=== PATIENT | male | born 1935 | race Caucasian/White ===

== ENCOUNTER 2022-01-18 08:41 | Emergency (ER) | payer OTHER, SELFPAY ==
[2022-01-18 08:52] VITALS: BP 151/90; PULSE 81; RESP 18; TEMP 36.6; O2SAT 95; BMI 35.0
--- NOTE | 2022-01-18 09:52 | ED.GENADULT ---
HPI - General Adult General Chief complaint: Unspecified Complaint, Adult Stated complaint: SPITTING BLOOD UP Time Seen by Provider: 01/18/22 09:27 History of Present Illness HPI narrative: This 86-year-old male comes in reporting spitting up blood at night over the past 3 nights. He states that he also had some episodes of spitting up blood 3 months ago. He did connect with his primary physician and was instructed to come here for evaluation. These symptoms resolved and he did not have any workup done at that time. He states that he feels normal. He denies having any cough and states that this is not hemoptysis but rather coming up from his GI track. He states that he has a mouth full of bright red blood at night. He does not have any such symptoms during the day. He does not take any anticoagulants. He does have an appointment in the [facility] next month. He has not had any weight gain or loss recently. Related Data Home Medications Medication Instructions Recorded Confirmed allopurinol 100 mg tablet mg 01/18/22 pravastatin 40 mg tablet mg 01/18/22 Previous Rx's Medication Instructions Recorded omeprazole 20 mg capsule,delayed 20 mg PO BID #180 caps 12/25/21 release Allergies Allergy/AdvReac Type Severity Reaction Status Date / Time acetaminophen Allergy Verified 01/18/22 08:52 [From Excedrin Extra Strength] aspirin Allergy Verified 01/18/22 08:52 [From Excedrin Extra Strength] caffeine Allergy Verified 01/18/22 08:52 [From Excedrin Extra Strength] Review of Systems Status of ROS: Reports: 10 or more systems reviewed and unremarkable except as noted in History and below Narrative: Constitutional: No fevers, no weight gain or loss. Eyes: No discharge. No vision changes. HENT: No congestion, no sore throat, no ear pain. Cardiovascular: No chest pain, no palpitations. Respiratory: No shortness of breath, no wheezes, no cough. Gastrointestinal: No abdominal pain, no vomiting, no diarrhea. Spitting up blood as described above. Genitourinary: No dysuria, no hematuria. Musculoskeletal: Normal range of motion. Skin: No rashes, no pruritis. Neurological: No dizziness, weakness, sensory change, speech change. Endo/Heme/Allergies: No bruising. No polydipsia. Pysch: no suicidality, no anxiety, no insomnia. All other systems reviewed and are negative. [facility] Medical History (Updated 01/18/22 @ 13:19 by Travon Abbott MD) GERD (gastroesophageal reflux disease) Exam Narrative: Exam Narrative: Constitutional: Well-developed, well-nourished, no acute distress. HEENT: Normocephalic, atraumatic. Neck: Normal range of motion. Nontender. Supple. Heart: Regular. No murmurs. Normal rate. Intact distal pulses. Lungs: Clear to auscultation. No chest discomfort. No wheezes, rhonchi, or rales. Abdomen: Normal bowel sounds. Nontender. No rebound tenderness. Genitalia: Deferred. Back: No midline tenderness. Normal range of motion. Extremities: Normal range of motion. No injury. Skin: Intact. No rash. Warm. No erythema or pallor. Neurologic: No altered sensation. No weakness. Alert and oriented. Psychiatric: No suicidality. No anxiety or depression. No insomnia. Nursing notes and vitals signs are reviewed. Const: Vital Signs, click to edit/add: Vital Signs - 24 hr 01/18/22 08:52 Temperature 97.9 F Pulse Rate [Left P ulse Oximeter] 81 Respiratory Rate 18 Blood Pressure [Ri ght Upper Arm] 151/90 H Pulse Oximetry 95 Oxygen Delivery Me thod Room Air Course Vital Signs Vital signs: Initial Vital Signs Temperature 97.9 F 01/18/22 08:52 Temperature Source Temporal Artery Scan 01/18/22 08:52 Pulse Rate 81 01/18/22 08:52 Respiratory Rate 18 01/18/22 08:52 Blood Pressure 151/90 H 01/18/22 08:52 Blood Pressure Mean 110 01/18/22 08:52 Blood Pressure Position Sitting 01/18/22 08:52 Pulse Oximetry 95 01/18/22 08:52 Oxygen Delivery Method 01/18/22 08:52 Vital Signs Temperature 97.9 F 01/18/22 08:52 Pulse Rate 81 01/18/22 08:52 Respiratory Rate 18 01/18/22 08:52 Blood Pressure 151/90 H 01/18/22 08:52 Pulse Oximetry 95 01/18/22 08:52 Oxygen Delivery Method 01/18/22 08:52 Temperature 97.9 F 01/18/22 08:52 Pulse Rate 81 01/18/22 08:52 Respiratory Rate 18 01/18/22 08:52 Blood Pressure 151/90 H 01/18/22 08:52 Pulse Oximetry 95 01/18/22 08:52 Oxygen Delivery Method 01/18/22 08:52 Medical Decision Making MDM Narrative Medical decision making narrative: This patient comes in reporting spitting up blood at night over the past 3 nights. He had similar symptoms about 3 months ago which spontaneously resolved. Other than this he feels normal. It is unclear whether the blood that he is spitting up is coming from his GI tract or from his respiratory tract. Lab results returned with normal findings except his D-dimer is elevated at 1.3. He then had a CT scan of his chest with IV contrast. There is no evidence of pulmonary embolism but there are some subtle findings that may represent an adenocarcinoma or malignancy. This could account for his spitting up blood at night. He does have a follow-up appointment with pulmonology at the [facility]. I did also arrange for and endoscopy to be done here. He is okay to return home and understands that he should return if worsening symptoms occur. Lab Data Labs: Lab Results 01/18/22 01/18/22 01/18/22 Range/Units 10:11 10:11 10:11 WBC 5.84 (4.50-11.00) K/uL RBC 4.84 (4.30-5.90) m/uL Hgb 14.6 (13.5-17.5) gm/dL Hct 44.9 (37.0-53.0) % MCV 93 (80-100) fL MCH 30 (26-34) pg MCHC 33 (32-36) gm/dL RDW Coeff of Cricket 14.1 (11.5-15.5) % Plt Count 204 (140-440) K/uL Neut % (Auto) 55.0 (42.0-72.0) % Lymph % (Auto) 29.8 (20-44) % [place] % (Auto) 9.2 (0.0-11.0) % Eos % (Auto) 5.3 (0.0-7.0) % Baso % (Auto) 0.2 (0.0-3.0) % Neut # (Auto) 3.21 (1.7-7.0) K/uL Lymph # (Auto) 1.74 (0.90-2.90) K/uL [place] # (Auto) 0.50 (0.00-0.90) K/UL Eos # (Auto) 0.31 (0.00-0.50) K/uL Baso # (Auto) 0.01 (0.00-0.30) K/uL Abs Immat Gran (auto) 0.03 (0.00-0.30) K/uL INR 1.15 H (0.91-1.10) D-Dimer Quant (PE/DVT) 1.30 H (0.00-0.50) ug/ml Sodium 141 (135-149) mmol/L Potassium 4.8 (3.6-5.1) mmol/L Chloride 108 (96-114) mmol/L Carbon Dioxide 25 (20-32) mmol/L BUN 23 (7-30) mg/dL Creatinine 1.2 (0.5-1.5) mg/dL Estimated Creat Clear 42.75 Estimated GFR 59 ml/min Glucose 109 (60-115) mg/dL Calcium 8.5 (8.4-10.6) mg/dL Total Bilirubin 0.4 (0.1-1.5) mg/dL Direct Bilirubin 0.2 (0.0-0.5) mg/dL AST 30 (12-35) U/L ALT 19 (4-50) U/L Alkaline Phosphatase 97 (40-150) U/L C-Reactive Protein < 0.5 L (0.5-1.0) mg/dL Total Protein 7.9 (6.0-8.3) g/dL Albumin 4.1 (3.3-5.0) g/dL Imaging Data CT scan - chest: Radiologist's impression: 1. No pulmonary embolism. 2. Focal ground-glass opacity in the right middle lobe adjacent to a dilated bronchus is nonspecific and could be inflammatory change, but malignancy such as adenocarcinoma is also possible. Discharge Plan Discharge Clinical Impression: Hemoptysis, unspecified Condition: Unchanged Instructions: Hemoptysis (ED) Additional Instructions: Follow-up for endoscopies. The same day surgery clinic will give a call when this can occur. Follow-up as scheduled with pulmonology at the [facility]. Return if worsening symptoms happen. Prescriptions: No Action pravastatin 40 mg tablet Label Comments: TAKE 1 TABLET BY MOUTH DAILY allopurinol 100 mg tablet Label Comments: TAKE 1 TABLET BY MOUTH DAILY omeprazole 20 mg capsule,delayed release(DR/EC) 20 mg PO BID Qty: 180 3RF Follow Up/Referrals: Gael Damico MD [Primary Care Provider] - Stand Alone Forms: [employer] Info Instructions
[2022-01-18 10:47] LABS: Basophils Absolute Auto 0.01 K/uL (0.00-0.30); Basophils Percent Auto 0.2 % (0.0-3.0); Eosinophils Absolute Auto 0.31 K/uL (0.00-0.50); Eosinophils Percent Auto 5.3 % (0.0-7.0); Hematocrit 44.9 % (37.0-53.0); Hemoglobin* 14.6 gm/dL (13.5-17.5); Immature Granulocytes Abs Auto 0.03 K/uL (0.00-0.30); Lymphocytes Absolute Auto 1.74 K/uL (0.90-2.90); Lymphocytes Percent Auto 29.8 % (20-44); Mean Corpuscular HGB Conc 33 gm/dL (32-36); Mean Corpuscular Hemoglobin 30 pg (26-34); Mean Corpuscular Volume 93 fL (80-100); Monocytes Percent Auto 9.2 % (0.0-11.0); Neutrophils Absolute Auto 3.21 K/uL (1.7-7.0); Platelet Count* 204 K/uL (140-440); RDW Coefficient of Variation % 14.1 % (11.5-15.5); Red Blood Count 4.84 m/uL (4.30-5.90); White Blood Count* 5.84 K/uL (4.50-11.00)
[2022-01-18 10:48] LABS: Slide Review Reflex No
[2022-01-18 11:00] LABS: Albumin* 4.1 g/dL (3.3-5.0); Chloride* 108 mmol/L (96-114); Sodium* 141 mmol/L (135-149)
[2022-01-18 11:01] LABS: Potassium* 4.8 mmol/L (3.6-5.1)
[2022-01-18 11:03] LABS: Carbon Dioxide* 25 mmol/L (20-32); Creatinine* 1.2 mg/dL (0.5-1.5); Est. Creatinine Clearance* 42.75; Estimated Glomerular Filt Rate 59 ml/min
[2022-01-18 11:04] LABS: Alanine Aminotransferase* 19 U/L (4-50); Alkaline Phosphatase* 97 U/L (40-150); Aspartate Amino Transferase* 30 U/L (12-35); Bilirubin Direct* 0.2 mg/dL (0.0-0.5); Bilirubin Total* 0.4 mg/dL (0.1-1.5); Blood Urea Nitrogen* 23 mg/dL (7-30); Calcium* 8.5 mg/dL (8.4-10.6); Glucose* 109 mg/dL (60-115); Total Protein* 7.9 g/dL (6.0-8.3)
[2022-01-18 11:08] LABS: C Reactive Protein* < 0.5 mg/dL (0.5-1.0)
[2022-01-18 11:29] LABS: INR 1.15 (0.91-1.10); Prothrombin Time 15.2 Seconds
--- NOTE | 2022-01-18 11:49 | CRLHL7_ITS ---
For Patients: As a result of the Century Cures Act, medical imaging exams and procedure reports are released immediately into your electronic medical record. You may view this report before your referring provider. If you have questions, please contact your health care provider. INDICATION: Elevated D-dimer, spitting up blood. TECHNIQUE: CT chest PE was acquired with 95 mL Isovue 370 IV contrast. Coronal and sagittal reformats were generated. COMPARISON: None. FINDINGS: Pulmonary arteries: The quality of enhancement of the pulmonary arteries is adequate. No filling defects to suggest pulmonary emboli. No findings of pulmonary artery hypertension. Thyroid: Unremarkable. Thoracic lymph nodes: No enlarged supraclavicular, mediastinal, hilar, or axillary lymph nodes. Calcifications in the hilar and subcarinal regions are probably calcified lymph nodes. Mediastinum and esophagus: Small sliding hiatal hernia. Heart and vasculature: Unremarkable. Lungs: Patchy ground-glass opacity in the right middle lobe lies along a dilated bronchus. No focal consolidations. Calcified granulomas in the left lower lobe. Pleura: Unremarkable. Chest wall: Small focus of fat density in the left pectoralis major muscle is probably an intramuscular lipoma. Upper abdomen: No acute or significant findings. Bones: Unremarkable for age. IMPRESSION: 1. No pulmonary embolism. 2. Focal ground-glass opacity in the right middle lobe adjacent to a dilated bronchus is nonspecific and could be inflammatory change, but malignancy such as adenocarcinoma is also possible. Please note that all CT scans at this facility use dose modulation, iterative reconstruction, and/or weight-based dosing when appropriate to reduce radiation dose to as low as reasonably achievable. Dictated by Blake Taveras MD @ 01/18/2022 12:52:50 PM (Electronically Signed)
[2022-01-18 13:46] VITALS: BP 148/88; PULSE 78; RESP 18; O2SAT 96
== END 2022-01-18 13:50 | disposition home or self-care (01) ==
PROVIDERS: Emergency Provider Emergency Medicine Emergency Medical Services; PCP Family Medicine
DX: R04.2 Hemoptysis (principal)
CPT/HCPCS: 36415; 71260; 80048; 80076; 85025; 85379; 85610; 86140; 99285; Q9967

== ENCOUNTER 2022-01-21 12:13 | Outpatient (CLI) | payer OTHER, MEDICARE, SELFPAY | END 2022-01-21 12:14 | disposition home or self-care (01) | LOC: OP CLINIC 12:14 | PROVIDERS: PCP Family Medicine; Visit Provider Surgery | DX: K31.89 Other diseases of stomach and duodenum (principal); K44.9 Diaphragmatic hernia without obstruction or gangrene | CPT/HCPCS: 43239; 88305; J2250; J3010 ==

== ENCOUNTER 2022-02-19 11:33 | Outpatient (CLI) | payer OTHER, SELFPAY ==
[2022-02-19 13:18] LABS: INR 0.96 (0.91-1.10); Prothrombin Time 13.1 Seconds
[2022-02-19 13:19] LABS: Partial Thromboplastin Time* 36 Seconds (23-33)
--- NOTE | 2022-02-27 15:01 | ONC.NURNOTE ---
Addendum entered by Eileen Encarnacion RN 03/24/22 10:56: Patient called to cancel his appointment with us. Per his provider in [place], a hematology referral is not needed. Per patient, [place] is in contact with Dr. Callaway. Addendum entered by Eileen Encarnacion RN 03/05/22 09:25: LMOM for patient to call our office for an appointment on 03/03/2022 and 03/05/2022. Per Rosina with Dr. Lakhani patient okay to wait until April for hematology appointment. Original Note: Received referal from ENT. Went through information with Dr. Hernandez today and due to her availability, patient would not be seen until April. Looking at [facility] availability, found the same. LM with [facility] to find out if Dr. Callaway is okay with this wait, or if patient should go elsewhere.
== END 2022-02-19 11:34 | disposition home or self-care (01) ==
PROVIDERS: PCP Family Medicine; Visit Provider Otolaryngology
DX: Z00.00 Encounter for general adult medical examination without abnormal findings (principal); R04.2 Hemoptysis
CPT/HCPCS: 85610; 85730

== ENCOUNTER 2022-02-24 12:05 | Outpatient (CLI) | payer OTHER, SELFPAY ==
--- OUTSIDE RECORDS SUMMARY | 2022-02-24 12:15 | XMS_ITS | Encounter Summary ---
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] Procedures MI BRONCH DX W CELL WASH FLUOR MI BRONCHOSCOPY W ALVEOLAR LAVAGE MI BRONCHOSCOPY W BX >=1 SITE BRONCHOSCOPY FLEXIBLE BRONCHOSCOPY FLEXIBLE: BRONCHOALVEOLAR LAVAGE - IMMUNOCOMPROMISED HOST OR NON- IMMUNOCOMPROMISED HOST BRONCHOSCOPY FLEXIBLE: INSPECTION AIRWAY - BIOPS Y VISIBLE LESIONS Referral ID Status Reason Start Date Expiration Date Visits Requ ested Visits Authorized [id number] 1 1 Encounter Details Date Type Department Care Team Description 01/28/2022 Anesthesia Event RST ROMB MAIN OR Coral Harding APRN, GREEN PRIZE PACKER [address] [place] [id number] [facility] Rancho Girard M.D. [address] [place] [id number] [place] [phone] Anesthesia Record Procedure Summary Procedure Name Responsible Anesthesia Start Anesthesia Stop Anesthesiologist Time Time 10:45am appt. Coral Harding APRN, 01/28/22 1004 01/28/22 1032 BRONCHOSCOPY FLEXIBLE. GREEN PRIZE PACKER Events Date Time Event Comment 01/28/2022 1004 An Start Machine/Equipmen t Checked Infection Precautions Foll owed Procedure/Site Verified NPO Sta tus Verified Supine Standard ASA Mon itors Applied 1010 An Induction 1013 Proc Start 1016 An Intubation 1016 Turnover to Proceduralist 1018 Proc Fin 1019 Turnover to ANE Staff 1025 Airway Removal Criteria Met 1025 Extubation/Airway Removed 1027 an stop data 1032 An End I completed my h andoff to the receiving staff during [facility] we 1. Identified the patient 2. Ident ified the responsible provider 3. Revi ewed the pertinent medical history 4. Discussed the surgical course 5. Review ed intra-op anesthesia management and i ssues during anesthesia 6. Set expectati ons for post-procedure period 7. Allowe d opportunity for questions and ac knowledgement of understanding. Name Total fentanyl injection 50 mcg/mL 50 mcg lidocaine 2% (mg) injection 60 mg propofol 10 mg/mL 30 mg propofol 10 mg/mL infusion 26.78 mg ondansetron 4 mg/2 mL injection 4 mg Lactated Ringers Free Drip 200 mL Agents No agents on file. Blood No blood administrations on file. Lines, Drains, and Airways Type Details Placement Removal Peripheral IV Placement Date: 01/28/22; 01/28/22 08 by Chas, 01/28/22 110 by Placement Time: 851; Leann Jacinto, Catheter Size: 20 G; R.N. Orientation: Anterior, Left, Lower; Location: Forearm; Site Prep: Chlorhexidine (Preferred); Technique: Anatomical landmarks; Inserted by: DANA; Insertion Attempts: 1; Removal Date: 01/28/22; Removal Time: 110; Removal Reason: Patient discharged documented in this encounter Social History Tobacco Use Types Packs/Day Years Used Date Smoking Tobacco: Former Cigarettes Quit : 06/15/1989 Smokeless Tobacco: Never Alcohol Use Standard Drinks/Week Comments Yes 3 (1 standard drink = 0.6 oz pure alcoho l) Alcohol Habits Answer Date Recorded How often do you have a drink containing alcohol? 2-4 times a month 02/21/2022 How many drinks containing alcohol do you have on a 1 or 2 02/21/2022 typical day when you are drinking? How often do you have six or more drinks on one Never 02/21/2022 occasion? Comment: Not asked Social Isolation Answer Date Recorded In a typical week, how many times do you More than three kayode es a week 02/21/2022 talk on the phone with family, friends, or neighbors? How often do you get together with friends Twice a week 02/21/2022 or relatives? How often do you attend zoroastrian or Patient refused 2021 scientologist services? Do you belong to any clubs or No 02/21/2022 organizations such as zoroastrian groups, unions, fraternal or athletic groups, or school groups? How often do you attend meetings of the Never 02/21/2022 clubs or organizations you belong to? Are you now , , , 02/21/2022 , never or living with a partner? Physical Activity Answer Date Recorded On average, how many days per week do you engage in moderate to 1 day 02/21/2022 strenuous exercise (like walking fast, running, jogging, dancing, swimming, biking, or other activities that cause a light or heavy sweat)? On average, how many minutes do you engage in exercise at th is 10 min 02/21/2022 level? Stress Answer Date Recorded Do you feel stress - tense, restless, nervous, or Only a lit tle 02/21/2022 anxious, or unable to sleep at night because your mind is troubled all the time - these days? Financial Resource Strain Answer Date Recorded How hard is it for you to pay for the very basics like Not h brandon at all 02/21/2022 food, housing, medical care, and heating? Intimate Partner Violence Answer Date Recorded Within the last year, have you been afraid of your partner o r No 02/21/2022 ex-partner? Within the last year, have you been humiliated or emotionall y No 02/21/2022 abused in other ways by your partner or ex-partner? Within the last year, have you been kicked, hit, slapped, or No 02/21/2022 otherwise physically hurt by your partner or ex-partner? Within the last year, have you been raped or forced to have any No 02/21/2022 kind of sexual activity by your partner or ex-partner? Food Insecurity Answer Date Recorded Within the past 12 months, you worried that your food would Never true 02/21/2022 run out before you got money to buy more. Within the past 12 months, the food you bought just didn't N ever true 02/21/2022 last and you didn't have money to get more. Transportation Needs Answer Date Recorded In the past 12 months, has lack of transportation kept you f rom No 02/21/2022 medical appointments or from getting medications? In the past 12 months, has lack of transportation kept you f rom No 02/21/2022 meetings, work, or getting things needed for daily living? Housing Stability Answer Date Recorded In the last 12 months, was there a time when you were not ab le No 02/21/2022 to pay the mortgage or rent on time? In the last 12 months, how many places have you lived? 1 02/21/2022 In the last 12 months, was there a time when you did not hav e a No 02/21/[address] to [address] or slept in a retirement (including now)? Sex Assigned at Date Recorded Male 02/18/2022 8:06 PM CDT documented as of this encounter OR Notes Anesthesia Postprocedure Evaluation - Coral Harding APRN, CRNA - 01/28/2022 10:36 AM CDT Patient: Zaid Rutledge Procedure Summary Date: 01/28/22 Room / Location: [address] 01 [facility] / [facility] in [place], [place] Anesthesia Start: 1004 Anesthesia Stop: 1032 Procedures: 10:45am appt. BRONCHOSCOPY FLEXIBLE. BRONCHOSCOPY FLEXIBLE, INSPECTION AIRWAY, BIOPSY VISIBLE LESIONS. Diagnosis: Chronic Cough (Chronic Cough [R05.3].) Providers: George Benito M.D. Responsible Provider: Coral Harding APRN, CRNA Anesthesia Type: general ASA Status: 3 Anesthesia Type: general Last vitals Vitals Value Taken Time BP Temp Pulse Resp SpO2 Please reference Vitals flowsheet for most recent vital signs. Anesthesia Post Evaluation Patient Disposition: dismissal Cardiovascular status: hemodynamics (HR & BP) acceptable Respiratory status: patent airway with spontaneous effort Temperature: normothermic Oxygen requirements: room air Level of consciousness: awake Pain score: pain adequately controlled and/or at baseline Post Op nausea/vomiting: none Hydration status: euvolemic Anesthesia Preprocedure Evaluation - Rancho Girard M.D. - 01/28/2022 5:45 AM CDT Preprocedure Anesthesia & H&P Assessment Procedure Summary Date/Time: 01/28/22 0943 Procedures: 10:45am appt. BRONCHOSCOPY FLEXIBLE. BRONCHOSCOPY FLEXIBLE, BRONCHOALVEOLAR LAVAGE - IMMUNOCOMPROMISED HOST VS NON- IMMUNOCOMPROMISED HOST. BRONCHOSCOPY FLEXIBLE, INSPECTION AIRWAY, BIOPSY VISIBLE LESIONS. Diagnosis: Chronic Cough [R05.3] Pre-op diagnosis: Chronic Cough [R05.3]. Location: [place] [address] / [facility] in [place], [place] Providers: George Benito M.D. Pertinent components of the patient's history including current problem list, medical history, surgical history, family history, social history, medications and allergies were reviewed. Present illnessand pre-op diagnosis were confirmed. The planned surgery / procedure was verified with the patient /legal guardian. The patient's general health condition remains unchanged RELEVANT COMORBID CONDITIONS No relevant active problems OBJECTIVE PHYSICAL EXAMINATION Airway (HEENT) Mallampati: III TM Distance: >3 FB Neck ROM: Limited Mouth Opening: >3 cm Upper Lip Bite Test Class: II Facies (pediatrics): normal Cardiovascular Rhythm: Regular Rate: Normal Cardiovascular Assessment: cardiovascular normal Functional Capacity: >4 METS Pulmonary Pulmonary Assessment: Clear General / Constitutional Constitutional Assessment: Generalized obesity General State of Health:: healthy appearing Neurological Normal Dental Normal ASSESSMENT / PLAN ANESTHESIA PLAN ASA: 3 Anesthesia Plan: MAC Patient seen and allergies reviewed; anesthesia plan and risks discussed directly with patient / legal guardian, or through an lang interpreter; patient evaluated and approved for anesthesia / sedation Risks/Benefits/Alternatives of Blood transfusion discussed with patient / legal guardian, including an opportunity to ask questions and/or decline some or all transfusion therapies. The patient / legalguardian consented to the use of all blood products, as deemed medically necessary Approval to Proceed: approved for anesthesia documented in this encounter Plan of Treatment Not on filedocumented as of this encounter Visit Diagnoses Not on filedocumented in this encounter Administered Medications Inactive Administered Medications - up to 3 most recent administrations Medication Order MAR Action Action Date Dose Rate Site fentaNYL injection (SUBLIMAZE) Given 01/28/2022 10:10 AM CDT 50 mcg intravenous, As needed, Starting on Thu01/28/22 at 1010, Anesthesia Intra-op lactated ringers New Bag 01/28/2022 10:04 AM CDT intravenous, Continuous Infusion: Per Instructions PRN, Starting on Thu01/28/22 at 1004, Anesthesia Intra-op lidocaine (PF) (cardiac) injection Given 01/28/2022 10:10 AM CDT 60 mg intravenous, As needed, Starting on Thu01/28/22 at 1010, Anesthesia Intra-op ondansetron (PF) injection (ZOFRAN) Given 01/28/2022 10:17 AM CDT 4 mg intravenous, As needed, Starting on Thu01/28/22 at 1017, Anesthesia Intra-op propofol 10 mg/mL infusion New Bag 01/28/2022 10:09 125 mcg/kg/min 80.325 mL/hr (DIPRIVAN) AM CDT intravenous, Continuous Infusion: Per Instructions PRN, Starting on Thu01/28/22 at 1009, Anesthesia Intra-op propofoL injection (DIPRIVAN) Given 01/28/2022 10:14 AM CDT 30 mg intravenous, As needed, Starting on Thu01/28/22 at 1014, Anesthesia Intra-op documented in this encounter Care Teams Roving Department Supervisor Relationship Specialty Start Date End Date Elsewhere, Pcp PCP - General Internal Medicine 01/22/22 Gael Mcguire Primary Team Training Manager 01/22/22 [facility] documented as of this encounter
--- OUTSIDE RECORDS SUMMARY | 2022-02-24 12:15 | XMS_ITS | Encounter Summary ---
:1935 Author Organization [facility] Address [address] [place] [address] Care Team Providers Name Role Phone Elsewhere, Pcp Primary Care Provider Unavailable Reason for Visit Reason Comments Coughing Up Blood Encounter Details Date Type Department Care Team Description 02/07/2022 Clinical Communication Division of Anuradha, Cough ing Up Blood [facility] [place] [address] [address] [facility] [address] [place] [phone] Social History Tobacco Use Types Packs/Day Years [...] or relatives? How often do you attend mandaen or Patient refused 2021 islam services? Do you belong to any clubs or No 02/21/2022 organizations such as mandaen groups, unions, fraternal or athletic groups, or [...] place to sleep or slept in a prison (including now)? Sex Assigned at Date Recorded Male 02/18/2022 8:06 PM CDT documented as of this encounter Miscellaneous Notes Telephone Encounter - Ramses Betts R.N. - 02/07/2022 8:56 AM CDT Information Discussed Patient called and is coughing up a 1/2 cup of blood in the middle of [place] post bronchoscopy. Recommended they report to the nearest ED. Message to be sent to Anuradha for her review up on her return. PLAN Disposition/Recommendation: recommended to report to the nearest emergency department Information/Education: patient/caller able to teach back Caller agreeable to plan of care: yes The following references were used: nursing clinical judgement Telephone Encounter - Deja Paz - 02/07/2022 8:38 AM CDT Call Message Received Caller: Spouse: Corie Callback: Message: Spouse called and they are traveling to [place]. They are currently in the middle of [place]. Patient is coughing up blood (about 1/2 cup) Had Bronch done on 01/28 and had a little bleeding after, but today is the most he's spit up. No temp. No other pain. Action Requested: Callback ayush please. Wondering if they should turn around and come home or OK to continue travel and what's normal Additional Notes: Dr. Ling on Comp today. Nursing/DOD please call patient and back. CHELA Short /[id number] documented in this encounter Plan of Treatment Not on filedocumented as of this encounter Visit Diagnoses Not on filedocumented in this encounter Care Teams Party Plan Sales Unit Advisor Relationship Specialty Start Date End Date Elsewhere, Pcp PCP - General Internal Medicine 01/22/22 Gael Mcguire Primary Team Quality Auditor 01/22/22 [facility] documented as of this encounter
--- OUTSIDE RECORDS SUMMARY | 2022-02-24 12:15 | XMS_ITS | Encounter Summary ---
:1935 Author Organization [facility] Address [address] [place] [address] Care Team Providers Name Role Phone Elsewhere, Pcp Primary Care Provider Unavailable Reason for Visit Reason Comments Release of Information Encounter Details Date Type Department Care Team Description 02/06/2022 Clinical Communication Division of Katya Ling se of Pulmonary Medicine Hayder Ngo on in [facility] [address] [facility] [address] [place] [phone] Social History Tobacco Use Types Packs/Day Years [...] or relatives? How often do you attend catholic or Patient refused 2021 methodist services? Do you belong to any clubs or No 02/21/2022 organizations such as catholic groups, unions, fraternal or athletic groups, or [...] place to sleep or slept in a chcf (including now)? Sex Assigned at Date Recorded Male 02/18/2022 8:06 PM CDT documented as of this encounter Miscellaneous Notes Telephone Encounter - Fabian Parham - 02/06/2022 4:44 PM CDT Pulmonary Note: Call Message Caller: Family Member: Spouse and patient Preferred contact: Authorized: Yes Message: Patient would like their records and testing sent to Dr. Callaway at [facility]. Elijah Callaway MD [facility] [address] [place] [id number] . Action Requested: Send records from procedures, testing and Additional Notes: See letters tab for release. documented in this encounter Plan of Treatment Not on filedocumented as of this encounter Visit Diagnoses Not on filedocumented in this encounter Care Teams Cement Conveyor Operator Relationship Specialty Start Date End Date Elsewhere, Pcp PCP - General Internal Medicine 01/22/22 Gael Mcguire Primary Team [employer] 01/22/22 [facility] documented as of this encounter
--- OUTSIDE RECORDS SUMMARY | 2022-02-24 12:15 | XMS_ITS | Encounter Summary ---
:1935 Author Organization [facility] Address [address] [place] [address] Care Team Providers Name Role Phone Elsewhere, Pcp Primary Care Provider Unavailable Encounter Details Date Type Department Care Team Description 02/14/2022 Orders Only RST CCM Reagan Ling, [address] [place] [address] [place] [phone] (Wo rk) Social History Tobacco Use Types Packs/Day Years [...] or relatives? How often do you attend gnosticism or Patient refused 2021 hinduism services? Do you belong to any clubs or No 02/21/2022 organizations such as gnosticism groups, unions, fraternal or athletic groups, or [...] place to sleep or slept in a alf (including now)? Sex Assigned at Date Recorded Male 02/18/2022 8:06 PM CDT documented as of this encounter Plan of Treatment Not on filedocumented as of this encounter Visit Diagnoses Not on filedocumented in this encounter Care Teams Maintenance Tech Relationship Specialty Start Date End Date Elsewhere, Pcp PCP - General Internal Medicine 01/22/22 Gael Mcguire Primary Team Manager Real Estate 01/22/22 [facility] documented as of this encounter
--- OUTSIDE RECORDS SUMMARY | 2022-02-24 12:15 | XMS_ITS | Encounter Summary ---
:1935 Author Organization [facility] Address [address] [place] [address] Care Team Providers Name Role Phone Elsewhere, Pcp Primary Care Provider Unavailable Encounter Details Date Type Department Care Team Description 02/14/2022 Orders Only Division of Pulmonary Reagan Ling Ch Cough (Primary Medicine in [facility] [place] [address] [address] [facility] [address] [place] [phone] Social History Tobacco Use Types Packs/Day Years [...] or relatives? How often do you attend mormon or Patient refused 2021 christian services? Do you belong to any clubs or No 02/21/2022 organizations such as mormon groups, unions, fraternal or athletic groups, or [...] place to sleep or slept in a group home (including now)? Sex Assigned at Date Recorded Male 02/18/2022 8:06 PM CDT documented as of this encounter Plan of Treatment Not on filedocumented as of this encounter Visit Diagnoses Diagnosis Chronic Cough - Primary documented in this encounter Care Teams Frontend Engineer Relationship Specialty Start Date End Date Elsewhere, Pcp PCP - General Internal Medicine 01/22/22 Gael Mcguire Primary Team Spray Painter 01/22/22 [facility] documented as of this encounter
--- OUTSIDE RECORDS SUMMARY | 2022-02-24 12:15 | XMS_ITS | Encounter Summary ---
:1935 Author Organization [facility] Address [address] [place] [address] Care Team Providers Name Role Phone Elsewhere, Pcp Primary Care Provider Unavailable Reason for Visit Reason Comments Rhinoscopy Encounter Details Date Type Department Care Team Description 02/14/2022 Clinical Communication Division of Pulmonary Reagan Ling Rhinoscopy Medicine in , [facility] [place], [place] [address] [facility] [address] [place] [phone] Social History Tobacco Use Types Packs/Day Years [...] or relatives? How often do you attend sabianist or Patient refused 2021 confucianism services? Do you belong to any clubs or No 02/21/2022 organizations such as sabianist groups, unions, fraternal or athletic groups, or [...] place to sleep or slept in a residential (including now)? Sex Assigned at Date Recorded Male 02/18/2022 8:06 PM CDT documented as of this encounter Miscellaneous Notes Telephone Encounter - Sarwat Burgos - 02/19/2022 11:51 AM CDT Patient had Rhinoscopy done locally today. The notes are being faxed over, I'll let you know when received. noted that nothing was found. She asked if it would be possible to do a virtual visit onWednesday 02/21 instead of them driving down here in person. Telephone Encounter - Sarwat Burgos - 02/18/2022 8:15 AM CDT Patient's called stating the patient was now bleeding from the mouth daily. I did connect her with the front office representative to schedule their rhinoscopy on Wednesday 02/21. They wondered if they might be able tofollow up with you on that same day. They would like to speak with you regarding all of this. . Telephone Encounter - Sarwat Burgos - 02/14/2022 3:46 PM CDT Pulmonary Note: Call Message Caller: Family Member: - Corie Preferred contact: Authorized: No auth on file Diagnosis: #1 Spitting up blood , Query Hemoptysis #2 Chronic Cough #3 Shortness Of Breath Last Appointment: 01/23/22 Message: Patient's called regarding the Rhinoscopy that you requested they do. They cannot finda local doctor to perform the procedure within a reasonable time (booked for weeks). They stated they would like to return to [place] for the procedure. It seems a new order will be needed. They also ask if they might be able to follow up with you. stated patient is still bleeding from the mouth and they would like to have this done ayush. Action Requested: Place order for Rhinoscopy and Follow up, prefer next week anytime. Let schedulingknow when orders are placed. Additional Notes: documented in this encounter Plan of Treatment Not on filedocumented as of this encounter Visit Diagnoses Not on filedocumented in this encounter Care Teams Bi Report Developer Relationship Specialty Start Date End Date Elsewhere, Pcp PCP - General Internal Medicine 01/22/22 Gael Mcguire Primary Team Soda Drier Feeder 01/22/22 [facility] documented as of this encounter
--- OUTSIDE RECORDS SUMMARY | 2022-02-24 12:15 | XMS_ITS | Clinical Summary ---
:1935 Author Organization [facility] Address [address] [place] [address] Care Team Providers Name Role Phone Elsewhere, Pcp Primary Care Provider Unavailable Source Comments Patient records contain information from all sites at [facility]. For routine questions regarding patient records, call [phone] during business hours, M-F 8:00 AM - 5:00 PM Central Time. Record requests for emergency care only can be directed to [phone] at any time.[facility] Allergies Active Allergy Reactions Severity Noted Date Comments Acetaminophen-Caffeine Anaphylaxis 06/21/2007 Exced rin Excedrin Gkvmcds-Dddhehvxcgfqv-P Anaphylaxis High 01/16/2016 affeine Banana Other (see comments) 08/01/2013 Throat swelling, wheezing Also a voids melons, Bee Pollen Other (see comments) 12/31/2020 Itchy w atery eyes, wheezing Food Allergy Formula Edema 12/31/2020 Musk me dejuan, water melon Levofloxacin Other (see comments) 02/26/2018 Hamstri ng tendonitis Mold Shortness of breath High 04/28/2018 [place] Anaphylaxis High 08/28/2017 Watermelon Anaphylaxis High 08/28/2017 Medications Medication Sig Dispensed Refills Start Date End Date Status acetaminophen Take 2 tablets 0 09/18/2010 Active (TYLENOL) 500 mg by mouth. tablet diphenhydrAMINE-acetam Take 2 tablets 0 Active inophen (TYLENOL PM) by mouth at 25-500 mg per tablet bedtime. albuterol 90 Inhale 2 puffs 0 02/09/2014 A ctive mcg/actuation inhaler every 4 (four) hours as needed. allopurinoL (ZYLOPRIM) Take 1 tablet 0 02/23/2012 Active 100 mg tablet by mouth daily. aspirin [address] Take 1 tablet 0 01/04/2021 Active tablet by mouth. cholecalciferol Take 1 capsule 0 12/28/2009 Active (VITAMIN D3) 25 mcg by mouth daily. (1,000 Unit) capsule cyanocobalamin Inject 1,000 0 03/01/2018 A ctive (VITAMIN B12) 1,000 mcg mcg/mL injection intramuscularly . cyanocobalamin Take 1 tablet 0 04/21/2019 Active (VITAMIN B12) 1,000 by mouth daily. mcg tablet docosahexaenoic Take 1 g by 0 Ac tive acid-epa 120-180 mg mouth. capsule dorzolamide (TRUSOPT) 1 drop. 0 09/18/2010 Active 2 % ophthalmic solution fluticasone Inhale 1 puff. 0 09/16/2016 Ac tive propion-salmeteroL (Advair HFA) 45-21 mcg/actuation inhaler fluticasone propionate 1 spray. 0 12/09/2000 Active (FLONASE) 50 mcg/actuation nasal spray fluticasone propionate Inhale 1 puff 2 0 05/29/2011 Active (FLOVENT DISKUS) 100 (two) times a mcg/actuation diskus day. inhaler montelukast Take 10 mg by 0 12/24/2009 Act chris (SINGULAIR) 10 mg mouth. tablet omeprazole (PriLOSEC) TAKE ONE 0 06/30/[address] capsule CAPSULE BY MOUTH TWICE DAILY ONE HOUR BEFORE MEALS pravastatin Take 1 tablet 0 06/13/2021 Act chris (PRAVACHOL) 40 mg by mouth at tablet bedtime. NON FORMULARY Take 1 tablet 0 Ac tive by mouth. Pseudoephedrine -guaiFENesin (MUCINEX D OR) albuterol 0.166 mg/mL Inhale. 0 07/22/2010 Active continuous nebulization vit A/vit C/vit Take by mouth. 0 Active E/zinc/copper (ICAPS AREDS ORAL) ibuprofen Take 400 mg by 0 Activ e (ADVIL,MOTRIN) 400 mg mouth every 6 tablet (six) hours as needed for pain. allopurinoL (ZYLOPRIM) Take by mouth. 0 07/22/2010 Active 100 mg tablet cefdinir (OMNICEF) 300 Take 1 capsule 10 capsule 0 01/31/2022 02/05/2022 mg capsule (300 mg total) by mouth 2 (two) times a day before breakfast and dinner for 5 days. Active Problems Problem Noted Date Chronic Obstructive Pulmonary Disease 01/28/2022 Encounters Date Type Specialty Care Team Description 02/21/2022 Telemedicine Pulmonary Medicine Dionna Ling C anahy Shipman, (Primary Dx) ValentinBKeshavS. 02/14/2022 Orders Only Pulmonary Medicine Dionna Ling C anahy Shipman, (Primary Dx) JoseSKeshav 02/14/2022 Orders Only Critical Care Addis Ling M.B.B.S. 02/14/2022 Clinical Pulmonary Medicine Anuradha, Rhinoscop y Communication Jose NgoS. 02/07/2022 Clinical Pulmonary Medicine Anuradha, Coughing Up Blood Communication Jose NgoS. 02/06/2022 Clinical Pulmonary Medicine Anuradha, Release o f Communication Reagan Shipman, Information JoseS. 01/31/2022 Orders Only Pulmonary Medicine Reagan Ling M.B.B.S. 01/29/2022 Documentation Pulmonary Medicine Reagan Ling M.B.B.S. 01/28/2022 Anesthesia Event Coral Harding APRN, CRNA Weingarten, Toby N, M.D. 01/28/2022 Surgery George Benito, 10:45am appt. Dwain BRONCHOSCOPY FLEXIBLE. 01/28/2022 Hospital Encounter George Benito, Chronic Obstructive Pulmonary Disease (HCC) (Primary Dx); Dwain Chronic Cough Baron Paris M.D. 01/23/2022 Hospital Encounter Cardiovascular Guera Lingne ss Of Breath Disease Jose NgoSKeshav 01/23/2022 Hospital Encounter Laboratory Medicine Alexei Ling ronjose Cough Jose NgoSKeshav 01/23/2022 Comprehensive Visit Pulmonary Medicine Odeyemi, Ch ronic Cough (Primary Dx); Reagan Shipman, Shortness Of Br gaviota HansonBKeshavSKeshav 01/23/2022 Clinical Pulmonary Medicine JIMMY Ling st Communication Jose NgoSKeshav 01/22/2022 Clinical Admitting/Central Intake Ass essment Communication Scheduling from Last 3 Months Social History Tobacco Use Types Packs/Day Years Used Date Smoking Tobacco: Former Cigarettes Quit : 06/15/1989 Smokeless Tobacco: Never Tobacco Cessation: Counseling Given: Not Answered Alcohol Use Standard Drinks/Week Comments Yes 3 [...] or relatives? How often do you attend hinduism or Patient refused 2021 orthodox services? Do you belong to any clubs or No 02/21/2022 organizations such as hinduism groups, unions, fraternal or athletic groups, or [...] place to sleep or slept in a halfway (including now)? Education Answer Date Recorded What is the highest level of Professional school degree (e.g ., , 02/18/2022 school you have completed or the DDS, DVM, KIMO) highest degree you have received? Sex Assigned at Date Recorded Male 02/18/2022 8:06 PM CDT Last Filed Vital Signs Vital Sign Reading Time Taken Comments Blood Pressure 104/72 01/28/2022 10:45 AM CDT Pulse 70 01/28/2022 11:00 AM CDT Temperature 36.5 ??C (97.7 ??F) 01/28/2022 8:40 AM CDT Respiratory Rate 12 01/28/2022 11:00 AM CDT Oxygen Saturation 96% 01/28/2022 11:00 AM CDT Inhaled Oxygen Concentration - - Weight 107 kg (236 lb 1.8 oz) 01/28/2022 7:58 AM CDT Height 170.2 cm (5' 7) 01/28/2022 7:58 AM CDT Body Mass Index 36.98 01/28/2022 7:58 AM CDT Plan of Treatment Health Maintenance Due Date Last Done Comments DTaP,Tdap,and Td Vaccines (2 - Td 02/27/2021 02/27/2011 or Tdap) Depression Screening (Annual 06/15/2021 PHQ-2) Fall Risk Screen (Annual) 06/15/2021 Influenza Vaccine (#1) 2022 04/09/2021, 05/01/2020, 05/01/2020, Additional history exists Pneumococcal vaccine (65+ years) Completed 03/25/2016, 02/2008, 10/21/1995 Zoster Vaccines Completed 02/26/2018, 11/13/2017, 04/01/2013 COVID-19 Vaccine Completed 12/24/2021, 03/22/2021, 08/06/2020, Additional history exists Medical Devices Implanted Type Area Inorganic Chemical Technician Device Shelf Model / Identifier Expiration Serial / Date Lot Knee Implant Knee Implant Left: Knee Procedures Procedure Name Priority Date/Time Associated Comments Diagnosis BACTERIAL CULTURE, Routine 01/28/2022 10:16 Resul ts for this AEROBIC + SUSC, RESP AM CDT procedu re are in the results section. MYCOBACTERIAL CULTURE, Routine 01/28/2022 10:16 Chronic Cough V AM CDT FUNGAL SMEAR Routine 01/28/2022 10:16 Chronic Cough Results fo r this AM CDT procedure are i n the results section. ACID FAST SMEAR FOR Routine 01/28/2022 10:16 Chronic Cough Res ults for this MYCOBACTERIUM AM CDT procedure are in the results section. FUNGAL CULTURE, Routine 01/28/2022 10:16 Chronic Cough Results for this ROUTINE AM CDT procedure are i n the results section. 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 SARS CORONAVIRUS 2, Routine 01/23/2022 12:53 PM Chronic Cough Results for this MOLECULAR DETECTION, CDT procedu re are in PCR, VARIES the results section. NT-PRO B-TYPE Routine 01/23/2022 12:10 PM Chronic Cough Result s for this NATRIURETIC PEPTIDE CDT procedur e are in (BNP), S the results section. CBC WITHOUT Routine 01/23/2022 12:10 PM Chronic Cough Results for this DIFFERENTIAL, B CDT procedure ar e in the results section. CREATININE WITH EGFR, Routine 01/23/2022 12:10 PM Chronic Coug h Results for this S/P CDT procedure are i n the results section. ECG Routine 01/23/2022 11:43 AM Chronic Cough Results for this CDT procedure are i n the results section. OUTSIDE CT BODY Routine 01/18/2022 12:20 PM Resul ts for this CDT procedure are i n the results section. from Last 3 Months Results (ABNORMAL) Bacterial Culture, Aerobic + Susc, Resp (01/28/2022 10:16 AM CDT) Component Value Ref Test Analysis Performed At [facility] gist Range Method Time Signature Bacterial With upper 01/31/2022 DTL Culture, respiratory/oral 2:39 PM CDT Aerobic, Resp microbiota (A) Bacterial STAPHYLOCOCCUS AUREUS 01/31/2022 DTL Culture, 1+ 2:39 PM CDT Aerobic, Resp (A) Bacterial KLEBSIELLA OXYTOCA/RAOULTELLA ORNITHINOLYTICA/PLANTICOLA 01/31/2022 DTL Culture, 1+ 2:39 PM CDT Aerobic, Resp (A) Specimen (Source) Anatomical Collection Method Collection Time Re ceived Time Location / / Volume Laterality Bronchial Washing 01/28/2022 10:16 08/16/ 2022 AM CDT 10:52 AM CDT Comment: Specimen Source Site: Wash Organism Antibiotic Method Susceptibility Staphylococcus aureus Oxacillin SUSCEPTIBILITY, FRIEDA (MCG/M L) 0.5 mcg/mL: Susceptible Comment: Use oxacillin interpretation to predict results for anti-staphylococcal beta-lac cameron antibiotics (except ceftaroline). Staphylococcus aureus Vancomycin SUSCEPTIBILITY, FRIEDA 1 mcg/ mL: Susceptible (MCG/ML) Staphylococcus aureus Clindamycin SUSCEPTIBILITY, FRIEDA <=0.5 mcg/mL: (MCG/ML) Susceptible Staphylococcus aureus Levofloxacin SUSCEPTIBILITY, FRIEDA <=0.5 mcg/mL: (MCG/ML) Susceptible Comment: Fluoroquinolones have a limi kenyetta role in treatment of staphylococcal infections; c onsult Infectious Diseases if considering usage. Staphylococcus aureus Trimethoprim + SUSCEPTIBILITY, FRIEDA <=0.5/ 9.5 mcg/mL: Sulfamethoxazole (MCG/ML) Susceptible Staphylococcus aureus Minocycline SUSCEPTIBILITY, FRIEDA <=4 mc g/mL: (MCG/ML) Susceptible Staphylococcus aureus Linezolid SUSCEPTIBILITY, FRIEDA <=2 mc g/mL: (MCG/ML) Susceptible Comment: If linezolid tests susceptib le, tedizolid susceptible result s can be inferred. ??However, some or ganisms that test resistant to linezolid may be susceptible to tedizolid. Staphylococcus aureus Rifampin SUSCEPTIBILITY, FRIEDA (MCG/M L) <=0.5 mcg/mL: Susceptible Comment: Rifampin should not be used as monotherapy Staphylococcus aureus Doxycycline SUSCEPTIBILITY, FRIEDA <=4 mc g/mL: (MCG/ML) Susceptible K oxy/R Ampicillin SUSCEPTIBILITY, FRIEDA >16 mcg/mL: ornithin/plant (MCG/ML) Resistant K oxy/R Ampicillin + Sulbactam SUSCEPTIBILITY, FRIEDA <=8/4 mcg/mL: ornithin/plant (MCG/ML) Susceptible K oxy/R Meropenem SUSCEPTIBILITY, FRIEDA <=0.12 mcg/m L: ornithin/plant (MCG/ML) Susceptible K oxy/R Ertapenem SUSCEPTIBILITY, FRIEDA <=0.25 mcg/m L: ornithin/plant (MCG/ML) Susceptible K oxy/R Piperacillin + SUSCEPTIBILITY, FRIEDA <=8/4 mcg/mL : ornithin/plant Tazobactam (MCG/ML) Susceptible K oxy/R Ciprofloxacin SUSCEPTIBILITY, FRIEDA <=0.25 mcg/m L: ornithin/plant (MCG/ML) Susceptible K oxy/R Levofloxacin SUSCEPTIBILITY, FRIEDA <=0.5 mcg/mL : ornithin/plant (MCG/ML) Susceptible K oxy/R Cefazolin SUSCEPTIBILITY, FRIEDA 8 mcg/mL: Re sistant ornithin/plant (MCG/ML) K oxy/R Ceftriaxone SUSCEPTIBILITY, FRIEDA <=1 mcg/mL: ornithin/plant (MCG/ML) Susceptible K oxy/R Ceftazidime SUSCEPTIBILITY, FRIEDA <=4 mcg/mL: ornithin/plant (MCG/ML) Susceptible K oxy/R Cefepime SUSCEPTIBILITY, FRIEDA <=2 mcg/mL: ornithin/plant (MCG/ML) Susceptible K oxy/R Cefdinir SUSCEPTIBILITY, FRIEDA <=1 mcg/mL: ornithin/plant (MCG/ML) Susceptible K oxy/R Amikacin SUSCEPTIBILITY, FRIEDA <=8 mcg/mL: ornithin/plant (MCG/ML) Susceptible K oxy/R Gentamicin SUSCEPTIBILITY, FRIEDA <=1 mcg/mL: ornithin/plant (MCG/ML) Susceptible K oxy/R Tobramycin SUSCEPTIBILITY, FRIEDA <=1 mcg/mL: ornithin/plant (MCG/ML) Susceptible K oxy/R Aztreonam SUSCEPTIBILITY, FRIEDA 8 mcg/mL: ornithin/plant (MCG/ML) Intermediate K oxy/R Trimethoprim + SUSCEPTIBILITY, FRIEDA <=0.5/9.5 mc g/mL: ornithin/plant Sulfamethoxazole (MCG/ML) Susceptible George Benito M.D. LAB MICROBIOLOGY - GENERAL O JOSESITO Performing Organization Address City/[facility] Code Phon e Number [facility] - [address] [place] [address] Laboratories-[address] Fungal Smear (01/28/2022 10:16 AM CDT) P athologist Signature Fungal Smear Negative. 01/28/2022 DT 6:03 PM CDT Specimen (Source) Anatomical Collection Method Collection Time Re ceived Time Location / / Volume Laterality Wash ([place]) 01/28/2022 10:16 AM CDT George Benito M.D. LAB MICROBIOLOGY - GENERAL O [place] Performing Organization Address City/[facility] Phon e Number [facility] - [address] [place] [address] [facility] [address] [facility] Acid Fast Smear For Mycobacterium (01/28/2022 10:16 AM CDT) [facility] Method Time Signature Acid Fast Smear Negative. 01/28/2022 DTL For Mycobacterium 11:04 PM CDT Specimen (Source) Anatomical Collection Method Collection Time Re ceived Time Location / / Volume Laterality Wash ([place]) 01/28/2022 10:16 AM CDT George Benito M.D. LAB MICROBIOLOGY - GENERAL O [place] Performing Organization Address City/[facility]/ZIP Code Phon e Number [facility] - [address] [place], [place] [address] [place] [address] [place], [place] [id number] [place] [address] (ABNORMAL) Fungal Culture, Routine (01/28/2022 10:16 AM CDT) [facility] Method Time Signature Fungal Mixed Fungal 02/20/2022 DTL Culture, Elda (A) 11:35 AM CDT Routine Fungal PENICILLIUM sp 02/20/2022 DTL Culture, Few 11:35 AM CDT Routine (A) Comment: Susceptibility testing is not routinely recommended for this organism. Clinical correlation requ ired. Fungal Culture, Routine YEAST, NOT Cr. neoformans, N OT Cr. gattii and NOT C. auris 02/20/2022 11:35 AM CDT DTL Few (A) Fungal Culture, Routine ACREMONIUM sp 02/20/2022 1 1:35 AM CDT DTL Few (A) Comment: Susceptibility testing is not indicated for all molds. Infectious Diseases consult is required to order mold susceptibility testing. Specimen (Source) Anatomical Collection Method Collection Time Re ceived Time Location / / Volume Laterality Wash ([place]) 01/28/2022 10:16 AM CDT George Benito M.D. LAB MICROBIOLOGY - GENERAL O JOSESITO Performing Organization Address City/State/ZIP Code Phon e Number [facility] - [address] [place], [place] [address] [facility] [place] [address] (TTE) 2D ECHO DOPPLER COLOR (01/23/2022 3:01 PM CDT) [facility] gist Method Time Signature Ejection Fraction 58 MC CV EIMS Mid-Ascending Aorta 40 MC CV EIMS LV Mass Index 92 MC CV EIMS LV End-Diastolic 53 MC CV EIMS Diameter LV End-Systolic 36 MC CV EIMS Diameter MV E Velocity 0.60 MC CV EIMS MV A Velocity 0.90 MC CV EIMS MV E/A 0.67 MC CV EIMS MV e' Velocity 0.04 MC CV EIMS Medial MV e' Velocity 0.07 MC CV EIMS Lateral MV E/e' Medial 15 MC CV EIMS MV E/e' Lateral 8.60 MC CV EIMS Left ventricular 44 MC CV EIMS stroke volume index Cardiac Output 5.89 MC CV EIMS Cardiac Index 2.71 MC CV EIMS LV Interventricular 10 MC CV EIMS Septal Wall Thickness LV Posterior Wall 10 MC CV EIMS Thickness LV Relative Wall 38 MC CV EIMS Thickness TAPSE 16 MC CV EIMS Tricuspid Annular S? 0.11 MC CV EIMS TR Vmax 2.50 MC CV EIMS RA Pressure 5 MC CV EIMS RV Systolic Pressure 30 MC CV EIM S Aortic valve area 3.22 MC CV EIMS Aortic Valve 0.71 MC CV EIMS Dimensionless Index LA Volume Index 30 MC CV EIMS Aortic Valve 1.40 MC CV EIMS Systolic Peak Velocity Anatomical Region Laterality Modality Echocardiography Specimen (Source) Anatomical Collection Method Collection Time Re ceived Time Location / / Volume Laterality 01/23/2022 1:48 PM CDT Impressions 01/23/2022 3:25 PM CDT There are no previous [facility] echocardiograms available for comparison. LEFT VENTRICLE:Normal left ventricular c hamber size. Normal left ventricular geometry. Calculated 2-D linear left ventricular ejection fraction 58%. No regional wall motion abnormalities. Grade 1/3 left ventricular diastolic dysfunction, cons istent with low to normal left ventricular filling p ressure. RIGHT VENTRICLE:Normal right ventricular chamber size. Borderline reduced right ventricular systolic function. Estimated right ventricular systolic pressure 30 mmHg (right atrial pressure of 5 mmHg). ATRIA:Normal left atrial size. Left atri al volume index 30 ml/m2. Normal right atrial size. CARDIAC VALVES:Trileaflet aortic valve. Thickened aortic valve. Mild aortic valve regurgitation. Thickened mitral valve. Calcified mitral annulus. Mild mitral valve regurgitation. Normal pulmonary valve. Mild pulmonary valve regurgitation. Normal tricuspid valve. Mild tricuspid valve re gurgitation. OTHER ECHO FINDINGS:Normal inferior vena cava size with normal inspiratory collapse (>50%). Normal mid ascending aorta diameter of 40 mm. Upper limit of normal of the mid ascending aorta, for age, sex and BSA is 45 mm. Abdominal aorta incompletely visualized. Normal abdominal aorta Doppl er flow pattern. No atrial level shunt by color flow imaging. No intracardiac mass or thrombus, but the left atrial appendage cannot be visualized adequately with transthoracic echo to exclude thrombus in this location. No ??pericardial effusion. For the complete report, see the Order-L evel Documents. Narrative 01/23/2022 3:25 PM CDT For the complete report, see the Order-Level Documents. Final Impressions 1. Normal left ventricular chamber size, no regional wall motion abnormalities, calculated 2-D linear ejection fraction 58%. 2. Grade 1/3 left ventricular diastolic dysfunction, consistent with low to normal left ventricular filling pressure. 3. Normal right ventricular chamber size , borderline reduced systolic function, estimated right ventricular systolic pressure 30 mmHg (right atrial pressure of 5 mmHg). 4. Normal inferior vena cava size with n ormal inspiratory collapse (>50%). 5. Mild aortic valve regurgitation. Mild mitral valve regurgitation. Mild tricuspid valve regurgitation. 6. No ??pericardial effusion. Procedure Note Gael Gaines M.D. - 01/23/2022Formatt ing of this note might be different from the original. For the complete report, see the Order-L evel Documents. Final Impressions 1. Normal left ventricular chamber size, no regional wall motion abnormalities, calculated 2-D linear ejection fraction 58%. 2. Grade 1/3 left ventricular diastolic dysfunction, consistent with low to normal left ventricular filling pressure. 3. Normal right ventricular chamber size , borderline reduced systolic function, estimated right ventricular systolic pressure 30 mmHg (right atrial pressure of 5 mmHg). 4. Normal inferior vena cava size with n ormal inspiratory collapse (>50%). 5. Mild aortic valve regurgitation. Mild mitral valve regurgitation. Mild tricuspid valve regurgitation. 6. No pericardial effusion. Findings There are no previous [facility] echoca rdiograms available for comparison. LEFT VENTRICLE:Normal left ventricular c hamber size. Normal left ventricular geometry. Calculated 2-D linear left ventricular ejection fraction 58%. No regional wall motion abnormalities. Grade 1/3 left ventricular diastolic dysfunction, consi stent with low to normal left ventricular filling pressure. RIGHT VENTRICLE:Normal right ventricular chamber size. Borderline reduced right ventricular systolic function. Estimated right ventricular systolic pressure 30 mmHg (right atrial pressure of 5 mmHg). ATRIA:Normal left atrial size. Left atri al volume index 30 ml/m2. Normal right atrial size. CARDIAC VALVES:Trileaflet aortic valve. Thickened aortic valve. Mild aortic valve regurgitation. Thickened mitral valve. Calcified mitral annulus. Mild mitral valve regurgitation. Normal pulmonary valve. Mild pulmonary valve regurgitation. Normal tr icuspid valve. Mild tricuspid valve regurgitation. OTHER ECHO FINDINGS:Normal inferior vena cava size with normal inspiratory collapse (>50%). Normal mid ascending aorta diameter of 40 mm. Upper limit of normal of the mid ascending aorta, for age, sex and BSA is 45 mm. Abdominal aorta incompletely visualized. Normal abdominal aorta Doppler flow pattern. No atrial level shunt by color flow imaging. No intracardiac mass or thrombus, but the left atrial appendage cannot be visualized adequately with transthoracic echo to ex clude thrombus in this location. No pericardial effusion. For the complete report, see the Order-L evel Documents. [address] CV ECHO PROCEDURES SARS Coronavirus 2, Molecular Detection, PCR, Varies Asymptomatic (01/23/2022 12:53 PM CDT) [facility] Method Time Signature COVID-19, Swab, 01/23/2022 DTL PCR, Source Nasopharynx 4:52 PM CDT COVID-19, Undetected Undetected 01/23/2022 DTL PCR, Result 4:52 PM CDT Comment: SARS-CoV-2 RNA absent. This result does not rule out COVID-19 in the patient, as the sensitivity of the test depends o n the timing of the specimen collection and quality of the specimen. Result should be correlated with patient's history and clinical presentat ion. ----ADDITIONAL INFORMATION---- This RT-PCR test using the Viralize SARS-Co V-2 Assay ( Pigit.) performed on the Viralize Two Module System has received Emergency Use Authorization (EUA) by the U.S. Food and Drug Administration, and is modified from the aerial sprayer's instructions with a bridging study. Performance characteristics were verifie d by [facility] in a manner consistent with CLIA requirements. Visit the CDC website: https://www.cdc.g ov/coronavirus/ for the most recent guidelines on Wong virus testing. Fact Sheet for Healthcare Providers: https://www.fda.gov/media/360473/downloa d Fact Sheet for Patients: https://www.fda.gov/media/412847/downloa d Specimen Anatomical Collection Method Collection Time Receive d Time (Source) Location / / Volume Laterality Varies 01/23/2022 12:53 01/23/2022 1:41 (Nasopharynx) PM CDT PM CDT Reagan GarciaSKeshav LAB MICROBIOLOGY - GENERAL ORDERABLES Performing Organization Address City/[facility] Phon e Number [facility] - [address] [place], [place] [address] [place] [id number] [place] [address] NT-Pro B-Type Natriuretic Peptide (BNP) (01/23/2022 12:10 PM CDT) P athologist Signature NT-Pro BNP 233 <=540 pg/mL 01/23/2022 DT 1:26 PM CDT Comment: NT-proBNP values less than 300 pg/mL hav e a 99% negative predictive value for excluding acute con gestive heart failure. A cutoff of 1200 pg/mL for melba ents with an eGFR<60 yields a diagnostic sensitivity and spec ificity of 89% and 72% for acute congestive heart failure. A diagnostic NT-proBNP cutoff of 1800 pg/mL has been suggested in adults over 75 years of age in the absence of r enal failure. Specimen Anatomical Collection Method Collection Time Receive d Time (Source) Location / / Volume Laterality Blood (Blood, 01/23/2022 12:10 01/23/2022 Venous) PM CDT 12:57 PM CDT Reagan GarciaSKeshav LAB BLOOD ADD-ON Performing Organization Address City/[facility] Phon e Number [facility] - [address] [place], [place] [address] [place], [place] [phone] [place] [address] CBC without Differential (01/23/2022 12:10 PM CDT) P athologist Signature Hemoglobin 14.6 13.2 - 01/23/2022 DTL 16.6 g/dL 12:48 PM CDT Hematocrit 46.1 38.3 - 01/23/2022 DTL 48.6 % 12:48 PM CDT Erythrocytes 4.91 4.35 - 01/23/2022 DTL 5.65 12:48 PM CDT x10(12)/L MCV 93.9 78.2 - 01/23/2022 DTL 97.9 fL 12:48 PM CDT RBC Distrib Width 14.2 11.8 - 01/23/2022 DTL 14.5 % 12:48 PM CDT Platelet Count 216 135 - 317 01/23/2022 DTL x10(9)/L 12:48 PM CDT Leukocytes 6.3 3.4 - 9.6 01/23/2022 DTL x10(9)/L 12:48 PM CDT Specimen Anatomical Collection Method Collection Time Receive d Time (Source) Location / / Volume Laterality Blood (Blood, 01/23/2022 12:10 01/23/2022 Venous) PM CDT 12:[address] LAB BLOOD ADD-ON Performing Organization Address City/State/ZIP Code Phon e Number [facility] [address] [place] [phone] [facility] [place] [address] [address] [facility] (ABNORMAL) Creatinine with Estimated GFR (01/23/2022 12:10 PM CDT) Analysis Performed At Patho logist Time Signature Creatinine 1.51 (H) 0.74 - 01/23/2022 DTL 1.35 mg/dL 1:26 PM CDT eGFR-Non 41 (L) >=60 01/23/2022 DTL Black/ mL/min/BSA 1:26 PM CDT Filipino Comment: ----ADDITIONAL INFORMATION---- Estimated GFR calculated using the 2009 CKD_EPI creatinine equation. eGFR-Black/ 48 (L) >=60 mL/min/BSA 2021 1:26 PM CDT DTL Comment: ----ADDITIONAL INFORMATION---- Estimated GFR calculated using the 2009 CKD_EPI creatinine equation. Specimen Anatomical Collection Method Collection Time Receive d Time (Source) Location / / Volume Laterality Blood (Blood, 01/23/2022 12:10 01/23/2022 Venous) PM CDT 12:57 PM CDT Reagan GarciaSKeshav LAB BLOOD ADD-ON Performing Organization Address City/State/ZIP Code Phon e Number [facility] - [address] [place], [place] [phone] [facility] [place] [address] ECG 12 Lead (01/23/2022 11:43 AM CDT) P athologist Signature Ventricular Rate 70 BPM MUSE ECG/Min UT Interval 144 ms MUSE QRSD Interval 94 ms MUSE QT Interval 406 ms MUSE QTC Interval 438 ms MUSE P [place] 38 degrees MUSE R [place] -4 degrees MUSE T Wave [place] 29 degrees MUSE Specimen Anatomical Collection Method Collection Time Receive d Time (Source) Location / / Volume Laterality 01/23/2022 11:43 01/23/2022 AM CDT 11:44 AM CDT Impressions MUSE - 01/23/2022 11:44 AM CDT Normal sinus rhythm Minimal voltage criteria for LVH, may be normal variant ( R in aVL ) No previous ECGs available Reviewed by GINGER Henson Narrative This result has an attachment that is no t available. Procedure Note Hany James Jr., M.D. - 01/23/2022For matting of this note might be different from the original. IMPRESSION: Normal sinus rhythm Minimal voltage criteria for LVH, may be normal variant ( R in aVL ) No previous ECGs available Reviewed by GINGER Henson Reaagn HansonBKeshavS. ECG ORDERABLES Performing Organization Address City/[facility]/ZIP Code Phon e Number MUSE MUSE NA CT ANGIO CHEST PE PROTOCOL-Outside CT Body (01/18/2022 12:20 PM CDT) Specimen (Source) Anatomical Location Collection Method / Collectio n Time Received Time / Laterality Volume Narrative IIMS - 01/23/2022 11:26 AM CDT This order has been created and auto-finalized to support the import of outside images. If available, original i nterpretation can be found on the Media Tab in Chart Review, in Document V iewer, or as an image in QREADS. If a re-interpretation or overread is re quired please follow defined workflow. ?? Provider Not In System IMG CT PROCEDURES Performing Organization Address City/State/ZIP Code Phon e Number IIMS IIMS NA from Last 3 Months Insurance Payer Benefit Plan / Subscriber ID Effective Phone Address T ype Group Dates Plizy [id number] 2021-Pre [address] Indemnity sent [id number] [id number] (Home) [facility] [address] [phone] Care Teams Bsa Officer Relationship Specialty Start Date End Date Elsewhere, Pcp PCP - General Internal Medicine 01/22/22 Gael Mcguire Primary Team Technical Training Specialist 01/22/22 [facility]
--- OUTSIDE RECORDS SUMMARY | 2022-02-24 12:15 | XMS_ITS | Encounter Summary ---
:1935 Author Organization [facility] Address [address] [place] [address] Care Team Providers Name Role Phone Elsewhere, Pcp Primary Care Provider Unavailable Reason for Visit Outpatient (Routine) - Closed Specialty Diagnoses / Procedures Referred By Contact Refer red To Contact Pulmonary Medicine [facility] [address] [place] [address] Referral ID Status Reason Start Date Expiration Date Visits Requ ested Visits Authorized [id number] Closed 02/18/2022 02/17/2025 1 1 Encounter Details Date Type Department Care Team Description 02/21/2022 Telemedicine Division of Pulmonary Reagan Ling tamikoic Cough (Primary Medicine in , M.B.B.S. Dx) [place], [place] [address] [facility] [address] [place] [phone] Social History Tobacco Use Types Packs/Day Years [...] or relatives? How often do you attend scientologist or Patient refused 2021 sikh services? Do you belong to any clubs or No 02/21/2022 organizations such as scientologist groups, unions, [employer] or athletic groups, or school groups? How [...] place to sleep or slept in a skilled nursing (including now)? Education Answer Date Recorded What is the highest level of Professional school degree (e.g ., , 02/18/2022 school you have completed or the DDS, DVM, KIMO) highest degree you have received? Sex Assigned at Date Recorded Male 02/18/2022 8:06 PM CDT documented as of this encounter Progress Notes Reagan Ling M.B.B.S. - 02/21/2022 3:30 PM CDT Non Qife-bn-Fotn Visit (conducted via zoom) SUBJECTIVE Briefly Zaid Rutledge is a 86 year old male with medical history significant for asthma (controlled on Advair, montelukast), chronic cough, prostate cancer (incidental finding post TURP, on surveillance), GERD (symptoms controlled on omeprazole), vertebrobasilar artery syndrome ,spinal stenosis, basal cell cancer s/p resection and nasal reconstruction in 2005, COVID-19 infection in September 2021 (vaccinated, Paxlovid, no hospitalization) and possible TIA in November 2021 ( Imaging negative, double vision resolved) who presented for evaluation of spitting/coughing up blood since November 12, 2021 on 01/23/2022.Prior EGD locally 01/21/22: pre-pyloric stomach erythema with no evidence of bleeding. Since his last visit, evaluation has included: Bronchoscopy 01/28/22: Blood in posterior oropharynx Rhinolaryngoscopy locally 02/19/22: No obvious bleeding sites seen. Prominent tongue base veins was documented. 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 EGD, bronchoscopy and recent rhinolaryngoscopy without signs of active bleed and hemoglobin stable. Awaiting Coronal sinus CT . If with recurrent symptoms can present locally for repeat rhinolaryngoscopy especially if CT is unrevealing. Did mention, some nasal mucosa dryness was noted on Rhinolaryngoscopy w and I have recommended consideration of Park geranium nasal spray for this. Continue to use Advair for Asthma I personally spent over half of a total 30 minutes in counseling and discussion with the patient andcoordination of care as described above. documented in this encounter Plan of Treatment Not on filedocumented as of this encounter Visit Diagnoses Diagnosis Chronic Cough - Primary documented in this encounter Care Teams Calender Machine Operator Relationship Specialty Start Date End Date Elsewhere, Pcp PCP - General Internal Medicine 01/22/22 Gael Mcguire Primary Team Crystal Report Developer 01/22/22 [facility] documented as of this encounter
--- OUTSIDE RECORDS SUMMARY | 2022-02-24 12:15 | XMS_ITS | Encounter Summary ---
:1935 Author Organization [facility] Address [address] [place] [address] Care Team Providers Name Role Phone Elsewhere, Pcp Primary Care Provider Unavailable Encounter Details Date Type Department Care Team Description 01/29/2022 Documentation Division of Pulmonary Reagan Ling , Medicine in [facility] [address] [facility] [address] [place] [phone] (Wo rk) Social History Tobacco Use Types [...] you attend zoroastrian or Patient refused 2021 holiness services? Do you belong to any clubs [...] place to sleep or slept in a half-way (including now)? Sex Assigned at Date Recorded Male 02/18/2022 8:06 PM CDT documented as of this encounter Progress Notes Reagan Ling M.B.B.S. - 01/29/2022 10:15 AM CDT Called Hand Stitcher and Mrs Rutledge to discuss bronchoscopy findings which was significant for blood in the posterior oropharynx but normal findings in bronchial trees. He experienced episodes of spitting, coughing and vomiting blood yesterday which is better this morning. Bleeding source possibly naso-pharynx. Unfortunately did not have rhinolaryngoscopy done yesterday due to late bronchoscopy.Currently scheduled to see ENT closer to home (more convenient). If symptoms worsen, I have advised to seek urgent/emergent care . Also shared ECHO results , within normal limit mostly , borderline RV dysfunction. documented in this encounter Plan of Treatment Not on filedocumented as of this encounter Visit Diagnoses Not on filedocumented in this encounter Care Teams Tile Molder Hand Relationship Specialty Start Date End Date Elsewhere, Pcp PCP - General Internal Medicine 01/22/22 Gael Mcguire Primary Team Automotive Service Technician 01/22/22 [facility] documented as of this encounter
--- OUTSIDE RECORDS SUMMARY | 2022-02-24 12:15 | XMS_ITS | Encounter Summary ---
:1935 Author Organization [facility] Address [address] [place] [address] Care Team Providers Name Role Phone Elsewhere, Pcp Primary Care Provider Unavailable Encounter Details Date Type Department Care Team Description 01/31/2022 Orders Only Division of Pulmonary Reagan Ling, Medicine in [facility] [address] [facility] [address] [place] [phone] (Wo rk) Social History Tobacco Use Types [...] or relatives? How often do you attend uatsdin or Patient refused 2021 yarsanism services? Do you belong to any clubs or No 02/21/2022 organizations such as uatsdin groups, unions, fraternal or athletic groups, or [...] on filedocumented in this encounter Care Teams Chainstitch Zipper Setter Relationship Specialty Start Date End Date Elsewhere, Pcp PCP - General Internal Medicine 01/22/22 Gael Mcguire Primary Team Rehab Department Manager 01/22/22 [facility] documented as of this encounter
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
--- OUTSIDE RECORDS SUMMARY | 2022-02-24 12:16 | XMS_ITS | Encounter Summary ---
:1935 Author Organization [facility] Address [address] [place] [address] Care Team Providers Name Role Phone Elsewhere, Pcp Primary Care Provider Unavailable Reason for Visit Auth/Cert Specialty Diagnoses / Procedures Referred By Contact Refer red To Contact Diagnoses Chronic Cough Chronic Cough [R05.3] Procedures NJ BRONCH DX W CELL WASH FLUOR NJ BRONCHOSCOPY W ALVEOLAR LAVAGE NJ BRONCHOSCOPY W BX >=1 SITE BRONCHOSCOPY FLEXIBLE BRONCHOSCOPY FLEXIBLE: BRONCHOALVEOLAR LAVAGE - IMMUNOCOMPROMISED HOST OR NON- IMMUNOCOMPROMISED HOST BRONCHOSCOPY FLEXIBLE: INSPECTION AIRWAY - BIOPS Y VISIBLE LESIONS Referral ID Status Reason Start Date Expiration Date Visits Requ ested Visits Authorized [id number] 1 1 Encounter Details Date Type Department Care Team Description 01/28/2022 Surgery RST ROMB MAIN OR George Benito, 10:45am appt. [address] [facility] Dwain [place] [address] 200 [facility] [phone] [place] [address] Social History Tobacco Use Types Packs/Day Years [...] or relatives? How often do you attend muslim or Patient refused 2021 christianity services? Do you belong to any clubs or No 02/21/2022 organizations such as muslim groups, unions, fraternal or athletic groups, or [...] place to sleep or slept in a jail (including now)? Sex Assigned at Date Recorded Male 02/18/2022 8:06 PM CDT documented as of this encounter Last Filed Vital Signs Vital Sign Reading [...] Mass Index 36.98 01/28/2022 7:58 AM CDT documented in this encounter Discharge Instructions AttachmentsThe following attachments cannot be sent through Care Everywhere. Bronchoscopy: Looking at Your Airways (Bahraini)documented in this encounter Medications at Time of Discharge Medication Sig Dispensed Refills Start Date End Date acetaminophen (TYLENOL) 500 Take 2 tablets by 0 0 09/18/2010 mg tablet mouth. allopurinoL (ZYLOPRIM) 100 Take 1 tablet by 0 03/2012 mg tablet mouth daily. cyanocobalamin (VITAMIN B12) Take 1 tablet by 0 1 06/21/2018 1,000 mcg tablet mouth daily. fluticasone Inhale 1 puff. 0 09/16/2016 propion-salmeteroL (Advair HFA) 45-21 mcg/actuation inhaler NON FORMULARY Take 1 tablet by 0 mouth. Pseudoephedrine-gua iFENesin (MUCINEX D OR) omeprazole (PriLOSEC) 20 mg TAKE ONE CAPSULE BY 0 06/30/2011 DR capsule MOUTH TWICE DAILY ONE HOUR BEFORE MEALS albuterol 0.166 mg/mL Inhale. 0 07/22/2010 continuous nebulization albuterol 90 mcg/actuation Inhale 2 puffs 0 02/09 inhaler every 4 (four) hours as needed. allopurinoL (ZYLOPRIM) 100 Take by mouth. 0 07/22 mg tablet aspirin [address] tablet Take 1 tablet by 0 01/04 mouth. cholecalciferol (VITAMIN D3) Take 1 capsule by 0 12/28/2009 25 mcg (1,000 Unit) capsule mouth daily. cyanocobalamin (VITAMIN B12) Inject 1,000 mcg 0 0 03/01/2018 1,000 mcg/mL injection intramuscularly. diphenhydrAMINE-acetaminophe Take 2 tablets by 0 n (TYLENOL PM) 25-500 mg per mouth at bedtime. tablet docosahexaenoic acid-epa Take 1 g by mouth. 0 120-180 mg capsule dorzolamide (TRUSOPT) 2 % 1 drop. 0 09/18/2010 ophthalmic solution fluticasone propionate 1 spray. 0 12/09/2000 (FLONASE) 50 mcg/actuation nasal spray fluticasone propionate Inhale 1 puff 2 0 05/29/20 11 (FLOVENT DISKUS) 100 (two) times a day. mcg/actuation diskus inhaler ibuprofen (ADVIL,MOTRIN) 400 Take 400 mg by 0 mg tablet mouth every 6 (six) hours as needed for pain. montelukast (SINGULAIR) 10 Take 10 mg by 0 2009 mg tablet mouth. pravastatin (PRAVACHOL) 40 Take 1 tablet by 0 mg tablet mouth at bedtime. vit A/vit C/vit Take by mouth. 0 E/zinc/copper (ICAPS AREDS ORAL) documented as of this encounter OR Notes Op Note - George Benito M.D. - 01/28/2022 10:53 AM CDT Done in OR 101, [facility]. 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 INDICATION: Hemoptysis. POST-OPERATIVE DIAGNOSIS Negative bronchoscopy. PROCEDURE: Flexible bronchoscopy. OPERATIVE NOTE NARRATIVE After COVID review, informed consent, procedural pause, intravenous conscious sedation and local anesthesia, inspection of the larynx and trachea revealed no obvious abnormality. There was blood in theposterior oropharynx suggesting an upper airway source. Inspection of the left and right bronchial tree was entirely unremarkable. Washings were collected throughout the exam and sent for AFB and fungal smears with cultures. SPECIMENS: As above. BLEEDING: None. ANESTHESIA: Intravenous conscious sedation with local anesthesia. SURGEON(S): Dwain Dominguez M.D. Faysal K. Al-Ghoula, M.B., B.. TPR: [address] Job ID: [id number] documented in this encounter Plan of Treatment Pending Results Name Type Priority Associated Diagnoses Date/Ti me Mycobacterial Culture Microbiology Routine Chronic Cough 01/28 10:16 AM CDT documented as of this encounter Procedures Procedure Name Priority Date/Time Associated Comments [...] - CDT BIOPSY VISIBLE LESIONS Case Notes SOFA COVER INSPECTOR at 7:29 BRONCHOSCOPY FLEXIBLE 01/28/2022 9:34 AM CDT Chronic C ough Case Notes SOFA COVER INSPECTOR at 7:29 documented in this encounter Results (ABNORMAL) Bacterial Culture, Aerobic + Susc, Resp (01/28/2022 10:16 AM CDT) Component Value Ref Test Analysis Performed At Patholo gist Range Method Time Signature Bacterial With [...] / Volume Laterality Bronchial Washing 01/28/2022 10:16 2021 AM CDT 10:52 AM CDT Comment: Specimen [...] Benito M.D. LAB MICROBIOLOGY - GENERAL O RDALEXA Performing Organization Address City/[facility]/ZIP Code Phon e Number [facility] - [address] [place], [place] [address] [address] [facility] [place], [place] [id number] [place] [address] [address] [facility] Fungal Smear (01/28/2022 10:16 AM CDT) P athologist Signature Fungal Smear Negative. 01/28/2022 DTL 6:03 PM CDT Specimen (Source) Anatomical Collection Method Collection Time Re ceived Time Location / / Volume Laterality Wash (Bronchus) 01/28/2022 10:16 AM CDT George Benito M.D. LAB MICROBIOLOGY - GENERAL O JOSESITO Performing Organization Address City/[facility]/ZIP Code Phon e Number [facility] - [address] [place] [address] 05 [facility] [place] [address] [place] [address] [address] [facility] Acid Fast Smear For Mycobacterium (01/28/2022 10:16 AM CDT) Patholo gist Method Time Signature Acid Fast Smear Negative. 01/28/2022 DTL For Mycobacterium 11:04 PM CDT Specimen (Source) Anatomical Collection Method Collection Time Re ceived Time Location / / Volume Laterality Wash (Bronchus) 01/28/2022 10:16 AM CDT George Benito M.D. LAB MICROBIOLOGY - GENERAL O JOSESITO Performing Organization Address City/[facility]/ZIP Code Phon e Number [facility] - [address] [place] [address] 05 [facility] [address] (ABNORMAL) Fungal Culture, Routine (01/28/2022 10:16 AM CDT) Patholo gist Method Time Signature Fungal Mixed Fungal 02/20/2022 [...] Benito M.D. LAB MICROBIOLOGY - GENERAL O RDERABLES Performing Organization Address City/State/[facility] Code Phon e Number [facility] - [address] [place], [place] [address] [facility] [place] [address] Laboratories-[facility] [address] documented in this encounter Visit Diagnoses Diagnosis Chronic Obstructive Pulmonary Disease (H CC) - Primary Chronic Cough Chronic Cough documented in this encounter Admitting Diagnoses Diagnosis Chronic Obstructive Pulmonary Disease (H CC) documented in this encounter Administered Medications Inactive Administered Medications - up to 3 most recent administrations Medication Order MAR Action Action Date Dose Rate Site benzocaine 20 % external Given 01/28/2022 10:10 AM 1 application Other spray (AMERICAINE) CDT As needed, Starting on Thu01/28/22 at 1010, Intra-Op lidocaine 10 mg/mL (1 %) injection Given 01/28/2022 10:15 AM CDT 15 mL Other (XYLOCAINE) As needed, Starting on Thu01/28/22 at 1010, Intra-Op Given 01/28/2022 10:10 AM CDT 5 mL Othe r documented in this encounter Active and Recently Administered Medications Times are shown in CDT. Continuous Medication Order 01/26/2022 01/27/2022 01/28/2022 lactated ringers 0845 (Due) 20 mL/hr, intravenous, Continuous, Starting on Thu01/28/22 at 08 45, Pre-Op PRN Medication Order 01/26/2022 01/27/2022 01/28/2022 benzocaine 20 % external spray (AMERICAINE) (CANCELED) 1010 (Given - Provider: Valentin Parra, B.Ch. - Comment: oropharynx) As needed, Starting on Thu01/28/22 at 1010, Intra-Op lidocaine 10 mg/mL (1 %) injection (XYLOCAINE) (CANCELED) 1010 (Given - Provider: Valentin Parra, B.Ch. - Comment: oropharynx)1015 (Given - Provider: Valentin Parra, B.Ch. - Comment: bronchus) As needed, Starting on Thu01/28/22 at 1010, Intra-Op documented in this encounter Care Teams Glass Cutter Hand Relationship Specialty Start Date End Date Elsewhere, Pcp PCP - General Internal Medicine 01/22/22 Gael Mcguire Primary Team Electrical Installation Supervisor 01/22/22 [facility] documented as of this encounter
--- OUTSIDE RECORDS SUMMARY | 2022-02-24 12:16 | XMS_ITS | Encounter Summary ---
:1935 Author Organization [facility] Address [address] [place] [address] Care Team Providers Name Role Phone Elsewhere, Pcp Primary Care Provider Unavailable Reason for Referral Outpatient (Routine) - Closed Specialty Diagnoses / Procedures Referred By Contact Refer red To Contact Diagnoses Shortness Of Breath Reagan Ling, [facility] Procedures Echo Transthoracic (TTE) M.B.B.S. [address] [place] [phone] Referral ID Status Reason Start Date Expiration Date Visits Requ ested Visits Authorized [id number] Closed 01/23/2022 01/23/2023 1 1 Reason for Visit Outpatient (Routine) - Closed Specialty Diagnoses / Procedures Referred By Contact Refer red To Contact Diagnoses Shortness Of Breath Reagan Ling [place] Procedures Echo Transthoracic (TTE) M.B.B.S. [place], [place] [phone] Referral ID Status Reason Start Date Expiration Date Visits Requ ested Visits Authorized [id number] Closed 01/23/2022 01/23/2023 1 1 Encounter Details Date Type Department Care Team Description 01/23/2022 Hospital Encounter Department of Odeyemi, Shortnes s Of Breath Cardiovascular Antoni Ngo in [place], MCaitlinB.S. [place] [address] [facility] [address] [place] [phone] Social History Tobacco Use Types Packs/Day Years Used Date Smoking Tobacco: Former Cigarettes Quit : 06/15/1989 Smokeless Tobacco: Never Alcohol Habits Answer Date Recorded How often [...] or relatives? How often do you attend orthodoxy or Patient refused 2021 pentecostal services? Do you belong to any clubs or No 02/21/2022 organizations such as orthodoxy groups, unions, fraternal or athletic groups, or [...] PM CDT documented as of this encounter Medications at Time of Discharge Medication Sig Dispensed Refills Start Date End Date acetaminophen (TYLENOL) 500 Take 2 tablets by 0 0 09/18/2010 mg tablet mouth. albuterol 0.166 mg/mL Inhale. 0 07/22/2010 continuous nebulization albuterol 90 mcg/actuation Inhale 2 puffs 0 02/09 inhaler every 4 (four) hours as needed. allopurinoL (ZYLOPRIM) 100 Take 1 tablet by 0 03/2012 mg tablet mouth daily. allopurinoL (ZYLOPRIM) 100 Take by mouth. 0 07/22 mg tablet aspirin [address] tablet Take 1 tablet by 0 01/04 mouth. cholecalciferol (VITAMIN D3) Take 1 capsule by 0 12/28/2009 25 mcg (1,000 Unit) capsule mouth daily. cyanocobalamin (VITAMIN B12) Take 1 tablet by 0 1 06/21/2018 1,000 mcg tablet mouth daily. cyanocobalamin (VITAMIN B12) Inject 1,000 mcg 0 0 03/01/2018 1,000 mcg/mL injection intramuscularly. diphenhydrAMINE-acetaminophe Take 2 tablets by 0 n (TYLENOL PM) 25-500 mg per mouth at bedtime. tablet docosahexaenoic acid-epa Take 1 g by mouth. 0 120-180 mg capsule dorzolamide (TRUSOPT) 2 % 1 drop. 0 09/18/2010 ophthalmic solution fluticasone Inhale 1 puff. 0 09/16/2016 propion-salmeteroL (Advair HFA) 45-21 mcg/actuation inhaler fluticasone propionate 1 spray. 0 12/09/2000 (FLONASE) 50 mcg/actuation nasal spray fluticasone propionate Inhale 1 puff 2 0 05/29/20 11 (FLOVENT DISKUS) 100 (two) times a day. mcg/actuation diskus inhaler ibuprofen (ADVIL,MOTRIN) 400 Take 400 mg by 0 mg tablet mouth every 6 (six) hours as needed for pain. montelukast (SINGULAIR) 10 Take 10 mg by 0 2009 mg tablet mouth. NON FORMULARY Take 1 tablet by 0 mouth. Pseudoephedrine-gua iFENesin (MUCINEX D OR) omeprazole (PriLOSEC) 20 mg TAKE ONE CAPSULE BY 0 06/30/2011 DR capsule MOUTH TWICE DAILY ONE HOUR BEFORE MEALS pravastatin (PRAVACHOL) 40 Take 1 tablet by 0 mg tablet mouth at bedtime. vit A/vit C/vit Take by mouth. 0 E/zinc/copper (ICAPS AREDS ORAL) documented as of this encounter Plan of Treatment Not on filedocumented as of this encounter Procedures Procedure Name Priority Date/Time Associated Diagnosis Comme nts (TTE) 2D ECHO Routine 01/23/2022 3:01 PM Shortness Of Breath R esults for this DOPPLER COLOR CDT procedure are in the results section. documented in this encounter Results (TTE) 2D ECHO DOPPLER COLOR (01/23/2022 3:01 PM CDT) [facility] Method Time Signature Ejection Fraction 58 MC [...] 3:25 PM CDT There are no previous [facility] echocardiograms available for comparison. LEFT VENTRICLE:Normal left [...] For the complete report, see the [employer] Documents. Narrative 01/23/2022 3:25 PM CDT For [...] original. For the complete report, see the [employer] Documents. Final Impressions 1. Normal left ventricular [...] pericardial effusion. Findings There are no previous [facility] echoca rdiograms available for comparison. LEFT VENTRICLE:Normal [...] evel Documents. [address] CV ECHO PROCEDURES documented in this encounter Visit Diagnoses Diagnosis Shortness Of Breath documented in this encounter Additional Health Concerns Infection Onset Date Last Indicated Resolved Time COVID19 Pending 01/23/2022 01/23/2022 01/23/2022 4:52 PM CDT documented as of this encounter Care Teams Nailer Machine Relationship Specialty Start Date End Date Elsewhere, Pcp PCP - General Internal Medicine 01/22/22 Gael Mcguire Primary Team Hedis Nurse 01/22/22 [facility] documented as of this encounter
--- OUTSIDE RECORDS SUMMARY | 2022-02-24 12:16 | XMS_ITS | Encounter Summary ---
:1935 Author Organization [facility] Address [address] [place] [address] Care Team Providers Name Role Phone Elsewhere, Pcp Primary Care Provider Unavailable Reason for Referral Outpatient (Routine) - Closed Specialty Diagnoses / Procedures Referred By Contact Refer red To Contact Diagnoses Shortness Of Breath Reagan Ling [facility] Procedures Echo Transthoracic (TTE) M.B.B.S. [address] [place], [place] [address] Referral ID Status Reason Start Date Expiration Date Visits Requ ested Visits Authorized [id number] Closed 01/23/2022 01/23/2023 1 1 Outpatient (Routine) - Closed Specialty Diagnoses / Procedures Referred By Contact Refer red To Contact Diagnoses Chronic Cough Reagan Ling M.B.B.S. [facility] Procedures ECG 12 Lead [address] [place] [phone] Referral ID Status Reason Start Date Expiration Date Visits Requ ested Visits Authorized [id number] Closed 01/23/2022 01/23/2023 1 1 Reason for Visit Appointment Request (Routine) - Closed Specialty Diagnoses / Procedures Referred By Contact Refer red To Contact Pulmonary Medicine Diagnoses Hemoptysis Referral ID Status Reason Start Date Expiration Date Visits Requ ested Visits Authorized [id number] Closed 01/17/2022 01/17/2023 1 1 Encounter Details Date Type Department Care Team Description 01/23/2022 Comprehensive Visit Division of Reagan Ling jamar Cough (Primary Dx); Pulmonary Medicine Valentin ShipmanBKeshavS. Shortness Of Breath in [place] [address] [address] [place], [place] [address] [facility] [phone] [place], [place] [phone] (Work) [phone] Social History Tobacco Use Types Packs/Day Years Used Date Smoking Tobacco: Former Cigarettes Quit : 06/15/1989 Smokeless Tobacco: Never Tobacco Cessation: Counseling Given: Not Answered Alcohol Habits Answer Date Recorded How often [...] or relatives? How often do you attend hindu or Patient refused 2021 jew services? Do you belong to any clubs or No 02/21/2022 organizations such as hindu groups, unions, fraternal or athletic groups, or [...] minutes do you engage in exercise at is 10 min 02/21/2022 level? 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 Described specifically spitting up blood, dark red with some clots, estimated 1/4 to a half a cup, about 2-3 times a day (night and day ), unsure about coughing up but clears his throat very often. Since November 12, has had repeated episodes on January 16, , , and . Work up significant for CT scan 01/18/2022, images not available but report indicates patchy ground glass opacity in the right middle lobe with dilated bronchus. EGD 01/21/2022 with hiatal hernia and pre-pyloric stomach erythema with no evidence of bleeding. Endorses shortness of breath in the last 10 month, sleeps with 2 pillows to breathe better and ankleswelling. Denies fever, chills. Uses Tylenol for back pain and rarely prn Ibuprofen. REVIEW OF SYSTEMS REVIEW OF SYSTEMS OBJECTIVE PHYSICAL EXAM Constitutional General: He is not in acute distress. HENT Nose: No congestion. Mouth/Throat: Mouth: Mucous membranes are moist. Cardiovascular Rate and Rhythm: Normal rate. Pulses: Normal pulses. Pulmonary Effort: Pulmonary effort is normal. Breath sounds: No stridor. No wheezing or rales. Abdominal General: There is no distension. Palpations: Abdomen is soft. Tenderness: There is no abdominal tenderness. Musculoskeletal Comments: Bilateral ankle nonpitting edema Neurological General: No focal deficit present. 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 We reviewed allavailable report from outside facilities include CT Chest report and EGD. Following testing have been ordered while we try to retrieve CT images. Will call with results. Current not on any anticoagulation. Orders Placed This Encounter Procedures Bronchoscopy (Adult): Creatinine with Estimated GFR CBC without Differential NT-Pro B-Type Natriuretic Peptide (BNP) ECG 12 Lead Echo Transthoracic (TTE) PUL Rhinolaryngoscopy Note to bronchoscopist: Please perform flexible bronchoscopy with airway inspection for evaluation of possible hemoptysis, biopsy any visible lesion, and perform non-ICH BAL in right middle lobe (CT with patchy ground glass opacities in right middle lobe). I personally spent over half of a total 80 minutes in counseling and discussion with the patient andcoordination of care as described above. documented in this encounter Plan of Treatment Not on filedocumented as of this encounter Results (TTE) 2D ECHO DOPPLER COLOR (01/23/2022 3:01 PM CDT) [facility] Method Time Signature Ejection Fraction 58 [...] 3:25 PM CDT There are no previous [facility] echocardiograms available for comparison. LEFT VENTRICLE:Normal left [...] original. For the complete report, see the Figure 8 [employer] Documents. Final Impressions 1. Normal left ventricular [...] pericardial effusion. Findings There are no previous [facility] echoca rdiograms available for comparison. LEFT VENTRICLE:Normal [...] report, see the Order[employer] Documents. Reagan HansonB.S. CV ECHO PROCEDURES NT-Pro B-Type Natriuretic Peptide (BNP) (01/23/2022 12:10 PM CDT) P athologist Signature NT-Pro BNP 233 <=540 pg/mL 01/23/2022 DTL 1:26 PM CDT Comment: NT-proBNP values less [...] Venous) PM CDT 12:57 PM CDT Reagan HansonB.S. LAB BLOOD ADD-ON Performing Organization Address City/State/ZIP Code Phon e Number [facility] - [address] [place], [place] [address] [facility] [place] [address] Laboratories-[address] CBC without Differential (01/23/2022 12:10 PM CDT) [...] Organization Address City/State/ZIP Code Phon e Number [facility] - [address] [place], [place] [address] [facility] [place] [place] [address] Laboratories-[address] (ABNORMAL) Creatinine with Estimated GFR (01/23/2022 12:10 PM CDT) Analysis Performed At Patho logist Time Signature Creatinine 1.51 (H) 0.74 - 01/23/2022 DTL 1.35 mg/dL 1:26 PM CDT eGFR-Non 41 (L) >=60 01/23/2022 DTL Black/ mL/min/BSA 1:26 PM CDT Omani Comment: ----ADDITIONAL INFORMATION---- Estimated GFR calculated using the 2009 CKD_EPI creatinine equation. eGFR-Black/ 48 (L) >=60 mL/min/BSA 2021 1:26 PM CDT DTL Comment: ----ADDITIONAL INFORMATION---- Estimated GFR calculated using the 2009 CKD_EPI creatinine equation. Specimen Anatomical Collection Method Collection Time Receive d Time (Source) Location / / Volume Laterality Blood (Blood, 01/23/2022 12:10 01/23/2022 Venous) PM CDT 12:57 PM CDT Reagan HansonB.S. LAB BLOOD ADD-ON Performing Organization Address City/[facility] Code Phon e Number [facility] - [address] [place], [place] [address] [facility] [place] [place] [address] Laboratories-[facility] 200 [facility] ECG 12 Lead (01/23/2022 11:43 AM CDT) P athologist Signature Ventricular Rate 70 BPM MUSE ECG/Min NV Interval 144 ms MUSE QRSD Interval 94 ms MUSE QT Interval 406 ms MUSE QTC Interval 438 ms MUSE P [place] 38 degrees MUSE R [place] -4 degrees MUSE T Wave [place] 29 degrees MUSE Specimen Anatomical Collection Method [...] previous ECGs available Reviewed by GINGER Henson Reagan HansonB.S. ECG ORDERABLES Performing Organization Address City/State/ZIP Code Phon e Number MUSE MUSE NA documented in this encounter Visit Diagnoses Diagnosis Chronic Cough - Primary Shortness Of Breath Shortness Of Breath documented in this encounter Care Teams Rn Intensive Care Unit Relationship Specialty Start Date End Date Elsewhere, Pcp PCP - General Internal Medicine 01/22/22 Gael Mcguire Primary Team Shoe Polisher 01/22/22 [facility] documented as of this encounter
--- OUTSIDE RECORDS SUMMARY | 2022-02-24 12:16 | XMS_ITS | Encounter Summary ---
:1935 Author Organization [facility] Address [address] [place] [address] Care Team Providers Name Role Phone Elsewhere, Pcp Primary Care Provider Unavailable Reason for Visit Reason Comments Intake Assessment Encounter Details Date Type Department Care Team Description 01/22/2022 Clinical Communication Visit Review in In take [place], [place] [address] [place] [address] Social History Tobacco Use Types Packs/Day Years Used Date Smoking Tobacco: Never Assessed Alcohol Habits Answer Date Recorded How often [...] you attend gnosticism or Patient refused 2021 denominational services? Do you belong to any clubs [...] place to sleep or slept in a detention (including now)? Sex Assigned at Date Recorded Male 02/18/2022 8:06 PM CDT documented as of this encounter Plan of Treatment Not on filedocumented as of this encounter Visit Diagnoses Not on filedocumented in this encounter Care Teams [employer] Resource Teacher Relationship Specialty Start Date End Date Elsewhere, Pcp PCP - General Internal Medicine 01/22/22 Gael Mcguire Primary Team Reporter Anchor 01/22/22 [facility] documented as of this encounter
--- OUTSIDE RECORDS SUMMARY | 2022-02-24 12:16 | XMS_ITS | Encounter Summary ---
:1935 Author Organization [facility] Address [address] [place] [address] Care Team Providers Name Role Phone Elsewhere, Pcp Primary Care Provider Unavailable Reason for Visit Reason Comments OSM Request Encounter Details Date Type Department Care Team Description 01/23/2022 Clinical Communication Division of Pulmonary Reagan Ling OSM Request Medicine in [facility] [place], [place] [address] [facility] [address] [place] [phone] Social History Tobacco Use Types Packs/Day Years [...] or relatives? How often do you attend religious or Patient refused 2021 roman catholic services? Do you belong to any clubs or No 02/21/2022 organizations such as religious groups, unions, fraternal or athletic groups, or [...] Notes Telephone Encounter - Sarwat Burgos - 01/27/2022 8:26 AM CDT Images in Qreads. Telephone Encounter - Sarwat Burgos - 01/23/2022 11:06 AM CDT Pulmonary Note: Outside Materials Request Facility: [facility] Fax: n/a Requested Records: CT Chest 01/18, CT Chest September To be delivered by: Electronic Push Additional Notes: ok documented in this encounter Plan of Treatment Not on filedocumented as of this encounter Visit Diagnoses Not on filedocumented in this encounter Additional Health Concerns Infection Onset Date Last Indicated Resolved Time COVID19 Pending 01/23/2022 01/23/2022 01/23/2022 4:52 PM CDT documented as of this encounter Care Teams Surgical Tech Relationship Specialty Start Date End Date Elsewhere, Pcp PCP - General Internal Medicine 01/22/22 Gael Mcguire Primary Team Exercise Physiologist Certified 01/22/22 [facility] documented as of this encounter
--- OUTSIDE RECORDS SUMMARY | 2022-02-24 12:16 | XMS_ITS | Encounter Summary ---
:1935 Author Organization [facility] Address [address] [place] [address] Care Team Providers Name Role Phone Unavailable Primary Care Provider Unavailable Encounter Details Date Type Department Care Team Description 06/21/2007 Hospital Encounter [facility] Michaela Hare P.A. [address] [place] [address] (Wo rk) Social History Tobacco Use Types [...] or relatives? How often do you attend holiness or Patient refused 2021 baptist services? Do you belong to any clubs or No 02/21/2022 organizations such as holiness groups, unions, fraternal or athletic groups, or [...] place to sleep or slept in a senior living (including now)? Sex Assigned at Date Recorded Male 02/18/2022 8:06 PM CDT documented as of this encounter Medications at Time of Discharge Medication Sig Dispensed Refills Start Date End Date fluticasone propionate (FLONASE) 50 1 spray. 0 12/09/2000 mcg/actuation nasal spray documented as of this encounter Plan of Treatment Not on filedocumented as of this encounter Visit Diagnoses Not on filedocumented in this encounter
--- OUTSIDE RECORDS SUMMARY | 2022-02-24 12:16 | XMS_ITS | Encounter Summary ---
:1935 Author Organization [facility] Address [address] [place] [address] Care Team Providers Name Role Phone Unavailable Primary Care Provider Unavailable Encounter Details Date Type Department Care Team Description 06/21/2007 Hospital Encounter [facility]X [facility] Natalie Goodman M.D. Social History Tobacco Use Types Packs/Day Years [...] or relatives? How often do you attend anabaptism or Patient refused 2021 rastafari services? Do you belong to any clubs or No 02/21/2022 organizations such as anabaptism groups, unions, fraternal or athletic groups, or [...]
--- OUTSIDE RECORDS SUMMARY | 2022-02-24 12:16 | XMS_ITS | Encounter Summary ---
:1935 Author Organization [facility] Address [address] [place] [address] Care Team Providers Name Role Phone Elsewhere, Pcp Primary Care Provider Unavailable Reason for Visit Auth/Cert Specialty Diagnoses / Procedures Referred By Contact Refer red To Contact Diagnoses Chronic Cough Chronic Cough [R05.3] Procedures ID BRONCH DX W CELL WASH FLUOR ID BRONCHOSCOPY W ALVEOLAR LAVAGE ID BRONCHOSCOPY W BX >=1 SITE BRONCHOSCOPY FLEXIBLE BRONCHOSCOPY FLEXIBLE: BRONCHOALVEOLAR LAVAGE - IMMUNOCOMPROMISED HOST OR NON- IMMUNOCOMPROMISED HOST BRONCHOSCOPY FLEXIBLE: INSPECTION AIRWAY - BIOPS Y VISIBLE LESIONS Referral ID Status Reason Start Date Expiration Date Visits Requ ested Visits Authorized [id number] 1 1 Encounter Details Date Type Department Care Team Description 01/28/2022 Hospital Encounter [facility] George Benito M.D. [address] [place] [phone] Chronic Obstructive Pulmonary Disease (H CC) (Primary Dx); [address] [facility] Baron Paris M.D. [address] [place] [address] [place] [phone] Social History Tobacco Use Types Packs/Day Years [...] or relatives? How often do you attend buddhist or Patient refused 2021 sabianist services? Do you belong to any clubs or No 02/21/2022 organizations such as buddhist groups, unions, fraternal or athletic groups, or [...] place to sleep or slept in a mcc (including now)? Sex Assigned at Date Recorded [...] Care Everywhere. Bronchoscopy: Looking at Your Airways (Zambian)documented in this encounter Medications at Time of [...] 01/28/2022 10:53 AM CDT Done in [facility]. 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 INDICATION: Hemoptysis. [...] George Benito M.D. CT CT Job ID: [id number] documented in this encounter Plan of Treatment [...] - CDT BIOPSY VISIBLE LESIONS Case Notes BROKE BEATER at 7:29 BRONCHOSCOPY FLEXIBLE 01/28/2022 9:34 AM CDT Chronic C ough Case Notes BROKE BEATER at 7:29 documented in this encounter Results [...] Organization Address City/State/ZIP Code Phon e Number [facility] - [address] [place], [place] [address] [facility] [place] [address] [facility] [address] [facility] Fungal Smear (01/28/2022 10:16 AM CDT) P athologist Signature Fungal Smear Negative. 01/28/2022 DTL 6:03 PM CDT Specimen (Source) Anatomical Collection Method Collection Time Re ceived Time Location / / Volume Laterality Wash (Bronchus) 01/28/2022 10:16 AM CDT George Benito M.D. LAB MICROBIOLOGY - GENERAL O JOSESITO Performing Organization Address City/State/ZIP Code Phon e Number [facility] - [address] [place], [place] [address] [facility] [place] [address] [facility] [address] [facility] Acid Fast Smear For Mycobacterium (01/28/2022 10:16 AM CDT) Patholo gist Method Time Signature Acid Fast Smear Negative. 01/28/2022 DTL For Mycobacterium 11:04 PM CDT Specimen (Source) Anatomical Collection Method Collection Time Re ceived Time Location / / Volume Laterality Wash (Bronchus) 01/28/2022 10:16 AM CDT George Benito M.D. LAB MICROBIOLOGY - GENERAL O [place] Performing Organization Address City/State/ZIP Code Phon e Number [facility] - [address] [place], [place] [address] [facility] [place] [address] [facility] [address] (ABNORMAL) Fungal Culture, Routine (01/28/2022 10:16 AM CDT) [facility] gist Method Time Signature Fungal Mixed Fungal [...] - GENERAL O RDERABLES Performing Organization Address City/State/ZIP Code Phon e Number [facility] - [address] [place], [place] [address] [facility] [place] [address] [facility] [address] documented in this encounter Visit Diagnoses Diagnosis Chronic Obstructive Pulmonary Disease (H CC) - Primary Chronic Cough documented in this encounter Admitting Diagnoses Diagnosis Chronic Obstructive Pulmonary Disease (H CC) documented in this encounter Administered Medications documented in this encounter Active and Recently [...] Intra-Op documented in this encounter Care Teams Body And Fender Worker Relationship Specialty Start Date End Date Elsewhere, Pcp PCP - General Internal Medicine 01/22/22 Gael Mcguire Primary Team Silver Cleaner 01/22/22 [facility] documented as of this encounter
--- OUTSIDE RECORDS SUMMARY | 2022-02-24 12:16 | XMS_ITS | Encounter Summary ---
:1935 Author Organization [facility] Address [address], [place] [address] Care Team Providers Name Role Phone No Primary/Referring, Phy Primary Care Provider Unavailable Reason for Visit Reason Onset Date Comments Refill 12/18/2021 Omeprazole, allopuri nol Encounter Details Date Type Department Care Team Description 12/18/2021 Refill [facility] Shelly Ott (Omeprazole, [facility], allopurinol) Medicine [address] [place] [address] [address] [place], [place] [phone] Social History Tobacco Use Types Packs/Day Years Used Date Smoking Tobacco: Former Cigarettes Quit : 12/24/1997 Smokeless Tobacco: Never Alcohol Use Standard Drinks/Week Comments Yes 3 (1 standard drink = 0.6 oz pure alcoho l) moderate Alcohol Habits Answer Date Recorded How often do you have a drink containing alcohol? Not asked How many drinks containing alcohol do you have on a typical Not asked day when you are drinking? How often do you have six or more drinks on one occasion? No t asked Comment: moderate 03/25/2012 Food Insecurity Answer Date Recorded Within the past 12 months, you worried that your food would Never true 12/12/2021 run out before you got money to buy more. Within the past 12 months, the food you bought just didn't N ever true 12/12/2021 last and you didn't have money to get more. Sex Assigned at Date Recorded Not on file documented as of this encounter Nursing Notes Katharina Gill - 12/24/2021 3:15 PM CDT Medication Refill - Overdue Visit Called patient, was: Successful in reaching patient Patient is due for: Office Visit [Consultant Nurse: We recently received a refill request for one of your medications. In order to ensure your medication is safe and effective, your clinician needs to see you at least yearly for an office visit. May I help you schedule that office visit?] Patient declined to schedule due to: Patient has moved to [place] and established care with a provider there. This request was sent to us in error. Please disregard. [Consultant Nurse: I will send a request to see if a temporary refill can be provided. Please check with your pharmacy on the status of your refill.] Katharina Gill Please route to: (HP) Care Team Pool/ (PN) Clinician Bayron Bolden - 12/20/2021 11:58 AM CDT Medication Refill - Overdue Visit Called patient, was: Unable to reach patient 1st call attempted. Left message to call back. 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 No PCP. Saw Dr. Solares on 12/26/20 for a pre-op. Pt. Receives home care so unsure about ability to be seen in the clinic. Recently in the hospital ( 12/11/21). Meds last approved by Namrata. ( last visit19 months ago with him). Please call patient to schedule a Office/Video Visit and document using .AMITA. After attemptingto schedule patient: Please route to: Clinician/Care Team Shlomo Requested Prescriptions Pending Prescriptions Disp Refills ??? omeprazole (PRILOSEC) 20 MG capsule 180 Capsule 0 Sig: Take 1 Capsule (20 mg) by mouth two times a day. Take 1 hour before a meal. ??? allopurinol (ZYLOPRIM) 100 MG tablet 90 Tablet 0 Sig: Take 1 Tablet (100 mg) by mouth daily. Michaela Cerda RN 12/19/2021, 10:21 AM Interface, Out Surescripts Prov Query - 12/18/2021 2:54 PM CDT allopurinol (ZYLOPRIM) 100 MG tablet Miscellaneous - 12 Month Visit -> An office visit is overdue (performed over 19 months ago, required every 12 months). Last qualifying visit: 05/21/2020 (with SHELLY OTT) (A more recent visit (in Internal Medicine with ANDRY SOLARES) was found) Next scheduled visit: None Last ordered by SHELLY OTT: 06/13/2021 (188 days ago) QTY: 90, Refills: 0, Sig: take 1 tablet by mouth every day (changed but equivalent) [employer] Embedded Refills, Reference: [id number], 12/18/2021 2:54:21 PM CDT, Shlomo: PETER JEFFERY RN ([id number]) omeprazole (PRILOSEC) 20 MG capsule Miscellaneous - 12 Month Visit -> An office visit is overdue (performed over 19 months ago, required every 12 months). Last qualifying visit: 05/21/2020 (with SHELLY OTT) (A more recent visit (in Internal Medicine with ANDRY SOLARES) was found) Next scheduled visit: None Last ordered by SHELLY OTT: 06/13/2021 (188 days ago) QTY: 180, Refills: 0, Sig: take one capsule by mouth twice daily one hour before meals (changed but equivalent) [employer] Embedded Refills, Reference: [id number], 12/18/2021 2:54:21 PM CDTShlomo: PETER REFILL RN ([id number]) Jimena Arriola CMA - 12/18/2021 2:50 PM CDT omeprazole (PRILOSEC) 20 MG capsule Last date filled: 09/17/21 Qty: 180 Sig: TAKE ONE CAPSULE BY MOUTH TWICE DAILY ONE HOUR BEFORE MEALS allopurinol (ZYLOPRIM) 100 MG tablet Last date filled: 09/17/21 Qty: 90 Si tab daily Jimena Arriola CMA 12/18/2021, 2:50 PM documented in this encounter Plan of Treatment Not on filedocumented as of this encounter Visit Diagnoses Not on filedocumented in this encounter Care Teams Museum Host/Hostess Relationship Specialty Start Date End Date No Primary/Referring, Phy PCP - General 12/11/21 documented as of this encounter
--- OUTSIDE RECORDS SUMMARY | 2022-02-24 12:16 | XMS_ITS | Encounter Summary ---
:1935 Author Organization [facility] Address [address] [place] [address] Care Team Providers Name Role Phone Elsewhere, Pcp Primary Care Provider Unavailable Encounter Details Date Type Department Care Team Description 01/23/2022 Hospital Encounter Department of Reagan Ling C hronic Cough Laboratory Medicine [facility] and Pathology, [address] in [place], [place] [address] [place] [address] [place] [address] Social History Tobacco Use Types Packs/Day Years [...] you attend scientologist or Patient refused 2021 cheondoism services? Do you belong to any clubs or No 02/21/2022 organizations such as scientologist groups, unions, fraternal or athletic groups, or [...] Procedure Name Priority Date/Time Associated Comments Diagnosis NT-PRO B-TYPE Routine 01/23/2022 12:10 Chronic Cough Results f or this NATRIURETIC PEPTIDE PM CDT procedur e are in (BNP), S the results section. CBC WITHOUT Routine 01/23/2022 12:10 Chronic Cough Results fo r this DIFFERENTIAL, B PM CDT procedure ar e in the results section. CREATININE WITH EGFR, Routine 01/23/2022 12:10 Chronic Cough R esults for this S/P PM CDT procedure are i n the results section. documented in this encounter Results NT-Pro B-Type Natriuretic Peptide (BNP) (01/23/2022 12:10 [...] GarciaSKeshav LAB BLOOD ADD-ON Performing Organization Address City/[facility] Phon e Number [facility] - [address] [place], [place] [address] [place] [address] CBC without Differential (01/23/2022 12:10 PM [...] Venous) PM CDT 12:41 PM CDT Reagan GarciaSKeshav LAB BLOOD ADD-ON Performing Organization Address City/[facility] Phon e Number [facility] - [address] [place], [place] [address] [place] [address] (ABNORMAL) Creatinine with Estimated GFR (01/23/2022 12:10 PM CDT) Analysis Performed At Patho logist Time Signature Creatinine 1.51 (H) 0.74 - 01/23/2022 DTL 1.35 mg/dL 1:26 PM CDT eGFR-Non 41 (L) >=60 01/23/2022 DTL Black/ mL/min/BSA 1:26 PM CDT Cambodian Comment: ----ADDITIONAL INFORMATION---- Estimated GFR calculated using the 2009 CKD_EPI creatinine equation. eGFR-Black/ 48 (L) >=60 mL/min/BSA 2021 1:26 PM CDT DTL Comment: ----ADDITIONAL INFORMATION---- Estimated GFR calculated using the 2009 CKD_EPI creatinine equation. Specimen Anatomical Collection Method Collection Time Receive d Time (Source) Location / / Volume Laterality Blood (Blood, 01/23/2022 12:10 01/23/2022 Venous) PM CDT 12:[address] LAB BLOOD ADD-ON Performing Organization Address City/State/ZIP Code Phon e Number [facility] - [address] [place], [place] [address] [facility] [place] [address] Laboratories-[facility] [address] documented in this encounter Visit Diagnoses Diagnosis Chronic Cough documented in this encounter Additional Health Concerns Infection Onset Date Last Indicated Resolved Time COVID19 Pending 01/23/2022 01/23/2022 01/23/2022 4:52 PM CDT documented as of this encounter Care Teams Brand Analyst Relationship Specialty Start Date End Date Elsewhere, Pcp PCP - General Internal Medicine 01/22/22 Gael Mcguire Primary Team Cooky Machine Operator 01/22/22 [facility] documented as of this encounter
--- OUTSIDE RECORDS SUMMARY | 2022-02-24 12:16 | XMS_ITS | Clinical Summary ---
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 Khanna Kami AUGUSTINC LAB_[address] [facility]/ZIP Code Phon e Number [facility] [address] [place] [phone] aPTT (Activated Partial Thromboplastin Time) (12/11/2021 8:02 PM CDT) athologist Signature APTT 35.9 22.5 - 36.5 12/11/2021 [place] Seconds 8:16 PM CDT HOSPITAL LAB Specimen Anatomical Collection Method / Collection Time Recei anisa Time (Source) Location / Volume Laterality Blood Venipuncture / 12/11/2021 8:02 12/11/2021 8:05 Unknown PM CDT PM CDT Nicolette Khanna Kami SINGLETON-C LAB_1 Performing [address] [facility] Phon e Number [facility] [address] [place] [phone] Troponin I (12/11/2021 8:02 PM CDT) athologist Signature Troponin I <0.01 0.00 - 0.03 12/11/2021 [place] ng/mL 8:31 PM CDT HOSPITAL LAB Specimen Anatomical Collection Method / Collection Time Recei anisa Time (Source) Location / Volume Laterality Blood Venipuncture / 12/11/2021 8:02 12/11/2021 8:05 Unknown PM CDT PM CDT Nicolette Khanna Kami SINGLETON-C LAB_1 Performing [address] [facility] Phon e Number [facility] [address] [place] [phone] Hemogram with Platelets (12/11/2021 8:02 PM CDT) athologist Signature WBC 6.5 3.5 - 10.5 12/11/2021 [place] x10(9)/L 8:09 PM CDT [facility]OSPITAL [facility] RBC 4.74 4.32 - 12/11/2021 [place] 5.72 8:09 PM T [facility] x10(12)/L Hemoglobin 14.5 13.5 - 12/11/2021 [place] 17.5 g/dL 8:09 PM T [facility] HCT 43.6 38.8 - 12/11/2021 [place] 50.0 % 8:09 PM CDT [facility] MCV 92.0 80.0 - 12/11/2021 [place] 100.0 fL 8:09 PM CDT [facility] MCH 30.6 27.6 - 12/11/2021 [place] 33.3 pg 8:09 PM CDT [facility] MCHC 33.3 31.5 - 12/11/2021 [place] 35.2 g/dL 8:09 PM T [facility] RDW 13.9 11.9 - 12/11/2021 [place] 15.5 % 8:09 PM T [facility] Platelets 212 150 - 450 12/11/2021 [place] x10(9)/L 8:09 PM T [facility] Automated NRBC 0 <=0 /100 12/11/2021 [place] WBC 8:09 PM T [facility] Specimen Anatomical Collection Method / Collection Time Recei anisa Time (Source) Location / Volume Laterality Blood Venipuncture / 12/11/2021 8:02 12/11/2021 8:05 Unknown PM CDT PM CDT Nicolette Mcclure PA-C LAB_1 Performing Organization Address City/State/ZIP Code Phon e Number [facility] [address] [place] [address] [phone] INR/Protime (PT/INR) (12/11/2021 8:02 PM CDT) P athologist Signature Protime 12.7 11.8 - 14.6 12/11/2021 [place] Seconds 8:16 PM CDT [facility]OSPITAL [facility] INR 1.0 0.9 - 1.1 12/11/2021 [place] 8:16 PM CDT HOSPITAL LAB Specimen Anatomical Collection Method / Collection Time Recei anisa Time (Source) Location / Volume Laterality Blood Venipuncture / 12/11/2021 8:02 12/11/2021 8:05 Unknown PM CDT PM CDT Narrative [facility] - 12/11/2021 8:16 PM CDT Therapeutic range determined by protocol established by anticoagulation provider. Nicolette Mcclure PA-C LAB_1 Performing Organization Address City/State/ZIP Code Phon e Number [facility] [address] [place] [address] from Last 3 Months Insurance Payer Benefit Plan / Subscriber ID Effective Phone Address T ype Group Dates [facility] MEDICARE [id number] 2020-Prese [phone] Medicare ADVANTAGE nt 79 Zaid Rutledge Personal/Family Self 1935 [facility] [place] [id number] Zaid Rutledge Personal/Family Self 1935 [phone] [id number] (Home) [place] [address] Zaid Rutledge Personal/Family Self 1935 [address] [facility] [place] [id number] Zaid Rutledge Personal/Family Self 1935 [address] [place] [id number] Zaid Rutledge Personal/Family Self 1935 [facility] [place] [id number] Zaid Rutledge Personal/Family Self 1935 [facility] [place] [id number] Advance Directives Latest Code Status on File Code Status Date Activated Date Inactivated Comments Full Code 12/12/2021 1:26 AM 12/12/2021 2:19 PM Full Code 12/31/2020 1:24 PM 01/01/2021 2:31 PM Full Code 12/31/2020 11:51 AM 12/31/2020 1:24 PM Full Code 01/16/2016 8:53 PM 01/17/2016 8:49 PM Full Code 10/29/2015 1:22 PM 10/30/2015 3:38 PM Care Teams Bulb Assembler Relationship Specialty Start Date End Date No Primary/Referring, Phy PCP - General 12/11/21
--- OUTSIDE RECORDS SUMMARY | 2022-02-24 12:17 | XMS_ITS | Encounter Summary ---
:1935 Author Organization [employer] Address [address] [address] Care Team Providers Name Role Phone Placido Ott MD Primary Care Provider Reason for Visit Reason Comments FOLLOW-UP,HOSPITAL Encounter Details Date Type Department Care Team Description 01/04/2021 Telephone Med Surg Pat Saini, [facility]LLOW-UP[facility] [address] [place] [address]. [place] [address] [place] [address] [place], [place] [address] Social History Tobacco Use Types Packs/Day Years Used Date Smoking Tobacco: Former Cigarettes Quit : 12/24/1997 Smokeless Tobacco: Never Alcohol Use Standard Drinks/Week Comments Yes 7 (1 standard drink = 0.6 oz pure [...] on file documented as of this encounter Plan of Treatment Not on filedocumented as of this encounter Visit Diagnoses Not on filedocumented in this encounter Care Teams Exhaust Worker Relationship Specialty Start Date End Date Placido Ott MD PCP - General Internal Medicine 10/26/17 10/17/21 [address] [place] [address] documented as of this encounter
--- OUTSIDE RECORDS SUMMARY | 2022-02-24 12:17 | XMS_ITS | Encounter Summary ---
:1935 Author Organization [employer] Address [address] [address] Care Team Providers Name Role Phone Placido Ott MD Primary Care Provider Encounter Details Date Type Department Care Team Description 01/14/2021 Home Care Visit [facility] N Waqas Villalobos, PT PT ROUTINE VISIT [address] [place] [address] [phone] Social History Tobacco Use Types Packs/Day Years [...] on file documented as of this encounter Last Filed Vital Signs Vital Sign Reading Time Taken Comments Blood Pressure 110/60 01/14/2021 3:30 PM CDT Pulse - - Temperature - - Respiratory Rate - - Oxygen Saturation - - Inhaled Oxygen Concentration - - Weight - - Height - - Body Mass Index - - documented in this encounter Miscellaneous Notes Home Health - Waqas Villalobos, PT - 01/14/2021 3:13 PM CDT Homecare Visit Summary Focus of visit: car transfer training and gait training c SEC outside New issues/concerns: patient to see the surgeon's care team tomorrow and Zaid thinks he would like to resume out patient P.T. care but not sure when he can get in to resume P.T. care. He said he would check with the out patient P.T. clinic to see when he could resume care and then call this ghost writer. Assessment/progress toward goals: Being met. Advancing from FWW to SEC . Plan for next visit: will await return call from Zaid to determine when his out patient P.T. care will resume and therefore and if any additional homecare P.T. service will be needed. See Encounter for more details. If Telehealth Visit, did this visit meet the patient's needs per their individualized care plan? Yes/No NA documented in this encounter Plan of Treatment Not on filedocumented as of this encounter Visit Diagnoses Not on filedocumented in this encounter Home Health Visit - Care Plan Visit Details Visit Type - PT Routine Visit Discipline - Physical Therapy Problems Problem Description Start Date Status Goals Interventions Best Practice - Medication 01/03/2021 Active 1 goal linked to 1 g oal Medication Management (Low scheduled/documen in tervention Management (Low risk) kenyetta intervention sky eduled/document Risk) ed in this visi t Disciplines: Chcf, Physical Therapy, Occupational Therapy, Speech Language Pathology, Medical Social Work, Physical Therapy Wound Care Best Practice - Vulnerable Adult 01/03/2021 Active 1 goal linked to 1 goal Vulnerable Adult or Minor scheduled/documen i ntervention or Minor kenyetta intervention scheduled/d ocument Disciplines: ed in this visi t Chcf, Physical Therapy, Occupational Therapy, Speech Language Pathology, Home Health Aide, Medical Social Work, Physical Therapy Wound Care Best Practice - Pain Assessment 01/03/2021 Active 1 goal linked t o 1 goal Pain Assessment and Management scheduled/docume n intervention and Management kenyetta intervention scheduled/d ocument Disciplines: ed in this visi t Chcf, Physical Therapy, Occupational Therapy, Speech Language Pathology, Medical Social Work, Physical Therapy Wound Care Best Practice - Vital Signs 01/03/2021 Active 1 goal linked to 1 goal Vital Signs - Parameters scheduled/documen inte rvention Parameters kenyetta intervention scheduled/d ocument Disciplines: ed in this visi t Chcf, Physical Therapy, Occupational Therapy, Speech Language Pathology, Medical Social Work, Materials Planning Manager, Physical Therapy Wound Care PT Transfer Become more 01/04/2021 Active 1 goal linked to 1 goal Deficit independent to scheduled/documen interven tion Disciplines: decrease kenyetta intervention scheduled/d ocument Physical Therapy, caregiver burden e d in this visit Physical Therapy Wound Care PT Gait Disorder Ambulate safely 01/04/2021 Active 1 goal linked to 1 goal Disciplines: scheduled/documen interventi on Physical Therapy, kenyetta intervention s cheduled/document Physical Therapy ed in th is visit Wound Care Goals Goal Associated Problem Outcome Goal Met? Visit Not es Medication Management (Low Best Practice - No Risk) Medication Management Description: (Low Risk) Verbalizes/demonstrates understanding of medications, including high risk meds, as evidenced by ability to state purpose, dose, effectiveness, potential side effects, special precautions, and storage of meds through the certification period. Vulnerable Adult or Minor Best Practice - No Description: Vulnerable Adult or Be free from verbal, mental, Minor sexual, and physical abuse; including injuries of unknown source neglect and misappropriation of property through the certification period. Pain Assessment and Management Best Practice - Pain No Description: Assessment and Demonstrate effective pain Management management techniques to reduce resting pain to desired goal of 2/10 and pain interfering with activity to daily but not constantly within 4 weeks. Vital Signs Parameters Best Practice - Vital No Description: Signs - Parameters Vital signs within agency parameters through the certification period. Patient Transfer Deficit PT Transfer Deficit No Description: Perform all transfers independently with min UE support and proper form avoiding bending, lifting, or twisting in order to decrease caregiver burden/increase independence within 2 weeks. Patient Gait Disorder PT Gait Disorder No Description: Patient will be able to ambulate on uneven surfaces 300 feet with supervision with least restrictive assistive device with step through gait pattern to improve functional mobility in the community within 2 weeks. Interventions Intervention Associated Status Variance Visit Notes Problem/Goal Assess medications Problem: Best Practice - Medication Management (Low Risk) Comple kenyetta Description: Goal: Medication Management (Low Risk) Assess medications including any high-risk meds for side-effects, drug reactions, interactions, duplicate therapy, omissions, dosage errors, effectiveness, new or changed meds, current ability, knowledge and compliance, storage and disposal. Update medication list. Assess for signs of abuse Problem: Best Practice - Vulnerable Adult or Minor Completed Description: Goal: Vulnerable Adult or Minor Assess for signs of verbal, mental, sexual, and physical abuse; including injuries of unknown source neglect and misappropriation of property. Complete pain assessment. Problem: Best Practice - Pain Assessment and Management Complete d Description: Goal: Pain Assessment and Management Complete verbal/nonverbal pain assessment using a standardized pain tool, including reassessment and the non-physical aspects (emotional, spiritual, cultural) affecting the patient's quality of life. Assess vitals Problem: Best Practice - Vital Signs - Parameters Completed Description: Goal: Vital Signs Parameters Assess vital signs and oxygen sats. Report to MD if outside agency parameters of: Systolic >160 or <100, Diastolic >90 or <50, Temp. >100.5, Resp. >30 or <12, Pulse >100 or <55, and Oxygen sats <89% at rest for more than 5 min. Household transfers Problem: PT Transfer Deficit Completed ins tructed in and Description: Goal: Patient Transfer Deficit f acilitated delivery driver's Assess/monitor/teach side ca r transfer household transfers training c VC for including bed, chair, sit se at positioning and to stand and car body alignm ent . Education for safe Problem: PT Gait Disorder Completed gait training c SEC ambulation Goal: Patient Gait Disorder on l evel and 1 curb Description: style stair outs michell Provide patient/caregiver ho use to garage 90 education for safe ft c VC t o use the ambulation and house for bal assess/monitor support on 1 side understanding and the SEC on the other c VC for sequencing. documented in this encounter Care Teams Bulk Plant Manager Relationship Specialty Start Date End Date Placido Ott MD PCP - General Internal Medicine 10/26/17 10/17/21 [address] [place] [address] documented as of this encounter
--- OUTSIDE RECORDS SUMMARY | 2022-02-24 12:17 | XMS_ITS | Encounter Summary ---
:1935 Author Organization [facility] Address [address] [place] [address] Care Team Providers Name Role Phone Shelly Ott MD Primary Care Provider Reason for Visit Reason Onset Date Comments Refill 10/17/2021 pravastatin (PRAVACH OL) 40 MG tablet Encounter Details Date Type Department Care Team Description 10/17/2021 Refill [facility] Shelly Ott Re fill (pravastatin [place] Spence MD (PRAVACHOL) 40 MG Medicine [address] tablet) [address] [place] [address] [place] [phone] Social History Tobacco Use Types Packs/Day Years [...] documented as of this encounter Nursing Notes Shauna Dawson RN - 10/18/2021 1:20 PM CDT Will deny. Shauna Dawson RN 10/18/2021, 1:21 PM Mere Cee - 10/18/2021 12:11 PM CDT Medication Refill - Overdue Visit Called patient, was: Successful in reaching patient Patient is due for: Office Visit [Ruby Rails Developer: We recently received a refill request for one of your medications. In order to ensure your medication is safe and effective, your clinician needs to see you at least yearly for an office visit. May I help you schedule that office visit?] Patient declined to schedule due to: pt moved down by [facility] he sees a dr Damico now he will have his pharmacy send it to the new provider please disregard [Ruby Rails Developer: I will send a request to see if a temporary refill can be provided. Please check with your pharmacy on the status of your refill.] Mere Cee Please route to: (HP) Care Team Shlomo/ (PN) Clinician Adelaide Rehman RN - 10/17/2021 5:28 PM CDT Further Assistance Needed on Refill from Oven Unloader Patient is overdue for Office visit. Please call patient to schedule a Office/Video Visit and document using .AMITA. After attemptingto schedule patient: Please route to: Clinician/Care Team Pool Requested Prescriptions Pending Prescriptions Disp Refills ??? pravastatin (PRAVACHOL) 40 MG tablet 90 Tablet 0 Sig: Take 1 Tablet (40 mg) by mouth daily. At bedtime Adelaide Rehman RN 10/17/2021, 5:28 PM Interface, Out [employer] Prov Query - 10/17/2021 10:47 AM CDT pravastatin (PRAVACHOL) 40 MG tablet Miscellaneous - 12 Month Visit -> An office visit is overdue (performed over 17 months ago, required every 12 months). Last qualifying visit: 05/21/2020 (with SHELLY OTT) (A more recent visit (in Internal Medicine with ANDRY SOLARES) was found) Next scheduled visit: None Last ordered by SHELLY OTT: 06/13/2021 (126 days ago) QTY: 90, Refills: 0, Sig: take 1 tablet by mouth everyday at bedtime (changed but equivalent) Powered by [employer] Embedded Refills, Reference: [id number], 10/17/2021 10:47:14 AM CDT, Pool: PETER REFILL EULOGIO ([id number]) Mala Sinclair - 10/17/2021 10:46 AM CDT pravastatin (PRAVACHOL) 40 MG tablet LAST FILL: 07/10/2021 QTY: 90 SIG: take 1 tablet by mouth everyday at bedtime Mala Sinclair CMA 10/17/2021 10:46 AM documented in this encounter Plan of Treatment Not on filedocumented as of this encounter Visit Diagnoses Diagnosis Hyperlipidemia, unspecified hyperlipidem ia type ([facility]) documented in this encounter Care Teams Lieutenant Ballistics Relationship Specialty Start Date End Date Shelly Ott MD PCP - General Internal Medicine 10/26/17 10/17/21 [address] [place] [address] documented as of this encounter
--- OUTSIDE RECORDS SUMMARY | 2022-02-24 12:17 | XMS_ITS | Encounter Summary ---
:1935 Author Organization Counts include 234 beds at the [facility] Address [address], [place] [address] Care Team Providers Name Role Phone Placido Ott MD Primary Care Provider Encounter Details Date Type Department Care Team Description 02/13/2021 Lab Visit [facility] Prostate cancer ([facility]) Laboratory [address] [place] [address] Social History Tobacco Use Types Packs/Day Years [...] on file documented as of this encounter Progress Notes Daryn [place], RN - 02/13/2021 10:10 AM CDT Results to be discussed at upcoming appointment. Daryn [place] RN 02/13/2021, 12:34 PM documented in this encounter Plan of Treatment Not on filedocumented as of this encounter Procedures Procedure Name Priority Date/Time Associated Diagnosis Comme nts PROSTATIC SPECIFIC Routine 02/13/2021 10:19 AM Prostate cancer Results for this ANTIGEN (DIAGNOSTIC CDT ([facility]) procedur e are in F/U) the results section. documented in this encounter Results (ABNORMAL) Prostatic Specific Antigen (Diagnostic F/U) (02/13/2021 10:19 AM CDT) P athologist Signature Prostatic 7.7 (H) 0.0 - 4.0 02/13/2021 [place] Specific ng/mL 12:02 PM CDT HOSPITAL LAB Antigen Specimen Anatomical Collection Method / Collection Time Recei anisa Time (Source) Location / Volume Laterality Blood Venipuncture / 02/13/2021 10:19 Unknown AM CDT 10:19 AM CDT Narrative [facility] - 02/13/2021 12:02 PM CDT The Carreon PSA Chemiluminescent immunoas say is used. Results obtained with different test methods or kits cannot be used inte rchangeably. Waqas Rodney MD LAB_1 Performing Organization Address City/State/ZIP Code Phon e Number [facility] [address] [place] [address] documented in this encounter Visit Diagnoses Diagnosis Prostate cancer ([facility]) Malignant neoplasm of prostate documented in this encounter Care Teams Bushwalking Guide Relationship Specialty Start Date End Date Placido Ott MD PCP - General Internal Medicine 10/26/17 10/17/21 [address] [place] [address] documented as of this encounter
--- OUTSIDE RECORDS SUMMARY | 2022-02-24 12:17 | XMS_ITS | Encounter Summary ---
:1935 Author Organization [employer] Address [address] [place] [address] Care Team Providers Name Role Phone Placido Ott MD Primary Care Provider Encounter Details Date Type Department Care Team Description 01/14/2021 Home Care Visit [facility] Bayron Knox MISSED VISIT [address] [id number] [phone] (Wo rk) Social History Tobacco Use Types [...] Care Plan Visit Details Visit Type - SN MISSED VISIT Discipline - [facility]cf Problems Problem Description Start Date Status Goals Interventions Aftercare Assessment of 01/03/2021 Active 1 goal linked to 2 goa l assessment aftercare scheduled/docume interventio ns Disciplines: following general nted scheduled/ documen Chcf surgery intervention kenyetta in this visit Best Practice - Medication 01/03/2021 Active 1 goal linked to 1 g oal Medication Management (Low scheduled/docume int ervention Management (Low risk) nted scheduled /documen Risk) intervention kenyetta in this vis it Disciplines: Chcf, Physical Therapy, Occupational Therapy, Speech Language Pathology, Medical Social Work, Physical Therapy Wound Care Best Practice - Vulnerable Adult 01/03/2021 Active 1 goal linked to 1 goal Vulnerable Adult or Minor scheduled/docume in tervention or Minor nted scheduled/docum en Disciplines: intervention kenyetta in this vis it Chcf, Physical Therapy, Occupational Therapy, Speech Language Pathology, Home Health Aide, Medical Social Work, Physical Therapy Wound Care Best Practice - Pain Assessment 01/03/2021 Active 1 goal linked t o 1 goal Pain Assessment and Management scheduled/docume intervention and Management nted scheduled/docum en Disciplines: intervention kenyetta in this vis it Chcf, Physical Therapy, Occupational Therapy, Speech Language Pathology, Medical Social Work, Physical Therapy Wound Care Urinary - Patient is free of 01/03/2021 Active 1 goal linked to 2 goal Assessments urinary scheduled/docume interventio ns Disciplines: complications nted scheduled/docu men Chcf intervention kenyetta in this visit Goals Goal Associated Problem Outcome Goal Met? Visit Not es Aftercare Assessment Aftercare assessment No Description: Demonstrates healing following surgery to spine as evidenced by no signs/symptoms of infection, tolerating food and fluids, incisions/wounds/drain sites without redness or drainage and vital signs within agency baseline by 6 weeks. Medication Management (Low Best Practice - No Risk) Medication Management Description: (Low Risk) Verbalizes/demonstrates understanding of medications, including high risk meds, as evidenced by ability to state purpose, dose, effectiveness, potential side effects, special precautions, and storage of meds through the certification period. Vulnerable Adult or Minor Best Practice - No Description: Vulnerable Adult or Minor Be free from verbal, mental, sexual, and physical abuse; including injuries of unknown source neglect and misappropriation of property through the certification period. Pain Assessment and Management Best Practice - Pain No Description: Assessment and Management Demonstrate effective pain management techniques to reduce resting pain to desired goal of 2/10 and pain interfering with activity to daily but not constantly within 4 weeks. Urinary Assessments Urinary - Assessments No Description: Patient will have adequate management of urinary retention and enlarged prostate as evidenced by improvement or stabilization of urinary symptoms and functional status per patient's baseline, and free from urinary infection by 6 weeks. Interventions Intervention Associated Problem/Goal Status Variance Visi t Notes Assess incisions Problem: Aftercare assessment Scheduled Description: Goal: Aftercare Assessment Assess incision(s) to lower spine (location) for healing or deterioration, signs of infection Aftercare Assessment Problem: Aftercare assessment Scheduled Description: Goal: Aftercare Assessment Assess lung sounds, edema, nutritional and hydration status, symptoms of nausea or vomiting, bowel sounds, elimination status and energy level/emotional status Assess medications Problem: Best Practice - Medication Management (Low Risk) Schedu led Description: Goal: Medication Management (Low Risk) Assess medications including any high-risk meds for side-effects, drug reactions, interactions, duplicate therapy, omissions, dosage errors, effectiveness, new or changed meds, current ability, knowledge and compliance, storage and disposal. Update medication list. Assess for signs of abuse Problem: Best Practice - Vulnerable Adult or Minor Scheduled Description: Goal: Vulnerable Adult or Minor Assess for signs of verbal, mental, sexual, and physical abuse; including injuries of unknown source neglect and misappropriation of property. Complete pain assessment. Problem: Best Practice - Pain Assessment and Management Schedule d Description: Goal: Pain Assessment and Management Complete verbal/nonverbal pain assessment using a standardized pain tool, including reassessment and the non-physical aspects (emotional, spiritual, cultural) affecting the patient's quality of life. Assess urinary disease Problem: Urinary - Assessments Scheduled Description: Goal: Urinary Assessments Assess urinary retention and enlarged prostate symptom management including sign and symptoms of complications, exacerbation or progression, hydration status, emotional status and energy level. Assess urine Problem: Urinary - Assessments Scheduled Description: Goal: Urinary Assessments Assess urine for: color, clarity, odor, hematuria, oliguria, anuria, dysuria and spasms documented in this encounter Care Teams Biblical Languages Professor Relationship Specialty Start Date End Date Placido Ott MD PCP - General Internal Medicine 10/26/17 10/17/21 [address] [facility] [place] [address] documented as of this encounter
--- OUTSIDE RECORDS SUMMARY | 2022-02-24 12:17 | XMS_ITS | Encounter Summary ---
:1935 Author Organization [facility] Address [address], [place] [address] Care Team Providers Name Role Phone Placido Ott MD Primary Care Provider Reason for Visit Reason Comments Future Appointments Encounter Details Date Type Department Care Team Description [facility] Waqas Rodney App[facility] MD [facility] [address] [place] [address] [place], [place] [phone] Social History Tobacco Use Types Packs/Day Years [...] documented as of this encounter Nursing Notes Daryn Ventura, RN - 07/31/2021 12:11 PM CST Informed patient that I have faxed the PSA order to [phone]. He also requested that we sent an order for a urine sample to make sure that he doesn't have a UTI. Order printed and sent. Pain with urination as well as some pain in his lower abdomen. Comes and goes. Experiences some frequency that changes day by day. Denies fever or chills. Denies hematuria. Instructed to seek out care if symptoms worsen. Daryn Ventura, RN 07/31/2021, 12:14 PM BED WORKER Leann Keenan - 07/31/2021 11:47 AM CST I called patient to schedule a PSA per PVP note. Patient states he lives far away and would like to send the PSA lab to [facility] in [facility]. He stated he will complete thelab there and he was informed that Dr. Rodney will want the PSA order back prior to visit. Leann Keenan 07/31/2021, 11:50 AM BED WORKER documented in this encounter Plan of Treatment Not on filedocumented as of this encounter Visit Diagnoses Diagnosis Urinary problem - Primary Other urinary problems documented in this encounter Care Teams Garment Mender Relationship Specialty Start Date End Date Placido Ott MD PCP - General Internal Medicine 10/26/17 10/17/21 [address] [place] [address] documented as of this encounter
--- OUTSIDE RECORDS SUMMARY | 2022-02-24 12:17 | XMS_ITS | Encounter Summary ---
:1935 Author Organization [employer] Address [address], [place] [address] Care Team Providers Name Role Phone No Primary/Referring, Phy Primary Care Provider Unavailable Reason for Visit Procedure/Equipment (Routine) - Closed Specialty Diagnoses / Procedures Referred By Contact Refer red To Contact Procedures Nicolette Mcclure PA-C CT Angio Head Neck W IV Cont [address] [place] [address] Referral ID Status Reason Start Date Expiration Date Visits Requ ested Visits Authorized [id number] Closed 12/11/2021 03/12/2023 1 1 Encounter Details Date Type Department Care Team Description 12/11/2021 Ancillary Procedure [facility] CT [address] [place] [address] Social History Tobacco Use Types Packs/Day Years [...] Name Priority Date/Time Associated Diagnosis Comme nts CT ANGIO HEAD NECK STAT 12/11/2021 8:26 PM Res ults for this W IV CONT CODE CVA CDT procedure are in the results section. documented in this encounter Visit Diagnoses Not on filedocumented in this encounter Administered Medications Inactive Administered Medications - up to 3 most recent administrations Medication Order MAR Action Action Date Dose Rate Site iohexol (OMNIPAQUE 350) 350 MG/ML Given 12/11/2021 8:26 PM CDT 1 00 mL injection 100 mL 100 mL, Intravenous, ONCE (NON-SCHEDULED), Starting on Thu12/11/21 at 2025, Until Thu12/11/21 at 2025, For 1 dose documented in this encounter Care Teams Oil Lease Broker Relationship Specialty Start Date End Date No Primary/Referring, Phy PCP - General 12/11/21 documented as of this encounter
--- OUTSIDE RECORDS SUMMARY | 2022-02-24 12:17 | XMS_ITS | Encounter Summary ---
:1935 Author Organization [employer] Address [address] [address] Care Team Providers Name Role Phone Placido Ott MD Primary Care Provider Encounter Details Date Type Department Care Team Description 01/10/2021 Home Care Visit [facility] Pebbles Vann, TEL EPHONE ENCOUNTER [place] OTR/L [address] [facility] [address] [place] [address] [phone] Social History Tobacco Use Types Packs/Day Years [...] on filedocumented in this encounter Care Teams Drycleaner Relationship Specialty Start Date End Date Placido Ott MD PCP - General Internal Medicine 10/26/17 10/17/21 [address] [place] [address] documented as of this encounter
--- OUTSIDE RECORDS SUMMARY | 2022-02-24 12:17 | XMS_ITS | Encounter Summary ---
:1935 Author Organization [employer] Address [address], [place] [address] Care Team Providers Name Role Phone No Primary/Referring, Phy Primary Care Provider Unavailable Reason for Visit Procedure/Equipment (Routine) - Closed Specialty Diagnoses / Procedures Referred By Contact Refer red To Contact Procedures Nicolette Mcclure PA-C MR Brain WO IV Cont [address] [place] [address] Referral ID Status Reason Start Date Expiration Date Visits Requ ested Visits Authorized [id number] Closed 12/11/2021 03/12/2023 1 1 Encounter Details Date Type Department Care Team Description 12/11/2021 Ancillary Procedure [facility] Ra dioly MRI [address] [place] [address] Social History Tobacco Use Types Packs/Day Years [...] Name Priority Date/Time Associated Diagnosis Comme nts MR BRAIN WO IV CONT STAT 12/11/2021 10:12 PM R esults for this CDT procedure are i n the results section. documented in this encounter Results MR Brain WO IV Cont (12/11/2021 10:12 PM CDT) Anatomical Region Laterality Modality Head Magnetic Resonance Specimen (Source) Anatomical Collection Method Collection Time Re ceived Time Location / / Volume Laterality 12/11/2021 10:12 PM CDT Narrative 12/11/2021 10:23 PM CDT EXAM: MR BRAIN WO IV CONT LOCATION: [facility] DATE/TIME: 12/11/2021 10:12 PM INDICATION: Neuro deficit, acute, stroke suspected; double vision, dizziness COMPARISON: CTA head and neck on the [facility] TECHNIQUE: Routine multiplanar multisequ ence head MRI without intravenous contrast. FINDINGS: INTRACRANIAL CONTENTS: No acute or [place] infarct. No mass, acute hemorrhage, or extra-axial [...] EXAM: MR BRAIN WO IV CONT LOCATION: [facility] DATE/TIME: 12/11/2021 10:12 PM INDICATION: Neuro deficit, acute, stroke suspected; double vision, dizziness COMPARISON: CTA head and neck on the TECHNIQUE: Routine multiplanar multisequ ence head MRI without intravenous contrast. FINDINGS: INTRACRANIAL CONTENTS: No acute or subac [place] infarct. No mass, acute hemorrhage, or extra-axial [...] Age-related changes. Nicolette Mcclure PA-C RAD MRI documented in this encounter Visit Diagnoses Not on filedocumented in this encounter Care Teams Chief Legal Officer Relationship Specialty Start Date End Date No Primary/Referring, Phy PCP - General 12/11/21 documented as of this encounter
--- OUTSIDE RECORDS SUMMARY | 2022-02-24 12:17 | XMS_ITS | Encounter Summary ---
:1935 Author Organization Counts include 234 beds at the [facility] Address [address], [place] [address] Care Team Providers Name Role Phone Placido Ott MD Primary Care Provider Encounter Details Date Type Department Care Team Description 02/15/2021 Telemedicine [facility] Waqas Rodney ostate cancer (HRC) [place] Edson Griffith MD (Primary Dx) [facility] [address] [place] [address] [place], [place] [phone] [id number] Social History Tobacco Use Types Packs/Day Years [...] on file documented as of this encounter Patient Instructions Patient InstructionsStWaqas haynes MD - 02/15/2021 9:00 AM CDT A 1.prostate cancer low risk 2.rising PSA still below 10. 3.on SIC and going well no UTIs or difficulties. 4.Reassured PSA is the gonzales appt. P 1. Recheck PSA 6mos [place] 2.vid visit ok unless PSA 8.5 or higher 3.continue cathing [facility] You will see results in your [employer] online account as soon as they are available. Keep in mind you may see these results before your physician-we will contact you if we need to discuss the results or any next steps in your care. documented in this encounter Progress Notes Waqas Rodney MD - 02/15/2021 9:00 AM CDT Total time spent on gathering information, documentation, history and physical findings 20 min VID visit patient at home doctor in office. S this patient is being seen for prostate cancer. He has low risk prostate cancer, PSA cathing 5x a day. No UTIs O Patient alert and oriented. No obvious neurologic deficit. A 1.prostate cancer low risk 2.rising PSA still below 10. 3.on SIC and going well no UTIs or difficulties. 4.Reassured PSA is the gonzales appt. P 1. Recheck PSA 6mos (he is moving to [place]) 2.vid visit ok unless PSA 8.5 or higher 3.continue cathing [facility] You will see results in your [employer] online account as soon as they are available. Keep in mind you may see these results before your physician-we will contact you if we need to discuss the results or any next steps in your care. documented in this encounter Plan of Treatment Not on filedocumented as of this encounter Visit Diagnoses Diagnosis Prostate cancer (HRC) - Primary Malignant neoplasm of prostate documented in this encounter Care Teams Onion Farmer Relationship Specialty Start Date End Date Placido Ott MD PCP - General Internal Medicine 10/26/17 10/17/21 [address] [place] [address] documented as of this encounter
--- OUTSIDE RECORDS SUMMARY | 2022-02-24 12:17 | XMS_ITS | Encounter Summary ---
:1935 Author Organization [facility] Address [address] [place] [id number] Care Team Providers Name Role Phone Placido Ott MD Primary Care Provider Encounter Details Date Type Department Care Team Description 01/18/2021 Home Care Visit [facility] DISCHARGE [address] [id number] [phone] Social History Tobacco Use Types Packs/Day Years [...] Sign Reading Time Taken Comments Blood Pressure 139/81 01/18/2021 11:21 AM CDT Pulse 73 01/18/2021 11:02 AM CDT Temperature 36.6 ??C (97.8 ??F) 01/18/2021 11:02 AM CDT Respiratory Rate 18 01/18/2021 11:02 AM CDT Oxygen Saturation 97% 01/18/2021 11:02 AM CDT Inhaled Oxygen Concentration - - Weight - - Height - - Body Mass Index - - documented in this encounter Plan of Treatment Not on filedocumented as of this encounter Visit Diagnoses Not on filedocumented in this encounter Home Health Visit - Care Plan Visit Details Visit Type - SN Discipline Discharge Discipline - Group Home Problems Problem Description Start Status Goals Interventions Date Integumentary - Integumentary - 01/03/2021 Active 1 goal linked t o 1 goal Surgical Surgical scheduled/docume interventio n Disciplines: nted scheduled/docum en Group Home intervention kenyetta in this visit Coordination of Coordination of 01/03/2021 Active 1 goal linked t o 1 goal Care Following Care following scheduled/docume intervention Surgery surgery nted scheduled/docum en Disciplines: intervention kenyetta in this vis it Group Home Teaching/Learning Verbalizes ability 01/03/2021 Active 1 goal og ked to 1 goal needs after to manage symptoms scheduled/docume intervention surgery following surgery nted scheduled/ documen Disciplines: intervention kenyetta in this vis it Group Home Aftercare Assessment of 01/03/2021 Active 1 goal linked to 2 goa l assessment aftercare following scheduled/docume inte rventions Disciplines: general surgery nted scheduled/do cumen Group Home intervention kenyetta in this visit Best Practice - 01/03/2021 Active 1 goal linked to 1 g oal Nutrition/Hydrati scheduled/docume i ntervention on nted scheduled/docum en Disciplines: intervention kenyetta in this vis it Group Home, Physical Therapy, Occupational Therapy, Speech Language Pathology, Medical Social Work, Physical Therapy Wound Care Best Practice - 01/03/2021 Active 1 goal linked to 1 g oal Advance Care scheduled/docume interv ention Planning nted scheduled/docum en Disciplines: intervention kenyetta in this vis it Group Home, Physical Therapy, Occupational Therapy, Speech Language Pathology, Medical Social Work, Physical Therapy Wound Care Best Practice - 01/03/2021 Active 1 goal linked to 1 g oal Risk for scheduled/docume interven tion infection nted scheduled/docum en Disciplines: intervention kenyetta in this vis it Group Home, Physical Therapy, Occupational Therapy, Speech Language Pathology, Medical Social Work, Physical Therapy Wound Care Best Practice - Coordination of 01/03/2021 Active 1 goal linked t o 1 goal Coordination of Care scheduled/docume int ervention Care nted scheduled/docum en Disciplines: intervention kenyetta in this vis it Group Home, Physical Therapy, Occupational Therapy, Speech Language Pathology, Medical Social Work, Physical Therapy Wound Care Best Practice - Medication 01/03/2021 Active 1 goal linked to 3 g oal Medication Management (Low scheduled/docume int erventions Management (Low risk) nted scheduled /documen Risk) intervention kenyetta in this vis it Disciplines: Group Home, Physical Therapy, Occupational Therapy, Speech Language Pathology, Medical Social Work, Physical Therapy Wound Care Best Practice - Risk for 01/03/2021 Active 1 goal linked to 1 g oal Risk for Hospitalization scheduled/docume int ervention Hospitalization nted scheduled/docum en Disciplines: intervention kenyetta in this vis it Group Home, Physical Therapy, Occupational Therapy, Speech Language Pathology, Medical Social Work, Physical Therapy Wound Care Best Practice - Vulnerable Adult or 01/03/2021 Active 1 goal link ed to 1 goal Vulnerable Adult Minor scheduled/docume in tervention or Minor nted scheduled/docum en Disciplines: intervention kenyetta in this vis it Group Home, Physical Therapy, Occupational Therapy, Speech Language Pathology, Home Health Aide, Medical Social Work, Physical Therapy Wound Care Best Practice - Pain Assessment and 01/03/2021 Active 1 goal link ed to 3 goal Pain Assessment Management scheduled/docume int erventions and Management nted scheduled/docum en Disciplines: intervention kenyetta in this vis it Group Home, Physical Therapy, Occupational Therapy, Speech Language Pathology, Medical Social Work, Physical Therapy Wound Care Best Practice - Fall Prevention 01/03/2021 Active 1 goal linked t o 1 goal Falls Prevention scheduled/docume interventio n Disciplines: nted scheduled/docum en Group Home, intervention kenyetta in this visit Physical Therapy, Occupational Therapy, Speech Language Pathology, Medical Social Work, Physical Therapy Wound Care Best Practice - Vital Signs 01/03/2021 Active 1 goal linked to 1 goal Vital Signs - Parameters scheduled/docume inter vention Parameters nted scheduled/docum en Disciplines: intervention kenyetta in this vis it Group Home, Physical Therapy, Occupational Therapy, Speech Language Pathology, Medical Social Work, Medical Technologist Generalist, Physical Therapy Wound Care Urinary - Patient is free of 01/03/2021 Active 1 goal linked to 2 goal Assessments urinary scheduled/docume interventio ns Disciplines: complications nted scheduled/docu men Group Home intervention kenyetta in this visit Goals Goal Associated Problem Outcome Goal Met? Visit Not es Integumentary - Surgical Integumentary - Surgical No Description: Surgical incision located lower spine, to show signs of healing as evidenced by no purulent drainage and free of infection signs/symptoms. Will demonstrate understanding of all aspects of cares in 4 weeks. Coordination of Care Coordination of Care No Following Surgery Following Surgery Description: Client will have support services needed to continue to heal by 6 weeks. Teaching/Learning Needs Teaching/Learning needs No after Surgery after surgery Description: Verbalizes understanding and demonstrates post-operative management of symptoms, wound, medications, exercise/activity/restrictio ns and complications/actions to take by 6 weeks. Aftercare Assessment Aftercare assessment No Description: Demonstrates healing following surgery to spine as evidenced by no signs/symptoms of infection, tolerating food and fluids, incisions/wounds/drain sites without redness or drainage and vital signs within agency baseline by 6 weeks. Nutritional Risk Score Best Practice - No Description: Nutrition/Hydration Verbalizes and demonstrates understanding of proper nutrition and/or fluid intake, specialized diet within 4 weeks. Patient/caregiver will Best Practice - Advance No verbalize understanding of Care Planning advance care planning. Risk for Infection Best Practice - Risk for No Description: infection Patient or caregiver will verbalize understanding of the following through the end of the certification period: 1. risk for infection 2. strategies for infection prevention and control 3. signs and symptoms warranting MD notification to reduce risk of COVID-19 infection Coordination of Care Best Practice - No Description: Coordination of Care Client will receive education and training necessary to promote self-care skills to facilitate timely discharge from home care. Medication Management (Low Best Practice - Medication No Risk) Management (Low Risk) Description: Verbalizes/demonstrates understanding of medications, including high risk meds, as evidenced by ability to state purpose, dose, effectiveness, potential side effects, special precautions, and storage of meds through the certification period. Risk for Hospitalization Best Practice - Risk for No Description: Hospitalization Verbalizes understanding of risk factors and will participate in plan of care within the certification period. Vulnerable Adult or Minor Best Practice - Vulnerable No Description: Adult or Minor Be free from verbal, mental, sexual, and physical abuse; including injuries of unknown source neglect and misappropriation of property through the certification period. Pain Assessment and Best Practice - Pain No Management Assessment and Management Description: Demonstrate effective pain management techniques to reduce resting pain to desired goal of 2/10 and pain interfering with activity to daily but not constantly within 4 weeks. Fall Prevention Best Practice - Falls No Description: Prevention Verbalizes understanding of fall prevention strategies and demonstrates behavioral/environmental changes as evidenced by the ability to move around safely without falls through the certification period. Vital Signs Parameters Best Practice - Vital Signs No Description: - Parameters Vital signs within agency parameters through the certification period. Urinary Assessments Urinary - Assessments No Description: Patient will have adequate management of urinary retention and enlarged prostate as evidenced by improvement or stabilization of urinary symptoms and functional status per patient's baseline, and free from urinary infection by 6 weeks. Interventions Intervention Associated Problem/Goal Status Variance Visi t Notes Incisional Care Problem: Integumentary - Surgical Completed Description: Goal: Integumentary - Surgical Perform incisional dressing change located L3-L4 steri strips intact, if they start to fall off, may trim edges but do not remove. Mepilex border 4x4 over steri strips, may remove 01/07/21. Provider Problem: Coordination of Care Following Surgery Completed Description: Goal: Coordination of Care Following Surgery Surgeon Dr. Sheffield Teach post-op cares Problem: Teaching/Learning needs after surgery Completed Description: Goal: Teaching/Learning Needs after Surgery Teach post-operative cares for procedure L3-L4 lateral recess decompression via right sided approach, including signs and symptoms of complications and when to report to MD TRUNG or 911, edema management, application of compression stockings or device, use of cold therapy to L3-L4 site for 20 minutes every hour as needed, activity precautions or restrictions, diet strategies, bowel management and pain management strategies to aid in the healing and recovery process. Assess incisions Problem: Aftercare assessment Completed CD I, CAITLYN, NO Description: Goal: Aftercare Assessment SWELL ING OR Assess incision(s) to REDNES S NOTED. NO lower spine (location) for N EW DRAINAGE healing or deterioration, signs of infection Aftercare Assessment Problem: Aftercare assessment Completed NO CONCERNS NOTED Description: Goal: Aftercare Assessment Assess lung sounds, edema, nutritional and hydration status, symptoms of nausea or vomiting, bowel sounds, elimination status and energy level/emotional status Teach importance of Problem: Best Practice - Nutrition/Hydration Co mpleted PT REPORTS nutrition/hydration Goal: Nutritional Risk Score DELORES QUATE PROTEIN Description: INTAKE, AND FLUI D Teach importance of INTAKE nutrition and hydration to aid in the healing or management of disease or condition. Review code status and Problem: Best Practice - Advance Care Josefa nning Completed goals of care with patient Goal: Patient/caregiver will verbalize understanding o f advance care planning. Description: Code Status: Full Code Teach risk of infection Problem: Best Practice - Risk for infection Completed Description: Goal: Risk for Infection Teach patient/caregiver the followin. risk for infection 2. measures for prevention and spreading of infection including social distancing, hand hygiene, and environmental cleaning 3. signs/symptoms warranting MD notification for COVID-19 and other potential infections Timely discharge Problem: Best Practice - Coordination of Care Completed DDC COMPLETED Description: Goal: Coordination of Care TODAY Facilitate timely discharge: plan for discharge in 6 weeks, coordinating with patient, patient's family, homecare and surgical team. Assess medications Problem: Best Practice - Medication Management (Low Risk) Comple kenyetta NO CHANGES Description: Goal: Medication Management (Low Risk) Assess medications including any high-risk meds for side-effects, drug reactions, interactions, duplicate therapy, omissions, dosage errors, effectiveness, new or changed meds, current ability, knowledge and compliance, storage and disposal. Update medication list. Teach medications Problem: Best Practice - Medication Management (Low Risk) Comple kenyetta Description: Goal: Medication Management (Low Risk) Teach client and caregiver purpose, use, route, storage, disposal, side-effects, and potential interactions, when to call provider, and special precautions of medications including high-risk medications. Medication management Problem: Best Practice - Medication Management (Low Risk) Comple kenyetta Description: Goal: Medication Management (Low Risk) Currently medication management: independently from bottle. Communicate any medication changes to Zaid. Assess/educate re: Problem: Best Practice - Risk for Hospitalizatio n Completed NO IMMEDIATE rehospitalization risk Goal: Risk for Hospitalization C ONCERNS NOTED Description: Patient has been assessed and educated of risk for rehospitalization based on factors: decline in mental, emotional or behavioral status i the past 3 months, reported or observed history of difficulty complying with any medication instructions in the past 3 months, currently taking 5 or more medications and currently reports exhaustion. Instructed client and caregiver on when and how to call RN professional bondsman 05/01, MD or 911 if needed. Assess for signs of abuse Problem: Best [...] cultural) affecting the patient's quality of life. Teach pharmacologic pain Problem: Best Practice - Lisa n Assessment and Management Completed management. Goal: Pain Assessment and Management Description: Teach safe use, safe storage, and safe disposal of opioid/non-opioid pain medications. Develop pain management plan with patient/caregiver as follows: decrease opioid use by 01/14/21 and use prescribed PRN pain medications as follows: acetaminophen 1000mg three times daily, oxycodone IR 5mg every 8 hours as needed. Teach pain management Problem: Best Practice - Pain Assessment and Management Complete d Description: Goal: Pain Assessment and Management Teach/perform pain management techniques of: Ice: Apply ice pack to lower back for 20 minutes every hour as needed for pain > . Place towel between ice pack and skin. Remove if cold becomes uncomfortable and check skin for redness persisting longer than 10 minutes. Notify Home Care if redness/discomfort with treatment persists. Teach fall prevention Problem: Best Practice - Falls Prevention Com pleted strategies Goal: Fall Prevention Description: Teach fall prevention strategies including how to set up the home, use of DME, incontinence pads, proper lighting, clear pathways, caregiver assistance, safe footwear, compliance with HEP, care with sit to stand, caregiver supervision with ambulation and transfers, medications, nutrition, hydration, vision, hearing, environmental safety issues and unsafe footwear. Assess vitals Problem: Best Practice - Vital Signs - Parameters Completed Description: Goal: Vital Signs Parameters Assess vital signs and oxygen sats. Report to MD if outside agency parameters of: Systolic >160 or <100, Diastolic >90 or <50, Temp. >100.5, Resp. >30 or <12, Pulse >100 or <55, and Oxygen sats <89% at rest for more than 5 min. Assess urinary disease Problem: Urinary - Assessments Completed Description: Goal: Urinary Assessments Assess urinary retention and enlarged prostate symptom management including sign and symptoms of complications, exacerbation or progression, hydration status, emotional status and energy level. Assess urine Problem: Urinary - Assessments Completed Description: Goal: Urinary Assessments Assess urine for: color, clarity, odor, hematuria, oliguria, anuria, dysuria and spasms documented in this encounter Care Teams Hand Edger Relationship Specialty Start Date End Date Placido Ott MD PCP - General Internal Medicine 10/26/17 10/17/21 [address] [place] [address] documented as of this encounter
--- OUTSIDE RECORDS SUMMARY | 2022-02-24 12:17 | XMS_ITS | Encounter Summary ---
:1935 Author Organization [facility] Address [address], [place] [address] Care Team Providers Name Role Phone Placido Ott MD Primary Care Provider Reason for Visit Reason Comments FYI Upcoming appointment on 2021 Encounter Details Date Type Department Care Team Description 08/01/2021 Telephone [facility] Waqas Rodney I (Upcoming Beatriz Griffith MD appointment on [facility] [address] 08/13/2021) [address] [place] [address] [place], [place] [phone] [id number] Social History Tobacco Use Types Packs/Day Years [...] documented as of this encounter Nursing Notes Deepika Arellano, RN - 08/01/2021 4:45 PM CST Noted. Deepika Arellano RN 08/01/2021, 4:45 PM K WRITER SALESPERSON Michaela Pro - 08/01/2021 4:42 PM CST Reason for call? Patient states I will be switching my appointment on the 13 of August to a video visit instead of an in office visit - I just thought I should let you know Best time to reach you? anytime Ok to leave a detailed message? yes Michaela Pro ....................................08/01/2021 4:42 PM K WRITER SALESPERSON documented in this encounter Plan of Treatment Not on filedocumented as of this encounter Visit Diagnoses Not on filedocumented in this encounter Care Teams Senior C Web Developer Relationship Specialty Start Date End Date Placido Ott MD PCP - General Internal Medicine 10/26/17 10/17/21 [address] [place] [address] documented as of this encounter
--- OUTSIDE RECORDS SUMMARY | 2022-02-24 12:17 | XMS_ITS | Encounter Summary ---
:1935 Author Organization [facility] Address [address], [place] [address] Care Team Providers Name Role Phone Placido Ott MD Primary Care Provider Encounter Details Date Type Department Care Team Description 08/15/2021 Orders Only HIM DEPARTMENT Provider, Mara madsen [place] [address] Social History Tobacco Use Types Packs/Day Years [...] Name Priority Date/Time Associated Diagnosis Comme nts LABORATORY REPORT 08/15/2021 Results fo r this procedure are in the resu lts section. documented in this encounter Results LABORATORY REPORT (08/15/2021) Narrative This result has an attachment that is no t available. Interface Provider DUMMY/OTHER/AR documented in this encounter Visit Diagnoses Not on filedocumented in this encounter Care Teams Military Technician Relationship Specialty Start Date End Date Placido Ott MD PCP - General Internal Medicine 10/26/17 10/17/21 [address] [place] [address] documented as of this encounter
--- OUTSIDE RECORDS SUMMARY | 2022-02-24 12:17 | XMS_ITS | Encounter Summary ---
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 ?? NECK CTA: 1. No measurable stenosis or dissection. [BS] 2120 Neurology: -Does sound like peripheral etiology based on eye exam -Recommending diffusion weighted MRI now to help determine the no tPA is correct option [BS] 2122 Discussed with Stroke radiologist about emergent need for DW MRI read [BS] 2199 Labs and EKG without concerning abnormality [LS] 2205 Received call from radiologist stating no stroke is visualized on MRI. [LS] 2244 MR Brain WO IV Cont IMPRESSION: 1. No acute infarct, hemorrhage or mass. 2. Ventriculomegaly may be disproportionate to cerebral atrophy. Correlate for symptoms of normal pressure/nonobstructive hydrocephalus. 3. Age-related changes. [LS] [facility] Dec 12, 2021 0009 Patient continues to have symptoms. Plan for admission to medicine [LS] ED Course User Index [BS] Bakari Croft MD [LS] Nicolette Mcclure PA-C Clinical Impressions as of 12/12/21 1121 Diplopia Vertigo Nausea documented in this encounter Plan of Treatment Scheduled Referrals Name Type Priority Associated Diagnoses Order [facility] Home Care Referral Routine Diplopia Ordered: 2021 Primary Care Referral Routine Diplopia Ordered: 2021 Ophthalmology Referral - Referral Routine Diplopia Ord ered: 12/12/2021 Adult/Peds documented as of this encounter Procedures Procedure [...] CDT procedure are in the results section. EXTRA BLUE TOP TUBE [...] procedur e are in the results section. TROPONIN I STAT 12/11/2021 8:02 PM Results f or this CDT procedure are i n the results section. COMPLETE BLOOD COUNT-NO STAT 12/11/2021 8:02 PM Results for this DIFF CDT procedure are i n the results section. INR/PROTIME STAT 12/11/2021 8:02 [...] EXAM: MR BRAIN WO IV CONT LOCATION: [facility] DATE/TIME: 12/11/2021 10:12 PM INDICATION: Neuro deficit, acute, stroke suspected; double vision, dizziness COMPARISON: CTA head and neck on the [facility] TECHNIQUE: Routine multiplanar multisequ ence head MRI without intravenous contrast. FINDINGS: INTRACRANIAL CONTENTS: No acute or subac citizen [place] infarct. No mass, acute hemorrhage, or extra-axial [...] pressure/nonobstructive hydrocephalus. 3. ??Age-related changes. Procedure Note May, Lamberto Griffith MD - 12/11/2021Formatti ng of this note might be different from the original. EXAM: MR BRAIN WO IV CONT LOCATION: [facility] DATE/TIME: 12/11/2021 10:12 PM INDICATION: Neuro deficit, acute, stroke suspected; double vision, dizziness COMPARISON: CTA head and neck on the [facility] TECHNIQUE: Routine multiplanar multisequ ence head MRI without intravenous contrast. FINDINGS: INTRACRANIAL CONTENTS: No acute or subac citizen [place] infarct. No mass, acute hemorrhage, or extra-axial [...] At Signature COVID-19 Not Detected Not 12/11/2021 [facility] Interpretation Detected 9:45 PM HOSPITAL CDT LAB Source Nasopharyngeal 12/11/2021 [facility] swab 9:45 PM HOSPITAL CDT LAB Specimen Anatomical Collection Method Collection Time Receive d Time (Source) Location / / Volume Laterality Swab (Source Non-blood 12/11/2021 8:56 PM 9:04 Required) Collection / CDT PM CDT (Nasopharyngeal Unknown swab) Narrative [facility] - 12/11/2021 9:45 PM CDT Test performed by real-time PCR. This test has been authorized by the FDA under an Emergency Use Authorization (EUA) for use by authorized laboratories. Nicolette Mcclure PA-C LAB_1 Performing Organization Address City/State/ZIP Code Phon e Number [facility] [address] [place] [address] CT Angio Head Neck W IV Cont Code CVA (12/11/2021 8:26 PM CDT) Anatomical Region Laterality Modality Head, Vascular Computed Tomography Specimen (Source) Anatomical Collection Method Collection Time Re ceived Time Location / / Volume Laterality 12/11/2021 8:26 PM CDT Narrative 12/11/2021 8:39 PM CDT EXAM: CT ANGIO HEAD NECK W IV CONT CODE CVA LOCATION: [facility] DATE/TIME: 12/11/2021 8:26 PM INDICATION: Neuro [...] aneurysm, or high flow vascular malformation. Standard [place] anatomy. POSTERIOR CIRCULATION: No stenosis/occlu [...] NECK W IV CONT CODE CVA LOCATION: [facility] DATE/TIME: 12/11/2021 8:26 PM INDICATION: Neuro [...] aneurysm, or high flow vascular malformation. Standard [place] anatomy. POSTERIOR CIRCULATION: No stenosis/occlu [...] GHP QTc 449 ms [facility] P [place] 54 degrees MUSE [facility] R [place] -11 degrees [facility]USE [facility] T [place] 15 degrees [facility]USE [facility] Specimen (Source) Anatomical Collection Method Collection Time Re ceived Time Location / / Volume Laterality 12/11/2021 8:25 PM CDT Narrative [facility] - 12/12/2021 3:06 PM CDT Poor data quality, interpretation may be adversely affected Sinus rhythm Normal ECG When compared with ECG of 19-DEC-2020 15 :28, No significant change was found Confirmed by Hilary Chatterjee ([id number]) on 3:06:26 PM Procedure Note Hilary Chatterjee MD - 12/12/2021Formatti ng of this note might be different from the original. Poor data quality, interpretation ma y be adversely affected Sinus rhythm Normal ECG When compared with ECG of 19-DEC-2020 15 :28, No significant change was found Confirmed by Hilary Chatterjee ([id number]) on 3:06:26 PM Nicolette Mcclure PA-C EKG Performing Organization Address City/State/ZIP Code Phon e Number [facility] [address] [place] [address] Extra Blue top tube (12/11/2021 8:02 PM CDT) [facility] Method Time Signature Extra Blue Top Specimen 12/11/2021 [facility] Drawn will be held 10:02 PM CDT HOSPITAL LAB for 3 days Specimen Anatomical Collection Method / Collection Time Recei anisa Time (Source) Location / Volume Laterality Blood Venipuncture / 12/11/2021 8:02 12/11/2021 8:05 Unknown PM CDT PM CDT Nicolette Mcclure PA-C LAB_1 Performing Organization Address City/[facility]/ZIP Code Phon e Number [facility] [address] [place] [address] Troponin I (12/11/2021 8:02 PM CDT) athologist Signature Troponin I <0.01 0.00 - 0.03 12/11/2021 [facility] ng/mL 8:31 PM CDT HOSPITAL LAB Specimen Anatomical Collection Method / Collection Time Recei anisa Time (Source) Location / Volume Laterality Blood Venipuncture / 12/11/2021 8:02 12/11/2021 8:05 Unknown PM CDT PM CDT Nicolette Khanna Kami SINGLETON-C LAB_1 Performing Organization Address City/[facility]/ZIP Code Phon e Number [facility] [address] [place] [address] [phone] aPTT (Activated Partial Thromboplastin Time) (12/11/2021 8:02 PM CDT) athologist Signature APTT 35.9 22.5 - 36.5 12/11/2021 [facility] Seconds 8:16 PM CDT HOSPITAL LAB Specimen Anatomical Collection Method / Collection Time Recei anisa Time (Source) Location / Volume Laterality Blood Venipuncture / 12/11/2021 8:02 12/11/2021 8:05 Unknown PM CDT PM CDT Nicolette Khanna Kami SINGLETON-C LAB_1 Performing Organization Address [facility]/ZIP Code Phon e Number [facility] [address] [place] [address] INR/Protime (PT/INR) (12/11/2021 8:02 PM CDT) athologist Signature Protime 12.7 11.8 - 14.6 12/11/2021 [facility] Seconds 8:16 PM CDT [facility] INR 1.0 0.9 - 1.1 12/11/2021 [facility] 8:16 PM CDT HOSPITAL LAB Specimen Anatomical Collection Method / Collection Time Recei anisa Time (Source) Location / Volume Laterality Blood Venipuncture / 12/11/2021 8:02 12/11/2021 8:05 Unknown PM CDT PM CDT Narrative [facility] - 12/11/2021 8:16 PM CDT Therapeutic range determined by protocol established by anticoagulation provider. Nicolette Khanna Kami SINGLETON-C LAB_1 Performing Organization Address [facility]/ZIP Code Phon e Number [facility] [address] [place] [address] (ABNORMAL) Basic Metabolic Panel (K, Na, CO2, Cl, Gluc, BUN, Creat, Ca) (Chem 8) (12/11/2021 8:02 PMCDT) Analysis Performed At Patho logist Time Signature Sodium 139 136 - 145 12/11/2021 [facility] mmol/L 8:[address] [facility] Potassium 4.4 3.5 - 5.1 12/11/2021 [facility] mmol/L 8:[address] [facility] Chloride 106 98 - 109 12/11/2021 [facility] mmol/L 8:[address] [facility] CO2 22 20 - 29 12/11/2021 [facility] mmol/L 8:[address] [facility] Anion Gap 11 7 - 16 12/11/2021 [facility] mmol/L 8:24 [facility] Calcium 8.8 8.4 - 10.4 12/11/2021 [facility] mg/dL 8:24 [facility] BUN 18 7 - 26 12/11/2021 [facility] mg/dL 8:[address] [facility] Creatinine 1.23 (H) 0.73 - 12/11/2021 [facility] 1.18 mg/dL 8:[address] [facility] GFR, Estimated 57 (L) >60 12/11/2021 [facility] mL/min/1.7 8:24 [facility] 3m2 Glucose 96 70 - 100 12/11/2021 [facility] mg/dL 8:24 [facility] Comment: The given reference range is fo r the fasting state. Non-fasting reference range for glucose is 70 - 180 mg/dL. Specimen Anatomical Collection Method / Collection Time Recei anisa Time (Source) Location / Volume Laterality Blood Venipuncture / 12/11/2021 8:02 12/11/2021 8:05 Unknown PM CDT PM T Narrative [facility] - 12/11/2021 8:24 PM T The National Kidney Disease Education Pr ogram suggests measuring Cystatin C in patients with eGFRcrea of 45 to 59 ml/mi n/1.73^2 who do not have other markers of kidney damage (i.e. elevated urine Album in/Creatinine Ratio or a prior Cystatin C confirming the presence of chronic kidne y disease). Nicolette Mcclure PA-C LAB_1 Performing Organization Address City/[facility]/ZIP Code Phon e Number [facility] [address] [place] [address] [phone] Hemogram with Platelets (12/11/2021 8:02 PM CDT) P athologist Signature WBC 6.5 3.5 - 10.5 12/11/2021 [facility] x10(9)/L 8:09 PM CDT HOSPITAL LAB RBC 4.74 4.32 - 12/11/2021 [place] 5.72 8:09 PM CDT HOSPITAL LAB x10(12)/L Hemoglobin 14.5 13.5 - 12/11/2021 [facility] 17.5 g/dL 8:09 PM CDT HOSPITAL LAB HCT 43.6 38.8 - 12/11/2021 [facility] 50.0 % 8:09 PM CDT HOSPITAL LAB MCV 92.0 80.0 - 12/11/2021 [facility] 100.0 fL 8:09 PM CDT HOSPITAL LAB MCH 30.6 27.6 - 12/11/2021 [facility] 33.3 pg 8:09 PM CDT HOSPITAL LAB MCHC 33.3 31.5 - 12/11/2021 [facility] 35.2 g/dL 8:09 PM CDT HOSPITAL LAB RDW 13.9 11.9 - 12/11/2021 [facility] 15.5 % 8:09 PM CDT HOSPITAL LAB Platelets 212 150 - 450 12/11/2021 [facility] x10(9)/L 8:09 PM CDT HOSPITAL LAB Automated NRBC 0 <=0 /100 12/11/2021 [facility] WBC 8:09 PM CDT HOSPITAL LAB Specimen Anatomical Collection Method / Collection Time Recei anisa Time (Source) Location / Volume Laterality Blood Venipuncture / 12/11/2021 8:02 12/11/2021 8:05 Unknown PM CDT PM CDT Nicolette Mcclure PA-C LAB_1 Performing Organization Address City/[facility]/ZIP Code Phon e Number [facility] [address] [place] [address] documented in this encounter Visit Diagnoses Diagnosis Diplopia - Primary Vertigo Dizziness and giddiness Nausea Nausea alone Dizziness Dizziness and giddiness Nihss score 0 Contact with and (suspected) exposure to covid-19 Gout, unspecified cause, unspecified chr onicity, unspecified site Uncomplicated asthma, unspecified asthma severity, unspecified whether persistent (HRC) Gastroesophageal reflux disease, unspeci fied whether esophagitis present Glaucoma, unspecified glaucoma type, uns pecified laterality Personal history of nicotine dependence Personal history of tobacco use, present ing hazards to health Acquired cerebral ventriculomegaly (HRC) Mild persistent asthma without complicat ion (HRC) Unspecified asthma Prostate cancer (HRC) Malignant neoplasm of prostate Vertebrobasilar artery syndrome Plan of Care - Lana Shin RN - 12/12/2021 11:46 AM CDT [facility] Discharge Note - Nursing Admission Date/Time: 12/11/2021 7:43 PM Attending MD: Monica Kim MBBS Patient discharged: to Home. Discharge Date: 12/12/2021 Discharge Time: 11:46 AM Patient accompanied by: self and spouse. Transported by: Wheelchair Valuables were taken home by patient: Yes Discharge instructions given and explained to patient: Yes Discharge Patient Education Plan completed, taught, and provided to patient/caregiver at discharge: Yes Discussed medication risks with patient Patient understands medications usage and side effects Patient understands diagnosis Action Plan for management of symptoms/side effects/complications requiring medical attention established and shared with patient/caregiver Was patient discharged on Warfarin? {(Do not delete line; Warfarin documentation is required) No Patients general condition on discharge: stable All medical devices (telemetry/IV/etc) unless otherwise ordered, have been removed and stored: Yes --- End of Report --- Plan of Care - Christina Akins OTR/[place] - 12/12/2021 11:00 AM CDT [facility] Acute Occupational Therapy Evaluation and discharge Assessment: 86 y.o. male presents with impaired balance, weakness, impaired ability to perform ADL's, impaired cognition, impaired vision and decreased activity tolerance secondary to diplolia w/resolved dizziness, history of vertebral basilar artery syndrome, glaucoma/macular degeneration, HTN. Skilled occupational therapy is not indicated as all goals are met. Plan: Based on this session, home with home OT is recommended at discharge and follow up w/semiconductor dies loader for visual therapy/neuroopthamologist for further diagnosis. Subjective: will assist upon d/c including driving/IADL's and setup for ADL's. Objective: patient functioning marginally at home prior level w/recent falls due to poor balance/impaired safety awareness/judgement. 4WW used for all functional mobility. Patient moving slow today with setup/SBA/verbal cues for safe performance of UE/LE dressing and self catheterization. diploplia present near/far in all quadrants. No diploplia with eye patch worn each eye. PT provided convergence exercise for patient. Patient to wear eye patch equal time both eyes until follow up w/semiconductor dies loader forfurther instruction. Discharge hospital OT. Continue with homecare OT to address safe ADL/IADL's with further visual/cognition testing. Orders and Chart reviewed Yes Associated attestation - Monica Kmi MBBS - 12/12/2021 1:44 PM CDT LAZAR[facility] Walters 12/12/2021, 1:44 PM Plan of Care - Yesenia Lange, PT - 12/12/2021 9:31 AM CDT [facility] Acute Physical Therapy Evaluation / Discharge Assessment: 86 y.o. 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 Skilled physical therapy is recommended to continue with home therapy, continue to address diploplia and balance especially. Plan: Based on this session, home with home PT is recommended at discharge. Subjective: Pt lives in home with supportive and no stairs. Ambulating with a cane at baseline d/t balance impairment. Uses 4WW for longer walks. Reports majority of falls have been stubbing his toes without shoes on. Reports no neuropathy or orthostasis. Does report had his neck twisted in an abnormal way during the dinner and speeches he attended when symptoms began. wants him home JORGE today. Pt does agree home care would be beneficial to assess safety and visual exercises. Objective: Evaluation completed. Pt's eyes wide in session. Pt reports his double vision is such that he is seeing objects stacked on top of each other, both in far and near vision. Pt does have an upward rotational component to bilateral eyes when testing in H pattern. No overshoot with saccades or ab normalities with VOR. Slow to converge/diverge. Did not test any positional vertigo d/t vertebrobasilar artery syndrome. Ambulates x120 feet with 4WW and CGA, flexed posture likely baseline, unchanged ambulation with both eyes open or one eyes closed. Not ataxia but wide SHAHID. Recommending increased help from at home with mobility. Balance assessed as high fall risk, only able to hold rhomberg. Orders and Chart reviewed Yes Associated attestation - Monica Kim MBBS - 12/12/2021 12:41 PM CDT LAZARO Walters 12/12/2021, 12:41 PM Plan of Care - Shari Abbott RN - 12/12/2021 6:49 AM CDT [facility] Plan of Care Note (Nursing) Assessment: Patient is oriented x4. Sleeping for much of shift. Denies pain besides dull headache. Patient states he is experiencing double vision. Patient's activity this shift up to bathroom SBA with walker. Unsteady at times. Heart rate is regular. Lungs are clear. Has active bowel sounds and is passing flatus. Is tolerating a regular diet. Patient self catheterizes at home Q4 hrs, straight cath output 525cc this shift- patient completed with assist of nurse. Skin tear noted on left knee, patient reports it is the cause of a fall at home 4 days ago. Assessments completed per orders. Vitals: BP (!) 150/91 (BP Cuff Size: Regular) Pulse 86 Temp 97.6 ??F (36.4 ??C) (Oral) Resp 18 Ht 5'9 (1.753 m) Wt 102.4 kg (225 lb 12.8 oz) SpO2 96% BMI 33.34 kg/m?? Plan: Continue to monitor and give medications as ordered. Anticipate discharge when able. Plan of Care - Shari Abbott RN - 12/12/2021 12:35 AM CDT [facility] Nursing Admit Note Admission Date/Time: 12/12/2021 at 12 am from ED into room 141. Transported by: Wheelchair Medical devices present: IV Home meds being used in hospital sent with patient?: No Valuables/Belongings with patient upon arrival on unit: Dentures: upper Glasses: No Hearing aid: Yes both CPAP: No Jewelry: Yes; ring General condition on arrival: Stable Triage Assessment Note - Diamond Terry RN - 12/11/2021 7:45 PM CDT [facility] STROKE CODE Chief Complaint:Double vision Arrival Time: 1935 Pt Arrives by: Arrival Choices: Triage Code CVA Called at: 1950 Last Known Well Time:1829 Symptom Onset Time: 1829 [place] Stroke Scale: Does the patient have a facial droop? no Does the patient have an arm drift? no Does the patient have slurred speech? no Did the symptoms start in the last 24 hours? yes BEFAST Scale additional items: Does the patient c/o acute balance issues/dizziness? yes Does the patient c/o acute change in eyesight? yes Nanda Coma: 4 - Opens eyes on own 6 - Follows simple motor commands 5 - Alert and oriented GSC Score: 15/15 Blood Glucose: 96 Weight: 230lb Patient to CT with RN 1:1 at: 2019 Narrative:Pt was at an event and began to develop double vision. Pt was unable to stand due to feeling like like he would fall over. Pt has no Hx of previous strokes, no cardiac Hx. with pt. Diamond Terry RN documented in this encounter Admitting Diagnoses Diagnosis Diplopia documented in this encounter Administered Medications Inactive Administered Medications - up to 3 most recent administrations Medication Order MAR Action Action Date Dose Rate Site acetaminophen (TYLENOL) tablet Given 12/12/2021 7:39 AM CDT 1,00 0 mg 1,000 mg 1,000 mg, Oral, DAILY, First dose on Ana 12/12/21 at 0800, Until Discontinued, Indications: Pain allopurinol (ZYLOPRIM) tablet 100 mg Given 12/12/2021 7:41 AM CDT 100 mg 100 mg, Oral, DAILY, First dose on Ana 12/12/21 at 0800, Until Discontinued, Should administer after meals with plenty of fluids. aspirin tablet 325 mg Given 12/12/2021 7:41 AM CDT 325 mg 325 mg, Oral, DAILY, First dose on Ana 12/12/21 at 0800, Until Discontinued bisacodyl (DULCOLAX) rectal suppository 10 mg 10 mg, Rectal, DAILY PRN, Constipation, No stool in the last 3 days, Starting on Thu12/12/21 at 0124, Until Thu12/12/21 a t 1414, Cumulative bowel medication orders. If no stool in last day start 1st line m edication MIRALAX Daily PRN, if no stool in last 2 days add Senna-S BID PRN no stool , if no stool in last 3 days add dulcolax suppository DAILY PRN until patient stools. When patie nt stools stop giving PRN meds and continue monitoring for bowel activity. When no stools x 1 day, begin regimen again until patient stools. budesonide-formoterol (SYMBICORT) 80-4.5 Given 12/12/2021 7:44 A M CDT 2 Puffs MCG/ACT inhaler 2 Puff 2 Puff, Inhalation, BID, First dose on Ana 12/12/21 at 0800, Until Discontinued dorzolamide (TRUSOPT) 2 % ophthalmic solution Given 7:44 AM CDT 1 Drop 1 Drop 1 Drop, Both Eyes, BID, First dose on Ana 12/12/21 at 0800, Until Discontinued, If patient uses multiple eye drops, allow approximately 5 minutes between instillation of each medication., Indications: Increased Intraocular Pressure fluticasone propionate (FLONASE) 50 MCG/ACT Given 11/15 7:44 AM CDT 1 Derwent nasal spray 1 Derwent 1 Derwent, Both Nostrils, BID, First dose on Thu12/12/21 at 0800, Until Discontinued, Shake bottle gently before using. Prime pump prior to first use (press six times until fine mist appears) Blow nose to clear nostrils. Insert applicator into nostril, keeping bottle upright, and close off other nostril. Breathe in through the nose. While inhaling press pump to release spray. Nasal applicator may be removed and rinsed with warm water to clean., Indications: Allergic Rhinitis LORazepam (ATIVAN) 2 MG/ML injection - A DS Override Pull Starting on Thu12/11/21 at 2136, Until Thu12/11/21 at 2139, For 1 dose, Gabbi Cancino: cabinet override LORazepam (ATIVAN) injection 0.5 mg Given 12/11/2021 9:39 PM CDT 0.5 mg 0.5 mg, Intravenous, ONCE, On Thu12/11/21 at 2200, For 1 dose montelukast (SINGULAIR) tablet 10 mg Given 12/12/2021 1:41 AM CDT 10 mg 10 mg, Oral, EVENING, First dose on Thu12/12/21 at 0145, Until Discontinued, Indications: Asthma pantoprazole DR (PROTONIX) tablet 40 mg Given 12/12/2021 5:29 AM CDT 40 mg 40 mg, Oral, BID AC, First dose on Thu12/12/21 at 0600, Until Discontinued polyethylene glycol (MIRALAX) oral powde r 17 g 17 g, Oral, BID PRN, Constipation, No st ool in the last one day, Starting on Thu12/12/21 at 0124, Until Thu12/12/21 at 14 14, Cumulative bowel medication orders. If no stool in last day start 1st line medi cation MIRALAX BID PRN, if no stool in last 2 days add Senna-S BID PRN no stool, if no stool in la st 3 days add dulcolax suppository DAILY PRN until patient stools. When patie nt stools stop giving PRN meds and continue monitoring for bowel activity. When no stools x 1 day, begin regimen again until patient stools. prochlorperazine (COMPAZINE) injection 1 0 mg Given 12/11/2021 11:39 PM CDT 10 mg 10 mg, Intravenous, ONCE, On Thu12/11/21 at 2230, For 1 dose sennosides-docusate sodium (SENOKOT S) 8 .6-50 MG per tablet 2 Tablet 2 Tablet, Oral, BID PRN, Constipation, N o stool in the last 2 days, Starting on Thu12/12/21 at 0124, Until Thu12/12/21 at 14 14, Cumulative bowel medication orders. If no stool in last day start 1st line medi cation MIRALAX Daily PRN, if no stool in last 2 days add Senna-S BID PRN no stool , if no stool in last 3 days add dulcolax suppository DAILY PRN until patient stools. When patie nt stools stop giving PRN meds and continue monitoring for bowel activity. When no stools x 1 day, begin regimen again until patient stools. sodium chloride 0.9% injection 3 mL Given 12/12/2021 8:11 AM CDT 3 mL 3 mL, Intravenous, Q12H, First dose on Thu12/12/21 at 0800, Until Discontinued documented in this encounter Active and Recently Administered Medications Times are shown in CDT. Scheduled Medication Order 12/10/2021 12/11/2021 12/12/2021 acetaminophen (TYLENOL) tablet 1,000 mg 0739 (Given - Provider: Lana Shin RN) 1,000 mg, Oral, DAILY, First dose on Thu12/12/21 at 0800, Until Discontinued, Indications: Pain allopurinol (ZYLOPRIM) tablet 100 mg 0741 (Given - Provider: Lana Shin, EULOGIO) 100 mg, Oral, DAILY, First dose on Thu at 0800, Until Discontinued, Should administer after meals with plenty of fluids. aspirin tablet 325 mg 0741 (Give n - Provider: Lana Shin, EULOGIO) 325 mg, Oral, DAILY, First dose on Thu12/12/21 at 0800, Until Di scontinued budesonide-formoterol (SYMBICORT) 80-4.5 MCG/ACT inhaler 2 Puff 0744 (Given - Provider: Lana Shin, EULOGIO) 2 Puff, Inhalation, BID, First dose on Thu12/12/21 at 0800, Until Discontinued dorzolamide (TRUSOPT) 2 % ophthalmic solution 1 Drop 743 (Given - Provider: Lana Shin, RN) 1 Drop, Both Eyes, BID, First dose on 12/12/21 at 0800, Until Discontinued, If patient uses multiple eye drops, allow approximately 5 minutes between instillation of each medication., Indications: Increased Intraocular Pressure fluticasone propionate (FLONASE) 50 MCG/ACT nasal spray 1 [place] 743 (Given - Provider: Lana Shin, EULOGIO) 1 [place], Both Nostrils, BID, First dose on Thu12/12/21 at 0800, Until Discontinued, Shake bottle gently before using. Prime pump prior to first use (press six times until fine mist appears) Blow nose to clear nostrils. Insert applicator into nostril, keeping bottle upright, and close off other nostril. Breathe in through the nose. While inhaling press pump to release spray. Nasal applicator may be rem chris and rinsed with warm water to clean., Indications: Allergic Rhinitis LORazepam (ATIVAN) injection 0.5 mg (COMPLETED) 2138 (Given - Provider: Gabbi Reyes RN) 0025 (Canceled Entry - Provider: Shari Abbott RN - Comment: given by ED. See previous admin) 0.5 mg, Intravenous, ONCE, On Thu12/11/21 at 2200, For 1 dose montelukast (SINGULAIR) tablet 10 mg 014 (Given - Provider: Shari Abbott RN) 10 mg, Oral, EVENING, First dose on Thu12/12/21 at 0145, Until Discontinued, Indications: Asthma pantoprazole DR (PROTONIX) tablet 40 mg 05 (Given - Provider: Shari Abbott RN) 40 mg, Oral, BID AC, First dose on Thu12/12/21 at 0600, Until Di scontinued pravastatin (PRAVACHOL) tablet 40 mg 40 mg, Oral, DAILY - 1999, First dose on Thu12/12/21 at 2000, Until Discontinued prochlorperazine (COMPAZINE) injection 10 mg (COMPLETED) 233 (Given - Provider: Gabbi Reyes, RN) 10 mg, Intravenous, ONCE, On Thu12/11/21 at 2230, For 1 dose sodium chloride 0.9% injection 3 mL 0811 (Given - Provider: Lana Shin, RN) 3 mL, Intravenous, Q12H, First dose on Ana 12/12/21 at 0800, Until Discontinued PRN Medication Order 12/10/2021 12/11/2021 12/12/2021 acetaminophen (TYLENOL) tablet 650 mg 650 mg, Oral, Q4H PRN, Pain/Fever, Start ing on Ana 12/12/21 at 0125, Until Thu12/12/21 at 1414 ALBUterol sulfate HFA inhaler 2 Puff 2 Puff, Inhalation, Q4H PRN, Cough/Wheez ing, Shortness of Breath, Starting on Thu12/12/21 at 0122, Until Ana 12/12/21 at 1414, Shake well bisacodyl (DULCOLAX) rectal suppository 10 mg(Linked Group 1) 10 mg, Rectal, DAILY PRN, Constipation, No stool in the last 3 days, Starting on Thu12/12/21 at 0124, Until Ana 12/12/21 at 1414, Cumulative bowel medication orders. If no stool in last day start 1st og e medication MIRALAX Daily PRN, if no st ool in last 2 days add Senna-S BID PRN no stool, if no stool in last 3 days add dulcolax suppository DAILY PRN until patient stools. When patient stools stop givi ng PRN meds and continue monitoring for bowel activity. When no stools x 1 day, begin regimen again until patient stools. melatonin tablet 6 mg 6 mg, Oral, HS PRN, Sedation, Sleep, Sta rting on Thu12/12/21 at 0124, Until Thu12/12/21 at 1414, As needed for sleep polyethylene glycol (MIRALAX) oral powder 17 g(Linked Group 1) 17 g, Oral, BID PRN, Constipation, No st ool in the last one day, Starting on Thu12/12/21 at 0124, Until Thu12/12/21 at 1414, Cumulative bowel medication orders. If no stool in last day start 1st line me dication MIRALAX BID PRN, if no stool in last 2 days add Senna-S BID PRN no stool, if no stool in last 3 days add dulcolax suppository DAILY PRN until patient stools. When patient stools stop giving PRN meds and continue monitoring for bowel activity. When no stools x 1 day, begin regimen again until patient stools. sennosides-docusate sodium (SENOKOT S) 8 .6-50 MG per tablet 2 Tablet(Linked Group 1) 2 Tablet, Oral, BID PRN, Constipation, N o stool in the last 2 days, Starting on Ana 12/12/21 at 0124, Until Ana 12/12/21 at 1414, Cumulative bowel medication orders. If no stool in last day start 1st line medication MIRALAX Daily PRN, if no sto ol in last 2 days add Senna-S BID PRN no stool, if no stool in last 3 days add dulcolax suppository DAILY PRN until patient stools. When patient stools stop givin g PRN meds and continue monitoring for b owel activity. When no stools x 1 day, begin regimen again until patient stools. sodium chloride 0.9% infusion 250 mL, Intravenous, at 25 mL/hr, PRN BE FORE&AFTER MEDICATIONS OR LAB DRAW, Other, PRN BEFORE&AFTER MEDICATIONS OR LAB DRAW, Starting on Ana 12/12/21 at 0125, PRN for medication or blood administration. sodium chloride 0.9% injection 3 mL 3 mL, Intravenous, PRN PER PARAMETERS, L ine Patency, Starting on Ana 12/12/21 at 0125, Until Ana 12/12/21 at 1414 Linked Groups Order Group 1: polyethylene glycol (MIRALAX) oral powder 17 gJump to med 17 g, Oral, BID PRN, Constipation, No st ool in the last one day, Starting on Ana 12/12/21 at 0124, Until Ana 12/12/21 at 1414
Cumulative bowel medication orders. If no stool in last day start 1st line medication JOSE LAX BID PRN, if no stool in last 2 days add Senna-S BID PRN no stool, if no stool in last 3 days add dulcolax suppository DAILY PRN until patient stools.&nbsp ; When patient stools stop giving P RN meds and continue monitoring for bowel activity. When no stools x 1 day, begin regimen again until patient stools.
Or sennosides-docusate sodium (SENOKOT S) 8.6-50 MG per tablet 2 TabletJump to med 2 Tablet, Oral, BID PRN, Constipation, N o stool in the last 2 days, Starting on Ana 12/12/21 at 0124, Until Ana 12/12/21 at 1414
Cumulative bowel medication orders. If no stool in last day start 1st line medication M IRALAX Daily PRN, if no stool in last 2 days add Senna-S BID PRN no stool, if no stool in last 3 days add dulcolax suppository DAILY PRN until patient stools.&amp ;nbsp; When patient stools stop giv ing PRN meds and continue monitoring for bowel activity. When no stools x 1 day, begin regimen again until patient stools.
Or bisacodyl (DULCOLAX) rectal suppository 10 mgJump to med 10 mg, Rectal, DAILY PRN, Constipation, No stool in the last 3 days, Starting on Ana 12/12/21 at 0124, Until Ana 12/12/21 at 1414
Cumulative bowel medication orders. If no stoo l in last day start 1st line medication MIRALAX Daily PRN, if no stool in last 2 days add Senna-S BID PRN no stool, if no stool in last 3 days add dulcolax suppository DAILY PRN until patient stools.&am p;nbsp; When patient stools stop gi ving PRN meds and continue monitoring for bowel activity. When no stools x 1 day, begin regimen again until patient stools.
documented in this encounter Care Teams Laboratory Manager Relationship Specialty Start Date End Date No Primary/Referring, Phy PCP - General 12/11/21 documented as of this encounter
--- OUTSIDE RECORDS SUMMARY | 2022-02-24 12:17 | XMS_ITS | Encounter Summary ---
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 Douglas Mae MD [address] [place] [id number] Referral ID Status Reason Start Date Expiration Date Visits V isits Requested Authorized [id number] New Request 01/01/2021 04/02/[phone] Encounter Details Date Type Department Care Team Description 01/03/2021 Home Care Visit [facility] Alejandra Smiley, OASIS [facility] [address] [facility] [address] [place] [id number] [phone] Social History Tobacco Use Types Packs/Day Years [...] Sign Reading Time Taken Comments Blood Pressure 150/84 01/03/2021 12:25 PM CDT Pulse 90 01/03/2021 12:25 PM CDT Temperature 37.2 ??C (98.9 ??F) 01/03/2021 12:25 PM CDT Respiratory Rate 20 01/03/2021 12:25 PM CDT Oxygen Saturation 97% 01/03/2021 12:25 PM CDT Inhaled Oxygen Concentration - - Weight - - Height - - Body Mass Index - - documented in this encounter Miscellaneous Notes Home Health - Alejandra Smiley RN - 01/03/2021 10:05 AM CDT ADMITTED TO [facility] ON: 01/03/21 HOMECARE FOCUS OF CARE/REASON FOR REFERRAL: observation and assessment for changes in condition, wound care, weakness, debilitation, falls risk, post op assessment L3-L4 lateral recess decompression via right sided approach DISCIPLINES INVOLVED: SN Bayron, PT Gael Jacob, EDVIN Rogel HOSPITALIZED AT:?[place]? DATES: 12/31-01/01 TCU AT: n/a? DESCRIPTION OF DISEASE COURSE LEADING TO THIS ADMISSION: From 12/31/[address] Mae: Mr. Rutledge is a pleasant 85 year old gentleman who presented to my office with a complaint of significant backand lower extremity symptoms consistent with neurogenic claudication and radiculopathy. MRI demonstrated evidence of profound spinal stenosis at L3-L4 adjacent to previous decompression. An exhaustive coruse of conservative care had been attempted but unsuccesful, and the patient opted for surgical intervention. Bilateral L3-L4 lateral recess decompression via right sided approach PMH: spinal stenosis, allergic rhinitis, bladder neck obstruction, urinary retention, osteoarthritis, IBS, mild persistent asthma, prostate cancer, gout, dysphagia, prostatitis, vit b12 deficiency REQUIRED COMMUNICATION TO PROVIDER REGARDING MEDICATIONS: SEVERE SIGNIFICANT MEDICATION INTERACTIONS: Dorzolamide-timolol and albuterol sulfate and Advair. Pharmacologic effects of albuterol, advair may be decreased by dorzolamide-timolol. Untoward physiologic effects, characterized by bronchospasm may occur DUPLICATIVE MEDS:??eye drops HIGH ALERT MEDS:??oxycontin MEDICATION RECONCILIATION/QUESTIONS: vistaril listed twice in epic, removed incorrect one. changed dosage on senna s per patient regimen VITAL SIGNS:??T 98.9 P 90 R 20 BP 150/84 O2 97% RA PAIN STATUS:??10/10 lower back constant although pain decreases to a 2/10 at times. MENTAL STATUS:??alert and oriented, anxious during visit SKIN/WOUND DESCRIPTION: incision to L3-L4 steri strips intact and covered with sterile gauze, no s/sx infection. Area surrounding incision is warm per usual, dried blood on steri strips noted. PPE worn per agency guidelines *Homebound due to recent L3-L4 surgery, requires use of a walker for ambulation and assistance from another person to safely leave home. At risk for falls, increased pain. PATIENT SCREENED NEGATIVE FOR COVID-19/CORONAVIRUS Yes NEGATIVE EBOLA SCREENING. PRIOR LEVEL OF FUNCTION:??independent CURRENT LEVEL OF FUNCTION: needs assistance with meals, meds, transportation, incisional care, ADL's/IADL's VULNERABLE ADULT PREVENTION PLAN:?? CLIENT WILL BE MONITORED FOR S/S OF ABUSE OR NEGLECT AND REPORTED APPROPRIATELY. ADVANCED DIRECTIVES:?? Advance Directive:??No? POLST completed:??No Code Status:??Full Code Flu vaccine: Yes; Date received: 2019 Pneumonia vaccine: Yes; Date received: 03/25/2016 ORDERS TO BE RECEIVABLE FROM GROUP PHYSICIANS/SPECIALISTS ASSOCIATED WITH ATTENDING MD. ADMISSION STATUS AND VERIFICATION OF POC COMMUNICATED TO: Dr. Ott () RECOMMENDATIONS:?? ADMIT TO HOMECARE, CLIENT/CAREGIVER PARTICIPATED IN DEVELOPMENT OF CARE PLAN. CLIENT/CAREGIVER VERBALIZED UNDERSTANDING OF THE FOLLOWING: EXPLAINED HOMECARE PROGRAM, EXPECTED LENGTH OF STAY AND ELIGIBLE SERVICES. INSTRUCTED IN USE OF 24HRON-CALL NUMBER AND REASONS TO CALL.?? DISCUSSED GOALS OF HOMECARE WITH CLIENT AND FAMILY INPUT. NUTRITION:?? INSTRUCTED IN THERAPEUTIC DIET TO ENHANCE HEALING, INCLUDING ADEQUATE FLUID INTAKE. PAIN:?? REVIEWED USE OF PAIN MEDS, PRECAUTIONS AND SIDE EFFECTS.?? INSTRUCTED TO CALL IF PAIN IS NOTCONTROLLED TO CLIENT SATISFACTION. MEDICATIONS:?? REVIEWED AND RECONCILED MED LIST.?? INSTRUCTED IN USE, STORAGE AND SIDE EFFECTS OF MEDS WITH CONCENTRATION ON NEW MEDICATIONS AND HIGH ALERT MEDS. INFECTION CONTROL:?? INSTRUCTED IN HAND-HYGIENE. SAFETY:?? GIVEN HOME SAFETY RECOMMENDATIONS.?? INSTRUCTED IN FALL PREVENTION STRATEGIES. TEACHING TO BE RE-ENFORCED AT SUBSEQUENT VISITS NEEDED. documented in this encounter Plan of Treatment Scheduled Referrals Name Type Priority Associated Diagnoses Order S [facility] Home Care Referral Routine Bilateral stenosis of latera l recess Ordered: 01/01/2021 of lumbar spine documented as of this encounter Visit Diagnoses Not on filedocumented in this encounter Home Health Visit - Care Plan Visit Details Visit Type - SN OASIS Start of Care Discipline - Alf Problems Problem Description Start Status Goals Interventions Date Integumentary - Integumentary - 01/03/2021 Active 1 goal linked t o 1 goal Surgical Surgical scheduled/docume interventio n Disciplines: nted scheduled/docum en Alf intervention kenyetta in this visit Coordination of Coordination of 01/03/2021 Active 1 goal linked t o 1 goal Care Following Care following scheduled/docume intervention Surgery surgery nted scheduled/docum en Disciplines: intervention kenyetta in this vis it Alf Teaching/Learning Verbalizes ability 01/03/2021 Active 1 goal og ked to 1 goal needs after to manage symptoms scheduled/docume intervention surgery following surgery nted scheduled/ documen Disciplines: intervention kenyetta in this vis it Alf Aftercare Assessment of 01/03/2021 Active 1 goal linked to 2 goa l assessment aftercare following scheduled/docume inte rventions Disciplines: general surgery nted scheduled/do cumen Alf intervention kenyetta in this visit Best Practice - 01/03/2021 Active 1 goal linked to 1 g oal Nutrition/Hydrati scheduled/docume i ntervention on nted scheduled/docum en Disciplines: intervention kenyetta in this vis it Alf, Physical Therapy, Occupational Therapy, Speech Language Pathology, Medical Social Work, Physical Therapy Wound Care Best Practice - 01/03/2021 Active 1 goal linked to 1 g oal Advance Care scheduled/docume interv ention Planning nted scheduled/docum en Disciplines: intervention kenyetta in this vis it Alf, Physical Therapy, Occupational Therapy, Speech Language Pathology, Medical Social Work, Physical Therapy Wound Care Best Practice - 01/03/2021 Active 1 goal linked to 1 g oal Risk for scheduled/docume interven tion infection nted scheduled/docum en Disciplines: intervention kenyetta in this vis it Alf, Physical Therapy, Occupational Therapy, Speech Language Pathology, Medical Social Work, Physical Therapy Wound Care Best Practice - Coordination of 01/03/2021 Active 1 goal linked t o 1 goal Coordination of Care scheduled/docume int ervention Care nted scheduled/docum en Disciplines: intervention kenyetta in this vis it Alf, Physical Therapy, Occupational Therapy, Speech Language Pathology, Medical Social Work, Physical Therapy Wound Care Best Practice - Medication 01/03/2021 Active 1 goal linked to 3 g oal Medication Management (Low scheduled/docume int erventions Management (Low risk) nted scheduled /documen Risk) intervention kenyetta in this vis it Disciplines: Alf, Physical Therapy, Occupational Therapy, Speech Language Pathology, Medical Social Work, Physical Therapy Wound Care Best Practice - Risk for 01/03/2021 Active 1 goal linked to 2 g oal Risk for Hospitalization scheduled/docume int erventions Hospitalization nted scheduled/docum en Disciplines: intervention kenyetta in this vis it Alf, Physical Therapy, Occupational Therapy, Speech Language Pathology, Medical Social Work, Physical Therapy Wound Care Best Practice - Vulnerable Adult or 01/03/2021 Active 1 goal link ed to 1 goal Vulnerable Adult Minor scheduled/docume in tervention or Minor nted scheduled/docum en Disciplines: intervention kenyetta in this vis it Alf, Physical Therapy, Occupational Therapy, Speech Language Pathology, Home Health Aide, Medical Social Work, Physical Therapy Wound Care Best Practice - Pain Assessment and 01/03/2021 Active 1 goal link ed to 3 goal Pain Assessment Management scheduled/docume int erventions and Management nted scheduled/docum en Disciplines: intervention kenyetta in this vis it Alf, Physical Therapy, Occupational Therapy, Speech Language Pathology, Medical Social Work, Physical Therapy Wound Care Best Practice - Fall Prevention 01/03/2021 Active 1 goal linked t o 1 goal Falls Prevention scheduled/docume interventio n Disciplines: nted scheduled/docum en Alf, intervention kenyetta in this visit Physical Therapy, Occupational Therapy, Speech Language Pathology, Medical Social Work, Physical Therapy Wound Care Best Practice - Vital Signs 01/03/2021 Active 1 goal linked to 1 goal Vital Signs - Parameters scheduled/docume inter vention Parameters nted scheduled/docum en Disciplines: intervention kenyetta in this vis it Alf, Physical Therapy, Occupational Therapy, Speech Language Pathology, Medical Social Work, Vat House Supervisor, Physical Therapy Wound Care Urinary - Patient to tolerate 01/03/2021 Active 1 goal linked to 1 goal Catheterization/L catheterization scheduled/doc ume intervention ab specimen nted scheduled/doc umen collection intervention kenyetta in this vis it Disciplines: Alf Urinary - Management of 01/03/2021 Active 1 goal linked to 1 goa l Teaching/Learning urologic disease scheduled/do cume intervention Needs nted scheduled/docum en Disciplines: intervention kenyetta in this vis it Alf Urinary - Patient is free of 01/03/2021 Active 1 goal linked to 2 goal Assessments urinary scheduled/docume interventio ns Disciplines: complications nted scheduled/docu men Alf intervention kenyetta in this visit Goals Goal [...] within agency parameters through the certification period. Catheterization/Lab Specimen Urinary - No Collection Catheterization/Lab Description: specimen collection Patient will tolerate catheterization without complications as evidenced by intact skin surrounding urinary appliance, no infection or fluid imbalance, and expected output. Verbalizes and demonstrates ability to manage all aspects of urinary appliance by 4 weeks. Urinary Teaching/Learning Urinary - Teaching/Learning No Needs Needs Description: Demonstrates adequate knowledge of urinary retention and enlarged prostate, able to describe signs/symptoms, progression/exacerbation and management of condition or disease, free from urinary infection. Able to state circumstances or symptoms warranting MD TRUNG or 911 notification by 4 weeks. Urinary Assessments Urinary - Assessments No Description: Patient will have adequate management of urinary retention and enlarged prostate as evidenced by improvement or stabilization of urinary symptoms and functional status per patient's baseline, and free from urinary infection by 6 weeks. Interventions Intervention Associated Status Variance Visit Notes Problem/Goal Incisional Care Problem: Integumentary - Surgical Completed EDUCATED ZAID TO Description: Goal: Integumentary - Surgical L EAVE THE STERI Perform incisional STRIPS ON UNLESS dressing change located THEY FALL OFF ON L3-L4 steri strips THEIR OWN , intact, if they start to DEA BALIZES fall off, may trim edges UND ERSTANDING. NO but do not remove. QUESTIONS OR Mepilex border 4x4 over CONC ERNS steri strips, may remove 01/07/21. Provider Problem: Coordination of Care Following Surgery Completed SURGEON Description: Goal: Coordination of Care Following Surgery Surgeon Dr. Mae Teach post-op cares Problem: Teaching/Learning needs after [...] process. Assess incisions Problem: Aftercare assessment Completed C/ D/I INTACT STERI Description: Goal: Aftercare Assessment STRIP S IN PLACE, Assess incision(s) to DRIED SMALL AMT OF lower spine (location) BLOOD ON STERI for healing or STRIPS. NO SI GNS OF deterioration, signs of INFE CTION. INCREASED infection WARMTH AROUND INCISIONAL SITE , ZAID STATES HE HAD FORGOTTEN TO IC E THE AREA. ENCOURAGE D TO DO THIS EVERY H OUR FOR 20 MINUTES WHILE AWAKE. HE AGREE D HE WOULD START DOI NG THIS, , JESSENIA Schafer WENT TO GET A C OLD PACK AND I DEMONSTRATED HO W TO PLACE ICE PACK SO HE IS STILL ABLE T O GET UP AND AMBULATE AND GET THISNGS DON E. EDUCATED S/SX INFECTION AND W HEN TO REPORT TO NU RSE. IF DRAINAGE INCREASES, ODOR STARTS, AREA BE COMES MORE WARM RO RE D, CALL HOMECARE R N. BOTH ZAID AND Fabian DANGELO REPORT UNDERSTN AING Aftercare Assessment Problem: Aftercare assessment Completed THOMAS NGS ARE CLEAR, Description: Goal: Aftercare Assessment MINIM AL BLE EDEMA. Assess lung sounds, RN PUT C OMPRESSION edema, nutritional and SOCKS ON FOR HIM hydration status, THIS MORNI NG. HAS symptoms of nausea or BEEN H AVING TROUBLE vomiting, bowel sounds, HAVI NG A BOWEL elimination status and MOVEM ENT. WENT OVER energy level/emotional BOWEL MEDS AND WHEN status TO TAKE WHAT. H E TOOK 3 SENNA S TODAY, IF NO BM BY TOMORROW, WILL BUS DRIVER A SALIN E ENEMA AND ZAID IS CERTAIN HE WILL BE ABLE TO DO THIS HIMSELF. BOWEL SOUNDS ARE POSI TIVE, ENERGY LEVEL IS NOT GOOD IT W PRIOR TO SURGER Y BUT IS IMPROVING. Teach importance of Problem: Best Practice - Nutrition/Hydration Co mpleted nutrition/hydration Goal: Nutritional Risk Score Description: Teach importance of nutrition and hydration to aid in the healing or management of disease or condition. Review code status and Problem: Best Practice - Advance Care Josefa nning Completed WENT OVER CODE goals of care with Goal: Patient/caregiver will verbalize understanding of advance care planning. STATUS WITH ZAID AND patient ZAID GATICA Description: UNDERSTANDS WHAT IT Code Status: Full Code MEANS TO BE FULL CODE VS DNR. IF HIS HEART WERE TO S TOP WHILE HOMECARE WAS AT A VISIT, HE WOULD LIKE HEART TO T RY TO RESTART. WISHES NOTED Teach risk of infection Problem: Best Practice - Risk for infection Completed Description: Goal: Risk for Infection Teach patient/caregiver the followin. risk for infection 2. measures for prevention and spreading of infection including social distancing, hand hygiene, and environmental cleaning 3. signs/symptoms warranting MD notification for COVID-19 and other potential infections Timely discharge Problem: Best Practice - Coordination of Care Completed PLAN TO D/C IN THE Description: Goal: Coordination of Care NEXT 6 WEEKS, WITH Facilitate timely GOAL COORD INATING discharge: plan for WITH AMAURY Chavez discharge in 6 weeks, coordinating with patient, patient's family, homecare and surgical team. Assess medications Problem: Best Practice - Medication Management (Low Risk) Comple kenyetta WENT OVER ALL MEDS Description: Goal: Medication Management (Low Risk) WITH ZAID RUSSELL AND Assess medications SPOUSE DORIAN FERRER including any high-risk MEDI CATIONS. MEDS meds for side-effects, APPEA R TO BE drug reactions, EFFECTIVE AT THIS interactions, duplicate TIME . therapy, omissions, dosage errors, effectiveness, new or [...] - Medication Management (Low Risk) Comple kenyetta WENT OVER ALL MEDS Description: Goal: Medication Management (Low Risk) WITH ZAID, HE WAS Currently medication ABLE TO TELL NURSE management: WHAT EACH MED W independently from FOR AND W HEN HE bottle. Communicate any TAKE S IT. HE DID NOT medication changes to HAVE A [place] QUESTIONS Zaid. OR CONCERNS High Risk vs Low Risk Problem: Best Practice - Risk for Hosp italization Completed for Readmission Goal: Risk for Hospitalization Description: Patient low risk (3 or less risk factors selected on M1033) for readmission to the hospital. Pertinent high risk diagnoses included in the care plan: COPD, Status-post surgical procedure. Assess/educate re: Problem: Best Practice - Risk for Hospitalizatio n Completed LOW RISK FOR rehospitalization risk Goal: Risk for Hospitalization R E-HOSPITALIZATION Description: Patient has been assessed and educated of risk for rehospitalization based on factors: decline in mental, emotional or behavioral status i the past 3 months, reported or observed history of difficulty complying with any medication instructions in the past 3 months, currently taking 5 or more medications and currently reports exhaustion. Instructed client and caregiver on when and how to call RN construction craft laborer 05/01, or 911 if needed. Assess for signs of Problem: Best Practice - Vulnerable Adul t or Minor Completed NONE NOTED abuse Goal: Vulnerable Adult or Minor Description: Assess for signs of verbal, mental, sexual, and physical abuse; including injuries of unknown source neglect and misappropriation of property. Complete pain Problem: Best Practice - Pain Assessment and Man agement Completed SEE PAIN SCALE assessment. Goal: Pain Assessment and Management Description: Complete verbal/nonverbal pain assessment using a standardized pain tool, including reassessment and the non-physical aspects (emotional, spiritual, cultural) affecting the patient's quality of life. Teach pharmacologic pain Problem: Best Practice - Lisa n Assessment and Management Completed HAS ONLY TAKEN THE management. Goal: Pain Assessment and Management OXYCODONE ONCE SINCE Description: BEING HOME FOR Teach safe use, safe SEVERE PAIN, storage, and safe OTHERWISE THE PAIN disposal of IS WELL MANAGED WITH opioid/non-opioid pain SHCEU DLED TYLENOL. medications. Develop EDUCATE D THE pain management plan OXYCODO NE REALLY with patient/caregiver INCRE ASES THE as follows: decrease LIKELIH OOD OF opioid use by 01/14/21 and CON STIPATION ALSO. use prescribed PRN pain ZAID DID NOT LIKE medications as follows: THAT . HE WANTS TO acetaminophen 1000mg TRY STA EZ AWAY three times daily, FROM THAT AND oxycodone IR 5mg every 8 INC REASE USE OF THE hours as needed. COLD PACKS TO EV LINDSAY HOUR TO SEE IF THAT HELPS THE PAIN Teach pain management Problem: Best Practice - Pain Assessment and Management Complete d PAIN IS WELL MANAGED Description: Goal: Pain Assessment and Management WITH CURRENT Teach/perform pain THERAPY, WILL management techniques CONTIN UE TO MONITOR of: Ice: Apply ice pack AND ASSESS PAIN to lower back for 20 LEVEL A ND UPDATE MD minutes every hour as NEE DED FOR needed for pain > . CHANGES. Place towel between ice pack and skin. [...] Practice - Vital Signs - Parameters Completed SEE VITAL SECTION Description: Goal: Vital Signs Parameters Assess vital signs and oxygen sats. Report to MD if outside agency parameters of: Systolic >160 or <100, Diastolic >90 or <50, Temp. >100.5, Resp. >30 or <12, Pulse >100 or <55, and Oxygen sats <89% at rest for more than 5 min. Teach straight Problem: Urinary - Catheterization/Lab s pecimen collection Completed I'VE BEEN DOING catheterization Goal: Catheterization/Lab Specimen Collection THIS FOR YEARS, i Description: KNOW HOW TO CATH Teach straight MYSELF. I DO IT catheterization: every 2 5-7 X/DAY TOLERATES hours and prn, catheter WELL AND DOES NOT type16 Fr silicone HAVE ANY CONCERNS. including infection prevention techniques. Teach UTI Problem: Urinary - Teaching/Learning Needs Completed IF SYMTPOMS OF UTI Description: Goal: Urinary Teaching/Learning Needs ARISE, CALL [facility] Teach of urinary tract 05/01 NURSE TO infections (UTIs), ADDRESS G FR[place] STATES including signs and UNDERSTA NDING symptoms, fluid management and actions to take. Assess urinary disease Problem: Urinary - Assessments Completed Description: Goal: Urinary Assessments Assess urinary retention and enlarged prostate symptom management including sign and symptoms of complications, exacerbation or progression, hydration status, emotional status and energy level. Assess urine Problem: Urinary - Assessments Completed U RINE IS YELLOW, Description: Goal: Urinary Assessments CLEAR, NO SEDIMENT, Assess urine for: color, NO ODOR. NO clarity, odor, ABNORMALITIES NOTED. hematuria, oliguria, anuria, dysuria and spasms documented in this encounter Care Teams Chemotherapist Relationship Specialty Start Date End Date Placido Ott MD PCP - General Internal Medicine 10/26/17 10/17/21 [address] [place] [address] documented as of this encounter
--- OUTSIDE RECORDS SUMMARY | 2022-02-24 12:17 | XMS_ITS | Encounter Summary ---
:1935 Author Organization [employer] Address [address], [place] [address] Care Team Providers Name Role Phone Placido Ott MD Primary Care Provider Encounter Details Date Type Department Care Team Description 01/18/2021 Home Care Visit [facility] Caryl Cummins, PT MISSED VISIT [address] [place], [place] [address] [facility] [address] [place] [address] [phone] Social History Tobacco Use Types Packs/Day Years [...] Plan Visit Details Visit Type - PT MISSED VISIT Discipline - Physical Therapy Problems Problem Description Start Date Status Goals Interventions Best Practice - Medication 01/03/2021 Active 1 goal linked to 1 g oal Medication Management (Low scheduled/documen in tervention Management (Low risk) kenyetta intervention sky eduled/document Risk) ed in this visi t Disciplines: Mcc, Physical Therapy, Occupational Therapy, Speech Language Pathology, Medical Social Work, Physical Therapy Wound Care Best Practice - Vulnerable Adult 01/03/2021 Active 1 goal linked to 1 goal Vulnerable Adult or Minor scheduled/documen i ntervention or Minor kenyetta intervention scheduled/d ocument Disciplines: ed in this visi t Mcc, Physical Therapy, Occupational Therapy, Speech Language Pathology, Home Health Aide, Medical Social Work, Physical Therapy Wound Care Best Practice - Pain Assessment 01/03/2021 Active 1 goal linked t o 1 goal Pain Assessment and Management scheduled/docume n intervention and Management kenyetta intervention scheduled/d ocument Disciplines: ed in this visi t Mcc, Physical Therapy, Occupational Therapy, Speech Language Pathology, Medical Social Work, Physical Therapy Wound Care Goals Goal Associated Problem Outcome [...] daily but not constantly within 4 weeks. Interventions Intervention Associated Problem/Goal Status Variance Visi t Notes Assess medications Problem: Best Practice - Medication [...] cultural) affecting the patient's quality of life. documented in this encounter Care Teams Automotive Parts Clerk Relationship Specialty Start Date End Date Placido Ott MD PCP - General Internal Medicine 10/26/17 10/17/21 [address] [place] [address] documented as of this encounter
--- OUTSIDE RECORDS SUMMARY | 2022-02-24 12:17 | XMS_ITS | Encounter Summary ---
:1935 Author Organization [employer] Address [address], [place] [address] Care Team Providers Name Role Phone Placido Ott MD Primary Care Provider Encounter Details Date Type Department Care Team Description 01/07/2021 Home Care Visit [facility] Pebbles Vann, OT INITIAL [place] OTR/L EVALUATION [facility] [address] [place] [id number] [phone] Social History Tobacco Use Types Packs/Day Years [...] on file documented as of this encounter Miscellaneous Notes Home Health - Pebbles Vann, OTR/[place] - 01/07/2021 2:01 PM CDT Pt seen today for OT eval after back surgery. post op assessment L3-L4 lateral recess decompression via right sided approach DISCIPLINES INVOLVED: SN Bayron, PT Gael hernandez then Cecil, OT Pebbles HOSPITALIZED AT: [facility] DATES: 12/31-01/01 TCU AT: n/a DESCRIPTION OF DISEASE COURSE LEADING TO THIS [...] cancer, gout, dysphagia, prostatitis, vit b12 deficiency Pt lives on one level with who assists with all needs. PLOF: indep ADL/IADL's Has walk in shower with bath bench, hand held shower, bar. High toilet. Pt has back precautions to limit bending, twisting and lifting. Currently pt is indep for UE and LE dressing with exception of socks and compression stockings. He does not have them on at this time. does not want to put on as they are difficult. Pt is indep for toileting and clothing management, He is indep for amb with walker /cane intermittently. Indep grooming and hygiene. Supervision/min assist bathing in shower. UE ROM/strength WFL's, coord WFL's Cognition WFL's. Pt will need skilled OT for LE dressing training, instruction in use of AE/DME with use of back precautions. Prognosis good for goals. If patient gets TEDS discontinued will probably not need further OT and will be eval only. Pebbles Vann, OT/L documented in this encounter Plan of Treatment Not on filedocumented as of this encounter Visit Diagnoses Not on filedocumented in this encounter Home Health Visit - Care Plan Visit Details Visit Type - OT Initial Evaluation Discipline - Occupational Therapy Problems Problem Description Start Date Status Goals Interventions Best Practice - Medication 01/03/2021 Active 1 goal linked to 1 g oal Medication Management (Low scheduled/documen in tervention Management (Low risk) amish intervention sky eduled/document Risk) ed in this visi t Disciplines: Jail, Physical Therapy, Occupational Therapy, Speech Language Pathology, Medical Social Work, Physical Therapy Wound Care Best Practice - Vulnerable Adult 01/03/2021 Active 1 goal linked to 1 goal Vulnerable Adult or Minor scheduled/documen i ntervention or Minor amish intervention scheduled/d ocument Disciplines: ed in this visi t Jail, Physical Therapy, Occupational Therapy, Speech Language Pathology, Home Health Aide, Medical Social Work, Physical Therapy Wound Care Best Practice - Pain Assessment 01/03/2021 Active 1 goal linked t o 1 goal Pain Assessment and Management scheduled/docume n intervention and Management amish intervention scheduled/d ocument Disciplines: ed in this visi t Jail, Physical Therapy, Occupational Therapy, Speech Language Pathology, Medical Social Work, Physical Therapy Wound Care Best Practice - Fall Prevention 01/03/2021 Active 1 goal linked t o 1 goal Falls Prevention scheduled/documen interventi on Disciplines: amish intervention scheduled/d ocument Jail, ed in th is visit Physical Therapy, Occupational Therapy, Speech Language Pathology, Medical Social Work, Physical Therapy Wound Care Best Practice - Vital Signs 01/03/2021 Active 1 goal linked to 1 goal Vital Signs - Parameters scheduled/documen inte rvention Parameters amish intervention scheduled/d ocument Disciplines: ed in this visi t Jail, Physical Therapy, Occupational Therapy, Speech Language Pathology, Medical Social Work, Hospital Medical Biller, Physical Therapy Wound Care OT ADL Deficits ADL Deficits 01/07/2021 Active 1 goal linked to 5 goal Disciplines: scheduled/documen interventi ons Occupational amish intervention schedu led/document Therapy ed in this vis it Goals Goal Associated Problem Outcome Goal Met? [...] within agency parameters through the certification period. ADL Deficits OT ADL Deficits No Description: Patient performs ADLs safely at maximum level of proficiency as demonstrated by: LE dressing and bathing with use of AE/DME independently within 2 weeks Interventions Intervention Associated Status Variance Visit Notes Problem/Goal Assess medications Problem: Best Practice - Medication Management (Low Risk) Comple amish Description: Goal: Medication Management (Low Risk) Assess [...] affecting the patient's quality of life. Teach fall prevention Problem: Best Practice - [...] at rest for more than 5 min. DME Problem: OT ADL Deficits Completed Description: Goal: ADL Deficits Assess/provide DME/Adaptive Equipment recommendations Dressing lower extremity Problem: OT ADL Deficits Completed Pt inst ructed in use Description: Goal: ADL Deficits of sock aid f or Assess/monitor/teach in carolyne mónica AMISH LE dressing stockings. SToc kings were wet in the wash so difficult to instruct. Instr ucted with use of reg socks and pt wa s able to don. Pt trialed TEDS on sock aid once more d ry and used powder however sock ai d is too narrow to g et over heel/inste p. Trial of gettin g sock on without aid however unable even crossing ankle up over opp knee. I will bring out wide sock aid next v isit. Instructed not to walk in bare so cks on hardwood anna or and to wear sergio es. Toilet/commode transfers Problem: OT ADL Deficits Completed Pt inst ructed in Description: Goal: ADL Deficits toilet transf er and Assess/monitor/teach recomme nded TSF toilet/commode transfers how ever pt is moving and does not wi sh to use and is safe without use. Tub/Shower transfers Problem: OT ADL Deficits Completed Pt inst ructed in Description: Goal: ADL Deficits shower transf er. Pt Assess/monitor/teach has wal k in shower tub/shower transfers without lip. AFter assessment/inst ructi on pt is safe a nd indep with use of cane and walker . instructed in placing suction bar on front wall o f shower vs side wall and pt was able to get sit to peyman d with light assi st of rail and raisin g of bench. Bathing Problem: OT ADL Deficits Completed instruc amish in how to Description: Goal: ADL Deficits set hand held shower Assess/monitor/teach in to o nly coming out bathing of the hand hel d part. Moved gra b bar from side wall to front wall for assist getting up off bench. Move d bench to front of shower for feet to be on mat and t o reach faucet be tter. documented in this encounter Care Teams Canary Raiser Relationship Specialty Start Date End Date Placido Ott MD PCP - General Internal Medicine 10/26/17 10/17/21 [address] [place] [address] documented as of this encounter
--- OUTSIDE RECORDS SUMMARY | 2022-02-24 12:17 | XMS_ITS | Encounter Summary ---
:1935 Author Organization [facility] [facility] Address [address], [place] [address] Care Team Providers Name Role Phone Placido Ott MD Primary Care Provider Encounter Details Date Type Department Care Team Description 01/22/2021 Home Care Visit [facility] Waqas Villalobos, PT PT OASIS DISCHARGE [address] [address] [phone] Social History Tobacco Use Types Packs/Day Years [...] Sign Reading Time Taken Comments Blood Pressure 120/70 01/22/2021 1:45 PM CDT Pulse - - Temperature - - Respiratory Rate - - Oxygen Saturation - - Inhaled Oxygen Concentration - - Weight - - Height - - Body Mass Index - - documented in this encounter Miscellaneous Notes Home Health - Waqas Villalobos, PT - 01/22/2021 1:20 PM CDT Homecare Visit Summary Focus of visit: floor transfer training and HEP progression New issues/concerns: none Assessment/progress toward goals: see DC Plan for next visit: see DC See Encounter for more details. If Telehealth Visit, did this visit meet the patient's needs per their individualized care plan? Yes/No NA Agency Discharge Summary Discharge date: 01-22-21 Discharged with goals: met Admission date to home health: 01-03-21 Reason for admission to home health: residual mobility issues after spinal surgery Services provided and frequency: PT for 5 visits, SN for 4 visits and OT for 1 visit. Discharged to: self-care/assist of family Formal Services in place at discharge: to start out patient PT care next week Discharge plan/instructions developed and discussed with: patient, family, caregiver, homecare team,doctor notified via order Summary of outcomes: initially needed FWW but progressed to SEC in the house , has and is indep c HEP for LE strengthening and is performing transfers indep c less pain. Updated, reviewed and current med list given to patient at discharge documented in this encounter Plan of Treatment Not on filedocumented as of this encounter Visit Diagnoses Not on filedocumented in this encounter Home Health Visit - Care Plan Visit Details Visit Type - PT OASIS Discharge Discipline - Physical Therapy Problems Problem Description Start Status Goals Interventions Date Best Practice - Resolved on 1 goal linked Nutrition/Hydrat 1 01/22/2021 to ion scheduled/docum Disciplines: ented Assisted, intervention Physical Therapy, Occupational Therapy, Speech Language Pathology, Medical Social Work, Physical Therapy Wound Care Best Practice - Resolved on 1 goal linked Advance Care 1 01/22/2021 to Planning scheduled/docum Disciplines: ented Assisted, intervention Physical Therapy, Occupational Therapy, Speech Language Pathology, Medical Social Work, Physical Therapy Wound Care Best Practice - Patient/Family/Care Resolved on 1 goal og ked Patient / Family cabin man Goals of Care 1 01/22/2021 to / caregiver scheduled/docum goals of care ented Disciplines: intervention Assisted, Physical Therapy, Occupational Therapy, Speech Language Pathology, Medical Social Work, Physical Therapy Wound Care Best Practice - Resolved on 1 goal linked Risk for 1 01/22/2021 to infection scheduled/docum Disciplines: ented Assisted, intervention Physical Therapy, Occupational Therapy, Speech Language Pathology, Medical Social Work, Physical Therapy Wound Care Best Practice - Coordination of Resolved on 1 goal linked Coordination of Care 1 01/22/2021 to Care scheduled/docum Disciplines: ented Assisted, intervention Physical Therapy, Occupational Therapy, Speech Language Pathology, Medical Social Work, Physical Therapy Wound Care Best Practice - Medication Resolved on 1 goal linked 1 goa l Medication Management (Low 1 01/22/2021 to intervent ion Management (Low risk) scheduled/docum sche duled/docume Risk) ented nted in this Disciplines: intervention visit Assisted, Physical Therapy, Occupational Therapy, Speech Language Pathology, Medical Social Work, Physical Therapy Wound Care Best Practice - Risk for Resolved on 1 goal linked Risk for Hospitalization 1 01/22/2021 to Hospitalization scheduled/docum Disciplines: ented Assisted, intervention Physical Therapy, Occupational Therapy, Speech Language Pathology, Medical Social Work, Physical Therapy Wound Care Best Practice - Vulnerable Adult or Resolved on 1 goal og ked 1 goal Vulnerable Adult Minor 1 01/22/2021 to interven tion or Minor scheduled/docum scheduled/do cume Disciplines: ented nted in this Assisted, intervention visit Physical Therapy, Occupational Therapy, Speech Language Pathology, Home Health Aide, Medical Social Work, Physical Therapy Wound Care Best Practice - Pain Assessment and Resolved on 1 goal og ked 1 goal Pain Assessment Management 1 01/22/2021 to intervent ion and Management scheduled/docum scheduled/do cume Disciplines: ented nted in this Assisted, intervention visit Physical Therapy, Occupational Therapy, Speech Language Pathology, Medical Social Work, Physical Therapy Wound Care Best Practice - Fall Prevention Resolved on 1 goal linked Falls Prevention 1 01/22/2021 to Disciplines: scheduled/docum Assisted, ented Physical intervention Therapy, Occupational Therapy, Speech Language Pathology, Medical Social Work, Physical Therapy Wound Care Best Practice - Vital Signs Resolved on 1 goal linked 1 go al Vital Signs - Parameters 1 01/22/2021 to interventio n Parameters scheduled/docum scheduled/do cume Disciplines: ented nted in this Assisted, intervention visit Physical Therapy, Occupational Therapy, Speech Language Pathology, Medical Social Work, Tourist Guide, Physical Therapy Wound Care PT Transfer Become more Resolved on 1 goal linked 1 goal Deficit independent to 1 01/22/2021 to intervention Disciplines: decrease caregiver scheduled/docum schedu led/docume Physical burden ented nted in this Therapy, intervention visit Physical Therapy Wound Care PT Gait Disorder Ambulate safely Resolved on 1 goal linked 1 goal Disciplines: 1 01/22/2021 to intervention Physical scheduled/docum scheduled /docume Therapy, ented nted in this Physical Therapy intervention visit Wound Care Goals Goal Associated Problem Outcome Goal Met? Visit Not es Nutritional Risk Score Best Practice - Adequate for Yes Description: Nutrition/Hydration Discharge Verbalizes and demonstrates understanding of proper nutrition and/or fluid intake, specialized diet within 4 weeks. Patient/caregiver will Best Practice - Advance Completed Yes verbalize understanding Care Planning of advance care planning. Patient/Family/Caregiver Best Practice - Patient Adequate for Yes Goals of Care / Family / caregiver Discharge Description: goals of care Patient is receiving the following services: SN, PT and OT. Patient/family/caregiver has identified SN, PT and OT goals of decrease constipation symptoms within the next week, decrease pain level from an 8-10 to a 2 within the next 10 days, increase strength and balance in LE within the next 6 weeks. Risk for Infection Best Practice - Risk Adequate for Yes Description: for infection Discharge Patient or caregiver will verbalize understanding of the following through the end of the certification period: 1. risk for infection 2. strategies for infection prevention and control 3. signs and symptoms warranting MD notification to reduce risk of COVID-19 infection Coordination of Care Best Practice - Completed Yes Description: Coordination of Care Client will receive education and training necessary to promote self-care skills to facilitate timely discharge from home care. Medication Management Best Practice - Adequate for Yes (Low Risk) Medication Management Discharge Description: (Low Risk) Verbalizes/demonstrates understanding of medications, including high risk meds, as evidenced by ability to state purpose, dose, effectiveness, potential side effects, special precautions, and storage of meds through the certification period. Risk for Hospitalization Best Practice - Risk Completed Yes Description: for Hospitalization Verbalizes understanding of risk factors and will participate in plan of care within the certification period. Vulnerable Adult or Best Practice - Completed Yes Minor Vulnerable Adult or Description: Minor Be free from verbal, mental, sexual, and physical abuse; including injuries of unknown source neglect and misappropriation of property through the certification period. Pain Assessment and Best Practice - Pain Adequate for Yes Management Assessment and Discharge Description: Management Demonstrate effective pain management techniques to reduce resting pain to desired goal of 2/10 and pain interfering with activity to daily but not constantly within 4 weeks. Fall Prevention Best Practice - Falls Completed Yes Description: Prevention Verbalizes understanding of fall prevention strategies and demonstrates behavioral/environmental changes as evidenced by the ability to move around safely without falls through the certification period. Vital Signs Parameters Best Practice - Vital Adequate for Yes Description: Signs - Parameters Discharge Vital signs within agency parameters through the certification period. Patient Transfer Deficit PT Transfer Deficit Completed Yes Description: Perform all transfers independently with min UE support and proper form avoiding bending, lifting, or twisting in order to decrease caregiver burden/increase independence within 2 weeks. Patient Gait Disorder PT Gait Disorder Completed Yes Description: Patient will be able to ambulate [...] at rest for more than 5 min. Home exercise Problem: PT Transfer Deficit Completed ins tructed and Description: Goal: Patient Transfer Deficit f acilitated bal EX Assess/monitor/teach home as follows :single exercise program leg standin g c 1 and 2 arm support o n counter 5 sec x 4 reps c CGA and sit to stand from a rm chair 3 reps c VC to try to reduce U E use c the patient stating he understood. We discussed progressing to a pool therapy pr ogram c the patient stating he woul d look into that idea. We discussed progressing to standing hip ab d and hip ext c reduc ing UE support on counter top c t he patient stating he understood. Balance exercises Problem: PT Gait Disorder Completed saravanan t was Description: Goal: Patient Gait Disorder inst ructed in Assess/monitor/teach picking up an item static/dynamic sitting, from the floor c the static/dynamic standing melba ent practicing balance exercises said product picker using 1 arm for support and we tried goldfe r's lift but Zaid castillo as unable to tiara ce on one leg. documented in this encounter Care Teams Oil Spreader Operator Relationship Specialty Start Date End Date Placido Ott MD PCP - General Internal Medicine 10/26/17 10/17/21 [address] [place] [address] documented as of this encounter
--- OUTSIDE RECORDS SUMMARY | 2022-02-24 12:17 | XMS_ITS | Encounter Summary ---
:1935 Author Organization [employer] Address [address] [address] Care Team Providers Name Role Phone Placido Ott MD Primary Care Provider Encounter Details Date Type Department Care Team Description 01/21/2021 Home Care Visit [facility] Waqas Villalobos, PT TELEPHONE ENCOUNTER [place] [id number] [place] [address] [phone] Social History Tobacco Use Types Packs/Day Years [...] Home Health - Waqas Villalobos, PT - 01/21/2021 6:45 PM CDT This typewriter repairer was awaiting a return call from Zaid regarding when he was going to start out patient P.T.care. SInce I had not heard from him yet, I called him today and he said he was not going to start out patient P.T. care next Wed so he wanted to have one additional home care P.T. session this week so it was scheduled for 01-22-21. documented in this encounter Plan of Treatment Not on filedocumented as of this encounter Visit Diagnoses Not on filedocumented in this encounter Care Teams Field Nurse Case Manager Relationship Specialty Start Date End Date Placido Ott MD PCP - General Internal Medicine 10/26/17 10/17/21 [address] [place] [address] documented as of this encounter
--- OUTSIDE RECORDS SUMMARY | 2022-02-24 12:17 | XMS_ITS | Encounter Summary ---
:1935 Author Organization [employer] Address [address], [place] [address] Care Team Providers Name Role Phone Placido Ott MD Primary Care Provider Encounter Details Date Type Department Care Team Description 01/09/2021 Home Care Visit [facility] Bayron Batista ROUTINE VISIT [address] [place], [place] [address] [address] [place], [place] [phone] (Wo rk) Social History Tobacco Use Types [...] Sign Reading Time Taken Comments Blood Pressure 111/66 01/09/2021 2:25 PM CDT Pulse 71 01/09/2021 2:25 PM CDT Temperature - - Respiratory Rate 18 01/09/2021 2:25 PM CDT Oxygen Saturation 97% 01/09/2021 2:25 PM CDT Inhaled Oxygen Concentration - - Weight - - Height - - Body Mass Index - - documented in this encounter Miscellaneous Notes Home Health - Bayron Quinn - 01/09/2021 2:50 PM CDT Homecare Visit Summary Focus of visit: GENERAL ASSESSMENT, DRESSING CHANGE TO LOWER BACK, PAIN CONTROL New issues/concerns: PT CONCERNED THAT HE MAY BECOME ADDICTED TO OXYCODONE AND WOULD LIKE TO WEAN OFF, SURGICAL TEAM UPDATE AND ASKED IF PT COULD START USING ADVIL, AWAITING RESPONSE Assessment/progress toward goals: INCISION IS CDI, NO NEW DRAINAGE OR SWELLING, NO S/S OF INFECTION NOTED. PAIN WELL TOLERATED WITH TYLENOL AND OXYCODONE FOR BREAK THROUGH PAIN. VSS. BS ACTIVE, LUNG SOUNDS CLEAR, APPETITE FAIR Plan for next visit: SAME ABOVE See Encounter for more details. If Telehealth Visit, did this visit meet the patient's needs per their individualized care plan? Yes/No documented in this encounter Plan of Treatment Not on filedocumented as of this encounter Visit Diagnoses Not on filedocumented in this encounter Home Health Visit - Care Plan Visit Details Visit Type - SN Routine Visit Discipline - Longterm Problems Problem Description Start Status Goals Interventions Date Aftercare Assessment of 01/03/2021 Active 1 goal linked to 2 goa l assessment aftercare following scheduled/docume inte rventions Disciplines: general surgery nted scheduled/do cumen Longterm intervention kenyetta in this visit Best Practice - Medication 01/03/2021 Active 1 goal linked to 1 g oal Medication Management (Low scheduled/docume int ervention Management (Low risk) nted scheduled /documen Risk) intervention kenyetta in this vis it Disciplines: Longterm, Physical Therapy, Occupational Therapy, Speech Language Pathology, Medical Social Work, Physical Therapy Wound Care Best Practice - Risk for 01/03/2021 Active 1 goal linked to 1 g oal Risk for Hospitalization scheduled/docume int ervention Hospitalization nted scheduled/docum en Disciplines: intervention kenyetta in this vis it Longterm, Physical Therapy, Occupational Therapy, Speech Language Pathology, Medical Social Work, Physical Therapy Wound Care Best Practice - Vulnerable Adult or 01/03/2021 Active 1 goal link ed to 1 goal Vulnerable Adult Minor scheduled/docume in tervention or Minor nted scheduled/docum en Disciplines: intervention kenyetta in this vis it Longterm, Physical Therapy, Occupational Therapy, Speech Language Pathology, Home Health Aide, Medical Social Work, Physical Therapy Wound Care Best Practice - Pain Assessment and 01/03/2021 Active 1 goal link ed to 1 goal Pain Assessment Management scheduled/docume int ervention and Management nted scheduled/docum en Disciplines: intervention kenyetta in this vis it Longterm, Physical Therapy, Occupational Therapy, Speech Language Pathology, Medical Social Work, Physical Therapy Wound Care Best Practice - Vital Signs 01/03/2021 Active 1 goal linked to 1 goal Vital Signs - Parameters scheduled/docume inter vention Parameters nted scheduled/docum en Disciplines: intervention kenyetta in this vis it Longterm, Physical Therapy, Occupational Therapy, Speech Language Pathology, Medical Social Work, Bench Scientist, Physical Therapy Wound Care Urinary - Patient is free of 01/03/2021 Active 1 goal linked to 2 goal Assessments urinary scheduled/docume interventio ns Disciplines: complications nted scheduled/docu men Longterm intervention kenyetta in this visit Goals Goal Associated Problem Outcome Goal Met? Visit Not es Aftercare Assessment Aftercare assessment No Description: Demonstrates healing following surgery to spine as evidenced by no signs/symptoms of infection, tolerating food and fluids, incisions/wounds/drain sites without redness or drainage and vital signs within agency baseline by 6 weeks. Medication Management (Low Best Practice - Medication [...] t Notes Assess incisions Problem: Aftercare assessment Completed CD I, STERI STRIPS Description: Goal: Aftercare Assessment INTAC T WITH OLD Assess incision(s) to BLOOD NOTED. CAITLYN. lower spine (location) for N O S/S OF healing or deterioration, IN FECTION signs of infection Aftercare Assessment Problem: Aftercare assessment Completed NO NEW CONCERNS Description: Goal: Aftercare Assessment NOTED Assess lung sounds, edema, nutritional and hydration status, symptoms of nausea or vomiting, bowel sounds, elimination status and energy level/emotional status Assess medications Problem: Best Practice - Medication Management (Low Risk) Comple kenyetta PT HAS STOPPED Description: Goal: Medication Management (Low Risk) TAKING OXYCODONE, Assess medications FOLLOWED UP WITH including any high-risk SURG ICAL CARETEAM meds for side-effects, TO OK AY PT TO drug reactions, RESUME IBUPR OFEN interactions, duplicate AND TYLENOL FOR therapy, omissions, dosage P AIN MANAGEMENT, errors, effectiveness, new P T UPDATED. or changed meds, current ability, knowledge and compliance, storage and disposal. Update medication list. Assess/educate re: Problem: Best Practice - Risk [...] on when and how to call RN supervisor front 05/01, MD or 911 if needed. Assess for signs of abuse Problem: Best Practice - Vulnerable Adult or Minor Completed NO CONCERNS NOTED Description: Goal: Vulnerable Adult or Minor Assess [...] spasms documented in this encounter Care Teams Historian Dramatic Arts Relationship Specialty Start Date End Date Placido Ott MD PCP - General Internal Medicine 10/26/17 10/17/21 [address] [place] [address] documented as of this encounter
--- OUTSIDE RECORDS SUMMARY | 2022-02-24 12:17 | XMS_ITS | Encounter Summary ---
:1935 Author Organization [employer] Address [address], [place] [address] Care Team Providers Name Role Phone Placido Ott MD Primary Care Provider Encounter Details Date Type Department Care Team Description 01/07/2021 Home Care Visit [facility] M N Waqas Villalobos, PT PT ROUTINE VISIT [id number] [place] [id number] [phone] Social History Tobacco Use Types Packs/Day Years [...] Sign Reading Time Taken Comments Blood Pressure 110/68 01/07/2021 12:45 PM CDT Pulse - - Temperature - - Respiratory Rate - - Oxygen Saturation - - Inhaled Oxygen Concentration - - Weight - - Height - - Body Mass Index - - documented in this encounter Miscellaneous Notes Home Health - Wqaas Villalobos, PT - 01/07/2021 12:30 PM CDT Homecare Visit Summary Focus of visit: HEP , auto body technician training and gait training New issues/concerns: he was used to using his SEC in his R UE so switching hands was difficult Assessment/progress toward goals: he is reluctant to alter his sit to stand technique due ot fear ofpain. Quad weakness present B functionally observerd as he tends to flop down to sit. Plan for next visit: further transfer qand gait training See Encounter for more details. If Telehealth [...] Risk) ed in this visi t Disciplines: Senior Living, Physical Therapy, Occupational Therapy, Speech Language Pathology, Medical Social Work, Physical Therapy Wound Care Best Practice - Vulnerable Adult 01/03/2021 Active 1 goal linked to 1 goal Vulnerable Adult or Minor scheduled/documen i ntervention or Minor kenyetta intervention scheduled/d ocument Disciplines: ed in this visi t Senior Living, Physical Therapy, Occupational Therapy, Speech Language Pathology, Home Health Aide, Medical Social Work, Physical Therapy Wound Care Best Practice - Pain Assessment 01/03/2021 Active 1 goal linked t o 1 goal Pain Assessment and Management scheduled/docume n intervention and Management kenyetta intervention scheduled/d ocument Disciplines: ed in this visi t Senior Living, Physical Therapy, Occupational Therapy, Speech Language Pathology, Medical Social Work, Physical Therapy Wound Care Best Practice - Vital Signs 01/03/2021 Active 1 goal linked to 1 goal Vital Signs - Parameters scheduled/documen inte rvention Parameters kenyetta intervention scheduled/d ocument Disciplines: ed in this visi t Senior Living, Physical Therapy, Occupational Therapy, Speech Language Pathology, Medical Social Work, Stage Producer, Physical Therapy Wound Care PT Transfer Become more 01/04/2021 Active 1 goal linked to 2 goal Deficit independent to scheduled/documen interven tions Disciplines: decrease kenyetta intervention scheduled/d ocument Physical [...] Description: Goal: Patient Transfer Deficit f acilitated sitting Assess/monitor/teach posture , moving from household transfers sit to s tand c VC to including bed, chair, sit hi nge at hips and to to stand and car lead c ches t not chin , staggeri ng feet and to aman k forward getting nose over toes and f or UE placement then rising c this practiced 6 kayode es from lounge mar ir outside , bed a nd dining room mar ir c SBA for bal. Instructed and practiced movin g from sit to charlie e lying to supine a then log collin g c VC and tactile cues for body alignm ent. Min assist need ed to complete log ro ll due to soft bed . Home exercise Problem: PT Transfer Deficit Completed ins tructed and Description: Goal: Patient Transfer Deficit p racticed glut and Assess/monitor/teach home ab d sets 3 sec hold exercise program each 5 reps each while in L side lying c VC to c ount out loud to lisa id increasing BP. Education for safe Problem: PT Gait Disorder Completed gait training c SEC ambulation Goal: Patient Gait Disorder c VC to use the cane Description: in his L UE 50 f t x Provide patient/caregiver 3 c VC for education for safe sequencin g c SBA for ambulation and bal. assess/monitor understanding documented in this encounter Care Teams Block Out Machine Operator Relationship Specialty Start Date End Date Placido Ott MD PCP - General Internal Medicine 10/26/17 10/17/21 [address] [place] [address] documented as of this encounter
--- OUTSIDE RECORDS SUMMARY | 2022-02-24 12:17 | XMS_ITS | Encounter Summary ---
:1935 Author Organization [employer] Address [address] [place] [address] Care Team Providers Name Role Phone Placido Ott MD Primary Care Provider Encounter Details Date Type Department Care Team Description 01/04/2021 Home Care Visit [facility] Gael John, PT INITIAL DE PT EVALUATION [address] [facility] [address] [place] [address] [phone] (Wo rk) Social History Tobacco Use Types [...] Sign Reading Time Taken Comments Blood Pressure 132/86 01/04/2021 11:02 AM CDT Pulse 81 01/04/2021 11:02 AM CDT Temperature 36.7 ??C (98.1 ??F) 01/04/2021 11:02 AM CDT Respiratory Rate - - Oxygen Saturation 97% 01/04/2021 11:02 AM CDT Inhaled Oxygen Concentration - - Weight - - Height - - Body Mass Index - - documented in this encounter Miscellaneous Notes Home Health - Gael John, PT - 01/04/2021 10:30 AM CDT PT Initial Evaluation Summary DATE: 01/04/21 NAME: Zaid Rutledge AGE: 85 DISCIPLINES INVOLVED: SN Verma, PT Gael hernandez then Cecil, EDVIN Rogel AUTOMATIC MAINTAINER: Bayron PRIMARY PHYSICIAN: Dr. Ott REASON FOR REFERRAL: observation and assessment for changes in condition, wound care, weakness, debilitation, falls risk, post op assessment L3-L4 lateral recess decompression via right sided approach DESCRIPTION OF DISEASE COURSE LEADING TO THIS ADMISSION: From 12/31/[address] Mae: Mr. Rutledge is a pleasant 85 year old gentleman who presented to my office with a complaint of significant backand lower extremity symptoms consistent with neurogenic claudication and radiculopathy. MRI demonstrated evidence of profound spinal stenosis at L3-L4 adjacent to previous decompression. An exhaustive course of conservative care had been attempted but unsuccessful, and the patient opted for surgical intervention. Bilateral L3-L4 lateral recess decompression via right sided approach PAST MEDICAL HISTORY: spinal stenosis, allergic rhinitis, bladder neck obstruction, urinary retention, osteoarthritis, IBS, mild persistent asthma, prostate cancer, gout, dysphagia, prostatitis, vit b12 deficiency LIVING SITUATION/CAREGIVERS: Lives with spouse. Daughter assists as needed PRIOR LEVEL OF FUNCTION: Able to ambulate in home and outside with use of SPC and ability to complete ADLs without assistance CURRENT LEVEL OF FUNCTION: increased dependence with ADLs with need for 4WW during ambulation FALL HISTORY: reports fall prior to recent surgery. No fall since homecare admission PAIN: Low back pain that is slowly improving. Still using tylenol and oxycodone for pain management SENSATION: WNL ROM: WNL STRENGTH: WNL TRANSFERS: CGA with transfer from toilet with recommendation to purchase toilet safety rails to improve independence with transfers. SBA with STS from chair and bed. Education provided on proper bed transfer. GAIT: 4WW needed with ambulation. Baler Operator recommended new walker as current R brake does not lock properly increasing risk for falls when performing STS from 4WW. VC given to stay close to walker with ambulation BALANCE: fair COGNITION: A&O EQUIPMENT: 4WW, SPC, grabber REHAB POTENTIAL: good. Patient plans to progress to outpatient PT following homecare. SAFETY CONCERNS/PRECAUTIONS: fall risk, recent surgery PATIENT GOAL: to be able to walk with SPC SKILLED NEED: Patient presents with decreased independence and safety with functional mobility and activity tolerance following Bilateral L3-L4 lateral recess decompression via right sided approach. Patient likely to benefit from skilled PT addressing decreased strength, abnormal gait, decreased independence with transfers, home safety, DME recommendations INTERVENTIONS: strength training, gait training, transfer training, home safety, HEP VISIT FREQUENCY: 2x/wk documented in this encounter Plan of Treatment Not on filedocumented as of this encounter Visit Diagnoses Not on filedocumented in this encounter Home Health Visit - Care Plan Visit Details Visit Type - PT Initial Evaluation Discipline - Physical Therapy Problems Problem Description Start Status Goals Interventions Date Best Practice - Medication 01/03/2021 Active 1 goal linked to 1 g oal Medication Management (Low scheduled/docume int ervention Management (Low risk) nted scheduled /documen Risk) intervention kenyetta in this vis it Disciplines: Senior Living, Physical Therapy, Occupational Therapy, Speech Language Pathology, Medical Social Work, Physical Therapy Wound Care Best Practice - Risk for 01/03/2021 Active 1 goal linked to 1 g oal Risk for Hospitalization scheduled/docume int ervention Hospitalization nted scheduled/docum en Disciplines: intervention kenyetta in this vis it Senior Living, Physical Therapy, Occupational Therapy, Speech Language Pathology, Medical Social Work, Physical Therapy Wound Care Best Practice - Vulnerable Adult or 01/03/2021 Active 1 goal link ed to 1 goal Vulnerable Adult Minor scheduled/docume in tervention or Minor nted scheduled/docum en Disciplines: intervention kenyetta in this vis it Senior Living, Physical Therapy, Occupational Therapy, Speech Language Pathology, Home Health Aide, Medical Social Work, Physical Therapy Wound Care Best Practice - Pain Assessment and 01/03/2021 Active 1 goal link ed to 2 goal Pain Assessment Management scheduled/docume int erventions and Management nted scheduled/docum en Disciplines: intervention kenyetta in this vis it Senior Living, Physical Therapy, Occupational Therapy, Speech Language Pathology, Medical Social Work, Physical Therapy Wound Care Best Practice - Vital Signs 01/03/2021 Active 1 goal linked to 1 goal Vital Signs - Parameters scheduled/docume inter vention Parameters nted scheduled/docum en Disciplines: intervention kenyetta in this vis it Senior Living, Physical Therapy, Occupational Therapy, Speech Language Pathology, Medical Social Work, Plastic Tool Maker, Physical Therapy Wound Care PT Transfer Become more 01/04/2021 Active 1 goal linked to 3 goal Deficit independent to scheduled/docume intervent ions Disciplines: decrease caregiver nted scheduled /documen Physical Therapy, burden intervention kenyetta i n this visit Physical Therapy Wound Care PT Gait Disorder Ambulate safely 01/04/2021 Active 1 goal linked to 1 goal Disciplines: scheduled/docume interventio n Physical Therapy, nted schedul ed/documen Physical Therapy intervention kenyetta in this visit Wound Care Goals Goal Associated Problem Outcome Goal Met? Visit Not es Medication Management (Low Best Practice - Medication [...] Practice - Risk for Hospitalizatio n Completed rehospitalization risk Goal: Risk for Hospitalization Description: Patient has been assessed and educated of risk for rehospitalization based on factors: decline in mental, emotional or behavioral status i the past 3 months, reported or observed history of difficulty complying with any medication instructions in the past 3 months, currently taking 5 or more medications and currently reports exhaustion. Instructed client and caregiver on when and how to call RN patient coordinator front desk 05/01, MD or 911 if needed. Assess for signs of Problem: Best Practice - Vulnerable Adul t or Minor Completed abuse Goal: Vulnerable Adult or Minor Description: Assess for signs of verbal, mental, sexual, and physical abuse; including injuries of unknown source neglect and misappropriation of property. Complete pain Problem: Best Practice - Pain Assessment and Man agement Completed assessment. Goal: Pain Assessment and Management Description: Complete verbal/nonverbal pain assessment using a standardized pain tool, including reassessment and the non-physical aspects (emotional, spiritual, cultural) affecting the patient's quality of life. Teach pain management Problem: Best Practice - Pain Assessment and Management Complete d EDUCATED PATIENT ON Description: Goal: Pain Assessment and Management CONTINUING TO USE Teach/perform pain ICE ON LO W BACK TO management techniques ASSIST WITH PAIN of: Ice: Apply ice pack WITH TOWEL BETWEEN to lower back for 20 ICE PAC K AND SKIN. minutes every hour as needed for pain > . Place towel between ice pack and skin. Remove if cold becomes uncomfortable and check skin for redness persisting longer than 10 minutes. Notify Home Care if redness/discomfort with treatment persists. Assess vitals Problem: Best Practice - Vital Signs - Parameters Completed Description: Goal: Vital Signs Parameters Assess vital signs and oxygen sats. Report to MD if outside agency parameters of: Systolic >160 or <100, Diastolic >90 or <50, Temp. >100.5, Resp. >30 or <12, Pulse >100 or <55, and Oxygen sats <89% at rest for more than 5 min. DME Problem: PT Transfer Deficit Completed EDU CATED PATIENT AND Description: Goal: Patient Transfer Deficit S POUSE ON PURCHASES Assess DME needs, TOILET SAF ETY RAILS facilitate acquisition TO SIST PATIENT if appropriate and WITH TOIL ET TRANSFER instruct in safe use HE S HOWED INCREASED DIFFI CULTY TODAY. PATIENT JUST SOLD HOME AND N OT WANTING TO INST ALL PERMANENT GRAB BARS. SPOUSE TO PURCH ASE TOILET SAFETY R AILS TODAY. Teach bed mobility Problem: PT Transfer Deficit Completed EDU CATED PATIENT ON Description: Goal: Patient Transfer Deficit L OG ROLLING Teach/perform bed TECHNIQUE FOR BED mobility TRANSFER. WILL NEED CONTINUED PRACT ICE TO PERFORM TECH NIQUE CORRECTLY, BUT DOES SHOW SLIGHT IMPROVEMENT FOLLOWING PRACT ICE TODAY. Home exercise Problem: PT Transfer Deficit Completed INI TIATED SEATED LE Description: Goal: Patient Transfer Deficit S TRENGTHENING HEP TO Assess/monitor/teach INCLUDE ANKLE PUMPS, home exercise program LAQ, G LUTE SETS, AND SEATED MARCHING . INSTRUCTED ARCHANA ENT TO KEEP BACK IN NEUTRAL POSITIO N DURING EACH EXERCISE. PATIE NT SHOWS ABILITY T O COMPLETE EACH EXERCISE CORREC TLY X15 FOLLOWING DEMONSTRATION W ITH WRITTEN HANDOUT PROVIDED. DME needs Problem: PT Gait Disorder Completed EDUCAT ED PATIENT AND Description: Goal: Patient Gait Disorder SPOU SE ON OLD 4WW Assess DME needs, BRAKES NOT facilitate acquisition FUNCT IONING PROPERLY if appropriate and WITH INAB ILITY FOR R instruct in safe use BRAKE T O LOCK. RECOMMENDED TO SPOUSE TO PURCH ASE NEW 4WW IN ORDE R TO INCREASE PATIEN T SAFETY WHEN PERFORMING STS TRANSFERS FROM 4WW. SPOUSE TO PURCH ASE NEW 4WW. documented in this encounter Care Teams Automotive Buyer Relationship Specialty Start Date End Date Placido Ott MD PCP - General Internal Medicine 10/26/17 10/17/21 [address] [place] [address] documented as of this encounter
--- OUTSIDE RECORDS SUMMARY | 2022-02-24 12:17 | XMS_ITS | Encounter Summary ---
:1935 Author Organization [employer] Address [address], [place] [address] Care Team Providers Name Role Phone Placido Ott MD Primary Care Provider Encounter Details Date Type Department Care Team Description 01/11/2021 Home Care Visit [facility] M N Waqas Villalobos, PT PT ROUTINE VISIT [address] [place] [address] [phone] Social History Tobacco Use Types Packs/Day Years [...] Sign Reading Time Taken Comments Blood Pressure 110/70 01/11/2021 2:45 PM CDT Pulse - - Temperature - - Respiratory Rate - - Oxygen Saturation - - Inhaled Oxygen Concentration - - Weight - - Height - - Body Mass Index - - documented in this encounter Miscellaneous Notes Home Health - Waqas Villalobos, PT - 01/11/2021 2:30 PM CDT Homecare Visit Summary Focus of visit: gait and transfer training New issues/concerns: none Assessment/progress toward goals: improved gait c the SEC and in transfer skills. Plan for next visit: further SEC gait training and bal training See Encounter for more details. If [...] Risk) ed in this visi t Disciplines: Long Term, Physical Therapy, Occupational Therapy, Speech Language Pathology, Medical Social Work, Physical Therapy Wound Care Best Practice - Vulnerable Adult 01/03/2021 Active 1 goal linked to 1 goal Vulnerable Adult or Minor scheduled/documen i ntervention or Minor kenyetta intervention scheduled/d ocument Disciplines: ed in this visi t Long Term, Physical Therapy, Occupational Therapy, Speech Language Pathology, Home Health Aide, Medical Social Work, Physical Therapy Wound Care Best Practice - Pain Assessment 01/03/2021 Active 1 goal linked t o 1 goal Pain Assessment and Management scheduled/docume n intervention and Management kenyetta intervention scheduled/d ocument Disciplines: ed in this visi t Long Term, Physical Therapy, Occupational Therapy, Speech Language Pathology, Medical Social Work, Physical Therapy Wound Care Best Practice - Vital Signs 01/03/2021 Active 1 goal linked to 1 goal Vital Signs - Parameters scheduled/documen inte rvention Parameters kenyetta intervention scheduled/d ocument Disciplines: ed in this visi t Long Term, Physical Therapy, Occupational Therapy, Speech Language Pathology, Medical Social Work, Surgical Aide, Physical Therapy Wound Care PT Transfer Become more 01/04/2021 Active 1 goal linked to 1 goal Deficit independent to scheduled/documen interven tion Disciplines: decrease kenyetta intervention scheduled/d ocument Physical Therapy, caregiver burden e d in this visit Physical Therapy Wound Care PT Gait Disorder Ambulate safely 01/04/2021 Active 1 goal linked to 2 goal Disciplines: scheduled/documen interventi ons Physical Therapy, kenyetta intervention s cheduled/document Physical [...] Description: Goal: Patient Transfer Deficit p racticed sit to Assess/monitor/teach stand f rom a variety household transfers surfaces 10 times c including bed, chair, sit VC to scoot forward, to stand and car stagger fee t, rocking to get nose over the toes a nd for UE placemen t all c SBA for bal. VC were given in handling the SE C with sit to and from standing. Balance exercises Problem: PT Gait Disorder Completed instru cted and Description: Goal: Patient Gait Disorder faci litated the Assess/monitor/teach followi ng EX : static/dynamic sitting, peyman de santiago eyes opened static/dynamic standing then closed 10 sec c balance exercises CGA , forw ards step then return fir st c the R then L LE 5 reps then back step in a similar ma nner 5 reps B c CGA Ambulation Problem: PT Gait Disorder Completed gait t raining c the Description: Goal: Patient Gait Disorder SEC ,held in the L Assess/monitor/teach UE , in the house 70 ambulation on stairs and ft x 6 c first hand on even/uneven surfaces held assist then c just SBA c cues for sequencing. Ano ther gait training e ffort c the 4WW out t he front door, c m od assist to handl e the door, then to t he mailbox at the end of the driveway about 200 ft c VC to stay close to t he walker and to s tand tall. Walker ht adjusted for ea sier use. documented in this encounter Care Teams Creative Writing Teacher Relationship Specialty Start Date End Date Placido Ott MD PCP - General Internal Medicine 10/26/17 10/17/21 [address] [place] [address] documented as of this encounter
--- OUTSIDE RECORDS SUMMARY | 2022-02-24 12:17 | XMS_ITS | Encounter Summary ---
:1935 Author Organization [employer] Address [address], [place] [address] Care Team Providers Name Role Phone Placido Ott MD Primary Care Provider Reason for Visit Reason Comments QUESTIONS, GENERAL Encounter Details Date Type Department Care Team Description 01/09/2021 Telephone [facility] Placido Ott, QUESTIONS, GENERAL [address] Tra[address] MD [place], [place] [address] [phone] [place], [place] [address] (Wo rk) Social History Tobacco Use Types [...] documented as of this encounter Nursing Notes Lyle MA - 01/10/2021 10:06 AM CDT Patient has been contacted and notified. Lyle MA 01/10/2021, 10:06 AM Gabbi Mendez MD - 01/09/2021 7:13 PM CDT OK to discontinue compression stockings. Needs to ask surgeon about taking ibuprofen/ advil. Gabbi Mendez MD Bayron Quinn - 01/09/2021 3:47 PM CDT Homecare nurse visit post opBilateral L3-4 Lateral Recess Decompression via Right sided approach. Pt reports he has stopped taking Oxycodone as of yesterday, and is wondering if he could alternate Advil and Tylenol? He states they did not want me taking Advil for a period of time after surgery, and was not sure when he could utilize it again. Also pt was sent home with compression stockings and started on Aspirin 325mg daily. Pt is working with homecare PT and OT. No edema in BLE or s/s of DVT. 1) Pt is wondering if it safe for him to incorporated Advil for pain management. 2) Pt is wondering if he could discontinue compression stockings. Please feel free to reach out with additional questions or recommendations. Thank you, Bayron Quinn RN [phone] documented in this encounter Plan of Treatment Not on filedocumented as of this encounter Visit Diagnoses Not on filedocumented in this encounter Care Teams Respiratory Care Program Director Relationship Specialty Start Date End Date Placido Ott MD PCP - General Internal Medicine 10/26/17 10/17/21 [address] [place] [address] documented as of this encounter
--- OUTSIDE RECORDS SUMMARY | 2022-02-24 12:17 | XMS_ITS | Encounter Summary ---
:1935 Author Organization [facility] Address [address], [place] [address] Care Team Providers Name Role Phone Placido Ott MD Primary Care Provider Reason for Visit Reason Comments Prostate Cancer Encounter Details Date Type Department Care Team Description 08/13/2021 Telemedicine [facility] Waqas Rodney (Primary Dx); Beatriz Griffith MD Prostate cancer ([facility]) [facility] [address] [place] [address] [place], [place] [phone] Social History Tobacco Use Types Packs/Day Years [...] documented as of this encounter Progress Notes Waqas Rodney MD - 08/13/2021 10:45 AM CST Total time spent on gathering information, documentation, history and physical findings 20 min VID visit patient at home doctor in office. Fabian Mar is living in [place], has not found another urologist. Has known hypotonic bladder. Now is being seen for possible UTI. Last 2 days some SP pain and urgency that is very bothersome. On SIC going well No hematuria, fevers or flank pain. O Patient alert and oriented. No obvious neurologic deficit. PSA down to 6.5 from 7.7 done at [facility]. A 1.no evid of ACTIVE prostate cancer. 2.symptoms consistent with UTI. 3. 4. P 1. Urine for UA and culture then antibiotics. 2.psa 6mos 3.empiric antibiotics You will see results in your HP online account as soon as they are available. Keep in mind you may see these results before your physician-we will contact you if we need to discuss the results or any next steps in your care. FINISHER documented in this encounter Plan of Treatment Not on filedocumented as of this encounter Visit Diagnoses Diagnosis Urinary retention - Primary Retention of urine, unspecified Prostate cancer ([facility]) Malignant neoplasm of prostate documented in this encounter Care Teams Damage Cutter Relationship Specialty Start Date End Date Placido Ott MD PCP - General Internal Medicine 10/26/17 10/17/21 [address] [place] [address] documented as of this encounter
--- OUTSIDE RECORDS SUMMARY | 2022-02-24 12:17 | XMS_ITS | Encounter Summary ---
:1935 Author Organization [employer] Address [address], [place] [address] Care Team Providers Name Role Phone Placido Ott MD Primary Care Provider Encounter Details Date Type Department Care Team Description 01/11/2021 Home Care Visit [facility] Bayron Batista ROUTINE VISIT [address] [place], [place] [address] [address] [place], [place] [phone] (Wo rk) Social History Tobacco Use Types [...] Sign Reading Time Taken Comments Blood Pressure 123/72 01/11/2021 11:39 AM CDT Pulse 73 01/11/2021 11:39 AM CDT Temperature 36.6 ??C (97.8 ??F) 01/11/2021 11:39 AM CDT Respiratory Rate 18 01/11/2021 11:39 AM CDT Oxygen Saturation 97% 01/11/2021 11:39 AM CDT Inhaled Oxygen Concentration - - Weight - - Height - - Body Mass Index - - documented in this encounter Miscellaneous Notes Home Health - Bayron Quinn - 01/11/2021 11:10 AM CDT Homecare Visit Summary Focus of visit: POST OP opBilateral L3-4 Lateral Recess Decompression via Right sided approach, PAIN, AND MED MANAGEMENT New issues/concerns: PT WOULD LIKE TO DISCONTINUE OXYCODONE, AND WOULD LIKE TO HAVE TYLENOL AND ADVIL FOR PAIN MANAGEMENT, OKAYED BY SURGICAL CARETEAM. PT UPDATED Assessment/progress toward goals: VSS, PAIN WELL CONTROLLED WITH TYLENOL and HYDROXZINE, BUT WOULD LIKE TO USE ADVIL NEEDED. INCISIONS IS CDI, DRESSING REMOVED DURING VISIT AND LEFT CAITLYN. BS ACTIVE AND PT REPORTS BMS REGULAR, APPETITE GOOD, VSS Plan for next visit: SAME ABOVE See [...] Type - SN Routine Visit Discipline - Mcfp Problems Problem Description Start Status Goals Interventions Date Aftercare Assessment of 01/03/2021 Active 1 goal linked to 2 goa l assessment aftercare following scheduled/docume inte rventions Disciplines: general surgery nted scheduled/do cumen Mcfp intervention kenyetta in this visit Best Practice - Medication 01/03/2021 Active 1 goal linked to 1 g oal Medication Management (Low scheduled/docume int ervention Management (Low risk) nted scheduled /documen Risk) intervention kenyetta in this vis it Disciplines: Mcfp, Physical Therapy, Occupational Therapy, Speech Language Pathology, Medical Social Work, Physical Therapy Wound Care Best Practice - Risk for 01/03/2021 Active 1 goal linked to 1 g oal Risk for Hospitalization scheduled/docume int ervention Hospitalization nted scheduled/docum en Disciplines: intervention kenyetta in this vis it Mcfp, Physical Therapy, Occupational Therapy, Speech Language Pathology, Medical Social Work, Physical Therapy Wound Care Best Practice - Vulnerable Adult or 01/03/2021 Active 1 goal link ed to 1 goal Vulnerable Adult Minor scheduled/docume in tervention or Minor nted scheduled/docum en Disciplines: intervention kenyetta in this vis it Mcfp, Physical Therapy, Occupational Therapy, Speech Language Pathology, Home Health Aide, Medical Social Work, Physical Therapy Wound Care Best Practice - Pain Assessment and 01/03/2021 Active 1 goal link ed to 1 goal Pain Assessment Management scheduled/docume int ervention and Management nted scheduled/docum en Disciplines: intervention kenyetta in this vis it Mcfp, Physical Therapy, Occupational Therapy, Speech Language Pathology, Medical Social Work, Physical Therapy Wound Care Best Practice - Fall Prevention 01/03/2021 Active 1 goal linked t o 1 goal Falls Prevention scheduled/docume interventio n Disciplines: nted scheduled/docum en Mcfp, intervention kenyetta in this visit Physical Therapy, Occupational Therapy, Speech Language Pathology, Medical Social Work, Physical Therapy Wound Care Best Practice - Vital Signs 01/03/2021 Active 1 goal linked to 1 goal Vital Signs - Parameters scheduled/docume inter vention Parameters nted scheduled/docum en Disciplines: intervention kenyetta in this vis it Mcfp, Physical Therapy, Occupational Therapy, Speech Language Pathology, Medical Social Work, Vehicle Sales Professional, Physical Therapy Wound Care Urinary - Patient is free of 01/03/2021 Active 1 goal linked to 2 goal Assessments urinary scheduled/docume interventio ns Disciplines: complications nted scheduled/docu men Mcfp intervention kenyetta in this visit Goals Goal [...] Notes Assess incisions Problem: Aftercare assessment Completed CAITLYN CERRATO Description: Goal: Aftercare Assessment Assess incision(s) to lower spine (location) for healing or deterioration, signs of infection Aftercare Assessment Problem: Aftercare assessment Completed NO CONCERNS NOTED Description: Goal: Aftercare Assessment Assess lung sounds, edema, nutritional and hydration status, symptoms of nausea or vomiting, bowel sounds, elimination status and energy level/emotional status Assess medications Problem: Best Practice - Medication Management (Low Risk) Joan kumari PT REPORTS HE IS Description: Goal: Medication Management (Low Risk) NO LONGER TAKING Assess medications OXYCODONE , TYLENOL including any high-risk AND HYDROXSINE meds for side-effects, EFFEC TIVE. WOULD drug reactions, LIKE TO ADD ADVIL, interactions, duplicate SURG ICAL CARETEAM therapy, omissions, OKAYED. PT UPDATED dosage errors, effectiveness, new or changed meds, current ability, knowledge and compliance, storage and disposal. Update medication list. Assess/educate re: Problem: Best Practice - Risk for Hospitalizatio n Completed NO IMMEDIATE rehospitalization risk Goal: Risk for Hospitalization C ONCERNS Description: Patient has been assessed and educated of risk for rehospitalization based on factors: decline in mental, emotional or behavioral status i the past 3 months, reported or observed history of difficulty complying with any medication instructions in the past 3 months, currently taking 5 or more medications and currently reports exhaustion. Instructed client and caregiver on when and how to call RN talent acquisition coordinator 05/01, MD or 911 if needed. Assess [...] urinary disease Problem: Urinary - Assessments Completed P T DENIES CONCERNS Description: Goal: Urinary Assessments Assess urinary retention and enlarged prostate symptom management including sign and symptoms of complications, exacerbation or progression, hydration status, emotional status and energy level. Assess urine Problem: Urinary - Assessments Completed Description: Goal: Urinary Assessments Assess urine for: color, clarity, odor, hematuria, oliguria, anuria, dysuria and spasms documented in this encounter Care Teams Spinner Open End Relationship Specialty Start Date End Date Placido Ott MD PCP - General Internal Medicine 10/26/17 10/17/21 [address] [facility] [place] [address] documented as of this encounter
--- OUTSIDE RECORDS SUMMARY | 2022-02-24 12:17 | XMS_ITS | Encounter Summary ---
:1935 Author Organization [facility] Address [address] [place] [address] Care Team Providers Name Role Phone Placido Ott MD Primary Care Provider Reason for Visit Reason Comments QUESTIONS, [facility] lab fax number Encounter Details Date Type Department Care Team Description [facility] Waqas Rodney, [place] Edson Griffith MD ([facility] [address] lab fax number) [address] [place] [address] [place], [place] [phone] Social History Tobacco Use Types Packs/Day Years [...] encounter Nursing Notes Deepika Arellano, RN - 08/13/2021 1:07 PM CST UA/UC orders have been faxed to [facility] as requested. Deepika Arellano RN 08/13/2021, 1:07 PM Placed call to patient and notified him that his lab orders have been faxed as requested. Patient verbalizes understanding. Deepika Arellano RN 08/13/2021, 1:14 PM [facility] Bayron Bolden - 08/13/2021 11:42 AM CST Reason for call? Patient was calling to give the [facility] lab fax number which is [phone] Best time to reach you? anytime Ok to leave a detailed message? yes Bayron Bolden ....................................08/13/2021 11:42 AM [facility] documented in this encounter Plan of Treatment Not on filedocumented as of this encounter Visit Diagnoses Diagnosis Urinary problem - Primary Other urinary problems documented in this encounter Care Teams Shearing Machine Tender Relationship Specialty Start Date End Date Placido Ott MD PCP - General Internal Medicine 10/26/17 10/17/21 [address] [place] [address] documented as of this encounter
--- OUTSIDE RECORDS SUMMARY | 2022-02-24 12:17 | XMS_ITS | Encounter Summary ---
:1935 Author Organization [employer] Address [address], [place] [address] Care Team Providers Name Role Phone Placido Ott MD Primary Care Provider Encounter Details Date Type Department Care Team Description 01/08/2021 Home Care Visit [facility] Alejandra Balderrama, CASE COMMUNICATION [address] RN [place], [place] [address] [facility] [address] [place], [place] [phone] Social History Tobacco Use Types Packs/Day Years [...] on filedocumented in this encounter Care Teams Irrigationist Designer Relationship Specialty Start Date End Date Placido Ott MD PCP - General Internal Medicine 10/26/17 10/17/21 [address] [place] [address] documented as of this encounter
--- OUTSIDE RECORDS SUMMARY | 2022-02-24 12:18 | XMS_ITS | Encounter Summary ---
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 If you have not been contacted, please call [phone] to s chedule your appointment. 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 Micaela Sanchez, RUSSIAN LANGUAGE INSTRUCTOR, CYTOLOGY MANAGER [address] [place] [id number] Referral ID Status Reason Start Date Expiration Date Visits V isits Requested Authorized [id number] Incomplete 01/01/2021 06/30/2021 1 1 (Routine) - Incomplete Specialty Diagnoses / Procedures Referred By Contact Refer red To Contact Procedures Lex Mae MD XR C-Arm 2-2.[address] [place] [address] XR C-Arm 1-1.5 Hours [place], [place] [address] Referral ID Status Reason Start Date Expiration Date Visits V isits Requested Authorized [id number] Incomplete 12/31/2020 04/01/2022 1 1 Consult/Transfer Care (Routine) - New Request Specialty Diagnoses / Procedures Referred By Contact Refer red To Contact Lex Mae MD [address] [place] [id number] Referral ID Status Reason Start Date Expiration Date Visits V isits Requested Authorized [id number] New Request 12/31/2020 04/01/2022 1 1 Scheduling Instructions Your provider has recommended an appoint ment with a [facility] Specialist. You may call [phone] to schedule your appointment. We suggest you call your health insurance company about your coverage and benefits for this appointment. Encounter Details Date Type Department Care Team Description 12/31/2020 - Hospital Encounter [facility] Med Surg Lex Mae Bilateral stenosis of latera l recess of lumbar spine (Primary Dx); 01/01/2021 [facility] Davon Lira MD Pain W. [address] [place] [address] [address] [address] [place], [place] [phone] Social History Tobacco Use Types Packs/Day Years [...] Sign Reading Time Taken Comments Blood Pressure 116/60 01/01/2021 11:19 AM CDT Pulse 70 01/01/2021 11:19 AM CDT Temperature 36.3 ??C (97.4 ??F) 01/01/2021 11:19 AM CDT Respiratory Rate 20 01/01/2021 11:19 AM CDT Oxygen Saturation 96% 01/01/2021 11:19 AM CDT Inhaled Oxygen Concentration - - Weight 104.8 kg (231 lb) 12/31/2020 2:00 PM CDT Height 175.3 cm (5' 9) 12/31/2020 2:00 PM CDT Body Mass Index 34.11 12/31/2020 2:00 PM CDT documented in this encounter Discharge Summaries Micaela Sanchez, RUSSIAN LANGUAGE INSTRUCTOR, CYTOLOGY MANAGER - 01/01/2021 9:10 AM CDT [facility] Discharge Summary: Spine Admit Date: 12/31/2020 6:31 AM Discharge Date: 01/01/2021 Post-Operative Day: 1 Day Post-Op Reason for admission: The patient was admitted for the following:Procedure(s): Bilateral L3-4 Lateral Recess Decompression via Right sided approach - Wound Class: 1 CLEAN Pre-Op Diagnosis Codes: * Back pain [M54.9] Following the procedure noted above the patient was transferred to the post-op floor and started on: Physical Therapy: Yes Pain Management: Oxycodone and Tylenol Complications: None Consultations: Hospitalist and PT/OT Comorbidities/Patient Active Hospital Problem List: Patient Active Problem List Diagnosis ??? Spinal stenosis of lumbar region with neurogenic claudication ??? Allergic rhinitis ??? Bladder neck obstruction ??? Primary localized osteoarthrosis, other specified sites ??? Irritable bowel syndrome ??? Mild persistent asthma without complication ??? Polyp of nasal cavity ??? Neural hearing loss, bilateral ??? Dysphagia ??? Gout ??? Glaucoma ??? Orchitis and epididymitis ??? Prostate cancer (HRC) ??? GERD (gastroesophageal reflux disease) ??? Dizziness ??? Dilated aortic root (HRC) ??? Macular degeneration ??? Stenosis of intracranial vessel ??? Vertebrobasilar artery syndrome ??? Acquired cerebral ventriculomegaly (HRC) ??? Prostatitis ??? Hematuria, unspecified ??? Postural kyphosis of lumbar region ??? Urinary retention ??? Actinic keratosis of multiple sites of head and neck ??? Neuralgia, neuritis, and radiculitis, unspecified ??? Lumbago (HRC) ??? Vitamin B12 deficiency Discharge Information: Condition at discharge: Nutritional intake adequate, No nausea or vomiting, Vital signs stable, voiding and Wound clean and Intact Discharge destination: Home Medications at discharge: Discharge medication list as of today: Medication List START taking these medications cephalexin 500 MG capsule Commonly known as: KEFLEX Take 2 Capsules by mouth three times a day for 3 doses. hydrOXYzine pamoate 25 MG capsule Commonly known as: Vistaril Take 1-2 Capsules by mouth every 4 hours as needed for Itching (for pain, itching or nausea). oxyCODONE 5 MG immediate release tablet Commonly known as: ROXICODONE Take 1 Tablet by mouth every 8 hours as needed for Pain. sennosides-docusate sodium 8.6-50 MG per tablet Commonly known as: SENOKOT S Take 1 Tablet by mouth two times a day. CHANGE how you take these medications acetaminophen 500 MG tablet Commonly known as: TYLENOL Take 2 Tablets by mouth three times a day. Maximum acetaminophen dose is 4000 mg in 24 hours What changed: Another medication with the same name was removed. Continue taking this medication, and follow the directions you see here. aspirin EC 325 MG enteric coated tablet Commonly known as: ECOTRIN Take 1 Tablet by mouth. Can resume 72 hours post drain removal. Start taking on: January 04, 2021 What changed: Another medication with the same name was removed. Continue taking this medication, and follow the directions you see here. CONTINUE taking these medications Advair HFA 45-21 mcg/actuation inhaler Generic drug: fluticasone-salmeterol INHALE 1 TO 2 PUFFS PO QAM. RINSE MOUTH/THROAT AFTER USE ALBUterol sulfate HFA 108 (90 Base) MCG/ACT inhaler Inhale 2 Puffs by mouth every 4 hours as needed for Wheezing. allopurinol 100 MG tablet Commonly known as: ZYLOPRIM Take 1 Tablet by mouth daily. amoxicillin 500 MG capsule Commonly known as: AMOXIL Prior to dental procedures dorzolamide 2 % eye drop solution Commonly known as: TRUSOPT Apply or instill 1 Drop into both eyes two times a day. dorzolamide-timolol 22.3-6.8 MG/ML eye drop solution Commonly known as: COSOPT INT 1 GTT IN OU TID fluticasone propionate 50 MCG/ACT nasal solution Commonly known as: FLONASE Apply or instill 2 Sprays into both nostrils two times a day. ICAPS AREDS FORMULA OR 1 Tab two times a day. montelukast 10 MG tablet Commonly known as: SINGULAIR Take 10 mg by mouth every evening. MUCINEX D OR Take 1 Tablet by mouth daily. omeprazole 20 MG capsule Commonly known as: PriLOSEC Take 1 Capsule by mouth two times a day. Take 1 hour before a meal. pravastatin 40 MG tablet Commonly known as: PRAVACHOL TAKE 1 TABLET BY MOUTH EVERY NIGHT AT BEDTIME vitamin B-12 1000 MCG tablet Commonly known as: aka: cyanocobalamin Take 1 Tablet by mouth daily. Follow-Up Care: The patient will be followed in the office in 3 weeks NAME: Micaela Sanchez CNP / Lex Mae MD PHONE NUMBER: [phone] For information about patient referrals and other discharge orders, please see Discharge Instructions or the Other Orders tab in Chart Review. --End of Report-- documented in this encounter Discharge Instructions Discharge InstructionsPat Saini RN - 01/01/2021 6:37 AM CDT Contact Information: [facility] [phone] [facility] [phone] or [phone] If you have had an orthopedic surgery please contact [facility] directly, both during and after clinic hours, at [phone]. Emergency & Urgently Needed Care: For emergencies call 911 and/or get medical help right away. If you are a [facility] member and have medical needs after clinic hours you may call the CareLineat [phone] or . Information given on: Treatment, diagnosis, surgery New Medications Discharge Instr - ActivityPat Saini RN - 01/01/2021 6:38 AM CDT Activities per MD instructions until next clinic appointment No driving for 24 hours after surgery or while taking narcotics Discharge Instr - DietPat Saini RN - 01/01/2021 6:38 AM CDT Resume pre-hospital diet, progress slowly Drink plenty of water Refer to Dietary Information in your post-op literature Discharge Instr - Other OrdersPat Saini RN - 01/01/2021 6:38 AM CDT It is recommended you wear your support stockings for a minimum of 12 hours a day until your next clinic visit. While your stockings are on, check your toes for temperature and/or color changes - remove stockingsif you notice any changes. Ensure that the stockings are smooth without wrinkles and in place (not rolled down) and monitor your skin for any rashes or damaged skin. Get new stockings if yours do not fit properly. Discharge Instr - Non RX Pat Mcconnell RN - 01/01/2021 6:38 AM CDT Some of the new medications you have been prescribed include: Oxycodone: for moderate to severe pain. May Cause: Sleepiness, nausea, constipation. Tylenol: for pain, fever. May Cause: upset stomach, nausea. Senokot S: for hard stools (Constipation). May Cause: Stomach cramps, belly pain. Cephalexin: Antibiotic for treating or preventing bacterial infections. May Cause: Upset stomach, diarrhea Vistaril (hydroxyzine): for itching, pain, or nausea. May Cause: dry mouth, dizziness, drowsiness, blurred vision Detailed medication information will be given to you with your prescription from pharmacy or on cjol-dqe-goewmsc medication packaging. Keep a journal/record of when you take your pain medications Do not take on an empty stomach; take with a meal or a small snack Take an yoia-fyu-ntszsmn stool softener while taking narcotics (ex: Senna, Miralax, Colace) as narcotics cause constipation Take pain pill(s) before pain has become uncomfortable - it takes 30-45 minutes for analgesic effect If you are prescribed narcotic pain medications (Oxycodone, [place], Percocet, etc) then you should try to wean off of them as tolerated. These are an NEEDED medication, so if you are not having significant pain you should try to take fewer pills at a time or spread them out over a longer period of time than is prescribed. How to Taper Off Your Pain Medications- After surgery, you may be prescribed one of the following medications for pain management: Oxycodone (Roxicodone) Oxycodone-Acetaminophen (Percocet) Hydromorphone (Dilaudid) Hydrocodone-Acetaminophen ([place], Vicodin) These medications are opioids. Prescription opioids carry serious risks of addiction and overdose, especially with prolonged use. In order to minimize these risks, it is important to begin to taper offthe medication after 2-3 days. Begin tapering by: Decreasing the number of tablets you take each dose. For example, if you normally take 2 tablets at a time, decrease to 1 tablet. If you normally take 1 tablet at a time, cut the table in half and takeone-half tablet. Lengthening the time between each dose you take. For example, if you normally take 1 tablet every 4 hours, try taking 1 tablet every 6 hours instead. Slowly increase the amount of time between doses until you do not need the opioid pain medication anymore. [place] the opioid pain medication for severepain only. ++ If you had a fusion surgery you should avoid taking any non-steroidal anti- inflammatory or NSAID medications (Advil, Aleve, ibuprofen, Motrin, diclofenac, etc) until you are instructed that this is okay by your surgeon. Usually you should be off of these medications for the first 3 months after fusion ++ If you take blood thinner medications such as Aspirin, Plavix, Coumadin/Warfarin, Lovenox, Xarelto, or other similar medications please discuss with your surgeon when these can be restarted. IF YOU NEED TO REQUEST A NARCOTIC MEDICATION REFILL BEFORE YOUR FOLLOW UP VISIT WITH MD OR PHYSICIANASSISTANT, CALL YOUR SURGEON AT Discharge Instr - Pat Tinoco RN - 01/01/2021 6:38 AM CDT Call your doctor for: Temperature above 101 degrees and/or chills Increased redness, drainage, or swelling Persistent nausea Increased warmth, redness, swelling, or pain in either leg Increased pain in surgical site or affected area Bleeding: Increased swelling around the incision. Bruises on other parts of your body than surgical site. Nose bleeds that won't stop. Abdominal pain. Bright red or black stools. Blood in your urine. Call 911 if you are experiencing shortness of breath or chest pain documented in this encounter Medications at Time of Discharge Medication Sig Dispensed Refills Start Date End Date acetaminophen Take 2 Tablets by 100 Tablet 1 01/01/2021 (TYLENOL) 500 MG mouth daily. Maximum tabletIndications: acetaminophen dose is Pain 4000 mg in 24 hours Indications: Pain ADVAIR HFA 45-21 Inhale 1 Puff every 11 09/16/2016 MCG/ACT inhaler morning. ALBUterol sulfate hfa Inhale 2 Puffs by 8.5 g 014 108 (90 BASE) MCG/ACT mouth every 4 hours inhaler as needed for Wheezing. aspirin EC (ECOTRIN) [The details of the 3 2020 325 MG enteric coated medication are not tabletIndications: available because Arthritis there are pending changes by a home health clinician.] dorzolamide (AKA [The details of the 0 TRUSOPT) 2 % eye drop medication are not solutionIndications: available because Increased Intraocular there are pending Pressure changes by a home health clinician.] fluticasone (AKA Place 1 [place] into 0 08/03/2013 FLONASE) 50 MCG/ACT both nostrils two nasal times a day. solutionIndications: Indications: Allergic Allergic Rhinitis Rhinitis montelukast [The details of the 0 (SINGULAIR) 10 MG medication are not tabletIndications: available because Asthma there are pending changes by a home health clinician.] Multiple [The details of the 0 Vitamins-Minerals medication are not (ICAPS AREDS FORMULA available because OR)Indications: there are pending supplement changes by a home health clinician.] Pseudoephedrine-guaiFE [The details of the 0 Nesin (MUCINEX D medication are not OR)Indications: available because ALLERGIES there are pending changes by a home health clinician.] vitamin B-12 (AKA: Take 1 Tablet by 100 Tablet 3 04/21/2019 CYANOCOBALAMIN) 1000 mouth daily. MCG tablet cephalexin (KEFLEX) Take 2 Capsules by 6 Capsule 0 01/02/20 21 01/02/2021 500 MG mouth three times a capsuleIndications: day for 3 doses. Infection Prevention Indications: Infection Prevention allopurinol (ZYLOPRIM) [The details of the 90 Tablet 3 05/1706/13/2021 100 MG tablet medication are not available because there are pending changes by a home health clinician.] amoxicillin (AMOXIL) [The details of the 0 201812/11/2021 500 MG medication are not capsuleIndications: available because Infection Prophylaxis there are pending in Prosthetic changes by a home Arthroplasty health clinician.] dorzolamide-timolol [The details of the 8 018 12/11/2021 (COSOPT) 22.3-6.8 medication are not MG/ML eye drop available because solution there are pending changes by a home health clinician.] hydrOXYzine pamoate Take 1 Capsule by 30 Capsule 0 1 12/11/2021 (VISTARIL) 25 MG mouth every 4 hours capsule as needed for Itching (for itching, pain, or nausea). hydrOXYzine pamoate Take 1 Capsule by 30 Capsule 0 1 12/11/2021 (VISTARIL) 25 MG mouth every 4 hours capsule as needed for Itching (for pain, itching or nausea). omeprazole (PRILOSEC) [The details of the 180 Capsule 3 05/1706/13/2021 20 MG capsule medication are not available because there are pending changes by a home health clinician.] oxyCODONE (ROXICODONE) Take 1 Tablet by 15 Tablet 0 021 12/11/2021 5 MG immediate release mouth every 8 hours tablet as needed for Pain. pravastatin [The details of the 90 Tablet 3 07/09/202005/17 (PRAVACHOL) 40 MG medication are not tabletIndications: available because Hyperlipidemia, there are pending unspecified changes by a home hyperlipidemia type health clinician.] ([facility]) sennosides-docusate [The details of the 20 Tablet 0 021 12/11/2021 sodium (SENOKOT S) medication are not 8.6-50 MG per available because tabletIndications: there are pending Constipation changes by a home health clinician.] documented as of this encounter Progress Notes Micaela Sanchez, RUSSIAN LANGUAGE INSTRUCTOR, CYTOLOGY MANAGER - 01/01/2021 9:10 AM CDT Orthopaedics Progress Note Post-operative Day: 1 Day Post-Op Surgical Procedures: Procedure(s) (LRB): Bilateral L3-4 Lateral Recess Decompression via Right sided approach (N/A) Diagnosis: Back pain [M54.9] Spinal stenosis of lumbar region [M48.061] Subjective: Pain: mild Chest pain, SOB: No Zaid is doing very well since surgery. His pain has greatly improved compared to preop state and is being controlled with Oxycodone. Denies SOB, chest pain, N/V, or bilateral calf pain. Has been working well with therapies. Denies n/t. Feels good to DC this AM with son and . Objective: Vital signs in last 24 hours His height is 5' 9 (1.753 m) and weight is 104.8 kg (231 lb). His oral temperature is 97.4 ??F (36.3 ??C). His blood pressure is 116/60 and his pulse is 70. His respiration is 20 and oxygen saturationis 96%. His body mass index is 34.11 kg/m??. Motor function, sensation, and circulation intact: Yes Wound status: dressing dry and intact Calf tenderness: Bilateral None Zaid is A/O, sitting in bed, in NAD when I arrived. Dressing CDI. Bilateral TEDs in place. Sensationintact. Bilateral lower extremity strength 5/5. Bilateral pedal pulses WNL. Recent Labs Recent Labs 12/31/20 0810 12/31/20 1228 WBC 6.7 -- HGB 14.5 14.7 HCT 44.8 45.2 PLTS 180 -- Plan: Continue cares and rehabilitation Anticoagulation protocol: ASA 325 mg daily [place] [facility] starting 72 hrs post drain removal Pain medications: Oxycodone and Tylenol--pt confirms he takes Tylenol daily and is not allergic. Weight bearing status: WBAT, no lifting greater than 10 lbs Disposition: Home today Report completed by: Micaela Sanchez APRN, CNP Date: 01/01/2021 Time: 6:12 PM documented in this encounter H&P Notes Oskar Cuadra MD - 12/31/2020 8:15 AM CDT [facility] Interval History and Physical Note The attached H&P has been reviewed. The patient was examined. No change observed. Source Note - Andry Mukherjee MD - 12/19/2020 2:30 PM CDT Pre-operative History and Physical Assessment Name: Zaid Rutledge : 1935 Primary physician: Placido Ott MD. Historical: Zaid Rutledge is a 85 y.o. old male is here for preoperative cardiac and risk evaluation. Patient is scheduled for Bilateral L3-4 Lateral Recess Decompression via Right sided approach on 12/31/[address] Mae at [place]. Pertinent history: Chronic hx of low back pain. Prior spine surgery in distant past. Gradually worsening over several months and bilateral leg weakness. Additional concerns: None Preoperative Screening Questions: Any problems with / history of... Tightening or pressure in chest with activity? no Waking at night with shortness of breath? no Swelling of feet or ankles recently? no Difficulty sleeping flat at night because of shortness of breath? no Troubled by shortness of breath when Walking on the level? Climbing a flight of stairs? no YES Getting pains in the calf muscles when walking? no Chest sounds like wheezy or whistling? YES Cough, runny nose, or cold symptoms currently? no A chronic cough? no Bleeding or clotting problems for you or close relatives? no Herbal supplements or medications not on the med list being taken? no Taking steroids or immunosuppressive medications. no Aspirin or NSAIDS taken in the last two weeks? YES Anemia or taking iron pills? no Anesthesia complications for you or close relatives? no History of sleep apnea, loud snoring, daytime drowsiness or CPAP at home? no Heart attack in the last 30 days? no Recent memory problems (dementia)? no Is there a history of COPD(emphysema) or asthma? Yes. Is your breathing capacity with activity worsethan usual over the last month? no Estimated Functional Capacity: Can you climb one flight of stairs, or walk up a gradual uphill without stopping? yes, functional capacity is more than or equal to 4 METS Medications: Current Outpatient Medications Medication Sig Note Dispense Refill ??? acetaminophen (TYLENOL) 500 MG tablet Take 500-1,000 mg by mouth two times a day. ??? ADVAIR HFA 45-21 MCG/ACT inhaler INHALE 1 TO 2 PUFFS PO QAM. RINSE MOUTH/THROAT AFTER USE 11/07/2016: Received from: External Pharmacy 11 ??? ALBUterol sulfate hfa 108 (90 BASE) MCG/ACT inhaler Inhale 2 Puffs by mouth every 4 hours as needed for Wheezing. 8.5 g 11 ??? allopurinol (ZYLOPRIM) 100 MG tablet Take 1 Tablet by mouth daily. 90 Tablet 3 ??? amoxicillin (AMOXIL) 500 MG capsule Prior to dental procedures ??? aspirin 325 MG tablet Take 325 mg by mouth daily. ??? dorzolamide (AKA TRUSOPT) 2 % eye drop solution Apply or instill 1 Drop into both eyes two timesa day. ??? dorzolamide-timolol (COSOPT) 22.3-6.8 MG/ML eye drop solution INT 1 GTT IN OU TID (Patient not taking: Reported on 10/10/2020) 11/13/2017: Received from: External Pharmacy 8 ??? fluticasone (AKA FLONASE) 50 MCG/ACT nasal solution Apply or instill 2 Sprays into both nostrilstwo times a day. ??? montelukast (SINGULAIR) 10 MG tablet Take 10 mg by mouth every evening. ??? Multiple Vitamins-Minerals (ICAPS AREDS FORMULA OR) 1 Tab two times a day. ??? omeprazole (PRILOSEC) 20 MG capsule Take 1 Capsule by mouth two times a day. Take 1 hour before a meal. 180 Capsule 3 ??? pravastatin (PRAVACHOL) 40 MG tablet TAKE 1 TABLET BY MOUTH EVERY NIGHT AT BEDTIME 90 Tablet 3 ??? Pseudoephedrine-guaiFENesin (MUCINEX D OR) Take 1 Tablet by mouth daily. ??? vitamin B-12 (AKA: CYANOCOBALAMIN) 1000 MCG tablet Take 1 Tablet by mouth daily. 100 Tablet 3 Current Facility-Administered Medications Medication Dose Route Frequency Provider Last Rate Last Admin ??? cyanocobalamin (IMACBLQG90) injection 1,000 mcg 1,000 mcg Intramuscular Other (See Comments) Placido Ott MD 1,000 mcg at 04/28/18 7877 Allergies: Citrullus vulgaris, Excedrin extra strength [wjvzinm-lgyiblmwqyeni-gnrlzeut], Molds &smuts, Peanut (diagnostic), Acetaminophen-caffeine, Banana, and Levaquin [levofloxacin] Patient Active Problem List Diagnosis ??? Spinal stenosis, lumbar region, without neurogenic claudication ??? Allergic rhinitis ??? Bladder neck obstruction ??? Primary localized osteoarthrosis, other specified sites ??? Irritable bowel syndrome ??? Mild persistent asthma without complication ??? Polyp of nasal cavity ??? Neural hearing loss, bilateral ??? Dysphagia ??? Gout ??? Glaucoma ??? Orchitis and epididymitis ??? Prostate cancer (HRC) ??? GERD (gastroesophageal reflux disease) ??? Dizziness ??? Dilated aortic root (HRC) ??? Macular degeneration ??? Stenosis of intracranial vessel ??? Vertebrobasilar artery syndrome ??? Acquired cerebral ventriculomegaly (HRC) ??? Prostatitis ??? Hematuria, unspecified ??? Postural kyphosis of lumbar region ??? Urinary retention ??? Actinic keratosis of multiple sites of head and neck ??? Neuralgia, neuritis, and radiculitis, unspecified ??? Lumbago (HRC) ??? Vitamin B12 deficiency Habits: Social History Tobacco Use ??? Smoking status: Former Smoker Quit date: 12/24/1997 Years since quittin.0 ??? Smokeless tobacco: Never Used Substance Use Topics ??? Alcohol use: Yes Alcohol/week: 7.0 standard drinks Types: 7 Standard drinks or equivalent per week Comment: moderate Past Surgical History: Procedure Laterality Date ??? BCC NOSE BEFORE 2009 MOHS ??? CATARACT REMOVAL bilateral ??? EXCISION BCC [...] by Ruby. Last time 12/13. ??? TURP Observed: BP (!) 168/93 (BP Location: Right Arm, BP Cuff Size: Large) Pulse 73 Resp 12 Wt 236 lb (107 kg) BMI 35.36 kg/m?? Estimated body mass index is 35.36 kg/m?? as calculated from the following: Height as of 06/29/20: 5' 8.5 (1.74 m). Weight as of this encounter: 236 lb (107 kg). General-Well developed well nourished, in no acute distress Neck- supple, no adenopathy, no thyromegaly. Lungs- Normal respiratory effort, Clear to auscultation. CV- Regular Rhythm and Rate with normal S1, S2. No murmur, gallop or rub. Abdomen- Positive bowel sounds, soft, non-tender, no hepatospenomegaly. Data: Labs: Results for orders placed or performed in visit on 12/19/20 Basic Metabolic Panel Result Value Ref Range Sodium 141 136 - 145 mmol/L Potassium 4.4 3.5 - 5.1 mmol/L Chloride 107 98 - 109 mmol/L CO2 26 20 - 29 mmol/L Anion Gap 8 7 - 16 mmol/L Calcium 9.1 8.4 - 10.4 mg/dL BUN 16 7 - 26 mg/dL Creatinine 1.27 (H) 0.73 - 1.18 mg/dL GFR, Estimated 51 (L) >60 mL/min/1.73m2 Glucose 100 70 - 100 mg/dL Hours Fasting 4 ECG: Sinus rhythm Normal ECG When compared with ECG of 16-JAN-2016 17:28, No significant change was found Confirmed by MD SUJATHA, ANDRY ([id number]) on 12/19/2020 3:58:55 PM Assessment and Plan: Pre-op cardiac & risk evaluation: Patient is medically optimized for planned procedure. Cardiac risk for the planned procedure is INTERMEDIATE Cardiac risk factor assessment: heart disease history (VT, angina, CABG, coronary stent)? no History of heart failure/chf? no Renal insufficiency (creat >2.0, GFR<45)? no Diabetes requiring insulin? no History of stroke/ TIA? no Number of cardiac risk factors: 0 Preoperative cardiac evaluation based on these risk factors and functional capacity: Functional capacity is greater or equal to 4 METS without symptoms - no additional testing required. Medication changes are listed in patient instructions below. Special risks: NONE ICD-10-CM 1. Pre-operative general physical examination Z01.818 2. Spinal stenosis of lumbar region with neurogenic claudication Gradually worsening with leg weakness. Proceed with surgery per Dr. Mae. M48.062 3. Elevated BP without diagnosis of hypertension R03.0 Basic Metabolic Panel Will have nurse blood pressure check in about one week. Will bring in cuff for this to compare. Ecg 12-Lead Routine - MUSE Ecg 12-Lead Routine (Lab perform) Hypertension Follow Up ([id number]) 4. Mild persistent asthma without complication J45.30 well controlled, will continue current medications Electronically Signed By: Andry Mukherjee MD documented in this encounter Procedure Notes Lex Mae MD - 12/31/2020 10:21 AM CDT [facility] Brief Orthopaedic Operative Note Surgery Date: 12/31/2020 Surgeon(s) and Role: * Lex Mae MD - Primary * Mahin Dimas PA-C - Assisting Pre-op Diagnosis: Spinal stenosis L3/4 bilateral Post-op Diagnosis: same Procedure(s) (LRB): Bilateral L3-4 Lateral Recess Decompression via Right sided approach (N/A) EBL: 175mL Specimens: none Complications: none Findings: See full dictated operative note Anticoagulation plan:hold for 72 h after drain is removed Activity: Ambulate Weight Bearing Status: WBAT Recommended follow up: 21 days Lex Mae MD Lex Mae MD - 12/31/2020 12:00 AM CDT NAME: ZAID RUTLEDGE CSN: [id number] OPERATIVE REPORT DATE OF SURGERY: 12/31/2020 : 1935 SURGEON: LEX MAE MD PREOPERATIVE DIAGNOSIS: L3-4 spinal stenosis, bilateral. 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 PROCEDURE PERFORMED: 1. Right L3 hemilaminotomy with right L3-4 partial medial facetectomy. 2. Left L3-4 partial medial facetectomy and decompression of the central canal and subarticular zone. 3. Use of operative microscopy. MANAGER DIALYSIS: Mahin Dimas PA-C. Please note this procedure technically required an patient observation assistant for the safety of the patient. Mr. Dimas is an experienced PA in spinal surgery. His assistance was imperative and necessary to safely protect surrounding neural structures as I performed decompressive phase ofthe procedure. ANESTHESIA: General endotracheal anesthesia. ESTIMATED BLOOD LOSS: 175 cc. PACKS/DRAINS: 1 deep Toro-Nieves drain. COMPLICATIONS: None. CONDITION: Stable. DISPOSITION: Postanesthesia care unit. NARRATIVE: Mr. Rutledge is a pleasant 85-year-old gentleman who presented to my office with a complaintof significant back and lower extremity symptoms consistent with neurogenic claudication and radiculopathy. His MRI demonstrated evidence of profound spinal stenosis at L3-4 adjacent to a previous decom pression. An exhaustive course of conservative care had been attempted, but unsuccessful, and the patient opted for surgical intervention. A detailed description of the risks, benefits, and treatment alternatives inherent to the operation were explained in advance to the patient including, but not limited to, failure to improve, cerebrospinal fluid leakage, hemorrhage, infection, permanent or transient nerve root damage, need for future surgery, adjacent segment disease, or recurrence. Despite theserisks, he elected to proceed. He was then seen by his primary care physician and scheduled for surgery. The patient was met in the preoperative holding area by me. At that time, the consent was reviewed and signed. Site was marked on the patient's back. He was then seen by the anesthesia service and escorted back to the operating room. Upon arrival in the operating room, patient was intubated by the anesthesia service without complication and then flipped from supine to prone position on the Alberto frame with special attention paid to padding bony prominences or superficial nerves. His abdomen and genitals found to be hanging free. Patient's back was then prepped and draped in normal sterile fashion.At this point, time- out was called to ensure the proper procedure to be performed, as well as the administration of prophylactic antibiotics. Once completed, the procedure began. C-arm fluoroscopic imaging was brought in the lateral plane. With lateral fluoroscopic imaging, we advanced the spinal needle through the skin to approximate the level of the L3-4 disk space. Once confirmed, the skin was nivia ed, the needle was removed. A midline incision was made extending between spinous processes of L3 and L4, carried down through subcutaneous tissue to underlying fat. Deep fascia was incised longitudinally. Subperiosteal dissection was carried out of the right hemilamina of L3, out to the facet joint at L3-4. A high-speed bur was used to make a permanent nivia at the inferior border of the hemilamina of L3 and a lateral fluoroscopic image confirmed our correct operative level with the marker in place.C-arm was removed and the operating microscope was draped and brought in. Under operative microscopywe identified our permanent nivia as well as the pars interarticularis. We used a high-speed bur, found the hemilaminotomy and a partial medial facetectomy, which was completed with 2 and 3 mm Kerrisons. There was a profound amount of central and subarticular stenosis, particularly on the right side ofthe viry-canal. We took quite some time to safely resect this all the while paying special attentionto protect the dura. The medial aspect of the facet joint extended toward the midline and we were able to safely find its medial edge and then resect this from midline laterally. As we decompressed thethecal sac, slowly regained its normal shape and pulsatile flow. We decompressed laterally until we were flush with the medial border of the L4 pedicle, and the thecal sac and nerve root had regained their normal shape. At this point, we angled the operating table away from me as well as the microscope and we were able to remove the base of the spinous process with a high-speed bur the region dorsally over the thecal sac toward the contralateral subarticular zone on the left and performed a partial f acetectomy with a combination of a high-speed bur and 2 and 3 mm Kerrison and all the while protecting the thecal sac and nerve root. We decompressed laterally on the left side until we could easily palpate the medial border of the L4 pedicle on the left and a ball-tip probe could be safely placed under the pedicle and out the foramen without obstruction. At this point, the thecal sac had regained its normal shape and pulsatile flow and was well decompressed. From the beginning of the procedure, thepatient had a persistent ooze and blood pressure which was somewhat labile and elevated. Due to the significant amount of bleeding, we elected to place a deep Toro-Nieves drain exiting to the right of the incision to prevent a postoperative hematoma. This was secured in place with a silk suture and exited to the right of the wound. We copiously irrigated one last time before closing layers beginning with the deep fascia, which was closed with #1 Vicryl suture. Subcutaneous tissue was closed with 2-0 interrupted Vicryl suture, and skin was closed with a running subcuticular 4-0 stitch. Wound was then cleaned, dried in normal fashion. Steri-Strips and gauze were applied. Drapes removed. The patient was transferred from the prone to supine position, at which point he was extubated by the anesthesia service without complication. All needle and sponge counts were correct at the end of the case. LEX MAE MD CMD/AQS /[id number] documented in this encounter Plan of Treatment Scheduled Referrals Name Type Priority Associated Diagnoses Order S chedule Spine-Surgical Referral Routine ONCE for 1 Oc currences Consult-Adults starting 12/13 until 12/31/2020 Rebur-Ujwqyqxh-Aeo Referral Routine Bilateral stenosis of Ordered: 01/01/2021 lts lateral recess of lumbar spine Home Care Referral Routine Bilateral stenosis of Ordere d: 01/01/2021 lateral recess of lumbar spine documented as of this encounter Procedures Procedure Name Priority Date/Time Associated Comments Diagnosis HEMATOCRIT, BLOOD STAT 12/31/2020 12:28 Result s for this PM CDT procedure are i n the results section. HEMOGLOBIN, BLOOD STAT 12/31/2020 12:28 Result s for this PM CDT procedure are i n the results section. XR C-ARM 2-2.5 HOURS Routine 12/31/2020 10:39 Res ults for this AM CDT procedure are i n the results section. FORAMINOTOMY 12/31/2020 8:20 AM Back pain POSTERIOR APPROACH CDT LUMBAR SPINE COMPLETE BLOOD Routine 12/31/2020 8:10 AM Results for this COUNT-NO DIFF CDT procedure are in the results section. documented in this encounter Results HEMATOCRIT, BLOOD (12/31/2020 12:28 PM CDT) athologist Signature HCT 45.2 38.8 - 50.0 12/31/2020 [place] % 12:32 PM CDT [facility] Specimen Anatomical Collection Method / Collection Time Recei anisa Time (Source) Location / Volume Laterality Blood Venipuncture / 12/31/2020 12:28 1 Unknown PM CDT 12:29 PM CDT Lex Mae MD LAB_1 Performing Organization Address City/State/ZIP Code Phon e Number [facility] [address] [place] [address] [phone] HEMOGLOBIN, BLOOD (12/31/2020 12:28 PM CDT) athologist Signature Hemoglobin 14.7 13.5 - 17.5 12/31/2020 [facility] g/dL 12:32 PM CDT HOSPITAL LAB Specimen Anatomical Collection Method / Collection Time Recei anisa Time (Source) Location / Volume Laterality Blood Venipuncture / 12/31/2020 12:28 1 Unknown PM CDT 12:29 PM CDT Lex Mae MD LAB_1 Performing Organization Address City/[facility]/ZIP Code Phon e Number [facility] [address] [place] [address] [phone] XR C-Arm 2-2.5 Hours (12/31/2020 10:39 AM CDT) Anatomical Region Laterality Modality X-Ray Angiography Specimen (Source) Anatomical Location Collection Method / Collectio n Time Received Time / Laterality Volume Narrative 12/31/2020 10:40 AM CDT Fluoroscopy provided by a mineral technologist. Exact fluoroscopy time is documented in end of exam information in EPIC Lex Mae MD RAD GD HEMOGRAM/PLTS (12/31/2020 8:10 AM CDT) athologist Signature WBC 6.7 3.5 - 10.5 12/31/2020 [place] x10(9)/L 8:20 AM CDT HOSPITAL LAB RBC 4.64 4.32 - 12/31/2020 [place] 5.72 8:20 AM CDT HOSPITAL LAB x10(12)/L Hemoglobin 14.5 13.5 - 12/31/2020 [place] 17.5 g/dL 8:20 AM [facility] HCT 44.8 38.8 - 12/31/2020 [place] 50.0 % 8:20 AM [facility] MCV 96.6 80.0 - 12/31/2020 [place] 100.0 fL 8:20 AM [facility] MCH 31.3 27.6 - 12/31/2020 [place] 33.3 pg 8:20 AM [facility] MCHC 32.4 31.5 - 12/31/2020 [place] 35.2 g/dL 8:20 AM [facility] RDW 14.0 11.9 - 12/31/2020 [place] 15.5 % 8:20 AM [facility] Platelets 180 150 - 450 12/31/2020 [place] x10(9)/L 8:20 AM [facility] Automated NRBC 0 <=0 /100 12/31/2020 [place] WBC 8:20 AM [facility] Specimen Anatomical Collection Method / Collection Time Recei anisa Time (Source) Location / Volume Laterality Blood Venipuncture / 12/31/2020 8:10 12/31/2020 8:15 Unknown AM CDT AM CDT Mahin Dimas PA-C LAB_1 Performing Organization Address City/State/ZIP Code Phon e Number [facility] [address] [place] [address] documented in this encounter Visit Diagnoses Diagnosis 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 - Primary Pain Generalized pain Plan of Care - Yissel Cosby RN - 01/01/2021 12:11 PM CDT [facility] Discharge Note - Nursing Admission Date/Time: 12/31/2020 6:31 AM Attending MD: Lex Mae MD Patient discharged: to Home. Discharge Date: 01/01/2021 Discharge Time: 12:11 PM Patient accompanied by: spouse. Transported by: Wheelchair Valuables were taken [...] with patient/caregiver Was patient discharged on Warfarin? No Patients general condition on discharge: stable All medical devices (telemetry/IV/etc) unless otherwise ordered, have been removed and stored: Yes Plan of Care - Anusha Horn LSW - 01/01/2021 10:43 AM CDT [facility] Care Management Discharge Note Discharge Information: Expected Discharge Date: 01/01/21 Expected Discharge Time: 1100 Patient to be Discharged to: Home Jail Care: [facility] [phone]/ Date Transport Needed: 01/01/21 Discharge transportation is ready to be arranged by [facility]?: no Discharge transport needs:: Family or friend will provide Patient/family is aware of potential transportation [id number] cost: yes Patient/family is aware of discharge plan?: yes Anticipated Discharge Disposition: 06: discharged or transferred to home under care of organized home health service organization Readmission Risk: Predictive Model Details No score data available for Risk of Unplanned Readmission Interventions: Additional Comments: Patient is aware of HHC coming to the home for RN, PT and OT. Patient's family is transporting patient home. 01/01/2021 10:44 AM LUCAS Enrique Case Management/Diesel Engine Mechanic Apprentice [phone] Plan of Care - Yesenia Barrera OTR/L - 01/01/2021 9:27 AM CDT [facility] Acute Occupational Therapy Evaluation Assessment: 85 y.o. male presents with impaired balance, weakness, impaired ability to perform ADL'sand decreased activity tolerance secondary to L3-4 Lateral Recess Decompression . Skilled occupational therapy is medically necessary while patient remains hospitalized. Plan: Based on this session, home with home OT is recommended at discharge. Home Safety evaluation. RECOMMEND SOCK Aid, report of not being able to find his from home. Has High toilet, sock aid, shower chair, and cane, walker. Subjective: Pain 6/10 with activity. Objective: Patient seen in bed with meal sited. Provided with bed mobility training , Fearful of flat bed and pain, Ed on moving pain decreased. FWW mobility. Ed on Car t/f Min A Dressing ed: with AE SBA EOB, Tolieting: I do my self cath by myself. [employer] INFORMATION CLERK and RN collaboration. Orders and Chart reviewed Yes Plan of Care - Eric Corral RN - 01/01/2021 2:11 AM CDT [facility] Plan of Care Note (Nursing) Assessment: Patient is oriented x4, [place]. Pain has been a 6/10 and has been controlled with Oxycodone. Patient's activity this shift up to side of bed with A1, ambulated pala x1. CMS is intact. Dressing is intactwith small old drainage, reinforced. Heart rate is reg. Lungs are clear. Has +bowel sounds and is not passing flatus. Is tolerating a reg diet. Is voiding via self cath q3-5 hours. DANA patent. Plan: Continue to monitor and treat pain as ordered. Encourage ambulation. Anticipate discharge to home on01/01. Plan of Care - Patria Jasso RN - 12/31/2020 9:08 PM CDT [facility] Plan of Care Note (Nursing) Assessment: Patient is oriented x4. Pain has been a 3-6/10 and has been controlled with PRN oxycodone. Patient'sactivity this shift ambulating in room and nguyễn with assist of 1, walker. CMS is intact. NEUROS intact Dressing has small amount of serosanguinous drainage. Heart rate is regular. Lungs are CTA. Has active bowel sounds and is passing flatus. Is tolerating a regular diet. Patient intermittently straight caths large amounts of clear, yellow urine. DANA has 55ml of bloody output. Labs: Hemoglobin Date Value 12/31/2020 14.7 g/dL 09/15/2017 15.1 g/dl Normal: 12-17 Vitals: BP (!) 155/82 Pulse 70 Temp 97.3 ??F (36.3 ??C) (Oral) Resp 16 Ht 5' 9 (1.753 m) Wt 104.8kg (231 lb) SpO2 98% BMI 34.11 kg/m?? Plan: Continue to monitor and treat pain as ordered. Encourage ambulation. Anticipate discharge to home on01/01/21. Plan of Care - George Benz RN - 12/31/2020 2:34 PM CDT Problem: Patient Care Overview (Adult) Goal: Plan of Care Review Outcome: Progressing Goal: Individualization and Mutuality Outcome: Progressing Goal: Discharge Needs Assessment Outcome: Progressing [facility] Plan of Care Note Assessment: Bilateral L3-4 Lateral Recess Decompression via Right sided approach (N/A) Plan: pain control, monitor drain, increase activity as able Subjective: I'm doing OK Objective: A/O x4, reports mild back pain, medicated with 5 mg of oxycodone, pain is tolerable with this and cold therapy on lower back incision. Hemodynamically stable, CMS intact in all extremities. Sats stable on RA, LS clear. Pt straight cathed for 650 ml post op, 30 ml of bloody drainage from DANA, pt up with SBA and cane. --- End of Report --- Plan of Care - Yissel Cosby RN - 12/31/2020 12:03 PM CDT [facility] Nursing Post-Op Note Admission Date/Time: 12/31/2020 6:31 AM Admitted to Med Surg on 12/31/2020 at 1200 pm from PACU into room 147. Transported by: Litter/cart Medical devices present on return from O.R.: IV and DANA x1 Valuables/Belongings with patient upon arrival on unit: Dentures: none Glasses:No Hearing aid:Yes both CPAP: No Jewelry: Yes; wedding ring (taped) General condition on return from O.R.: stable --- End of Report --- documented in this encounter Administered Medications Inactive Administered Medications - up to 3 most recent administrations Medication Order MAR Action Action Date Dose Rate Site ALBUterol sulfate HFA inhaler 2 Given 01/01/2021 8:15 AM CDT 2 P uffs Puff 2 Puff, Inhalation, Q4H PRN, Cough/Wheezing, Starting on Thu12/31/20 at 1150, Until Thu01/01/21 at 1426, Shake well allopurinol (ZYLOPRIM) tablet 100 mg Given 01/01/2021 8:06 AM CDT 100 mg 100 mg, Oral, DAILY, First dose on Thu12/31/20 at 1300, Until Discontinued, Should administer after meals with plenty of fluids. Given 12/31/2020 1:08 PM CDT 100 mg benzocaine-menthol (CEPACOL) lozenge 1 Given 01/01/2021 1:31 AM CDT 1 Lozenge Lozenge 1 Lozenge, Oral, Q2H PRN, Throat Pain, Starting on Thu12/31/20 at 1150, Until Thu01/01/21 at 1426, When tolerating PO., Post-op Given 12/31/2020 12:14 PM CDT 1 Lozenge ceFAZolin (aka ANCEF) 2 g in dextrose Started 01/01/2021 1:30 AM CDT 2 g 200 mL/hr 100 ml IVPB 2 g, Intravenous, Administer over 30 Minutes, Q8H (NON-STND), First dose on Thu12/31/20 at 1700, For 2 doses, Start timing of post op antibiotics from pre op or intra op dose was given Discontinue no later than 24 hours after incision closure., Post-op Started 12/31/2020 5:22 PM CDT 2 g 200 mL/hr diphenhydrAMINE (BENADRYL) injection 25 mg 25 mg, Intravenous, Q6H PRN, Other, for itching, pain, or nausea if patient cannot tolerate oral, Starting on Thu12/31/20 a t 1150, Until Thu01/01/21 at 1426, Post-op dorzolamide-timolol (COSOPT) 22.3-6.8 MG/ML Given 01/01/2021 8:06 AM CDT 1 Drop ophthalmic solution 1 Drop 1 Drop, Both Eyes, BID, First dose on Thu01/01/21 at 0800, Until Discontinued, If patient uses multiple eye drops, allow approximately 5 minutes between instillation of each medication. famotidine (PEPCID) tablet 20 mg Given 01/01/2021 8:06 AM CDT 20 mg 20 mg, Oral, BID, First dose on Thu12/31/20 at 1215, Until Discontinued, Post-op Given 12/31/2020 7:09 PM CDT 20 mg Given 12/31/2020 1:08 PM CDT 20 mg fentaNYL (SUBLIMAZE) injection 50-200 mc g Given 12/31/2020 11:07 AM CDT 50 mcg 50-200 mcg, Intravenous, [id number], Pain, Single dose = 50 mcg, maximum total dose = 200 mcg, Starting on Thu12/31/20 at 1058, Until Thu12/31/20 at 1150, For 4 doses, PACU (only) fluticasone propionate (FLONASE) 50 MCG/ACT Given 12/14 8:06 AM CDT 2 Sprays nasal spray 2 [place] 2 [place], Both Nostrils, BID, First dose (after last modification) on Thu12/31/20 at 2000, Until Discontinued, Shake bottle gently before using. Prime pump prior to first use (press six times until fine mist appears) Blow nose to clear nostrils. Insert applicator into nostril, keeping bottle upright, and close off other nostril. Breathe in through the nose. While inhaling press pump to release spray. Nasal applicator may be removed and rinsed with warm water to clean. Given 12/31/2020 7:10 PM CDT 2 Sprays fluticasone-salmeterol (ADVAIR HFA) 45-21 Given 01/01/2021 8:07 AM CDT 2 Puffs mcg/actuation inhaler 2 Puff 2 Puff, Inhalation, Q12H, First dose (after last reorder) on Thu12/31/20 at 2000, Until Discontinued Given 12/31/2020 7:09 PM CDT 2 Puffs HYDROmorphone (DILAUDID) injection 0.1-0 .5 mg 0.1-0.5 mg, Intravenous, PRN PER PARAMETERS, Pain, Opi oid naive, see admin instructions., Starting on Thu12/31/20 a t 1150, Until Thu01/01/21 at 1426, Give 0.3 mg for moderate pain (4 to 6 using 10 po int scale), 0.5 mg for severe pain (7 or greater using 10 point scale) every 2 hours per pain a ssessment. May give for anticipatory pain (i.e. prior to therapi es, procedures) regardless of current pain score. Give 0.1 to 0.2 mg IV every 30 mi nutes prn for breakthrough pain, maximum 2 doses per 2 hours. Give 0.1 mg IV for mo derate pain (4 to 6 using 10 point scale), 0.2 mg IV for severe pain (7 or greater using 10 point scale). IV Narcotic Analgesics to be given in following preferential seque nce (unless allergic). If ineffective, progress to next preferred agent: 1. HYDR Omorphone 2. Morphine, Post-op HYDROmorphone (DILAUDID) injection 0.5-2 mg Given 12/31/2020 11:08 AM CDT 0.5 mg 0.5-2 mg, Intravenous, Q10MIN PRN, Pain, To be used in combination with fentanyl. Single dose = 0.5 mg, maximum total dose = 2mg, Starting on Thu12/31/20 at 1058, Until Thu12/31/20 at 1150, PACU (only) HYDROmorphone (DILAUDID) tablet 2-4 mg 2-4 mg, Oral, PRN PER PARAMETERS, Pain, Opioid naive, see admin instructions., Starting on Thu12/31/20 at 1150, Until T 01/01/21 at 1426, Give 2 mg for moderate pain (4 to 6 using 10 point scale), 4 mg for severe pa in (7 or greater using 10 point scale) every 4 hours per pain assessment. May gi ve for anticipatory pain (i.e. prior to therapies, procedures) regardless of cu rrent pain score. Oral Narcotic Analgesics to be given in following preferent ial sequence (unless allergic). 1. Tramadol; first line for p atients 80 years and older OR sensitive to narcotics 2. Oxycodone; first line for p atients 79 and younger 3. HYDROmorphone, Post-op hydrOXYzine pamoate (VISTARIL) capsule 2 5 mg 25 mg, Oral, Q6H PRN, Other, for itching , pain, or nausea if patient can tolerate oral, Starting on Thu12/31/20 at 1150, Until Thu at 1426, Post-op lactated ringers infusion Started 12/31/2020 9:16 AM CDT 1,000 mL, Intravenous, at 25 mL/hr, CONTINUOUS, Starting on Thu12/31/20 at 0745, To be used preop UNLESS patient has renal failure, then use NaCl 0.9% IV., Pre-op Continue from Pre-Op 12/31/2020 8:36 AM CDT 25 mL/hr Started 12/31/2020 8:02 AM CDT 1,000 mL 25 mL/hr melatonin tablet 3 mg Given 12/31/2020 10:16 PM CDT 3 mg 3 mg, Oral, HS PRN, Sedation, sleep, Starting on Thu12/31/20 at 1150, Until Thu01/01/21 at 1426, Post-op montelukast (SINGULAIR) tablet 10 mg Given 12/31/2020 7:09 PM CDT 10 mg 10 mg, Oral, EVENING, First dose on Thu12/31/20 at 2000, Until Discontinued morphine injectable 0.5-4 mg 0.5-4 mg, Intravenous, PRN PER PARAMETERS, Pain, Opioi d naive, see admin instructions., Starting on Thu12/31/20 a t 1150, Until Thu01/01/21 at 1426, Give 2 mg for moderate pain (4 to 6 using 10 point scale), 4 mg for severe pain (7 or greater using 10 point scale) every 2 hours per pain a ssessment. May give for anticipatory pain (i.e. prior to therapi es, procedures) regardless of current pain score. Give 0.5 to 1 mg IV every 30 torito rekha prn for breakthrough pain, maximum 2 doses per 2 hours. Give 0.5 mg IV for mo derate pain (4 to 6 using 10 point scale), 1 mg IV for severe pain (7 or greater us ing 10 point scale). IV Narcotic Analgesics to be given in following preferential se quence (unless allergic). If ineffective, progress to next preferred agent: 1. HYDROmorphone 2. Morphine, Post-op multivitamin (THERAGRAN) tablet 1 Tablet Given 01/01/2021 8:06 AM CDT 1 Tablet 1 Tablet, Oral, DAILY, First dose on Thu12/31/20 at 1215, Until Discontinued, Post-op Given 12/31/2020 1:07 PM CDT 1 Tablet NaCl 0.45%-KCl 20 mEq/liter New Bag Started 12/31/2020 10:17 PM 1,0 00 mL 50 mL/hr infusion CDT 1,000 mL, Intravenous, at 50 mL/hr, CONTINUOUS, Starting on Thu12/31/20 at 1215, May discontinue when IV antibiotics are complete and patient is tolerating PO intake, Post-op Started 12/31/2020 1:08 PM CDT 1,000 mL 50 mL/hr ondansetron (ZOFRAN) injection 4 mg 4 mg, Intravenous, Q6H PRN, Nausea, Vomi ting, Give IV if patient cannot tolerate oral, Starting on Thu12/31/20 at 1150, U ntil Thu01/01/21 at 1426, This medication is the first choice for control of nause a/vomiting. If ineffective, causing adverse effects or patient preference, consider prochlorperazine. 1st line - ondansetron, 2nd line - prochlorperazine, Post-op ondansetron (ZOFRAN-ODT) disintegrating tablet 4 mg 4 mg, Oral, Q6H PRN, Nausea, Vomiting, G chris if patient can tolerate oral, Starting on Thu12/31/20 at 1150, Until Thu01/01/21 at 1426, Thi s medication is the first choice for control of nausea/vomiting. I f ineffective, causing adverse effects or patient preference, consider prochlorper azine. 1st line - ondansetron, 2nd line - prochlorperazine, Post-op oxyCODONE (ROXICODONE) immediate release Given 01/01/2021 10:21 AM CDT 5 mg tablet 5-10 mg 5-10 mg, Oral, PRN PER PARAMETERS, Pain, Opioid naive, see admin instructions., Starting on Thu12/31/20 at 1150, Until Thu01/01/21 at 1426, Give 5 mg for moderate pain (4 to 6 using 10 point scale), 10 mg for severe pain (7 or greater using 10 point scale) every 4 hours per pain assessment. May give for anticipatory pain (i.e. prior to therapies, procedures) regardless of current pain score. FIRST LINE for patients 79 years and younger. If ineffective progress to next preferred agent (HYDROmorphone). Oral Narcotic Analgesics to be given in following preferential sequence (unless allergic). 1. Tramadol; first line for patients 80 years and older OR sensitive to narcotics 2. Oxycodone; first line for patients 79 and younger 3. HYDROmorphone, Post-op Given 01/01/2021 5:52 AM CDT 5 mg Given 01/01/2021 1:31 AM CDT [address] (PROTONIX) tablet 40 mg Given 01/01/2021 5:52 AM CDT 40 mg 40 mg, Oral, DAILY AT 0600, First dose on Thu01/01/21 at 0600, Until Discontinued, Tablet should be swallowed whole. Best when taken before a meal, but may be taken with food., Post-op polyethylene glycol (MIRALAX) oral powde r 17 g Given 01/01/2021 8:06 AM CDT 17 g 17 g, Oral, DAILY, First dose on Thu01/01/21 at 0800, Until Discontinued, Do not add to pre-thickened juices. Ok to add to liquid thickened with Thicken-Up., Post-op sennosides-docusate sodium (SENOKOT S) Given 01/01/2021 8:06 AM CDT 1 Tablet 8.6-50 MG per tablet 1 Tablet 1 Tablet, Oral, BID, First dose on Thu01/01/21 at 0800, Until Discontinued, as laxative/stimulant, stool-softening agent, Post-op traMADol (ULTRAM) tablet 25-50 mg 25-50 mg, Oral, PRN PER PARAMETERS, Pain , Opioid naive, see admin instructions., Starting on Thu12/31/20 at 1150, Until T ue 01/01/21 at 1426, Give 25 mg for moderate pain (4 to 6 using 10 point scale), 50 m g for severe pain (7 or greater using 10 point scale) every 4 hours per pain assessment. May gi ve for anticipatory pain (i.e. prior to therapies, procedures) re gardless of current pain score. FIRST LINE for patients 80 years and older OR sensi tive to narcotics. If ineffective progress to next preferred agent (Oxycodone). , Oral Narcotic A nalgesics to be given in following preferential sequence (unless allergic). 1. Tramadol; first line for patients 80 years and older OR sensitive to narcotics 2. Oxycodone; first line for patients 79 and younger 3. HYDROmorphone, Post-op documented in this encounter Active and Recently Administered Medications Times are shown in CDT. Scheduled Medication Order 12/30/2020 12/31/2020 01/01/2021 allopurinol (ZYLOPRIM) tablet 100 mg 130 8 (Given - Provider: George Benz, EULOGIO) 0806 (Given - Provider: Adriana crowder, EULOGIO) 100 mg, Oral, DAILY, First dose on Thu at 1300, Until Discontinued, Should administer after meals with plenty of fluids. ceFAZolin (aka ANCEF) 2 g in dextrose 100 ml IVPB (COMPLETED ) 1722 (Started - Provider: Patria Jasso RN)1752 (Infused - Provider: Patria Jasso RN) 0130 (Started - Provider: Eric Corral RN)0202 (Infused - Provider: Eric Corral RN) 2 g, Intravenous, Administer over 30 Min utes, Q8H (NON-STND), First dose on Thu12/31/20 at 1700, For 2 doses, Start timing of post op antibiotics from pre op or intra op dose was given Discontinue no la ter than 24 hours after incision closure., Post-op ceFAZolin (ANCEF) 2 g (CANCELED) 0851 (S tarted - Provider: Pia Alvarado APRN, HEAD PASTRY CHEF) 2 g, Intravenous, ONCE (NON-SCHEDULED), Starting on Thu12/31/20 at 0724, If non- anaphylactic penicillin allergy, give 100 mg IV test dose. If no reaction, in 2- 5 minutes, complete administration. Start 0 to 60 minutes prior to incision. Repea t in 4 hours if still intraop or if estimated blood loss exceeds 1500 mL, Indications: Perioperative Pharmacoprophylaxis, Pre-op dorzolamide-timolol (COSOPT) 22.3-6.8 MG/ML ophthalmic solution 1 Drop 08 (Given - Provider: Adriana Mcleod, EULOGIO) 1 Drop, Both Eyes, BID, First dose on 01/01/21 at 0800, Until Discontinued, If patient uses multiple eye drops, allow approximately 5 minutes between instillation of each medication. famotidine (PEPCID) 20 mg in 0.9% sodium chloride 50mL IVPB 20 mg, Intravenous, ONCE (NON-SCHEDULED) , Starting on Thu12/31/20 at 1324, For 1 dose, Give prior to discharge, Post-op famotidine (PEPCID) tablet 20 mg 1308 (G iven - Provider: George Benz, EULOGIO)190 (Given - Provider: Patria Jasso, EULOGIO) 0806 (Given - Provider: Adriana Mcleod RN) 20 mg, Oral, BID, First dose on 12/31 at 1215, Until Discontinued, Post-op fluticasone propionate (FLONASE) 50 MCG/ACT nasal spray 2 Sp ray 1909 (Given - Provider: Patria Jasso RN) 08 (Given - Provider: Adriana crowder RN) 2 [place], Both Nostrils, BID, First dose (after last modification) on Thu12/31/20 at 2000, Until Discontinued, Shake bottle gently before using. Prime pump prior to first use (press six times until fine mist appears) Blow nose to clear nostril s. Insert applicator into nostril, keeping bottle upright, and close off other nostril. Breathe in through the nose. While inhaling press pump to release spray. N jacquelyn applicator may be removed and rinsed with warm water to gatito an. fluticasone-salmeterol (ADVAIR HFA) 45-21 mcg/actuation inha ler 2 Puff 1909 (Given - Provider: Patria Jasso, RN) 0807 (Given - Provider: Adriana Mcleod, RN) 2 Puff, Inhalation, Q12H, First dose (af ter last reorder) on Thu12/31/20 at 1999, Until Discontinued montelukast (SINGULAIR) tablet 10 mg 190 9 (Given - Provider: Patria Jasso, RN) 10 mg, Oral, EVENING, First dose on Thu12/31/20 at 1999, Until D iscontinued multivitamin (THERAGRAN) tablet 1 Tablet 1307 (Given - Provider: George Benz, RN) 08 (Given - Provider: Adriana crowder, EULOGIO) 1 Tablet, Oral, DAILY, First dose on Thu12/31/20 at 1215, Until Discontinued, Post-op pantoprazole DR (PROTONIX) tablet 40 mg 05 (Given - Provider: Eric Corral, RN) 40 mg, Oral, DAILY AT 0600, First dose o n Thu01/01/21 at 0600, Until Discontinued, Tablet should be swallowed whole. Best when taken before a meal, but may be taken with food., Post-op polyethylene glycol (MIRALAX) oral powder 17 g 805 (Given - Provider: Adriana Mcleod, EULOGIO) 17 g, Oral, DAILY, First dose on 12/14 at 0800, Until Discontinued, Do not add to pre-thickened juices. Ok to add to liquid thickened with Thicken-Up., Post-op pravastatin (PRAVACHOL) tablet 40 mg 40 mg, Oral, HS, First dose on Thu at 1999, Until Discontinued, This medication is a Category X medication. Therefore, it should not be given to patients. The patient's pregna ncy status must be verified before admin istering this medication. Hazardous waste disposal required. sennosides-docusate sodium (SENOKOT S) 8.6-50 MG per tablet 1 Ta blet 805 (Given - Provider: Adriana Mcleod, EULOGIO) 1 Tablet, Oral, BID, First dose on Thu at 0800, Until Discontinued, as laxative/stimulant, stool-softening agent, Post-op Continuous Medication Order 12/30/2020 12/31/2020 01/01/2021 lactated ringers infusion (CANCELED) 080 2 (Started - Provider: Karin Verdugo RN)0836 (Continue from Pre-Op - Provider: LAZARO Ramirez)0855 (Canceled Entry - Provider: Pia Alvarado APRN, CRNA - Comment: Switch to gravity) 1,000 mL, Intravenous, at 25 mL/hr, CONT INUOUS, Starting on Thu12/31/20 at 0745, To be used preop UNLESS patient has renal failure, then use NaCl 0.9% IV., Pre-op 0856 (Canceled Entry - Provi keila: Pia Alvarado APRN, CRNA)0915 (Stopped - Provider: Pia Alvarado APRN, CRNA - Comment: Switch to gravity)0916 (Started - Provider: Pia Alvarado APRN, CRNA) 1054 (Anesthesia Fluid - Provide r: Pia Alvarado APRN, CRNA) NaCl 0.45% infusion 1453 (Not Given - Pr ovider: George Benz RN - Reason: Order discontinued) 1,000 mL, Intravenous, at 50 mL/hr, CONT INUOUS, Starting on Thu12/31/20 at 1345, May discontinue when patient tolerating PO intake, Post-op NaCl 0.45%-KCl 20 mEq/liter infusion 130 8 (Started - Provider: George Benz, EULOGIO)2217 (New Bag Started - Provider: Patria Jasso RN) 1000 (Stopped - Provider: Yissel Cosby RN) 1,000 mL, Intravenous, at 50 mL/hr, CONT INUOUS, Starting on Thu12/31/20 at 1215, May discontinue when IV antibiotics are complete and patient is tolerating PO intake, Post-op PRN Medication Order 12/30/2020 12/31/2020 01/01/2021 ALBUterol sulfate HFA inhaler 2 Puff 0815 (Given - Provider: Adriana Mcleod, EULOGIO) 2 Puff, Inhalation, Q4H PRN, Cough/Wheez ing, Starting on Thu12/31/20 at 1150, Until Thu01/01/21 at 1426, Shake well aluminum-magnesium hydroxide-simethicone (MYLANTA) 200-200-20 MG/5ML suspension 30 mL 30 mL, Oral, QID PRN, for GI Upset, Star ting on Thu12/31/20 at 1150, Until Thu01/01/21 at 1426, Shake well before administration, Post-op benzocaine-menthol (CEPACOL) lozenge 1 Lozenge 1214 (Given - Provider: Yissel Cosby RN) 0131 (Given - Provider: Eric Corral RN) 1 Lozenge, Oral, Q2H PRN, Throat Pain, S tarting on Thu12/31/20 at 1150, Until Thu01/01/21 at 1426, When tolerating PO., Post-op bisacodyl (DULCOLAX) rectal suppository 10 mg 10 mg, Rectal, BID PRN, Constipation, St arting on Thu01/01/21 at 0800, Until Thu01/01/21 at 1426, Discontinue order when patient has bowel movement, Post-op bupivacaine 0.25% (PF) (SENSORCAINE) injection (CANCELED) 1030 (Given - Provider: Lex Mae MD) ONCE PRN, Starting on Thu12/31/20 at 1030, Until Thu12/31/20 at 1150, Intra-op diazePAM (VALIUM) injection 2-5 mg 2-5 mg, Intravenous, Q6H PRN, Muscle Spa sms, Starting on Thu12/31/20 at 1324, Until Thu01/01/21 at 1426, Start at 2 mg for patients over age of 65, Post-op diazePAM (VALIUM) injection 2-5 mg 2-5 mg, Intravenous, Q6H PRN, Muscle Spa sms, Starting on Thu12/31/20 at 1150, Until Thu01/01/21 at 1426, Start at 2 mg for patients over age of 65, Post-op diazePAM (VALIUM) tablet 2 mg 2 mg, Oral, Q6H PRN, Muscle Spasms, Star ting on Thu12/31/20 at 1324, Until Thu01/01/21 at 1426, q6h prn muscle spasms, Post-op diazePAM (VALIUM) tablet 2 mg 2 mg, Oral, Q6H PRN, Muscle Spasms, Star ting on Thu12/31/20 at 1150, Until Thu01/01/21 at 1426, Post-op diphenhydrAMINE (BENADRYL) injection 25 mg 25 mg, Intravenous, Q4H PRN, Itching, St arting on Thu12/31/20 at 1324, Until Thu01/01/21 at 1426, Post-op diphenhydrAMINE (BENADRYL) injection 25 mg(Linked Group 1) 25 mg, Intravenous, Q6H PRN, Other, for itching, pain, or nausea if patient cannot tolerate oral, Starting on Thu12/31/20 at 1150, Until Thu01/01/21 at 1426, Post-op fentaNYL (SUBLIMAZE) injection 50-200 mcg (CANCELED) 1107 (Given - Provider: Neida Sood RN) 50-200 mcg, Intravenous, A0RCMAGD, Pain, Single dose = 50 mcg, maximum total dose = 200 mcg, Starting on Thu12/31/20 at 1058, Until Thu12/31/20 at 1150, For 4 doses, PACU (only) gentamicin 1,000 mg, polymyxin B 1,000,0 00 Units in sodium chloride for irrigation 500 mL irrigation (CANCELED) 1014 (Given - Provider: Lex Mae MD) ONCE PRN, Starting on Thu12/31/20 at 1014, Until Thu12/31/20 at 1150 HYDROmorphone (DILAUDID) injection 0.1-0.5 mg(Linked Group 2 ) 1409 (See Alternative - Provider: George Benz RN)1819 (See Alternative - Provider: Patria Jasso RN)2216 (See Alternative - Provider: Patria Jasso RN) 0131 (See Alternative - Provider: Eric Corral RN)0552 (See Alternative - Provider: Eric Corral RN)1021 (See Alternative - Provider: Yissel Cosby RN) 0.1-0.5 mg, Intravenous, PRN PER PARAMET ERS, Pain, Opioid naive, see admin instructions., Starting on Thu12/31/20 at 1150, Until Thu01/01/21 at 1426, Give 0.3 mg for moderate pain (4 to 6 using 10 point scale), 0.5 mg for severe pain (7 or gr eater using 10 point scale) every 2 hours per pain assessment. May give for anticipatory pain (i.e. prior to therapies, procedures) regardless of current pain sco re. Give 0.1 to 0.2 mg IV every 30 minut es prn for breakthrough pain, maximum 2 doses per 2 hours. Give 0.1 mg IV for moderate pain (4 to 6 using 10 point scale), 0.2 mg IV for severe pain (7 or greater using 10 point scale). IV Narcotic Anal gesics to be given in following preferential sequence (unless allergic). If ineffective, progress to next preferred agent: 1. HYDROmorphone 2. Morphine, Post-op HYDROmorphone (DILAUDID) injection 0.5-2 mg (CANCELED) 1108 (Given - Provider: Neida Sood RN) 0.5-2 mg, Intravenous, Q10MIN PRN, Pain, To be used in combination with fentanyl. Single dose = 0.5 mg, maximum total dose = 2mg, Starting on Thu12/31/20 at 1058, Until Thu12/31/20 at 1150, PACU (only) HYDROmorphone (DILAUDID) tablet 2-4 mg(Linked Group 2) 1409 (See Alternative - Provider: George Benz RN)1819 (See Alternative - Provider: Patria Jasso RN)2216 (See Alternative - Provider: Patria Jasso RN) 0131 (See Alternative - Provider: Eric Corral RN)0552 (See Alternative - Provider: Eric Corral RN)1021 (See Alternative - Provider: Yissel Cosby, EULOGIO) 2-4 mg, Oral, PRN PER PARAMETERS, Pain, Opioid naive, see admin instructions., Starting on Thu12/31/20 at 1150, Until Thu01/01/21 at 1426, Give 2 mg for moderate pain (4 to 6 using 10 point scale), 4 mg for severe pain (7 or greater using 10 point scale) every 4 hours per pain assessment. May give for anticipatory pain (i.e. prior to therapies, procedures) regardless of current pain score. Oral Narcot ic Analgesics to be given in following p referential sequence (unless allergic). 1. Tramadol; first line for patients 80 years and older OR sensitive to narcotics 2. Oxycodone; first line for patients 79 and younger 3. HYDROmorphone, Post-op hydrOXYzine pamoate (VISTARIL) capsule 25 mg 25 mg, Oral, Q4H PRN, Itching, for itchi ng, pain, or nausea, Starting on Thu12/31/20 at 1324, Until Thu01/01/21 at 1426, Prn for itching, pain, or nausea, Post-op hydrOXYzine pamoate (VISTARIL) capsule 25 mg(Linked Group 1) 25 mg, Oral, Q6H PRN, Other, for itching , pain, or nausea if patient can tolerate oral, Starting on Thu12/31/20 at 1150, Until Thu01/01/21 at 1426, Post-op LORazepam (ATIVAN) tablet 0.5 mg 0.5 mg, Oral, Q6H PRN, Anxiety, Starting on Thu12/31/20 at 1150, Until Thu01/01/21 at 1426, Minimize use during daytime hours, Post-op magnesium hydroxide (MILK OF MAGNESIA) suspension 30 mL 30 mL, Oral, DAILY PRN, Constipation, St arting on Thu01/01/21 at 0800, Until Thu01/01/21 at 1426, Post-op melatonin tablet 3 mg 2216 (Given - Provider: Olson RN) 3 mg, Oral, HS PRN, Sedation, sleep, Sta rting on Thu12/31/20 at 1150, Until Thu01/01/21 at 1426, Post-op morphine injectable 0.5-4 mg(Linked Group 2) 1409 (See Alternative - Provider: George Benz RN)1819 (See Alternative - Provider: Patria Jasso RN)2216 (See Alternative - Provider: Patria Jasso RN) 0131 (See Alternative - Provider: Eric Corral RN)0552 (See Alternative - Provider: Eric Corral RN)1021 (See Alternative - Provider: Yissel Cosby RN) 0.5-4 mg, Intravenous, PRN PER PARAMETER S, Pain, Opioid naive, see admin instructions., Starting on Thu12/31/20 at 1150, Until Thu01/01/21 at 1426, Give 2 mg for moderate pain (4 to 6 using 10 point sca le), 4 mg for severe pain (7 or greater using 10 point scale) every 2 hours per pain assessment. May give for anticipatory pain (i.e. prior to therapies, procedures) regardless of current pain score. Gi ve 0.5 to 1 mg IV every 30 minutes prn f or breakthrough pain, maximum 2 doses per 2 hours. Give 0.5 mg IV for moderate pain (4 to 6 using 10 point scale), 1 mg IV for severe pain (7 or greater using 10 point scale). IV Narcotic Analgesics to be given in following preferential sequence (unless allergic). If ineffective, progress to next preferred agent: 1. HYDROmorphone 2. Morphine, Post-op naloxone (NARCAN) injection 0.1 mg 0.1 mg, Intravenous, Q1MIN PRN, Opioid R eversal, Parameters, RR <, Starting on Thu12/31/20 at 1150, Until Thu01/01/21 at 1426, PRN respiratory rate less than 8/min or patient is difficult to arouse. -Notify provider STAT -Give 0.1 mg every 1 minute until patient is responsive to physical stimulation and is able to take deep breaths. - Continue to closely monitor. - Hold all IV opioids/narcotics/[employer]/s until provider is notified., Post-op ondansetron (ZOFRAN) injection 4 mg 4 mg, Intravenous, Q8H PRN, Nausea, Vomi ting, Starting on Thu12/31/20 at 1324, Until Thu01/01/21 at 1426, This medication is the first choice for control of nausea/vomiting. If ineffective, causing adve rse effects or patient preference, consider prochlorperazine., P ost-op ondansetron (ZOFRAN) injection 4 mg(Linked Group 3) 4 mg, Intravenous, Q6H PRN, Nausea, Vomi ting, Give IV if patient cannot tolerate oral, Starting on Thu12/31/20 at 1150, Until Thu01/01/21 at 1426, This medication is the first choice for control of naus ea/vomiting. If ineffective, causing adv erse effects or patient preference, consider prochlorperazine. 1st line - ondansetron, 2nd line - prochlorperazine, Post-op ondansetron (ZOFRAN-ODT) disintegrating tablet 4 mg(Linked Group 3) 4 mg, Oral, Q6H PRN, Nausea, Vomiting, G chris if patient can tolerate oral, Starting on Thu12/31/20 at 1150, Until Thu01/01/21 at 1426, This medication is the first choice for control of nausea/vomiting. If ineffective, causing adverse effects or patient preference, consider prochlorperazine. 1st line - ondansetron, 2nd line - prochlorperazine, Post-op oxyCODONE (ROXICODONE) immediate release tablet 5-10 mg([facility] ed Group 2) 1409 (Given - Provider: George Benz, EULOGIO)1819 (Given - Provider: Patria Jasso RN)2216 (Given - Provider: Patria Jasso RN) 0131 (Given - Provider: Eric Corral RN)0552 (Given - Provider: Eric Corral RN)1021 (Given - Provider: Yissel Cosby RN) 5-10 mg, Oral, PRN PER PARAMETERS, Pain, Opioid naive, see admin instructions., Starting on Thu12/31/20 at 1150, Until Thu01/01/21 at 1426, Give 5 mg for moderate pain (4 to 6 using 10 point scale), 10 mg for severe pain (7 or greater using 1 0 point scale) every 4 hours per pain assessment. May give for anticipatory pain (i.e. prior to therapies, procedures) regardless of current pain score. FIRST MICHAEL E for patients 79 years and younger. If ineffective progress to next preferred agent (HYDROmorphone). Oral Narcotic Analgesics to be given in following preferential sequence (unless allergic). 1. Tramad ol; first line for patients 80 years and older OR sensitive to narcotics 2. Oxycodone; first line for patients 79 and younger 3. HYDROmorphone, Post-op prochlorperazine (COMPAZINE) injection 5 mg 5 mg, Intravenous, Q6H PRN, Nausea, Vomi ting, Starting on Thu12/31/20 at 1324, Until Thu01/01/21 at 1426, This medication is the second choice for control of nausea/vomiting. If ineffective, causing adv erse effects, or patient preference, contact provider., Post-op sodium chloride 0.9% injection 3 mL 3 mL, Intravenous, PRN PER PARAMETERS, L ine Patency, Starting on Thu12/31/20 at 1150, Until Thu01/01/21 at 1426, Post-op sterile water for irrigation (CANCELED) 0735 (Given - Provider: Lex Mae MD - Comment: water basin) ONCE PRN, Starting on Thu12/31/20 at 0735, Intra-op tamsulosin (FLOMAX) capsule 0.4 mg 0.4 mg, Oral, DAILY PRN, Other, Urinary Retention, Starting on Thu12/31/20 at 1150, Until Thu01/01/21 at 1426, Do not chew, crush, or dissolve the granules inside of the capsule., Post-op traMADol (ULTRAM) tablet 25-50 mg(Linked Group 2) 1409 (See Alternative - Provider: George Benz, EULOGIO)1819 (See Alternative - Provider: Patria Jasso RN)2216 (See Alternative - Provider: Patria Jasso RN) 0131 (See Alternative - Provider: Eric Corral RN)0552 (See Alternative - Provider: Eric Corral RN)1021 (See Alternative - Provider: Yissel Cosby RN) 25-50 mg, Oral, PRN PER PARAMETERS, Pain , Opioid naive, see admin instructions., Starting on Thu12/31/20 at 1150, Until Thu01/01/21 at 1426, Give 25 mg for moderate pain (4 to 6 using 10 point scale), 5 0 mg for severe pain (7 or greater using 10 point scale) every 4 hours per pain assessment. May give for anticipatory pain (i.e. prior to therapies, procedures) regardless of current pain score. FIRST L INE for patients 80 years and older OR s ensitive to narcotics. If ineffective progress to next preferred agent (Oxycodone). , Oral Narcotic Analgesics to be given in following preferential sequence (unl ess allergic). 1. Tramadol; first line f or patients 80 years and older OR sensitive to narcotics 2. Oxycodone; first line for patients 79 and younger 3. HYDROmorphone, Post-op Linked Groups Order Group 1: hydrOXYzine pamoate (VISTARIL) capsule 25 mgJump to med 25 mg, Oral, Q6H PRN, Other, for itching , pain, or nausea if patient can tolerate oral, Starting on Thu12/31/20 at 1150, Until Thu01/01/21 at 1426, Post-op Or diphenhydrAMINE (BENADRYL) injection 25 mgJump to med 25 mg, Intravenous, Q6H PRN, Other, for itching, pain, or nausea if patient cannot tolerate oral, Starting on Thu12/31/20 at 1150, Until Thu01/01/21 at 1426, Post-op Group 2: HYDROmorphone (DILAUDID) injection 0.1-0.5 mgJump to med 0.1-0.5 mg, Intravenous, PRN PER PARAMET ERS, Pain, Opioid naive, see admin instructions., Starting on Thu12/31/20 at 1150, Until Thu01/01/21 at 1426
Give 0.3 mg for moderate pain (4 to 6 using 10 point scale), 0.5 mg for severe pain (7 or greater using 10 point scale) every 2 hours per pain assessment. May give for anticipatory pain (i.e. prior to therapies, procedures) regardless of current pain score. Give 0.1 to 0.2 mg IV every 30 minutes prn for breakthrough pain, maximum 2 doses per 2 hours. Give 0.1 mg IV for moderate pain (4 to 6 using 10 point scale), 0.2 mg IV for severe pain (7 or greater using 10 point scale). &n bsp;IV Narcotic Analgesics to be given in following preferential sequence (unless allergic). If ineffective, progress to next preferred agent: 1. HYDROmorphone 2. Morphine
Post-op Or morphine injectable 0.5-4 mgJump to med 0.5-4 mg, Intravenous, PRN PER PARAMETER S, Pain, Opioid naive, see admin instructions., Starting on Thu12/31/20 at 1150, Until Thu01/01/21 at 1426
Give 2 mg for moderate pain (4 to 6 using 10 p oint scale), 4 mg for severe pain (7 or greater using 10 point scale) every 2 hours per pain assessment. May give for anticipatory pain (i.e. prior to therapies, procedures) regardless of current pain s core. Give 0.5 to 1 mg IV every 30 minut es prn for breakthrough pain, maximum 2 doses per 2 hours. Give 0.5 mg IV for moderate pain (4 to 6 using 10 point scale), 1 mg IV for severe pain (7 or greater u sing 10 point scale). IV Narc otic Analgesics to be given in following preferential sequence (unless allergic). If ineffective, progress to next preferred agent: 1. HYDROmorphone 2. Morphine
Post-op Or traMADol (ULTRAM) tablet 25-50 mgJump to med 25-50 mg, Oral, PRN PER PARAMETERS, Pain , Opioid naive, see admin instructions., Starting on Thu12/31/20 at 1150, Until Thu01/01/21 at 1426
Give 25 mg for moderate pain (4 to 6 using 10 point s geri), 50 mg for severe pain (7 or great er using 10 point scale) every 4 hours per pain assessment. May give for anticipatory pain (i.e. prior to therapies, procedures) regardless of current pain score. FIRST LINE for patients 80 years and older OR sensitive to narcotics. If ineffective progress to next preferred agent (Oxycodone).
Oral Narcotic Analgesics to be given in following preferential sequenc e (unless allergic). 1. Tramadol; first line for patients 80 years and older OR sensitive to narcotics 2. Oxycodone; first line for patients 79 and younger 3. HYDROmorphone
Post-op Or oxyCODONE (ROXICODONE) immediate release tablet 5-10 mgJump to med 5-10 mg, Oral, PRN PER PARAMETERS, Pain, Opioid naive, see admin instructions., Starting on Thu12/31/20 at 1150, Until Thu01/01/21 at 1426
Give 5 mg for moderate pain (4 to 6 using 10 point sca le), 10 mg for severe pain (7 or greater using 10 point scale) every 4 hours per pain assessment. May give for anticipatory pain (i.e. prior to therapies, procedures) regardless of current pain score.&a mp;nbsp; FIRST LINE for patients 79 years and younger. If ineffective progress to next preferred agent (HYDROmorphone). Oral Narcotic Analgesics to be given in following preferential se quence (unless allergic). 1. Tramadol; first line for patients 80 years and older OR sensitive to narcotics 2. Oxycodone;&am p;nbsp; first line for patients 79 and younger 3. HYDROmorphone
Post-op Or HYDROmorphone (DILAUDID) tablet 2-4 mgJump to med 2-4 mg, Oral, PRN PER PARAMETERS, Pain, Opioid naive, see admin instructions., Starting on Thu12/31/20 at 1150, Until Thu01/01/21 at 1426
Give 2 mg for moderate pain (4 to 6 using 10 point scal e), 4 mg for severe pain (7 or greater u sing 10 point scale) every 4 hours per pain assessment. May give for anticipatory pain (i.e. prior to therapies, procedures) regardless of current pain score.&amp ;nbsp; Oral Narcotic Analgesics to be given in following preferential sequence (unless allergic). 1. Tramadol; first line for patients 80 years and older OR sensitive to narc otics 2. Oxycodone; &nbs p;first line for patients 79 and younger 3. HYDROmorphone
Post-op Group 3: ondansetron (ZOFRAN) injection 4 mgJump to med 4 mg, Intravenous, Q6H PRN, Nausea, Vomi ting, Give IV if patient cannot tolerate oral, Starting on Thu12/31/20 at 1150, Until Thu01/01/21 at 1426
This medication is the first choice for control of nausea/vomiting. If ineffective, cau sing adverse effects or patient preference, consider prochlorperazine. 1st line - ondansetron, 2nd line - prochlorperazine
Post-op Or ondansetron (ZOFRAN-ODT) disintegrating tablet 4 mgJump to med 4 mg, Oral, Q6H PRN, Nausea, Vomiting, G chris if patient can tolerate oral, Starting on 12/31/20 at 1150, Until Thu01/01/21 at 1426
This medication is the first choice for control of nausea/vo miting. If ineffective, causing adverse effects or patient preference, consider prochlorperazine. 1st line - ondansetron, 2nd line - prochlorperazine
Post-op documented in this encounter Care Teams Humane Officer Relationship Specialty Start Date End Date Placido Ott MD PCP - General Internal Medicine 10/26/17 10/17/[address] [facility] [place] [id number] documented as of this encounter
--- OUTSIDE RECORDS SUMMARY | 2022-02-24 12:18 | XMS_ITS | Encounter Summary ---
:1935 Author Organization [facility] Address [address], [place] [address] Care Team Providers Name Role Phone Placido Ott MD Primary Care Provider Encounter Details Date Type Department Care Team Description 12/19/2020 Lab Visit [facility] Elevat ed BP without diagnosis of hypertension; [facility] Urinary problem [address] [place] [phone] Social History Tobacco Use Types Packs/Day [...] documented as of this encounter Progress Notes Deepika Arellano RN - 12/19/2020 3:10 PM CDT Per visit on 05-18-2020: PLAN: 1. Twice a year PSA if PSA approaches 10 would consider intervention (medication) this would probably be hormone medication that typically is effective for 5-8 yrs. 2. Continue antibiotics. documented in this encounter Plan of Treatment Not on filedocumented as of this encounter Procedures Procedure Name Priority Date/Time Associated Diagnosis Comme nts EKG/ECG READING AND Routine 12/19/2020 3:28 PM Elevated BP wit hout Results for this TRACING CDT diagnosis of procedure are i n hypertension the results section. ECG 12-LEAD Routine 12/19/2020 3:23 PM Elevated BP without Re sults for this ROUTINE(LAB CDT diagnosis of procedure are i n PERFORM) hypertension the results section. BASIC METABOLIC Routine 12/19/2020 3:23 PM Elevated BP without Results for this PANEL CDT diagnosis of procedure are i n hypertension the results section. PROSTATIC SPECIFIC Routine 12/19/2020 3:23 PM Urinary problem Results for this ANTIGEN (DIAGNOSTIC CDT procedur e are in F/U) the results section. documented in this encounter Results Ecg 12-Lead Routine - MUSE (12/19/2020 3:28 PM CDT) P athologist Signature Ventricular Rate 71 BPM [facility] Atrial Rate 71 BPM [facility] P-R Interval 146 ms [facility] QRS Duration 94 ms [facility] QT 418 ms [facility] QTc 454 ms [facility] P [place] -6 degrees [facility] R [place] -9 degrees [facility] T [place] 0 degrees [facility] Specimen (Source) Anatomical Collection Method Collection Time Re ceived Time Location / / Volume Laterality 12/19/2020 3:28 PM CDT Narrative [facility] - 12/19/2020 3:59 PM CDT Sinus rhythm Normal ECG When compared with ECG of 16-JAN-2016 17 :28, No significant change was found Confirmed by MD SUJATHA, ANDRY ([id number]) on 12/19/2020 3:58:55 PM Procedure Note Andry Solares MD - 12/19/2020Format ting of this note might be different from the original. Sinus rhythm Normal ECG When compared with ECG of 16-JAN-2016 17 :28, No significant change was found Confirmed by MD SOLARES ANDREW ([id number]) on 12/19/2020 3:58:55 PM Andry Solares MD EKG Performing Organization Address City/State/ZIP Code Phon e Number [facility] [address] [place] [address] Ecg 12-Lead Routine (Lab perform) (12/19/2020 3:23 PM CDT) P athologist Signature EKG Completed 12/19/2020 [facility] 5:01 PM CDT [address] Specimen Anatomical Collection Method Collection Time Receive d Time (Source) Location / / Volume Laterality Other Specimen 12/19/2020 3:23 PM 021 3:23 Type CDT PM CDT Andry Solares MD LAB_1 Performing Organization Address City/[facility]/ZIP Code Phon e Number [facility] [address] [place] [address] [facility] [address] [place], [place] [address] [phone] (ABNORMAL) Basic Metabolic Panel (12/19/2020 3:23 PM CDT) Analysis Performed At Patho logist Time Signature Sodium 141 136 - 145 12/19/2020 [facility] mmol/L 3:45 PM CDT [facility] Potassium 4.4 3.5 - 5.1 12/19/2020 [facility] mmol/L 3:45 PM CDT [facility] Chloride 107 98 - 109 12/19/2020 [facility] mmol/L 3:45 PM CDT [facility] CO2 26 20 - 29 12/19/2020 [facility] mmol/L 3:45 PM CDT [facility] Anion Gap 8 7 - 16 12/19/2020 [facility] mmol/L 3:45 PM CDT [facility] Calcium 9.1 8.4 - 10.4 12/19/2020 [facility] mg/dL 3:45 PM CDT [facility] BUN 16 7 - 26 12/19/2020 [facility] mg/dL 3:45 PM CDT [facility] Creatinine 1.27 (H) 0.73 - 12/19/2020 [facility] 1.18 mg/dL 3:45 PM CDT [facility] GFR, Estimated 51 (L) >60 12/19/2020 [facility] mL/min/1.7 3:45 PM CDT [facility] 3m2 Glucose 100 70 - 100 12/19/2020 [facility] mg/dL 3:45 PM CDT [facility] Comment: The given reference range is fo r the fasting state. Non-fasting reference range for glucose is 70 - 180 mg/dL. Hours Fasting 4 12/19/2020 3:45 PM CDT [facility] Specimen Anatomical Collection Method / Collection Time Recei anisa Time (Source) Location / Volume Laterality Blood Venipuncture / 12/19/2020 3:23 12/19/2020 3:23 Unknown PM CDT PM CDT Narrative [facility] - 12/19/2020 3:4 5 PM CDT The National Kidney Disease Education Pr ogram suggests measuring Cystatin C in patients with eGFRcrea of 45 to 59 ml/mi n/1.73^2 who do not have other markers of kidney damage (i.e. elevated urine Album in/Creatinine Ratio or a prior Cystatin C confirming the presence of chronic kidne y disease). Andry Solares MD LAB_1 Performing Organization Address City/State/ZIP Code Phon e Number [facility] [facility] [address] [place] [address] [place] [facility] [address] [place], [place] [address] [phone] (ABNORMAL) Prostatic Specific Antigen (Diagnostic F/U) (12/19/2020 3:23 PM CDT) P athologist Signature Prostatic 6.6 (H) 0.0 - 4.0 12/19/2020 [facility] ng/mL 8:54 PM CDT HOSPITAL LAB Antigen Specimen Anatomical Collection Method / Collection Time Recei anisa Time (Source) Location / Volume Laterality Blood Venipuncture / 12/19/2020 3:23 12/19/2020 3:23 Unknown PM CDT PM CDT Narrative [facility] - 12/19/2020 8:54 PM CDT The Carreon PSA Chemiluminescent immunoas say is used. Results obtained with different test methods or kits cannot be used inte rchangeably. Waqas Rodney MD LAB_1 Performing Organization Address City/State/ZIP Code Phon e Number [facility] [address] [place] [address] documented in this encounter Visit Diagnoses Diagnosis Elevated BP without diagnosis of hyperte nsion Urinary problem Other urinary problems documented in this encounter Care Teams Supervisor Model Making Relationship Specialty Start Date End Date Placido Ott MD PCP - General Internal Medicine 10/26/17 10/17/21 [address] [place] [address] documented as of this encounter
--- OUTSIDE RECORDS SUMMARY | 2022-02-24 12:18 | XMS_ITS | Encounter Summary ---
:1935 Author Organization [email or web address] Address [address], [place] [address] Care Team Providers Name Role Phone Placido Ott MD Primary Care Provider Encounter Details Date Type Department Care Team Description 10/10/2020 Office Visit [facility] Oph, Drive-Up Spec ial screening Up examination for viral [id number] disease (Primary Dx) [place] [phone] Social History Tobacco Use Types Packs/Day Years [...] Name Priority Date/Time Associated Diagnosis Comme nts 2019 NOVEL Routine 10/10/2020 11:10 Special screening Result s for this CORONAVIRUS AM CDT examination for procedure ar e in viral disease the results section. documented in this encounter Results COVID-19 (ROUTINE)- choose patient type (10/10/2020 11:10 AM CDT) [facility] Method Time Signature COVID-19 Not Not 10/11/2020 [facility] Interpretation Detected Detected 12:36 AM [facility] CDT Specimen Anatomical Collection Method Collection Time Receive d Time (Source) Location / / Volume Laterality Swab (Source Non-blood 10/10/2020 11:10 10/10/2020 3:42 Required) Collection / AM CDT PM CDT Unknown Narrative [facility] - 10/11/2020 12:36 AM CDT Test performed by Geological Engineering Teacher Mediated Amplification. TMA has been shown to be equivalent to commercial real-time PCR t ests. This test has been authorized by the FDA under an Emergency Use Authorization (EUA) for use by authorized laboratories. Placido Ott MD LAB_1 Performing Organization Address City/State/ZIP Code Phon e Number [facility] [address] [place] [phone] documented in this encounter Visit Diagnoses Diagnosis Special screening examination for viral disease - Primary Special screening examination for unspec ified viral disease documented in this encounter Care Teams Trekking Guide Relationship Specialty Start Date End Date Placido Ott MD PCP - General Internal Medicine 10/26/17 10/17/[address] [place] [address] documented as of this encounter
--- OUTSIDE RECORDS SUMMARY | 2022-02-24 12:18 | XMS_ITS | Encounter Summary ---
:1935 Author Organization [facility] Address [address], [place] [address] Care Team Providers Name Role Phone Placido Ott MD Primary Care Provider Reason for Visit Reason Comments SKIN LESION Encounter Details Date Type Department Care Team Description 06/29/2020 Office Visit [facility] Sammy Cordero ging skin lesion Beatriz Abraham MD (Primary Dx) Practice [address] [place] [place] [address] [place], [place] [phone] [id number] Social History Tobacco Use Types Packs/Day Years [...] Sign Reading Time Taken Comments Blood Pressure 123/77 06/29/2020 11:37 AM AEROSPACE MECHANIC Pulse 86 06/29/2020 11:37 AM AEROSPACE MECHANIC Temperature 36.5 ??C (97.7 ??F) 06/29/2020 11:32 AM AEROSPACE MECHANIC Respiratory Rate 16 06/29/2020 11:32 AM AEROSPACE MECHANIC Oxygen Saturation 93% 06/29/2020 11:32 AM AEROSPACE MECHANIC Inhaled Oxygen Concentration - - Weight 110.9 kg (244 lb 6.4 oz) 06/29/2020 11:32 AM AEROSPACE MECHANIC Height 174 cm (5' 8.5) 06/29/2020 11:32 AM AEROSPACE MECHANIC Body Mass Index 36.62 06/29/2020 11:32 AM AEROSPACE MECHANIC documented in this encounter Patient Instructions Patient InstructionsAnne Marie Cunningham, BLANKET BINDER - 06/29/2020 11:30 AM CST Healthy Weight Matters Understanding body mass index Your BMI is on your After Visit Summary under ???Today???s Visit.?? You can also find a BMI calculator on the [employer] website at www.nhlbi.nih.gov/health/educational/lose_wt/BMI/bmicalc.htm. BMI ranges for adults BMI BMI categories Below 18.5 Underweight 18.5 to 24.9 Normal weight 25.0 to 29.9 Overweight 30.0 and above Obese If you are overweight or have obesity, your risk increases for developing health problems, such as type 2 diabetes, heart disease, high blood pressure and stroke. Your BMI measurement alone cannot predict your health risk. But if you know your BMI is high, you can take steps to set healthy goals and improve your overall well-being. What can I do to improve my BMI? Losing weight is an important way to reduce your BMI and improve your overall health and well- being. Start small. Aim to lose a few pounds to begin rather than worry about your ideal weight. Here are some tips: + Be physically active. Do activities that you enjoy, give you energy and are safe for you to do.Gradually build up the intensity (how hard your body is working) of activity. Long-term, aim for 30 minutes or more of activity most days of the week. Remember to check with your doctor before starting anyphysical activity program. + Eat real (not processed) food. Eat mostly vegetables, fruit, whole grains and lean proteins. That way, you--not food manufacturers--control the ingredients that go into your meals. + Aim for 5 servings of fruits and vegetables a day. Choose a variety of vegetables with different colors. Have fresh fruit for dessert. Limit deep-fried vegetables, such as danish fries. + Choose lean protein, such as chicken or fish. Try non-meat sources of protein such as beans, soy and other legumes. + Choose whole grains. Whole grain foods, such as whole-wheat bread, brown rice, barley, quinoa and oatmeal, contain the entire grain kernel and are better for your health. Limit refined grains, such as white bread and rice. + Satisfy hunger with unsaturated fat. Fat helps you feel satisfied. Choose unsaturated fats, such as canola or olive oils, nuts and seeds, oil-based dressings and avocados. Limit saturated fats, whichare found in animal products and some plant oils, such as coconut and palm oils. + Pay attention to portion sizes. Use smaller plates, bowls and glasses. Portion out foods before you eat. + Drink water or unsweetened beverages. Avoid soda, sweetened coffees and teas, energy drinks and sports drinks, which are full of added sugar that your body does not need. Water is always the best option. + Eat mindfully. Take time to fully enjoy your food and pay attention to what you are eating. Make meals last 15 to 30 minutes. This gives your body a chance to become satisfied and tell your brain to stop eating. Pay attention to what you are eating, rather than doing other activities such as watching TV or driving. This helps you pay attention to your body???s signals of hunger and fullness. + Share meals when eating at restaurants, or put half of the entr??e in a to-go container before youstart eating. Nutrition Services One-on-one visits with a registered dietitian are available at various clinic locations to help you develop a personalized plan for managing your weight. We also offer classes led by dietitians on a variety of topics. To schedule an appointment, find the clinic that works best for you. + For [facility], call [phone]. + For [facility], call [phone]. + For [facility], call [phone]. + For [facility], call [phone]. + For [facility], call [phone]. (10/2018) ??[facility] HOW TO CARE FORYOUR SKIN AFTER YOUR PROCEDURE IF YOU HAD AN EXCISION OF A SKIN GROWTH: A Band-Aid with Ointment on it was used to cover this site. Oncea day, take the Band-Aid off and wash over the area with soap and water, or shampoo. Reapply Ointment and a Band-Aid. Do this every day until area is healed. SIGNS OF INFECTION TO WATCH FOR: Increased: Redness (it is normal to have about a 1/4 inch of redness at the edge of the biopsy site with a little yellow drainage on the pad of the bandaid) Swelling Pain Bleeding Fever (above 100 degrees F) Make a follow up appointment by calling [phone] if you have any signs of infection. Sammy Cordero MD SPACE MECHANIC documented in this encounter Progress Notes Sammy Cordero MD - 06/29/2020 11:30 AM CST Images from the original note were not included. #1- LEFT SIDE NASAL BRIDGE - NON HEALING SKIN LESION SUBJECTIVE: Zaid Rutledge is a 85 y.o. male who would like a complete skin check today. There is personal historyof skin cancer, basal cell carcinoma, squamous cell carcinoma, treated with excision, actinic keratoses in the past, treated with cryotherapy. There is family history of skin cancer. Patient would liketo have the following lesions removed. We have already discussed this procedure, including option ofnot performing surgery, technique of surgery and potential for scarring. Appears well, alert, oriented, pleasant and cooperative. Complete skin exam is performed. Lesion on nose with patient's observations stated as being present for several months. OBJECTIVE: BP 123/77 (BP Location: Left Arm, BP Cuff Size: Large) Pulse 86 Temp 97.7 ??F (36.5 ??C) (Oral) Resp 16 Ht 5' 8.5 (1.74 m) Wt 244 lb 6.4 oz (110.9 kg) SpO2 93% BMI 36.62 kg/m?? Exam: Skin: suspicious lesion, possible basal cell carcinoma, possible squamous cell carcinoma Features irregular border, nonpigmented, raised, ulcerated, bleeding, size 0.5 cm. ASSESSMENT: Changing skin lesion possible basal cell carcinoma and possible squamous cell carcinoma PLAN: suspicious lesion as described and excision with biopsy is indicated. After informed consent was obtained, using ShurCleanse for cleansing and 1% Lidocaine with epinephrine for anesthetic, with steriletechnique, SHAVE excision was performed to include 1mm around lesion perimeter. The total length was0.6 cm. Cautery used for hemostasis. Wound care instructions were provided. Be alert for any signs of cutaneous infection. The procedure was well tolerated without complications. Pathology was sent to [facility]. Patient likely will need Mohs surgery if positive for basal cell. Follow up: return pending path #2 Lesion: NONHEALING SKIN LESION RIGHT LATERAL FOREHEAD NEAR BAHAI Lesion on RIGHT BAHAI with patient'sobservations stated as being present for >6 months. increasing diameter, increasing thickness, increasing number of lesions, bleeding, tendency to be traumatized, exam of this area shows suspicious lesion, possible basal cell carcinoma, possible squamous cell carcinoma, features irregular border, nonpigmented, raised, ulcerated, inflamed, size 0.9 cm. ASSESSMENT: Changing skin lesion suspicious lesion, possible basal cell carcinoma, possible squamous cell carcinoma PLAN: symptomatic skin lesions as described, suspicious lesion as described , excision with biopsy is indicated. Afterinformed consent was obtained, using ShurCleanse for cleansing and 1% Lidocaine with epinephrine for anesthetic, with sterile technique, SHAVE excision in total was performed to include 1-2 mm around lesion perimeter. Skin tissue was removedwith an incision 1.1 cm long around entire lesion.Cautery was used to further remove peripheral edges and the base of the lesion as well as to controlhemostasis. Antibiotic dressing is applied, and wound care instructions provided. Be alert for any signs of cutaneous infection. The procedure was well tolerated without complications. Pathology was sent to [facility]. Sammy Cordero MD Sun protection with sunscreens and clothing to prevent skin cancer is discussed. The signs and symptoms of malignant skin lesions are reviewed with him today. SPACE MECHANIC Sammy Cordero MD - 06/29/2020 11:30 AM CST Good news. Lesions on nose in forehead are pre cancerous change - actinic keratosis. Procedure should have removed the lesions totally for you. Recheck skin in 3 months. Send pathology report to him SPACE MECHANIC documented in this encounter Plan of Treatment Not on filedocumented as of this encounter Procedures Procedure Name Priority Date/Time Associated Diagnosis Comme nts SURGICAL PATHOLOGY Routine 06/29/2020 12:14 PM Changing skin l esion Results for this AEROSPACE MECHANIC procedure are i n the results section. documented in this encounter Results Surgical Path (06/29/2020 12:14 PM AEROSPACE MECHANIC) Component Value Ref Test Analysis Performed At [facility] gist Range Method Time Signature Case Report Surgical Pathology ?Case: [id number] ? 07/03/2020 [facility] Authorizing Provider: ??Sammy Macario MD ? Collected: ? 06/29/2020 1214 ? 3:29 PM AEROSPACE MECHANIC HOSPITA L Ordering Location: ? [facility] ?? Received: ?06/29/2020 1554 ? [facility] ? Pathologist: ? Etta Madsen MD ? Specimens: ?? A) - Nose, fadi al bridge ? B) - Fore head, right lateral ? FINAL A. Skin, Nose, nasal bridge, shave biopsy: 07/03/2020 [facility] Electronically DIAGNOSIS Hypertrophic actinic keratos is, ulcerated, extending to peripheral margins 3:29 PM [facility] signed by Etta Madsen MD B. Skin, Forehead, right lateral, shave biopsy: on 07/03/2020 at Actinic keratosis 3: 29 PM Clinical non healing skin lesion 07/03/2020 [facility] Information 3:29 PM [facility] Microscopic Microscopic 07/03/2020 [facility] Description examination is 3:29 PM [facility] performed. Gross A. Nose, nasal bridge. 07/03/2020 [facility] Description The specimen is received in formalin and labeled with the patient's name and Nose, nasal bridge. The specimen consists of a white 0.3 cm skin shave biopsy with a white-brown 0.2 cm lesion on the skin 3:29 PM [facility] surface. The specimen is ink ed black, bisected and entirely submitted in one cassette. B. Forehead, right lateral. The specimen is received in formalin and labeled with the patient's name and Forehead, right lateral. The specimen consists of a white 0.6 x 0.5 cm skin shave biopsy with a white-vann 0.3 cm lesion on the skin surface. The specim en is inked black, trisected and entirely submitted in one cassette. DG Embedded 07/03/2020 [facility] Images 3:29 PM [facility] Specimen Anatomical Collection Method Collection Time Receive d Time (Source) Location / / Volume Laterality Tissue NASAL STRUCTURE / Non-blood 06/29/2020 12:14 2020 3:54 Unknown Collection / PM AEROSPACE MECHANIC PM AEROSPACE MECHANIC Unknown Tissue specimen FOREHEAD STRUCTURE 06/29/2020 12:14 3:54 (specimen) / Unknown PM AEROSPACE MECHANIC PM AEROSPACE MECHANIC Gene C Cons[facility]ol [facility] Performing Organization Address City/State/ZIP Code Phon e Number [address] [address] documented in this encounter Visit Diagnoses Diagnosis Changing skin lesion - Primary Unspecified disorder of skin and subcuta neous tissue documented in this encounter Care Teams Cook Specialty Foreign Food Relationship Specialty Start Date End Date Placido Ott MD PCP - General Internal Medicine 10/26/17 10/17/21 [address] [place] [address] documented as of this encounter
--- OUTSIDE RECORDS SUMMARY | 2022-02-24 12:18 | XMS_ITS | Encounter Summary ---
:1935 Author Organization [facility] Address [address], [place] [address] Care Team Providers Name Role Phone Placido Ott MD Primary Care Provider Reason for Visit Reason Comments DIARRHEA Diarrhea Encounter Details Date Type Department Care Team Description 10/09/2020 Nurse Triage [facility] Placido Ott (Diarrhea ) Beatriz Internal T, Medicine [address] [place] [id number] [phone] Social History Tobacco Use Types Packs/Day Years [...] file documented as of this encounter Nursing Alicia Merino RN - 10/09/2020 11:49 AM CDT Reason for Disposition ??? MILD diarrhea (e.g., 1-3 or more stools than normal in past 24 hours) diarrhea without known cause and present > 7 days Answer Assessment - Initial Assessment Questions 1. DIARRHEA SEVERITY: How bad is the diarrhea? How many extra stools have you had in the past 24 hours than normal? - NO DIARRHEA (SCALE 0) - MILD (SCALE 1-3): Few loose or mushy BMs; increase of 1-3 stools over normal daily number of stools; mild increase in ostomy output. - MODERATE (SCALE 4-7): Increase of 4-6 stools daily over normal; moderate increase in ostomy output. * SEVERE (SCALE 8-10; OR 'WORST POSSIBLE'): Increase of 7 or more stools daily over normal; moderateincrease in ostomy output; incontinence. Three times a day 2. ONSET: When did the diarrhea begin? 6-7 days had covid exposure on the 27 of September 3. BM CONSISTENCY: How loose or watery is the diarrhea? Watery after eating 4. VOMITING: Are you also vomiting? If so, ask: How many times in the past 24 hours? no 5. ABDOMINAL PAIN: Are you having any abdominal pain? If yes: What does it feel like? (e.g., crampy, dull, intermittent, constant) Some cramping not severe 6. ABDOMINAL PAIN SEVERITY: If present, ask: How bad is the pain? (e.g., Scale 1-10; mild, moderate, or severe) - MILD (1-3): doesn't interfere with normal activities, abdomen soft and not tender to touch - MODERATE (4-7): interferes with normal activities or awakens from sleep, tender to touch - SEVERE (8-10): excruciating pain, doubled over, unable to do any normal activities Mild 7. ORAL INTAKE: If vomiting, Have you been able to drink liquids? How much fluids have you had inthe past 24 hours? says that he is drinking ok 8. HYDRATION: Any signs of dehydration? (e.g., dry mouth [not just dry lips], too weak to stand, dizziness, new weight loss) When did you last urinate? no 9. EXPOSURE: Have you traveled to a foreign country recently? Have you been exposed to anyone with diarrhea? Could you have eaten any food that was spoiled? covid exposure 10. ANTIBIOTIC USE: Are you taking antibiotics now or have you taken antibiotics in the past 2 months? no 11. OTHER SYMPTOMS: Do you have any other symptoms? (e.g., fever, blood in stool) No, Protocols used: [id number] Yuki Molina - 10/09/2020 11:44 AM CDT Symptoms Describe your symptoms (if pain, include location): Diarrhea When did they start? 10/02/20 What have you tried at home (please specify medication name, if any)? No, This seems to happen after he has eaten Have you recently been seen for this? No [Hvac Manager/Appt Center: Refer to Symptoms Indicating Need for Triage list to determine urgency level and next steps - if Urgent or Routine, schedule appointment within the appropriate timeframe.If patient wants to speak to an RN, please warm transfer/route to RN for further triage.] [Hvac Manager/Appt Center: Add/verify patient preferred pharmacy is highlighted in blue in the Pharmacy Selection under Meds & Orders] [Hvac Manager/Appt Center: If this call is after 3 p.m., communicate to patient: If we are not able to get back to you by the end of the day and your symptoms worsen, please contact the Careline [phone] OR at .] Is it okay to leave a detailed message on your voicemail? Yes I can transfer you to talk to a Triage Nurse or I am happy to get you scheduled with your primary career placement specialist or one of their partners for a Video/Phone Visit to take care of your concern. Which would you prefer? Triage Nurse Yuki Molina Please warm transfer/route to Care Team Support RN / Primary RN / Triage Pool for further triage -OR- follow your regular process documented in this encounter Plan of Treatment Not on filedocumented as of this encounter Visit Diagnoses Not on filedocumented in this encounter Care Teams Hand Trimmer Relationship Specialty Start Date End Date Placido Ott MD PCP - General Internal Medicine 10/26/17 10/17/21 [address] [place] [address] documented as of this encounter
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
--- OUTSIDE RECORDS SUMMARY | 2022-02-24 12:18 | XMS_ITS | Encounter Summary ---
:1935 Author Organization [facility] Address [address] [address] Care Team Providers Name Role Phone Placido Ott MD Primary Care Provider Reason for Referral Consult/Transfer Care (Routine) - New Request Specialty Diagnoses / Procedures Referred By Contact Refer red To Contact Diagnoses Elevated BP without diagnosis of hypertension Andry Solares MD [address] [place] [address] Referral ID Status Reason Start Date Expiration Date Visits V isits Requested Authorized [id number] New Request 12/19/2020 03/20/2022 1 1 Scheduling Instructions Your provider has recommended an appoint ment with [facility]. You may call [phone] to schedule your appoi ntment. Reason for Visit Reason Comments PRE-OP EXAM Encounter Details Date Type Department Care Team Description 12/19/2020 Pre-Op Visit [facility] Andry Solares Pre -operative general physical examination (Primary Dx); Beatriz Shipman MD Spinal stenosis of lumbar region with ne urogenic claudication; Medicine [address] Elevated BP without diagnosi s of hypertension; 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 Good luck with surgery! documented in this encounter Progress Notes Andry Solares MD - 12/19/2020 2:30 PM CDT Pre-operative History and Physical Assessment Name: Zaid Rutledge : 1935 Primary physician: Placido Ott MD. Historical: Zaid Rutledge is a 85 y.o. old male is here for preoperative cardiac and risk evaluation. Patient is scheduled for Bilateral L3-4 Lateral Recess Decompression via Right sided approach on 12/31/[address] Mae at [place]. Pertinent history: Chronic hx of low back [...] Provider Last Rate Last Admin ??? cyanocobalamin (UPBVAQAZ54) injection 1,000 mcg 1,000 mcg Intramuscular Other (See Comments) Placido Ott MD 1,000 mcg at 04/28/18 1513 Allergies: Citrullus vulgaris, Excedrin extra strength [eltiopk-[id number]], Molds &smuts, Peanut (diagnostic), Acetaminophen-caffeine, Banana, and [...] was found Confirmed by MD SUJATHA, ANDRY ([id number]) on 12/19/2020 3:58:55 PM Assessment and Plan: Pre-op cardiac & risk evaluation: Patient is medically optimized for planned procedure. Cardiac risk for the planned procedure is INTERMEDIATE Cardiac risk factor assessment: heart disease history (CA, angina, CABG, coronary stent)? no History of [...] 12-Lead Routine (Lab perform) Hypertension Follow Up ([id number]) 4. Mild persistent asthma without complication J45.30 well controlled, will continue current medications documented in this encounter Plan of Treatment Scheduled Referrals Name Type Priority Associated Diagnoses Order S chedule Hypertension Follow Up Referral Routine Elevated BP withou t Ordered: 12/19/2020 ([id number]) diagnosis of hypertension documented as of this encounter Results Ecg 12-Lead Routine - MUSE (12/19/2020 3:28 PM CDT) P athologist Signature Ventricular Rate 71 BPM [facility] Atrial Rate 71 BPM [facility] P-R Interval 146 ms [facility] QRS Duration 94 ms [facility] QT 418 ms [facility] QTc 454 ms [facility] P [place] -6 degrees [facility] R [place] -9 degrees [facility] T [place] 0 degrees [facility] Specimen (Source) Anatomical Collection Method Collection Time Re ceived Time Location / / Volume Laterality 12/19/2020 3:28 PM CDT Narrative [facility] - 12/19/2020 3:59 PM CDT Sinus rhythm Normal ECG When compared with ECG of 16-JAN-2016 17 :28, No significant change was found Confirmed by MD SOLARES ANDREW ([id number]) on 12/19/2020 3:58:55 PM Procedure Note Andry Solares MD - 12/19/2020Format ting of this note might be different from the original. Sinus rhythm Normal ECG When compared with ECG of 16-JAN-2016 17 :28, No significant change was found Confirmed by MD SOLARES ANDREW ([id number]) on 12/19/2020 3:58:55 PM Andry Solares MD EKG Performing Organization Address City/State/ZIP Code Phon e Number [facility] [address] [place] [address] Ecg 12-Lead Routine (Lab perform) (12/19/2020 3:23 PM CDT) P athologist Signature EKG Completed 12/19/2020 [facility] AT 5:01 PM CD[address] Specimen Anatomical Collection Method Collection Time Receive d Time (Source) Location / / Volume Laterality Other Specimen 12/19/2020 3:23 PM 021 3:23 Type CDT PM CDT Andry Solares MD LAB_1 Performing Organization Address City/State/ZIP Code Phon e Number [facility] [address] [place], [place] [address] [facility] [address] [place], [place] [address], [facility] [phone] (ABNORMAL) Basic Metabolic Panel (12/19/2020 3:23 PM [...] Fasting 4 12/19/2020 3:45 PM CDT [facility] Specimen Anatomical Collection Method / Collection Time Recei anisa Time (Source) Location / Volume Laterality Blood Venipuncture / 12/19/2020 3:23 12/19/2020 3:23 Unknown PM CDT PM CDT Narrative [facility] - 12/19/2020 3:4 5 PM CDT The [...] Code Phon e Number [facility] [address] [place], [place] [address] [facility] [address], [place] [address] [phone] documented in this encounter Visit Diagnoses Diagnosis Pre-operative general physical examinati on - Primary Other specified pre-operative examinatio n Spinal stenosis of lumbar region with ne urogenic claudication Spinal stenosis, lumbar region, with honorio rogenic claudication Elevated BP without diagnosis of hyperte nsion Mild persistent asthma without complicat ion (HRC) Unspecified asthma Elevated BP without diagnosis of hyperte nsion Urinary problem Other urinary problems documented in this encounter Care Teams Director Of Corporate Strategy Relationship Specialty Start Date End Date Placido Ott MD PCP - General Internal Medicine 10/26/17 10/17/21 [address] [place] [address] documented as of this encounter
--- OUTSIDE RECORDS SUMMARY | 2022-02-24 12:18 | XMS_ITS | Encounter Summary ---
:1935 Author Organization [employer] Address [address], [place] [address] Care Team Providers Name Role Phone Placido Ott MD Primary Care Provider Encounter Details Date Type Department Care Team Description 11/28/2020 Notes/Orders LV Operating Room Douglas Mae Pre-op evaluation 927 Davon Mccarthy MD (Primary Dx) [place] [address] [address] [facility] [phone] [place], [place] [id number] (Wo rk) Social History Tobacco Use Types [...] on filedocumented as of this encounter Results 2019 Novel Coronavirus (COVID-19) (12/29/2020 11:18 AM CDT) [facility] gist Method Time Signature COVID-19 Not Not 12/30/2020 [facility] Interpretation Detected Detected 6:08 AM CENTRAL LAB CDT Source Nares, left 12/30/[address] [facility] and right 6:08 AM CENTRAL LAB CDT Specimen Anatomical Collection Method Collection Time Receive d Time (Source) Location / / Volume Laterality Swab (Source Non-blood 12/29/2020 11:18 12/29/2020 Required) Collection / AM CDT 11:18 AM CDT Unknown Narrative [facility] CENTRAL [facility] - 12/30/2020 6:08 AM CDT Test performed by Hand Edger Mediated Amplification. TMA has been shown to be equivalent to commercial real-time PCR t ests. This test has been authorized by the FDA under an Emergency Use Authorization (EUA) for use by authorized laboratories. Douglas Mae MD LAB_1 Performing Organization Address City/State/ZIP Code Phon e Number [facility] [address] [address] documented in this encounter Visit Diagnoses Diagnosis Pre-op evaluation - Primary Preoperative examination, unspecified documented in this encounter Care Teams Food And Beverage Service Manager Relationship Specialty Start Date End Date Placido Ott MD PCP - General Internal Medicine 10/26/17 10/17/[address] [place] [address] documented as of this encounter
--- OUTSIDE RECORDS SUMMARY | 2022-02-24 12:18 | XMS_ITS | Encounter Summary ---
:1935 Author Organization [employer] Address [address] [address] Care Team Providers Name Role Phone Placido Ott MD Primary Care Provider Encounter Details Date Type Department Care Team Description 07/16/2020 Immunization [facility] Clint Dave Encou nter for COVID Vaccine administration of Program [address] vaccine (Primary Dx) [address] [place], [place] [address] [place] [address] [phone] Social History Tobacco Use Types Packs/Day Years [...] as of this encounter Visit Diagnoses Diagnosis Encounter for administration of vaccine - Primary documented in this encounter Care Teams Roll Forming Machine Set Up Mechanic Relationship Specialty Start Date End Date Placido Ott MD PCP - General Internal Medicine 10/26/17 10/17/21 [address] [place] [address] documented as of this encounter
--- OUTSIDE RECORDS SUMMARY | 2022-02-24 12:18 | XMS_ITS | Encounter Summary ---
:1935 Author Organization [employer] Address [address], [place] [address] Care Team Providers Name Role Phone Placido Ott MD Primary Care Provider Reason for Visit Reason Comments Surgery Scheduling Encounter Details Date Type Department Care Team Description 12/24/2020 Telephone Operating Room Sheila Rider aviation tactical readiness officer Scheduling [address] [address] [place] [address] [phone] Social History Tobacco Use Types Packs/Day Years [...] documented as of this encounter Nursing Notes Sheila Rider RN - 12/24/2020 1:45 PM CDT [facility] re: presurgery covid screen test for December 29. This office number and [facility]. documented in this encounter Plan of Treatment Not on filedocumented as of this encounter Visit Diagnoses Not on filedocumented in this encounter Care Teams Profile Saw Operator Relationship Specialty Start Date End Date Placido Ott MD PCP - General Internal Medicine 10/26/17 10/17/21 [address] [place] [address] documented as of this encounter
--- OUTSIDE RECORDS SUMMARY | 2022-02-24 12:18 | XMS_ITS | Encounter Summary ---
:1935 Author [facility] Address [address], [place] [address] Care Team Providers Name Role Phone Placido Ott MD Primary Care Provider Reason for Visit Reason Comments BLOOD PRESSURE CHECK Consult/Transfer Care (Routine) - New Request Specialty Diagnoses / Procedures Referred By Contact Refer red To Contact Diagnoses Elevated BP without diagnosis of hypertension Tesfaye Mukherjee MD [address] [place] [address] Referral ID Status Reason Start Date Expiration Date Visits V isits Requested Authorized [id number] New Request 12/19/2020 03/20/2022 1 1 Encounter Details Date Type Department Care Team Description 12/28/2020 Nursing Visit [facility] Nurse, Cc Jovan melissa for [facility], RN hypertension (Primary [address]) [place], [place] [address] [address] [place], [place] [phone] Social History Tobacco Use Types Packs/Day Years [...] Sign Reading Time Taken Comments Blood Pressure 131/71 12/28/2020 1:10 PM CDT Pulse 73 12/28/2020 1:10 PM CDT Temperature - - Respiratory Rate - - Oxygen Saturation - - Inhaled Oxygen Concentration - - Weight - - Height - - Body Mass Index - - documented in this encounter Progress Notes Mere Sun CMA - 12/28/2020 1:45 PM CDT S Zaid Rutledge here today for follow up blood pressure check. Medications were reviewed: no current blood pressure medications O BP 131/71 (BP Location: Right Arm, BP Cuff Size: Regular) Pulse 73 Blood pressures recorded: BP Readings from Last 1 Encounters: 12/28/20 1310 131/71 A Blood pressure at goal. P Follow-up blood pressure annually or as previously recommended by PCP. Mere Sun CMA 12/28/2020, 1:43 PM documented in this encounter Plan of Treatment Not on filedocumented as of this encounter Visit Diagnoses Diagnosis Screening for hypertension - Primary documented in this encounter Care Teams Soccer Referee Relationship Specialty Start Date End Date Placido Ott MD PCP - General Internal Medicine 10/26/17 10/17/21 [address] [place] [address] documented as of this encounter
--- OUTSIDE RECORDS SUMMARY | 2022-02-24 12:18 | XMS_ITS | Encounter Summary ---
:1935 Author Organization [email or web address] Address [address] [address] Care Team Providers Name Role Phone Placido Ott MD Primary Care Provider Encounter Details Date Type Department Care Team Description 10/08/[address] [facility]ph, Drive-Up Cont act with and Up (suspected) exposure [place] [address] covid-19 [place] [phone] Social History Tobacco Use Types Packs/Day Years [...] as of this encounter Visit Diagnoses Diagnosis Contact with and (suspected) exposure to covid-19 documented in this encounter Care Teams Decontaminator Relationship Specialty Start Date End Date Placido Ott MD PCP - General Internal Medicine 10/26/17 10/17/21 [address] [place] [address] documented as of this encounter
--- OUTSIDE RECORDS SUMMARY | 2022-02-24 12:18 | XMS_ITS | Encounter Summary ---
:1935 Author Organization [facility] Address [address], [place] [address] Care Team Providers Name Role Phone Shelly Ott MD Primary Care Provider Reason for Visit Reason Comments Medication Questions Encounter Details Date Type Department Care Team Description 06/14/2020 Refill [facility] Shelly Ott, Medication Questions Beatriz Internal MD Medicine [address] [place] [place] [address] [place], [place] [phone] (Wo rk) Social History Tobacco Use Types [...] as of this encounter Nursing Notes Shauna Dawson, RN - 06/14/2020 1:37 PM CST Medication(s) approved by RN per Refill Protocol/Standing Order Shauna Dawson RN 06/14/2020, 1:37 PM TED FORMS PROOFREADER Leann Keenan - 06/14/2020 1:24 PM CST COPIED FROM SPLIT REFILL ENCOUNTER Reason for call? Patient states he is due for refills on allopurinol (ZYLOPRIM) 100 MG tablet and omeprazole (PRILOSEC) 20 MG capsule. He states the pharmacy told him that Dr. Ott needs to contact the pharmacy for patient to get the refills. Best time to reach you? any Ok to leave a detailed message? Yes Leann Keenan ....................................06/14/2020 12:52 PM TED FORMS PROOFREADER Interface, Out Surescripts Prov Query - 06/14/2020 1:24 PM CST omeprazole (PRILOSEC) 20 MG capsule Miscellaneous - 12 Month Visit -> The patient is requesting a renewal from a different pharmacy. -> Refill x 12 months, qty: 180, refills: 3 (until due for an office visit) Last qualifying visit: 05/21/2020 (with SHELLY OTT) Next scheduled visit: None Last ordered by SHELLY OTT: 05/21/2020 (24 days ago) QTY: 180, Refills: 3, Sig: take 1 capsule by mouth two times a day. take 1 hour before a meal. (unchanged) Powered by [employer], Reference: [id number], 06/14/2020 1:24:41 PM PRINTED FORMS PROOFREADER, Pool: PETER REFILL RN ([id number]) TED FORMS PROOFREADER documented in this encounter Plan of Treatment Not on filedocumented as of this encounter Visit Diagnoses Not on filedocumented in this encounter Care Teams Narcotics Detective Relationship Specialty Start Date End Date Shelly Ott MD PCP - General Internal Medicine 10/26/17 10/17/21 [address] [place] [address] documented as of this encounter
--- OUTSIDE RECORDS SUMMARY | 2022-02-24 12:18 | XMS_ITS | Encounter Summary ---
:1935 Author Organization [facility] Address [address] [place] [address] Care Team Providers Name Role Phone Shelly Ott MD Primary Care Provider Reason for Visit Reason Comments Refill pravastatin (PRAVACHOL) 40 M G tablet [Pharmacy Med Name: PRAVASTATIN 40MG TABLETS] Encounter Details Date Type Department Care Team Description 07/07/2020 Refill [facility] Shelly Ott Re fill (pravastatin Beatriz Spence MD (PRAVACHOL) 40 MG Medicine [address] tablet [Pharmacy Med [address] [place] Name: PRAVASTATIN 40[address] [place] [address] [place], [place] TABLETS]) [phone] Social History Tobacco Use Types Packs/Day Years [...] documented as of this encounter Nursing Notes Adelaide Rehman RN - 07/09/2020 7:49 AM CST Medication(s) approved by RN per Refill Protocol/Standing Order. Adelaide Rehman RN 07/09/2020, 7:49 AM E WRANGLER Interface, Out Surescripts Prov Query - 07/07/2020 4:01 AM CST pravastatin (PRAVACHOL) 40 MG tablet [Pharmacy Med Name: PRAVASTATIN 40MG TABLETS] Miscellaneous - 12 Month Visit -> Refill x 12 months, qty: 90, refills: 3 (until due for an office visit) Last qualifying visit: 05/21/2020 (with SHELLY OTT) (A more recent visit (in Family Practice with LUIS A HORN) was found) Next scheduled visit: None Last ordered by SHELLY OTT: 10/14/2019 (267 days ago) QTY: 90, Refills: 2, Sig: take 1 tablet by mouth every night at bedtime (unchanged) Powered by [employer], Reference: [id number], 07/07/2020 4:01:55 AM HORSE WRANGLER, Pool: SMG REFILL RN ([id number]) E WRANGLER documented in this encounter Plan of Treatment Not on filedocumented as of this encounter Visit Diagnoses Diagnosis Hyperlipidemia, unspecified hyperlipidem ia type (HRC) documented in this encounter Care Teams Shrimp Pond Laborer Relationship Specialty Start Date End Date Shelly Ott MD PCP - General Internal Medicine 10/26/17 10/17/21 [address] [place] [address] documented as of this encounter
--- OUTSIDE RECORDS SUMMARY | 2022-02-24 12:18 | XMS_ITS | Encounter Summary ---
:1935 Author Organization [employer] Address [address], [place] [address] Care Team Providers Name Role Phone Placido Ott MD Primary Care Provider Reason for Visit (Routine) - Incomplete Specialty Diagnoses / Procedures Referred By Contact Refer red To Contact Procedures Douglas Mae MD XR C-Arm 2-2.[address] [place] [address] XR C-Arm 1-1.5 Hours [place], [place] [address] Referral ID Status Reason Start Date Expiration Date Visits V isits Requested Authorized [id number] Incomplete 12/31/2020 04/01/2022 1 1 Encounter Details Date Type Department Care Team Description 12/31/[address] [facility] Kamran Mae Imaging MD [address] [place] [address]. [address] [place] [address] [place] [address] [phone] (Wo rk) Social History Tobacco Use Types [...] Name Priority Date/Time Associated Diagnosis Comme nts XR C-ARM 2-2.5 Routine 12/31/2020 10:39 AM Result s for this HOURS CDT procedure are i n the results section. documented in this encounter Results XR C-Arm 2-2.5 Hours (12/31/2020 10:39 AM CDT) Anatomical Region Laterality Modality X-Ray Angiography Specimen (Source) Anatomical Location Collection Method / Collectio n Time Received Time / Laterality Volume Narrative 12/31/2020 10:40 AM CDT Fluoroscopy provided by a special procedures technologist. Exact fluoroscopy time is documented in end of exam information in EPIC Douglas Mae MD RAD GD documented in this encounter Visit Diagnoses Not on filedocumented in this encounter Care Teams Tongue Lining Stitcher Relationship Specialty Start Date End Date Placido Ott MD PCP - General Internal Medicine 10/26/17 10/17/[address] [place] [address] documented as of this encounter
--- OUTSIDE RECORDS SUMMARY | 2022-02-24 12:18 | XMS_ITS | Encounter Summary ---
:1935 Author Organization [facility] Address [address] [place] [address] Care Team Providers Name Role Phone Placido Ott MD Primary Care Provider Reason for Visit Reason Comments DIARRHEA x 1 week, covid exposure Encounter Details Date Type Department Care Team Description 10/10/2020 Office Visit [facility] Tesfaye Mukherjee te gastroenteritis Beatriz Internal EMD (Primary Dx) Medicine [address] [place] [place] [address] [phone] Social History Tobacco Use Types Packs/Day Years [...] Sign Reading Time Taken Comments Blood Pressure 136/83 10/10/2020 1:32 PM CDT Pulse 71 10/10/2020 1:32 PM CDT Temperature 36.4 ??C (97.6 ??F) 10/10/2020 1:32 PM CDT Respiratory Rate 18 10/10/2020 1:32 PM CDT Oxygen Saturation 98% 10/10/2020 1:32 PM CDT Inhaled Oxygen Concentration - - Weight 105.7 kg (233 lb) 10/10/2020 1:32 PM CDT Height - - Body Mass Index 34.91 06/29/2020 11:32 AM CONTINUOUS IMPROVEMENT FACILITATOR documented in this encounter Patient Instructions Patient InstructionsTesfaye Mukherjee MD - 10/10/2020 1:30 PM CDT Images from the original note were not included. Username: [email or web address] ? Password: [email or web address] Gastroenteritis: Care Instructions Your Care Instructions Gastroenteritis is an illness that may cause nausea, vomiting, and diarrhea. It is sometimes called stomach flu. It can be caused by bacteria or a virus. You will probably begin to feel better in 1 to 2 days. In the meantime, get plenty of rest and make sure you do not become dehydrated. Dehydration occurs when your body loses too much fluid. Follow-up care is a gonzales part of your treatment and safety. Be sure to make and go to all appointments, and call your doctor if you are having problems. It's also a good idea to know your test results and keep a list of the medicines you take. How can you care for yourself at home? ?? If your doctor prescribed antibiotics, take them as directed. Do not stop taking them just because you feel better. You need to take the full course of antibiotics. ?? Drink plenty of fluids to prevent dehydration. Choose water and other caffeine-free clear liquidsuntil you feel better. If you have kidney, heart, or liver disease and have to limit fluids, talk with your doctor before you increase your fluid intake. ?? Drink fluids slowly, in frequent, small amounts, because drinking too much too fast can cause vomiting. ?? Begin eating mild foods, such as dry toast, yogurt, applesauce, bananas, and rice. Avoid spicy, hot, or high-fat foods, and do not drink alcohol or caffeine for a day or two. Do not drink milk or eat ice cream until you are feeling better. How to prevent gastroenteritis ?? Keep hot foods hot and cold foods cold. ?? Do not eat meats, dressings, salads, or other foods that have been kept at room temperature for more than 2 hours. ?? Use a thermometer to check your refrigerator. It should be between 34??F and 40??F. ?? Defrost meats in the refrigerator or microwave, not on the kitchen counter. ?? Keep your hands and your kitchen clean. Wash your hands, cutting boards, and countertops with hotsoapy water frequently. ?? Cook meat until it is well done. ?? Do not eat raw eggs or uncooked sauces made with raw eggs. ?? Do not take chances. If food looks or tastes spoiled, throw it out. When should you call for help? Call 911 anytime you think you may need emergency care. For example, call if: ? You vomit blood or what looks like coffee grounds. ? You passed out (lost consciousness). ? You pass maroon or very bloody stools. Call your doctor now or seek immediate medical care if: ? You have severe belly pain. ? You have signs of needing more fluids. You have sunken eyes, a dry mouth, and pass only a little urine. ? You feel like you are going to faint. ? You have increased belly pain that does not go away in 1 to 2 days. ? You have new or increased nausea, or you are vomiting. ? You have a new or higher fever. ? Your stools are black and tarlike or have streaks of blood. Watch closely for changes in your health, and be sure to contact your doctor if: ? You are dizzy or lightheaded. ? You urinate less than usual, or your urine is dark yellow or brown. ? You do not feel better with each day that goes by. Where can you learn more? 1. Go to https://www.[employer]/healthlibrary. 2. Enter N142 in the search box. Current as of: March 07, 2020?Content Version: 12.8 ?? [employer]. Care instructions adapted under license by your healthcare professional. If you have questions abouta medical condition or this instruction, always ask your healthcare professional. [employer] disclaims any warranty or liability for your use of this information. documented in this encounter Progress Notes Tesfaye Mukherjee MD - 10/10/2020 1:30 PM CDT Historical: Chief Complaint Patient presents with ??? DIARRHEA x 1 week, covid exposure Diarrhea How long have you had diarrhea? 7 day(s) Have you had a fever? No How many bowel movements have you had in the last 24 hours? 3, but not this am, took Imodium yesterday afternoon Have you had any nausea or vomiting? No Have you had any abdominal pain? YES Where in your abdomen is the pain located? middle On a scale of 1 to 10, how severe is your pain? 5 Have you had bloody stools? No Since your symptoms began, have you lost weight? No Have you used any antibiotics in the last 3 months? No Have you traveled outside the [place] in the last 21 days?: No Have any of your family members or a close contact been ill? YES Granddaughter positive covid 10/05/20, grandson diarrhea Have you tried any treatments? YES Imodium OTC Antidirrhoeal: Helped Great grandson has diarrhea too. Had contact with him 10 days ago. Daughter who tested positive for COVID. No fevers or chills. COVID test done this AM, pending. Took Imodium this am and hasn't had diarrhea since. Drinking and eating without difficulty. No nausea or vomiting. I have personally reviewed the patient's allergies, medications, past medical history, rooming notesand problem list in detail and updated the patient record as necessary. Observed: BP 136/83 (BP Location: Right Arm, BP Cuff Size: Large) Pulse 71 Temp 97.6 ??F (36.4 ??C) (Oral) Resp 18 Wt 233 lb (105.7 kg) SpO2 98% BMI 34.91 kg/m?? Estimated body mass index is 34.91 kg/m?? as calculated from the following: Height as of 06/29/20: 5' 8.5 (1.74 m). Weight as of this encounter: 233 lb (105.7 kg). General-Well developed well nourished, in no acute distress Neck- supple, no adenopathy, no thyromegaly. Lungs- Normal respiratory effort, Clear to auscultation. CV- Regular Rhythm and Rate with normal S1, S2. No murmur, gallop or rub. Abdomen- Positive bowel sounds, soft, non-tender, no hepatospenomegaly. Assessment/Plan: ICD-10-CM 1. Acute gastroenteritis K52.9 continue drinking fluids and eating. OK to use Imodium as needed. RTC if not better within one week. Please see orders and patient instructions Tesfaye Mukherjee MD documented in this encounter Plan of Treatment Not on filedocumented as of this encounter Visit Diagnoses Diagnosis Acute gastroenteritis - Primary Other and unspecified noninfectious marlyn roenteritis and colitis documented in this encounter Care Teams Yarder Puncher Relationship Specialty Start Date End Date Placido Ott MD PCP - General Internal Medicine 10/26/17 10/17/21 [address] [place] [id number] documented as of this encounter
--- OUTSIDE RECORDS SUMMARY | 2022-02-24 12:18 | XMS_ITS | Encounter Summary ---
:1935 Author Organization [facility] Address [address] [place] [address] Care Team Providers Name Role Phone Placido Ott MD Primary Care Provider Encounter Details Date Type Department Care Team Description 10/08/2020 Notes/Orders [facility] Placido Ott Con tact with and Sue Spence MD (suspected) exposure [address] to covid-19 [place] [address] [address] [phone] [place], [place] [id number] Social History Tobacco Use Types Packs/Day Years [...] covid-19 documented in this encounter Care Teams Kitchen Porter Relationship Specialty Start Date End Date Placido Ott MD PCP - General Internal Medicine 10/26/17 10/17/21 [address] [place] [address] documented as of this encounter
--- OUTSIDE RECORDS SUMMARY | 2022-02-24 12:18 | XMS_ITS | Encounter Summary ---
:1935 Author Organization [employer] Address [address], [place] [address] Care Team Providers Name Role Phone Placido Ott MD Primary Care Provider Encounter Details Date Type Department Care Team Description 11/02/2020 Orders Only Initial Department Provider, [place], [facility] MICHAEL COLUNGA MD [place], [place] [address] Interface provider [phone] [place] [address] Social History Tobacco Use Types Packs/Day Years [...] Name Priority Date/Time Associated Diagnosis Comme nts MRI-SCAN 11/02/2020 Results for thi s procedure are in the resu lts section. documented in this encounter Results MRI-SCAN (11/02/2020) Anatomical Region Laterality Modality Other Narrative This result has an attachment that is no t available. Interface Provider DUMMY/OTHER/AR documented in this encounter Visit Diagnoses Not on filedocumented in this encounter Care Teams Automatic Thread Winder Relationship Specialty Start Date End Date Placido Ott MD PCP - General Internal Medicine 10/26/17 10/17/21 [address] [place] [address] documented as of this encounter
--- OUTSIDE RECORDS SUMMARY | 2022-02-24 12:18 | XMS_ITS | Encounter Summary ---
:1935 Author Organization [employer] Address [address], [place] [address] Care Team Providers Name Role Phone Placido Ott MD Primary Care Provider Encounter Details Date Type Department Care Team Description 12/31/2020 Surgery LV Operating Room Lex Mae, Bilateral L3-4 Lateral [address] [place] [address] Clemencia Right sided approach [phone] [place], [place] [address] (Wo rk) Social History [...] Sign Reading Time Taken Comments Blood Pressure 139/70 12/31/2020 7:14 AM CDT Pulse 68 12/31/2020 7:14 AM CDT Temperature 36.4 ??C (97.6 ??F) 12/31/2020 7:14 AM CDT Respiratory Rate 16 12/31/2020 7:14 AM CDT Oxygen Saturation 98% 12/31/2020 7:14 AM CDT Inhaled Oxygen Concentration - - Weight 105 kg (231 lb 6.4 oz) 12/31/2020 7:38 AM CDT Height 174 cm (5' 8.5) 12/27/2020 12:16 PM CDT Body Mass Index 34.11 12/31/2020 2:00 PM CDT documented in this encounter Discharge Summaries Micaela Sanchez, RESTAURANT SERVICE MANAGER, MODELING AGENCY MANAGER - 01/01/2021 9:10 AM CDT [facility] Discharge Summary: Spine Admit Date: [...] CNP / Lex Mae MD PHONE NUMBER: [phone] For information about patient referrals and other discharge orders, please see Discharge Instructions or the Other Orders tab in Chart Review. --End of Report-- documented in this encounter Discharge Instructions Discharge InstructionsPat Saini RN - 01/01/2021 6:37 AM CDT Contact Information: [facility] [phone] [facility] [phone] or [phone] If you have had an orthopedic surgery please contact [facility] directly, both during and after clinic hours, at [phone]. Emergency & Urgently Needed Care: For emergencies call 911 and/or get medical help right away. If you are a [facility] member and have medical needs after clinic hours [facility] [phone] or . Information given on: Treatment, diagnosis, [...] fit properly. Discharge Instr - Non RX MedsHPat wright RN - 01/01/2021 6:38 AM CDT Some [...] with your prescription from pharmacy or on nryy-lfo-qqjmxjy medication packaging. Keep a journal/record of when you take your pain medications Do not take on an empty stomach; take with a meal or a small snack Take an hckq-rav-woryxya stool softener while taking narcotics (ex: Senna, Miralax, Colace) as narcotics cause constipation Take pain pill(s) before pain has become uncomfortable - it takes 30-45 minutes for analgesic effect If you are prescribed narcotic pain medications (Oxycodone, [place], Percocet, etc) then you should try to [...] Oxycodone (Roxicodone) Oxycodone-Acetaminophen (Percocet) Hydromorphone (Dilaudid) Hydrocodone-Acetaminophen ([place], Vicodin) These medications are opioids. Prescription opioids [...] not need the opioid pain medication anymore. [place] the opioid pain medication for severepain only. [...] home health clinician.] fluticasone (AKA Place 1 Dickson into 0 08/03/2013 FLONASE) 50 MCG/ACT both [...] Take 1 Tablet by 15 Tablet 0 12/31/ 021 12/11/2021 5 MG immediate release mouth every 8 hours tablet as needed for Pain. pravastatin [The details of the 90 Tablet 3 07/09/202005/17 (PRAVACHOL) 40 MG medication are not tabletIndications: available because Hyperlipidemia, there are pending unspecified changes by a home hyperlipidemia type health clinician.] ([facility]) sennosides-docusate [The details of the 20 Tablet 0 021 12/11/2021 sodium (SENOKOT S) medication are not 8.6-50 MG per available because tabletIndications: there are pending Constipation changes by a home health clinician.] documented as of this encounter Progress Notes Micaela Sanchez, RESTAURANT SERVICE MANAGER, MODELING AGENCY MANAGER - 01/01/2021 9:10 AM CDT Orthopaedics [...] rehabilitation Anticoagulation protocol: ASA 325 mg daily AIRCONDITIONING PLANT OPERATOR starting 72 hrs post drain removal Pain medications: Oxycodone and Tylenol--pt confirms he takes Tylenol daily and is not allergic. Weight bearing status: WBAT, no lifting greater than 10 lbs Disposition: Home today Report completed by: Micaela Sanchez APRN, CNP Date: 01/01/2021 Time: 6:12 PM documented in this encounter H&P Notes Oskar Cuadra MD - 12/31/2020 8:15 AM CDT [facility] Interval History and Physical Note The attached [...] approach on 12/31/[address] Mae at [place]. Pertinent history: Chronic hx of low back [...] Provider Last Rate Last Admin ??? cyanocobalamin ([id number]) injection 1,000 mcg 1,000 mcg Intramuscular Other (See Comments) Placido Ott MD 1,000 mcg at 04/28/18 1513 Allergies: Citrullus vulgaris, Excedrin extra strength [hlbrnka-fggujmlygicmp-seqgpidu], Molds &smuts, Peanut (diagnostic), Acetaminophen-caffeine, Banana, and [...] was found Confirmed by MD SUJATHA, ANDRY ([id number]) on 12/19/2020 3:58:55 PM Assessment and Plan: Pre-op cardiac & risk evaluation: Patient is medically optimized for planned procedure. Cardiac risk for the planned procedure is INTERMEDIATE Cardiac risk factor assessment: heart disease history (UT, angina, CABG, coronary stent)? no History of [...] 12-Lead Routine (Lab perform) Hypertension Follow Up (Gqp571) 4. 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 PROCEDURE PERFORMED: 1. Right L3 hemilaminotomy with right L3-4 partial medial facetectomy. 2. Left L3-4 partial medial facetectomy and decompression of the central canal and subarticular zone. 3. Use of operative microscopy. PIGS FEET CLEANER: Mahin Dimas PA-C. Please note this procedure technically required an technical assistant for the safety of the patient. [...] of the case. LEX MAE MD CMD/AQS /[id number] documented in this encounter Plan of Treatment Scheduled Referrals Name Type Priority Associated Diagnoses Order S chedule Spine-Surgical Referral Routine ONCE for 1 Oc currences Consult-Adults starting 12/13 until 12/31/2020 Otsrv-Mjbpzanj-Kdc Referral Routine Bilateral stenosis of Ordered: 01/01/2021 [...] Results HEMATOCRIT, BLOOD (12/31/2020 12:28 PM CDT) P athologist Signature HCT 45.2 38.8 - 50.0 12/31/2020 [place] % 12:32 PM CDT [facility] Specimen Anatomical Collection Method / Collection Time Recei anisa Time (Source) Location / Volume Laterality Blood Venipuncture / 12/31/2020 12:28 Unknown PM CDT 12:29 PM CDT Lex Mae MD LAB_1 Performing Organization Address City/State/ZIP Code Phon e Number [facility] [address] [place] [address] HEMOGLOBIN, BLOOD (12/31/2020 12:28 PM CDT) athologist Signature Hemoglobin 14.7 13.5 - 17.5 12/31/2020 [place] g/dL 12:32 PM CDT HOSPITAL LAB Specimen Anatomical Collection Method / Collection Time Recei anisa Time (Source) Location / Volume Laterality Blood Venipuncture / 12/31/2020 12:28 1 Unknown PM CDT 12:29 PM CDT Lex Mae MD LAB_1 Performing Organization Address City/[facility]/ZIP Code Phon e Number [facility] [address] [place] [address] XR C-Arm 2-2.5 Hours (12/31/2020 10:39 AM CDT) Anatomical Region Laterality Modality X-Ray Angiography Specimen (Source) Anatomical Location Collection Method / Collectio n Time Received Time / Laterality Volume Narrative 12/31/2020 10:40 AM CDT Fluoroscopy provided by a lead radiologic technologist. Exact fluoroscopy time is documented in end of exam information in EPIC Lex Mae MD RAD GD HEMOGRAM/PLTS (12/31/2020 8:10 AM CDT) athologist Signature WBC 6.7 3.5 - 10.5 12/31/2020 [facility] x10(9)/L 8:20 AM CDT HOSPITAL LAB RBC 4.64 4.32 - 12/31/2020 [place] 5.72 8:20 AM CDT HOSPITAL LAB x10(12)/L Hemoglobin 14.5 13.5 - 12/31/2020 [place] 17.5 g/dL 8:20 AM CDT HOSPITAL LAB HCT 44.8 38.8 - 12/31/2020 [place] 50.0 % 8:20 AM CDT [facility]ITAL [facility] MCV 96.6 80.0 - 12/31/2020 [place] 100.0 fL 8:20 AM CDT HOSPITAL LAB MCH 31.3 27.6 - 12/31/2020 [facility] JRB 33.3 pg 8:20 AM [facility] MCHC 32.4 31.5 - 12/31/2020 [facility] JRB 35.2 g/dL 8:20 AM [facility] RDW 14.0 11.9 - 12/31/2020 [facility] JRB 15.5 % 8:20 AM [facility] Platelets 180 150 - 450 12/31/2020 [facility] J[facility] x10(9)/L 8:20 AM [facility] Automated NRBC 0 <=0 /100 12/31/2020 [facility] J[facility] WBC 8:20 AM [facility] Specimen Anatomical Collection Method / Collection Time Recei anisa Time (Source) Location / Volume Laterality Blood Venipuncture / 12/31/2020 8:10 12/31/2020 8:15 Unknown AM CDT AM CDT Mahin Dimas PA-C LAB_1 Performing Organization Address City/State/ZIP Code Phon e Number [facility] [address] [place] [address] [phone] documented in this encounter Visit Diagnoses Diagnosis 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 - Primary Pain Generalized pain Back pain Backache, unspecified Plan of Care - Yissel Cosby RN - 01/01/2021 12:11 PM CDT [facility] Discharge Note - Nursing Admission Date/Time: 12/31/2020 [...] Horn LSW - 01/01/2021 10:43 AM CDT [facility] Care Management Discharge Note Discharge Information: Expected Discharge Date: 01/01/21 Expected Discharge Time: 1100 Patient to be Discharged to: Home Long-Term Care: [facility], / Date Transport Needed: 01/01/21 Discharge transportation is ready to be arranged by [facility]?: no Discharge transport needs:: Family or friend will provide Patient/family is aware of potential transportation kpu-gq-szsjtr cost: yes Patient/family is aware of discharge [...] home. 01/01/2021 10:44 AM [facility]UC[facility] Enrique Case Management/Steno Pool Supervisor [phone] Plan of Care - Yesenia Barrera OTR/[place] - 01/01/2021 9:27 AM CDT [facility] Acute Occupational Therapy Evaluation Assessment: 85 [...] I do my self cath by myself. PHARMACY TECHNICIAN TRAINEE and RN collaboration. Orders and Chart reviewed Yes Plan of Care - Eric Corral RN - 01/01/2021 2:11 AM CDT [facility] Plan of Care Note (Nursing) Assessment: Patient is oriented x4, [place]. Pain has been a 6/10 and has been controlled with Oxycodone. Patient's activity this shift up to side of bed with A1, ambulated [place] x1. CMS is intact. Dressing is intactwith [...] Jasso RN - 12/31/2020 9:08 PM CDT [facility] Plan of Care Note (Nursing) Assessment: [...] Progressing Goal: Discharge Needs Assessment Outcome: Progressing [facility] Plan of Care Note Assessment: Bilateral L3-4 [...] Cosby RN - 12/31/2020 12:03 PM CDT [facility] Nursing Post-Op Note Admission Date/Time: 12/31/2020 [...] Given 12/31/2020 12:14 PM CDT 1 Lozenge bupivacaine 0.25% (PF) (SENSORCAINE) Given 12/31/2020 10:30 AM C DT 30 mL Wound Site injection ONCE PRN, Starting on Thu12/31/20 at 1030, Until Thu12/31/20 at 1150, Intra-op ceFAZolin (aka ANCEF) 2 g in dextrose [...] AM CDT 50 mcg 50-200 mcg, Intravenous, [id number], Pain, Single dose = 50 mcg, maximum total dose = 200 mcg, Starting on Thu12/31/20 at 1058, Until Thu12/31/20 at 1150, For 4 doses, PACU (only) fluticasone propionate (FLONASE) 50 MCG/ACT Given 12/14 8:06 AM CDT 2 Sprays nasal spray 2 Dickson 2 Dickson, Both Nostrils, BID, First dose (after last [...] Given 12/31/2020 7:09 PM CDT 2 Puffs gentamicin 1,000 mg, polymyxin B Given 12/31/2020 10:14 AM CDT Wound Site 1,000,000 Units in sodium chloride for irrigation 500 mL irrigation ONCE PRN, Starting on Thu12/31/20 at 1014, Until Thu12/31/20 at 1150 HYDROmorphone (DILAUDID) injection 0.1-0 .5 mg 0.1-0.5 [...] Until Discontinued, as laxative/stimulant, stool-softening agent, Post-op sterile water for irrigation Given 12/31/2020 7:35 AM CDT 1,000 mL ONCE PRN, Starting on Thu12/31/20 at 0735, Intra-op traMADol (ULTRAM) tablet 25-50 mg 25-50 mg, [...] 130 8 (Given - Provider: George Benz, RN) 0806 (Given - Provider: Adriana crowder, RN) 100 mg, Oral, DAILY, First dose on Thu at 1300, Until Discontinued, Should administer after meals with plenty of fluids. ceFAZolin (aka ANCEF) 2 g in dextrose 100 ml IVPB (COMPLETED ) 1722 (Started - Provider: Patria Jasso, RN)1752 (Infused - Provider: Patria Jasso RN) 0130 (Started - Provider: Eric Corral, EULOGIO)0202 (Infused - Provider: Eric Corral, RN) 2 g, Intravenous, Administer over 30 Min utes, Q8H (NON-STND), First dose on Thu12/31/20 at 1700, For 2 doses, Start timing of post op antibiotics from pre op or intra op dose was given Discontinue no la ter than 24 hours after incision closure., Post-op ceFAZolin (ANCEF) 2 g (CANCELED) 0851 (S tarted - Provider: Pia Alvarado APRN, SOUND EQUIPMENT MECHANIC) 2 g, Intravenous, ONCE (NON-SCHEDULED), Starting on [...] (COSOPT) 22.3-6.8 MG/ML ophthalmic solution 1 Drop 805 (Given - Provider: Adriana Mcleod RN) 1 Drop, Both Eyes, BID, First [...] 1308 (G iven - Provider: George Benz, EULOGIO)1909 (Given - Provider: Patria Jasso, EULOGIO) 0806 (Given - Provider: Adriana Mcleod, EULOGOI) 20 mg, Oral, BID, First dose on 12/31 at 1215, Until Discontinued, Post-op fluticasone propionate (FLONASE) 50 MCG/ACT nasal spray 2 Sp ray 1909 (Given - Provider: Patria Jasso, EULOGIO) 0806 (Given - Provider: Adriana crowder RN) 2 Dickson, Both Nostrils, BID, First dose (after last [...] mg 05 (Given - Provider: Eric Corral, EULOGIO) 40 mg, Oral, DAILY AT 0600, First dose o n Thu01/01/21 at 0600, Until Discontinued, Tablet should be swallowed whole. Best when taken before a meal, but may be taken with food., Post-op polyethylene glycol (MIRALAX) oral powder 17 g 805 (Given - Provider: Adriana Mcleod RN) 17 g, Oral, DAILY, First dose on [...] blet 805 (Given - Provider: Adriana Mcleod, RN) 1 Tablet, Oral, BID, First dose on Thu at 0800, Until Discontinued, as laxative/stimulant, stool-softening agent, Post-op Continuous Medication Order 12/30/2020 12/31/2020 01/01/2021 lactated ringers infusion (CANCELED) 080 2 (Started - Provider: Karin Verdugo RN)0836 (Continue from Pre-Op - Provider: LAZARO Ramirez)0855 (Canceled Entry - Provider: Pia Alvaraod APRN, CRNA - Comment: Switch to gravity) 1,000 mL, Intravenous, at 25 mL/hr, CONT INUOUS, Starting on Thu12/31/20 at 0745, To be used preop UNLESS patient has renal failure, then use NaCl 0.9% IV., Pre-op 0856 (Canceled Entry - Provi keila: Pia Alvarado APRN, CRNA)0915 (Stopped - Provider: Pia Alvarado APRN, CRNA - Comment: Switch to gravity)0916 (Started - Provider: Pia Alvarado APRN, CHINYERE) 1054 (Anesthesia Fluid - Provide r: Pia Alvarado APRN, CHINYERE) NaCl 0.45% infusion 1453 (Not Given - Pr ovider: George Benz RN - Reason: Order discontinued) 1,000 mL, Intravenous, at 50 mL/hr, CONT INUOUS, Starting on Thu12/31/20 at 1345, May discontinue when patient tolerating PO intake, Post-op NaCl 0.45%-KCl 20 mEq/liter infusion 130 8 (Started - Provider: George Benz, EULOGIO)2217 (New Bag Started - Provider: Patria Jasso RN) 1000 (Stopped - Provider: Yissel Cosby, EULOGIO) 1,000 mL, Intravenous, at 50 mL/hr, CONT INUOUS, Starting on Thu12/31/20 at 1215, May discontinue when IV antibiotics are complete and patient is tolerating PO intake, Post-op PRN Medication Order 12/30/2020 12/31/2020 01/01/2021 ALBUterol sulfate HFA inhaler 2 Puff 0815 (Given - Provider: Adriana Mcleod RN) 2 Puff, Inhalation, Q4H PRN, Cough/Wheez ing, [...] Provider: Neida Sood RN) 50-200 mcg, Intravenous, [id number], Pain, Single dose = 50 mcg, maximum [...] (See Alternative - Provider: Yissel Cosby, EULOGIO) 0.1-0.5 mg, Intravenous, PRN PER PARAMET ERS, [...] Benz, EULOGIO)1819 (See Alternative - Provider: Patria Jasso, EULOGIO)2216 (See Alternative - Provider: Patria Jasso RN) 0131 (See Alternative - Provider: Eric Corral, EULOGIO)0552 (See Alternative - Provider: Eric Corral RN)1021 [...] 1409 (See Alternative - Provider: George Benz RN)181 (See Alternative - Provider: Patria Jasso RN)221 (See Alternative - Provider: Patria Jasso RN) [...] to closely monitor. - Hold all IV opioids/narcotics/DOCK ASSOCIATE/s until provider is notified., Post-op ondansetron (ZOFRAN) [...] Post-op oxyCODONE (ROXICODONE) immediate release tablet 5-10 mg(Link ed Group 2) 1409 (Given - Provider: [...]
Post-op documented in this encounter Care Teams College Tutor Relationship Specialty Start Date End Date Placido Ott MD PCP - General Internal Medicine 10/26/17 10/17/21 [address] [facility] [place] [address] documented as of this encounter
--- OUTSIDE RECORDS SUMMARY | 2022-02-24 12:18 | XMS_ITS | Encounter Summary ---
:1935 Author Organization [employer] Address [address], [place] [address] Care Team Providers Name Role Phone Placido Ott MD Primary Care Provider Encounter Details Date Type Department Care Team Description 12/29/2020 Office Visit [place] [facility], Drive-Up Pre-op evaluation [address] [place] [address] Social History Tobacco Use Types Packs/Day Years [...] Procedure Name Priority Date/Time Associated Comments Diagnosis 2019 NOVEL Routine 12/29/2020 11:18 Pre-op evaluation Result s for this CORONAVIRUS AM CDT procedure are i n the results section. documented in this encounter Results 2019 Novel Coronavirus (COVID-19) (12/29/2020 11:18 AM CDT) [facility] Method Time Signature COVID-19 Not Not 12/30/2020 [facility] Interpretation Detected Detected 6:08 AM CENTRAL LAB CDT Source Nares, left 12/30/2020 [facility] and right 6:08 AM CENTRAL LAB CDT Specimen Anatomical Collection Method Collection Time Receive d Time (Source) Location / / Volume Laterality Swab (Source Non-blood 12/29/2020 11:18 12/29/2020 Required) Collection / AM CDT 11:18 AM CDT Unknown Narrative [facility] - 12/30/2020 6:08 AM CDT Test performed by Electronic Components Assembler Mediated Amplification. TMA has been shown to be equivalent to commercial real-time PCR t ests. This test has been authorized by the FDA under an Emergency Use Authorization (EUA) for use by authorized laboratories. Douglas Mae MD LAB_1 Performing Organization Address City/State/ZIP Code Phon e Number [facility] [address] [address] documented in this encounter Visit Diagnoses Diagnosis Pre-op evaluation Preoperative examination, unspecified documented in this encounter Care Teams Press Tender Star Signal Relationship Specialty Start Date End Date Placido Ott MD PCP - General Internal Medicine 10/26/17 10/17/[address] [place] [address] documented as of this encounter
--- OUTSIDE RECORDS SUMMARY | 2022-02-24 12:18 | XMS_ITS | Encounter Summary ---
:1935 Author Organization [employer] Address [address], [place] [address] Care Team Providers Name Role Phone Placido Ott MD Primary Care Provider Encounter Details Date Type Department Care Team Description 08/06/2020 Immunization [facility] Clint Dave Encou nter for COVID Vaccine administration of Program [address] vaccine (Primary Dx) [address] [place], [place] [address] [place] [address] [phone] Social History Tobacco Use Types Packs/Day Years [...] Primary documented in this encounter Care Teams Retail Office Manager Relationship Specialty Start Date End Date Placido Ott MD PCP - General Internal Medicine 10/26/17 10/17/21 [address] [place] [address] documented as of this encounter
--- OUTSIDE RECORDS SUMMARY | 2022-02-24 12:18 | XMS_ITS | Encounter Summary ---
:1935 Author Organization [facility] Address [address], [place] [address] Care Team Providers Name Role Phone Placido Ott MD Primary Care Provider Encounter Details Date Type Department Care Team Description 12/20/2020 Notes/Orders [facility] Waqas Rodney ostate cancer (HRC) [place] Edson Griffith MD (Primary Dx) [facility] [address] [place] [address] [place], [place] [phone] [address] Social History Tobacco Use Types Packs/Day Years [...] on filedocumented as of this encounter Results (ABNORMAL) Prostatic Specific Antigen (Diagnostic F/U) (02/13/2021 10:19 AM CDT) P athologist Signature Prostatic 7.7 (H) 0.0 - 4.0 02/13/2021 [place] Specific ng/mL 12:02 PM CDT HOSPITAL LAB Antigen Specimen Anatomical Collection Method / Collection Time Recei anisa Time (Source) Location / Volume Laterality Blood Venipuncture / 02/13/2021 10:19 Unknown AM CDT 10:19 AM CDT Narrative [facility] - 02/13/2021 12:02 PM CDT The Carreon PSA Chemiluminescent immunoas say is used. Results obtained with different test methods or kits cannot be used inte rchangeably. Waqas Rodney MD LAB_1 Performing Organization Address City/State/ZIP Code Phon e Number [facility] [address] [place] [address] documented in this encounter Visit Diagnoses Diagnosis Prostate cancer (HRC) - Primary Malignant neoplasm of prostate documented in this encounter Care Teams Metal Grinder Relationship Specialty Start Date End Date Placido Ott MD PCP - General Internal Medicine 10/26/17 10/17/21 [address] [place] [address] documented as of this encounter
--- OUTSIDE RECORDS SUMMARY | 2022-02-24 12:18 | XMS_ITS | Encounter Summary ---
:1935 Author Organization [employer] Address [address] [address] Care Team Providers Name Role Phone Placido Ott MD Primary Care Provider Reason for Visit Reason Comments Surgery Scheduling Encounter Details Date Type Department Care Team Description 12/25/2020 Telephone Operating Room France Tijerina RN Surgery Scheduling [address] [facility] [address] [place] [address] [place] [address] [phone] (Wo rk) Social History Tobacco Use Types [...] documented as of this encounter Nursing Notes France Tijerina, RN - 12/25/2020 1:51 PM CDT Left message advising patient to schedule preop covid test 12/29 for surgery scheduled 12/31 at [place]. Left number for PAT office at [place] and [facility] to facilitate scheduling. France Tijerina RN 12/25/2020, 1:52 PM documented in this encounter Plan of Treatment Not on filedocumented as of this encounter Visit Diagnoses Not on filedocumented in this encounter Care Teams Pump Technician Relationship Specialty Start Date End Date Placido Ott MD PCP - General Internal Medicine 10/26/17 10/17/21 [address] [place] [address] documented as of this encounter
--- OUTSIDE RECORDS SUMMARY | 2022-02-24 12:19 | XMS_ITS | Encounter Summary ---
:1935 Author Organization [facility] Address [address] [address] Care Team Providers Name Role Phone Shelly Ott MD Primary Care Provider Reason for Visit Reason Comments Refill omeprazole (PRILOSEC) 20 MG capsule [Pharmacy Med Name: OMEPRAZOLE DR 20 MG CAPSULE] Encounter Details Date Type Department Care Team Description 11/25/2019 Refill [facility] Shelly Ott Re fill (omeprazole Beatriz Spence MD (PRILOSEC) 20 MG Medicine [address] capsule [Pharmacy Med [address] [place] Name: OMEPRAZOLE [address] [place] [address] [place], [place] MG CAPSULE]) [phone] [id number] Social History Tobacco Use Types Packs/Day Years [...] encounter Nursing Notes Shauna Dawson RN - 11/28/2019 2:28 PM CDT Will deny to [place] pharmacy. See 11/14 encounter, med approved to Theodore Dawson RN 11/28/2019, 2:28 PM Interface, Out Surescripts Prov Query - 11/25/2019 8:34 AM CDT omeprazole (PRILOSEC) 20 MG capsule [Pharmacy Med Name: OMEPRAZOLE DR 20 MG CAPSULE] Miscellaneous - 12 Month Visit -> The patient is requesting a renewal from a different pharmacy. -> Refill x 6 months, qty: 180, refills: 1 (until due for an office visit) Last qualifying visit: 04/20/2019 (with SHELLY OTT) (A more recent visit (in Internal Medicine with NOREEN ASHER) was found) Next scheduled visit: None Last ordered by SHELLY OTT: 11/17/2019 (8 days ago) QTY: 180, Refills: 1, Sig: take 1 capsule by mouth twice daily 1 hour before a meal (changed but equivalent) Powered by De[employer], Reference: [id number], 11/25/2019 8:34:03 AM CDT, Pool: [facility] REFILL RN ([id number]) documented in this encounter Plan of Treatment Not on filedocumented as of this encounter Visit Diagnoses Not on filedocumented in this encounter Care Teams Engineer Systems Relationship Specialty Start Date End Date Shelly Ott MD PCP - General Internal Medicine 10/26/17 10/17/21 [address] [place] [address] documented as of this encounter
--- OUTSIDE RECORDS SUMMARY | 2022-02-24 12:19 | XMS_ITS | Encounter Summary ---
:[address] [facility] Address [address] [address] Care Team Providers Name Role Phone Placido Ott MD Primary Care Provider Encounter Details Date Type Department Care Team Description 04/21/2019 Notes/Orders [facility] Placido Ott tamin [facility] Beatriz Spence MD deficiency (Primary Medicine [address] Dx) [address] [place] [place] [id number] [phone] Social History Tobacco Use Types Packs/Day Years [...] as of this encounter Visit Diagnoses Diagnosis Vitamin B12 deficiency ([facility]) - Primary Other B-complex deficiencies documented in this encounter Care Teams Lather Apprentice Relationship Specialty Start Date End Date Placido Ott MD PCP - General Internal Medicine 10/26/17 10/17/21 [address] [place] [address] documented as of this encounter
--- OUTSIDE RECORDS SUMMARY | 2022-02-24 12:19 | XMS_ITS | Encounter Summary ---
:1935 [facility] Address [address] [address] Care Team Providers Name Role Phone Placido Ott MD Primary Care Provider Reason for Visit Procedure/Equipment (Routine) - Incomplete Specialty Diagnoses / Procedures Referred By Contact Refer red To Contact Diagnoses Chronic cough Placido Ott MD Procedures XR Chest 2 Views [address] [place] [address] Referral ID Status Reason Start Date Expiration Date Visits V isits Requested Authorized [id number] Incomplete 04/20/2019 07/19/2020 1 1 Encounter Details Date Type Department Care Team Description 04/20/2019 Ancillary Procedure [facility] Rebeca Ott Chronic cough Beatriz Spence MD [address] [place], [place] [address] [address] [place], [place] [phone] [id number] Social History Tobacco Use Types Packs/Day Years [...] Priority Date/Time Associated Diagnosis Comme nts XR CHEST 2 VIEWS Routine 04/20/2019 4:42 PM Chronic cough Resu lts for this AGILITY INSTRUCTOR procedure are i n the results section. documented in this encounter Results XR Chest 2 Views (04/20/2019 4:42 PM AGILITY INSTRUCTOR) Anatomical Region Laterality Modality Chest, Lung Computed Radiography Specimen (Source) Anatomical Collection Method Collection Time Re ceived Time Location / / Volume Laterality 04/20/2019 4:42 PM AGILITY INSTRUCTOR Narrative 04/20/2019 8:54 PM AGILITY INSTRUCTOR EXAM: XR CHEST 2 VIEWS LOCATION: [facility] [address] DATE/TIME: 04/20/2019 4:42 PM INDICATION: Cough. COMPARISON: None. IMPRESSION: 2 benign calcified granuloma s in the left midlung. Lungs otherwise clear. Heart size and pulmonary vascularity normal. Old healed left-sided rib fractures. Old healed fracture deformity of the midportion of the left clavicle. Procedure Note Peng Gonzalez MD - 04/20/2019Form atting of this note might be different from the original. EXAM: XR CHEST 2 VIEWS LOCATION: [facility] [address] DATE/TIME: 04/20/2019 4:42 PM INDICATION: Cough. COMPARISON: None. IMPRESSION: 2 benign calcified granuloma s in the left midlung. Lungs otherwise clear. Heart size and pulmonary vascularity normal. Old healed left-sided rib fractures. Old healed fracture deformity of the midportion of the left clavicle. Placido Ott MD RAD GD documented in this encounter Visit Diagnoses Diagnosis Chronic cough Cough documented in this encounter Care Teams Veterinary Technician Instructor Relationship Specialty Start Date End Date Placido Ott MD PCP - General Internal Medicine 10/26/17 10/17/21 [address] [place] [address] documented as of this encounter
--- OUTSIDE RECORDS SUMMARY | 2022-02-24 12:19 | XMS_ITS | Encounter Summary ---
:1935 Author Organization [facility] Address [address], [place] [address] Care Team Providers Name Role Phone Shelly Ott MD Primary Care Provider Reason for Visit Reason Comments Refill allopurinol (ZYLOPRIM) 100 M G tablet [Pharmacy Med Name: ALLOPURINOL 100MG TABLETS] Encounter Details Date Type Department Care Team Description 03/10/2019 Refill [facility] Shelly Ott Re fill (allopurinol [facility] anjel[facility] Spence MD (ZYLOPRIM) 100 MG [address] tablet [[place] [address] [address] Name: ALLOPURINOL 100MG [phone] [place], [place] TABLETS]) [id number] Social History Tobacco Use Types Packs/Day Years [...] encounter Nursing Notes Adelaide Rehman RN - 03/13/2019 10:33 AM CDT Pt is due for labs however will defer to upcoming visit 04/20/19 Medication(s) approved by RN per Refill Protocol/Standing Order. Adelaide Rehman RN 03/13/2019, 10:37 AM Interface, Out Surescripts Prov Query - 03/10/2019 1:18 PM CDT allopurinol (ZYLOPRIM) 100 MG tablet [Pharmacy Med Name: ALLOPURINOL 100MG TABLETS] Endocrinology: Gout Agents - Allopurinol -> ALT, Cr, and GFR ([facility]) are overdue (performed 13 months ago, required every 12 months) -> HCT, HGB, PLT, RBC, RDW, and WBC are overdue (performed over 18 months ago, required every 12 months) -> GFR ([facility]) was found, but the result could not be read. Last qualifying visit: 10/11/2018 (in [facility]) Next scheduled visit: 04/20/2019 (with SHELLY OTT) Last ordered by SHELLY OTT: 12/02/2018 (98 days ago) QTY: 90, Refills: 0, Sig: take 1 tabletby mouth every day (unchanged) Cr: 1.23 mg/dL on 02/26/2018 ALT: 27 U/L on 02/26/2018 HGB: 15.1 g/dL on 09/15/2017 GFR ([facility]): Taken on 02/26/2018 HCT: 44.7 % on 09/15/2017 Age: 83 PLT: 243 k/cmm on 09/15/2017 RBC: 4.88 m/cmm on 09/15/2017 RDW: 13.5 % on 09/15/2017 WBC: 7.3 k/cmm on 09/15/2017 Powered by [employer], Reference: [id number], 03/10/2019 1:18:30 PM CDT, Pool: PETER JEFFERY RN ([id number]) Interface, Out [facility] Query - 03/10/2019 1:18 PM CDT The following lab order(s) may be associated with the Result Note below: COMPLETE BLOOD COUNT-NO DIFF Notes Recorded by Deepika Arellano RN on 09/15/2017 at 1:07 PM P:1. Obtain records' 2. Labs-UA, CBC, PSA (PSA may be elevated from infection) 3. Consider daily antibiotic when travels to reduce another testis infection 4. See Primary Care physician. 5. Call with lab tests.; this will dictate followup. Interface, Out [facility] Query - 03/10/2019 1:18 PM CDT The following lab order(s) may be associated with the Result Note below: ALT (SGPT) Notes Recorded by Caryl Andrew RN on 03/01/2018 at 8:00 AM Patient notified and transferred to scheduling. ...Danielle Andrew RN 03/01/2018 8:00 AM ------ Notes Recorded by Shelly Ott MD on 02/26/2018 at 6:47 PM Phone: labs ok except vitamin B12 level is low, should be treated initially with b12 injections: weekly x 4, then monthly x 5 with recheck of labs at that time, probably change to oral form of med. Injection room notified, he should schedule with them. Shelly Ott MD 02/26/2018 6:47 PM Interface, Out [employer] Prov Query - 03/10/2019 1:18 PM CDT The following lab order(s) may be associated with the Result Note below: BASIC METABOLIC PANEL Notes Recorded by Caryl Andrew RN on 03/01/2018 at 8:00 AM Patient notified and transferred to scheduling. ...Danielle Andrew RN 03/01/2018 8:00 AM ------ Notes Recorded by Shelly Ott MD on 02/26/2018 at 6:47 PM Phone: labs ok except vitamin B12 level is low, should be treated initially with b12 injections: weekly x 4, then monthly x 5 with recheck of labs at that time, probably change to oral form of med. Injection room notified, he should schedule with them. Shelly Ott MD 02/26/2018 6:47 PM documented in this encounter Plan of Treatment Not on filedocumented as of this encounter Visit Diagnoses Not on filedocumented in this encounter Care Teams Concrete Form Setter And Finisher Relationship Specialty Start Date End Date Shelly Ott MD PCP - General Internal Medicine 10/26/17 10/17/[address] [place] [address] documented as of this encounter
--- OUTSIDE RECORDS SUMMARY | 2022-02-24 12:19 | XMS_ITS | Encounter Summary ---
:1935 Author Organization [facility] Address [address], [place] [address] Care Team Providers Name Role Phone Placido Ott MD Primary Care Provider Reason for Visit Reason Comments QUESTIONS, GENERAL Encounter Details Date Type Department Care Team Description 05/17/2019 [facility] [address] [place] [address] [place], [place] [phone] Social History Tobacco Use Types Packs/Day Years [...] documented as of this encounter Nursing Notes Waqas Rodney MD - 05/18/2019 10:23 AM CST Discussed wiht pt on phone no appt at this time. Started on antibiotix. Yuliya Stephens, RN - 05/17/2019 11:52 AM CST Spoke with Corie. Patient has a history of Orchitis was last seen in 2018, He has had to be hospitalized for it in the past. States that last time this happened Dr. Rodney put the patient on strong antibiotics. Corie states his R testicle is slightly more swollen than the L. It started a few days ago. States he is feeling dizzy, has been coughing, chills, fatigue, nausea, unable to assess temp but states he felt warmer than usual. States pain is 5/10, but it comes and goes. Please advise if patient needs an appointment this week, or to be treated. Yuliya Palomino RN 05/17/2019, 12:00 PM Yanely Costa - 05/17/2019 10:26 AM CST Reason for call? Patient is still having issues and wants to speak to someone regarding what to do. No one called him back yesterday and the is getting upset. Best time to reach you? any Ok to leave a detailed message? yes Yanely Oconnor ....................................05/17/2019 10:26 AM Jael Izquierdo - 05/17/2019 8:48 AM CST Symptoms [[facility]: If this call is after 3 p.m., communicate to patient: If we are not able to get back to you by the end of the day and your symptoms worsen, please contact the Careline [phone] OR at .] [[facility]: Refer to Symptoms Indicating Need for Triage list to determine urgency level.] Describe your symptoms (if pain, include location): RECURRING SWOLLEN TESTICLE. OFFERED OPENING TODAY BUT PATIENT IS NOT AVAILABLE TODAY. When did they start? NOT SURE What have you tried at home (please specify medication name, if any)? NOTHING Have you recently been seen for this? No Is it okay to leave a detailed message on your voicemail? Yes Is there anything else I can help you with today? Jael Blair Please warm transfer/route to RNs for further triage ON LAP MACHINE TENDER documented in this encounter Plan of Treatment Not on filedocumented as of this encounter Visit Diagnoses Not on filedocumented in this encounter Care Teams Reed Polisher Relationship Specialty Start Date End Date Placido Ott MD PCP - General Internal Medicine 10/26/17 10/17/21 [address] [place] [address] documented as of this encounter
--- OUTSIDE RECORDS SUMMARY | 2022-02-24 12:19 | XMS_ITS | Encounter Summary ---
:1935 Author Organization [facility] Address [address] [address] Care Team Providers Name Role Phone Placido Ott MD Primary Care Provider Reason for Referral Procedure/Equipment (Routine) - Incomplete Specialty Diagnoses / Procedures Referred By Contact Refer red To Contact Diagnoses Chronic cough Placido Ott MD Procedures XR Chest 2 Views [address] [place] [address] Referral ID Status Reason Start Date Expiration Date Visits V isits Requested Authorized [id number] Incomplete 04/20/2019 07/19/2020 1 1 TENANCE ADVISOR Reason for Visit Reason Comments Medicare Annual Wellness Consult/Transfer Care (Routine) - Closed Specialty Diagnoses / Procedures Referred By Contact Refer red To Contact Diagnoses Encounter for long-term (current) use of medications Placido Ott MD [address] [place] [address] Referral ID Status Reason Start Date Expiration Date Visits Requ ested Visits Authorized [id number] Closed 01/18/2019 04/18/2019 1 1 Encounter Details Date Type Department Care Team Description 04/20/2019 Office Visit [facility] Namrata Placidoshira thakkar for Medicare annual wellness exam (Primary Dx); Beatriz Spence MD Dilated aortic root (HRC); Medicine [address] Essential hypertension; [address] Vitamin B12 deficiency; BERTHA [place] Gastroesoph ageal reflux disease, esophagitis presence not specified; [id number] Hematemesis, presence of nausea not spec ified; [phone] Chronic cough (Work) Social History Tobacco Use Types Packs/Day Years [...] Sign Reading Time Taken Comments Blood Pressure 136/78 04/20/2019 3:06 PM MAINTENANCE ADVISOR Pulse 76 04/20/2019 3:06 PM MAINTENANCE ADVISOR Temperature 36.5 ??C (97.7 ??F) 04/20/2019 3:06 PM MAINTENANCE ADVISOR Respiratory Rate 16 04/20/2019 3:06 PM MAINTENANCE ADVISOR Oxygen Saturation 95% 04/20/2019 3:06 PM MAINTENANCE ADVISOR Inhaled Oxygen Concentration - - Weight 106.6 kg (235 lb) 04/20/2019 3:06 PM MAINTENANCE ADVISOR Height 174 cm (5' 8.5) 04/20/2019 3:06 PM MAINTENANCE ADVISOR Body Mass Index 35.21 04/20/2019 3:06 PM MAINTENANCE ADVISOR documented in this encounter Patient Instructions Patient InstructionsRashmi Egan, BUSINESS RULES DEVELOPER - 04/20/2019 3:00 PM CST Labs and chest xray today. We can decide on next steps from there. Bring in a copy of your living will or Advanced Care directive so we can scan into the electronic medical record. Annual Wellness Visit Summary Your care team is recommending the following tests, procedures or services. Some of these recommendations may not be fully covered by Medicare or your insurance. If you have questions, check with your insurance to determine coverage before completing these services. Health Maintenance Due Health Maintenance Due Topic Date Due ??? HepA (2 of 2 - Risk 2-dose series) 09/23/2016 ??? Influenza (1) 02/13/2019 ??? Medicare Annual Wellness Visit 02/26/2019 If your Medicare Welcome or Annual Wellness Visit is showing you are due in the above list, this will be updated after this visit. You had this completed today and are not due for another year. TENANCE ADVISOR documented in this encounter Progress Notes Placido Ott MD - 04/20/2019 3:00 PM CST Medicare Annual Subjective/Historical: Zaid Rutledge is a 84 y.o. old male Chief Complaint Patient presents with ??? Medicare Annual Wellness Current Concerns: Episode of vomiting x 2 when traveling with small amount of blood. Had some epigastric pain briefly afterward, then symptoms resolved and has felt fine. No history of ulcers, on full asa 325 because ofcerebrovascular disease. On high dose PPI chronically. Has chronic cough, small amount of sputum, Mucinex helpful. Has asthma with wheezing controlled on advair, rare albuterol. Notes some PND, though on flonase. Sees coach cleaner. On high dose PPI. History of B12 deficiency had shots for a few months, then stopped, not on orals, will recheck level. Hypertension - controlled on meds. No chest pain, palpitations, edema. History of dilated aortic root. Mild by echo 2016 Mini-Cog Assessment Word Recall: 2 Clock Draw: 2 Total: 4 Additional Assessments Completed: PHQ-2 was administered today with a total score of: 0 Has a Health Care Directive on file? no. Pertinent Positives from Medicare Wellness Form: MEDICARE ANNUAL WELLNESS CONCERNS 04/20/2019 Do you have difficulty hearing? Yes Do you use a hearing aid? Yes How many servings of fruits and vegetables do you eat a day? 2 to 4 Do you have difficulty doing any of the following activities? Using stairs Do you feel unsteady when walking? Yes If yes, do you use a? Cane Do you have rugs (not carpet) in your home? Yes The patient's health maintenance, problem list, past medical history, past surgical history, family history, medication list, allergies, and immunization records have been reviewed and updated in the patient record as necessary. Observed Vitals: BP 136/78 (BP Location: Right Arm, BP Cuff Size: Regular) Pulse 76 Temp 97.7 ??F (36.5 ??C) (Oral) Resp 16 Ht 5' 8.5 (1.74 m) Wt 235 lb (106.6 kg) SpO2 95% BMI 35.21 kg/m?? Physical Exam: General - pleasant, no acute distress HEENT - PERRL, conjunctiva pink, no scleral icterus; Mouth - mucous membranes moist without oral lesions Neck - supple, no lymphadenopathy or thyromegaly Lungs - normal respiratory effort, clear to auscultation Cardiovascular - regular rate and rhythm, no murmur, rubs, or gallups Abdomen - bowels sounds present, soft, non-tender, no organomegaly or masses Ext - no cyanosis, clubbing, or edema Assessment/Plan (Z00.00) Encounter for Medicare annual wellness exam (primary encounter diagnosis) - All health caremaintenance and preventive counseling issues addressed Plan: flu shot given ; advanced directive reviewed, he has at home (I77.810) Dilated aortic root (HRC) - this was very mild, no further follow up at this point Plan: consider recheck down the road (I10) Essential hypertension (HRC) - controlled Plan: Basic Metabolic Panel The current medical regimen is effective; continue present plan and medications. (E53.8) Vitamin B12 deficiency (HRC) - had shots for a few months, but never took orals Plan: Vitamin B12 Only Recheck baseline, shots if low, otherwise go right to orals (K21.9) Gastroesophageal reflux disease, esophagitis presence not specified - on high dose PPI, gerdsymptoms controlled Plan: Magnesium The current medical regimen is effective; continue present plan and medications. (K92.0) Hematemesis, presence of nausea not specified - by history doubt significant lesion, will check hb and move on to EGD if low, otherwise observe Plan: CBC W PLT NO DIFF Continue with PPI. Needs to stay on asa given his cerebrovasc dz (R05) Chronic cough - ?all upper airway cough Plan: XR Chest 2 Views Check xray if negative, then will have him see his coach cleaner back, ok to continue mucinex prn Counseling and education provided today includes proper nutrition and health habits, fall prevention, and for those items ordered above. Plan for future preventive services in Patient Instructions. Placido Ott MD 04/20/2019, 3:17 PM TENANCE ADVISOR documented in this encounter Plan of Treatment Not on filedocumented as of this encounter Results XR Chest 2 Views (04/20/2019 4:42 PM MAINTENANCE ADVISOR) Anatomical Region Laterality Modality Chest, Lung Computed Radiography Specimen (Source) Anatomical Collection Method Collection Time Re ceived Time Location / / Volume Laterality 04/20/2019 4:42 PM MAINTENANCE ADVISOR Narrative 04/20/2019 8:54 PM MAINTENANCE ADVISOR EXAM: XR CHEST 2 VIEWS LOCATION: [facility] [...] left clavicle. Placido Ott MD RAD GD Magnesium (04/20/2019 4:31 PM MAINTENANCE ADVISOR) athologist Signature Magnesium 1.9 1.6 - 2.6 04/20/2019 [facility] mg/dL 6:17 PM MAINTENANCE ADVISOR [facility]OSPITAL LAB Specimen Anatomical Collection Method / Collection Time Recei anisa Time (Source) Location / Volume Laterality Blood Venipuncture / 04/20/2019 4:31 04/20/2019 4:31 Unknown PM MAINTENANCE ADVISOR PM MAINTENANCE ADVISOR Placido Ott MD LAB_1 Performing Organization Address City/State/ZIP Code Phon e Number [facility] [address] [place] [address] (ABNORMAL) Basic Metabolic Panel (04/20/2019 4:31 PM MAINTENANCE ADVISOR) athologist Signature Sodium 143 136 - 145 04/20/2019 [facility] AT mmol/L 4:56 PM MAINTENANCE ADVISOR [address] Potassium 4.2 3.5 - 5.1 04/20/2019 [facility] AT mmol/L 4:56 PM MAINTENANCE ADVISOR [address] Chloride 108 98 - 109 04/20/2019 [facility] mmol/L 4:56 PM MAINTENANCE ADVISOR [address] CO2 25 20 - 29 04/20/2019 [facility] AT mmol/L 4:56 PM MAINTENANCE ADVISOR [address] Anion Gap 10 7 - 16 04/20/2019 [facility] AT mmol/L 4:56 PM MAINTENANCE ADVISOR [address] Calcium 9.1 8.4 - 10.4 04/20/2019 [facility] mg/dL 4:56 PM MAINTENANCE ADVISOR [address] BUN 17 7 - 26 04/20/2019 [facility] mg/dL 4:56 PM MAINTENANCE ADVISOR [address] Creatinine 1.15 0.73 - 04/20/2019 [facility] AT 1.18 mg/dL 4:56 PM MAINTENANCE ADVISOR [address] GFR, Estimated 58 (L) >60 04/20/2019 [facility] mL/min/1.7 4:56 PM MAINTENANCE ADVISOR [address] 3m2 GFR, Est If >60 >60 04/20/2019 [facility] AT mL/min/1.7 4:56 PM MAINTENANCE ADVISOR [address] [place] 3m2 Glucose 103 (H) 70 - 100 04/20/2019 [facility] AT mg/dL 4:56 PM MAINTENANCE ADVISOR [address] Comment: The given reference range is fo r the fasting state. Non-fasting reference range for glucose is 70 - 180 mg/dL. Hours Fasting 5 04/20/2019 4:56 PM MAINTENANCE ADVISOR [place] [facility] [address] Specimen Anatomical Collection Method / Collection Time Recei anisa Time (Source) Location / Volume Laterality Blood Venipuncture / 04/20/2019 4:31 04/20/2019 4:31 Unknown PM MAINTENANCE ADVISOR PM MAINTENANCE ADVISOR Narrative [facility] [address] - 04/20/2019 4:5 6 PM MAINTENANCE ADVISOR The National Kidney Disease Education Pr ogram suggests measuring Cystatin C in patients with eGFRcrea of 45 to 59 ml/mi n/1.73^2 who do not have other markers of kidney damage (i.e. elevated urine Album in/Creatinine Ratio or a prior Cystatin C confirming the presence of chronic kidne y disease). Placido Ott MD LAB_1 Performing Organization Address City/[facility]/ZIP [place] Phon e Number [facility] [address] [place], [place] [address] [facility] [address] [place], [place] [address] [phone] Vitamin B12 Only (04/20/2019 4:31 PM MAINTENANCE ADVISOR) P athologist Signature Vitamin B12 [phone] 04/20/2019 [facility] pg/mL 10:09 PM MAINTENANCE ADVISOR [facility]AL LAB Specimen Anatomical Collection Method / Collection Time Recei anisa Time (Source) Location / Volume Laterality Blood Venipuncture / 04/20/2019 4:31 04/20/2019 4:31 Unknown PM MAINTENANCE ADVISOR PM MAINTENANCE ADVISOR Placido Ott MD LAB_1 Performing Organization Address City/[facility] Phon e Number [facility] [address] [address] documented in this encounter Visit Diagnoses Diagnosis Encounter for Medicare annual wellness e xam - Primary Dilated aortic root (HRC) Aortic ectasia, unspecified site Essential hypertension (HRC) Unspecified essential hypertension Vitamin B12 deficiency (HRC) Other B-complex deficiencies Gastroesophageal reflux disease, esophag itis presence not specified Hematemesis, presence of nausea not spec ified Chronic cough Cough Chronic cough Cough documented in this encounter Care Teams Hogshead Salvage Relationship Specialty Start Date End Date Placido Ott MD PCP - General Internal Medicine 10/26/17 10/17/21 [address] [place] [address] documented as of this encounter
--- OUTSIDE RECORDS SUMMARY | 2022-02-24 12:19 | XMS_ITS | Encounter Summary ---
:1935 Author Organization [facility] Address [address], [place] [address] Care Team Providers Name Role Phone Shelly Ott MD Primary Care Provider Reason for Visit Reason Comments Refill omeprazole (PRILOSEC) 20 MG capsule [Pharmacy Med Name: OMEPRAZOLE 20MG CAPS[place]ES] Encounter Details Date Type Department Care Team Description 05/14/2020 Refill [facility] Shelly Ott Re fill (omeprazole [place] Matthew Spence MD (PRILOSEC) 20 MG Medicine [address] capsule [Pharmacy Med [address] [place] Name: OMEPRAZOLE 20MG [place] [address] [place], [place] CAPSULES]) [phone] [id number] Social History Tobacco Use Types Packs/Day Years [...] documented as of this encounter Nursing Notes Jimena Newman - 05/14/2020 12:31 PM CST Medication Refill - Overdue Visit Called patient, was: Successful in reaching patient Patient is due for: Office Visit [Back Hoe Operator: We recently received a refill request for one of your medications. In order to ensure your medication is safe and effective, your clinician needs to see you at least yearly for an office visit. May I help you schedule that office visit?] Patient scheduled appointment on: 05/21 Do you have enough medication to last until your appointment? Yes [Back Hoe Operator: Sounds great! Your clinician will address this medication request with you at your next visit.] Jimena Newman Remove pended medication and Sign Visit or if unable: Please route to: Refill tooler Adelaide Guevara RN - 05/14/2020 10:30 AM CST Further Assistance Needed on Refill from [employer] Please call patient to schedule a visit and document using .AMITA Last qualifying visit: 04/20/2019 (with SHELLY OTT) Access Team/Clinic Assist: After attempting to schedule patient: Close encounter. Refill has already been processed. Medication(s) approved by RN per Refill Protocol/Standing Order Adelaide Rehman RN 05/14/2020, 10:30 AM UTER ASSISTANT Kenia, Diego Surescripts Prov Query - 05/14/2020 4:01 AM CST omeprazole (PRILOSEC) 20 MG capsule [Pharmacy Med Name: OMEPRAZOLE 20MG CAPSULES] Miscellaneous - 12 Month Visit -> Refill x 1 month (courtesy refill. overdue for an office visit) Last qualifying visit: 04/20/2019 (with SHELLY OTT) (A more recent visit (in Internal Medicine with NOREEN ASHER) was found) Next scheduled visit: None Last ordered by SHELLY OTT: 11/17/2019 (179 days ago) QTY: 180, Refills: 1, Sig: take 1 capsule by mouth twice daily 1 hour before a meal (unchanged) Powered by [employer], Reference: [id number], 05/14/2020 4:01:19 AM Shlomo DURAN: PETER REFILL EULOGIO ([id number]) UTER ASSISTANT documented in this encounter Plan of Treatment Not on filedocumented as of this encounter Visit Diagnoses Not on filedocumented in this encounter Care Teams Yard Assistant Relationship Specialty Start Date End Date Shelly Ott MD PCP - General Internal Medicine 10/26/17 10/17/21 [address] [place] [address] documented as of this encounter
--- OUTSIDE RECORDS SUMMARY | 2022-02-24 12:19 | XMS_ITS | Encounter Summary ---
:1935 Author Organization [facility] Address [address] [address] Care Team Providers Name Role Phone Placido Ott MD Primary Care Provider Reason for Visit Reason Onset Date Comments ARM PAIN Video Visit 10/26/2019 Encounter Details Date Type Department Care Team Description 10/26/2019 Telemedicine [facility] Gabbi Mendez, Left upper arm pain (Primary Dx); Beatriz MURRAY Arm bruise, left, initial encounter Non-Respiratory IM [address] [place] [address] BERTHA MICHAEL [phone] [id number] Social History Tobacco Use Types Packs/Day Years [...] documented as of this encounter Progress Notes Gabbi Mendez MD - 10/26/2019 4:30 PM CDT Chief Complaint Patient presents with ??? ARM PAIN ??? Video Visit Subjective: Today's visit with Zaid was conducted as a scheduled video visit for arm pain. Yesterday he came in from outside, sat down in chair and shortly thereafter realized his left arm started aching. The painwas just above the elbow on the back of it (dorsal arm). It began suddenly and was very intense pain. He could hardly lift a glass of water with his left upper extremity, had to use his other hand. Thepain radiated somewhat when he tried to move his arm (he's not able to be more specific about how/ where the pain radiated at that time). The intense pain lasted 10-15 minutes. After getting up to walkto bathroom he realized that the pain had lessened, just was left with a residual pain. He did nothave any trauma. Nurse line suggested he go to emergency room if his symptoms worsened. He did not want to risk COVID exposure, so made an appointment. Last night his noticed kind of a bruise on his arm. He's not sure if the bruise is still there. He says there is just a tiny bit of residual paintoday. says there is a lump where the bruise is. says it has kind of spread (the bruising). Noted bruising on the back of his arm also today, did not see that yesterday. No lump on the back of the arm, but there is puffiness. The pain was in the back of his arm, not in the front and not associated with that bruise in distal left volar arm. HE has never had anything similar prior. He did help carry groceries in yesterday, but that's not unusual. He was holding onto two phones yesterday, on hold, probably was left hand he used mostlly. The phone interaction lasted a couple hours total. He had it on speaker, so wasn't holding it up to his ear, sometimes holding it out, sometimes setting it down. Had hamstring tendonitis from Levaquin in the fall of 2018. Has not been on any antibiotics recently and Levaquin is noted on his allergy list and he hasn't taken it since then. Objective: The video and audio quality were suboptimal during this visit, cutting out and freezing at times. There were no vitals taken for this visit. Elderly male in no acute distress, appears younger than stated age. One purple bruise just superior to left antecubital fossa with questionable swelling/small mass. With palpating the area it looks less like a discrete mass. Posteromedial left elbow (near medial epicondyle) there is bruising, appears to be at least three ecchymoses with some variety in color. Slight swelling in that area. Pain after holding his left arm abducted at 90 degrees for a couple minutes. Normal range of motion of left upper extremity. Assessment/Plan: (M79.622) Left upper arm pain (primary encounter diagnosis) (S40.022A) Arm bruise, left, initial encounter I let the patient know that it was difficult for me to say exactly what caused the pain and bruising. No trauma, he was at rest when the pain developed, the pain was intense briefly but than mostly resolved with just slight residual pain. I told him it reminded me a ruptured muscle tendon (but not biceps tendon because wrong location), but I wasn't really clear there was a mass (like a retracted muscle body). I told him I felt there were three choices: 1) Have him come in for an in-person exam for abetter look at his arm and to be able to palpate his arm, 2) order an ultrasound of his arm to get abetter look at tendons, veins to find a more exact diagnosis, or 3) observe, as it likely will resolve completely on its own and is much improved compared to yesterday. After discussion, he decided to wait and observe. If this worsens, such as becoming intensely painful again, getting red or more swollen, bruising developing other places, fever he should be seen in clinic right away. I did reassure him this did NOT look like a blood clot in his arm, and also let him know blood clots are pretty rare in the arm except if they are associated with some type of device like an IV in the arm for several days. He expressed understanding. Clinician located at clinic. Patient located at home Billing based on: Time 40 minutes spent on the phone with the patient, with greater than 50% in counseling and coordination of care (see discussion above). Gabbi Mendez MD documented in this encounter Plan of Treatment Not on filedocumented as of this encounter Visit Diagnoses Diagnosis Left upper arm pain - Primary Pain in limb Arm bruise, left, initial encounter documented in this encounter Care Teams Instrument Lens Inspector Relationship Specialty Start Date End Date Placido Ott MD PCP - General Internal Medicine 10/26/17 10/17/21 [address] [place] [address] documented as of this encounter
--- OUTSIDE RECORDS SUMMARY | 2022-02-24 12:19 | XMS_ITS | Encounter Summary ---
:1935 Author Organization [facility] Address [address], [place] [address] Care Team Providers Name Role Phone Placido Ott MD Primary Care Provider Encounter Details Date Type Department Care Team Description 02/28/2019 Refill Order [facility] Placido Ott, [facility] anjelica MURRAY [address] [place] [address] [address] [phone] [place], [place] [address] (Wo rk) Social History [...] documented as of this encounter Progress Notes Lorene Manley CMA - 03/07/2019 2:23 PM CDT Patient has an upcoming appointment scheduled. Lorene Manley CMA 03/07/2019, 2:23 PM documented in this encounter Nursing Notes Interface, Out Creative Citizen Prov Query - 02/28/2019 9:47 AM CDT ORDER THE FOLLOWING: - COMPLETE BLOOD COUNT: Previously ordered on 12/06/2018 and will on 05/29/2019 SCHEDULE THE FOLLOWING: - COMPLETE BLOOD COUNT BY: Now (Due as of 09/10/2018 for multiple medications including allopurinol (ZYLOPRIM) 100 MG tablet) - LAST QUALIFYING VISIT IN FAMILY PRACTICE WITH LUIS A HORN C: 10/11/2018 - NEXT SCHEDULED VISIT: None - NEXT LAB APPOINTMENT: None Powered by [employer], Reference: [id number], 02/28/2019 9:47:12 AM CDT, Pool: PETER JEFFERY RN ([id number]) documented in this encounter Plan of Treatment Not on filedocumented as of this encounter Visit Diagnoses Diagnosis Encounter for long-term (current) use of medications - Primary Encounter for long-term (current) use of other medications documented in this encounter Care Teams Stone Unloader Relationship Specialty Start Date End Date Placido Ott MD PCP - General Internal Medicine 10/26/17 10/17/21 [address] [place] [address] documented as of this encounter
--- OUTSIDE RECORDS SUMMARY | 2022-02-24 12:19 | XMS_ITS | Encounter Summary ---
:1935 Author Organization [facility] Address [address], [place] [address] Care Team Providers Name Role Phone Placido Ott MD Primary Care Provider Reason for Visit Reason Comments Lab Orders Needed Urine Analysis Encounter Details Date Type Department Care Team Description 08/05/2019 Telephone [facility] Waqas Rodney Orders Needed Beatriz Griffith MD (Urine Analysis) [facility] [address] [place] [address] [place], [place] [phone] Social History Tobacco Use Types Packs/Day Years [...] documented as of this encounter Nursing Notes Yesenia Gómez - 08/05/2019 3:20 PM CST Spoke to patient and he will either call back to schedule appointment in lab or swing by the lab. Yesenia Gómez 08/05/2019, 3:21 PM ONAL INVESTIGATIVE PRODUCER Abi Lagunas RN - 08/05/2019 2:45 PM CST Please contact patient and schedule him for a lab only appt for UA. UA order has been placed. Abi Lagunas RN 08/05/2019, 2:45 PM ONAL INVESTIGATIVE PRODUCER Yesenia Gómez - 08/05/2019 2:38 PM CST Orders - Laboratory [Room Service Server/Appt Center: If this call is after 3 p.m., communicate to patient: If we are not able to get back to you by the end of the day and your symptoms worsen please contact the Careline at [phone] OR at .] What lab order is being requested? Urine analysis Why is this order being requested? Patient is leaving on , August 11 for vacation and wants to make sure his infection is gone. Can a urine test be ordered so he can ensure he is clear before leaving? Have you been seen recently for this concern? No [Room Service Server/Appt Center:If patient was seen at an outside location, please obtain records] Is it okay to leave a detailed message on your voicemail? Yes [Room Service Server/Appt Center: Instruct patient to check with insurance company for coverage] Is there anything else I can help you with today? Yesenia Gómez Please route to: Care Team Pool ONAL INVESTIGATIVE PRODUCER documented in this encounter Plan of Treatment Not on filedocumented as of this encounter Results (ABNORMAL) UA Micro If (08/06/2019 10:48 AM NATIONAL INVESTIGATIVE PRODUCER) [facility] Method Time Signature Urine Color Yellow Straw-Yellow 08/06/2019 [facility] 11:18 AM NATIONAL INVESTIGATIVE PRODUCER [address] Urine Clarity Clear Clear 08/06/2019 [facility] 11:18 AM NATIONAL INVESTIGATIVE PRODUCER [address] Specific <=1.005 (A) 1.005 - 08/06/2019 [facility] [place], 1.030 11:18 AM NATIONAL INVESTIGATIVE PRODUCER [address] Urine PH Urine 6.5 5.0 - 8.0 08/06/2019 [facility] 11:18 AM NATIONAL INVESTIGATIVE PRODUCER [address] Protein, Negative Neg/Trace 08/06/2019 [facility] Urine Qual 11:18 AM NATIONAL INVESTIGATIVE PRODUCER [address] (mg/dL) Glucose Urine Negative Negative 08/06/2019 [facility] Qual (mg/dL) 11:18 AM NATIONAL INVESTIGATIVE PRODUCER [address] Ketones, Negative Negative 08/06/2019 [facility] Urine (mg/dL) 11:18 AM NATIONAL INVESTIGATIVE PRODUCER [address] Urobilinogen, 0.2 <2.0 08/06/2019 [facility] Urine (EU/dL) 11:18 AM NATIONAL INVESTIGATIVE PRODUCER [address] Bilirubin Negative Negative 08/06/2019 [facility] Urine 11:18 AM NATIONAL INVESTIGATIVE PRODUCER [address] Blood, Urine Negative Neg/Trace 08/06/2019 [facility] 11:18 AM NATIONAL INVESTIGATIVE PRODUCER [address] Nitrite Urine Negative Negative 08/06/2019 [facility] 11:18 AM NATIONAL INVESTIGATIVE PRODUCER [address] Leukocyte Negative Negative 08/06/2019 [facility] Est. 11:18 AM NATIONAL INVESTIGATIVE PRODUCER [address] Urine Source Clean Catch 08/06/2019 [facility] 11:18 AM NATIONAL INVESTIGATIVE PRODUCER [address] Specimen Anatomical Collection Method Collection Time Receive d Time (Source) Location / / Volume Laterality Urine URINE SPECIMEN Non-blood 08/06/2019 10:48 0 COLLECTION, CLEAN Collection / AM NATIONAL INVESTIGATIVE PRODUCER 11:[address] CATCH / Unknown Unknown Waqas Rodney MD LAB_1 Performing Organization Address City/State/ZIP Code Phon e Number [facility] [address] [place], [place] [address] [facility] [address] [place], [place] [address] [place] [address] documented in this encounter Visit Diagnoses Diagnosis Hematuria, unspecified type - Primary documented in this encounter Care Teams Printer Apprentice Relationship Specialty Start Date End Date Placido Ott MD PCP - General Internal Medicine 10/26/17 10/17/21 [address] [place] [address] documented as of this encounter
--- OUTSIDE RECORDS SUMMARY | 2022-02-24 12:19 | XMS_ITS | Encounter Summary ---
:1935 Author Organization [facility] Address [address], [place] [address] Care Team Providers Name Role Phone Shelly Ott MD Primary Care Provider Reason for Visit Reason Comments Refill pravastatin (PRAVACHOL) 40 M G tablet [Pharmacy Med Name: PRAVASTATIN 40MG TABLETS] Encounter Details Date Type Department Care Team Description 10/14/2019 Refill [facility] Shelly Ott Re fill (pravastatin Kingfisheres Spence MD (PRAVACHOL) 40 MG Medicine [address] tablet [Pharmacy Med [address] [place] Name: PRAVASTATIN 40MG [place] [address] [place], [place] TABLETS]) [phone] [id number] Social History Tobacco Use Types Packs/Day Years [...] encounter Nursing Notes Shauna Dawson RN - 10/14/2019 1:10 PM CDT Medication(s) approved by RN per Refill Protocol/Standing Order Shauna Dawson RN 10/14/2019, 1:10 PM Interface, Out Surescripts Prov Query - 10/14/2019 1:06 PM CDT pravastatin (PRAVACHOL) 40 MG tablet [Pharmacy Med Name: PRAVASTATIN 40MG TABLETS] Miscellaneous - 12 Month Visit -> Refill x 9 months, qty: 90, refills: 2 (until due for an office visit) Last qualifying visit: 04/20/2019 (with SHELLY OTT) Next scheduled visit: None Last ordered by SHELLY OTT: 01/13/2019 (274 days ago) QTY: 90, Refills: 2, Sig: take 1 tablet by mouth every night at bedtime (unchanged) Powered by [employer], Reference: [id number], 10/14/2019 1:06:21 PM CDT, Pool: PETER JEFFERY RN ([id number]) documented in this encounter Plan of Treatment Not on filedocumented as of this encounter Visit Diagnoses Diagnosis Hyperlipidemia, unspecified hyperlipidem ia type (HRC) documented in this encounter Care Teams Telehealth Nurse Relationship Specialty Start Date End Date Shelly Ott MD PCP - General Internal Medicine 10/26/17 10/17/21 [address] [place] [address] documented as of this encounter
--- OUTSIDE RECORDS SUMMARY | 2022-02-24 12:19 | XMS_ITS | Encounter Summary ---
:1935 Author Organization [facility] Address [address], [place] [address] Care Team Providers Name Role Phone Placido Ott MD Primary Care Provider Reason for Visit Reason Comments QUESTIONS, GENERAL 4:30 Video appt Encounter Details Date Type Department Care Team Description 10/26/2019 Telephone [facility] Gabbi Mendez MD QUESTIONS, GENERAL [facility] [address] (4:3 0 Video appt) Medicine [address] [place] [place] [id number] [phone] Social History Tobacco Use Types Packs/Day Years [...] documented as of this encounter Nursing Notes Gabbi Mendez MD - 10/26/2019 6:21 PM CDT He did. I had problems with [employer]. It would only ring a few times and then stop trying to connect and tell me there was no answer. It did ring a full number of times the third time I called him, but there was no answer. Then, his returned the call to the number I called from and I was able to complete the visit. Gabbi Mendez MD 10/26/2019, 6:22 PM Cammy Ordaz - 10/26/2019 5:02 PM CDT Patient had a 4:[address] Mendez. Patient called around 4:[address] Mendez was still going to call him. Tried calling IM nurse and lost the call. Checking to make sure patient did receive the video call. Cammy Ordaz 10/26/2019, 5:03 PM documented in this encounter Plan of Treatment Not on filedocumented as of this encounter Visit Diagnoses Not on filedocumented in this encounter Care Teams Clothing And Textiles Teacher Relationship Specialty Start Date End Date Placido Ott MD PCP - General Internal Medicine 10/26/17 10/17/21 [address] [facility] [place] [address] documented as of this encounter
--- OUTSIDE RECORDS SUMMARY | 2022-02-24 12:19 | XMS_ITS | Encounter Summary ---
:1935 Author Organization [facility] Address [address], [place] [address] Care Team Providers Name Role Phone Shelly Ott MD Primary Care Provider Reason for Visit Reason Comments Refill omeprazole (PRILOSEC) 20 MG capsule [Pharmacy Med Name: OMEPRAZOLE 20MG [place]ES] Encounter Details Date Type Department Care Team Description 05/28/2019 Refill [facility] Shelly Ott Re fill (omeprazole Ideal Family Pr anjelica Spence MD (PRILOSEC) 20 MG [address] capsule [[place] [address] [address] Name: OMEPRAZOLE 20MG [phone] [place], [place] CAPSULES]) [id number] Social History Tobacco Use Types Packs/Day Years [...] encounter Nursing Notes Adelaide Rehman RN - 05/29/2019 11:02 AM CST Medication(s) approved by RN per Refill Protocol/Standing Order. Adelaide Rehman RN 05/29/2019, 11:02 AM RAFT COMMUNICATOR Interface, Out Surescripts Prov Query - 05/28/2019 11:37 AM CST omeprazole (PRILOSEC) 20 MG capsule [Pharmacy Med Name: OMEPRAZOLE 20MG CAPS[place]ES] Miscellaneous - 12 Month Visit -> Refill x 12 months, qty: 180, refills: 3 (until due for an office visit) Last qualifying visit: 04/20/2019 (with SHELLY OTT) Next scheduled visit: None Last ordered by SHELLY OTT: 02/28/2019 (89 days ago) QTY: 180, Refills: 0, Sig: take 1 capsule by mouth twice daily 1 hour before a meal (unchanged) Powered by [employer], Reference: [id number], 05/28/2019 11:37:42 AM AIRCRAFT COMMUNICATOR, Pool: PETER JEFFERY RN ([id number]) RAFT COMMUNICATOR documented in this encounter Plan of Treatment Not on filedocumented as of this encounter Visit Diagnoses Not on filedocumented in this encounter Care Teams Green Building Energy Engineer Relationship Specialty Start Date End Date Shelly Ott MD PCP - General Internal Medicine 10/26/17 10/17/21 [address] [place] [address] documented as of this encounter
--- OUTSIDE RECORDS SUMMARY | 2022-02-24 12:19 | XMS_ITS | Encounter Summary ---
:1935 Author Organization [facility] Address [address], [place] [address] Care Team Providers Name Role Phone Placido Ott MD Primary Care Provider Reason for Visit Reason Comments Refill cefadroxil (DURICEF) 500 MG capsule [Pharmacy Med Name: CEFADROXIL 500MG [place]] Encounter Details Date Type Department Care Team Description 11/30/2019 Refill [facility] Waqas Rodney (cefadroxil [facility] MD Gladis (DURICEF) 500 MG Urology [address] capsule [Pharmacy Med [address] [place] [address] Name: CEFADROXIL 500MG [place] [address] [place], [place] CAPSULES]) [phone] Social History Tobacco Use Types Packs/Day Years [...] documented as of this encounter Nursing Notes Interface, Out ANF Technology Query - 11/30/2019 12:13 PM CDT cefadroxil (DURICEF) 500 MG capsule [Pharmacy Med Name: CEFADROXIL 500MG [place]] Unassigned -> The most recent order on 07/21/2019. -> Medication cannot be delegated. Last qualifying visit: 07/07/2019 (with WAQAS RODNEY) Next scheduled visit: None Last ordered by WAQAS RODNEY: 07/07/2019 (146 days ago) QTY: 28, Refills: 1, Sig: take 1 capsule by mouth two times a day for 14 days. (changed but equivalent) Powered by [employer], Reference: [id number], 11/30/2019 12:13:27 PM CDT, Pool: [facility] REFILL ([id number]) documented in this encounter Plan of Treatment Not on filedocumented as of this encounter Visit Diagnoses Not on filedocumented in this encounter Care Teams [employer] Guidance Counselor Relationship Specialty Start Date End Date Placido Ott MD PCP - General Internal Medicine 10/26/17 10/17/21 [address] [facility] [place] [address] documented as of this encounter
--- OUTSIDE RECORDS SUMMARY | 2022-02-24 12:19 | XMS_ITS | Encounter Summary ---
:1935 Author Organization [facility] Address [address] [address] Care Team Providers Name Role Phone Placido Ott MD Primary Care Provider Encounter Details Date Type Department Care Team Description 08/06/2019 Lab Visit [facility] Hematu rich, unspecified Beat[facility] Laborator y type [address] [place] [address] Social History Tobacco Use Types Packs/Day [...] encounter Progress Notes Waqas Rodney MD - 08/06/2019 10:45 AM CST Urine clear please inform IRER CONTROLLER TESTER Deepika Arellano RN - 08/06/2019 10:45 AM CST Corie has been notified. Deepika Arellano RN 08/08/2019, 1:17 PM IRER CONTROLLER TESTER documented in this encounter Plan of Treatment Not on filedocumented as of this encounter Procedures Procedure Name Priority Date/Time Associated Diagnosis Comme nts UA MICRO IF Routine 08/06/2019 10:48 AM Hematuria, unspecifie d Results for this REPAIRER CONTROLLER TESTER type procedure are i n the results section. documented in this encounter Results (ABNORMAL) UA Micro If (08/06/2019 10:48 AM REPAIRER CONTROLLER TESTER) [facility] gist Method Time Signature Urine Color Yellow Straw-Yellow 08/06/2019 [facility] 11:18 AM REPAIRER CONTROLLER TESTER [address] Urine Clarity Clear Clear 08/06/2019 [facility] 11:18 AM REPAIRER CONTROLLER TESTER [address] Specific <=1.005 (A) 1.005 - 08/06/2019 [facility] [place], 1.030 11:18 AM REPAIRER CONTROLLER TESTER [address] Urine PH Urine 6.5 5.0 - 8.0 08/06/2019 [facility] 11:18 AM REPAIRER CONTROLLER TESTER [address] Protein, Negative Neg/Trace 08/06/2019 [facility] Urine Qual 11:18 AM REPAIRER CONTROLLER TESTER [address] (mg/dL) Glucose Urine Negative Negative 08/06/2019 [facility] Qual (mg/dL) 11:18 AM REPAIRER CONTROLLER TESTER [address] Ketones, Negative Negative 08/06/2019 [facility] Urine (mg/dL) 11:18 AM REPAIRER CONTROLLER TESTER [address] Urobilinogen, 0.2 <2.0 08/06/2019 [facility] Urine (EU/dL) 11:18 AM REPAIRER CONTROLLER TESTER [address] Bilirubin Negative Negative 08/06/2019 [facility] Urine 11:18 AM REPAIRER CONTROLLER TESTER [address] Blood, Urine Negative Neg/Trace 08/06/2019 [facility] 11:18 AM REPAIRER CONTROLLER TESTER [address] Nitrite Urine Negative Negative 08/06/2019 [facility] 11:18 AM REPAIRER CONTROLLER TESTER [address] Leukocyte Negative Negative 08/06/2019 [facility] Est. 11:18 AM REPAIRER CONTROLLER TESTER [address] Urine Source Clean Catch 08/06/2019 [facility] 11:18 AM REPAIRER CONTROLLER TESTER [address] Specimen Anatomical Collection Method Collection Time Receive d Time (Source) Location / / Volume Laterality Urine URINE SPECIMEN Non-blood 08/06/2019 10:48 0 COLLECTION, CLEAN Collection / AM REPAIRER CONTROLLER TESTER 11:[address] CATCH / Unknown Unknown Waqas Rodney MD LAB_1 Performing Organization Address City/State/ZIP Code Phon e Number [facility] [address] [place], [place] [address] [facility] [address] [place], [place] [address] [phone] documented in this encounter Visit Diagnoses Diagnosis Hematuria, unspecified type documented in this encounter Care Teams Home Care Provider Relationship Specialty Start Date End Date Placido Ott MD PCP - General Internal Medicine 10/26/17 10/17/21 [address] [place] [address] documented as of this encounter
--- OUTSIDE RECORDS SUMMARY | 2022-02-24 12:19 | XMS_ITS | Encounter Summary ---
:1935 Author Organization [facility] Address [address] [place] [address] Care Team Providers Name Role Phone Placido Ott MD Primary Care Provider Reason for Visit Reason Comments ARM PAIN Encounter Details Date Type Department Care Team Description 10/25/2019 Nurse Triage Careline Unknown, Physician ARM PAIN [address] [place], [place] [address] [place] [address] [phone] (Wo rk) Social History Tobacco Use Types [...] documented as of this encounter Nursing Notes Ya Ervin RN - 10/25/2019 6:44 PM CDT Reason for Disposition ??? Patient sounds very sick or weak to the triager Protocols used: ARM [id number] Call 911 if increased sx Ya Ervin RN - 10/25/2019 6:36 PM CDT Verified patient identity: Yes name, and address Situation/Background (brief explanation of current symptoms/situation): Pt has left arm pain just above his elbow, severe and persistant,started 20 minutes , pain is better now No injury No redness or swelling No chest pain, no sob Pt was holding two phones in hands for 2 hours waiting for a call Do you have any of these symptoms (fever greater than 100, cough, shortness of breath, sore throat, new loss of smell, or new loss of taste)? No Reviewed with patient pertinent medical history(as it related to the call): Yes reviewed Reviewed with patient pertinent medications (as they relate to call): Yes reviewed Reviewed with patient pertinent allergies (as they relate to call). Janelle Mckenzie - 10/25/2019 6:35 PM CDT Verified patient identity using three identifiers: Yes Caller's relationship to patient: Spouse/Significant Other At which care system or clinic is the patient normally seen? [facility] Symptoms Describe the reason for call/symptoms (include location and duration if applicable): pt has left armpain that developed today. Plan:Caller transferred directly to CareLine nurse. documented in this encounter Plan of Treatment Not on filedocumented as of this encounter Visit Diagnoses Not on filedocumented in this encounter Care Teams Tape Cutting Machine Operator Relationship Specialty Start Date End Date Placido Ott MD PCP - General Internal Medicine 10/26/17 10/17/21 [address] [facility] [id number] documented as of this encounter
--- OUTSIDE RECORDS SUMMARY | 2022-02-24 12:19 | XMS_ITS | Encounter Summary ---
:1935 Author Organization [facility] Address [address], [place] [address] Care Team Providers Name Role Phone Placido Ott MD Primary Care Provider Reason for Visit Reason Comments EARACHE Encounter Details Date Type Department Care Team Description 01/23/2020 Office Visit [facility] Acute otitis externa of left ear, unspecified type (Primary Dx); [facility] re Impacted cerumen of left ear [address] [place] [place] [address] Social History Tobacco Use Types Packs/Day [...] Sign Reading Time Taken Comments Blood Pressure 157/82 01/23/2020 7:42 PM CDT Pulse 67 01/23/2020 7:42 PM CDT Temperature 36.5 ??C (97.7 ??F) 01/23/2020 7:42 PM CDT Respiratory Rate 14 01/23/2020 7:42 PM CDT Oxygen Saturation - - Inhaled Oxygen Concentration - - Weight - - Height - - Body Mass Index - - documented in this encounter Progress Notes Marquita Camara PA-C - 01/23/2020 7:30 PM CDT Historical: Chief Complaint Patient presents with ??? EARACHE Ear Pain How long have you had these symptoms? 3 day(s) Which ear(s) do you have symptoms in? left ear What does your pain feel like: sharp How severe is your pain (1-10): 8 Have you had a fever? No Is there any fluid draining from the ear(s)? No Are you experiencing any other symptoms? none Have you had an ear infection in the past? No Are there any treatments you have tried? No Zaid Rutledge is a 84 y.o. old male who presents to the urgent care for evaluation of the above symptoms. Has not been swimming. Wears hearing aids. Otherwise feeling well. I have personally reviewed the patient's allergies, medications, past medical history, rooming notesand problem list in detail and updated the patient record as necessary. Comprehensive review of symptoms negative unless noted in HPI. OBSERVED: BP (!) 157/82 (BP Location: Left Arm, BP Cuff Size: Regular) Pulse 67 Temp 97.7 ??F (36.5 ??C) (Oral) Resp 14 Physical Exam Constitutional: He is well-developed, well-nourished, and in no distress. HENT: Head: Normocephalic and atraumatic. Right Ear: Tympanic membrane, external ear and ear canal normal. Left Ear: There is tenderness (mild, with some erythema of EAC). No swelling. Tympanic membrane is not erythematous and not bulging. No middle ear effusion. Left EAC with impacted cerumen. After PREASSEMBLER AND INSPECTOR lavaged, only a small portion of cerumen is able to be cleared. Patient not tolerating more lavage due to pain. Cardiovascular: Normal rate. Pulmonary/Chest: Effort normal. Neurological: He is alert. Gait normal. Skin: Skin is warm and dry. Vitals reviewed. ASSESSMENT / PLAN ICD-10-CM 1. Acute otitis externa of left ear, unspecified type H60.502 neomycin-polymyxin B-hydrocortisone (CORTISPORIN) 3.5-88055-5 ear drop solution 2. Impacted cerumen of left ear H61.22 Ear lavage, impacted cerumen LEFT Cortisporin drops as prescribed. Once course completed, use debrox to help soften residual wax, and may return for removal in a couple weeks. Detailed symptomatic cares and instructions discussed They were instructed to return with any new, persistent or worsening symptoms. They express understanding and are in agreement with the plan. Marquita Sandoval PA-C This note created using speech-recognition software and may contain unintended word substitutions. documented in this encounter Plan of Treatment Not on filedocumented as of this encounter Visit Diagnoses Diagnosis Acute otitis externa of left ear, unspec ified type - Primary Impacted cerumen of left ear Impacted cerumen documented in this encounter Care Teams Catalog Library Assistant Relationship Specialty Start Date End Date Placido Ott MD PCP - General Internal Medicine 10/26/17 10/17/21 [address] [place] [address] documented as of this encounter
--- OUTSIDE RECORDS SUMMARY | 2022-02-24 12:19 | XMS_ITS | Encounter Summary ---
:1935 Author Organization Pending sale to [facility] Address [address], [place] [address] Care Team Providers Name Role Phone Placido Ott MD Primary Care Provider Reason for Visit Reason Comments SCROTAL PAIN Encounter Details Date Type Department Care Team Description 07/07/2019 Office Visit [facility] Waqas Rodney Or [place] (Primary [place] Edson Griffith MD Dx) [facility] [address] [place] [address] [place], [place] [phone] [id number] Social History Tobacco Use Types Packs/Day Years [...] Sign Reading Time Taken Comments Blood Pressure 133/79 07/07/2019 12:15 PM AIR CONDITIONING INSULATION INSTALLER Pulse 76 07/07/2019 12:15 PM AIR CONDITIONING INSULATION INSTALLER Temperature - - Respiratory Rate - - Oxygen Saturation - - Inhaled Oxygen Concentration - - Weight - - Height - - Body Mass Index - - documented in this encounter Patient Instructions Patient InstructionsStWaqas haynes MD - 07/07/2019 12:00 PM CST Date of Service: 07/07/2019 ?? A: Mild right orchalgia, no swelling or hernia ?? Prostate cancer, low risk, on surveillance. ?? 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 P: culture urine today and call if shows UTI ?? Stay off antibiotics and monitor ?? Will send with written rx for duricef 500 mg BID ?? Avoid levaquin from tendon issues ?? PSA today keep it under 10 is goal. CONDITIONING INSULATION INSTALLER documented in this encounter Progress Notes Waqas Rodney MD - 07/07/2019 12:00 PM CST Date of Service: 07/07/2019 ?? A: Mild right orchalgia, no swelling or hernia ?? Prostate cancer, low risk, on surveillance. ?? 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 P: culture urine today and call if shows UTI ?? Stay off antibiotics and monitor ?? Will send with written rx for duricef 500 mg BID ?? Avoid levaquin from tendon issues ?? PSA today keep it under 10 is goal. ?? S: mild intermittent orchalgia Going to [place] soon and wants to get checked. No new urologic medications have been prescribed. No fever, significant weight loss or rash. No change in sexual function. No rashes of the ext genitalia. No intervention by other caregiver for problem. No complaints of urinary leakage, hematuria, UTI's. O: Vitals: 07/07/19 1215 BP: 133/79 Pulse: 76 Alert and oriented and good spirits. No rashes on the face or neck. No gynecomastia, no flank masses or tenderness. Abdomen and flank soft, no rebound or masses. No inguinal masses or hernia. Testis benign, descended. Urethral meatus normal, no peyronies plaques, skin lesions. Anal tone normal, no rectal masses, prostate benign and symmetric. Tests: Not done (Please note this document was prepared with voice recognition software likely resulting in unintentional word substitutions. Please contact me if clarification is needed.) CONDITIONING INSULATION INSTALLER Waqas Rodney MD - 07/07/2019 12:00 PM CST If not on antibioitics needs to start duricef 500BID x 10 days now CONDITIONING INSULATION INSTALLER Abi Lagunas RN - 07/07/2019 12:00 PM CST Left detailed message for patient informing him of message below from Dr. Rodney. Abi Lagunas RN 07/08/2019, 8:30 AM CONDITIONING INSULATION INSTALLER Waqas Rodney MD - 07/07/2019 12:00 PM CST Duricef will cover this CONDITIONING INSULATION INSTALLER documented in this encounter Plan of Treatment Not on filedocumented as of this encounter Procedures Procedure Name Priority Date/Time Associated Diagnosis Comme nts URINE CULTURE Routine 07/07/2019 12:38 PM Orchalgia Results for this AIR CONDITIONING INSULATION INSTALLER procedure are i n the results section . documented in this encounter Results (ABNORMAL) Prostatic Specific Antigen (F/U) (07/07/2019 12:55 PM AIR CONDITIONING INSULATION INSTALLER) P athologist Signature Prostatic 6.5 (H) 0.0 - 4.0 07/07/2019 [place] Specific ng/mL 2:45 PM AIR CONDITIONING INSULATION INSTALLER [facility]ITAL [facility] Antigen Specimen Anatomical Collection Method / Collection Time Recei anisa Time (Source) Location / Volume Laterality Blood Venipuncture / 07/07/2019 12:55 0 Unknown PM AIR CONDITIONING INSULATION INSTALLER 12:55 PM AIR CONDITIONING INSULATION INSTALLER Narrative [facility] - 07/07/2019 2:45 PM AIR CONDITIONING INSULATION INSTALLER The Carreon PSA Chemiluminescent immunoas say is used. Results obtained with different test methods or kits cannot be used inte rchangeably. Waqas Rodney MD LAB_1 Performing Organization Address City/State/ZIP Code Phon e Number [facility] [address] [place] [address] (ABNORMAL) Urine Culture (07/07/2019 12:38 PM AIR CONDITIONING INSULATION INSTALLER) Component Value Ref Test Method Analysis Performed At [facility] Range Time Signature Urine Growth (A) 07/08/2019 [facility] Culture 10:29 PM HOSPITAL AIR CONDITIONING INSULATION INSTALLER Urine 10,000 - FRIEDA 07/08/2019 [facility] Culture 50,000 CFU/mL SENSITIVITY 10:29 PM HOSPITAL Citrobacter AIR CONDITIONING INSULATION INSTALLER koseri Specimen Anatomical Collection Method Collection Time Receive d Time (Source) Location / / Volume Laterality Urine URINE SPECIMEN Non-blood 07/07/2019 12:38 0 COLLECTION, CLEAN Collection / PM AIR CONDITIONING INSULATION INSTALLER 12:[address] CATCH / Unknown Unknown Organism Antibiotic Method Susceptibility Citrobacter koseri Ampicillin/Sulbactam FRIEDA SENSITIVITY Resistan t Citrobacter koseri Piperacillin/Tazobactam FRIEDA SENSITIVITY <=4 m cg/mL: SUSCEPTIBLE Citrobacter koseri Cefazolin FRIEDA SENSITIVITY <=4 mcg/mL: S USCEPTIBLE Citrobacter koseri Ceftriaxone FRIEDA SENSITIVITY <=1 mcg/mL: S USCEPTIBLE Citrobacter koseri Ciprofloxacin FRIEDA SENSITIVITY <=0.25 mcg/mL : SUSCEPTIBLE Citrobacter koseri Levofloxacin FRIEDA SENSITIVITY <=0.12 mcg/mL : SUSCEPTIBLE Citrobacter koseri Ertapenem FRIEDA SENSITIVITY <=0.5 mcg/mL: SUSCEPTIBLE Citrobacter koseri Meropenem FRIEDA SENSITIVITY <=0.25 mcg/mL : SUSCEPTIBLE Citrobacter koseri Tobramycin FRIEDA SENSITIVITY <=1 mcg/mL: S USCEPTIBLE Citrobacter koseri Trimethoprim/Sulfamethoxa FRIEDA SENSITIVITY <=2 0 mcg/mL: SUSCEPTIBLE zole Citrobacter koseri Nitrofurantoin FRIEDA SENSITIVITY 64 mcg/mL: In termediate Waqas Rodney MD LAB_1 Performing Organization Address City/[facility]/ZIP Code Phon e Number [address] [address] documented in this encounter Visit Diagnoses Diagnosis Orchalgia - Primary Unspecified disorder of male genital org ans documented in this encounter Care Teams Grinder Machine Setter Relationship Specialty Start Date End Date Placido Ott MD PCP - General Internal Medicine 10/26/17 10/17/21 [address] [place] [address] documented as of this encounter
--- OUTSIDE RECORDS SUMMARY | 2022-02-24 12:19 | XMS_ITS | Encounter Summary ---
:1935 Author Organization [facility] Address [address], [place] [address] Care Team Providers Name Role Phone Placido Ott MD Primary Care Provider Encounter Details Date Type Department Care Team Description 05/17/2019 Telephone [facility] Waqas Rodney MD [facility] [address] [place] [address] [address] [place], [place] [id number] [phone] Social History Tobacco Use Types Packs/Day Years [...] encounter Nursing Notes Waqas Rodney MD - 05/17/2019 3:37 PM CST May be developing right orchitis. rec DURICEF 500 BID x 2 weeks Stay away from LEVAQUIN tendoniitis. ELHEAD INSPECTOR documented in this encounter Plan of Treatment Not on filedocumented as of this encounter Visit Diagnoses Not on filedocumented in this encounter Care Teams Customer Greeter Relationship Specialty Start Date End Date Placido Ott MD PCP - General Internal Medicine 10/26/17 10/17/21 [address] [place] [address] documented as of this encounter
--- OUTSIDE RECORDS SUMMARY | 2022-02-24 12:19 | XMS_ITS | Encounter Summary ---
:1935 Author Organization [facility] Address [address] [address] Care Team Providers Name Role Phone Shelly Ott MD Primary Care Provider Reason for Visit Reason Comments Medication Questions Encounter Details Date Type Department Care Team Description 06/14/2020 Telephone [facility] Shelly Ott Id dication Questions Beatriz Spence MD Medicine [address] [place] [address] [facility] [place] [phone] [address] Social History Tobacco Use Types Packs/Day Years [...] encounter Nursing Notes Shauna Dawson RN - 06/14/2020 1:37 PM CST Medication(s) approved by RN per Refill Protocol/Standing Order Shauna Dawson RN 06/14/2020, 1:37 PM RNET SALES CONSULTANT Interface, Out [place] Query - 06/14/2020 1:24 PM CST allopurinol (ZYLOPRIM) 100 MG tablet Miscellaneous - 12 Month Visit -> Refill x 12 months, qty: 90, refills: 3 (until due for an office visit) Last qualifying visit: 05/21/2020 (with SHELLY OTT) Next scheduled visit: None Last ordered by SHELLY OTT: 06/07/2019 (373 days ago) QTY: 90, Refills: 3, Sig: take 1 tablet by mouth every day (changed but equivalent) Powered by [facility], Reference: [id number], 06/14/2020 1:24:41 PM INTERNET SALES CONSULTANTShlomo: PETER JEFFERY RN ([id number]) RNET SALES CONSULTANT Leann Keenan - 06/14/2020 12:52 PM CST Reason for call? Patient states he is due for refills on allopurinol (ZYLOPRIM) 100 MG tablet and omeprazole (PRILOSEC) 20 MG capsule. He states the pharmacy told him that Dr. Ott needs to contact the pharmacy for patient to get the refills. Best time to reach you? any Ok to leave a detailed message? Yes Leann Keenan ....................................06/14/2020 12:52 PM RNET SALES CONSULTANT documented in this encounter Plan of Treatment Not on filedocumented as of this encounter Visit Diagnoses Not on filedocumented in this encounter Care Teams Train Reservation Clerk Relationship Specialty Start Date End Date Shelly Ott MD PCP - General Internal Medicine 10/26/17 10/17/21 [address] [place] [address] documented as of this encounter
--- OUTSIDE RECORDS SUMMARY | 2022-02-24 12:19 | XMS_ITS | Encounter Summary ---
:1935 Author Organization [facility] Address [address], [place] [address] Care Team Providers Name Role Phone Shelly Ott MD Primary Care Provider Reason for Visit Reason Onset Date Comments Refill 11/15/2019 omeprazole (PRILOSEC ) 20 MG capsule Encounter Details Date Type Department Care Team Description 11/15/2019 [facility]ill [facility] Shelly Ott (omeprazole Beatriz Spence MD (PRILOSEC) 20 MG Medicine [address] capsule) [address] [place] [address] [address] [place] [phone] Social History Tobacco Use Types Packs/Day Years [...] encounter Nursing Notes Shauna Dawson RN - 11/17/2019 2:25 PM CDT Pharmacy note: Please send refill for omeprazole 20 mg caps. Called to get transfer from [facility] in [place]. They stated no refills remaining. Will reapprove remaining refills Medication(s) approved by RN per Refill Protocol/Standing Order Shauna Dawson RN 11/17/2019, 2:25 PM Interface, Out Surescripts Prov Query - 11/15/2019 9:10 AM CDT omeprazole (PRILOSEC) 20 MG capsule Miscellaneous - 12 Month Visit -> The request contains a note from the pharmacy. -> The requested sig has changed from the last order. -> Refill x 6 months, qty: 90, refills: 1 (until due for an office visit) Last qualifying visit: 04/20/2019 (with SHELLY OTT) (A more recent visit (in Internal Medicine with NOREEN ASHER) was found) Next scheduled visit: None Last ordered by SHELLY OTT: 05/29/2019 (170 days ago) QTY: 180, Refills: 3, Sig: take 1 capsule by mouth twice daily 1 hour before a meal (changed) Powered by [employer], Reference: [id number], 11/15/2019 9:10:28 AM CDT, Pool: [facility] REFILL RN ([id number]) Lorene Manley CMA - 11/15/2019 9:08 AM CDT omeprazole (PRILOSEC) 20 MG capsule Last date filled: not given in pharmacy request Qty: not given in pharmacy request Sig: not given in pharmacy request Pharmacy note: Please send refill for omeprazole 20 mg caps. Called to get transfer from [facility] in [place]. They stated no refills remaining. Lorene Manley CMA 11/15/2019, 9:08 AM documented in this encounter Plan of Treatment Not on filedocumented as of this encounter Visit Diagnoses Not on filedocumented in this encounter Care Teams Supervisor Carbon Paper Coating Relationship Specialty Start Date End Date Shelly Ott MD PCP - General Internal Medicine 10/26/17 10/17/21 [address] [place] [address] documented as of this encounter
--- OUTSIDE RECORDS SUMMARY | 2022-02-24 12:19 | XMS_ITS | Encounter Summary ---
:1935 Author Organization [facility] Address [address], [place] [address] Care Team Providers Name Role Phone Placido Ott MD Primary Care Provider Reason for Visit Reason Comments LAB RESULTS Encounter Details Date Type Department Care Team Description 04/21/2019 Telephone [facility] Do juve Ott MD LAB RESULTS [facility] [address] [place] [address] [place] [address] [phone] Social History Tobacco Use Types Packs/Day Years [...] documented as of this encounter Nursing Notes Alicia Hollis RN - 04/21/2019 11:01 AM CST Patient informed all questions answered Alicia Hollis RN 04/21/201911:01 AM PAY REPRESENTATIVE Alicia Hollis RN - 04/21/2019 10:58 AM CST ----- Message from Placido Ott MD sent at 04/21/2019 10:45 AM SELF PAY REPRESENTATIVE ----- Phone (and release to OPS). Labs and chest xray all look good. Recommend oral vitamin B12 1000 mcg daily - [facility] Recommend discuss with your adoption counselor your ongoing cough. Ok to continue Mucinex as needed. Hemoglobin normal (no ongoing bleeding), so report any additional vomiting with blood, but will hold off on endoscopy at this time. Placido Ott MD 04/21/2019 10:45 AM PAY REPRESENTATIVE documented in this encounter Plan of Treatment Not on filedocumented as of this encounter Visit Diagnoses Not on filedocumented in this encounter Care Teams Director Of Music Therapy Relationship Specialty Start Date End Date Placido Ott MD PCP - General Internal Medicine 10/26/17 10/17/21 [address] [place] [address] documented as of this encounter
--- OUTSIDE RECORDS SUMMARY | 2022-02-24 12:19 | XMS_ITS | Encounter Summary ---
:1935 Author Organization [employer] Address [address] [place] [address] Care Team Providers Name Role Phone Placido Ott MD Primary Care Provider Reason for Visit Reason Comments Ear Pain Encounter Details Date Type Department Care Team Description 01/23/2020 Nurse Triage Careline Unassigned, Provider Ear Pain [address] [place], [place] [address] [place] [address] Social History Tobacco Use Types Packs/Day Years [...] documented as of this encounter Nursing Notes Tona Egan RN - 01/23/2020 6:44 PM CDT Verified patient identity: Yes with patient's who is caller and credit reporter Situation/Background (brief explanation of current symptoms/situation): He has a severe ear ache inhis left ear. He wears a hearing aid in both ears. Ear ache present x 2-3 days. pain. No drainage. States unable to wear hearing aid due to discomfort. Does the patient currently have any of these Covid symptoms? (Shortness of Breath/Difficulty of breathing, Sore Throat, Fever, Cough, New loss of smell or loss of taste) No Covid19 Symptoms - Other symptoms If directing the patient to schedule an appointment or be seen in the appropriate urgent care: In the last 14 days have you had close contact with a person known to have COVID-19 or been instructed to self-isolate? No and negative for COVID symptoms - okay to schedule or send to any site Reviewed with patient pertinent medical history(as it related to the call): Yes asthma, Epic list reviewed Prostate cancer. Reviewed with patient pertinent medications (as they relate to call): Yes Started self on old Rx of cefadroxil, Tylenol/ibuprofen. Reviewed with patient pertinent allergies (as they relate to call): Yes Epic list reviewed Reason for Disposition ? ? Earache (Exceptions: brief ear pain of < 60 minutes duration, earache occurring during air travel Answer Assessment - Initial Assessment Questions 1. LOCATION: Which ear is involved? Left 2. ONSET: When did the ear start hurting 2-3 days ago 3. SEVERITY: How bad is the pain? (Scale 1-10; mild, moderate or severe) - MILD (1-3): doesn't interfere with normal activities - MODERATE (4-7): interferes with normal activities or awakens from sleep - SEVERE (8-10): excruciating pain, unable to do any normal activities 4. URI SYMPTOMS: Do you have a runny nose or cough? No 5. FEVER: Do you have a fever? If so, ask: What is your temperature, how was it measured, and when did it start? No 6. CAUSE: Have you been swimming recently?, How often do you use Q-TIPS?, Have you had any recent air travel or scuba diving? No 7. OTHER SYMPTOMS: Do you have any other symptoms? (e.g., headache, stiff neck, dizziness, vomiting, runny nose, decreased hearing) Denies all. States not able to wear hearing aid and severely [place] without it. Protocols used: [id number] PLAN: See PCP within 24 hours Pt agrees with plan, no further questions. States will bring him to [facility]. Advised patient/caller to call back CareLine if there are further questions or concerns or to be seen if situation becomes emergent. The CareLine is available 05/01. Tona Egan RN 01/23/2020, 6:54 PM Susu collier - 01/23/2020 6:41 PM CDT Verified patient identity using three identifiers: Yes Caller's relationship to patient: spouse At which care system or clinic is the patient normally seen? [facility] Symptoms Describe the reason for call/symptoms (include location and duration if applicable): pt's states pt has a severe earache Plan:Caller transferred directly to CareLine nurse. documented in this encounter Plan of Treatment Not on filedocumented as of this encounter Visit Diagnoses Not on filedocumented in this encounter Care Teams Shotgun Shell Loading Machine Operator Relationship Specialty Start Date End Date Placido Ott MD PCP - General Internal Medicine 10/26/17 10/17/21 [address] [place] [address] documented as of this encounter
--- OUTSIDE RECORDS SUMMARY | 2022-02-24 12:19 | XMS_ITS | Encounter Summary ---
:1935 Author Organization [facility] Address [address], [place] [address] Care Team Providers Name Role Phone Placido Ott MD Primary Care Provider Encounter Details Date Type Department Care Team Description 08/08/2019 Telephone [facility] Waqas Rodney MD [facility] [address] [place] [place] [address] [address] [place], [place] [id number] [phone] Social History Tobacco Use Types Packs/Day Years [...] as of this encounter Nursing Notes Deepika Arellano RN - 08/08/2019 1:16 PM CST Placed call to patient and spoke with Corie and below message given. Notes recorded by Waqas Rodney MD on 08/07/2019 at 11:53 AM PULL TAB DEALER Urine clear please inform. Corie verbalizes understanding and she will notify patient. Deepika Arellano RN 08/08/2019, 1:16 PM TAB DEALER documented in this encounter Plan of Treatment Not on filedocumented as of this encounter Visit Diagnoses Not on filedocumented in this encounter Care Teams Glass Cleaning Machine Tender Relationship Specialty Start Date End Date Placido Ott MD PCP - General Internal Medicine 10/26/17 10/17/21 [address] [place] [address] documented as of this encounter
--- OUTSIDE RECORDS SUMMARY | 2022-02-24 12:19 | XMS_ITS | Encounter Summary ---
:[address] [facility] Address [address] [address] Care Team Providers Name Role Phone Placido Ott MD Primary Care Provider Reason for Visit Reason Comments QUESTIONS, GENERAL scrotum pain Encounter Details Date Type Department Care Team Description 06/30/[address] [facility] Waqas Rodney GENERAL [place] Edson Griffith MD (scrotum pain) [facility] [address] [place] [address] [place], [place] [phone] [address] Social History Tobacco Use Types Packs/Day Years [...] documented as of this encounter Nursing Notes Yuliya Palomino RN - 07/01/2019 3:03 PM CST Informed patient of below message. Plan to continue with his appointment as scheduled next week. Patient will call back if symptoms worsen. Patient verbalized understanding and in agreement of plan. Yuliya Palomino RN 07/01/2019, 3:04 PM ATOR Waqas Rodney MD - 07/01/2019 2:17 PM CST No other treatment needed ATOR Yuliya Palomino RN - 06/30/2019 3:36 PM CST Patient states that he has been having testicle pain that is intermittent. He states that most of the time it is just in the Right side but will sometimes be painful in the left side as well. He statesit is worse when he gets the urge to void and is slightly better after he urinates but still present. It does not get worse during urination. Denies any swelling or redness. He states he does not have any fever he is aware of, but at times does feel flushed. Was able to get patient an appointment next week on 07/07/[address] Rodney. Please advise. Yuliya Palomino RN 06/30/2019, 3:48 PM Estefani Barnard - 06/30/2019 3:00 PM CST Symptoms [Pot Filler/Appt Center: If this call is after 3 p.m., communicate to patient: If we are not able to get back to you by the end of the day and your symptoms worsen, please contact the Careline [phone] OR at .] [Pot Filler/Appt Center: Refer to Symptoms Indicating Need for Triage list to determine urgency level.] Describe your symptoms (if pain, include location): Scrotum pain on and off for a couple of weeks Have you recently been seen for this? No. He scheduled with Dr. Rodney for 08/04/19 and is on the wait list. [Pot Filler/Appt Center: Add/verify patient preferred pharmacy is highlighted in blue in the Pharmacy Selection under Meds & Orders] Is it okay to leave a detailed message on your voicemail? Yes Is there anything else I can help you with today? no Estefani Santiago Please warm transfer/route to RNs for further triage ATOR documented in this encounter Plan of Treatment Not on filedocumented as of this encounter Visit Diagnoses Not on filedocumented in this encounter Care Teams Exterminator Termite Relationship Specialty Start Date End Date Placido Ott MD PCP - General Internal Medicine 10/26/17 10/17/21 [address] [place] [address] documented as of this encounter
--- OUTSIDE RECORDS SUMMARY | 2022-02-24 12:19 | XMS_ITS | Encounter Summary ---
:1935 Author Organization [facility] Address [address] [address] Care Team Providers Name Role Phone Placido Ott MD Primary Care Provider Reason for Visit Reason Comments Test Results Encounter Details Date Type Department Care Team Description 07/08/2019 Telephone [facility] Waqas Rodney, Test Results [facility] Urology [address] [place] [address] [place] [address] [phone] Social History Tobacco Use Types Packs/Day Years [...] documented as of this encounter Progress Notes Abi Lagunas RN - 07/08/2019 8:36 AM DUAL RATE SUPERVISOR Addended by: ABI LAGUNAS on: 07/08/2019 08:36 AM Modules accepted: Orders RATE SUPERVISOR documented in this encounter Nursing Notes Abi Lagunas RN - 07/08/2019 8:32 AM CST Error to below, 10 days. Also, Notes recorded by Waqas Rodney MD on 07/07/2019 at 6:40 PM DUAL RATE SUPERVISOR PSA stable please inform no evid of active prostate cancer recheckPSA one year. PSA has been ordered. Patient verbalizes understanding and agrees to plan of care. Abi Lagunas RN 07/08/2019, 8:35 AM RATE SUPERVISOR Abi Lagunas RN - 07/08/2019 8:27 AM CST Left detailed message for patient informing him of her positive urine culture. Patient was started on duricef BID for 14 days. Prescription was sent to [facility] in [place]. Abi Lagunas RN 07/08/2019, 8:29 AM RATE SUPERVISOR documented in this encounter Plan of Treatment Not on filedocumented as of this encounter Results (ABNORMAL) Prostatic Specific Antigen (F/U) (05/16/2020 2:30 PM DUAL RATE SUPERVISOR) P athologist Signature Prostatic 6.6 (H) 0.0 - 4.0 05/16/2020 [place] Specific ng/mL 8:49 PM [facility] Antigen Specimen Anatomical Collection Method / Collection Time Recei anisa Time (Source) Location / Volume Laterality Blood Venipuncture / 05/16/2020 2:30 05/16/2020 2:30 Unknown PM DUAL RATE SUPERVISOR PM DUAL RATE SUPERVISOR Narrative [facility] - 05/16/2020 8:49 PM DUAL RATE SUPERVISOR The Carreon PSA Chemiluminescent immunoas say is used. Results obtained with different test methods or kits cannot be used inte rchangeably. Waqas Rodney MD LAB_1 Performing Organization Address City/State/ZIP Code Phon e Number [facility] [address] [place] [address] [phone] documented in this encounter Visit Diagnoses Diagnosis Elevated PSA - Primary Elevated prostate specific antigen (PSA) documented in this encounter Care Teams Account Representative Relationship Specialty Start Date End Date Placido Ott MD PCP - General Internal Medicine 10/26/17 10/17/21 [address] [place] [address] documented as of this encounter
--- OUTSIDE RECORDS SUMMARY | 2022-02-24 12:19 | XMS_ITS | Encounter Summary ---
:1935 Author Organization [facility] Address [address] [address] Care Team Providers Name Role Phone No Primary/Referring, Phy Primary Care Provider Unavailable Encounter Details Date Type Department Care Team Description 08/08/2019 Correspondence [facility] Waqas Griffith MD [facility] Urology [address] [place] [address] [place], [place] [phone] [id number] Social History Tobacco Use Types Packs/Day Years [...] on filedocumented in this encounter Care Teams Liquor Establishment Manager Relationship Specialty Start Date End Date No Primary/Referring, Phy PCP - General 12/11/21 documented as of this encounter
--- OUTSIDE RECORDS SUMMARY | 2022-02-24 12:19 | XMS_ITS | Encounter Summary ---
:1935 Author Organization [facility] Address [address] [address] Care Team Providers Name Role Phone Shelly Ott MD Primary Care Provider Reason for Visit Reason Comments Refill allopurinol (ZYLOPRIM) 100 M G tablet [Pharmacy Med Name: ALLOPURINOL 100MG TABLETS] Encounter Details Date Type Department Care Team Description 06/07/2019 Refill [facility] Shelly Ott Re fill (allopurinol [facility] anjelica Spence MD (ZYLOPRIM) 100 MG [address] tablet [[place] [address] BLVD Name: ALLOPURINOL 100MG [phone] [place], [place] TABLETS]) [id number] Social History Tobacco Use Types Packs/Day Years [...] encounter Nursing Notes Adelaide Rehman RN - 06/07/2019 10:42 AM CST Medication(s) approved by RN per Refill Protocol/Standing Order. Adelaide Rehman RN 06/07/2019, 10:42 AM SION ENGINEER Interface, Out Surescripts Prov Query - 06/07/2019 10:34 AM CST allopurinol (ZYLOPRIM) 100 MG tablet [Pharmacy Med Name: ALLOPURINOL 100MG TABLETS] Miscellaneous - 12 Month Visit -> Refill x 12 months, qty: 90, refills: 3 (until due for an office visit) Last qualifying visit: 04/20/2019 (with SHELLY OTT) Next scheduled visit: None Last ordered by SHELLY OTT: 03/13/2019 (86 days ago) QTY: 90, Refills: 0, Sig: take 1 tabletby mouth every day (unchanged) Powered by [employer], Reference: [id number], 06/07/2019 10:34:52 AM DIVISION ENGINEER, Pool: PETER REFYUDITH KRISHNAN ([id number]) SION ENGINEER documented in this encounter Plan of Treatment Not on filedocumented as of this encounter Visit Diagnoses Not on filedocumented in this encounter Care Teams Life Specialist Relationship Specialty Start Date End Date Shelly Ott MD PCP - General Internal Medicine 10/26/17 10/17/21 [address] [place] [address] documented as of this encounter
--- OUTSIDE RECORDS SUMMARY | 2022-02-24 12:19 | XMS_ITS | Encounter Summary ---
:1935 Author Organization [facility] Address [address], [place] [address] Care Team Providers Name Role Phone Placido Ott MD Primary Care Provider Reason for Visit Reason Comments VOMITING, BLOOD Encounter Details Date Type Department Care Team Description 04/11/2019 Nurse Triage [facility] Placido Ott MITINGJEAN Internal T, Medicine [address] [place] [address] [place], [place] [phone] Social History Tobacco Use Types Packs/Day Years [...] documented as of this encounter Nursing Notes Silvina Walsh RN - 04/11/2019 3:05 PM CDT Verified patient identity using three identifiers: Yes Situation/Background (brief explanation of current symptoms/situation): Patient had episode of vomiting this morning around 0930, it was pink and red. Red spots were dime sized or smaller and maybe streaky. Pt has had no further episodes but does have a stomach ache. Ate soup and is drinking water. Denies any dizziness or fevers. Discussed with patients PCP, as long as patient eating and drinking, monitor for now. If any prolonged dizziness or further episodes of vomiting, patient to be seen in the ER. Patient verbalized understanding. Reason for Disposition ? ? Age > 60 years Answer Assessment - Initial Assessment Questions 1. APPEARANCE of BLOOD: What does the blood look like? (e.g., color, coffee-grounds) [place] and red, red spots look like blood. Spots are dime size or smaller 2. AMOUNT: How much blood was lost? Unable to answer 3. VOMITING BLOOD: How many times did it happen? or How many times in the past 24 hours? 1 episode, vomited twice 4. VOMITING WITHOUT BLOOD: How many times in the past 24 hours? 1 episode 5. ONSET: When did vomiting of blood begin? This morning around 0930 6. CAUSE: What do you think is causing the vomiting of blood? Unsure 7. BLOOD THINNERS: Do you take any blood thinners? (e.g., Coumadin/warfarin, Pradaxa/dabigatran, aspirin) None 8. DEHYDRATION: Are there any signs of dehydration? When was the last time you urinated? Do youfeel dizzy? Dizzy at time of vomiting, not currently dizzy. 9. ABDOMINAL PAIN: Are you having any abdominal pain? If yes: What does it feel like? (e.g., crampy, dull, intermittent, constant) Abdominal pain present, able to eat soup and drink water. No further episodes of vomiting 10. DIARRHEA: Is there any diarrhea? If so, ask: How many times today? Denies, had a normal bowel movement this morning 11. OTHER SYMPTOMS: Do you have any other symptoms? (e.g., fever, blood in stool) Denies Protocols used: VOMITING [id number] Silvina Walsh RN 04/11/2019, 3:27 PM [facility] - 04/11/2019 2:54 PM CDT Symptoms [Recreational Specialist/Appt Center: If this call is after 3 p.m., communicate to patient: If we are not able to get back to you by the end of the day and your symptoms worsen, please contact the Careline [phone] OR at .] [Recreational Specialist/Appt Center: Refer to Symptoms Indicating Need for Triage list to determine urgency level.] Describe your symptoms (if pain, include location): vomited some blood today (this morning). All of a sudden he felt like he was going to throw up. He was at a motel and went into the bathroom and had like projectile vomiting, but did not throw anythingup except ordinary fluid and blood. When did they start? today What have you tried at home (please specify medication name, if any)? Didn't feel like he wanted to eat anything, drank water and 7up and had some soup at [employer]. Since then he has had no incidents of vomiting. No Diarrhea although his stomach hurts. Is it okay to leave a detailed message on your voicemail? Yes Is there anything else I can help you with today? oCmfort Hair Please warm transfer/route to RNs for further triage documented in this encounter Plan of Treatment Not on filedocumented as of this encounter Visit Diagnoses Not on filedocumented in this encounter Care Teams Telecommunications Linesworker Relationship Specialty Start Date End Date Placido Ott MD PCP - General Internal Medicine 10/26/17 10/17/21 [address] [place] [address] documented as of this encounter
--- OUTSIDE RECORDS SUMMARY | 2022-02-24 12:19 | XMS_ITS | Encounter Summary ---
:1935 Author Organization [facility] Address [address], [place] [address] Care Team Providers Name Role Phone Placido Ott MD Primary Care Provider Reason for Visit Reason Comments Medicare Annual Wellness Video Visit FALL Encounter Details Date Type Department Care Team Description 05/21/2020 Telemedicine [facility] Placido Ott for Medicare annual wellness exam (Primary Dx); Beatriz Spence MD Gastroesophageal reflux disease, unspeci fied whether esophagitis present; Medicine [address] Vitamin B12 deficiency; [address] Mild persistent asthma without complicat ion; [place] Acute otiti s externa of left ear, unspecified type [id number] [phone] Social History Tobacco Use Types Packs/Day Years [...] as of this encounter Patient Instructions Patient InstructionsLeann Kowalski - 05/21/2020 1:00 PM CST Annual Wellness Visit Summary Your care team is recommending the following tests, procedures or services. Some of these recommendations may not be fully covered by Medicare or your insurance. If you have questions, check with your insurance to determine coverage before completing these services. Health Maintenance Due Health Maintenance Due Topic Date Due ??? HepA (2 of 2 - Risk 2-dose series) 09/23/2016 If your Medicare Welcome or Annual Wellness Visit is showing you are due in the above list, this will be updated after this visit. You had this completed today and are not due for another year. GER TRAINING documented in this encounter Progress Notes Placido Ott MD - 05/21/2020 1:00 PM CST Medicare Annual Today's visit with Zaid was conducted as a scheduled video visit. Subjective/Historical: Zaid Rutledge is a 85 y.o. old male Chief Complaint Patient presents with ??? Medicare Annual Wellness ??? Video Visit Current Concerns: Ear Pain How long have you had these symptoms? 1 week(s) Which ear(s) do you have symptoms in? left ear, cannot use hearing aid What does your pain feel like: aching How severe is your pain (1-10): 4 Have you had a fever? No Is there any fluid draining from the ear(s)? No Are you experiencing any other symptoms? hearing loss Have you had an ear infection in the past? YES Are there any treatments you have tried? YES What products have you tried?Ear drops. Did the treatment help your symptoms? Yes mildly A couple of falls this last year, once when forgot cane and tripped, fell on right side, a lot of bruising on right side, still sore. Heartburn was not relieved by single omeprazole, so taking twice daily, but not taking as instructedbefore a meal. Asthma well conrolled on advair, singulair, although still with a chronic cough, Mucinex helpful forloosening, unchanged. Pravastatin for cholesterol. Hypertension - had a history of high blood pressure, taken off blood pressure meds, elevated at his last visit. No chest pain, shortness of breath, palpitations, edema. Observed Vitals: There were no vitals taken for this visit. Video: pleasant, no distress, speech and breathing pattern are normal. Assessment/Plan Encounter for Medicare annual wellness exam (primary encounter diagnosis) Comment: All health caremaintenance and preventive counseling issues addressed. Up to date on services Gastroesophageal reflux disease, unspecified whether esophagitis present Comment: controlled on bid PPI. Advised to take 30-60 minutes before meal, might be able to decreaseto one daily Vitamin B12 deficiency Comment: ok on oral b12 Mild persistent asthma without complication Comment: controlled, The current medical regimen is effective; continue present plan and medications. Acute otitis externa of left ear, unspecified type Comment: empiric tx with cortisporin (worked last summer) Plan: neomycin-polymyxin B-hydrocortisone (CORTISPORIN) [id number] ear drop solution Counseling and education provided today includes proper nutrition and health habits, fall prevention, and for those items ordered above. Plan for future preventive services in Patient Instructions. Placido Ott MD 05/21/2020, 12:20 PM Clinician in office Patient at home Billing based on complexity GER TRAINING documented in this encounter Plan of Treatment Not on filedocumented as of this encounter Visit Diagnoses Diagnosis Encounter for Medicare annual wellness e xam - Primary Gastroesophageal reflux disease, unspeci fied whether esophagitis present Vitamin B12 deficiency ([facility]) Other B-complex deficiencies Mild persistent asthma without complicat ion ([facility]) Unspecified asthma Acute otitis externa of left ear, unspec ified type documented in this encounter Care Teams Automatic Pad Making Machine Operator Relationship Specialty Start Date End Date Placido Ott MD PCP - General Internal Medicine 10/26/17 10/17/21 [address] [place] [address] documented as of this encounter
--- OUTSIDE RECORDS SUMMARY | 2022-02-24 12:19 | XMS_ITS | Encounter Summary ---
:1935 Author Organization [facility] Address [address] [address] Care Team Providers Name Role Phone Placido Ott MD Primary Care Provider Reason for Visit Reason Comments URINARY PROBLEM Encounter Details Date Type Department Care Team Description 05/18/2020 Office Visit [facility] Waqas Rodney Ur inary problem [place] Edson Griffith MD (Primary Dx) [place] [facility] [address] [place] [address] [place], [place] [phone] Social History Tobacco Use Types Packs/Day Years [...] Sign Reading Time Taken Comments Blood Pressure 147/81 05/18/2020 2:58 PM PHOTOGRAPHY ASSISTANT Pulse 77 05/18/2020 2:58 PM PHOTOGRAPHY ASSISTANT Temperature - - Respiratory Rate - - Oxygen Saturation - - Inhaled Oxygen Concentration - - Weight - - Height - - Body Mass Index - - documented in this encounter Patient Instructions Patient InstructionsStWaqas haynes MD - 05/18/2020 2:30 PM CST IMPRESSION: 1. 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 It is not showing any of progression 2. Mild right epidididymitis. On antibiotics, improving 3. neurogenic bladder on clean catheterization. PLAN: 1. Twice a year PSA if PSA approaches 10 would consider intervention (medication) this would probably be hormone medication that typically is effective for 5-8 yrs. 2. Continue antibiotics. OGRAPHY ASSISTANT documented in this encounter Progress Notes Waqas Rodney MD - 05/18/2020 2:30 PM CST Date of Service: 05/18/2020 S: Zaid is here for right orchalgia. Has had before. No fevers. On 6X a day [facility]IC and going well Low risk prostate cancer not treated and PSA stable No new urologic medications have been prescribed. No fever, significant weight loss or rash. No change in sexual function. No rashes of the ext genitalia. No intervention by other caregiver for problem. No complaints of urinary leakage, hematuria, UTI's. O: Vitals: 05/18/20 1435 BP: (!) 158/90 Pulse: 80 Alert and oriented and good spirits. No rashes on the face or neck. No gynecomastia, no flank masses or tenderness. Abdomen and flank soft, no rebound or masses. No inguinal masses or hernia. Testis benign, descended. Mild swelling of the right epid, no hernia or masses. Urethral meatus normal, no peyronies plaques, skin lesions. Anal tone normal, no rectal masses, prostate benign and symmetric. Tests: Urine negative (clear) PSA stable 6.6 (same as 09/2017) IMPRESSION: 1. 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 It is not showing any of progression 2. Mild right epidididymitis. On antibiotics, improving 3. neurogenic bladder on clean catheterization. PLAN: 1. Twice a year PSA if PSA approaches 10 would consider intervention (medication) this would probably be hormone medication that typically is effective for 5-8 yrs. 2. Continue antibiotics. (Please note this document was prepared with voice recognition software likely resulting in unintentional word substitutions. Please contact me if clarification is needed.) OGRAPHY ASSISTANT documented in this encounter Plan of Treatment Not on filedocumented as of this encounter Results (ABNORMAL) Prostatic Specific Antigen (Diagnostic F/U) (12/19/2020 3:23 PM CDT) P athologist Signature Prostatic 6.6 (H) 0.0 - 4.0 12/19/2020 [place] Specific ng/mL 8:54 PM CDT [facility] Antigen Specimen Anatomical Collection Method / Collection Time Recei anisa Time (Source) Location / Volume Laterality Blood Venipuncture / 12/19/2020 3:23 12/19/2020 3:23 Unknown PM CDT PM CDT Narrative [facility] - 12/19/2020 8:54 PM CDT The Carreon PSA Chemiluminescent immunoas say is used. Results obtained with different test methods or kits cannot be used inte rchangeably. Waqas Rodney MD LAB_1 Performing Organization Address City/State/ZIP Code Phon e Number [facility] [address] [place] [address] (ABNORMAL) UA Micro If (05/16/2020 2:28 PM PHOTOGRAPHY ASSISTANT) Patholo gist Method Time Signature Urine Color Light Yellow Straw-Yellow 05/16/2020 [place] AT 2:42 PM PHOTOGRAPHY ASSISTANT [address] Urine Clarity Clear Clear 05/16/2020 [place] AT 2:42 PM PHOTOGRAPHY ASSISTANT [address] Specific 1.016 1.005 - 05/16/2020 [place] AT [place], 1.030 2:42 PM PHOTOGRAPHY ASSISTANT [address] Urine PH Urine 5.5 5.0 - 8.0 05/16/2020 [place] AT 2:42 PM PHOTOGRAPHY ASSISTANT [address] Protein, Negative Negative 05/16/2020 [place] [facility] Urine Qual 2:42 PM PHOTOGRAPHY ASSISTANT [address] (mg/dL) Glucose Urine Negative Negative 05/16/2020 [place] [facility] Qual (mg/dL) 2:42 PM PHOTOGRAPHY ASSISTANT [address] Ketones, Negative Negative 05/16/2020 [place] [facility] Urine (mg/dL) 2:42 PM PHOTOGRAPHY ASSISTANT [address] Urobilinogen, <2.0 <2.0 05/16/2020 [place] [facility] Urine (EU/dL) 2:42 PM PHOTOGRAPHY ASSISTANT [address] Bilirubin Negative Negative 05/16/2020 [place] [facility] Urine 2:42 PM PHOTOGRAPHY ASSISTANT [address] Blood, Urine Negative Neg/Trace 05/16/2020 [place] AT 2:42 PM PHOTOGRAPHY ASSISTANT [address] Nitrite Urine Negative Negative 05/16/2020 [place] AT 2:42 PM PHOTOGRAPHY ASSISTANT [address] Leukocyte Trace (A) Negative 05/16/2020 [place] [facility] Est. 2:42 PM PHOTOGRAPHY ASSISTANT [address] Red Blood 1 0 - 3 /HPF 05/16/2020 [place] [facility] Cells 2:42 PM PHOTOGRAPHY ASSISTANT [address] White Blood 2 0 - 5 /HPF 05/16/2020 [place] [facility] Cells 2:42 PM PHOTOGRAPHY ASSISTANT [address] Mucus Present (A) None Seen 05/16/2020 [place] AT /HPF 2:42 PM PHOTOGRAPHY ASSISTANT [address] Specimen Anatomical Collection Method Collection Time Receive d Time (Source) Location / / Volume Laterality Urine URINE SPECIMEN Non-blood 05/16/2020 2:28 PM 020 2:38 COLLECTION, CLEAN Collection / PHOTOGRAPHY ASSISTANT PM PHOTOGRAPHY ASSISTANT CATCH / Unknown Unknown Waqas Rodney MD LAB_1 Performing Organization Address City/State/ZIP Code Phon e Number [facility] [address] [place], [place] [address] [facility] [address] [place], [place] [address] [phone] documented in this encounter Visit Diagnoses Diagnosis Urinary problem - Primary Other urinary problems documented in this encounter Care Teams Bight Maker Relationship Specialty Start Date End Date Placido Ott MD PCP - General Internal Medicine 10/26/17 10/17/21 [address] [place] [address] (work) documented as of this encounter
--- OUTSIDE RECORDS SUMMARY | 2022-02-24 12:19 | XMS_ITS | Encounter Summary ---
:1935 Author Organization [facility] Address [address], [place] [address] Care Team Providers Name Role Phone Placido tOt MD Primary Care Provider Reason for Visit Reason Comments Careplan: General Patient needs Dr. Ronel blackmon o call [employer] to increase the number of catheters he recei ves at one time Encounter Details Date Type Department Care Team Description 09/26/2019 Telephone [facility] Waqas Rodney replan: General Beatriz Griffith MD (Patient needs Dr. Randolph [facility] [address] [facility] to call [employer] [facility] [employer] [address] [place], [place] increase the number of [phone] catheters he receives [phone] at one time) (Work) Social History Tobacco Use Types Packs/Day [...] documented as of this encounter Nursing Notes Abi Lagunas RN - 09/29/2019 11:32 AM CDT Done! Will fax to [employer]. Abi Lagunas RN 09/29/2019, 11:32 AM Waqas Rodney MD - 09/29/2019 8:39 AM CDT Yes this is ok to increase cathing and order caths to reflect this Abi Lagunas RN - 09/28/2019 11:49 AM CDT Patient returned call. Patient states he has increased his water intake and currently has a cathing schedule of 5-6 but would like it increased to 6-7. Please advise if this is appropriate and the necessary changes can be relayed to [facility]. From office visit on 07/07/2019: Date of Service: 07/07/2019 ? A: Mild right orchalgia, no swelling or hernia ?? Prostate cancer, low risk, on surveillance. ?? 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 P: culture urine today and call if shows UTI ?? Stay off antibiotics and monitor ?? Will send with written rx for duricef 500 mg BID ?? Avoid levaquin from tendon issues ?? PSA today keep it under 10 is goal. ? S: mild intermittent orchalgia Going to [place] soon and wants to get checked. No new urologic medications have been prescribed. No fever, significant weight loss or rash. No change in sexual function. No rashes of the ext genitalia. No intervention by other caregiver for problem. No complaints of urinary leakage, hematuria, UTI's. Abi Lagunas RN 09/28/2019, 11:50 AM Deepika Arellano RN - 09/26/2019 2:33 PM CDT Message left for patient to return call to discuss further. Deepika Arellano RN 09/26/2019, 2:34 PM Rosemarie Vasquez - 09/26/2019 12:43 PM CDT Reason for call? Patient states that he needs Dr. Rodney to call [facility] to increase the number of catheters he receives from them. Please call: . Please call to discuss. Best time to reach you? Anytime Ok to leave a detailed message? Yes Rosemarie Vasquez ....................................09/26/2019 12:43 PM documented in this encounter Plan of Treatment Not on filedocumented as of this encounter Visit Diagnoses Not on filedocumented in this encounter Care Teams Touch Up Worker Relationship Specialty Start Date End Date Placido Ott MD PCP - General Internal Medicine 10/26/17 10/17/21 [address] [place] [address] documented as of this encounter
--- OUTSIDE RECORDS SUMMARY | 2022-02-24 12:19 | XMS_ITS | Encounter Summary ---
:1935 Author Organization [facility] Address [address] [address] Care Team Providers Name Role Phone Placido Ott MD Primary Care Provider Reason for Visit Reason Comments Medication Request neomycin-polymyxin B-hydroco rtisone (CORTISPORIN) 3.5-15453-0 ear drop solution Encounter Details Date Type Department Care Team Description 03/30/2020 Telephone [facility] Placido Ott Ks dication Request Beatriz Spence MD (neomycin-polymyxin Medicine [address] B-hydrocortisone [address] (CORTISPORIN) [place] [address] [place] 3.5-83621-2 ear drop [phone] solution ) Social History Tobacco Use Types Packs/Day Years [...] documented as of this encounter Nursing Notes Verito Wilhelm RN - 03/30/2020 4:27 PM CDT Seen in urgent care on 01/23/20 for otitis externa of left ear. Explained to that he would need to be evaluated again before ear drops could be prescribed again. She states she picked up OTC ear drops and she will try these instead. She is reminded of weekend urgent care hours if his ear pain worsens. She verbalizes understanding and agrees with plan. Kaleb Wilhelm RN 03/30/2020 4:31 PM Yuki Molina - 03/30/2020 9:38 AM CDT What medication are you requesting (name or type): neomycin-polymyxin B- hydrocortisone (CORTISPORIN)3.5-98739-9 ear drop solution Why do you need this medication: His Earache is back Have you taken this medication or type of medication before: Yes, he was given this medication in urgent care 01/23/20 Is it okay to leave detailed message on your voicemail? yes If a prescription is needed, would you like it filled at our clinic pharmacy? [Security Operations Center Analyst/Appt Center: Was the pharmacy entered into the Preferred Pharmacy field? Yes [Security Operations Center Analyst/Appt Center: If this call is after 3 p.m., communicate to patient: If we are not able to get back to you by the end of the day and your symptoms worsen please contact the Careline at [phone] OR at .] Is there anything else I can help you with today? no Yuki Molina 03/30/2020, 9:38 AM documented in this encounter Plan of Treatment Not on filedocumented as of this encounter Visit Diagnoses Not on filedocumented in this encounter Care Teams Appeals Reviewer Veteran Relationship Specialty Start Date End Date Placido Ott MD PCP - General Internal Medicine 10/26/17 10/17/21 [address] [place] [address] documented as of this encounter
--- OUTSIDE RECORDS SUMMARY | 2022-02-24 12:19 | XMS_ITS | Encounter Summary ---
:1935 Author Organization [facility] Address [address] [place] [address] Care Team Providers Name Role Phone Placido Ott MD Primary Care Provider Encounter Details Date Type Department Care Team Description 04/20/[address] [facility] Encoun ter for long-term (current) use of medications; [facility] Vitamin B12 deficiency; [address] Essential hypertension; [place] [address] Gastroesophageal reflux dise ase, esophagitis presence not specified; [phone] Hematemesis, pr esence of nausea not specified Social History Tobacco Use Types Packs/Day Years [...] documented as of this encounter Progress Notes Placido Ott MD - 04/20/2019 4:20 PM CST Phone (and release to OPS). Labs and chest xray all look good. Recommend oral vitamin B12 1000 mcg daily - [facility] Recommend discuss with your chocolate refining roller your ongoing cough. Ok to continue Mucinex as needed. Hemoglobin normal (no ongoing bleeding), so report any additional vomiting with blood, but will hold off on endoscopy at this time. Placido Ott MD 04/21/2019 10:45 AM E GYNECOLOGY documented in this encounter Plan of Treatment Not on filedocumented as of this encounter Procedures Procedure Name Priority Date/Time Associated Diagnosis Comme nts BASIC METABOLIC Routine 04/20/2019 4:31 Essential hypertension Results for this PANEL PM NURSE GYNECOLOGY procedure are i n the results section. COMPLETE BLOOD Routine 04/20/2019 4:31 Encounter for long-term Results for this COUNT-NO DIFF PM NURSE GYNECOLOGY (current) use of procedure are in medications the results section. MAGNESIUM Routine 04/20/2019 4:31 Gastroesophageal reflux R esults for this PM NURSE GYNECOLOGY disease, esophagitis procedu re are in presence not specified the r esults section. VITAMIN B12 ONLY Routine 04/20/2019 4:31 Vitamin B12 deficienc y Results for this PM NURSE GYNECOLOGY procedure are i n the results section. ALT (SGPT) Routine 04/20/2019 4:31 Encounter for long-term R esults for this PM NURSE GYNECOLOGY (current) use of procedure a re in medications the results section. documented in this encounter Results Magnesium (04/20/2019 4:31 PM NURSE GYNECOLOGY) P athologist Signature Magnesium 1.9 1.6 - 2.6 04/20/2019 [facility] mg/dL 6:17 PM NURSE GYNECOLOGY [facility] Specimen Anatomical Collection Method / Collection Time Recei anisa Time (Source) Location / Volume Laterality Blood Venipuncture / 04/20/2019 4:31 04/20/2019 4:31 Unknown PM NURSE GYNECOLOGY PM NURSE GYNECOLOGY Placido Ott MD LAB_1 Performing Organization Address City/State/ZIP Code Phon e Number [facility] [address] [place] [address] (ABNORMAL) Basic Metabolic Panel (04/20/2019 4:31 PM NURSE GYNECOLOGY) P athologist Signature Sodium 143 136 - 145 04/20/2019 [facility] AT mmol/L 4:56 PM NURSE GYNECOLOGY [address] Potassium 4.2 3.5 - 5.1 04/20/2019 [facility] mmol/L 4:56 PM NURSE GYNECOLOGY [address] Chloride 108 98 - 109 04/20/2019 [facility] mmol/L 4:56 PM NURSE GYNECOLOGY [address] CO2 25 20 - 29 04/20/2019 [facility] mmol/L 4:56 PM NURSE GYNECOLOGY [address] Anion Gap 10 7 - 16 04/20/2019 [facility] mmol/L 4:56 PM NURSE GYNECOLOGY [address] Calcium 9.1 8.4 - 10.4 04/20/2019 [facility] mg/dL 4:56 PM NURSE GYNECOLOGY [address] BUN 17 7 - 26 04/20/2019 [facility] mg/dL 4:56 PM NURSE GYNECOLOGY [address] Creatinine 1.15 0.73 - 04/20/2019 [facility] AT 1.18 mg/dL 4:56 PM NURSE GYNECOLOGY [address] GFR, Estimated 58 (L) >60 04/20/2019 [facility] mL/min/1.7 4:56 PM NURSE GYNECOLOGY [address] 3m2 GFR, Est If >60 >60 04/20/2019 [facility] mL/min/1.7 4:56 PM NURSE GYNECOLOGY [address] [place] 3m2 Glucose 103 (H) 70 - 100 04/20/2019 [facility] mg/dL 4:56 PM NURSE GYNECOLOGY [address] Comment: The given reference range is fo r the fasting state. Non-fasting reference range for glucose is 70 - 180 mg/dL. Hours Fasting 5 04/20/2019 4:56 PM NURSE GYNECOLOGY [place]E JONES AT [facility] Specimen Anatomical Collection Method / Collection Time Recei anisa Time (Source) Location / Volume Laterality Blood Venipuncture / 04/20/2019 4:31 04/20/2019 4:31 Unknown PM NURSE GYNECOLOGY PM NURSE GYNECOLOGY Narrative [place] AT [facility] - 04/20/2019 4:5 6 PM NURSE GYNECOLOGY The National Kidney Disease Education Pr ogram suggests measuring Cystatin C in patients with eGFRcrea of 45 to 59 ml/mi n/1.73^2 who do not have other markers of kidney damage (i.e. elevated urine Album in/Creatinine Ratio or a prior Cystatin C confirming the presence of chronic kidne y disease). Placido Ott MD LAB_1 Performing Organization Address City/[facility]/ZIP Code Phon e Number [facility] [address] [place], [place] [address] [facility] [address] [place], [place] [address], [place] [phone] Vitamin B12 Only (04/20/2019 4:31 PM NURSE GYNECOLOGY) athologist Signature Vitamin B12 293 213 - 816 04/20/2019 [facility] pg/mL 10:09 PM NURSE GYNECOLOGY [facility] Specimen Anatomical Collection Method / Collection Time Recei anisa Time (Source) Location / Volume Laterality Blood Venipuncture / 04/20/2019 4:31 04/20/2019 4:31 Unknown PM NURSE GYNECOLOGY PM NURSE GYNECOLOGY Placido Ott MD LAB_1 Performing Organization Address City/[facility] Phon e Number [facility] [address] [address] ALT (SGPT) (04/20/2019 4:31 PM NURSE GYNECOLOGY) athologist Signature ALT (SGPT) 34 0 - 55 U/L 04/20/2019 [facility] AT 4:56 PM NURSE GYNECOLOGY [address] Specimen Anatomical Collection Method / Collection Time Recei anisa Time (Source) Location / Volume Laterality Blood Venipuncture / 04/20/2019 4:31 04/20/2019 4:31 Unknown PM NURSE GYNECOLOGY PM NURSE GYNECOLOGY Placido Ott MD LAB_1 Performing Organization Address City/[facility] Code Phon e Number [facility] [address] [place], [place] [address] [facility] [address] [place], [place] [address], [place] [phone] Complete Blood Count-No Diff (04/20/2019 4:31 PM NURSE GYNECOLOGY) P athologist Signature WBC 7.7 3.5 - 10.5 04/20/2019 [facility] x10(9)/L 4:37 PM NURSE GYNECOLOGY [address] RBC 5.02 4.32 - 04/20/2019 [facility] 5.72 4:37 PM NURSE GYNECOLOGY [address] x10(12)/L Hemoglobin 15.6 13.5 - 04/20/2019 [facility] 17.5 g/dL 4:37 PM NURSE GYNECOLOGY [address] HCT 48.1 38.8 - 04/20/2019 [facility] 50.0 % 4:37 PM NURSE GYNECOLOGY [address] MCV 95.8 80.0 - 04/20/2019 [facility] 100.0 fL 4:37 PM NURSE GYNECOLOGY [address] MCH 31.1 27.6 - 04/20/2019 [facility] 33.3 pg 4:37 PM NURSE GYNECOLOGY [address] MCHC 32.4 31.5 - 04/20/2019 [facility] 35.2 g/dL 4:37 PM NURSE GYNECOLOGY [address] RDW 13.6 11.9 - 04/20/2019 [facility] 15.5 % 4:37 PM NURSE GYNECOLOGY [address] Platelets 178 150 - 450 04/20/2019 [facility] x10(9)/L 4:37 PM NURSE GYNECOLOGY [address] Automated NRBC 0 <=0 /100 04/20/2019 [facility] WBC 4:37 PM NURSE GYNECOLOGY [address] Specimen Anatomical Collection Method / Collection Time Recei anisa Time (Source) Location / Volume Laterality Blood Venipuncture / 04/20/2019 4:31 04/20/2019 4:31 Unknown PM NURSE GYNECOLOGY PM NURSE GYNECOLOGY Placido Ott MD LAB_1 Performing Organization Address City/State/ZIP Code Phon e Number [facility] [address] [place], [place] [address] [facility] [address] [place], [place] [address] [phone] documented in this encounter Visit Diagnoses Diagnosis Encounter for long-term (current) use of medications Encounter for long-term (current) use of other medications Vitamin B12 deficiency (HRC) Other B-complex deficiencies Essential hypertension (HRC) Unspecified essential hypertension Gastroesophageal reflux disease, esophag itis presence not specified Hematemesis, presence of nausea not spec ified documented in this encounter Care Teams Log Loader Relationship Specialty Start Date End Date Placido Ott MD PCP - General Internal Medicine 10/26/17 10/17/21 [address] [place] [address] documented as of this encounter
--- OUTSIDE RECORDS SUMMARY | 2022-02-24 12:19 | XMS_ITS | Encounter Summary ---
:1935 Author Organization [facility] Address [address], [place] [address] Care Team Providers Name Role Phone Placido Ott MD Primary Care Provider Encounter Details Date Type Department Care Team Description 05/16/2020 Lab Visit [facility] Urinary problem; Laboratory Elevated PSA [address] [place] [address] Social History Tobacco Use Types Packs/Day [...] as of this encounter Progress Notes Deepika Arellano, RN - 05/16/2020 2:[address] Rodney will discuss test result with Dr. Rodney tomorrow at his appt. Deepika Arellano RN 05/17/2020, 8:06 AM K OPERATOR documented in this encounter Plan of Treatment Not on filedocumented as of this encounter Procedures Procedure Name Priority Date/Time Associated Diagnosis Comme nts PROSTATIC SPECIFIC Routine 05/16/2020 2:30 PM Elevated PSA Res ults for this ANTIGEN (DIAGNOSTIC CROOK OPERATOR procedur e are in F/U) the results section. UA MICRO IF Routine 05/16/2020 2:28 PM Urinary problem Result s for this CROOK OPERATOR procedure are i n the results section. documented in this encounter Results (ABNORMAL) Prostatic Specific Antigen (F/U) (05/16/2020 2:30 PM CROOK OPERATOR) athologist Signature Prostatic 6.6 (H) 0.0 - 4.0 05/16/2020 [place] Specific ng/mL 8:49 PM CROOK OPERATOR [facility] Antigen Specimen Anatomical Collection Method / Collection Time Recei anisa Time (Source) Location / Volume Laterality Blood Venipuncture / 05/16/2020 2:30 05/16/2020 2:30 Unknown PM CROOK OPERATOR PM CROOK OPERATOR Narrative [facility] - 05/16/2020 8:49 PM CROOK OPERATOR The Carreon PSA Chemiluminescent immunoas say is used. Results obtained with different test methods or kits cannot be used inte rchangeably. Waqas Rodney MD LAB_1 Performing Organization Address City/State/ZIP Code Phon e Number [facility] [address] [place] [address] (ABNORMAL) UA Micro If (05/16/2020 2:28 PM CROOK OPERATOR) Patholo gist Method Time Signature Urine Color Light Yellow Straw-Yellow 05/16/2020 [place] AT 2:42 PM CROOK OPERATOR [address] Urine Clarity Clear Clear 05/16/2020 [place] AT 2:42 PM CROOK OPERATOR [address] Specific 1.016 1.005 - 05/16/2020 [place] AT [place], 1.030 2:42 PM CROOK OPERATOR [address] Urine PH Urine 5.5 5.0 - 8.0 05/16/2020 [facility] AT 2:42 PM CROOK OPERATOR [address] Protein, Negative Negative 05/16/2020 [facility] Urine Qual 2:42 PM CROOK OPERATOR [address] (mg/dL) Glucose Urine Negative Negative 05/16/2020 [facility] Qual (mg/dL) 2:42 PM CROOK OPERATOR [address] Ketones, Negative Negative 05/16/2020 [facility] Urine (mg/dL) 2:42 PM CROOK OPERATOR [address] Urobilinogen, <2.0 <2.0 05/16/2020 [facility] Urine (EU/dL) 2:42 PM CROOK OPERATOR [address] Bilirubin Negative Negative 05/16/2020 [facility] Urine 2:42 PM CROOK OPERATOR [address] Blood, Urine Negative Neg/Trace 05/16/2020 [facility] AT 2:42 PM CROOK OPERATOR [address] Nitrite Urine Negative Negative 05/16/2020 [facility] AT 2:42 PM CROOK OPERATOR [address] Leukocyte Trace (A) Negative 05/16/2020 [facility] Est. 2:42 PM CROOK OPERATOR [address] Red Blood 1 0 - 3 /HPF 05/16/2020 [facility] Cells 2:42 PM CROOK OPERATOR [address] White Blood 2 0 - 5 /HPF 05/16/2020 [facility] Cells 2:42 PM CROOK OPERATOR [address] Mucus Present (A) None Seen 05/16/2020 [facility] AT /HPF 2:42 PM CROOK OPERATOR [address] Specimen Anatomical Collection Method Collection Time Receive d Time (Source) Location / / Volume Laterality Urine URINE SPECIMEN Non-blood 05/16/2020 2:28 PM 020 2:38 COLLECTION, CLEAN Collection / CROOK OPERATOR PM CROOK OPERATOR CATCH / Unknown Unknown Waqas Rodney MD LAB_1 Performing Organization Address City/State/ZIP Code Phon e Number [facility] [address] [place], [place] [address] [facility] [address] [place], [place] [address] [phone] documented in this encounter Visit Diagnoses Diagnosis Urinary problem Other urinary problems Elevated PSA Elevated prostate specific antigen (PSA) documented in this encounter Care Teams Maintenance Parts Technician Relationship Specialty Start Date End Date Placido Ott MD PCP - General Internal Medicine 10/26/17 10/17/21 [address] [place] [address] documented as of this encounter
--- OUTSIDE RECORDS SUMMARY | 2022-02-24 12:20 | XMS_ITS | Encounter Summary ---
:1935 Author Organization [facility] Address [address], [place] [address] Care Team Providers Name Role Phone Placido Ott MD Primary Care Provider Reason for Visit Reason Comments BP CHECK,NURSE Consult/Transfer Care (Routine) - Closed Specialty Diagnoses / Procedures Referred By Contact Refer red To Contact Diagnoses Essential hypertension (HRC) Placido Ott MD [address] [place] [address] Referral ID Status Reason Start Date Expiration Date Visits Requ ested Visits Authorized [id number] Closed 05/28/2018 08/27/2019 1 1 Encounter Details Date Type Department Care Team Description 06/22/2018 Nursing Visit [facility] Jovan diez [place] Internal hyperten adore (Primary Medicine Dx) [address] [place] [address] Social History Tobacco Use Types Packs/Day [...] Sign Reading Time Taken Comments Blood Pressure 132/72 06/22/2018 2:02 PM CRAB BACKER Pulse 84 06/22/2018 2:02 PM CRAB BACKER Temperature - - Respiratory Rate - - Oxygen Saturation - - Inhaled Oxygen Concentration - - Weight - - Height - - Body Mass Index - - documented in this encounter Progress Notes Kayla Wade CMA - 06/22/2018 2:30 PM CST S Zaid Rutledge here today for follow up blood pressure check. What brings patient in today for a blood pressure check: previous elevated BP Medications were reviewed: not currently taking any blood pressure medications Did patient bring their BP cuff from home? No. Patient did not bring their BP cuff from home. O BP 132/72 Pulse 84 Blood pressures recorded: BP Readings from Last 1 Encounters: 06/22/18 1402 132/72 Heart rate recorded: Pulse: 84 A BP readings at goal. P Always review PCP plan of care for BP follow-up such as BP recheck, PCP visit, medication adjustment(if med adjustment needed please contact RN) BP normal. Follow PCP plan of care, if no plan: Return for Nurse BP hypertension follow up appt in 3months. Close BP visit enc. Follow -up HTN order placed per hypertension guidelines (Note: Always place hypertension order) Kayla Wade CMA BACKER documented in this encounter Plan of Treatment Not on filedocumented as of this encounter Visit Diagnoses Diagnosis Screening for hypertension - Primary documented in this encounter Care Teams Network Systems Consultant Relationship Specialty Start Date End Date Placido Ott MD PCP - General Internal Medicine 10/26/17 10/17/21 [address] [facility] [place] [address] documented as of this encounter
--- OUTSIDE RECORDS SUMMARY | 2022-02-24 12:20 | XMS_ITS | Encounter Summary ---
:1935 Author Organization [facility] Address [address], [place] [address] Care Team Providers Name Role Phone Placido Ott MD Primary Care Provider Reason for Visit Reason Comments APPOINTMENT REQUEST Encounter Details Date Type Department Care Team Description 03/31/2018 Telephone [facility] Lianne Feldman AP POINTMENT REQUEST [facility] [address] [place] [address] [address] [phone] [place] [address] Social History Tobacco Use Types Packs/Day Years [...] documented as of this encounter Nursing Notes Jael Blair - 03/31/2018 2:02 PM CDT Patient was notified of message below. Patient has been scheduled for 04-28-18, per nurse in MD slot. Thank you. Patient has no further questions. Jael Blair ....................................03/31/2018 2:02 PM Cristina Souza RN - 03/31/2018 1:51 PM CDT OK, Thank You. Schedulers, Ok to offer a 30 minute MD approval spot. Please call and schedule, thank you. Cristina Souza RN 03/31/2018, 1:52 PM Jael Blair - 03/31/2018 11:52 AM CDT I'm sorry. The appointment was 04-22-[address] Feldman and I just did a change and scheduled next available in July 2018. Jael Blair 03/31/2018, 11:54 AM Cristina Souza RN - 03/31/2018 11:42 AM CDT What appt was cancelled? I don't see what he's talking about. Please provide more info. Cristina Souza RN 03/31/2018, 11:43 AM Jael Blair - 03/31/2018 11:33 AM CDT Appointments - Same Day/Sooner Patient would like appointment with: his NEUROLOGIST. His appointment in April has been cancelled by clinic and patient feels that doctor should accomidate patient when she cancels their appointment because patient doesn't feel like waiting until next year. Has some questions he has been waiting to discuss at his appointment. Primary Care Physician: Placido Ott MD If requested clinician is unavailable, is it okay to be seen by another clinician? Yes Patient requesting appointment for: APPOINTMENT REQUEST for sooner than July 2018 Wants/Needs to be seen within: 3 week(s) Is it okay to leave detailed message on your voicemail? Yes Jael Bliar [Hydraulic Plumber/Appt Center: Please schedule appointment if openings are available] Please route to: None (Care Team Pool if unable to schedule) documented in this encounter Plan of Treatment Not on filedocumented as of this encounter Visit Diagnoses Not on filedocumented in this encounter Care Teams Validation Analyst Relationship Specialty Start Date End Date Placido Ott MD PCP - General Internal Medicine 10/26/17 10/17/21 [address] [place] [address] documented as of this encounter
--- OUTSIDE RECORDS SUMMARY | 2022-02-24 12:20 | XMS_ITS | Encounter Summary ---
:1935 Author Organization Formerly [facility] Address [address], [place] [address] Care Team Providers Name Role Phone Placido Ott MD Primary Care Provider Encounter Details Date Type Department Care Team Description 11/30/2018 Refill Order [facility] Placido Ott, [facility] anjelica MURRAY [address] [place] [address] [address] [phone] [place], [place] [address] (Wo rk) Social History [...] encounter Progress Notes Lorene Manley CMA - 12/06/2018 1:58 PM CDT Lab ordered per refill standing order. Reminder letter sent. Lorene Manley CMA 12/06/2018, 1:58 PM documented in this encounter Nursing Notes Interface, Out userADgents Prov Query - 11/30/2018 11:38 AM CDT ORDER THE FOLLOWING: - COMPLETE BLOOD COUNT: Pended to encounter. SCHEDULE THE FOLLOWING: - COMPLETE BLOOD COUNT BY: Now (Due as of 09/10/2018 for multiple medications including allopurinol (ZYLOPRIM) 100 MG tablet) - LAST QUALIFYING VISIT IN [facility]: 10/11/2018 - NEXT SCHEDULED VISIT: None - NEXT LAB APPOINTMENT: None Powered by Jibestream, Reference: [id number], 11/30/2018 11:38:13 AM CDT, Pool: PETER JEFFERY RN ([id number]) Interface, Out userADgents Prov Query - 11/30/2018 11:38 AM CDT The following lab order(s) may be [...] tests.; this will dictate followup. Interface, Out Surescripts Prov Query - 11/30/2018 11:38 AM CDT The following lab order(s) may be associated with the Result Note below: ALT (SGPT) Notes Recorded by Caryl Andrew RN on 03/01/2018 at 8:00 AM Patient notified and transferred to scheduling. ...Danielle Andrew RN 03/01/2018 8:00 AM ------ Notes Recorded by Placido Ott MD on 02/26/2018 at 6:47 PM Phone: labs ok except vitamin B12 level is low, should be treated initially with b12 injections: weekly x 4, then monthly x 5 with recheck of labs at that time, probably change to oral form of med. Injection room notified, he should schedule with them. Placido Ott MD 02/26/2018 6:47 PM Interface, Out [employer] OptionsriSigma Force Prov Query - 11/30/2018 11:38 AM CDT The following lab order(s) may be associated with the Result Note below: BASIC METABOLIC PANEL Notes Recorded by Caryl Andrew RN on 03/01/2018 at 8:00 AM Patient notified and transferred to scheduling. ...Danielle Andrew RN 03/01/2018 8:00 AM ------ Notes Recorded by Placido Ott MD on 02/26/2018 at 6:47 PM Phone: labs ok except vitamin B12 level is low, should be treated initially with b12 injections: weekly x 4, then monthly x 5 with recheck of labs at that time, probably change to oral form of med. Injection room notified, he should schedule with them. Placido Ott MD 02/26/2018 6:47 PM documented in this encounter Plan of Treatment Not on filedocumented as of this encounter Results Complete Blood Count-No Diff (04/20/2019 4:31 PM SUPERVISOR CALIBRATION) P athologist Signature WBC 7.7 3.5 - 10.5 04/20/2019 [facility] x10(9)/L 4:37 PM SUPERVISOR CALIBRATION [address] RBC 5.02 4.32 - 04/20/2019 [facility] 5.72 4:37 PM SUPERVISOR CALIBRATION [address] x10(12)/L Hemoglobin 15.6 13.5 - 04/20/2019 [facility] 17.5 g/dL 4:37 PM SUPERVISOR CALIBRATION [address] HCT 48.1 38.8 - 04/20/2019 [facility] 50.0 % 4:37 PM SUPERVISOR CALIBRATION [address] MCV 95.8 80.0 - 04/20/2019 [facility] 100.0 fL 4:37 PM SUPERVISOR CALIBRATION [address] MCH 31.1 27.6 - 04/20/2019 [facility] 33.3 pg 4:37 PM SUPERVISOR CALIBRATION [address] MCHC 32.4 31.5 - 04/20/2019 [facility] 35.2 g/dL 4:37 PM SUPERVISOR CALIBRATION [address] RDW 13.6 11.9 - 04/20/2019 [facility] 15.5 % 4:37 PM SUPERVISOR CALIBRATION [address] Platelets 178 150 - 450 04/20/2019 [facility] x10(9)/L 4:37 PM SUPERVISOR CALIBRATION [address] Automated NRBC 0 <=0 /100 04/20/2019 [facility] WBC 4:37 PM SUPERVISOR CALIBRATION [address] Specimen Anatomical Collection Method / Collection Time Recei anisa Time (Source) Location / Volume Laterality Blood Venipuncture / 04/20/2019 4:31 04/20/2019 4:31 Unknown PM SUPERVISOR CALIBRATION PM SUPERVISOR CALIBRATION Placido Ott MD LAB_1 Performing Organization Address City/State/ZIP Code Phon e Number [facility] [address] [place] [address] [address] [facility] [address] [place], [place] [address] [phone] documented in this encounter Visit Diagnoses Diagnosis Encounter for long-term (current) use of medications - Primary Encounter for long-term (current) use of other medications documented in this encounter Care Teams Hardwood Sawyer Relationship Specialty Start Date End Date Placido Ott MD PCP - General Internal Medicine 10/26/17 10/17/21 [address] [place] [address] documented as of this encounter
--- OUTSIDE RECORDS SUMMARY | 2022-02-24 12:20 | XMS_ITS | Encounter Summary ---
:1935 Author Organization [facility] Address [address], [place] [address] Care Team Providers Name Role Phone Shelly Ott MD Primary Care Provider Reason for Visit Reason Comments Refill allopurinol (ZYLOPRIM) 100 M G tablet [Pharmacy Med Name: ALLOPURINOL 100MG TABLETS] Encounter Details Date Type Department Care Team Description 11/30/2018 Refill [facility] Shelly Ott Re fill (allopurinol [place] [facility] anjelica Spence MD (ZYLOPRIM) 100 MG [address] tablet [[place] [address] [address] Name: ALLOPURINOL 100MG [phone] [place], [place] TABLETS]) [id number] Social History Tobacco Use Types Packs/Day Years [...] encounter Nursing Notes Adelaide Rehman RN - 12/02/2018 11:28 AM CDT Medication(s) approved by RN per Refill Protocol/Standing Order. Adelaide Rehman RN 12/02/2018, 11:28 AM Interface, Out Surescripts Prov Query - 11/30/2018 11:38 AM CDT allopurinol (ZYLOPRIM) 100 MG tablet [Pharmacy Med Name: ALLOPURINOL 100MG TABLETS] Endocrinology: Gout Agents - Allopurinol -> GFR ([place]) was found, but the result could not be read. -> Refill x 3 months (courtesy refill, overdue for a(n) HCT check, HGB check, PLT check, RBC check, RDW check and WBC check) Last qualifying visit: 10/11/2018 (in [facility]) Next scheduled visit: None Last ordered by SHELLY OTT (272 days ago) QTY: 90, Refills: 2, Sig: take 1 tablet by mouth every day (unchanged) Cr: 1.23 mg/dL on 02/26/2018 ALT: 27 U/L on 02/26/2018 HGB: 15.1 g/dL on 09/15/2017 GFR ([place]): Taken on 02/26/2018 HCT: 44.7 % on 09/15/2017 Age: 83 PLT: 243 k/cmm on 09/15/2017 RBC: 4.88 m/cmm on 09/15/2017 RDW: 13.5 % on 09/15/2017 WBC: 7.3 k/cmm on 09/15/2017 Powered by Kngine, Reference: [id number], 11/30/2018 11:38:12 AM CDT, Pool: PETER JEFFERY RN ([id number]) Interface, Out SkyGiraffe Prov Query - 11/30/2018 11:38 AM CDT [...] tests.; this will dictate followup. Interface, Out PrivacyProtector Query - 11/30/2018 11:38 AM CDT The [...] Ott MD 02/26/2018 6:47 PM Interface, Out SkyGiraffe Prov Query - 11/30/2018 11:38 AM CDT [...] on filedocumented in this encounter Care Teams Desizing Pad Operator Relationship Specialty Start Date End Date Shelly Ott MD PCP - General Internal Medicine 10/26/17 10/17/21 [address] [place] [address] documented as of this encounter
--- OUTSIDE RECORDS SUMMARY | 2022-02-24 12:20 | XMS_ITS | Encounter Summary ---
:1935 Author Organization [facility] Address [address], [place] [address] Care Team Providers Name Role Phone Placido Ott MD Primary Care Provider Reason for Visit Reason Onset Date Comments Testing emg EMG RESULTS 06/22/2018 Procedure/Equipment (Routine) - Closed Specialty Diagnoses / Procedures Referred By Contact Refer red To Contact Diagnoses Abnormality of gait due to impairment of balance Lianne Feldman MD [address] [place] [address] Referral ID Status Reason Start Date Expiration Date Visits Requ ested Visits Authorized [id number] Closed 05/27/2018 08/26/2019 1 1 Encounter Details Date Type Department Care Team Description 06/22/2018 Office Visit [facility] Kishore Gee Non specific abnormal [facility] Neurology MD Hanh electromyogram (EMG) [address] (Primary Dx) [place] [id number] Social History Tobacco Use Types Packs/Day Years [...] as of this encounter Patient Instructions Patient InstructionsKishore Gee MD - 06/22/2018 3:00 PM CST The results of your EMG exam will be sent to the health care provider who ordered your EMG. Results are usually available in 2-3 days. Your referring provider will discuss the EMG results with you. If you have any site tenderness from the EMG needle exam, feel free to use an ice pack on the area as well as any over the counter pain reliever such as Tylenol or Ibuprofen. If you have any further questions or concerns, please contact us. Call for the [facility] in [place]. OMA MAKER documented in this encounter Procedure Notes Kishore Gee MD - 06/22/2018 3:00 PM CSTAssociated Order(s): EMG REPORT Procedure(s): EMG REPORT Pre-Procedure Diagnose(s): Nonspecific abnormal electromyogram (EMG) Images from the original note were not included. [address] [place] [address] Electromyography Report Full Name: Zaid Rutledge Gender: Male Date of : 1935 Visit Date: 06/22/2018 09:41 Age: 83 Years 2 Months Old Examining Physician: Dr. Leopoldo Gee Referring Physician: Dr. Jose Feldman Height: 1.72 m Weight: 106 kg Visit Notes: Balance and gait problems. Impaired position and vibration senses in lower extremities on exam (DK). MRI L-spine 2012 showed at L1-2 moderate, right and severe, left foraminal stenoses, atL2-3 severe, left and moderate, right foraminal stenoses, at L3-4 moderate to severe central canal and severe, bilateral foraminal stenosis, at L4-5 moderate, bilateral foraminal stenoses. History of lumbar spine surgery in 2011 and 2016. Evaluate for lumbo-sacral radiculopathies and peripheral neuropathy. R Peroneal Motor NCS Nerve / Sites Rec. Site Ampl. Ref. Dur. Lat. Ref. Segments Ref. Dist. mV mV ms ms ms m/s mm R Peroneal - EDB Ankle EDB NR NR NR ?6.5 Ankle - EDB 85 Knee EDB 0.1 ?2.0 4.1 18.1 Knee - Ankle ?41.0 Acc Peron EDB NR NR NR Acc Peron - EDB R Peroneal Motor Ant Tib Nerve / Sites Rec. Site Ampl. Ref. Dur. Lat. Ref. Segments Ref. mV mV ms ms ms m/s R Peroneal - Ant Tibial Fib Head Ant Tib 2.1 10.1 3.9 ?6.7 Fib Head - Ant Tib Knee Ant Tib ?5.0 Knee - Fib Head ?43.0 R Peroneal - Ant Tibial: Tests to uncomfortable for patient! ???-??? - normal; abnormalities graded 1+ to 4+, 1- to 4-. Methods: Limb Temperature: FDI - ?32.0?? C/dorsal metatarsal I-II area - ?30.0?? C. Motor and sensory NCS with surface electrodes. F-wave: N ?8. Ulnar NCS: elbow flexed 70??-90??. Sensory NCS: Amplitude - baseline to peak, CV: calculated from SNAP onset. Needle exam: concentric electrodes. Summary of Findings: ??? Decreased compound muscle action potential of right extensor digitorum brevis muscle. ??? Decreased compound muscle action potential of right anterior tibialis muscle with normal latency. ??? Because the test procedures were painful for the patient, he requested termination of the study. Conclusions / Diagnostic Interpretation: 1. Incomplete study because patient requested termination of the study due to unbearable pain with nerve stimulation. 2. Abnormal EMG. 3. Decreased compound muscle action potentials of right extensor digitorum brevis and anterior tibialis muscles. Leopoldo Gee Electronically signed 22 June 2018 Leopoldo Gee M.D. Neurology, Fellow ELIGIO, Dipl. GRISELDA [email or web address] - [phone] Dx Code(s): R94.131 OMA MAKER documented in this encounter Plan of Treatment Not on filedocumented as of this encounter Procedures Procedure Name Priority Date/Time Associated Diagnosis Comme nts EMG REPORT Routine 06/22/2018 3:00 PM Nonspecific abnormal R esults for this DIPLOMA MAKER electromyogram (EMG) procedu re are in the results section. documented in this encounter Results EMG REPORT (06/22/2018 3:00 PM DIPLOMA MAKER) Narrative EXTERNAL RESULTS - 06/22/2018 3:00 PM CS Kishore Caldwell MD ? 06/22/2018 ??3:23 PM ? [address] [place] [address] Electromyography Report ?? Full Name: Zaid Rutledge Gender: Male Date of : [birth year] ?? Visit Date: 06/22/2018 09:41 Age: 83 Years 2 Months Old Examining Physician: Dr. Leopoldo Gee Referring Physician: Dr. Jose Feldman Height: 1.72 m Weight: 106 kg Visit Notes: Balance and gait problems. Impaired position and vibration senses in lower extremities on exam (DK). MRI L-spine 2011 showed at L1-2 moderate, right and severe, left foraminal stenoses, at L2-3 severe, left and moder ate, right foraminal stenoses, at L3-4 moderate to severe yesica tral canal and severe, bilateral foraminal stenosis, at L4-5 mo derate, bilateral foraminal stenoses. History of lumbar sp ine surgery in 2011 and 2015. Evaluate for lumbo-sacral radiculo pathies and peripheral neuropathy. ?? R Peroneal Motor NCS ?? Nerve / Sites Rec. Site Ampl. Ref. Dur. Lat. Ref. Segments Ref. Dist. ??mV mV ms ms ms ??m/s mm R Peroneal - EDB ?? Ankle EDB NR ??NR NR ?6.5 Ankle - ED B ??85 ?? Knee EDB 0.1 ?2.0 4.1 18.1 ??Knee - Ankle ?41.0 ? Acc Peron EDB NR ??NR NR ??Acc Peron - EDB ? R Peroneal Motor Ant Tib ?? Nerve / Sites Rec. Site Ampl. Ref. Dur. Lat. Ref. Segments Ref. ??mV mV ms ms ms ??m/s R Peroneal - Ant Tibial ?? Fib Head Ant Tib 2.1 ??10.1 3.9 ?6.7 Fib Head - Ant Tib ? Knee Ant Tib ???5.0 ?Knee - Fib Head ?43.0 ?? R Peroneal - Ant Tibial: Tests to uncomf ortable for patient! ? -? ? normal; abnormalities graded 1+ to 4+, 1- to 4-. Methods: ??Limb Temperature: FDI - ?32.0 ?? C/dorsal metatarsal I-II area - ?30.0?? C. Motor and sensory NCS with surface electrodes. ?? F-wave: N ?8. Ulnar NCS: elbow flexed 70 ??-90??. Sensory NCS: Amplitude - baseline to peak, CV: calcul ated from SNAP onset. Needle exam: concentric electrodes. Summary of Findings: ? Decreased compound muscle action poten tial of right extensor digitorum brevis muscle. ? Decreased compound muscle action poten tial of right anterior tibialis muscle with normal latency. ? Because the test procedures were painf ul for the patient, he requested termination of the study. Conclusions / Diagnostic Interpretation: ?? 1. Incomplete study because patient requ ested termination of the study due to unbearable pain with nerve stimulation. 2. Abnormal EMG. 3. Decreased compound m uscle action potentials of right extensor digitorum brevis and a nterior tibialis muscles. ?WKeshav Gee ?Electronic ally signed ?22 June 2018 ?Leopoldo Gee M.D. ?? Neurology, Fellow ELIGIO, Dipl. GRISELDA ??? [phone] ? Dx Code(s): ??R94.131 Kishore Gee MD DUM[employer]ES Performing Organization Address City/State/ZIP Code Phon e Number EXTERNAL RESULTS documented in this encounter Visit Diagnoses Diagnosis Nonspecific abnormal electromyogram (EMG ) - Primary documented in this encounter Care Teams Squeegee Tender Relationship Specialty Start Date End Date Placido Ott MD PCP - General Internal Medicine 10/26/17 10/17/21 [address] [place] [address] documented as of this encounter
--- OUTSIDE RECORDS SUMMARY | 2022-02-24 12:20 | XMS_ITS | Encounter Summary ---
:1935 Author Organization [facility] Address [address], [place] [address] Care Team Providers Name Role Phone Placido Ott MD Primary Care Provider Encounter Details Date Type Department Care Team Description 05/03/2018 Telephone [facility] Do eleazar Feldman MD [facility] [address] [place] [address] [place] [address] [phone] Social History Tobacco Use Types Packs/Day Years [...] documented as of this encounter Nursing Notes Cristina Souza RN - 05/05/2018 11:24 AM CST Pt informed of message below and states understanding. Cristina Souza RN 05/05/2018, 11:24 AM RVISOR BILLPOSTING Lianne Feldman MD - 05/04/2018 6:36 PM CST I do encourage him to do the EEG. If he would like to keep the May appointment, I'd like to evaluate his balance. Lianne Feldman MD, Neurology, 05/04/2018 at 6:38 PM RVISOR BILLPOSTING Anusha Cárdenas RN - 05/03/2018 3:04 PM CST Pt called, he is declining to do the EEG after doing some research on the internet and discussing with his family. He states he is willing to go through with testing if he has another spell. 1. Do you still need to see him on 05/27/18? Anusha Cárdenas RN 05/03/2018, 3:07 PM RVISOR BILLPOSTING Angela Neri - 05/03/2018 2:39 PM CST Miscellaneous Questions & FYIs [[facility] Physicist[facility]Appt [facility]: If this call is after 3 p.m., communicate to patient: If we are not able to get back to you by the end of the day and your symptoms worsen please contact the Careline at [phone] OR at .] What condition are you calling about? Need clarification on instructions from last appt and regarding test patient is suppose to have done. Is this a question/concern or an FYI? Question/Concern What is your question or concern? Have you recently been seen for this? Yes: Is it okay to leave a detailed message on your voicemail? Yes Angela Schafer Press Please route to: None (Care Team Pool if unable to handle) RVISOR BILLPOSTING documented in this encounter Plan of Treatment Not on filedocumented as of this encounter Visit Diagnoses Not on filedocumented in this encounter Care Teams Jacquard Loom Fixer Relationship Specialty Start Date End Date Placido Ott MD PCP - General Internal Medicine 10/26/17 10/17/21 [address] [place] [address] documented as of this encounter
--- OUTSIDE RECORDS SUMMARY | 2022-02-24 12:20 | XMS_ITS | Encounter Summary ---
:1935 Author Organization [facility] Address [address], [place] [address] Care Team Providers Name Role Phone Shelly Ott MD Primary Care Provider Reason for Visit Reason Comments Refill pravastatin (PRAVACHOL) 40 M G tablet [Pharmacy Med Name: PRAVASTATIN 40MG TABLETS] Encounter Details Date Type Department Care Team Description 01/13/2019 Refill [facility] Shelly Ott Re fill (pravastatin [place] Spence MD (PRAVACHOL) 40 MG Medicine [address] tablet [Pharmacy Med [address] [place] Name: PRAVASTATIN 40[address] [place] [address] [place], [place] TABLETS]) [phone] [id number] Social History Tobacco Use Types Packs/Day Years [...] encounter Nursing Notes Adelaide Rehman RN - 01/13/2019 11:51 AM CDT Medication(s) approved by RN per Refill Protocol/Standing Order. Adelaide Rehman RN 01/13/2019, 11:51 AM Interface, Out Surescripts Prov Query - 01/13/2019 11:51 AM CDT pravastatin (PRAVACHOL) 40 MG tablet [Pharmacy Med Name: PRAVASTATIN 40MG TABLETS] Cardiovascular: Antilipid - HMG-CoA Reductase Inhibitors -> The most recent order on 12/07/2018. -> HDL is abnormal (30 mg/dL lies outside 40.0 mg/dL - 70.0 mg/dL) -> LDL is abnormal (138 mg/dL is greater than 129.0 mg/dL) -> Refill x 9 months, qty: 90, refills: 2 (until due for an office visit) Last qualifying visit: 10/11/2018 (in [facility]ILY PRACTICE with LUIS A HORN) Next scheduled visit: None Last ordered by SHELLY OTT (402 days ago) QTY: 90, Refills: 3, Sig: take 1 tab by mouth daily at bedtime. (changed but equivalent) HDL: 30 mg/dL on 10/28/2016 LDL: 138 mg/dL on 10/28/2016 Total Cholesterol: 221 mg/dL on 10/28/2016 Triglycerides: 266 mg/dL on 10/28/2016 Powered by Gamar, Reference: [id number], 01/13/2019 11:51:12 AM CDT, Pool: PETER JEFFERY RN ([id number]) Interface, Out [employer] Query - 01/13/2019 11:51 AM CDT The following lab order(s) may be associated with the Result Note below: LIPID PANEL AND DIRECT LDL(IF NEEDED) Notes Recorded by Waqas Rodney MD on 10/28/2016 at 4:49 PM ifnorm PSA stable (actually lowest it has been in years). Good news. PSA twice a year. documented in this encounter Plan of Treatment Not on filedocumented as of this encounter Visit Diagnoses Diagnosis Hyperlipidemia, unspecified hyperlipidem ia type (HRC) documented in this encounter Care Teams Beauty Sales Advisor Relationship Specialty Start Date End Date Shelly Ott MD PCP - General Internal Medicine 10/26/17 10/17/[address] [place] [address] documented as of this encounter
--- OUTSIDE RECORDS SUMMARY | 2022-02-24 12:20 | XMS_ITS | Encounter Summary ---
:1935 Author Organization [facility] Address [address], [place] [address] Care Team Providers Name Role Phone Shelly Ott MD Primary Care Provider Reason for Visit Reason Comments Refill omeprazole (PRILOSEC) 20 MG capsule [Pharmacy Med Name: OMEPRAZOLE 20MG [place]] Encounter Details Date Type Department Care Team Description 02/28/2019 Refill [facility] Shelly Ott Re fill (omeprazole [place] [facility] anjelica Spence MD (PRILOSEC) 20 MG [address] capsule [[place] [address] [address] Name: OMEPRAZOLE 20MG [phone] [place], [place]]) [id number] Social History Tobacco Use Types Packs/Day Years [...] documented as of this encounter Nursing Notes Can [place] - 02/28/2019 11:58 AM CDT Medication Refill - Overdue Visit Called patient, was: successful in reaching patient We recently received a refill request on one of your medications. Your clinician would like to see you for a(n): office visit Patient scheduled appointment on: 04/20/19 (First available Dr. Ott appointment) Do you have enough medication to last until your appointment? No I will send this refill request to get you a temporary refill until your appointment. Can [place] Please route to: [facility] Refill RN to fill a 30 day refill. Shauna Dawson RN - 02/28/2019 10:05 AM CDT Last physical with Dr. Ott was 02/26/18 Will route message to [employer] to call pt and schedule appt. PLEASE TELL PT WE APPROVED HIS OMEPRAZOLE TO THE PHARMACY FOR 90 DAY SUPPLY Please route back to Refill team after pt schedules or declines to schedule. Route to provider if you are unable to contact pt after two attempts. Thank you DOES PT NEED A REFILL TO GET TO SCHEDULED APPT??? Shauna Dawson RN 02/28/2019, 10:05 AM Katharina Gill - 02/28/2019 9:57 AM CDT Patient called and stated that he is out of this medication. Please fill today. Pharmacy told him they sent a request for this medication about 10 days ago, but I see no record of that. Interface, Out Clearleap Prov Query - 02/28/2019 9:47 AM CDT omeprazole (PRILOSEC) 20 MG capsule [Pharmacy Med Name: OMEPRAZOLE 20MG [place]] Gastroenterology: Antiulcer - Proton Pump Inhibitors -> Refill x 9 months, qty: 180, refills: 2 (until due for an office visit) Last qualifying visit: 10/11/2018 (in FAMILY PRACTICE with LUIS A HORN) Next scheduled visit: None Last ordered by SHELLY OTT: 01/02/2018 (422 days ago) QTY: 180, Refills: 3, Sig: take 1 capsule by mouth twice daily 1 hour before a meal (unchanged) Age: 83 Powered by [employer], Reference: [id number], 02/28/2019 9:47:11 AM CDT, Pool: PETER JEFFERY RN ([id number]) documented in this encounter Plan of Treatment Not on filedocumented as of this encounter Visit Diagnoses Not on filedocumented in this encounter Care Teams Laborer Marine [employer] Relationship Specialty Start Date End Date Shelly Ott MD PCP - General Internal Medicine 10/26/17 10/17/21 [address] [place] [address] documented as of this encounter
--- OUTSIDE RECORDS SUMMARY | 2022-02-24 12:20 | XMS_ITS | Encounter Summary ---
:1935 Author Organization Formerly [facility] Address [address], [place] [address] Care Team Providers Name Role Phone Placido Ott MD Primary Care Provider Reason for Visit Reason Comments Medication Questions Patient would like a prescri ption for antibiotics before leaving on a trip on 08-28-18 Encounter Details Date Type Department Care Team Description 08/25/2018 Telephone [facility] Waqas Rodney dication Questions Beatriz Griffith MD (Patient would like a [facility] [address] prescription for [address] [place] [address] [place] leaving on a trip on [phone] [address] 08-28-18) Social History Tobacco Use Types Packs/Day Years [...] encounter Nursing Notes Deepika Arellano RN - 08/26/2018 8:[address] Rodney has prescribed Duricef and the Rx has been sent to his preferred pharmacy. Deepika Arellano RN 08/26/2018, 8:26 AM Detailed message left for patient stating that Dr. Rodney did prescribe an antibiotic and it has been sent to his preferred pharmacy. Patient to call back if he has any additional questions or concerns. Deepika Arellano RN 08/26/2018, 8:28 AM Tania Calloway RN - 08/25/2018 10:51 AM CDT Spoke with patient who states he is leaving for [place] on 08/28 and returning 09/21. States that last year had an infection in testicle. 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 Rodney has always prescribed antibiotic. Uses [facility]. Please advise. Tania Calloway RN 08/25/2018, 10:54 AM Rosemarie Vasquez - 08/25/2018 9:26 AM CDT Miscellaneous Questions & FYIs [Slate Mixer/Appt Center: If this call is after 3 p.m., communicate to patient: If we are not able to get back to you by the end of the day and your symptoms worsen please contact the Careline at [phone] OR at .] What condition are you calling about? Prescription for antibiotics Is this a question/concern or an FYI? Question/Concern What is your question or concern? Patient states that he is leaving on a trip on 08-28-18 and would like to get a prescription before that time for antibiotics. Patient states that he has done this before. Please call to discuss. Have you recently been seen for this? No Is it okay to leave a detailed message on your voicemail? Yes Rosemarie Vasquez ?? Please Warm Transfer/route to RNs if symptom based call. [Refer to Symptoms Indicating Need for Triage list[ ?? Please route to None OR Care Team Pool if unable to handle and not symptom based. ?? [CUSTOMER SALES CONSULTANT/RMA/LPNs: Please call the patient to gather additional details, as needed] documented in this encounter Plan of Treatment Not on filedocumented as of this encounter Visit Diagnoses Not on filedocumented in this encounter Care Teams Wildlife Conservation Officer Relationship Specialty Start Date End Date Placido Ott MD PCP - General Internal Medicine 10/26/17 10/17/21 [address] [place] [address] documented as of this encounter
--- OUTSIDE RECORDS SUMMARY | 2022-02-24 12:20 | XMS_ITS | Encounter Summary ---
:1935 Author Organization [facility] Address [address], [place] [address] Care Team Providers Name Role Phone Placido Ott MD Primary Care Provider Encounter Details Date Type Department Care Team Description 08/11/2018 [facility] Eileen Camejo Imbal ance (Primary Dx); [facility] PA-C Idiopathic peripheral neuropathy [address] [place], [place] [phone] [facility] [address] [place] [address] Social History Tobacco Use Types Packs/Day Years [...] Sign Reading Time Taken Comments Blood Pressure 115/67 08/11/2018 10:48 AM TRAINING INTERN Pulse 85 08/11/2018 10:48 AM TRAINING INTERN Temperature - - Respiratory Rate - - Oxygen Saturation - - Inhaled Oxygen Concentration - - Weight 105 kg (231 lb 6.4 oz) 08/11/2018 10:48 AM TRAINING INTERN Height - - Body Mass Index 35.44 08/03/2018 11:14 AM TRAINING INTERN documented in this encounter Patient Instructions Patient InstructionsEileen Camejo PA-C - 08/11/2018 10:30 AM CST Images from the original note were not included. Dr. Feldman says that the EMG was not definitive, but seems to point to probably peripheral neuropathy Peripheral Neuropathy Topic Overview What is peripheral neuropathy? Peripheral neuropathy is a problem that affects the peripheral nerves. These are the nerves that control your sense of touch, how you feel pain and temperature, and your muscle strength. Most of the time the problem starts in the fingers and toes. As it gets worse, it moves into the limbs, causing pain and loss of feeling in the feet, legs, and hands. When you have peripheral neuropathy, you may have less feeling in your fingers and toes. You may have trouble with your balance. It may be hard to do things that require coordination, such as walking or fastening buttons. What causes peripheral neuropathy? Doctors don't always know what causes peripheral neuropathy. It is often caused by other health problems. It can also run in families. The most common cause is diabetes. Having your blood sugar too high for too long a time can damage the nerves. Other problems can also cause peripheral neuropathy, such as: ?? Kidney problems. These can lead to toxic substances in the blood that damage nerves. ?? Vitamin deficiencies and alcoholism. Not getting enough nutrients, such as vitamin B-12, can damage nerves. Overuse of alcohol and not eating a healthy diet can lead to these vitamin deficiencies. ?? Infectious or inflammatory diseases, such as HIV or Guillain-Benítez?? syndrome. These diseases can damage the central and peripheral nerves. ?? Exposure to toxic substances, such as arsenic, or by certain medicines such as those used for chemotherapy. What are the symptoms? Symptoms can occur slowly over time. The most common ones are: ?? Numbness, tightness, and tingling, especially in the legs, hands, and feet. ?? Loss of feeling. ?? Burning, shooting, or stabbing pain in the legs, hands, and feet. Often the pain is worse at night. ?? Weakness and loss of balance. How is peripheral neuropathy diagnosed? It can be hard to diagnose peripheral neuropathy, because symptoms can vary. People who have diabetes need to get a complete foot exam every year. During the foot exam, the doctor will check for signs of this peripheral neuropathy. Your doctor will start by asking questions about: ?? Your symptoms. ?? Your medical history, including use of alcohol, risk of HIV infection, or exposure to toxic substances. ?? Your family's medical history, including nerve disease. Your doctor may also test your muscle strength and ability to feel touch, temperature, and pain. These tests include electromyography and nerve conduction tests. You may also have blood tests to find out if you have diabetes, vitamin deficiencies, thyroid disease, or kidney problems that might cause neuropathy. How is it treated? The focus of treatment for peripheral neuropathy is to relieve symptoms by treating the health problem that's causing it. For example, vitamin deficiency caused by overuse of alcohol can be treated by eating a healthy diet, taking vitamin supplements, and stopping alcohol use. If you have diabetes, controlling your blood sugar can slow neuropathy and may improve it. You may have physical therapy to increase muscle strength and help build muscle control. Yvit-tjp-rixyayn medicine can relieve mild nerve pain. Your doctor may also prescribe medicine to help with severe pain, numbness, tingling, and weakness. How can you care for yourself at home? Adopting healthy habits can reduce the effects of peripheral neuropathy. Be sure to eat a balanced diet, get regular exercise, avoid alcohol, and quit smoking. It's also a good idea to take care to avoid injury. ?? When your feet or legs feel numb, it's easier to lose your balance and fall. At home: ? Remove throw rugs and clutter. ? Install sturdy handrails on stairways. ? Put grab bars near your shower, bathtub, and toilet. ?? To protect your hands: ? Use pot holders, and avoid hot water when you are cooking. ? Always check your bath or shower using a part of your body that can feel temperature normally, such as your elbow. ?? Check your feet every day (or have someone else check for you) using this checklist: ? Look at all areas of your feet, including your toes. ? Use a handheld mirror or a magnifying mirror attached to the bathroom wall near the baseboard to inspect your feet. Radiculopathy: What You Need to Know Radiculopathy describes a range of symptoms produced by the pinching of a nerve root in the spinal column. The pinched nerve can occur at different areas along the spine (cervical, thoracic or lumbar). Symptoms of radiculopathy vary by location but frequently include pain, weakness, numbness and tingling. A common cause of radiculopathy is narrowing of the space where nerve roots exit the spine, which can be a result of stenosis, bone spurs, disc herniation or other conditions. Radiculopathy symptoms can often be managed with nonsurgical treatments, but minimally invasive surgery can also help some patients. NING INTERN documented in this encounter Progress Notes Eileen Camejo PA-C - 08/11/2018 10:30 AM CST Neurology Established Care Visit Reason for Visit: Imbalance/EMG results Primary Neurologist: Lianne Feldman MD HPI: 83 yo male here to review EMG. Unfortunately he was unable to complete study due to pain. Symptoms are pain in left leg-radiating and burning-outer thigh and into outer calf. Worse with sitting. Sometimes bad at night. Balance is bad. Feels unsteady. Ambulates with cane. Worse when barefoot or in stocking feet. Not describing paresthesias in feet. Current Outpatient Medications Medication Sig Note Dispense [...] 11 ??? allopurinol (ZYLOPRIM) 100 MG tablet TAKE 1 TABLET BY MOUTH EVERY DAY 90 Tablet 2 ??? amoxicillin (AMOXIL) 500 MG capsule 02/26/2018: Received from: External Pharmacy ??? aspirin 325 MG tablet Take 325 mg by mouth daily. ??? cyanocobalamin (YZPLUSYF75) 1000 MCG/ML injection 1000 mcg weekly x 4, then monthly x 5 ??? dorzolamide (AKA TRUSOPT) 2 % eye drop solution Apply or instill 1 Drop into both eyes two timesa day. ??? dorzolamide-timolol (COSOPT) 22.3-6.8 MG/ML eye drop solution INT 1 GTT IN OU TID 11/13/2017: Received from: External Pharmacy 8 ??? fluticasone (AKA FLONASE) 50 MCG/ACT nasal solution Apply or instill 2 Sprays into both nostrilstwo times a day. ??? montelukast (SINGULAIR) 10 MG tablet Take 10 mg by mouth every evening. ??? Multiple Vitamins-Minerals (ICAPS AREDS FORMULA OR) 1 Tab two times a day. ??? omeprazole (PRILOSEC) 20 MG capsule TAKE 1 CAPSULE BY MOUTH TWICE DAILY 1 HOUR BEFORE A MEAL 180Capsule 3 ??? pravastatin (PRAVACHOL) 40 MG tablet Take 1 Tab by mouth daily at bedtime. 90 Tab 3 Current Facility-Administered Medications Medication Dose Route Frequency Provider Last Rate Last Dose ??? cyanocobalamin (OVLQIEXA22) injection 1,000 mcg 1,000 mcg Intramuscular Other (See Comments) Placido Ott MD 1,000 mcg at 04/28/18 1513 Allergies for Zaid Rutledge Status Agent Date Noted Reaction Type Active EXCEDRIN EXTRA STRENGTH [YPDIGNE-[id number]] 01/16/2016 Anaphylaxis Allergy Active MOLDS & SMUTS 04/28/2018 Breathing Difficulty Allergy Active BANANA 08/01/2013 Other, see comments Intolerance Active LEVAQUIN [LEVOFLOXACIN] 02/26/2018 Other, see comments Intolerance Social History Socioeconomic History ??? Marital status: Spouse name: Not on file ??? Number of children: Not on file ??? Years of education: Not on file ??? Highest education level: Not on file Occupational History ??? 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 Financial resource strain: Not on file ??? Food insecurity: Worry: Not on file Inability: Not on file ??? Transportation needs: Medical: Not on file Non-medical: Not on file Tobacco Use ??? Smoking status: Former Smoker Last attempt to quit: 12/24/1997 Years since quittin.6 ??? Smokeless tobacco: Never Used Substance and Sexual Activity ??? Alcohol use: Yes Alcohol/week: 4.2 oz Types: 7 Standard drinks or equivalent per week Comment: moderate ??? Drug use: No ??? Sexual activity: Not on file Lifestyle ??? Physical activity: Days per week: Not on file Minutes per session: Not on file ??? Stress: Not on file Relationships ??? Social connections: Talks on phone: Not on file Gets together: Not on file Attends restorationist service: Not on file Active member of club or organization: Not on file Attends meetings of clubs or organizations: Not on file Relationship status: Not on file ??? Intimate partner violence: Fear of current or ex partner: Not on file Emotionally abused: Not on file Physically abused: Not on file Forced sexual activity: Not on file Other Topics Concern ??? Exercise Yes Comment: min. ??? Seat Belt Yes Comment: 100 % Social History Narrative Spool Salvager. Review of Systems CONSTITUTIONAL: Negative EYES: no visual blurring, no double vision, no glaucoma, no cataracts, no eye pain, no color blindness ENT: no abnormally frequent URIs, no decrease in hearing, no persistently sore throat, no tinnitus, no vertigo RESPIRATORY: no shortness of breath, no cough, no sputum CARDIOVASCULAR: no palpitations, no irregular heart beats, no chest pain, no exertional chest pain or pressure GASTROINTESTINAL: normal appetite, no dysphagia, no nausea, no abdominal pain, no melena GENITOURINARY: no dysuria, no frequency, no hematuria MUSCULOSKELETAL: no nocturnal cramping, (Positive for weakness, muscle pains and chronic or episodicback pain) SKIN: no rash, no itch, no scaling, no hair changes, no nail changes NEUROLOGIC: no numbness or tingling of hands, no numbness or tingling of feet, no syncope Imaging/Labs: Summary of Findings: ?? Decreased compound muscle action potential of right extensor digitorum brevis muscle. ?? Decreased compound muscle action potential of right anterior tibialis muscle with normal latency. ?? Because the test procedures were painful for the patient, he requested termination of the study. ?? Conclusions / Diagnostic Interpretation: 1. Incomplete study because patient requested termination of the study due to unbearable pain with nerve stimulation. 2. Abnormal EMG. 3. Decreased compound muscle action potentials of right extensor digitorum brevis and anterior tibialis muscles. Physical Exam: BP 115/67 Pulse 85 Wt 231 lb 6.4 oz (105 kg) BMI 35.44 kg/m?? NEUROLOGIC EXAMINATION: Mental status: Alert and follows multi-step requests with ease. Speech is fluent and with appropriate content. The patient provides a cogent history. Recall of events is registered account administrator and coherent. Fund of knowledge is normal for education and occupation. Attention and concentration are within normal limitswhen executing all maneuvers of the detailed neuro exam. Motor exam: Bulk and tone are normal for age and state of conditioning. No fasciculations are present. Strength is 5/5 and symmetric in all the major muscle groups of the upper and lower extremities-except for left hip flexion 4/5 Reflexes: Reflexes absent and symmetric in triceps, biceps, brachioradialis, knee jerks, ankle jerks. Plantar responses were withdrawal. Clonus testing negative. Sensory: Light touch and pinstick intact in lower and upper extremities; No detection of vibration below the knees bilaterally; position sense intact bilaterally Station and gait: Patient stands with partial forward flexed position, slightly to left. He ambulates with cane and hitches his right hip when he walks. Wide based. Assessment/Plan: ICD-10-CM 1. Imbalance R26.89 2. Idiopathic peripheral neuropathy G60.9 EMG inconclusive due to partial study. Findings on the right side, however, were abnormal. Symptoms suggestive more of a left radiculopathy. Though balance issues, as well as mild abnormal subjective sensation changes on the right suggestive of peripheral neuropathy. Posture and body mechanics also play a role in imbalance. Continue with PT-pool therapy incorporating balance testing. Follow up encouraged with Dr. Sheffield and possible steroid injections. Return to see Dr. Feldman in 6 months for follow up. Eileen Camejo PA-C 08/11/2018, 2:19 PM NING INTERN documented in this encounter Nursing Notes Amber Jasso LPN - 08/11/2018 10:30 AM CST Zaid Rutledge is a 83 y.o. old male here for EMG results follow up/headaches. Amber Jasso LPN 08/11/2018, 10:47 AM NING INTERN documented in this encounter Plan of Treatment Not on filedocumented as of this encounter Visit Diagnoses Diagnosis Imbalance - Primary Abnormality of gait Idiopathic peripheral neuropathy Unspecified hereditary and idiopathic pe ripheral neuropathy documented in this encounter Care Teams Preschool Teacher Relationship Specialty Start Date End Date Placido Ott MD PCP - General Internal Medicine 10/26/17 10/17/21 [address] [place] [address] documented as of this encounter
--- OUTSIDE RECORDS SUMMARY | 2022-02-24 12:20 | XMS_ITS | Encounter Summary ---
:1935 Author Organization [facility] Address [address] [place] [address] Care Team Providers Name Role Phone Placido Ott MD Primary Care Provider Encounter Details Date Type Department Care Team Description 06/22/2018 Lab Visit [facility] Impair ed joint position sense; [facility] Decreased peripheral vibrato ry sense; [address] [place] [address] Social History Tobacco Use Types Packs/Day [...] documented as of this encounter Progress Notes Cristina Souza RN - 06/22/2018 2:00 PM CST Message below sent to pts online account. Cristina Souza RN 06/23/2018, 3:42 PM Normal labs. EULOGIO Evans FEN HOUSE SUPERVISOR documented in this encounter Plan of Treatment Not on filedocumented as of this encounter Procedures Procedure Name Priority Date/Time Associated Diagnosis Comme nts PROTEIN ELP (SERUM) Routine 06/22/2018 2:07 PM Impaired joint Results for this STEFFEN HOUSE SUPERVISOR position sense procedure are in Decreased peripheral the res ults vibratory sense section. IMMUNOFIXATION, Routine 06/22/2018 2:07 PM Impaired joint Resu lts for this SERUM (IMMUNO ELP) STEFFEN HOUSE SUPERVISOR position sens e procedure are in Decreased peripheral the res ults vibratory sense section. documented in this encounter Results Protein ELP (Serum) (06/22/2018 2:07 PM STEFFEN HOUSE SUPERVISOR) Component Value Ref Test Analysis Performed At [facility] Range Method Time Signature Total Protein 7.0 6.4 - [facility] g/dl Albumin 3.9 3.4 - [facility] g/dl Alpha 1 0.2 0.2 - [facility] g/dl Alpha 2 0.7 0.5 - [facility] g/dl Beta 1.1 0.6 - [facility] g/dl Gamma 1.1 0.7 - [facility] g/dl Monoclonal Viral 0.0 0.0 [facility] g/dl [facility] Interpretation No monoclonal [facility] protein is LAB[facility]ATOR[facility] detectable in the serum. Signed out by [facility] Laboratory Specimen Anatomical Collection Method Collection Time Receive d Time (Source) Location / / Volume Laterality 06/22/2018 2:07 PM 9 2:34 STEFFEN HOUSE SUPERVISOR PM STEFFEN HOUSE SUPERVISOR Narrative [facility] - 06/23/2018 2:[address] Performed at [facility], [address] [place] [address], [place], [place] ??[id number] Lianne Feldman MD LAB_1 Performing Organization Address City/State/ZIP Code Phon e Number [facility] [phone] Immunofixation, Serum (Immuno ELP) (06/22/2018 2:07 PM STEFFEN HOUSE SUPERVISOR) Component Value Ref Test Analysis Performed At [facility] gist Range Method Time Signature Immunofixation No monoclonal [facility] protein is LABORATORIES detectable. Signed out by [facility] Laboratory Specimen Anatomical Collection Method Collection Time Receive d Time (Source) Location / / Volume Laterality 06/22/2018 2:07 PM 9 2:34 STEFFEN HOUSE SUPERVISOR PM STEFFEN HOUSE SUPERVISOR Narrative [facility] - 06/23/2018 11:50 AM STEFFEN HOUSE SUPERVISOR Performed at [facility], [address] [place] [address] ??[id number] Lianne Feldman MD LAB_1 Performing Organization Address City/[facility]/ZIP Code Phon e Number [facility] [phone] documented in this encounter Visit Diagnoses Diagnosis Impaired joint position sense Decreased peripheral vibratory sense Disturbance of skin sensation [place] reaction [place] documented in this encounter Care Teams Monorail Charger Operator Relationship Specialty Start Date End Date Placido Ott MD PCP - General Internal Medicine 10/26/17 10/17/21 [address] [place] [id number] documented as of this encounter
--- OUTSIDE RECORDS SUMMARY | 2022-02-24 12:20 | XMS_ITS | Encounter Summary ---
:1935 Author Organization [facility] Address [address], [place] [address] Care Team Providers Name Role Phone Placido Ott MD Primary Care Provider Encounter Details Date Type Department Care Team Description 07/10/2018 Telephone [facility] Do eleazar Feldman MD [facility] [address] [place] [address] [place] [address] [phone] Social History Tobacco Use Types Packs/Day Years [...] encounter Nursing Notes Cristina Souza RN - 07/14/2018 2:32 PM CST Pt informed of message below and states understanding. Pt is in agreement with plan. Pt will call back and schedule appt. Cristina Souza RN 07/14/2018, 2:33 PM ALT PAVING FOREMAN Cristina Souza RN - 07/14/2018 2:26 PM CST Left message to call back & discuss w/ RN. Transfer to Christiano Evans RN ext [phone]. Cristina Souza RN 07/14/2018, 2:27 PM ALT PAVING FOREMAN Cristina Souza RN - 07/12/2018 1:27 PM CST Left message to call back & discuss w/ RN. Transfer to Christiano Evans RN ext [phone]. Cristina Souza RN 07/12/2018, 1:27 PM ALT PAVING FOREMAN Lianne Feldman MD - 07/10/2018 2:52 PM CST History / background for providers: ?? Patient had EMG ?? Minimal testing was too painful, test aborted early Neurology Care Team: Please call patient Zaid Rutledge and discuss the followin. Sorry to see he had so much trouble with the EMG. 2. He's had the blood testing done to evaluate for the most common causes of neuropathy, we found the somewhat low B12. I don't think it would be beneficial to do more testing at this time, though I would like to monitor this. 3. Please have him schedule an appt for f/u neuroapthy and balance for about 6 months from now. Thanks. Lianne Feldman MD,Neurologist [facility] 07/10/2018, 2:52 PM ALT PAVING FOREMAN documented in this encounter Plan of Treatment Not on filedocumented as of this encounter Visit Diagnoses Not on filedocumented in this encounter Care Teams Coppersmith Apprentice Relationship Specialty Start Date End Date Placido Ott MD PCP - General Internal Medicine 10/26/17 10/17/[address] [place] [address] documented as of this encounter
--- OUTSIDE RECORDS SUMMARY | 2022-02-24 12:20 | XMS_ITS | Encounter Summary ---
:1935 Author Organization [facility] Address [address], [place] [address] Care Team Providers Name Role Phone Placido Ott MD Primary Care Provider Reason for Visit Reason Comments Medication Questions Encounter Details Date Type Department Care Team Description 08/26/2018 Telephone [facility] Waqas Rodney dication Questions [facility] MD [facility] [address] [place] [address] [place], [place] [phone] Social History Tobacco Use Types Packs/Day Years [...] Nursing Notes Deepika Arellano RN - 08/26/2018 11:19 AM CDT Returned call to patient and he is aware that the antibiotic has been called into his preferred pharmacy. Patient states that he has a rash on his leg and would like Cortisone cream. Informed patient that he would need to see his PCP for evaluation and possible medication. Patient in agreement of plan and verbalizes understanding. Deepika Arellano RN 08/26/2018, 11:27 AM Comfort [facility] - 08/26/2018 10:51 AM CDT Patient returned call. Please contact at number listed above. Zaid Rutledge needs cortisone cream (prescription) we want to add to what he has now. Best time to reach patient: right now Ok to leave a detailed message:yes [facility]............... 08/26/2018 10:51 AM Deepika Arellano RN - 08/26/2018 10:34 AM CDT Message left for patient to return call to discuss further. Deepika Arellano RN 08/26/2018, 10:34 AM Elayne De La Cruz - 08/26/2018 8:36 AM CDT Reason for call? Patient's is calling back and has additional questions on patient's prescriptions. Please refer to encounter on 08/25/18 Best time to reach you? Anytime Ok to leave a detailed message? No Elayne De La Cruz ....................................08/26/2018 8:36 AM documented in this encounter Plan of Treatment Not on filedocumented as of this encounter Visit Diagnoses Not on filedocumented in this encounter Care Teams Obstetrics Nurse Relationship Specialty Start Date End Date Placido Ott MD PCP - General Internal Medicine 10/26/17 10/17/21 [address] [place] [address] documented as of this encounter
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
--- OUTSIDE RECORDS SUMMARY | 2022-02-24 12:20 | XMS_ITS | Encounter Summary ---
:1935 Author Organization [facility] Address [address] [address] Care Team Providers Name Role Phone No Primary/Referring, Phy Primary Care Provider Unavailable Encounter Details Date Type Department Care Team Description 07/23/2018 Correspondence [facility] Waqas Rodney, [facility] [address] [facility] [place] [address] [place], [place] [phone] (Wo rk) Social History Tobacco Use Types [...] on filedocumented in this encounter Care Teams Client Solutions Specialist Relationship Specialty Start Date End Date No Primary/Referring, Phy PCP - General 12/11/21 documented as of this encounter
--- OUTSIDE RECORDS SUMMARY | 2022-02-24 12:20 | XMS_ITS | Encounter Summary ---
:1935 Author Organization [employer] Address [address], [place] [address] Care Team Providers Name Role Phone Placido Ott MD Primary Care Provider Reason for Referral Procedure/Equipment (Routine) - Closed Specialty Diagnoses / Procedures Referred By Contact Refer red To Contact Physical Therapy Diagnoses Spell of generalized weakness Lianne Feldman MD Physical Therapy [address] [place] [address] [place] [address] Phone: Fax: Referral ID Status Reason Start Date Expiration Date Visits Requ ested Visits Authorized [id number] Closed 04/28/2018 07/28/2019 1 1 Scheduling Instructions Your provider has recommended an appoint ment for an Electroencephalogram (EEG) at [facility] [place]. You may call [phone] to schedule your appointment. If you prefer, a manufacturing scheduler will contact you within the ut xt 3 business days to assist you in setting up this appointment. We suggest you call your health insurance company about your coverage and benefits for this appointme nt. [facility] Reason for Visit Reason Comments ATAXIA atherosclerosis, htn, B12 wa s low and started injections with PCP Encounter Details Date Type Department Care Team Description 04/28/2018 Office Visit [facility] Lianne Feldman of generalized Beatriz Neurology MD Michaela weakness (Primary Dx) [address] [place] [phone] [phone] [place] [id number] Social History Tobacco Use Types Packs/Day Years [...] Sign Reading Time Taken Comments Blood Pressure 138/83 04/28/2018 2:06 PM [facility] Pulse 74 04/28/2018 2:06 PM [facility] Temperature - - Respiratory Rate - - Oxygen Saturation - - Inhaled Oxygen Concentration - - Weight 106.1 kg (233 lb 12.8 oz) 04/28/2018 2:06 PM [facility] Height - - Body Mass Index 35.81 02/26/2018 9:49 AM CDT documented in this encounter Patient Instructions Patient InstructionsKoLianne melissa MD - 04/28/2018 1:45 PM CST Neurology clinic visit, 04/28/2018, with Lianne Feldman MD ASSESSMENT 04/28/2018: ?? Another spell spring 2017, probably a total of 4 now. ?? The list of things that cause sudden onset spells like that is somewhat short. Seizure is on thatlist and it's something we should check out. ?? If this was a TIA, it does not change what we do. PLAN: Testing you will need: ?? Electroencephalogram: You are being referred for a brain-wave test called an EEG at [facility] EEG /Neurology Department. [phone] is the phone number to make the appointment.. Your neurology treatment plan: ?? Continue pravastatin, aspirin ?? Exercise as best you can. Information flow (medical records outside our system, communicating between healthcare providers, coordinating your care, etc.): ?? I will send a copy of the clinic note from today's visit to Placido Ott MD . Follow-up with Neurology: ?? Please schedule an appointment with me for after the EEG, about 3 or 4 weeks. Best wishes for your health and wellbeing, Lianne Feldman MD, Neurologist, 04/28/2018 A note about test results: Complex or critical testing deserve a face to face discussion and are almost always discussed at a followup clinic appointment (especially brain MRIs). If there are serious findings requiring urgent follow up, you will be called as soon as reasonably possible with a plan to address them. Other less critical test results are sent to you by US mail or sent via [facility]. Your test results are reviewed often, and if multiple tests are ordered the results trickle in one or two at a time. It can take up to 10 business days to get all your test results together. If you were to receive test results outside an appointment and have not heard from me in 2 weeks regarding testresults please call. If a future apointment is needed ?? Schedule it before you leave the clinic today if at all possible. Otherwise please call [phone] for an appointment. ?? Due to high demand the wait time to see a neurologist can be very long (three or more months), soplease schedule your appointment well in advance. ?? If you cannot get a time that satisfies you, please let us know what times work for you and we will do our best to accommodate you based on the urgency of your medical needs. ?? Please plan ahead if you have leisure travel such as going south for the winter or travel a long distance for appointments if you do not live in this geographic community. Medications - Our pharmacies, both the [facility] here at [facility] and [facility] are great places to get your meds. They are friendly, helpful, and really a great part of our community. [id number] [facility] documented in this encounter Progress Notes Hinojosa AleksandraAFTAB - 04/28/2018 1:45 PM CST View Detailed Reports View Condensed Results Report Result Notes for ALT (SGPT) Notes Recorded by Caryl Andrew [...] them. Placido Ott MD 02/26/2018 6:47 PM ALT (SGPT) Order: [id number] Collected: 02/26/2018 11:20 View Full Report Ref Range & Units 2mo ago ALT (SGPT) 0 - 55 U/L 27 Narrative Performed at [facility], [address] [place] [address] Result Notes for TSH, SENSITIVE with Free T4, Free T3 if needed Notes Recorded by Caryl Andrew RN on [...] them. Placido Ott MD 02/26/2018 6:47 PM TSH, SENSITIVE with Free T4, Free T3 if needed Order: [id number] Collected: 02/26/2018 11:20 View Full Report Ref Range & Units 2mo ago TSH, with Reflex 0.30 - 4.50 uIU/ml 0.78 Narrative Performed at [facility], [address] [place] [address] Result Notes for Vitamin B12 Only Notes Recorded by Caryl Andrew RN on [...] them. Placido Ott MD 02/26/2018 6:47 PM Vitamin B12 Only Order: [id number] Collected: 02/26/2018 11:20 View Full Report Ref Range & Units 2mo ago Vitamin B12 213 - 816 pg/ml 233 Narrative Performed at [facility], [address] ??[id number] Result Notes for Basic Metabolic Panel Notes Recorded by Caryl Andrew RN on [...] them. Placido Ott MD 02/26/2018 6:47 PM Contains abnormal dataBasic Metabolic Panel Order: [id number] Collected: 02/26/2018 11:20 View Full Report Ref Range & Units 2mo ago Sodium 136 - 145 mmol/L 140 Potassium 3.5 - 5.1 mmol/L 4.0 Chloride 98 - 109 mmol/L 106 CO2 20 - 29 mmol/L 26 Anion Gap (calc.) 7 - 16 mmol/L 8 Glucose 70 - 180 mg/dl 90 Calcium 8.4 - 10.4 mg/dl 9.2 BUN 7 - 26 mg/dl 16 Creatinine 0.73 - 1.18 mg/dl 1.23High GFR, Estimated >60 ml/min/1.73m2 54Low Comment: The National Kidney Disease Education Program suggests measuring ??Cystatin C in patients with eGFRcrea of 45 to 59 ml/min/1.73^2 who do ??not have other markers of kidney damage (i.e.,elevated urine ??Albumin/Creatinine Ratio or a prior Cystatin C confirming the presence ??of Chronic Kidney Disease.) GFR, Est., If Black >60 ml/min/1.73m2 >60 Narrative Performed at [facility], [address] [place] [address] Result Notes for Lipid Panel and Direct LDL(If Needed) Notes Recorded by Waqas Rodney MD on 10/28/2016 at 4:49 PM ifnorm PSA stable (actually lowest it has been in years). Good news. PSA twice a year. Contains abnormal dataLipid Panel and Direct LDL(If Needed) Order: [id number] Collected: 10/28/2016 14:29 View Full Report Ref Range & Units 1yr ago Hours Fasting hours Information Not Given Cholesterol 0 - 199 mg/dl 221High Triglyceride 0 - 149 mg/dl 266High HDL >40 mg/dl 30Low LDL, Calc. 0 - 129 mg/dl 138High Non HDL Chol, Calc mg/dl 191 Narrative Performed at [facility], [address] [place] [address] [facility] Lianne Feldman MD - 04/28/2018 1:45 PM CST NEUROLOGY FOLLOW-UP VISIT 04/28/2018 PATIENT: Zaid Gladis Rutledge Background Please note this document was either typed by me or prepared with voice recognition software which may result in multiple types of errors. Please contact me if clarification is needed. [phone]. Today's visit is with neurologist Lianne Feldman MD, [facility] Primary care doctor: Placido Ott MD Cc: - Zaid Rutledge is a 83 y.o. old male who returns today for neurological followup. 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 He was seen for initial consultation October 2016, and there was suspicion for possible normal pressure hydrocephalus, so underwent high volume spinal tap October 28, 2016. Neurologic issues are shown below: 1. Three spells of diplopia with spinning/vertiginous sensation, headache as of October 2016. Duration inconsistent with M??ni??re's disease. No dissection. Consistent with TIA. 2. Intracranial atherosclerosis, left posterior cerebral artery 3. Ventriculomegaly, suggestive of normal pressure hydrocephalus, minimal response to large volume spinal tap. 4. Multifactorial gait impairment: Wide-based ataxia, absent vibration sense, possibly late effect of spinal stenosis. 5. Paraneurological: Stroke risk factors are stenosis of left posterio cerebral artery, age, high cholesterol (needs to be treated), high blood pressure, Lack of exercise is also a risk factor for stroke (Lif[employer] 2x/week). Biomechanics of gait impaired by axial spine issues. He was last seen by me in November 2016, the medical decision making, assessment, and plan from that visit is shown below for reference. MEDICAL DECISION MAKING 04/22/2017 : ?? No evidence of normal pressure hydrocephalus ?? Gait mostly affected by biomechanics due to chronic axial back pain in the face of a history lumbar spinal stenosis (surgical decompression year 2015). If his gait continues to deteriorate, will need to evaluate for neuropathy and recurrent lumbar spinal stenosis (absent vibr sense and absent anklejerks). Recommend primary doctor monitor this and consider further musculoskeletal evaluation, ,therapies as indicated. ?? No recurrence of dizzy spells, attributed to TIA ?? Intracranial atherosclerosis, discussed hyperlipidemia and indication for high intensity statin therapy. ?? Hypertension - he wanted to decrease meds and stop lisinopril, I advised against this. DIAGNOSIS CODES: 1. Vertebrobasilar artery syndrome 2. 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 Gastroesophageal reflux disease, esophagitis presence not specified ORDERS PLACED: Orders Placed This Encounter ??? Lipid Panel and Direct LDL(If Needed) ?? The plan, and assessment in laymen's terms as provided to the patient is shown below. ASSESSMENT 04/22/2017 : ?? From a neurological standpoint your gait looks really good. The biggest effect I saw today was the biomechanics, the back is leaning forward. ?? Falls are really important to prevent - hip fractures are really life changing. ?? No recurrance of the spells of dizziness - good ! ?? Narrowing of the one artery in the head - posterior cerebral artery branch on the left - that, and the elevated cholesterol indicates high intensity (max dose) of a statin medication is indicated. You're not at max dose of pravastatin yet. PLAN: Testing you will need: ?? Need an trade mark attorney lab appointment so you can come in fasting, and no coffee that morning, to get lipoid panel checked. Your neurology treatment plan: ?? I recommend continuing the pravastatin as that will help decrease the chance of having a stroke, if lipid panel is not super, will further increase to 80 mg pravastatin. ?? Continue aspiring 325 mg daily for decreasing chance of stroke or heart attack. ?? If you want to decrease dose of omeprazole, try taking it only at night, when reflux most bothersome. ?? Another option is to elevate the head of the bed just a little, only need to go about 7 degrees from horizontal, by placing small woodblocks between the boxspring and bedframe. Follow up with other healthcare providers: ?? Be sure to work with your primary care doctor to stay up to date on your health maintenance testing. Information flow (medical records outside our system, communicating between healthcare providers, coordinating your care, etc.): ?? I will send a copy of the clinic note from today's visit to Placido Ott MD . Follow-up with Neurology: ?? Please schedule an appointment with in one year, sooner if problems. MEDICAL DECISION MAKING, ASSESSMENT, & PLAN For today's visit, 04/28/2018, with Neurology DIAGNOSIS CODES and ORDERS: ICD-10-CM 1. Spell of generalized weakness R53.1 EEG ORDER - Request to schedule an EEG The plan, and assessment in laymen's terms as provided to the patient is shown below. ASSESSMENT 04/28/2018: ?? Another spell spring 2017, probably a total of 4 now. ?? The list of things that cause sudden onset spells like that is somewhat short. Seizure is on thatlist and it's something we should check out. ?? If this was a TIA, it does not change what we do. PLAN: Testing you will need: ?? Electroencephalogram: You are being referred for a brain-wave test called an EEG at [facility] EEG /Neurology Department. [phone] is the phone number to make the appointment.. Your neurology treatment plan: ?? Continue pravastatin, aspirin ?? Exercise as best you can. Information flow (medical records outside our system, communicating between healthcare providers, coordinating your care, etc.): ?? I will send a copy of the clinic note from today's visit to Placido Ott MD . Follow-up with Neurology: ?? Please schedule an appointment with me for after the EEG, about 3 or 4 weeks. Please see below for details of this visit. Thank you for involving me in the care of Zaid Gladis Rutledge. Please contact me if I may be of further service. Lianne Feldman MD 04/28/2018 Lianne Feldman MD, Neurologist, [facility], [place] [address] Clinic number [phone] Neurology INTERVAL HISTORY 04/28/2018 04/28/2018 Forgot his cane today, was in such a hurry to get going. He dos not use the cane all the time. Thinks his balance has gotten worse. Is in therapy for back and balance, at [facility]. Balance is concerning him. In 2018 he had another episode where suddenly he was conscious but felt extremrly nauseous, felt like passing out, was sweating, and knew if he got up he would fall. He did not go to ED. They returned from their vacation at [place], spent a few weeks there. He got a testicular infection, called Dr. Osiel rodriguez for Rx (August 2017), toook meds presccribed. He's using catheters and gets with some regularity. Took the abx, seemed to get worse. Was advised when he got to [place] to go to ED or to a urologist. Went to ED in [place], lots of tests, lots of doctors; advised to stay due to urosepsis. He really didn't want to stay. He really did not want to be admitted, called Darinel, and Darinel agreed to another stronger abx, then he left AMA. He did get better, was able to enjoy the trip somewhat. Gopt back Palm Thursday, had a big gathering Easter Thursday where others brought food and after dinner is when he had the spell. Has not had one since then. He's now had 4 of these. From our first visit October 2016: General problem description, context: Seen October 02 by primary doctor, Morgan Bass DO, 81-year-old male who presents with an episode of vertigo.?? Patient states yesterday was talking on the phone and then developed a severe case of the room spinning double vision and had difficulty walking. Which prompted imaging. See below for CT and MRI findings. speell yesterday - another spell, was sitting in LR by fireplace reading the paper, got double vision, like eyes were crossed. Unable to focus. Probably lasted about 3 to 4 minutes. Closed one eye and able to see, so binocular double visionUnable to describe orientation of images, felt like his eyes were crossed. Zaid had a headache before the spell, then some afterwards. During spell he got up, wanted to see if spell was same as before, wanted to look in mirroe - Corie was not home. The previous spells was like he was drunk, leaning, probably to left side. The only thing with the spell yesterday was no dizziness or nausea , just had double vision. Corie noticed he looked quite flushed before leaving, she came home a number of hours later. He did not call 911. The whole evening he didn't feel well. [place] like whoof, you've been through a lot. Had a headache.Needed to take it easy. Next day was fine. Discussed seizures including partial, secondary generalization, risk +/- of seizure meds. PREVIOUS VISIT(S) FOR REFERENCE: 04/22/2017: NPH: Gait is still unsteady, maybe a little worse. It helps when he has the cane. Doesn't feel terribly sure of himself. Does not think his gait is magnetic, no more difficulty with gait initiation. Heis able to arise from a chair with just a little pushoff. He has had no recurrence of the spells of d iplopia, feeling like passing out, no spells. The balance fluctuates. Unable to assess urination dueto prostate issues. 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 Posterior circulaiton TIA: No recurrence of dizzy spells. He did not have visual field cut, does notthink he had dysarthria during the spell. Stroke risk factors - is on pravastatin 40 mg, lisinopril for BP. He wanted to know if he could stopthe lisinopril, I advised not to stop, counseled on importance of maintaining blood pressure controlfor stroke prophylaxis. Continues to take ASA. He takes ibuprofen sometimes, about 3 times a week, so metimes 600 mg due to back pain, advised this is okay though would not escalate. Patient wanted all meds reviewed to see if he could eliminate some. I started pravastatin due to stroke risk factors, especially the stenosis of the left ZINC PLATER branch. Discussed this as risk factor, and reviewed last lipid panel. Hours Fasting hours Information Not Given Cholesterol 0 - 199 mg/dl 221 (H) Triglyceride 0 - 149 mg/dl 266 (H) HDL >40 mg/dl 30 (L) LDL, Calc. 0 - 129 mg/dl 138 (H) Non HDL Chol, Calc mg/dl 191 Eliminated Omeprazole for about 3 weeks, got bad heartburn, affected his sleep. Advised sleeping with HOB elevated, and consider elevating head of boxspring. Currently sleeps on 2 pillows, has back trouble. Axial spine issues: H./o decompression lumbar spine 2015. Patient has very stooped gait, at least 30degrees off vertical, primarily bent at waist with absence of lumbar lordosis requiring neck extension to keep head vertical. Using a walking stick helps, Discussed biomechanics of gait and how forwardleaning posture puts addidtional stress on spine. Encouraged him to keep the gait as upright as possible. Plan from this visit: ASSESSMENT 04/22/2017 : ?? From a neurological standpoint your gait looks really good. The biggest effect I saw today was the biomechanics, the back is leaning forward. ?? Falls are really important to prevent - hip fractures are really life changing. ?? No recurrance of the spells of dizziness - good ! ?? Narrowing of the one artery in the head - posterior cerebral artery branch on the left - that, and the elevated cholesterol indicates high intensity (max dose) of a statin medication is indicated. You're not at max dose of pravastatin yet. PLAN: Testing you will need: ?? Need an trade mark attorney lab appointment so you can come in fasting, and no coffee that morning, to get lipoid panel checked. Your neurology treatment plan: ?? I recommend continuing the pravastatin as that will help decrease the chance of having a stroke, if lipid panel is not super, will further increase to 80 mg pravastatin. ?? Continue aspirin 325 mg daily for decreasing chance of stroke or heart attack. ?? If you want to decrease dose of omeprazole, try taking it only at night, when reflux most bothersome. ?? Another option is to elevate the head of the bed just a little, only need to go about 7 degrees from horizontal, by placing small woodblocks between the boxspring and bedframe. __ November 2016: Reviewed all tests results in detail, discussed stroke risk factors. Following up on inflammatory issues and body aches, he hqas goint pain in all joints, no rashes, no pleuritis chest pain.When he coughs his head hurts like he has a migraine, Reviewed symptoms of NPH. 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 Review of Systems: Except as previously noted and well established chronic conditions, ROS is otherwise negative for constitutional, eye, ENT / oropharyngeal, respiratory , cardiovascular, gastrointestinal, genitourinary, musculoskeletal, hematologic / lymphatic,allergic / immuneologic, integumentary, psychiatric, or other neurological complaints. TEST RESULTSMEDICATIONS AND ALLERGIES Outpatient Medications Prior to Visit Medication Sig Note Dispense Refill ??? acetaminophen [...] 325 mg by mouth daily. ??? cyanocobalamin ([id number]) 1000 MCG/ML injection 1000 mcg weekly x [...] mouth daily at bedtime. 90 Tab 3 Facility-Administered Medications Prior to Visit Medication Dose Route Frequency Provider Last Rate Last Dose ??? cyanocobalamin ([id number]) injection 1,000 mcg 1,000 mcg Intramuscular Other (See Comments) Placido Ott MD 1,000 mcg at 04/28/18 1513 Allergies Allergen Reactions ??? Excedrin Extra Strength [[id number]-[id number]] Anaphylaxis ? ? Molds & Smuts Breathing Difficulty ??? Banana Other, see comments Throat swelling, wheezing Also avoids melons, ??? Levaquin [Levofloxacin] Other, see comments Hamstring tendonitis OTHER HISTORY Patient Active Problem List Diagnosis Date Noted ??? Urinary retention 11/13/2017 Overview Note: TUR, prostate CA, self straight cath about 5x/day ??? Postural kyphosis of lumbar region 04/25/2017 Overview Note: Gait very bent at waist, complete absence of lumbar lordosis, requires neck extension to maintain head neutral vertically. Biomechanics of gait impaired 2nd to this ??? Hematuria, unspecified 01/07/2017 Overview Note: Cysto negative except BPH - prostate likely source ??? Prostatitis 12/30/2016 ??? Acquired cerebral ventriculomegaly 12/02/2016 Overview Note: Minimal change in timed gait with high volume spinal tap October 29, 2015. Maintain vigilance for NPH. 04/22/2017 gait did not have NPH quality. ??? Stenosis of intracranial vessel 11/16/2016 Overview Note: Right side, branches of ZINC PLATER. High intensity statin therapy indicated for stroke prevention. ??? 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 MRA shows right ZINC PLATER branch stenosis. Increased ASA to 325 mg daily. F/u appt November 26, 2016. ??? Macular degeneration 10/14/2016 Overview Note: Treated at [facility], Dr. Hood ??? Essential hypertension (HRC) 10/06/2016 Overview Note: Lisinopril ??? Dilated aortic root (HRC) 01/17/2016 Overview Note: Mild (3.9 cm by echo) 01/2016 ??? Dizziness 01/16/2016 ??? Abnormal urinalysis 01/16/2016 ??? Prostate cancer (HRC) 10/01/2010 Overview Note: Watchful waiting ??? 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 Gout Overview Note: Allopurinol prophylaxis, uric acid 6.2 2011 ??? Glaucoma ??? GERD (gastroesophageal reflux disease) Overview Note: Omeprazole ??? Spinal stenosis, lumbar region, without neurogenic claudication 06/01/2001 Overview Note: S/p lumbar decompression 2015 ??? Bladder neck obstruction 12/09/2000 ??? Dysphagia 06/20/1999 Overview Note: ICD 10 ??? Allergic rhinitis Overview Note: Flonase ??? Primary localized osteoarthrosis, other specified sites ??? Mild persistent asthma without complication (HRC) Overview Note: [facility], Dr. Lewis. Advair, Singulair, Albuterol ??? Polyp of nasal cavity ??? Orchitis and epididymitis 06/15/1993 Overview Note: Epic ??? Irritable bowel syndrome 07/16/1989 Past Medical History: Diagnosis Date ??? Allergic [...] Past Surgical History: Procedure Laterality Date ??? CATARACT REMOVAL bilateral ??? EXCISION BCC [...] Hx of HX, FAMILY, CARDIOVASCULAR * Social History Socioeconomic History ??? Marital status: Spouse name: Not on file ??? Number of children: Not on file ??? Years of education: Not on file ??? Highest education level: Not on file Social Needs ??? Financial resource strain: Not on file ??? Food insecurity - worry: Not on file ??? Food insecurity - inability: Not on file ??? Transportation needs - medical: Not on file ??? Transportation needs - non-medical: Not on file Occupational History ??? 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 Smoking status: Former Smoker Last attempt to quit: 12/24/1997 Years since quittin.4 ??? Smokeless tobacco: Never Used Substance and Sexual Activity ??? Alcohol use: Yes Alcohol/week: 4.2 oz Types: 7 Standard drinks or equivalent per week Comment: moderate ??? Drug use: No ??? Sexual activity: Not on file Other Topics Concern ??? Exercise Yes Comment: min. ??? 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 GENERAL PHYSICAL and NEURLOGICAL EXAMINATION BP 138/83 Pulse 74 Wt 233 lb 12.8 oz (106.1 kg) BMI 35.81 kg/m?? General: Well developed, well nourished, and in no acute distress. Appears approximately chronological age. Head and face: Head is normocephalic and atraumatic. Eyes: Sclerae are anicteric. Conjunctivae are not injected. Ears, nose, mouth, and throat: Auricles, nose, and mouth are without deformities. Speech is articulate, phonation normal. Respiratory: Breathing is nonlabored, speaks easily in complete sentences. Skin: No rashes or unusual lesions are noted. Skin tone normal, anicteric Musculoskeletal and extremities: No bony or joint abnormalities are seen with patient clothed. Psychiatric: Mood is euthymic. Affect is mood congruent. Neurologic Exam: I performed the following neurologic exam and all are normal with the following exceptions: Gait is very stooped at the waist, so neck needs to be extended to hold head at neutral vertically.Base about 3 inches at the heels, he walks in a minimally guarded fashion, stride length is wihtin nornal limits, lucita is regular, arm swing present with minimally diminished amplitude and minimallylateral extension. Stride length is within normal limits. Mental status: Alert, and follows requests with ease. Engages in conversation with fluent speech andappropriate content. The patient provides a cogent history. Cranial nerves: Gaze is conjugate, face is symmetric, no dysarthria. Hearing is intact to normal conversation with or without amplification devices. Motor exam: Moves all extremities equally. Cerebellar and movement: No adventitious movements, movement speed normal. Station and gait: Again, please note abnormalities / exceptions to this exam above. Time: Greater than 40 minutes face to face, or which more than 50% was counseling and coordination of care. MD Lianne Rueda MD, Neurologist End note 04/28/2018 [facility] documented in this encounter Nursing Notes Shweta Louis - 04/28/2018 1:45 PM CST Zaid Rutledge is a 83 y.o. old male here for follow up ataxia. Shweta Louis 04/28/2018, 1:57 PM [facility] documented in this encounter Plan of Treatment Scheduled Referrals Name Type Priority Associated Diagnoses Order S chedule EEG ORDER - Request to Referral Routine Spell of generaliz ed Ordered: 04/28/2018 schedule an EEG weakness documented as of this encounter Visit Diagnoses Diagnosis Spell of generalized weakness - Primary Other malaise and fatigue documented in this encounter Care Teams Exchange Floor Manager Relationship Specialty Start Date End Date Placido Ott MD PCP - General Internal Medicine 10/26/17 10/17/21 [address] [place] [address] documented as of this encounter
--- OUTSIDE RECORDS SUMMARY | 2022-02-24 12:20 | XMS_ITS | Encounter Summary ---
:1935 Author Organization [facility] Address [address], [place] [address] Care Team Providers Name Role Phone Placido Ott MD Primary Care Provider Reason for Visit Reason Comments Vitamin B12 Injection Encounter Details Date Type Department Care Team Description 04/28/2018 Nursing Visit [facility] Other vitamin B12 [place] Nursing deficiency anemia [address] [place] (Primary Dx) [place] [address] Social History Tobacco Use Types Packs/Day [...] documented as of this encounter Progress Notes Anna Wong CMA - 04/28/2018 3:00 PM CST Zaid Rutledge here for Vitamin B-12 Injection. Ordered per pcp. See orders. patient verbalized understanding of risks, possible side effects, and benefits of the injection and gave permission to administer Vitamin B 12. No precautions or contraindications noted. Tolerated injection well. See immunization/injection report for administration documentation. Anna Wong CMA OOR EMERGENCY CARE TECHNICIAN documented in this encounter Plan of Treatment Not on filedocumented as of this encounter Visit Diagnoses Diagnosis Other vitamin B12 deficiency anemia - Pr imary documented in this encounter Administered Medications Active Administered Medications - up to 3 most recent administrations Medication Order MAR Action Action Date Dose Rate Site cyanocobalamin ([id number]) Given 04/28/2018 3:13 PM 1,000 mcg Left Deltoid injection 1,000 mcg OUTDOOR EMERGENCY CARE TECHNICIAN 1,000 mcg, Intramuscular, OTHER, Starting on 03/01/18 at 0934, Until Discontinued, For 9 doses, . Given 03/29/2018 9:01 AM CDT 1,000 mcg Right Deltoid Given 03/22/2018 9:12 AM CDT 1,000 mcg Left Deltoid documented in this encounter Care Teams Bladder Cleaner Relationship Specialty Start Date End Date Placido Ott MD PCP - General Internal Medicine 10/26/17 10/17/21 [address] [place] [address] documented as of this encounter
--- OUTSIDE RECORDS SUMMARY | 2022-02-24 12:20 | XMS_ITS | Encounter Summary ---
:1935 Author Organization [facility] Address [address] [address] Care Team Providers Name Role Phone Placido Ott MD Primary Care Provider Reason for Referral Consult/Transfer Care (Routine) - Closed Specialty Diagnoses / Procedures Referred By Contact Refer red To Contact Diagnoses Encounter for long-term (current) use of medications Placido Ott MD [address] [place] [address] Referral ID Status Reason Start Date Expiration Date Visits Requ ested Visits Authorized [id number] Closed 01/18/2019 04/18/2019 1 1 Scheduling Instructions Your provider has recommended an appoint ment in primary care at [facility]. A production control scheduler will contact you to a ssist you in setting up this appointment, or you may call [phone] to schedule yo ur appointment. Encounter Details Date Type Department Care Team Description 01/13/2019 Refill Order [facility] Placido Ott [place] [facility] [address] [place] [address] [address] [phone] [place], [place] [address] (Wo rk) Social History [...] documented as of this encounter Progress Notes Sera Elias CMA - 01/18/2019 7:45 AM CDT Our review shows that you are due on or after 02/21/2019 for a(n): Please schedule a lab visit to monitor your: - ALANINE AMINOTRANSFERASE (ALT) and CREATININE for the long-term use of allopurinol (ZYLOPRIM) This lab work requires no fasting. documented in this encounter Nursing Notes Interface, Out Surescripts Prov Query - 01/13/2019 11:51 AM CDT ORDER THE FOLLOWING: - ALANINE AMINOTRANSFERASE (ALT): Pended to encounter. - CREATININE: Pended to encounter. - GFR (CRCL) ESTIMATED: Pended to encounter. SCHEDULE THE FOLLOWING: - ALANINE AMINOTRANSFERASE (ALT) BY: 02/21/2019 (Coming due as of 02/21/2019 for allopurinol (ZYLOPRIM) 100 MG tablet) - CREATININE BY: 02/21/2019 (Coming due as of 02/21/2019 for allopurinol (ZYLOPRIM) 100 MG tablet) - GFR (CRCL) ESTIMATED BY: 02/21/2019 (Coming due as of 02/21/2019 for allopurinol (ZYLOPRIM) 100 MGtablet) - LAST QUALIFYING VISIT IN [facility] LUIS A HORN C: 10/11/2018 - NEXT SCHEDULED VISIT: None - NEXT LAB APPOINTMENT: None Powered by [employer], Reference: [id number], 01/13/2019 11:51:13 AM CDT, Pool: PETER JEFFERY RN ([id number]) Interface, Out mo9 ([employer]) Query - 01/13/2019 11:51 AM CDT The [...] Name Type Priority Associated Diagnoses Order S [facility] Primary Care Follow-Up Referral Routine Encounter for long -term Ordered: 01/18/2019 (current) use of medications documented as of this encounter Results ALT (SGPT) (04/20/2019 4:31 PM ORACLE SCM CONSULTANT) P athologist Signature ALT (SGPT) 34 0 - 55 U/L 04/20/2019 [place] AT 4:56 PM ORACLE SCM CONSULTANT [address] Specimen Anatomical Collection Method / Collection Time Recei anisa Time (Source) Location / Volume Laterality Blood Venipuncture / 04/20/2019 4:31 04/20/2019 4:31 Unknown PM ORACLE SCM CONSULTANT PM ORACLE SCM CONSULTANT Placido Ott MD LAB_1 Performing Organization Address City/State/ZIP Code Phon e Number [facility] [address] [place], [place] [address] [facility] [address] [place], [place] [address] [phone] documented in this encounter Visit Diagnoses Diagnosis Encounter for long-term (current) use of medications - Primary Encounter for long-term (current) use of other medications documented in this encounter Care Teams Electric Meter Tester Relationship Specialty Start Date End Date Placido Ott MD PCP - General Internal Medicine 10/26/17 10/17/21 [address] [place] [address] documented as of this encounter
--- OUTSIDE RECORDS SUMMARY | 2022-02-24 12:20 | XMS_ITS | Encounter Summary ---
:1935 Author Organization [facility] Address [address] [place] [address] Care Team Providers Name Role Phone Placido Ott MD Primary Care Provider Reason for Referral Consult/Transfer Care (Routine) - Closed Specialty Diagnoses / Procedures Referred By Contact Refer red To Contact Diagnoses Essential hypertension (HRC) Sammy Cordero MD [address] [place] [address] Referral ID Status Reason Start Date Expiration Date Visits Requ ested Visits Authorized [id number] Closed 07/06/2018 10/05/2019 1 1 Scheduling Instructions Your provider has recommended an appoint ment with [facility]. A bending shed worker will contact you to assist you in setting up this appointment, or you may call [phone] to schedule your appoi ntment. VERER OUTSIDE Reason for Visit Reason Comments SKIN LESION nose Encounter Details Date Type Department Care Team Description 07/06/2018 Office Visit [facility] Sammy Cordero ntial hypertension (Primary Dx); Beatriz Abraham MD [place] (actinic keratosis) Practice [address] [place] [address] [place], [place] [phone] Social History Tobacco Use Types Packs/Day Years [...] Sign Reading Time Taken Comments Blood Pressure 144/87 07/06/2018 12:57 PM DELIVERER OUTSIDE Pulse 70 07/06/2018 12:57 PM DELIVERER OUTSIDE Temperature 36.8 ??C (98.2 ??F) 07/06/2018 12:55 PM DELIVERER OUTSIDE Respiratory Rate 14 07/06/2018 12:55 PM DELIVERER OUTSIDE Oxygen Saturation 96% 07/06/2018 12:55 PM DELIVERER OUTSIDE Inhaled Oxygen Concentration - - Weight 103.4 kg (228 lb) 07/06/2018 12:55 PM DELIVERER OUTSIDE Height 172.1 cm (5' 7.75) 07/06/2018 12:55 PM DELIVERER OUTSIDE Body Mass Index 34.92 07/06/2018 12:55 PM DELIVERER OUTSIDE documented in this encounter Patient Instructions Patient InstructionsStringerSammy MD - 07/06/2018 12:50 PM CST TREATMENT WITH LIQUID NITROGEN: These treated areas WILL swell, or even blister. It could even be a blood blister. This is normal. There is usually no reason to pop the blister. If the blister gets irritated, it's okay to cover it with a Band-Aid. As the blister goes down, a scab will form. Let it fall off by itself. After the scab falls off, your skin may appear pinkish for a while, and then gradually fade back to normal. Its's okay to gently wash the area. Signs of Infections: Swelling Pain Bleeding Fever (above 100 degrees F) Make a follow up appointment by calling [phone] if you have any signs of infection. Sammy Cordero MD [facility] OUTSIDE documented in this encounter Progress Notes Sammy Cordero MD - 07/06/2018 12:50 PM CST Images from the original note were not included. Subjective: Zaid Rutledge is a 83 y.o. male who presents for new evaluation and treatment of actinic keratosis. New lesions have developed with the following symptoms: increasing diameter, increasing thickness. Previous treatment for prior lesions has been cryosurgery. Past history of skin cancer:NONE Other skin problems: yes - ROSACEA Patient Active Problem List Diagnosis ??? Spinal [...] kyphosis of lumbar region ??? Urinary retention Past Medical History: Diagnosis Date ??? Allergic [...] 325 mg by mouth daily. ??? cyanocobalamin ([id number]) 1000 MCG/ML injection 1000 mcg weekly x [...] Provider Last Rate Last Dose ??? cyanocobalamin ([id number]) injection 1,000 mcg 1,000 mcg Intramuscular Other (See Comments) Placido Ott MD 1,000 mcg at 04/28/18 1513 Allergies Allergen Reactions ??? Excedrin Extra Strength [Bxdwgdk-Eqxwaawttfdat-Botdfoux] Anaphylaxis ? ? Molds & Smuts Breathing Difficulty ??? Banana Other, see comments Throat swelling, wheezing Also avoids melons, ??? Levaquin [Levofloxacin] Other, see comments Hamstring tendonitis Review of Systems Pertinent items are noted in HPI. Objective: Physical Exam Skin: Raised erythematous scaly circumscribed area with lopez/white keratotic scale present on the scalp, NOSE Assessment: Actinic Keratosis of scalp, face Plan: 1. Cryosurgery explained to the patient and then performed with Liquid Nitrogen via CRY-AC Bradford unit to 2 lesions. Post op course explained. 2. Fluoruricil treatment not indicated at this time. 3. Continue sun protective measures and avoidance. 4. Observe closely for skin damage/changes and contact us if worrisome changes occur. 5. Written patient instruction given. 6. Follow up in 2 months. SCAB ON NOSE 3-4 WEEKS VERER OUTSIDE documented in this encounter Plan of Treatment Scheduled Referrals Name Type Priority Associated Diagnoses Order S chedule Hypertension Follow Up Referral Routine Essential hyperten adore Ordered: 07/06/2018 ([id number]) documented as of this encounter Visit Diagnoses Diagnosis Essential hypertension (HRC) - Primary Unspecified essential hypertension [place] (actinic keratosis) Actinic keratosis documented in this encounter Care Teams Credit Negotiator Relationship Specialty Start Date End Date Placido Ott MD PCP - General Internal Medicine 10/26/17 10/17/21 [address] [place] [address] documented as of this encounter
--- OUTSIDE RECORDS SUMMARY | 2022-02-24 12:20 | XMS_ITS | Encounter Summary ---
:1935 Author Organization [facility] Address [address] [place] [address] Care Team Providers Name Role Phone Plcaido Ott MD Primary Care Provider Reason for Referral Procedure/Equipment (Routine) - Closed Specialty Diagnoses / Procedures Referred By Contact Refer red To Contact Diagnoses Abnormality of gait due to impairment of balance Lianne Feldman MD [address] [facility] [place] [address] Referral ID Status Reason Start Date Expiration Date Visits Requ ested Visits Authorized [id number] Closed 05/27/2018 08/26/2019 1 1 Scheduling Instructions Your provider has recommended an appoint ment with a [facility] Specialist. You may call [phone] to schedule your appointment. If you prefer, a spares scheduler will contact you within the ne xt 3 business days to assist you in setting up this appointment. We suggest you call your health insurance company about your coverage and benefits for this appointme nt. POLLUTION INSPECTOR Reason for Visit Reason Comments WEAKNESS results Encounter Details Date Type Department Care Team Description 05/27/2018 Office Visit [facility] Lianne Feldman Flush ing reaction (Primary Dx); Beatriz Neurology MD Michaela Abnormality of gait due to impairment of balance; [address] Impaired joint position sens e; [place]ERTHA [place] [id number] Decreased peripheral vibratory sense [phone] BERTHA [place] [id number] Social History Tobacco Use Types Packs/Day Years [...] Sign Reading Time Taken Comments Blood Pressure 150/82 05/27/2018 4:38 PM AIR POLLUTION INSPECTOR Pulse 73 05/27/2018 4:38 PM AIR POLLUTION INSPECTOR Temperature - - Respiratory Rate - - Oxygen Saturation - - Inhaled Oxygen Concentration - - Weight - - Height - - Body Mass Index - - documented in this encounter Patient Instructions Patient InstructionsKoLianne melissa MD - 05/27/2018 3:15 PM CST Neurology clinic visit, 05/27/2018, with Lianne Feldman MD ASSESSMENT 05/27/2018 : ?? 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 You're having a hard time feeling position of your toes / feet in space. This affects balance. (see below for more info on balance. ) Peripheral neuropathy is a very general term for anything hurting the nerves in the legs, arms, trunk or face (peripheral nervous system), without affecting the nerves in the brain or spinal cord (central nervous system). Peripheral neuropathy is found in 8% of people over the age of 55. Intensive evaluation / testing reveals a cause in only 50% of people with neuropathy. About 40% of ???idiopathic?? peripheral neuropathies are inherited. ?? The spells sound like the flushing spells of a rare but treatable condition called carcinoid. This is a type of benign tumor that spits out hormones suddently and causes flushing, a drop in blood pressure. ?? Gait is unchanged compared to 18 months ago. PLAN: Testing you will need: ?? Electromyography and nerve conduction studies: You are being referred for nerve and muscle testing called an EMG. Please stop by Scheduling here in the Specialty Clinic to schedule thatappointment. ?? 24 hour urine collection - to be done later. Make a lab-only appointment whenever convenient. ?? Avoid these foods for 2 to 3 days before the 24 hour urine collection: Tryptophan-rich foods: avocados, pineapples, bananas, kiwi fruit, plums, eggplants, walnuts, hickorynuts, pecans, tomatoes, plantains, butternut Drugs: acetaminophen, coumaric acid, guaifenisin, mephenisin, phenobarbital, reserpine, acetanilid, ephedrine, methamphetamine, nicotine, phentolamine, phenmetrazine, caffeine, flourouracil, melphalan,methocarbamol, phenacetin, mesalamine Your neurology treatment plan: ?? Stay active and walk as much as you can reasonably. A stationary bike would be good also. Follow up with other healthcare providers: ?? Be sure to work with your primary care doctor to stay up to date on your health maintenance testing. Information flow (medical records outside our system, communicating between healthcare providers, coordinating your care, etc.): ?? I will send a copy of the clinic note from today's visit to Placido Ott MD Follow-up with Neurology: ?? Please schedule an appointment with me for about a week after the EMG. Best wishes for your health and wellbeing, Lianne Feldman MD, Neurologist, 05/27/2018 A note about test results: Complex or [...] if at all possible. Otherwise please call [phone] for an appointment. ?? Due to high [...] community. Medications - Our pharmacies, both the [facility] here at [facility] and [facility] are great places to get your meds. They are friendly, helpful, and really a great part of our community. vvvvvvvvvvvvvvvvvvvvvvvvvvvvvv HOW DO WE BALANCE OURSELVES TO WALK UPRIGHT? Our brain uses three main sources of information to keep us balanced while we are standing, walking,sitting, or leaning over to pick something up: ?? Vision ?? Vestibular sense from our inner ear ?? Position sense in all our joints, also known as proprioception Vision tells us what is up, down, sideways, moving in circles, or turning. Vestibular sense tells us if we're accelerating - spinning, rocking sideways, or pitching forward orbackward. Position sense tells us how much pressure there is on each of our joints, like how much pressure should be on each square inch of our foot and knee joints and hip joints to stand upright. It tells us how hard to squeeze a styrofoam cup of coffee without dropping it or crushing it in our hands. It tells our spine how to keep our body in the position we tell it to, like sitting upright on a chair or bending over to pick weeds, or to the side to avoid bumping into the ladder our silly friend is carrying sideways. Our brain uses all three pieces of balance information - vision, vestibular (inner ear), and position sense, and processes them many times per second in a pretty amazingly complex way. They help us to . . . ?? stand upright ?? walk on the rocks of [facility] ?? keep our balance on the bus if it starts moving before we get to our seat ?? hold our body upright on the Pycv[place]Mhxtj at the [facility] ?? lean over to pick up worker the newspaper and stand up straight again ?? Play tennis ?? Ride a bicycle ?? Stand up from a chair and walk ?? . . . Or just sit upright in the chair We can balance pretty well if one of these senses is not working, such as walking across the room with our eyes closed. However, we cannot balance well at all if we have two of these senses malfunction. If someone blindfolds you before you get off the Krxb-o-Mhffd (which has now played tricks on your inner ear / vestibular system), then it's really really hard to walk across the fairgrounds without falling down. With three of these senses malfunctioning, your (soon to be ex-) friend blindfolds you as you step off the Izpl-b-Sbbjf, and you have neuropathy with impaired position sense, you will fall to the ground and not be able to walk at all. Even if all three of the balance sense signals of vision, vestibular, and position sense are working great, there are many things that may affect how the brain processes the information. As we age our ability to process the three balance senses slows down. It sometimes helps to have sensory cues, touse a cane or walking stick, even if it's not necessary to bear weight. If we drink too much alcohol, the inner ear and cerebellum are poisoned either temporarily or permanently, and cannot coordinate our movements or know if we really are spinning or rocking. Some disorders like Parkinson disease, multiple sclerosis, stroke, and lots of micro-strokes (called small vessel vascular disease) make it hard for the brain to process the balance information. POLLUTION INSPECTOR documented in this encounter Progress Notes Lianne Feldman MD - 05/27/2018 3:15 PM CST NEUROLOGY FOLLOW-UP VISIT 05/27/2018 PATIENT: Zaid Rutledge Background Please note this document was either typed by me or prepared with voice recognition software which may result in multiple types of errors. Please contact me if clarification is needed. [phone]. Today's visit is with neurologist Lianne Feldman MD, [facility] Primary care doctor: Placido Ott MD Cc: - Zaid Rutledge is a 83 y.o. old male who returns today for neurological followup. 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 He was seen for initial consultation October 2016, and there was suspicion for possible normal pressure hydrocephalus, so underwent high volume spinal tap October 28, 2016. Neurologic issues are shown below: 1. Four spells of flushing, diaphoresis, sense of lightheadedness versus vertigo. The first such spell was January 2016, most recent was spring. 2. Intracranial atherosclerosis, left posterior cerebral artery [...] a risk factor for stroke (Lifetime 2x/week). 6. Biomechanics of gait impaired by axial spine issues. For reference purposes and continuity of care, the medical decision making, assessment, and plan from the patient's previous neurology visit is shown below. ASSESSMENT 04/28/2018: ?? Another [...] a brain-wave test called an EEG at [facility] EEG /Neurology Department. [phone] is the phone number to make the appointment.. Your neurology treatment plan: ?? Continue pravastatin, aspirin ?? Exercise as best you can. MEDICAL DECISION MAKING, ASSESSMENT, & PLAN For today's visit, 05/27/2018, with Neurology MEDICAL DECISION MAKING 05/27/2018 : ?? Spells: Zaid decided not to get the EEG done. We reviewed the semiology of the spells, and ratherthan seizure, the spells are more like a metabolic paroxysm or possibly autonomic. Its less likely these are cardiac in origin, he had at least 24 hours of total telemetry when he was hospitalized January 2016, underwent a 30 day Holter monitor thereafter, and had a echocardiogram, none of which reallyexplained this. Another possibility is that any transient decrease in cardiac output is likely to cause posterior circulation symptoms due to the fact that he has intracranial atherosclerosis involvingthe left posterior cerebral artery. While its unlikely (due to the long duration between spells), there is a suggestion of carcinoid. ?? We discussed his gait today, and performed a timed gait again. There is been really very little change in his gait since he underwent high volume spinal tap for the possibility of normal pressure hydrocephalus. He has absent vibratory sense and absent position sense in the feet, and we discussed neuropathy today, we will obtain EMG and nerve conduction studies. His vitamin B12 was measured about three months ago, February 2018, and was 233 pg/mL. He was started on B12 injections.. He underwent all of the blood testing that is part of the initial workup of her neuropathy, with the exception of serum protein electrophoresis and immunofixation, so will obtain that also. DIAGNOSIS CODES: 1. Flushing reaction 2. Abnormality of gait due to impairment of balance 3. Impaired joint position sense 4. Decreased peripheral vibratory sense ORDERS PLACED: Orders Placed This Encounter ??? 5-Hydroxyindoleacetic Acid, Urine ??? Protein ELP (Serum) ??? Immunofixation, Serum (Immuno ELP) ??? Emg-Electromyography Adult The plan, and assessment in laymen's terms as provided to the patient is shown below. ASSESSMENT 05/27/2018 : ?? 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 You're having a hard time feeling position of your toes / feet in space. This affects balance. (see below for more info on balance. ) Peripheral neuropathy is a very general term for anything hurting the nerves in the legs, arms, trunk or face (peripheral nervous system), without affecting the nerves in the brain or spinal cord (central nervous system). Peripheral neuropathy is fund in 8% of people over the age of 55. Intensive evaluation / testing reveals a cause in only 50% of people with neuropathy. About 40% of ???idiopathic?? peripheral neuropathies are inherited. ?? The spells sound like the flushing spells of a rare but treatable condition called carcinoid. This is a type of benign tumor that spits out hormones suddently and causes flushing, a drop in blood pressure. ?? Gait is unchanged compared to 18 months ago. PLAN: Testing you will need: ?? Electromyography and nerve conduction studies: You are being referred for nerve and muscle testing called an EMG. Please stop by Scheduling here in the Specialty Clinic to schedule thatappointment. ?? 24 hour urine collection - to be done later. Make a lab-only appointment whenever convenient. ?? Avoid these foods for 3 days before the 24 hour urine collection: Tryptophan-rich foods: avocados, pineapples, bananas, kiwi fruit, plums, eggplants, walnuts, hickorynuts, pecans, tomatoes, plantains, butternut Drugs: acetaminophen, coumaric acid, guaifenisin, mephenisin, phenobarbital, reserpine, acetanilid, ephedrine, methamphetamine, nicotine, phentolamine, phenmetrazine, caffeine, flourouracil, melphalan,methocarbamol, phenacetin, mesalamine Your neurology treatment plan: ?? Stay active and walk as much as you can reasonably. A stationary bike would be good also. Follow up with other healthcare providers: ?? Be sure to work with your primary care doctor to stay up to date on your health maintenance testing. Information flow (medical records outside our system, communicating between healthcare providers, coordinating your care, etc.): ?? I will send a copy of the clinic note from today's visit to Placido Ott MD Follow-up with Neurology: ?? Please schedule an appointment with me for about a week after the EMG. Please see below for details of this visit. Thank you for involving me in the care of Zaid Rutledge. Please contact me if I may be of further service. Lianne Feldman MD 05/27/2018 Lianne Feldman MD, Neurologist, [facility] [address] [place] [address] Clinic number [phone] INTERVAL HISTORY 05/27/2018 05/27/2018 Spells: Has not had EEG. He read up on EEGs, does not want to joepardize his drivers license. I counseled him that any findings on the EEG would not jeopardize his drivers license, its the nature of the spell itself. I further counseled them on the process we use for reporting, in that the physicians and [place] are not responsible for reporting to the Department of Public Safety, and I only reportto DPS when the patient will present a risk of harm. Every time he's had a spell he's been flushed, with a cold sweat. He does not recall diarrhea specifically around the time of the spell, though he does get diarrhea not infrequently. We reviewed someof the other symptoms of carcinoid spell. The dizziness sounds more like lightheadedness, though he would also have a lower threshold for posterior circulation symptoms in light of his highly stenosed left posterior cerebral artery. We discussed seizures - it is unlikely to be sz. Possible triggers - most recent spell he was overtired and hadn't eaten, just flown back from [place]. 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 Could have been exhausted from that. Can't recall what preceded the other two. Gait: We discussed balance, the neurological control thereof, and we did a brief sensory and reflex exam. His gait really has not changed much since he has been my patient. PREVIOUS VISIT(S) FOR REFERENCE: 04/28/2018 Forgot his cane today, was in such a hurry to get going. He dos not use the cane all the time. Thinks his balance has gotten worse. Is in therapy for back and balance, at [facility]. Balance is concerning him. In 2017 he had another episode where suddenly he was conscious but felt extremrly nauseous, felt like passing out, was sweating, and knew if he got up he would fall. He did not go to ED. They returned from their vacation at [place], spent a few weeks there. He got a testicular infection, called Dr. Osiel rodriguez for Rx (August 2017), toook meds presccribed. He's using catheters and gets with some regularity. Took the abx, seemed to get worse. Was advised when he got to [place] to go to ED or to a urologist. Went to ED in [place], lots of tests, lots of doctors; advised to stay due to urosepsis. He really didn't want to stay. He really did not want to be admitted, called Darinel, and Darinel agreed to another stronger abx, then he left [place]. He did get better, was able to [...] another spell, was sitting in [place] by [place] reading the paper, got double vision, like [...] spells was like he was drunk, leaning, probablyto left side. The only thing with the spell yesterday was no dizziness or nausea , just had double vision. Corie noticed he looked quite flushed before leaving, she came home a number of hours later. He did not call 911. The whole evening he didn't feel well. [place] like whoof, you've been through a lot. Had a headache.Needed to take it easy. Next day was fine. Discussed seizures including partial, secondary generalization, risk +/- of seizure meds. 04/22/2017: NPH: Gait is still unsteady, maybe [...] factors, especially the stenosis of the left CODING COMPLIANCE MANAGER branch. Discussed this as risk factor, and [...] Axial spine issues: H./o decompression lumbar spine 2016. Patient has very stooped gait, at least [...] Testing you will need: ?? 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 ??? cyanocobalamin ([id number]) 1000 MCG/ML injection 1000 mcg weekly x [...] Provider Last Rate Last Dose ??? cyanocobalamin ([id number]) injection 1,000 mcg 1,000 mcg Intramuscular Other (See Comments) Placido Ott MD 1,000 mcg at 04/28/18 1513 Allergies Allergen Reactions ??? Excedrin Extra Strength [Mznislf-Iianqrkmdvaws-Uolebshh] Anaphylaxis ? ? Molds & Smuts Breathing [...] 11/16/2016 Overview Note: Right side, branches of CODING COMPLIANCE MANAGER. High intensity statin therapy indicated for stroke prevention. ??? 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 MRA shows right CODING COMPLIANCE MANAGER branch stenosis. Increased ASA to 325 mg [...] Not on file Occupational History ??? 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 Smoking status: Former Smoker [...] Yes Comment: 100 % Social History Narrative Transcription Specialist. GENERAL PHYSICAL and NEURLOGICAL EXAMINATION BP (!) 150/82 Pulse 73 General: Well developed, well nourished, and in [...] extended to hold head at neutral vertically.Base is variable, between 3 and much wider at the heels, he walks in a minimally guarded fashion, stride length is wihtin nornal limits, lucita is regular, arm swing present with minimally diminishedamplitude and minimally lateral extension. Timed gait was performed today, around trip of 50 feet, [address] including a turn and 25 feet back. Three trials were 16.4 seconds, 15.9 seconds, 15.6 seconds. Mental status: Alert, and follows requests with [...] MD Lianne Rueda MD, Neurologist End note 05/27/2018 POLLUTION INSPECTOR documented in this encounter Nursing Notes Shweta Louis - 05/27/2018 3:15 PM CST Zaid Rutledge is a 83 y.o. old male here for results. Shweta Lousi 05/27/2018, 3:08 PM POLLUTION INSPECTOR documented in this encounter Plan of Treatment Scheduled Referrals Name Type Priority Associated Diagnoses Order S chedule Emg-Electromyography Referral Routine Abnormality of gait due to Ordered: 05/27/2018 Adult impairment of balance documented as of this encounter Results Immunofixation, Serum (Immuno ELP) (06/22/2018 2:07 PM AIR POLLUTION INSPECTOR) Component Value Ref Test Analysis Performed At [facility] [employer] Range Method Time Signature Immunofixation No monoclonal MG protein is LABORATORIES detectable. Signed out by [facility] Laboratory Specimen Anatomical Collection Method Collection Time Receive d Time (Source) Location / / Volume Laterality 06/22/2018 2:07 PM 9 2:34 AIR POLLUTION INSPECTOR PM AIR POLLUTION INSPECTOR Narrative [facility] - 06/23/2018 11:50 AM AIR POLLUTION INSPECTOR Performed at [facility], [address] [place] [address] ??[id number] Lianne Feldman MD LAB_1 Performing Organization Address City/State/ZIP Code Phon e Number [facility] [phone] Protein ELP (Serum) (06/22/2018 2:07 PM AIR POLLUTION INSPECTOR) Component Value Ref Test Analysis Performed At [facility] Method Time Signature Total Protein 7.0 6.4 [...] detectable in the serum. Signed out by [facility] Laboratory Specimen Anatomical Collection Method Collection Time Receive d Time (Source) Location / / Volume Laterality 06/22/2018 2:07 PM 9 2:34 AIR POLLUTION INSPECTOR PM AIR POLLUTION INSPECTOR Narrative [facility] - 06/23/2018 2:[address] Performed at [facility], [address] ??[id number] Lianne Feldman MD LAB_1 Performing Organization Address City/State/ZIP Code Phon e Number [facility] [phone] documented in this encounter Visit Diagnoses Diagnosis Flushing reaction - Primary Flushing Abnormality of gait due to impairment of balance Impaired joint position sense Decreased peripheral vibratory sense Disturbance of skin sensation Impaired joint position sense Decreased peripheral vibratory sense Disturbance of skin sensation Flushing reaction Flushing documented in this encounter Care Teams Paid Search Manager Relationship Specialty Start Date End Date Placido Ott MD PCP - General Internal Medicine 10/26/17 10/17/21 [address] [place] [address] documented as of this encounter
--- OUTSIDE RECORDS SUMMARY | 2022-02-24 12:20 | XMS_ITS | Encounter Summary ---
:1935 Author Organization [facility] Address [address], [place] [address] Care Team Providers Name Role Phone Placido Ott MD Primary Care Provider Reason for Visit Reason Comments QUESTIONS, GENERAL lesion on nose Encounter Details Date Type Department Care Team Description 08/25/2018 [facility]phone [facility] Sammy Cordero, [facility] Pr anjelica Abraham MD (lesion on nose) [address] [place] [address] [address] [phone] [place] [address] Social History Tobacco Use Types Packs/Day Years [...] documented as of this encounter Nursing Notes Massiel Narvaez CMA - 09/10/2018 11:34 AM CDT Unable to reach patient by phone x 2 attempts. (Closing encounter) Massiel Narvaez CMA 09/10/2018, 11:35 AM Dunia Rodríguez LPN - 09/08/2018 2:03 PM CDT Left patient VM to call back. [place] [phone]. Dunia Rodríguez LP09/08/2018, 2:04 PM Massiel Narvaez CMA - 09/03/2018 12:35 PM CDT Left message for patient to call back. Please have patient call extension [phone] to discuss. Massiel Narvaez CMA ................ 09/03/2018 12:36 PM Lizette Blair - 08/25/2018 9:51 AM CDT Miscellaneous Questions & FYIs [Tire Repairer/Appt Center: If this call is after 3 p.m., communicate to patient: If we are not able to get back to you by the end of the day and your symptoms worsen please contact the Careline at [phone] OR at .] What condition are you calling about? Lesion on nose Is this a question/concern or an FYI? Question/Concern What is your question or concern? Patient is stating that the shot on his nose is giving him trouble. Have you recently been seen for this? No Is it okay to leave a detailed message on your voicemail? Yes Lizette Blair ?? Please Warm Transfer/route to RNs if symptom based call. [Refer to Symptoms Indicating Need for Triage list[ ?? Please route to None OR Care Team Pool if unable to handle and not symptom based. ?? [ORNITHOLOGY TEACHER/RMA/LPNs: Please call the patient to gather additional details, as needed] documented in this encounter Plan of Treatment Not on filedocumented as of this encounter Visit Diagnoses Not on filedocumented in this encounter Care Teams Supervisor Refractory Products Relationship Specialty Start Date End Date Placido Ott MD PCP - General Internal Medicine 10/26/17 10/17/21 [address] [place] [address] documented as of this encounter
--- OUTSIDE RECORDS SUMMARY | 2022-02-24 12:20 | XMS_ITS | Encounter Summary ---
:1935 Author Organization [facility] Address [address] [place] [address] Care Team Providers Name Role Phone Placido Ott MD Primary Care Provider Reason for Referral Consult/Transfer Care (Routine) - Closed Specialty Diagnoses / Procedures Referred By Contact Refer red To Contact Diagnoses Essential hypertension (HRC) Placido Ott MD [address] [place] [address] Referral ID Status Reason Start Date Expiration Date Visits Requ ested Visits Authorized [id number] Closed 05/28/2018 08/27/2019 1 1 Scheduling Instructions Your provider has recommended an appoint ment with [facility]. A gasket winder will contact you to assist you in setting up this appointment, or you may call [phone] to schedule your appoi ntment. DELIVERER Reason for Visit Reason Comments BP CHECK,NURSE Encounter Details Date Type Department Care Team Description 05/27/2018 Telephone [facility] Placido Ott, BP CHECK,NURSE [facility] [address] [place] [address] [address] [phone] [place], [place] [address] (Wo rk) Social History [...] documented as of this encounter Nursing Notes Rashmi Egan CMA - 05/28/2018 8:21 AM CST The patient has been notified of this information and all questions answered. Patient states he willhave a BP check when he comes to clinic for lab work. He was transferred to schedule those appointments. Rashmi Egan CMA 05/28/2018, 8:29 AM Placido Li MD - 05/28/2018 7:27 AM CST As his blood pressure has generally well controlled off the blood pressure medication, I recommend he have a few more blood pressure checks prior to making any decisions about restarting. He could havea recheck of blood pressure here with a nurse visit after the holidays. Placido Ott MD 05/28/2018 7:28 AM Aleksandra Barrett CMA - 05/27/2018 4:43 PM CST Pt was in to see Dr Feldman today. States he was taken off blood pressure medication. Today's BP 150/82. Pt is not wondering if he should resume, or be seen. Aleksandra Hinojosa CMA 05/27/2018, 4:45PM DELIVERER documented in this encounter Plan of Treatment Scheduled Referrals Name Type Priority Associated Diagnoses Order S chedule Hypertension Follow Up Referral Routine Essential hyperten adore Ordered: 05/28/2018 ([id number]) documented as of this encounter Visit Diagnoses Diagnosis Essential hypertension (HRC) - Primary Unspecified essential hypertension documented in this encounter Care Teams Branch Operations Coordinator Relationship Specialty Start Date End Date Placido Ott MD PCP - General Internal Medicine 10/26/17 10/17/21 [address] [place] [address] documented as of this encounter
--- OUTSIDE RECORDS SUMMARY | 2022-02-24 12:20 | XMS_ITS | Encounter Summary ---
:1935 Author Organization [facility] Address [address] [address] Care Team Providers Name Role Phone Placido Ott MD Primary Care Provider Reason for Visit Reason Comments SKIN LESION nose and forehead Consult/Transfer Care (Routine) - Closed Specialty Diagnoses / Procedures Referred By Contact Refer red To Contact Diagnoses Essential hypertension (HRC) Sammy Cordero MD [address] [place] [address] Referral ID Status Reason Start Date Expiration Date Visits Requ ested Visits Authorized [id number] Closed 07/06/2018 10/05/2019 1 1 Encounter Details Date Type Department Care Team Description 08/03/2018 Office Visit [facility] Sammy Cordero [place] ( actinic keratosis) (Primary Dx); Beatriz Abraham MD Actinic keratosis of multiple sites of h ead and neck Practice [address] [place] [address] [place], [place] [phone] Social History Tobacco Use Types Packs/Day Years [...] Sign Reading Time Taken Comments Blood Pressure 133/82 08/03/2018 11:14 AM PSYCHOLOGY ASSISTANT Pulse 75 08/03/2018 11:14 AM PSYCHOLOGY ASSISTANT Temperature 36.7 ??C (98 ??F) 08/03/2018 11:14 AM PSYCHOLOGY ASSISTANT Respiratory Rate 16 08/03/2018 11:14 AM PSYCHOLOGY ASSISTANT Oxygen Saturation - - Inhaled Oxygen Concentration - - Weight - - Height 172.1 cm (5' 7.75) 08/03/2018 11:14 AM PSYCHOLOGY ASSISTANT Body Mass Index - - documented in this encounter Patient Instructions Patient InstructionsStringerSammy MD - 08/03/2018 10:50 AM CST TREATMENT WITH LIQUID NITROGEN: These treated [...] Make a follow up appointment by calling [phone] if you have any signs of infection. Sammy Cordero MD HOLOGY ASSISTANT documented in this encounter Progress Notes Sammy Cordero MD - 08/03/2018 10:50 AM CST Images from the original note were not included. Subjective: Zaid Rutledge is a 83 y.o. male who presents for new evaluation and treatment of actinic keratosis. New lesions have developed with the following symptoms: increasing diameter, increasing thickness. Previous treatment for prior lesions has been cryosurgery. Past history of skin cancer: . Other skin problems: yes - SK. basal cell carcinoma Patient's medications, allergies, past medical, surgical, social and family histories were reviewed and updated as appropriate. Review of Systems Pertinent items are noted in HPI. Objective: Physical Exam Skin: #5 (2-4 mm) Raised erythematous scaly circumscribed area with lopez/white keratotic scale present on the face, LEFT EAR PINNA, LEFT SIDE NOSE, RIGHT FOREHEAD Assessment: Actinic Keratosis of face Plan: 1. Cryosurgery explained to the patient and then performed with Liquid Nitrogen via CRY-AC [place] unit to 1 lesions. Post op course explained. 2. Fluoruricil treatment not indicated at this time. 3. Continue sun protective measures and avoidance. 4. Observe closely for skin damage/changes and contact us if worrisome changes occur. 5. Written patient instruction given. 6. Follow up in 6 months. HOLOGY ASSISTANT documented in this encounter Plan of Treatment Not on filedocumented as of this encounter Visit Diagnoses Diagnosis AK (actinic keratosis) - Primary Actinic keratosis Actinic keratosis of multiple sites of h ead and neck Actinic keratosis documented in this encounter Care Teams Outbound Sales Professional Relationship Specialty Start Date End Date Placido Ott MD PCP - General Internal Medicine 10/26/17 10/17/[address] [place] [address] documented as of this encounter
--- OUTSIDE RECORDS SUMMARY | 2022-02-24 12:20 | XMS_ITS | Encounter Summary ---
:1935 Author Organization [facility] Address [address], [place] [address] Care Team Providers Name Role Phone Placido Ott MD Primary Care Provider Encounter Details Date Type Department Care Team Description 05/27/2018 Telephone [facility] Do eleazar Feldman MD [facility] [address] [place] [address] [place] [address] [phone] Social History Tobacco Use Types Packs/Day Years [...] encounter Nursing Notes Cristina Souza RN - 06/02/2018 10:33 AM CST Pt informed of message below and states understanding. Pt is in agreement with plan. Cristina Souza RN 06/02/2018, 10:33 AM OVERY MANAGER Yuki Romero RN - 05/28/2018 8:45 AM CST Message left for patient to call back for provider message. Yuki Romero RN 05/28/2018, 8:46 AM OVERY MANAGER Lianne Feldman MD - 05/27/2018 6:47 PM CST Please call the patient and advise that I reviewed all of his blood testing that has been done over the last couple of years. There are two blood tests that I would like to do that are part of the standard workup for neuropathy. He has had all of the other blood tests that are done for the initial workup for neuropathy already. He get that done at the lab only appointments he is scheduling for the 24-hour urine test. MD Lianne Rueda MD, Neurologist, 05/27/2018 OVERY MANAGER documented in this encounter Plan of Treatment Not on filedocumented as of this encounter Visit Diagnoses Not on filedocumented in this encounter Care Teams Fsr Relationship Specialty Start Date End Date Placido Ott MD PCP - General Internal Medicine 10/26/17 10/17/[address] [place] [address] documented as of this encounter
--- OUTSIDE RECORDS SUMMARY | 2022-02-24 12:21 | XMS_ITS | Encounter Summary ---
:1935 Author Organization [facility] Address [address], [place] [address] Care Team Providers Name Role Phone Kali Morgan Milton DO Primary Care Provider Reason for Visit Reason Comments QUESTIONS, GENERAL Catheter supplies Encounter Details Date Type Department Care Team Description 08/28/2017 Telephone [facility] Waqsa Rodney GENERAL Lawrence Edson Griffith MD (Catheter supplies) [facility] [address] [place] [address] [place], [place] [phone] Social History Tobacco Use Types Packs/Day Years [...] documented as of this encounter Nursing Notes Tania Calloway, EULOGIO - 08/28/2017 2:43 PM CDT Patient and are on way to pick medication up at pharmacy. Patient's thanked aligner typewriter for allmy help. Tania Calloway, EULOGIO 08/28/2017, 2:43 PM Waqas Rodney MD - 08/28/2017 2:38 PM CDT Spoke to zaid and adryan. They want to get to [place] then if needs to be admitted they will do. No fever, no abscess on us nomalaise, just a very swollen testis. No repsonse to cipro, ua neg On SIC rec heat and elevation and start duricef 500 bid x 2 weeks. To hospital if progresses. Angela Neri - 08/28/2017 2:25 PM CDT Pharmacy listed above. Please send to pharmacy above. Please call patient back to confirm. Angela Neri 08/28/2017, 2:26 PM Tania Calloway RN - 08/28/2017 12:56 PM CDT Patient's , Adryan, calling and states patient is currently at the ER in [place] and they are wanting to admit to hospital but Adryan and patient do not want him to be admitted at [facility]. Patient has had infection in testicle for last 5 days, was taking Cipro which hasn't done anything. Adryan states patient's testicle is the size of grapefruit, has pain in the groin area. Patient is beingstarted on IV Rocephin 3.375 mg. Adryan states that they will sit tight until they hear from Dr. Rodney regarding if anything can be done for patient outpatient as the patient and his do not want patient to be in the hospital in [place]. Per conversation with patient on Thu08/26/17, aligner typewriter [place] Val Jordan. See telephone encounter dated 08/26/17. Also, per Flavio at [employer], patient needs a verbal order to send catheters to patient in [place] as he used more than he brought due to this infection. Please advise. Tania Calloway RN 08/28/2017, 1:07 PM Rosemarie Vasquez - 08/28/2017 12:33 PM CDT Miscellaneous Questions & FYIs [Plant And Equipment Worker/Appt Center: If this call is after 3 p.m., communicate to patient: If we are not able to get back to you by the end of the day and your symptoms worsen please contact the Careline at [phone] OR at .] What condition are you calling about? Catheter supplies Is this a question/concern or an FYI? Question/Concern What is your question or concern? Flavio works for [employer] calling wondering if she can get a verbal order from either Deepika or Dr. Rodney so they can send catheters to Zaid as he is in [place]. Flavio states that Zaid has an infection and is using more catheters and now is out. She would like the verbal order so they can send them right away. Please call to discuss. Have you recently been seen for this? No Is it okay to leave a detailed message on your voicemail? Yes Rosemarie Vasquez Please route to: None (Care Team Pool if unable to handle) documented in this encounter Plan of Treatment Not on filedocumented as of this encounter Visit Diagnoses Not on filedocumented in this encounter Care Teams Food Handler Relationship Specialty Start Date End Date Morgan Bass DO PCP - General Family Practice 10/02/16 10/25/17 [address] [place] [address] documented as of this encounter
--- OUTSIDE RECORDS SUMMARY | 2022-02-24 12:21 | XMS_ITS | Encounter Summary ---
:1935 Author Organization [facility] Address [address] [address] Care Team Providers Name Role Phone Placido Ott MD Primary Care Provider Reason for Visit Reason Comments ROUTINE HEALTH MAINTENANCE Encounter Details Date Type Department Care Team Description 02/26[facility]acido Ott En counter for Medicare annual wellness exam (Primary Dx); Beatriz Spence MD Encounter for routine adult health exami nation without abnormal findings; Medicine [address] Encounter for immunization; [address] Essential hypertension; BERTHA [place] MCI (mild c ognitive impairment); [id number] Idiopathic gout, unspecified chronicity, unspecified site [phone] Social History Tobacco Use Types Packs/Day Years [...] Sign Reading Time Taken Comments Blood Pressure 108/67 02/26/2018 9:49 AM CDT Pulse 75 02/26/2018 9:49 AM CDT Temperature 36.5 ??C (97.7 ??F) 02/26/2018 9:49 AM CDT Respiratory Rate 16 02/26/2018 9:49 AM CDT Oxygen Saturation 98% 02/26/2018 9:49 AM CDT Inhaled Oxygen Concentration - - Weight 103.4 kg (228 lb) 02/26/2018 9:49 AM CDT Height 172.1 cm (5' 7.75) 02/26/2018 9:49 AM CDT Body Mass Index 34.92 02/26/2018 9:49 AM CDT documented in this encounter Patient Instructions Patient InstructionsFalShari esposito C, RMA - 02/26/2018 9:54 AM CDT Images from the original note were not included. Annual Wellness Visit Summary Your care team is recommending the following tests, procedures or services. Some of these recommendations may not be fully covered by Medicare or your insurance. If you have questions, check with your insurance to determine coverage before completing these services. Health Maintenance Due Health Maintenance Topic Date Due ??? Medicare Annual Wellness Visit 1935 ??? HepA (2 of 2 - Standard Series) 09/23/2016 ??? Zoster RZV (Shingrix) (2 of 2 - RZV 2 Dose Standard Series) 01/13/2018 ??? Influenza (1) 02/13/2018 ??? DTaP/Tdap/Td (2 - Td) 02/27/2021 ??? Advanced Directive Completed ??? Pneumococcal Completed If your Medicare Welcome or Annual Wellness Visit is showing you are due in the above list, this will be updated after this visit. You had this completed today and are not due for another year. Bring in copy of living will/Advanced Care directive at your convenience Try decreasing the omeprazole down to one tablet per day. Well Visit, Over 65: Care Instructions Your Care Instructions Physical exams can help you stay healthy. Your doctor has checked your overall health and may have suggested ways to take good care of yourself. He or she also may have recommended tests. At home, you can help prevent illness with healthy eating, regular exercise, and other steps. Follow-up care is a gonzales part of your treatment and safety. Be sure to make and go to all appointments, and call your doctor if you are having problems. It's also a good idea to know your test results and keep a list of the medicines you take. How can you care for yourself at home? ?? Reach and stay at a healthy weight. This will lower your risk for many problems, such as obesity,diabetes, heart disease, and high blood pressure. ?? Get at least 30 minutes of exercise on most days of the week. Walking is a good choice. You also may want to do other activities, such as running, swimming, cycling, or playing tennis or team sports. ?? Do not smoke. Smoking can make health problems worse. If you need help quitting, talk to your doctor about stop-smoking programs and medicines. These can increase your chances of quitting for good. ?? Protect your skin from too much sun. When you're outdoors from 10 a.m. to 4 p.m., stay in the shade or cover up with clothing and a hat with a wide brim. Wear sunglasses that block UV rays. Even when it's cloudy, put broad-spectrum sunscreen (SPF 30 or higher) on any exposed skin. ?? See a dentist one or two times a year for checkups and to have your teeth cleaned. ?? Wear a seat belt in the car. ?? Limit alcohol to 2 drinks a day for men and 1 drink a day for women. Too much alcohol can cause health problems. Follow your doctor's advice about when to have certain tests. These tests can spot problems early. For men and women ?? Cholesterol. Your doctor will tell you how often to have this done based on your overall health and other things that can increase your risk for heart attack and stroke. ?? Blood pressure. Have your blood pressure checked during a routine doctor visit. Your doctor will tell you how often to check your blood pressure based on your age, your blood pressure results, and other factors. ?? Diabetes. Ask your doctor whether you should have tests for diabetes. ?? Vision. Experts recommend that you have yearly exams for glaucoma and other age-related eye problems. ?? Hearing. Tell your doctor if you notice any change in your hearing. You can have tests to find out how well you hear. ?? Colon cancer tests. Keep having colon cancer tests as your doctor recommends. You can have one ofseveral types of tests. ?? Heart attack and stroke risk. At least every 4 to 6 years, you should have your risk for heart attack and stroke assessed. Your doctor uses factors such as your age, blood pressure, cholesterol, andwhether you smoke or have diabetes to show what your risk for a heart attack or stroke is over the next 10 years. ?? Osteoporosis. Talk to your doctor about whether you should have a bone density test to find out whether you have thinning bones. Also ask your doctor about whether you should take calcium and vitamin D supplements. For women ?? Pap test and pelvic exam. You may no longer need a Pap test. Talk with your doctor about whether to stop or continue to have Pap tests. ?? Breast exam and mammogram. Ask how often you should have a mammogram, which is an X-ray of your breasts. A mammogram can spot breast cancer before it can be felt and when it is easiest to treat. ?? Thyroid disease. Talk to your doctor about whether to have your thyroid checked as part of a regular physical exam. Women have an increased chance of a thyroid problem. For men ?? Prostate exam. Talk to your doctor about whether you should have a blood test (called a PSA test)for prostate cancer. Experts disagree on whether men should have this test. Some experts recommend that you discuss the benefits and risks of the test with your doctor. ?? Abdominal aortic aneurysm. Ask your doctor whether you should have a test to check for an aneurysm. You may need a test if you ever smoked or if your parent, brother, sister, or child has had an aneurysm. When should you call for help? Watch closely for changes in your health, and be sure to contact your doctor if you have any problems or symptoms that concern you. Where can you learn more? 1. Go to [employer]/iWeebo or [employer]Earbitsrary. 2. Enter K859 in the search box. Current as of: October 28, 2016 Content Version: 11.7 ?? [id number] [employer] documented in this encounter Progress Notes Caryl Andrew RN - 03/01/2018 8:00 AM CDT Patient notified and transferred to scheduling. ...Danielle Andrew RN 03/01/2018 8:00 AM Placido Ott MD - 02/26/2018 6:47 PM CDT Phone: labs ok except vitamin B12 level is low, should be treated initially with b12 injections: weekly x 4, then monthly x 5 with recheck of labs at that time, probably change to oral form of med. Injection room notified, he should schedule with them. Placido Ott MD 02/26/2018 6:47 PM Placido Ott MD - 02/26/2018 9:54 AM CDT Routine Health Maintenance: Historical: Zaid Rutledge is a 82 y.o. old male Chief Complaint Patient presents with ??? ROUTINE HEALTH MAINTENANCE Current Concerns: Has noticed a little more gait instability, using a cane. No falls. Had one spell last Easter, none since. Typical symptoms of sweats, nausea, diplopia, some dizziness, shorter than previous spells. Has follow up with Dr. Feldman planned. History of hypertension, off low dose lisinopril and blood pressure remains on lower side. No recurrences of gout on low dose allopurinol, last uric acid level good. Patient accompanied by: unaccompanied Living situation: with spouse in house-two story Have you had a vision exam in the last 2 years? Yes Do you or anyone else have concerns about your drinking? No Do you feel safe in your current relationship and living arrangement? Yes Have you ever smoked more than 100 cigarettes total in your lifetime? Yes- Have you ever been screened for an Abdominal Aortic Aneurysm (AAA)? No . No screening recommended based on age. Mini-Cog Assessment Word Recall: 1 Clock Draw: 2 Total: 3 Additional Assessments Completed: PHQ-2 was administered today with a total score of: 0 Is a Health Care Directive on file? no. Pertinent Positives from Medicare Wellness Form: MEDICARE ANNUAL WELLNESS CONCERNS 02/26/2018 Do you have difficulty hearing? Yes Do [...] updated in the patient record as necessary. High-risk medications being taken: none Observed: BP 108/67 Pulse 75 Temp 97.7 ??F (36.5 ??C) (Oral) Resp 16 Ht 5' 7.75 (1.721 m) Wt 228 lb(103.4 kg) SpO2 98% BMI 34.92 kg/m2 General: Appears stated age, alert and comfortable HEENT: normal eyes, ears, throat, oropharynx Neck: thyroid normal Lungs: clear to auscultation, no wheezes or rales CV: regular rate and rhythm, normal S1 and S2 without murmur or click Abd: Soft, non-tender, no masses, no hepatomegaly or splenomegaly. : not examined Skin: no significant abnormalities noted Neuro: alert and oriented, CN intact, Marcella equally SLUMS Mental status exam: 25/30 consistent with MCI (graduate education) - missed 2 of 5 objects to remember, missed one 4 digit backward number, incorrect on one answer to questions about short story. Assessment/Plan: (Z00.00) Encounter for Medicare annual wellness exam (primary encounter diagnosis) - All health caremaintenance and preventive counseling issues addressed Plan: Medicare Annual Wellness - [facility] Pt given flu, elected to have shingrix (ABN done) as not available at his pharmacy (Z00.00) Encounter for routine adult health examination without abnormal findings Plan: as aboe (Z23) Encounter for immunization Plan: Influenza IIV3 (Trivalent) Fluzone Highdose, 65+ Yrs (34932) Done (I10) Essential hypertension (HRC) - off meds with nl blood pressure Plan: Basic Metabolic Panel, Basic Metabolic [place] Foreman (G31.84) MCI (mild cognitive impairment) - will check screening labs. Plan: Vitamin B12 Only, TSH, SENSITIVE with Free T4, Free T3 if needed, Vitamin B12 Only, TSH, SENSITIVE with Free T4, Free T3 if needed (M10.00) Idiopathic gout, unspecified chronicity, unspecified site Plan: ALT (SGPT), ALT (SGPT) Counseling and education provided today includes proper nutrition and health habits, fall prevention, and for those items ordered above. Plan for future preventive services in Patient Instructions. Patient also counseled on: -healthy diet -protection from UV light -safety belt use -aspirin use -recommended immunizations Medication reduction opportunity: None Placido Ott MD 02/26/2018, 9:54 AM documented in this encounter Plan of Treatment Not on filedocumented as of this encounter Procedures Procedure Name Priority Date/Time Associated Diagnosis Comme nts BASIC METABOLIC Routine 02/26/2018 11:20 Essential Results for this PANEL AM CDT hypertension procedure are i n the results section. TSH, SENSITIVE Routine 02/26/2018 11:20 MCI (mild cognitive Re sults for this (WITH REFLEX) AM CDT impairment) procedure are in the results section. VITAMIN B12 ONLY Routine 02/26/2018 11:20 MCI (mild cognitive Results for this AM CDT impairment) procedure are i n the results section. ALT (SGPT) Routine 02/26/2018 11:20 Idiopathic gout, Results for this AM CDT unspecified procedure are i n chronicity, the results unspecified site section. documented in this encounter Results ALT (SGPT) (02/26/2018 11:20 AM CDT) athologist Signature ALT (SGPT) 27 0 - 55 U/L [facility] Specimen Anatomical Collection Method Collection Time Receive d Time (Source) Location / / Volume Laterality 02/26/2018 11:20 02/26/2018 AM CDT 11:21 AM CDT Narrative [facility] - 02/26/2018 12:10 PM CDT Performed at [facility] [address], [address] [place] [address] Placido Ott MD LAB_1 Performing Organization Address City/State/ZIP Code Phon e Number [facility] [phone] TSH, SENSITIVE with Free T4, Free T3 if needed (02/26/2018 11:20 AM CDT) athologist Signature TSH, with 0.78 0.30 - [facility] Reflex 4[facility]50 [facility] uIU/ml Specimen Anatomical Collection Method Collection Time Receive d Time (Source) Location / / Volume Laterality 02/26/2018 11:20 02/26/2018 AM CDT 11:21 AM CDT Narrative [facility] - 02/26/2018 2:43 PM C DT Performed at [facility], [address] [place] [id number] Placido Ott MD LAB_1 Performing Organization Address City/State/ZIP Code Phon e Number [facility] [phone] Vitamin B12 Only (02/26/2018 11:20 AM CDT) athologist Signature Vitamin B12 233 213 - 816 [facility] pg/ml Specimen Anatomical Collection Method Collection Time Receive d Time (Source) Location / / Volume Laterality 02/26/2018 11:20 02/26/2018 AM CDT 11:21 AM CDT Narrative [facility] - 02/26/2018 6:30 PM C DT Performed at [facility], [address] ??[address] Placido Ott MD LAB_1 Performing Organization Address City/State/ZIP Code Phon e Number [facility] [phone] (ABNORMAL) Basic Metabolic Panel (02/26/2018 11:20 AM CDT) [facility] gist Method Time Signature Sodium 140 136 - 145 [facility] mmol/L [facility] Potassium 4.0 3.5 - 5.1 [facility] mmol/L [facility] Chloride 106 98 - 109 [facility] mmol/L [facility] CO2 26 20 - 29 [facility] mmol/L [facility] Anion Gap 8 7 - 16 [facility] (calc.) mmol/L [facility] Glucose 90 70 - 180 [facility] mg/dl [facility] Calcium 9.2 8.4 - [facility] 10.4 [facility] mg/dl BUN 16 7 - 26 [facility] mg/dl [facility] Creatinine 1.23 (H) 0.73 - [facility] 1.18 [facility] mg/dl GFR, Estimated 54 (L) >60 [facility] ml/min/1. [facility] 73m2 Comment: The National Kidney Disease Education Pr ogram suggests measuring Cystatin C in patients with eGFRcrea of 45 to 59 ml/min/1.73^2 who do not have other markers of kidney damage (i.e.,elevated urine Albumin/Creatinine Ratio or a prior Cys tatin C confirming the presence of Chronic Kidney Disease.) GFR, Est., If Black >60 >60 ml/min/1.73m2 [facility] Specimen Anatomical Collection Method Collection Time Receive d Time (Source) Location / / Volume Laterality 02/26/2018 11:20 02/26/2018 AM CDT 11:21 AM CDT Narrative [facility] - 02/26/2018 12:10 PM CDT Performed at [facility], [address] [place] [address] Placido Ott MD LAB_1 Performing Organization Address City/State/ZIP Code Phon e Number [facility] [phone] documented in this encounter Visit Diagnoses Diagnosis Encounter for Medicare annual wellness e xam - Primary Encounter for routine adult health exami nation without abnormal findings Encounter for immunization Need for other specified prophylactic va ccination against single bacterial disease Essential hypertension (HRC) Unspecified essential hypertension MCI (mild cognitive impairment) Mild cognitive impairment, so stated Idiopathic gout, unspecified chronicity, unspecified site documented in this encounter Care Teams Electric Golf Cart Repairer Relationship Specialty Start Date End Date Placido Ott MD PCP - General Internal Medicine 10/26/17 10/17/21 [address] [place] [address] documented as of this encounter
--- OUTSIDE RECORDS SUMMARY | 2022-02-24 12:21 | XMS_ITS | Encounter Summary ---
:1935 Author Organization [email or web address] Address [address], [place] [address] Care Team Providers Name Role Phone Morgan Bass DO Primary Care Provider Reason for Visit Reason Comments ORDERS Catheters Encounter Details Date Type Department Care Team Description 08/31/2017 Telephone [facility] Waqas Rodney, ORDERS (Catheters) [address] [place] [address] 17 [address] [phone] [place], [place] [address] (Wo rk) Social History [...] as of this encounter Nursing Notes Tania Calloway RN - 09/02/2017 9:45 AM CDT Spoke with Flavio at [facility] and informed her Dr. Rodney okayed additional 30 catheters. Tania Calloway RN 09/02/2017, 9:51 AM Tania Calloway RN - 09/02/2017 7:59 AM CDT Per answering service, office is closed for another hour and half. Will contact Flavio at a later time. Tania Calloway RN 09/02/2017, 8:02 AM Waqas Rodney MD - 09/01/2017 7:52 AM CDT Yes can approve Deepika Arellano RN - 08/31/2017 3:10 PM CDT Received phone call from Noah from [facility]. Noah states that the patient is currently in [place]. Patient states that he has a UTI and has been increasing his SIC to 7 times. Patient normally SIC 6 x. He is currently receiving 180 catheters per month. Noah would like to know if an additional 30 catheters could be approved. Please advise. Deepika Arellano RN 08/31/2017, 3:12 PM documented in this encounter Plan of Treatment Not on filedocumented as of this encounter Visit Diagnoses Not on filedocumented in this encounter Care Teams Tobacco Prizer Relationship Specialty Start Date End Date Morgan Bass DO PCP - General Family Practice 10/02/16 10/25/17 [address] [place] [address] documented as of this encounter
--- OUTSIDE RECORDS SUMMARY | 2022-02-24 12:21 | XMS_ITS | Encounter Summary ---
:1935 Author Organization [facility] Address [address] [address] Care Team Providers Name Role Phone Placido Ott MD Primary Care Provider Reason for Visit Reason Comments Refill allopurinol (ZYLOPRIM) 100 M G tablet [Pharmacy Med Name: ALLOPURINOL 100MG TABLETS] Encounter Details Date Type Department Care Team Description 03/03/2018 [facility]ill [facility] Eid Iván Ref ill (allopurinol [facility] [place] [place] actice DO [place] (ZYLOPRIM) 100 MG [address] tablet [[place] [address] [address] Name: ALLOPURINOL [phone] [place], [place] [address] TABL ETS]) [id number] (Wo rk) Social History Tobacco Use Types [...] encounter Nursing Notes Shauna Dawson RN - 03/05/2018 4:02 PM CDT Will deny as duplicate Shauna Dawson RN 03/05/2018, 4:02 PM Interface, Out [employer] Prov Query - 03/03/2018 12:41 PM CDT allopurinol (ZYLOPRIM) 100 MG tablet [Pharmacy Med Name: ALLOPURINOL 100MG TABLETS] Endocrinology: Gout Agents - Allopurinol -> GFR ([place]) was found, but the result could not be read. -> Refill x 9 months, qty: 90, refills: 2 (until due for a(n) HCT check, HGB check, PLT check, RBC check, RDW check and WBC check) Last qualifying visit: 02/26/2018 (in INTERNAL MEDICINE) Next scheduled visit: None Last ordered by IVÁN EID: 02/01/2018 (30 days ago) QTY: 30, Refills: 0, Sig: take 1 tablet by mouth every day (unchanged) Cr: 1.23 mg/dL on 02/26/2018 ALT: 27 U/L on 02/26/2018 HGB: 15.1 g/dL on 09/15/2017 GFR ([place]): Taken on 02/26/2018 HCT: 44.7 % on 09/15/2017 Age: 82 PLT: 243 k/cmm on 09/15/2017 RBC: 4.88 m/cmm on 09/15/2017 RDW: 13.5 % on 09/15/2017 WBC: 7.3 k/cmm on 09/15/2017 Powered by [employer], Reference: [id number], 03/03/2018 12:41:20 PM CDT, Pool: PETER JEFFERY RN ([id number]) Interface, Out [employer] Query - 03/03/2018 12:41 PM CDT The following lab order(s) may [...] tests.; this will dictate followup. Interface, Out [employer] Query - 03/03/2018 12:41 PM CDT The following lab order(s) may [...] Ott MD 02/26/2018 6:47 PM Interface, Out [employer] [place] Prov Query - 03/03/2018 12:41 PM CDT The following lab order(s) may [...] on filedocumented in this encounter Care Teams In Service Education Teacher Relationship Specialty Start Date End Date Placido Ott MD PCP - General Internal Medicine 10/26/17 10/17/21 [address] [place] [address] documented as of this encounter
--- OUTSIDE RECORDS SUMMARY | 2022-02-24 12:21 | XMS_ITS | Encounter Summary ---
:1935 Author Organization [facility] Address [address] [address] Care Team Providers Name Role Phone Placido Ott MD Primary Care Provider Reason for Visit Reason Comments Pre-visit Planning Encounter Details Date Type Department Care Team Description 11/06/2017 Telephone [facility] Placido Ott e-visit Planning Beatriz Spence MD Medicine [address] [place] [address] [place], [place] [phone] [address] Social History Tobacco Use Types Packs/Day Years [...] documented as of this encounter Nursing Notes Kae Mireles - 11/10/2017 10:50 AM CDT Patient was told at time of scheduling to come 15 mins early Kae Mireles 11/10/2017, 10:50 AM Catalino Watters - 11/06/2017 9:59 AM CDT Message left for the patient to return call to the clinic. Please give patient the message below: Please arrive 20 minutes early for paperwork and rooming questions prior to seeing Dr. Ott on 11/13. Catalino Watters 11/06/2017, 9:59 AM documented in this encounter Plan of Treatment Not on filedocumented as of this encounter Visit Diagnoses Not on filedocumented in this encounter Care Teams Media Intern Relationship Specialty Start Date End Date Placido Ott MD PCP - General Internal Medicine 10/26/17 10/17/21 [address] [place] [address] documented as of this encounter
--- OUTSIDE RECORDS SUMMARY | 2022-02-24 12:21 | XMS_ITS | Encounter Summary ---
:1935 Author Organization [facility] Address [address], [place] [address] Care Team Providers Name Role Phone Kali Morgan [place] Primary Care Provider Reason for Visit Reason Comments RESULTS, TEST UA Encounter Details Date Type Department Care Team Description 09/16/2017 Telephone [facility] Waqas Rodney TEST (UA) [facility] MD [facility] [address] [place] [address] [place], [place] [phone] [address] Social History Tobacco Use Types Packs/Day Years [...] encounter Nursing Notes Tania Calloway RN - 09/16/2017 2:28 PM CDT Patient notified. Tania Calloway RN 09/16/2017, 2:29 PM Notes Recorded by Waqas Rodney MD on 09/16/2017 at 1:05 PM plesae call and inform no UTI documented in this encounter Plan of Treatment Not on filedocumented as of this encounter Visit Diagnoses Not on filedocumented in this encounter Care Teams Certified Medical Biller Relationship Specialty Start Date End Date Morgan Bass DO PCP - General Family Practice 10/02/16 10/25/17 [address] [place] [address] documented as of this encounter
--- OUTSIDE RECORDS SUMMARY | 2022-02-24 12:21 | XMS_ITS | Encounter Summary ---
:1935 Author Organization [facility] Address [address], [place] [address] Care Team Providers Name Role Phone Morgan Bass Primary Care Provider Reason for Visit Reason Comments Refill allopurinol (ZYLOPRIM) 100 M G tablet [Pharmacy Med Name: ALLOPURINOL 100MG TABLETS] Encounter Details Date Type Department Care Team Description 01/30/2017 Refill [facility] Ramses Cleary, Refill (allopurinol [facility] anjelica MURRAY (ZYLOPRIM) 100 MG [address] tablet [[place] [address] [address] Name: ALLOPURINOL [phone] [place], [place] [address] TABLETS ]) [id number] Social History Tobacco Use Types Packs/Day Years [...] encounter Nursing Notes Adelaide Rehman RN - 01/30/2017 7:50 PM CDT Ordered per Refill Standing Order/Protocol. Adelaide Rehman RN 01/30/2017, 7:50 PM Interface, Out Surescripts Prov Query - 01/30/2017 5:14 PM CDT allopurinol (ZYLOPRIM) 100 MG tablet [Pharmacy Med Name: ALLOPURINOL 100MG TABLETS] Protocol: Endocrinology: Gout Agents - Allopurinol -> GFR (Coral) was found, but the result could not be read. -> Refill x 9 months (until due for a(n) Cr check and GFR (Coral) check) Last qualifying visit: 12/29/2016 (in [facility]) Next scheduled visit: None Last ordered by RAMSES CLEARY E: 11/02/2016 (89 days ago) QTY: 90, Refills: 0, Sig: take 1 tablet by mouth every day (unchanged) Cr: 1.08 mg/dL on 10/08/2016 ALT: 31 U/L on 10/28/2016 HGB: 15.9 g/dL on 12/29/2016 GFR (Coral): Taken on 10/08/2016 HCT: 47 % on 12/29/2016 Age: 81 PLT: 187 k/cmm on 12/29/2016 RBC: 5.11 m/cmm on 12/29/2016 RDW: 13.4 % on 12/29/2016 WBC: 6.6 k/cmm on 12/29/2016 Powered by [employer], Reference: [id number], 01/30/2017 5:14:56 PM CDT, Pool: PETER JEFFERY RN ([id number]) Interface, Out Megadyne Prov Query - 01/30/2017 5:14 PM CDT The following lab order(s) may be associated with the Result Note below: MR BRAIN W/WO IV CONT Notes Recorded by Michelle Moreira CMA on 10/09/2016 at 9:04 AM I left a message for patient to call back, see telephone encounter for details. Michelle Moreira CMA. 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 I would see neurology on Thursday as planned. Interface, Out Megadyne Prov Query - 01/30/2017 5:14 PM CDT The following lab order(s) may be associated with the Result Note below: ALT (SGPT) Notes Recorded by Waqas Rodney MD on 10/28/2016 at 4:49 PM ifnorm PSA stable (actually lowest it has been in years). Good news. PSA twice a year. documented in this encounter Plan of Treatment Not on filedocumented as of this encounter Visit Diagnoses Not on filedocumented in this encounter Care Teams Clinical Research Monitor Relationship Specialty Start Date End Date Morgan Bass DO PCP - General Family Practice 10/02/16 10/25/17 [address] [place] [address] documented as of this encounter
--- OUTSIDE RECORDS SUMMARY | 2022-02-24 12:21 | XMS_ITS | Encounter Summary ---
:1935 Author Organization [facility] Address [address], [place] [address] Care Team Providers Name Role Phone No Primary/Referring, Phy Primary Care Provider Unavailable Encounter Details Date Type Department Care Team Description 09/16/2017 Scanned History External to Transferred Record, [facility] Social History Tobacco Use Types Packs/Day Years [...] on filedocumented in this encounter Care Teams Auto Clutch Specialist Relationship Specialty Start Date End Date No Primary/Referring, Phy PCP - General 12/11/21 documented as of this encounter
--- OUTSIDE RECORDS SUMMARY | 2022-02-24 12:21 | XMS_ITS | Encounter Summary ---
:1935 Author Organization [facility] Address [address], [place] [address] Care Team Providers Name Role Phone Morgan Bass DO Primary Care Provider Encounter Details Date Type Department Care Team Description 01/20/2017 Telephone [facility] Waqas Rodney MD [facility] [address] [place] [address] [address] [place] [address] [phone] Social History Tobacco Use Types Packs/Day Years [...] encounter Nursing Notes Tania Calloway RN - 01/20/2017 10:24 AM CDT Called home phone and patient's states to call patient's cell phone. Spoke with patient and informed patient of below message. Please inform patient his UA is negative for any infection. ??Recommend no treatment. ??If he continues to have dysuria, he may want to try AZO, sold OTC. ??Only use for a few days, will stain urine and discontinue if unable to void (can cause urinary retention). Val Jordan APRN, WAGE ADJUSTER ??01/19/2017, 2:17 PM Patient agrees with the plan and verbalizes understanding. Tania Calloway RN 01/20/2017, 10:28 AM documented in this encounter Plan of Treatment Not on filedocumented as of this encounter Visit Diagnoses Not on filedocumented in this encounter Care Teams Converting Operator Relationship Specialty Start Date End Date Morgan Bass DO PCP - General Family Practice 10/02/16 10/25/17 [address] [place] [address] documented as of this encounter
--- OUTSIDE RECORDS SUMMARY | 2022-02-24 12:21 | XMS_ITS | Encounter Summary ---
:1935 Author Organization [facility] Address [address], [place] [address] Care Team Providers Name Role Phone Placido Ott MD Primary Care Provider Reason for Visit Reason Comments Establish Care Encounter Details Date Type Department Care Team Description 11/13/2017 Office Visit [facility] Placido Ott stenosis, lumbar region, without neurogenic claudication (Primary Dx); Beatriz Spence MD Irritable bowel syndrome, unspecified ty pe; Medicine [address] Mild persistent asthma witho ut complication; [address] Gastroesophageal reflux disease, esophag itis presence not specified; [place] Essential h ypertension [id number] [phone] Social History Tobacco Use Types Packs/Day Years [...] Sign Reading Time Taken Comments Blood Pressure 127/83 11/13/2017 9:36 AM CDT Pulse 75 11/13/2017 9:36 AM CDT Temperature 36.9 ??C (98.5 ??F) 11/13/2017 9:36 AM CDT Respiratory Rate 18 11/13/2017 9:36 AM CDT Oxygen Saturation - - Inhaled Oxygen Concentration - - Weight 103.4 kg (228 lb) 11/13/2017 9:36 AM CDT Height - - Body Mass Index 34.16 01/07/2017 1:03 PM CDT documented in this encounter Patient Instructions Patient InstructionsPlacido Ott MD - 11/13/2017 9:30 AM CDT 1. Trial off of the lisinopril, recheck blood pressure every 2 -3 weeks for 3 times. 2. Trial of citrucel as directed on the container to help regulate the bowels 3. No change in other medications. 4. Recommend 3 month recheck 5. I will write a letter about the recycling bin and send to you. I recommend that you get Shingrix - a new immunization to prevent Shingles and Post Herpetic Neuralgia. Shingles is a painful blistering rash. About 1 in 10 people who get shingles will go on to develop Post Herpetic Neuralgia, a very painful condition that can last from months to years. Why should I get Shingrix? ?? Shingrix is over 90% effective in preventing shingles and post herpetic neuralgia. Tell me more... ?? Shingrix is recommended for most people 50 years and older. Even patients that have already gotten the Zostavax immunization for shingles, or have already had shingles, should receive Shingrix. Shingrix is given in a series of 2 shots 2 months apart. Are there side effects? ?? Most people got a sore arm after getting Shingrix. ?? Some people had redness and swelling in the place where they got the shot. ?? One in six people also feel tired or experience some muscle pain, a headache, or shivering. The symptoms were severe enough to prevent regular activities for two to three days. Insurance Coverage ?? To avoid unexpected costs, call our [facility] Business Office at [phone] before scheduling an appointment. They can help you decide if your Shingrix vaccination is covered at a clinic or if you are covered at a pharmacy. ?? If you have no insurance for immunizations, Public Health may be able to give them at a low cost.Call to see if you qualify and to make an appointment. [facility] ?? [phone] to see if you qualify ?? [phone] for appointment [facility] ?? [phone] for appointment and information . documented in this encounter Progress Notes Placido Ott MD - 11/13/2017 11:49 AM CDT Phone: electrolytes normal, mild kidney dysfunction suggested, but similar to most past readings dating back 4 years. Placido Ott MD 11/13/2017 11:49 AM Placido Ott MD - 11/13/2017 9:30 AM CDT Subjective: 82-year-old male who is here to begin establishment of primary care, and discuss multiple medical problems. Patient with a history of chronic back pain, previous spinal surgeries x2, last 10/2015, decompression for spinal stenosis, helped with leg pain, back pain biggest issue at present. Will occur within one block of ambulation. Relieved by rest. Prolonged standing can also bring it on. Concerned about some intermittent loose stools, sometimes alternating with constipation. Has been a chronic issue. No significant abdominal pain. Last colonoscopy 2006. History of prostate cancer, watchful waiting. Elevated prostate-specific antigens. Dr. newsome onto his his urologist Chronic urinary retention, with previous TUR. He does self straight catheterizations about five times per day. Episodic dizziness, followed by Dr. Feldman in neurology. 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 He is on 325 mg aspirin and pravastatin. He also is on lisinopril for hypertension. Also has ventriculomegaly, without significant response to lumbar puncture. He does think his walking has gotten a little bit worse since last seen. Had an emergency room visit for orchitis and epididymitis while traveling. Resolved with a couple ofweeks of Levaquin. Of interest he had been on Levaquin back in June for respiratory infection anddeveloped a hamstring tendinitis. This resolved. Tolerated the second round of Levaquin without difficulty. History of gastroesophageal reflux disease, has required high-dose omeprazole at twice a day dosing to resolve symptoms. He has not tried for a while to go back to once daily dosing. History of mild persistent asthma, on inhalers and Singulair. Also with allergic rhinitis on Flonase. He does see an outside technology analyst. I have personally reviewed the patient's allergies, medications, past medical history, problem list, lab results and health maintenance record in detail and updated the patient record as necessary. 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 OBJECTIVE: BP 127/83 Pulse 75 Temp 98.5 ??F (36.9 ??C) (Oral) Resp 18 Wt 228 lb (103.4 kg) BMI 34.16 kg/m2 General - pleasant, no acute distress HEENT - PERRL, conjunctiva pink, no scleral icterus; Mouth - mucous membranes moist without oral lesions Neck - supple, no lymphadenopathy or thyromegaly Lungs - normal respiratory effort, clear to auscultation Cardiovascular - regular rate and rhythm, no murmur, rubs, or gallups Abdomen - obese, bowels sounds present, soft, non-tender, noorganomegaly or masses Ext - no cyanosis, clubbing, or edema Results for orders placed or performed in visit on 11/13/17 Basic Metabolic Panel Result Value Ref Range Sodium 142 136 - 145 mmol/L Potassium 4.6 3.5 - 5.1 mmol/L Chloride 108 98 - 109 mmol/L CO2 27 20 - 29 mmol/L Anion Gap (calc.) 7 7 - 16 mmol/L Glucose 103 70 - 180 mg/dl Calcium 9.2 8.4 - 10.4 mg/dl BUN 19 7 - 26 mg/dl Creatinine 1.21 (H) 0.73 - 1.18 mg/dl GFR, Estimated 55 (L) >60 ml/min/1.73m2 GFR, Est., If Black >60 >60 ml/min/1.73m2 Assessment/Plan (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 Plan: Tylenol, local cares, may need to move to a walker at some point. (K58.9) Irritable bowel syndrome, unspecified type - suspect intermittent loose stools are functional irritable bowel. Plan: Trial of fiber supplementation, which she has not done previously. (J45.30) Mild persistent asthma without complication (HRC) - currently well controlled Plan: The current medical regimen is effective; continue present plan and medications. (K21.9) Gastroesophageal reflux disease, esophagitis presence not specified Plan: Try cutting back to one omeprazole daily. (I10) Essential hypertension (HRC) - controlled just on low-dose lisinopril. Patient would really like to try cutting back on medications. Plan: Basic Metabolic Panel, Basic Metabolic Panel Okay for a trial off lisinopril, but he should have regular recheck of blood pressure. Should bloodpressure go up again would restart the medication. Placido Ott MD 11/13/2017 6:36 PM documented in this encounter Plan of Treatment Not on filedocumented as of this encounter Procedures Procedure Name Priority Date/Time Associated Diagnosis Comme nts BASIC METABOLIC Routine 11/13/2017 10:40 Essential Results for this PANEL AM CDT hypertension procedure are i n the results section. documented in this encounter Results (ABNORMAL) Basic Metabolic Panel (11/13/2017 10:40 AM CDT) Patholo gist Method Time Signature Sodium 142 136 - 145 [facility] mmol/L [facility] Potassium 4.6 3.5 - 5.1 [facility]/L [facility] Chloride 108 98 - 109 [facility]/L [facility] CO2 27 20 - 29 [facility]/L [facility] Anion Gap 7 7 - 16 [facility] (calc.) mmol/L [facility] Glucose 103 70 - 180 [facility] mg/dl [facility] Calcium 9.2 8.4 - [facility] 10.4 [facility] mg/dl BUN 19 7 - 26 [facility] mg/dl [facility] Creatinine 1.21 (H) 0.73 - [facility] 1.18 [facility] mg/dl GFR, Estimated 55 (L) >60 [facility] ml/min/1. [facility] 73m2 Comment: [...] Time (Source) Location / / Volume Laterality 11/13/2017 10:40 11/13/2017 AM CDT 10:50 AM CDT Narrative [facility] - 11/13/2017 11:34 AM CDT Performed at [place] [facility], [address] [place] [address] Placido Ott MD LAB_1 Performing Organization Address City/State/ZIP Code Phon e Number [facility] [phone] documented in this encounter Visit Diagnoses Diagnosis Spinal stenosis, lumbar region, without neurogenic claudication - Primary Irritable bowel syndrome, unspecified ty pe Mild persistent asthma without complicat ion (HRC) Unspecified asthma Gastroesophageal reflux disease, esophag itis presence not specified Essential hypertension (HRC) Unspecified essential hypertension documented in this encounter Care Teams Vascular Nurse Relationship Specialty Start Date End Date Placido Ott MD PCP - General Internal Medicine 10/26/17 10/17/21 [address] [place] [address] documented as of this encounter
--- OUTSIDE RECORDS SUMMARY | 2022-02-24 12:21 | XMS_ITS | Encounter Summary ---
:1935 Author Organization [facility] Address [address] [address] Care Team Providers Name Role Phone Placido Ott MD Primary Care Provider Reason for Visit Reason Comments Vitamin B12 Injection Encounter Details Date Type Department Care Team Description 03/05/2018 Nursing Visit [facility] Other vitamin B12 [place] Nursing deficiency anemia [address] [place] (Primary Dx) [place] [address] Social History Tobacco Use Types Packs/Day [...] documented as of this encounter Progress Notes Michaela Mcdowell LPN - 03/05/2018 8:53 AM CDT Zaid Rutledge here for Vitamin B-12 Injection. Ordered per Namrata. See orders. patient verbalized understanding of risks, possible side effects, and benefits of the injection and gave permission to administer Vitamin B 12. No precautions or contraindications noted. Tolerated injection well. See immunization/injection report for administration documentation. Michaela Mcdowell LPN documented in this encounter Plan of Treatment Not on filedocumented as of this encounter Visit Diagnoses Diagnosis Other vitamin B12 deficiency anemia - Pr imary documented in this encounter Administered Medications Active Administered Medications - up to 3 most recent administrations Medication Order MAR Action Action Date Dose Rate Site cyanocobalamin ([id number]) Given 04/28/2018 3:13 PM 1,000 mcg Left Deltoid injection 1,000 mcg PUMP ATTENDANT 1,000 mcg, Intramuscular, OTHER, Starting on 03/01/18 at 0934, Until Discontinued, For 9 doses, . Given 03/29/2018 9:01 AM CDT 1,000 mcg Right Deltoid Given 03/22/2018 9:12 AM CDT 1,000 mcg Left Deltoid documented in this encounter Care Teams Glass Driller Relationship Specialty Start Date End Date Placido Ott MD PCP - General Internal Medicine 10/26/17 10/17/21 [address] [place] [address] documented as of this encounter
--- OUTSIDE RECORDS SUMMARY | 2022-02-24 12:21 | XMS_ITS | Encounter Summary ---
:1935 Author Organization [facility] Address [address], [place] [address] Care Team Providers Name Role Phone Morgan Bass DO Primary Care Provider [phone] Reason for Visit Reason Comments QUESTIONS, GENERAL Encounter Details Date Type Department Care Team Description 08/26/2017 Telephone [facility] [address] [place] [address] [place], [place] [phone] [address] Social History Tobacco Use Types Packs/Day Years [...] encounter Nursing Notes Tania Calloway RN - 08/26/2017 2:39 PM CDT Spoke with patient and informed him per Val Jordan CNM, Cipro should have decreased swelling after48 hours of taking, if ice/heat and ibuprofen are not decreasing swelling, patient will need to seeka provider in [place] and have a testicular US. Patient states he took 3 ibuprofen about 3 hours ago and that helped with the pain. States the testicle is the size of an egg. Patient advised to try the heat/ice and ibuprofen for another day and see if swelling decreases, if not to see a provider in [place]. Patient verbalized understanding and agrees with the plan. Tania Calloway RN 08/26/2017, 2:47 PM Eileen Rai - 08/26/2017 2:24 PM CDT Please use [phone] Magdalena Klein - 08/26/2017 2:00 PM CDT Patient returned call. Please contact at number listed above. Best time to reach patient: Anytime Ok to leave a detailed message:Yes Magdalena Bass............... 08/26/2017 2:00 PM Tania Calloway RN - 08/26/2017 9:37 AM CDT Patient returned call and states [address] Rodney prescribed Cipro so patient has been taking Cipro twice a day since Thursday night for swollen right testicle. Denies hematuria. States he has pain in right scrotum, rates pain 4/10 when sitting. States pain is not necessarily restricted to just the testicle but also in abdomen, iman like has to go to the bathroom but he did just SIC. Has not tried ice or heat or ibuprofen. States he does not think the Cipro is helping as the swelling has increased. States right testicle is 5 times larger than left one. Is in [place] currently at [id number], and would like a call back on her phone [phone] or patient's cell phone [phone]. Corporate Attorney advised patient to try heat, ice, and ibuprofen. Patient requests message be sent to Dr. Rodney to see what he should do. Patient will try ice and ibuprofen in the meantime. Please advise. Tania Calloway RN 08/26/2017, 9:58 AM Tania Calloway RN - 08/26/2017 9:33 AM CDT Left message for patient to return call. Tania Calloway RN 08/26/2017, 9:34 AM Magdalena Klein - 08/26/2017 8:47 AM CDT Symptoms [[facility]: If this call is after 3 p.m., communicate to patient: If we are not able to get back to you by the end of the day and your symptoms worsen, please contact the Careline [phone] OR at .] Describe your symptoms (if pain, include location): Swollen right testicle. When did they start? 3 days ago. What have you tried at home (please specify medication name, if any)? Antibiotics Have you recently been seen for this? No If a prescription is needed, would you like it filled at a [facility] pharmacy? No: [[facility]: Please add the selected pharmacy to Meds & Orders] Is it okay to leave a detailed message on your voicemail? Yes Is there anything else I can help you with today? Magdalena Bass Please route and warm transfer to: EULOGIO Keenan documented in this encounter Plan of Treatment Not on filedocumented as of this encounter Visit Diagnoses Not on filedocumented in this encounter Care Teams Afternoon Nanny Relationship Specialty Start Date End Date Morgan Bass DO PCP - General Family Practice 10/02/16 10/25/17 [address] [place] [address] documented as of this encounter
--- OUTSIDE RECORDS SUMMARY | 2022-02-24 12:21 | XMS_ITS | Encounter Summary ---
:1935 Author Organization [facility] Address [address], [place] [address] Care Team Providers Name Role Phone Placido Ott MD Primary Care Provider Reason for Visit Reason Comments Pre-visit Planning Encounter Details Date Type Department Care Team Description 02/19/2018 Telephone [facility] Placido Ott e-visit Planning Beatriz Spence MD Medicine [address] [place] [place] [address] [place], [place] [phone] [address] Social History Tobacco Use Types Packs/Day Years [...] encounter Nursing Notes Jael Blair - 03/31/2018 11:32 AM CDT Patient was notified of message below. Patient has no further questions. Jael Blair ....................................03/31/2018 11:32 AM Catalino Watters - 02/24/2018 11:17 AM CDT 2nd attempt. Please relay message below. Catalino Watters 02/24/2018, 11:17 AM Can Lowry - 02/19/2018 2:25 PM CDT Message left for the patient to return call to the clinic. Please advise patient to arrive 30 minutes early for FASTING lab work prior to seeing Dr. Ott. Can Lowry................... 02/19/2018, 2:25 PM documented in this encounter Plan of Treatment Not on filedocumented as of this encounter Visit Diagnoses Not on filedocumented in this encounter Care Teams Afternoon Nanny Relationship Specialty Start Date End Date Placido Ott MD PCP - General Internal Medicine 10/26/17 10/17/[address] [place] [address] documented as of this encounter
--- OUTSIDE RECORDS SUMMARY | 2022-02-24 12:21 | XMS_ITS | Encounter Summary ---
:1935 Author Organization [facility] Address [address], [place] [address] Care Team Providers Name Role Phone Placido Ott MD Primary Care Provider Encounter Details Date Type Department Care Team Description 02/26/2018 Notes/Orders [facility] Placido Ott tamin [facility] Beatriz Spence MD deficiency (Primary Medicine [address] Dx) [address] [place] [address] [phone] Social History Tobacco Use Types Packs/Day Years [...] documented as of this encounter Progress Notes Silvina Phoenix LPN - 02/26/2018 6:42 PM CDT Injection pending, please review and sign. Silvina Phoenix LPN 03/01/2018, 9:16 AM documented in this encounter Plan of Treatment Not on filedocumented as of this encounter Visit Diagnoses Diagnosis Vitamin B12 deficiency (HRC) - Primary Other B-complex deficiencies documented in this encounter Care Teams Financial Planner Relationship Specialty Start Date End Date Placido Ott MD PCP - General Internal Medicine 10/26/17 10/17/21 [address] [place] [address] documented as of this encounter
--- OUTSIDE RECORDS SUMMARY | 2022-02-24 12:21 | XMS_ITS | Encounter Summary ---
:1935 Author Organization [facility] Address [address], [place] [address] Care Team Providers Name Role Phone Placido Ott MD Primary Care Provider Reason for Visit Reason Comments Refill allopurinol (ZYLOPRIM) 100 M G tablet [Pharmacy Med Name: ALLOPURINOL 100MG TABLETS] Encounter Details Date Type Department Care Team Description 01/31/2018 Refill [facility] Eid Iván Ref ill (allopurinol [facility] [place], (ZYLOPRIM) 100 MG [address] tablet [[place] [address] [address]VD Name: ALLOPURINOL [phone] [place], [place] 100MG TABL ETS]) [id number] (Wo rk) Social History Tobacco Use Types [...] documented as of this encounter Nursing Notes Michaela Cerda, EULOGIO - 02/01/2018 3:04 PM CDT 30 day courtesy fill given. A note was placed on the appointment to get overdue ALT for med refill. Michaela Cerda RN 02/01/2018, 3:04 PM Interface, Out Surescripts Prov Query - 01/31/2018 2:42 PM CDT allopurinol (ZYLOPRIM) 100 MG tablet [Pharmacy Med Name: ALLOPURINOL 100MG TABLETS] Endocrinology: Gout Agents - Allopurinol -> ALT is overdue (performed over 15 months ago, required every 12 months) -> GFR ([place]) was found, but the result could not be read. Last qualifying visit: 11/13/2017 (in INTERNAL MEDICINE) Next scheduled visit: 02/26/2018 (in INTERNAL MEDICINE) Last ordered by IVÁN EID: 10/23/2017 (100 days ago) QTY: 90, Refills: 0, Sig: take 1 tablet by mouth every day (unchanged) Cr: 1.21 mg/dL on 11/13/2017 ALT: 31 U/L on 10/28/2016 HGB: 15.1 g/dL on 09/15/2017 GFR ([place]): Taken on 11/13/2017 HCT: 44.7 % on 09/15/2017 Age: 82 PLT: 243 k/cmm on 09/15/2017 RBC: 4.88 m/cmm on 09/15/2017 RDW: 13.5 % on 09/15/2017 WBC: 7.3 k/cmm on 09/15/2017 Powered by [employer], Reference: [id number], 01/31/2018 2:42:38 PM CDT, Pool: PETER JEFFERY RN ([id number]) Interface, Out DP7 Digital Prov Query - 01/31/2018 2:42 PM CDT The following lab order(s) may be associated with the Result Note below: ALT (SGPT) Notes Recorded by Waqas Rodney MD on 10/28/2016 at 4:49 PM ifnorm PSA stable (actually lowest it has been in years). Good news. PSA twice a year. Interface, Out Catalog Spree Query - 01/31/2018 2:42 PM CDT The following lab order(s) may [...] tests.; this will dictate followup. Interface, Out Catalog Spree Query - 01/31/2018 2:42 PM CDT The following lab order(s) may be associated with the Result Note below: BASIC METABOLIC PANEL Notes Recorded by Placido Ott MD on 11/13/2017 at 11:49 AM Phone: electrolytes normal, mild kidney dysfunction suggested, but similar to most past readings dating back 4 years. Placido Ott MD 11/13/2017 11:49 AM documented in this encounter Plan of Treatment Not on filedocumented as of this encounter Visit Diagnoses Not on filedocumented in this encounter Care Teams Bonbon Dipper Relationship Specialty Start Date End Date Placido Ott MD PCP - General Internal Medicine 10/26/17 10/17/21 [address] [place] [address] documented as of this encounter
--- OUTSIDE RECORDS SUMMARY | 2022-02-24 12:21 | XMS_ITS | Encounter Summary ---
:1935 Author Organization [facility] Address [address] [address] Care Team Providers Name Role Phone Shelly Ott MD Primary Care Provider Reason for Visit Reason Comments Refill allopurinol (ZYLOPRIM) 100 M G tablet [Pharmacy Med Name: ALLOPURINOL 100MG TABLETS] Encounter Details Date Type Department Care Team Description 03/03/2018 Refill [facility] Shelly Ott Re fill (allopurinol [facility] anjelica Spence MD (ZYLOPRIM) 100 MG [address] tablet [[place] [address] [address]VD Name: ALLOPURINOL 100MG [phone] [place], [place] TABLETS]) [address] Social History Tobacco Use Types Packs/Day Years [...] as of this encounter Nursing Notes Michaela Cerda RN - 03/03/2018 3:01 PM CDT Medication(s) approved by RN per Refill Protocol/Standing Order Michaela Cerda RN 03/03/2018, 3:01 PM Interface, Out Surescripts Prov Query - 03/03/2018 2:34 PM CDT allopurinol (ZYLOPRIM) 100 MG tablet [Pharmacy Med Name: ALLOPURINOL 100MG TABLETS] Endocrinology: Gout Agents - Allopurinol -> GFR ([place]) was found, but the result could not be read. -> Refill x 9 months, qty: 90, refills: 2 (until due for a(n) HCT check, HGB check, PLT check, RBC check, RDW check and WBC check) Last qualifying visit: 02/26/2018 (with SHELLY OTT) Next scheduled visit: None Last ordered by IVÁN EID: 02/01/2018 (30 days ago) QTY: 30, Refills: 0, Sig: take 1 tablet by mouth every day (unchanged) Cr: 1.23 mg/dL on 02/26/2018 ALT: 27 U/L on 02/26/2018 HGB: 15.1 g/dL on 09/15/2017 GFR ([place]): Taken on 02/26/2018 HCT: 44.7 % on 09/15/2017 Age: 82 PLT: 243 k/cmm on 09/15/2017 RBC: 4.88 m/cmm on 09/15/2017 RDW: 13.5 % on 09/15/2017 WBC: 7.3 k/cmm on 09/15/2017 Powered by [employer], Reference: [id number], 03/03/2018 2:34:31 PM CDT, Pool: PETER JEFFERY RN ([id number]) Interface, Out TheMarkets Prov Query - 03/03/2018 2:34 PM CDT The following lab order(s) may [...] tests.; this will dictate followup. Interface, Out [employer] Prov Query - 03/03/2018 2:34 PM CDT The following lab order(s) may [...] Ott MD 02/26/2018 6:47 PM Interface, Out [employer] Prov Query - 03/03/2018 2:34 PM CDT The following lab order(s) may [...] on filedocumented in this encounter Care Teams Technical Services Manager Relationship Specialty Start Date End Date Shelly Ott MD PCP - General Internal Medicine 10/26/17 10/17/21 [address] [place] [address] documented as of this encounter
--- OUTSIDE RECORDS SUMMARY | 2022-02-24 12:21 | XMS_ITS | Encounter Summary ---
:1935 Author Organization [facility] Address [address] [address] Care Team Providers Name Role Phone Kali Morgan Rose Primary Care Provider Reason for Visit Reason Comments Questions Encounter Details Date Type Department Care Team Description 10/01/2017 Telephone [facility] Waqas Rodney MD Questions [facility] [address] [place] [address] [address] [facility] [place] [address] [phone] Social History Tobacco Use Types Packs/Day Years [...] encounter Nursing Notes Deepika Arellano, RN - 10/01/2017 12:38 PM CDT Placed call to patient and notified him that he does not need a referral for internal medicine per referral department. Patient states that he will call back at a later time when he has his schedule. Patient in agreement of plan and verbalizes understanding. Deepika Arellano RN 10/01/2017, 12:38 PM documented in this encounter Plan of Treatment Not on filedocumented as of this encounter Visit Diagnoses Not on filedocumented in this encounter Care Teams Police District Switchboard Operator Relationship Specialty Start Date End Date Morgan Bass DO PCP - General Family Practice 10/02/16 10/25/17 [address] [place] [address] documented as of this encounter
--- OUTSIDE RECORDS SUMMARY | 2022-02-24 12:21 | XMS_ITS | Encounter Summary ---
:1935 Author Organization [facility] Address [address] [address] Care Team Providers Name Role Phone Placido Ott MD Primary Care Provider Reason for Visit Reason Comments Vitamin B12 Injection Encounter Details Date Type Department Care Team Description 03/22/2018 Nursing Visit [facility] Other vitamin B12 [place] Nursing deficiency anemia [address] [place] wilson (Primary Dx) [place] [address] Social History Tobacco Use Types Packs/Day [...] encounter Progress Notes Silvina Phoenix LPN - 03/22/2018 9:08 AM CDT Zaid Rutledge here for Vitamin B-12 Injection. Ordered per PCP. See orders. patient verbalized understanding of risks, possible side effects, and benefits of the injection and gave permission to administer Vitamin B 12. No precautions or contraindications noted. Tolerated injection well. See immunization/injection report for administration documentation. Silvina Phoenix LPN documented in this encounter Plan of Treatment Not on filedocumented as of this encounter Visit Diagnoses Diagnosis Other vitamin B12 deficiency anemia - Pr imary documented in this encounter Administered Medications Active Administered Medications - up to 3 most recent administrations Medication Order MAR Action Action Date Dose Rate Site cyanocobalamin ([id number]) Given 04/28/2018 3:13 PM 1,000 mcg Left Deltoid injection 1,000 mcg HEART COORDINATOR 1,000 mcg, Intramuscular, OTHER, Starting on 03/01/18 at 0934, Until Discontinued, For 9 doses, . Given 03/29/2018 9:01 AM CDT 1,000 mcg Right Deltoid Given 03/22/2018 9:12 AM CDT 1,000 mcg Left Deltoid documented in this encounter Care Teams Lithographic Plate Maker Apprentice Relationship Specialty Start Date End Date Palcido Ott MD PCP - General Internal Medicine 10/26/17 10/17/21 [address] [place] [address] documented as of this encounter
--- OUTSIDE RECORDS SUMMARY | 2022-02-24 12:21 | XMS_ITS | Encounter Summary ---
:1935 Author Organization [facility] Address [address] [place] [address] Care Team Providers Name Role Phone Shelly Ott MD Primary Care Provider Reason for Visit Reason Comments Refill pravastatin (PRAVACHOL) 40 M G tablet [Pharmacy Med Name: PRAVASTATIN 40MG TABLETS] Encounter Details Date Type Department Care Team Description 01/02/2018 Refill [facility] Shelly Ott, Refill (pravastatin [address] (PRAVACHOL) 40 MG tablet [place], [place] [address] [address] [Pharmacy Med Name: [phone] PRAVASTATIN 40MG [place], [place] TABLETS]) [id number] (Wo rk) Social History Tobacco Use Types [...] of this encounter Nursing Notes Interface, Out Surescripts Prov Query - 01/02/2018 11:01 AM CDT pravastatin (PRAVACHOL) 40 MG tablet [Pharmacy Med Name: PRAVASTATIN 40MG TABLETS] Cardiovascular: Antilipid - HMG-CoA Reductase Inhibitors -> The patient is requesting refills too soon, the current prescription is due to run out on 12/02/2018. -> HDL is abnormal (30 mg/dL lies outside 40.0 mg/dL - 70.0 mg/dL) -> LDL is abnormal (138 mg/dL is greater than 129.0 mg/dL) -> Refill x 12 months, qty: 90, refills: 3 (until due for an office visit) Last qualifying visit: 11/13/2017 (with SHELLY OTT) Next scheduled visit: 02/26/2018 (with SHELLY OTT) Last ordered by SHELLY OTT: 12/07/2017 (26 days ago) QTY: 90, Refills: 3, Sig: take 1 tab bymouth daily at bedtime. (changed but equivalent) HDL: 30 mg/dL on 10/28/2016 LDL: 138 mg/dL on 10/28/2016 Total Cholesterol: 221 mg/dL on 10/28/2016 Triglycerides: 266 mg/dL on 10/28/2016 Powered by [employer], Reference: [id number], 01/02/2018 11:01:24 AM CDT, Pool: SMG REFILL RN ([id number]) Interface, Out MDVIP Query - 01/02/2018 11:01 AM CDT The following lab order(s) may [...] on filedocumented in this encounter Care Teams Tar Distillation Supervisor Relationship Specialty Start Date End Date Shelly Ott MD PCP - General Internal Medicine 10/26/17 10/17/21 [address] [place] [address] documented as of this encounter
--- OUTSIDE RECORDS SUMMARY | 2022-02-24 12:21 | XMS_ITS | Encounter Summary ---
:1935 Author Organization [facility] Address [address], [place] [address] Care Team Providers Name Role Phone Placido Ott MD Primary Care Provider Encounter Details Date Type Department Care Team Description 11/13/2017 Notes/Orders [facility] [place] Placido Ott lergic rhinitis, [place] Matthew Spence MD unspecified Medicine [address] seasonality, [address] unspecified trigger [place], [place] (Primary Dx ) [address] [phone] Social History Tobacco Use Types Packs/Day Years [...] as of this encounter Visit Diagnoses Diagnosis Allergic rhinitis, unspecified seasonali ty, unspecified trigger - Primary documented in this encounter Care Teams Lead Housekeeper Relationship Specialty Start Date End Date Placido Ott MD PCP - General Internal Medicine 10/26/17 10/17/21 [address] [place] [address] documented as of this encounter
--- OUTSIDE RECORDS SUMMARY | 2022-02-24 12:21 | XMS_ITS | Encounter Summary ---
:1935 Author Organization [facility] Address [address], [place] [address] Care Team Providers Name Role Phone No Primary/Referring, Phy Primary Care Provider Unavailable Encounter Details Date Type Department Care Team Description 09/15/2017 Correspondence [facility] Waqas Rodney [facility] Cameron Edson Griffith MD [facility] [address] [place] [address] [place], [place] [phone] Social History Tobacco Use Types Packs/Day Years [...] on filedocumented in this encounter Care Teams Morning Show Host Relationship Specialty Start Date End Date No Primary/Referring, Phy PCP - General 12/11/21 documented as of this encounter
--- OUTSIDE RECORDS SUMMARY | 2022-02-24 12:21 | XMS_ITS | Encounter Summary ---
:1935 Author Organization [facility] Address [address], [place] [address] Care Team Providers Name Role Phone Placido Ott MD Primary Care Provider Reason for Visit Reason Comments Refill pravastatin (PRAVACHOL) 40 M G tablet [Pharmacy Med Name: PRAVASTATIN 40MG TABLETS] Encounter Details Date Type Department Care Team Description 11/28/2017 Refill [facility] Lianne Guzman, Re fill (pravastatin [facility] (PRAVACHOL) 40 MG [address] tablet [[place] [address] [address] Name: PRAVASTATIN 40MG [phone] [place], [place] TABLETS]) [address] Social History Tobacco Use Types Packs/Day Years [...] documented as of this encounter Nursing Notes Darrian Oleary CMA - 12/10/2017 9:17 AM CDT This was sent on 12/10/17. Darrian Oleary CMA 12/10/2017, 9:17 AM Interface, Out Surescripts Prov Query - 11/28/2017 10:49 AM CDT pravastatin (PRAVACHOL) 40 MG tablet [Pharmacy Med Name: PRAVASTATIN 40MG TABLETS] Unassigned -> The most recent order on 11/26/2017. -> Medication cannot be delegated. Last qualifying visit: 04/22/2017 (with LIANNE GUZMAN) Next scheduled visit: 04/22/2018 (with LIANNE GUZMAN) Last ordered by LIANNE GUZMAN: 11/26/2016 (367 days ago) QTY: 90, Refills: 3, Sig: take 1 tab by mouth daily at bedtime. (changed but equivalent) Powered by [employer], Reference: [id number], 11/28/2017 10:49:07 AM CDT, Pool: [facility] ([id number]) documented in this encounter Plan of Treatment Not on filedocumented as of this encounter Visit Diagnoses Not on filedocumented in this encounter Care Teams Spinning Frame Fixer Relationship Specialty Start Date End Date Placido Ott MD PCP - General Internal Medicine 10/26/17 10/17/21 [address] [place] [address] documented as of this encounter
--- OUTSIDE RECORDS SUMMARY | 2022-02-24 12:21 | XMS_ITS | Encounter Summary ---
:1935 Author Organization [facility] Address [address] [address] Care Team Providers Name Role Phone Placido Ott MD Primary Care Provider Encounter Details Date Type Department Care Team Description 10/22/2017 Refill Order [facility] Iván Eid Family Pr anjelica Rose DO [address] [place] [address] [address] [phone] [place], [place] [address] (Wo rk) Social History Tobacco Use Types [...] file documented as of this encounter Progress Alan Murdock - 10/26/2017 6:43 PM CDT Labs ordered per Refill Standing Order/Protocol. Patient has future appointment. Alan Evans 10/26/2017, 6:45 PM documented in this encounter Nursing Notes Interface, Out Surescripts Prov Query - 10/22/2017 10:04 AM CDT ORDER THE FOLLOWING: - BASIC METABOLIC PANEL: Pended to encounter. - GFR (CRCL) ESTIMATED: Pended to encounter. - ALANINE AMINOTRANSFERASE (ALT): Pended to encounter. SCHEDULE THE FOLLOWING: - BASIC METABOLIC PANEL BY: Now (Due as of 10/03/2017 for multiple medications including allopurinol(ZYLOPRIM) 100 MG tablet) - GFR (CRCL) ESTIMATED BY: Now (Due as of 10/03/2017 for allopurinol (ZYLOPRIM) 100 MG tablet) - ALANINE AMINOTRANSFERASE (ALT) BY: 10/23/2017 (Coming due as of 10/23/2017 for allopurinol (ZYLOPRIM) 100 MG tablet) - LAST QUALIFYING VISIT WITH IVÁN EID: 12/29/2016 - NEXT SCHEDULED VISIT: None - NEXT LAB APPOINTMENT: None Powered by [employer], Reference: [id number], 10/22/2017 10:04:03 AM CDT, Pool: PETER JEFFERY RN ([id number]) Interface, Out Surescripts Prov Query - 10/22/2017 10:04 AM CDT The following lab order(s) may be associated with the Result Note below: MR BRAIN W/WO IV CONT Notes Recorded by Michelle Moreira CMA on 10/09/2016 at 9:04 AM I left a message for patient to call back, see telephone encounter for details. Michelle Moreira CMA. 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 I would see neurology on Thursday as planned. Interface, Out SurescriFitcline Prov Query - 10/22/2017 10:04 AM CDT The following lab order(s) may be associated with the Result Note below: ALT (SGPT) Notes Recorded by Waqas Rodney MD on 10/28/2016 at 4:49 PM ifnorm PSA stable (actually lowest it has been in years). Good news. PSA twice a year. Interface, Out Surescripts Prov Query - 10/22/2017 10:04 AM CDT The following lab order(s) may [...] with lab tests.; this will dictate followup. documented in this encounter Plan of Treatment Not on filedocumented as of this encounter Visit Diagnoses Diagnosis Encounter for long-term (current) use of medications - Primary Encounter for long-term (current) use of other medications documented in this encounter Care Teams Bootmaker Relationship Specialty Start Date End Date Placido Ott MD PCP - General Internal Medicine 10/26/17 10/17/21 [address] [place] [address] documented as of this encounter
--- OUTSIDE RECORDS SUMMARY | 2022-02-24 12:21 | XMS_ITS | Encounter Summary ---
:1935 Author Organization [facility] Address [address] [address] Care Team Providers Name Role Phone Placido Ott MD Primary Care Provider Reason for Visit Reason Comments Vitamin B12 Injection Encounter Details Date Type Department Care Team Description 03/12/2018 Nursing Visit [facility] Other vitamin B12 [place] Nursing deficiency anemia [address] [place] (Primary Dx) [place] [address] Social History Tobacco Use Types Packs/Day [...] encounter Progress Notes Michaela Mcdowell LPN - 03/12/2018 9:20 AM CDT Zaid Rutledge here for Vitamin B-12 Injection. Ordered per indira. See orders. patient verbalized understanding of risks, [...] Action Action Date Dose Rate Site cyanocobalamin ([id number]) Given 04/28/2018 3:13 PM 1,000 mcg Left Deltoid injection 1,000 mcg NETWORKS COMPUTER CONSULTANT 1,000 mcg, Intramuscular, OTHER, Starting on 03/01/18 at 0934, Until Discontinued, For 9 doses, . Given 03/29/2018 9:01 AM CDT 1,000 mcg Right Deltoid Given 03/22/2018 9:12 AM CDT 1,000 mcg Left Deltoid documented in this encounter Care Teams Passport Application Examiner Relationship Specialty Start Date End Date Placido Ott MD PCP - General Internal Medicine 10/26/17 10/17/21 [address] [place] [address] documented as of this encounter
--- OUTSIDE RECORDS SUMMARY | 2022-02-24 12:21 | XMS_ITS | Encounter Summary ---
:1935 Author Organization [facility] Address [address] [place] [address] Care Team Providers Name Role Phone Morgan Bass DO Primary Care Provider Encounter Details Date Type Department Care Team Description 09/15/2017 Lab Visit [facility] Hematu rich, unspecified [facility] t e Laboratory [address] [place] [address] Social History Tobacco Use Types Packs/Day Years [...] encounter Progress Notes Deepika Arellano RN - 09/15/2017 1:07 PM CDT P:1. Obtain records' 2. Labs-UA, CBC, PSA (PSA may be elevated from infection) 3. Consider daily antibiotic when travels to reduce another testis infection 4. See Primary Care physician. 5. Call with lab tests.; this will dictate followup. documented in this encounter Plan of Treatment Not on filedocumented as of this encounter Procedures Procedure Name Priority Date/Time Associated Diagnosis Comme nts COMPLETE BLOOD Routine 09/15/2017 11:57 AM Hematuria, Result s for this COUNT-NO DIFF CDT unspecified type procedure are in the results section. PROSTATIC SPECIFIC Routine 09/15/2017 11:57 AM Hematuria, Re sults for this ANTIGEN (DIAGNOSTIC CDT unspecified type proc edure are in F/U) the results section. documented in this encounter Results (ABNORMAL) Prostatic Specific Antigen (F/U) (09/15/2017 11:57 AM CDT) [facility] gist Method Time Signature Prostatic Spec 6.6 (H) 0.0 - 4.0 [facility] ng/ml [facility] Comment: The Carreno PSA Chemiluminescent immunoas say is used. Results obtained with different test methods or kits can not be used interchangeably. Specimen Anatomical Collection Method Collection Time Receive d Time (Source) Location / / Volume Laterality 09/15/2017 11:57 09/15/2017 AM CDT 12:03 PM CDT Narrative [facility] - 09/15/2017 1:00 PM C DT Performed at [facility], [address] [place] [address] Waqas Rodney MD LAB_1 Performing Organization Address City/State/ZIP Code Phon e Number [facility] [phone] Complete Blood Count-No Diff (09/15/2017 11:57 AM CDT) athologist Signature WBC 7.3 4.0 - 11.0 [facility] k/ul RBC 4.88 4.5 - 5.9 [facility] M/ul Hemoglobin 15.1 13.5 - 17.5 [facility] g/dl HCT 44.7 41.0 - 53.0 [facility] % MCV 91.6 80 - 100 fl [facility] MCH 30.9 26 - 34 pg [facility] MCHC 33.8 32 - 36 [facility] g/dl RDW 13.5 11.5 - 14.5 [facility] % Platelets 243 150 - 450 [facility] k/ul MPV 9.7 6.5 - 11.0 [facility] fl Specimen Anatomical Collection Method Collection Time Receive d Time (Source) Location / / Volume Laterality 09/15/2017 11:57 09/15/2017 AM CDT 12:03 PM CDT Narrative [facility] - 09/15/2017 12:07 PM CDT Performed at [facility], [address] [place], [place] [id number] Waqas Rodney MD LAB_1 Performing Organization Address City/State/ZIP Code Phon e Number [facility] [phone] documented in this encounter Visit Diagnoses Diagnosis Hematuria, unspecified type documented in this encounter Care Teams Client Analyst Relationship Specialty Start Date End Date Morgan Bass DO PCP - General Family Practice 10/02/16 10/25/17 [address] [place] [address] documented as of this encounter
--- OUTSIDE RECORDS SUMMARY | 2022-02-24 12:21 | XMS_ITS | Encounter Summary ---
:1935 Author Organization [facility] Address [address], [place] [address] Care Team Providers Name Role Phone Morgan Bass Primary Care Provider [phone] Reason for Visit Reason Comments Revisit Encounter Details Date Type Department Care Team Description 09/15/2017 Office Visit [facility] Waqas Rodney Harveyes Griffith MD unspecified type [facility] [address] (Primary Dx) [address] [place] [address] [place], [place] [phone] [id number] Social History Tobacco Use Types Packs/Day Years [...] Reading Time Taken Comments Blood Pressure 150/82 09/15/2017 11:02 AM CDT Pulse 71 09/15/2017 11:02 AM CDT Temperature - - Respiratory Rate - - Oxygen Saturation - - Inhaled Oxygen Concentration - - Weight - - Height - - Body Mass Index - - documented in this encounter Patient Instructions Patient InstructionsWaqas Rodney MD - 09/15/2017 11:50 AM CDT A: History of urine retention on clean SIC Right orchitis resolving. Off antibiotics. Prostate cancer on Active Surveillance. P:1. Obtain records' 2. Labs-UA, CBC, PSA (PSA may be elevated from infection) 3. Consider daily antibiotic when travels to reduce another testis infection 4. See Primary Care physician. 5. Call with lab tests.; this will dictate followup. documented in this encounter Progress Notes Tania Calloway RN - 09/16/2017 2:28 PM CDT See telephone encounter dated 09/16/17. Tania Calloway RN 09/16/2017, 2:28 PM Waqas Rodney MD - 09/16/2017 1:05 PM CDT plesae call and inform no UTI Deepika Arellano RN - 09/15/2017 1:06 PM CDT Test results were reviewed with patient at the time of his appt today. Deepika Arellano RN 09/15/2017, 1:06 PM Phone call. PSA and WBC Normal Culture pending. Explained to tj Waqas Rodney MD - 09/15/2017 11:50 AM CDT Date of Service: 09/15/2017 S: right orchitis while traveling Better after 2 weeks levaquin 750 mg. He is on CIC. . There is no fever, significant weight loss or rash. No new urologic medications have been prescribed. No change in sexual function. No rashes of the ext genitalia. No intervention by other caregiver for problem. No complaints of urinary leakage, hematuria, UTI's. O: Vitals: 09/15/17 1102 BP: (!) 150/82 Pulse: 71 Alert and oriented and good spirits. No rashes on the face or neck. No gynecomastia, no flank masses or tenderness. Abdomen and flank soft, no rebound or masses. No inguinal masses or hernia. Testis benign, descended. Some firmness and enlargment, nontender, of right Urethral meatus normal, no peyronies plaquesm, skin lesions. Anal tone normal, no rectal masses, prostate benign and symmetric. Tests: Not done. 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 Off antibiotics. Prostate cancer on Active Surveillance. P:1. Obtain records' 2. Labs-UA, CBC, PSA (PSA may be elevated from infection) 3. Consider daily antibiotic when travels to reduce another testis infection 4. See Primary Care physician. 5. Call with lab tests.; this will dictate followup. (Please note this document was prepared with voice recognition software likely resulting in unintentional word substitutions. Please contact me if clarification is needed.) documented in this encounter Plan of Treatment Not on filedocumented as of this encounter Procedures Procedure Name Priority Date/Time Associated Diagnosis Comme nts URINE CULTURE Routine 09/15/2017 11:58 AM Hematuria, unspecifi ed Results for this CDT type procedure are i n the results section. UA WITH MICRO Routine 09/15/2017 11:58 AM Hematuria, unspecifi ed Results for this CDT type procedure are i n the results section. documented in this encounter Results URINE CULTURE (HEMATURIA) (09/15/2017 11:58 AM CDT) Component Value Ref Test Analysis Performed At [facility] activ8 Intelligence [place] Method Time Signature Specimen Urine [facility] Description Midstream [facility] Special Unspecified [facility] Requests LABORATORIES Culture No Growth [facility] After 2 Days LABORATORIES Report Status 09/17/2017 [facility] Final [facility] Specimen Anatomical Collection Method Collection Time Receive d Time (Source) Location / / Volume Laterality Urine:clean 09/15/2017 11:58 09/15/2017 catch AM CDT 11:59 AM CDT Waqas Rodney MD LAB_1 Performing Organization Address [facility]/ZIP Code Phon e Number [facility] [phone] (ABNORMAL) UA MICRO (HEMATURIA) (09/15/2017 11:58 AM CDT) [facility] activ8 Intelligence Method Time Signature Urine Color Yellow [facility] Urine Clarity Clear [facility] Sp Gr <1.005 (L) 1.005 - [facility] 1.030 [facility] Leuk Negative NEG [facility] Nitr Negative NEG [facility] pH 5.5 4.5 - 8.0 [facility] Prot Negative NEG mg/dl [facility] Gluc Negative NEG [facility] Ket Negative NEG [facility] Urob 0.2 0.2 - 1.0 [facility] EU/dl [facility] Bili Negative NEG [facility] Blood Neg/Tr NEGTR [facility] RBC'S 0-3 0 - 3 [facility] /hpf [facility] WBC'S 0-2 0 - 5 [facility] /hpf [facility] Epith, Few /hpf [facility] Squamous [facility] Bact 0 [facility] Casts 0 /lpf [facility] Specimen Anatomical Collection Method Collection Time Receive d Time (Source) Location / / Volume Laterality 09/15/2017 11:58 09/15/2017 AM CDT 11:59 AM CDT Narrative [facility] - 09/15/2017 12:12 PM CDT Performed at [facility], [address] [place] [address] Waqas Rodney MD LAB_1 Performing Organization Address City/[facility]/ZIP Code Phon e Number [facility] [phone] (ABNORMAL) Prostatic Specific Antigen (F/U) (09/15/2017 11:57 AM CDT) Patholo gist Method Time Signature Prostatic Spec 6.6 (H) 0.0 - 4.0 [facility] Ag ng/ml LAB[facility]ATORIES Comment: The Carreon PSA Chemiluminescent immunoas say is used. Results obtained with different test methods or kits can not be used interchangeably. Specimen Anatomical Collection Method Collection Time Receive d Time (Source) Location / / Volume Laterality 09/15/2017 11:57 09/15/2017 AM CDT 12:03 PM CDT Narrative [facility] - 09/15/2017 1:00 PM C DT Performed at [facility], [address] [place] [address] Waqas Rodney MD LAB_1 Performing Organization Address [facility] Phon e Number [facility] [phone] Complete Blood Count-No Diff (09/15/2017 11:57 AM CDT) P athologist Signature WBC 7.3 4.0 - 11.0 [...] - 09/15/2017 12:07 PM CDT Performed at [facility], [address] [place] [address] Waqas Rodney MD LAB_1 Performing Organization Address City/[facility] Phon e Number [facility] [phone] documented in this encounter Visit Diagnoses Diagnosis Hematuria, unspecified type - Primary Hematuria, unspecified type documented in this encounter Care Teams Retail Management Trainee Relationship Specialty Start Date End Date Mogran Bass DO PCP - General Family Practice 10/02/16 10/25/17 [address] [place] [address] documented as of this encounter
--- OUTSIDE RECORDS SUMMARY | 2022-02-24 12:21 | XMS_ITS | Encounter Summary ---
:1935 Author Organization [facility] Address [address] [place] [address] Care Team Providers Name Role Phone No Primary/Referring, Phy Primary Care Provider Unavailable Reason for Visit Reason Comments Refill Encounter Details Date Type Department Care Team Description 12/03/2017 Nurse Triage Careline Unassigned, Provider Refill [address] [place], [place] [address] [place] [address] Social History Tobacco Use Types Packs/Day Years [...] documented as of this encounter Nursing Notes Rose Kyle RN - 12/04/2017 11:51 AM CDT Routed to Dr. Ott Care Team. Rose Kyle RN 12/04/2017, 11:51 AM Shruthi Alcantar - 12/04/2017 8:39 AM CDT Called and spoke with pt. He is confused why Dr. Feldman didn't want to fill the script. I tried to explain that these scripts are filled by the primary provider. Pt would like to know if he needs to continue with this medication and should he have a lipid check. Shruthi Alcantar CMA 12/04/2017 8:45 AM Lenka Quinn RN - 12/03/2017 7:29 PM CDT Patient/career developer request: Input needed Medication Specific Request: See situation note below Clinician route to Flag for care team/Care team pool as patient is expecting a call back. Verified patient identity using three identifiers: Yes Situation/Background (brief explanation of current symptoms/situation): Pt requesting refill of Pravastatin. Chart reviewed, refilled request started 11/28/17 and still pt has not received refill or anynotice from clinic. Reviewed with patient pertinent medical history(as it related to the call): Yes Reviewed with patient pertinent medications (as they relate to call): Yes Reason for Disposition ??? Caller requesting a refill, no triage required, and triager able to refill per unit policy Protocols used: MEDICATION QUESTION [id number] Plan: Pravastatin 30 day/no refills ordered per standing order and sent to [facility] Advised patient/caller to call back CareLine if symptoms get worse or if you have any further questions or concerns. The CareLine is available 05/01. Lenka Quinn RN 12/03/2017, 7:58 PM Mine Carroll - 12/03/2017 7:17 PM CDT Verified patient identity using three identifiers: Yes Caller's relationship to patient: Self At which care system or clinic is the patient normally seen? [facility] Medication Questions/New Med Request/ Side Effects What medication are you calling about (name and/or type)? pravastatin (PRAVACHOL) 40 MG tablet What is your question/concern? Did not have this refilled, he is completely out Are you experiencing any symptoms? No Plan: The current callback time to speak with a nurse is 60 min. If your symptoms change or worsen, or if you have not received a call back in the stated timeframe, please call us back documented in this encounter Plan of Treatment Not on filedocumented as of this encounter Visit Diagnoses Not on filedocumented in this encounter Care Teams Epic Cadence Specialists Relationship Specialty Start Date End Date No Primary/Referring, Phy PCP - General 12/11/21 documented as of this encounter
--- OUTSIDE RECORDS SUMMARY | 2022-02-24 12:21 | XMS_ITS | Encounter Summary ---
:1935 Author Organization [facility] Address [address] [address] Care Team Providers Name Role Phone Kali Morgan Rose Primary Care Provider [phone] Reason for Visit Reason Comments QUESTIONS, GENERAL Questions regarding getting records to Dr. Rodney Encounter Details Date Type Department Care Team Description [facility]/03[facility] GENERAL [place] J, MD (Questions regarding [facility] [address] getting records to Dr. Mery Cox ) [place] [address] [place], [place] [phone] [address] Social History Tobacco Use Types Packs/Day Years [...] encounter Nursing Notes Deepika Arellano, RN - 09/03/2017 10:17 AM CDT Placed call to patient and notified that he may make a copy of his records and bring them at the time of his appt. Patient in agreement of plan and verbalizes understanding. Deepika Arellano RN 09/03/2017, 10:24 AM Rosemarie Vasquez - 09/03/2017 9:54 AM CDT Miscellaneous Questions & FYIs [Administrator Health Care Facility/Appt Center: If this call is after 3 p.m., communicate to patient: If we are not able to get back to you by the end of the day and your symptoms worsen please contact the Careline at [phone] OR at .] What condition are you calling about? Hospital visit in [place] Is this a question/concern or an FYI? Question/Concern What is your question or concern? Patient called from [place] to make appointment with Dr. Rodney next week. Patient wondering if torresan get an email address as Dr. Rodney would like to records from his visit sent so he can take a look at them. Patient was given central fax number to have these records faxed, however, stated he had no way to do have this done. Please call to discuss. Have you recently been seen for this? Yes: In [place] Is it okay to leave a detailed message on your voicemail? Yes Rosemarie Vasquez Please route to: None (Care Team Pool if unable to handle) documented in this encounter Plan of Treatment Not on filedocumented as of this encounter Visit Diagnoses Not on filedocumented in this encounter Care Teams Poultry Farmer Relationship Specialty Start Date End Date Morgan Bass DO PCP - General Family Practice 10/02/16 10/25/17 [address] [place] [address] documented as of this encounter
--- OUTSIDE RECORDS SUMMARY | 2022-02-24 12:21 | XMS_ITS | Encounter Summary ---
:1935 Author Organization [facility] Address [address], [place] [address] Care Team Providers Name Role Phone Morgan Bass DO Primary Care Provider Reason for Visit Reason Comments QUESTIONS, GENERAL Encounter Details Date Type Department Care Team Description 08/31/2017 Telephone [facility] [address] [place] [address] [place], [place] [phone] [address] Social History Tobacco Use Types Packs/Day Years [...] documented as of this encounter Nursing Notes Waqsa Rodney MD - 08/31/2017 2:23 PM CDT Phone call. Doing ok, no fevers. stillhaving orchalgia with heat, ibuprofen and antibiotics. rec Get records from hospital in [place] and fax to us. See me upon return. May go in hot tub, etc as no drainage. If fever, etc to ER IET Deepika Arellano RN - 08/31/2017 10:22 AM CDT Returned call to patient and he states that he would like to speak with Dr. Rodney. He states that he has a few questions. Patient would not provide further information. Patient is aware that Dr. Rodney is in the OR today. Patient verbalizes understanding. Please contact patient. Deepika Arellano RN 08/31/2017, 10:23 AM IET Waqas Rodney MD - 08/31/2017 10:10 AM CDT Please find how pt doing. Elayne De La Cruz - 08/31/2017 10:08 AM CDT Miscellaneous Questions & FYIs [Gi Asst/Appt Center: If this call is after 3 p.m., communicate to patient: If we are not able to get back to you by the end of the day and your symptoms worsen please contact the Careline at [phone] OR at .] What condition are you calling about? Follow up from Hospital Is this a question/concern or an FYI? Question/Concern What is your question or concern? Patient wants to report to Dr. Rodney he is doing and has some follow up questions. Have you recently been seen for this? No Is it okay to leave a detailed message on your voicemail? Yes Elayne De La Cruz Please route to: None (Care Team Pool if unable to handle) documented in this encounter Plan of Treatment Not on filedocumented as of this encounter Visit Diagnoses Not on filedocumented in this encounter Care Teams Marketing Ambassador Relationship Specialty Start Date End Date Morgan Bass DO PCP - General Family Practice 10/02/16 10/25/17 [address] [place] [address] documented as of this encounter
--- OUTSIDE RECORDS SUMMARY | 2022-02-24 12:21 | XMS_ITS | Encounter Summary ---
:1935 Author Organization [facility] Address [address], [place] [address] Care Team Providers Name Role Phone Placido Ott MD Primary Care Provider Reason for Visit Reason Comments Medication Questions pravastatin (PRAVACHOL) 40 M G tablet Forms hadicap sticker Encounter Details Date Type Department Care Team Description 03/29/2018 Telephone [facility] Placido Ott Ma dication Questions Beatriz Spence MD (pravastatin Medicine [address] (PRAVACHOL) 40 MG [address] tablet); Forms BERTHA [place] [phone] BERTHA HENDERSON (hadicap sticker) [phone] Social History Tobacco Use Types Packs/Day Years [...] documented as of this encounter Nursing Notes Shari Upton RMA - 03/29/2018 5:08 PM CDT Spoke with with pt to tell him letter was sent. RENZO Poole 03/29/2018, 5:08 PM Tricia Ortiz - 03/29/2018 3:27 PM CDT Patient returned call. Please contact at number listed above. Best time to reach patient: ANy Ok to leave a detailed message:Yes Patient states he would like this mailed. Tricia Ortiz............... 03/29/2018 3:27 PM Shari Upton RMA - 03/29/2018 12:41 PM CDT Left message for pt to call back. I'm wondering if he wants his form for Disability Parking to be sent to him in the mail or if he wants to pick it up at the clinic. RENZO Poole 03/29/2018, 12:41 PM Placido Ott MD - 03/29/2018 12:40 PM CDT DMV form completed. Statin medications (pravastatin) can be associated with some degree of memory dysfunction when firststarting the medication, although studies suggest that intermediate accountant they help to protect the memory, bydecreasing the stroke risk. 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 So I would recommend that he stay on the statin medication to help decrease the risk of stroke, and hopefully help protect the brain longterm. Placido Ott MD 03/29/2018 12:43 PM Vandana Vargas RN - 03/29/2018 9:59 AM CDT Situation: pt would like PCP's input on his use of pravastatin Background: 02/26/18 OV with PCP. Pt states at most recent OV he completed a mini cognitive assessment and he was unable to remember 1 of the 4 things he was to remember. This concerned him quite a bit.Since, he has been reading about pravastatin and talking to others about how use of this medication can affect people's memory. He is concerned that it is causing memory loss and questions if it is really necessary that he take it? Per neurology notes at time of pravastatin start: ?? 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 Lack of exercise is also a risk factor for stroke (Lifetime 2x/week). ?? Need to get you on a statin / cholesterol medication, and work on diet and exercise. Assessment (RN)/Appraisal (AFTAB/HEALTH SAFETY INSTRUCTOR): Recommendation/Request: Explained to patient what purpose the pravastatin serves and his increase risk of stroke or other major health event without use of the pravastatin. Will forward to PCP for review and recommendation per patient's request. Vandana Ignacio RN 03/29/2018, 10:15 AM Lida Gonzalez CMA - 03/29/2018 9:40 AM CDT DMV form in providers red folder to complete Lida Corcoran CMA 03/29/2018, 9:40 AM Lida Gonzalez CMA - 03/29/2018 9:22 AM CDT Routed to electrical logging engineer for the pravastatin question. Assist will fill out handi cap form for provider to review and complete. Lida Corcoran CMA 03/29/2018, 9:23 AM Janis Uriarte - 03/29/2018 9:12 AM CDT Forms & Letters - All Types What form/letter are you requesting? hadicap sticker renewal When do you need this form back? anytime How would you like to receive your form/letter? power press supervisor at the [facility] Is it ok to leave a detailed message on your voicemail? Yes [Brush Head Maker/Appt Center: Communicate to patient: Forms may take up to 7-10 business days to complete. We will complete it as soon as possible and return it to the location you requested.] Is there anything else I can help you with today? Janis Oneil Please route to: Care Team Pool Janis Uriarte - 03/29/2018 9:10 AM CDT Medications - Med Question / Symptom [Brush Head Maker/Appt Center: If this call is after 3 p.m., communicate to patient: If we are not able to get back to you by the end of the day and your symptoms worsen, please contact the Careline [phone] OR at .] Name and Dose of current medication: pravastatin (PRAVACHOL) 40 MG tablet How often do you take it? Take 1 Tab by mouth daily at bedtime Who prescribed it? Placido Ott MD Is your question related to medication symptoms? Yes Describe your symptoms (if pain, include location): Patient states that he would like to discuss stopping his medication pravastatin (PRAVACHOL) 40 MG tablet. He states taht he read that taking it can be related to memory loss and would like to discuss with the Doctor. When did they start? What have you tried at home (please specify medication name, if any)? If a prescription is needed, would you like it filled at a [facility] pharmacy? No: [Brush Head Maker/Appt Center: Please add the selected pharmacy to Meds & Orders] Is it okay to leave a detailed message on your voicemail? Yes Is there anything else I can help you with today? Janis Oneil Please route and transfer to: EULOGIO Keenan documented in this encounter Plan of Treatment Not on filedocumented as of this encounter Visit Diagnoses Not on filedocumented in this encounter Care Teams Production Machine Tender Relationship Specialty Start Date End Date Placido Ott MD PCP - General Internal Medicine 10/26/17 10/17/21 [address] [place] [address] documented as of this encounter
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
--- OUTSIDE RECORDS SUMMARY | 2022-02-24 12:21 | XMS_ITS | Encounter Summary ---
:1935 Author Organization [facility] Address [address] [address] Care Team Providers Name Role Phone Placido Ott MD Primary Care Provider Encounter Details Date Type Department Care Team Description 01/02/2018 Refill Order [facility] Morgan Bass Family Pr anjelica Rose DO [address] [place] [address] [address] [phone] [place], [place] [id number] (Wo rk) Social History Tobacco Use Types [...] file documented as of this encounter Progress Shruthi Starks - 01/05/2018 1:01 PM CDT Note made on PVP for upcoming appt. Shruthi Alcantar CMA 01/05/2018 1:01 PM documented in this encounter Nursing Notes Interface, Out Meal Sharing Prov Query - 01/02/2018 10:59 AM CDT ORDER THE FOLLOWING: - ALANINE AMINOTRANSFERASE (ALT): Previously ordered on 12/07/2017 and will on 06/08/2018 SCHEDULE THE FOLLOWING: - ALANINE AMINOTRANSFERASE (ALT) BY: Now (Due as of 10/23/2017 for allopurinol (ZYLOPRIM) 100 MG tablet) - LAST QUALIFYING VISIT IN INTERNAL MEDICINE: 11/13/2017 - NEXT SCHEDULED VISIT IN INTERNAL MEDICINE: 02/26/2018 - NEXT LAB APPOINTMENT: None Powered by [employer], Reference: [id number], 01/02/2018 10:59:15 AM CDT, Pool: PETER REFYUDITH KRISHNAN ([id number]) documented in this encounter Plan of Treatment Not on filedocumented as of this encounter Visit Diagnoses Diagnosis Encounter for long-term (current) use of medications - Primary Encounter for long-term (current) use of other medications documented in this encounter Care Teams Public Information Director Relationship Specialty Start Date End Date Placido Ott MD PCP - General Internal Medicine 10/26/17 10/17/21 [address] [place] [address] documented as of this encounter
--- OUTSIDE RECORDS SUMMARY | 2022-02-24 12:21 | XMS_ITS | Encounter Summary ---
:1935 Author Organization [facility] Address [address], [place] [address] Care Team Providers Name Role Phone Placido Ott MD Primary Care Provider Reason for Visit Reason Comments Refill omeprazole (PRILOSEC) 20 MG capsule [Pharmacy Med Name: OMEPRAZOLE 20MG CAPSULES] Encounter Details Date Type Department Care Team Description 01/02/2018 Refill [facility] Iván Eid Ref ill (omeprazole [facility] [place] (PRILOSEC) 20 MG [address] capsule [[place] [address] [address] Name: OMEPRAZOLE 20MG [phone] [place], [place] [address]ES]) [address] (Wo rk) Social History Tobacco Use Types [...] encounter Nursing Notes Adelaide Rehman RN - 01/02/2018 7:36 PM CDT Ordered per Refill Standing Order/Protocol. Adelaide Rehman RN 01/02/2018, 7:36 PM Interface, Out Surescripts Prov Query - 01/02/2018 10:59 AM CDT omeprazole (PRILOSEC) 20 MG capsule [Pharmacy Med Name: OMEPRAZOLE 20MG CAPSULES] Gastroenterology: Antiulcer - Proton Pump Inhibitors -> Refill x 12 months, qty: 180, refills: 3 (until due for an office visit) Last qualifying visit: 11/13/2017 (in [facility]) Next scheduled visit: 02/26/2018 (in [facility]) Last ordered by IVÁN EID: 11/02/2016 (426 days ago) QTY: 180, Refills: 3, Sig: take one capsule by mouth twice daily one hour before a meal (changed but equivalent) Age: 82 Powered by [employer], Reference: [id number], 01/02/2018 10:59:14 AM CDT, Pool: SMG REFILL RN ([id number]) documented in this encounter Plan of Treatment Not on filedocumented as of this encounter Visit Diagnoses Not on filedocumented in this encounter Care Teams Manager Sterile Processing Relationship Specialty Start Date End Date Placido Ott MD PCP - General Internal Medicine 10/26/17 10/17/21 [address] [place] [address] documented as of this encounter
--- OUTSIDE RECORDS SUMMARY | 2022-02-24 12:21 | XMS_ITS | Encounter Summary ---
:1935 Author Organization [facility] Address [address], [place] [address] Care Team Providers Name Role Phone Iván Eid DO Primary Care Provider Reason for Visit Reason Comments Refill allopurinol (ZYLOPRIM) 100 M G tablet [Pharmacy Med Name: ALLOPURINOL 100MG TABLETS] Encounter Details Date Type Department Care Team Description 10/22/2017 Refill [facility] Iván Eid Ref ill (allopurinol [facility] [place] (ZYLOPRIM) 100 MG [address] tablet [[place] [address] [address] Name: ALLOPURINOL [phone] [place], [place] 100MG TABL ETS]) [address] (Wo rk) Social History Tobacco Use Types [...] encounter Nursing Notes Adelaide Rehman RN - 10/23/2017 11:53 AM CDT Ordered per Refill Standing Order/Protocol. Adelaide Rehman RN 10/23/2017, 11:53 AM Interface, Out Surescripts Prov Query - 10/22/2017 10:04 AM CDT allopurinol (ZYLOPRIM) 100 MG tablet [Pharmacy Med Name: ALLOPURINOL 100MG TABLETS] Endocrinology: Gout Agents - Allopurinol -> GFR ([place]) was found, but the result could not be read. -> Refill x 3 months (courtesy refill, overdue for a(n) Cr check and GFR ([place]) check) Last qualifying visit: 12/29/2016 (with IVÁN EID) Next scheduled visit: None Last ordered by IVÁN EID: 01/30/2017 (265 days ago) QTY: 90, Refills: 2, Sig: take 1 tablet by mouth every day (unchanged) Cr: 1.08 mg/dL on 10/08/2016 ALT: 31 U/L on 10/28/2016 HGB: 15.1 g/dL on 09/15/2017 GFR ([place]): Taken on 10/08/2016 HCT: 44.7 % on 09/15/2017 Age: 82 PLT: 243 k/cmm on 09/15/2017 RBC: 4.88 m/cmm on 09/15/2017 RDW: 13.5 % on 09/15/2017 WBC: 7.3 k/cmm on 09/15/2017 Powered by [employer], Reference: [id number], 10/22/2017 10:04:03 AM CDT, Pool: PETER JOSE D KRISHNAN ([id number]) Interface, Out [employer] Query - 10/22/2017 10:04 AM CDT The [...] neurology on Thursday as planned. Interface, Out [employer] Query - 10/22/2017 10:04 AM CDT The following lab order(s) may be associated with the Result Note below: ALT (SGPT) Notes Recorded by Waqas Rodney MD on 10/28/2016 at 4:49 PM ifnorm PSA stable (actually lowest it has been in years). Good news. PSA twice a year. Interface, Out [employer] Prov Query - 10/22/2017 10:04 AM CDT [...] on filedocumented in this encounter Care Teams Public Opinion Survey Taker Relationship Specialty Start Date End Date Iván Eid DO PCP - General Family Practice 10/02/16 10/25/17 [address] [place] [address] documented as of this encounter
--- OUTSIDE RECORDS SUMMARY | 2022-02-24 12:21 | XMS_ITS | Encounter Summary ---
:1935 Author Organization [facility] Address [address], [place] [address] Care Team Providers Name Role Phone Placido Ott MD Primary Care Provider Reason for Visit Reason Comments Medication Request Encounter Details Date Type Department Care Team Description 12/04/2017 Telephone [facility] Placido Ott Ca dication Request Beatriz Spence MD Medicine [address] [place] [place] [address] [facility] [place] [phone] Social History Tobacco Use Types Packs/Day Years [...] documented as of this encounter Nursing Notes Tricia Ortiz - 12/10/2017 8:52 AM CDT The patient has been notified of this information and all questions answered. Shweta Louis - 12/10/2017 8:18 AM CDT Left message for patient to call back. Please inform patient of below message. Shweta Louis CMA 12/10/2017 8:18 AM Lianne Feldman MD - 12/09/2017 11:31 PM CDT Yes, he needs to stay on the pravastatin and follow up with his primary doctor, Placido Ott MD, as Dr. Ott already recommended. Dr. Ott took this over and refilled the pravastatin prescription for him, which is how the teamwork operates here in the clinic. I filled the pravastatin at the time as a courtesy to the patient to minimize clinic visits etc.. The cholesterol medications are managed by the primary care doctors, so if a neurologist makes a change, it gets okayed by the primary doctor and then the primary doctor takes over. I hope that clears things up. Lianne Feldman MD, Neurology, 12/09/2017 at 11:36 PM Cristina Souza RN - 12/07/2017 3:[address] Feldman, I assume there is no change in the plan and you would like him to continue pravastatin? Cristina Souza RN 12/07/2017, 3:18 PM Mere Cordova - 12/07/2017 8:59 AM CDT Patient was informed, would like Dr. Feldman's opion on if Zaid should stay on pravastatin. Mere Cordova [facility] 12/07/2017 9:00 AM Placido Ott MD - 12/07/2017 8:38 AM CDT Patient should stay on the pravastatin. When he comes for his visit with me in February, he can come fasting (or come in a few days early for blood test), and we will recheck the lipid profile). Placido Ott MD 12/07/2017 8:39 AM Rose Kyle RN - 12/04/2017 11:49 AM CDT FYI - Was sent to Dr. Feldman in Neurology. For patients PCP. Called and spoke with pt. He is confused why Dr. Feldman didn't want to fill the script. I tried to explain that these scripts are filled by the primary provider. ?? Pt would like to know if he needs to continue with this medication and should he have a lipid check. ?? Shruthi Alcantar [facility] 12/04/2017 8:45 AM documented in this encounter Plan of Treatment Not on filedocumented as of this encounter Visit Diagnoses Diagnosis Hyperlipidemia, unspecified hyperlipidem ia type (HRC) - Primary documented in this encounter Care Teams Resource Manager Forester Relationship Specialty Start Date End Date Placido Ott MD PCP - General Internal Medicine 10/26/17 10/17/21 [address] [place] [address] documented as of this encounter
--- OUTSIDE RECORDS SUMMARY | 2022-02-24 12:22 | XMS_ITS | Encounter Summary ---
:1935 Author Organization [employer] Address [address], [place] [address] Care Team Providers Name Role Phone Morgan Bass DO Primary Care Provider [phone] Reason for Visit Procedure/Equipment (Routine) - Closed Specialty Diagnoses / Procedures Referred By Contact Refer red To Contact Diagnoses Testicular pain, right Morgan Bass DO Procedures US Testicle W Doppler [address] [place], [place] [address] Referral ID Status Reason Start Date Expiration Date Visits Requ ested Visits Authorized [id number] Closed 12/01/2016 03/02/2018 1 1 Encounter Details Date Type Department Care Team Description 12/01/2016 Imaging [facility] Morgan Bassu lar pain, right Ultrasound DO [place] [address] [place] [address] [facility] [phone] [place] [address] (Wo rk) Social History Tobacco Use Types [...] documented as of this encounter Progress Notes Rosa Chow CMA - 12/01/2016 4:44 PM CDT Left message for patient to call back. See telephone encounter. Rosa Chow CMA 12/01/20164:44 PM Morgan Bass DO - 12/01/2016 4:11 PM CDT Patient has bilateral fluid in his scrotum as I discussed with him in the office. He also has what appears to be an inflamed epididymis. I did write for antibiotics for questionable urinary tract infection. I would recommend him following up with urology tomorrow. They may change his antibiotics to a d ifferent antibiotic tomorrow. documented in this encounter Plan of Treatment Not on filedocumented as of this encounter Procedures Procedure Name Priority Date/Time Associated Diagnosis Comme nts US TESTICLE W Routine 12/01/2016 3:38 PM Testicular pain, Resu lts for this DOPPLER CDT right procedure are i n the results section. documented in this encounter Results US Testicle W Doppler (12/01/2016 3:38 PM CDT) Anatomical Region Laterality Modality Testes Ultrasound Specimen (Source) Anatomical Collection Method Collection Time Re ceived Time Location / / Volume Laterality 12/01/2016 3:38 PM CDT Narrative 12/01/2016 3:52 PM CDT US TESTICLE W DOPPLER 12/01/2016 3:38 PM INDICATION: Testicular pain and swelling . TECHNIQUE: Ultrasound of scrotum with du plex utilizing 2D lopez-scale imaging, Doppler interrogation with colo r-flow and spectral waveform analysis. COMPARISON: None. FINDINGS: ?? RIGHT: Right testicle measures 3.7 x 2.8 x 2.9 cm. Normal testicle with no masses. Normal arterial duplex and be l color flow. The right epididymis appears more vascular than the left. The re is a moderate-sized hydrocele. LEFT: Left testicle measures 3.5 x 2.8 x 2.4 cm. Normal testicle with no masses. Normal arterial duplex and be l color flow. Normal epididymis. There is a left hydrocele. CONCLUSION: 1. ??The testicles appear unremarkable. 2. ??There are bilateral hydroceles, lar bismark on the right. 3. ??The right epididymis is larger than the left, has more prominent flow than the left, this may indicate epididy mitis. Procedure Note Ranjeet Young MD - 12/01/2016Formatt ing of this note might be different from the original. US TESTICLE W DOPPLER 12/01/2016 3:38 PM INDICATION: Testicular pain and swelling . TECHNIQUE: Ultrasound of scrotum with du plex utilizing 2D lopez-scale imaging, Doppler interrogation with colo r-flow and spectral waveform analysis. COMPARISON: None. FINDINGS: RIGHT: Right testicle measures 3.7 x 2.8 x 2.9 cm. Normal testicle with no masses. Normal arterial duplex and be l color flow. The right epididymis appears more vascular than the left. The re is a moderate-sized hydrocele. LEFT: Left testicle measures 3.5 x 2.8 x 2.4 cm. Normal testicle with no masses. Normal arterial duplex and be l color flow. Normal epididymis. There is a left hydrocele. CONCLUSION: 1. The testicles appear unremarkable. 2. There are bilateral hydroceles, large r on the right. 3. The right epididymis is larger than t he left, has more prominent flow than the left, this may indicate epididy mitis. Morgan JAUREGUI documented in this encounter Visit Diagnoses Diagnosis Testicular pain, right Unspecified disorder of male genital org ans documented in this encounter Care Teams Brush Holder Assembler Relationship Specialty Start Date End Date Morgan Bass DO PCP - General Family Practice 10/02/16 10/25/17 [address] [place] [address] documented as of this encounter
--- OUTSIDE RECORDS SUMMARY | 2022-02-24 12:22 | XMS_ITS | Encounter Summary ---
:1935 Author Organization [facility] Address [address] [address] Care Team Providers Name Role Phone Morgan Bass DO Primary Care Provider Encounter Details Date Type Department Care Team Description 12/29/2016 Lab Visit [facility] Urinary frequency Laboratory [address] [address] Social History Tobacco Use Types Packs/Day [...] encounter Progress Notes Deepika Arellano RN - 12/29/2016 3:48 PM CDT Patient has been notified of his test results. Deepika Arellano RN 12/29/2016, 3:48 PM Val Jordan APRN, CNP - 12/29/2016 2:41 PM CDT Please check with patient which pharmacy should be used. Vla Jordan APRN, CNP 12/29/2016, 2:41 PM Val Jordan APRN, CNP - 12/29/2016 2:39 PM CDT Please call patient and let him know he probably has a UTI. Will treat with Bactrim DS 1 BID x 10 days. UC ordered. Patient to keep his appointment scheduled with Dr. Rodney tomorrow. Val Jordan APRN, CNP 12/29/2016, 2:38 PM documented in this encounter Plan of Treatment Not on filedocumented as of this encounter Procedures Procedure Name Priority Date/Time Associated Diagnosis Comme nts UA MICRO IF STAT 12/29/2016 1:55 PM Urinary frequency Resu lts for this CDT procedure are i n the results section . UA MICRO STAT 12/29/2016 1:55 PM Results f or this CDT procedure are i n the results section . documented in this encounter Results UA MICRO (12/29/2016 1:55 PM CDT) P athologist Signature RBC'S 0-3 0 - 3 /hpf [facility] WBC'S 3-5 0 - 5 /hpf [facility] Epith, 0 /hpf [facility] Squamous [facility] Bact Many [facility] Casts 0 /lpf [facility] Specimen Anatomical Collection Method Collection Time Receive d Time (Source) Location / / Volume Laterality 12/29/2016 1:55 PM 7 2:00 CDT PM CDT Narrative [facility] - 12/29/2016 2:33 PM C DT Performed at [place] [facility], [address] [place] [address] Waqas Rodney MD LAB_1 Performing Organization Address [facility] Phon e Number [facility] [phone] (ABNORMAL) UA Micro If (12/29/2016 1:55 PM CDT) [facility] Method Time Signature Urine Color Yellow [facility] Urine Clarity Clear [facility] Sp Gr 1.020 1.005 - [facility] 1[facility]030 [facility] Leuk Tr (A) NEG [facility] Nitr Positive NEG [facility] (A) [facility] pH 5.5 4.5 - 8.0 [facility] Prot Negative NEG mg/dl [facility] Gluc Negative NEG [facility] Ket Negative NEG [facility] Urob 0.2 0.2 - 1.0 [facility] EU/dl [facility] Bili Negative NEG [facility] Blood Neg/Tr NEGTR [facility] Specimen Anatomical Collection Method Collection Time Receive d Time (Source) Location / / Volume Laterality 12/29/2016 1:55 PM 7 2:00 CDT PM CDT Narrative [facility] - 12/29/2016 2:32 PM C DT Performed at [place] [facility], [address] [place] [address] Waqas Rodney MD LAB_1 Performing Organization Address City/[facility] Phon e Number [facility] [phone] documented in this encounter Visit Diagnoses Diagnosis Urinary frequency documented in this encounter Care Teams Manager Urgent Care Relationship Specialty Start Date End Date Morgan Bass DO PCP - General Family Practice 10/02/16 10/25/17 [address] [place] [address] documented as of this encounter
--- OUTSIDE RECORDS SUMMARY | 2022-02-24 12:22 | XMS_ITS | Encounter Summary ---
:1935 Author Organization [facility] Address [address], [place] [address] Care Team Providers Name Role Phone Morgan Bass Primary Care Provider Reason for Visit Reason Comments GROIN PAIN Encounter Details Date Type Department Care Team Description 12/30/2016 Office Visit [facility] Waqas Rodney ostatitis, [place] Edson Griffith MD unspecified [facility] [address] prostatitis type [address] [facility] (Primary Dx) [place] [address] [place], [place] [phone] [address] Social History Tobacco Use Types Packs/Day Years [...] Patient Instructions Patient InstructionsStWaqas haynes MD - 12/30/2016 1:10 PM CDT Images from the original note were not included. Ref Range & Units 12/29/16 ??1:55 PM RBC'S 0 - 3 /hpf 0-3 WBC'S 0 - 5 /hpf 3-5 Epith, Squamous /hpf 0 Bact Many Casts /lpf 0 Resulting Agency [facility] Other tests: Urine Culture Order: [id number] Status: Preliminary result ?Visible to patient: No (Not Released) Next appt: 03/30/2017 at 09:30 AM in Neurology (Lianne Feldman MD) 12/29/16 ??1:55 PM Specimen Description Urine Special Requests Unspecified Culture > 100,000 col/ml Gram Negative Bacilli Identification to Follow SENSITIVITY WILL FOLLOW A: UTI, right epididymitis. P: start antibiotics today. Tylenol prn. Heating pad 2 times a day May take a few days to notice improvement. documented in this encounter Progress Notes Waqas Rodney MD - 12/30/2016 1:10 PM CDT Images from the original note were not included. Date of Service: 12/30/2016 S: This patient returns for recheck of a UTI. Some FUD and right testis enlargment and tenderness. . Since the last visit there has been no other significant problems. There is no fever, significant weight loss or rash. No new urologic medications have been prescribed. No complaints of urinary leakage, hematuria, UTI's. No rashes of the ext genitalia. No intervention by other caregiver for problem. No change in sexual function. O: There were no vitals filed for this visit. Alert and oriented and good spirits. No rashes on the face or trunk. No gynecomastia, no flank masses. Abdomen and flank soft, no rebound or masses. No inguinal masses or hernia. Testis benign, descended. Urethral meatus normal, no peyronies plaques. Anal tone normal, no rectal masses, prostate benign and symmetric. Other tests: Urine Culture Order: [id number] Status: Preliminary result ?Visible to patient: No (Not Released) Next appt: 03/30/2017 at 09:30 AM in Neurology (Lianne Feldman MD) 12/29/16 ??1:55 PM Specimen Description Urine Special Requests Unspecified Culture > 100,000 col/ml Gram Negative Bacilli Identification to Follow SENSITIVITY WILL FOLLOW Notes Recorded by Val Jordan APRN, CNP on 12/29/2016 at 2:39 PM Please call patient and let him know he probably has a UTI. ??Will treat with Bactrim DS 1 BID x 10 days. UC ordered. ??Patient to keep his appointment scheduled with Dr. Rodney tomorrow. Val Jordan APRN, CNP ??12/29/2016, 2:38 PM Ref Range & Units 12/29/16 ??1:55 PM RBC'S 0 - 3 /hpf 0-3 WBC'S 0 - 5 /hpf 3-5 Epith, Squamous /hpf 0 Bact Many Casts /lpf 0 Resulting Agency [facility] A: UTI, right epididymitis. P: start antibiotics today. Tylenol prn. Heating pad 2 times a day May take a few days to notice improvement. (Please note this document was prepared with voice recognition software likely resulting in unintentional word substitutions. Please contact me if clarification is needed.) documented in this encounter Plan of Treatment Not on filedocumented as of this encounter Visit Diagnoses Diagnosis Prostatitis, unspecified prostatitis typ e - Primary documented in this encounter Care Teams Business Services Clerk Relationship Specialty Start Date End Date Morgan Bass DO PCP - General Family Practice 10/02/16 10/25/17 [address] [place] [address] documented as of this encounter
--- OUTSIDE RECORDS SUMMARY | 2022-02-24 12:22 | XMS_ITS | Encounter Summary ---
:1935 Author Organization [facility] Address [address], [place] [address] Care Team Providers Name Role Phone Morgan Bass DO Primary Care Provider Encounter Details Date Type Department Care Team Description 12/29/2016 Notes/Orders [facility] Val Jordan, Uri nary tract [facility] LEGAL OFFICER, SENIOR FIRE PROTECTION ENGINEER infection, site [facility] [address] unspecified (Primary [address] Dx) [place] [address] [place], [place] [phone] [address] Social History Tobacco Use Types Packs/Day Years [...] of this encounter Visit Diagnoses Diagnosis Urinary tract infection, site unspecifie d - Primary documented in this encounter Care Teams Manager Mac Relationship Specialty Start Date End Date Morgan Bass DO PCP - General Family Practice 10/02/16 10/25/17 [address] [place] [address] documented as of this encounter
--- OUTSIDE RECORDS SUMMARY | 2022-02-24 12:22 | XMS_ITS | Encounter Summary ---
:1935 Author Organization [facility] Address [address], [place] [address] Care Team Providers Name Role Phone Morgan Bass DO Primary Care Provider Reason for Visit Reason Comments PELVIC PAIN Encounter Details Date Type Department Care Team Description 12/29/2016 Office Visit [facility] Morgan Bass troesophageal reflux disease, esophagitis presence not specified (Primary Dx); Beatriz Rose DO Encounter for long-term (current) use of medications; Practice [address] [place] [address] Essential hypertension [address] [place] [address] [facility] [phone] [place] [id number] Social History Tobacco Use Types Packs/Day Years [...] Sign Reading Time Taken Comments Blood Pressure 132/76 12/29/2016 2:18 PM CDT Pulse 75 12/29/2016 2:18 PM CDT Temperature 36.4 ??C (97.6 ??F) 12/29/2016 2:18 PM CDT Respiratory Rate 16 12/29/2016 2:18 PM CDT Oxygen Saturation - - Inhaled Oxygen Concentration - - Weight 103.4 kg (228 lb) 12/29/2016 2:18 PM CDT Height 172.7 cm (5' 8) 12/29/2016 2:18 PM CDT Body Mass Index 34.67 12/29/2016 2:18 PM CDT documented in this encounter Patient Instructions Patient InstructionsMillMorgan sutton DO - 12/29/2016 2:10 PM CDT Zantac OTC 1-2 tablets 2x daily documented in this encounter Progress Notes Morgan Bass DO - 12/29/2016 2:10 PM CDT Chief Complaint Patient presents with ??? PELVIC PAIN HPI: Patient is an 81-year-old male who is coming in for detailed follow up of multiple issues. First follows been having some right lower quadrant pain patient states he has a history of orchitis which he is seeing the urologist four. He has an appointment tomorrow he states the pain goes up into hisabdomen and essentially is after he urinates the pain does go on throughout the day as well. He otherwise denies any dysuria frequency or urgency. Also has a history of high blood pressure has been on his medicines and is feeling well his blood pressure is actually controlled today. So I discussed staying on the medicine. Also has a history of reflux disease which she read an article that Prilosec was not good for him sowe discussed using Tums or Zantac. He otherwise denies any other complaints Current Outpatient Prescriptions Medication Sig Note Dispense Refill ??? acetaminophen [...] TABLET BY MOUTH EVERY DAY 90 Tab 0 ??? aspirin 325 MG tablet Take 325 [...] MOUTH TWICE DAILY ONE HOUR BEFORE A MEAL(Patient not taking: Reported on 12/29/2016) 180 Cap 3 ??? pravastatin (PRAVACHOL) 40 MG tablet Take 1 Tab by mouth daily at bedtime. 90 Tab 3 No current facility-administered medications for this visit. ROS: see HPI OBJECTIVE Vitals: 12/29/16 1418 BP: 132/76 Pulse: 75 Resp: 16 Temp: 97.6 ??F (36.4 ??C) General Examination General Appearance:stated age, in no distress Head:atraumatic, normocephalic Eyes:PERRLA and EOM's intact Ears:bilateral TM's and external ear canals normal Nose:clear mucous Throat:WNL Neck/Thyroid:supple, without masses Lymph Nodes:Cervical, supraclavicular, and axillary nodes normal. Heart:Normal S1 and S2. Regular rhythm. No murmurs, gallops, or rubs. Lungs:Clear to auscultation without rales or rhonchi Abdomen:soft, without masses, distention or organomegaly, bowel sounds intact, positive pain radiating into the right groin no hernia palpable ASSESSMENT: ICD-10-CM 1. Gastroesophageal reflux disease, esophagitis presence not specified K21.9 2. Encounter for long-term (current) use of medications Z79.899 Complete Blood Count-W/Diff 3. Essential hypertension (HRC) I10 PLAN 1. Gastroesophageal reflux disease-continue on Zantac or Tums [id number]. Did discuss he can discontinue his Prilosec. 2. Orchitis with probable referred pain to right lower quadrant. Urinalysis, urinalysis micro and CBC were all normal. 3. Essential hypertension-blood pressure at goal continue medications no additions or subtractions 4. All questions were answered to patient's satisfaction This document was created with speech recognition software so there could be errors in phrasing or unintended word subsitiution. documented in this encounter Plan of Treatment Not on filedocumented as of this encounter Procedures Procedure Name Priority Date/Time Associated Diagnosis Comme nts GOLD HOLD TUBE (OR Routine 12/29/2016 1:54 PM Res ults for this RED/SILVERMAN) CDT procedure are i n the results section. LIGHT GREEN HOLD Routine 12/29/2016 1:54 PM Resul ts for this TUBE CDT procedure are i n the results section. COMPLETE BLOOD Routine 12/29/2016 1:54 PM Encounter for Result s for this COUNT-W/DIFF CDT long-term (current) procedur e are in use of medications the resul ts section. documented in this encounter Results LIGHT GREEN HOLD TUBE (12/29/2016 1:54 PM CDT) [facility] gist Method Time Signature Light Green Held in [facility] Hold Tub [facility] sample rack for 5 days. Specimen Anatomical Collection Method Collection Time Receive d Time (Source) Location / / Volume Laterality 12/29/2016 1:54 PM 7 1:59 CDT PM CDT Narrative [facility] - 12/29/2016 2:02 PM C DT Performed at [place] [facility] [address], [address] [place] [address] Morgan Bass DO LAB_1 Performing Organization Address City/[facility]/ZIP Code Phon e Number [facility] [phone] Gold Hold Tube (Or Red/Silverman) (12/29/2016 1:54 PM CDT) [facility] gist Method Time Signature Gold Hold Held in [facility] Tube [facility] sample rack for 5 days. Specimen Anatomical Collection Method Collection Time Receive d Time (Source) Location / / Volume Laterality 12/29/2016 1:54 PM 7 1:59 CDT PM CDT Narrative [facility] - 12/29/2016 2:02 PM C DT Performed at [place] [facility] [address], [address] [place] [address] Morgan Bass DO LAB_1 Performing Organization Address City/[facility] Phon e Number [facility] [phone] Complete Blood Count-W/Diff (12/29/2016 1:54 PM CDT) Analysis Performed At [facility] logist Time Signature WBC 6.6 4.0 - 11.0 [facility] k/ul [facility] RBC 5.11 4.5 - 5.9 [facility] M/ul [facility] Hemoglobin 15.9 13.5 - [facility] 17.5 g/dl [facility] HCT 47.0 41.0 - [facility] 53.0 % LAB[facility] MCV 92.0 80 - 100 [facility] fl [facility] MCH 31.1 26 - 34 pg [facility] MCHC 33.8 32 - 36 [facility] g/dl [facility] RDW 13.4 11.5 - [facility] 14.5 % [facility] Platelets 187 150 - 450 [facility] k/ul [facility] MPV 9.8 6.5 - 11.0 [facility] fl [facility] PMN/Band 51 % [facility] Lymph 34 % [facility] Stonewall 10 % [facility] Eos 4 % [facility] Baso 1 % [facility] Neutrophil 3.4 1.8 - 7.7 [facility] Absolute k/ul LAB[facility]IES Lymph Absolute 2.2 1.0 - 4.8 [facility] k/ul [facility] Stonewall Absolute 0.7 0.1 - 0.7 [facility] k/ul [facility] Eos Absolute 0.3 0.0 - 0.5 [facility] k/ul [facility] Baso Absolute 0.1 0.0 - 0.2 [facility] k/ul [facility] Immature Gran 0 % [facility] Imm Gran 0.0 0 k/ul [facility] Absolute [facility] Specimen Anatomical Collection Method Collection Time Receive d Time (Source) Location / / Volume Laterality 12/29/2016 1:54 PM 7 1:59 CDT PM CDT Narrative [facility] - 12/29/2016 2:06 PM C DT Performed at [place] [facility] [address], [address] [place] [address] Morgan Bass DO LAB_1 Performing Organization Address City/State/ZIP Code Phon e Number [facility] [phone] documented in this encounter Visit Diagnoses Diagnosis Gastroesophageal reflux disease, esophag itis presence not specified - Primary Encounter for long-term (current) use of medications Encounter for long-term (current) use of other medications Essential hypertension (HRC) Unspecified essential hypertension documented in this encounter Care Teams Pit Supervisor Relationship Specialty Start Date End Date Morgan Bass DO PCP - General Family Practice 10/02/16 10/25/17 [address] [place], [place] [id number] documented as of this encounter
--- OUTSIDE RECORDS SUMMARY | 2022-02-24 12:22 | XMS_ITS | Encounter Summary ---
:1935 Author Organization [facility] Address [address], [place] [address] Care Team Providers Name Role Phone Morgan Bass DO Primary Care Provider [phone] Encounter Details Date Type Department Care Team Description 12/01/2016 Notes/Orders [facility] Morgan Bass ticular pain, [facility] DO [place] right (Primary Dx) Practice [address] [place] [address] [address] [facility] [address] [facility] [place] [address] [place], [place] [phone] Social History Tobacco Use Types Packs/Day Years [...] as of this encounter Visit Diagnoses Diagnosis Testicular pain, right - Primary Unspecified disorder of male genital org ans documented in this encounter Care Teams Radiology Asst Relationship Specialty Start Date End Date Morgan Bass DO PCP - General Family Practice 10/02/16 10/25/17 [address] [place] [address] documented as of this encounter
--- OUTSIDE RECORDS SUMMARY | 2022-02-24 12:22 | XMS_ITS | Encounter Summary ---
:1935 Author Organization [facility] Address [address], [place] [address] Care Team Providers Name Role Phone Kali Morgan Milton Primary Care Provider Reason for Visit Reason Comments Revisit Right swollen testicle Encounter Details Date Type Department Care Team Description 12/02/2016 Office Visit [facility] Waqas Rodney Or Henok Griffith MD epididymitis (Primary [facility] [address]x) [address] [place] [address] [place], [place] [phone] [address] Social History Tobacco Use Types Packs/Day Years [...] Sign Reading Time Taken Comments Blood Pressure 152/85 12/02/2016 4:20 PM CDT Pulse 75 12/02/2016 4:20 PM CDT Temperature - - Respiratory Rate - - Oxygen Saturation - - Inhaled Oxygen Concentration - - Weight - - Height - - Body Mass Index - - documented in this encounter Patient Instructions Patient InstructionsStWaqas haynes MD - 12/02/2016 4:20 PM CDT A: Right epididymitis. No evidence caused by pravachol. P: Ice x 48 hrs on /off While awake as best can Then switch to heat Finish antibiotics. [facility]c for tendonitis, if occurs contact Dr. sloan take antibiotic with dairy for an hour or so and for vitamin Can take advil prn (tyelonol wont help the swelling) Keep elevated or supported as best can If worsens while on treatment or fevers then call see DR Peralta documented in this encounter Progress Notes Waqas Rodney MD - 12/02/2016 4:20 PM CDT Date of Service: 12/02/2016 S: This patient returns for right epididymtis. This came on 4 days ago, progressive swelling and tenderness. US showed hydroceles and epididymitis. . Started on cipro. Since the last visit there has been no other significant problems. There is no fever, significant weight loss or rash. No new urologic medications have been prescribed. No complaints of urinary leakage, hematuria, UTI's. No rashes of the ext genitalia. No intervention by other caregiver for problem. No change in sexual function. O: Vitals: 12/02/16 1620 BP: (!) 152/85 Pulse: 75 Alert and oriented and good spirits. No rashes on the face or trunk. No gynecomastia, no flank masses. Abdomen and flank soft, no rebound or masses. No inguinal masses or hernia. Swollen right testis,no cellulitis. Tender epididymis. Urethral meatus normal, no peyronies plaques. Anal tone normal, no rectal masses, prostate benign and symmetric. Other tests: Urine showed increased WBC. US reviewed. A: Right epididymitis. No evidence caused by pravachol. P: Ice x 48 hrs on /off While awake as best can Then switch to heat Finish antibiotics. wathc for tendonitis, if occurs contact Dr. sloan take antibiotic with dairy for an hour or so and for vitamin Can take advil prn (tyelonol wont help the swelling) Keep elevated or supported as best can If worsens while on treatment or fevers then call see DR Peralta (Please note this document was prepared with voice recognition software likely resulting in unintentional word substitutions. Please contact me if clarification is needed.) documented in this encounter Plan of Treatment Not on filedocumented as of this encounter Visit Diagnoses Diagnosis Orchitis and epididymitis - Primary Orchitis and epididymitis, unspecified documented in this encounter Care Teams Latrine Cleaner Relationship Specialty Start Date End Date Morgan Bass DO PCP - General Family Practice 10/02/16 10/25/17 [address] [place], [place] [id number] documented as of this encounter
--- OUTSIDE RECORDS SUMMARY | 2022-02-24 12:22 | XMS_ITS | Encounter Summary ---
:1935 Author Organization [facility] Address [address] [address] Care Team Providers Name Role Phone Bass Morgan Rose Primary Care Provider Reason for Visit Reason Comments Orders Needed Lab orders needed for possib le UTI Encounter Details Date Type Department Care Team Description 01/19/2017 Telephone [facility] Waqas Rodney Or daniela Needed (Lab [place] Edson Griffith MD orders needed for [facility] [address] possible UTI) [address] [place] [address] [place], [place] [phone] [address] Social History Tobacco Use Types Packs/Day Years [...] encounter Nursing Notes Tania Calloway RN - 01/19/2017 12:40 PM CDT Spoke with patient and he states he is concerned he still has infection. Patient states it doesn't feel right. Denies hematuria. Patient states it mccabe during urination but not every time and frequency has increased. Instructed patient to schedule an appt with lab for UA. Orders for UA have been placed. Patient agrees with the plan and verbalizes agreement. Patient hung up before being transferred to scheduling. Tania Calloway RN 01/19/2017, 12:44 PM Val Jordan APRN, CNP - 01/19/2017 10:27 AM CDT Please call patient to triage sx. UA order entered into Epic. Val Jordan APRN, CNP 01/19/2017, 10:27 AM Rosemarie Vasquez - 01/19/2017 10:21 AM CDT Orders - Laboratory [Administrative Support Manager/Appt Center: If this call is after 3 p.m., communicate to patient: If we are not able to get back to you by the end of the day and your symptoms worsen please contact the Careline at [phone] OR at .] What lab order is being requested? UTI Why is this order being requested? Patient would like to discuss possible infection Have you been seen recently for this concern? No [Administrative Support Manager/Appt Center:If patient was seen at an outside location, please obtain records] Is it okay to leave a detailed message on your voicemail? Yes [Administrative Support Manager/Appt Center: Instruct patient to check with insurance company for coverage] Is there anything else I can help you with today? Rosemarie Vasquez Please route to: Care Team Pool documented in this encounter Plan of Treatment Not on filedocumented as of this encounter Results UA Micro If (01/19/2017 1:45 PM CDT) [facility] gist Method Time Signature Urine Color Yellow [facility] Urine Clarity Clear [facility] Sp Gr 1.020 1.005 - [facility] 1[facility]030 [facility] Leuk Negative NEG [facility] Nitr Negative NEG [facility] pH 5.0 4.5 - 8.0 [facility] Prot Negative NEG mg/dl [facility] Gluc Negative NEG [facility] Ket Negative NEG [facility] Urob 0.2 0.2 - 1.0 [facility] EU/dl [facility] Bili Negative NEG [facility] Blood Neg/Tr NEGTR [facility] Specimen Anatomical Collection Method Collection Time Receive d Time (Source) Location / / Volume Laterality 01/19/2017 1:45 PM 7 1:51 CDT PM CDT Narrative [facility] - 01/19/2017 2:03 PM C DT Performed at [facility], [address] [place] [address] Val Jordan APRN, CNP LAB_1 Performing Organization Address City/State/ZIP Code Phon e Number [facility] [phone] documented in this encounter Visit Diagnoses Diagnosis H/O recurrent urinary tract infection - Primary Personal history of urinary (tract) infe ction H/O recurrent urinary tract infection Personal history of urinary (tract) infe ction documented in this encounter Care Teams Loin Puller Relationship Specialty Start Date End Date Morgan Bass DO PCP - General Family Practice 10/02/16 10/25/17 [address] [place], [place] [id number] documented as of this encounter
--- OUTSIDE RECORDS SUMMARY | 2022-02-24 12:22 | XMS_ITS | Encounter Summary ---
:1935 Author Organization [facility] Address [address], [place] [address] Care Team Providers Name Role Phone Kali Morgan Milton DO Primary Care Provider Reason for Visit Reason Onset Date Comments Refill 12/29/2016 Encounter Details Date Type Department Care Team Description 12/29/2016 Refill [facility] Kole Jordan APRN, Refill [facility] UPS DRIVER [address] [place] [address] [place] [address] [phone] (Wo rk) Social History Tobacco Use Types [...] Primary documented in this encounter Care Teams Animal Laboratory Helper Relationship Specialty Start Date End Date Morgan Bass DO PCP - General Family Practice 10/02/16 10/25/17 [address] [place] [address] documented as of this encounter
--- OUTSIDE RECORDS SUMMARY | 2022-02-24 12:22 | XMS_ITS | Encounter Summary ---
:1935 Author Organization [facility] Address [address], [place] [address] Care Team Providers Name Role Phone Kali Morgan Rose Primary Care Provider [phone] Reason for Visit Reason Comments UTI Encounter Details Date Type Department Care Team Description 12/29/2016 Telephone [facility] Waqas Rodney MD UTI [facility] [address] [place] [address] [place] [address] [phone] Social History Tobacco Use Types Packs/Day Years [...] encounter Nursing Notes Deepika Arellano RN - 12/29/2016 3:44 PM CDT Placed call to patient and message given. Please call patient and let him know he probably has a UTI. ??Will treat with Bactrim DS 1 BID x 10 days. UC ordered. ??Patient to keep his appointment scheduled with Dr. Rodney tomorrow. Val Jordan APRN, CNP ??12/29/2016, 2:38 PM Patient agrees with the plan and would like the Rx sent to [facility] in [place], [place]. Medication has been t'd up for Val Jordan CNP. Deepika Arellano RN 12/29/2016, 3:47 PM Val Jordan APRN, CNP - 12/29/2016 2:41 PM CDT Patient has +LE and +nitrate. Needs to be treated. UC ordered. See results. Please confirm pharmacy (Bactrim DS BID x 10 days) and advise patient to keep appointment with Dr. Rodney as scheduled on 12/30/16. Val Jordan APRN, CNP 12/29/2016, 2:42 PM Deepika Arellano RN - 12/29/2016 10:29 AM CDT Returned call to patient and he states that he has right lower abdominal pain going into his back. He rates that pain a 6/10, throbbing and constant. He states that he did take Ibuprofen this morning and it helped with the pain. Patient states that he has been urinating every 2.5 hours and normally he urinates every 5 hours. He denies any fever, hematuria, foul smelling urine, or urgency. Patient states that he would like to leave a urine sample. Patient states that his right orchitis has not improved. Instructed patient to keep his upcoming appt on 12-30-2016. Patient will leave urine sample today and keep his appt tomorrow. Deepika Arellano RN 12/29/2016, 10:42 AM Verito Barajas - 12/29/2016 10:12 AM CDT Reason for call? Patients is calling because she would like to please get a call back to discuss patients lower abdominal pain and possible Bladder infection. Please Call Best time to reach you? Anytime Ok to leave a detailed message? yes Verito Barajas ....................................12/29/2016 10:12 AM documented in this encounter Plan of Treatment Not on filedocumented as of this encounter Results (ABNORMAL) UA Micro If (12/29/2016 1:55 PM CDT) [facility] Method Time Signature Urine Color Yellow [facility] [...] 12/29/2016 2:32 PM C DT Performed at [facility], [address] [place] [address] Waqas Rodney MD LAB_1 Performing Organization Address City/State/ZIP Code Phon e Number [facility] [phone] documented in this encounter Visit Diagnoses Diagnosis Urinary frequency - Primary Urinary frequency documented in this encounter Care Teams Slicing Machine Tender Relationship Specialty Start Date End Date Morgan Bass DO PCP - General Family Practice 10/02/16 10/25/17 [address] [place] [address] documented as of this encounter
--- OUTSIDE RECORDS SUMMARY | 2022-02-24 12:22 | XMS_ITS | Encounter Summary ---
:1935 Author Organization [facility] Address [address] [place] [address] Care Team Providers Name Role Phone Morgan Bass DO Primary Care Provider Encounter Details Date Type Department Care Team Description 01/19/2017 Lab Visit [facility] H/O re current urinary [facility] infection [address] [place] [place] [address] Social History Tobacco Use Types Packs/Day [...] documented as of this encounter Progress Notes Tania Calloway RN - 01/20/2017 10:29 AM CDT Patient notified of test results. Please see telephone encounter dated 01/20/2017. Tania Calloway RN 01/20/2017, 10:29 AM Val Jordan APRN, CNP - 01/19/2017 2:17 PM CDT Please inform patient his UA is negative for any infection. Recommend no treatment. If he continues to have dysuria, he may want to try AZO, sold OTC. Only use for a few days, will stain urine and discontinue if unable to void (can cause urinary retention). Val Jordan APRN, CNP 01/19/2017, 2:17 PM documented in this encounter Plan of Treatment Not on filedocumented as of this encounter Procedures Procedure Name Priority Date/Time Associated Diagnosis Comme nts UA MICRO IF Routine 01/19/2017 1:45 PM H/O recurrent urinary Results for this CDT tract infection procedure ar e in the results section . documented in this encounter Results UA Micro If (01/19/2017 1:45 PM CDT) [facility] Method Time Signature Urine Color Yellow [...] 01/19/2017 2:03 PM C DT Performed at [facility], [address] [place] [address], [place] [address] Val Jordan APRN, CNP LAB_1 Performing Organization Address City/State/ZIP Code Phon e Number [facility] [phone] documented in this encounter Visit Diagnoses Diagnosis H/O recurrent urinary tract infection Personal history of urinary (tract) infe ction documented in this encounter Care Teams Environmental Compliance Inspector Relationship Specialty Start Date End Date Morgan Bass DO PCP - General Family Practice 10/02/16 10/25/17 [address] [place] [address] documented as of this encounter
--- OUTSIDE RECORDS SUMMARY | 2022-02-24 12:22 | XMS_ITS | Encounter Summary ---
:1935 Author Organization [facility] Address [address], [place] [address] Care Team Providers Name Role Phone Morgan Bass DO Primary Care Provider [phone] Encounter Details Date Type Department Care Team Description 12/29/2016 Notes/Orders [facility] Val Jordan Uri nary [facility] MOBILE ELECTRONICS INSTALLERMARTI (Primary Dx) [facility] [address] [place] [address] [place], [place] [phone] Social History Tobacco Use Types Packs/Day Years [...] documented as of this encounter Progress Notes Val Jordan APRN, CNP - 12/31/2016 8:05 AM CDT Patient started on Bactrim DS. Shows susceptibility. Val Jordan APRN, CNP 12/31/2016, 8:05 AM documented in this encounter Plan of Treatment Not on filedocumented as of this encounter Procedures Procedure Name Priority Date/Time Associated Diagnosis Comme nts URINE CULTURE Routine 12/29/2016 1:55 PM Results for this CDT procedure are i n the results section . documented in this encounter Results Urine Culture (12/29/2016 1:55 PM CDT) Component Value Ref Test Analysis Performed At [facility] Range Method Time Signature Specimen Urine [facility] Description [facility] Special Unspecified [facility] Requests [facility] Culture > 100,000 [facility] col/ml [facility] Escherichia coli Report Status Final [facility] 12/31/2016 [facility]ATORIES Organism > 100,000 [facility] col/ml [facility] Escherichia coli Specimen Anatomical Collection Method Collection Time Receive d Time (Source) Location / / Volume Laterality 12/29/2016 1:55 PM 7 3:08 CDT PM CDT Narrative [facility] - 12/31/2016 7:36 AM C DT Performed at [facility], [address] [place] [address] Organism Antibiotic Method Susceptibility > 100,000 col/ml Ampicillin LV FRIEDA >16 escherichia coli Resistant Predicts Activit y of Amoxicillin Resistant > 100,000 col/ml Ampicillin/Sulbactam LV FRIEDA >16/8 escherichia coli Resistant Resistant > 100,000 col/ml Aztreonam LV FRIEDA <=2 escherichia coli Susceptible SUSCEPTIBLE > 100,000 col/ml Cefazolin LV FRIEDA 4 escherichia coli Susceptible Isolates suscept ible to Cefazolin are al so susceptible to Cephadroxil and Cephalexin. SUSCEPTIBLE > 100,000 col/ml Cefepime LV FRIEDA <=1 escherichia coli Susceptible SUSCEPTIBLE > 100,000 col/ml Cefoxitin LV FRIEDA <=4 escherichia coli Susceptible SUSCEPTIBLE > 100,000 col/ml Ciprofloxacin LV FRIEDA >2 escherichia coli Resistant Resistant > 100,000 col/ml Ertapenem LV FRIEDA <=0.25 escherichia coli Susceptible SUSCEPTIBLE > 100,000 col/ml Gentamicin LV FRIEDA <=2 escherichia coli Susceptible SUSCEPTIBLE > 100,000 col/ml Levofloxacin LV FRIEDA >4 escherichia coli Resistant Resistant > 100,000 col/ml Meropenem LV FRIEDA <=0.5 escherichia coli Susceptible SUSCEPTIBLE > 100,000 col/ml Nitrofurantoin LV FRIEDA 32 escherichia coli Susceptible SUSCEPTIBLE > 100,000 col/ml Piper/tazobactam LV FRIEDA 16/4 escherichia coli Susceptible SUSCEPTIBLE > 100,000 col/ml Trimeth/Sulfa LV FRIEDA <=0.5/9.5 escherichia coli Susceptible SUSCEPTIBLE Waqas Rodney MD LAB_1 Performing Organization Address City/State/ZIP Code Phon e Number [facility] [phone] documented in this encounter Visit Diagnoses Diagnosis Urinary frequency - Primary documented in this encounter Care Teams Mri Supervisor Relationship Specialty Start Date End Date Morgan Bass DO PCP - General Family Practice 10/02/16 10/25/17 [address] [place] [address] documented as of this encounter
--- OUTSIDE RECORDS SUMMARY | 2022-02-24 12:22 | XMS_ITS | Encounter Summary ---
:1935 Author Organization [facility] Address [address], [place] [address] Care Team Providers Name Role Phone Morgan Bass DO Primary Care Provider Reason for Visit Reason Comments Hematuria Encounter Details Date Type Department Care Team Description 01/07/2017 Office Visit [facility] Waqas Rodney Hematuria, unspecified [address] [facility] Kirill Griffith MD (Primary Dx) [place], [place] [address] [phone] [place] [address] Social History Tobacco Use Types Packs/Day Years [...] Sign Reading Time Taken Comments Blood Pressure 100/58 01/07/2017 1:03 PM CDT Pulse 85 01/07/2017 1:03 PM CDT Temperature 36.9 ??C (98.5 ??F) 01/07/2017 1:03 PM CDT Respiratory Rate 16 01/07/2017 1:03 PM CDT Oxygen Saturation - - Inhaled Oxygen Concentration - - Weight 103.4 kg (228 lb) 01/07/2017 1:03 PM CDT Height 174 cm (5' 8.5) 01/07/2017 1:03 PM CDT Body Mass Index 34.16 01/07/2017 1:03 PM CDT documented in this encounter Patient Instructions Patient InstructionsStWaqas haynes MD - 01/07/2017 1:00 PM CDT A: UTI, being treated with culture specific antibioitcs (bactrim) Resolving (slowly) epididymitis. Hematuria probably from prostate source. Prostate cancer. P: 1. Hold Aspirin for a couple of days. 2. Hydrate well to clear urine. 3 Call [facility] with update [phone] 4. Next week reculture of urine 5. I will let Dr Feldman know about your hesitation to continue the pravachol. documented in this encounter Progress Notes Waqas Rodney MD - 01/07/2017 1:00 PM CDT Date of Service: 01/07/2017 S: This patient returns for gross painless hematuria. SIC and had clots last night and a small one this AM. History of prostate cancer TURP no other rx. No bladder tumors, no radiation. On asa. . Since the last visit there has been no other significant problems. There is no fever, significant weight loss or rash. No new urologic medications have been prescribed. No complaints of urinary leakage, hematuria, UTI's. No rashes of the ext genitalia. No intervention by other caregiver for problem. No change in sexual function. O: Vitals: 01/07/17 1303 BP: 100/58 Pulse: 85 Resp: 16 Temp: 98.5 ??F (36.9 ??C) Alert and oriented and good spirits. No rashes on the face or trunk. No gynecomastia, no flank masses. Abdomen and flank soft, no rebound or masses. No inguinal masses or hernia. Testis benign, descended. Urethral meatus normal, no peyronies plaques. Other tests: UCX on bactrim for [facility]OLI Cystoscopy Date of Service: 01/07/2017 Procedure: Cystoscopy PSA 5.1 Indication: hematuria. The patient understands the indications and possible side effects including UTI , bleeding, minor irritation and rarely retention. After prepping in sterile fashion and using lidocaine intraurethral jelly, a flex cystoscope was inserted into the urethra under direct vision. URETHRA: normal with no diverticula, strictures or polyps and normal external sphincter. PROSTATE: enlarged engorged veins. BLADDER: Inspected including a retroflex view for flexible scopes only. No stones or diverticula. Nomasses no erythema.elev PVR and moderate. trabeculation. URETERAL ORIFICES: Normal, effluxed clear urine bilaterally. The patient tolerated the procedure well, was sent home with post-cystoscopy instructions. Routine antibiotic/pyridium given after procedure. Right testis improved on exam less swelling Waqas Rodney MD A: UTI, being treated with culture specific antibioitcs (bactrim) Resolving (slowly) epididymitis. Hematuria probably from prostate source. Prostate cancer. P: 1. Hold Aspirin for a couple of days. 2. Hydrate well to clear urine. 3 Call [facility] with update [phone] 4. Next week reculture of urine 5. I will let Dr Brambila know about your hesitation to continue the pravachol. (Please note this document was prepared with voice recognition software likely resulting in unintentional word substitutions. Please contact me if clarification is needed.) documented in this encounter Plan of Treatment Not on filedocumented as of this encounter Visit Diagnoses Diagnosis Hematuria, unspecified - Primary documented in this encounter Care Teams Edging Catcher Relationship Specialty Start Date End Date Morgan Bass DO PCP - General Family Practice 10/02/16 10/25/17 [address] [place] [address] documented as of this encounter
--- OUTSIDE RECORDS SUMMARY | 2022-02-24 12:22 | XMS_ITS | Encounter Summary ---
:1935 Author Organization [facility] Address [address] [address] Care Team Providers Name Role Phone Kali Morgan Rose Primary Care Provider Reason for Visit Reason Comments Hematuria Encounter Details Date Type Department Care Team Description 01/07/2017 Telephone [facility] Waqas Rodney MD Hematuria [facility] [address] [place] [address] [place] [address] [phone] Social History Tobacco Use Types Packs/Day Years [...] documented as of this encounter Nursing Notes Alejandra Aguila RN - 01/07/2017 9:42 AM CDT Called back pt and spoke with . Transferred her to appointments in [place]. Pt willing to go to NR today. Thanks. Alejandra Aguila RN 01/07/2017, 9:43 AM Waqas Rodney MD - 01/07/2017 8:58 AM CDT Hydrate well. Stop blood thinners. I am in [place] today. Ideally should be seen by urology today. Is there opening in Dr Zuniga schedule? If not, can pt cometo NR? We are full but will make sure he can be seen. If clots off catheter completely, go to ER> IET Alejandra Aguila RN - 01/07/2017 8:13 AM CDT Spoke with pt's . Pt self catheterizes 6x/day. Large amount of bright red blood at 0300 and 0700caths with small clots. Is able to pass catheter without problem. Is emptying bladder. No fevers. Nopain. Has 2 days left of bactrim treatment for UTI. I did not advise ED visit at this time. Please advise. Alejandra Aguila RN 01/07/2017, 8:16 AM Rissa Gomez V - 01/07/2017 7:37 AM CDT Reason for call? Patient's spouse calling today stating patient is experiencing blood in his urine and questioning if patient should come in today or go to the emergency room. please call number above with advise on what to do. Best time to reach you? anytime Ok to leave a detailed message? yes Rissa Hartmann ....................................01/07/2017 7:37 AM documented in this encounter Plan of Treatment Not on filedocumented as of this encounter Visit Diagnoses Not on filedocumented in this encounter Care Teams Steel Roller Relationship Specialty Start Date End Date Morgan Bass DO PCP - General Family Practice 10/02/16 10/25/17 [address] [place] [address] documented as of this encounter
--- OUTSIDE RECORDS SUMMARY | 2022-02-24 12:22 | XMS_ITS | Encounter Summary ---
:1935 Author Organization [facility] Address [address], [place] [address] Care Team Providers Name Role Phone Morgan Bass DO Primary Care Provider [phone] Reason for Visit Reason Comments RESULTS, TEST Encounter Details Date Type Department Care Team Description 12/01/2016 [facility] Morgan Bass RES, TEST [facility] anjelica Rose DO [address] [place] [address] [address] [phone] [place], [place] [id number] (Wo rk) Social History Tobacco Use Types [...] encounter Nursing Notes Massiel Narvaez CMA - 12/03/2016 11:53 AM CDT Patient was seen by urology on 12-02-16 and this was addressed. Massiel Narvaez CMA ................12/03/2016 11:53 AM Rosa Chow CMA - 12/01/2016 4:44 PM CDT Left message for patient to call back. Please inform patient of below message.Rosa Chow CMA 12/01/20164:44 PM Notes Recorded by Morgan Bass DO on 12/01/2016 at 4:11 PM Patient has bilateral fluid in his scrotum as I discussed with him in the office. ??He also has whatappears to be an inflamed epididymis. ??I did write for antibiotics for questionable urinary tract infection. (he is aware) ??I would recommend him following up with urology tomorrow. ??They may changehis antibiotics to a different antibiotic tomorrow. documented in this encounter Plan of Treatment Not on filedocumented as of this encounter Visit Diagnoses Not on filedocumented in this encounter Care Teams Appellate Conferee Relationship Specialty Start Date End Date Morgan Bass DO PCP - General Family Practice 10/02/16 10/25/17 [address] [place] [address] documented as of this encounter
--- OUTSIDE RECORDS SUMMARY | 2022-02-24 12:22 | XMS_ITS | Encounter Summary ---
:1935 Author Organization [email or web address] Address [address], [place] [address] Care Team Providers Name Role Phone No Primary/Referring, Irviny Primary Care Provider Unavailable Encounter Details Date Type Department Care Team Description 01/07/2017 Consent for [facility] CONSE NT FOR Procedure/[facility] keila SURGERY OR PROCEDURE ent Social History Tobacco Use Types Packs/Day Years [...] on filedocumented in this encounter Care Teams Leather Staker Relationship Specialty Start Date End Date No Primary/Referring, Phy PCP - General 12/11/21 documented as of this encounter
--- OUTSIDE RECORDS SUMMARY | 2022-02-24 12:22 | XMS_ITS | Encounter Summary ---
:1935 Author Organization [facility] Address [address] [place] [address] Care Team Providers Name Role Phone Iván Eid DO Primary Care Provider [phone] Reason for Visit Reason Comments Refill lisinopril (ZESTRIL) 10 MG t ablet [Pharmacy Med Name: LISINOPRIL 10MG TABLETS] Encounter Details Date Type Department Care Team Description [facility] Iván Eid Ref ill (lisinopril [facility] DO [place] (ZESTRIL) 10 MG tablet [address] [Pharmacy Med Name: [place] [address] [address] LISINOPRIL 10MG [phone] [place], [place] TABLETS]) [address] (Wo rk) Social History Tobacco Use Types [...] encounter Nursing Notes Michaela Cerda RN - 12/08/2016 2:21 PM CDT Medication(s) approved by RN per Refill Protocol/Standing Order Michaela Cerda RN 12/08/2016, 2:21 PM Interface, Out Surescripts Prov Query - 12/08/2016 1:27 PM CDT lisinopril (ZESTRIL) 10 MG tablet [Pharmacy Med Name: LISINOPRIL 10MG TABLETS] Protocol: Cardiovascular: MONCHO Inhibitors -> Refill x 12 months (until due for a(n) BUN check, Ca check, Cr check, Glucose (serum) check, Kcheck and Na check) Last qualifying visit: 12/01/2016 (in [facility]) Next scheduled visit: None Last ordered by IVÁN EID: 10/16/2016 (53 days ago) QTY: 30, Refills: 1, Sig: take 1 tab by mouth daily. (changed but equivalent) Glucose (serum): 104 mg/dL on 10/08/2016 BUN: 18 mg/dL on 10/08/2016 Cr: 1.08 mg/dL on 10/08/2016 Na: 142 mEq/L on 10/08/2016 K: 4.1 mEq/L on 10/08/2016 Ca: 9.3 mg/dL on 10/08/2016 Age: 81 Powered by [employer], Reference: [id number], 12/08/2016 1:27:55 PM CDT, Pool: PETER JEFFERY RN ([id number]) Interface, Out [employer] Query - 12/08/2016 1:27 PM CDT The following lab order(s) may [...] would see neurology on Thursday as planned. documented in this encounter Plan of Treatment Not on filedocumented as of this encounter Visit Diagnoses Diagnosis Essential hypertension (HRC) Unspecified essential hypertension documented in this encounter Care Teams Belt Fixer Relationship Specialty Start Date End Date Iván Eid DO PCP - General Family Practice 10/02/16 10/25/17 [address] [place] [address] documented as of this encounter
--- OUTSIDE RECORDS SUMMARY | 2022-02-24 12:23 | XMS_ITS | Encounter Summary ---
:1935 Author Organization [facility] Address [address] [place] [address] Care Team Providers Name Role Phone Morgan Bass DO Primary Care Provider Reason for Referral Procedure/Equipment (Routine) - Closed Specialty Diagnoses / Procedures Referred By Contact Refer red To Contact Diagnoses Testicular pain, right Morgan Bass DO Procedures US Testicle W Doppler [address] [place], [place] [address] Referral ID Status Reason Start Date Expiration Date Visits Requ ested Visits Authorized [id number] Closed 12/01/2016 03/02/2018 1 1 Reason for Visit Reason Comments SWELLING, TESTES right Encounter Details Date Type Department Care Team Description 12/01/2016 Office Visit [facility] Morgan Bass ticular pain, right (Primary Dx); Beatriz Rose DO Vertebrobasilar artery syndrome; Practice [address] Essential hypertension [address] [place] [address] [place] [address] Social History Tobacco Use Types Packs/Day Years [...] Sign Reading Time Taken Comments Blood Pressure 123/79 12/01/2016 11:36 AM CDT Pulse 69 12/01/2016 11:36 AM CDT Temperature 36.8 ??C (98.2 ??F) 12/01/2016 11:36 AM CDT Respiratory Rate 16 12/01/2016 11:36 AM CDT Oxygen Saturation - - Inhaled Oxygen Concentration - - Weight 105.2 kg (232 lb) 12/01/2016 11:36 AM CDT Height 175.3 cm (5' 9) 12/01/2016 11:36 AM CDT Body Mass Index 34.26 12/01/2016 11:36 AM CDT documented in this encounter Progress Notes Rosa Chow CMA - 12/01/2016 1:47 PM CDT The patient has been contacted and notified of this information. He wants this Rx to go [facility] out patient pharmacy. Josh. Rosa Chow [facility] 12/01/20161:47 PM Morgan Bass, - 12/01/2016 1:11 PM CDT Urine did show possible infection so we will go ahead and treat. I would recommend following up withurology tomorrow. Carlos A Howard - 12/01/2016 12:02 PM CDT Addended by: CARLOS A HOWARD on: 12/01/2016 12:02 PM Modules accepted: Orders Morgan Bass DO - 12/01/2016 11:10 AM CDT Chief Complaint Patient presents with ??? SWELLING, TESTES right HPI: Patient is a 81-year-old male who is well known to me. Patient recently has gone through a workup for questionable normal pressure hydrocephalus has had a spinal tap and is seeing Dr. Pitts they are now going ahead with a thinned brain vein which possibly could be causing transient ischemic attacks she is not concerned about normal pressure hydrocephalus so we discussed that today. His main concern is right testicular pain. Patient states on Thursday he started noticing pain in his right testicle and then some swelling the swelling has gradually gotten worse over the last 2-3 days and now the pain is a little bit worse as well he did have some difficulty sleeping due to the pain he has had no fevers chills nausea vomiting or diarrhea he states he does do self- catheterization. So is unsure if it would hurt when he urinates. He states he is using Tylenol or Motrin with some relief. Current Outpatient Prescriptions Medication Sig Note Dispense [...] day. ??? lisinopril (ZESTRIL) 10 MG tablet Take 1 Tab by mouth daily. 30 Tab 1 ??? montelukast (SINGULAIR) 10 MG tablet Take 10 mg by mouth every evening. ??? Multiple Vitamins-Minerals (ICAPS AREDS FORMULA OR) 1 Tab two times a day. ??? omeprazole (PRILOSEC) 20 MG capsule TAKE ONE CAPSULE BY MOUTH TWICE DAILY ONE HOUR BEFORE A PUSP372 Cap 3 ??? pravastatin (PRAVACHOL) 40 MG tablet Take 1 Tab by mouth daily at bedtime. 90 Tab 3 No current facility-administered medications for this visit. ROS: see HPI OBJECTIVE Vitals: 12/01/16 1136 BP: 123/79 Pulse: 69 Resp: 16 Temp: 98.2 ??F (36.8 ??C) General Examination General Appearance:stated age, in mild distress Head:atraumatic, normocephalic Eyes:PERRLA and EOM's intact Ears:bilateral TM's and external ear canals normal Nose:clear mucous Throat:WNL Neck/Thyroid:supple, without masses Lymph Nodes:Cervical, supraclavicular, and axillary nodes normal. Heart:Normal S1 and S2. Regular rhythm. No murmurs, gallops, or rubs. Lungs:Clear to auscultation without rales or rhonchi Bilaterally descended testes there is a moderate amount of fluid which could represent hydrocele on the right testicle is tender and slightly enlarged ASSESSMENT: ICD-10-CM 1. 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 Essential hypertension (HRC) I10 PLAN 1. Testicular pain-as patient is having some swelling and pain we will go ahead with testicular ultrasound to be done today. We will await results and contact patient. Urinalysis was also obtained. 2. Vertebral basilar artery syndrome continued follow up with neurology. No pressures hydrocephalus has been ruled out. 3. Risk factor reduction with lower cholesterol keeping his blood pressure down is the goal. 4. All questions were answered to patient's satisfaction will await results and contact patient This document was created with speech recognition software so there could be errors in phrasing or unintended word subsitiution. documented in this encounter Plan of Treatment Not on filedocumented as of this encounter Procedures Procedure Name Priority Date/Time Associated Diagnosis Comme nts UA WITH MICRO STAT 12/01/2016 12:02 PM Testicular pain, Res ults for this CDT right procedure are i n the results section . documented in this encounter Results US Testicle [...] left, this may indicate epididy mitis. Morgan Bass DO RAD US (ABNORMAL) UA with Micro (12/01/2016 12:02 PM CDT) [facility] gist Method Time Signature Urine Color Yellow [facility] Urine Clarity Clear [facility] Sp Gr 1.010 1.005 - [facility] Leuk Lrg (A) NEG [facility] Nitr Negative NEG [facility] pH 6.0 4.5 - 8.0 [facility] Prot Negative NEG mg/dl [facility] Gluc Negative NEG [facility] Ket Negative NEG [facility] Urob 0.2 0.2 - 1.0 [facility] EU[facility]dl [facility] Bili Negative NEG [facility] Blood Neg/Tr NEGTR [facility] RBC'S 0-3 0 - 3 [facility] WBC'S 20-50 0 - 5 [facility] Epith, Occ /hpf [facility] Bact Many [facility] Casts 0 /lpf [facility] Specimen Anatomical Collection Method Collection Time Receive d Time (Source) Location / / Volume Laterality 12/01/2016 12:02 12/01/2016 PM CDT 12:08 PM CDT Narrative [facility] - 12/01/2016 12:39 PM CDT Performed at [facility] [address] [address], [address] [place] [address] Morgan Bass DO LAB_1 Performing Organization Address City/State/ZIP Code Phon e Number [facility] [phone] documented in this encounter Visit Diagnoses Diagnosis Testicular pain, right - Primary Unspecified disorder of male genital org ans Vertebrobasilar artery syndrome Essential hypertension (HRC) Unspecified essential hypertension Testicular pain, right Unspecified disorder of male genital org ans documented in this encounter Care Teams Swift Tender Relationship Specialty Start Date End Date Morgan Bass DO PCP - General Family Practice 10/02/16 10/25/17 [address] [place] [address] documented as of this encounter
--- OUTSIDE RECORDS SUMMARY | 2022-02-24 12:23 | XMS_ITS | Encounter Summary ---
:1935 Author Organization [facility] Address [address] [address] Care Team Providers Name Role Phone Kali Morgan Milton DO Primary Care Provider [phone] Reason for Visit Reason Comments Refill allopurinol Encounter Details Date Type Department Care Team Description 11/02/2016 Refill [facility] Ramses Cleary, Refill (allopurinol) [facility] Pr anjelica [place] [address] [place] [address] [address] [phone] [place] [address] Social History Tobacco Use Types Packs/Day Years [...] encounter Nursing Notes Adelaide Rehman RN - 11/02/2016 8:05 PM CDT Ordered per Refill Standing Order/Protocol. Adelaide Rehman RN 11/02/2016, 8:06 PM Interface, Out Surescripts Prov Query - 11/02/2016 10:42 AM CDT allopurinol (ZYLOPRIM) 100 MG tablet [Pharmacy Med Name: ALLOPURINOL 100MG TABLETS] Protocol: Endocrinology: Gout Agents - Allopurinol -> GFR ([place]) was found, but the result could not be read. -> Refill x 3 months (until due for a(n) HCT check, HGB check, PLT check, RBC check, RDW check and WBC check) Last qualifying visit: 10/16/2016 ([facility] Next scheduled visit: None Last ordered by RAMSES CLEARY E: 11/04/2015 (364 days ago) QTY: 90, Refills: 3, Sig: take 1 tabletby mouth once daily (changed but equivalent) Cr: 1.08 mg/dL on 10/08/2016 ALT: 31 U/L on 10/28/2016 HGB: 15.7 g/dL on 01/16/2016 GFR ([place]): Taken on 10/08/2016 HCT: 46 % on 01/16/2016 Age: 81 PLT: 202 k/cmm on 01/16/2016 RBC: 4.96 m/cmm on 01/16/2016 RDW: 13.2 % on 01/16/2016 WBC: 7.6 k/cmm on 01/16/2016 Powered by [employer], Reference: [id number], 11/02/2016 10:42:32 AM CDT, Pool: PETER JOSE D KRISHNAN ([id number]) Interface, Out [employer] Query - 11/02/2016 10:42 AM CDT The following lab order(s) may [...] neurology on Thursday as planned. Interface, Out [employer] Query - 11/02/2016 10:42 AM CDT The following lab order(s) may [...] on filedocumented in this encounter Care Teams Steam Box Operator Relationship Specialty Start Date End Date Morgan Bass DO PCP - General Family Practice 10/02/16 10/25/17 [address] [place] [address] documented as of this encounter
--- OUTSIDE RECORDS SUMMARY | 2022-02-24 12:23 | XMS_ITS | Encounter Summary ---
:1935 Author Organization [facility] Address [address], [place] [address] Care Team Providers Name Role Phone Morgan Bass DO Primary Care Provider Reason for Visit Reason Comments QUESTIONS, GENERAL Encounter Details Date Type Department Care Team Description 12/01/2016 Telephone [facility] [address] [place] [address] [place], [place] [phone] [address] Social History Tobacco Use Types Packs/Day Years [...] encounter Nursing Notes Deepika Arellano, RN - 12/01/2016 8:42 AM CDT Returned call to Corie and notified her that both Urologist are out of the office today. It would be recommended that the patient she his PCP today as his testicle swelling continues to worsen. Corie has been transferred to scheduling. Deepika Arellano RN 12/01/2016, 8:46 AM Jael Blair - 12/01/2016 8:26 AM CDT Reason for call? calling for patient who has a swollen testicle and wants to see urologist today but told no one in clinic. Is it okay to see PCP for this, wants nurse opinion of what is best for patient today. Please call to discuss. Patient does have appointment with PCP later this morning if no other alternatives. Best time to reach you? Anytime before 10:30 am. Ok to leave a detailed message? Yes Please call a different number than stated above. Please call [phone]. Jael Blair ....................................12/01/2016 8:26 AM documented in this encounter Plan of Treatment Not on filedocumented as of this encounter Visit Diagnoses Not on filedocumented in this encounter Care Teams Colorman Relationship Specialty Start Date End Date Morgan Bass, PCP - General Family Practice 10/02/16 10/25/17 [address] [place] [address] documented as of this encounter
--- OUTSIDE RECORDS SUMMARY | 2022-02-24 12:23 | XMS_ITS | Encounter Summary ---
:1935 Author Organization [facility] Address [address] [address] Care Team Providers Name Role Phone Kali Morgan Rose Primary Care Provider Reason for Visit Reason Comments Other Encounter Details Date Type Department Care Team Description 10/14/2016 Telephone [facility] Do eleazar Feldman MD Other [facility] [address] [place] [place] [address] [place] [address] [phone] Social History Tobacco Use Types Packs/Day Years [...] as of this encounter Nursing Notes Cristina Souza, RN - 10/15/2016 8:55 AM CDT Spoke with pt. See other phone encounter. Cristina Souza RN 10/15/2016, 8:55 AM Comfort Hair - 10/14/2016 12:19 PM CDT Reason for call? Patient has several questions he would like to ask Dr. Feldman concerning his upcoming spinal tap on 10/28/16. Best time to reach you? anytime Ok to leave a detailed message? yes Comfort Hiar ....................................10/14/2016 12:19 PM documented in this encounter Plan of Treatment Not on filedocumented as of this encounter Results Fungus Culture,Miscellaneous (10/28/2016 2:36 PM CDT) Component Value Ref Test Analysis Performed At [facility] Range Method Time Signature Specimen Cerebrospinal [facility] Description Fluid [facility]OSPITAL Special Unspecified [facility] Requests HOSPITAL Fungus Smear No Yeast or [facility] Fungal Elements [facility]OSPITAL Found Culture No Fungus [facility] Culture No Nocardia [facility] Report Status Final 11/27/2016 [facility] Specimen Anatomical Collection Method Collection Time Receive d Time (Source) Location / / Volume Laterality 10/28/2016 2:36 PM 7 2:[address] [facility] - 11/27/2016 7:32 AM CD T Performed at [facility] , [address] [place] [id number] Lianne Feldman MD LAB_1 Performing Organization Address City/State/ZIP Code Phon e Number [address] [address] AFB Culture (10/28/2016 2:36 PM CDT) Component Value Ref Test Analysis Performed At [facility] gist Range Method Time Signature Specimen Cerebrospinal [facility] Description Fluid [facility]OSP[facility] Special Unspecified [facility] Requests [facility]OSPITAL AFB Smear No Acid Fast [facility] Bacilli Found [facility]OS[facility] AFB Smear Total specimen [facility] volume in cc's: [facility]OSPITAL 2 Culture No Mycobacteria [facility] Report Status Final 12/25/2016 [facility] Specimen Anatomical Collection Method Collection Time Receive d Time (Source) Location / / Volume Laterality 10/28/2016 2:36 PM 7 2:41 CDT [address] [facility] - 12/25/2016 6:21 AM CD T Performed at [facility] , [address] [place] [address] Lianne Feldman MD LAB_1 Performing Organization Address City/State/ZIP Code Phon e Number [address] [address] documented in this encounter Visit Diagnoses Diagnosis Hydrocephalus, acquired (HRC) - Primary Obstructive hydrocephalus Gait disorder Abnormality of gait Hydrocephalus, acquired (HRC) Obstructive hydrocephalus Encounter for long-term (current) use of medications Encounter for long-term (current) use of other medications Vibration sensory loss Disturbance of skin sensation Vertebrobasilar artery syndrome PROSTATE CANCER Malignant neoplasm of prostate documented in this encounter Care Teams Transformer Repairer Relationship Specialty Start Date End Date Morgan Bass DO PCP - General Family Practice 10/02/16 10/25/17 [address] [place] [address] documented as of this encounter
--- OUTSIDE RECORDS SUMMARY | 2022-02-24 12:23 | XMS_ITS | Encounter Summary ---
:1935 Author Organization [employer] Address [address] [place] [address] Care Team Providers Name Role Phone Morgan Bass DO Primary Care Provider [phone] Reason for Visit Procedure/Equipment (Routine) - Closed Specialty Diagnoses / Procedures Referred By Contact Refer red To Contact Radiology [place] Diagnoses Gait disorder Hydrocephalus, acquired (HRC) Hilaria Guzman MD Radiology Procedures FL Lumbar Puncture (For CSF) [address] [address] [place] [address] Referral ID Status Reason Start Date Expiration Date Visits Requ ested Visits Authorized [id number] Closed 10/14/2016 01/13/2018 1 1 Encounter Details Date Type Department Care Team Description 10/28/2016 Imaging [facility] Hilaria Guzman MD [address] [place] [address] Gait disorder; Imaging [facility], Lv Nurse [address] [place] [address] [phone] Hydrocephalus, acquired; [address] [place] [address] Radiologist, [address] [place] [address] Encounter for long-term (current) use of medications; [place] [address] Vibration sensory loss; [phone] Vertebrobasilar artery syndrome; PROSTATE CANCER Social History Tobacco Use Types Packs/Day Years [...] documented as of this encounter Progress Notes Eileen Camejo PA-C - 11/03/2016 4:05 PM CDT Elevated Vit. E-very mild. Likely not clinically significant. All other labs to date are negative. Appt on 11/26-will review with patient at that time. Mike Waaqs Rodney MD - 10/28/2016 4:49 PM CDT Quick Note: ifnorm PSA stable (actually lowest it has been in years). Good news. PSA twice a year. documented in this encounter Plan of Treatment Not on filedocumented as of this encounter Procedures Procedure Name Priority Date/Time Associated Diagnosis Comme nts FUNGUS Routine 10/28/2016 2:36 Hydrocephalus, Results fo r this CULTURE,MISCELLANEOUS PM CDT acquired proced ure are in the results section. AFB CULTURE Routine 10/28/2016 2:36 Hydrocephalus, Results fo r this PM CDT acquired procedure are i n the results section. FL LUMBAR PUNCTURE Routine 10/28/2016 2:35 Gait disorder Results for this (FOR CSF) PM CDT Hydrocephalus, procedure are in acquired the results section. VDRL CSF Routine 10/28/2016 2:35 Hydrocephalus, Results fo r this PM CDT acquired procedure are i n the results section. METHYLMALONIC ACID Routine 10/28/2016 2:35 Gait disorder Results for this QUANT PM CDT Hydrocephalus, procedure are in acquired the results section. BORRELIA BURGDORFERI Routine 10/28/2016 2:35 Gait disord er Results for this ANTIBODY CSF PM CDT Hydrocephalus, procedure are in acquired the results section. TREPONEMA SCREEN Routine 10/28/2016 2:35 Gait disorder Results for this PM CDT Hydrocephalus, procedure are in acquired the results section. VITAMIN E, SERUM, Routine 10/28/2016 2:35 Gait disorder Results for this (12HR FAST PM CDT Vibration sensory loss proce dure are in RECOMMENDED) the results section. LYME ANTIBODY (REFLEX Routine 10/28/2016 2:33 Gait disor keila Results for this TO LYME CONFIRMATORY PM CDT Hydrocephalus, proce dure are in PANEL) acquired the results section. FIRST CSF CELL COUNT Routine 10/28/2016 2:31 Hydrocephalus, Re sults for this & DIFF PM CDT acquired procedure are i n the results section. CSF, GLUCOSE Routine 10/28/2016 2:31 Hydrocephalus, Results fo r this PM CDT acquired procedure are i n the results section. SPINAL FLUID CULTURE Routine 10/28/2016 2:30 Hydrocephalus, Re sults for this & SMEAR PM CDT acquired procedure are i n the results section. CYTOLOGY, NON-AIRBORNE OPERATIONS SUPERINTENDENT Routine 10/28/2016 2:30 Hydrocephalus, Resul ts for this (FLUIDS,SPUTUM) PM CDT acquired procedure ar e in the results section. ANTI SS-B (LA) Routine 10/28/2016 2:29 Gait disorder Results for this PM CDT Vibration sensory loss proce dure are in the results section. ANTI SS-A (RO) Routine 10/28/2016 2:29 Gait disorder Results for this PM CDT Vibration sensory loss proce dure are in the results section. TB GOLD, QUANTIFERON Routine 10/28/2016 2:29 Gait disord er Results for this PM CDT Hydrocephalus, procedure are in acquired the results section. LIPID PANEL AND Routine 10/28/2016 2:29 Vertebrobasilar artery Results for this DIRECT LDL(IF NEEDED) PM CDT syndrome proced ure are in the results section. HOMOCYSTEINE Routine 10/28/2016 2:29 Gait disorder Results for this PM CDT Hydrocephalus, procedure are in acquired the results section. PROSTATIC SPECIFIC Routine 10/28/2016 2:29 PROSTATE CANCER Res ults for this ANTIGEN (DIAGNOSTIC PM CDT procedur e are in F/U) the results section. IGG, SERUM Routine 10/28/2016 2:29 Hydrocephalus, Results fo r this PM CDT acquired procedure are i n the results section. VITAMIN B12 ONLY Routine 10/28/2016 2:29 Gait disorder Results for this PM CDT Hydrocephalus, procedure are in acquired the results section. ALT (SGPT) Routine 10/28/2016 2:29 Encounter for Results for this PM CDT long-term (current) procedur e are in use of medications the resul ts section. FLOW CYTOMETRY Routine 10/28/2016 7:00 Hydrocephalus, Results for this AM CDT acquired procedure are i n the results section. documented in this encounter Results Fungus Culture,Miscellaneous (10/28/2016 2:36 PM CDT) Component Value Ref Test Analysis Performed At [facility] Method Time Signature Specimen Cerebrospinal [facility] Description Fluid HOSPITAL Special Unspecified [facility] Requests HOSPITAL Fungus Smear No Yeast or [facility] Fungal Elements HOSPITAL Found Culture No Fungus [facility] Isolated [facility] Culture No Nocardia [facility] Report Status Final 11/27/2016 [facility] Specimen Anatomical Collection Method Collection Time Receive d Time (Source) Location / / Volume Laterality 10/28/2016 2:36 PM 7 2:41 CDT PM CDT Narrative [facility] - 11/27/2016 7:32 AM CD T Performed at [facility] , [address] [place] [address] Hilaria Guzman MD LAB_1 Performing Organization Address City/State/ZIP Code Phon e Number [facility] [address] [place] [address] [phone] AFB Culture (10/28/2016 2:36 PM CDT) Component Value Ref Test Analysis Performed At [facility] Range Method Time Signature Specimen Cerebrospinal [facility] Description Fluid [facility] AFB Smear No Acid Fast [facility] Bacilli Found HOSPITAL AFB Smear Total specimen [facility] volume in cc's: HOSPITAL 2 Culture No Mycobacteria [facility] Isolated [facility] Report Status Final 12/25/2016 [facility] Specimen Anatomical Collection Method Collection Time Receive d Time (Source) Location / / Volume Laterality 10/28/2016 2:36 PM 7 2:41 CDT PM CDT Narrative [facility] - 12/25/2016 6:21 AM CD T Performed at [facility] , [address] [place] [address] Hilaria Guzman MD LAB_1 Performing Organization Address City/State/ZIP Code Phon e Number [facility] [address] [place] [address] [address] [place] Lumbar Puncture (For CSF) (10/28/2016 2:35 PM CDT) Anatomical Region Laterality Modality Spine, L-Spine Radio Fluoroscopy Specimen (Source) Anatomical Collection Method Collection Time Re ceived Time Location / / Volume Laterality 10/28/2016 2:35 PM CDT Narrative 10/28/2016 3:44 PM CDT 1. DIAGNOSTIC LUMBAR PUNCTURE 2. FLUOROSCOPIC GUIDANCE 10/28/2016 2:35 PM INDICATION: Gait disturbance with hydroc ephalus. ? SEDATION: None. PROCEDURE: Procedure and risks explained to patient and consent received. The patient was placed in prone position , and the L2-L3 interspinous space was localized under fluoroscopy. The low er back was prepped and draped in sterile fashion. 1% local lidocaine infu sed in local soft tissues. Under direct fluoroscopic guidance, a 20 -gauge spinal needle was placed into the spinal canal at the L2-L3 level . Opening pressure was 10 cm H2O. SPECIMEN: 31 mL of clear CSF sent to lab . COMPLICATIONS: None. RADIOLOGIC SUPERVISION AND INTERPRETATIO N: Fluoroscopy demonstrates appropriate needle tip position. FLUOROSCOPIC TIME: 0.5 minutes. NUMBER OF IMAGES: 1. IMPRESSION: Fluoroscopic guided lumbar puncture perf ormed without complication. Opening pressure 10 cm H2O. 31 mL CSF obtained. Procedure Note Morgan Anderson MD - 10/28/2016For matting of this note might be different from the original. 1. DIAGNOSTIC LUMBAR PUNCTURE 2. FLUOROSCOPIC GUIDANCE 10/28/2016 2:35 PM INDICATION: Gait disturbance with hydroc ephalus. SEDATION: None. PROCEDURE: Procedure and risks explained to patient and consent received. The patient was placed in prone position , and the L2-L3 interspinous space was localized under fluoroscopy. The low er back was prepped and draped in sterile fashion. 1% local lidocaine infu sed in local soft tissues. Under direct fluoroscopic guidance, a 20 -gauge spinal needle was placed into the spinal canal at the L2-L3 level . Opening pressure was 10 cm H2O. SPECIMEN: 31 mL of clear CSF sent to lab . COMPLICATIONS: None. RADIOLOGIC SUPERVISION AND INTERPRETATIO N: Fluoroscopy demonstrates appropriate needle tip position. FLUOROSCOPIC TIME: 0.5 minutes. NUMBER OF IMAGES: 1. IMPRESSION: Fluoroscopic guided lumbar puncture perf ormed without complication. Opening pressure 10 cm H2O. 31 mL CSF obtained. Hilaria Guzman MD RAD FL (ABNORMAL) Vitamin E, Serum, (12HR Fast Recommended) (10/28/2016 2:35 PM CDT) Component Value Ref Test Analysis Performed At [facility] Range Method Time Signature Vitamin E 20.0 [facility] Alpha-Tocophe Reference range: 5.5 to 18.0 [facility] Unit: mg/L (H) Vitamin E (NOTE) [facility] Alpha-Tocophe Test developed and characteristics determined by [facility] ? ? [facility]. See Compliance Statement B: [facility]/ Vitamin E 0.3 [facility] Gamma-Tocophe Reference range: 0.0 to 6.0 [facility] Unit: mg/L Vitamin E (NOTE) [facility] Gamma-Tocophe [address] [place], [place] [id number] [facility] [email or web address], aYn Cates MD, Lab. Director Specimen Anatomical Collection Method Collection Time Receive d Time (Source) Location / / Volume Laterality 10/28/2016 2:35 PM 7 2:40 CDT PM CDT Narrative [facility] - 10/30/2016 6:04 PM CD T Performed by [facility], [address] [place], [place] [address] Hilaria Guzman MD LAB_1 Performing Organization Address City/State/ZIP Code Phon e Number [address] [address] Treponema Screen (10/28/2016 2:35 PM CDT) Patholo gist Method Time Signature Treponema Non Reactive [facility] Screen Reference range: Non Reactive HOSPITAL Specimen Anatomical Collection Method Collection Time Receive d Time (Source) Location / / Volume Laterality 10/28/2016 2:35 PM 7 2:40 CDT PM CDT [facility] - 10/29/2016 4:57 PM CD T Performed at [facility], [address] [place] [id number] Hilaria Guzman MD LAB_1 Performing Organization Address [facility] Phon e Number [address] [address] VDRL CSF (10/28/2016 2:35 PM CDT) [facility] gist Method Time Signature T Pallidum Non Reactive [facility] (VDRL) CSF Reference range: Non Reactive HOSPITAL Reflex T Pallidum (NOTE) [facility] (VDRL) CSF Because the VDRL was Non Reactive, the VDRL titer was not ?? HOSPITAL Reflex performed. [address] [place] [address] [email or web address], Yan Cates MD, Lab. Director Specimen Anatomical Collection Method Collection Time Receive d Time (Source) Location / / Volume Laterality 10/28/2016 2:35 PM 7 2:40 CDT PM CDT [facility] - 10/30/2016 6:47 PM CD T Performed by [facility], [address] [place], [place] [address] Hilaria Guzman MD LAB_1 Performing Organization Address [facility] Phon e Number [address] [address] Methylmalonic Acid Quant (10/28/2016 2:35 PM CDT) Component Value Ref Test Analysis Performed Pathologis t Range Method Time At Signature Methylmalonic 0.14 [facility] Acid Reference range: 0.00 to 0.40 HOSPITAL Unit: umol/L Methylmalonic (NOTE) [facility] Acid INTERPRETIVE INFORMATION: MMA Serum/Plasma, ?? HOSPITAL ? Vitamin B12 Status Test developed and characteristics determined by [facility] ?? [facility]. See Compliance Statement B: [facility]/ [address], [place] [address] [email or web address], Yan Cates MD, Lab. Director Specimen Anatomical Collection Method Collection Time Receive d Time (Source) Location / / Volume Laterality 10/28/2016 2:35 PM 7 2:40 CDT PM CDT Narrative [facility] - 10/30/2016 12:59 PM C DT Performed by [facility], [address] [place] [address] Hilaria Guzman MD LAB_1 Performing Organization Address City/State/ZIP Code Phon e Number [address] [address] [address] Borrelia Burgdorferi Antibody CSF (10/28/2016 2:35 PM CDT) Component Value Ref Test Analysis Performed At [facility] gist Range Method Time Signature Lyme Ab 0.12 [facility] Interp.,EIA Reference range: <=0.99 HOSP ITAL Unit: OBIE Lyme Ab (NOTE) [facility] Interp.,EIA INTERPRETIVE INFORMATION: Borrelia burgdorferi Abs, [place], CSF ?? HOSPITAL ? 0.99 OBIE or less: ......... Negative - Antibody to ? B. burgdorferi no t detected. 1.00 - 1.20 OBIE ........... Equivocal - Repeat testing ? in 10-14 days may be helpful. 1.21 OBIE or greater: ...... Positive - Probable presence ? of antibody to B. burgdorferi ? detected. The detection of antibodies to B. burgdorferi in cerebrospin al ?? fluid may indicate central nervous system infection. ??Howev er, ?? consideration must be given to possible contamination by blo od or ?? transfer of serum antibodies across the blood-brain barrier. Current CDC recommendations for the serologic diagnosis of L yme ?? disease are to screen with a polyvalent JESSIKA test and confi rm ?? equivocal and positive results with immunoblot. ??Both IgM a nd IgG ?? immunoblots should be performed on samples less than 4 weeks after ?? appearance of erythema migrans. ??Only IgG immunoblot should be ?? performed on samples greater than 4 weeks after the disease onset. ?? IgM immunoblot in the chronic stage is not recommended and d oes ?? not aid in the diagnosis of neuroborreliosis or chronic Lyme ?? disease. ??Please submit requests for appropriate immunoblot ?? testing within 10 days. ?? Test developed and characteristics determined by [facility] ?? [facility]. See Compliance Statement B: [facility]/ [address] [place] [address] [email or web address], Yan Cates MD, Lab. Director Specimen Anatomical Collection Method Collection Time Receive d Time (Source) Location / / Volume Laterality 10/28/2016 2:35 PM 7 2:40 CDT PM CDT [facility] - 10/30/2016 2:49 PM CD T Performed by [facility], [address] [place], [place] [address] Hilaria Guzman MD LAB_1 Performing Organization Address City/State/ZIP Code Phon e Number [address] [phone] [address] [phone] Lyme Antibody, and Western Blot If Needed) (10/28/2016 2:33 PM CDT) Component Value Ref Test Analysis Performed At [facility] Range Method Time Signature Lyme Negative [facility] Interpretation Reference range: Negative HOSPITAL Lyme Units <0.10 [facility] Reference range: 0.00 to 0.90 HOSPITAL Lyme Units (NOTE) [facility] The magnitude of the measured result, above the cutoff, is HOSPITAL not indicative of the amount of antibody present. Specimen Anatomical Collection Method Collection Time Receive d Time (Source) Location / / Volume Laterality 10/28/2016 2:33 PM 7 2:38 CDT PM CDT [facility] - 10/30/2016 10:22 AM C DT Performed at [facility], [address] [place], [place] [id number] Hilaria Guzman MD LAB_1 Performing Organization Address [facility] Phon e Number [address] [address] First CSF Cell Count & Diff (10/28/2016 2:31 PM CDT) Component Value Ref Test Analysis Performed At [facility] Range Method Time Signature Source Cerebrospinal [facility]PITAL Description, CSF Clear [facility]PITAL Tube # TUBE 2 [facility] Xanthochromia Absent [facility] RBC, CSF 1 /ul [facility] Nucleated Cells, 0 0 - 5 [facility] CSF /ul HOSPITAL Specimen Anatomical Location Collection Method Collection Time Received Time (Source) / Laterality / Volume CEREBROSPINAL FLUID 10/28/2016 2:31 10/28 2:36 / Unknown PM CDT PM CDT [facility] 10/28/2016 4:45 PM CD T Performed at [facility], [address] [place] [address] Hilaria Guzman MD LAB_1 Performing Organization Address [facility] Phon e Number [address] [address] CSF Glucose (10/28/2016 2:31 PM CDT) [facility] Method Time Signature Source Cerebrospinal [facility] Fluid [facility] Glucose, CSF 53 40 - 70 [facility] mg/dl HOSPITAL Comment: The use of this assay to monitor or diag nose patients has not been approved for this specimen type by the FDA or double bass player of this assay. Specimen (Source) Anatomical Collection Method Collection Time Re ceived Time Location / / Volume Laterality Cerebrospinal fluid 10/28/2016 2:31 10/28 specimen (specimen) PM CDT 2:36 PM CDT [facility] 10/28/2016 3:16 PM CD T Performed at [facility], [address] [place] [address] Hilaria Guzman MD LAB_1 Performing Organization Address [facility] Phon e Number [address] [address] Spinal Fluid Culture & Smear (10/28/2016 2:30 PM CDT) Component Value Ref Test Analysis Performed At [facility] gist Range Method Time Signature Specimen Cerebrospinal [facility] Description Fluid HOSPITAL Special Unspecified [facility] Requests HOSPITAL Gram Smear No Organisms [facility] Seen HOSPITAL Culture No Growth After [facility] 3 Days HOSPITAL Report Status Final 10/31/2016 [facility] Specimen Anatomical Collection Method Collection Time Receive d Time (Source) Location / / Volume Laterality 10/28/2016 2:30 PM 7 2:35 CDT PM CDT [facility] - 10/31/2016 11:29 AM C DT Performed at [facility], [address] [place] [address] Hilaria Guzman MD LAB_1 Performing Organization Address [facility] Phon e Number [address] [address] Cytology, Non-Train Brake Operator (Fluids, Urine, Sputum) (10/28/2016 2:30 PM CDT) [facility] gist Method Time Signature Cytology (NOTE) [facility] Non-Train Brake Operator Cytology Report HOSPIT AL Patient Name: ZAID RUTLEDGE Taken: 10/28/2016 Received: 10/29/2016 Reported: 10/29/2016 Physician(s): HILARIA GUZMAN ? Final Cytologic Diagnosis Cerebrospinal Fluid: ? NEGATIVE FOR MALIGNANCY ? nm/10/29/2016 *Electronically Signed Out By* ? Charu Nguyen MD ? Microscopic Description Microscopic examination is performed. Gross Description 1.0 ml of clear, colorless fluid received. ??1.0 ml processe d to make 2 Matthews-stained, single cytospin slides. [facility] Department of Pathology [address] [place] [id number] Specimen Anatomical Collection Method Collection Time Receive d Time (Source) Location / / Volume Laterality 10/28/2016 2:30 PM 7 8:33 CDT AM CDT Hilaria Guzman MD LAB_1 Performing Organization Address [facility] Phon e Number [address] [phone] [address] [phone] (ABNORMAL) Prostatic Specific Antigen (F/U) (10/28/2016 2:29 PM CDT) P athologist Signature Prostatic Spec 5.1 (H) 0.0 - 4.0 [facility] Ag ng/ml HOSPITAL Comment: The Carreon PSA Chemiluminescent immunoas say is used. Results obtained with different test methods or kits can not be used interchangeably. Specimen Anatomical Collection Method Collection Time Receive d Time (Source) Location / / Volume Laterality 10/28/2016 2:29 PM 7 2:34 CDT PM CDT Narrative [facility] - 10/28/2016 4:42 PM CD T Performed at [facility], [address] [place], [place] [id number] Ramses Cleary MD LAB_1 Performing Organization Address [facility] Phon e Number [address] [phone] [address] [phone] (ABNORMAL) Lipid Panel and Direct LDL(If Needed) (10/28/2016 2:29 PM CDT) Component Value Ref Test Analysis Performed At Patholo gist Range Method Time Signature Hours Fasting Information Not hours [facility] Given HOSPITAL Cholesterol 221 (H) 0 - 199 [facility] mg/dl HOSPITAL Triglyceride 266 (H) 0 - 149 [facility] mg/dl [facility]OSPITAL HDL 30 (L) >40 [facility] mg/dl HOSPITAL LDL, Calc. 138 (H) 0 - 129 [facility] mg/dl [facility]OSPITAL Non HDL Chol, 191 mg/dl [facility] Calc HOSPITAL Specimen Anatomical Collection Method Collection Time Receive d Time (Source) Location / / Volume Laterality 10/28/2016 2:29 PM 7 2:34 CDT PM CDT [facility] - 10/28/2016 4:22 PM CD T Performed at [facility], [address] [place] [address] Ramses Cleary MD LAB_1 Performing Organization Address [facility] Phon e Number [address] [phone] Anti SS-B (La) (10/28/2016 2:29 PM CDT) [facility] gist Method Time Signature Anti-SSB (La) <0.3 0 - 6.9 [facility] Result U/mL HOSPITAL Anti-SSB (NOTE) [facility] Interpreta. Anti-SSB (La) ?Interpretation HOSPITAL VALUE ?of Test Results 0-6.9 ? Negative 7.0-10.0 ?Equivocal >10.0 ? Positive Specimen Anatomical Collection Method Collection Time Receive d Time (Source) Location / / Volume Laterality 10/28/2016 2:29 PM 7 2:34 CDT PM CDT [facility] - 10/29/2016 11:54 AM C DT Performed at [facility], [address] [place] [id number] Ramses Cleary MD LAB_1 Performing Organization Address City/[facility] Phon e Number [address] [phone] Anti SS-A (Ro) (10/28/2016 2:29 PM CDT) [facility] Method Time Signature Anti-SSA (Ro) 0.3 0 - 6.9 [facility] result U/mL HOSPITAL Anti-SSA (NOTE) [facility] Interpreta. Anti-SSA (Ro) ?Interpretation HOSPITAL VALUE ?of Test Results 0-6.9 ? Negative 7.0-10.0 ?Equivocal >10.0 ? Positive Specimen Anatomical Collection Method Collection Time Receive d Time (Source) Location / / Volume Laterality 10/28/2016 2:29 PM 7 2:34 CDT PM CDT [facility] - 10/29/2016 11:54 AM C DT Performed at [facility], [address] [place] [id number] Ramses Cleary MD LAB_1 Performing Organization Address City/State/ZIP Code Phon e Number [address] [phone] [address] [phone] TB Gold, Quantiferon (10/28/2016 2:29 PM CDT) Component Value Ref Test Analysis Performed At [facility] Range Method Time Signature TB Gold, Negative NEG [facility] Quantiferon HOSPITAL TB NIL Value <0.01 IU/mL [facility] TB Ag-NIL <0.01 IU/mL [facility] Mitogen-NIL >10.00 IU/mL [facility] Value [facility] TB Gold (NOTE) [facility] Interpreta. Nil ? TB-Nil ? Tramaine-N il ?? Quantiferon-TB ? Interpretation [facility]ITAL _ _ _ _ _ _ _ _ _ _ _ _ _ _ _ _ _ _ _ _ _ _ _ _ _ _ _ _ _ _ _ _ _ ?? <=8.0 ?? >=0.35 & ?Any ?Positive ? M .tuberculosis ? >=25% Nil ? infection likely _ _ _ _ _ _ _ _ _ _ _ _ _ _ _ _ _ _ _ _ _ _ _ _ _ _ _ _ _ _ _ _ _ <=8.0 ?? <0.35 ?>=0.5 ?Negative ? M. tuberculosis ? infection NOT likely _ _ _ _ _ _ _ _ _ _ _ _ _ _ _ _ _ _ _ _ _ _ _ _ _ _ _ _ _ _ _ _ _ _ <=8.0 ??>=0.35 & ? >=0.5 ?Negative ? M. tuberculosis ?<25% Nil ?infection NOT likely _ _ _ _ _ _ _ _ _ _ _ _ _ _ _ _ _ _ _ _ _ _ _ _ _ _ _ _ _ _ _ _ _ ?? <=8.0 ?? <0.35 ? <0.5 ? Indeterminate ?Res ults are ? indeterminate ? for antigen ? responsiveness _ _ _ _ _ _ _ _ _ _ _ _ _ _ _ _ _ _ _ _ _ _ _ _ _ _ _ _ _ _ _ _ _ <=8.0 ?? >0.35 & ? <0.5 ? Indeterminate ?Resu lts are ? <25% Nil ?indeterminate ? for antigen ? responsiveness _ _ _ _ _ _ _ _ _ _ _ _ _ _ _ _ _ _ _ _ _ _ _ _ _ _ _ _ _ _ _ _ _ _ ?? >8.0 ?Any ? Any ?Indeterminate ? Results are ? indeterminate ? for antigen ? responsiveness Note: Diagnosis or excluding tuberculosis disease, and asses sing the probability of Latent Tuberculosis Infection (LTBI), req uires a combination of epidemiological, historical, medical, and ? ? diagnostic findings should be taken into account when interpreting QuantiFERON-TB Gold results. ??See general on t he ?? diagnosis and treatment of TB disease and ?? LBTI:(http://www.cdc.gov/nchstp/tb/). The magnitude of the measured IFN-gamma level cannot be jazzy elated to stage or degree of infection, level of immune responsiven ess or likelihood for progression to active disease. A positive TB response in persons who are negative to mitoge n is rare, but has been seen in patients with TB disease. This indicates the IFN-g response to TB Antigen is greater t rios that to mitogen, which is possible as the level of mitogen d oes not maximally stimulate IFN-gamma production by lymphocytes. Specimen Anatomical Collection Method Collection Time Receive d Time (Source) Location / / Volume Laterality 10/28/2016 2:29 PM 7 2:34 CDT PM CDT [facility] - 10/30/2016 1:01 PM CD T Performed at [facility] , [address] [place] [id number] Ramses Cleary MD LAB_1 Performing Organization Address [facility] e Number [address] [address] Igg, Serum (10/28/2016 2:29 PM CDT) athologist Signature IgG, Serum 1,055 540 - 1,822 [facility] mg/dl [facility] Specimen Anatomical Collection Method Collection Time Receive d Time (Source) Location / / Volume Laterality 10/28/2016 2:29 PM 7 2:34 CDT PM CDT [facility] - 10/28/2016 6:27 PM CD T Performed at [facility], [address] [place] [address] ??[id number] Ramses Cleary MD LAB_1 Performing Organization Address City/[facility] Phon e Number [address] [address] Homocysteine (10/28/2016 2:29 PM CDT) athologist Signature Homocysteine, 15.0 5.0 - 15.4 [facility] CV umol/L [facility] Comment: Homocysteine levels drawn 6 to 8 hours a fter consumption of a large, protein rich meal may be elevated by 10 to 15%. Specimen Anatomical Collection Method Collection Time Receive d Time (Source) Location / / Volume Laterality 10/28/2016 2:29 PM 7 2:34 CDT PM CDT [facility] - 10/28/2016 6:45 PM CD T Performed at [facility], [address] [place] [address] ??[id number] Ramses Cleary MD LAB_1 Performing Organization Address City/[facility]/ZIP Code Phon e Number [address] [address] Vitamin B12 Only (10/28/2016 2:29 PM CDT) P athologist Signature Vitamin B12 401 213 - 816 [facility] pg/ml [facility] Specimen Anatomical Collection Method Collection Time Receive d Time (Source) Location / / Volume Laterality 10/28/2016 2:29 PM 7 2:34 CDT PM CDT [facility] - 10/28/2016 6:50 PM CD T Performed at [facility], [address] [place] [address] ??[id number] Ramses Cleary MD LAB_1 Performing Organization Address City/[facility]/ZIP Code Phon e Number [address] [address] ALT (SGPT) (10/28/2016 2:29 PM CDT) P athologist Signature ALT (SGPT) 31 0 - 55 U/L [facility] Specimen Anatomical Collection Method Collection Time Receive d Time (Source) Location / / Volume Laterality 10/28/2016 2:29 PM 7 2:34 CDT PM CDT [facility] - 10/28/2016 4:22 PM CD T Performed at [facility], [address] [place] [address] Ramses Cleary MD LAB_1 Performing Organization Address City/[facility]/ZIP Code Phon e Number [address] [address] Flow Cytometry (10/28/2016 7:00 AM CDT) Patholo gist Method Time Signature Hematology (NOTE) [facility] Flow Cytometry Report [facility]OSPITAL Patient Name: ZAID RUTLEDGE Accession #: ?? [id number] Taken: 10/28/2016 Received: 10/29/2016 Reported: 10/29/2016 Physician(s): HILARIA GUZMAN ? INTERPRETATION Cerebrospinal fluid, immunophenotyping: ?- Predominance of CD3 positive T lymphocytes (91%). ?- CD4 / CD8 ratio of 2.2. ?- Less than 1% CD19 positive B lymphocytes. ?- (See comment). COMMENT While the flow cytometry results could be compatible with a reactive lymphocyte population, results may be affected by the low ce llularity and viability of the CSF specimen. ??Correlation with clinic al history and results of imaging studies is recommended. nm/10/29/2016 *Electronically Signed Out By* ? Charu Nguyen MD ? GROSS DESCRIPTION Received is 5.0 ml of CSF fluid. FLOW CYTOMETRY DESCRIPTION Antibodies Performed: T cells: CD3, CD4, CD5, CD8 B cells: CD10, CD19, CD20, kappa, lambda Other: CD45 <50% viability, suboptimal viability could impact results, i nterpret with caution. Description: The cell count in this study was 2 cells per mi croliter with cell viability of 25%. ??The specimen was concentrated prior to analysis. ??The lymphocyte gate comprises approximately 74% of the CD45 positive events analyzed. ??Of these the CD19 positive B lym phocytes comprise less than 1% and the CD3 positive T lymphocytes 91% . ??A clonal/aberrant B-cell population is not seen however result s may be affected by the presence of only few B cells in the specimen . ?? T cells show uniform expression of the becker T-cell antigens C D3 and CD5. ??There is a mixture of CD4 and CD8 positive T lymphocy rekha with a CD4 / CD8 ratio of 2.2. ??An atypical dual CD4/CD8 positive T-cell population is not seen. This test was developed and the performance characteristics were determined by [facility]. ??It has not been cleared or approved by the U.S. Food and Drug Administration. ??The FDA has determined that such clearance or approval is not necessary. Note: Immunostains may also have been used on this case in c onjunction with flow Cytometry in order to address ambiguous or inconcl usive findings, provide prognostic information, and/or to evaluate different cell populations. ??In the event immunostains were also perf ormed, results of both modalities were coordinated with H&E finding s during diagnostic evaluation. [facility] Department of Pathology [address] [place] [address] ??[id number] Specimen Anatomical Collection Method Collection Time Receive d Time (Source) Location / / Volume Laterality OTHER / Unknown 10/28/2016 7:00 AM 2016 CDT 11:00 AM CDT Hilaria Guzman MD LAB PATHOLOGY Performing Organization Address City/State/[facility] Code Phon e Number [address] [address] documented in this encounter Visit Diagnoses Diagnosis Gait disorder Abnormality of gait Hydrocephalus, acquired (HRC) Obstructive hydrocephalus Encounter for long-term (current) use of medications Encounter for long-term (current) use of other medications Vibration sensory loss Disturbance of skin sensation Vertebrobasilar artery syndrome PROSTATE CANCER Malignant neoplasm of prostate documented in this encounter Care Teams Log Sorting Supervisor Relationship Specialty Start Date End Date Morgan Bass DO PCP - General Family Practice 10/02/16 10/25/17 [address] [place], [place] [id number] documented as of this encounter
--- OUTSIDE RECORDS SUMMARY | 2022-02-24 12:23 | XMS_ITS | Encounter Summary ---
:1935 Author Organization [facility] Address [address] [address] Care Team Providers Name Role Phone Kali Morganlori Rose DO Primary Care Provider Encounter Details Date Type Department Care Team Description 10/14/2016 Telephone [facility] Clinic Do eleazar Feldman MD [facility] [address] [place] [address] [place] [address] [phone] Social History Tobacco Use Types Packs/Day Years [...] encounter Nursing Notes Cristina Souza RN - 10/15/2016 9:04 AM CDT Pt informed of message below and states understanding. Cristina Souza RN 10/15/2016, 9:04 AM Cristina Souza RN - 10/14/2016 3:48 PM CDT Spoke with Dr Feldman. She states the risk of untreated normal pressure hydrocephalus is worsening gait, ataxic gait and worsening of dementia. At this point the LP is part of the work up and will help her with a dx. She is aware of his hx of macular degeneration and glaucoma. Cristina Souza RN 10/14/2016, 3:50 PM Cristina Souza RN - 10/14/2016 3:16 PM CDT Pt informed of message below and states understanding. Pt is in agreement with plan. 1. Wants to make sure you know he has a hx of macular degeneration and glaucoma. 2. 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 Which showed up on the imaging before last batch of surgeries at [facility]. Which may be why he is leaning to one direction? 3. Why is the spinal tap not optional? What if we wait? He has it scheduled for Thursday10/28/16 at 1pm. Are you going to go? Assessment and Plan printed and mailed. Also sent to his OPS account. Cristina Souza RN 10/14/2016, 3:18 PM PLAN, 10/13/2016 : ?? Testing you will need: ?? Blood testing - fasting 12 hours, and to be done at [place] on the same day as the spinal tap.??Please advise nursing that all the blood tests ordered 10/13/2016 and 10/14/2016 needs to be drawn before the spinal tap. ?? See information below about preparing for the spinal tap.?? Get really well hydrated the three days before the tap, do not take aspirin the 3 days before, you will need a sales route driver helper, and bedrest recommended for 24 hours after the tap to avoid nasty headache. ?? do not need MRIs of the spine ?? Do need evaluation of the arterial circulation to the head and neck.?? MR angiogram of the head and neck ordered as part of TIA workup. Your neurology treatment plan: ?? No specific treatment at this time.?? If you have another spell, I recommend calling 911 right away in the event it is a TIA or stroke.?? The blood clot busting drugs for stroke can only be given inthe first few hours after stroke symptoms, time is brain tissue. Follow up with, and recommendations for your primary doctor and other healthcare providers: ?? Be sure to work with your primary care doctor to stay up to date on your health maintenance testing, and for high blood pressure. Information flow (medical records outside our system, communicating between healthcare providers, coordinating your care, etc.): ?? I will send a copy of the clinic note from today's visit to Morgan Bass DO . Follow-up with Neurology:? Please schedule an appointment with me in a month Lianne Feldman MD - 10/14/2016 12:10 PM CDT Please print out AVS from yesterday's visit, call patient and advise ready to orange picker or view on-line. Also adivse I reviewed his imaging with a fine tooth comb, and he does not need MRIs of the neck andback at this time. He does however need a look at the blood flow to the brain because of the spells of double vision and dizziness. Thanks. - Lianne Feldman MD, Neurologist, 10/14/2016 at 12:11 PM documented in this encounter Plan of Treatment Not on filedocumented as of this encounter Visit Diagnoses Not on filedocumented in this encounter Care Teams Deer Farm Worker Relationship Specialty Start Date End Date Morgan Bass DO PCP - General Family Practice 10/02/16 10/25/17 [address] [place] [address] documented as of this encounter
--- OUTSIDE RECORDS SUMMARY | 2022-02-24 12:23 | XMS_ITS | Encounter Summary ---
:1935 [facility] Address [address] [place] [address] Care Team Providers Name Role Phone Morgan Bass DO Primary Care Provider [phone] Encounter Details Date Type Department Care Team Description 10/28/2016 [facility] [address] [place] [address] Social History Tobacco Use Types Packs/Day Years [...] on filedocumented in this encounter Care Teams Traditional Chinese Herbalist Relationship Specialty Start Date End Date Morgan Bass DO PCP - General Family Practice 10/02/16 10/25/17 [address] [place] [address] documented as of this encounter
--- OUTSIDE RECORDS SUMMARY | 2022-02-24 12:23 | XMS_ITS | Encounter Summary ---
:1935 Author Organization [facility] Address [address] [address] Care Team Providers Name Role Phone Kali Morganlori Rose DO Primary Care Provider Encounter Details Date Type Department Care Team Description 11/16/2016 Telephone [facility] Do eleazar Feldman MD [facility] [address] [place] [address] [place] [address] [phone] Social History Tobacco Use Types Packs/Day Years [...] encounter Nursing Notes Cristina Souza RN - 11/17/2016 4:24 PM CDT Pt informed of message below and states understanding. Pt is in agreement with plan. Cristina Souza RN 11/17/2016, 4:24 PM Elayne De La Cruz - 11/17/2016 2:57 PM CDT Patient returned call. Please contact at number listed above. Best time to reach patient: Anytime Ok to leave a detailed message:yes Elayne Tijerina............... 11/17/2016 2:57 PM Cristina Souza RN - 11/17/2016 1:01 PM CDT Left message to call back and discuss with nurse. Cristina Souza RN 11/17/2016, 1:01 PM Lianne Feldman MD - 11/16/2016 4:22 AM CDT History / background for providers: ?? 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 Imaging done in October - showed some narrowing of one of the arteries inside the head, likely responsible for dizzy spells, on right side (see report below). Neurology Care Team: Please call patient Zaid J Rutledge and discuss the followin. MR angio showed narrowing of posterior cerebral artery on right. 2. Would like him to increased to full sized regular white aspirin, 325 mg daily. 3. Physical exercise is important to keeping the blood flowing - recommend walking and getting some reasonably brisk exercise routinely if not already doing so. 4. Will discuss in more detail at f/u visit Thanks. Lianne Feldman MD,Neurologist [facility] 11/16/2016, 4:22 AM Resulted Orders MR Angio Neck W/WO IV Cont Narrative [facility] 1. HEAD MRA WITHOUT IV CONTRAST 2. NECK MRA WITHOUT AND WITH IV CONTRAST 10/28/2016 9:35 AM INDICATION: 3 spells of dizziness with dipplopia, worrisome for TIA especially posterior circulation TECHNIQUE: 1. 3D [id number] head MRA without intravenous contrast. 2. Neck MRA without and with IV contrast. CONTRAST: 10 mL of Gadavist COMPARISON: Brain MRI 10/08/2016 FINDINGS: HEAD MRA: Slightly more dominant left vertebral artery. The basilar artery and the proximal bilateral posterior cerebral arteries are patent without hemodynamically significant stenosis. There is short segment moderate to high-grade narrowing of the P2-P3 junction the left posterior cerebral artery. However the left posterior cerebral artery is patent distal to this area without hemodynamically significant stenosis. The distal extracranial internal carotid arteries are patent without hemodynamically significant stenosis. The anterior cerebral arteries are patent without hemodynamically significant stenosis. The left middle cerebral artery is patent without hemodynamically significant stenosis. The right middle cerebral artery is patent without hemodynamically significant stenosis. No intracranial aneurysms. NECK MRA: RIGHT CAROTID: No measurable stenosis in the right ICA based on NASCET criteria. The origin of the right common carotid from the brachiocephalic artery is not well imaged. LEFT CAROTID: No measurable stenosis in the left ICA based on NASCET criteria. VERTEBRAL ARTERIES: Slightly more dominant left vertebral artery. The origins of the vertebral arteries are not well imaged. There might be some mild to moderate narrowing of the origins of the vertebral arteries. Otherwise the vertebral arteries are patent throughout their course in the neck. AORTIC ARCH: Classic aortic arch anatomy with no significant stenosis at the origin of the great vessels. CONCLUSION: HEAD MRA: 1. There is short segment moderate to high-grade narrowing of the P2-P3 junction the left posterior cerebral artery. However the left posterior cerebral artery is patent distal to this area without hemodynamically significant stenosis. 2. High-grade stenosis or occlusion of the rest of the major intracranial arteries. No intracranial aneurysms. NECK MRA: 1. No significant stenosis of the internal carotid arteries bilaterally based on NASCET criteria. 2. The origins of the vertebral arteries are not well imaged. There might be some mild to moderate narrowing of the origins of the vertebral arteries. Otherwise the vertebral arteries are patent throughout their course in the neck. 3. No evidence for dissection or pseudoaneurysm. 4. The origin of the right common carotid from the brachiocephalic artery is not well imaged. documented in this encounter Plan of Treatment Not on filedocumented as of this encounter Visit Diagnoses Not on filedocumented in this encounter Care Teams Water Purifier Operator Relationship Specialty Start Date End Date Morgan Bass DO PCP - General Family Practice 10/02/16 10/25/17 [address] [place] [address] documented as of this encounter
--- OUTSIDE RECORDS SUMMARY | 2022-02-24 12:23 | XMS_ITS | Encounter Summary ---
:1935 Author Organization [facility] Address [address] [address] Care Team Providers Name Role Phone Morgan Bass DO Primary Care Provider Reason for Visit Reason Comments ROUTINE, FOLLOW-UP QUESTIONS, GENERAL spinal tap Encounter Details Date Type Department Care Team Description 10/16/2016 Office Visit [facility] Morgan Bass (Primary Dx); Beatriz Rose DO [facility] [address] [place] [address] [address] [facility] [place] [address] [place], [place] [phone] Social History Tobacco Use Types Packs/Day Years [...] Sign Reading Time Taken Comments Blood Pressure 140/78 10/16/2016 9:21 AM CDT Pulse 74 10/16/2016 9:21 AM CDT Temperature 36.8 ??C (98.3 ??F) 10/16/2016 9:19 AM CDT Respiratory Rate 16 10/16/2016 9:19 AM CDT Oxygen Saturation - - Inhaled Oxygen Concentration - - Weight 105.7 kg (233 lb) 10/16/2016 9:19 AM CDT Height - - Body Mass Index 35.17 10/06/2016 9:36 AM CDT documented in this encounter Progress Notes Morgan Bass, - 10/16/2016 9:48 AM CDT Chief Complaint Patient presents with ??? ROUTINE, FOLLOW-UP ??? QUESTIONS, GENERAL spinal tap HPI: Patient is a an 81-year-old male who is presenting with detailed follow up of multiple issues. 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 Has been seen by neurology and they are going ahead with spinal tap in the near future. He had multiple questions regarding that today. Mainly about safety and side effects. Also has a recent diagnosis of hypertension so discussed he probably needs to get this under better control so we discussed the various medications and we discussed decided to go ahead with lisinopril.Side effects of those medications were gone over with patient as well. Otherwise patient is somewhat concerned about the procedure and dementia as dementia as a possible sequelae of normal pressure hydrocephalus. I discussed with him at length I do not see that on exam today. Current Outpatient Prescriptions Medication Sig Dispense Refill ??? acetaminophen (TYLENOL) 500 MG tablet Take 500-1,000 mg by mouth two times a day. ??? ALBUterol sulfate hfa 108 (90 BASE) MCG/ACT inhaler Inhale 2 Puffs by mouth every 4 hours as needed for Wheezing. 8.5 g 11 ??? allopurinol (AKA ZYLOPRIM) 100 MG tablet TAKE 1 TABLET BY MOUTH ONCE DAILY 90 Tab 3 ??? aspirin 81 MG tablet Take 1 Tab by mouth daily. (Patient not taking: Reported on 10/13/2016) ??? dorzolamide (AKA TRUSOPT) 2 % eye drop solution Apply or instill 1 Drop into both eyes two timesa day. ??? fluticasone (AKA FLONASE) 50 MCG/ACT nasal solution Apply or instill 2 Sprays into both nostrilstwo times a day. ??? fluticasone-salmeterol (ADVAIR) 250-50 MCG/DOSE diskus inhaler Inhale 1 Puff daily. Rinse mouth/gargle after use. ??? guaiFENesin (AKA MUCINEX) 600 MG 12 hour release tablet Take 1,200 mg by mouth two times a day. Reported on 10/13/2016 ??? lisinopril (ZESTRIL) 10 MG tablet Take 1 Tab by mouth daily. 30 Tab 1 ??? LORazepam (ATIVAN) 1 MG tablet Take 1 tablet 30 minutes before scan 6 Tab 0 ??? montelukast (SINGULAIR) 10 MG tablet Take 10 mg by mouth every evening. ??? Multiple Vitamins-Minerals (ICAPS AREDS FORMULA OR) 1 Tab two times a day. ??? omeprazole (PRILOSEC) 20 MG capsule TAKE ONE CAPSULE BY MOUTH TWICE DAILY ONE HOUR BEFORE A [id number] Cap 0 No current facility-administered medications for this visit. ROS: see HPI OBJECTIVE Filed Vitals: 10/16/16 0921 BP: 140/78 Pulse: 74 Temp: Resp: General Examination General Appearance:stated age, in no distress Head:atraumatic, normocephalic Eyes:PERRLA and EOM's intact Ears:bilateral TM's and external ear canals normal Nose:clear mucous Throat:WNL Neck/Thyroid:supple, without masses Lymph Nodes:Cervical, supraclavicular, and axillary nodes normal. Heart:Normal S1 and S2. Regular rhythm. No murmurs, gallops, or rubs. Lungs:Clear to auscultation without rales or rhonchi Abdomen:soft, without masses, distention or organomegaly, bowel sounds intact ASSESSMENT: ICD-10-CM 1. Gait instability R26.81 LORazepam (ATIVAN) 1 MG tablet 2. Essential hypertension (HRC) I10 lisinopril (ZESTRIL) 10 MG tablet PLAN 1. Gait instability-possibly normal pressure hydrocephalus. Patient is due for two more MRIs as wellas a spinal tap is requesting lorazepam as that helped him with his last MRI so we went ahead and gave him #6 with no refills. 2. Essential hypertension-lisinopril 10 mg by mouth daily side effects of medication were gone over with patient. 3. Patient had various questions regarding the procedure and side effects. Total time spent with patient was greater than 30 minutes of which more than 50 percent for counseling This document was created with speech recognition software so there could be errors in phrasing or unintended word subsitiution. documented in this encounter Plan of Treatment Not on filedocumented as of this encounter Visit Diagnoses Diagnosis Gait instability - Primary Abnormality of gait Essential hypertension (HRC) Unspecified essential hypertension documented in this encounter Care Teams Granite Polisher Relationship Specialty Start Date End Date Morgan Bass DO PCP - General Family Practice 10/02/16 10/25/17 [address] [place] [address] documented as of this encounter
--- OUTSIDE RECORDS SUMMARY | 2022-02-24 12:23 | XMS_ITS | Encounter Summary ---
:1935 Author Organization [employer] Address [address], [place] [address] Care Team Providers Name Role Phone No Primary/Referring, Phy Primary Care Provider Unavailable Encounter Details Date Type Department Care Team Description 10/28/2016 Consent for LV Same Day Surgery [facility] Procedure/Treatme [address] [facility], [place] [address] Provider [phone] Social History Tobacco Use Types Packs/Day Years [...] on filedocumented in this encounter Care Teams State Wildlife Officer Relationship Specialty Start Date End Date No Primary/Referring, Phy PCP - General 12/11/21 documented as of this encounter
--- OUTSIDE RECORDS SUMMARY | 2022-02-24 12:23 | XMS_ITS | Encounter Summary ---
:1935 Author Organization [employer] Address [address] [address] Care Team Providers Name Role Phone Morgan Bass DO Primary Care Provider Encounter Details Date Type Department Care Team Description 10/28/2016 Surgery [facility] Generic Surgeon, LUMBAR PUNCTURE [address] [place] [address] [place] [address] Social History Tobacco Use Types Packs/Day Years [...] Reading Time Taken Comments Blood Pressure 123/72 10/28/2016 10:58 AM CDT Pulse 75 10/28/2016 10:58 AM CDT Temperature 36.6 ??C (97.9 ??F) 10/28/2016 10:58 AM CDT Respiratory Rate 16 10/28/2016 10:58 AM CDT Oxygen Saturation 96% 10/28/2016 10:58 AM CDT Inhaled Oxygen Concentration - - Weight 105.7 kg (233 lb) 10/24/2016 2:07 PM CDT Height 175.3 cm (5' 9) 10/24/2016 2:07 PM CDT Body Mass Index 34.41 10/24/2016 2:07 PM CDT documented in this encounter Discharge Instructions Discharge InstructionsMicki Owen RN - 10/28/2016 2:59 PM CDT Images from the original note were not included. [facility] [phone] Emergency & Urgently Needed Care: For emergencies call 911 and/or get medical help right away. If you are a [facility] member and have medical needs after clinic hours you may call the [facility] [phone] or . Special Instruction: Activities: Rest today and tomorrow Resume normal activities gradually and as tolerated in two days Diet: Resume pre-hospital diet, progress slowly Danger signs to watch for: Temperature above 101 degrees and/or chills Increased redness or swelling Increased bleeding, bruising, or pain at the puncture site Persistent nausea Sudden onset headache, especially relieved with laying flat New onset numbness or tingling in lower extremities Seek medical attention if... Call 911 anytime you think you may need emergency care. For example, call if: ?? You passed out (lost consciousness). Call your doctor now or seek immediate medical care if: ?? You have a new or higher fever and a stiff neck. ?? You have a severe headache. ?? You have any drainage or bleeding from the puncture site. ?? You feel numb or lose strength below the puncture site. We hope you had a positive experience and that you can definitely recommend [facility] to your family and friends. Lumbar Puncture: What to Expect at Home Your Recovery A lumbar puncture (also called a spinal tap) is a test to check the fluid that surrounds and protects your spinal cord and brain. Your doctor may have done this test to look for an infection. In some cases, a lumbar puncture is done to release pressure from too much fluid or to look for diseases such as multiple sclerosis. You may feel tired, and your back may be sore where the needle went in (the puncture site). You may have a mild headache for a day or two. This can happen when some of the spinal fluid is removed. Somepeople also have trouble sleeping for a day or two. The fluid taken during a lumbar puncture is often sent to a lab for tests. Your doctor or nurse willcall you with the test results. This care sheet gives you a general idea about how long it will take for you to recover. But each person recovers at a different pace. Follow the steps below to get better as quickly as possible. How can you care for yourself at home? Activity ?? Your doctor may tell you to lie flat in bed for 1 to 4 hours after the procedure. This may prevent a headache. ?? Rest when you feel tired. Getting enough sleep will help you recover. ?? Ask your doctor when you can drive again. Diet ?? Drink extra fluids after the procedure to help prevent a headache or make it less severe. Medicines ?? If you have pain, take pain medicines exactly as directed. ?? If the doctor gave you a prescription medicine for pain, take it as prescribed. ?? If you are not taking a prescription pain medicine, ask your doctor if you can take an gyge-yas-qbetkxd medicine. ?? If you think your pain medicine is making you sick to your stomach: ?? Take your medicine after meals (unless your doctor has told you not to). ?? Ask your doctor for a different pain medicine. ?? If your doctor prescribed antibiotics, take them as directed. Do not stop taking them just because you feel better. You need to take the full course of antibiotics. Follow-up care is a gonzales part of your treatment and safety. Be sure to make and go to all appointments, and call your doctor if you are having problems. It's also a good idea to know your test results and keep a list of the medicines you take. When should you call for help? Call 911 anytime you think you may need emergency care. For example, call if: ?? You passed out (lost consciousness). Call your doctor now or seek immediate medical care if: ?? You have a new or higher fever and a stiff neck. ?? You have a severe headache. ?? You have any drainage or bleeding from the puncture site. ?? You feel numb or lose strength below the puncture site. Watch closely for changes in your health, and be sure to contact your doctor if: ?? You still have a headache or sore back 2 days after your procedure. Where can you learn more? Go to [employer] and enter P586 in the search box. Current as of: February 21, 2014 Content Version: 10.4 ?? [id number] [employer], [employer]. documented in this encounter Medications at Time of Discharge Medication Sig Dispensed Refills Start Date End Date ADVAIR HFA 45-21 MCG/ACT Inhale 1 Puff every 11 inhaler morning. ALBUterol sulfate hfa Inhale 2 Puffs by 8.5 g 11 014 108 (90 BASE) MCG/ACT mouth every 4 hours inhaler as needed for Wheezing. dorzolamide (AKA [The details of the 0 TRUSOPT) 2 % eye drop medication are not solutionIndications: available because Increased Intraocular there are pending Pressure changes by a home health clinician.] fluticasone (AKA Place 1 Bodega into 0 08/03/2013 FLONASE) 50 MCG/ACT both nostrils two nasal times a day. solutionIndications: Indications: Allergic Allergic Rhinitis Rhinitis montelukast (SINGULAIR) [The details of the 0 10 MG tabletIndications: medication are not Asthma available because there are pending changes by a home health clinician.] Multiple [The details of the 0 Vitamins-Minerals (ICAPS medication are not AREDS FORMULA available because OR)Indications: there are pending supplement changes by a home health clinician.] acetaminophen (TYLENOL) Take 500-1,000 mg by 0 12/31/2020 500 MG tablet mouth two times a day. allopurinol (AKA TAKE 1 TABLET BY 90 Tab 3 11/04/2015 ZYLOPRIM) 100 MG tablet MOUTH ONCE DAILY aspirin 81 MG tablet Take 1 Tab by mouth 0 201511/26/2016 daily. fluticasone-salmeterol Inhale 1 Puff daily. 0 11/07/2016 (ADVAIR) 250-50 MCG/DOSE Rinse mouth/gargle diskus inhaler after use. guaiFENesin (AKA Take 1,200 mg by 0 MUCINEX) 600 MG 12 hour mouth two times a release tablet day. Reported on 10/13/2016 lisinopril (ZESTRIL) 10 Take 1 Tab by mouth 30 Tab 1 09/201612/08/2016 MG tabletIndications: daily. Essential hypertension (HRC) LORazepam (ATIVAN) 1 MG Take 1 tablet 30 6 Tab 0 201611/09/2016 tabletIndications: Gait minutes before scan instability omeprazole (PRILOSEC) 20 TAKE ONE CAPSULE BY 180 Cap 0 11/02/2016 MG capsule MOUTH TWICE DAILY ONE HOUR BEFORE A MEAL documented as of this encounter Progress Notes Lianne Feldman MD - 10/28/2016 12:39 PM CDT [facility], SAME DAY SURGERY, SPINAL TAP, 10/14/2016 Patient Identification: Zaid Rutledge, 1935 ENDO/Endo Pool Bed NEUROLOGIST: Lianne Feldman MD on 10/28/2016 REASON FOR NEUROLOGY EVALUATION: Possible normal pressure hydrocephalus, evaluate gait before and after high volume lumbar puncture, and cognitive testing. 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 He is accompanied by his and daughter, who provides additional history. I saw Judge Rutledge for initial consultation in clinic on October 13, 2016, the MDM / Assessment / Plan from that visit is shown for reference: MEDICAL DECISION MAKING?? 10/13/2016 : 1. 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 Duration inconsistent with Meniere's disease and he has not change in his baseline tinnitus or hearing loss withthe spells.? Exam showed possible CN (right) palsy vs esotropia on brief Camacho dheeraj screening.? 2. The findings on imaging that suggest hydrocephalus warrant diagnostic spinal tap, both to evaluate for improvement in gait and for secondary causes of NPH.?? There is no mass in the cerebral aqueduct or other suggestion of obstructive hydrocephalus. ?? 3. His gait impairment is multifactorial.?? There may be a component of wide- based ataxia due to NPH, though he has absent vibration sense (which can be normal in someone 81 years of age), and also on the ddx are?? posterior column disorder such as B12 deficiency, treponema, and vitamin E deficiency.?? Heavy metal toxicity is unlikely, though if other testing is unrevealing will obtain 24 hour urine.?? Large fiber neuropathy is a consideration (small fiber modalities preserved), and late effects of spinal stenosis are a consideration. ?? 4. The plan, and assessment in laymen's terms as provided to the patient is shown below.?? ASSESSMENT 10/13/2016 : ?? Three issues to sort out:?? 1) Spells of double vision & dizziness?? 2)the finding of brain MRI of possible normal pressure hydrocephalus?? 3) Gait disturbance, unsteady on one's feet and somewhat wide based (feet maintained at wider spacing while walking to sustain balance) ?? Spells - such sudden onset and resolution warrants evaluation of possible transient ischemic attack (TIA) or stroke that reversed itself.?? Depending on completion of that workup, we may move on to evaluation for seizure. ?? Possible?? normal pressure hydrocephalus:?? Upon further review of the imaging, your exam and symptoms, you do not need MRIs of the spine.?? Evaluation of gait before and after a high volume removalof cerebrospinal fluid?? Is warranted, and testing of the CSF for various causes of?? normal pressure hydrocephalus. ? Gait disturbance:?? Could be part of the triad of symptoms of?? normal pressure hydrocephalus which include a wide based gait (usually feeling stuck to the floor), urinary incontinence (cannot assess this), and cognitive impairment / memory loss.?? The gait is often the first thing to change. ?? Other observations - absent reflexes in the legs and poor vibration sense in the feet - also may affect gait.?? This may be from history of lumbar spinal stenosis, for which you had the operation onyour anniversary in 2016.?? It could also be from a large fiber neuropathy which is less urgent toinvestigate than the?? normal pressure hydrocephalus and probable TIA.?? First step is some blood testing.?? PLAN, 10/13/2016 : ?? Testing you will need: ?? Blood testing - fasting 12 hours, and to be done at [facility] on the same day as the spinal tap.??Please advise nursing that all the blood tests ordered 10/13/2016 and 10/14/2016 needs to be drawn before the spinal tap. ?? See information below about preparing for the spinal tap.?? Get really well hydrated the three days before the tap, do not take aspirin the 3 days before, you will need a subway train driver, and bedrest recommended for 24 hours after [...] an appointment with me in a month ? DIAGNOSIS CODES: 1.?? Hydrocephalus, acquired ?? 2.?? Gait disorder ?? 3.?? Vibration sensory loss ?? 4.?? Abnormal reflexes of lower extremity ?? 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 Orders Placed This Encounter? Cytology, Non-Shearing Machine Tender (Fluids, Urine, Sputum)? CSF Glucose? Flow Cytometry? First CSF Cell Count & Diff? Other - Lab? First CSF Cell Count & Diff? Vitamin B12 Only? Methylmalonic Acid Quant? Homocysteine? Igg, Serum? Vitamin E, Serum, (12HR Fast Recommended)? Anti SS-A (Ro)? Anti SS-B (La)? Lipid Panel and Direct LDL(If Needed)? FL Lumbar Puncture (For CSF)? MR Angio Head WO IV Cont? MR Angio Neck W/WO IV Cont? Spinal Fluid Culture & Smear? Borrelia Burgdorferi Antibody CSF? Lyme Antibody, and Western Blot If Needed)? Spinal Fluid Culture & Smear? VDRL CSF? TB Gold, Quantiferon? Treponema Screen? INTERVAL HISTORY 10/28/2016: I met with him in Same Day Surgery pre-op before the spinal tap. No significant change since I saw him in clinic about 2 weeks ago. He has some days where his gait is more stable, other days he feels more wobbly with difficulty starting. He describes having difficulty initating steps, especially to goup or down a few steps when he barbecuing. He straight caths regularly so we will not be able to useurinary incontinence as a marker for NPH. 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 His and daughter state he continues to be very cognitively sharp. His , daughter Alanis, and son George provided history on his cognitive status. He has sustained no changes and continues to be very punctual, keeps his own detailed calendar. No changes in personalhygeine. He has no word finding difficulties and fills in the word when family members cannot come up with something. 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 He plays the card game 500, recalls all scores of all the tricks, plays very well strategically. Continues to play bridge and his skills have not changed whatsoever. He speaks very eloquently and cogently when discussing politics, legal issues, current affairs with his family. No change in driving, his is with him in the car frequently. His ability to read and write are unchanged and superior. Neuro ROS: Except as previously noted and known chronic symptoms, is negative for new or changed cognitive issues, speech or language difficulties, visual changes, hearing changes, difficulty chewing or swallowing, weakness, numbness / tingling / sensory changes, incoordination, abnormal movements, orgait changes. Review of Systems: . Except as previously noted, is negative for constitutional, eye, ENT / oropharyngeal, respiratory , cardiovascular, gastrointestinal, genitourinary, musculoskeletal, hematologic / lymphatic,allergic / immuneologic, integumentary, psychiatric, or other neurological complaints. In-Patient Medications as of 10/14/2016 No current facility-administered medications for this encounter. Allergies: Allergies Allergen Reactions ??? Excedrin Extra Strength [Dchcevv-Wvlpftgcwkvvt-[id number]] Anaphylaxis ??? Banana Other, see comments Throat swelling, wheezing Also avoids melons, For ease of readability, Active Problem List, Past Medical History, Past Surgical History, Family History, and Social History are shown at the end of this document PHYSICAL EXAMINATION: Vital signs: BP 123/72 mmHg Pulse 75 Temp(Src) 97.9 ??F (36.6 ??C) (Temporal Artery) Resp 16 Ht 5' 9 (1.753 m) Wt 105.688 kg (233 lb) BMI 34.39 kg/m2 SpO2 96% General: Well developed, well nourished, and in no acute distress, Presents in a hospital gown. Head and face: Head is normocephalic and atraumatic. Please see neurologic exam also. Eyes: Sclerae are anicteric. Conjunctivae are mildly injected. Ears, nose, mouth, and throat: Anatomically unremarkable. Neck: Supple. Respiratory: Breathing is nonlabored, speaks easily in complete sentences. No use of accessory muscles, no tachypnea. Skin: No rashes or unusual lesions are noted. Musculoskeletal and extremities: No bony or joint abnormalities are seen. Psychiatric: Mood is euthymic. Affect is mood congruent. Thought processes are logical and presentedin a rational manner. NEUROLOGIC EXAMINATION: ?? Mental status and higher cortical: Alert and follows multi-step requests with ease. Speech is fluent and with appropriate content. The patient provides a cogent history. Formal testing not believed to be contributory in light of poor sensitivity and history provided by patient and family indicatingfar superior functioning. Cranial nerves: Gaze conjugate, face symmetric, no dysarthria. Motor: Moves all extremities equally . Ambulatory and weight bearing. See gait exam below. Cerebellar and movement: Moves somewhat slowly. No adevntitious movements at rest or with action. Station and gait: ?? Before spinal tap: Arises from chair slowly with pushing off. Mildly unsteady gait with forward leaning posture. Base is about 3 to 4 inches at the heels. 50 feet round trip Timed gait trials were 16.0, 16.3, and 16.4 seconds with turns in 3 steps and hesitation in initiating gait upon the turn. ' After spinal tap: 15.41, 16.0 with turns much more smooth and rapid. He had to be cautioned not to walk too quickly as there was general concern for balance. Attempted heel - toe walking after the tap, and he was much more steady, feet about 1 inch apart laterally, with SBA x 2. [id number] MEDICAL DECISION MAKING, ASSESSMENT, and PLAN 10/28/2016 : Medical decision making: Zaid has ventriculomegaly suspicious for normal pressure hydrocephalus, though no concerns by his family with regard to cognition. His gait was mildly improved with high volumespinal tap. Extended discussion with patient and family regarding normal pressure hydrocephalus, test ing, expectations of high volume spinal tap, and especially regarding cognitive functioning. I have no concerns about his cognitive functioning; his family is very attuned to his baseline skills and noconcerns are present. Assessment and plan by diagnosis: NPH - advised patient and his family what to watch for in terms of gait and balance. Will communicate test results of CSF when available. Advised patient of bedrest, laying flat, hydrating well, 24 hours with head same level as l-spine. A followup visit has already been scheduled for about a month from now. Thank you for involving me in the care of Zaid Rutledge, if I may be of further service please call or page me. Lianne Feldman MD Neurologist Medical Specialties, [facility] phone [phone] vvvvvvvvvvvvvvvvvvvvvvvvvvvvvvvv History Patient Active Problem List Diagnosis ??? SPINAL STENOSIS, LUMBAR REGION, WITHOUT NEUROGENIC CLAUDICATION ??? LUMBAGO ??? NEURALGIA, NEURITIS, AND RADICULITIS, UNSPECIFIED ??? Allergic rhinitis ??? DROWNING AND NONFATAL SUBMERSION ??? BLADDER NECK OBSTRUCTION ??? PRIMARY LOCALIZED OSTEOARTHROSIS, OTHER SPECIFIED SITES ??? IRRITABLE BOWEL SYNDROME ??? Asthma (HRC) ??? ESOPHAGEAL REFLUX ??? ELEVATED PROSTATE SPECIFIC ANTIGEN (PSA) ??? Primary prostate adenocarcinoma (HRC) ??? PROSTATE CANCER ??? POLYP OF NASAL CAVITY ??? NEURAL HEARING LOSS, BILATERAL ??? Dysphagia ??? GOUT ??? Glaucoma ??? Orchitis and epididymitis ??? GERD (gastroesophageal reflux disease) ??? Dizziness ??? Abnormal urinalysis ??? Dilated aortic root (HRC) ??? Essential hypertension (HRC) ??? Macular degeneration Past Medical History Diagnosis Date ??? Other ill-defined and unknown causes of [...] of NEAR DROWNING/NONFATAL SUBMERSION-SALT WATER/MULT. INJU* ??? Asthma ??? Gout ??? Allergic rhinitis ??? Hearing loss ??? GERD (gastroesophageal reflux disease) ??? Glaucoma ??? 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 Cataracts, bilateral ??? Low back pain (HRC) ??? Chest wall pain ??? Spinal stenosis ??? Lumbago (HRC) ??? Bladder neck obstruction ??? Osteoarthrosis ??? IBS (irritable bowel syndrome) ??? Esophageal reflux ??? Elevated PSA ??? Polyp of nasal cavity ??? Neural hearing loss, bilateral ??? Dysphagia ??? Orchitis and epididymitis ??? GERD (gastroesophageal reflux disease) ??? Essential hypertension (HRC) 10/06/2016 Past Surgical History Procedure Laterality Date ??? Surgical procedure prev. benign pros bx by Ruby. ??? Surgical procedure prev. benign pros bx x 2 by Ruby. Last time 12/13. ??? Surgical procedure prev. benign pros bx x 2 by Ruby. Last time 12/13. ??? 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 Turp ??? Lumbar laminectomy '02 L-4 and L-5 ??? Cataract removal bilateral ??? Shoulder arthroscopy Right 08 rotator cuff. ??? Left tka ??? 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 L3-4, l4-5 lateral recess decompression (leftl3-4, l4-5 lateral recess decompression (left 10/29/2015 Family History Problem Relation Age of Onset ??? Genetic Disorder Other see list;no known [...] Hx of HX, FAMILY, CARDIOVASCULAR * ??? Cancer, Colon Father ??? Cancer, Prostate Father ??? Cancer, Lung Mother Social History Social History ??? Marital Status: Spouse Name: N/A ??? Number of Children: N/A ??? Years of Education: N/A Occupational History ??? Not on file. Social History Main Topics ??? Smoking status: Former Smoker Quit date: 12/24/1997 ??? Smokeless tobacco: Never Used ??? Alcohol Use: 4.2 oz/week 7 Standard drinks or equivalent per week Comment: moderate ??? Drug Use: No ??? Sexual Activity: Not on file Other Topics Concern ??? Exercise Yes min. ??? 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 MD Lianne Rueda MD, Neurologist, 10/14/2016 documented in this encounter Plan of Treatment Not on filedocumented as of this encounter Procedures Procedure Name Priority Date/Time Associated Diagnosis Comme nts RADIOLOGY PROCEDURE 10/28/2016 4:56 PM CDT Diagnosis u nknown documented in this encounter Visit Diagnoses Diagnosis Diagnosis unknown Other unknown and unspecified cause of m orbidity or mortality documented in this encounter Care Teams Ice Cream Freezer Relationship Specialty Start Date End Date Morgan Bass DO PCP - General Family Practice 10/02/16 10/25/17 [address] [place] [address] documented as of this encounter
--- OUTSIDE RECORDS SUMMARY | 2022-02-24 12:23 | XMS_ITS | Encounter Summary ---
:1935 Author Organization [facility] Address [address] [place] [address] Care Team Providers Name Role Phone Morgan Bass DO Primary Care Provider [phone] Reason for Visit Procedure/Equipment (Routine) - Closed Specialty Diagnoses / Procedures Referred By Contact Refer red To Contact Radiology [facility] Diagnoses Vertebrobasilar artery syndrome Linane Feldman MD [facility] Radiology Procedures MR Angio Neck W/WO IV Cont [address] [place] [address] [place] [address] Referral ID Status Reason Start Date Expiration Date Visits Requ ested Visits Authorized [id number] Closed 10/14/2016 01/13/2018 1 1 Encounter Details Date Type Department Care Team Description 10/28/2016 Imaging [facility] Lianne Feldman Verteb robasilar artery Radiology MRI MD syndrome [address] [place] [address] [address] [place] [address] [address] [phone] [place] [address] Social History Tobacco Use Types Packs/Day Years [...] Priority Date/Time Associated Diagnosis Comme nts MR ANGIO NECK W/WO Routine 10/28/2016 9:43 AM Vertebrobasilar artery Results for this IV CONT CDT syndrome procedure are i n the results section. documented in this encounter Results MR Angio Neck W/WO IV Cont (10/28/2016 9:43 AM CDT) Anatomical Region Laterality Modality Neck, Vascular, C-Spine, Skeletal Magnet ic Resonance Specimen (Source) Anatomical Collection Method Collection Time Re ceived Time Location / / Volume Laterality 10/28/2016 9:43 AM CDT Narrative 10/28/2016 3:26 PM CDT [facility] 1. HEAD MRA WITHOUT IV CONTRAST 2. NECK MRA WITHOUT AND WITH IV CONTRAST 10/28/2016 9:35 AM INDICATION: 3 spells of dizziness with d ipplopia, worrisome for TIA especially posterior circulation TECHNIQUE: 1. 3D [id number]-dh-pameia head MRA without in travenous contrast. 2. Neck MRA without and with IV contrast . CONTRAST: 10 mL of Gadavist COMPARISON: Brain MRI 10/08/2016 FINDINGS: HEAD MRA: Slightly more dominant left ve rtebral artery. The basilar artery and the proximal bilateral posterior cer ebral arteries are patent without hemodynamically significant stenosis. Th ere is short segment moderate to high-grade narrowing of the P2-P3 juncti on the left posterior cerebral artery. However the left posterior cereb ral artery is patent distal to this area without hemodynamically significan t stenosis. The distal extracranial internal carotid arteries are patent wi thout hemodynamically significant stenosis. The anterior cerebral arteries are patent without hemodynamically significant stenosis. The left middle c erebral artery is patent without hemodynamically significant stenosis. Th e right middle cerebral artery is patent without hemodynamically significa nt stenosis. No intracranial aneurysms. NECK MRA: RIGHT CAROTID: No measurable stenosis in the right ICA based on NASCET criteria. The origin of the right common carotid from the brachiocephalic artery is not well imaged. LEFT CAROTID: No measurable stenosis in the left ICA based on NASCET criteria. VERTEBRAL ARTERIES: Slightly more domina nt left vertebral artery. The origins of the vertebral arteries are no t well imaged. There might be some mild to moderate narrowing of the origin s of the vertebral arteries. Otherwise the vertebral arteries are pat ent throughout their course in the neck. AORTIC ARCH: Classic aortic arch anatomy with no significant stenosis at the origin of the great vessels. CONCLUSION: HEAD MRA: 1. ??There is short segment moderate to high-grade narrowing of the P2-P3 junction the left posterior cerebral art vickie. However the left posterior cerebral artery is patent distal to this area without hemodynamically significant stenosis. 2. 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 No intracranial aneurysms. NECK MRA: 1. ??No significant stenosis of the inte rnal carotid arteries bilaterally based on NASCET criteria. 2. ??The origins of the vertebral arteri es are not well imaged. There might be some mild to moderate narrowing of th e origins of the vertebral arteries. Otherwise the vertebral arteri es are patent throughout their course in the neck. 3. ??No evidence for dissection or pseud oaneurysm. 4. ??The origin of the right common calderon tid from the brachiocephalic artery is not well imaged. Procedure Note Maria Victoria Morales MD - 10/28/2016For matting of this note might be different from the original. [facility] 1. HEAD MRA WITHOUT IV CONTRAST 2. NECK MRA WITHOUT AND WITH IV CONTRAST 10/28/2016 9:35 AM INDICATION: 3 spells of dizziness with d ipplopia, worrisome for TIA especially posterior circulation TECHNIQUE: 1. 3D [id number]-yn-ylfgvf head MRA without in travenous contrast. 2. Neck MRA without and with IV contrast . CONTRAST: 10 mL of Gadavist COMPARISON: Brain MRI 10/08/2016 FINDINGS: HEAD MRA: Slightly more dominant left ve rtebral artery. The basilar artery and the proximal bilateral posterior cer ebral arteries are patent without hemodynamically significant stenosis. Th ere is short segment moderate to high-grade narrowing of the P2-P3 juncti on the left posterior cerebral artery. However the left posterior cereb ral artery is patent distal to this area without hemodynamically significan t stenosis. The distal extracranial internal carotid arteries are patent wi thout hemodynamically significant stenosis. The anterior cerebral arteries are patent without hemodynamically significant stenosis. The left middle c erebral artery is patent without hemodynamically significant stenosis. Th e right middle cerebral artery is patent without hemodynamically significa nt stenosis. No intracranial aneurysms. NECK MRA: RIGHT CAROTID: No measurable stenosis in the right ICA based on NASCET criteria. The origin of the right common carotid from the brachiocephalic artery is not well imaged. LEFT CAROTID: No measurable stenosis in the left ICA based on NASCET criteria. VERTEBRAL ARTERIES: Slightly more domina nt left vertebral artery. The origins of the vertebral arteries are no t well imaged. There might be some mild to moderate narrowing of the origin s of the vertebral arteries. Otherwise the vertebral arteries are pat ent throughout their course in the neck. AORTIC ARCH: Classic aortic arch anatomy with no significant stenosis at the origin of the great vessels. CONCLUSION: HEAD MRA: 1. There is short segment moderate to hi gh-grade narrowing of the P2-P3 junction the left posterior cerebral art vickie. However the left posterior cerebral artery is patent distal to this area without hemodynamically significant stenosis. 2. High-grade stenosis or occlusion of t he rest of the major intracranial arteries. No intracranial aneurysms. NECK MRA: 1. No significant stenosis of the architect internship al carotid arteries bilaterally based on NASCET criteria. 2. The origins of the vertebral arteries are not well imaged. There might be some mild to moderate narrowing of th e origins of the vertebral arteries. Otherwise the vertebral arteri es are patent throughout their course in the neck. 3. No evidence for dissection or pseudoa neurysm. 4. The origin of the right common caroti d from the brachiocephalic artery is not well imaged. Lianne Feldman MD RAD MRI documented in this encounter Visit Diagnoses Diagnosis Vertebrobasilar artery syndrome documented in this encounter Administered Medications Inactive Administered Medications - up to 3 most recent administrations Medication Order MAR Action Action Date Dose Rate Site gadobutrol (GADAVIST) 1 MMOL/ML Given 10/28/2016 9:52 AM CDT 10 mL injection 10 mL 10 mL, Intravenous, ONCE (NON-SCHEDULED), Starting on Thu10/28/16 at 0951, Until Thu10/28/16 at 0952, For 1 dose documented in this encounter Care Teams Placement Interviewer Relationship Specialty Start Date End Date Morgan Bass DO PCP - General Family Practice 10/02/16 10/25/17 [address] [place] [place] [address] documented as of this encounter
--- OUTSIDE RECORDS SUMMARY | 2022-02-24 12:23 | XMS_ITS | Encounter Summary ---
:1935 Author Organization [facility] Address [address] [place] [address] Care Team Providers Name Role Phone Bass Morgan Rose Primary Care Provider [phone] Reason for Visit Reason Comments Tick Bite/Removal left side of abdomen x 3 day s ago; area is still red and sore DIARRHEA x 1 day HEADACHE x 1 day Encounter Details Date Type Department Care Team Description 11/09/2016 Office Visit [facility] Tick b ite of abdominal wall, initial encounter (Primary Dx); [facility] Headache, unspecified headac he type; [address] Diarrhea, unspecified type [place] [id number] Social History Tobacco Use Types Packs/Day [...] Sign Reading Time Taken Comments Blood Pressure 125/72 11/09/2016 11:50 AM CDT Pulse 78 11/09/2016 11:50 AM CDT Temperature 36.6 ??C (97.9 ??F) 11/09/2016 11:50 AM CDT Respiratory Rate 16 11/09/2016 11:50 AM CDT Oxygen Saturation 95% 11/09/2016 11:50 AM CDT Inhaled Oxygen Concentration - - Weight 105.7 kg (233 lb) 11/09/2016 11:50 AM CDT Height - - Body Mass Index 34.41 10/24/2016 2:07 PM CDT documented in this encounter Patient Instructions Patient InstructionsPia Ruiz PA-C - 11/09/2016 11:55 AM CDT If get worse or not much by end of end, recheck with primary care doctor. documented in this encounter Progress Notes Pia Ruiz PA-C - 11/09/2016 11:55 AM CDT Chief Complaint Patient presents with ??? Tick Bite/Removal left side of abdomen x 3 days ago; area is still red and sore ??? DIARRHEA x 1 day ??? HEADACHE x 1 day Zaid Rutledge is a 81 y.o. old male with headache and diarrhea. These are not particularly unusually symptoms for him, but he recently removed a deer tick from left side of abdomen and now is wondering if the symptoms are due to Lyme. Tick likely obtained on the , it was removed about 24-36 hours later. He brings the tick in with him, it is an adult deer tick. Allergies Allergen Reactions ??? Excedrin Extra Strength [Pfxaddb-Cyvyypzbstjzt-Tyyffjio] Anaphylaxis ??? Banana Other, see comments Throat swelling, wheezing Also avoids melons, has a current medication list which includes the following prescription(s): acetaminophen, advair hfa, albuterol sulfate hfa, allopurinol, aspirin, dorzolamide, dorzolamide-timolol, doxycycline monohydrate, fluticasone, lisinopril, montelukast, multiple vitamins-minerals, and omeprazole. Objective Blood pressure 125/72, pulse 78, temperature 97.9 ??F (36.6 ??C), temperature source Oral, resp. rate 16, weight 233 lb (105.7 kg), SpO2 95 %. General - WDWN, NAD. Head - NCAT Eyes - pupils equal and round Skin - left lower abdomen, 3mm are of erythema consistent with tick bite and removal Psych - A&O, nl mood and affect Assessment and Plan ICD-10-CM 1. Tick bite of abdominal wall, initial encounter S30.861A doxycycline monohydrate (ADOXA) 100 MG tablet W57.XXXA 2. Headache, unspecified headache type R51 3. Diarrhea, unspecified type R19.7 he is here in time to benefit from the prophylactic dose of doxy. As far as the ANN and diarrhea goes, will have to watch and wait for now. VSS. Patient voiced understanding and agreement with plan. Pia Ruiz PA-C 11/09/2016, 12:37 PM documented in this encounter Nursing Notes Adenike Strong CMA - 11/09/2016 11:55 AM CDT Chief Complaint Patient presents with ??? Tick Bite/Removal left side of abdomen x 3 days ago; area is still red and sore ??? DIARRHEA x 1 day ??? HEADACHE x 1 day Adenike Strong CMA documented in this encounter Plan of Treatment Not on filedocumented as of this encounter Visit Diagnoses Diagnosis Tick bite of abdominal wall, initial enc ounter - Primary Headache, unspecified headache type Diarrhea, unspecified type documented in this encounter Care Teams Academic Intern Relationship Specialty Start Date End Date Morgan Bass DO PCP - General Family Practice 10/02/16 10/25/17 [address] [place] [address] documented as of this encounter
--- OUTSIDE RECORDS SUMMARY | 2022-02-24 12:23 | XMS_ITS | Encounter Summary ---
:1935 Author Organization [facility] Address [address], [place] [address] Care Team Providers Name Role Phone Morgan Bass Primary Care Provider Reason for Visit Reason Comments RESULTS, TEST go over mra's and lp Encounter Details Date Type Department Care Team Description 11/26/[address] [facility] Lianne Feldman sis of intracranial vessel (Primary Dx); Beatriz Neurology MD Michaela Vertebrobasilar artery syndrome; [address] Acquired cerebral ventriculo megaly [place], [place] [address] [address] [place], [place] [phone] [id number] Social History Tobacco Use Types Packs/Day Years [...] Sign Reading Time Taken Comments Blood Pressure 120/66 11/26/2016 2:13 PM CDT Pulse 73 11/26/2016 2:13 PM CDT Temperature - - Respiratory Rate - - Oxygen Saturation - - Inhaled Oxygen Concentration - - Weight 105.4 kg (232 lb 6.4 oz) 11/26/2016 2:13 PM CDT Height - - Body Mass Index 34.32 10/24/2016 2:07 PM CDT documented in this encounter Patient Instructions Patient InstructionsLianne Feldman MD - 11/26/2016 2:00 PM CDT Images from the original note were not included. Medical decision making, assessment, and plan for Neurology clinic visit, 11/26/2016, with Lianne Feldman MD Please note this was either typed by me or created with voice recognition software so I could give you a much more complete summary of today's visit. This software is not perfect, sometimes words get substituted. Medical decision making, assessment, and plan for Neurology clinic visit, 11/26/2016, with Lianne Feldman MD Please note this was either typed by me or created with voice recognition software so I could give you a much more complete summary of today's visit. This software is not perfect, sometimes words get substituted. ?? ASSESSMENT 11/26/2016 : ?? Not much change [...] with me about 4 to 5 months. Best wishes for your health and wellbeing, Lianne Feldman MD, Neurologist, 11/26/2016 IMPORTANT information regarding test results and between-visit communication: My practice style - when you see me for a visit, you are served by a whole team. I work very closelywith nursing staff, they are an extremely important part of your neuro team. My style is to spend a lot of time in person with my patients in each appointment, which may differ from other doctors. Mostof your neurological management is done during appointments. I also spend lots of time studying yourneurological issues, reading your chart, looking at imaging and other tests, then putting your neurological issues in the context of your whole personhood. This leaves much less time for me personally to return phone calls, e-mails, or send out non-critical test results. That's where the teamwork comes in. When you call you will almost always talk to a nurse If you need to contact us between visits, please do so via on-line services e-mail or call [phone]. Please be patient if you do not hear from us in a in a day or two, we'll do our best to get back to you based on medical urgency. Complex or critical testing deserve a face [...] if at all possible. Otherwise please call [phone] for an appointment. ?? Due to high [...] community. Medications - Our pharmacies, both the [facility] here at [facility] and [facility] are great places to get your meds. They are friendly, helpful, and really a great part of our community. vvvvvvvvvvvvvvvvvvvvvvvvvvvvvv Best wishes for your health and wellbeing, Lianne Feldman MD, Neurologist, 11/26/2016 IMPORTANT information regarding test results and between-visit communication: My practice style - when you see me for a visit, you are served by a whole team. I work very closelywith nursing staff, they are an extremely important part of your neuro team. My style is to spend a lot of time in person with my patients in each appointment, which may differ from other doctors. Mostof your neurological management is done during appointments. I also spend lots of time studying yourneurological issues, reading your chart, looking at imaging and other tests, then putting your neurological issues in the context of your whole personhood. This leaves much less time for me personally to return phone calls, e-mails, or send out non-critical test results. That's where the teamwork comes in. When you call you will almost always talk to a nurse If you need to contact us between visits, please do so via on-line services e-mail or call [phone]. Please be patient if you do not hear from us in a in a day or two, we'll do our best to get back to you based on medical urgency. Complex or critical testing deserve a face [...] if at all possible. Otherwise please call [phone] for an appointment. ?? Due to high [...] community. Medications - Our pharmacies, both the [facility] here at [facility] and [facility] are great places to get your meds. They are friendly, helpful, and really a great part of our community. vvvvvvvvvvvvvvvvvvvvvvvvvvvvvv The Mediterranean Diet: After Your Visit Your Care Instructions The Mediterranean diet features foods eaten in [place], [place], southern [place] and [place], and other countries that border the Mediterranean Sea. It emphasizes eating a diet rich in fruits, vegetables, and high-fiber grains, and limits meat, cheese, and sweets. The Mediterranean diet may: ?? Prevent heart disease and lower the risk of a second heart attack. ?? Lower cholesterol. ?? Prevent type 2 diabetes. ?? Prevent Alzheimer's disease and other dementia. ?? Prevent depression. ?? Prevent Parkinson's disease. The Mediterranean diet contains more fat than other heart-healthy diets. But the fats are mainly from unsaturated oils, such as fish oils, olive oil, and certain nut or seed oils (such as canola, soybean, or flaxseed oil). These types of oils may help protect the heart. Follow-up care is a gonzales part of your treatment and safety. Be sure to make and go to all appointments, and call your doctor if you are having problems. It's also a good idea to know your test results and keep a list of the medicines you take. How can you care for yourself at home? What to eat ?? Eat a variety of fruits and vegetables each day, such as grapes, blueberries, tomatoes, broccoli,peppers, figs, olives, spinach, eggplant, beans, lentils, and chickpeas. ?? Eat a variety of whole-grain foods each day, such as oats, brown rice, and whole wheat bread, pasta, and couscous. ?? Eat fish at least 2 times a week. Try tuna, salmon, mackerel, connors trout, mariano, or sardines. ?? Eat moderate amounts of low-fat dairy products each day or weekly, such as milk, cheese, or yogurt. ?? Eat moderate amounts of poultry and eggs every 2 days or weekly. ?? Choose healthy (unsaturated) fats, such as olive oil and certain nut or seed oils like canola, soybean, and flaxseed. ?? Limit unhealthy (saturated) fats, such as butter, palm oil, and coconut oil. And limit fats foundin animal products, such as meat and dairy products made with whole milk. Try to eat red meat only afew times a month in very small amounts. ?? Limit sweets and desserts to only a few times a week. This includes sugar- sweetened drinks like soda. The Mediterranean diet may also include red wine with your meal--1 glass each day for women and up to 2 glasses a day for men. Tips for changing your diet ?? Dip bread in a mix of olive oil and fresh herbs instead of using butter. ?? Add avocado slices to your sandwich instead of herring. ?? Have fish for lunch or dinner instead of red meat. Lyle the fish with olive oil, and broil or grill it. ?? Sprinkle your salad with seeds or nuts instead of cheese. ?? Cook with olive or canola oil instead of butter or oils that are high in saturated fat. ?? Switch from 2% milk or whole milk to 1% or fat-free milk. ?? Dip raw vegetables in a vinaigrette dressing or hummus instead of dips made from mayonnaise or sour cream. ?? Have a piece of fruit for dessert instead of a piece of cake. Try baked apples, or have some dried fruit. Part of the Mediterranean diet is being active. Get at least 30 minutes of exercise on most days of the week. Walking is a good choice. You also may want to do other activities, such as running, swimming, cycling, or playing tennis or team sports. Where can you learn more? Go to mmCHANNEL/Admeld and enter O407 in the search box. Last Revised: March 14, 2011 ?? [id number] [employer], [employer]. documented in this encounter Progress Notes Lianne Feldman MD - 11/26/2016 2:00 PM CDT NEUROLOGY FOLLOW-UP VISIT 11/26/2016 PATIENT: Zaid Kemp Background Please note this document was either typed by me or prepared with voice recognition software which may result in multiple types of errors. Please contact me if clarification is needed. [phone]. Today's visit is with neurologist Lianne Feldman MD, [facility] Primary care doctor: Morgan Bass DO Cc: - Zaid Kemp is a 81 y.o. old male who returns today for neurological followup. 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 He was seen for initial consultation October 13, and there was suspicion for possiblenormal pressure hydrocephalus, so underwent high volume spinal tap October 28. For continuity, the Medical Decision Making, Assessment, and Plan from his initial neurology visit is shown below: MEDICAL DECISION MAKING 10/13/2016 : ?? Judge Kemp experienced 3 spells, all very similar, of diplopia, spinning / vertiginous sensation, and headache, differential diagnosis for which is TIA, seizure, vertiginous migraine. Duration inconsistent with Meniere's disease and he has not change in his baseline tinnitus or hearing loss with the spells. Exam showed possible CN (right) palsy vs esotropia on brief Camacho dheeraj screening. ?? The findings on imaging that suggest hydrocephalus warrant diagnostic spinal tap, both to evaluate for improvement in gait and for secondary causes of NPH. There is no mass in the cerebral aqueduct or other suggestion of obstructive hydrocephalus. ?? His gait impairment is multifactorial. There may be a component of wide-based ataxia due to NPH, though he has absent vibration sense (which can be normal in someone 81 years of age), and also on the ddx are posterior column disorder such as B12 deficiency, treponema, and vitamin E deficiency. Heavy metal toxicity is unlikely, though if other testing is unrevealing will obtain 24 hour urine. Largefiber neuropathy is a consideration (small fiber modalities preserved), and late effects of spinal stenosis are a consideration. ?? The plan, and assessment in laymen's terms as provided to the patient is shown below. ASSESSMENT 10/13/2016 : ?? Three issues to sort out: 1) Spells of double vision & dizziness 2)the finding of brain MRI of possible normal pressure hydrocephalus 3) Gait disturbance, unsteady on one's feet and somewhat wide based (feet maintained at wider spacing while walking to sustain balance) ?? Spells - such sudden onset and resolution warrants evaluation of possible transient ischemic attack (TIA) or stroke that reversed itself. Depending on completion of that workup, we may move on to evaluation for seizure. ?? Possible normal pressure hydrocephalus: Upon further review of the imaging, your exam and symptoms, you do not need MRIs of the spine. Evaluation of gait before and after a high volume removal of cerebrospinal fluid Is warranted, and testing of the CSF for various causes of normal pressure hydrocephalus. ?? Gait disturbance: Could be part of the triad of symptoms of normal pressure hydrocephalus which include a wide based gait (usually feeling stuck to the floor), urinary incontinence (cannot assess this), and cognitive impairment / memory loss. The gait is often the first thing to change. ?? Other observations - absent reflexes in the legs and poor vibration sense in the feet - also may affect gait. This may be from history of lumbar spinal stenosis, for which you had the operation on your anniversary in 2015. It could also be from a large fiber neuropathy which is less urgent to investigate than the normal pressure hydrocephalus and probable TIA. First step is some blood testing. PLAN, 10/13/2016 : Testing you will need: ?? Blood testing - fasting 12 hours, and to be done at [facility] on the same day as the spinal tap. Please advise nursing that all the blood tests ordered 10/13/2016 and 10/14/2016 needs to be drawn before the spinal tap. ?? See information below about preparing for the spinal tap. Get really well hydrated the three daysbefore the tap, do not take aspirin the 3 days before, you will need a milk truck driver, and bedrest recommended for 24 hours after the tap to avoid nasty headache. ?? do not need MRIs of the spine ?? Do need evaluation of the arterial circulation to the head and neck. MR angiogram of the head andneck ordered as part of TIA workup. Your neurology treatment plan: ?? No specific treatment at this time. If you have another spell, I recommend calling 911 right awayin the event it is a TIA or stroke. The blood clot busting drugs for stroke can only be given in thefirst few hours after stroke symptoms, time is [...] an appointment with me in a month DIAGNOSIS CODES: 1. Hydrocephalus, acquired 2. Gait disorder 3. Vibration sensory loss 4. Abnormal reflexes of lower extremity 5. Vertebrobasilar artery syndrome Orders Placed This Encounter ??? Cytology, Non-Chemical Engineering Technologist (Fluids, Urine, Sputum) ??? CSF Glucose ??? Flow Cytometry ? ? First CSF Cell Count & Diff ??? Other - Lab ? ? First CSF Cell Count & Diff ??? Vitamin B12 Only ??? Methylmalonic Acid Quant ??? Homocysteine ??? Igg, Serum ??? Vitamin E, Serum, (12HR Fast Recommended) ??? Anti SS-A (Ro) ??? Anti SS-B (La) ??? Lipid Panel and Direct LDL(If Needed) ??? FL Lumbar Puncture (For CSF) ??? MR Angio Head WO IV Cont ??? MR Angio Neck W/WO IV Cont ? ? Spinal Fluid Culture & Smear ??? Borrelia Burgdorferi Antibody CSF ??? Lyme Antibody, and Western Blot If Needed) ? ? Spinal Fluid Culture & Smear ??? VDRL CSF ??? TB Gold, Quantiferon ??? Treponema Screen For ease of readability, the medical decision making, assessment, and plan from today's visit is shown immediately below, with details of the visit thereafter. vvvvvvvvvvvvvvvvvvvvvvvvvv MEDICAL DECISION MAKING, ASSESSMENT, & PLAN For today's visit, 11/26/2016 MEDICAL DECISION MAKING 11/26/2016 : ?? 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 Please see below for the details of today's visit. Thank you for consulting me in the care of Zaid Reynaga. Please contact me if I may be of further service. MD Lianne Rueda MD, Neurologist [facility], [facility] INTERVAL HISTORY 11/26/2016 Reviewed all tests results in detail, discussed stroke risk factors. Following up on inflammatory issues and body aches, he hqas goint pain in all joints, no rashes, no pleuritis chest pain. When he coughs his head hurts like he [...] integumentary, psychiatric, or other neurological complaints. TEST RESULTS [facility] 1. HEAD MRA WITHOUT IV CONTRAST 2. NECK MRA WITHOUT AND WITH IV CONTRAST 10/28/2016 9:35 AM INDICATION: 3 spells of dizziness with dipplopia, worrisome for TIA especially posterior circulation TECHNIQUE: 1. 3D axvo-hj-hyvzya head MRA without intravenous contrast. 2. Neck [...] cerebral artery is patent distal to this ??area without hemodynamically significant stenosis. The distal extracranial ??internal carotid arteries are patent without hemodynamically significant stenosis. The anterior cerebral arteries are patent without hemodynamically ??significant stenosis. The left middle cerebral artery is [...] MRA: 1. ??No significant stenosis of the internal carotid arteries bilaterally based on NASCET criteria. 2. ??The origins of the vertebral arteries are not well imaged. There might be some mild to moderate narrowing of the origins of the vertebral arteries. Otherwise the vertebral arteries are patent throughout their course in the neck. 3. ??No evidence for dissection or pseudoaneurysm. 4. ??The origin of the right common carotid from the brachiocephalic artery is not well imaged. ? Results for ZAID KEMP ( ) as of 11/26/2016 14:43 Ref. Range 10/28/2016 09:35 10/28/2016 09:43 10/28/2016 14:29 10/28/2016 14:30 10/28/2016 14:31 10/28/2016 14:33 10/28/2016 14:33 10/28/2016 14:35 10/28/2016 14:35 10/28/2016 14:35 10/28/2016 14:36 AFB CULTURE Unknown Rpt FUNGUS CULTURE,MISCELLANEOUS Unknown Rpt SPINAL FLUID CULTURE & SMEAR Unknown Rpt Lyme Units Unknown (NOTE) ... <0.10... LYME INTERPRETATION Unknown Negative... TREPONEMA SCREEN Unknown Non Reactive... TB Gold, Quantiferon Latest Ref Range: NEG Negative TB NIL Value Latest Units: IU/mL <0.01 TB Ag-NIL Value Latest Units: IU/mL <0.01 Mitogen-NIL Value Latest Units: IU/mL >10.00 TB Gold Interpreta. Unknown (NOTE) ... Lyme Ab Interp.,EIA Unknown (NOTE) ... 0.12... CYTOLOGY, NON-LOW RAW SUGAR CUTTER (FLUIDS, URINE, SPUTUM) Unknown Rpt FLOW CYTOMETRY Unknown Rpt Homocysteine, CV Latest Ref Range: 5.0 - 15.4 umol/L 15.0 ALT (SGPT) Latest Ref Range: 0 - 55 U/L 31 Cholesterol Latest Ref Range: 0 - 199 mg/dl 221 (H) Triglyceride Latest Ref Range: 0 - 149 mg/dl 266 (H) HDL Latest Ref Range: >40 mg/dl 30 (L) Non HDL Chol, Calc Latest Units: mg/dl 191 LDL, Calc. Latest Ref Range: 0 - 129 mg/dl 138 (H) Hours Fasting Latest Units: hours Information Not G... IgG, Serum Latest Ref Range: 540 - 1822 mg/dl 1055 Prostatic Spec Ag Latest Ref Range: 0.0 - 4.0 ng/ml 5.1 (H) Vitamin E Alpha-Tocopherol Unknown (NOTE) ... 20.0... (H) Vitamin E Gamma-Tocopherol Unknown (NOTE) ... 0.3... Methylmalonic Acid Unknown (NOTE) ... 0.14... Anti-SSA (Ro) result Latest Ref Range: 0 - 6.9 U/mL 0.3 Anti-SSA Interpreta. Unknown (NOTE) ... Anti-SSB (La) Result Latest Ref Range: 0 - 6.9 U/mL <0.3 Anti-SSB Interpreta. Unknown (NOTE) ... Vitamin B12 Latest Ref Range: 213 - 816 pg/ml 401 Description, CSF Unknown Clear Tube # Unknown TUBE 2 Xanthochromia Unknown Absent RBC, CSF Latest Units: /ul 1 Nucleated Cells, CSF Latest Ref Range: 0 - 5 /ul 0 Glucose, CSF Latest Ref Range: 40 - 70 mg/dl 53 T PALLIDUM (VDRL) CSF REFLEX Unknown (NOTE) ... Non Reactive... FL LUMBAR PUNCTURE (FOR CSF) Unknown Rpt MR ANGIO HEAD WO IV CONT Unknown Rpt MR ANGIO NECK W/WO IV CONT Unknown Rpt MEDICATIONS AND ALLERGIES Outpatient Medications Prior to Visit [...] MOUTH EVERY DAY 90 Tab 0 ??? dorzolamide (AKA TRUSOPT) 2 % eye [...] MOUTH TWICE DAILY ONE HOUR BEFORE A [id number] Cap 3 ??? aspirin 81 MG tablet Take 1 Tab by mouth daily. ??? dorzolamide-timolol (COSOPT) 22.3-6.8 MG/ML eye drop solution 11/07/2016: Received from: [facility]armacy ??? doxycycline monohydrate (ADOXA) 100 MG tablet Take two tabs po at the same time (Patient not taking: Reported on 12/01/2016) 2 Tab 0 No facility-administered medications prior to visit. Allergies Allergen Reactions ??? Excedrin Extra Strength [Oocoqcb-Ynzdntyegoyri-Nghmwhqr] Anaphylaxis ??? Banana Other, see comments Throat swelling, wheezing Also avoids melons, OTHER HISTORY Patient Active Problem List Diagnosis Date Noted ??? 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 ??? 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 MRA shows right KITCHEN DESIGNER branch stenosis. Increased ASA to 325 mg daily. F/u appt November 26, 2016. ??? Macular degeneration 10/14/2016 Overview Note: Treated at [facility], Dr. Hood ??? Essential hypertension (HRC) 10/06/2016 ??? Dilated aortic root (HRC) 01/17/2016 ??? Dizziness 01/16/2016 ??? Abnormal urinalysis 01/16/2016 ??? 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 PROSTATE CANCER 08/13/2010 ??? Primary prostate adenocarcinoma (HRC) 03/15/2010 ??? GOUT ??? Glaucoma ??? GERD (gastroesophageal reflux disease) ??? SPINAL STENOSIS, LUMBAR REGION, WITHOUT NEUROGENIC CLAUDICATION 06/01/2001 ??? NEURALGIA, NEURITIS, AND RADICULITIS, UNSPECIFIED 05/24/2001 ??? ELEVATED PROSTATE SPECIFIC ANTIGEN (PSA) 05/10/2001 ??? BLADDER NECK OBSTRUCTION 12/09/2000 ??? Dysphagia 06/20/1999 Overview Note: ICD 10 ??? LUMBAGO 02/09/1998 ??? Allergic rhinitis Overview Note: Epic ??? PRIMARY LOCALIZED OSTEOARTHROSIS, OTHER SPECIFIED SITES ??? Asthma (HRC) ??? ESOPHAGEAL REFLUX ??? POLYP OF NASAL CAVITY ??? Orchitis and epididymitis 06/15/1993 Overview Note: Epic ??? IRRITABLE BOWEL SYNDROME 07/16/1989 ??? DROWNING AND NONFATAL SUBMERSION 09/10/1988 Past Medical History: Diagnosis Date ??? 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 Time: 43 minutes face to face, or which more than 50% was counseling and coordination of care. MD Lianne Rueda MD, Neurologist End note 11/26/2016 documented in this encounter Nursing Notes Shweta Louis - 11/26/2016 2:00 PM CDT Zaid Kemp is a 81 y.o. old male here for test results. 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
--- OUTSIDE RECORDS SUMMARY | 2022-02-24 12:23 | XMS_ITS | Encounter Summary ---
:1935 Author Organization [facility] Address [address], [place] [address] Care Team Providers Name Role Phone Morgan Bass DO Primary Care Provider Reason for Visit Reason Comments Refill omeprazole Encounter Details Date Type Department Care Team Description [facility]/02[facility]es Cleary, [facility] (omeprazole) [facility] Pr anjelica MURRAY [address] [place] [address] [address] [phone] [place] [address] Social History Tobacco Use Types Packs/Day Years [...] Nursing Notes Adelaide Rehman RN - 11/02/2016 12:15 PM CDT Ordered per Refill Standing Order/Protocol. Adelaide Rehman RN 11/02/2016, 12:15 PM Interface, Out SocialGuides Query - 11/02/2016 10:42 AM CDT omeprazole (PRILOSEC) 20 MG capsule [Pharmacy Med Name: OMEPRAZOLE 20MG CAPSULES] Protocol: Gastroenterology: Antiulcer - Proton Pump Inhibitors -> Refill x 12 months (until due for an office visit) Last qualifying visit: 10/16/2016 (in FAMILY PRACTICE) Next scheduled visit: None Last ordered by RAMSES CLEARY E: 08/05/2016 (89 days ago) QTY: 180, Refills: 0, Sig: take one capsule by mouth twice daily one hour before a meal (unchanged) Age: 81 Powered by [employer], Reference: [id number], 11/02/2016 10:42:32 AM CDT, Pool: PETER JEFFERY RN ([id number]) documented in this encounter Plan of Treatment Not on filedocumented as of this encounter Visit Diagnoses Not on filedocumented in this encounter Care Teams Car Repair Supervisor Relationship Specialty Start Date End Date Morgan Bass DO PCP - General Family Practice 10/02/16 10/25/17 [address] [place] [address] documented as of this encounter
--- OUTSIDE RECORDS SUMMARY | 2022-02-24 12:23 | XMS_ITS | Encounter Summary ---
:1935 Author Organization [facility] Address [address] [address] Care Team Providers Name Role Phone Morgan Bass DO Primary Care Provider Encounter Details Date Type Department Care Team Description 11/02/2016 Refill Order [facility] Morgan Bass Family Pr anjelica Rose DO [address] [place] [address] [address] [phone] [place], [place] [id number] (Wo rk) Social History Tobacco Use Types [...] encounter Progress Notes Lorene Manley CMA - 11/06/2016 10:37 AM CDT Lab ordered per refill standing order. Lorene Manley CMA 11/06/2016, 10:38 AM documented in this encounter Nursing Notes Interface, Out Vouch Prov Query - 11/02/2016 10:42 AM CDT ORDER THE FOLLOWING: - COMPLETE BLOOD COUNT: Pended to encounter. SCHEDULE THE FOLLOWING: - COMPLETE BLOOD COUNT BY: 01/10/2017 (Coming due as of 01/10/2017 for multiple medications including allopurinol (AKA ZYLOPRIM) 100 MG tablet) - LAST QUALIFYING VISIT IN [facility]: 10/16/2016 - NEXT SCHEDULED VISIT: None - NEXT LAB APPOINTMENT: None Powered by [employer], Reference: [id number], 11/02/2016 10:42:33 AM CDT, Pool: PETER JEFFERY RN ([id number]) Interface, Out Vouch Prov Query - 11/02/2016 10:42 AM CDT The [...] neurology on Thursday as planned. Interface, Out Vouch Prov Query - 11/02/2016 10:42 AM CDT The [...] as of this encounter Results Complete Blood Count-W/Diff (12/29/2016 1:54 PM CDT) Analysis Performed At Patho logist Time Signature WBC 6.6 4.0 - [...] [facility] Lymph 34 % [facility] Faulk 10 % [facility] Eos 4 % [facility] Baso 1 % [facility] Neutrophil 3.4 1.8 - 7.7 [facility] Lymph Absolute 2.2 1.0 - 4.8 [facility] Faulk Absolute 0.7 0.1 - 0.7 [facility] [...] 12/29/2016 2:06 PM C DT Performed at [facility] [address], [address] [place] [address] Morgan Bass DO LAB_1 Performing Organization Address City/State/ZIP Code Phon e Number [facility] [phone] documented in this encounter Visit Diagnoses Diagnosis Encounter for long-term (current) use of medications - Primary Encounter for long-term (current) use of other medications Gastroesophageal reflux disease, esophag itis presence not specified - Primary Encounter for long-term (current) use of medications Encounter for long-term (current) use of other medications Essential hypertension (HRC) Unspecified essential hypertension documented in this encounter Care Teams Roving Department Supervisor Relationship Specialty Start Date End Date Morgan Bass DO PCP - General Family Practice 10/02/16 10/25/17 2017 [place], [place] [id number] documented as of this encounter
--- OUTSIDE RECORDS SUMMARY | 2022-02-24 12:23 | XMS_ITS | Encounter Summary ---
:1935 Author Organization [facility] Address [address] [address] Care Team Providers Name Role Phone Morgan Bass DO Primary Care Provider Encounter Details Date Type Department Care Team Description 10/28/2016 Hospital Encounter [facility] Kee Becerra, LAZARO [address] [address] [place] [address] [phone] (Wo rk) Social History Tobacco Use Types [...] Reading Time Taken Comments Blood Pressure 120/70 10/28/2016 3:33 PM CDT Pulse 75 10/28/2016 3:33 PM CDT Temperature 36.4 ??C (97.5 ??F) 10/28/2016 3:00 PM CDT Respiratory Rate 16 10/28/2016 3:33 PM CDT Oxygen Saturation 98% 10/28/2016 3:33 PM CDT Inhaled Oxygen Concentration - - Weight 105.7 kg (233 lb) 10/24/2016 2:07 PM CDT Height 175.3 cm (5' 9) 10/24/2016 2:07 PM CDT Body Mass Index 34.41 10/24/2016 2:07 PM CDT documented in this encounter Discharge Instructions Discharge InstructionsMicki Owen RN - 10/28/2016 2:59 PM CDT Images from the original note were not included. [facility] [phone] Emergency & Urgently Needed Care: For emergencies call 911 and/or get medical help right away. If you are a [facility] member and have medical needs after clinic hours [phone] or . Special Instruction: Activities: Rest today [...] experience and that you can definitely recommend [facility] to your family and friends. Lumbar [...] your doctor if you can take an gmyv-fzo-vgzekyi medicine. ?? If you think your pain [...] Where can you learn more? Go to [employer] and enter P586 in the search box. Current as of: February 21, 2014 Content Version: 10.4 ?? [id number] [employer]. documented in this encounter Medications at Time [...] home health clinician.] fluticasone (AKA Place [address] [place] into 0 08/03/2013 FLONASE) 50 MCG/ACT both [...] Feldman MD - 10/28/2016 12:39 PM CDT [facility], SAME DAY SURGERY, SPINAL TAP, 10/14/2016 Patient Identification: Zaid Rutledge, 1935 ENDO/Endo Pool Bed NEUROLOGIST: Lianne Feldman MD on 10/28/2016 REASON FOR NEUROLOGY EVALUATION: Possible normal pressure hydrocephalus, evaluate gait before and after high volume lumbar puncture, and cognitive testing. 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 He is accompanied by his and daughter, [...] 12 hours, and to be done at [facility] on the same day as the spinal tap.??Please advise nursing that all the blood tests ordered 10/13/2016 and 10/14/2016 needs to be drawn before the spinal tap. ?? See information below about preparing for the spinal tap.?? Get really well hydrated the three days before the tap, do not take aspirin the 3 days before, you will need a tank driver, and bedrest recommended for 24 hours [...] syndrome ? Orders Placed This Encounter? Cytology, Non-Erp Pm (Fluids, Urine, Sputum)? CSF Glucose? Flow Cytometry? [...] NPH. 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 His and daughter state he continues to [...] Allergies Allergen Reactions ??? Excedrin Extra Strength [Sikhjhz-Yuihgxzbpoiyk-Xcaidclh] Anaphylaxis ??? Banana Other, see comments Throat [...] me. 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 End note Time: 58 minutes spent in today's consultation with greater than 50% counseling and coordination of care. MD Lianne Rueda MD, Neurologist, 10/14/2016 documented in this encounter Plan of Treatment Not on filedocumented as of this encounter Procedures Procedure Name Priority Date/Time Associated Diagnosis Comme nts RADIOLOGY PROCEDURE 10/28/2016 4:56 PM CDT Diagnosis u nknown documented in this encounter Visit Diagnoses Not on filedocumented in this encounter Care Teams Head Waiter Relationship Specialty Start Date End Date Morgan Bass DO PCP - General Family Practice 10/02/16 10/25/17 [address] [place] [address] documented as of this encounter
--- OUTSIDE RECORDS SUMMARY | 2022-02-24 12:23 | XMS_ITS | Encounter Summary ---
:[address] [facility] Address [address] [address] Care Team Providers Name Role Phone No Primary/Referring, [place] Primary Care Provider Unavailable Encounter Details Date Type Department Care Team Description 10/28/2016 Scanned History [facility] SAFETY AND Imaging [facility], [address] [phone] Social History Tobacco Use Types Packs/Day Years [...] on filedocumented in this encounter Care Teams Gasoline Finisher Relationship Specialty Start Date End Date No Primary/Referring, Phy PCP - General 12/11/21 documented as of this encounter
--- OUTSIDE RECORDS SUMMARY | 2022-02-24 12:23 | XMS_ITS | Encounter Summary ---
:1935 Author Organization [facility] Address [address] [place] [address] Care Team Providers Name Role Phone Morgan Bass DO Primary Care Provider Reason for Referral Procedure/Equipment (Routine) - Closed Specialty Diagnoses / Procedures Referred By Contact Refer red To Contact Radiology [facility] Diagnoses Vertebrobasilar artery syndrome Hilaria Feldman MD Radiology Procedures MR Angio Neck W/WO IV Cont [address] [place] [address] [place] [address] Referral ID Status Reason Start Date Expiration Date Visits Requ ested Visits Authorized [id number] Closed 10/14/2016 01/13/2018 1 1 Procedure/Equipment (Routine) - Closed Specialty Diagnoses / Procedures Referred By Contact Refer red To Contact Radiology [facility] Diagnoses Vertebrobasilar artery syndrome Hilaria Feldman MD Lv Radiology Procedures MR Angio Head WO IV Cont [address] [place] [address] [place] [address] Referral ID Status Reason Start Date Expiration Date Visits Requ ested Visits Authorized [id number] Closed 10/14/2016 01/13/2018 1 1 Procedure/Equipment (Routine) - Closed Specialty Diagnoses / Procedures Referred By Contact Refer red To Contact Radiology [facility] Diagnoses Gait disorder Hydrocephalus, acquired (HRC) Hilaria Feldman MD Radiology Procedures FL Lumbar Puncture (For CSF) [address] [place] [address] [place] [address] Referral ID Status Reason Start Date Expiration Date Visits Requ ested Visits Authorized [id number] Closed 10/14/2016 01/13/2018 1 1 Reason for Visit Reason Comments DIZZINESS light headed, double vision question NPH Consult/Transfer Care (Routine) - Closed Specialty Diagnoses / Procedures Referred By Contact Refer red To Contact Diagnoses Gait instability Morgan Bass, [address] [place], [place] [address] Referral ID Status Reason Start Date Expiration Date Visits Requ ested Visits Authorized [id number] Closed 10/06/2016 01/05/2018 1 1 Encounter Details Date Type Department Care Team Description 10/13/2016 Office Visit [facility] Hilaria Feldman Bannister cephalus, acquired (Primary Dx); [facility] Neurology MD Michaela Gait disorder; [address] V[address] sensory loss; [place], [place] [address] Abnormal reflexes of lower extremity; [id number] BERTHA MICHAEL Vertebrobasilar artery syndr ome [phone] [id number] Social History Tobacco Use Types Packs/Day Years [...] Sign Reading Time Taken Comments Blood Pressure 142/80 10/13/2016 8:46 AM CDT Pulse 66 10/13/2016 8:46 AM CDT Temperature - - Respiratory Rate - - Oxygen Saturation - - Inhaled Oxygen Concentration - - Weight 106 kg (233 lb 9.6 oz) 10/13/2016 7:16 AM CDT Height - - Body Mass Index 35.26 10/06/2016 9:36 AM CDT documented in this encounter Patient Instructions Patient InstructionsHilaria Feldman MD - 10/13/2016 8:36 AM CDT ASSESSMENT 10/13/2016 : ?? Three issues to [...] 12 hours, and to be done at [facility] on the same day as the spinal tap. Please advise nursing that all the blood tests ordered 10/13/2016 and 10/14/2016 needs to be drawn before the spinal tap. ?? See information below about preparing for the spinal tap. Get really well hydrated the three daysbefore the tap, do not take aspirin the 3 days before, you will need a otr driver, and bedrest recommended for 24 hours [...] an appointment with me in a month documented in this encounter Progress Notes Hilaria Feldman MD - 10/08/2016 9:11 AM CDT OUTPATIENT NEUROLOGY CONSULTATION 10/13/2016 INTRODUCTION Patient Identification: Zaid Rutledge Date of 1935 Consultation with Hilaria Feldman MD, Neurology, [facility] hospital Reason for neurology consultation: Gait instability with ventriculomegaly disproportional to sulcal atrophy on imaging, question normal pressure hydrocephalus. Requesting provider: Morgan Bass DO Zaid Rutledge is a 81 y.o. year old, right handed male. 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 He is semiretired. He is accompanied by his , Corie, who provides additional history. History was also obtained from a review of clinic notes, blood testing, neurophysiologic and other testing, and imaging in this medical record. Outside records were reviewed as available in the Scans section. The patient's current active problem list is as follows: Patient Active Problem List Diagnosis ??? SPINAL [...] ??? Essential hypertension (HRC) ??? Macular degeneration vvvvvvvvvvvvvvvvvvvvvvvvvv MEDICAL DECISION MAKING, ASSESSMENT, AND PLAN For today's visit 10/13/2016 MEDICAL DECISION MAKING 10/13/2016 : ?? Judge Rutledge experienced 3 spells, all very [...] 12 hours, and to be done at [facility] on the same day as the spinal tap. Please advise nursing that all the blood tests ordered 10/13/2016 and 10/14/2016 needs to be drawn before the spinal tap. ?? See information below about preparing for the spinal tap. Get really well hydrated the three daysbefore the tap, do not take aspirin the 3 days before, you will need a otr driver, and bedrest recommended for 24 hours [...] syndrome Orders Placed This Encounter ??? Cytology, Non-Ingredient Specialist (Fluids, Urine, Sputum) ??? CSF Glucose ??? [...] ??? TB Gold, Quantiferon ??? Treponema Screen Please see below for the details of today's consultation. Thank you for involving me in the care of Zaid Rutledge, if I may be of further service please feel free to contact me. Hilaria Feldman MD Hilaria Feldman MD Neurologist Medical Specialties, [facility] Clinic phone [phone] HISTORY OF THE PRESENT ILLNESS General problem description, context: Seen October 02 [...] hours later. He did not call 911. Spell Jan or Feb 2016 - dizziness, nausea, difficulty focusing - called doctor, went in to , Urgent Care sent him to [facility], hospitalized overnight. Symptoms of Jan similar to last Thursday's sopell. Had eval for TIA in Jan - normal 30 day monitor. Second spell October 02, similar. He does not feel he's walking right, not as steady. Feet do no feel magnetic. Stride length is ? Notsure if smaller, just doesn't feel right, balance off. Has a cane - for back issues, took a trip [place] and used cane. Travel - [place] cruise - most of May 2016. No illnesses on trip at all. Did not eat any raw meats. Has been catheterizing every day 10 to 12 times a day, lots of pressure on system from that. Final report surveillance system monitor - Feb 2016 - normal 30 day Holter / monitor. No change in mental status. A little memory difficulty with names, but nothing that's gotten his attention. 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 He also does mediations. No change in ability to mediate for 9 or 10 hours, very stressful. Unusual to have headaches, high blood pressure unusual also. Family hx: Father had Meniere's disease. Patient does not recall change in hearing, has hearing aidsand has tinnitus at baseline. Review of Systems - Positive for occasionall diarrhea, daily self catheterization about 6 times a day due to prostate cancer. Has arthritis, allergies, hearing loss with hearing aids, baseline has tinnitus. . Except as previously noted and well established chronic conditions, ROS is otherwise negativefor constitutional, eye, ENT / oropharyngeal, respiratory , cardiovascular, gastrointestinal, genitourinary, musculoskeletal, hematologic / lymphatic,allergic / immuneologic, integumentary, psychiatric, or other neurological complaints. TEST RESULTS AND OUTSIDE RECORDS REVIEW Imaging: I personally viewed the images of the scans for which the report is shown below, my impession is: Agree, ventricles look pretty rounded, enlarged. . [facility] CT HEAD WO IV CONT 10/02/2016 11:57 AM ?? INDICATION: Double vision with gait instability. TECHNIQUE: Routine. Dose reduction techniques were used. CONTRAST: None. COMPARISON:?? None. ?? FINDINGS: No intracranial hemorrhage, extraaxial collection, mass effect or ??CT evidence of acute infarct.?? 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 Mild scattered chronic small vessel ischemic change. ?? Overall mild diffuse intraparenchymal volume loss, with ventriculomegaly ?? disproportionate to the degree of volume loss. In the appropriate clinical ?? setting, these findings can be seen in normal-pressure hydrocephalus. ?? Osseous structures are intact. Mild mucosal thickening in the ethmoid air ?? cells. Postoperative changes to the bilateral lenses. ? CONCLUSION: 1.?? Ventricular prominence greater than expected for the degree of mild ?? diffuse intraparenchymal volume loss. In the appropriate clinical setting, ?? this appearance can be seen in normal-pressure hydrocephalus. ?? 2.?? Mild scattered chronic small vessel ischemic change with a small old ?? lacunar infarct involving the left caudate head. ?? Findings and impression discussed with Dr. Bass by phone at 1240 hours on ??10/02/2016. HEAD MRI WITHOUT AND WITH IV CONTRAST 10/08/2016 9:03 AM ?? INDICATION: Gait disturbance. TECHNIQUE: Head MRI without and with intravenous contrast. CONTRAST: 10 mL Gadavist. COMPARISON: 10/02/2016 CT. ?? FINDINGS: There is disproportionate enlargement of the lateral and third ?? ventricles and crowding of the cerebral sulci over the parasagittal ?? convexities. The sylvian fissures are also prominent. There is underlying ?? mild to moderate cerebral and cerebellar volume loss. There is no ?? restricted diffusion. There is mild to moderate T2 signal change in the ?? supratentorial white matter. No intracranial mass or abnormal enhancement. ?? The major intracranial vascular flow voids are intact to the skull base. ?? The orbits, paranasal sinuses and soft tissues at the skull base are ?? grossly unremarkable. The pituitary and pineal regions are unremarkable. ?? CONCLUSION: 1.?? Disproportionate enlargement of the lateral and third ventricles as ?? well as secondary findings which in the correct clinical setting would ?? raise the possibility of a normal-pressure/communicating hydrocephalus. 2.?? Underlying mild to moderate cerebral volume loss and presumed chronic ?? small vessel ischemic changes. 3.?? No recent infarct, intracranial mass, abnormal enhancement or evidence ?? of intracranial hemorrhage. ? Neurophysiologic testing: None contributory Other diagnostic testing: None contributory Outside records review: None contri butory Laboratory testing: Component Latest Ref Rng 10/08/2016 04/18/2016 Sodium 136 - 145 mmol/L 142 Potassium 3.5 - 5.1 mmol/L 4.1 Chloride 98 - 109 mmol/L 108 CO2 20 - 29 mmol/L 23 Anion Gap (calc.) 7 - 16 mmol/L 11 Glucose 70 - 180 mg/dl 104 Calcium 8.4 - 10.2 mg/dl 9.3 BUN 7 - 26 mg/dl 18 Creatinine 0.73 - 1.18 mg/dl 1.08 GFR, Estimated >60 ml/min/1.73m2 >60 GFR, Est., If Black >60 ml/min/1.73m2 >60 Prostatic Spec Ag 0.0 - 4.0 ng/ml 6.4 (H) Component Latest Ref Rng 01/16/2016 9:07 PM Troponin I 0.00 - 0.06 ng/ml <0.02 Component Latest Ref Rng 01/16/2016 01/16/2016 01/16/2016 6:55 PM 6:28 PM 5:45 PM WBC 4.0 - 11.0 k/ul 7.6 RBC 4.5 - 5.9 M/ul 4.96 Hemoglobin 13.5 - 17.5 g/dl 15.7 HCT 41.0 - 53.0 % 46.0 MCV 80 - 100 fl 92.7 MCH 26 - 34 pg 31.7 MCHC 32 - 36 g/dl 34.1 RDW 11.5 - 14.5 % 13.2 Platelets 150 - 450 k/ul 202 MPV 6.5 - 11.0 fl 10.3 PMN/Band 56 Lymph 29 Rolette 9 EOS 5 Baso 1 PMN Absolute 1.8 - 7.7 k/ul 4.3 Lymph Absolute 1.0 - 4.8 k/ul 2.2 Rolette Absolute 0.1 - 0.7 k/ul 0.7 Eos Absolute 0.0 - 0.5 k/ul 0.4 Baso Absolute 0.0 - 0.2 k/ul 0.1 Immature Gran 0 Imm Gran Absolute 0 k/ul 0.0 Sodium 136 - 145 mmol/L 142 Potassium 3.5 - 5.1 mmol/L 3.9 Chloride 98 - 109 mmol/L 106 CO2 20 - 29 mmol/L 27 Anion Gap (calc.) 7 - 16 mmol/L 9 Glucose 70 - 180 mg/dl 109 Calcium 8.4 - 10.2 mg/dl 8.6 BUN 7 - 26 mg/dl 15 Creatinine 0.73 - 1.18 mg/dl 1.38 (H) GFR, Estimated >60 ml/min/1.73m2 48 (L) GFR, Est., If Black >60 ml/min/1.73m2 56 (L) Specimen Description Urine Clean Catch Special Requests Unspecified Culture > 100,000 col/ml Escherichia coli Report Status Final 01/18/2016 Organism > 100,000 col/ml Escherichia coli Troponin I 0.00 - 0.06 ng/ml <0.02 TSH, Sensitive 0.36 - 3.74 uIU/ml 1.31 MEDICATIONS AND ALLERGIES Medications as of 10/13/2016 Current Outpatient Prescriptions Medication Sig Dispense Refill [...] times a day. Reported on 10/13/2016 ??? LORazepam (ATIVAN) 1 MG tablet Take 1 tablet 30 minutes before scan (Patient not taking: Reported on 10/13/2016) 2 Tab 0 ??? montelukast (SINGULAIR) 10 MG tablet Take 10 mg by mouth every evening. ??? Multiple Vitamins-Minerals (ICAPS AREDS FORMULA OR) 1 Tab two times a day. ??? omeprazole (PRILOSEC) 20 MG capsule TAKE ONE CAPSULE BY MOUTH TWICE DAILY ONE HOUR BEFORE A [id number] Cap 0 No current facility-administered medications for this visit. Allergies: Allergies Allergen Reactions ??? Excedrin Extra Strength [Gevernk-Ebnfkgndqecyn-Clfrvesc] Anaphylaxis ??? Banana Other, see comments Throat swelling, wheezing Also avoids melons PAST MEDICAL HISTORY, SURGICAL HISTORY, FAMILY HISTORY, and SOCIAL HISTORY Past Medical History Diagnosis Date ??? 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 GENERAL PHYSICAL AND NEUROLOGIC EXAMINATION Vital signs: BP 142/80 mmHg Pulse 66 Wt 233 lb 9.6 oz (105.96 kg) I performed the following general examination and all are normal with the following exceptions: No exceptions General: Well developed, well nourished, and in no acute distress, Well groomed Head and face: Head is normocephalic and atraumatic. Please see neurologic exam also. Eyes: Sclerae are anicteric. Conjunctivae are not injected. Ears, nose, mouth, and throat: Anatomically unremarkable. Mucous membranes are moist. External appearance of nasopharynx is unremarkable. Oropharynx, and tongue are without erythema, exudates, or otherlesions. Neck: Supple. Respiratory: Lungs are clear to auscultation bilaterally in the posterior lung buck. Cardiovascular and peripheral vascular: Heart rate is regular with a normal S1 and S2. No murmurs, gallops,or rubs. No carotid bruits or temporal bruits. Edema is not significantly present. Skin: No rashes or unusual lesions are noted. Musculoskeletal and extremities: No bony or joint abnormalities are seen. Psychiatric: Mood is euthymic. Affect is mood congruent. Thought processes are logical and presentedin a rational manner. Again, please note exceptions to this exam above. NEUROLOGIC EXAMINATION: I performed the entire neurologic examination below and all are completely normal with the followingexceptions / abnormalities: ?? No formal mental status testing was done, though he provides a very articulate and cogent history. ?? On cranial nerve exam, single Camacho dheeraj testing revealed image in the right eye to be deviated to the left, indicating exotropia vs CN palsy, tested midline gaze only. ?? Motor testing revealed normal tone, moving all extremities equally, no pronator drift, fine motorsymmetric / normal, fully ambulatory and weight bearing. ?? Reflexes 1+ and symmetric in BUE (triceps, biceps, brachioradialis), unobtainable knees and ankles, withdrawal plantar reflexes with no extensot plantar response ?? Sensory has absent vibratory sense in great toes, index fingers are 7+ symmetrically on (right / left side on Rydel- Seiffer Scale both black triangles) ?? Cerebellar / movement within normal limits on all below ?? Gait abnormal with posture bent at waist forward leaning, left leg has replaced knee and higher step amplitude (mild), base variably 4 to 6 at heels. Is able to toe walk, poor distal foot elevatikon on heel walking alivia on right , unable to maintain tandem though at least able to align feet briefly. Mental status: Alert and follows multi-step requests with ease. Speech is fluent and with appropriate content. The patient provides a cogent history. 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 Fund of knowledge is normal for education and occupation. Attention and concentration are within normal limitswhen executing all maneuvers of the detailed neuro exam. Cranial nerves: Visual buck are full to confrontation. Ophthalmoscopic exam reveals sharp discs, and fundi are free of significant vascular or other abnormalities. No ptosis Pupils are equal, round, and with intact direct and consensual reaction. Extraocular movements are full range of motion and with no nystagmus nor diplopia. Facial sensation is full, pterygoids and masseters are strong. Facial movement are symmetric and full. Hearingis intact to soft conversation. Voice quality normal. Palate raises symmetrically and uvula is midline. Sternocleidomastoid and trapezius muscles are strong and symmetric. Tongue protrudes midline and is full range ofmotion. Again, please note exceptions / abnormalities to neurologic exam above. Motor exam: Bulk and tone are normal for age and state of conditioning. No fasciculations are present. Pronator drift testing reveals no loss of extensor tone, pronation, nor down drift. Finger and toe tapping are rapid with appropriate dominant side advantage. Strength is 5/5 and symmetric in all the major muscle groups of the upper and lower extremities. Muscles tested include shoulder abduction, external rotation of the elbow, elbow flexion midway supinated, elbow flexion pronated,elbow extension, wrist flexion & extension, digit ext MCP joints, finger spread, finger flexors and in lower extremities including hip flexion, thigh abduction & adduction, knee flexion & extension, ankle dorsiflexion & plantarflexion. MRC scale: 5 = Full, 4 = Reduced, 3 = antigravity only, 2 = less than gravity, 1 = flicker, 0 = completely absent Reflexes: Reflexes 1+ or 2+ and symmetric on the (4 point NINDS scale, right / left) in triceps, biceps, brachioradialis, knee jerks, ankle jerks. Plantar responses were tested and either neutral or mute, see exceptions above. Clonus testing performed for all neuromuscular cases. Sensory: Light touch, pinprick, and vibratory are intact and symmetric. Cerebellar and movement: Overall movement speed and amplitude, Xgnxmy-qlkd-igndms, kppd-nzwa-rqlr, and rapid alternating movements are executed smoothly, rapidly, and without dysmetria. No adventitiousmovements at rest or with voluntary movement. Station and gait: Posture is upright, Base is narrow. Amber and stride length are normal. Arm swing is coordinated and with normal amplitude, and turns are en face. Heel, toe, and tandem walk are normal. Again, please note exceptions / abnormalities to neurologic exam above. Thank you again for involving me in the care of Zaid Rutledge, if I may be of further service please feel free to contact me. Hilaria Feldman MD Hilaria Feldman MD, Neurologist, [facility] Medical Specialties Dept, [facility] , Clinic phone [phone] End note documented in this encounter Nursing Notes Shweta Louis - 10/13/2016 7:10 AM CDT Zaid Rutledge is a 81 y.o. old male here for consult about NPH. Shweta Louis 10/13/2016, 7:10 AM documented in this encounter Plan of Treatment Not on filedocumented as of this encounter Results FL Lumbar Puncture (For CSF) (10/28/2016 2:35 [...] cm H2O. 31 mL CSF obtained. Hilaria Feldman MD RAD FL (ABNORMAL) Vitamin E, Serum, (12HR Fast Recommended) (10/28/2016 2:35 PM CDT) Component Value Ref Test Analysis Performed At [facility] Range Method Time Signature Vitamin E 20.0 [facility] Alpha-Tocophe Reference range: 5.5 to 18.0 [facility] Unit: mg/L (H) Vitamin E (NOTE) [facility] Alpha-Tocophe Test developed and characteristics determined by [facility] ? ? [facility]. See Compliance Statement B: [employer]/ Vitamin E 0.3 [facility] Gamma-Tocophe Reference range: 0.0 to 6.0 [facility]: mg/L Vitamin E (NOTE) [facility] Gamma-Tocophe [address] [place] [address] [facility] [email or web address], Yan Cates MD, Lab. Director Specimen Anatomical Collection Method Collection Time Receive d Time (Source) Location / / Volume Laterality 10/28/2016 2:35 PM 7 2:40 CDT PM CDT On license of [facility] - 10/30/2016 6:04 PM CD T Performed by [facility], [address] [place], [place] [address] Hilaria Feldman MD LAB_1 Performing Organization Address City/State/ZIP Code Phon e Number [address] [address] Treponema Screen (10/28/2016 2:35 PM CDT) [facility] Method Time Signature Treponema Non Reactive [facility] Screen Reference range: Non Reactive HOSPITAL Specimen Anatomical Collection Method Collection Time Receive d Time (Source) Location / / Volume Laterality 10/28/2016 2:35 PM 7 2:40 CDT PM CDT On license of [facility] - 10/29/2016 4:57 PM CD T Performed at [facility], [facility] [place] [address] Hilaria Feldman MD LAB_1 Performing Organization Address [facility] Phon e Number [address] [address] VDRL CSF (10/28/2016 2:35 PM CDT) Patholo gist Method Time Signature T Pallidum Non Reactive [facility] (VDRL) CSF Reference range: Non Reactive HOSPITAL Reflex T Pallidum (NOTE) [facility] (VDRL) CSF Because the VDRL was Non Reactive, the VDRL titer was not ?? HOSPITAL Reflex performed. [address] [facility] [place] [address] [email or web address], Yan Cates MD, Lab. Director Specimen Anatomical Collection Method Collection Time Receive d Time (Source) Location / / Volume Laterality 10/28/2016 2:35 PM 7 2:40 CDT PM CDT On license of [facility] - 10/30/2016 6:47 PM CD T Performed by [facility], [address] [place], [place] [address] Hilaria Feldman MD LAB_1 Performing Organization Address [facility] Phon e Number [address] [address] Methylmalonic Acid Quant (10/28/2016 2:35 PM CDT) Component Value Ref Test Analysis Performed Pathologis t Range Method Time At Signature Methylmalonic 0.14 [facility] Acid Reference range: 0.00 to 0.40 HOSPITAL Unit: umol/L Methylmalonic (NOTE) [facility] Acid INTERPRETIVE INFORMATION: MMA Serum/Plasma, ?? HOSPITAL ? Vitamin B12 Status Test developed and characteristics determined by [facility] ?? Laboratories. See Compliance Statement B: [employer]/ [address] [facility] [place] [address] [email or web address], Yan Cates MD, Lab. Director Specimen Anatomical Collection Method Collection Time Receive d Time (Source) Location / / Volume Laterality 10/28/2016 2:35 PM 7 2:40 CDT PM CDT Narrative [facility] - 10/30/2016 12:59 PM C DT Performed by [facility], [address] [place] [id number] Hilaria Feldman MD LAB_1 Performing Organization Address City/State/ZIP Code Phon e Number [address] [address] Borrelia Burgdorferi Antibody CSF (10/28/2016 2:35 PM CDT) Component Value Ref Test Analysis Performed At [facility] Range Method Time Signature Lyme Ab 0.12 [...] ?? Test developed and characteristics determined by [facility] ?? [facility]. See Compliance Statement B: [employer]/ [address] [place] [address] [email or web address], Yan Cates MD, Lab. Director Specimen Anatomical Collection Method Collection Time Receive d Time (Source) Location / / Volume Laterality 10/28/2016 2:35 PM 7 2:40 CDT PM CDT On license of [facility] - 10/30/2016 2:49 PM CD T Performed by [facility], [address] [place] [address] [address] [place], [place] [address] Hilaria Feldman MD LAB_1 Performing Organization Address City/State/ZIP Code Phon e Number [address] [address] Lyme Antibody, and Western Blot If Needed) (10/28/2016 2:33 PM CDT) Component Value Ref Test Analysis Performed At [facility] Range Method Time Signature Lyme Negative [facility] [...] 2:33 PM 7 2:38 CDT PM CDT On license of [facility] - 10/30/2016 10:22 AM C DT Performed at [facility] Laboratory, [address] [place] [address], [place] [address] Hilaria Feldman MD LAB_1 Performing Organization Address City/State/ZIP Code Phon e Number [address] [address] First CSF Cell Count & Diff (10/28/2016 2:31 PM CDT) Component Value Ref Test Analysis Performed At [facility] [employer] Range Method Time Signature Source Cerebrospinal [facility] Fluid [facility] Description, CSF Clear [facility]OSPITAL Tube # TUBE 2 [facility] Xanthochromia Absent [facility] RBC, CSF 1 /ul [facility] Nucleated Cells, 0 0 - 5 [facility] CSF /ul [facility]OSPITAL Specimen Anatomical Location Collection Method Collection Time Received Time (Source) / Laterality / Volume CEREBROSPINAL FLUID 10/28/2016 2:31 10/28 2:36 / Unknown PM CDT PM CDT On license of [facility] - 10/28/2016 4:45 PM CD T Performed at [facility], [address] [place] [address] Hilaria Feldman MD LAB_1 Performing Organization Address City/[facility]/ZIP [facility] Phon e Number [address] [address] CSF Glucose (10/28/2016 2:31 PM CDT) [employer] Method Time Signature Source [facility] Glucose, CSF 53 40 - 70 [facility] mg/dl [facility] Comment: The use of this assay to monitor or diag nose patients has not been approved for this specimen type by the FDA or sustainability manager of this assay. Specimen (Source) Anatomical Collection Method Collection Time Re ceived Time Location / / Volume Laterality Cerebrospinal fluid 10/28/2016 2:31 10/28 specimen (specimen) PM CDT 2:36 PM CDT On license of [facility] - 10/28/2016 3:16 PM CD T Performed at [facility], [address] [place] [address] Hilaria Feldman MD LAB_1 Performing Organization Address City/[facility]/ZIP Code Phon e Number [address] [address] Spinal Fluid Culture & Smear (10/28/2016 2:30 PM CDT) Component Value Ref Test Analysis [facility] Range Method Time Signature Specimen Cerebrospinal [facility] Description Fluid [facility]OSPITAL Special Unspecified [facility] Requests [facility]OSP[facility] Gram Smear No Organisms [facility] Seen [facility] Culture No Growth After [facility] 3 Days HOSPITAL Report Status Final 10/31/2016 [facility] Specimen Anatomical Collection Method Collection Time Receive d Time (Source) Location / / Volume Laterality 10/28/2016 2:30 PM 7 2:35 CDT PM CDT Narrative [facility] - 10/31/2016 11:29 AM C DT Performed at [facility], [address] [place] [address] Hilaria Feldman MD LAB_1 Performing Organization Address City/State/ZIP Code Phon e Number [address] [address] Cytology, Non-Ingredient Specialist (Fluids, Urine, Sputum) (10/28/2016 2:30 PM CDT) [facility] gist Method Time Signature Cytology (NOTE) [facility] Non-Ingredient Specialist Cytology Report HOSPIT AL Patient Name: ZAID RUTLEDGE Taken: 10/28/2016 Received: 10/29/2016 Reported: 10/29/2016 Physician(s): HILARIA FELDMAN ? Final Cytologic Diagnosis Cerebrospinal Fluid: ? NEGATIVE FOR MALIGNANCY ? nm/10/29/2016 *Electronically Signed Out By* ? Charu Nguyen MD ? Microscopic Description Microscopic examination is performed. Gross Description 1.0 ml of clear, colorless fluid received. ??1.0 ml processe d to make 2 Matthews-stained, single cytospin slides. [facility] Department of Pathology [address] [place] [address] ??[id number] Specimen Anatomical Collection Method Collection Time Receive d Time (Source) Location / / Volume Laterality 10/28/2016 2:30 PM 7 8:33 CDT AM CDT Hilaria Feldman MD LAB_1 Performing Organization Address [facility] Phon e Number [address] [phone] [address] [phone] (ABNORMAL) Lipid Panel and Direct LDL(If Needed) (10/28/2016 2:29 PM CDT) Component Value Ref Test Analysis Performed At [facility] [employer] Range Method Time Signature Hours Fasting Information Not hours [facility] Given [facility]OS[facility]ITAL Cholesterol 221 (H) 0 - 199 [facility] mg/dl [facility] Triglyceride 266 (H) 0 - 149 [facility] mg/dl [facility] HDL 30 (L) >40 [facility] mg/dl [facility] LDL, Calc. 138 (H) 0 - 129 [facility] mg/dl [facility] Non HDL Chol, 191 mg/dl [facility] Calc [facility] Specimen Anatomical Collection Method Collection Time Receive d Time (Source) Location / / Volume Laterality 10/28/2016 2:29 PM 7 2:34 CDT PM CDT On license of [facility] - 10/28/2016 4:22 PM CD T Performed at [facility], [address] [place] [address] Ramses Cleary MD LAB_1 Performing Organization Address [facility] Phon e Number [address] [phone] [address] [phone] Anti SS-B (La) (10/28/2016 2:29 PM CDT) [facility] [employer] Method Time Signature Anti-SSB (La) <0.3 0 - 6.9 [facility] Result U/mL [facility] Anti-SSB (NOTE) [facility] Interpreta. Anti-SSB ([place]) ?Interpretation HOSPITAL VALUE ?of Test Results 0-6.9 ? Negative 7.0-10.0 ?Equivocal >10.0 ? Positive Specimen Anatomical Collection Method Collection Time Receive d Time (Source) Location / / Volume Laterality 10/28/2016 2:29 PM 7 2:34 CDT PM CDT On license of [facility] - 10/29/2016 11:54 AM C DT Performed at [facility] [employer] [facility], [address] [place] [address] ??[phone] Ramses Cleary MD LAB_1 Performing Organization Address [facility] Phon e Number [address] [phone] Anti SS-A (Ro) (10/28/2016 2:29 PM CDT) [facility] gist Method Time Signature Anti-SSA (Ro) 0.3 0 - 6.9 [facility] result U/mL HOSPITAL Anti-SSA (NOTE) [facility] Interpreta. Anti-SSA (Ro) ?Interpretation HOSPITAL VALUE ?of Test Results 0-6.9 ? Negative 7.0-10.0 ?Equivocal >10.0 ? Positive Specimen Anatomical Collection Method Collection Time Receive d Time (Source) Location / / Volume Laterality 10/28/2016 2:29 PM 7 2:34 CDT PM CDT Narrative [facility] - 10/29/2016 11:54 AM C DT Performed at [facility] [employer] [facility], [address] [place] [address] ??[phone] Ramses Cleary MD LAB_1 Performing Organization Address [facility] Phon e Number [address] [phone] TB Gold, Quantiferon (10/28/2016 2:29 PM CDT) Component Value Ref Test Analysis Performed At [facility] gist Range Method Time Signature TB Gold, Negative NEG [facility] Quantiferon [facility]OSPITAL TB NIL Value <0.01 IU/mL [facility] TB Ag-NIL <0.01 IU/mL [facility] Value [facility]OSPITAL Mitogen-NIL >10.00 IU/mL [facility] Value [facility] TB Gold (NOTE) [facility] Interpreta. Nil [...] 2:29 PM 7 2:34 CDT PM CDT On license of [facility] - 10/30/2016 1:01 PM CD T Performed at [facility] , [address] [place] [id number] Ramses Cleary MD LAB_1 Performing Organization Address City/State/ZIP Code Phon e Number [address] [phone] [address] [phone] Igg, Serum (10/28/2016 2:29 PM CDT) P athologist Signature IgG, Serum 1,055 540 - 1,822 [facility] mg/dl HOSPITAL Specimen Anatomical Collection Method Collection Time Receive d Time (Source) Location / / Volume Laterality 10/28/2016 2:29 PM 7 2:34 CDT PM CDT On license of [facility] - 10/28/2016 6:27 PM CD T Performed at [facility], [address] [place] [address] ??[phone] Ramses Cleary MD LAB_1 Performing Organization Address City/State/ZIP [facility] Phon e Number [address] [address] Homocysteine (10/28/2016 2:29 PM CDT) athologist Signature Homocysteine, 15.0 5.0 - 15.4 [facility] CV umol/L [facility] Comment: Homocysteine levels drawn 6 to 8 hours a fter consumption of a large, protein rich meal may be elevated by 10 to 15%. Specimen Anatomical Collection Method Collection Time Receive d Time (Source) Location / / Volume Laterality 10/28/2016 2:29 PM 7 2:34 CDT PM CDT On license of [facility] - 10/28/2016 6:45 PM CD T Performed at [facility], [address] [place] [address] ??[phone] Ramses Cleary MD LAB_1 Performing Organization Address [facility] Phon e Number [address] [address] Vitamin B12 Only (10/28/2016 2:29 PM CDT) athologist Signature Vitamin B12 401 213 - 816 [facility] pg/ml [facility]PITAL Specimen Anatomical Collection Method Collection Time Receive d Time (Source) Location / / Volume Laterality 10/28/2016 2:29 PM 7 2:34 CDT PM CDT On license of [facility] - 10/28/2016 6:50 PM CD T Performed at [facility], [address] [place] [address] ??[phone] Ramses Cleary MD LAB_1 Performing Organization Address City/[facility]/ZIP [facility] Phon e Number [address] [address] MR Angio Neck W/WO IV Cont (10/28/2016 9:43 AM CDT) Anatomical Region Laterality Modality Neck, Vascular, C-Spine, Skeletal Magnet ic Resonance Specimen (Source) Anatomical Collection Method Collection Time Re ceived Time Location / / Volume Laterality 10/28/2016 9:43 AM CDT Narrative 10/28/2016 3:26 PM CDT [facility] 1. HEAD MRA WITHOUT IV CONTRAST 2. NECK MRA WITHOUT AND WITH IV CONTRAST 10/28/2016 9:35 AM INDICATION: 3 spells of dizziness with d ipplopia, worrisome for TIA especially posterior circulation TECHNIQUE: 1. 3D [id number]-ww-rfjdmf head MRA without in travenous contrast. 2. [...] note might be different from the original. [facility] 1. HEAD MRA WITHOUT IV CONTRAST 2. NECK MRA WITHOUT AND WITH IV CONTRAST 10/28/2016 9:35 AM INDICATION: 3 spells of dizziness with d ipplopia, worrisome for TIA especially posterior circulation TECHNIQUE: 1. 3D nvgy-yb-ejvttr head MRA without in travenous contrast. 2. [...] MRA: 1. No significant stenosis of the international logistics coordinator al carotid arteries bilaterally based on NASCET [...] the brachiocephalic artery is not well imaged. Hilaria Feldman MD RAD MRI MR Angio Head WO IV Cont (10/28/2016 9:35 AM CDT) Anatomical Region Laterality Modality Head, Vascular Magnetic Resonance Specimen (Source) Anatomical Collection Method Collection Time Re ceived Time Location / / Volume Laterality 10/28/2016 9:35 AM CDT Narrative 10/28/2016 3:26 PM CDT [facility] 1. HEAD MRA WITHOUT IV CONTRAST 2. NECK MRA WITHOUT AND WITH IV CONTRAST 10/28/2016 9:35 AM INDICATION: 3 spells of dizziness with d ipplopia, worrisome for TIA especially posterior circulation TECHNIQUE: 1. 3D qbtf-ug-kievna head MRA without in travenous contrast. 2. [...] note might be different from the original. [facility] 1. HEAD MRA WITHOUT IV CONTRAST 2. NECK MRA WITHOUT AND WITH IV CONTRAST 10/28/2016 9:35 AM INDICATION: 3 spells of dizziness with d ipplopia, worrisome for TIA especially posterior circulation TECHNIQUE: 1. 3D mopq-lx-fslqxp head MRA without in travenous contrast. 2. [...] MRA: 1. No significant stenosis of the international logistics coordinator al carotid arteries bilaterally based on NASCET [...] the brachiocephalic artery is not well imaged. Hilaria Feldman MD RAD MRI Flow Cytometry (10/28/2016 7:00 AM CDT) [facility] Method Time Signature Hematology (NOTE) [facility] Flow Cytometry Report [facility]OSPITAL Patient Name: ZAID RUTLEDGE Accession #: ?? [id number] Taken: 10/28/2016 Received: 10/29/2016 Reported: 10/29/2016 Physician(s): HILARIA FELDMAN ? INTERPRETATION Cerebrospinal fluid, immunophenotyping: ?- Predominance [...] and results of imaging studies is recommended. 10/29/2016 *Electronically Signed Out By* ? Charu Nguyen [...] and the performance characteristics were determined by [facility]. ??It has not been cleared or [...] with H&E finding s during diagnostic evaluation. [facility] Department of Pathology [address] [place] [address] ??[id number] Specimen Anatomical Collection Method Collection Time Receive d Time (Source) Location / / Volume Laterality OTHER / Unknown 10/28/2016 7:00 AM 2016 CDT 11:00 AM CDT Hilaria Feldman MD LAB PATHOLOGY Performing Organization Address City/State/[facility] Code Phon e Number [address] [phone] documented in this encounter Visit Diagnoses Diagnosis Hydrocephalus, acquired ([facility]) - Primary Obstructive hydrocephalus Gait disorder Abnormality of gait Vibration sensory loss Disturbance of skin sensation Abnormal reflexes of lower extremity 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
--- OUTSIDE RECORDS SUMMARY | 2022-02-24 12:23 | XMS_ITS | Encounter Summary ---
:1935 Author Organization [employer] Address [address] [place] [address] Care Team Providers Name Role Phone Morgan Bass DO Primary Care Provider Reason for Visit Procedure/Equipment (Routine) - Closed Specialty Diagnoses / Procedures Referred By Contact Refer red To Contact Radiology [place] Diagnoses Vertebrobasilar artery syndrome Lianne Feldman MD Lv Radiology Procedures MR Angio Head WO IV Cont [address] [place] [address] [place] [address] Referral ID Status Reason Start Date Expiration Date Visits Requ ested Visits Authorized [id number] Closed 10/14/2016 01/13/2018 1 1 Encounter Details Date Type Department Care Team Description 10/28/2016 Imaging [facility] Lianne Feldman Verteb robasilar artery Radiology MRI MD syndrome [address] [place] [address] [address] [place] [address] BLVD [phone] [place] [address] Social History Tobacco Use Types Packs/Day Years [...] Date/Time Associated Diagnosis Comme nts MR ANGIO HEAD WO Routine 10/28/2016 9:35 AM Vertebrobasilar ar noa Results for this IV CONT CDT syndrome procedure are i n the results section. documented in this encounter Results MR Angio Head WO IV Cont (10/28/2016 9:35 AM CDT) Anatomical Region Laterality Modality Head, Vascular Magnetic Resonance Specimen (Source) Anatomical Collection Method Collection Time Re ceived Time Location / / Volume Laterality 10/28/2016 9:35 AM CDT Narrative 10/28/2016 3:26 PM CDT [facility] 1. HEAD MRA WITHOUT IV CONTRAST 2. NECK MRA WITHOUT AND WITH IV CONTRAST 10/28/2016 9:35 AM INDICATION: 3 spells of dizziness with d ipplopia, worrisome for TIA especially posterior circulation TECHNIQUE: 1. 3D olsm-wd-zjbjsi head MRA without in travenous contrast. 2. [...] note might be different from the original. [facility] 1. HEAD MRA WITHOUT IV CONTRAST 2. NECK MRA WITHOUT AND WITH IV CONTRAST 10/28/2016 9:35 AM INDICATION: 3 spells of dizziness with d ipplopia, worrisome for TIA especially posterior circulation TECHNIQUE: 1. 3D hexd-kn-qxjzbi head MRA without in travenous contrast. 2. [...] MRA: 1. No significant stenosis of the validation intern al carotid arteries bilaterally based on NASCET [...] Vertebrobasilar artery syndrome documented in this encounter Care Teams End Worker Relationship Specialty Start Date End Date Morgan Bass DO PCP - General Family Practice 10/02/16 10/25/17 [address] [place] [address] documented as of this encounter
--- OUTSIDE RECORDS SUMMARY | 2022-02-24 12:23 | XMS_ITS | Encounter Summary ---
:1935 Author Organization [facility] Address [address], [place] [address] Care Team Providers Name Role Phone Morgan Bass Primary Care Provider [phone] Reason for Visit Reason Comments Prostate Cancer 6 mo check; PSA 5.1 done 10/13 11/29 Encounter Details Date Type Department Care Team Description 11/07/2016 Office Visit [facility] Waqas Rodney ostrashaad cancer (HRC) Beatriz Griffith MD (Primary Dx) [facility] [address] [place] [address] [place], [place] [phone] Social History Tobacco Use Types Packs/Day Years [...] Patient Instructions Patient InstructionsStWaqas haynes MD - 11/07/2016 8:30 AM CDT Other tests: PSA down to 5.1. ? A: Prostate cancer, slow growing. On Active Surveillance and no evidence of progression. No need forbiopsy. Weak bladder on int cathing. Doing well with this. ?? P: every 6mos PSA for now. Continue SIC with no need to record volumes at this point. No need for biopsy at this point. Internal Medicine Dr Rona Terrell documented in this encounter Progress Notes Waqas Rodney MD - 11/07/2016 8:30 AM CDT Taken: 10/31/2014 Received: 10/31/2014 Reported: 11/01/2014 Physician(s): Waqas Rodney Final Pathologic Diagnosis A. Prostate, right base, needle biopsy - 1. Benign prostate tissue 2. No evidence of atypia or malignancy B. Prostate, right mid, needle biopsy - 1. Benign prostate tissue 2. No evidence of atypia or malignancy C. Prostate, right apex, needle biopsy - 1. Benign prostate tissue 2. No evidence of atypia or malignancy D. Prostate, left base, needle biopsy - 1. Benign prostate tissue 2. No evidence of atypia or malignancy E. Prostate, left mid, needle biopsy - 1. Benign prostate tissue 2. No evidence of atypia or malignancy F. Prostate, left apex, needle biopsy - 1. 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 1 of 3 needle cores positive 3. 5% tissue involvement 4. Perineural invasion not identified ?? Date of Service: 04/24/2016 ?? S: This patient returns for recheck of his prostate cancer. He is on and doing well with SIC clean 400 cc and no recent UTIs Going to the [facility] in [place]. Since the last visit there has been no other significant problems. There is no fever, significant weight loss or rash. No new urologic medications have been prescribed. No complaints of urinary leakage, hematuria, UTI's. No rashes of the ext genitalia. No intervention by other caregiver for problem. No change in sexual function. ?? O: Filed Vitals: ? Alert and oriented and good spirits. No rashes on the face or trunk. No gynecomastia, no flank masses. Abdomen and flank soft, no rebound or masses. No inguinal masses or hernia. Testis benign, descended. Urethral meatus normal, no peyronies plaques. Anal tone normal, no rectal masses, prostate benign and symmetric. ?? Other tests: PSA down to 5.1. ? A: Prostate cancer, slow growing. On Active Surveillance and no evidence of progression. No need forbiopsy. Weak bladder on int cathing. Doing well with this. ?? P: every 6mos PSA for now. Continue SIC with no need to record volumes at this point. No need for biopsy at this point. documented in this encounter Plan of Treatment Not on filedocumented as of this encounter Visit Diagnoses Diagnosis Prostate cancer (HRC) - Primary Malignant neoplasm of prostate documented in this encounter Care Teams Per Diem Physical Therapist Relationship Specialty Start Date End Date Morgan Bass DO PCP - General Family Practice 10/02/16 10/25/17 [address] [place] [address] documented as of this encounter
--- OUTSIDE RECORDS SUMMARY | 2022-02-24 12:24 | XMS_ITS | Encounter Summary ---
:1935 Author Organization [facility] Address [address] [address] Care Team Providers Name Role Phone Ramses Cleary MD Primary Care Provider Unavailable Reason for Visit Reason Comments Refill allopurinol Encounter Details Date Type Department Care Team Description 11/04/2015 Refill [facility] Ramses Cleary, Refill (allopurinol) [facility] anjelica MURRAY [address] [place] [address] [address] [phone] [place] [address] Social History Tobacco Use Types Packs/Day Years [...] encounter Nursing Notes Adelaide Rehman RN - 11/04/2015 4:04 PM CDT Ordered per Refill Standing Order/Protocol. Adelaide Rehman RN 11/04/2015, 4:04 PM Interface, Out Surescripts Prov Query - 11/04/2015 2:42 PM CDT allopurinol (AKA ZYLOPRIM) 100 MG tablet [Pharmacy Med Name: ALLOPURINOL 100MG TABLETS] - REFILL: 12 months - PROTOCOL: Endocrinology: Gout Agents - Allopurinol - RATIONALE: This refill should last until the patient is due for an office visit check, ALT check and Cr check. - LAST QUALIFYING VISIT IN FAMILY PRACTICE: 10/19/2015 - NEXT SCHEDULED VISIT: None - LAST REFILLED ON: 08/01/2015, QTY: 90, Refills: 0, Sig: take 1 tablet by mouth daily (changed but equivalent) - Cr: 1.13mg/dL on 10/19/2015 - ALT: 47.0U/L on 10/19/2015 - HGB: 14.7g/dL on 10/29/2015 - HCT: 44.1% on 10/29/2015 - [age] - PLT: 160.0k/cmm on 10/29/2015 - RBC: 4.83m/cmm on 10/29/2015 - RDW: 13.2% on 10/29/2015 - WBC: 5.3k/cmm on 10/29/2015 [employer], Reference: [id number], 11/04/2015 2:42:45 PM CDT, Pool: [facility] REFILL RN ([id number]) Interface, Out Signature Query - 11/04/2015 2:42 PM CDT The following lab order(s) may be associated with the Result Note below: LIVER PANEL(HEPATIC FUNCTION PANEL); BASIC METABOLIC PANEL Notes Recorded by Aubrie Brown CMA on 10/22/2015 at 11:11 AM Tried reaching pt, no answer. LM on pt's VM (okay per demographics) of results. Clinic number provided for questions. ------ Notes Recorded by Ramses Cleary MD on 10/22/2015 at 6:39 AM Please call, Your blood sugar was normal. Your calcium level is borderline low. Your liver and kidney tests are otherwise normal. Ramses Cleary MD documented in this encounter Plan of Treatment Not on filedocumented as of this encounter Visit Diagnoses Not on filedocumented in this encounter Care Teams Cap Parts Cutter Relationship Specialty Start Date End Date Ramses Cleary MD PCP - General Family Practice 10/21/11 documented as of this encounter
--- OUTSIDE RECORDS SUMMARY | 2022-02-24 12:24 | XMS_ITS | Encounter Summary ---
:1935 Author Organization [facility] Address [address] [address] Care Team Providers Name Role Phone Ramses Cleary MD Primary Care Provider Unavailable Reason for Visit Reason Comments DIZZINESS Encounter Details Date Type Department Care Team Description 01/16/2016 Nurse Triage [facility] Alexei Cleary MD DIZZINESS [facility] Pr actice [address] [place] [address] [place] [address] Social History Tobacco Use Types Packs/Day Years [...] documented as of this encounter Nursing Notes Erma Abarca RN - 01/16/2016 4:51 PM CDT Verified and full name. Yes; spoke to the patient's with the patient responding to questions in the background. 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 His drove him home and he had a large hamburger for lunch. She reports that since they havebeen home, they have been resting for the past 45 minutes on the couch. She reports that just a few m inutes ago he had an episode that occurred out of the blue where he started feeling dizzy, nauseated, clammy, and had profuse sweating. The patient noted that he had some SOB with the event. He denies chest pain, jaw pain, arm pain, back alexi. He is unsure whether or not he had heart palpitations or racing with the episode. Unclear how long the episode lasted, however, the patient took 2- 325mg Aspirin and symptoms improved, but patient still clammy, nauseated, slightly dizzy. The patient notes that he had another episode of dizziness earlier this week. Background related to current situation/symptom: Recent back surgery 10/2015. Pertinent Medical history: GERD, Irritable bowel. Medications: Reviewed Pertinent medications with the patient/caller No Discussed with the patient's and the patient that RN (policy writer sales) finds symptoms concerning and requiring immediate evaluation, due to possibility of cardiac in nature. With this, recommended the patient go to the ED now for further evaluation. They verbalized agreement and understanding of the plan. Erma Abarca RN 01/16/2016, 4:57 PM documented in this encounter Plan of Treatment Not on filedocumented as of this encounter Visit Diagnoses Not on filedocumented in this encounter Care Teams Behavioral Health Technician Relationship Specialty Start Date End Date Ramses Cleary MD PCP - General Family Practice 10/21/11 documented as of this encounter
--- OUTSIDE RECORDS SUMMARY | 2022-02-24 12:24 | XMS_ITS | Encounter Summary ---
:1935 Author Organization [facility] Address [address] [address] Care Team Providers Name Role Phone Ramses Cleary MD Primary Care Provider Unavailable Reason for Visit Reason Comments FOLLOW-UP,HOSPITAL Encounter Details Date Type Department Care Team Description 10/31/2015 Telephone [facility] Ramses Cleary, FOLLOW-UP,[facility] anjelica MURRAY [address] [place] [address] [address] [phone] [place] [address] Social History Tobacco Use Types Packs/Day Years [...] documented as of this encounter Nursing Notes Elayne Capone RN - 10/31/2015 8:49 AM CDT Hospital Discharge: Did not attempt to reach patient. Patient was discharged from a specialty service with orthopedics. Elayne Jones RN 10/31/2015, 8:49 AM documented in this encounter Plan of Treatment Not on filedocumented as of this encounter Visit Diagnoses Not on filedocumented in this encounter Care Teams Hand Slitter Relationship Specialty Start Date End Date Ramses Cleary MD PCP - General Family Practice 10/21/11 documented as of this encounter
--- OUTSIDE RECORDS SUMMARY | 2022-02-24 12:24 | XMS_ITS | Encounter Summary ---
:1935 Author Organization [facility] Address [address], [place] [address] Care Team Providers Name Role Phone Ramses Cleary MD Primary Care Provider Unavailable Reason for Visit Reason Comments Refill omeprazole Encounter Details Date Type Department Care Team Description 08/05/2016 Refill [facility] Ramses Cleary, Refill (omeprazole) [facility] Pr anjelica MURRAY [address] [place] [address] [address] [phone] [place] [address] Social History Tobacco Use Types Packs/Day Years [...] encounter Nursing Notes Adelaide Rehman RN - 08/05/2016 3:42 PM CST Ordered per Refill Standing Order/Protocol. Adelaide Rehman RN 08/05/2016, 3:42 PM E TRAINER Interface, Out [employer] [facility] Query - 08/05/2016 9:57 AM CST omeprazole (PRILOSEC) 20 MG capsule [Pharmacy Med Name: OMEPRAZOLE 20MG CAPSULES] Protocol: Gastroenterology: Antiulcer - Proton Pump Inhibitors -> Refill x 3 months (until due for an office visit) Last qualifying visit: 10/19/2015 (in [facility]) Next scheduled visit: None Last ordered by RAMSES CLEARY E: 08/13/2015 (358 days ago) QTY: 180, Refills: 3, Sig: take one capsule by mouth twice daily one hour before a meal (unchanged) Age: 81 Powered by [employer], Reference: [id number], 08/05/2016 9:57:08 AM HORSE TRAINER, Pool: PETER JEFFERY RN ([id number]) E TRAINER documented in this encounter Plan of Treatment Not on filedocumented as of this encounter Visit Diagnoses Not on filedocumented in this encounter Care Teams Automation Tech Relationship Specialty Start Date End Date Ramses Cleary MD PCP - General Family Practice 10/21/11 documented as of this encounter
--- OUTSIDE RECORDS SUMMARY | 2022-02-24 12:24 | XMS_ITS | Encounter Summary ---
:1935 Author Organization [facility] Address [address] [address] Care Team Providers Name Role Phone Ramses Cleary MD Primary Care Provider Unavailable Reason for Visit Reason Comments SWELLING, TOES L great toe pain 2 days some redenss and swelling hx of gout Encounter Details Date Type Department Care Team Description 08/23/2016 Office Visit [facility] Gout i nvolving toe of [facility] re left foot, unspecified [address] [place], [place] [address] chronicity (Primary Dx) [phone] Social History Tobacco Use Types Packs/Day Years [...] Sign Reading Time Taken Comments Blood Pressure 130/80 08/23/2016 10:04 AM KILN REMOVER Pulse 76 08/23/2016 10:04 AM KILN REMOVER Temperature 36.8 ??C (98.2 ??F) 08/23/2016 10:04 AM KILN REMOVER Respiratory Rate 12 08/23/2016 10:04 AM KILN REMOVER Oxygen Saturation - - Inhaled Oxygen Concentration - - Weight 106.1 kg (234 lb) 08/23/2016 10:04 AM KILN REMOVER Height - - Body Mass Index 35.06 03/25/2016 10:45 AM CDT documented in this encounter Patient Instructions Patient InstructionsPia Ruiz PA-C - 08/23/2016 10:17 AM CST Gout: Care Instructions Your Care Instructions Gout is a form of arthritis caused by a buildup of uric acid crystals in a joint. It causes sudden attacks of pain, swelling, redness, and stiffness, usually in one joint, especially the big toe. Gout usually comes on without a cause. But it can be brought on by drinking alcohol (especially beer) or eating seafood and red meat. Taking certain medicines, such as diuretics or aspirin, also can bring on an attack of gout. Taking your medicines as prescribed and following up with your doctor regularly can help you avoid gout attacks in the future. Follow-up care is a gonzales part of your treatment and safety. Be sure to make and go to all appointments, and call your doctor if you are having problems. It???s also a good idea to know your test resultsand keep a list of the medicines you take. How can you care for yourself at home? ?? If the joint is swollen, put ice or a cold pack on the area for 10 to 20 minutes at a time. Put athin cloth between the ice and your skin. ?? Prop up the sore limb on a pillow when you ice it or anytime you sit or lie down during the next 3 days. Try to keep it above the level of your heart. This will help reduce swelling. ?? Rest sore joints. Avoid activities that put weight or strain on the joints for a few days. Take short rest breaks from your regular activities during the day. ?? Take your medicines exactly as prescribed. Call your doctor if you think you are having a problemwith your medicine. ?? Take pain medicines exactly as directed. ?? If the doctor gave you a prescription medicine for pain, take it as prescribed. ?? If you are not taking a prescription pain medicine, ask your doctor if you can take an hefc-quj-znrfdln medicine. ?? Eat less seafood and red meat. ?? Check with your doctor before drinking alcohol. ?? Losing weight, if you are overweight, may help reduce attacks of gout. But do not go on a crash diet. Losing a lot of weight in a short amount of time can cause a gout attack. When should you call for help? Call your doctor now or seek immediate medical care if: ?? You have a fever. ?? The joint is so painful you cannot use it. ?? You have sudden, unexplained swelling, redness, warmth, or severe pain in one or more joints. Watch closely for changes in your health, and be sure to contact your doctor if: ?? You have joint pain. ?? Your symptoms get worse or are not improving after 2 or 3 days. Where can you learn more? 1. Go to [email or web address].com/FilesX or GroupGifting.com DBA eGifter/[employer]cha.[employer]aPetra Systems. 2. Enter E531 in the search box. Current as of: August 08, 2015 Content Version: 11.0 ?? [id number] [employer]. Purine-Restricted Diet: Care Instructions Your Care Instructions Purines are substances that are found in some foods. Your body turns purines into uric acid. High levels of uric acid can cause gout, which is a form of arthritis that causes pain and inflammation in joints. You may be able to help control the amount of uric acid in your body by limiting high-purine foods in your diet. Follow-up care is a gonzales part of your treatment and safety. Be sure to make and go to all appointments, and call your doctor if you are having problems. It's also a good idea to know your test results and keep a list of the medicines you take. How can you care for yourself at home? ?? Plan your meals and snacks around foods that are low in purines and are safe for you to eat. These foods include: ?? Green vegetables and tomatoes. ?? Fruits. ?? Whole-grain breads, rice, and cereals. ?? Eggs, peanut butter, and nuts. ?? Low-fat milk, cheese, and other milk products. ?? Popcorn. ?? Gelatin desserts, chocolate, cocoa, and cakes and sweets, in small amounts. ?? You can eat certain foods that are medium-high in purines, but eat them only once in a while. These foods include: ?? Legumes, such as dried beans and dried peas. You can have 1 cup cooked legumes each day. ?? Asparagus, cauliflower, spinach, mushrooms, and green peas. ?? Fish and seafood (other than very high-purine seafood). ?? Oatmeal, wheat bran, and wheat germ. ?? Limit very high-purine foods, including: ?? Organ meats, such as liver, kidneys, sweetbreads, and brains. ?? Meats, including herring, beef, pork, and spear. ?? Game meats and any other meats in large amounts. ?? Anchovies, sardines, mariano, mackerel, and scallops. ?? Gravy. ?? Beer. Where can you learn more? 1. Go to Sohu.com/FilesX or GroupGifting.com DBA eGifter/[employer]. 2. Enter F448 in the search box. Current as of: May 04, 2015 Content Version: 11.0 ?? [id number] [employer], [employer]. REMOVER documented in this encounter Progress Notes Pia Ruiz PA-C - 08/23/2016 10:09 AM CST Chief Complaint Patient presents with ??? SWELLING, TOES L great toe pain 2 days some redenss and swelling hx of gout Zaid Rutledge is a 81 y.o. old male With suspected gout in the left great toe. Has been two years since last flare. No known trauma or trigger. On allopurinol. Has had indocin in the past but would like to try prednisone this time. Son has had success with prednisone OTC/home tx include -none Allergies Allergen Reactions ??? Excedrin Extra Strength [Uuoqpoy-Cxozdnurdobum-Bphmboyr] Anaphylaxis ??? Banana Other, see comments Throat swelling, wheezing Also avoids melons has a current medication list which includes the following prescription(s): acetaminophen, albuterolsulfate hfa, allopurinol, aspirin, atovaquone-proguanil, azithromycin, dorzolamide, fluticasone, guaifenesin, montelukast, multiple vitamins-minerals, multiple vitamins-minerals, omeprazole, and prednisone. Objective Blood pressure 130/80, pulse 76, temperature 98.2 ??F (36.8 ??C), resp. rate 12, weight 234 lb (106.142 kg). General - WDWN, NAD. Head - NCAT MSK -left great toe, MCP red/hot/very tender Skin - no lesion or rash on exposed skin Psych - A&O, nl mood and affect Assessment and Plan ICD-10-CM 1. Gout involving toe of left foot, unspecified cause, unspecified chronicity M10.9 predniSONE (DELTASONE) 20 MG tablet f/u PCP PRN Discussed side effects of above medications. Indocin vs prednisone Patient voiced understanding and agreement with plan. Pia Ruiz PA-C 08/23/2016, 1:03 PM REMOVER documented in this encounter Plan of Treatment Not on filedocumented as of this encounter Visit Diagnoses Diagnosis Gout involving toe of left foot, unspeci fied cause, unspecified chronicity - Primary documented in this encounter Care Teams Information Security Associate Relationship Specialty Start Date End Date Ramses Cleary MD PCP - General Family Practice 10/21/11 documented as of this encounter
--- OUTSIDE RECORDS SUMMARY | 2022-02-24 12:24 | XMS_ITS | Encounter Summary ---
:1935 Author Organization [facility] Address [address] [address] Care Team Providers Name Role Phone Ramses Cleary MD Primary Care Provider Unavailable Encounter Details Date Type Department Care Team Description 04/24/2016 Office Visit [facility] [place], Primar y prostate [facility] Waqas Griffith MD adenocarcinoma (C) [facility] [address] (Primary Dx) [address] [place] [address] [place], [place] [phone] [address] Social History Tobacco Use Types Packs/Day Years [...] Sign Reading Time Taken Comments Blood Pressure 138/78 04/24/2016 10:17 AM VISITOR SERVICES COORDINATOR Pulse 75 04/24/2016 10:17 AM VISITOR SERVICES COORDINATOR Temperature - - Respiratory Rate - - Oxygen Saturation 97% 04/24/2016 10:17 AM VISITOR SERVICES COORDINATOR Inhaled Oxygen Concentration - - Weight - - Height - - Body Mass Index - - documented in this encounter Patient Instructions Patient InstructionsStWaqas haynes MD - 04/24/2016 10:51 AM CST Other tests: PSA up slightly to 6.4 but was this high 5 yrs ago. A: Prostate cancer, slow growing. On Active Surveillance and no evidence of progression. Weak bladder on int cathing. P: every 6mos PSA for now. Rx for cipro for his travels. TOR SERVICES COORDINATOR documented in this encounter Progress Notes Waqas Rodney MD - 04/24/2016 10:43 AM CST Patient Name: ZAID RUTLEDGE Taken: 10/31/2014 Received: 10/31/2014 Reported: 11/01/2014 Physician(s): [...] left apex, needle biopsy - 1. Adenocarcinoma, Maryellen grade 3 + 3 (score 3) 2. 1 of 3 needle cores positive 3. 5% tissue involvement 4. Perineural invasion not identified Date of Service: 04/24/2016 S: This patient returns for recheck of his prostate cancer. He is on and doing well with SIC clean 400 cc and no recent UTIs Going to [facility] in [place]. Since the last visit there has been no other significant problems. There is no fever, significant weight loss or rash. No new urologic medications have been prescribed. No complaints of urinary leakage, hematuria, UTI's. No rashes of the ext genitalia. No intervention by other caregiver for problem. No change in sexual function. O: Filed Vitals: 04/24/16 1017 BP: 138/78 Pulse: 75 Alert and oriented and good spirits. No rashes on the face or trunk. No gynecomastia, no flank masses. Abdomen and flank soft, no rebound or masses. No inguinal masses or hernia. Testis benign, descended. Urethral meatus normal, no peyronies plaques. Anal tone normal, no rectal masses, prostate benign and symmetric. Other tests: PSA up slightly to 6.4 A: Prostate cancer, slow growing. On Active Surveillance and no evidence of progression. Weak bladder on int cathing. P: every 6mos PSA for now. Rx for cipro for his travels. (Please note this document was prepared with voice recognition software likely resulting in unintentional word substitutions. 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
--- OUTSIDE RECORDS SUMMARY | 2022-02-24 12:24 | XMS_ITS | Encounter Summary ---
:1935 Author Organization [facility] Address [address] [address] Care Team Providers Name Role Phone Ramses Cleary MD Primary Care Provider Unavailable Encounter Details Date Type Department Care Team Description 02/25/2016 Orders Only External to Ramses Cleary MD [address] [place] [address] Social History Tobacco Use Types Packs/Day Years [...] Name Priority Date/Time Associated Diagnosis Comme nts DIVISION DIRECTOR 02/25/2016 12:00 AM Resul ts for this CDT procedure are i n the results section. documented in this encounter Results DIVISION DIRECTOR (02/25/2016 12:00 AM CDT) Specimen (Source) Anatomical Location Collection Method / Collectio n Time Received Time / Laterality Volume 02/25/2016 Narrative This result has an attachment that is no t available. Ramses Cleary MD DUMMY/OTHER/AR documented in this encounter Visit Diagnoses Not on filedocumented in this encounter Care Teams Programmer Developer Relationship Specialty Start Date End Date Ramses Cleary MD PCP - General Family Practice 10/21/11 documented as of this encounter
--- OUTSIDE RECORDS SUMMARY | 2022-02-24 12:24 | XMS_ITS | Encounter Summary ---
:1935 Author Organization [facility] Address [address] [address] Care Team Providers Name Role Phone Morgan Bass DO Primary Care Provider Reason for Visit Reason Comments RESULTS, TEST Encounter Details Date Type Department Care Team Description [facility]/02[facility] RES, TEST [facility] anjelica Rose DO [address] [place] [address] [address] [phone] [place], [place] [id number] (Wo rk) Social History Tobacco Use Types [...] documented as of this encounter Nursing Notes Vandana Ignacio, RN - 10/02/2016 12:55 PM CDT Informed pt, per Dr. Bass, of normal CT scan completed today. Dr. Bass has requested follow up with him early next week and they will discuss transfer of care at that time. Pt stated understanding and was transferred to scheduling who assisted him with 40 minute appointment. Vandana Ignacio RN 10/02/2016, 12:56 PM documented in this encounter Plan of Treatment Not on filedocumented as of this encounter Visit Diagnoses Not on filedocumented in this encounter Care Teams Molder Offbearer Relationship Specialty Start Date End Date Morgan Bass DO PCP - General Family Practice 10/02/16 10/25/17 [address] [place] [address] documented as of this encounter
--- OUTSIDE RECORDS SUMMARY | 2022-02-24 12:24 | XMS_ITS | Encounter Summary ---
:1935 Author Organization [facility] Address [address], [place] [address] Care Team Providers Name Role Phone Ramses Cleary MD Primary Care Provider Unavailable Reason for Visit Reason Comments Hearing Aid hearing aid check Encounter Details Date Type Department Care Team Description 04/29/2016 Office Visit [facility] Maryan Edward, Sens orineural hearing [facility] & AU.D. loss of both ears [facility] [address] ([address]x) [address] [place] [place] [address] [phone] Social History Tobacco Use Types Packs/Day Years [...] as of this encounter Patient Instructions Patient InstructionsBMaryan mcclain AU.D. - 04/29/2016 1:19 PM CST Hearing aid check: Thank you for choosing [facility] for your Hearing Aid needs. Please see Hearing Aid record of sales documents provided to you at the time of your hearing aid purchase for serial number and warranty information. For questions regarding your visit or to schedule a return Audiology appointment, please call [phone]. If you require urgent after hours care, please call the Care Line at [phone]. Hearing Preservation: It is important to preserve your hearing. Personal headphone devices should be worn at levels not higher than 50% of the volume range. Hearing protection (ear plugs) should be worn wherever appropriate, including use of lawn mowers, snow blowers, chain saws, power tools, firearms, and while listening to live music. Hearing protection is available from all [facility] locations. Resources: Smoke and Carbon Monoxide detectors: Special smoke and carbon Monoxide alerting devices for individuals with hearing loss can be obtained from [employer]. or www.Soricimed Telephone: Amplified and Caption(ing) telephone products may be available to you at no charge through the [place] Department of [employer] Telephone Equipment Distribution program (AMISH). This is an income based program. The phone number is [phone] (voice) or [phone] (TTY). www.Logoworks.org. [facility] has printed AMISH program information available upon request. OR SALES ADMINISTRATOR documented in this encounter Progress Notes Maryan Edward AU.D. - 04/29/2016 1:19 PM CST SUBJECTIVE Zaid Rutledge was seen today for hearing aid follow up check. He was re-paired with the new remote sudha with hearing aids and compilot. OBJECTIVE Zaid has been mostly satisfied with the hearing aids. The fit has been comfortable. Battery life has been good. Bio-acoustically the aids are functioning WNL. He has been wearing the aids about 13 hours per day. ASSESSMENT Re-pair remote sudha with hearing aids and compilot. PLAN Return when he gets back from his trip for audiogram and hearing aid check. MICHAEL Humphreys 04/29/2016, 1:18 PM OR SALES ADMINISTRATOR documented in this encounter Plan of Treatment Not on filedocumented as of this encounter Visit Diagnoses Diagnosis Sensorineural hearing loss of both ears - Primary Sensorineural hearing loss, bilateral documented in this encounter Care Teams Hot Mill Tin Roller Relationship Specialty Start Date End Date Ramses Cleary MD PCP - General Family Practice 10/21/11 documented as of this encounter
--- OUTSIDE RECORDS SUMMARY | 2022-02-24 12:24 | XMS_ITS | Encounter Summary ---
:1935 Author Organization [employer] Address [address], [place] [address] Care Team Providers Name Role Phone Ramses Cleary MD Primary Care Provider Unavailable Reason for Visit Reason Comments Pre-travel Counseling Encounter Details Date Type Department Care Team Description 03/25/2016 Office Visit [facility] Wandy Goff PA-C Counseling for travel (Primary Dx); Medicine [address] Issue of medical certificate; [address] [place], [place]ive [place] [address] [phone] Social History Tobacco Use Types Packs/Day Years [...] Sign Reading Time Taken Comments Blood Pressure 144/83 03/25/2016 10:45 AM CDT Pulse 68 03/25/2016 10:45 AM CDT Temperature - - Respiratory Rate - - Oxygen Saturation - - Inhaled Oxygen Concentration - - Weight 105.9 kg (233 lb 6.4 oz) 03/25/2016 10:45 AM CDT Height 174 cm (5' 8.5) 03/25/2016 10:45 AM CDT Body Mass Index 34.97 03/25/2016 10:45 AM CDT documented in this encounter Patient Instructions Patient InstructionsWandy Goff PA-C - 03/25/2016 11:43 AM CDT TRAVEL PATIENT INSTRUCTIONS The following are vaccinations you will need to have today and the timeframe for returning to the clinic to complete the series: Travel Immunizations / Orders: Orders Placed This Encounter ??? HEPA ADULT (TODAY) ??? HEPA ADULT (6-12 MO FUTURE ORDER) ??? TYPHOID (TYPHIM , IM, TODAY) ??? INFLUENZA (FLUZONE HIGHDOSE, 65+ YRS) (TODAY) ??? PCV13 (PREVNAR, TODAY) ??? atovaquone-proguanil (MALARONE) 250-100 MG tablet ??? azithromycin (ZITHROMAX) 500 MG tablet Follow up with Primary Care Provider for routine immunizations. Purchase knee high support stockings (20 to 30 mm/hg at the ankle) from your local drug store. A prescription is not needed. ADULTS: To avoid thrombosis when flying, walk, drink fluids and avoid alcohol and caffeine. Recommend using knee high medium compression support stockings for any flight longer than 6 hours. Please call our clinic if you are ill upon return from traveling or if you have questions after yourvisit - [phone]. Some individuals have side effects from vaccines. They can include: -Sore Arm -Redness at the shot site -Warmth at the shot site -Swelling around the shot site -Fever less than 100 degrees You can treat these side effects by using Tylenol, Ibuprofen, or Aleve (adults only). Initially, a cold pack to the shot site might be soothing. Apply for 10-15 minutes every hour. Afterthe first day, a warm pack may be more soothing to the area. You may use your arm as usual. Excessive movement will not make your arm less sore. Call the clinic at [phone] if: -Your fever is greater than 100 degrees -Arm soreness is persistent after 3 days. -Arm is very red, swollen and hot to the touch. If you are bitten by an animal, vigorously scrub the wound for 10 minutes with soap and water. Seek medical attention within 24 hours. If you have had the rabies vaccine series you will need booster shots (usually widely available). If you are unimmunized you will need the vaccine AND Rabies Immune Globulin (RIG). RIG has limited availability in the developing world, and urgent evacuation to a centeris usually needed to obtain it. The sooner the vaccine and RIG are administered the more effective. Rabies is 100% fatal once symptoms set in, and even minor exposures demand full prevention measures. Helpful Web Sites: 1. Centers for Disease Control and Prevention - Travelers' Health: http://wwwnc.cdc.gov/travel 2. U.S. Department of State - Travel: http://www.state.gov/travel/ 3. U.S. Department of State - Smart Traveler Enrollment Program (STEP): https://step.state.gov/step/ It is recommended that you bring the following items along with you during your travels: Make copies of passport; 1 for traveling mis manager, 1 for friends or family residing in the [place] along with US embassy information [place] with the [place] embassy upon arrival at destination or on government internet site if staying more than 3 months These products are available from the [facility] at the [facility]. Medical Kits: PAWS Antimicrobial Hand Wipes Purell Hand americanization teacher CeraLyte Rehydration Salts Bacon SPF 45 Sunblock, 2 oz Water Purification: Endure Antimicrobial Soap Katadyn Water Purification Tablets Micropur Tablets, Water Treatment, 30 Pack Pristine Water Purification System Bottled Water Mosquito Nets Expedition Multi-Use Hanging Mosquito Net Check screens for holes (bring duct tape!) Mosquito Repellents: Ultrathon Lotion 34% Deet [employer] Ultrathon Cream, 2 oz Bacon Permethrin Soak Treatment Kit Bacon Permethrin, 15 oz pump n spray Miscellaneous: Patient given the Web site for the Transportation and Security Administration: Www.StarGen.gov/travelers/index.shtm Adapter Kit Maryan to help your kids take their medicine Money Belt Toilet paper Over the counter items: Mild laxatives such as Metamucil or Senekot Anti-diarrheal such as Imodium AD or Pepto Bismol Antacid Hydrocortisone 1% cream Dramamine Meclezine Tylenol Ibuprofen Cough Remedies Antifungal foot cream or powder Afrin Antihistamines such as Benadryl Eye drops Condoms Plan B (emergency contraception) Yeast infection treatment (Monistat) Please note: For maximum protection from both sunscreen and insect repellant apply sunscreen 30 minutes prior to insect/mosquito repellant. documented in this encounter Progress Notes Wandy Goff PA-C - 03/25/2016 10:40 AM CDT Zaid Rutledge is a 80 y.o. old male seen today with spouse in preparation for travel, leaving on 05/13/2016 and staying for 22 day(s). Detailed itinerary: [facility], [facility], [facility], [place], [facility], [facility], [facility], [place], [place], [facility], [facility], [facility], [facility], [place], [place], [place], [facility], [place], [facility], [facility], [facility]. Patient will be staying on a cruise ship, in a non malarial area and in a malarial area in a combination of urban and rural areas. Reason for travel: tourism. Country of : [place]. They will be traveling with: group. Planned activities during travel: beach visit, driving in car or bus and swimming in the ocean Risk level qualifier: Pre-Arranged or organized travel Past Medical History Diagnosis Date ??? Other [...] and epididymitis ??? GERD (gastroesophageal reflux disease) Patient Active Problem List Diagnosis ??? SPINAL [...] Abnormal urinalysis ??? Dilated aortic root (HRC) specifically, no history of sickle cell, COPD, thrombosis, acute asthma, CHD Active Medical Problems: See pmhx, h/o prostate CA 3 yr ago. TB Skin Test History: not discussed as low risk . ADDITIONAL PAST MEDICAL HISTORY: Allergies: No seasonal or egg allergies Does the patient live or work with anyone with immune deficiency? No Current Outpatient Prescriptions Medication Sig Dispense Refill ??? ALBUterol sulfate hfa 108 (90 BASE) MCG/ACT inhaler Inhale 2 Puffs by mouth every 4 hours as needed for Wheezing. 8.5 g 11 ??? allopurinol (AKA ZYLOPRIM) 100 MG tablet TAKE 1 TABLET BY MOUTH ONCE DAILY 90 Tab 3 ??? aspirin 81 MG tablet Take 1 Tab by mouth daily. ??? dorzolamide (AKA TRUSOPT) 2 % eye drop solution Apply or instill 1 Drop into both eyes two timesa day. ??? fluticasone (AKA FLONASE) 50 MCG/ACT nasal solution Apply or instill 2 Sprays into both nostrilstwo times a day. ??? guaiFENesin (AKA MUCINEX) 600 MG 12 hour release tablet Take 1,200 mg by mouth two times a day. ??? montelukast (SINGULAIR) 10 MG tablet Take 10 mg by mouth every evening. ??? Multiple Vitamins-Minerals (ICAPS AREDS FORMULA OR) 1 Tab two times a day. ??? omeprazole (AKA PRILOSEC) 20 MG capsule TAKE ONE CAPSULE BY MOUTH TWICE DAILY ONE HOUR BEFORE A MEAL 180 Cap 3 No current facility-administered medications for this visit. Allergies as of 03/25/2016 - [place] as Reviewed 03/25/2016 Allergen Reaction Noted ??? Excedrin extra strength [[id number]-ueemwomajayak-rybwoyay] Anaphylaxis 01/16/2016 ??? Banana Other, see comments 08/01/2013 REVIEW OF SYSTEMS: Possible vaccine contraindications: no concerns PE: General: well-nourished, well-developed in no acute distress. There were no vitals taken for this visit. ASSESSMENT AND PLAN: Zaid Rutledge is a 80 y.o. old male whom I had the pleasure of seeing today for counseling for international travel. Counseling on vaccinations for travel: Vaccination status: Complete vaccination records available during visit. Cholera: Not Needed Hepatitis A: will give first dose of vaccine and schedule second dose Hepatitis B: at minimal risk Hib: older than age 5 (not needed) HPV: not applicable or will address w/ pmd Influenza: Needs seasonal vaccine Malian encephalitis: will not be in area where there is risk. Measles/MMR: immune by disease and born prior to 1956 MMRV: see MMR and Varicella Meningococcal: at minimal risk Pneumococcal: pcv 13 given Polio: not indicated Rabies: patient will research if post-exposure treatment is available within 24 hours and return to clinic for series if needed, Discussed management of potential exposures including bites and saliva on open skin, in detail. Clean with soap and water and see MD within 24 hours. and Discussed risks andbenefits of vaccination in detail. Patient declined vaccination, despite recommendation to consider vaccine. Declined due to Patient has minimal concerns regarding disease risk, despite discussion. Rotavirus: Not applicable Tetanus (Td, DTP, Tdap, DTaP): up to date Twinrix: not discussed or has had hep A and B vaccines Typhoid:will give injectable Vi vaccine Varicella: immune by disease Yellow Fever: letter written as medical contraindication and Discussed risks and benefits of vaccination in detail. Patient declined vaccination, despite recommendation to consider vaccine. Declined due to Concerns about risk of vaccination. Zostavax: had vaccination already. Counseling on malaria and other insect borne diseases The patient will need malarial chemoprophylaxis and was counseled on medication choices and side effects. Malarone: daily dose starting 1-2 days before entering area, ending 7 days after leaving. We also discussed general precautions for mosquito, other insect borne and ecto- parasite avoidance. Bring insect repellants (DEET/ultrathon are best). Consider permethrin spray for clothes (inside and out, before trip, lasts 3-4 weeks). Avoid mosquito exposure. Never go barefoot even on the beach. Avoid freshwater swimming. Discussed general insect precautions Discussed sleeping under mosquito nets at night Emailed [employer] report Counseling on traveler's diarrhea We discussed precautions for clean water and food preparation as follows: Recommended bottled or boiled water, including ice, and for tooth brushing., Peel it, boil it, cookit, or forget it., Gave handout on traveler's diarrhea. and Handwashing or use of sanitizers several times daily and prior to eating We discussed medications for management of traveler's diarrhea, once symptomatic: Discussed oral rehydration solution and need to keep hydrated Gave azithromycin prescription Gave handout to patient. Recommended going to clinic, if dehydrated or if high fever and/or blood in stool. Recommended loperamide (Imodium, an antimotility agent), for diarrhea without fever Recommended Pepto-Bismol or other generic bismuth preparation for upset stomach, diarrhea treatment,or diarrhea prevention Counseling on the epidemiology of travel related morbidity and mortality Discussed precautions for accident avoidance: Using seat belts. Avoiding sex, tatooing, piercing. Discussed flying: ADULTS: to avoid thrombosis, walk, drink fluids, avoid alcohol and caffeine. Discussed health concerns overseas: Gave hand-out on traveler's medical insurance. Gave hand-out on first aid kit. Emailed copy of [employer] country print-out. Discussed safety and security: Recommended making copies of passport; 1 for traveling mis manager, 1 for friends or family residing in the [place] along with [place] embassy information Other counseling for travel Recommended checking medicine cabinet - looking for any meds normally used at home for common illnesses. Provided education regarding sun exposure and use of high SPF sunscreen. Provided information regarding safer sex. High altitude sickness: Not at risk. Motion sickness: Not a problem for this patient Jet lag: Not a problem for this patient. HIV Post Exposure : Not Applicable Prednisone burst given for acute asthma exaerbation. FOLLOW-UP PLAN: Please see after visit summary for details regarding the patient's planned vaccination schedule. Forany labs ordered, we will contact the patient with a plan for further care. The patient was also encouraged to be seen for any post- travel illness, or with future travel plans. The total time spent during this visit for individual counseling was 30-44 minutes [43384], all of which was spent in counseling time, including reviewing the past medical and vaccination history, the travel itinerary, the risks of travel and suggested precautions, and the recommended vaccines and medicines with their side effects -- all for upcoming travel. October CASSANDRA Goff documented in this encounter Plan of Treatment Not on filedocumented as of this encounter Visit Diagnoses Diagnosis Counseling for travel - Primary Other specified counseling Issue of medical certificate Other issue of medical certificates Preventive medication therapy needed documented in this encounter Care Teams Jaw Skinner Relationship Specialty Start Date End Date Ramses Cleary MD PCP - General Family Practice 10/21/11 documented as of this encounter
--- OUTSIDE RECORDS SUMMARY | 2022-02-24 12:24 | XMS_ITS | Encounter Summary ---
:1935 Author Organization [facility] Address [address] [address] Care Team Providers Name Role Phone Ramses Cleary MD Primary Care Provider Unavailable Encounter Details Date Type Department Care Team Description 08/05/2016 Refill Order [facility] Alexei Cleary MD [facility] [address] [place] [address] [place] [address] Social History Tobacco Use Types Packs/Day Years [...] documented as of this encounter Progress Notes Shruthi Alcantar - 08/08/2016 12:30 PM CST per standing order Letter sent for scheduling needs. Shruthi Alcantar 08/08/2016, 12:30 PM ING MANAGER documented in this encounter Nursing Notes Interface, Out Collax Prov Query - 08/05/2016 9:57 AM CST ORDER THE FOLLOWING: - ALANINE AMINOTRANSFERASE (ALT): Pended to encounter. SCHEDULE THE FOLLOWING: - OFFICE VISIT BY: 10/13/2016 (Coming due as of 10/13/2016 for multiple medications including allopurinol (AKA ZYLOPRIM) 100 MG tablet) - ALANINE AMINOTRANSFERASE (ALT) BY: 10/13/2016 (Coming due as of 10/13/2016 for allopurinol (AKA ZYLOPRIM) 100 MG tablet) - LAST QUALIFYING VISIT IN [facility]: 10/19/2015 - NEXT SCHEDULED VISIT: None - NEXT LAB APPOINTMENT: None Powered by [employer], Reference: [id number], 08/05/2016 9:57:08 AM VENDING MANAGER, Pool: PETER JEFFERY RN ([id number]) ING MANAGER documented in this encounter Plan of Treatment Not on filedocumented as of this encounter Results ALT (SGPT) (10/28/2016 2:29 PM CDT) athologist Signature ALT (SGPT) 31 0 - 55 U/L [facility] Specimen Anatomical Collection Method Collection Time Receive d Time (Source) Location / / Volume Laterality 10/28/2016 2:29 PM 7 2:34 CDT PM CDT Narrative [facility] - 10/28/2016 4:22 PM CD T Performed at [facility], [address] [place], [place] [id number] Ramses Cleary MD LAB_1 Performing Organization Address City/State/ZIP Code Phon e Number [address] [address] documented in this encounter Visit Diagnoses Diagnosis Encounter for long-term (current) use of medications - Primary Encounter for long-term (current) use of other medications Gait disorder Abnormality of gait Hydrocephalus, acquired (HRC) Obstructive hydrocephalus Encounter for long-term (current) use of medications Encounter for long-term (current) use of other medications Vibration sensory loss Disturbance of skin sensation Vertebrobasilar artery syndrome PROSTATE CANCER Malignant neoplasm of prostate documented in this encounter Care Teams New Vehicle Sales Consultant Relationship Specialty Start Date End Date Ramses Cleary MD PCP - General Family Practice 10/21/11 documented as of this encounter
--- OUTSIDE RECORDS SUMMARY | 2022-02-24 12:24 | XMS_ITS | Encounter Summary ---
:1935 Author Organization [facility] Address [address] [address] Care Team Providers Name Role Phone No Primary/Referring, Phy Primary Care Provider Unavailable Encounter Details Date Type Department Care Team Description 03/25/2016 Correspondence [facility] Wandy Goff PA-C [facility]EL [facility] Tropical Medicine [address] AGREEMENT WAIVER [address] [place] [phone] Social History Tobacco Use Types Packs/Day Years [...] filedocumented in this encounter Care Teams Marketing Regional Consultant Relationship Specialty Start Date End Date No Primary/Referring, Phy PCP - General 12/11/21 documented as of this encounter
--- OUTSIDE RECORDS SUMMARY | 2022-02-24 12:24 | XMS_ITS | Encounter Summary ---
:1935 Author Organization [facility] Address [address], [place] [address] Care Team Providers Name Role Phone Ramses Cleary MD Primary Care Provider Unavailable Reason for Visit Reason Comments Refill omeprazole Encounter Details Date Type Department Care Team Description 08/18/2016 Refill [facility] Ramses Cleary, Refill (omeprazole) [facility] Pr anjelica MURRAY [address] [place] [address] [address] [phone] [place] [address] Social History Tobacco Use Types Packs/Day Years [...] encounter Nursing Notes Shauna Dawson RN - 08/19/2016 12:32 PM CST Omeprazole refill request denied as duplicate. Pharmacy should have Rx from 08/05; receipt confirmed on med list. Shauna Dawson RN 08/19/2016, 12:32 PM RVISOR TANK CLEANING Interface, Out NeST Group Query - 08/18/2016 10:48 AM CST omeprazole (PRILOSEC) 20 MG capsule [Pharmacy Med Name: OMEPRAZOLE 20MG CAPSULES] Protocol: Gastroenterology: Antiulcer - Proton Pump Inhibitors -> Refill x 3 months (until due for an office visit) Last qualifying visit: 10/19/2015 (in [facility]) Next scheduled visit: None Last ordered by RAMSES CLEARY E: 08/05/2016 (13 days ago) QTY: 180, Refills: 0, Sig: take one capsule by mouth twice daily one hour before a meal (unchanged) Age: 81 Powered by [employer], Reference: [id number], 08/18/2016 10:48:33 AM SUPERVISOR TANK CLEANING, Pool: PETER RINCONILL EULOGIO ([id number]) [employer]OR [employer] CLEANING documented in this encounter Plan of Treatment Not on filedocumented as of this encounter Visit Diagnoses Not on filedocumented in this encounter Care Teams Alley Cleaner Relationship Specialty Start Date End Date Ramses Cleary MD PCP - General Family Practice 10/21/11 documented as of this encounter
--- OUTSIDE RECORDS SUMMARY | 2022-02-24 12:24 | XMS_ITS | Encounter Summary ---
:1935 Author Organization [employer] Address [address] [address] Care Team Providers Name Role Phone No Primary/Referring, [place] Primary Care Provider Unavailable Encounter Details Date Type Department Care Team Description 10/08/2016 Scanned History [facility] SAFETY AND Imaging [facility], [address] [phone] Social History Tobacco Use Types Packs/Day Years [...] on filedocumented in this encounter Care Teams Barber Relationship Specialty Start Date End Date No Primary/Referring, Phy PCP - General 12/11/21 documented as of this encounter
--- OUTSIDE RECORDS SUMMARY | 2022-02-24 12:24 | XMS_ITS | Encounter Summary ---
:1935 Author Organization [employer] Address [address] [place] [address] Care Team Providers Name Role Phone Morgan Bass DO Primary Care Provider [phone] Reason for Visit Procedure/Equipment (Routine) - Closed Specialty Diagnoses / Procedures Referred By Contact Refer red To Contact Radiology [place] Diagnoses Gait instability Morgan Bass Radiology Procedures MR Brain W/WO IV Cont MR Brain WO IV Cont DO [place] [address] [place] [address] [address] [place] [address] Referral ID Status Reason Start Date Expiration Date Visits Requ ested Visits Authorized [id number] Closed 10/06/2016 01/05/2018 1 1 Encounter Details Date Type Department Care Team Description 10/08/2016 Imaging [facility] Morgan Bass Gait in stability; Radiology MRI DO [place] [facility] [address] [place] [address] [place] [address] [phone] [place], [place] [id number] (Wo rk) Social History Tobacco Use Types [...] documented as of this encounter Progress Notes Michelle Moreira CMA - 10/09/2016 9:04 AM CDT Quick Note: I left a message for patient to call back, see telephone encounter for details. Michelle Moreira CMA. 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 I would see neurology on Thursday as planned. documented in this encounter Plan of Treatment Not on filedocumented as of this encounter Procedures Procedure Name Priority Date/Time Associated Diagnosis Comme nts MR BRAIN W/WO IV Routine 10/08/2016 9:03 AM Gait instability R esults for this CONT CDT procedure are i n the results section. BASIC METABOLIC STAT 10/08/2016 7:48 AM [facility] Res ults for this PANEL CDT procedure are i n the results section. documented in this encounter Results MR Brain W/WO IV Cont (10/08/2016 9:03 AM CDT) Anatomical Region Laterality Modality Head Magnetic Resonance Specimen (Source) Anatomical Collection Method Collection Time Re ceived Time Location / / Volume Laterality 10/08/2016 9:03 AM CDT Narrative 10/09/2016 5:18 AM CDT HEAD MRI WITHOUT AND WITH IV CONTRAST 10/08/2016 9:03 AM INDICATION: Gait disturbance. TECHNIQUE: Head MRI without and with int ravenous contrast. CONTRAST: 10 mL Gadavist. COMPARISON: 10/02/2016 CT. FINDINGS: There is disproportionate enla rgement of the lateral and third ventricles and crowding of the cerebral sulci over the parasagittal convexities. The sylvian fissures are al so prominent. There is underlying mild to moderate cerebral and cerebellar volume loss. There is no restricted diffusion. There is mild to m oderate T2 signal change in the supratentorial white matter. No intracra nial mass or abnormal enhancement. The major intracranial vascular flow voi ds are intact to the skull base. The orbits, paranasal sinuses and soft t issues at the skull base are grossly unremarkable. The pituitary and pineal regions are unremarkable. CONCLUSION: 1. ??Disproportionate enlargement of the lateral and third ventricles as well as secondary findings which in the correct clinical setting would raise the possibility of a normal-pressu re/communicating hydrocephalus. 2. ??Underlying mild to moderate cerebra l volume loss and presumed chronic small vessel ischemic changes. 3. ??No recent infarct, intracranial mas s, abnormal enhancement or evidence of intracranial hemorrhage. Procedure Note Gael Blanco MD - 10/09/2016Formatt ing of this note might be different from the original. HEAD MRI WITHOUT AND WITH IV CONTRAST 10/08/2016 9:03 AM INDICATION: Gait disturbance. TECHNIQUE: Head MRI without and with int ravenous contrast. CONTRAST: 10 mL Gadavist. COMPARISON: 10/02/2016 CT. FINDINGS: There is disproportionate enla rgement of the lateral and third ventricles and crowding of the cerebral sulci over the parasagittal convexities. The sylvian fissures are al so prominent. There is underlying mild to moderate cerebral and cerebellar volume loss. There is no restricted diffusion. There is mild to m oderate T2 signal change in the supratentorial white matter. No intracra nial mass or abnormal enhancement. The major intracranial vascular flow voi ds are intact to the skull base. The orbits, paranasal sinuses and soft t issues at the skull base are grossly unremarkable. The pituitary and pineal regions are unremarkable. CONCLUSION: 1. Disproportionate enlargement of the l ateral and third ventricles as well as secondary findings which in the correct clinical setting would raise the possibility of a normal-pressu re/communicating hydrocephalus. 2. Underlying mild to moderate cerebral volume loss and presumed chronic small vessel ischemic changes. 3. No recent infarct, intracranial mass, abnormal enhancement or evidence of intracranial hemorrhage. Morgan Bass DO RAD MRI Basic Metabolic Panel (10/08/2016 7:48 AM CDT) athologist Signature Sodium 142 136 - 145 [facility]L [facility] Potassium 4.1 3.5 - 5.1 [facility] Chloride 108 98 - 109 [facility] CO2 23 20 - 29 [facility] Anion Gap 11 7 - 16 [facility] (calc.) mmol/L [facility] Glucose 104 70 - 180 [facility] mg/dl [facility] Calcium 9.3 8.4 - 10.2 [facility] mg/dl [facility] BUN 18 7 - 26 [facility] mg/dl [facility] Comment: PLEASE NOTE CHANGE IN REFERENCE RANGE Creatinine 1.08 0.73 - 1.18 mg/dl [facility] Comment: PLEASE NOTE CHANGE IN REFERENCE RANGE GFR, Estimated >60 >60 ml/min/1.73m2 [facility] GFR, Est., If Black >60 >60 ml/min/1.73m2 [facility] Specimen Anatomical Collection Method Collection Time Receive d Time (Source) Location / / Volume Laterality 10/08/2016 7:48 AM 7 7:49 CDT AM CDT Narrative [facility] - 10/08/2016 8:21 AM CD T Performed at [facility], [address] [place] [id number] Morgan Bass DO LAB_1 Performing Organization Address City/State/ZIP Code Phon e Number [address] [address] documented in this encounter Visit Diagnoses Diagnosis Gait instability Abnormality of gait [facility] Malignant neoplasm of prostate documented in this encounter Administered Medications Inactive Administered Medications - up to 3 most recent administrations Medication Order MAR Action Action Date Dose Rate Site gadobutrol (GADAVIST) 1 MMOL/ML Given 10/08/2016 9:04 AM CDT 10 mL injection 10 mL 10 mL, Intravenous, ONCE (NON-SCHEDULED), Starting on Thu10/08/16 at 0904, Until Thu10/08/16 at 0904, For 1 dose documented in this encounter Care Teams Shop Manager Relationship Specialty Start Date End Date Morgan Bass DO PCP - General Family Practice 10/02/16 10/25/17 [address] [place] [address] documented as of this encounter
--- OUTSIDE RECORDS SUMMARY | 2022-02-24 12:24 | XMS_ITS | Encounter Summary ---
:1935 Author Organization [employer] Address [address], [place] [address] Care Team Providers Name Role Phone Morgan Bass DO Primary Care Provider [phone] Reason for Visit Procedure/Equipment (Routine) - Closed Specialty Diagnoses / Procedures Referred By Contact Refer red To Contact Diagnoses [place] Morgan Bass DO Procedures CT Head WO IV Cont [address] [place], [place] [address] Referral ID Status Reason Start Date Expiration Date Visits Requ ested Visits Authorized [id number] Closed 10/02/2016 01/01/2018 1 1 Encounter Details Date Type Department Care Team Description 10/02/2016 Imaging [facility] [place], Morgan Rose DO [place] [facility] [address] [facility] [address] [place] [address] [place] [address] [phone] Social History Tobacco Use Types Packs/Day Years [...] Priority Date/Time Associated Diagnosis Comme nts CT HEAD WO IV CONT Routine 10/02/2016 11:57 AM [place] Re sults for this CDT procedure are i n the results section. documented in this encounter Results CT Head WO IV Cont (10/02/2016 11:57 AM CDT) Anatomical Region Laterality Modality Head Computed Tomography Specimen (Source) Anatomical Collection Method Collection Time Re ceived Time Location / / Volume Laterality 10/02/2016 11:57 AM CDT Narrative 10/02/2016 1:05 PM CDT [facility] CT HEAD WO IV CONT 10/02/2016 11:57 AM INDICATION: Double vision with gait inst ability. TECHNIQUE: Routine. Dose reduction techn iques were used. CONTRAST: None. COMPARISON: ??None. FINDINGS: No intracranial hemorrhage, ex traaxial collection, mass effect or CT evidence of acute infarct. 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 Mild scattered chroni c small vessel ischemic change. Overall mild diffuse intraparenchymal vo lume loss, with ventriculomegaly disproportionate to the degree of volume loss. In the appropriate clinical setting, these findings can be seen in n ormal-pressure hydrocephalus. Osseous structures are intact. Mild muco haresh thickening in the ethmoid air cells. Postoperative changes to the bila teral lenses. CONCLUSION: 1. ??Ventricular prominence greater than expected for the degree of mild diffuse intraparenchymal volume loss. In the appropriate clinical setting, this appearance can be seen in normal-pr essure hydrocephalus. 2. 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 Findings and impression discussed with Tab Bass by phone at 1240 hours on 10/02/2016. ?? Procedure Note George Gonzalez MD - 10/02/2016Formjosé miguel sanchez of this note might be different from the original. [facility] CT HEAD WO IV CONT 10/02/2016 11:57 AM INDICATION: Double vision with gait inst ability. TECHNIQUE: Routine. Dose reduction techn iques were used. CONTRAST: None. COMPARISON: None. FINDINGS: No intracranial hemorrhage, ex traaxial collection, mass effect or CT evidence of acute infarct. 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 Mild scattered chroni c small vessel ischemic change. Overall mild diffuse intraparenchymal vo lume loss, with ventriculomegaly disproportionate to the degree of volume loss. In the appropriate clinical setting, these findings can be seen in n ormal-pressure hydrocephalus. Osseous structures are intact. Mild muco haresh thickening in the ethmoid air cells. Postoperative changes to the bila teral lenses. CONCLUSION: 1. Ventricular prominence greater than e xpected for the degree of mild diffuse intraparenchymal volume loss. In the appropriate clinical setting, this appearance can be seen in normal-pr essure hydrocephalus. 2. 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 Findings and impression discussed with Tab Bass by phone at 1240 hours on 10/02/2016. Morgan Bass DO RAD CT documented in this encounter Visit Diagnoses Diagnosis [place] Dizziness and giddiness documented in this encounter Care Teams Gallery [employer] Museum Technician Relationship Specialty Start Date End Date Morgan Bass DO PCP - General Family Practice 10/02/16 10/25/17 [address] [place] [address] documented as of this encounter
--- OUTSIDE RECORDS SUMMARY | 2022-02-24 12:24 | XMS_ITS | Encounter Summary ---
:1935 Author Organization [employer] Address [address] [place] [address] Care Team Providers Name Role Phone Ramsse Cleary MD Primary Care Provider Unavailable Reason for Referral Consult/Transfer Care (Routine) - Closed Specialty Diagnoses / Procedures Referred By Contact Refer red To Contact Filemon Woods MD [address] [place] [address] Referral ID Status Reason Start Date Expiration Date Visits Requ ested Visits Authorized [id number] Closed 01/17/2016 02/17/2016 1 1 Scheduling Instructions Your provider has recommended an appoint ment in primary care at [facility]. A sand conditioner machine will contact you to a ssist you in setting up this appointment, or you may call [phone] to schedule yo ur appointment. Procedure/Equipment (Routine) - Closed Specialty Diagnoses / Procedures Referred By Contact Refer red To Contact Cardiology Filemon Woods, [facility] [address] [facility] TheoInvasive Non-Invasive [address] [place] [address] [place] [address] Referral ID Status Reason Start Date Expiration Date Visits Requ ested Visits Authorized [id number] Closed 01/17/2016 04/17/2017 1 1 Scheduling Instructions Your provider has recommended and appoin tment with the [facility]. You may call [phone] to schedule your appoi ntment. If you prefer, a sand conditioner machine will contact you within the next 3 business d ays to assist you in setting up this appointment. We sugg est you call your health insurance company about your coverage and benefits for thi s appointment. Reason for Visit Reason Comments DIFFICULTY BREATHING--ED LIGHTHEADED--ED Encounter Details Date Type Department Care Team Description 01/16/2016 - Emergency [facility] Isidra Metcalf MD [address] [place] [address] Dizziness (Primary Dx); 01/17/2016 [address] [facility] Filemon Woods MD [address] [place], [place] [id number] Abnormal urinalysis; Del Nicholson MD [address] [place] [address] Unspecified asthma(493.90) ([facility]); [place], [place] Other glaucom a of both eyes; [address] Primary prostate adenocarcin amina ([facility]); [phone] Dehydration; Syncope, unspec ified syncope type; Urinary tract i nfection, site not specified; Renal insuffici ency; Gout, unspecifi ed cause, unspecified chronicity, unspecified site; Glaucoma, unspe cified glaucoma??, unspecified laterality; Gastroesophagea l reflux disease, esophagitis presence not specified; Personal histor y of nicotine dependence; Personal histor y of malignant neoplasm of prostate Social History Tobacco Use Types Packs/Day Years [...] Sign Reading Time Taken Comments Blood Pressure 156/97 01/17/2016 3:30 PM CDT Pulse 71 01/17/2016 3:30 PM CDT Temperature 36.4 ??C (97.6 ??F) 01/17/2016 3:30 PM CDT Respiratory Rate 20 01/17/2016 3:30 PM CDT Oxygen Saturation 97% 01/17/2016 3:30 PM CDT Inhaled Oxygen Concentration - - Weight 107.3 kg (236 lb 8 oz) 01/16/2016 8:54 PM CDT Height 175.3 cm (5' 9) 01/16/2016 8:54 PM CDT Body Mass Index 34.92 01/16/2016 8:54 PM CDT documented in this encounter Discharge Summaries Filemon Woods MD - 01/17/2016 4:57 PM CDT [facility] Discharge Summary Name: Zaid Rutledge : 1935 Admission Date: 01/16/2016 Date of Service: 01/17/2016 Discharge Date: 01/17/2016 Service: Hospital Medicine Author: Filemon Woods MD Discharge diagnoses: Principal Problem: Dizziness - suspect presyncope, possibly secondary to rhythm disturbance Active Problems: Unspecified asthma(493.90) Asymptomatic bacteriuria due to intermittent self catheterization 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 Evaluation of event monitor results 2. Consider rehospitalization if he has further episodes. He could perform cardiac stress test in that case, although his symptoms this time were not suggestive of coronary ischemia 3. Yearly surveillance regarding dilated aortic root - see imaging studies below Hospital Course: Mr. Rutledge was admitted to the hospital after an event in which she had epigastric discomfort, diaphoresis, and dizziness or lightheadedness. This lasted approximately 10 minutes with rapid onset and offset. He had had a similar episode a couple of days before but that one was much more short-lived. Hewas admitted to the hospital. He had no further symptoms. Telemetry was normal. Serial measurements of cardiac enzymes were normal. He was discharged home with a referral for a 30-day event monitor to look for a possible intermittent dysrhythmia. UA was abnormal and UCx positive, but he had no urinary symptoms and has been known in the past to have urinary colonization thought to be due to intermittent self-catheterization. We did not start antibiotic therapy. He received one dose of antibiotics in the ED. Code Status: Full code Discharge Medications: Current Discharge Medication List START taking these medications Details aspirin 81 MG tablet Take 1 Tab by mouth daily. CONTINUE these medications which have NOT CHANGED Details ALBUterol sulfate hfa 108 (90 BASE) MCG/ACT inhaler Inhale 2 Puffs by mouth every 4 hours as needed for Wheezing. Qty: 8.5 g, Refills: 11 Comments: Based on formulary coverage, pharmacy may interchange between Proair HFA, Ventolin HFA and Proventil HFA inhalers and update dispensed quantity accordingly allopurinol (AKA ZYLOPRIM) 100 MG tablet TAKE 1 TABLET BY MOUTH ONCE DAILY Qty: 90 Tab, Refills: 3 dorzolamide (AKA TRUSOPT) 2 % eye drop solution Apply or instill 1 Drop into both eyes two times a day. fluticasone (AKA FLONASE) 50 MCG/ACT nasal solution Apply or instill 2 Sprays into both nostrils twotimes a day. guaiFENesin (AKA MUCINEX) 600 MG 12 hour release tablet Take 1,200 mg by mouth two times a day. montelukast (SINGULAIR) 10 MG tablet Take 10 mg by mouth every evening. Multiple Vitamins-Minerals (ICAPS AREDS FORMULA OR) 1 Tab two times a day. omeprazole (AKA PRILOSEC) 20 MG capsule TAKE ONE CAPSULE BY MOUTH TWICE DAILY ONE HOUR BEFORE A MEAL Qty: 180 Cap, Refills: 3 STOP taking these medications budesonide-formoterol (SYMBICORT) 160-4.5 MCG/ACT inhaler Comments: Reason for Stopping: docusate sodium (AKA COLACE) 100 MG capsule Comments: Reason for Stopping: gabapentin (AKA NEURONTIN) 300 MG capsule Comments: Reason for Stopping: hydrOXYzine pamoate (VISTARIL) 25 MG capsule Comments: Reason for Stopping: oxyCODONE-acetaminophen (AKA PERCOCET) 5-325 MG tablet Comments: Reason for Stopping: sennosides-docusate sodium (AKA SENNA-S,SENNA PLUS) 8.6-50 MG tablet Comments: Reason for Stopping: Important Diagnostic Studies: Labs: Recent Labs 01/16/16 1745 WBC 7.6 HGB 15.7 PLTS 202 Recent Labs 01/16/16 1745 SODIUM 142 K 3.9 CREATININE 1.38* CA 8.6 Recent Labs 01/16/16 1745 01/16/16 2107 TROP <0.02 <0.02 Imaging (from the relevant original reports): Echo: Normal LV size and systolic function. Mild concentric LVH. Normal RV size and function. Mild LA dilatation. Mild aortic regurgitation. Mildly dilated aortic root. (3.9cm) IVC is normal in size and responsive to inspiration indicating normal RA pressure. Consultations: None History of Present Illness: (From the H&P) Mr. Rutledge is a 80 y/o M with a medical history significant for prostate CA who straight catheterizes, asthma, and glaucoma who presents to the ED with an acute episode of lightheadedness/dizziness. Patient had worked in the AM and enjoyed lunch out with his . They had returned home, were sitting down watching TV and reading, when all of a sudden patient became so incredibly dizzy and lightheaded. Patient felt like if he had stood up he would have collapsed, so he put his head between his legs,but this didn't help anything. Then patient became very warm/sweaty/clammy, nauseated, and slightly SOB. He estimates the symptoms persisting for quite awhile, as least a couple of minutes, before resolving. The nausea and clamminess persisted almost until arriving in the ED. Patient notes a very similar episode occurred 2 days prior, this time shortly in duration, and occurring while he was straightcatheterizing. He has been drinking lots of water and doesn't think he was dehydrated, but notes hisurine was darker than normal. He typically has burning with urination when he has a UTI and denies any recent urinary symptoms. In addition to the above, with the onset of lightheadedness/dizziness symptoms patient also felt a very minor upper abdominal discomfort, like a dull/ache. Came on immediately following the dizziness and resolved quickly without intervention. Discharge Instructions: Event Monitor Referral Referral Priority: Routine Referral Type: Procedure/Equipment Number of Visits Requested: 1 Primary Care Referral Priority: Routine Referral Type: Consult/Transfer Care Number of Visits Requested: 1 Expiration Date: 02/17/16 Discharge Diagnosis Discharge Diagnosis: Principal Problem: Dizziness Active Problems: Unspecified asthma(493.90) ([facility]) Primary prostate adenocarcinoma ([facility]) Glaucoma GERD (gastroesophageal reflux disease) Abnormal urinalysis Regular Diet Total time of discharge: > 30 min. I evaluated the patient on the day of discharge, discussed this information with the patient, and answered all questions. Fidencio Woods MD 01/17/2016 4:57 PM [facility] Medicine [phone] (pager) CC: Ramses Cleary MD documented in this encounter Discharge Instructions Discharge InstructionsYesenia Curran RN - 01/17/2016 4:49 PM CDT Contact Information [address] [address] Main or [phone] Same Day Surgery, M-F 7am to 5pm: [phone] Clinic Phone Numbers [facility] [phone] [facility] [phone] [facility] [phone] [facility] [phone] [facility] [phone] Emergency & Urgently Needed Care: For emergencies call 911 and/or get medical help right away. If you are a [facility] member and have medical needs after clinic hours you may call the [facility] [phone] or . Healthy Habits - Move! Aim for fitness [...] moderation - Choose healthy sources of fat: [place], peanut or canola oils, 1/4 cup nuts [...] doctor/pharmacist if it is safe to take [id number] drugs or herbs with your prescribed medicine. [...] further assistance after your discharge, please contact [phone] or visit [email or web address] [facility] [employer] can offer further [...] if you experience any of these symptoms: ?? Sudden weakness or numbness of the face, arm or leg, especially on one side of the body ?? Sudden confusion, trouble speaking or understanding ?? Sudden trouble seeing in one or both eyes ?? Sudden trouble walking, dizziness, loss of balance or coordination ?? Sudden, severe headaches with no known cause [...] weight will also be followed by the Dish Technician when you go in for your treatment. We hope you had a positive experience and that you can definitely recommend [facility] to your family and friends. AttachmentsThe following attachments cannot be sent through Care Everywhere. DEHYDRATION (PUERTO RICAN)DIZZINESS (PUERTO RICAN)ASTHMA: ADULT (PUERTO RICAN)documented in this encounter Medications at Time of Discharge Medication Sig Dispensed Refills Start Date End Date ALBUterol sulfate hfa Inhale 2 Puffs by 8.5 g 11 014 108 (90 BASE) MCG/ACT mouth every 4 hours as inhaler needed for Wheezing. dorzolamide (AKA [The details of the 0 TRUSOPT) 2 % eye drop medication are not solutionIndications: available because Increased Intraocular there are pending Pressure changes by a home health clinician.] fluticasone (AKA Place 1 [place] into 0 08/03/2013 FLONASE) 50 MCG/ACT both [...] supplement changes by a home health clinician.] allopurinol (AKA TAKE 1 TABLET BY MOUTH 90 Tab 3 016 11/02/2016 ZYLOPRIM) 100 MG tablet ONCE DAILY aspirin 81 MG tablet Take 1 Tab by mouth 0 201511/26/2016 daily. guaiFENesin (AKA Take 1,200 mg by mouth 0 11/09/2016 MUCINEX) 600 MG 12 hour two times a day. release tablet Reported on 10/13/2016 omeprazole (AKA TAKE ONE CAPSULE BY 180 Cap 3 08/13/2015 08/05/2016 PRILOSEC) 20 MG capsule MOUTH TWICE DAILY ONE HOUR BEFORE A MEAL documented as of this encounter Procedure Notes Isidra Metcalf MD - 01/16/2016 7:24 PM CDTAssociated Order(s): POC US EXPANDED IVC [facility] Point of Care Ultrasound Interpretation POC US EXPANDED IVC Date/Time: 01/16/2016 7:24 PM Performed by: ISIDRA METCALF Authorized by: ISIDRA METCALF Point of Care Ultrasound: Expanded IVC Indication: Syncope Window: Very challenging windows, Parasternal Long [place], Apical 4-Chamber, IVC longitudinal inspiration and IVC longitudinal expiration Findings: Grossly Normal Exam, Good Global Function and No Pericardial Effusion Impression: Grossly Normal Also, no obvious AAA. Isidra Metcalf MD documented in this encounter OR Notes H&P - Del Langston MD - 01/16/2016 7:[address] [facility] Medicine History and Physical Assessment and Plan: # Lightheadedness/dizziness - Unclear by history, arrhythmia seems most likely based on reported symptoms. Will obtain TSH w/ reflex, monitor on telemetry, and obtain echo in the AM. Trend troponins and consider stress test if abnormal. While patient does appear dehydrated based on labs and UA, seems unlikely to be the culprit for presenting symptoms. # Abnormal UA - Without corresponding symptoms suggestive of UTI, received levofloxacin in the ED. Will hold on further abx for now while awaiting UCx. # Dehydration - Based on labs and UA, give IVF overnight and recheck in the AM. # Asthma - Asymptomatic, continue PRN albuterol inhaler. Patient to resume montelukast on discharge. # History of prostate CA - Requiring straight cath, continue PRN. # Glaucoma - Continue eye drops. FEN - Maintenance IVF overnight, monitor/treat electrolytes PRN, regular diet Proph - Low risk, no pharm DVT proph Code Status - Full Code Del Langston MD __ Date of Service: 01/16/2016 Chief Complaint: Lightheadedness/dizziness History of present illness: Mr. Rutledge is a 80 y/o M with a medical history significant for prostate CA who straight catheterizes, asthma, and glaucoma who presents to the ED with an acute episode of lightheadedness/dizziness. Patient had worked in the AM and enjoyed lunch out with his . They had returned home, were sitting down watching TV and reading, when all of a sudden patient became so incredibly dizzy and lightheaded. Patient felt like if he had stood up he would have collapsed, so he put his head between his legs, but this didn't help anything. Then patient became very warm/sweaty/clammy, nauseated, and slightly SOB. He estimates the symptoms persisting for quite awhile, as least a couple of minutes, before resolving. The nausea and clamminess persisted almost until arriving in the ED. Patient notes a very similar episode occurred 2 days prior, this time shortly in duration, and occurring while he was straight catheterizing. He has been drinking lots of water and doesn't think he was dehydrated, but notes his urine was darker than normal. He typically has burning with urination when he has a UTI and denies any recent urinary symptoms. In addition to the above, with the onset of lightheadedness/dizziness symptoms patient also felt a very minor upper abdominal discomfort, like a dull/ache. Came on immediately following the dizziness and resolved quickly without intervention. Past Medical History: Past Medical History Diagnosis Date ??? Other [...] and epididymitis ??? GERD (gastroesophageal reflux disease) Past Surgical History: Past Surgical History Procedure Laterality Date ??? [...] l4-5 lateral recess decompression (left 10/29/2015 Family History: Confirmed with patient. Family History Problem Relation Age of Onset [...] Hx of HX, FAMILY, CARDIOVASCULAR * Social History: Obtained at this visit by admitting provider: Lives in [place] with his . 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 Social History Social History ??? Marital Status: [...] Belt Yes 100 % Social History Narrative Merged History Encounter [employer]. [employer]. Moving to [place] in . [employer]. Moving to [place] in . Current outpatient medications Current Outpatient Prescriptions Medication Sig Dispense Refill ??? ALBUterol sulfate hfa 108 (90 BASE) MCG/ACT inhaler Inhale 2 Puffs by mouth every 4 hours as needed for Wheezing. 8.5 g 11 ??? allopurinol (AKA ZYLOPRIM) 100 MG tablet TAKE 1 TABLET BY MOUTH ONCE DAILY 90 Tab 3 ??? dorzolamide (AKA TRUSOPT) 2 % eye drop solution Apply or instill 1 Drop into both eyes two timesa day. ??? fluticasone (AKA FLONASE) 50 MCG/ACT nasal solution Apply or instill 2 Sprays into both nostrilstwo times a day. ??? guaiFENesin (AKA MUCINEX) 600 MG 12 hour release tablet Take 1,200 mg by mouth two times a day. ??? Multiple Vitamins-Minerals (ICAPS AREDS FORMULA OR) 1 Tab two times a day. ??? omeprazole (AKA PRILOSEC) 20 MG capsule TAKE ONE CAPSULE BY MOUTH TWICE DAILY ONE HOUR BEFORE A MEAL 180 Cap 3 Allergies: Allergies Allergen Reactions ??? Banana Other, see comments Throat swelling, wheezing Also avoids melons ??? Excedrin [Diphenhydramine] Breathing Difficulty Review of Systems: Complete ROS obtained and negative aside from that mentioned in the HPI. Physical Examination: BP 149/87 mmHg Pulse 75 Temp(Src) 97.6 ??F (36.4 ??C) (Oral) Resp 20 Ht 5' 9 (1.753 m) Wt104.327 kg (230 lb) BMI 33.95 kg/m2 SpO2 96% General: Alert, conversant in complete sentences, in no acute distress Head: Atraumatic Eyes: PERRL direct/consensual, sclera white/anicteric ENT: Oral mucosa pink/moist without lesions/erythema/exudates Neck: No LAD palpated Chest: Clear to auscultation bilaterally, no crackles/wheezes, adequate inspiratory effort Cardiovascular: RRR, nl S1/S2, no m/r/g. Neck veins flat. No carotid bruits auscultated bilaterally. Abdomen: +BS, soft/nondistended, no masses palpated, no tenderness to palpation /rectal: Not examined Musculoskeletal: No flank tenderness to palpation Extremities: Nonedematous BLE Skin: Normal, no acute skin rashes/lesions Neurological: CNII-XI intact Labs: All labs/imaging pertaining to hospitalization reviewed. Component Latest Ref Rn 01/16/2016 WBC 4.0 - 11.0 k/ul 7.6 RBC 4.5 - 5.9 M/ul 4.96 HGB 13.5 - 17.5 g/dl 15.7 HCT 41.0 - 53.0 % 46.0 MCV 80 - 100 fl 92.7 MCH 26 - 34 pg 31.7 MCHC 32 - 36 g/dl 34.1 RDW 11.5 - 14.5 % 13.2 PLTS 150 - 450 k/ul 202 MPV 6.5 - 11.0 fl 10.3 PMN/Band 56 Lymph 29 Major 9 EOS 5 Baso 1 PMN Absolute 1.8 - 7.7 k/ul 4.3 Lymph Absolute 1.0 - 4.8 k/ul 2.2 Major Absolute 0.1 - 0.7 k/ul 0.7 Eos Absolute 0.0 - 0.5 k/ul 0.4 Baso Absolute 0.0 - 0.2 k/ul 0.1 Immature Gran 0 Imm Gran Absolute 0 k/ul 0.0 Component Latest Ref Rn 01/16/2016 Sodium 135 - 145 mmol/L 142 Potassium 3.5 - 5.3 mmol/L 3.9 Chloride 95 - 106 mmol/L 106 CO2 22 - 30 mmol/L 27 Anion Gap (calc.) 7 - 16 mmol/L 9 Glucose 70 - 180 mg/dl 109 Calcium 8.4 - 10.2 mg/dl 8.6 BUN 7 - 20 mg/dl 15 Creatinine 0.66 - 1.25 mg/dl 1.38 (H) GFR, Estimated >60 ml/min/1.73m2 48 (L) GFR, Est., If Black >60 ml/min/1.73m2 56 (L) Troponin I 0.00 - 0.06 ng/ml <0.02 Component Latest Ref Rng 01/16/2016 Urine Color Yellow Urine Clarity Clear Sp Gr 1.005 - 1.030 1.025 Leuk NEG Sml (A) Nitr NEG Positive (A) pH 4.5 - 8.0 5.5 Uprot NEG mg/dl Negative Ugluc NEG Negative uket NEG Negative Urob 0.2 - 1.0 EU/dl 0.2 Bili NEG Negative ubld NEGTR Neg/Tr RBC'S 0 - 3 /hpf 0-3 WBC'S 0 - 5 /hpf 10-20 UEPI Few UBACT Many Casts 1-2 Hyaline Other Mod Mucous EKG (personally reviewed): NSR, nl axis/intervals, no enlargement/hypertrophy, and no acute dynamic changes of ACS. documented in this encounter ED Notes Cate Kline RN - 01/16/2016 8:00 PM CDT Report to JANETTE KRISHNAN. Cate Kline RN, GELY Isidra Metcalf MD - 01/16/2016 5:42 PM CDT [facility] Emergency Department Visit Note Chief Complaint: Chief Complaint Patient presents with ??? DIFFICULTY BREATHING--ED ??? LIGHTHEADED--ED History of Present Illness HPI: Zaid Rutledge is a 80 y.o. male with a history of Asthma, GERD, back pain, esophageal reflux, amongst others, who presents to the Emergency Department for evaluation of difficulty breathing. The patient was sitting down at home when he felt sudden lightheadedness, dizzy, and cold sweats about an hour ago. He states that if he would have stood up he would have passed out. He describes his symptomsas flushed, clammy, and spinning. He alerted his who then ca;daryl;nasir the nurse line and was advisedto be seen for evaluation. His reports that he had a similar episode 2 days ago, and they also have been re-occuring once a month. He denies numbness or tingling of hands or face and any fever. His other symptoms include increased fatigue, belly pain, cough, and nauseated with no vomiting. He reports of having a large lunch today outside with 1 renata today. He denies excessive outdoor activity and states he is not a diabetic. 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 History was obtained from the patient. Meds: Current Discharge Medication List CONTINUE these medications which have NOT CHANGED Details ALBUterol sulfate hfa 108 (90 BASE) MCG/ACT inhaler Inhale 2 Puffs by mouth every 4 hours as needed for Wheezing. Qty: 8.5 g, Refills: 11 Comments: Based on formulary coverage, pharmacy may interchange between Proair HFA, Ventolin HFA and Proventil HFA inhalers and update dispensed quantity accordingly allopurinol (AKA ZYLOPRIM) 100 MG tablet TAKE 1 TABLET BY MOUTH ONCE DAILY Qty: 90 Tab, Refills: 3 dorzolamide (AKA TRUSOPT) 2 % eye drop solution Apply or instill 1 Drop into both eyes two times a day. fluticasone (AKA FLONASE) 50 MCG/ACT nasal solution Apply or instill 2 Sprays into both nostrils twotimes a day. guaiFENesin (AKA MUCINEX) 600 MG 12 hour release tablet Take 1,200 mg by mouth two times a day. Multiple Vitamins-Minerals (ICAPS AREDS FORMULA OR) 1 Tab two times a day. omeprazole (AKA PRILOSEC) 20 MG capsule TAKE ONE CAPSULE BY MOUTH TWICE DAILY ONE HOUR BEFORE A MEAL Qty: 180 Cap, Refills: 3 STOP taking these medications budesonide-formoterol (SYMBICORT) 160-4.5 MCG/ACT inhaler Comments: Reason for Stopping: docusate sodium (AKA COLACE) 100 MG capsule Comments: Reason for Stopping: gabapentin (AKA NEURONTIN) 300 MG capsule Comments: Reason for Stopping: hydrOXYzine pamoate (VISTARIL) 25 MG capsule Comments: Reason for Stopping: oxyCODONE-acetaminophen (AKA PERCOCET) 5-325 MG tablet Comments: Reason for Stopping: sennosides-docusate sodium (AKA SENNA-S,SENNA PLUS) 8.6-50 MG tablet Comments: Reason for Stopping: Allergies: Banana and Excedrin PMH: Patient Active Problem List Diagnosis ??? SPINAL STENOSIS, LUMBAR REGION, WITHOUT NEUROGENIC CLAUDICATION ??? LUMBAGO ??? NEURALGIA, NEURITIS, AND RADICULITIS, UNSPECIFIED ??? Allergic rhinitis ??? DROWNING AND NONFATAL SUBMERSION ??? BLADDER NECK OBSTRUCTION ??? PRIMARY LOCALIZED OSTEOARTHROSIS, OTHER SPECIFIED SITES ??? IRRITABLE BOWEL SYNDROME ??? UNSPECIFIED ASTHMA ??? ESOPHAGEAL REFLUX ??? ELEVATED PROSTATE SPECIFIC ANTIGEN (PSA) ??? PRIMARY PROSTATE ADENOCARCINOMA ??? PROSTATE CANCER ??? POLYP OF NASAL CAVITY ??? NEURAL HEARING LOSS, BILATERAL ??? Dysphagia ??? GOUT ??? GLAUCOMA ??? Orchitis and epididymitis ??? GERD (GASTROESOPHAGEAL REFLUX DISEASE) Past Medical History Diagnosis Date ??? Other [...] and epididymitis ??? GERD (gastroesophageal reflux disease) Past Surgical History Procedure Laterality Date ??? [...] (leftl3-4, l4-5 lateral recess decompression (left 10/29/2015 Social and Family History: Social History Substance Use Topics ??? Smoking status: Former Smoker Quit date: 12/24/1997 ??? Smokeless tobacco: Never Used ??? Alcohol Use: 4.2 oz/week 7 Standard drinks or equivalent per week Comment: moderate ROS: Pertinent positives/negatives from complete review of 10 systems are documented in the HPI, and are otherwise negative or noted above Physical Exam Vital signs: BP 149/87 mmHg Pulse 75 Temp(Src) 97.6 ??F (36.4 ??C) (Oral) Resp 20 Ht 5' 9 (1.753 m) Wt 104.327 kg (230 lb) BMI 33.95 kg/m2 SpO2 96% Physical Exam VITALS: Reviewed, normal gen: well appearing, alert, oriented x 3, no apparent distress HEENT: PERRL, EOMI, no icterus, TM's clear, no nasal discharge, OP clear without exudate or erythema neck: no cervical LAD, supple lungs: CTA B, no wheezing, rales, ronchi cor: regular, S1, S2 intact, no murmur abd: +BS, soft, ND, mild lower abdominal tenderness back: No midline tenderness. No flank tenderness. ext: no cyanosis, no edema skin: no rashes, no bruising, no jaundice neuro: motor/sens grossly intact. Normal gait Medical Decision Making & ED Course Interventions: Medications levoFLOXACIN (LEVAQUIN) tablet 750 mg (not administered) NaCl 0.9% infusion (not administered) ED Course: 1754 Patient was seen and evaluated. 1804 Labs drawn 1843 Lab results 1919 Discussed clinical impression, treatment plan, and recommendations for follow up. 1954 All questions answered. Patient admitted to Hospital Orders Placed This Encounter ??? CBC AND DIFFERENTIAL ??? BASIC METABOLIC PANEL ??? UA with Micro ??? Troponin I ??? URINE CULTURE ??? POC US EXPANDED IVC ??? ECG 12-Lead Routine ??? Admit to Observation Telemetry ??? levoFLOXACIN (LEVAQUIN) tablet 750 mg ??? NaCl 0.9% infusion Lab Results: CBC: All within normal limits BMP: Creatinine: 1.38 (H) GFR: 48 (L) Troponin I: <0.02 Imaging Results: US: reassuring ECG Results: NSR with ventricular rate 73, no ischemic ST T changes MDM: Concerning constellation of symptoms suggesting vagal-type episode. Differential includes arrhythmia, acute coronary syndrome, dehydration, vasovagal episode. Given the feeling of lightheadedness without focal neuro symptoms, I did not think this is stroke type syndrome. The troponin is negative and the electrocardiogram is normal. Urinalysis suggests infection. I will give him some antibiotics and admit him for further monitoring, in particular telemetry monitoring. The patient is clinically stablehere in the emergency department. Ultrasound of his heart and aorta have very difficult windows do not show any gross abnormalities. Patient admitted to hospital for further emergent imaging or workup indicated at this time. Discussed warning signs and symptoms for patient to seek emergent medical attention. The patient indicates understanding of these issues and agrees with the plan. Diagnosis & Disposition Disposition Plan: Admit to Hospital Diagnosis: UTI, presyncope, mild renal insufficiency This document serves as a record of services personally performed by Isidra Metcalf MD. This record was created on his behalf by Argelia Castillo, a trained medical director/head team physician. The creation of this record is based on the scribe's personal observations and the provider's statements to him. The document has been checked and approved by the attending provider. 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 Tonight while reading he became dizzy and lightheaded. Patient states if he had stood he would have passed out. He felt flushed and clammy. He alerted his . He had something similar 2 days ago. He reports shortness of breath. His called the nurse line and they were directed to come in for evaluation. Vital signs are stable. Sinus on the EKG. He denies numbness or tingling of hands or face. He has facial symmetry. He reports increased fatigue. He had a large lunch and 1 renata. He denies alcohol abuse. He ate lunch outside. He deniesexcessive outdoor activity. He is not a diabetic. He is pink warm and dry. Cate Kline RN, GELY documented in this encounter Plan of Treatment Scheduled Referrals Name Type Priority Associated Diagnoses Order S chedule Event Monitor Referral Referral Routine Order ed: 01/17/2016 Primary Care Referral Routine Ordered: 2015 documented as of this encounter Procedures Procedure Name Priority Date/Time Associated Comments Diagnosis CARDIAC ROUTINE Discharge 01/17/2016 10:45 Results for ECHOCARDIOGRAM Decision AM CDT this procedur e are in the results section. GOLD HOLD TUBE (OR Routine 01/16/2016 9:07 Result s for RED/SILVERMAN) PM CDT this procedure are in the results section. PURPLE HOLD TUBE Routine 01/16/2016 9:07 Results for PM CDT this procedure are in the results section. TROPONIN I Specified Time 01/16/2016 9:07 Results fo r PM CDT this procedure are in the results section. URINE CULTURE Routine 01/16/2016 6:55 Results for PM CDT this procedure are in the results section. TSH, SENSITIVE (WITH Routine 01/16/2016 6:28 Resu lts for REFLEX) PM CDT this procedure are in the results section. POC US EXPANDED IVC Routine 01/16/2016 6:10 Resul ts for PM CDT this procedure are in the results section. COMPLETE BLOOD STAT 01/16/2016 5:45 Results fo r COUNT-W/DIFF PM CDT this procedure are in the results section. BASIC METABOLIC PANEL STAT 01/16/2016 5:45 Res ults for PM CDT this procedure are in the results section. TROPONIN I STAT 01/16/2016 5:45 Results for PM CDT this procedure are in the results section. UA WITH MICRO Routine 01/16/2016 5:44 Results for PM CDT this procedure are in the results section. ECG 12-LEAD ROUTINE Routine 01/16/2016 5:28 Resul ts for PM CDT this procedure are in the results section. APPEALS AND GENERALIST CLERK 01/16/2016 12:00 Results for AM CDT this procedure are in the results section. documented in this encounter Results CARDIAC ROUTINE ECHOCARDIOGRAM (01/17/2016 10:45 AM CDT) Specimen (Source) Anatomical Collection Method Collection Time Re ceived Time Location / / Volume Laterality 01/17/2016 10:45 AM CDT Narrative [facility] - 01/17/2016 1:53 PM CDT Contrast: Optison 3.0 ml ? Contrast Allergy:NO Clinical Indications:presyncope ?? CONCLUSION: Normal LV size and systolic function. M ild concentric LVH. ?? Normal RV size and function. ?? Mild LA dilatation. ?? Mild aortic regurgitation. ?? Mildly dilated aortic root. (3.9cm) ?? IVC is normal in size and responsive to inspiration indicating normal ?? RA pressure. ?? Left Ventricular Ejection Fraction: 60 % ICD Codes: ? Technical Quality: Patient Vital Signs: Ht HT ??69 ?Ht(in): ?Wt (lb) :230 ?BSA: ?? 2.25 ?BP: ?152 ??/ 93 ? IV Information: IV Inserted By: IV Site: IV Site Appearance: IV Size: IV Removed By: IV Other: ?2D, Doppler a nd color flow Doppler study ?performed. ? Measurements: M-MODE IVS to PW Ratio MM ?1.2 ? 2D ECHO Body Height ? 69 in ? Body Weight ? 230 lb ? Body Surface Area ? 2.3 m? LV Diastolic Diameter Base LX ? 4.8 cm ?3.5-5.7 LV Systolic Diameter Base LX ?3 cm ?2.3-4.9 LV Diastolic Diameter Index ? 2. 1 cm/m? IVS Diastolic Thickness ? 1.3 cm ?0.6-1.1 cm LVPW Diastolic Thickness ? 1.1 cm ?0.6-1.1 cm Aortic Root Diameter ?3.9 cm ?2.0-3.5 cm Ascending Aorta Diameter ? 3.6 cm ? LA Systolic Diameter LX ? 3.4 cm ?2.1-3.7 cm LA Area 4C View ? 20.5 cm? LA Area 2C View ? 21.2 cm?<= 20 cm?? LA Volume ? 60 cm? LA Volume Index ? 26.6 cm??/m? 16-28 cm??/m?? DOPPLER AV Peak Velocity ?142 cm/s ? AV Peak Gradient ?8.1 mmHg ? AV Mean Gradient ?4.5 mmHg ? AV Velocity Time Integral ? 3 1.1 cm ? LVOT Peak Velocity ?93.2 cm/s ? LVOT Peak Gradient ?3.5 mmHg ? LVOT Mean Gradient ?2 mmHg ? LVOT Velocity Time Integral ? 18 .3 cm ? LVOT Diameter ? 2 cm ? LVOT Area ? 3.1 cm? LVOT AV VTI Ratio ? 0.59 ? AV Stroke Volume ?57.5 cm? AV Area Cont Eq vti ? 1.8 cm? AV Area Cont Eq pk ?2.1 cm? Mitral E Point Velocity ? 60.2 cm/s ? Mitral ??A Point Velocity ?102 cm/s ? Mitral E to A Ratio ? 0.59 ? MV Peak Velocity ?103 cm/s ? MV Peak Gradient ?4.2 mmHg ? MV Mean Gradient ?2 mmHg ? MV Velocity Time Integral ? 3 1.3 cm ? MV Area Cont Eq vti ? 1.8 cm? TR Peak Velocity ?243 cm/s ? TR Peak Gradient ?23.6 mmHg ? LV E' Septal Velocity ? 5.5 cm/s ? Mitral E to LV E' Septal Ratio ?11 ? COLOR DOPPLER LVOT Diameter ? 2 cm ? LA Area 4C View ? 20.5 cm? LA Area 2C View ? 21.2 cm?<= 20 cm?? LA Volume ? 60 cm? LA Volume Index ? 26.6 ml/m?16-28 cm??/m? Left Ventricle: ? Normal LV size an d systolic function. Mild ? concentri c LVH. Grade I diastolic filling ? pattern. No gross regional wall motion ? abnormali ties identified. Right Ventricle: ?Normal RV size an d function. Left Atrium: ?Mild LA dilatat ion. Right Atrium: ? Normal RA size. Aortic Valve: ? Aortic valve not seen well enough to assess if ? bicuspid or tri-leaflet. Mild aortic regurgitation. Mitral Valve: ? Trace mitral reg urgitation. Moderately calcified ? mitral an nulus. Tricuspid Valve: ?Trace tricuspid r egurgitation. Estimated RV ? systolic pressure= 24mmHg + right atrial ? pressure. Pulmonic Valve: ? Pulmonic valve po yessy visualized Aorta: ?Mildly dilat ed aortic root (3.9cm). Pericardium: ?No gross perica rdial effusion. IVC: ?IVC is norm al in size and responsive to ? inspirati on indicating normal RA pressure. IAS: ?Interatrial septum appears intact. 3D Imaging/Contrast:Two or more contigu ous regional blair were ? unable to be seen on pre-contrast images, ? therefore Optison (LOT #[id number]) was used ? on this s tudy. ?Danny Riojas MD ??(Electronically Signed) ??Final Date:17 January 2016 13:53 Procedure Note Danny Riojas, MBBS - 01/17/2016For matting of this note might be different from the original. Contrast: Optison 3.0 ml Contrast Aller gy:NO Clinical Indications:presyncope CONCLUSION: Normal LV size and systolic function. M ild concentric LVH. Normal RV size and function. Mild LA dilatation. Mild aortic regurgitation. Mildly dilated aortic root. (3.9cm) IVC is normal in size and responsive to inspiration indicating normal RA pressure. Left Ventricular Ejection Fraction: 60 % ICD Codes: Technical Quality: Patient Vital Signs: Ht HT 69 Ht(in): Wt (lb):230 BSA: 2.25 BP: 152 / 93 IV Information: IV Inserted By: IV Site: IV Site Appearance: IV Size: IV Removed By: IV Other: 2D, Doppler and color flow Doppler stud y performed. Measurements: M-MODE IVS to PW Ratio MM 1.2 2D ECHO Body Height 69 in Body Weight 230 lb Body Surface Area 2.3 m?? LV Diastolic Diameter Base LX 4.8 cm 3. 5-5.7 LV Systolic Diameter Base LX 3 cm 2.3-4 .9 LV Diastolic Diameter Index 2.1 cm/m?? IVS Diastolic Thickness 1.3 cm 0.6-1.1 cm LVPW Diastolic Thickness 1.1 cm 0.6-1.1 cm Aortic Root Diameter 3.9 cm 2.0-3.5 cm Ascending Aorta Diameter 3.6 cm LA Systolic Diameter LX 3.4 cm 2.1-3.7 cm LA Area 4C View 20.5 cm?? LA Area 2C View 21.2 cm?? <= 20 cm?? LA Volume 60 cm?? LA Volume Index 26.6 cm??/m?? 16-28 cm? ?/m?? DOPPLER AV Peak Velocity 142 cm/s AV Peak Gradient 8.1 mmHg AV Mean Gradient 4.5 mmHg AV Velocity Time Integral 31.1 cm LVOT Peak Velocity 93.2 cm/s LVOT Peak Gradient 3.5 mmHg LVOT Mean Gradient 2 mmHg LVOT Velocity Time Integral 18.3 cm LVOT Diameter 2 cm LVOT Area 3.1 cm?? LVOT AV VTI Ratio 0.59 AV Stroke Volume 57.5 cm?? AV Area Cont Eq vti 1.8 cm?? AV Area Cont Eq pk 2.1 cm?? Mitral E Point Velocity 60.2 cm/s Mitral A Point Velocity 102 cm/s Mitral E to A Ratio 0.59 MV Peak Velocity 103 cm/s MV Peak Gradient 4.2 mmHg MV Mean Gradient 2 mmHg MV Velocity Time Integral 31.3 cm MV Area Cont Eq vti 1.8 cm?? TR Peak Velocity 243 cm/s TR Peak Gradient 23.6 mmHg LV E' Septal Velocity 5.5 cm/s Mitral E to LV E' Septal Ratio 11 COLOR DOPPLER LVOT Diameter 2 cm LA Area 4C View 20.5 cm?? LA Area 2C View 21.2 cm?? <= 20 cm?? LA Volume 60 cm?? LA Volume Index 26.6 ml/m?? 16-28 cm??/ m?? Left Ventricle: Normal LV size and syst olic function. Mild concentric LVH. Grade I diastolic filli ng pattern. No gross regional wall motion abnormalities identified. Right Ventricle: Normal RV size and fun ction. Left Atrium: Mild LA dilatation. Right Atrium: Normal RA size. Aortic Valve: Aortic valve not seen wel l enough to assess if bicuspid or tri-leaflet. Mild aortic re gurgitation. Mitral Valve: Trace mitral regurgitatio n. Moderately calcified mitral annulus. Tricuspid Valve: Trace tricuspid regurg itation. Estimated RV systolic pressure= 24mmHg + right atria l pressure. Pulmonic Valve: Pulmonic valve poorly v isualized Aorta: Mildly dilated aortic root (3.9c m). Pericardium: No gross pericardial effus ion. IVC: IVC is normal in size and responsi ve to inspiration indicating normal RA pressu re. IAS: Interatrial septum appears intact. 3D Imaging/Contrast:Two or more contigu ous regional blair were unable to be seen on pre-contrast image s, therefore Optison (LOT #[id number]) was u sed on this study. Danny Riojas MD (Electronically Signed) Final Date:17 January 2016 13:53 Del Langston MD [facility] ECHO/RH Performing Organization Address City/[facility]/ZIP Code Phon e Number [facility] [address] [place] [id number] Gold Hold Tube (Or Red/Silverman) (01/16/2016 9:07 PM CDT) [employer] Method Time Signature Gold Hold Held in [facility] Chemistry HOSPITAL sample rack for 7 days Specimen Anatomical Collection Method Collection Time Receive d Time (Source) Location / / Volume Laterality 01/16/2016 9:07 PM 6 9:08 CDT PM CDT [facility] - 01/16/2016 9:08 PM CD T Performed at [facility], [address] [place] [id number] Del Langston MD LAB_1 Performing Organization Address City/[facility]/ZIP [facility] Phon e Number [address] [address] PURPLE HOLD TUBE (01/16/2016 9:07 PM CDT) [employer] Method Time Signature Purple Hold Held in Heme rack for 3 days . A1C test can be added on up to 3 days. [facility] Stability varies for Heme tests, consult Heme Techs befor e adding on HOSPITAL heme orders. Specimen Anatomical Collection Method Collection Time Receive d Time (Source) Location / / Volume Laterality 01/16/2016 9:07 PM 6 9:08 CDT PM CDT [facility] - 01/16/2016 9:08 PM CD T Performed at [facility], [address] [place] [id number] Del Langston MD LAB_1 Performing Organization Address City/[facility]/ZIP [facility] Phon e Number [address] [address] Troponin I (01/16/2016 9:07 PM CDT) P athologist Signature Troponin I <0.02 0.00 - 0.06 [facility] ng/ml [facility]PITAL Specimen Anatomical Collection Method Collection Time Receive d Time (Source) Location / / Volume Laterality 01/16/2016 9:07 PM 6 9:08 CDT PM CDT [facility] - 01/16/2016 9:45 PM CD T Performed at [facility], [address] [place] [id number] Del Langston MD LAB_1 Performing Organization Address [facility] Phon e Number [address] [address] URINE CULTURE (01/16/2016 6:55 PM CDT) [facility] Method Time Signature Specimen Urine Clean [facility] Description Catch [facility] Special Unspecified [facility] Requests [facility]OSPITAL Culture > 100,000 [facility] col/ml [facility]OSPITAL Escherichia coli Report Status Final [facility] 01/18/2016 HOSPITAL Organism > 100,000 [facility] col/ml [facility] Escherichia coli Specimen Anatomical Collection Method Collection Time Receive d Time (Source) Location / / Volume Laterality Urine specimen 01/16/2016 6:55 PM 016 8:26 (specimen) CDT PM CDT [facility] - 01/18/2016 9:16 AM CD T Performed at [facility], [address] [place] [id number] Organism Antibiotic Method Susceptibility > 100,000 col/ml Ampicillin LV FRIEDA >16 escherichia coli Resistant Predicts Activit y of Amoxicillin Resistant > 100,000 col/ml Ampicillin/Sulbactam LV FRIEDA >16/8 escherichia coli Resistant Resistant > 100,000 col/ml Cefazolin LV FRIEDA >16 escherichia coli Resistant Isolates suscept ible to Cefazolin are al so susceptible to Cephadroxil and Cephalexin. Resistant > 100,000 col/ml Cefepime LV FRIEDA 8 escherichia coli Intermediate Intermediate > 100,000 col/ml Cefoxitin LV FRIEDA <=4 escherichia coli Susceptible SUSCEPTIBLE > 100,000 col/ml Ceftriaxone LV FRIEDA <=1 escherichia coli Susceptible SUSCEPTIBLE [...] Nitrofurantoin LV FRIEDA 32 escherichia coli Susceptible Limited to use i n lower urinary tract in fections. Do not use in patie nts with Creatinine Clearance less than 60 ml/ min. SUSCEPTIBLE > 100,000 col/ml Piper/tazobactam LV FRIEDA >64/4 escherichia coli Resistant Resistant > 100,000 col/ml Trimeth/Sulfa LV FRIEDA <=0.5/9.5 escherichia coli Susceptible SUSCEPTIBLE Isidra Metcalf MD LAB_1 Performing Organization Address City/[facility] Phon e Number [address] [address] TSH, SENSITIVE with FT4, FT3 (if needed) (01/16/2016 6:28 PM CDT) P athologist Signature TSH, with 1.31 0.36 - [facility] Reflex 3.74 HOSPITAL uIU/ml Specimen Anatomical Collection Method Collection Time Receive d Time (Source) Location / / Volume Laterality 01/16/2016 6:28 PM 6 8:24 CDT PM CDT [facility] - 01/16/2016 8:57 PM CD T Performed at [facility], [address] [place] [id number] Del Langston MD LAB_1 Performing Organization Address [facility] Phon e Number [address] [address] POC US EXPANDED IVC (01/16/2016 6:10 PM CDT) Anatomical Region Laterality Modality Ultrasound Specimen (Source) Anatomical Location Collection Method / Collectio n Time Received Time / Laterality Volume Narrative 01/16/2016 7:25 PM CDT Isidra Metcalf MD ? 01/16/2016 ??7:25 PM [facility] Point of Care Ultrasound Interpretation POC US EXPANDED IVC Date/Time: 01/16/2016 7:24 PM Performed by: ISIDRA METCALF Authorized by: ISIDRA METCALF Point of Care Ultrasound: Expanded IVC Indication: ??Syncope Window: ??Very challenging windows, Para sternal Long [place], Apical 4-Chamber, IVC longitudinal inspiration and IVC longitudinal expiration Findings: Grossly Normal Exam, Good Glob al Function and No Pericardial Effusion Impression: ??Grossly Normal Also, no obvious AAA. Isidra Metcalf MD Isidra Metcalf MD RAD POC US Troponin I (01/16/2016 5:45 PM CDT) P athologist Signature Troponin I <0.02 0.00 - 0.06 [facility] ng/ml [facility] Specimen Anatomical Collection Method Collection Time Receive d Time (Source) Location / / Volume Laterality 01/16/2016 5:45 PM 6 6:28 CDT PM CDT [facility] - 01/16/2016 6:44 PM CD T Performed at [facility], [address] [place] [address] Isidra Metcalf MD LAB_1 Performing Organization Address City/State/ZIP Code Phon e Number [address] [id number] [address] (ABNORMAL) BASIC METABOLIC PANEL (01/16/2016 5:45 PM CDT) Analysis Performed At Patho logist Time Signature Sodium 142 135 - 145 [facility] mmol/L [facility]OSPITAL Potassium 3.9 3.5 - 5.3 [facility] mmol/L [facility] Chloride 106 95 - 106 [facility] mmol/L [facility]OS[facility]ITAL CO2 27 22 - 30 [facility] mmol/L [facility]OS[facility] Anion Gap 9 7 - 16 [facility] (calc.) mmol/L [facility]OSPITAL Glucose 109 70 - 180 [facility] mg/dl [facility]OS[facility]ITAL Calcium 8.6 8.4 - 10.2 [facility] mg/dl [facility] BUN 15 7 - 20 [facility] mg/dl [facility]OS[facility]ITAL Creatinine 1.38 (H) 0.66 - [facility] 1.25 mg/dl HOSPITAL GFR, Estimated 48 (L) >60 [facility] ml/min/1.7 HOSPITAL 3m2 Comment: The National Kidney Disease Education Pr ogram suggests measuring Cystatin C in patients with eGFRcrea of 45 to 59 ml/min/1.73^2 who do not have other markers of kidney damage (i.e.,elevated urine Albumin/Creatinine Ratio or a prior Cys tatin C confirming the presence of Chronic Kidney Disease.) GFR, Est., If Black 56 (L) >60 ml/min/1.73m2 [facility] Comment: The National Kidney Disease Education Pr ogram suggests measuring Cystatin C in patients with eGFRcrea of 45 to 59 ml/min/1.73^2 who do not have other markers of kidney damage (i.e.,elevated urine Albumin/Creatinine Ratio or a prior Cys tatin C confirming the presence of Chronic Kidney Disease.) Specimen Anatomical Collection Method Collection Time Receive d Time (Source) Location / / Volume Laterality 01/16/2016 5:45 PM 6 6:28 CDT PM CDT Narrative [facility] - 01/16/2016 6:44 PM CD T Performed at [facility], [address] [place] [address] Isidra Metcalf MD LAB_1 Performing Organization Address City/State/ZIP Code Phon e Number [address] [address] CBC AND DIFFERENTIAL (01/16/2016 5:45 PM CDT) athologist Signature WBC 7.6 4.0 - 11.0 [facility] RBC 4.96 4.5 - 5.9 [facility] Hemoglobin 15.7 13.5 - [facility] 17.5 g/dl HOSPITAL HCT 46.0 41.0 - [facility] 53.0 % HOSPITAL MCV 92.7 80 - 100 [facility] MCH 31.7 26 - 34 pg [facility] MCHC 34.1 32 - 36 [facility] g/dl [facility] RDW 13.2 11.5 - [facility] 14.5 % [facility]OSPITAL Platelets 202 150 - 450 [facility] MPV 10.3 6.5 - 11.0 [facility] fl [facility]OSPITAL PMN/Band 56 % [facility] Lymph 29 % [facility] Major 9 % [facility] Eos 5 % [facility] Baso 1 % [facility] Neutrophil 4.3 1.8 - 7.7 [facility] Absolute k/ HOSPITAL Lymph Absolute 2.2 1.0 - 4.8 [facility] k/ [facility]OSPITAL Major Absolute 0.7 0.1 - 0.7 [facility] k/ [facility]OSPITAL Eos Absolute 0.4 0.0 - 0.5 [facility] k/ [facility]OS[facility] Baso Absolute 0.1 0.0 - 0.2 [facility] k/ HOSPITAL Immature Gran 0 % [facility] Imm Gran 0.0 0 / [facility] Absolute [facility]OSPITAL Specimen Anatomical Collection Method Collection Time Receive d Time (Source) Location / / Volume Laterality 01/16/2016 5:45 PM 6 6:28 CDT PM CDT Narrative [facility] - 01/16/2016 6:33 PM CD T Performed at [facility], [address] [place] [address] Isidra Metcalf MD LAB_1 Performing Organization Address City/State/ZIP Code Phon e Number [address] [address] (ABNORMAL) UA with Micro (01/16/2016 5:44 PM CDT) [facility] Method Time Signature Urine Color Yellow [facility] Urine Clarity Clear [facility] Sp Gr 1.025 1.005 - [facility] 1.030 [facility]ITAL Leuk Sml (A) NEG [facility] Nitr Positive NEG [facility] (A) [facility] pH 5.5 4.5 - 8.0 [facility] Prot Negative NEG mg/dl [facility] Gluc Negative NEG [facility] Ket Negative NEG [facility] Urob 0.2 0.2 - 1.0 [facility] EU/dl [facility]OS[facility] Bili Negative NEG [facility] Blood Neg/Tr NEGTR [facility] RBC'S 0-3 0 - 3 [facility] /hpf [facility]OSPITAL WBC'S 10-20 0 - 5 [facility] /hpf [facility] Epith, Few /hpf [facility] Bact Many [facility] Casts 1-2 Hyaline /lpf [facility] Other Mod Mucous [facility] Specimen Anatomical Collection Method Collection Time Receive d Time (Source) Location / / Volume Laterality 01/16/2016 5:44 PM 6 6:55 CDT PM CDT Narrative [facility] - 01/16/2016 7:01 PM CD T Performed at [facility], [address] [place] [address] Isidra Metcalf MD LAB_1 Performing Organization Address City/[facility] Phon e Number [address] [address] ECG 12-Lead Routine (01/16/2016 5:28 PM CDT) P athologist Signature Ventricular Rate 73 BPM [facility] Atrial Rate 73 BPM [facility] P-R Interval 154 ms [facility] QRS Duration 90 ms [facility] QT 408 ms [facility] QTc 449 ms [facility] P [place] 23 degrees [facility] R [place] -5 degrees [facility] T [place] 13 degrees [facility] Specimen (Source) Anatomical Collection Method Collection Time Re ceived Time Location / / Volume Laterality 01/16/2016 5:28 PM CDT Narrative [facility] - 01/26/2016 7:49 AM CDT Sinus rhythm Normal ECG When compared with ECG of 19-OCT-2015 11 :19, No significant change was found Confirmed by MD SMITH JOSEPH A ([id number]), web editor SILVIO VEGA ([id number]) on 01/26/2016 7:49:45 AM Procedure Note Mark Smith MD - 01/26/2016Forma tting of this note might be different from the original. Sinus rhythm Normal ECG When compared with ECG of 19-OCT-2015 11 :19, No significant change was found Confirmed by MD SMITH JOSEPH A ([id number]), web editor SILVIO VEGA ([id number]) on 01/26/2016 7:49:45 AM Isidra Metcalf MD EKG Performing Organization Address City/[facility]/ZIP Code Phon e Number [facility] [place] [employer] (01/16/2016 12:00 AM CDT) Specimen (Source) Anatomical Location Collection Method / Collectio n Time Received Time / Laterality Volume 01/16/2016 Narrative This result has an attachment that is no t available. 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 ([facility]) Malignant neoplasm of prostate Dehydration Syncope, unspecified syncope type Urinary tract infection, site not specif ied Renal insufficiency Unspecified disorder of kidney and urete r Gout, unspecified cause, unspecified chr onicity, unspecified site Gastroesophageal reflux disease, esophag itis presence not specified Personal history of nicotine dependence Personal history of tobacco use, present ing hazards to health Personal history of malignant neoplasm o f prostate Plan of Care - Yesenia Curran RN - 01/17/2016 5:33 PM CDT [facility] Discharge Note - Nursing Admission Date/Time: 01/16/2016 5:36 PM Attending MD: Filemon Woods MD Patient discharged: to Home. Discharge Date: 01/17/16 Discharge Time: 1700 Patient accompanied by: spouse. Transported by: Walked Valuables were taken home by patient: Yes Discharge instructions given and explained to patient: Yes Discharge Patient Education Plan completed, taught, and provided to patient/caregiver at discharge: Yes ?? Discussed medication risks with patient ?? Patient understands medications usage and side effects ?? Patient understands diagnosis ?? Action Plan for management of symptoms/side effects/complications requiring medical attention established and shared with patient/caregiver Was patient discharged on Warfarin? {(Do not delete line; Warfarin documentation is required) No Patients general condition on discharge: No changes in status. Not having any more dizziness. Discharge questions all answered and understood. All medical devices (telemetry/IV/etc) unless otherwise ordered, have been removed and stored: Yes Report Completed by: Yesenia Curran RN --- End of Report --- Plan of Care - Michelle Ramos - 01/17/2016 3:15 PM CDT SW met with patient to discuss discharge needs. Patient is waiting to see the and to get the results of his echocardiogram. Patient stated he feels as though he will be able to manage his own care when he is discharged unless he gets any restrictions from the Dr. Provided him with my business cardand contact information if needs should arise. Patient is expected to discharge home today. LUCAS Rosales 01/17/2016, 3:17 PM Plan of Care - Lara Brown RN - 01/17/2016 4:26 AM CDT Denies any dizziness or discomfort. Slept short intervals, up to self cath twice. Remains sinus rhythm with no ectopy. Plan for echo in am then possible discharge. documented in this encounter Administered Medications Inactive Administered Medications - up to 3 most recent administrations Medication Order MAR Action Action Date Dose Rate Site acetaminophen (TYLENOL) tablet Given 01/16/2016 10:09 PM CDT 500 mg 500 mg 500 mg, Oral, ONCE, On Thu01/16/16 at 2215, For 1 dose acetaminophen (TYLENOL) tablet 500-1,000 Given 01/17/2016 10 :33 AM CDT 1,000 mg mg 500-1,000 mg, Oral, Q8H PRN, Pain/Fever, Starting on Thu01/17/16 at 0959, Until Thu01/17/16 at 2048 diphenhydrAMINE (BENADRYL) capsule 25-50 mg Given 01/16/2016 10:09 PM CDT 25 mg 25-50 mg, Oral, HS PRN, Sleep, Starting on Thu01/16/16 at 2156, Until Thu01/17/16 at 2048 dorzolamide (TRUSOPT) 2 % eye drops 1 Dr feliciano Given 01/17/2016 7:58 AM CDT 1 Drop 1 Drop, Both Eyes, BID, First dose on Thu01/16/16 at 2115, Until Discontinued, If patient uses multiple eye drops, allow approximately 5 minutes between instillation of each medication. Given 01/16/2016 9:16 PM CDT 1 Drop levoFLOXACIN (LEVAQUIN) tablet 750 mg Given 01/16/2016 7:26 PM CDT 750 mg 750 mg, Oral, ONCE, On Thu01/16/16 at 1930, For 1 dose, Do not give within 2 hours of calcium, iron, magnesium supplements or antacids. Hold enteral feedings 1 hour before and 1 hour after dose. NG/OGT: Crush immediate-release tablet and mix with water. NaCl 0.9% infusion Started 01/16/2016 7:28 PM CDT 1,000 mL 150 mL/hr 1,000 mL, Intravenous, at 150 mL/hr, ONCE, On Thu01/16/16 at 1945, For 1 dose, Bolus NaCl 0.9% infusion Started 01/16/2016 11:57 PM CDT 100 mL/hr Intravenous, at 100 mL/hr, CONTINUOUS, Starting on Thu01/16/16 at 2115, For 10 hours Started 01/16/2016 9:11 PM CDT 100 mL/hr documented in this encounter Active and Recently Administered Medications Times are shown in CDT. Scheduled Medication Order 01/15/2016 01/16/2016 01/17/2016 acetaminophen (TYLENOL) tablet 500 mg (COMPLETED) 2208 (Given - Provider: Jackie Carey RN) 500 mg, Oral, ONCE, On Thu01/16/16 at 2215, For 1 dose dorzolamide (TRUSOPT) 2 % eye drops 1 Drop (CANCELED) 2115 (Given - Provider: Jackie Carey RN) 0758 (Given - Provider: Sagrario Weathers) 1 Drop, Both Eyes, BID, First dose on 01/16/16 at 2115, If patient uses multiple eye drops, allow approximately 5 minutes between instillation of each medication. levoFLOXACIN (LEVAQUIN) tablet 750 mg (COMPLETED) 1925 (Given - Provider: Grace Logan RN) 750 mg, Oral, ONCE, Thu01/16/16 at 1930, For 1 dose, Do not give within 2 hours of calcium, iron, magnesium supplements or antacids. Hold enteral feedings 1 hour before and 1 hour after dose. NG/OGT: Crush immediate-release tablet and mix with water. NaCl 0.9% infusion (COMPLETED) 1927 (Sta rted - Provider: Grace Logan RN) 1,000 mL, Intravenous, at 150 mL/hr, ONC E, On Thu01/16/16 at 1945, For 1 dose, Bolus Continuous Medication Order 01/15/2016 01/16/2016 01/17/2016 NaCl 0.9% infusion 2111 (Started - Prov ider: Jackie Carey, RN)2357 (Started - Provider: Lara Brown RN) Intravenous, at 100 mL/hr, CONTINUOUS, S tarting Thu01/16/16 at 2115, For 10 hours PRN Medication Order 01/15/2016 01/16/2016 01/17/2016 acetaminophen (TYLENOL) tablet 500-1,000 mg (CANCELED) 1033 (Given - Provider: Yesenia Curran RN) 500-1,000 mg, Oral, Q8H PRN, Pain/Fever, Starting Ana 01/17/16 at 0959 diphenhydrAMINE (BENADRYL) capsule 25-50 mg (CANCELED) 2209 (Given - Provider: Jackie Carey RN) 25-50 mg, Oral, HS PRN, Sleep, Starting Thu01/16/16 at 2156 documented in this encounter Care Teams Draw Tender Relationship Specialty Start Date End Date Ramses Cleary MD PCP - General Family Practice 10/21/11 documented as of this encounter
--- OUTSIDE RECORDS SUMMARY | 2022-02-24 12:24 | XMS_ITS | Encounter Summary ---
:1935 Author Organization [facility] Address [address] [place] [id number] Care Team Providers Name Role Phone Ramses Cleary MD Primary Care Provider Unavailable Reason for Referral Consult/Transfer Care (Routine) - Closed Specialty Diagnoses / Procedures Referred By Contact Refer red To Contact Brian Thomas P A-C [address] [place] [address] Referral ID Status Reason Start Date Expiration Date Visits Requ ested Visits Authorized [id number] Closed 10/30/2015 01/28/2017 1 1 Scheduling Instructions Follow up with your doctor [facility] in 2 week s Consult/Transfer Care (Routine) - Closed Specialty Diagnoses / Procedures Referred By Contact Refer red To Contact Douglas Mae MD [address] [place] [id number] Referral ID Status Reason Start Date Expiration Date Visits Requ ested Visits Authorized [id number] Closed 10/29/2015 01/27/2017 1 1 Scheduling Instructions Your provider has recommended an appoint ment with a [facility] Specialist. You may call [phone] to schedule your appointment. (Routine) - Incomplete Specialty Diagnoses / Procedures Referred By Contact Refer red To Contact Procedures Douglas Mae MD XR C-ARM 1.5-2 HOURS [address] [place] [address] Referral ID Status Reason Start Date Expiration Date Visits V isits Requested Authorized [id number] Incomplete 10/29/2015 01/27/2017 1 1 Reason for Visit Auth/Cert Specialty Diagnoses / Procedures Referred By Contact Refer red To Contact Diagnoses lumbar spinal stenosis Procedures FORAMINOTOMY POSTERIOR APPROACH LUMBAR SPINE, Laterality: Left Referral ID Status Reason Start Date Expiration Date Visits Requ ested Visits Authorized [id number] 1 1 Encounter Details Date Type Department Care Team Description 10/29/2015 - Hospital Encounter LV Med Surg Douglas Mae 10/30/2015 7 [facility] [address] [place] [address] [place], [place] [id number] (Wo rk) Social History Tobacco Use Types [...] Sign Reading Time Taken Comments Blood Pressure 149/73 10/30/2015 12:01 PM CDT Pulse 75 10/30/2015 12:01 PM CDT Temperature 36.4 ??C (97.6 ??F) 10/30/2015 12:01 PM CDT Respiratory Rate 16 10/30/2015 12:01 PM CDT Oxygen Saturation 98% 10/30/2015 12:01 PM CDT Inhaled Oxygen Concentration - - Weight 107.5 kg (237 lb 1 oz) 10/29/2015 9:08 AM CDT Height 170.2 cm (5' 7) 10/25/2015 1:39 PM CDT Body Mass Index 37.13 10/25/2015 1:39 PM CDT documented in this encounter Discharge Summaries Micki Jeffries, PT - 10/30/2015 12:00 PM CDT [facility] Physical Therapy Discharge Summary Zaid Rutledge Today's Date:10/30/2015 Diagnosis: No diagnosis found. Past Medical History Diagnosis Date ??? Other [...] and epididymitis ??? GERD (gastroesophageal reflux disease) Ramses Cleary Assessment: Initial Acute care goals. Met Yes Equipment given: none, pt has own cane Patient was discharged to:home with family Micki Jeffries PT End Report Brian Thomas PA-C - 10/30/2015 9:27 AM CDT [facility] Discharge Summary: Spine Admit Date: 10/29/2015 8:13 AM Discharge Date: 10/30/2015 Post-Operative Day: 1 Day Post-Op Reason for admission: The patient was admitted for the following:Procedure(s): L3-4, L4-5 LATERAL RECESS DECOMPRESSION Pre-Op Diagnosis Codes: * Lumbar spinal stenosis [M48.06] Following the procedure noted above the patient was transferred to the post-op floor and started on: Physical Therapy: Yes Pain Management: Percocet and Vistaril Complications: none Consultations: none Comorbidities/Patient Active Hospital Problem List: Patient Active Problem List Diagnosis ??? SPINAL [...] and epididymitis ??? GERD (GASTROESOPHAGEAL REFLUX DISEASE) Discharge Information: Condition at discharge: Nutritional intake adequate, No nausea or vomiting, Vital signs stable, voiding and Wound clean and Intact Discharge destination: Home Medications at discharge: Discharge medication list as of today: Medication List START taking these medications cephALEXin 500 MG capsule Commonly known as: kiersten KEFLEX Take 2 Caps by mouth three times a day for 3 doses. docusate sodium 100 MG capsule Commonly known as: kiersten COLACE Take 1 Cap by mouth two times a day. hydrOXYzine pamoate 25 MG capsule Commonly known as: VISTARIL Take 1-2 Caps by mouth every 4 hours as needed for Itching (for pain, itching or nausea). oxyCODONE-acetaminophen 5-325 MG tablet Commonly known as: kiersten PERCOCET Take 1-2 Tabs by mouth every 4 hours as needed for Pain. 1 tab for moderate pain, 2 tabs for severe pain. Max Acetaminophen/day = 4000 mg sennosides-docusate sodium 8.6-50 MG tablet Commonly known as: kiersten SENNA-S,SENNA PLUS Take 1 Tab by mouth two times a day. CHANGE how you take these medications ICAPS AREDS FORMULA OR 1 Tab two times a day. What changed: Another medication with the same name was removed. Continue taking this medication, and follow the directions you see here. CONTINUE taking these medications ALBUterol sulfate HFA 108 (90 BASE) MCG/ACT inhaler Inhale 2 Puffs by mouth every 4 hours as needed for Wheezing. allopurinol 100 MG tablet Commonly known as: kiersten ZYLOPRIM TAKE 1 TABLET BY MOUTH DAILY budesonide-formoterol 160-4.5 MCG/ACT inhaler Commonly known as: SYMBICORT Inhale 2 Puffs by mouth two times a day. dorzolamide 2 % eye drop solution Commonly known as: kiersten TRUSOPT Apply or instill 1 Drop into both eyes two times a day. fluticasone 50 MCG/ACT nasal solution Commonly known as: kiersten FLONASE Apply or instill 2 Sprays into both nostrils two times a day. gabapentin 300 MG capsule Commonly known as: kiersten NEURONTIN Take 300 mg by mouth three times a day. guaiFENesin 600 MG 12 hour release tablet Commonly known as: kiersten MUCINEX Take 1,200 mg by mouth two times a day. omeprazole 20 MG capsule Commonly known as: kiersten PRILOSEC TAKE ONE CAPSULE BY MOUTH TWICE DAILY ONE HOUR BEFORE A MEAL STOP taking these medications acetaminophen 500 MG tablet Commonly known as: kiersten TYLENOL EXTRA STRENGTH ibuprofen 200 MG tablet Commonly known as: kiersten MOTRIN Follow-Up Care: The patient will be followed in the office in 2 weeks NAME: Brian Thomas PA-C PHONE NUMBER: [phone] For information about patient referrals and other discharge orders, please see Discharge Instructions or the Other Orders tab in Chart Review. --End of Report-- documented in this encounter Discharge Instructions Discharge InstructionsArcelia Elias RN - 10/30/2015 11:23 AM CDT Contact Information [address] [address] Main or [phone] Same Day Surgery, M-F 7am to 5pm: [phone] Clinic Phone Numbers [facility] [phone] [facility] [phone] Emergency & Urgently Needed Care: For emergencies call 911 and/or get medical help right away. If you are a [facility] member and have medical needs after clinic hours you may call the [facility] [phone] or . Healthy Habits - Move! Aim [...] moderation - Choose healthy sources of fat: Snow, peanut or canola oils, 1/4 cup nuts [...] doctor/pharmacist if it is safe to take mncu-aua-mqgqsov drugs or herbs with your prescribed medicine. [...] further assistance after your discharge, please contact [phone] or visit [email or web address] can offer further [...] Ask what your ideal weight should be. Special Instruction: Activities: Activities per MD instructions until next clinic appointment No driving for 24 hours after surgery or while taking narcotics Return to work as instructed by your physician Weight bearing status: As tolerated Ice to surgery site for 30 minutes 3-4 times per day for pain/swelling No lifting over 10 pounds. Diet: Resume pre-hospital diet, progress slowly Wound/Incision: Change dressing daily until no drainage, then leave open to air. Continue to assess incision daily. May shower: when showering for the next 7 days REMOVE outer gauze dressing and cover your incision with plastic wrap and tape. Shower as usual, after showering, remove plastic wrap and tape, wipe around incision with clean washcloth. Allow steri strips to air dry for at least 30 mintues before applying new dressing. DO NOT SOAK INCISION - NO TUB BATHING, HOT TUBBING, SAUNA OR SWIMMING UNTIL WOUND IS COMPLETELY HEALED AND OK'D BY . Steri-strips, will fall off themselves Information given on: Treatment, diagnosis, surgery Pain Medications: Keep a journal/record of when you take your pain medications Do not take on an empty stomach; take with a meal or a small snack Take an nxhf-tgt-eyghwhp stool softener while taking narcotics (ex: Senna, Miralax, Colace) as narcotics cause constipation Take pain pill(s) before pain has become uncomfortable - it takes 30-45 minutes for analgesic effect Take medication on a regular basis/scheduled for the first several days, then wean as tolerated Danger signs to watch for: Temperature above 101 degrees and/or chills Increased redness, drainage or swelling Persistent nausea Increased warmth, redness, swelling or pain in either leg Increased pain in surgical site or affected area Special Orthopedics: Wear support stocking(s) a minimum of 12 hours a day until your clinic visit. Stockings on in am, off at night. Hand wash stockings or place in washer on cool delicate setting- hang dry stockings or lay flat to dry. Follow-up appointment with Dr. Mae or physician executive staff assistant in 2 weeks. We hope you had a positive experience and that you can definitely recommend [facility] to your family and friends. AttachmentsThe following attachments cannot be sent through Care Everywhere. LUMBAR LAMINECTOMY FOR SPINAL STENOSIS: POST-OP (BELARUSIAN)documented in this encounter Medications at Time of [...] home health clinician.] fluticasone (AKA Place 1 [place] into 0 08/03/2013 FLONASE) 50 MCG/ACT both nostrils two nasal times a day. solutionIndications: Indications: Allergic Allergic Rhinitis Rhinitis Multiple [The details of the 0 Vitamins-Minerals medication are not (ICAPS AREDS FORMULA available because OR)Indications: there are pending supplement changes by a home health clinician.] cephALEXin (AKA KEFLEX) Take 2 Caps by mouth 6 Cap 0 10/30/2015 500 MG capsule three times a day for 3 doses. allopurinol (AKA TAKE 1 TABLET BY MOUTH 90 Tab 0 016 11/04/2015 ZYLOPRIM) 100 MG tablet DAILY budesonide-formoterol Inhale 2 Puffs by 10.2 g 0 014 01/16/2016 (SYMBICORT) 160-4.5 mouth two times a day. MCG/ACT inhaler docusate sodium (AKA Take 1 Cap by mouth 100 Cap 0 201501/16/2016 COLACE) 100 MG capsule two times a day. gabapentin (AKA Take 300 mg by mouth 0 01/16/2016 NEURONTIN) 300 MG three times a day. capsule guaiFENesin (AKA Take 1,200 mg by mouth 0 11/09/2016 MUCINEX) 600 MG 12 hour two times a day. release tablet Reported on 10/13/2016 hydrOXYzine pamoate Take 1-2 Caps by mouth 60 Cap 0 10/1301/16/2016 (VISTARIL) 25 MG every 4 hours as capsule needed for Itching (for pain, itching or nausea). omeprazole (AKA TAKE ONE CAPSULE BY 180 Cap 3 08/13/2015 08/05/2016 PRILOSEC) 20 MG capsule MOUTH TWICE DAILY ONE HOUR BEFORE A MEAL oxyCODONE-acetaminophen Take 1-2 Tabs by mouth 60 Tab 0 10/29/2015 01/16/2016 (AKA PERCOCET) 5-325 MG every 4 hours as tablet needed for Pain. 1 tab for moderate pain, 2 tabs for severe pain. Max Acetaminophen/day = 4000 mg sennosides-docusate Take 1 Tab by mouth 20 Tab 0 016 01/16/2016 sodium (AKA two times a day. SENNA-S,SENNA PLUS) 8.6-50 MG tablet documented as of this encounter Progress Notes Brian Thomas PA-C - 10/30/2015 9:26 AM CDT [facility] Spine Progress Note - Lumbar Post-operative Day: 1 Day Post-Op Surgical Procedures: Procedure(s) (LRB): L3-4, L4-5 LATERAL RECESS DECOMPRESSION (Left) Diagnosis: lumbar spinal stenosis Subjective: Pt seen and examined. Doing well. VSS. AF. Ambulating. Voiding (self caths). Pain: mild Pain location: LBP Chest pain, SOB: No Paresthesias/weakness: Denies paresthesias or weakness bilateral LE Objective: Vital signs in last 24 hours His height is 5' 7 (1.702 m) and weight is 107.531 kg (237 lb 1 oz). His oral temperature is 98 ??F(36.7 ??C). His blood pressure is 126/73 and his pulse is 74. His respiration is 16 and oxygen saturation is 97%. His body mass index is 37.12 kg/(m^2). Motor: 5/5 strength hip flexors and adductors, quads, hamstrings, AT, EHL, and gastrocs bilateral LE Sensation: Intact sensation all dermatomes L2-S1 bilateral LE Circulation: Dorsalis Pedis 2+ bilateral LE Wound status: clean, dry, intact Calf tenderness: Bilateral None Recent Labs: Recent Labs 10/29/15 0909 10/29/15 1532 WBC 5.3 -- HGB 15.2 14.7 HCT 46.0 44.1 PLTS 160 -- Plan: Doing well. OK to d/c home. Restrictions reviewed. Questions answered. No concerns. 2 week recheck appointment. Continue cares and rehabilitation, lumbar corset when out of bed. Anticoagulation protocol: Mechanical and/or ambulation Pain medications: Percocet and Vistaril Weight bearing status: WBAT Disposition: Home today Report completed by: Brian Thomas PA-C Date: 10/30/2015 Time: 9:26 AM documented in this encounter H&P Notes Rita Yost MD - 10/29/2015 9:33 AM CDT [facility] Interval History and Physical Note The attached H&P has been reviewed. The patient was examined. Source Note - Ramses Cleary MD - 10/19/2015 10:46 AM CDT Pre-operative History and Physical Assessment Name: Zaid Rutledge : 1935 Primary physician: Ramses Cleary MD. Historical: Zaid Rutledge is a 80 y.o. old male is here for preoperative cardiac and risk evaluation. Patient is scheduled for back surgery on 10/29/[address] Pierre at [place]. Pertinent history: Has been having back pain. Scheduled for L3-4, L4-5 LATERAL RECESS DECOMPRESSION . Has been using a lot of Tylenol and ibuprofen Preoperative Screening Questions: Any problems with / history of... Tightening or pressure in chest with activity? no Waking at night with shortness of breath? no Swelling of feet or ankles recently? no Difficulty sleeping flat at night because of shortness of breath? no Troubled by shortness of breath when Walking on the level? Climbing a flight of stairs? YES no Getting pains in the calf muscles when walking? YES sometimes Chest sounds like wheezy or whistling? YES asthma Cough, runny nose, or cold symptoms currently? no A chronic cough? YES Bleeding or clotting problems for you or close relatives? no Herbal supplements or medications not on the med list being taken? no Taking steroids or immunosuppressive medications. no Aspirin or NSAIDS taken in the last two weeks? YES took asa on 10/18/15 Anemia or taking iron pills? no Anesthesia [...] walk up a gradual uphill without stopping? unable to determine due to back pain. Medications: Current Outpatient Prescriptions Medication Sig Dispense Refill ??? acetaminophen (AKA TYLENOL EXTRA STRENGTH) 500 MG tablet Take 1,000 mg by mouth two times a day. ??? ALBUterol sulfate hfa 108 (90 BASE) MCG/ACT inhaler Inhale 2 Puffs by mouth every 4 hours as needed for Wheezing. 8.5 g 11 ??? allopurinol (AKA ZYLOPRIM) 100 MG tablet TAKE 1 TABLET BY MOUTH DAILY 90 Tab 0 ??? budesonide-formoterol (SYMBICORT) 160-4.5 MCG/ACT inhaler Inhale 2 Puffs by mouth two times a day. 10.2 g 0 ??? dorzolamide (AKA TRUSOPT) 2 % eye drop solution Apply or instill 1 Drop into both eyes two timesa day. ??? fluticasone (AKA FLONASE) 50 MCG/ACT nasal solution Apply or instill 2 Sprays into both nostrilstwo times a day. ??? guaiFENesin (AKA MUCINEX) 600 MG 12 hour release tablet Take 1,200 mg by mouth two times a day. ??? ibuprofen (AKA MOTRIN) 200 MG tablet Take 200 mg by mouth every 4 hours as needed for Pain. ??? Multiple Vitamins-Minerals (ICAPS AREDS FORMULA OR) 1 Tab two times a day. ??? Multiple Vitamins-Minerals (ICAPS MV) ??? omeprazole (AKA PRILOSEC) 20 MG capsule TAKE ONE CAPSULE BY MOUTH TWICE DAILY ONE HOUR BEFORE A MEAL 180 Cap 3 No current facility-administered medications for this visit. Allergies: Banana and Excedrin Patient Active Problem List Diagnosis ??? SPINAL [...] and epididymitis ??? GERD (GASTROESOPHAGEAL REFLUX DISEASE) Habits: History Substance Use Topics ??? Smoking status: Former Smoker Quit date: 12/24/1997 ??? Smokeless tobacco: Never Used ??? Alcohol Use: 4.2 oz/week 7 Standard drinks or equivalent per week Comment: moderate Past Surgical History Procedure Laterality Date ??? [...] ??? 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 Weight as of this encounter: 237 lb (107.502 kg). General: ambulatory, well nourished, alert. HEENT: oropharynx is normal. Neck: Thyroid not enlarged. No bruits. No jugular venous distention Cardiovascular: regular rate and rhythm, normal S1 and S2 without murmur or click Chest/Lungs: clear to auscultation, no wheezes or rales Abdomen: Soft, non-tender, no masses, no hepatomegaly or splenomegaly. Extremities: No cyanosis, clubbing or edema. Pulses intact. Neurologic: Alert and oriented to person, place and time. Skin: No rash Data: Labs: Results for orders placed or performed in visit on 10/19/15 BASIC METABOLIC PANEL Result Value Ref Range SODIUM 143 135 - 145 mmol/L POTASSIUM 4.1 3.5 - 5.3 mmol/L CHLORIDE 106 95 - 106 mmol/L CO2 27 22 - 30 mmol/L ANION GAP (CALC.) 10 7 - 16 mmol/L GLUCOSE 94 70 - 180 mg/dl CALCIUM 8.3 (L) 8.4 - 10.2 mg/dl BUN 19 7 - 20 mg/dl CREATININE 1.13 0.66 - 1.25 mg/dl GFR, ESTIMATED >60 >60 ml/min/1.73m2 GFR EST IF >60 >60 ml/min/1.73m2 LIVER PANEL(HEPATIC FUNCTION PANEL) Result Value Ref Range ALKALINE PHOSPHATASE 63 38 - 126 U/L BILIRUBIN, TOTAL 0.5 0.2 - 1.3 mg/dl BILIRUBIN, DIRECT 0.1 0.0 - 0.3 mg/dl ALT (SGPT) 47 12 - 78 U/L AST (SGOT) 29 0 - 40 U/L PROTEIN, TOTAL 7.3 6.3 - 8.2 g/dl ALBUMIN 3.6 3.5 - 5.0 g/dl A/G RATIO, CALC. 1.0 (L) >1.0 BILIRUBIN, INDIRECT 0.4 mg/dl ECG 12-LEAD ROUTINE Result Value Ref Range VENTRICULAR RATE 64 BPM ATRIAL RATE 64 BPM P-R INTERVAL 144 ms QRS DURATION 90 ms QT 418 ms QTC 431 ms P AXIS -7 degrees R AXIS -10 degrees T AXIS -3 degrees GOLD HOLD TUBE (OR RED/BASS) Result Value Ref Range GOLD HOLD TUBE Held in Chemistry sample rack for 7 days ECG: done today, normal sinus rhythm, no other signficant findings, no comparison made Assessment and Plan: Pre-op cardiac & risk evaluation: Patient is medically optimized for planned procedure. Cardiac risk for the planned procedure is INTERMEDIATE Cardiac risk factor assessment: heart disease history (NE, angina, CABG, coronary stent)? no History of [...] listed in patient instructions below. Special risks: Hx of Asthma. This has been in good control Reference links: Beta-blockers, ICSI perioperative guideline Drugs to stop/continue, ICSI perioperative guideline General index, ICSI peroperative guideline Obstructive sleep apnea risk assessment Delirium risk assessment Preoperative cardiac evaluation algorithm from [facility] Electronically Signed By: Ramses Cleary MD 10/19/2015, 1:02 PM CC: documented in this encounter Procedure Notes Douglas Mae MD - 10/29/2015 11:58 AM CDT [facility] Brief Orthopaedic Operative Note Surgery Date: 10/29/2015 Surgeon(s) and Role: * Douglas Mae MD - Primary * Mahin Dimas PA-C - Assisting Pre-op Diagnosis: * Lumbar spinal stenosis [M48.06] Post-op Diagnosis: * Lumbar spinal stenosis [M48.06] Procedure(s) (LRB): L3-4, L4-5 LATERAL RECESS DECOMPRESSION (Left) EBL: 50cc Specimens: none Complications: none Findings: See full dictated operative note Recommended follow up: 21 days Douglas Mae MD Douglas Mae MD - 10/29/2015 12:00 AM CDT NAME: Zaid Rutledge : 1935 DATE OF SERVICE: 10/29/2015 DATE OF SURGERY: 10/29/2015 PREOPERATIVE DIAGNOSES: 1. Left L3-L4 lateral recess stenosis. 2. Left L4-L5 lateral recess stenosis. POSTOPERATIVE DIAGNOSES: 1. Left L3-L4 lateral recess stenosis. 2. Left L4-L5 lateral recess stenosis. PROCEDURE PERFORMED: 1. Left L3-L4 hemilaminotomy with left L3-L4 partial medial facetectomy and decompression of the left L4 nerve root. 2. Left L4 hemilaminotomy with left L4-L5 partial medial facetectomy and decompression of the left L5 nerve root. 3. Use of operative microscopy. ATTENDING SURGEON: Douglas Mae MD SAFETY COUNSELOR: Mahin Dimas PA-C. Please note this procedure technically required an executive staff assistant for the safety of the patient. Wing is an experienced PA in spinal surgery. His assistance was imperative and necessary to protect the surrounding neural structures while I performed the decompressive phase of the procedure. ANESTHESIA: General endotracheal anesthesia. ESTIMATED BLOOD LOSS: 50 mL. PACKS/DRAINS: None. COMPLICATIONS: None. CONDITION: Stable. DISPOSITION: Postanesthesia care unit. INDICATIONS: The patient is a pleasant gentleman who presented to my office with complaints of significant left-sided lower extremity radicular symptoms matching with the L4 and L5 dermatome. A MRI demonstrated evidence of significant lateral recess encroachment on the left at L4 and L5 into the latera l recess. A trial of conservative care was attempted and was unsuccessful and the patient opted for surgical intervention. A detailed description of the risks, benefits, and treatment alternatives inherent to the operation was explained in advance to the patient, including but not limited to failure to improve, cerebrospinal fluid leakage, hemorrhage, infection, permanent or transient nerve root damage, need for future surgery. Despite these risks, he elected to proceed. He was then seen by his primary care physician and scheduled for surgery. PROCEDURE: The patient was met in the preoperative holding area by me at which time the consent was reviewed and signed. The operative site was marked on the patient's back. He was then seen by the anesthesia service and escorted back to the operating room. Upon arrival in the operating room, the patient was intubated by the anesthesia service without complication and then flipped from the supine to prone position on the Alberto frame with special attention paid to padding bony prominences or superficial nerves. His abdomen and genitals were found to be hanging free. The patient's back was then prepped and draped in a normal sterile fashion. At this point, a timeout was called to ensure the proper procedure to be performed, as well as the administration of prophylactic antibiotics. Once this was completed, the procedure began. C-arm fluoroscopic imaging was brought into the lateral plane and under lateral fluoroscopic imaging we advanced the spinal needle through the skin to approximate the level of the L4-L5 and L3-L4 disk spaces. Once this was confirmed, the skin was marked and the needle wasremoved. A midline incision was made extending between the spinous processes of L3 and L5 and carried down through subcutaneous tissue and underlying fat. The deep fascia was incised longitudinally in the direction of its fibers. Subperiosteal dissection was carried out over the left hemilamina of L3 and L4, out to the facet joints at L3-L4 and L4-L5 respectively. We then utilized a high-speed bur tomake a permanent nivia at the inferior edge of the hemilamina of L3 and L4, and a lateral fluoroscopic image confirmed the correct operative level. The C-arm was removed and the operating microscope wasdraped and brought in. Under operative microscopy, we identified our permanent nivia at L3 and then placed a self-retaining retractor and then utilized a high-speed bur to perform a hemilaminotomy and partial medial facetectomy. We identified the pars interarticularis and maintained its integrity throughout the procedure. 2 and 3 mm Kerrison were used to complete the partial facetectomy and hemilaminot lety. We then detached the ligamentum flavum from the undersurface of the L4 hemilamina and removed this in a piecemeal fashion caudad to cephalad with 2 and 3 mm Kerrisons. There was a significant amount of dorsal and lateral compression particularly within the lateral recess which was fully resected.The thecal sac were found to regain its normal shape and pulsatile flow. We decompressed laterally until the medial border of the L4 pedicle could be appreciated and a ball-tipped probe could be safelyplaced out without obstruction, and the decompression was felt to be complete. At this point, we directed our attention 1 level caudad to the L4 hemilamina, where again we identified our permanent nivia. We used a high-speed bur to perform a small laminotomy and partial medial facetectomy at L4-L5. A small laminotomy at L5 was also performed. We then detached the ligamentum flavum and removed this in a piecemeal fashion caudad to cephalad with 2 and 3 mm Kerrisons, decompressing over the dorsal and lateral aspect of the thecal sac in the process. We decompressed laterally until the medial border of the L5 pedicle could be appreciated and a ball-tipped probe could be safely placed out under the pedicle and out the foramen without obstruction. At this point, the decompression was felt to be complete. We then copiously irrigated both sides with normal saline, maintained hemostasis with bipolar electrocautery and thrombin paste, irrigated once again, then removed the retractor and closed in layers beginning with the deep fascia which was closed with a #1 Vicryl suture. Subcutaneous tissue was closed with 2-0 interrupted Vicryl suture, and skin was closed with a running subcuticular 4-0 stitch. Thewound was then cleaned and dried in normal fashion. Steri-Strips and gauze were applied. The drapes were removed. The patient was transferred from the prone to supine position at which point he was extubated by the anesthesia service without complication. All needle and sponge counts were correct at the end of the case. Douglas Mae MD CMD:sandy Dictated: 10/29/2015 14:56:53 Transcribed: 10/29/2015 15:34:54 Job: [id number] Doc: [id number] cc: documented in this encounter OR Notes H&P - Douglas Mae MD - 10/29/2015 9:50 AM CDT H&P reviewed. No new changes. documented in this encounter Plan of Treatment Scheduled Referrals Name Type Priority Associated Diagnoses Order S chedule Spine-Surgical Referral Routine ONCE for 1 Oc currences Consult-Adults starting 10/13 until 10/29/2015 Riynt-Jepnzfcz-Gowva Referral Routine Ordered : 10/30/2015 s documented as of this encounter Procedures Procedure Name Priority Date/Time Associated Comments Diagnosis GLUCOSE, WHOLE BLOOD Routine 10/30/2015 7:56 AM R esults for this POCT CDT procedure are i n the results section. HEMATOCRIT, BLOOD STAT 10/29/2015 3:32 PM Resu lts for this CDT procedure are i n the results section. HEMOGLOBIN, BLOOD STAT 10/29/2015 3:32 PM Resu lts for this CDT procedure are i n the results section. XR C-ARM 1.5-2 HOURS Routine 10/29/2015 12:19 Res ults for this PM CDT procedure are i n the results section. FORAMINOTOMY 10/29/2015 10:13 Lumbar spinal POSTERIOR APPROACH AM CDT stenosis (HRC) LUMBAR SPINE COMPLETE BLOOD Routine 10/29/2015 9:09 AM Results for this COUNT-NO DIFF CDT procedure are in the results section. documented in this encounter Results GLUCOSE, WHOLE BLOOD POC (10/30/2015 7:56 AM CDT) athologist Signature Glucose, Whole 109 70 - 180 [facility] Blood mg/dl [facility]OSP[facility] Specimen Anatomical Collection Method Collection Time Receive d Time (Source) Location / / Volume Laterality 10/30/2015 7:56 AM 6 8:17 CDT AM CDT Douglas Mae MD LAB_1 Performing Organization Address [facility] Phon e Number [phone] [address] HEMATOCRIT, BLOOD (10/29/2015 3:32 PM CDT) athologist Signature HCT 44.1 41.0 - 53.0 [facility] % HOSPITAL Specimen Anatomical Collection Method Collection Time Receive d Time (Source) Location / / Volume Laterality 10/29/2015 3:32 PM 6 3:33 CDT PM CDT [facility] - 10/29/2015 3:46 PM CD T Performed at [facility], [address] [place], [place] [id number] Douglas Mae MD LAB_1 Performing Organization Address City/[facility] e Number [address] [address] HEMOGLOBIN, BLOOD (10/29/2015 3:32 PM CDT) athologist Signature Hemoglobin 14.7 13.5 - 17.5 [facility] g/dl HOSPITAL Specimen Anatomical Collection Method Collection Time Receive d Time (Source) Location / / Volume Laterality 10/29/2015 3:32 PM 6 3:33 CDT PM CDT [facility] - 10/29/2015 3:46 PM CD T Performed at [facility], [address] [place] [address] Douglas Mae MD LAB_1 Performing Organization Address City/[facility]/ZIP [facility] Phon e Number [address] [address] XR C-ARM 1.5-2 HOURS (10/29/2015 12:19 PM CDT) Anatomical Region Laterality Modality X-Ray Angiography Specimen (Source) Anatomical Location Collection Method / Collectio n Time Received Time / Laterality Volume Narrative 10/29/2015 12:20 PM CDT This is an imaging order which does not require reading by a radiologist. The order is completed and status is fin al. Douglas Mae MD RAD GD HEMOGRAM/PLTS (10/29/2015 9:09 AM CDT) athologist Signature WBC 5.3 4.0 - 11.0 [facility] RBC 4.83 4.5 - 5.9 [facility] Hemoglobin 15.2 13.5 - 17.5 [facility] g/dl HOSPITAL HCT 46.0 41.0 - 53.0 [facility] MCV 95.2 80 - 100 fl [facility] MCH 31.5 26 - 34 pg [facility] MCHC 33.0 32 - 36 [facility] g/dl [facility] RDW 13.2 11.5 - 14.5 [facility] Platelets 160 150 - 450 [facility] MPV 9.7 6.5 - 11.0 [facility] Specimen Anatomical Collection Method Collection Time Receive d Time (Source) Location / / Volume Laterality 10/29/2015 9:09 AM 6 9:14 CDT AM CDT Narrative [facility] - 10/29/2015 9:18 AM CD T Performed at [facility], [address] [place] [address] Mahin Dimas PA-C LAB_1 Performing Organization Address City/[facility]/ZIP [facility] Phon e Number [address] [address] documented in this encounter Visit Diagnoses Plan of Franck - Arcelia Elias RN - 10/30/2015 1:21 PM CDT [facility] Discharge Note - Nursing Admission Date/Time: 10/29/2015 8:13 AM Attending MD: Douglas Mae MD Discharge Criteria:NONE Patient discharged: to Home. Discharge Date: 10/30/2015 Discharge Time: 1314 Patient accompanied by: spouse. Transported by: Wheelchair Valuables were taken home by patient: Yes Discharge instructions given and explained to patient: Yes Did the patient suffer a stroke? No Was patient discharged on Warfarin? {(Do not delete line; Warfarin documentation is required) No Patients general condition on discharge: Stable All medical devices (telemetry/IV/etc) unless otherwise ordered, have been removed and stored: Yes Report Completed by: Arcelia Elias RN --- End of Report --- Plan of Care - Yanely Quinn - 10/30/2015 12:34 PM CDT Pt was seen this morning for OT and was independent with all transfers and LE dressing. Pt was educated on back precautions and required min verbal cues throughout the first half of therapy. However, toward the end of the session, pt was able to adhere to his back precautions absent of verbal cues. Ptwas also educated on the benefits of using AE in order to help him maintain proper back posture. Pt is safe to manage all ADL's independently at home with there to assist if needed. All OT goals met. Discharge OT. Associated attestation - Christina Akins OTR/L - 10/30/2015 1:35 PM CDT OT observed entire student OT session with this patient. Care was safe and appropriate. Charges adequately reflected session. Plan of Franck - Charley Friedman - 10/30/2015 9:53 AM CDT CM met with patient to discuss discharge plans. Patient states that he plans to return home with assistance from . Patient states that is interested in home care for the dressing changes. Explained medicare benefits for home care. Suggested that patients have nurse instruct her on the dressing change before he leaves the hospital. Patient does not anticipate any other needs at this time. LUCAS Patten 10/30/2015, 9:55 AM Plan of Care - Eric Corral RN - 10/30/2015 6:57 AM CDT [facility] Plan of Care Note Assessment: Pain controlled with Oxycodone and Tylenol. HR regular, LSC, +BS, +BM, voiding well (self cath's). Ambulated douglas x2 with SBA Plan: Discharge to home today Plan of Care - Arabella Antunez RN - 10/29/2015 8:57 PM CDT [facility] Progress Note (Nursing) Assessment: Patient had an uneventful shift. Patient is oriented x4. Pain has been a 3-6/10 and has been controlled with Oxycodone/APAP. Patient has been ambulating with SBA and gait belt. CMS is intact. Dressing is CDI. Heart rate is regular. Lungs are CTA. Has active bowel sounds and is passing flatus. Is tolerating a regular diet with some belching and indigestion. Is voiding adequately via self catheterization. Labs: HGB (g/dl) Date Value 10/29/2015 14.7 Normal: 12-17 Vitals: BP 136/75 mmHg Pulse 87 Temp(Src) 97.5 ??F (36.4 ??C) (Axillary) Resp 20 Ht 5' 7 (1.702 m) Wt 107.531 kg (237 lb 1 oz) BMI 37.12 kg/m2 SpO2 97% Problem(s)/ Intervention(s): 1. Post-op pain -Being managed with oxycodone/APAP 2. Impaired mobility -Encourage ambulation as able. Encourage meals in chair. Plan: Continue to monitor and treat pain as ordered. Encourage ambulation. Tentative plan is to discharge to home when able. Arabella Antunez RN Plan of Care - Oliver Wooten RN - 10/29/2015 1:39 PM CDT [facility] Post-Op Note Admission Date/Time: 10/29/2015 8:13 AM Admitted to Med Surg on 10/29/2015 at 1330 pmfrom PACU into room 123. Transported by: Litter/cart Medical devices present on return from O.R.: IV Valuables/Belongings with patient upon arrival on unit: Dentures: upper Glasses:Yes Hearing aid:Yes both CPAP: No Jewelry: No General condition on return from O.R.: stable Report Completed by: Oliver Wooten RN --- End of Report --- documented in this encounter Administered Medications Inactive Administered Medications - up to 3 most recent administrations Medication Order MAR Action Action Date Dose Rate Site acetaminophen (aka TYLENOL) Given 10/30/2015 10:23 AM CDT 650 mg tablet 650 mg 650 mg, Oral, Q4H PRN, Pain, for mild to moderate pain, Starting on Thu10/29/15 at 1321, Until Thu10/30/15 at 1538, Do not use in liver disease., Post-op Given 10/30/2015 6:21 AM CDT 650 mg Given 10/30/2015 2:24 AM CDT 650 mg allopurinol (aka ZYLOPRIM) tablet 100 mg Given 10/30/2015 8:58 AM CDT 100 mg 100 mg, Oral, DAILY, First dose on Thu10/30/15 at 0800, Until Discontinued, Should administer after meals with plenty of fluids. aluminum-magnesium hydroxide-simethicone (aka Given 10:30 PM CDT 30 mL MAALOX) 200-200-20 MG/5ML oral liquid 30 mL 30 mL, Oral, ONCE, On Thu10/29/15 at 2245, For 1 dose, For gastric distress bacitracin 100,000 Units, gentamicin Given 10/29/2015 11:47 AM C DT Wound Site 1,000 mg, polymyxin B 1,000,000 Units in NaCl 0.9 % 1,000 mL irrigation INTRA-OP, 1 dose, Starting on Thu10/29/15 at 0819, Until Thu10/29/15 at 1147 benzocaine-menthol (aka CEPACOL) lozenge Given 016 10:30 PM CDT 1 Lozenge 1 Lozenge 1 Lozenge, Oral, Q2H PRN, Throat Pain, Starting on Thu10/29/15 at 1321, Until Thu10/30/15 at 1538, When tolerating PO., Post-op budesonide-formoterol (aka SYMBICORT) Given 10/30/2015 8:58 AM C DT 2 Puffs 160-4.5 MCG/ACT inhaler 2 Puff 2 Puff, Inhalation, BID, First dose on Thu10/29/15 at 2000, Until Discontinued Given 10/29/2015 8:21 PM CDT 2 Puffs bupivacaine 0.25% (PF) 0.25 % Given 10/29/2015 11:57 AM CDT 30 m L Wound Site injection SOLN INTRA-OP, Starting on Thu10/29/15 at 0819, Until Thu10/29/15 at 1157, For 1 dose, Verify Route and Dose with Surgeon Prior to Administration ceFAZolin (aka ANCEF) 2 g in dextrose Started 10/30/2015 2:24 AM CDT 2 g 200 mL/hr 100 ml IVPB 2 g, Intravenous, Administer over 30 Minutes, Q8H (NON-STND), First dose on Thu10/29/15 at 1830, For 2 doses, Start timing of post op antibiotics from pre op or intra op dose was given Discontinue no later than 24 hours after incision closure., Post-op Started 10/29/2015 6:39 PM CDT 2 g 200 mL/hr dorzolamide (aka TRUSOPT) 2 % eye drops 1 Given 10/30/2015 8:58 AM CDT 1 Drop Drop 1 Drop, Both Eyes, BID, First dose on Thu10/29/15 at 2000, Until Discontinued, If patient uses multiple eye drops, allow approximately 5 minutes between instillation of each medication. Given 10/29/2015 8:21 PM CDT 1 Drop fluticasone (aka FLONASE) 50 MCG/ACT nasal Given 10/29 8:55 AM CDT 2 Sprays spray 2 Shad[place]ide 2 [place], Both Nostrils, BID, First dose on Thu10/30/15 at 0800, Until Discontinued, Shake bottle gently before using. Prime pump prior to first use (press six times until fine mist appears) Blow nose to clear nostrils. Insert applicator into nostril, keeping bottle upright, and close off other nostril. Breathe in through the nose. While inhaling press pump to release spray. Nasal applicator may be removed and rinsed with warm water to clean. gabapentin (aka NEURONTIN) capsule 300 m g Given 10/30/2015 8:58 AM CDT 300 mg 300 mg, Oral, TID, First dose on Thu10/29/15 at 2000, Until Discontinued Given 10/29/2015 8:21 PM CDT 300 mg guaiFENesin (aka MUCINEX) extended release Given 10/29 8:58 AM CDT 1,200 mg tablet 1,200 mg 1,200 mg, Oral, BID, First dose on Thu10/29/15 at 2000, Until Discontinued, Tablet should be swallowed whole Given 10/29/2015 8:21 PM CDT 1,200 mg HYDROmorphone (aka DILAUDID) injection 0.5 Given 10/29/2015 12:57 PM CDT 0.5 mg mg 0.5 mg, Intravenous, [id number], Pain, Starting on Thu10/29/15 at 1217, Until Thu10/29/15 at 1320, Q 5 min PRN Pain maximum total dose = 2 mg Post op anesthesia PACU only. Nurse to discontinue order when patient discharged from PACU, PACU (only) lactated ringers infusion 1,000 mL Started 10/29/2015 10:45 AM CDT 1,000 mL, Intravenous, at 25 mL/hr, CONTINUOUS, Starting on Thu10/29/15 at 1030, To be used preop UNLESS patient has renal failure, then use NaCl 0.9% IV., Pre-op Started 10/29/2015 9:45 AM CDT 1,000 mL 25 mL/hr magnesium hydroxide (aka MILK OF MAGNESIA) Given 10/30/2015 8:58 AM CDT 10 mL oral liquid 10 mL 10 mL, Oral, DAILY, First dose on Thu10/30/15 at 0800, Until Discontinued, Hold for loose stools., Post-op NaCl 0.45%-KCl 20 mEq/liter Started 10/29/2015 1:57 PM CDT 1,000 m L 50 mL/hr infusion 1,000 mL 1,000 mL, Intravenous, at 50 mL/hr, CONTINUOUS, Starting on Thu10/29/15 at 1345, To replace nasogastric tube and/or chest tube output mL/mL May discontinue when IV antibiotics are complete and patient is tolerating PO intake, Post-op omeprazole (aka PRILOSEC) delayed release Given 10/29/2015 4:47 PM CDT 20 mg capsule 20 mg 20 mg, Oral, BID AC, First dose on Thu10/29/15 at 1630, Until Discontinued, Capsule should be swallowed whole oxyCODONE (aka ROXICODONE) tablet 5-10 m g Given 10/30/2015 10:23 AM CDT 5 mg 5-10 mg, Oral, PRN PER PARAMETERS, Pain, 1 tablet for moderate pain, 2 tablets for severe pain.?See Admin Instructions, Starting on Thu10/29/15 at 1321, Until Thu10/30/15 at 1538, Give 1 to 2 tablets every 4 hours per pain assessment. Oral Narcotic Analgesics to be given in following preferential sequence (unless allergic). If ineffective progress to the next preferred agent. 1. OxyCODONE 2. HYDROmorphone 3. HYDROcodone-acetaminophen, Post-op Given 10/30/2015 6:21 AM CDT 5 mg Given 10/30/2015 2:24 AM CDT 5 mg pantoprazole (aka PROTONIX) tablet 40 mg Given 10/30/2015 6:21 AM CDT 40 mg 40 mg, Oral, DAILY AT 0600, First dose on Thu10/30/15 at 0600, Until Discontinued, Tablet should be swallowed whole, Post-op sennosides-docusate sodium (aka Given 10/30/2015 8:58 AM CDT 1 T ablet SENNA-S,SENNA PLUS) 8.6-50 MG tablet 1 T ab 1 Tablet, Oral, BID, First dose on Thu10/30/15 at 0800, Until Discontinued, as laxative/stimulant, stool-softening agent, Post-op SURGIFOAM POWDER 1 GM Given 10/29/2015 11:47 AM CDT 1 g Othe r (Comment) INTRA-OP, Starting on Thu10/29/15 at 0819, For 1 dose, Verify Route and Dose with Surgeon Prior to Administration temazepam (aka RESTORIL) capsule 15 mg Given 10/29/2015 10:30 PM CDT 15 mg 15 mg, Oral, HS PRN, Sleep, Starting on Thu10/29/15 at 1321, Until Thu10/30/15 at 1538, Post-op thrombin topical liquid Given 10/29/2015 11:47 AM 5,000 Units Other (C omment) INTRA-OP, Starting on Thu CDT 10/29/15 at 0819, Until Thu10/29/15 at 1147, For 1 dose, Verify Route and Dose with Surgeon Prior to Administration documented in this encounter Active and Recently Administered Medications Times are shown in CDT. Scheduled Medication Order 10/28/2015 10/29/2015 10/30/2015 allopurinol (aka ZYLOPRIM) tablet 100 mg (CANCELED) 08 (Given - Provider: Arcelia Elias RN) 100 mg, Oral, DAILY, First dose on Thu10/30/15 at 0800, Until Di scontinued aluminum-magnesium hydroxide-simethicone (aka MAALOX) 200-200-20 MG/5ML oral liquid 30 mL (COMPLETED) 2229 (Given - Provider: Arabella ching, EULOGIO) 30 mL, Oral, ONCE, On Thu10/29/15 at 2245, For 1 dose, For gastr ic distress bacitracin 100,000 Units, gentamicin 1,0 00 mg, polymyxin B 1,000,000 Units in NaCl 0.9 % 1,000 mL irrigation (COMPLETED) 1147 (Given - Provider: Keyana Torrez RN) INTRA-OP, 1 dose, Starting Thu10/29/15 at 0819, Until Discontinu ed budesonide-formoterol (aka SYMBICORT) 160-4.5 MCG/ACT inhaler 2 Puff (CANCELED) 2020 (Given - Provider: Arabella Antunez RN) 0858 (Giv en - Provider: Arcelia Elias RN) 2 Puff, Inhalation, BID, First dose on Thu10/29/15 at 2000, Until Discontinued bupivacaine 0.25% (PF) 0.25 % injection SOLN (COMPLETED) 1157 (Given - Provider: Keyaan Trorez RN) INTRA-OP, 1 dose, Starting Thu10/29/15 at 0819, Until Discontinu ed ceFAZolin (aka ANCEF) 2 g in dextrose 100 ml IVPB (COMPLETED ) 183 (Started - Provider: Arabella Antunez RN)1909 (Infused - Provider: Arabella Antunez RN) 0224 (Started - Provider: Eric Corral, EULOGIO)0254 (Infused - Provider: Eric Corral RN) 2 g, Intravenous, Q8H (NON-STND), 2 dose s, First dose on Thu10/29/15 at 1830, Last dose on Thu10/30/15 at 0230, Post-op ceFAZolin (aka ANCEF) 2 g (CANCELED) 102 5 (Started - Provider: Valerie Pinon APRN, BILLET HEATER) 2 g, Intravenous, ONCE (NON-SCHEDULED), Starting Thu10/29/15 at 0747, Until Discontinued, Pre-op dorzolamide (aka TRUSOPT) 2 % eye drops 1 Drop (CANCELED) 2020 (Given - Provider: Arabella Antunez RN) 0858 (Given - Provider: Arcelia Elias RN) 1 Drop, Both Eyes, BID, First dose on Thu10/29/15 at 2000, Until Discontinued fluticasone (aka FLONASE) 50 MCG/ACT nasal spray 2 [place]ide (CANCEL ED) 0855 (Given - Provider: Arcelia Elias RN) 2 [place], Both Nostrils, BID, First dose on Thu10/30/15 at 0800, Until Discontinued gabapentin (aka NEURONTIN) capsule 300 mg (CANCELED) 2020 (Given - Provider: Arabella Antunez RN) 0858 (Given - Provider: Arcelia Elias RN) 300 mg, Oral, TID, First dose on Thu10/29/15 at 2000, Until Disc ontinued guaiFENesin (aka MUCINEX) extended release tablet 1,200 mg ( CANCELED) 2020 (Given - Provider: Arabella Antunez RN) 0858 (Given - Provider: Arcelia Elias RN) 1,200 mg, Oral, BID, First dose on Thu10/29/15 at 2000, Until Di scontinued magnesium hydroxide (aka MILK OF MAGNESIA) oral liquid 10 mL (CA NCELED) 0858 (Given - Provider: Arcelia Elias RN) 10 mL, Oral, DAILY, First dose on Thu at 0800, Until Discontinued, Post-op omeprazole (aka PRILOSEC) delayed release capsule 20 mg (CAN CELED) 1646 (Given - Provider: Arabella Antunez RN) 20 mg, Oral, BID AC, First dose on Thu10/29/15 at 1630, Until Di scontinued pantoprazole (aka PROTONIX) tablet 40 mg (CANCELED) 620 (Given - Provider: Eric Corral RN) 40 mg, Oral, DAILY AT 0600, First dose o n Thu10/30/15 at 0600, Until Discontinued, Post-op sennosides-docusate sodium (aka SENNA-S, SENNA PLUS) 8.6-50 MG tablet 1 Tab (CANCELED) 857 (Given - Provid er: Arcelia Elias RN) 1 Tab, Oral, BID, First dose on 10/29 at 0800, Until Discontinued, Post-op SURGIFOAM POWDER 1 GM (COMPLETED) 1147 ( Given - Provider: Keyana Torrez RN - Comment: Mixed into pastes with 5000 units Topical Thrombin) INTRA-OP, 1 dose, Starting Thu10/29/15 at 0819, Until Discontinu ed thrombin topical liquid (COMPLETED) 1147 (Given - Provider: Keyana Torrez RN - Comment: Mixed into paste with 1g. Gelfoam Powder) INTRA-OP, 1 dose, Starting Thu10/29/15 at 0819, Until Discontinu ed Continuous Medication Order 10/28/2015 10/29/2015 10/30/2015 lactated ringers infusion 1,000 mL (CANCELED) 0945 (Started - Provider: Kam Acosta RN)1045 (Started - Provider: Valerie Pinon APRN, BILLET HEATER)1218 (Infused - Provider: Valerie Pinon APRN, BILLET HEATER) 1,000 mL, at 25 mL/hr, Intravenous, CONT INUOUS, Starting 10/29/15 at 1030, Until Discontinued, Pre-op NaCl 0.45%-KCl 20 mEq/liter infusion 1,000 mL (CANCELED) 1357 (Started - Provider: Oliver Wooten, EULOGIO) 0922 (Stopped - Provider: Arcelia lara RN) 1,000 mL, at 50 mL/hr, Intravenous, CONT INUOUS, Starting 10/29/15 at 1345, Until Discontinued, Post-op PRN Medication Order 10/28/2015 10/29/2015 10/30/2015 acetaminophen (aka TYLENOL) tablet 650 mg (CANCELED) 1802 (Given - Provider: Arabella Antunez RN)2230 (Given - Provider: Arabella Antunez RN) 0224 (Given - Provider: Eric Corral RN)0621 (Given - Provider: Eric Corral RN)1023 (Given - Provider: Arcelia Elias RN) 650 mg, Oral, Q4H PRN, Starting Mon 10/28 at 1321, Until Discontinued, Pain, for mild to moderate pain, Post-op benzocaine-menthol (aka CEPACOL) lozenge 1 Lozenge (CANCELED ) 2230 (Given - Provider: Arabella Antunez RN) 1 Lozenge, Oral, Q2H PRN, Starting Mon at 1321, Until Discontinued, Throat Pain, Post-op HYDROmorphone (aka DILAUDID) injection 0.5 mg (CANCELED) 1257 (Given - Provider: Eagle Luong RN) 0.5 mg, Intravenous, [id number], Starting 10/29/15 at 1217, Until Discontinued, Pain, PACU (only) oxyCODONE (aka ROXICODONE) tablet 5-10 mg (CANCELED) 1350 (Given - Provider: Oliver Wooten RN)1802 (Given - Provider: Arabella Antunez RN)2230 (Given - Provider: Arabella Antunez RN) 0224 (Given - Provider: Eric J Corral, RN)0621 (Given - Provider: Eric Corral RN)1023 (Given - Provider: Arcelia Elias RN) 5-10 mg, Oral, PRN PER PARAMETERS, Start ing 10/29/15 at 1321, Until Discontinued, Pain, 1 tablet for moderate pain, 2 tablets for severe pain.?See Admin Instructions, Post-op temazepam (aka RESTORIL) capsule 15 mg (CANCELED) 2229 (Given - Provider: Arabella Antunez RN) 15 mg, Oral, HS PRN, Starting Mon 6 at 1321, Until Discontinued, Sleep, Post-op documented in this encounter Care Teams Recycling Manager Relationship Specialty Start Date End Date Ramses Cleary MD PCP - General Family Practice 10/21/11 documented as of this encounter
--- OUTSIDE RECORDS SUMMARY | 2022-02-24 12:24 | XMS_ITS | Encounter Summary ---
:1935 Author [facility] Address [address], [place] [address] Care Team Providers Name Role Phone Morgan Bass DO Primary Care Provider Reason for Referral Procedure/Equipment (Routine) - Closed Specialty Diagnoses / Procedures Referred By Contact Refer red To Contact Radiology [place] Diagnoses Gait instability Morgan Bass Radiology Procedures MR Brain W/WO IV Cont MR Brain WO IV Cont DO [place] [address] [facility] [address] [place] [address] Referral ID Status Reason Start Date Expiration Date Visits Requ ested Visits Authorized [id number] Closed 10/06/2016 01/05/2018 1 1 Consult/Transfer Care (Routine) - Closed Specialty Diagnoses / Procedures Referred By Contact Refer red To Contact Diagnoses Gait instability Morgan Bass DO [address] [place], [place] [address] Referral ID Status Reason Start Date Expiration Date Visits Requ ested Visits Authorized [id number] Closed 10/06/2016 01/05/2018 1 1 Scheduling Instructions Your provider has recommended an appoint ment with a [facility] Specialist. You may call [phone] to schedule your appointment. If you prefer, a optician will contact you within the ms xt 3 business days to assist you in setting up this appointment. We suggest you call your health insurance company about your coverage and benefits for this appointme nt. Reason for Visit Reason Comments Establish Care Encounter Details Date Type Department Care Team Description 10/06/2016 Office Visit [facility] Morgan Bass (Primary Dx); [facility] DO PROSTATE CANCER; Practice [address] Essential hypertension [address] [place] [place] [address] [place], [place] [phone] Social History Tobacco Use Types Packs/Day Years [...] Sign Reading Time Taken Comments Blood Pressure 145/82 10/06/2016 9:41 AM CDT Pulse 71 10/06/2016 9:41 AM CDT Temperature - - Respiratory Rate 16 10/06/2016 9:36 AM CDT Oxygen Saturation - - Inhaled Oxygen Concentration - - Weight 106.6 kg (235 lb) 10/06/2016 9:36 AM CDT Height 173.4 cm (5' 8.25) 10/06/2016 9:36 AM CDT Body Mass Index 35.47 10/06/2016 9:36 AM CDT documented in this encounter Progress Notes KaliMorgan, DO - 10/06/2016 10:35 AM CDT Chief Complaint Patient presents with ??? Establish Care HPI: Patient is a 81-year-old male who is coming in for recheck. Patient was seen last week with lightheadedness dizziness and double vision. At that time I elected to go ahead with the CT scan did talk to the radiologist about it and it came back as questionable normal pressure hydrocephalus. He doeshave gait instability but has no mental insufficiencies or incontinence we does not fit the classic triad but as he did have an enlarged ventricles I went ahead and ordered an MRI. We discussed this atlength today. Patient seemed to verbalize understanding. Of note patient does have a history of elevated blood pressures blood pressure still elevated in theoffice today so we discussed after getting a kidney function possibly adding a medication for his blood pressure he was agreeable to this. He also states his is very concerned about his heart. Looking back in the last 6-9 months he has had a complete workup with cardiac echocardiogram and a rn cardiac and I discussed at this point I do not feel the need to repeat all of that testing. Patient states today he is no longer having the vertigo symptoms but is still very unsteady on his feet and is concerned about that. He also denies any other complaints such as nausea vomiting or that the double vision he was having previously. Current Outpatient Prescriptions Medication Sig Dispense Refill [...] by mouth two times a day. ??? LORazepam (ATIVAN) 1 MG tablet Take 1 tablet 30 minutes before scan 2 Tab 0 ??? montelukast (SINGULAIR) 10 MG tablet Take 10 mg by mouth every evening. ??? Multiple Vitamins-Minerals (ICAPS AREDS FORMULA OR) 1 Tab two times a day. ??? omeprazole (PRILOSEC) 20 MG capsule TAKE ONE CAPSULE BY MOUTH TWICE DAILY ONE HOUR BEFORE A [id number] Cap 0 No current facility-administered medications for this visit. ROS: see HPI OBJECTIVE Filed Vitals: 10/06/16 0941 BP: 145/82 Pulse: 71 Resp: General Examination General Appearance:stated age, in no distress ASSESSMENT: ICD-10-CM 1. Gait instability R26.81 MR Brain WO IV Cont Neurology Consult-Adults LORazepam (ATIVAN) 1 MG tablet 2. PROSTATE CANCER C61 Basic Metabolic Panel 3. Essential hypertension (HRC) I10 PLAN 1. Gait instability-still present with the CT scan results with questionable normal pressure hydrocephalus I did request her urgent referral to neurology as well as an MRI of his brain. We will go ahead and await these results. 2. History of prostate cancer continued follow-up with urology. 3. Elevated blood pressure in the office-BMP ordered we will await kidney function. Possibly add lisinopril for his blood pressure. 3. Total time spent with patient was greater than 25 minutes of which more than 50 percent was counseling regarding the above problems. This document was created with speech recognition software so there could be errors in phrasing or unintended word subsitiution. documented in this encounter Plan of Treatment Scheduled Referrals Name Type Priority Associated Diagnoses Order S chedule Neurology Consult-Adults Referral Routine Gait instability Ordered: 10/06/2016 documented as of this encounter Results MR Brain W/WO IV [...] 11 7 - 16 [facility] (calc.) mmol/L [facility] Glucose 104 70 - 180 [facility] mg/dl [facility] Calcium 9.3 8.4 - 10.2 [facility] mg/dl [facility] 18 7 - 26 [facility] mg/dl [facility] Comment: PLEASE NOTE CHANGE IN REFERENCE RANGE Creatinine 1.08 0.73 - 1.18 mg/dl [facility] Comment: PLEASE NOTE CHANGE IN REFERENCE RANGE GFR, Estimated >60 >60 ml/min/1.73m2 [facility] GFR, Est., If Black >60 >60 ml/min/1.73m2 [facility] Specimen Anatomical Collection Method Collection Time Receive d Time (Source) Location / / Volume Laterality 10/08/2016 7:48 AM 7 7:49 CDT AM CDT Narrative [facility] - 10/08/2016 8:21 AM CD T Performed at [facility], [address] [place] [address] Morgan Bass DO LAB_1 Performing Organization Address City/State/ZIP Code Phon e Number [phone] [address] documented in this encounter Visit Diagnoses Diagnosis Gait instability - Primary Abnormality of gait PROSTATE CANCER Malignant neoplasm of prostate Essential hypertension (HRC) Unspecified essential hypertension Gait instability Abnormality of gait PROSTATE CANCER Malignant neoplasm of prostate documented in this encounter Care Teams Blender Snuff Relationship Specialty Start Date End Date Morgan Bass DO PCP - General Family Practice 10/02/16 10/25/17 [address] [place] [address] documented as of this encounter
--- OUTSIDE RECORDS SUMMARY | 2022-02-24 12:24 | XMS_ITS | Encounter Summary ---
:1935 Author Organization [facility] Address [address], [place] [address] Care Team Providers Name Role Phone Ramses Cleary MD Primary Care Provider Unavailable Encounter Details Date Type Department Care Team Description 04/18/2016 Lab Visit [facility] Elevat ed prostate [facility] specific antigen (PSA) [address] [place] [address] Social History Tobacco Use Types Packs/Day [...] documented as of this encounter Progress Notes Renee Borjas RN - 04/18/2016 11:54 AM CDT Quick Note: Pt has upcomming appointments with Dr Rodney 04/24 Results will be discussed at this time Renee Borjas RN 04/18/2016, 11:54 AM documented in this encounter Plan of Treatment Not on filedocumented as of this encounter Procedures Procedure Name Priority Date/Time Associated Diagnosis Comme nts PROSTATIC SPECIFIC Routine 04/18/2016 10:30 AM Elevated prosta te Results for this ANTIGEN (DIAGNOSTIC CDT specific antigen proc edure are in F/U) (PSA) the results section. documented in this encounter Results (ABNORMAL) PROSTATIC SPECIFIC ANTIGEN (F/U) (04/18/2016 10:30 AM CDT) [facility] gist Method Time Signature Prostatic Spec 6.4 (H) 0.0 - 4.0 [facility] Ag ng/ml [facility] Specimen Anatomical Collection Method Collection Time Receive d Time (Source) Location / / Volume Laterality 04/18/2016 10:30 04/18/2016 AM CDT 10:43 AM CDT Narrative [facility] - 04/18/2016 11:44 AM CDT Performed at [facility], [address] [place] [address] Waqas Rodney MD LAB_1 Performing Organization Address City/State/ZIP Code Phon e Number [facility] [phone] documented in this encounter Visit Diagnoses Diagnosis Elevated prostate specific antigen (PSA) documented in this encounter Care Teams Senior Treasury Analyst Relationship Specialty Start Date End Date Ramses Cleary MD PCP - General Family Practice 10/21/11 documented as of this encounter
--- OUTSIDE RECORDS SUMMARY | 2022-02-24 12:24 | XMS_ITS | Encounter Summary ---
:1935 Author [facility] Address [address] [address] Care Team Providers Name Role Phone Ramses Cleary MD Primary Care Provider Unavailable Encounter Details Date Type Department Care Team Description 03/13/2016 [facility] Only [facility] Jarad Cleary MD Cardiac Non-Invasive Lab [address] [place] [address] [place], [place] [phone] Social History Tobacco Use Types Packs/Day Years [...] Name Priority Date/Time Associated Diagnosis Comme nts CLINICAL TRIAL SPECIALIST 03/13/2016 12:00 AM Resul ts for this CDT procedure are i n the results section. documented in this encounter Results CLINICAL TRIAL SPECIALIST (03/13/2016 12:00 AM CDT) Specimen (Source) Anatomical Location Collection Method / Collectio n Time Received Time / Laterality Volume 03/13/2016 Narrative This result has an attachment that is no t available. Ramses Cleary MD DUMMY/OTHER/AR documented in this encounter Visit Diagnoses Not on filedocumented in this encounter Care Teams Strategic Marketing Manager Relationship Specialty Start Date End Date Ramses Cleary MD PCP - General Family Practice 10/21/11 documented as of this encounter
--- OUTSIDE RECORDS SUMMARY | 2022-02-24 12:24 | XMS_ITS | Encounter Summary ---
:1935 Author Organization [facility] Address [address], [place] [address] Care Team Providers Name Role Phone Ramses Cleary MD Primary Care Provider Unavailable Encounter Details Date Type Department Care Team Description 04/18/2016 Office Visit [email or web address]] [place], Senso rineural hearing [facility] Michaela S, A [facility]. loss of both ears [facility] [address] (Primary Dx) [address] [place] [address] [phone] Social History Tobacco Use Types Packs/Day Years [...] as of this encounter Patient Instructions Patient InstructionsMichaela Mon AU.D. - 04/18/2016 11:22 AM CDT Hearing aid check: Thank you for choosing [facility] for your Hearing Aid needs. Please see Hearing Aid record of sales documents provided to you at the time of your hearing aid purchase for serial number and warranty information. For questions regarding your visit or to schedule a return Audiology appointment, please call [phone]. If you require urgent after hours care, please call the Care Line at [phone]. Hearing Preservation: It is important to preserve your hearing. Personal headphone devices should be worn at levels not higher than 50% of the volume range. Hearing protection (ear plugs) should be worn wherever appropriate, including use of lawn mowers, snow blowers, chain saws, power tools, firearms, and while listening to live music. Hearing protection is available from all [facility] locations. Resources: Smoke and Carbon Monoxide detectors: Special smoke and carbon Monoxide alerting devices for individuals with hearing loss can be obtained from hopTo. or www.[employer]Spring Telephone: Amplified and Caption(ing) telephone products may be available to you at no charge through the [place] [employer] Telephone Equipment Distribution program (AMISH). This is an income based program. The phone number is 592-924-4251 (voice) or 287-214-3653 (TTY). www.[employer]rovac.org. [facility] has printed AMISH program information available upon request. documented in this encounter Progress Notes Michaela Mon AU.D. - 04/18/2016 11:22 AM CDT SUBJECTIVE: Zaid Rutledge 81 y.o. came in today for a hearing aid check. Zaid Rutledge is leaving for a long trip to the [facility] for the month of May. His remote microphone, which is our demo model is broken. Hewould like this fixed prior to his trip. OBJECTIVE: Cerumen removed bilaterally using a curette. Hearing aids cleaned, tubing changed. Discussion options. He is wondering what other microphone options are. He came late today and I was only scheduled a 30 minute appointment so there was not enough time today to discuss every option. i did discuss his hearing aid technology is 7 years old so certainly it might be time to look at newtechnology with more direct streaming options. ASSESSMENT: GINGER He is also due for an updated audiogram. He should schedule an audiogram and hearing aid consultation upon his return from his trip. He will fit with remote microphone and COMPILOT next week. He will need to pay for the remote microphone. He is also due for annual care. PLAN: Patient plans to follow up next week for fitting. AuD. 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
--- OUTSIDE RECORDS SUMMARY | 2022-02-24 12:24 | XMS_ITS | Encounter Summary ---
:1935 Author Organization [facility] Address [address] [address] Care Team Providers Name Role Phone Ramses Cleary MD Primary Care Provider Unavailable Reason for Visit Procedure/Equipment (Routine) - Closed Specialty Diagnoses / Procedures Referred By Contact Refer red To Contact Cardiology Filemon Woods, [address] TheoInvasive Non-Invasive [address] [place] [address] [place] [address] Referral ID Status Reason Start Date Expiration Date Visits Requ ested Visits Authorized [id number] Closed 01/17/2016 04/17/2017 1 1 Encounter Details Date Type Department Care Team Description 01/18/2016 Procedure Visit [facility] Sarwat Woods, at [facility] NonKassiinvasive [address] [place] [address] [place] [address] [phone] (Wo rk) Social History Tobacco Use Types [...] documented as of this encounter Progress Notes Marycarmen Posada - 01/18/2016 12:23 PM CDT Patient web-enrolled for 30-day event monitor via [employer]. [employer] will send monitor to patient's home. LARS Peter, CCRP documented in this encounter Plan of Treatment Scheduled Referrals Name Type Priority Associated Diagnoses [facility] Referral Referral Routine Order ed: 01/17/2016 documented as of this encounter Visit Diagnoses Not on filedocumented in this encounter Care Teams Double Cutter Relationship Specialty Start Date End Date Ramses Cleary MD PCP - General Family Practice 10/21/11 documented as of this encounter
--- OUTSIDE RECORDS SUMMARY | 2022-02-24 12:24 | XMS_ITS | Encounter Summary ---
:1935 Author Organization [facility] Address [address] [place] [address] Care Team Providers Name Role Phone Morgan Bass DO Primary Care Provider Reason for Referral Procedure/Equipment (Routine) - Closed Specialty Diagnoses / Procedures Referred By Contact Refer red To Contact Diagnoses Vertigo Morgan Bass DO Procedures CT Head WO IV Cont [address] [place], [place] [address] Referral ID Status Reason Start Date Expiration Date Visits Requ ested Visits Authorized [id number] Closed 10/02/2016 01/01/2018 1 1 Reason for Visit Reason Comments DIZZINESS visual changes Encounter Details Date Type Department Care Team Description 10/02/2016 Office Visit [facility] Morgan Bass (Primary Dx) Beatriz Rose DO Practice [address] [place] [address] [place], [place] [phone] Social History Tobacco Use Types Packs/Day Years [...] Sign Reading Time Taken Comments Blood Pressure 144/78 10/02/2016 10:51 AM CDT Pulse 72 10/02/2016 10:51 AM CDT Temperature 36.7 ??C (98.1 ??F) 10/02/2016 10:47 AM CDT Respiratory Rate 14 10/02/2016 10:47 AM CDT Oxygen Saturation - - Inhaled Oxygen Concentration - - Weight 106.3 kg (234 lb 6.4 oz) 10/02/2016 10:47 AM CDT Height - - Body Mass Index 35.12 03/25/2016 10:45 AM CDT documented in this encounter Progress Notes Morgan Bass DO - 10/02/2016 1:04 PM CDT Spoke with radiology department and showed possibly normal pressure hydrocephalus. At this point we will have patient follow-up next week patient was contacted via phone and understood need for follow-up. Morgan Bass DO - 10/02/2016 11:23 AM CDT Chief Complaint Patient presents with ??? DIZZINESS visual changes HPI: Patient is an 81-year-old male who presents with an episode of vertigo. Patient states yesterday was talking on the phone and then developed a severe case of the room spinning double vision and had difficulty walking. Patient states that he had no chest pain shortness of breath fever or chills prior to that he denied any palpitations during this episode. Had a similar episode of this back in May and was hospitalized all testing at that same came out normal. Patient states today he is stillfeeling somewhat off. He states he is unsteady on his feet and but denies any double vision he states that total double vision lasted less than an hour but it was present he does state the room was spinning at that time but is no longer spending. He otherwise states he has had no one-sided weakness and he also denies any public safety officer strength discrepancy. Patient states that he has had worsening symptoms yesterday no symptoms similar to that today but just does not feel right and feels somewhat fatigued He denies any nausea vomiting or diarrhea. Current Outpatient Prescriptions Medication Sig Dispense Refill [...] MOUTH TWICE DAILY ONE HOUR BEFORE A [id number] Cap 0 No current facility-administered medications for this visit. ROS: see HPI OBJECTIVE Filed Vitals: 10/02/16 1051 BP: 144/78 Pulse: 72 Temp: Resp: General Examination General Appearance:stated age, in mild distress Head:atraumatic, normocephalic Eyes:PERRLA and EOM's intact Ears:bilateral TM's and external ear canals normal Nose:clear mucous Throat:WNL Neck/Thyroid:supple, without masses Lymph Nodes:Cervical, supraclavicular, and axillary nodes normal. Heart:Normal S1 and S2. Regular rhythm. No murmurs, gallops, or rubs. Lungs:Clear to auscultation without rales or rhonchi Cranial nerves II through XII are intact, flexion of upper and lower extremities were equal, deep tendon reflexes upper and lower extremities were equal, patient had difficulty with heel to toe walk and was unsteady HINTS was appropriate ASSESSMENT: ICD-10-CM 1. Vertigo R42 CT Head WO IV Cont PLAN 1. Vertigo-with patient's age and symptoms of double vision I will go ahead and send him over to [place] for an emergent CT without infusion. If this is negative we will go ahead and treat him with Antivert and have him follow-up first thing next week. 2. At a long discussion with him regarding these symptoms today. If he would have any worsening symptoms over the weekend he is to return to urgent care or the emergency room. 3. In the meantime patient is going to follow-up with me sometime early next week for establishing care. 4. Total time spent with patient was greater than 25 minutes of which more than 50 percent was counseling regarding needs for CT and follow-up This document was created with speech recognition software so there could be errors in phrasing or unintended word subsitiution. documented in this encounter Plan of Treatment Not on filedocumented as of this encounter Results CT Head WO IV Cont (10/02/2016 11:57 AM CDT) Anatomical Region Laterality Modality Head Computed Tomography Specimen (Source) Anatomical Collection Method Collection Time Re ceived Time Location / / Volume Laterality 10/02/2016 11:57 AM CDT Narrative 10/02/2016 1:05 PM CDT [facility] CT HEAD WO IV CONT [...] ?? Procedure Note George Gonzalez MD - 10/02/2016Formatti ng of this note might be different from the original. [facility] CT HEAD WO IV CONT [...] in this encounter Visit Diagnoses Diagnosis Vertigo - Primary Dizziness and giddiness Vertigo Dizziness and giddiness documented in this encounter Care Teams Head Boys Tennis Coach Relationship Specialty Start Date End Date Morgan Bass DO PCP - General Family Practice 10/02/16 10/25/17 [address] [place] [address] documented as of this encounter
--- OUTSIDE RECORDS SUMMARY | 2022-02-24 12:24 | XMS_ITS | Encounter Summary ---
:1935 Author Organization [facility] Address [address], [place] [address] Care Team Providers Name Role Phone Ramses Cleary MD Primary Care Provider Unavailable Reason for Visit Reason Comments Hearing Aid pairing compilot with remote sudha Encounter Details Date Type Department Care Team Description 04/21/2016 Office Visit [facility] Maryan Edward, Sens orineural hearing [facility] AU.D. loss of both ears [facility] [address] (Primary Dx) [address] [place] [id number] [phone] Social History Tobacco Use Types Packs/Day Years [...] as of this encounter Patient Instructions Patient InstructionsMaryan Edward AU.D. - 04/21/2016 12:46 PM CST Hearing aid check: Thank you for choosing [facility] for your Hearing Aid needs. Please see Hearing Aid record of sales documents provided to you at the time of your hearing aid purchase for serial number and warranty information. For questions regarding your visit or to schedule a return Audiology appointment, please call [phone]. If you require urgent after hours care, please call the Care Line at [phone]. Hearing Preservation: It is important to preserve your hearing. Personal headphone devices should be worn at levels not higher than 50% of the volume range. Hearing protection (ear plugs) should be worn wherever appropriate, including use of lawn mowers, snow blowers, chain saws, power tools, firearms, and while listening to live music. Hearing protection is available from all [facility] locations. Resources: Smoke and Carbon Monoxide detectors: Special smoke and carbon Monoxide alerting devices for individuals with hearing loss can be obtained from [employer]. or www.HOLLR Telephone: Amplified and Caption(ing) telephone products may be available to you at no charge through the [place] [employer] Telephone Equipment Distribution program (AMISH). This is an income based program. The phone number is [phone] (voice) or [phone] (TTY). www.[employer].org. [facility] has printed AMISH program information available upon request. LATORY TECHNICIAN documented in this encounter Progress Notes Maryan Edward AU.D. - 04/21/2016 12:46 PM CST SUBJECTIVE Zaid Rutledge was seen today for hearing aid follow up check. He was fit with a new remotemic and paired with compilot and hearing aids. OBJECTIVE Zaid has been mostly satisfied with the hearing aids. The fit has been comfortable. Battery life has been good. Bio-acoustically the aids are functioning WNL. He has been wearing the aids about 10 hours per day. No programming is needed today. Otoscopy revealed clear canals bilaterally. ASSESSMENT Paired and synced new remote sudha with compilot and hearing aids. He did not come in with the right hearing aid today so instructed him to return if he had any concerns (the compilot is the same so it should still be pair with the right hearing aid). PLAN Return if problems with pairing occur. We will see the patient when he returns from his [facility] in the new year for an audiogram and hearing aid check. 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
--- OUTSIDE RECORDS SUMMARY | 2022-02-24 12:24 | XMS_ITS | Encounter Summary ---
:1935 Author Organization [facility] Address [address] [address] Care Team Providers Name Role Phone Morgan Bass DO Primary Care Provider Reason for Visit Reason Comments RESULTS, TEST MRI brain Encounter Details Date Type Department Care Team Description 10/09/2016 [facility]phone [facility] Morgan Bass RES, TEST ([facility] [place] brain) Practice [address] [place] [address] [place] [address] [place], [place] [phone] Social History Tobacco Use Types Packs/Day Years [...] documented as of this encounter Nursing Notes Rosa Chow CMA - 10/09/2016 9:18 AM CDT The patient has been contacted and notified of this information. Rosa Chow CMA 10/09/20169:26 AM Michelle Moreira CMA - 10/09/2016 9:02 AM CDT I called and left a message for Zaid to call back with a woman that answered the cell phone. Michelle Moreira CMA10/09/2016 9:02 AM (let him know that neurology will be able to answer his questions on Thursday) if more question/concerns, he can come back in to see Dr. Bass but Neuro is the best to review these results. 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 I would see neurology on Thursday as planned. documented in this encounter Plan of Treatment Not on filedocumented as of this encounter Visit Diagnoses Not on filedocumented in this encounter Care Teams Loop Sewer Relationship Specialty Start Date End Date Morgan Bass DO PCP - General Family Practice 10/02/16 10/25/17 [address] [place] [address] documented as of this encounter
--- OUTSIDE RECORDS SUMMARY | 2022-02-24 12:25 | XMS_ITS | Encounter Summary ---
:1935 Author Organization [facility] Address [address], [place] [address] Care Team Providers Name Role Phone Ramses Cleary MD Primary Care Provider Unavailable Encounter Details Date Type Department Care Team Description 10/31/2014 Orders Only [facility] Prostate cancer [address], [place] [id number] Social History Tobacco Use Types Packs/Day Years Used Date Smoking Tobacco: Former Cigarettes Quit : 12/24/1997 Smokeless Tobacco: Never Alcohol Use Standard Drinks/Week Comments Yes 0 (1 standard drink = 0.6 oz pure [...] Priority Date/Time Associated Diagnosis Comme nts SURGICAL PATH Routine 10/31/2014 5:22 PM Prostate cancer Resul ts for this CDT procedure are i n the results section . documented in this encounter Results SURGICAL PATH (10/31/2014 5:22 PM CDT) [facility] gist Method Time Signature Histology (NOTE) [facility] Final Report [facility] Patient Name: ZAID RUTLEDGE Taken: 10/31/2014 Received: 10/31/2014 Reported: 11/01/2014 Physician(s): Waqas Rodney ? Final Pathologic Diagnosis A. ??Prostate, right base, needle biopsy - ?1. ??Benign prostate tissue ?2. ??No evidence of atypia or malignancy B. ??Prostate, right mid, needle biopsy - ?1. ??Benign prostate tissue ?2. ??No evidence of atypia or malignancy C. ??Prostate, right apex, needle biopsy - ?1. ??Benign prostate tissue ?2. ??No evidence of atypia or malignancy D. ??Prostate, left base, needle biopsy - ?1. ??Benign prostate tissue ?2. ??No evidence of atypia or malignancy E. ??Prostate, left mid, needle biopsy - ?1. ??Benign prostate tissue ?2. ??No evidence of atypia or malignancy F. ??Prostate, left apex, needle biopsy - ?1. 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 ??1 of 3 needle cores positive ?3. ??5% tissue involvement ?4. ??Perineural invasion not identified ?? Comments Deepika Arellano at Dr. Rodney's office is informed of the jayce gnosis on November 01, 2014. Electronically Signed Out By Kee Becerra MD Roberto Rodgers MD ([id number]) Kee Becerra MD Procedures/Addenda Clinical History Prostate CA; elevated PSA Gross Description A. ??The specimen is received in formalin and labeled with t he patient's name and right base. ??The specimen consists of two thread-like white cores of soft tissue ranging from 2.5-2.7 cm in length. ??The specimen is inked orange and entirely submitte d in two cassettes. ?? B. ??The specimen is received in formalin and labeled with t he patient's name and right mid. ??The specimen consists of t wo thread-like white cores of soft tissue ranging from 2.0-3.3 cm in length. ??The specimen is inked orange and entirely submitte d in two cassettes. ?? C. ??The specimen is received in formalin and labeled with t he patient's name and right apex. ??The specimen consists of two thread-like white cores of soft tissue ranging from 2.7-3.0 cm in length. ??The specimen is inked orange and entirely submitte d in two cassettes. ?? D. ??The specimen is received in formalin and labeled with t he patient's name and left base. ??The specimen consists of t wo thread-like white cores of soft tissue ranging from 1.7-3.3 cm in length. ??The specimen is inked orange and entirely submitte d in two cassettes. ?? E. ??The specimen is received in formalin and labeled with t he patient's name and left mid. ??The specimen consists of tw o thread-like white cores of soft tissue ranging from 2.3-3.2 cm in length. ??The specimen is inked orange and entirely submitte d in two cassettes. ?? F. ??The specimen is received in formalin and labeled with t he patient's name and left apex. ??The specimen consists of t hree thread-like white cores and core fragments of soft tissue ra nging from 0.8-2.1 cm in length. ??The specimen is inked orange and ent irely submitted in two cassettes. ??dt nicol/10/31/2014 Microscopic Description Microscopic examination is performed on 24 slides. ?? snp11/01/2014 Roberto Rodgers MD ([id number]) Kee Becerra MD [facility] Department of Pathology [address] [place] [address] ??[id number] Specimen Anatomical Collection Method Collection Time Receive d Time (Source) Location / / Volume Laterality 10/31/2014 5:22 PM 5 5:39 CDT PM CDT Waqas Rodney MD LAB_1 Performing Organization Address City/State/ZIP Code Phon e Number [address] [address] documented in this encounter Visit Diagnoses Diagnosis Prostate cancer ([facility]) Malignant neoplasm of prostate documented in this encounter Care Teams Therapy Administrative Assistant Relationship Specialty Start Date End Date Ramses Cleary MD PCP - General Family Practice 10/21/11 documented as of this encounter
--- OUTSIDE RECORDS SUMMARY | 2022-02-24 12:25 | XMS_ITS | Encounter Summary ---
:1935 Author Organization [facility] Address [address] [address] Care Team Providers Name Role Phone Ramses Cleary MD Primary Care Provider Unavailable Encounter Details Date Type Department Care Team Description 07/20/2015 Orders Only [facility] Prosta te cancer ([facility]) [facility] [address] [place] [address] Social History Tobacco Use Types Packs/Day [...] encounter Progress Notes Deepika Arellano RN - 07/23/2015 12:29 PM DIRECTOR OF DIETARY Quick Note: Will discuss his test results with Dr. Rodney at his upcoming appt 07-24-2015. Deepika Arellano RN 07/23/2015, 12:28 PM CTOR OF DIETARY Waqas Rodney MD - 07/20/2015 1:29 PM DIRECTOR OF DIETARY Quick Note: Prostate-specific antigen up a little bit please inform DISCUSS it visit CTOR OF DIETARY documented in this encounter Plan of Treatment Not on filedocumented as of this encounter Procedures Procedure Name Priority Date/Time Associated Diagnosis Comme nts PROSTATIC SPECIFIC Routine 07/20/2015 10:12 AM Prostate cancer Results for this ANTIGEN (DIAGNOSTIC DIRECTOR OF DIETARY ([facility]) procedur e are in F/U) the results section. documented in this encounter Results (ABNORMAL) PROSTATIC SPECIFIC ANTIGEN (F/U) (07/20/2015 10:12 AM DIRECTOR OF DIETARY) athologist Signature Prostatic Spec 6.95 (H) 0.00 - [facility] Ag 4.00 ng/ml HOSPITAL Specimen Anatomical Collection Method Collection Time Receive d Time (Source) Location / / Volume Laterality 07/20/2015 10:12 07/20/2015 AM DIRECTOR OF DIETARY 10:17 AM DIRECTOR OF DIETARY Narrative [facility] - 07/20/2015 12:[address] Performed at [facility], [address] [place] [id number] Waqas Rodney MD LAB_1 Performing Organization Address City/State/ZIP Code Phon e Number [address] [address] documented in this encounter Visit Diagnoses Diagnosis Prostate cancer ([facility]) Malignant neoplasm of prostate documented in this encounter Care Teams Anesthesiology Physician Relationship Specialty Start Date End Date Ramses Cleary MD PCP - General Family Practice 10/21/11 documented as of this encounter
--- OUTSIDE RECORDS SUMMARY | 2022-02-24 12:25 | XMS_ITS | Encounter Summary ---
:1935 Author Organization [facility] Address [address], [place] [address] Care Team Providers Name Role Phone Ramses Cleary MD Primary Care Provider Unavailable Reason for Visit Reason Comments COUGH, COUGHING UP, BLOOD Coughing up large amount of blood. Recent air travel. Encounter Details Date Type Department Care Team Description 07/17/2015 Nurse Triage [facility] Ramses Cleary GH, COUGHING UP, Beatriz Shipman MD BLOOD (Coughing up Practice [address] large amount of [address] [place] [address] [place], [place] travel. ) [phone] Social History Tobacco Use Types Packs/Day Years [...] documented as of this encounter Nursing Notes Tawanna Brady RN - 07/17/2015 9:56 AM CST Verified and full name. Yes Situation/Symptom: Coughing up blood Background related to current situation/symptom: Flew back from [facility] last night Pertinent Medical history: Esophageal reflux and Asthma Medications: Reviewed Pertinent medications with the patient/caller Yes Protocol: COUGHING UP [id number] Negative: Severe difficulty breathing (e.g., struggling for each breath, speaks in single words) Negative: [1] Chest pain AND [2] difficulty breathing Negative: Bluish lips, tongue, or face now Negative: Passed out (i.e., lost consciousness, collapsed and was not responding) Negative: Shock suspected (e.g., cold/pale/clammy skin, too weak to stand, low BP, rapid pulse) Negative: Difficult to awaken or acting confused (e.g., disoriented, slurred speech) Negative: Recent chest injury (i.e., past 24 hours) Affirmative: [1] Coughed up blood AND [2] large amount (example: a cup of blood) Disposition of Call 911 suggested. S: Coughing up bright red blood B: Patient had long air flight from [facility] back to [place] yesterday. A: No previous upper respiratory congestion symptoms. Patient started coughing last night and this morning and his cough is productive of large amount of blood - at least a cup according to his guestimate. R: Patient's is available to bring him immediately to the emergency room. She agreed to call for help if he should need it before arriving there. Tawanna Brady RN (Amelia) 07/17/2015 10:13 AM E BLENDER documented in this encounter Plan of Treatment Not on filedocumented as of this encounter Visit Diagnoses Not on filedocumented in this encounter Care Teams Landfill Gas Technician Relationship Specialty Start Date End Date Ramses Cleary MD PCP - General Family Practice 10/21/11 documented as of this encounter
--- OUTSIDE RECORDS SUMMARY | 2022-02-24 12:25 | XMS_ITS | Encounter Summary ---
:1935 Author Organization [employer] Address [address] [place] [address] Care Team Providers Name Role Phone Ramses Cleary MD Primary Care Provider Unavailable Reason for Referral Consult/Transfer Care (Routine) - Closed Specialty Diagnoses / Procedures Referred By Contact Refer red To Contact Lida Dinero MD [address] [place] [address] Referral ID Status Reason Start Date Expiration Date Visits Requ ested Visits Authorized [id number] Closed 07/17/2015 08/17/2015 1 1 Scheduling Instructions Your provider has recommended an appoint ment in primary care at [facility]. A material scheduler will contact you to a ssist you in setting up this appointment, or you may call [phone] to schedule yo ur appointment. LE CUTTER Procedure/Equipment (Routine) - Closed Specialty Diagnoses / Procedures Referred By Contact Refer red To Contact Radiology [place] Procedures Lida Dinero, [place] [facility] CT NECK SOFT TISSUE [address] [place] [address] WITH CONTRAST [address] [place] [address] [place] [address] Referral ID Status Reason Start Date Expiration Date Visits Requ ested Visits Authorized [id number] Closed 07/17/2015 1 1 LE CUTTER Procedure/Equipment (Routine) - Closed Specialty Diagnoses / Procedures Referred By Contact Refer red To Contact Radiology [place] Procedures Lida Dinero, [facility] CT ANGIOGRAPHY PULMONARY MD [address] [place] [address] EMBOLISM STUDY [address] [place] [address] [place] [address] Referral ID Status Reason Start Date Expiration Date Visits Requ ested Visits Authorized [id number] Closed 07/17/2015 1 1 LE CUTTER Procedure/Equipment (Routine) - Incomplete Specialty Diagnoses / Procedures Referred By Contact Refer red To Contact Procedures Lida Dinero MD XR CHEST PA/AP AND LAT [address] [place] [place] [address] Referral ID Status Reason Start Date Expiration Date Visits V isits Requested Authorized [id number] Incomplete 07/17/2015 1 1 LE CUTTER Reason for Visit Reason Comments HEMOPTYSIS--ED Encounter Details Date Type Department Care Team Description 07/17/2015 Emergency [facility] Lida Dinero Cough with hemoptysis Emergency Department MD Fabian (Primary Dx) [address] [place] [address] [address] [place] [address] [address] [phone] [place] [address] Social History Tobacco Use Types Packs/Day Years [...] Sign Reading Time Taken Comments Blood Pressure 149/80 07/17/2015 11:09 AM PICKLE CUTTER Pulse 85 07/17/2015 11:09 AM PICKLE CUTTER Temperature 36.4 ??C (97.5 ??F) 07/17/2015 11:09 AM PICKLE CUTTER Respiratory Rate 20 07/17/2015 11:09 AM PICKLE CUTTER Oxygen Saturation 96% 07/17/2015 11:09 AM PICKLE CUTTER Inhaled Oxygen Concentration - - Weight 104.3 kg (230 lb) 07/17/2015 11:09 AM PICKLE CUTTER Height 177.8 cm (5' 10) 07/17/2015 11:09 AM PICKLE CUTTER Body Mass Index 33 07/17/2015 11:09 AM PICKLE CUTTER documented in this encounter Discharge Instructions Discharge InstructionsLida Dinero MD - 07/17/2015 2:53 PM CST Images from the original note were not included. Your blood tests, x-ray and CT scans here do not show any underlying mass that is actively bleeding.You do have some small lung nodules that will need follow- up with repeat scans in the future. Pleasesee your primary care doctor to arrange this follow-up. Please return here if you develop any further significant bleeding, weakness, dizziness, or other concerns. Please follow up with your primary care provider if your symptoms don't improve. Please return to the emergency room if your symptoms worsen. Coughing Up Blood: Care Instructions Your Care Instructions Coughing up blood can be frightening. The blood may come from the lungs, stomach, or throat. You maycough up a few thin streaks of bright red blood. This probably is not a cause for concern. Coughing up large amounts of bright red blood or rust-colored mucus from the lungs can be a symptom of a more serious condition. Several conditions can make you cough up blood from the lungs. These include bronchitis and pneumonia, or more serious problems such as cancer or a blood clot in the lung (pulmonary embolus). Depending on what is causing your cough, it may go away after the illness is treated. Your doctor may tell you not to suppress the cough with cough medicine if it is better for you to cough up the blood and spit it out. Follow-up care is a gonzales part of your treatment and safety. Be sure to make and go to all appointments, and call your doctor if you are having problems. It???s also a good idea to know your test resultsand keep a list of the medicines you take. How can you care for yourself at home? ?? Make a note of when and for how long you cough up blood. Also note if you are coughing up spit with a small amount of blood, or mostly blood. Take this information to your next appointment with yourdoctor. ?? Increase your fluid intake to at least 8 to 10 glasses of water every day. This helps keep the mucus thin and helps you cough it up. If you have kidney, heart, or liver disease and have to limit fluids, talk with your doctor before you increase your fluid intake. ?? If your doctor prescribed antibiotics, take them as directed. Do not stop taking them just because you feel better. You need to take the full course of antibiotics. ?? Do not take cough medicine without your doctor's guidance. They can cause problems if you have other health problems. They can also interact with other medicine. ?? Do not smoke or use other forms of tobacco, especially while you have a cough. Smoking can make coughing worse. If you need help quitting, talk to your doctor about stop-smoking programs and medicines. These can increase your chances of quitting for good. ?? Avoid exposure to smoke, dust, or other pollutants. When should you call for help? Call 911 anytime you think you may need emergency care. For example, call if: ?? You have sudden chest pain and shortness of breath. ?? You have severe trouble breathing. Call your doctor now or seek immediate medical care if: ?? You have wheezing and difficulty breathing. ?? You are dizzy or lightheaded, or you feel like you may faint. ?? You cough up clots of blood. Watch closely for changes in your health, and be sure to contact your doctor if: ?? You do not get better as expected. ?? You have any new symptoms, such as chest pain with difficulty breathing or a fever. Where can you learn more? Go to [employer] and enter M550 in the search box. Current as of: April 28, 2014 Content Version: 107 ?? [id number] Funding Options. LE CUTTER documented in this encounter Medications at Time [...] home health clinician.] fluticasone (AKA Place 1 [place] into 0 08/03/2013 FLONASE) 50 MCG/ACT both nostrils two nasal times a day. solutionIndications: Indications: Allergic Allergic Rhinitis Rhinitis Multiple [The details of the 0 Vitamins-Minerals (ICAPS medication are not AREDS FORMULA available because OR)Indications: there are pending supplement changes by a home health clinician.] acetaminophen (AKA Take 1,000 mg by 0 10/29/2015 TYLENOL EXTRA STRENGTH) mouth two times a 500 MG tablet day. allopurinol (AKA TAKE 1 TABLET BY 90 Tab 3 08/14/2014 ZYLOPRIM) 100 MG tablet MOUTH DAILY azithromycin (ZITHROMAX Take 1 Tab by mouth . 6 Tab 0 1 08/05/2014 07/24/2015 Z-CINTHYA) 250 MG Take two tablets on tabletIndications: the first day, and Bronchitis take one tablet each day on days 2-5 budesonide-formoterol Inhale 2 Puffs by 10.2 g 0 014 01/16/2016 (SYMBICORT) 160-4.5 mouth two times a MCG/ACT inhaler day. ciprofloxacin (CIPRO) Take 1 Tab by mouth 20 Tab 0 07/0407/24/2015 500 MG tablet two times a day. guaiFENesin (AKA Take 1,200 mg by 0 MUCINEX) 600 MG 12 hour mouth two times a release tablet day. Reported on 10/13/2016 guaifenesin/codeine (AKA Take 5-10 mL by mouth 240 mL 0 06/04/2015 07/24/2015 TUSSI-ORGANIDIN NR) every 4 hours as 100-10 MG/5ML needed for Cough. syrupIndications: Bronchitis ibuprofen (AKA MOTRIN) Take 200 mg by mouth 0 10/29/2015 200 MG tablet every 4 hours as needed for Pain. omeprazole (AKA TAKE 1 CAPSULE BY 180 Cap 3 08/14/2014 PRILOSEC) 20 MG capsule MOUTH TWICE DAILY ONE HOUR BEFORE A MEAL typhoid live attenuated Take 1 Cap by mouth 4 Cap 0 10/19/2015 vaccine (AKA VIVOTIF) every other day. Take delayed release with a cool glass of capsuleIndications: water on an empty Travel advice encounter stomach; do not eat for 1 hour before or after documented as of this encounter ED Notes Jacqui Leon RN - 07/17/2015 3:04 PM CST [facility] ED Nursing Discharge Note Vital Signs: BP: (!) 149/80 mmHg Temp: 97.5 ??F (36.4 ??C)Temp src: Oral Pulse: 85 Resp: 20 SpO2: 96 % Pain Rating: Rest: 0, Pain Rating: Activity: 0 Admission Date/Time: 07/17/2015 11:01 AM Attending MD: Lida Dinero MD Patient discharged: to Home. Patient accompanied by: self. Transported by: Walked Valuables were taken home by patient: Yes Work/School Slip given: N/A Discharge instructions given and explained to patient: Yes Discharge prescriptions given and explained to patient: No Patient verbalized understanding. Yes Patient level of pain on discharge: 0 Patients condition on discharge related to chief complaint and treatment in ED: Stable ---End of Report--- LE CUTTER Lida Dinero MD - 07/17/2015 11:40 AM CST [facility] Emergency Department Visit Note Chief Complaint: HEMOPTYSIS--ED History of Present Illness HPI Zaid Rutledge is a 80 y.o. male who presents with hemoptysis. Patient returned from [facility] yesterday, awoke that Am with a sore thraot, and feeling the need to clear throat frequently. Noted blood in sputum at 6AM this morning. Washed mouth and gargled with water, and noted lots of blood in it.No nose bleeding. Went back to sleep until 9AM, spit again and noted more bleeding. Coughing more than usual x 1-2 days. No chest pains, no calf swelling or pain, but did have some bilateral ankle swelling after flight yesterday. Previous Medications ACETAMINOPHEN (AKA TYLENOL EXTRA STRENGTH) 500 MG TABLET Take 1,000 mg by mouth two times a day. ALBUTEROL SULFATE HFA 108 (90 BASE) MCG/ACT INHALER Inhale 2 Puffs by mouth every 4 hours as neededfor Wheezing. ALLOPURINOL (AKA ZYLOPRIM) 100 MG TABLET TAKE 1 TABLET BY MOUTH DAILY AZITHROMYCIN (ZITHROMAX Z-CINTHYA) 250 MG TABLET Take 1 Tab by mouth . Take two tablets on the first day, and take one tablet each day on days 2-5 BUDESONIDE-FORMOTEROL (SYMBICORT) 160-4.5 MCG/ACT INHALER Inhale 2 Puffs by mouth two times a day. CIPROFLOXACIN (CIPRO) 500 MG TABLET Take 1 Tab by mouth two times a day. DORZOLAMIDE (AKA TRUSOPT) 2 % EYE DROP SOLUTION Apply or instill 1 Drop into both eyes two times a day. FLUTICASONE (AKA FLONASE) 50 MCG/ACT NASAL SOLUTION Apply or instill 2 Sprays into both nostrils two times a day. GUAIFENESIN (AKA MUCINEX) 600 MG 12 HOUR RELEASE TABLET Take 1,200 mg by mouth two times a day. GUAIFENESIN/CODEINE (AKA TUSSI-ORGANIDIN NR) 100-10 MG/5ML SYRUP Take 5-10 mL by mouth every 4 hours as needed for Cough. IBUPROFEN (AKA MOTRIN) 200 MG TABLET Take 200 mg by mouth every 4 hours as needed for Pain. MULTIPLE VITAMINS-MINERALS (ICAPS AREDS FORMULA OR) 1 Tab two times a day. OMEPRAZOLE (AKA PRILOSEC) 20 MG CAPSULE TAKE 1 CAPSULE BY MOUTH TWICE DAILY ONE HOUR BEFORE A MEAL TYPHOID LIVE ATTENUATED VACCINE (AKA VIVOTIF) DELAYED RELEASE CAPSULE Take 1 Cap by mouth every other day. Take with a cool glass of water on an empty stomach; do not eat for 1 hour before or after Allergies: Banana and Excedrin Patient Problem List Diagnosis ??? SPINAL STENOSIS, LUMBAR [...] disease) ??? Glaucoma ??? 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 Cataracts, bilateral Past Surgical History Procedure Laterality Date ??? Surgical procedure prev. benign pros bx by Ruby. ??? Surgical procedure prev. benign pros bx x 2 by Ruby. Last time 12/13. ??? Surgical procedure prev. benign pros bx x 2 by Hainuha. Last time 12/13. ??? 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 Turp ??? Lumbar laminectomy '02 L-4 and L-5 ??? Cataract removal bilateral ??? Shoulder arthroscopy Right 08 rotator cuff. ??? Left tka ??? 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 Smoking status: Former Smoker Quit date: 12/24/1997 ??? Smokeless tobacco: Never Used ??? Alcohol Use: 4.2 oz/week 7 Not specified per week Comment: moderate Review of Systems Constitutional: Negative. HENT: Positive for congestion and sore throat. Respiratory: Positive for cough. Cardiovascular: Negative for chest pain, palpitations and leg swelling. Gastrointestinal: Negative. Genitourinary: Negative. Musculoskeletal: Negative. All other systems reviewed and are negative. Physical Exam Vital signs: BP 149/80 mmHg Pulse 85 Temp(Src) 97.5 ??F (36.4 ??C) (Oral) Resp 20 Ht 5' 10 (1.778 m) Wt 104.327 kg (230 lb) BMI 33.00 kg/m2 SpO2 96% Physical Exam Constitutional: He is oriented to person, place, and time. He appears well- developed and well-nourished. No distress. HENT: Head: Normocephalic and atraumatic. Mouth/Throat: Oropharynx is clear and moist. No oropharyngeal exudate. No visible bleeding Eyes: Conjunctivae and EOM are normal. Neck: Normal range of motion. Neck supple. Cardiovascular: Normal rate, regular rhythm and normal heart sounds. Pulmonary/Chest: Effort normal and breath sounds normal. No respiratory distress. Abdominal: Soft. He exhibits no distension. There is no tenderness. Musculoskeletal: Normal range of motion. He exhibits no edema or tenderness. Neurological: He is alert and oriented to person, place, and time. No cranial nerve deficit. Coordination normal. Skin: Skin is warm and dry. Psychiatric: He has a normal mood and affect. His behavior is normal. Nursing note and vitals reviewed. Medical Decision Making & ED Course Patient with a concerning amount of oral pharyngeal bleeding this morning in a post tussive setting.Patient estimates approximately 1/2 cup of blood. However, since he has been in the emergency department, he has had absolutely no evidence of any bleeding, which is reassuring. His CBC and BMP are reassuring. Chest x- ray does not show any significant pathology. CT to evaluate for PE is negative for any acute pulmonary embolism or aortic dissection. He does have calcified granulomas in the left lung and a prominent calcified subcarinal lymph nodes, as well as some small densities seen along the wallof the trachea. If his symptoms continue, he will likely need follow-up for bronchoscopy. I have made a referral for him to see his primary care doctor to see if these symptoms persist and whether he needs further evaluation. A CT of the soft tissue neck was also performed as the patient was concernedhe has just lost her brother to throat cancer, and was quite worried that this was the cause of his bleeding. This is also reassuring. Patient understands and agrees with plan, will return if any new or worsening symptoms. Diagnosis & Disposition Diagnosis: 1. Cough with hemoptysis LE CUTTER Jacqui Leon RN - 07/17/2015 11:06 AM CST Pt to ER ambulatory with c/o spitting up blood with slight cough this morning starting at around 0600. Pt states he just flew back from [facility] yesterday and noted a sore throat that started while at the airport. Pt reports cough and wheezing tightness of the chest. Pt denies any use of blood thinners. LE CUTTER documented in this encounter Plan of Treatment Scheduled Referrals Name Type Priority Associated Diagnoses Order S chedule PRIMARY CARE FOLLOW-UP Referral Routine Order ed: 07/17/2015 documented as of this encounter Procedures Procedure Name Priority Date/Time Associated Diagnosis Comme nts CT NECK SOFT TISSUE STAT 07/17/2015 1:37 PM Re sults for this W IV CONT PICKLE CUTTER procedure are i n the results section. CT ANGIO CHEST W IV STAT 07/17/2015 1:36 PM Re sults for this CONT PE STUDY PICKLE CUTTER procedure are in the results section. XR CHEST 2 VIEWS STAT 07/17/2015 12:27 PM Resu lts for this PICKLE CUTTER procedure are i n the results section. GOLD HOLD TUBE (OR Routine 07/17/2015 12:05 PM Re sults for this RED/BASS) PICKLE CUTTER procedure are i n the results section. REGULAR RED HOLD Routine 07/17/2015 12:05 PM Resu lts for this TUBE [facility]ICKLE CUTTER procedure are i n the results section. COAG HOLD (BLUE Routine 07/17/2015 12:05 PM Resul ts for this TUBE) PICKLE CUTTER procedure are i n the results section. BASIC METABOLIC Routine 07/17/2015 12:05 PM Resul ts for this PANEL PICKLE CUTTER procedure are i n the results section. COMPLETE BLOOD Routine 07/17/2015 12:05 PM Result s for this COUNT-NO DIFF PICKLE CUTTER procedure are in the results section. documented in this encounter Results CT NECK SOFT TISSUE WITH CONTRAST (07/17/2015 1:37 PM PICKLE CUTTER) Anatomical Region Laterality Modality Neck, C-Spine, Spine, Vascular Computed Tomography Specimen (Source) Anatomical Collection Method Collection Time Re ceived Time Location / / Volume Laterality 07/17/2015 1:37 PM PICKLE CUTTER Narrative 07/17/2015 1:59 PM [facility] C[facility] CT NECK SOFT TISSUE W CONT 07/17/2015 1:37 PM INDICATION: Bleeding with gargling. Quer y bleeding mass. TECHNIQUE: CT neck performed with IV con trast. Axial imaging with coronal and sagittal reconstruction. ??Dose redu ction techniques were used. IV CONTRAST: 99 mL Omnipaque 350 COMPARISON: None. FINDINGS: ??Mucosal surfaces of the uppe r aerodigestive tract are symmetrical and unremarkable, without di screte mass. The parapharyngeal and filament coil winder spaces are unremarkable. The oral cavity is largely obscured by streak artifact from dental amalgam/res torations. Visualized floor of mouth structures are unremarkable. The p arotid and submandibular glands are symmetrical and unremarkable. The laryn x is unremarkable. Small bilateral cervical lymph nodes are noted; none are pathologic by size or morphology criteria. Mild calcified atherosclerotic plaque in volving the carotid bifurcations. The thyroid gland is grossly unremarkabl e. Bilateral cataract resections. The included intracranial compartment is grossly unremarkable. The visualized portions of the paranasal sin uses are clear. The mastoid air cells and middle ear cavities are clear. Multilevel cervical spondylosis most significant at C5-C6 and C6-C7. The included lung apices are clear. CONCLUSION: 1. ??No CT evidence for neck mass or pat hologically enlarged cervical lymph nodes. Procedure Note Waqas Jones MD - 07/17/2015Formatt ing of this note might be different from the original. [facility] CT NECK SOFT TISSUE W CONT 07/17/2015 1:37 PM INDICATION: Bleeding with gargling. Quer y bleeding mass. TECHNIQUE: CT neck performed with IV con trast. Axial imaging with coronal and sagittal reconstruction. Dose reduct ion techniques were used. IV CONTRAST: 99 mL Omnipaque 350 COMPARISON: None. FINDINGS: Mucosal surfaces of the upper aerodigestive tract are symmetrical and unremarkable, without di screte mass. The parapharyngeal and filament coil winder spaces are unremarkable. The oral cavity is largely obscured by streak artifact from dental amalgam/res torations. Visualized floor of mouth structures are unremarkable. The p arotid and submandibular glands are symmetrical and unremarkable. The laryn x is unremarkable. Small bilateral cervical lymph nodes are noted; none are pathologic by size or morphology criteria. Mild calcified atherosclerotic plaque in volving the carotid bifurcations. The thyroid gland is grossly unremarkabl e. Bilateral cataract resections. The included intracranial compartment is grossly unremarkable. The visualized portions of the paranasal sin uses are clear. The mastoid air cells and middle ear cavities are clear. Multilevel cervical spondylosis most significant at C5-C6 and C6-C7. The included lung apices are clear. CONCLUSION: 1. No CT evidence for neck mass or patho logically enlarged cervical lymph nodes. Lida Dinero MD RAD CT CT ANGIOGRAPHY PULMONARY EMBOLISM STUDY (07/17/2015 1:36 PM PICKLE CUTTER) Anatomical Region Laterality Modality Chest, Lung, Vascular Computed Tomograph y Specimen (Source) Anatomical Collection Method Collection Time Re ceived Time Location / / Volume Laterality 07/17/2015 1:36 PM PICKLE CUTTER Narrative 07/17/2015 2:03 PM PICKLE CUTTER CTA PE STUDY 07/17/2015 1:36 PM INDICATION: Cough with hemoptysis TECHNIQUE: Helical acquisition through t he chest was performed during the arterial phase of contrast enhancement u sing IV contrast. 2D and 3D reconstructions were performed by the certified ophthalmic technologist. Dose reduction techniques were used. IV CONTRAST: 100 mL Omnipaque 350 COMPARISON: None. FINDINGS: ANGIOGRAM CHEST: Negative for pulmonary emboli. Negative for thoracic aortic dissection and aneurysms. LUNGS AND PLEURA: There is a small cyst in the right middle lobe partially obscured by motion. There are calcified granulomas in the left lower lobe. There is some material in the trachea th at may represent blood or mucus. There is a 2 to 3 mm right upper lobe no dule on image 30 series 11 that is not calcified. MEDIASTINUM: There are prominent calcifi ed subcarinal lymph nodes. On the coronal reconstructions these are near t he rubio. LIMITED UPPER ABDOMEN: Negative. MUSCULOSKELETAL: Negative. CONCLUSION: 1. ??No pulmonary embolism is seen. No a ortic dissection is seen. 2. ??In addition to calcified granulomas in the left lung there are prominent calcified subcarinal lymph nod es. These can occasionally erode into a bronchus and cause hemoptysis. 3. ?? Small densities along the wall of the trachea likely represent ??mucus or blood. If these are mucus or blood th ey would be expected to be absent on a follow-up CT; true tracheal lesions or nodules would not resolve on follow-up CT Procedure Note Ranjeet Young MD - 07/17/2015Formatt ing of this note might be different from the original. CTA PE STUDY 07/17/2015 1:36 PM INDICATION: Cough with hemoptysis TECHNIQUE: Helical acquisition through t he chest was performed during the arterial phase of contrast enhancement u sing IV contrast. 2D and 3D reconstructions were performed by the certified ophthalmic technologist. Dose reduction techniques were used. IV CONTRAST: 100 mL Omnipaque 350 COMPARISON: None. FINDINGS: ANGIOGRAM CHEST: Negative for pulmonary emboli. Negative for thoracic aortic dissection and aneurysms. LUNGS AND PLEURA: There is a small cyst in the right middle lobe partially obscured by motion. There are calcified granulomas in the left lower lobe. There is some material in the trachea th at may represent blood or mucus. There is a 2 to 3 mm right upper lobe no dule on image 30 series 11 that is not calcified. MEDIASTINUM: There are prominent calcifi ed subcarinal lymph nodes. On the coronal reconstructions these are near t he rubio. LIMITED UPPER ABDOMEN: Negative. MUSCULOSKELETAL: Negative. CONCLUSION: 1. No pulmonary embolism is seen. No aor tic dissection is seen. 2. In addition to calcified granulomas i n the left lung there are prominent calcified subcarinal lymph nod es. These can occasionally erode into a bronchus and cause hemoptysis. 3. Small densities along the wall of the trachea likely represent mucus or blood. If these are mucus or blood th ey would be expected to be absent on a follow-up CT; true tracheal lesions or nodules would not resolve on follow-up CT Lida Dinero MD RAD CT XR CHEST PA/AP AND LAT 2 VIEWS (07/17/2015 12:27 PM PICKLE CUTTER) Anatomical Region Laterality Modality Chest, Lung Computed Radiography Specimen (Source) Anatomical Collection Method Collection Time Re ceived Time Location / / Volume Laterality 07/17/2015 12:27 PM PICKLE CUTTER Narrative 07/17/2015 12:32 PM PICKLE CUTTER XR CHEST AP/PA AND LAT 2VWS 07/17/2015 12:27 PM INDICATION: Cough. ? COMPARISON: 02/09/2014 FINDINGS: There are calcified granulomas in the left lung. The lungs are otherwise clear. Thoracic aorta is ectat ic the pulmonary vasculature is normal, there are old rib fractures on t he left Procedure Note Ranjeet Young MD - 07/17/2015Formatt ing of this note might be different from the original. XR CHEST AP/PA AND LAT 2VWS 07/17/2015 12:27 PM INDICATION: Cough. COMPARISON: 02/09/2014 FINDINGS: There are calcified granulomas in the left lung. The lungs are otherwise clear. Thoracic aorta is ectat ic the pulmonary vasculature is normal, there are old rib fractures on t he left Lida Dinero MD RAD GD REGULAR RED HOLD TUBE (07/17/2015 12:05 PM PICKLE CUTTER) [facility] gist Method Time Signature Regular Red Serum aliquot [facility] Hold held in HOSPITAL Chemistry sample rack for 7 days. Specimen Anatomical Collection Method Collection Time Receive d Time (Source) Location / / Volume Laterality 07/17/2015 12:05 07/17/2015 PM PICKLE CUTTER 12:10 PM PICKLE CUTTER Narrative [facility] - 07/17/2015 12:[address] Performed at [facility], [address] [place] [address] Lida Dinero MD LAB_1 Performing Organization Address City/[facility]/ZIP [facility] Phon e Number [address] [address] GOLD HOLD TUBE (OR RED/BASS) (07/17/2015 12:05 PM PICKLE CUTTER) [facility] gist Method Time Signature Gold Hold Held in [facility] Chemistry HOSPITAL sample rack for 7 days Specimen Anatomical Collection Method Collection Time Receive d Time (Source) Location / / Volume Laterality 07/17/2015 12:05 07/17/2015 PM PICKLE CUTTER 12:10 PM PICKLE CUTTER Narrative [facility] - 07/17/2015 12:[address] Performed at [facility], [address] [place] [address] Lida Dinero MD LAB_1 Performing Organization Address City/[facility]/ZIP Code Phon e Number [address] [address] COAG HOLD (BLUE TUBE) (07/17/2015 12:05 PM PICKLE CUTTER) athologist Signature Coag Hold Held in [facility] for 8 hours Specimen Anatomical Collection Method Collection Time Receive d Time (Source) Location / / Volume Laterality 07/17/2015 12:05 07/17/2015 PM PICKLE CUTTER 12:10 PM PICKLE CUTTER Narrative [facility] - 07/17/2015 12:[address] Performed at [facility], [address] [place] [address] Lida Dinero MD LAB_1 Performing Organization Address City/[facility]/ZIP Code Phon e Number [address] [address] HEMOGRAM/PLTS (07/17/2015 12:05 PM PICKLE CUTTER) athologist Signature WBC 6.4 4.0 - 11.0 [facility] RBC 4.98 4.5 - 5.9 [facility] Hemoglobin 15.7 13.5 - 17.5 [facility] g/dl HOSPITAL HCT 46.5 41.0 - 53.0 [facility] % [facility] MCV 93.4 80 - 100 fl [facility] MCH 31.5 26 - 34 pg [facility] MCHC 33.8 32 - 36 [facility] g/dl HOSPITAL RDW 14.0 11.5 - 14.5 [facility] Platelets 164 150 - 450 [facility] k/[facility] MPV 9.6 6.5 - 11.0 [facility] Specimen Anatomical Collection Method Collection Time Receive d Time (Source) Location / / Volume Laterality 07/17/2015 12:05 07/17/2015 PM PICKLE CUTTER 12:10 PM PICKLE CUTTER Narrative [facility] - 07/17/2015 12:[address] Performed at [facility], [address] [place] [id number] Lida Dinero MD LAB_1 Performing Organization Address City/State/ZIP Code Phon e Number [address] [address] (ABNORMAL) BASIC METABOLIC PANEL (07/17/2015 12:05 PM PICKLE CUTTER) athologist Signature Sodium 142 135 - 145 [facility] mmol/L [facility]PITAL Potassium 4.5 3.5 - 5.3 [facility] mmol/L [facility] Chloride 108 (H) 95 - 106 [facility] mmol/L [facility] CO2 30 22 - 30 [facility] mmol/L [facility] Anion Gap 4 (L) 7 - 16 [facility] (calc.) mmol/L [facility]OSPITAL Glucose 105 70 - 180 [facility] mg/dl [facility] Calcium 8.2 (L) 8.4 - 10.2 [facility] mg/dl [facility] BUN 17 7 - 20 [facility] mg/dl [facility] Creatinine 1.24 0.66 - [facility] 1.25 mg/dl [facility]OS[facility]ITAL GFR, Estimated 55 (L) >60 [facility] ml/min/1.7 [facility] 3m2 Comment: The National Kidney Disease Education Pr ogram suggests measuring Cystatin C in patients with eGFRcrea of 45 to 59 ml/min/1.73^2 who do not have other markers of kidney damage (i.e.,elevated urine Albumin/Creatinine Ratio or a prior Cys tatin C confirming the presence of Chronic Kidney Disease.) GFR, Est., If Black >60 >60 ml/min/1.73m2 [facility] Specimen Anatomical Collection Method Collection Time Receive d Time (Source) Location / / Volume Laterality 07/17/2015 12:05 07/17/2015 PM PICKLE CUTTER 12:10 PM PICKLE CUTTER Narrative [facility] - 07/17/2015 12:[address] Performed at [facility], [address] [place] [address] Lida Dinero MD LAB_1 Performing Organization Address City/State/ZIP Code Phon e Number [address] [address] documented in this encounter Visit Diagnoses Diagnosis Cough with hemoptysis - Primary Other hemoptysis documented in this encounter Care Teams Deputy Commonwealth'S Attorney Relationship Specialty Start Date End Date Ramses Cleary MD PCP - General Family Practice 10/21/11 documented as of this encounter
--- OUTSIDE RECORDS SUMMARY | 2022-02-24 12:25 | XMS_ITS | Encounter Summary ---
:1935 Author Organization [facility] Address [address], [place] [address] Care Team Providers Name Role Phone Ramses Cleary MD Primary Care Provider Unavailable Reason for Visit Reason Comments COUGH HEADACHE CONGESTION, SINUS DIARRHEA Encounter Details Date Type Department Care Team Description 06/04/2015 Office Visit [facility] Leyda Patel Bro nchitis (Primary Dx); Beatriz Tabor MD Travel advice encounter Practice [address] [place] [address] [place], [place] [phone] Social History Tobacco Use Types Packs/Day Years [...] Sign Reading Time Taken Comments Blood Pressure 138/82 06/04/2015 1:01 PM ALTERATION TAILOR APPRENTICE Pulse 70 06/04/2015 1:01 PM ALTERATION TAILOR APPRENTICE Temperature 36.4 ??C (97.6 ??F) 06/04/2015 1:01 PM ALTERATION TAILOR APPRENTICE Respiratory Rate 16 06/04/2015 1:01 PM ALTERATION TAILOR APPRENTICE Oxygen Saturation 97% 06/04/2015 1:01 PM ALTERATION TAILOR APPRENTICE Inhaled Oxygen Concentration - - Weight 108 kg (238 lb) 06/04/2015 1:01 PM ALTERATION TAILOR APPRENTICE Height 174 cm (5' 8.5) 06/04/2015 1:01 PM ALTERATION TAILOR APPRENTICE Body Mass Index 35.66 06/04/2015 1:01 PM ALTERATION TAILOR APPRENTICE documented in this encounter Progress Notes Leyda Patel MD - 06/04/2015 1:36 PM CST SUBJECTIVE: Zaid Rutledge is a 80 y.o. male who complains of coryza, sinus and nasal congestion, post nasal drip,chills, low grade fevers, chest congestion and productive cough for 2 + weeks . He denies a history of wheezing or shortness of breath and denies a history of asthma. Patient does not smoke cigarettes. He also is going to [facility] on July 07 and wants to know if he needs any shots. He also needs flu shot. OBJECTIVE: BP 138/82 mmHg Pulse 70 Temp(Src) 97.6 ??F (36.4 ??C) (Oral) Resp 16 Ht 5' 8.5 (1.74 m) Wt 238 lb (107.956 kg) BMI 35.66 kg/m2 SpO2 97% He appears well. Ears normal. Throat and pharynx normal. Neck supple. No adenopathy in the neck. Nose is congested. Sinuses non tender. The chest is clear, without wheezes or rales. ASSESSMENT: ICD-10-CM 1. Bronchitis J40 azithromycin (ZITHROMAX Z-CINTHYA) 250 MG tablet guaifenesin/codeine (AKA TUSSI-ORGANIDIN NR) 100-10 MG/5ML syrup 2. Travel advice encounter Z71.89 HEPA ADULT (19+ YRS)) typhoid live attenuated vaccine (AKA VIVOTIF) delayed release capsule Will return for Hep A and flu shot. Not given as he is sick. Symptomatic therapy suggested: push fluids, rest, use acetaminophen, ibuprofen prn and return to clinic if symptoms persist or worsen. Call or return to clinic prn if these symptoms worsen or fail to improve as anticipated. RATION TAILOR APPRENTICE documented in this encounter Plan of Treatment Not on filedocumented as of this encounter Visit Diagnoses Diagnosis Bronchitis - Primary Bronchitis, not specified as acute or ch ronic Travel advice encounter documented in this encounter Care Teams Mexican Food Maker Hand Relationship Specialty Start Date End Date Ramses Cleary MD PCP - General Family Practice 10/21/11 documented as of this encounter
--- OUTSIDE RECORDS SUMMARY | 2022-02-24 12:25 | XMS_ITS | Encounter Summary ---
:1935 Author Organization [facility] Address [address] [place] [address] Care Team Providers Name Role Phone Ramses Cleary MD Primary Care Provider Unavailable Encounter Details Date Type Department Care Team Description 09/20/2014 Orders Only [facility] Encoun ter for long-term [employer] [facility] (current) use of other [address] [place] [address] Social History Tobacco Use Types Packs/Day [...] Name Priority Date/Time Associated Diagnosis Comme nts ALT (SGPT) Routine 09/20/2014 11:35 AM Encounter For Results for this CDT Long-Term (Current) procedur e are in Use Of Other the results Medications section. documented in this encounter Results ALT (SGPT) (09/20/2014 11:35 AM CDT) athologist Signature ALT (SGPT) 68 12 - 78 U/L [facility] Specimen Anatomical Collection Method Collection Time Receive d Time (Source) Location / / Volume Laterality 09/20/2014 11:35 09/20/2014 AM CDT 11:40 AM CDT Narrative [facility] - 09/20/2014 12:54 PM C DT Performed at [facility], [address] [place] [address] Ramses Cleary MD LAB_1 Performing Organization Address City/State/ZIP Code Phon e Number [address] [address] documented in this encounter Visit Diagnoses Diagnosis Encounter for long-term (current) use of other medications documented in this encounter Care Teams Fiber Heel Piece Shaper Relationship Specialty Start Date End Date Ramses Cleary MD PCP - General Family Practice 10/21/11 documented as of this encounter
--- OUTSIDE RECORDS SUMMARY | 2022-02-24 12:25 | XMS_ITS | Encounter Summary ---
:1935 Author Organization [facility] Address [address] [place] [address] Care Team Providers Name Role Phone Ramses Cleary MD Primary Care Provider Unavailable Reason for Visit Procedure/Equipment (Routine) - Closed Specialty Diagnoses / Procedures Referred By Contact Refer red To Contact Radiology Arrey Procedures Lida Dinero, Lv Radiology CT ANGIOGRAPHY PULMONARY MD [address] [place] [address] EMBOLISM STUDY [address] [place] [address] [place] [address] Referral ID Status Reason Start Date Expiration Date Visits Requ ested Visits Authorized [id number] Closed 07/17/2015 1 1 Encounter Details Date Type Department Care Team Description 07/17/2015 Imaging [facility] Ra diology CT [address] [place] [address] Social History Tobacco Use Types Packs/Day Years [...] Date/Time Associated Diagnosis Comme nts CT ANGIO CHEST W IV STAT 07/17/2015 1:36 PM Re sults for this CONT PE STUDY DEMAND MANAGER procedure are in the results section. documented in this encounter Visit Diagnoses Not on filedocumented in this encounter Administered Medications Inactive Administered Medications - up to 3 most recent administrations Medication Order MAR Action Action Date Dose Rate Site iohexol (aka OMNIPAQUE) 350 MG/ML Given 07/17/2015 1:37 PM DEMAND MANAGER 9 9 mL injection 100 mL 100 mL, Intravenous, ONCE (NON-SCHEDULED), Starting on Thu07/17/15 at 1336, Until Thu07/17/15 at 1337, For 1 dose documented in this encounter Care Teams Scrap Crane Operator Relationship Specialty Start Date End Date Ramses Cleary MD PCP - General Family Practice 10/21/11 documented as of this encounter
--- OUTSIDE RECORDS SUMMARY | 2022-02-24 12:25 | XMS_ITS | Encounter Summary ---
:1935 Author Organization [facility] Address [address], [place] [address] Care Team Providers Name Role Phone Ramses Cleary MD Primary Care Provider Unavailable Reason for Visit Reason Comments Hearing Aid HACK/ComPilot Encounter Details Date Type Department Care Team Description 04/05/2015 Office Visit [facility] Neural hearing loss, [place] [facility] (Primary Dx) [facility] [address] [place] [phone] Social History Tobacco Use Types Packs/Day [...] documented as of this encounter Progress Notes Pippa Mims - 04/05/2015 4:06 PM CDT SUBJECTIVE: Zaid was seen today for a routine check up. He wanted to also learn more about some accessories thatwill help him hear his in the car and on the phone. OBJECTIVE: Cleaned ear molds and aids. Changed microphone covers, hooks, and tubes. Demo'd ComPilot and Mike combo. Paired with cell phone. ASSESSMENT: Hearing aid check Demoing ComPilot & Mike for trip with . [id number] PLAN: Follow up after trip to purchase or return ComPilot & Mike . Follow up as needed for ANN's. Pippa Mims 04/05/2015 documented in this encounter Plan of Treatment Not on filedocumented as of this encounter Visit Diagnoses Diagnosis Neural hearing loss, bilateral - Primary documented in this encounter Care Teams Sales Expert Home Theater Relationship Specialty Start Date End Date Ramses Cleary MD PCP - General Family Practice 10/21/11 documented as of this encounter
--- OUTSIDE RECORDS SUMMARY | 2022-02-24 12:25 | XMS_ITS | Encounter Summary ---
:1935 Author Organization [facility] Address [address], [place] [address] Care Team Providers Name Role Phone Ramses Cleary MD Primary Care Provider Unavailable Encounter Details Date Type Department Care Team Description 08/01/2015 Notes/Orders [facility] Ramses Cleary for Beatriz Shipman MD long-term (current) Practice [address] use of medications [address] (Primary Dx) [place] [address] [place], [place] [phone] Social History Tobacco Use Types Packs/Day Years [...] documented as of this encounter Nursing Notes Alan Evans - 08/05/2015 8:27 AM CST Ordered per Refill Standing Order/Protocol. Reminder letter for lab sent. Alan Evans 08/05/2015, 8:30 AM LVN Interface, Out Digistrive Prov Query - 08/01/2015 12:56 PM CST ORDER THE FOLLOWING: - ALANINE AMINOTRANSFERASE (ALT): Pended to encounter. SCHEDULE THE FOLLOWING: - ALANINE AMINOTRANSFERASE (ALT) BY: 09/15/2015 (Coming due as of 09/15/2015 for allopurinol (AKA ZYLOPRIM) 100 MG tablet) - LAST QUALIFYING VISIT IN [facility]: 06/04/2015 - NEXT SCHEDULED VISIT: None - NEXT LAB VISIT,APPOINTMENT: 10/19/2015 Powered by [employer], Reference: [id number], 08/01/2015 12:56:16 PM RN LVN, Pool: PETER JEFFERY RN ([id number]) LVN documented in this encounter Plan of Treatment Not on filedocumented as of this encounter Visit Diagnoses Diagnosis Encounter for long-term (current) use of medications - Primary Encounter for long-term (current) use of other medications documented in this encounter Care Teams Corrective And Manual Arts Therapist Relationship Specialty Start Date End Date Ramses Cleary MD PCP - [facility] 10/21/11 documented as of this encounter
--- OUTSIDE RECORDS SUMMARY | 2022-02-24 12:25 | XMS_ITS | Encounter Summary ---
:[address] [facility] Address [address] [address] Care Team Providers Name Role Phone Ramses Cleary MD Primary Care Provider Unavailable Reason for Visit Reason Comments BIOPSY TRUS Encounter Details Date Type Department Care Team Description 10/31/[address] [facility] Waqas Rodney ostate cancer Polo Edson Griffith MD (Primary Dx) [facility] [address] [place] [address] [place], [place] [phone] Social History Tobacco Use Types Packs/Day Years [...] Sign Reading Time Taken Comments Blood Pressure 164/100 10/31/2014 11:27 AM CDT Pulse 70 10/31/2014 11:27 AM CDT Temperature - - Respiratory Rate - - Oxygen Saturation - - Inhaled Oxygen Concentration - - Weight - - Height - - Body Mass Index - - documented in this encounter Patient Instructions Patient InstructionsStWaqas haynes MD - 10/31/2014 11:30 AM CDT Images from the original note were not included. Prostate Biopsy and Ultrasound: After Your Visit Your Care Instructions A prostate biopsy is a type of test. A doctor takes small tissue samples from your prostate gland. Then another doctor looks at the tissue under a microscope to see if there are cancer cells, signs of infection, or other problems. You may need a biopsy if your doctor found something abnormal during a digital rectal exam. Or you may need it if a blood test showed a high level of prostate- specific antigen (PSA). A biopsy can help find out why your PSA level is high. It can also tell if you have prostate cancer. You will get anesthesia to help numb the prostate. The test takes under 5 minutes and can be done a few different ways. In most cases, the doctor puts a needle through your rectum. This is the fastest and least painful way to get the sample. Local anesthesia (Lidocaine) is used. The doctor may use ultrasound to help place the needle. During an ultrasound, the doctor puts a small device in your rectum that bounces sound waves off the prostate gland. The pattern of the sound waves creates a picture. This picture helps the doctor find the right spot to put the needle. Typically,12 biopsies are obtained. Follow-up care is a gonzales part of your treatment and safety. Be sure to make and go to all appointments, and call your doctor if you are having problems. It's also a good idea to know your test results and keep a list of the medicines you take. How can you care for yourself at home? Before the test ?? Your doctor will prescribe an antibiotic for you to take. ?? If your doctor tells you to, stop taking blood thinners, aspirin, or medicines that contain aspirin. ?? You should have an enema before the test. ?? If you are to be sedated before the test, you will need a school bus driver/custodian. After the test ?? Do not do heavy work or exercise for 4 hours after the test. ?? You may have a little pain in your pelvic area. You may also have a little blood in your urine and/or stool for up to 5 days. ?? You may have some blood in your semen for a month or two when you ejaculate. ?? Stay off aspirin for 2 more days ?? Take your antibiotics as directed. Do not stop taking them just because you feel better. You needto take the full course of antibiotics. When should you call for help? Call your doctor now or seek immediate medical care if: ?? You have heavy bleeding from your rectum or in your urine. ?? You have pain in your pelvic area that gets worse. ?? You have a fever. ?? You cannot urinate within 8 hours. Watch closely for changes in your health, and be sure to contact your doctor if: ?? You have light rectal bleeding that does not stop after 2 to 3 days. ?? You do not get better as expected. ?? documented in this encounter Progress Notes Waqas Rodney MD - 10/31/2014 11:30 AM CDT Date of Service: 10/31/2014 TRANSRECTAL ULTRASOUND BIOPSY OF THE PROSTATE (TRUS/Bx) Indication: prostate cancer. The patient understands the risk and benefits of prostate ultrasound and biopsy and has signed a consent. I mentioned that there are rare reports of temporary ED from biopsies, and sepsis. He understands the biopsy may miss a smaller occult prostate cancer. He was placed in left lateral position and the 7 mHz probe was inserted into the rectal fossa. The prostate, seminal vesicles and bladder were visualized. BLADDER: low volume residual SEMINAL VESICLES: normal PROSTATE: There were no significant calculi. There were no hypoechoic areas seen. There was no significant middle lobe. The prostate measured 37 cc. The perirectal space was anesthetized with 10 cc of 1% Xylocaine. Sextant biopsies were done using a17 gauge needle gun. The right and left base, mid and apex peripheral and central zones were each sampled. Total biopsies: 12 This was well tolerated and there was minimal bleeding with no rectal hematoma present after removalof the probe. This was well tolerated and there was minimal bleeding with no rectal hematoma present after removalof the probe. documented in this encounter Plan of Treatment Not on filedocumented as of this encounter Results SURGICAL PATH (10/31/2014 5:22 PM CDT) [facility] Time Signature Histology (NOTE) [facility] [...] left apex, needle biopsy - ?1. 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 ??1 of 3 needle cores positive ?3. ??5% tissue involvement ?4. ??Perineural invasion not identified ?? Comments Deepika Arellano at Dr. Rodney's office is informed of the jayce gnosis on November 01, 2014. Electronically Signed Out By Kee Becerra MD Roberto Rodgers MD ([id number]) Kee Becerra MD Procedures/Addenda Clinical History Prostate [...] examination is performed on 24 slides. ?? snp/11/01/2014 Roberto Rodgers MD ([id number]) Kee Becerra MD [facility] Department of Pathology [address] [place] [address] ??[phone] Specimen Anatomical Collection Method Collection Time Receive d Time (Source) Location / / Volume Laterality 10/31/2014 5:22 PM 5 5:39 CDT PM CDT Waqas Rodney MD LAB_1 Performing Organization Address City/State/[facility] Code Phon e Number [address] [phone] documented in this encounter Visit Diagnoses Diagnosis Prostate cancer ([facility]) - Primary Malignant neoplasm of prostate documented in this encounter Care Teams Manager Multimedia Relationship Specialty Start Date End Date Ramses Cleary MD PCP - General Family Practice 10/21/11 documented as of this encounter
--- OUTSIDE RECORDS SUMMARY | 2022-02-24 12:25 | XMS_ITS | Encounter Summary ---
:1935 Author Organization [employer] Address [address], [place] [address] Care Team Providers Name Role Phone Ramses Cleary MD Primary Care Provider Unavailable Reason for Visit Auth/Cert Specialty Diagnoses / Procedures Referred By Contact Refer red To Contact Diagnoses lumbar spinal stenosis Procedures FORAMINOTOMY POSTERIOR APPROACH LUMBAR SPINE, Laterality: Left Referral ID Status Reason Start Date Expiration Date Visits Requ ested Visits Authorized [id number] 1 1 Encounter Details Date Type Department Care Team Description 10/29/2015 Anesthesia Event LV Operating Room Rita Yost MD [address] [place] [address] [place], [place] [address]Keshav Valerie Simpson, LEGAL PRACTICE MANAGER, AIR HAMMER OPERATOR [address] [place] [address] [place] [address] Anesthesia Record Procedure Summary Procedure Name Responsible Anesthesia Start Anesthesia Stop Anesthesiologist Time Time L3-4, L4-5 LATERAL Rita Yost MD 10/29/15 1013 0511/28 1224 RECESS DECOMPRESSION (Left: Back) Events Date Time Event Comment 10/29/2015 0958 1013 An Start 1014 An Start Data 1019 An Induction 1020 MD/DO Present 1021 An Intubation 1023 AN Gas Start 1045 an nivia now Surgery start 1210 An Emergence 1210 AN Gas Stop 1217 An Extubation Purposeful movem ent with spontaneous respirations and adequate air exchange. Suctioned and ET T removed. Transferred with oxygen to [facility]. 1217 Nasal Canula/O2 Mask 1218 an stop data 1224 An Stop Care transferred . 1224 Care Handoff Note Airway patent . Vital signs stable. Condition unchanged. Repor t given according to policy and procedure. Elect ronically signed by Valerie Pinon APRN, CR NA 1424 AN Close Name Total fentaNYL injection (aka SUBLIMAZE) 3 mL lidocaine 2% PF injection aka (XYLOCAINE) 80 mg propofol 10 mg/mL for procedural sedation (aka diPRIva n) 150 mg succinylcholine injection (aka QUELICIN) 100 mg glycopyrrolate injection (aka ROBINUL) 0.2 mg ePHEDrine 50 mg prediluted syringe 15 mg ondansetron injection (aka ZOFRAN) 4 mg dexamethasone 4 mg/mL injection (aka DECADRON) 4 mg ceFAZolin (aka ANCEF) 2 g 2 g lactated ringers infusion 1,000 mL 1,600 mL Agents Name O2 Air Sevoflurane () Blood No blood administrations on file. Lines, Drains, and Airways Type Details Placement Removal Peripheral IV Placement Date: 10/29/15 0945 by 10/30/15 1322 b y 10/29/15; Placement Kam Acosta RN Anselmo, April L, RN Time: 0945; Pre-existing: No; Inserted by?: RN; Size (Gauge): 18 G; Orientation: Left; Location: Hand; Site Prep: Chlorhexidine; Local Anesthetic: None; Insertion attempts: 1; Blood draw with insertion?: no; Patient Tolerance: Tolerated well; Removal Date: 10/30/15; Removal Time: 1322; Removal Reason: Per Protocol; Catheter Tip: Intact ETT Placement Date: 10/29/15 1021 by 10/29/15 1217 b y 10/29/15; Placement Valerie Pinon APRN, Valerie Pinon APRN, Time: 1021; Placed By: AIR HAMMER OPERATOR AIR HAMMER OPERATOR AIR HAMMER OPERATOR; Induction Type: Pre-O2, IV; Masking: Easy; ETT Type: ETT; Orientation: Right; Depth Secured (cm): 24 cm; Cuffed: Cuffed; Cuff Volume: 8 mL; Intubation Method: DL; Cormack_Lehane Glottic Grade: Grade 1; Glottic View: Cords Open; Blade: Bass; Insertion attempts: 1; Difficulty: Atraumatic; Adjunct Equipment: Stylet; Placement Verification: BBSE, Positive EtCO2; Teeth and Lips Unchanged: Unchanged; Emergence: Following commands, Opening eyes, Spontaneous respirations, Adequate air exchange; Suctioned: Oropharnyx; Removal Date: 10/29/15; Removal Time: 1217; Extubation By: AIR HAMMER OPERATOR; Transferred with Oxygen: Yes Indwelling Urethral 10/29/15; 1030; No; RB; 10/29/15 1030 by 1213 by Catheter Gaines, Non-Latex; 16 Keyana Torrez, Keyana Joseph, Fr.; Per order RN RN Incision/Surgical 10/29/15; 1145; Back; 10/29/15 1145 by 6 1338 by Brandi, Site Lower; 11/13/15; 1338 Keyana Torrez Disco ntinue RN documented in this encounter Social History Tobacco [...] encounter Miscellaneous Notes Anesthesia Postprocedure Evaluation - Rita Yost MD - 10/29/2015 2:29 PM CDT [facility] Anesthesia Post-op Note Patient: Zaid Rutledge Post-Op Diagnosis: Lumbar spinal stenosis Procedure Performed: Procedure(s): L3-4, L4-5 LATERAL RECESS DECOMPRESSION Anesthesia type: general Patient location: PACU Post-op pain control: Satisfactory PONV: None Cardiovascular Function: Satisfactory Post-op Hydration: Satisfactory Respiratory Function: Satisfactory Airway Patency: Patent Post-op vital signs: BP 141/82 mmHg Pulse 72 Temp(Src) 97.8 ??F (36.6 ??C) (Oral) Resp 16 Ht5' 7 (1.702 m) Wt 107.531 kg (237 lb 1 oz) BMI 37.12 kg/m2 SpO2 94% Pain Score: Pain Rating: Rest: 5 Pain Rating: Activity: 5 Level of consciousness: Awake Patient participates in evaluation: Mental status recovered: Yes Complications: No apparent anesthetic complications Post-op assessment: Patient tolerated procedure well Rita Sepulveda MD 10/29/2015 2:29 PM Anesthesia Preprocedure Evaluation - Rita Yost MD - 10/29/2015 9:33 AM CDT [facility] Anesthesia Pre-op Evaluation Procedure: Procedure(s): L3-4, L4-5 LATERAL RECESS DECOMPRESSION HPI: 80 y.o. old male with Lumbar spinal stenosis NPO Status: Last Fluid Intake Time: 2200 Last Fluid Intake Date: 10/28/15 Last Food Intake Date: 10/28/15 Last Food Intake Time: 2099 Allergies Allergen Reactions ??? Banana Other, see comments Throat swelling, wheezing Also avoids melons ??? Excedrin [Diphenhydramine] Breathing Difficulty Past Medical History Diagnosis Date ??? 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 Cataracts, bilateral Patient Active Problem List Diagnosis ??? SPINAL [...] and epididymitis ??? GERD (GASTROESOPHAGEAL REFLUX DISEASE) ROS: GERD: Yes Smoking:Former ETOH: No Recent URI: No Past Surgical History Procedure Laterality Date ??? [...] ??? 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 acetaminophen (AKA [...] into both nostrilstwo times a day. ??? gabapentin (AKA NEURONTIN) 300 MG capsule Take 300 mg by mouth three times a day. ??? guaiFENesin (AKA MUCINEX) [...] HOUR BEFORE A MEAL 180 Cap 3 Current Facility-Administered Medications Medication Dose Route Frequency ??? bacitracin 100,000 Units, gentamicin 1,000 mg, polymyxin B 1,000,000 Units in NaCl 0.9 % 1,000 mL irrigation Intra-Op ??? bupivacaine 0.25% (PF) 0.25 % injection SOLN Intra-Op ??? ceFAZolin (aka ANCEF) 2 g 2 g Intravenous Once (Non-Scheduled) ??? gelatin sponge (aka GELFOAM) 100 dressing Intra-Op ??? SURGIFOAM POWDER 1 GM Intra-Op ??? thrombin topical liquid Intra-Op Labs: Lab Results Component Value Date/Time SODIUM 143 10/19/2015 11:12 AM K 4.1 10/19/2015 11:12 AM CHLORIDE 106 10/19/2015 11:12 AM CO2 27 10/19/2015 11:12 AM BUN 19 10/19/2015 11:12 AM CREATININE 1.13 10/19/2015 11:12 AM GLUCOSE 94 10/19/2015 11:12 AM Lab Results Component Value Date/Time WBC 5.3 10/29/2015 09:09 AM HGB 15.2 10/29/2015 09:09 AM HCT 46.0 10/29/2015 09:09 AM PLTS 160 10/29/2015 09:09 AM No results found for: INR No results found for: HCGQUANT Urine : Blood Bank: No results found for: ABORH, ABSCR EKG: Date of last EK10/19/15 ECG 12-LEAD ROUTINE Result Value Ref Range VENTRICULAR RATE 64 BPM ATRIAL RATE 64 BPM P-R INTERVAL 144 ms QRS DURATION 90 ms QT 418 ms QTC 431 ms P AXIS -7 degrees R AXIS -10 degrees T AXIS -3 degrees Physical Exam: BP 122/65 mmHg Pulse 68 Temp(Src) 98.6 ??F (37 ??C) (Temporal Artery) Resp 18 Ht 5' 7 (1.702 m) Wt 107.531 kg (237 lb 1 oz) BMI 37.12 kg/m2 SpO2 97% Mental Status: Awake, Alert, Oriented Airway: MPC2 Dentition: partials Heart:RRR Lungs:BS CTA Assessment/Plan: Updated History and Physical: H&P Reviewed and Patient examined, no change observed ASA Score: 3 Anesthesia Type: General, RSI and ETT Standard ASA Monitors Induction Agent: Propofol Maintenance: Balanced PONV Prophylaxis: Other Equipment Needed: Post-operative Care: Routine Analgesia Anesthetic Plan, Risks, Benefits and alternatives discussed with: Patient IV access Antibiotics per surgery Rita Sepulvead MD 10/29/2015 9:33 AM documented in this encounter Plan of Treatment Not on filedocumented as of this encounter Visit Diagnoses Not on filedocumented in this encounter Administered Medications Inactive Administered Medications - up to 3 most recent administrations Medication Order MAR Action Action Date Dose Rate Site ceFAZolin (aka ANCEF) 2 g Started 10/29/2015 10:25 AM CDT 2 g 2 g, Intravenous, ONCE (NON-SCHEDULED), Starting on Thu10/29/15 at 0747, If non-anaphylactic penicillin allergy, give 100 mg IV test dose. If no reaction, in 2-5 minutes, complete administration. Start 0 to 60 minutes prior to incision. Repeat in 4 hours if still intraop or if estimated blood loss exceeds 1500 mL, Pre-op dexamethasone (aka DECADRON) injection Given 10/29/2015 11:03 AM CDT 4 mg Starting on Thu10/29/15 at 1103 ePHEDrine injection Given 10/29/2015 10:40 AM CDT 5 mg Intravenous, Starting on Thu10/29/15 at 1036, Until Thu10/29/15 at 1224 Given 10/29/2015 10:38 AM CDT 5 mg Given 10/29/2015 10:36 AM CDT 5 mg fentaNYL (aka SUBLIMAZE) injection Given 10/29/2015 11:58 AM CDT 1 mL Starting on Thu10/29/15 at 1024 Given 10/29/2015 10:54 AM CDT 1 mL Given 10/29/2015 10:24 AM CDT 1 mL glycopyrrolate (aka ROBINUL) injection Given 10/29/2015 10:50 AM CDT 0.2 mg Starting on Thu10/29/15 at 1050 lactated ringers infusion 1,000 mL Started 10/29/2015 10:45 AM CDT 1,000 mL, Intravenous, at 25 mL/hr, CONTINUOUS, Starting on Thu10/29/15 at 1030, To be used preop UNLESS patient has renal failure, then use NaCl 0.9% IV., Pre-op Started 10/29/2015 9:45 AM CDT 1,000 mL 25 mL/hr lidocaine PF (aka XYLOCAINE) 2 % injecti on Given 10/29/2015 10:19 AM CDT 80 mg Starting on Thu10/29/15 at 1019, Until Thu10/29/15 at 1224 ondansetron (aka ZOFRAN) injection Given 10/29/2015 10:49 AM CDT 4 mg Starting on Thu10/29/15 at 1049, Until Thu10/29/15 at 1224 propofol (aka diPRIvan) injection Given 10/29/2015 10:19 AM CDT 150 mg Starting on Thu10/29/15 at 1019 succinylcholine (aka QUELICIN) injection Given 10/29/2015 10:19 AM CDT 100 mg Starting on Thu10/29/15 at 1019, Until Thu10/29/15 at 1224 documented in this encounter Care Teams Digital Content Coordinator Relationship Specialty Start Date End Date Ramses Cleary MD PCP - General Family Practice 10/21/11 documented as of this encounter
--- OUTSIDE RECORDS SUMMARY | 2022-02-24 12:25 | XMS_ITS | Encounter Summary ---
:1935 Author Organization [facility] Address [address] [address] Care Team Providers Name Role Phone Ramses Cleary MD Primary Care Provider Unavailable Encounter Details Date Type Department Care Team Description 10/19/2015 Lab Visit [facility] [[email or web address]] Elevat ed prostate [facility] specific antigen (PSA) [address] [place] [address] Social History Tobacco Use Types Packs/Day [...] encounter Progress Notes Deepika Arellano RN - 10/22/2015 9:18 AM CDT Quick Note: Will discuss test results with Dr. Rodney at his upcoming appt on 10-23-2015. Deepika Arellano RN 10/22/2015, 9:18 AM documented in this encounter Plan of Treatment Not on filedocumented as of this encounter Procedures Procedure Name Priority Date/Time Associated Diagnosis Comme nts PROSTATIC SPECIFIC Routine 10/19/2015 11:12 AM Elevated prosta te Results for this ANTIGEN (DIAGNOSTIC CDT specific antigen proc edure are in F/U) (PSA) the results section. documented in this encounter Results (ABNORMAL) PROSTATIC SPECIFIC ANTIGEN (F/U) (10/19/2015 11:12 AM CDT) [facility] gist Method Time Signature Prostatic Spec 5.7 (H) 0.00 - [facility] Ag 4.00 ng/ml LABORATORIES Specimen Anatomical Collection Method Collection Time Receive d Time (Source) Location / / Volume Laterality 10/19/2015 11:12 10/19/2015 AM CDT 11:25 AM CDT Narrative [facility] - 10/19/2015 2:36 PM C DT Performed at [facility], [address] [place] [address] Waqas Rodney MD LAB_1 Performing Organization Address City/State/ZIP Code Phon e Number [facility] [phone] documented in this encounter Visit Diagnoses Diagnosis Elevated prostate specific antigen (PSA) documented in this encounter Care Teams Hospitality Host Relationship Specialty Start Date End Date Ramses Cleary MD PCP - General Family Practice 10/21/11 documented as of this encounter
--- OUTSIDE RECORDS SUMMARY | 2022-02-24 12:25 | XMS_ITS | Encounter Summary ---
:1935 Author Organization [facility] Address [address], [place] [address] Care Team Providers Name Role Phone Ramses Cleary MD Primary Care Provider Unavailable Reason for Visit Reason Comments CHEST CONGESTION--ED sob, , hard to sleep, hx ast hma-using inhaler, mucinex,productive cough-whi te to yellow ,thick phlem,started about 2 weeks ago Encounter Details Date Type Department Care Team Description 11/16/2014 Office Visit [facility] Denise Domniguez (Primary Dx); Beatriz Barth MD [facility] [address] [place] [address] Social History Tobacco Use Types Packs/Day Years [...] Sign Reading Time Taken Comments Blood Pressure 98/66 11/16/2014 1:13 PM CDT Pulse 78 11/16/2014 1:13 PM CDT Temperature 36.5 ??C (97.7 ??F) 11/16/2014 1:13 PM CDT Respiratory Rate 18 11/16/2014 1:13 PM CDT Oxygen Saturation 98% 11/16/2014 1:13 PM CDT Inhaled Oxygen Concentration - - Weight 106.6 kg (235 lb) 11/16/2014 1:13 PM CDT Height - - Body Mass Index 35.21 07/31/2014 3:44 PM CARE ASSOCIATE documented in this encounter Progress Notes Denise Dominguez MD - 11/16/2014 3:15 PM CDT This office note has been dictated. Denise Dominguez MD - 11/16/2014 12:00 AM CDT DATE OF SERVICE: 11/16/2014 SUBJECTIVE: The patient is here because of 2 week history of congestion in his chest, coughing up primarily yellow mucus at this point. He has had fevers and chills. He feels short of breath and wheezing and tight in his chest. He has no ear pain. He has rhinitis, but that has been clear. The computers were down and I could not see what his medications were; however, he thought that he used Symbicortand albuterol for chronic respiratory issues and he has been using these diligently over the last 2 weeks. OBJECTIVE General: On exam, patient appears in no acute distress. Oriented x3, not agitated. Vital Signs: Please see EMR for vital signs. Nonsmoker. HEENT: PERRLA. Lids, lips, posterior pharynx, external canals and tympanic membranes are normal. Lymph: Negative anterior/posterior supraclavicular lymph nodes, no other masses in the neck. Chest: He had bilateral rhonchi with some expiratory wheezes. Cardiovascular: Regular sinus rhythm without murmur. ASSESSMENT Bronchitis. Bronchospasm. PLAN: Prednisone taper and Keflex. Denise Dominguez MD GDC:clr Dictated: 11/16/2014 14:36:00 Transcribed: 11/20/2014 09:17:18 Job: [id number] Doc: [id number] cc: documented in this encounter Plan of Treatment Not on filedocumented as of this encounter Visit Diagnoses Diagnosis Bronchitis - Primary Bronchitis, not specified as acute or ch ronic Bronchospasm Acute bronchospasm documented in this encounter Care Teams Powertrain Design Engineer Relationship Specialty Start Date End Date Ramses Cleary MD PCP - General Family Practice 10/21/11 documented as of this encounter
--- OUTSIDE RECORDS SUMMARY | 2022-02-24 12:25 | XMS_ITS | Encounter Summary ---
:1935 Author Organization [facility] Address [address], [place] [address] Care Team Providers Name Role Phone Ramses Cleary MD Primary Care Provider Unavailable Reason for Visit Reason Comments Refill omeprazole Encounter Details Date Type Department Care Team Description 08/13/2015 Refill [facility] Ramses Cleary, Refill (omeprazole) [facility] Pr anjelica MURRAY [address] [place] [address] [address] [phone] [place] [address] Social History Tobacco Use Types Packs/Day Years [...] encounter Nursing Notes Adelaide Rehman RN - 08/13/2015 3:58 PM CST Ordered per Refill Standing Order/Protocol. Adelaide Rehman RN 08/13/2015, 3:58 PM AND BLOWER OPERATOR Interface, [employer] Query - 08/13/2015 3:46 PM CST omeprazole (AKA PRILOSEC) 20 MG capsule [Pharmacy Med Name: OMEPRAZOLE 20MG CAPSULES] - REFILL: 12 months - PROTOCOL: Gastroenterology: Antiulcer - Proton Pump Inhibitors - RATIONALE: This refill should last until the patient is due for an office visit. - LAST QUALIFYING VISIT IN FAMILY PRACTICE: 06/04/2015 - NEXT SCHEDULED VISIT: None - LAST REFILLED ON: 08/14/2014, QTY: 180, Refills: 3, Sig: take 1 capsule by mouth twice daily one hour before a meal (changed but equivalent) - [age] Powered by [employer], Reference: [id number], 08/13/2015 3:46:26 PM PUMP AND BLOWER OPERATOR, Pool: PETER JEFFERY RN ([id number]) AND BLOWER OPERATOR documented in this encounter Plan of Treatment Not on filedocumented as of this encounter Visit Diagnoses Not on filedocumented in this encounter Care Teams Industrial Mechanic Relationship Specialty Start Date End Date Ramses Cleary MD PCP - General Family Practice 10/21/11 documented as of this encounter
--- OUTSIDE RECORDS SUMMARY | 2022-02-24 12:25 | XMS_ITS | Encounter Summary ---
:1935 Author Organization [facility] Address [address] [address] Care Team Providers Name Role Phone Ramses Cleary MD Primary Care Provider Unavailable Reason for Visit Reason Comments Medication Request Encounter Details Date Type Department Care Team Description 07/04/2015 Telephone [facility] Waqas Rodney dication Request [facility] MD [facility] [address] [place] [address] [place], [place] [phone] Social History Tobacco Use Types Packs/Day Years [...] encounter Nursing Notes Deepika Arellano RN - 07/04/2015 10:51 AM CST Returned call to patient and he states that he will be leaving for [facility] on Thursday and would like to have an antibiotic on hand in case he develops a UTI or bladder infection. Patient states that Dr. Rodney gave him a prescription when he went to [place]. Informed patient that he is due for a f/u with Dr. Rodney with a PSA level. Please advise. Deepika Arellano RN 07/04/2015, 10:[address] Madrid and he provided a verbal order for Cipro 500 mg BID #20 no refills. If patient develops a UTI to only take 5 days worth of the antibiotic. Medication has been teed up for Dr. Madrid. Deepika Arellano RN 07/04/2015, 10:58 AM Returned call to patient and notified him that [facility] [place], [place]. Informed patient that he was prescribed #20 tablets and he is only to take 5 days worth if he develops an infection. Patient verbalizes understanding. Deepika Arellano RN 07/04/2015, 11:01 AM OSOFT DYNAMICS DEVELOPER Charley De Los Santos - 07/04/2015 10:46 AM CST Reason for call? Patient would like to speak to you about getting an new medication from you. He didnot specify which medication or what his symptoms are. Please call. Best time to reach you? anytime Ok to leave a detailed message? yes Charley De Los Santos ....................................07/04/2015 10:46 AM OSOFT DYNAMICS DEVELOPER documented in this encounter Plan of Treatment Not on filedocumented as of this encounter Results (ABNORMAL) PROSTATIC SPECIFIC ANTIGEN (F/U) (07/20/2015 10:12 AM MICROSOFT DYNAMICS DEVELOPER) athologist Signature Prostatic Spec 6.95 (H) 0.00 - [facility] Ag 4.00 ng/ml HOSPITAL Specimen Anatomical Collection Method Collection Time Receive d Time (Source) Location / / Volume Laterality 07/20/2015 10:12 07/20/2015 AM MICROSOFT DYNAMICS DEVELOPER 10:17 AM MICROSOFT DYNAMICS DEVELOPER Narrative [facility] - 07/20/2015 12:[address] Performed at [facility], [address] [place] [address] Waqas Rodney MD LAB_1 Performing Organization Address City/State/ZIP Code Phon e Number [address] [address] documented in this encounter Visit Diagnoses Diagnosis Prostate cancer (HRC) - Primary Malignant neoplasm of prostate Prostate cancer ([facility]C) Malignant neoplasm of prostate documented in this encounter Care Teams Medical Reimbursement Specialist Relationship Specialty Start Date End Date Ramses Cleary MD PCP - General Family Practice 10/21/11 documented as of this encounter
--- OUTSIDE RECORDS SUMMARY | 2022-02-24 12:25 | XMS_ITS | Encounter Summary ---
:1935 Author Organization [facility] Address [address], [place] [address] Care Team Providers Name Role Phone No Primary/Referring, Phy Primary Care Provider Unavailable Encounter Details Date Type Department Care Team Description 10/29/2015 Consent for LV Surg IP Svc [facility] Procedure/Treatme [address] [facility], [place] [address] Provider [phone] Social History Tobacco Use Types Packs/Day Years [...] on filedocumented in this encounter Care Teams Assistant Toddler Teacher Relationship Specialty Start Date End Date No Primary/Referring, Phy PCP - General 12/11/21 documented as of this encounter
--- OUTSIDE RECORDS SUMMARY | 2022-02-24 12:25 | XMS_ITS | Encounter Summary ---
:1935 Author Organization [facility] Address [address], [place] [address] Care Team Providers Name Role Phone Ramses Cleary MD Primary Care Provider Unavailable Reason for Visit Reason Comments Revisit 6 Mo F/U Psa 5.07 Encounter Details Date Type Department Care Team Description 10/10/2014 Office Visit [facility] Waqas Rodney ostate cancer Marland Edson Griffith MD (Primary Dx) [facility] [address] [place] [address] [place], [place] [phone] Social History Tobacco Use Types Packs/Day Years [...] Sign Reading Time Taken Comments Blood Pressure 120/78 10/10/2014 4:28 PM CDT Pulse - - Temperature - - Respiratory Rate - - Oxygen Saturation - - Inhaled Oxygen Concentration - - Weight - - Height - - Body Mass Index - - documented in this encounter Patient Instructions Patient InstructionsStWaqas haynes MD - 10/10/2014 5:09 PM CDT We will repeat a biopsy and if cancer is found consider a genetic test (ie PROLARIS) on the tissue. I recommend checking into and possibly starting Zyflamend (herbal that has been shown to slow down the progression of prostate cancer) documented in this encounter Progress Notes Waqas Rodney MD - 10/10/2014 5:10 PM CDT S: I am seeing Zaid for recheck of his active surveillance prostate cancer and chronic urinary retention. He had a transurethral resection of the prostate that showed T1 adenocarcinoma of the prostate in 2009 3-4 months later underwent a biopsy that showed a low risk Lowman score 3+3 from the right base 1percent of tissue. Prostate-specific antigen is appropriate in the 5 range. He has in chronic urinary retention and catheterizes 5-6 times a day he brought in the diary is very mentally meticulous about this has not had a urinary tract infection in the past year. He has no trouble with catheterizationand uses a clean technique with no catheter every day. Residual urines are typically around 400 mL although occasionally will get up to 600.. There is no fever, significant weight loss or rash. No new urologic medications have been prescribed. O: Filed Vitals: 10/10/14 1628 BP: 120/78 Alert and oriented and good spirits. No rashes on the face or trunk. No gynecomastia, no flank masses. Abdomen and flank soft, no rebound or masses. No inguinal masses or hernia. Testis benign, descended. Urethral meatus normal, no peyronies plaques. Anal tone normal, no rectal masses, prostate benign and symmetric. Other tests: Prostate-specific antigen stable 5.07 A: Low risk prostate cancer. He has a approximate 10 year life expectancy based on longevity in his overall health. Low risk prostate cancer. P: Continue the catheterization schedule. Talk to him about Zyflamend and repeating a biopsy with possible genetic testing depending on results documented in this encounter Plan of Treatment Not on filedocumented as of this encounter Visit Diagnoses Diagnosis Prostate cancer (HRC) - Primary Malignant neoplasm of prostate documented in this encounter Care Teams Tech Intern Relationship Specialty Start Date End Date Ramses Cleary MD PCP - General Family Practice 10/21/11 documented as of this encounter
--- OUTSIDE RECORDS SUMMARY | 2022-02-24 12:25 | XMS_ITS | Encounter Summary ---
:1935 Author Organization [facility] Address [address] [place] [address] Care Team Providers Name Role Phone Ramses Cleary MD Primary Care Provider Unavailable Reason for Visit Procedure/Equipment (Routine) - Incomplete Specialty Diagnoses / Procedures Referred By Contact Refer red To Contact Procedures Lida Dinero MD XR CHEST PA/AP AND LAT [address] [place] [address] Referral ID Status Reason Start Date Expiration Date Visits V isits Requested Authorized [id number] Incomplete 07/17/2015 1 1 Encounter Details Date Type Department Care Team Description 07/17/[address] [address] Social History Tobacco Use Types Packs/Day Years [...] Diagnosis Comme nts XR CHEST 2 VIEWS STAT 07/17/2015 12:27 PM Resu lts for this CONVEYOR BELT INSTALLER procedure are i n the results section. documented in this encounter Results XR CHEST PA/AP AND LAT 2 VIEWS (07/17/2015 12:27 PM CONVEYOR BELT INSTALLER) Anatomical Region Laterality Modality Chest, Lung Computed Radiography Specimen (Source) Anatomical Collection Method Collection Time Re ceived Time Location / / Volume Laterality 07/17/2015 12:27 PM CONVEYOR BELT INSTALLER Narrative 07/17/2015 12:32 PM CONVEYOR BELT INSTALLER XR CHEST AP/PA AND LAT 2VWS 07/17/2015 [...] he left Lida Dinero MD RAD GD documented in this encounter Visit Diagnoses Not on filedocumented in this encounter Care Teams Marketing Developer Relationship Specialty Start Date End Date Ramses Cleary MD PCP - General Family Practice 10/21/11 documented as of this encounter
--- OUTSIDE RECORDS SUMMARY | 2022-02-24 12:25 | XMS_ITS | Encounter Summary ---
:1935 Author Organization [facility] Address [address], [place] [address] Care Team Providers Name Role Phone Ramses Cleary MD Primary Care Provider Unavailable Reason for Visit Reason Comments PRE-OP EXAM back surgery Encounter Details Date Type Department Care Team Description 10/19/2015 Office Visit [facility] Ramses Cleary Pre op examination (Primary Dx); Beatriz Shipman MD Low back pain (HRC); Practice [address] Encounter for long-term curr ent use of medication; [address] [place] [address] [place], [place] [phone] Social History Tobacco Use Types Packs/Day Years [...] Reading Time Taken Comments Blood Pressure 120/70 10/19/2015 10:40 AM CDT Pulse 74 10/19/2015 10:40 AM CDT Temperature 36.6 ??C (97.9 ??F) 10/19/2015 10:40 AM CDT Respiratory Rate 16 10/19/2015 10:40 AM CDT Oxygen Saturation 96% 10/19/2015 10:40 AM CDT Inhaled Oxygen Concentration - - Weight 107.5 kg (237 lb) 10/19/2015 10:40 AM CDT Height 178 cm (5' 10.08) 10/19/2015 10:40 AM CDT Body Mass Index 33.93 10/19/2015 10:40 AM CDT documented in this encounter Patient Instructions Patient InstructionsRamses Cleary MD - 10/19/2015 11:00 AM CDT OK to proceed with surgery. documented in this encounter Progress Notes Aubrie Brown CMA - 10/22/2015 11:11 AM CDT Quick Note: Tried reaching pt, no answer. LM on pt's VM (okay per demographics) of results. Clinic number provided for questions. Ramses Cleary MD - 10/22/2015 6:39 AM CDT Quick Note: Please call, Your blood sugar was normal. Your calcium level is borderline low. Your liver and kidney tests are otherwise normal. Ramses Cleary MD Ramses Cleary MD - 10/19/2015 10:46 AM CDT Pre-operative History and Physical Assessment Name: Zaid Rutledge : 1935 Primary physician: Ramses Cleary MD. Historical: Zaid Rutledge is a 80 y.o. old male is here for preoperative cardiac and risk evaluation. Patient is scheduled for back surgery on 10/29/[address] Pierre at [place]. Pertinent history: Has been having back pain. [...] prev. benign pros bx x 2 by Last time 12/13. ??? Surgical procedure prev. benign pros bx x 2 by Haikel. Last time 12/13. ??? Hx mohs right [...] Cardiac risk factor assessment: heart disease history (MS, angina, CABG, coronary stent)? no History of [...] risk assessment Preoperative cardiac evaluation algorithm from [facility] Electronically Signed By: Ramses Cleary MD 10/19/2015, 1:02 PM CC: documented in this encounter Plan of Treatment Not on filedocumented as of this encounter Procedures Procedure Name Priority Date/Time Associated Diagnosis Comme nts ECG 12-LEAD ROUTINE Routine 10/19/2015 11:19 AM Chest wall victor manuel n Results for this CDT procedure are i n the results section. GOLD HOLD TUBE (OR Routine 10/19/2015 11:12 AM Re sults for this RED/BASS) CDT procedure are i n the results section. LIVER PANEL(HEPATIC Routine 10/19/2015 11:12 AM Encounter for Results for this FUNCTION PANEL) CDT long-term current procedu re are in use of medication the result s section. BASIC METABOLIC Routine 10/19/2015 11:12 AM Encounter for Resu lts for this PANEL CDT long-term current procedure are in use of medication the result s section. documented in this encounter Results ECG 12-LEAD ROUTINE (10/19/2015 11:19 AM CDT) P athologist Signature Ventricular Rate 64 BPM [facility] Atrial Rate 64 BPM [facility] P-R Interval 144 ms [facility] QRS Duration 90 ms [facility] QT 418 ms [facility] QTc 431 ms [facility] P [place] -7 degrees [facility] R [place] -10 degrees [facility] T [place] -3 degrees [facility] Specimen (Source) Anatomical Collection Method Collection Time Re ceived Time Location / / Volume Laterality 10/19/2015 11:19 AM CDT Narrative [facility] - 10/19/2015 12:53 PM CDT Sinus rhythm Minimal voltage criteria for LVH, may be normal variant Borderline ECG When compared with ECG of 28-JUL-2014 17 :15, No significant change was found Confirmed by MD CLEARY CHARLES ([id number]) on 10/19/2015 12:53:40 PM Procedure Note Ramses Cleary MD - 10/19/2015Format ting of this note might be different from the original. Sinus rhythm Minimal voltage criteria for LVH, may be normal variant Borderline ECG When compared with ECG of 28-JUL-2014 17 :15, No significant change was found Confirmed by MD CLEARY CHARLES ([id number]) on 10/19/2015 12:53:40 PM Ramses Cleary MD EKG Performing Organization Address City/State/ZIP Code Phon e Number [facility] GOLD HOLD TUBE (OR RED/BASS) (10/19/2015 11:12 AM CDT) Patholo gist Method Time Signature Gold Hold Held in [facility] sample rack for 7 days Specimen Anatomical Collection Method Collection Time Receive d Time (Source) Location / / Volume Laterality 10/19/2015 11:12 10/19/2015 AM CDT 11:24 AM CDT Narrative [facility] - 10/19/2015 11:26 AM CDT Performed at [place] at [facility], [address] [place], [place] [id number] Ramses Cleary MD LAB_1 Performing Organization Address [facility] Phon e Number [facility] [phone] (ABNORMAL) LIVER PANEL(HEPATIC FUNCTION PANEL) (10/19/2015 11:12 AM CDT) [facility] Method Time Signature Alkaline 63 38 - 126 [facility] Phosphatase U/L [facility] Bilirubin, 0.5 0.2 - 1.3 [facility] Total mg/dl [facility] Bilirubin, 0.1 0.0 - 0.3 [facility] Direct mg/dl [facility] ALT (SGPT) 47 12 - 78 [facility] U/L [facility] AST (SGOT) 29 0 - 40 [facility] U/L [facility] Protein, Total 7.3 6.3 - 8.2 [facility] g/dl [facility] Albumin 3.6 3.5 - 5.0 [facility] g/dl [facility] A/G Ratio, 1.0 (L) >1.0 [facility] calc. [facility] Bilirubin,Indir 0.4 mg/dl [facility] ect [facility] Specimen Anatomical Collection Method Collection Time Receive d Time (Source) Location / / Volume Laterality 10/19/2015 11:12 10/19/2015 AM CDT 11:24 AM CDT Narrative [facility] - 10/19/2015 1:00 PM C DT Performed at [place] at [facility], [address] [place] [id number] Ramses Cleary MD LAB_1 Performing Organization Address [facility] Phon e Number [facility] [phone] (ABNORMAL) BASIC METABOLIC PANEL (10/19/2015 11:12 AM CDT) [facility] Method Time Signature Sodium 143 135 - 145 [facility] mmol/L [facility] Potassium 4.1 3.5 - 5.3 [facility] mmol/L [facility] Chloride 106 95 - 106 [facility] mmol/L [facility] CO2 27 22 - 30 [facility] mmol/L [facility] Anion Gap 10 7 - 16 [facility] (calc.) mmol/L [facility] Glucose 94 70 - 180 [facility] mg/dl [facility] Calcium 8.3 (L) 8.4 - [facility] 10.2 [facility] mg/dl BUN 19 7 - 20 [facility] mg/dl [facility] Creatinine 1.13 0.66 - [facility] 1.25 [facility] mg/dl GFR, Estimated >60 >60 [facility] ml/min/1. [facility] 73m2 GFR, Est., If >60 >60 [facility] Black ml/min/1. [facility] 73m2 Specimen Anatomical Collection Method Collection Time Receive d Time (Source) Location / / Volume Laterality 10/19/2015 11:12 10/19/2015 AM CDT 11:24 AM CDT Narrative [facility] - 10/19/2015 1:00 PM C DT Performed at [place] [facility], [address] [place] [id number] Ramses Cleary MD LAB_1 Performing Organization Address City/State/ZIP Code Phon e Number [facility] [phone] documented in this encounter Visit Diagnoses Diagnosis Preop examination - Primary Preoperative examination, unspecified Low back pain (HRC) Lumbago Encounter for long-term current use of m edication Chest wall pain Painful respiration documented in this encounter Care Teams Milk Handler Relationship Specialty Start Date End Date Ramses Cleary MD PCP - General Family Practice 10/21/11 documented as of this encounter
--- OUTSIDE RECORDS SUMMARY | 2022-02-24 12:25 | XMS_ITS | Encounter Summary ---
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 Initially found on TURP 2009. Now 5 yrs later stable psa and 3/3 5% One tissue core left apex. Need to see q 6mos with psa and reassure. Called home and cell phone, no answer this am. documented in this encounter Plan of Treatment Not on filedocumented as of this encounter Visit Diagnoses Not on filedocumented in this encounter Care Teams Front Load Trash Truck Driver Relationship Specialty Start Date End Date Ramses Cleary MD PCP - General Family Practice 10/21/11 documented as of this encounter
--- OUTSIDE RECORDS SUMMARY | 2022-02-24 12:25 | XMS_ITS | Encounter Summary ---
:1935 Author Organization [employer] Address [address], [place] [address] Care Team Providers Name Role Phone Ramses Cleary MD Primary Care Provider Unavailable Reason for Visit Auth/Cert Specialty Diagnoses / Procedures Referred By Contact Refer red To Contact Diagnoses lumbar spinal stenosis Procedures FORAMINOTOMY POSTERIOR APPROACH LUMBAR SPINE, Laterality: Left Referral ID Status Reason Start Date Expiration Date Visits Requ ested Visits Authorized [id number] 1 1 Encounter Details Date Type Department Care Team Description 10/29/2015 Surgery LV Operating Room Douglas Mae, L3-4, L4-5 LATERAL [address] Peguero [place] [address] [address] [phone] [place], [place] [address] (Wo rk) Social History [...] Sign Reading Time Taken Comments Blood Pressure 122/65 10/29/2015 9:08 AM CDT Pulse 68 10/29/2015 9:08 AM CDT Temperature 37 ??C (98.6 ??F) 10/29/2015 9:08 AM CDT Respiratory Rate 18 10/29/2015 9:08 AM CDT Oxygen Saturation 97% 10/29/2015 9:08 AM CDT Inhaled Oxygen Concentration - - Weight 107.5 kg (237 lb 1 oz) 10/29/2015 9:08 AM CDT Height 170.2 cm (5' 7) 10/25/2015 1:39 PM CDT Body Mass Index 37.13 10/25/2015 1:39 PM CDT documented in this encounter Discharge Summaries Micki Jeffries, PT - 10/30/2015 12:00 PM CDT [facility] Physical Therapy Discharge Summary Zaid Rutledge Today's [...] Thomas PA-C - 10/30/2015 9:27 AM CDT [facility] Discharge Summary: Spine Admit Date: 10/29/2015 [...] sodium 8.6-50 MG tablet Commonly known as: vondaa SENNA-S,SENNA PLUS Take 1 Tab by mouth [...] weeks NAME: Brian Thomas PA-C PHONE NUMBER: [phone] For information about patient referrals and other discharge orders, please see Discharge Instructions or the Other Orders tab in Chart Review. --End of Report-- documented in this encounter Discharge Instructions Discharge Arcelia Bailey RN - 10/30/2015 11:23 AM CDT Contact Information [address] [address] Main or [phone] Same Day Surgery, M-F 7am to 5pm: [phone] Clinic Phone Numbers [facility] [phone] [facility] Orthopedics [phone] Emergency & Urgently Needed Care: For emergencies call 911 and/or get medical help right away. If you are a [facility] member and have medical needs after clinic hours you may call the [facility] [phone] or . Healthy Habits - Move! Aim [...] moderation - Choose healthy sources of fat: Lillian, peanut or canola oils, 1/4 cup nuts [...] doctor/pharmacist if it is safe to take vhig-pvu-mryurir drugs or herbs with your prescribed medicine. [...] further assistance after your discharge, please contact [phone] or visit [email or web address] can offer further [...] WOUND IS COMPLETELY HEALED AND OK'D BY MD. Steri-strips, will fall off themselves Information given on: Treatment, diagnosis, surgery Pain Medications: Keep a journal/record of when you take your pain medications Do not take on an empty stomach; take with a meal or a small snack Take an fieu-dzb-kamfsad stool softener while taking narcotics (ex: Senna, [...] Follow-up appointment with Dr. Mae or physician project construction assistant manager in 2 weeks. We hope you had a positive experience and that you can definitely recommend [facility] to your family and friends. AttachmentsThe following attachments cannot be sent through Care Everywhere. LUMBAR LAMINECTOMY FOR SPINAL STENOSIS: POST-OP (TURKISH)documented in this encounter Medications at Time of [...] home health clinician.] fluticasone (AKA Place 1 Sealy into 0 08/03/2013 FLONASE) 50 MCG/ACT both [...] Thomas PA-C - 10/30/2015 9:26 AM CDT [facility] Orthopedics Spine Progress Note - Lumbar Post-operative [...] Yost MD - 10/29/2015 9:33 AM CDT [facility] Interval History and Physical Note The [...] surgery on 10/29/[address] Pierre at [facility]. Pertinent history: Has been having back pain. [...] Cardiac risk factor assessment: heart disease history (LA, angina, CABG, coronary stent)? no History of [...] risk assessment Preoperative cardiac evaluation algorithm from [facility] Electronically Signed By: Ramses Cleary MD 10/19/2015, 1:02 PM CC: documented in this encounter Procedure Notes Douglas Mae MD - 10/29/2015 11:58 AM CDT [facility] Brief Orthopaedic Operative Note Surgery Date: 10/29/2015 [...] operative microscopy. ATTENDING SURGEON: Douglas Mae MD DIRECTOR GAME: Mahin Dimas PA-C. Please note this procedure technically required an project construction assistant manager for the safety of the patient. Mr. [...] Dictated: 10/29/2015 14:56:53 Transcribed: 10/29/2015 15:34:54 Job: [id number] Doc: [id number] cc: documented in this encounter OR Notes H&P - Douglas Mae MD - 10/29/2015 9:50 AM CDT H&P reviewed. No new changes. documented in this encounter Plan of Treatment Scheduled Referrals Name Type Priority Associated Diagnoses Order S chedule Spine-Surgical Referral Routine ONCE for 1 Oc currences Consult-Adults starting 10/13 until 10/29/2015 Uzmab-Eqdmxtkw-Jixgs Referral Routine Ordered : 10/30/2015 s documented [...] Douglas Mae MD LAB_1 Performing Organization Address City/[facility]/ZIP Code Phon e Number [address] [address] HEMATOCRIT, BLOOD (10/29/2015 3:32 PM CDT) athologist Signature HCT 44.1 41.0 - 53.0 [facility] Specimen Anatomical Collection Method Collection Time Receive d Time (Source) Location / / Volume Laterality 10/29/2015 3:32 PM 6 3:33 CDT PM CDT [facility] - 10/29/2015 3:46 PM CD T Performed at [facility], [address] [place] [address] Douglas Mae MD LAB_1 Performing Organization Address City/[facility]/ZIP Code Phon e Number [address] [address] HEMOGLOBIN, BLOOD (10/29/2015 3:32 PM CDT) athologist Signature Hemoglobin 14.7 13.5 - 17.5 [facility] Specimen Anatomical Collection Method Collection Time Receive d Time (Source) Location / / Volume Laterality 10/29/2015 3:32 PM 6 3:33 CDT PM CDT [facility] - 10/29/2015 3:46 PM CD T Performed at [facility], [address] [place], [place] [id number] Douglas Mae MD LAB_1 Performing Organization Address City/State/ZIP Code Phon e Number [address] [address] XR C-ARM 1.5-2 HOURS (10/29/2015 12:19 PM [...] athologist Signature WBC 5.3 4.0 - 11.0 [facility] RBC 4.83 4.5 - 5.9 [facility] Hemoglobin 15.2 13.5 - 17.5 [facility] HCT 46.0 41.0 - 53.0 [facility] MCV 95.2 80 - 100 fl [facility] MCH 31.5 26 - 34 pg [facility] MCHC 33.0 32 - 36 [facility]/dl [facility] RDW 13.2 11.5 - 14.5 [facility] Platelets 160 150 - 450 [facility] MPV 9.7 6.5 - 11.0 [facility] Specimen Anatomical Collection Method Collection Time Receive d Time (Source) Location / / Volume Laterality 10/29/2015 9:09 AM 6 9:14 CDT AM CDT [facility] - 10/29/2015 9:18 AM CD T Performed at [facility], [address] [place] [address] Mahin Dimas PA-C LAB_1 Performing Organization Address City/State/ZIP Code Phon e Number [phone] [phone] documented in this encounter Visit Diagnoses Diagnosis Lumbar spinal stenosis Spinal stenosis, lumbar region, without neurogenic claudication Plan of Care - Arcelia Elias RN - 10/30/2015 1:21 PM CDT [facility] Discharge Note - Nursing Admission Date/Time: 10/29/2015 8:13 AM Attending MD: Douglas Mae MD Discharge Criteria:NONE Patient discharged: to Home. Discharge Date: 10/30/2015 Discharge Time: 131 Patient accompanied by: spouse. Transported by: Wheelchair [...] appropriate. Charges adequately reflected session. Plan of Care - Charley Friedman - 10/30/2015 9:53 AM [...] 9:55 AM Plan of Care - Eric Corral, RN - 10/30/2015 6:57 AM CDT [facility] Plan of Care Note Assessment: Pain controlled with Oxycodone and Tylenol. HR regular, LSC, +BS, +BM, voiding well (self cath's). Ambulated little traverse x2 with SBA Plan: Discharge to home today Plan of Care - Arabella Antunez RN - 10/29/2015 8:57 PM CDT [facility] Progress Note (Nursing) Assessment: Patient had an [...] Wooten RN - 10/29/2015 1:39 PM CDT [facility] Nursing Post-Op Note Admission Date/Time: 10/29/2015 8:13 [...] of Report --- documented in this encounter Active and Recently Administered Medications Times are shown in CDT. Scheduled Medication Order 10/28/2015 10/29/2015 10/30/2015 allopurinol (aka ZYLOPRIM) tablet 100 mg (CANCELED) 0858 (Given - Provider: Arcelia Elias, EULOGIO) 100 mg, Oral, DAILY, First dose on Thu10/30/15 at 0800, Until Di scontinued aluminum-magnesium hydroxide-simethicone (aka MAALOX) 200-200-20 MG/5ML oral liquid 30 mL (COMPLETED) 2230 (Given - Provider: Arabella ching, RN) 30 mL, Oral, ONCE, On Thu10/29/15 at 2245, For 1 dose, For gastr ic distress bacitracin 100,000 Units, gentamicin 1,0 00 mg, polymyxin B 1,000,000 Units in NaCl 0.9 % 1,000 mL irrigation (COMPLETED) 1147 (Given - Provider: Keyana Torrez, EULOGIO) INTRA-OP, 1 dose, Starting Thu10/29/15 at 0819, Until Discontinu ed budesonide-formoterol (aka SYMBICORT) 160-4.5 MCG/ACT inhaler 2 Puff (CANCELED) 2020 (Given - Provider: Arabella Antunez RN) 0858 (Giv en - Provider: Arcelia Elias RN) 2 Puff, Inhalation, BID, First dose on Thu10/29/15 at 2000, Until Discontinued bupivacaine 0.25% (PF) 0.25 % injection SOLN (COMPLETED) 1157 (Given - Provider: Keyana Torrez RN) INTRA-OP, 1 dose, Starting Thu10/29/15 at 0819, Until Discontinu ed ceFAZolin (aka ANCEF) 2 g in dextrose 100 ml IVPB (COMPLETED ) 1839 (Started - Provider: Arabella Antunez RN)1909 (Infused - Provider: Arabella Antunez RN) 0224 (Started - Provider: Eric Corral RN)0254 (Infused - Provider: Eric Corral RN) 2 g, Intravenous, Q8H (NON-STND), 2 dose s, First dose on Thu10/29/15 at 1830, Last dose on Thu10/30/15 at 0230, Post-op ceFAZolin (aka ANCEF) 2 g (CANCELED) 102 5 (Started - Provider: Valerie Pinon APRN, TOOLROOM ATTENDANT) 2 g, Intravenous, ONCE (NON-SCHEDULED), Starting Thu10/29/15 at 0747, Until Discontinued, Pre-op dorzolamide (aka TRUSOPT) 2 % eye drops 1 Drop (CANCELED) 2020 (Given - Provider: Arabella Antunez RN) 0858 (Given - Provider: Arcelia Elias RN) 1 Drop, Both Eyes, BID, First dose on Thu10/29/15 at 2000, Until Discontinued fluticasone (aka FLONASE) 50 MCG/ACT nasal spray 2 Sealy (CANCEL ED) 0855 (Given - Provider: Arcelia Elias RN) 2 Sealy, Both Nostrils, BID, First dose on Thu10/30/15 [...] MAGNESIA) oral liquid 10 mL (CA NCELED) 857 (Given - Provider: Arcelia Elias RN) 10 [...] 1g. Gelfoam Powder) INTRA-OP, 1 dose, Starting 10/29/15 at 0819, Until Discontinu ed Continuous Medication Order 10/28/2015 10/29/2015 10/30/2015 lactated ringers infusion 1,000 mL (CANCELED) 0945 (Started - Provider: Kam Acosta RN)1045 (Started - Provider: Valerie Pinon APRN, CHINYERE)1218 (Infused - Provider: Valeire Pinon APRN, CHINYERE) 1,000 mL, at 25 mL/hr, Intravenous, CONT INUOUS, Starting 10/29/15 at 1030, Until Discontinued, Pre-op NaCl 0.45%-KCl 20 mEq/liter infusion 1,000 mL (CANCELED) 1357 (Started - Provider: Oliver Wooten RN) 0922 (Stopped - Provider: Arcelia lara RN) [...] mg (CANCELED) 1257 (Given - Provider: Eagle Luong, EULOGIO) 0.5 mg, Intravenous, M1EVNVYM, Starting 10/29/15 at 1217, Until Discontinued, Pain, PACU (only) oxyCODONE (aka ROXICODONE) tablet 5-10 mg (CANCELED) 1350 (Given - Provider: Oliver Wooten, RN)1802 (Given - Provider: Arabella Antunez, RN)2230 (Given - Provider: Arabella Antunez RN) 0224 (Given - Provider: Eric Corral, EULOGIO)0621 (Given - Provider: Eric Corral RN)1023 (Given - Provider: Arcelia Elias RN) 5-10 mg, Oral, PRN PER PARAMETERS, Start ing 10/29/15 at 1321, Until Discontinued, Pain, 1 tablet for moderate pain, 2 tablets for severe pain.?See Admin Instructions, Post-op temazepam (aka RESTORIL) capsule 15 mg (CANCELED) 2230 (Given - Provider: Arabella Antunez RN) 15 mg, Oral, HS PRN, Starting Mon 6 at 1321, Until Discontinued, Sleep, Post-op documented in this encounter Care Teams President Relationship Specialty Start Date End Date Ramses Cleary MD PCP - General Family Practice 10/21/11 documented as of this encounter
--- OUTSIDE RECORDS SUMMARY | 2022-02-24 12:25 | XMS_ITS | Encounter Summary ---
:1935 Author Organization [facility] Address [address], [place] [address] Care Team Providers Name Role Phone Ramses Cleary MD Primary Care Provider Unavailable Reason for Visit Reason Comments Prostate Cancer 6 month f/u PSA 6.95 done 07/20/15 Encounter Details Date Type Department Care Team Description 07/24/2015 Office Visit [facility] Waqas Rodney evated prostate Beatriz Griffith MD specific antigen [facility] [address] (PSA) (Primary Dx) [address] [place] [address] [place], [place] [phone] Social History Tobacco Use Types Packs/Day Years [...] Sign Reading Time Taken Comments Blood Pressure 136/62 07/24/2015 8:48 AM BEHAVIORAL TECHNICIAN Pulse - - Temperature - - Respiratory Rate - - Oxygen Saturation - - Inhaled Oxygen Concentration - - Weight - - Height - - Body Mass Index - - documented in this encounter Patient Instructions Patient InstructionsStWaqas haynes MD - 07/24/2015 8:56 AM CST Patient Name: ZAID RUTLEDGE Taken: [...] left apex, needle biopsy - 1. 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 1 of 3 needle cores positive 3. 5% tissue involvement 4. Perineural invasion not identified A: Low risk prostate cancer. He has a approximate 10 year life expectancy based on longevity in his overall health. Low risk prostate cancer based on biopsy, a type and volume that is clinically innocous. PSA has risen, but this is a fluctuating test and one result does not carry alot of significance. P: Continue the catheterization schedule. Does not need to record, he is doing really well overall. Will check psa in 3mos. If psa still rising, could repeat biopsy to see if there is a volume change,or consider other imaging such as MRI and discuss other therapies for prostate cancer (not surgical). VIORAL TECHNICIAN documented in this encounter Progress Notes Waqas Rodney MD - 07/24/2015 8:56 AM CST Patient Name: ZAID RUTLEDGE Taken: [...] left apex, needle biopsy - 1. Adenocarcinoma, [place] grade 3 + 3 (score 3) 2. 1 of 3 needle cores positive 3. 5% tissue involvement 4. Perineural invasion not identified S: I am seeing Zaid for recheck of his active surveillance prostate cancer and chronic urinary retention. He is on SIC and doing well with PVR about 400cc at 5 times a day. He keeps meticulous records. Recently had biopsy He had a transurethral resection of the prostate that showed T1 adenocarcinoma of the prostate in 2009 3-4 months later underwent a biopsy that showed a low risk Maryellen score 3+3 from the right base 1percent [...] medications have been prescribed. O: Filed Vitals: BP: Alert and oriented and good spirits. No rashes on the face or trunk. No gynecomastia, no flank masses. Abdomen and flank soft, no rebound or masses. No inguinal masses or hernia. Testis benign, descended. Urethral meatus normal, no peyronies plaques. Anal tone normal, no rectal masses, prostate benignand symmetric. Other tests: Prostate-specific antigen up to 6.95 A: Low risk prostate cancer. He has a approximate 10 year life expectancy based on longevity in his overall health. Low risk prostate cancer based on biopsy, a type and volume that is clinically innoucous. PSA has risen, but this is a fluctuating test and one result does not carry alot of significance. P: Continue the catheterization schedule. Does not need to record, he is doing really well overall. Will check psa in 3mos. If psa still rising, could discuss other therapies for prostate cancer (not surgical). VIORAL TECHNICIAN documented in this encounter Plan of Treatment Not on filedocumented as of this encounter Visit Diagnoses Diagnosis Elevated prostate specific antigen (PSA) - Primary documented in this encounter Care Teams Wind Turbine Design Engineer Relationship Specialty Start Date End Date Ramses Cleary MD PCP - General Family Practice 10/21/11 documented as of this encounter
--- OUTSIDE RECORDS SUMMARY | 2022-02-24 12:25 | XMS_ITS | Encounter Summary ---
:1935 Author Organization [facility] Address [address], [place] [address] Care Team Providers Name Role Phone Ramses Cleary MD Primary Care Provider Unavailable Reason for Visit Reason Onset Date Comments Surgery, Jitendracel 10/17/2014 NEEDS TO RESCHEDULE PROCEDURE Encounter Details Date Type Department Care Team Description 10/17/[address] [facility] [facility] Waqas Rodney Cancel (NEEDS Beatriz Griffith MD TO RESCHEDULE [facility] [address] PROCEDURE) [address] [place] [address] [place], [place] [phone] Social History Tobacco Use Types Packs/Day Years [...] encounter Nursing Notes Deepika Arellano, RN - 10/18/2014 8:14 AM CDT Placed phone call to patient and spoke with Corie. Corie states that the patient wanted to reschedule his procedure and was able to do that. Patient is now scheduled for 10-21-2014. Deepika Arellano RN 10/18/2014, 8:14 AM Jael Blair - 10/17/2014 3:46 PM CDT Reason for call? Patient calling to reschedule his procedure that is now on 10-24-[address] Rodney. Please call. Best time to reach you? anytime Ok to leave a detailed message? yes Jael Blair ....................................10/17/2014 3:46 PM documented in this encounter Plan of Treatment Not on filedocumented as of this encounter Visit Diagnoses Not on filedocumented in this encounter Care Teams Buggy Ladle Tender Relationship Specialty Start Date End Date Ramses Cleary MD PCP - General Family Practice 10/21/11 documented as of this encounter
--- OUTSIDE RECORDS SUMMARY | 2022-02-24 12:25 | XMS_ITS | Encounter Summary ---
:1935 Author Organization [employer] Address [address] [address] Care Team Providers Name Role Phone Ramses Cleary MD Primary Care Provider Unavailable Reason for Visit Procedure/Equipment (Routine) - Closed Specialty Diagnoses / Procedures Referred By Contact Refer red To Contact Radiology [place] Procedures Lida Dinero, Lv Radiology CT NECK SOFT TISSUE [address] [place] [address] WITH CONTRAST [address] [place] [address] [place] [address] Referral ID Status Reason Start Date Expiration Date Visits Requ ested Visits Authorized [id number] Closed 07/17/2015 1 1 Encounter Details Date Type Department Care Team Description 07/17/2015 Imaging [facility] Ra diology CT [address] [place] [address] Social History Tobacco Use Types Packs/Day Years [...] Re sults for this W IV CONT [facility] procedure are i n the results section. documented in this encounter Results CT NECK SOFT TISSUE WITH CONTRAST (07/17/2015 1:37 PM [facility]) Anatomical Region Laterality Modality Neck, C-Spine, Spine, Vascular Computed Tomography Specimen (Source) Anatomical Collection Method Collection Time Re ceived Time Location / / Volume Laterality 07/17/2015 1:37 PM [facility] Narrative 07/17/2015 1:59 PM [facility] CT NECK SOFT TISSUE W CONT 07/17/2015 [...] without di screte mass. The parapharyngeal and building inspection engineer spaces are unremarkable. The oral cavity is [...] note might be different from the original. CT NECK SOFT TISSUE W CONT 07/17/2015 [...] without di screte mass. The parapharyngeal and building inspection engineer spaces are unremarkable. The oral cavity is [...] lymph nodes. Lida Dinero MD RAD CT documented in this encounter Visit Diagnoses Not on filedocumented in this encounter Care Teams Aluminum Fabrication Supervisor Relationship Specialty Start Date End Date Ramses Cleary MD PCP - General Family Practice 10/21/11 documented as of this encounter
--- OUTSIDE RECORDS SUMMARY | 2022-02-24 12:25 | XMS_ITS | Encounter Summary ---
:1935 Author Organization [facility] Address [address], [place] [address] Care Team Providers Name Role Phone Ramses Cleary MD Primary Care Provider Unavailable Reason for Visit Reason Comments Elevated PSA PSA 5.7 done 10/19/15 Encounter Details Date Type Department Care Team Description 10/23/[address] [facility] Waqas Rodney evated prostate [place] Edson Griffith MD specific antigen [facility] [address] (PSA) (Primary Dx) [address] [place] [address] [place], [place] [phone] Social History Tobacco Use Types Packs/Day Years [...] Sign Reading Time Taken Comments Blood Pressure 142/78 10/23/2015 10:08 AM CDT Pulse - - Temperature - - Respiratory Rate - - Oxygen Saturation - - Inhaled Oxygen Concentration - - Weight - - Height - - Body Mass Index - - documented in this encounter Patient Instructions Patient InstructionsStWaqas haynes MD - 10/23/2015 10:32 AM CDT : Low risk prostate cancer. Last biopsy confirmed. On SIC for weak bladder. P: twice yearly PSA for now. No biopsy at this point as PSA stable. Continue Cathing Use care with back surgery. The safest would be to have a marie in for a day or so and then he couldsafely SIC. : (NOTE) Surgical Final Report Patient Name: ZAID RUTLEDGE Taken: 10/31/2014 Received: [...] left apex, needle biopsy - 1. Adenocarcinoma, [place] grade 3 + 3 (score 3) 2. 1 of 3 needle cores positive 3. 5% tissue involvement 4. Perineural invasion not identified Other tests: PVR 350-400 on average TID SIC, A: Low risk prostate cancer. No progression with PSA stable and decreasing. Last biopsy confirmed slow growing, low volume. On SIC for weak bladder. P: twice yearly PSA for now. No biopsy at this point as PSA stable. Having back surgery. Maybe could SIC before and after. But if longer surgery and sedated after may need catheter or have nurses do cathing temporarily. We dont want him to go much longer than 4-5 hrs between cathing. documented in this encounter Progress Notes Waqas Rodney MD - 10/23/2015 10:20 AM CDT Date of Service: 10/23/2015 S: This patient returns for recheck of his LUTS And low risk prostate cancer. Having back surgery soon. . Since the last visit there has been no other significant problems. There is no fever, significant weight loss or rash. No new urologic medications have been prescribed. No complaints of urinary leakage, hematuria, UTI's. No rashes of the ext genitalia. No intervention by other caregiver for problem. No change in sexual function. O: Filed Vitals: 10/23/15 1008 BP: 142/78 Alert and oriented and good spirits. No rashes on the face or trunk. No gynecomastia, no flank masses. Abdomen and flank soft, no rebound or masses. No inguinal masses or hernia. Testis benign, descended. Urethral meatus normal, no peyronies plaques. Anal tone normal, no rectal masses, prostate benign and symmetric with some nodularity. Other tests: PVR 350-400 on average TID SIC, A: Low risk prostate cancer. No progression with PSA stable and decreasing. Last biopsy confirmed slow growing, low volume. On SIC for weak bladder. P: twice yearly PSA for now. No biopsy at this point as PSA stable. Having back surgery. Maybe could SIC before and after. But if longer surgery and sedated after may need catheter or have nurses do cathing temporarily. We dont want him to go much longer than 4-5 hrs between cathing. (Please note this document was prepared with voice recognition software likely resulting in unintentional word substitutions. Please contact me if clarification is needed.) documented in this encounter Plan of Treatment Not on filedocumented as of this encounter Results (ABNORMAL) PROSTATIC SPECIFIC ANTIGEN (F/U) (04/18/2016 10:30 AM CDT) [facility] gist Method Time Signature Prostatic Spec 6.4 (H) 0.0 - 4.0 [facility] ng/ml [facility] Specimen Anatomical Collection Method Collection Time Receive d Time (Source) Location / / Volume Laterality 04/18/2016 10:30 04/18/2016 AM CDT 10:43 AM CDT Narrative [facility] - 04/18/2016 11:44 AM CDT Performed at [facility], [address] [place] [address] Waqas Rodney MD LAB_1 Performing Organization Address City/[facility] Phon e Number [facility] [phone] (ABNORMAL) PROSTATIC SPECIFIC ANTIGEN (F/U) (10/19/2015 11:12 AM CDT) [facility] gist Method Time Signature Prostatic Spec 5.7 (H) 0.00 - [facility] Ag 4.00 ng/ml LABORATORIES Specimen Anatomical Collection Method Collection Time Receive d Time (Source) Location / / Volume Laterality 10/19/2015 11:12 10/19/2015 AM CDT 11:25 AM CDT Narrative [facility] - 10/19/2015 2:36 PM C DT Performed at [facility], [address] [place] [address] Waqas Rodney MD LAB_1 Performing Organization Address City/[facility] Phon e Number [facility] [phone] documented in this encounter Visit Diagnoses Diagnosis Elevated prostate specific antigen (PSA) Elevated prostate specific antigen (PSA) - Primary Elevated prostate specific antigen (PSA) documented in this encounter Care Teams Dress Marker Relationship Specialty Start Date End Date Ramses Cleary MD PCP - General Family Practice 10/21/11 documented as of this encounter
--- OUTSIDE RECORDS SUMMARY | 2022-02-24 12:25 | XMS_ITS | Encounter Summary ---
:1935 Author Organization [facility] Address [address] [address] Care Team Providers Name Role Phone Ramses Cleary MD Primary Care Provider Unavailable Reason for Visit Reason Onset Date Comments Refill 07/04/2015 Encounter Details Date Type Department Care Team Description 07/04/2015 Refill [facility] [place]ael Madrid MD Refill [facility] [address] [place] [address] [place] [address] [phone] Social History Tobacco Use Types Packs/Day Years [...] on filedocumented in this encounter Care Teams Personal Caregiver Relationship Specialty Start Date End Date Ramses Cleary MD PCP - General Family Practice 10/21/11 documented as of this encounter
--- OUTSIDE RECORDS SUMMARY | 2022-02-24 12:25 | XMS_ITS | Encounter Summary ---
:1935 Author Organization [facility] Address [address], [place] [address] Care Team Providers Name Role Phone Ramses Cleary MD Primary Care Provider Unavailable Reason for Visit Reason Comments Hearing Aid Encounter Details Date Type Department Care Team Description 11/14/2014 Office Visit [facility] Isidoro Neural hearing loss, [facility] MICHAEL Roach bilateral (Primary [facility] Center Dx) [address] [place] [phone] Social History Tobacco Use Types Packs/Day Years [...] documented as of this encounter Progress Notes Mala Chaudhry AU.D. - 11/14/2014 4:45 PM CDT Zaid Rutledge was seen for hearing aid check. Otoscopic evaluation revealed the right ear was half occluded with cerumen, left ear one quarter occluded Both ears were completely cleared He brought in two sets of hearing instruments and one single instrument to be cleaned and checked. His current set of hearing instruments were cleaned and checked Tubing was changed to right and left Com Tube Building Machine Operator was paired to his new cell phone Compound palate tested with new pairing and was successful His backup hearing aids were cleaned and checked right and left Tubing was changed right and left His single instrument, second backup aid was cleaned and checked Tubing was changed Recheck is scheduled MICHAEL Nicolas documented in this encounter Plan of Treatment Not on filedocumented as of this encounter Visit Diagnoses Diagnosis Neural hearing loss, bilateral - Primary documented in this encounter Care Teams Athletic Gear Custodian Relationship Specialty Start Date End Date Ramses Cleary MD PCP - General Family Practice 10/21/11 documented as of this encounter
--- OUTSIDE RECORDS SUMMARY | 2022-02-24 12:25 | XMS_ITS | Encounter Summary ---
:1935 Author Organization [facility] Address [address], [place] [address] Care Team Providers Name Role Phone Ramses Cleary MD Primary Care Provider Unavailable Reason for Visit Reason Comments Refill allopurinol Encounter Details Date Type Department Care Team Description 08/01/2015 Refill [facility] Ramses Cleary, Refill (allopurinol) [facility] anjelica MURRAY [address] [place] [address] [address] [phone] [place] [address] Social History Tobacco Use Types Packs/Day Years [...] encounter Nursing Notes Shauna Dawson RN - 08/01/2015 4:08 PM CST Medication(s) approved by RN per Refill Protocol/Standing Order Shauna Dawson RN 08/01/2015, 4:08 PM NG ENGINEER Interface, Out Surescripts Prov Query - 08/01/2015 12:56 PM CST allopurinol (AKA ZYLOPRIM) 100 MG tablet [Pharmacy Med Name: ALLOPURINOL 100MG TABLETS] - REFILL: 3 months - PROTOCOL: Endocrinology: Gout Agents - Allopurinol - RATIONALE: This refill should last until the patient is due for a(n) ALT check. - LAST QUALIFYING VISIT IN FAMILY PRACTICE: 06/04/2015 - NEXT SCHEDULED VISIT: None - LAST REFILLED ON: 08/14/2014, QTY: 90, Refills: 3, Sig: take 1 tablet by mouth daily (unchanged) - Cr: 1.24mg/dL on 07/17/2015 - ALT: 68.0U/L on 09/20/2014 - HGB: 15.7g/dL on 07/17/2015 - HCT: 46.5% on 07/17/2015 - [age] - PLT: 164.0k/cmm on 07/17/2015 - RBC: 4.98m/cmm on 07/17/2015 - RDW: 14.0% on 07/17/2015 - WBC: 6.4k/cmm on 07/17/2015 Powered by [employer], Reference: [id number], 08/01/2015 12:56:16 PM MIXING ENGINEER, Pool: SMG REFILL RN ([id number]) NG ENGINEER documented in this encounter Plan of Treatment Not on filedocumented as of this encounter Visit Diagnoses Not on filedocumented in this encounter Care Teams Health Professor Relationship Specialty Start Date End Date Ramses Cleary MD PCP - General Family Practice 10/21/11 documented as of this encounter
--- OUTSIDE RECORDS SUMMARY | 2022-02-24 12:26 | XMS_ITS | Encounter Summary ---
:1935 Author Organization [facility] Address [address] [address] Care Team Providers Name Role Phone Ramses Cleary MD Primary Care Provider Unavailable Reason for Visit Reason Onset Date Comments QUESTIONS, GENERAL 07/28/2013 Encounter Details Date Type Department Care Team Description 07/28/2013 Telephone [facility] JIGNA Blanton ONS, GENERAL [facility] Maddy Griffith, IMITATION MARBLE MECHANIC, [address] [place] [phone] [facility] [phone] [place] [address] Social History Tobacco Use Types Packs/Day Years [...] as of this encounter Nursing Notes Michaela Minor RN - 07/29/2013 9:00 AM CST Patient's informed and verbalizes understanding. Patient is requesting copied of dictated results. Sent to patient via mail.Michaela Minor RN 07/29/2013, 9:00 AM PLANER Maddy Blanton APRN, MARTI - 07/29/2013 8:46 AM CST Please inform pt results of CT are normal. He should follow up as recommended 6- 8 weeks after initial visit 07/01/13 Maddy Blanton NP 07/29/2013, 8:47 AM PLANER Cristina Souza RN - 07/28/2013 3:54 PM CST Maddy, Pt and looking for results of recent CT of Chest. Cristina Souza RN 07/28/2013, 3:55 PM PLANER Javan Hamlin - 07/28/2013 3:28 PM CST Reason for call? Patient is calling to get MRI results. Please call. Best time to reach you? anytime Ok to leave a detailed message? yes Javan Hamlin ....................................07/28/2013 3:28 PM PLANER documented in this encounter Plan of Treatment Not on filedocumented as of this encounter Visit Diagnoses Not on filedocumented in this encounter Care Teams Nail Mill Worker Relationship Specialty Start Date End Date Ramses Cleary MD PCP - General Family Practice 10/21/11 documented as of this encounter
--- OUTSIDE RECORDS SUMMARY | 2022-02-24 12:26 | XMS_ITS | Encounter Summary ---
:1935 Author Organization [facility] Address [address] [address] Care Team Providers Name Role Phone Ramses Cleary MD Primary Care Provider Unavailable Reason for Visit Reason Comments WRIST PAIN lt wrist bruised and painful for 5 days no injury Encounter Details Date Type Department Care Team Description 05/09/2014 Office Visit [facility] Ramses Cleary (Primary [facility] MD Umberto Dx) Practice [address] [place] [address] [place], [place] [phone] Social History Tobacco Use Types Packs/Day Years [...] Reading Time Taken Comments Blood Pressure 120/70 05/09/2014 3:48 PM INSPECTOR BRAKE LINING Pulse 66 05/09/2014 3:48 PM INSPECTOR BRAKE LINING Temperature 36.5 ??C (97.7 ??F) 05/09/2014 3:48 PM INSPECTOR BRAKE LINING Respiratory Rate 18 05/09/2014 3:48 PM INSPECTOR BRAKE LINING Oxygen Saturation 96% 05/09/2014 3:48 PM INSPECTOR BRAKE LINING Inhaled Oxygen Concentration - - Weight 108.9 kg (240 lb) 05/09/2014 3:48 PM INSPECTOR BRAKE LINING Height 175.3 cm (5' 9) 05/09/2014 3:48 PM INSPECTOR BRAKE LINING Body Mass Index 35.44 05/09/2014 3:48 PM INSPECTOR BRAKE LINING documented in this encounter Progress Notes Ramses Cleary MD - 05/10/2014 6:49 AM CST Zaid Rutledge is a 79 yr male who presents today with a chief complaint of pain in his left wrist. Hehas felt a swelling for 5 days. It is tender. He has had a bruise. He had been lifting some firewood. He does not recall a specific injury. He was concerned about a blood clot. Patient Active Problem List Diagnosis ??? SPINAL STENOSIS, LUMBAR REGION, WITHOUT NEUROGENIC CLAUDICATION ??? LUMBAGO ??? NEURALGIA, NEURITIS, AND RADICULITIS, UNSPECIFIED ??? ALLERGIC RHINITIS, CAUSE UNSPECIFIED ??? DROWNING AND NONFATAL SUBMERSION ??? BLADDER NECK OBSTRUCTION ??? PRIMARY LOCALIZED OSTEOARTHROSIS, OTHER SPECIFIED SITES ??? IRRITABLE BOWEL SYNDROME ??? UNSPECIFIED ASTHMA ??? ESOPHAGEAL REFLUX ??? ELEVATED PROSTATE SPECIFIC ANTIGEN (PSA) ??? PRIMARY PROSTATE ADENOCARCINOMA ??? PROSTATE CANCER ??? POLYP OF NASAL CAVITY ??? NEURAL HEARING LOSS, BILATERAL ??? DYSPHAGIA ??? GOUT ??? GLAUCOMA ??? ORCHITIS AND EPIDIDYMITIS, UNSPECIFIED ??? GERD (GASTROESOPHAGEAL REFLUX DISEASE) Current Outpatient Prescriptions Medication Sig ??? acetaminophen (AKA TYLENOL EXTRA STRENGTH) 500 MG tablet Take 1,000 mg by mouth two times a day. ??? ALBUterol sulfate hfa 108 (90 BASE) MCG/ACT inhaler Inhale 2 Puffs by mouth every 4 hours as needed for Wheezing. ??? allopurinol (AKA ZYLOPRIM) 100 MG tablet Take 1 Tab by mouth daily. ??? budesonide-formoterol (SYMBICORT) 160-4.5 MCG/ACT inhaler Inhale 2 Puffs by mouth two times a day. ??? dorzolamide (AKA TRUSOPT) 2 % eye [...] ??? omeprazole (AKA PRILOSEC) 20 MG capsule Take 1 Cap by mouth two times a day. Take 1 hour before a meal. OBJECTIVE: BP 120/70 Pulse 66 Temp(Src) 97.7 ??F (36.5 ??C) (Oral) Resp 18 Ht 5' 9 (1.753 m) Wt 240 lb (108.863 kg) BMI 35.43 kg/m2 SpO2 96% EXAM: Alert oriented NAD There is a bruise of his left distal forearm. Small swelling with possible hematoma. The bruise is turning greenish so is resolving. Mild tenderness. His wrist and fingers have full ROM Assessment: 1. Contusion PLAN: The wrist will be treated with warm packs. Use acetaminophen for pain control Recheck if not improving in the next 2 weeks. Ramses Cleary MD ECTOR BRAKE LINING documented in this encounter Plan of Treatment Not on filedocumented as of this encounter Visit Diagnoses Diagnosis Contusion - Primary Contusion of unspecified site documented in this encounter Care Teams Cooper Apprentice Relationship Specialty Start Date End Date Ramses Cleary MD PCP - General Family Practice 10/21/11 documented as of this encounter
--- OUTSIDE RECORDS SUMMARY | 2022-02-24 12:26 | XMS_ITS | Encounter Summary ---
:1935 Author Organization [facility] Address [address], [place] [address] Care Team Providers Name Role Phone Ramses Cleary MD Primary Care Provider Unavailable Reason for Visit Reason Comments Follow-up, NOS Encounter Details Date Type Department Care Team Description 07/31/2014 Office Visit [facility] Darwin Mcfarland Vasov agal reaction [facility], DO (Primary Dx) Medicine [address] [place] [place] [address] [place], [place] [phone] [address] Social History Tobacco Use Types Packs/Day Years [...] Sign Reading Time Taken Comments Blood Pressure 146/82 07/31/2014 3:46 PM APPLICATION DEVELOPMENT LIAISON Pulse 68 07/31/2014 3:44 PM APPLICATION DEVELOPMENT LIAISON Temperature 36.3 ??C (97.4 ??F) 07/31/2014 3:44 PM APPLICATION DEVELOPMENT LIAISON Respiratory Rate 16 07/31/2014 3:44 PM APPLICATION DEVELOPMENT LIAISON Oxygen Saturation - - Inhaled Oxygen Concentration - - Weight 106.6 kg (235 lb) 07/31/2014 3:44 PM APPLICATION DEVELOPMENT LIAISON Height 174 cm (5' 8.5) 07/31/2014 3:44 PM APPLICATION DEVELOPMENT LIAISON Body Mass Index 35.21 07/31/2014 3:44 PM APPLICATION DEVELOPMENT LIAISON documented in this encounter Patient Instructions Patient InstructionsGracia Adler LPN - 07/31/2014 3:42 PM CST Zaid Rutledge was offered Online Patient Services and does not want to sign up and register at this time. Gracia Adler LPN 07/31/2014, 3:43 PM Overall your labs looked good I would follow matters over the next few weeks Darwin Mcfarland, 07/31/2014, 4:37 PM Good blood counts-- 07/28/14 5:30 PM 02/27/11 5:09 PM 12/28/09 11:09 AM WBC 4.0 - 11.0 k/ul 6.5 7.4R 4.8R RBC 4.5 - 5.9 M/ul 5.22 4.90R 4.94R HGB 13.5 - 17.5 g/dl 16.5 15.9R 15.8R HCT 41.0 - 53.0 % 47.6 45.9R 45.6R MCV 80 - 100 fl 91.1 94R 92R MCH 26 - 34 pg 31.6 32.5R 32.1R MCHC 32 - 36 g/dl 34.7 34.7R 34.7R RDW 11.5 - 14.5 % 12.9 13.1R 12.9R PLTS 150 - 450 k/ul 185 209R 190R MPV 6.5 - 11.0 fl 8.9 7.6R 6.9R PMN/BAND % 54 LYMPH % 32 MONO % 8 EOS % 5 BASO % 1 PMN ABSOLUTE 1.8 - 7.7 k/ul 3.5 LYMPH ABSOLUTE 1.0 - 4.8 k/ul 2.1 MONO ABSOLUTE 0.1 - 0.7 k/ul 0.5 EOS ABSOLUTE 0.0 - 0.5 k/ul 0.4 BASO ABSOLUTE 0.0 - 0.2 k/ul 0.0 Normal electrolytes, blood sugar. Kidney function Ref Range 07/28/14 5:30 PM Flag SODIUM 135 - 145 mmol/L 145 POTASSIUM 3.5 - 5.3 mmol/L 3.9 CHLORIDE 95 - 106 mmol/L 109 H CO2 22 - 30 mmol/L 28 ANION GAP (CALC.) 7 - 16 mmol/L 8 GLUCOSE 70 - 180 mg/dl 115 CALCIUM 8.4 - 10.2 mg/dl 8.5 BUN 7 - 20 mg/dl 15 CREATININE 0.66 - 1.25 mg/dl 1.03 GFR, ESTIMATED >60 ml/min/1.73m2 >60 GFR EST IF Normal cardiac tests/enzyme--- Ref Range 07/28/14 5:30 PM TROPONIN I 0.000 - 0.056 ng/ml <0.017 ICATION DEVELOPMENT LIAISON documented in this encounter Progress Notes Darwin Mcfarland DO - 08/02/2014 11:32 AM CST Zaid Rutledge is a 79 yr old male presents for Chief Complaint Patient presents with ??? Follow-up, NOS HPI Patient seen today for recheck He outlines no further nausea, orthostatics or presyncopal symptoms Ongoing stress concerns and his family No headache no visual complaints Denies chest pains or cardiopulmonary symptoms ROS CONSTITUTIONAL: Negative EYES: no visual blurring, no double vision RESPIRATORY: no shortness of breath, no cough, no sputum CARDIOVASCULAR: no chest pain, no exertional chest pain or pressure, no paroxysmal nocturnal dyspnea, no orthopnea, no lower extremity edema GASTROINTESTINAL: normal appetite, no nausea, no abdominal pain, no melena, no hematochezia, no constipation, no diarrhea NEUROLOGIC: no headaches, no syncope HEMATOLOGIC/LYMPHATIC/IMMUNOLOGIC: no fevers, no night sweats, no chills, no weight loss I reviewed the patients problem list/past medical history, past surgical history, family and social history, medication list, allergies, and recent testing reviewed with him his electrocardiogram and recent blood work --- Exam BP 146/82 Pulse 68 Temp(Src) 97.4 ??F (36.3 ??C) Resp 16 Ht 5' 8.5 (1.74 m) Wt 235 lb (106.595 kg) BMI 35.21 kg/m2 General: alert, oriented to person, place, time Eyes: conjunctivae clear Ears: pearly leach bilateral TMs and non-inflamed external ear canals Neck: no tenderness, supple and full AROM Chest/Pulmonary: chest clear with equal lung sounds bilaterally Cardiovascular: S1, S2 normal and regular rate and rhythm Neuro: speech clear and gait stable Psychiatric: affect/mood normal, cooperative, normal judgement/insight and memory intact Labs/Data Assessment/Plan 1. Vasovagal reaction No recurrent episodes Review of data from 07/28/2014 Symptoms were in the setting of emotional upset At this point I continue to observe matters Recheck in 2-3 months Time spent with the patient is 30 minutes with 50% of the time in counseling and discussion of the above medical concerns and management and expectations of his vasovagal episode Darwin Mcfarland DO 08/02/2014, 11:36 AM ICATION DEVELOPMENT LIAISON documented in this encounter Nursing Notes Gracia Adler LPN - 07/31/2014 3:43 PM CST Zaid Rutledge is a 79 yr male in clinic today for follow up office visit for dizziness and nausea. Gracia Adler LPN 07/31/2014, 3:43 PM ICATION DEVELOPMENT LIAISON documented in this encounter Plan of Treatment Not on filedocumented as of this encounter Visit Diagnoses Diagnosis Vasovagal reaction - Primary Syncope and collapse documented in this encounter Care Teams Currency Machine Operator Relationship Specialty Start Date End Date Ramses Cleary MD PCP - General Family Practice 10/21/11 documented as of this encounter
--- OUTSIDE RECORDS SUMMARY | 2022-02-24 12:26 | XMS_ITS | Encounter Summary ---
:1935 Author Organization Count includes the [facility] Address [address], [place] [address] Care Team Providers Name Role Phone Ramses Cleary MD Primary Care Provider Unavailable Reason for Visit Reason Comments DIZZINESS SWEATING,EXCESSIVE Nausea Encounter Details Date Type Department Care Team Description 07/28/2014 Office Visit [facility] Darwin Mcfarland Vasov agal reaction (Primary Dx); [facility], DO Nausea; Medicine [address] Dizz[address] [place] [address] [place], [place] [phone] Social History Tobacco Use Types Packs/Day Years [...] Reading Time Taken Comments Blood Pressure 136/78 07/28/2014 4:09 PM CAR DUMPER OPERATOR Pulse 68 07/28/2014 4:06 PM CAR DUMPER OPERATOR Temperature 36.3 ??C (97.4 ??F) 07/28/2014 4:06 PM CAR DUMPER OPERATOR Respiratory Rate 12 07/28/2014 4:06 PM CAR DUMPER OPERATOR Oxygen Saturation - - Inhaled Oxygen Concentration - - Weight 106.5 kg (234 lb 12.8 oz) 07/28/2014 4:06 PM CAR DUMPER OPERATOR Height 174 cm (5' 8.5) 07/28/2014 4:06 PM CAR DUMPER OPERATOR Body Mass Index 35.18 07/28/2014 4:06 PM CAR DUMPER OPERATOR documented in this encounter Patient Instructions Patient InstructionsGracia Adler LPN - 07/28/2014 4:02 PM CST Zaid Rutledge was offered Online Patient Services and does want to sign up and register at this time. Gracia Adler LPN 07/28/2014, 4:03 PM Labs this evening Recheck on Thursday PM and we can review your course Darwin Mcfarland DO 07/28/2014, 5:00 PM DUMPER OPERATOR documented in this encounter Progress Notes Darwin Mcfarland DO - 07/31/2014 7:58 AM CAR DUMPER OPERATOR Quick Note: Reviewed with patient during visit Darwin Mcfarland DO 07/31/2014, 7:57 AM DUMPER OPERATOR Darwin Mcfarland DO - 07/28/2014 5:14 PM CST Zaid Rutledge is a 79 yr old male presents for Chief Complaint Patient presents with ??? DIZZINESS ??? SWEATING,EXCESSIVE ??? Nausea HPI Patient presents today for an evaluation of the significant diaphoretic and dizzy episode Last evening he was watching television and developed sweating, severe nausea and dizziness Dizziness sounded to be somewhat presyncopal--no celina syncope He was sitting at the time He just ate half hour to an hour prior to the episode He developed with the episode severe abdominal discomfort and abdominal cramps He felt as if he needed to pass diarrhea Episode self-limited in 5-10 minutes It did not result in any nausea or vomiting He later had some significant loose stools He felt some slight fatigue after the episode Said some subsequent loose stools today No melena or hematochezia No hematemesis No significant chest pain or tightness No visual disturbance No vertiginous-type complaints No preceding episodes 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 Denies any current orthostatic complaints His notes that he is under a significant amount of emotional distress---Son going through a Divorce ROS CONSTITUTIONAL: Negative EYES: no visual blurring, no double vision, no eye pain ENT: no abnormally frequent URIs, no persistently sore throat, no vertigo history RESPIRATORY: no shortness of breath, no cough, no sputum CARDIOVASCULAR: no palpitations, no chest pain, no exertional chest pain or pressure, no paroxysmal nocturnal dyspnea, no orthopnea, no lower extremity edema GASTROINTESTINAL: normal appetite, no nausea, no abdominal pain, no melena, no hematochezia MUSCULOSKELETAL: no weakness, no muscle pains SKIN: no rash NEUROLOGIC: no headaches, no numbness or tingling of hands, no numbness or tingling of feet, no syncope HEMATOLOGIC/LYMPHATIC/IMMUNOLOGIC: no fevers, no night sweats, no chills, no weight loss ENDOCRINE: no cold intolerance, no heat intolerance, no polydypsia I reviewed the patients problem list/past medical history,, medication list, allergies, and recent testing. Exam BP 136/78 Pulse 68 Temp(Src) 97.4 ??F (36.3 ??C) (Oral) Resp 12 Ht 5' 8.5 (1.74 m) Wt 234lb 12.8 oz (106.505 kg) BMI 35.18 kg/m2 General: alert, oriented to person, place, time Eyes: conjunctivae clear Ears: pearly leach bilateral TMs and non-inflamed external ear canals Nose: no rhinorrhea/nasal discharge Mouth/Throat: no exudates, no erythema and no tonsillar enlargement Neck: no tenderness, supple and no adenopathy Chest/Pulmonary: chest clear with equal lung sounds bilaterally Cardiovascular: S1, S2 normal and regular rate and rhythm Abdomen: soft and non-tender Skin: no rashes Neuro: speech clear and gait stable Psychiatric: affect/mood normal, cooperative, normal judgement/insight and memory intact Labs/Data Assessment/Plan 1. Vasovagal reaction 2. Nausea 3. Dizziness Likely etiology of this presyncopal episode No further recurrent symptoms Further workup as below - CBC AND DIFF; Future - BASIC METABOLIC PANEL; Future - TROPONIN I; Future - ECG 12-LEAD ROUTINE; Future - CBC AND DIFF - BASIC METABOLIC PANEL - TROPONIN I - ECG 12-LEAD ROUTINE Results for orders placed in visit on 07/28/14 HEMOGRAM/PLTS/DIFF Result Value Ref Range WBC 6.5 4.0 - 11.0 k/ul RBC 5.22 4.5 - 5.9 M/ul HGB 16.5 13.5 - 17.5 g/dl HCT 47.6 41.0 - 53.0 % MCV 91.1 80 - 100 fl MCH 31.6 26 - 34 pg MCHC 34.7 32 - 36 g/dl RDW 12.9 11.5 - 14.5 % PLTS 185 150 - 450 k/ul MPV 8.9 6.5 - 11.0 fl PMN/BAND 54 LYMPH 32 MONO 8 EOS 5 BASO 1 PMN ABSOLUTE 3.5 1.8 - 7.7 k/ul LYMPH ABSOLUTE 2.1 1.0 - 4.8 k/ul MONO ABSOLUTE 0.5 0.1 - 0.7 k/ul EOS ABSOLUTE 0.4 0.0 - 0.5 k/ul BASO ABSOLUTE 0.0 0.0 - 0.2 k/ul BASIC METABOLIC PANEL Result Value Ref Range SODIUM 145 135 - 145 mmol/L POTASSIUM 3.9 3.5 - 5.3 mmol/L CHLORIDE 109 (*) 95 - 106 mmol/L CO2 28 22 - 30 mmol/L ANION GAP (CALC.) 8 7 - 16 mmol/L GLUCOSE 115 70 - 180 mg/dl CALCIUM 8.5 8.4 - 10.2 mg/dl BUN 15 7 - 20 mg/dl CREATININE 1.03 0.66 - 1.25 mg/dl GFR, ESTIMATED >60 >60 ml/min/1.73m2 GFR EST IF >60 >60 ml/min/1.73m2 TROPONIN I Result Value Ref Range TROPONIN I <0.017 0.000 - 0.056 ng/ml ECG 12-LEAD ROUTINE Result Value Ref Range VENTRICULAR RATE 68 ATRIAL RATE 68 P-R INTERVAL 140 QRS DURATION 88 QT 418 QTC 444 P AXIS 15 R AXIS -2 T AXIS -3 EKG No change from prior Reviewed studies with the patient Thursday evening at home Recheck 07/31/17 Time spent with the patient is 45 minutes with 50% of the time in counseling and discussion of the above medical concerns and management/workup of the vasoavagal episode Darwin Mcfarland DO 07/31/2014, 7:56 AM DUMPER OPERATOR documented in this encounter Nursing Notes Gracia Adler LPN - 07/28/2014 4:05 PM CST Zaid Rutledge is a 79 yr male in clinic today for dizziness, sweats, nausea while sitting and watching tv. Gracia Adler LPN 07/28/2014, 4:05 PM DUMPER OPERATOR documented in this encounter Plan of Treatment Not on filedocumented as of this encounter Procedures Procedure Name Priority Date/Time Associated Diagnosis Comme nts COMPLETE BLOOD Routine 07/28/2014 5:30 PM Nausea Results for this COUNT-W/DIFF CAR DUMPER OPERATOR procedure are i n the results section. BASIC METABOLIC Routine 07/28/2014 5:30 PM Nausea Result s for this PANEL CAR DUMPER OPERATOR procedure are i n the results section. TROPONIN I Routine 07/28/2014 5:30 PM Nausea Results f or this CAR DUMPER OPERATOR procedure are i n the results section. ECG 12-LEAD ROUTINE Routine 07/28/2014 5:15 PM Nausea Re sults for this CAR DUMPER OPERATOR procedure are i n the results section. documented in this encounter Results TROPONIN I (07/28/2014 5:30 PM CAR DUMPER OPERATOR) P athologist Signature Troponin I <0.017 0.000 - [facility] 0.056 ng/ml [facility] Specimen Anatomical Collection Method Collection Time Receive d Time (Source) Location / / Volume Laterality 07/28/2014 5:30 PM 5 5:35 CAR DUMPER OPERATOR PM CAR DUMPER OPERATOR Narrative [facility] - 07/28/2014 7:17 PM CS T Performed at [facility], [address] [place] [id number] Darwin Mcfarland DO LAB_1 Performing Organization Address City/[facility]/ZIP Code Phon e Number [address] [address] (ABNORMAL) BASIC METABOLIC PANEL (07/28/2014 5:30 PM CAR DUMPER OPERATOR) athologist Signature Sodium 145 135 - 145 [facility] mmol/L [facility] Potassium 3.9 3.5 - 5.3 [facility] mmol/L [facility] Chloride 109 (H) 95 - 106 [facility] mmol/L [facility] CO2 28 22 - 30 [facility] mmol/L [facility] Anion Gap 8 7 - 16 [facility] (calc.) mmol/L [facility] Glucose 115 70 - 180 [facility] mg/dl [facility] Calcium 8.5 8.4 - 10.2 [facility] mg/dl [facility] BUN 15 7 - 20 [facility] mg/dl [facility] Creatinine 1.03 0.66 - [facility] 1.25 mg/dl [facility] GFR, Estimated >60 >60 [facility] ml/min/1.7 [facility] 3m2 GFR, Est., If >60 >60 [facility] Black ml/min/1.7 [facility] 3m2 Specimen Anatomical Collection Method Collection Time Receive d Time (Source) Location / / Volume Laterality 07/28/2014 5:30 PM 5 5:35 CAR DUMPER OPERATOR PM CAR DUMPER OPERATOR Critical [facility] hospital - 07/28/2014 6:16 PM CS T Performed at [place] [facility] [address] [place], [address] [place] [address] Darwin Mcfarland DO LAB_1 Performing Organization Address City/[facility]/ZIP Code Phon e Number [address] [address] CBC AND DIFF (07/28/2014 5:30 PM CAR DUMPER OPERATOR) athologist Signature WBC 6.5 4.0 - 11.0 [facility] k/ul [facility] RBC 5.22 4.5 - 5.9 [facility] M/ul [facility] Hemoglobin 16.5 13.5 - [facility] 17.5 g/dl [facility] HCT 47.6 41.0 - [facility] 53.0 % [facility] MCV 91.1 80 - 100 [facility] MCH 31.6 26 - 34 pg [facility] MCHC 34.7 32 - 36 [facility] g/dl [facility] RDW 12.9 11.5 - [facility] 14.5 % [facility] Platelets 185 150 - 450 [facility] MPV 8.9 6.5 - 11.0 [facility] PMN/Band 54 % [facility] Lymph 32 % [facility] Douglas 8 % [facility] Eos 5 % [facility] Baso 1 % [facility] Neutrophil 3.5 1.8 - 7.7 [facility] Absolute k/ [facility]OSPITAL Lymph Absolute 2.1 1.0 - 4.8 [facility]OSPITAL Douglas Absolute 0.5 0.1 - 0.7 [facility]OSPITAL Eos Absolute 0.4 0.0 - 0.5 [facility]ITAL Baso Absolute 0.0 0.0 - 0.2 [facility] Specimen Anatomical Collection Method Collection Time Receive d Time (Source) Location / / Volume Laterality 07/28/2014 5:30 PM 5 5:35 CAR DUMPER OPERATOR PM CAR DUMPER OPERATOR Narrative [facility] - 07/28/2014 6:14 PM CS T Performed at [place] [facility] [address], [address] [place] [address] Darwin Mcfarland DO LAB_1 Performing Organization Address City/State/ZIP Code Phon e Number [address] [address] ECG 12-LEAD ROUTINE (07/28/2014 5:15 PM CAR DUMPER OPERATOR) athologist Signature Ventricular Rate 68 BPM [facility] Atrial Rate 68 [facility] P-R Interval 140 ms [facility] QRS Duration 88 ms [facility] QT 418 ms [facility] QTc 444 ms [facility] P [place] 15 degrees [facility] R [place] -2 degrees [facility] T [place] -3 degrees [facility] Specimen (Source) Anatomical Collection Method Collection Time Re ceived Time Location / / Volume Laterality 07/28/2014 5:15 PM CAR DUMPER OPERATOR Narrative [facility] - 07/28/2014 5:27 PM CAR DUMPER OPERATOR Sinus rhythm Normal ECG No previous ECGs available No change since previous tracing from 2013 tracing Confirmed by DO [place] MARK ([id number]) o n 07/28/2014 5:27:24 PM Procedure Note Darwin Mcfarland DO - 07/28/2014Formatti ng of this note might be different from the original. Sinus rhythm Normal ECG No previous ECGs available No change since previous tracing from 2013 tracing Confirmed by DO [place] MARK ([id number]) o n 07/28/2014 5:27:24 PM Darwin Mcfarland DO EKG Performing Organization Address City/State/ZIP Code [facility] e Number [facility] documented in this encounter Visit Diagnoses Diagnosis Vasovagal reaction - Primary Syncope and collapse Nausea Nausea alone Dizziness Dizziness and giddiness documented in this encounter Care Teams Air Conditioning Service Technician Relationship Specialty Start Date End Date Ramses Cleary MD PCP - General Family Practice 10/21/11 documented as of this encounter"
--- OUTSIDE RECORDS SUMMARY | 2022-02-24 12:26 | XMS_ITS | Encounter Summary ---
:1935 Author Organization [facility] Address [address], [place] [address] Care Team Providers Name Role Phone Ramses Cleary MD Primary Care Provider Unavailable Reason for Visit Reason Comments Follow-up, NOS left ear Encounter Details Date Type Department Care Team Description 09/27/2013 Office Visit [facility] Mingo Santana cancer (Primary [place] Otolaryng bong Salinas MD Dx) [address] [facility] [address] [place] [address] [phone] [place], [place] [phone] Social History Tobacco Use Types Packs/Day Years [...] documented as of this encounter Progress Notes Mingo Santana MD - 09/27/2013 4:08 PM CDT This office note has been dictated. 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 He has had no complaints of drainage, inflammation, or ulceration. His past medical, surgical history, medications, and allergies were reviewed and noted on Epic. Prior clinic notes were reviewed, along with path report. Please note the close margin on the left. OBJECTIVE: General: On physical exam, both ears were scrutinized using the operating microscope. The previous graft site on the left looks well-healed. Inspection of all margins shows no evidence of recurrence. Nasal and oral were otherwise unremarkable. IMPRESSION: No evidence of recurring skin cancer. PLAN: Follow up p.r.n. Mingo Santana MD BFD:[id number] Dictated: 09/27/2013 16:29:52 Transcribed: 09/29/2013 10:20:09 Job: [id number] Doc: [id number] cc: documented in this encounter Plan of Treatment Not on filedocumented as of this encounter Visit Diagnoses Diagnosis Skin cancer - Primary Unspecified malignant neoplasm of skin, site unspecified documented in this encounter Care Teams Renal Dietitian Relationship Specialty Start Date End Date Ramses Cleary MD PCP - General Family Practice 10/21/11 documented as of this encounter
--- OUTSIDE RECORDS SUMMARY | 2022-02-24 12:26 | XMS_ITS | Encounter Summary ---
:1935 Author Organization [facility] Address [address] [address] Care Team Providers Name Role Phone Ramses Cleary MD Primary Care Provider Unavailable Encounter Details Date Type Department Care Team Description 09/20/2014 Orders Only [facility] [place] Prostate cancer Laboratory [address] [place] [address] Social History Tobacco Use Types Packs/Day [...] encounter Progress Notes Deepika Arellano, RN - 09/20/2014 1:52 PM CDT Quick Note: Will discuss test results with Dr. Rodney at his upcoming appt on 10-10-2014. Deepika Arellano RN 09/20/2014, 1:52 PM documented in this encounter Plan of Treatment Not on filedocumented as of this encounter Procedures Procedure Name Priority Date/Time Associated Diagnosis Comme nts PROSTATIC SPECIFIC Routine 09/20/2014 11:35 AM Prostate cancer Results for this ANTIGEN (DIAGNOSTIC CDT procedur e are in F/U) the results section. documented in this encounter Results (ABNORMAL) 6 mos (09/20/2014 11:35 AM CDT) athologist Signature Prostatic Spec 5.07 (H) 0.00 - [facility] Ag 4.00 ng/ml [facility]OSPITAL Specimen Anatomical Collection Method Collection Time Receive d Time (Source) Location / / Volume Laterality 09/20/2014 11:35 09/20/2014 AM CDT 11:[address] [facility] - 09/20/2014 1:29 PM CD T Performed at [facility], [address] [place] [address] Waqas Rodney MD LAB_1 Performing Organization Address City/State/ZIP Code Phon e Number [address] [address] documented in this encounter Visit Diagnoses Diagnosis Prostate cancer ([facility]) Malignant neoplasm of prostate documented in this encounter Care Teams Supervisor Remelt Relationship Specialty Start Date End Date Ramses Cleary MD PCP - General Family Practice 10/21/11 documented as of this encounter
--- OUTSIDE RECORDS SUMMARY | 2022-02-24 12:26 | XMS_ITS | Encounter Summary ---
:1935 Author Organization [facility] Address [address], [place] [address] Care Team Providers Name Role Phone Ramses Cleary MD Primary Care Provider Unavailable Reason for Visit Reason Onset Date Comments Refill 08/25/2013 allopurinol Encounter Details Date Type Department Care Team Description 08/25/2013 Refill [facility] Ramses Cleary, Refill (allopurinol) [facility] Pr anjelica MURRAY [address] [place] [address] [address] [phone] [place] [address] Social History Tobacco Use Types Packs/Day Years [...] as of this encounter Nursing Notes Adelaide Rehman, EULOGIO - 08/25/2013 8:38 PM CDT CREATININE (mg/dl) Date Value 07/22/2013 1.22 ALT (SGPT) (IU/L) Date Value 01/07/2012 63* URIC ACID (mg/dL) Date Value 03/25/2012 6.1 Last Visit 08/03/13 Pre Op Exam RN will route refill to provider to review need for ALT/review previous ALT which was elevated and approve refills as appropriate Adelaide Castellon RN 08/25/2013, 8:39 PM Madison Abraham - 08/25/2013 8:18 AM CDT allopurinol (AKA ZYLOPRIM) 100 MG tablet Take 1 Tab by mouth daily #90 LF 03/23/2013 Madison Cespedes CMA 08/25/20138:18 AM documented in this encounter Plan of Treatment Not on filedocumented as of this encounter Visit Diagnoses Not on filedocumented in this encounter Care Teams Wood Model Maker Relationship Specialty Start Date End Date Ramses Cleary MD PCP - General Family Practice 10/21/11 documented as of this encounter
--- OUTSIDE RECORDS SUMMARY | 2022-02-24 12:26 | XMS_ITS | Encounter Summary ---
:1935 Author Organization [facility] Address [address] [address] Care Team Providers Name Role Phone Ramses Cleary MD Primary Care Provider Unavailable Reason for Visit Reason Onset Date Comments Routine Post-op Call 08/05/2013 Encounter Details Date Type Department Care Team Description 08/05/2013 Telephone [facility] Ruy Grossman, Routine Post-op Call [address] [facility] [place] [address] Social History Tobacco Use Types [...] documented as of this encounter Nursing Notes Maggy De Leon RN - 08/08/2013 12:55 PM CST Post Procedure Follow-up Call 08/08/2013 Time: 1256 Follow-up Phone Call Procedure: Operative procedure: Excision of lesion ear-left post auricular skin graft Patient Contacted. Discharge instructions verification, Follow up appointment confirmed, Nausea: Patient denies nausea, Diet: tolerating, Voiding: Voiding, Activity level: Tolerating activity level, Pain: Analog PainScale 0/10, Pain medication is effective and Other Pt only has intermittent pain and it goes away quickly, Surgical site assessment: No swelling of operative site and Anesthesia awareness: Last thing patient remembers before anesthesia laying on the table, First thing patient remembers waking up seeing his nurse and Patient recalls events between sleep and wake up? No Maggy De Leon RN ANICAL MANAGER Neema Grossman RN - 08/05/2013 2:27 PM CST Post Procedure Follow-up Call 08/05/2013 Time: 1428 Follow-up Phone Call Procedure: Operative procedure: exc left ear lesion Unable to Contact. First Attempt: Reached answering machine and Message left with [facility] phone number only Neema Grossman RN ANICAL MANAGER documented in this encounter Plan of Treatment Not on filedocumented as of this encounter Visit Diagnoses Not on filedocumented in this encounter Care Teams Blower Operator Relationship Specialty Start Date End Date Ramses Cleary MD PCP - General Family Practice 10/21/11 documented as of this encounter
--- OUTSIDE RECORDS SUMMARY | 2022-02-24 12:26 | XMS_ITS | Encounter Summary ---
:1935 Author Organization [facility] Address [address] [address] Care Team Providers Name Role Phone Ramses Cleary MD Primary Care Provider Unavailable Reason for Visit Reason Comments Post Op Exam remove sutures Encounter Details Date Type Department Care Team Description 08/11/2013 Office Visit [facility] Mingo Santana cancer (Primary [place] Otolaryng bong Salinas MD Dx) [address] [facility] [address] [place] [address] [phone] [place], [place] [id number] Social History Tobacco Use Types Packs/Day Years [...] encounter Progress Notes Mingo Santana MD - 08/11/2013 1:05 PM CST This office note has been dictated. 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 OBJECTIVE: The graft has taken nicely. Sutures were removed. Inspection shows no obvious or overt lesion. Path report reviewed, close anteriorly. PLAN: Will see him back in a month to 6 weeks. May consider re- biopsy or just Close or pos the anterior lip of that lesion. Mingo Santana MD BFD:[id number] Dictated: 08/11/2013 13:05:29 Transcribed: 08/15/2013 13:43:47 Job: [id number] Doc: [id number] cc: HOLOGY TECH documented in this encounter Plan of Treatment Not on filedocumented as of this encounter Visit Diagnoses Diagnosis Skin cancer - Primary Unspecified malignant neoplasm of skin, site unspecified documented in this encounter Care Teams Last Sawyer Relationship Specialty Start Date End Date Ramses Cleary MD PCP - General Family Practice 10/21/11 documented as of this encounter
--- OUTSIDE RECORDS SUMMARY | 2022-02-24 12:26 | XMS_ITS | Encounter Summary ---
:1935 Author Organization [facility] Address [address] [address] Care Team Providers Name Role Phone Ramses Cleary MD Primary Care Provider Unavailable Encounter Details Date Type Department Care Team Description 08/04/2013 Orders Only [facility] [address] [place] [address] Social History Tobacco Use Types Packs/Day Years [...] on filedocumented in this encounter Care Teams Catering Chef Relationship Specialty Start Date End Date Ramses Cleary MD PCP - General Family Practice 10/21/11 documented as of this encounter
--- OUTSIDE RECORDS SUMMARY | 2022-02-24 12:26 | XMS_ITS | Encounter Summary ---
:1935 Author Organization [facility] Address [address], [place] [address] Care Team Providers Name Role Phone Ramses Cleary MD Primary Care Provider Unavailable Encounter Details Date Type Department Care Team Description 08/03/2013 [facility] [address] [place] [address] [place] [address] Social History Tobacco Use Types Packs/Day Years [...] on file documented as of this encounter Procedure Notes Ramses Cleary MD - 08/03/2013 12:00 AM CSTAssociated Order(s): ECG TRACING SUBMERGENCE VEHICLE OPERATOR documented in this encounter Plan of Treatment Not on filedocumented as of this encounter Procedures Procedure Name Priority Date/Time Associated Diagnosis Comme nts ECG TRACING 08/03/2013 12:00 AM Results for this DEEP SUBMERGENCE VEHICLE OPERATOR procedure are i n the results section . documented in this encounter Results ECG TRACING (08/03/2013 12:00 AM DEEP SUBMERGENCE VEHICLE OPERATOR) Specimen (Source) Anatomical Location Collection Method / Collectio n Time Received Time / Laterality Volume 08/03/2013 Narrative This result has an attachment that is no t available. Transcriptions Ramses Cleary MD - 08/03/2013 12:00 AM CST Ramses Cleary MD EKG documented in this encounter Visit Diagnoses Not on filedocumented in this encounter Care Teams Insurance Claim Representative Relationship Specialty Start Date End Date Ramses Cleary MD PCP - General Family Practice 10/21/11 documented as of this encounter
--- OUTSIDE RECORDS SUMMARY | 2022-02-24 12:26 | XMS_ITS | Encounter Summary ---
:1935 Author Organization [facility] Address [address] [address] Care Team Providers Name Role Phone Ramses Cleary MD Primary Care Provider Unavailable Encounter Details Date Type Department Care Team Description 07/10/2014 Orders Only [facility] UTI (l ower urinary tract [place] [facility] infection) (Primary Dx) [address] [place] [address] Social History Tobacco Use Types Packs/Day [...] encounter Progress Notes Deepika Arellano RN - 07/12/2014 12:58 PM FIBERGLASS FABRICATOR Quick Note: Patient has been notified of his test results. Deepika Arellano RN 07/12/2014, 12:58 PM RGLASS FABRICATOR Waqas Rodney MD - 07/12/2014 11:35 AM FIBERGLASS FABRICATOR Quick Note: Has a urinary tract infection if not on antibiotics and started on Duricef 500 by mouth twice a dayfor 7 days RGLASS FABRICATOR Waqas Rodney MD - 07/11/2014 11:37 AM FIBERGLASS FABRICATOR Quick Note: Awaiting culture RGLASS FABRICATOR Waqas Rodney MD - 07/10/2014 4:14 PM FIBERGLASS FABRICATOR Quick Note: MAY HAVE UTI WILL CULTURE RGLASS FABRICATOR documented in this encounter Plan of Treatment Not on filedocumented as of this encounter Procedures Procedure Name Priority Date/Time Associated Diagnosis Comme nts URINE CULTURE Routine 07/10/2014 3:51 PM UTI (lower urinary Re sults for this FIBERGLASS FABRICATOR tract infection) procedure a re in the results section . UA MICRO IF STAT 07/10/2014 3:51 PM UTI (lower urinary Res ults for this FIBERGLASS FABRICATOR tract infection) procedure a re in the results section . UA MICRO STAT 07/10/2014 3:51 PM Results f or this FIBERGLASS FABRICATOR procedure are i n the results section . documented in this encounter Results URINE CULTURE (07/10/2014 3:51 PM FIBERGLASS FABRICATOR) [facility] Method Time Signature Specimen Urine [facility] Description HOSPITAL Special Unspecified [facility] Requests HOSPITAL Culture > 100,000 [facility] col/ml [facility]OSPITAL Escherichia coli Report Status Final [facility] 07/12/2014 HOSPITAL Organism > 100,000 [facility] col/ml [facility] Escherichia coli Specimen Anatomical Collection Method Collection Time Receive d Time (Source) Location / / Volume Laterality 07/10/2014 3:51 PM 5 4:23 FIBERGLASS FABRICATOR PM FIBERGLASS FABRICATOR Narrative [facility] - 07/12/2014 9:19 AM CS T Performed at [facility], [address] [place] [address] Organism Antibiotic Method Susceptibility > 100,000 col/ml Ampicillin LV FRIEDA >16 escherichia coli Resistant Predicts Activit y of Amoxicillin Resistant > 100,000 col/ml Ampicillin/Sulbactam LV FRIEDA >16/8 escherichia coli Resistant Resistant > 100,000 col/ml Cefazolin LV FRIEDA 16 escherichia coli Intermediate Isolates suscept ible to Cefazolin are al so susceptible to Cephadroxil and Cephalexin. Intermediate > 100,000 col/ml Cefepime LV FRIEDA <=1 escherichia coli Susceptible SUSCEPTIBLE > 100,000 col/ml Cefoxitin LV FRIEDA 8 escherichia coli Susceptible SUSCEPTIBLE > 100,000 col/ml Ceftriaxone LV FRIEDA <=2 escherichia coli Susceptible SUSCEPTIBLE > 100,000 col/ml Cefuroxime LV FRIEDA <=4 escherichia coli Susceptible SUSCEPTIBLE > 100,000 col/ml Ciprofloxacin LV FRIEDA >2 escherichia coli Resistant Resistant > 100,000 col/ml Ertapenem LV FRIEDA <=0.5 escherichia coli Susceptible SUSCEPTIBLE > 100,000 col/ml Gentamicin LV FRIEDA <=2 escherichia coli Susceptible SUSCEPTIBLE > 100,000 col/ml Levofloxacin LV FRIEDA >4 escherichia coli Resistant Resistant > 100,000 col/ml Meropenem LV FRIEDA <=1 escherichia coli Susceptible SUSCEPTIBLE > 100,000 col/ml Nitrofurantoin LV FRIEDA 32 escherichia coli Susceptible Limited to use i n lower urinary tract in fections. Do not use in patie nts with Creatinine Clearance less than 60 ml/ min. SUSCEPTIBLE > 100,000 col/ml Piper/tazobactam LV FRIEDA 4/4 escherichia coli Susceptible SUSCEPTIBLE > 100,000 col/ml Trimeth/Sulfa LV FRIEDA >2/38 escherichia coli Resistant Resistant Waqas Rodney MD LAB_1 Performing Organization Address City/State/ZIP Code Phon e Number [facility] [address] [place], [place] [id number] [address] [address] UA MICRO (07/10/2014 3:51 PM FIBERGLASS FABRICATOR) athologist Signature RBC'S 0-3 0 - 3 /hpf [facility] WBC'S 3-5 0 - 5 /hpf [facility] Epith, Squamous Occ /hpf [facility] Bact Many [facility] Casts 0 /lpf [facility] Specimen Anatomical Collection Method Collection Time Receive d Time (Source) Location / / Volume Laterality 07/10/2014 3:51 PM 5 3:56 FIBERGLASS FABRICATOR PM FIBERGLASS FABRICATOR [facility] - 07/10/2014 4:03 PM CS T Performed at [place] [facility], [address] [place] [address] Waqas Rodney MD LAB_1 Performing Organization Address [facility] Phon e Number [address] [address] (ABNORMAL) UA MICRO IF (07/10/2014 3:51 PM FIBERGLASS FABRICATOR) [facility] Method Time Signature Urine Color Yellow [facility] Urine Clarity Clear [facility] Sp Gr 1.020 1.005 - [facility] 1.030 HOSPITAL Leuk Sml (A) NEG [facility] Nitr Positive NEG [facility] (A) [facility] pH 5.5 4.5 - 8.0 [facility] Prot Negative NEG mg/dl [facility] Gluc Negative NEG [facility] Ket Negative NEG [facility] Urob 0.2 0.2 - 1.0 [facility] EU/dl [facility] Bili Negative NEG [facility] Blood Negative NEG [facility] Specimen Anatomical Collection Method Collection Time Receive d Time (Source) Location / / Volume Laterality 07/10/2014 3:51 PM 5 3:56 FIBERGLASS FABRICATOR PM FIBERGLASS FABRICATOR [facility] - 07/10/2014 4:02 PM CS T Performed at [place] [facility], [address] [place] [address] Waqas Rodney MD LAB_1 Performing Organization Address City/[facility] Phon e Number [address] [address] documented in this encounter Visit Diagnoses Diagnosis UTI (lower urinary tract infection) - Pr imary Urinary tract infection, site not specif ied documented in this encounter Care Teams Automobile Locator Relationship Specialty Start Date End Date Ramses Cleary MD PCP - General Family Practice 10/21/11 documented as of this encounter
--- OUTSIDE RECORDS SUMMARY | 2022-02-24 12:26 | XMS_ITS | Encounter Summary ---
:1935 Author Organization [facility] Address [address], [place] [address] Care Team Providers Name Role Phone Ramses Cleary MD Primary Care Provider Unavailable Reason for Referral Procedure/Equipment (Routine) - Incomplete Specialty Diagnoses / Procedures Referred By Contact Refer red To Contact Diagnoses Pneumonia Tan Caldwell MD Procedures XR CHEST PA/AP AND LAT 2 VIEWS * [address] [place] [address] Referral ID Status Reason Start Date Expiration Date Visits V isits Requested Authorized [id number] Incomplete 02/09/2014 1 1 Reason for Visit Reason Comments COUGH CONGESTION Encounter Details Date Type Department Care Team Description 02/09/2014 Office Visit [facility] Pneumo nirav (Primary Dx) [place] [place] [facility] [address] [place] [address] Social History Tobacco Use Types Packs/Day [...] Sign Reading Time Taken Comments Blood Pressure 122/74 02/09/2014 3:18 PM CDT Pulse 58 02/09/2014 3:18 PM CDT Temperature 36.5 ??C (97.7 ??F) 02/09/2014 3:18 PM CDT Respiratory Rate 12 02/09/2014 3:18 PM CDT Oxygen Saturation 95% 02/09/2014 3:18 PM CDT Inhaled Oxygen Concentration - - Weight 107 kg (236 lb) 02/09/2014 3:18 PM CDT Height - - Body Mass Index 34.85 08/03/2013 8:43 AM DIABETES TRAINER documented in this encounter Patient Instructions Patient InstructionsTan Caldwell MD - 02/09/2014 4:10 PM CDT Images from the original note were not included. Learning About Asthma What is asthma? Asthma is a long-term condition that affects your breathing. It causes the airways that lead to the lungs to swell. People with asthma may have asthma attacks. During an asthma attack, the airways tighten and become narrower. This makes it hard to breathe, and you may wheeze or cough. If you have a bad asthma attack, you may need emergency care. Asthma affects people in different ways. Some people only have asthma attacks during allergy season,or when they breathe in cold air, or when they exercise. Others have many bad attacks that send themto the doctor often. What are the symptoms? Symptoms of asthma can be mild or severe. You may have mild attacks now and then, you may have severe symptoms every day, or you may have something in between. How often you have symptoms can also change. When you have asthma, you may: ?? Wheeze, making a loud or soft whistling noise when you breathe in and out. ?? Cough a lot. ?? Feel tightness in your chest. ?? Feel short of breath. ?? Have trouble sleeping because of coughing or having a hard time breathing. ?? Get tired quickly during exercise. Your symptoms may be worse at night. How can you prevent asthma attacks? Certain things can make asthma symptoms worse. These are called triggers. When you are around a trigger, an asthma attack is more likely. Common triggers include: ?? Cigarette smoke or air pollution. ?? Things you are allergic to, such as: ?? Pollen, mold, or dust mites. ?? Pet hair, skin, or saliva. ?? Illnesses, like colds, flu, or pneumonia. ?? Exercise. ?? Dry, cold air. Here are some ways to avoid a few common triggers: ?? Do not smoke or allow others to smoke around you. If you need help quitting, talk to your doctor about stop-smoking programs and medicines. These can increase your chances of quitting for good. ?? If there is a lot of pollution, pollen, or dust outside, stay at home and keep your windows closed. Use an air conditioner or air filter in your home. Check your local weather report or newspaper for air quality and pollen reports. ?? Get the flu vaccine every year. Talk to your doctor about getting a pneumococcal shot. Wash your hands often to prevent infections. ?? Avoid exercising outdoors in cold weather. If you are outdoors in cold weather, wear a scarf around your face and breathe through your nose. How is asthma treated? There are two parts to treating asthma, which are outlined in your asthma action plan. The goals areto: ?? Control asthma over the terminal block assembler. The asthma action plan tells you which medicine you may need to take every day. This is called a controller medicine. It helps to reduce the swelling of the airways and prevent asthma attacks. ?? Treat asthma attacks when they occur. The asthma action plan tells you what to do when you have an asthma attack. It helps you identify triggers that can cause your attacks. You use quick-relief medicine during an attack. The asthma plan also helps you track your symptoms and know how well the treatment is working. Follow-up care is a gonzales part of your treatment and safety. Be sure to make and go to all appointments, and call your doctor if you are having problems. It's also a good idea to know your test results and keep a list of the medicines you take. Where can you learn more? Go to [employer] and enter G441 in the search box. Last Revised: August 03, 2012 ?? [id number] [employer]. Pneumonia: After Your Visit Your Care Instructions Pneumonia is an infection of the lungs. Most cases are caused by infections from bacteria or viruses. Pneumonia may be mild or very severe. If it is caused by bacteria, you will be treated with antibiotics. It may take a few weeks to a few months to recover fully from pneumonia, depending on how sick you were and whether your overall health is good. Follow-up care is a gonzales part of your treatment and safety. Be sure to make and go to all appointments, and call your doctor if you are having problems. It???s also a good idea to know your test resultsand keep a list of the medicines you take. How can you care for yourself at home? ?? Take your antibiotics exactly as directed. Do not stop taking the medicine just because you are feeling better. You need to take the full course of antibiotics. ?? Take your medicines exactly as prescribed. Call your doctor if you think you are having a problemwith your medicine. ?? Get plenty of rest and sleep. You may feel weak and tired for a while, but your energy level willimprove with time. ?? To prevent dehydration, drink plenty of fluids, enough so that your urine is light yellow or clear like water. Choose water and other caffeine-free clear liquids until you feel better. If you have kidney, heart, or liver disease and have to limit fluids, talk with your doctor before you increase the amount of fluids you drink. ?? Take care of your cough so you can rest. A cough that brings up mucus from your lungs is common with pneumonia. It is one way your body gets rid of the infection. But if coughing keeps you from resting or causes severe fatigue and chest-wall pain, talk to your doctor. He or she may suggest that youtake a medicine to reduce the cough. ?? Use a vaporizer or humidifier to add moisture to your bedroom. Follow the directions for cleaningthe machine. ?? Do not smoke or allow others to smoke around you. Smoke will make your cough last longer. If you need help quitting, talk to your doctor about stop-smoking programs and medicines. These can increaseyour chances of quitting for good. ?? Take an ufml-wau-ggeygit pain medicine, such as acetaminophen (Tylenol), ibuprofen (Advil, Motrin), or naproxen (Aleve). Read and follow all instructions on the label. ?? Do not take two or more pain medicines at the same time unless the doctor told you to. Many pain medicines have acetaminophen, which is Tylenol. Too much acetaminophen (Tylenol) can be harmful. ?? If you were given a spirometer to measure how well your lungs are working, use it as instructed. This can help your doctor tell how your recovery is going. ?? To prevent pneumonia in the future, talk to your doctor about getting a flu vaccine (once a year)and a pneumococcal vaccine (one time only for most people). When should you call for help? Call 911 anytime you think you may need emergency care. For example, call if: ?? You have severe trouble breathing. Call your doctor now or seek immediate medical care if: ?? You cough up dark brown or bloody mucus (sputum). ?? You have new or worse trouble breathing. ?? You are dizzy or lightheaded, or you feel like you may faint. Watch closely for changes in your health, and be sure to contact your doctor if: ?? You have a new or higher fever. ?? You are coughing more deeply or more often. ?? You are not getting better after 2 days (48 hours). ?? You do not get better as expected. Where can you learn more? Go to [employer] and enter D336 in the search box. Last Revised: October 29, 2012 ?? [id number] [employer] documented in this encounter Progress Notes Tan Caldwell MD - 02/09/2014 5:13 PM CDT S Patient is a 78 yr male who presents with a 3-day(s) history of nasal congestion and productive cough. Associated symptoms include fever and wheezing. Patient does not report chest pain, facial pain, pain in the both ear(s) and sore throat. Past Medical History is positive for: Pneumonia, Asthma and Allergic rhinitis Past Medical History is negative for COPD and Recurrent sinusitis Smoking status: Quit Current Outpatient Prescriptions Medication Sig ??? acetaminophen (AKA TYLENOL EXTRA STRENGTH) 500 MG tablet Take 1,000 mg by mouth two times a day. ??? ALBUterol sulfate hfa 108 (90 BASE) MCG/ACT inhaler Inhale 2 Puffs by mouth every 4 hours as needed for Wheezing. ??? ALBUterol sulfate hfa 108 (90 BASE) MCG/ACT inhaler Inhale 2 Puffs by mouth every 4 hours as needed for Wheezing. ??? allopurinol (AKA ZYLOPRIM) 100 MG tablet Take 1 Tab by mouth daily. ??? azithromycin (AKA ZITHROMAX) 250 MG tablet Take 2 tablets by mouth day 1, then take 1 tablet daily by mouth for days 2 - 5. ??? budesonide-formoterol (SYMBICORT) 160-4.5 MCG/ACT inhaler Inhale [...] by mouth two times a day. ??? guaiFENesin-codeine (AKA ROBITUSSIN AC) 100-10 MG/5ML solution Take 5-10 mL by mouth every 4 hours as needed for up to 14 days. ??? ibuprofen (AKA MOTRIN) 200 MG tablet Take 200 mg by mouth every 4 hours as needed for Pain. ??? Multiple Vitamins-Minerals (ICAPS AREDS FORMULA OR) 1 Tab two times a day. ??? omeprazole (AKA PRILOSEC) 20 MG capsule Take 1 Cap by mouth two times a day. Take 1 hour before a meal. ??? predniSONE (AKA DELTASONE) 20 MG tablet Take 2 Tabs by mouth daily. O General Appearance : Overwieght male in mild Respiratory Distress. Skin: cyanosis absent, rash absent. Lymph Nodes: within normal limits HEENT: Head: atraumatic, normocephalic; Eyes: Conjunctival erythema: absent Ears: within normal limits bilateral Nose: unremarkable; Throat: WNL Neck: supple without mass, adenopathy, or thyromegaly Heart: normal and regular rate and rhythm without murmur, gallop or rub Lungs: positive findings: rales L mid posterior, rhonchi scattered CXR:No change from before. Albuterol neb given with resolution of Rhonchi A Acute Bronchitis Acute Exacerbation of Asthma Suspect LLL Pneumonia, Community Acquired P Symptomatic treatment and See prescribed medication(s) Terrence AC PRN HS,prednisone,Zithromax Albuterol refill RTC if SOB,fever etc.. Follow handouts Tan Caldwell MD 02/09/2014, 5:22 PM documented in this encounter Plan of Treatment Not on filedocumented as of this encounter Results XR CHEST PA/AP AND LAT 2 VIEWS * (02/09/2014 3:57 PM CDT) Anatomical Region Laterality Modality Chest, Lung Computed Radiography Specimen (Source) Anatomical Collection Method Collection Time Re ceived Time Location / / Volume Laterality 02/09/2014 3:57 PM CDT Narrative 02/09/2014 4:15 PM CDT XR CHEST AP/PA AND LAT 2VWS 02/09/2014 3:57 PM INDICATION: Cough and chest pain COMPARISON: 05/25/2013 FINDINGS: No change. Calcified granuloma ta present left lung but no new pneumonia. Lungs are hyperexpanded. Hear t size normal. Old bilateral clavicular and left rib fractures. Procedure Note Milton Collins MD - 02/09/2014Forma tting of this note might be different from the original. XR CHEST AP/PA AND LAT 2VWS 02/09/2014 3:57 PM INDICATION: Cough and chest pain COMPARISON: 05/25/2013 FINDINGS: No change. Calcified granuloma ta present left lung but no new pneumonia. Lungs are hyperexpanded. Hear t size normal. Old bilateral clavicular and left rib fractures. Tan Caldwell MD RAD GD documented in this encounter Visit Diagnoses Diagnosis Pneumonia - Primary Pneumonia, organism unspecified Pneumonia Pneumonia, organism unspecified documented in this encounter Care Teams Clinical Manager Home Care Relationship Specialty Start Date End Date Ramses Cleary MD PCP - General Family Practice 10/21/11 documented as of this encounter
--- OUTSIDE RECORDS SUMMARY | 2022-02-24 12:26 | XMS_ITS | Encounter Summary ---
:1935 Author Organization [facility] Address [address], [place] [address] Care Team Providers Name Role Phone Ramses Cleary MD Primary Care Provider Unavailable Reason for Visit Reason Comments Refill omeprazole Encounter Details Date Type Department Care Team Description 08/14/2014 Refill [facility] Ramses Cleary, Refill (omeprazole) [facility] Pr anjelica MURRAY [address] [place] [address] [address] [phone] [place] [address] Social History Tobacco Use Types Packs/Day Years [...] encounter Nursing Notes Adelaide Rehman RN - 08/14/2014 10:10 AM CST Ordered per Refill Standing Order/Protocol. Adelaide Rehman RN 08/14/2014, 10:[address] CLEANING SUPERVISOR Interface, [employer] Query - 08/14/2014 9:10 AM CST omeprazole (AKA PRILOSEC) 20 MG capsule [Pharmacy Med Name: OMEPRAZOLE 20MG CAPSULES] - REFILL: 12 months - PROTOCOL: Gastroenterology: Antiulcer - Proton Pump Inhibitors - RATIONALE: This refill should last until the patient is due for an office visit. - LAST QUALIFYING VISIT WITH YAMILE DUEÑAS R: 07/31/2014 - NEXT SCHEDULED VISIT: None - LAST REFILLED ON: 08/03/2013, QTY: 180, Refills: 3, Sig: take 1 cap by mouth two times a day. take1 hour before a meal. (changed but equivalent) Powered by [employer], Reference: [id number], 08/14/2014 9:10:[address] CAR CLEANING SUPERVISOR, Pool: PETER JEFFERY RN ([id number]) ROAD CAR CLEANING SUPERVISOR documented in this encounter Plan of Treatment Not on filedocumented as of this encounter Visit Diagnoses Not on filedocumented in this encounter Care Teams Turner Off Relationship Specialty Start Date End Date Ramses Cleary MD PCP - General Family Practice 10/21/11 documented as of this encounter
--- OUTSIDE RECORDS SUMMARY | 2022-02-24 12:26 | XMS_ITS | Encounter Summary ---
:1935 Author Organization [facility] Address [address] [address] Care Team Providers Name Role Phone Ramses Cleary MD Primary Care Provider Unavailable Encounter Details Date Type Department Care Team Description 12/28/2013 Orders Only [facility] BPH (b enign prostatic [place] [facility] hypertrophy) [address] [address] Social History Tobacco Use Types Packs/Day [...] encounter Progress Notes Deepika Arellano, RN - 12/29/2013 8:34 AM CDT Quick Note: Will discuss at upcoming appointment with Dr. Rodney tomorrow. Deepika Arellano RN 12/29/2013, 8:34 AM documented in this encounter Plan of Treatment Not on filedocumented as of this encounter Procedures Procedure Name Priority Date/Time Associated Diagnosis Comme nts PROSTATIC SPECIFIC Routine 12/28/2013 10:48 AM BPH (benign Re sults for this ANTIGEN (DIAGNOSTIC CDT prostatic procedur e are in F/U) hypertrophy) the results section. documented in this encounter Results (ABNORMAL) 6 mos (12/28/2013 10:48 AM CDT) athologist Signature Prostatic Spec 5.39 (H) 0.00 - [facility] Ag 4.00 ng/ml HOSPITAL Specimen Anatomical Collection Method Collection Time Receive d Time (Source) Location / / Volume Laterality 12/28/2013 10:48 12/28/2013 AM CDT 10:53 AM CDT [facility] - 12/28/2013 3:04 PM CD T Performed at [facility], [address] [place] [address] Waqas Rodney MD LAB_1 Performing Organization Address City/State/ZIP Code Phon e Number [address] [address] documented in this encounter Visit Diagnoses Diagnosis BPH (benign prostatic hypertrophy) Hypertrophy of prostate without urinary obstruction and other lower urinary tract symptoms (LUTS) documented in this encounter Care Teams Electrolysis Operator Relationship Specialty Start Date End Date Ramses Cleary MD PCP - General Family Practice 10/21/11 documented as of this encounter
--- OUTSIDE RECORDS SUMMARY | 2022-02-24 12:26 | XMS_ITS | Encounter Summary ---
:1935 Author Organization [facility] Address [address] [address] Care Team Providers Name Role Phone Ramses Cleary MD Primary Care Provider Unavailable Reason for Visit Reason Onset Date Comments QUESTIONS, GENERAL 12/07/2013 Encounter Details Date Type Department Care Team Description 12/07/2013 Telephone [facility] Waqas Rodney, QUESTIONS, GENERAL Urology [address] [place] [address] [address] [phone] [place], [place] [address] (Wo rk) Social History [...] encounter Nursing Notes Deepika Arellano, RN - 12/07/2013 11:32 AM CDT Left message for Silvina at [facility] informing her that our office has received the fax. Dr. Rodney will review order when he returns to clinic tomorrow. Deepika Arellano RN 12/07/2013, 11:34 AM Kami Catalan - 12/07/2013 10:39 AM CDT Reason for call? Silvina at [facility] called to check that a fax was received for the patient for catheter and supplies and is checking on the status of the request. Please call back. Best time to reach you? anytime Ok to leave a detailed message? yes Kami Catalan ....................................12/07/2013 10:39 AM documented in this encounter Plan of Treatment Not on filedocumented as of this encounter Visit Diagnoses Not on filedocumented in this encounter Care Teams Short Story Writer Relationship Specialty Start Date End Date Ramses Cleary MD PCP - General Family Practice 10/21/11 documented as of this encounter
--- OUTSIDE RECORDS SUMMARY | 2022-02-24 12:26 | XMS_ITS | Encounter Summary ---
:1935 [facility] Address [address] [address] Care Team Providers Name Role Phone Ramses Cleary MD Primary Care Provider Unavailable Reason for Visit Reason Onset Date Comments LAB RESULTS 07/11/2014 From 07/10 Encounter Details Date Type Department Care Team Description 07/11/2014 Telephone [facility] Ramses Cleary, LAB RESULTS (From Beatriz Tabor MD 07/10) Practice [address] [place] [place] [address] [place], [place] [phone] Social History Tobacco Use Types Packs/Day Years [...] encounter Nursing Notes Deepika Arellano RN - 07/12/2014 12:58 PM CST Called patient and notified him that the urine culture revealed Notes Recorded by Waqas Rodney MD on 07/12/2014 at 11:35 AM Has a urinary tract infection if not on antibiotics and started on Duricef 500 by mouth twice a day for 7 days. Patient would like the prescription sent to [facility] in [place], [place]. Prescription for Duricef has been called in. Patient agrees with the plan and verbalizes understanding. Deepika Arellano RN 07/12/2014, 1:01 PM CIATE PROFESSOR COMPUTER SCIENCE Ml Tim RN - 07/11/2014 3:44 PM CST Patient notified the results are not all back from the lab. He will be notified when the results arecompleted. Zaid verbalizes understanding. Ml Tim RN 07/11/2014, 3:59 PM CIATE PROFESSOR COMPUTER SCIENCE Aubrie Brown CMA - 07/11/2014 3:29 PM CST Routing to ordering provider. CIATE PROFESSOR COMPUTER SCIENCE Maryan Hong - 07/11/2014 3:25 PM CST Reason for call? Patient called to go over lab results from 07/10/14. Please call. Best time to reach you? Anytime Ok to leave a detailed message? Yes Maryan Hong ....................................07/11/2014 3:25 PM CIATE PROFESSOR COMPUTER SCIENCE documented in this encounter Plan of Treatment Not on filedocumented as of this encounter Visit Diagnoses Not on filedocumented in this encounter Care Teams Front Desk Officer Relationship Specialty Start Date End Date Ramses Cleary MD PCP - General Family Practice 10/21/11 documented as of this encounter
--- OUTSIDE RECORDS SUMMARY | 2022-02-24 12:26 | XMS_ITS | Encounter Summary ---
:1935 Author Organization [facility] Address [address] [address] Care Team Providers Name Role Phone Ramses Cleary MD Primary Care Provider Unavailable Reason for Visit Reason Comments Hearing Aid Encounter Details Date Type Department Care Team Description 09/27/2013 Office Visit [facility] Neural hearing loss, [facility] MICHAEL Roach bilateral ([facility] Dx) [address] [place] [id number] Social History Tobacco Use Types Packs/Day Years [...] encounter Progress Notes Mala Chaudhry AU.D. - 09/27/2013 5:23 PM CDT The Coding Spec performs an Otoscopic examination of both ear canals. Cerumen was successfully removed from both the right and the left ear canals. Both hearing instruments are cleaned and checked. Hearing aid tubing is replaced for both hearing instruments. Microphone filters and wax filters are replaced and earmolds are thoroughly cleaned for both the right and left ears. A biologic listening checkwas performed. The hearing instrument settings are electroacoustically verified for appropriate power, clarity and performance. The patient was counseled regarding proper care, use and maintenance of hearing instruments. The patient agrees to follow up as scheduled for maintenance or sooner if needed. MICHAEL Nicolas .................... 09/27/2013 5:23 PM documented in this encounter Plan of Treatment Not on filedocumented as of this encounter Visit Diagnoses Diagnosis Neural hearing loss, bilateral - Primary documented in this encounter Care Teams Order Processing Clerk Relationship Specialty Start Date End Date Ramses Cleary MD PCP - General Family Practice 10/21/11 documented as of this encounter
--- OUTSIDE RECORDS SUMMARY | 2022-02-24 12:26 | XMS_ITS | Encounter Summary ---
:1935 Author Organization [facility] Address [address], [place] [address] Care Team Providers Name Role Phone Ramses Cleary MD Primary Care Provider Unavailable Encounter Details Date Type Department Care Team Description 08/04/2013 Surgery LV Operating Room Mingo Santana, EXCISION AURICULAR BASAL [address] [address] [phone] [place] [address] Social History Tobacco Use Types Packs/Day Years [...] Sign Reading Time Taken Comments Blood Pressure 130/72 08/04/2013 7:00 AM LITERACY SPECIALIST Pulse 67 08/04/2013 7:00 AM LITERACY SPECIALIST Temperature 37 ??C (98.6 ??F) 08/04/2013 7:00 AM LITERACY SPECIALIST Respiratory Rate 20 08/04/2013 7:00 AM LITERACY SPECIALIST Oxygen Saturation 97% 08/04/2013 7:00 AM LITERACY SPECIALIST Inhaled Oxygen Concentration - - Weight 104.3 kg (230 lb) 08/01/2013 1:48 PM LITERACY SPECIALIST Height 175.3 cm (5' 9) 08/01/2013 1:48 PM LITERACY SPECIALIST Body Mass Index 33.97 08/01/2013 1:48 PM LITERACY SPECIALIST documented in this encounter Discharge Instructions Discharge InstructionsAnusha Bishop RN - 08/04/2013 10:01 AM CST Contact Information [address] [address] [address] or [phone] Same Day Surgery, M-F 7am to 5pm: [phone] Clinic Phone Numbers [facility] [phone] Emergency & Urgently Needed Care: For emergencies call 911 and/or get medical help right away. If you are a [facility] member and have medical needs after clinic hours you may call the [facility] [phone] or . Special Instruction: : Rest today Resume normal activities gradually and as tolerated No driving for 24 hours after surgery or while taking narcotics, Diet: Resume pre-hospital diet, progress slowly, Wound/Incision: May shower tomorrow, May apply dressings as needed Information given on: Treatment, diagnosis, surgery, Danger signs to watch for: Temperature above 101 degrees and/or chills Increased redness, drainage or swelling Persistent nausea Increased warmth, redness, swelling or pain in either leg Increased pain in surgical site or affected area After anesthesia: Rest and take it easy today, Avoid straining, heavy lifting, strenuous or hazardous activities, You must have a responsible adult with you for the next 24 hours. Have them close by when you are up and about., DO NOT DRIVE any vehicle or operate mechanical equipment for 24 hours, Do not make any important decisions for 24 hours and No alcohol for 24 hours or while taking narcotics We hope you had a positive experience and that you can definitely recommend [facility] to your family and friends. RACY SPECIALIST documented in this encounter Medications at Time of Discharge Medication Sig Dispensed Refills Start Date End Date dorzolamide (AKA [The details of the 0 TRUSOPT) 2 % eye drop medication are not solutionIndications: available because Increased Intraocular there are pending Pressure changes by a home health clinician.] fluticasone (AKA Place 1 [place] into 0 08/03/2013 FLONASE) 50 MCG/ACT both nostrils two nasal times a day. solutionIndications: Indications: Allergic Allergic Rhinitis Rhinitis Multiple [The details of the 0 Vitamins-Minerals (ICAPS medication are not AREDS FORMULA available because OR)Indications: there are pending supplement changes by a home health clinician.] bacitracin 500 UNIT/GM Apply to L ear bid 15 g 0 08/0408/11/2013 ointment times 7 days acetaminophen (AKA Take 1,000 mg by 0 10/29/2015 TYLENOL EXTRA STRENGTH) mouth two times a 500 MG tablet day. ALBUterol sulfate hfa Inhale 2 Puffs by 8.5 g 3 014 04/14/2014 108 (90 BASE) MCG/ACT mouth every 4 hours inhaler as needed for Wheezing. allopurinol (AKA Take 1 Tab by mouth 90 Tab 0 05/24/2013 08/25/2013 ZYLOPRIM) 100 MG tablet daily. budesonide-formoterol Inhale 2 Puffs by 10.2 g 0 014 01/16/2016 (SYMBICORT) 160-4.5 mouth two times a MCG/ACT inhaler day. guaiFENesin (AKA Take 1,200 mg by 0 MUCINEX) 600 MG 12 hour mouth two times a release tablet day. Reported on 10/13/2016 ibuprofen (AKA MOTRIN) Take 200 mg by mouth 0 10/29/2015 200 MG tablet every 4 hours as needed for Pain. omeprazole (AKA Take 1 Cap by mouth 180 Cap 3 08/03/2013 08/14/2014 PRILOSEC) 20 MG capsule two times a day. Take 1 hour before a meal. documented as of this encounter Progress Notes Asif Kenny MD - 08/04/2013 3:41 PM CST [facility] Post-Operative Anesthesia Note Admit Date/Time: 08/04/2013 6:35 AM Attending Prov: Post-Op Diagnosis Codes: * Facial lesion [709.9] Post Op Status: Filed Vitals: 08/04/13 0940 08/04/13 0945 08/04/13 0950 08/04/13 1020 BP: 114/62 114/62 116/60 132/65 Pulse: 68 68 69 64 Temp: 97.8 ??F (36.6 ??C) 97.8 ??F (36.6 ??C) 97.8 ??F (36.6 ??C) TempSrc: Temporal Artery Temporal Artery Temporal Artery Resp: 16 16 16 16 Height: Weight: SpO2: 93% 93% 93% 94% Vital signs stable and No apparent anesthesia complications Report completed by: Asif Kenny MD --- End of Report --- RACY SPECIALIST Asif Kenny MD - 08/04/2013 7:19 AM CST [facility] Pre-Anesthesia Evaluation and Plan Surgery Date: 08/04/2013 Age: 78 year(s) Patient Vitals for the past 24 hrs: BP Temp Temp src Pulse Resp SpO2 08/04/13 0700 130/72 mmHg 98.6 ??F (37 ??C) Temporal Art 67 20 97 % Height: 08/01/13 : 5' 9 (1.753 m) Weight: Wt Readings from Last 1 Encounters: 08/01/13 104.327 kg (230 lb) Allergies Allergen Reactions ??? Banana Other, see comments Throat swelling, wheezing Also avoids melons ??? Excedrin (Diphenhydramine) Breathing Difficulty Prior to Admission Medications Outpatient Medications Last Dose Informant Patient Reported? Taking? ALBUterol sulfate hfa 108 (90 BASE) MCG/ACT inhaler 08/04/2013 No Yes Sig: Inhale 2 Puffs by mouth every 4 hours as needed for Wheezing. Multiple Vitamins-Minerals (ICAPS AREDS FORMULA OR) 08/04/2013 Self Yes Yes Si Tab two times a day. acetaminophen (AKA TYLENOL EXTRA STRENGTH) 500 MG tablet 08/04/2013 Self Yes Yes Sig: Take 1,000 mg by mouth two times a day. allopurinol (AKA ZYLOPRIM) 100 MG tablet 08/04/2013 No Yes Sig: Take 1 Tab by mouth daily. budesonide-formoterol (SYMBICORT) 160-4.5 MCG/ACT inhaler 08/04/2013 No Yes Sig: Inhale 2 Puffs by mouth two times a day. dorzolamide (AKA TRUSOPT) 2 % eye drop solution 08/04/2013 Yes Yes Sig: Apply or instill 1 Drop into both eyes two times a day. fluticasone (AKA FLONASE) 50 MCG/ACT nasal solution 08/04/2013 Yes Yes Sig: Apply or instill 2 Sprays into both nostrils two times a day. guaiFENesin (AKA MUCINEX) 600 MG 12 hour release tablet 08/04/2013 Self Yes Yes Sig: Take 1,200 mg by mouth two times a day. ibuprofen (AKA MOTRIN) 200 MG tablet 07/31 Self Yes Yes Sig: Take 200 mg by mouth every 4 hours as needed for Pain. omeprazole (AKA PRILOSEC) 20 MG capsule 08/04/2013 No Yes Sig: Take 1 Cap by mouth two times a day. Take 1 hour before a meal. Facility-Administered Medications: None Beta Kojo: patient not taking beta kojo. EKG:reviewed, proceed with anesthetic plan. Current Facility-Administered Medications Medication Dose Route Frequency ??? bacitracin-polymyxin b (aka POLYSPORIN) 500-38331 UNIT/GM ointment Intra-Op ??? fentaNYL (aka SUBLIMAZE) injection 50-100 mcg 50-100 mcg IV ONCE PRN ??? lactated ringers infusion 1,000 mL 1,000 mL IV Continuous ??? lidocaine (aka XYLOCAINE) 1 % injection 0.1-1 mL 0.1-1 mL Injection Once ??? lidocaine-epinephrine 1-1:052139 % injection Intra-Op ??? midazolam (aka VERSED) injection 1-2 mg 1-2 mg IV ONCE PRN ??? NaCl PF 0.9% injection 3 mL 3 mL IV PRN with procedures Exam: Airway: Mallampati II Dentition: Dentures or Partials NO Poor dentition: No Neck ROM: Normal Lungs: Lungs clear bilaterally Heart: WNL, RRR (regular rate and rhythm), no murmurs heard NPO Solids: > 6 hours Laboratory Data: No results found for this or any previous visit (from the past 72 hour(s)). POCT Glucose (mg/dL): (not recorded) Other Results: Past Medical History Diagnosis Date ??? 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 Cataracts, bilateral Morbidly Obese Assessment and Plan: ASA: II MAC Discussed plan, risks, benefits, alternatives and side effects with patient/responsible constitution party. All questions answered. Asfi Kenny MD RACY SPECIALIST documented in this encounter Procedure Notes Mingo Santana MD - 08/04/2013 9:37 AM CST [facility] Brief Operative Progress Note Surgery Date: 08/04/2013 Surgeon and Assistants: Surgeon(s) and Role: Panel 1: * Mingo Santana MD - Primary Panel 2: * Mingo Santana MD - Primary Post-Op Diagnosis Codes: * Facial lesion [709.9] Procedure: Procedure(s) (LRB): --M 5229-- EXCISION OF LESION EAR (Left) POST AURICULAR SKIN GRAFT FULL THICKNESS SKIN (Left) EBL: none mL Specimens: skin Complications: none Findings: none Mingo Santana MD --- End of Report --- RACY SPECIALIST Mingo Santana MD - 08/04/2013 12:00 AM CST DATE OF SERVICE: 08/04/2013 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 POSTOPERATIVE DIAGNOSIS: Left auricular basal cell cancer. PROCEDURE: 1. Excision 2 x 1 cm superior auricular basal cell cancer. 2. Free skin graft for closure. COMPLICATIONS: None. PROCEDURE: The patient was brought to the operating room, placed in the supine position. The left ear was prepped and draped in a sterile fashion. 1 percent Xylocaine was injected in the superior helical fold and using a #15 blade, an incision was made 2 x 1 cm encompassing the superior aspect of the helical fold. Frozen section analysis revealed free margins. Given the size and location, primary closure was not possible. Postauricular skin graft, slightly less and corresponding size was then harvested and the donor site closed with interrupted 5-0 nylon. The graft was then secured using meticulousclosure of 5-0 nylon. Then secured to the underlying perichondrium using a through and through stitch. Bacitracin ointment was applied. The patient returned to the recovery room in satisfactory condition. Mingo Santana MD BFD:michel Dictated: 08/04/2013 10:48:45 Transcribed: 08/04/2013 14:24:34 Job: [id number] Doc: [id number] cc: RACY SPECIALIST [facility], Provider - 08/04/2013 12:00 AM CST RACY SPECIALIST [facility], Provider - 08/04/2013 12:00 AM CSTAssociated Order(s): EKG IP RACY SPECIALIST documented in this encounter OR Notes &P - [facility], Provider - 08/04/2013 12:00 AM CST RACY SPECIALIST documented in this encounter Miscellaneous Notes [facility], Provider - 08/04/2013 12:00 AM CST RACY SPECIALIST [facility], Provider - 08/04/2013 12:00 AM CST RACY SPECIALIST documented in this encounter Plan of Treatment Not on filedocumented as of this encounter Procedures Procedure Name Priority Date/Time Associated Comments Diagnosis EXCISION SOFT Same Day Surgery 08/04/2013 8:26 Facial lesion TISSUE LESION(S) AM LITERACY SPECIALIST FACE SKIN GRAFT FULL Same Day Surgery 08/04/2013 8:26 Facial lesion THICKNESS SKIN AM LITERACY SPECIALIST SURGICAL PATH Routine 08/04/2013 6:00 Results for this AM LITERACY SPECIALIST procedure are i n the results section. EKG IP 08/04/2013 12:00 Results for this AM LITERACY SPECIALIST procedure are i n the results section. documented in this encounter Results SURGICAL PATH (08/04/2013 6:00 AM LITERACY SPECIALIST) [facility] gist Method Time Signature Histology (NOTE) [facility] Final Report [facility] Patient Name: ZAID RUTLEDGE Taken: 08/04/2013 Received: 08/04/2013 Reported: 08/05/2013 Physician(s): Mingo Santana ? Final Pathologic Diagnosis Skin, right ear, excision -- ?1. ??Basal cell carcinoma, superficial-solid and focal ly sclerosing type ?2. ??The tumor extends to the anterior tip and touches the inferior margin in the anterior half and center, see comment Comments In the nonfrozen material and in permanent sections, the efren or is noted at the anterior tip and it touches the inferior margin in the anterior half and center of ellipse. [facility]/08/05/2013 Electronically Signed Out By ? Kee Becerra MD Procedures/Addenda Clinical History LEFT EAR BIOPSY BASAL CELL CARCINOMA Gross Description To the The specimen is received fresh and labeled with the p atient's name and left ear lesion. ??The specimen consists of a 1.0 x 0.9 cm pink-white skin ellipse excised to depth of 0.3 cm. ??The sp ecimen is oriented by the surgeon and is inked as follows: Superior-re d, inferior-black, anterior tip-yellow, posterior tip-green. ?? There are two ulcerated pink-red lesion on the skin surface, 0.3 and 0 .6 x 0.2 cm. ??The inferior margin is approximately 1 mm and the supe rior margin is approximately 2 mm from these lesions. ??Two representati ve cross sections are submitted from the center and anterior half of the specimen on one marylou for frozen section diagnosis. ??The sp ecimen is entirely submitted in five cassettes. ??Cassette gonzales 1. ??Frozen section remnant -- loss prevention representative central cross sections 2. ??Anterior tip 3. ??Anterior half 4. ??Posterior half 5. 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 ??(SP, This test was performed at [facility], [address] [place] [address], [place], [address].) Microscopic Description Microscopic examination is performed on seven slides. ?? snp/08/05/2013 Kee Becerra MD [facility] Department of Pathology [address] [place], [place] ??[address] Specimen Anatomical Collection Method Collection Time Receive d Time (Source) Location / / Volume Laterality EXCISION OF SKIN / 08/04/2013 6:00 AM Unknown LITERACY SPECIALIST 12:19 PM LITERACY SPECIALIST Mingo Santana MD LAB_1 Performing Organization Address City/State/ZIP Code Phon e Number [address] [phone] EKG IP (08/04/2013 12:00 AM LITERACY SPECIALIST) Specimen (Source) Anatomical Location Collection Method / Collectio n Time Received Time / Laterality Volume 08/04/2013 Narrative This result has an attachment that is no t available. Transcriptions [facility], Provider - 08/04/2013 12:00 AM CST Provider [facility] EKG documented in this encounter Visit Diagnoses Diagnosis Facial lesion Unspecified disorder of skin and subcuta neous tissue documented in this encounter Administered Medications Inactive Administered Medications - up to 3 most recent administrations Medication Order MAR Action Action Date Dose Rate Site bacitracin-polymyxin b (aka Given 08/04/2013 9:15 AM LITERACY SPECIALIST POLYSPORIN) 500-12819 UNIT/GM ointment INTRA-OP, Starting on Ana 08/04/13 at 0640, For 1 dose, Verify Route and Dose with Surgeon Prior to Administration lidocaine-epinephrine 1-1:302889 % injec tion Given 08/04/2013 9:15 AM LITERACY SPECIALIST 1 mL INTRA-OP, Starting on Ana 08/04/13 at 0640, For 1 dose, Verify Route and Dose with Surgeon Prior to Administration documented in this encounter Active and Recently Administered Medications Times are shown in LITERACY SPECIALIST. Scheduled Medication Order 08/02/2013 08/03/2013 08/04/2013 bacitracin-polymyxin b (aka POLYSPORIN) 500-00800 UNIT/GM ointme nt (CANCELED) 0915 (Given - Provider: Katharina Dunbar, RN) INTRA-OP, 1 dose, Starting Ana 08/04/13 at 0640, Until Discontinu ed lidocaine-epinephrine 1-1:783536 % injection (CANCELED) 0915 (Given - Provider: Katharina Dunbar, EULOGIO) INTRA-OP, 1 dose, Starting Ana 08/04/13 at 0640, Until Discontinu ed documented in this encounter Care Teams Photographer'S Assistant Relationship Specialty Start Date End Date Ramses Cleary MD PCP - General Family Practice 10/21/11 documented as of this encounter
--- OUTSIDE RECORDS SUMMARY | 2022-02-24 12:26 | XMS_ITS | Encounter Summary ---
:1935 Author Organization [facility] Address [address], [place] [address] Care Team Providers Name Role Phone Ramses Cleary MD Primary Care Provider Unavailable Encounter Details Date Type Department Care Team Description 08/14/2014 Notes/Orders [facility] Ramses Cleary for Beatriz Shipman MD long-term (current) Practice [address] use of other [address] medications ([place] [address] [place], [place] Dx) [phone] Social History Tobacco Use Types Packs/Day Years [...] documented as of this encounter Nursing Notes Shruthi Alcantar - 08/16/2014 10:46 AM CST per standing order Letter sent for scheduling needs. Shruthi Alcantar 08/16/2014, 10:46 AM TIME CAPTIONER Interface, Out Waffle Prov Query - 08/14/2014 9:10 AM CST - Note on ALANINE AMINOTRANSFERASE (ALT): Ignore ALT check if patient has had an AST reading in the last 12 months. ORDER THE FOLLOWING: - ALANINE AMINOTRANSFERASE (ALT): Pended to encounter. SCHEDULE THE FOLLOWING: - OFFICE VISIT BY: Now (Due as of 06/26/2014 for budesonide-formoterol (SYMBICORT) 160-4.5 MCG/ACT inhaler) - ALANINE AMINOTRANSFERASE (ALT) BY: Now (Due as of 01/01/2013 for allopurinol (AKA ZYLOPRIM) 100 MGtablet) - LAST QUALIFYING VISIT WITH YAMILE DUEÑAS R: 07/31/2014 - NEXT SCHEDULED VISIT: None - NEXT LAB APPOINTMENT: None Powered by [employer], Reference: [id number], 08/14/2014 9:10:07 AM REALTIME CAPTIONER, Pool: PETER JEFFERY RN ([id number]) TIME CAPTIONER documented in this encounter Plan of Treatment Not on filedocumented as of this encounter Results ALT (SGPT) (09/20/2014 11:35 AM CDT) athologist Signature ALT (SGPT) 68 12 - 78 U/L [facility] Specimen Anatomical Collection Method Collection Time Receive d Time (Source) Location / / Volume Laterality 09/20/2014 11:35 09/20/2014 AM CDT 11:40 AM CDT Narrative [facility] - 09/20/2014 12:54 PM C DT Performed at [facility] [address], [address] [place] [address] Ramses Cleary MD LAB_1 Performing Organization Address City/State/ZIP Code Phon e Number [address] [address] documented in this encounter Visit Diagnoses Diagnosis Encounter for long-term (current) use of other medications - Primary Encounter for long-term (current) use of other medications documented in this encounter Care Teams Direct Care Worker Relationship Specialty Start Date End Date Ramses Cleary MD PCP - General Family Practice 10/21/11 documented as of this encounter
--- OUTSIDE RECORDS SUMMARY | 2022-02-24 12:26 | XMS_ITS | Encounter Summary ---
:1935 Author Organization [facility] Address [address], [place] [address] Care Team Providers Name Role Phone Ramses Cleary MD Primary Care Provider Unavailable Reason for Visit Reason Onset Date Comments Labs Needed 03/30/2014 PSA needed Encounter Details Date Type Department Care Team Description 03/30/2014 Telephone [facility] Waqas Rodney Needed (PSA [place] Edson Griffith MD needed ) [facility] [address] [place] [address] [place], [place] [phone] Social History Tobacco Use Types Packs/Day Years [...] on filedocumented in this encounter Care Teams Reservations Sales Agent Relationship Specialty Start Date End Date Ramses Cleary MD PCP - General Family Practice 10/21/11 documented as of this encounter
--- OUTSIDE RECORDS SUMMARY | 2022-02-24 12:26 | XMS_ITS | Encounter Summary ---
:1935 Author Organization [facility] Address [address], [place] [address] Care Team Providers Name Role Phone Ramses Cleary MD Primary Care Provider Unavailable Reason for Visit Reason Comments Refill Encounter Details Date Type Department Care Team Description 08/14/2014 Refill [facility] Alexei Cleary MD Refill [facility] [address] [place] [address] [place] [address] Social History Tobacco Use Types Packs/Day Years [...] of this encounter Nursing Notes Interface, Out ONOFFMIX (?) Prov Query - 08/14/2014 9:10 AM CST allopurinol (AKA ZYLOPRIM) 100 MG tablet [Pharmacy Med Name: ALLOPURINOL 100MG TABLETS] - VIOLATION: ALT is overdue (performed 32 months ago, required every 12 months) - PROTOCOL: Endocrinology: Gout Agents - Allopurinol - LAST QUALIFYING VISIT WITH YAMILE DUEÑAS R: 07/31/2014 - NEXT SCHEDULED VISIT: None - LAST REFILLED ON: 08/25/2013, QTY: 90, Refills: 3, Sig: take 1 tab by mouth daily. (changed but equivalent) - Cr: 1.03mg/dL on 07/28/2014 - ALT: 63.0U/L on 01/07/2012 - PLT: 185.0 on 07/28/2014 - HGB: 16.5g/dL on 07/28/2014 - HCT: 47.6% on 07/28/2014 - RBC: 5.22M/uL on 07/28/2014 - RDW: 12.9% on 07/28/2014 - WBC: 6.5billion cells/L on 07/28/2014 Powered by [email or web address], Reference: [id number], 08/14/2014 9:10:07 AM DISPLAY TRIMMER, Pool: PETER JEFFERY RN ([id number]) LAY TRIMMER documented in this encounter Plan of Treatment Not on filedocumented as of this encounter Visit Diagnoses Not on filedocumented in this encounter Care Teams Joint Sealer Relationship Specialty Start Date End Date Ramses Cleary MD PCP - General Family Practice 10/21/11 documented as of this encounter
--- OUTSIDE RECORDS SUMMARY | 2022-02-24 12:26 | XMS_ITS | Encounter Summary ---
:1935 Author Organization [facility] Address [address] [place] [address] Care Team Providers Name Role Phone Ramses Cleary MD Primary Care Provider Unavailable Reason for Visit Reason Onset Date Comments Orders Needed 07/10/2014 Patient thinks he guzman s a UTI. He would like lab order in for a urine. Encounter Details Date Type Department Care Team Description 07/10/2014 Telephone [facility] Ramses Cleary, Orders Needed Beatriz Tabor MD (Patient thinks he Practice [address] has a UTI. He would [address] [place] [address] [place], [place] a urine.) [phone] Social History Tobacco Use Types Packs/Day [...] encounter Progress Notes Waqas Rodney MD - 07/10/2014 4:15 PM PIG LEAD MELTER HELPER Addended by: WAQAS RODNEY on: 07/10/2014 04:15 PM Modules accepted: Orders LEAD MELTER HELPER documented in this encounter Nursing Notes Yumiko Brown CMA - 07/10/2014 2:37 PM CST Pt called back and states dysuria x 1 day. Pt would like UA. Order placed. Pt instructed to stop at [facility] [facility] today for Lab Only appointment for UA. Pt informed that Dr. Rodney will receive lab results and contact Pt once available. Pt verbalizes understanding and agrees. Yumiko Cole 07/10/2014, 2:38 PM LEAD MELTER HELPER Ml Tim RN - 07/10/2014 1:15 PM CST Call placed to patient to get more information regarding his UTI symptoms. Message left for Zaid to call the clinic. Ml Tim RN 07/10/2014, 1:16 PM LEAD MELTER HELPER Ambar Martins - 07/10/2014 12:47 PM CST Reason for call? Patient would like to have an order put in for a urine. He thinks he has a UTI. Please call him to confirm. Best time to reach you? anytime Ok to leave a detailed message? yes Ambar Martins ....................................07/10/2014 12:47 PM LEAD MELTER HELPER documented in this encounter Plan of Treatment Not on filedocumented as of this encounter Results (ABNORMAL) UA MICRO IF (07/10/2014 3:51 PM PIG LEAD MELTER HELPER) [facility] Method Time Signature Urine Color Yellow [facility] Urine Clarity Clear [facility] Sp Gr 1.020 1.005 - [facility] 1.030 [facility] Leuk Sml (A) NEG [facility] Nitr Positive NEG [facility] (A) [facility] pH 5.5 4.5 - 8.0 [facility] Prot Negative NEG mg/dl [facility] Gluc Negative NEG [facility] Ket Negative NEG [facility] Urob 0.2 0.2 - 1.0 [facility] EU/dl [facility] Bili Negative NEG [facility] Blood Negative [facility] Specimen Anatomical Collection Method Collection Time Receive d Time (Source) Location / / Volume Laterality 07/10/2014 3:51 PM 5 3:56 PIG LEAD MELTER HELPER PM PIG LEAD MELTER HELPER Narrative [facility] - 07/10/2014 4:02 PM CS T Performed at [facility], [address] [place] [address] Waqas Rodney MD LAB_1 Performing Organization Address City/State/ZIP Code Phon e Number [facility] [address] [place] [address] [address] documented in this encounter Visit Diagnoses Diagnosis UTI (lower urinary tract infection) - Pr imary Urinary tract infection, site not specif ied UTI (lower urinary tract infection) - Pr imary Urinary tract infection, site not specif ied documented in this encounter Care Teams Laborer Tan House Relationship Specialty Start Date End Date Ramses Cleary MD PCP - General Family Practice 10/21/11 documented as of this encounter
--- OUTSIDE RECORDS SUMMARY | 2022-02-24 12:26 | XMS_ITS | Encounter Summary ---
:1935 Author Organization [facility] Address [address], [place] [address] Care Team Providers Name Role Phone Ramses Cleary MD Primary Care Provider Unavailable Encounter Details Date Type Department Care Team Description 04/10/2014 Orders Only [facility] Clinic Primar y prostate [facility] [facility] adenocarcinoma [address] [place] [place] [address] Social History Tobacco Use Types Packs/Day [...] encounter Progress Notes Deepika Arellano, RN - 04/11/2014 9:17 AM CDT Quick Note: Will discuss with Dr. Rodney at his upcoming appt on 04-14-2014. Deepika Arellano RN 04/11/2014, 9:17 AM documented in this encounter Plan of Treatment Not on filedocumented as of this encounter Procedures Procedure Name Priority Date/Time Associated Diagnosis Comme nts PROSTATIC SPECIFIC Routine 04/10/2014 1:41 PM Primary prostate Results for this ANTIGEN CDT adenocarcinoma procedure are in (DIAGNOSTIC F/U) the results section. documented in this encounter Results (ABNORMAL) PROSTATIC SPECIFIC ANTIGEN (F/U) (04/10/2014 1:41 PM CDT) athologist Signature Prostatic Spec 4.3 (H) 0.00 - [facility] Ag 4.00 ng/ml HOSPITAL Specimen Anatomical Collection Method Collection Time Receive d Time (Source) Location / / Volume Laterality 04/10/2014 1:41 PM 4 1:46 CDT PM CDT [facility] - 04/10/2014 2:49 PM CD T Performed at [facility], [address] [place] [address] Waqas Rodney MD LAB_1 Performing Organization Address City/State/ZIP Code Phon e Number [address] [address] documented in this encounter Visit Diagnoses Diagnosis Primary prostate adenocarcinoma (HRC) Malignant neoplasm of prostate documented in this encounter Care Teams Space Control Agent Relationship Specialty Start Date End Date Ramses Cleary MD PCP - General Family Practice 10/21/11 documented as of this encounter
--- OUTSIDE RECORDS SUMMARY | 2022-02-24 12:26 | XMS_ITS | Encounter Summary ---
:1935 Author Organization [facility] Address [address], [place] [address] Care Team Providers Name Role Phone Ramses Cleary MD Primary Care Provider Unavailable Reason for Visit Reason Comments PRE-OP EXAM Follow Up Medication Encounter Details Date Type Department Care Team Description 08/03/2013 Office Visit [facility] Ramses Cleary [facility] er specified pre-operative examination (Primary Dx); Beatriz Shipman MD Basal cell carcinoma; Practice [address] UNSPECIFIED ASTHMA [address] [place] [place] [address] [place], [place] [phone] Social History Tobacco Use Types Packs/Day Years [...] Sign Reading Time Taken Comments Blood Pressure 124/84 08/03/2013 8:43 AM ORGANIC CHEMISTRY PROFESSOR Pulse 67 08/03/2013 8:43 AM ORGANIC CHEMISTRY PROFESSOR Temperature 36.6 ??C (97.8 ??F) 08/03/2013 8:43 AM ORGANIC CHEMISTRY PROFESSOR Respiratory Rate 18 08/03/2013 8:43 AM ORGANIC CHEMISTRY PROFESSOR Oxygen Saturation 96% 08/03/2013 8:43 AM ORGANIC CHEMISTRY PROFESSOR Inhaled Oxygen Concentration - - Weight 108.4 kg (239 lb) 08/03/2013 8:43 AM ORGANIC CHEMISTRY PROFESSOR Height 175.3 cm (5' 9) 08/03/2013 8:43 AM ORGANIC CHEMISTRY PROFESSOR Body Mass Index 35.29 08/03/2013 8:43 AM ORGANIC CHEMISTRY PROFESSOR documented in this encounter Patient Instructions Patient InstructionsTeresa Orta, LICENSED PROSTHETIST - 08/03/2013 8:42 AM CST Patient is Active with Online Patient Services, but needs username and password reset. OK to proceed with surgery pending the results of the EKG> NIC CHEMISTRY PROFESSOR documented in this encounter Progress Notes Ramses Cleary MD - 08/03/2013 8:48 AM CST Zaid Rutledge, medical record [id number], is a 78 yr year old male who is here for presurgical risk assessment. He is scheduled for surgery at [facility] on 08/04/[address] WEAVER. HPI: Had recent biopsy of left ear. This was a basal cell carcinoma. Scheduled for surgical excisionat [facility]. His primary physician is Ramses Cleary MD. Procedure: excision of basal cell on left ear. Allergies Allergen Reactions ??? Banana Other, see comments Throat swelling, wheezing Also avoids melons ??? Excedrin (Diphenhydramine) Breathing Difficulty Habits: History Substance Use Topics ??? Smoking status: Former Smoker Quit date: 12/24/1997 ??? Smokeless tobacco: Never Used ??? Alcohol Use: Yes 0 - 14 drink(s) per week Comment: moderate Past Medical History Diagnosis Date ??? Other [...] Right 08 rotator cuff. ??? Left tka Patient Active Problem List Diagnosis ??? SPINAL [...] omeprazole (AKA PRILOSEC) 20 MG capsule Take 2 Caps by mouth two times a day. Take 1 hour beforea meal. PRE-OP QUESTIONS Tightening or pressure in chest with activity: no Swelling of feet or ankles at times: no Wakes at night with shortness of breath : no Difficulty sleeping flat at night: no Troubled by shortness of breath when: Walking on the level??? no Climbing a flight of stairs: YES (2 flights) Sleeping at night: no Get pains in the calves of the legs when walking no Chest ever sound wheezy or whistling: no Cough, runny nose, or cold symptoms??? Now: no In the last two weeks: no Have a chronic cough: no You or any relatives had a problem with bleeding: no Taken any aspirin (or products containing aspirin) in the last two weeks: no Problem with anemia or been told to take iron pills: no You or any relatives have had a problem with anesthesia: no History of sleep apnea or use of CPAP at home: no Have active tuberculosis: no Other: no PHYSICAL EXAMINATION The patient appears healthy,in no acute distress,mobile without assistance BP 124/84 Pulse 67 Temp(Src) 97.8 ??F (36.6 ??C) (Oral) Resp 18 Ht 5' 9 (1.753 m) Wt 239 lb (108.41 kg) BMI 35.28 kg/m2 SpO2 96% HEENT: Eyes, ears, nose and throat are unremarkable. and there is a red area on the superior aspect of his left outer ear Neck: Thyroid not enlarged. No bruits. No jugular venous distention Cardiovascular: regular rate and rhythm, normal S1 and S2 without murmur or click Chest/Lungs: clear to auscultation, no wheezes or rales Abdomen: Soft, non-tender, no masses, no hepatomegaly or splenomegaly. Extremities: No cyanosis, clubbing or edema. Pulses intact. Neurologic: Alert and oriented to person, place and time. Sensory, motor and cerebellar exams are intact. Skin: No rash EKG: normal sinus rhythm, no ischemic changes LAB: None indicated Assessment: No contraindication to surgery. No major medical issues for planned procedure. Patient is advised to avoid aspirin for 7 days prior to surgery and avoid ibuprofen products for 5 days prior to surgery Signed by Ramses Cleary MD This preoperative assessment was signed electronically on 08/03/2013 NIC CHEMISTRY PROFESSOR documented in this encounter Plan of Treatment Not on filedocumented as of this encounter Visit Diagnoses Diagnosis Other specified pre-operative examinatio n - Primary Basal cell carcinoma Basal cell carcinoma of skin, site unspe cified UNSPECIFIED ASTHMA Unspecified asthma documented in this encounter Care Teams Clinical Care Coordinator Relationship Specialty Start Date End Date Ramses Cleary MD PCP - General Family Practice 10/21/11 documented as of this encounter
--- OUTSIDE RECORDS SUMMARY | 2022-02-24 12:26 | XMS_ITS | Encounter Summary ---
:1935 Author Organization [facility] Address [address], [place] [address] Care Team Providers Name Role Phone Ramses Cleary MD Primary Care Provider Unavailable Reason for Visit Reason Comments Hearing Aid Encounter Details Date Type Department Care Team Description 02/07/[address] [facility] Isauro Mono ry hearing loss, [facility] & Michaela S, A U.D. bilateral ([facility] [address] [place] [address] [place], [place] [phone] Social History Tobacco Use Types Packs/Day Years [...] as of this encounter Progress Notes Michaela Mon AU.D. - 02/07/2014 2:33 PM CDT Patient seen today for a hearing aid check. Cerumen removed, bilaterally Tubing was changed for both hearing aids Re=paired his ICOM and cellphone Recheck as scheduled AuD. Rayna, [facility] Clinical Owner [employer] documented in this encounter Plan of Treatment Not on filedocumented as of this encounter Visit Diagnoses Diagnosis Sensory hearing loss, bilateral - Primar y documented in this encounter Care Teams Box Office Agent Relationship Specialty Start Date End Date Ramses Cleary MD PCP - General Family Practice 10/21/11 documented as of this encounter
--- OUTSIDE RECORDS SUMMARY | 2022-02-24 12:26 | XMS_ITS | Encounter Summary ---
:1935 Author Organization [facility] Address [address], [place] [address] Care Team Providers Name Role Phone Ramses Cleary MD Primary Care Provider Unavailable Reason for Visit Reason Comments PROSTATE EXAM(ROUTINE/YEARLY) Encounter Details Date Type Department Care Team Description 12/30/2013 Office Visit [facility] Waqas Rodney [facility] MD Gladis (Primary Dx) [address] [facility] [address] [place], [place] [address] [address] [place], [place] [phone] [address] Social History Tobacco Use Types Packs/Day Years [...] Sign Reading Time Taken Comments Blood Pressure 124/72 12/30/2013 8:17 AM CDT Pulse - - Temperature - - Respiratory Rate - - Oxygen Saturation - - Inhaled Oxygen Concentration - - Weight - - Height - - Body Mass Index - - documented in this encounter Patient Instructions Patient InstructionsStWaqas haynes MD - 12/30/2013 8:34 AM CDT Other tests: PSA up to 5.4 A: low risk prostate cancer. PSA up slightly. On SIC clean tech with no UTIS and overall doing very well. P: see in 3mos with PSA. 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 He went to [place] and is doing well. Sometimes caths up to 6 times a day. . There is no fever, significant weight loss or rash. No new urologic medications have been prescribed. O: Filed Vitals: 12/30/13 0817 BP: 124/72 Alert and oriented and good spirits. No rashes on the face or trunk. No gynecomastia, no flank masses. Abdomen and flank soft, no rebound or masses. No inguinal masses or hernia. Testis benign, descended. Urethral meatus normal, no peyronies plaques. Anal tone normal, no rectal masses, prostate benign and symmetric. Other tests: PSAup to 5.4 A: low risk prostate cancer. PSA up slightly. On SIC clean tech with no UTIS and overall doing very well. P: see in 3mos with PSA. If rises, would recommend a biopsy. documented in this encounter Plan of Treatment Not on filedocumented as of this encounter Visit Diagnoses Diagnosis Prostate cancer (HRC) - Primary Malignant neoplasm of prostate documented in this encounter Care Teams Document Image Technician Relationship Specialty Start Date End Date Ramses Cleary MD PCP - General Family Practice 10/21/11 documented as of this encounter
--- OUTSIDE RECORDS SUMMARY | 2022-02-24 12:26 | XMS_ITS | Encounter Summary ---
:1935 Author Organization [facility] Address [address], [place] [address] Care Team Providers Name Role Phone Ramses Cleary MD Primary Care Provider Unavailable Reason for Visit Procedure/Equipment (Routine) - Incomplete Specialty Diagnoses / Procedures Referred By Contact Refer red To Contact Diagnoses Pneumonia Tan Caldwell MD Procedures XR CHEST PA/AP AND LAT 2 VIEWS * [address] [place] [address] Referral ID Status Reason Start Date Expiration Date Visits V isits Requested Authorized [id number] Incomplete 02/09/2014 1 1 Encounter Details Date Type Department Care Team Description 02/09/2014 Imaging [facility] Umair c [facility] Radiology Pneumonia [address] [place] [place] [address] [id number] Social History Tobacco Use Types Packs/Day Years [...] Comme nts XR CHEST 2 VIEWS Routine 02/09/2014 3:57 PM Pneumonia Resul ts for this CDT procedure are [...] in this encounter Visit Diagnoses Diagnosis Pneumonia Pneumonia, organism unspecified documented in this encounter Care Teams Top Bottom Attaching Machine Operator Relationship Specialty Start Date End Date Ramses Cleary MD PCP - General Family Practice 10/21/11 documented as of this encounter
--- OUTSIDE RECORDS SUMMARY | 2022-02-24 12:26 | XMS_ITS | Encounter Summary ---
:1935 Author Organization [facility] Address [address], [place] [address] Care Team Providers Name Role Phone No Primary/Referring, Phy Primary Care Provider Unavailable Encounter Details Date Type Department Care Team Description 08/04/2013 Consent for [place] Same Day Surgery [facility] INFORMED Procedure/Treatme [address] [facility], [place] [address] Provider [phone] Social History Tobacco Use Types Packs/Day Years [...] documented as of this encounter Progress Notes [facility], Provider - 08/04/2013 12:00 AM CST ORATE INTERN documented in this encounter Plan of Treatment Not on filedocumented as of this encounter Visit Diagnoses Not on filedocumented in this encounter Care Teams Floor Renovator Relationship Specialty Start Date End Date No Primary/Referring, Phy PCP - General 12/11/21 documented as of this encounter
--- OUTSIDE RECORDS SUMMARY | 2022-02-24 12:26 | XMS_ITS | Encounter Summary ---
:1935 Author Organization [facility] Address [address] [address] Care Team Providers Name Role Phone Ramses Cleary MD Primary Care Provider Unavailable Reason for Visit Reason Onset Date Comments Labs Needed 12/26/2013 PSA Encounter Details Date Type Department Care Team Description 12/26/2013 Telephone [facility] Yumiko Brown, AFTAB Labs Needed (PSA) Urology [address] [place] [address] [place] [address] Social History Tobacco Use Types Packs/Day Years [...] documented as of this encounter Nursing Notes Yumiko Brown CMA - 12/26/2013 11:12 AM CDT LM asking if Pt could come to the clinic prior to Thursday 12/28.14 for PSA blood work. Pt scheduledfor f/u with Dr. Rodney on 12/30/13. Pt to call back and schedule lab only appointment. Yumiko Cole 12/26/2013, 11:13 AM documented in this encounter Plan of Treatment Not on filedocumented as of this encounter Visit Diagnoses Not on filedocumented in this encounter Care Teams Shield Installer Relationship Specialty Start Date End Date Ramses Cleary MD PCP - General Family Practice 10/21/11 documented as of this encounter
--- OUTSIDE RECORDS SUMMARY | 2022-02-24 12:26 | XMS_ITS | Encounter Summary ---
:1935 Author Organization [employer] Address [address], [place] [address] Care Team Providers Name Role Phone Ramses Cleary MD Primary Care Provider Unavailable Encounter Details Date Type Department Care Team Description 08/04/2013 Hospital Encounter LV Operating Room Mingo Santana, [address] [place] [address] [phone] [place] [address] (Wo rk) Social History Tobacco Use Types [...] Sign Reading Time Taken Comments Blood Pressure 132/65 08/04/2013 10:20 AM PARAKEET RAISER Pulse 64 08/04/2013 10:20 AM PARAKEET RAISER Temperature 36.6 ??C (97.8 ??F) 08/04/2013 10:20 AM PARAKEET RAISER Respiratory Rate 16 08/04/2013 10:20 AM PARAKEET RAISER Oxygen Saturation 94% 08/04/2013 10:20 AM PARAKEET RAISER Inhaled Oxygen Concentration - - Weight 104.3 kg (230 lb) 08/01/2013 1:48 PM PARAKEET RAISER Height 175.3 cm (5' 9) 08/01/2013 1:48 PM PARAKEET RAISER Body Mass Index 33.97 08/01/2013 1:48 PM PARAKEET RAISER documented in this encounter Discharge Instructions Discharge InstructionsAnusha Bishop RN - 08/04/2013 10:01 AM CST Contact Information [address] [address] Main or [phone] Same Day Surgery, M-F 7am to 5pm: [phone] Clinic Phone Numbers [facility] [phone] Emergency & Urgently Needed Care: For emergencies call 911 and/or get medical help right away. If you are a [facility] member and have medical needs after clinic hours you may call the [facility] [phone] or . Special Instruction: : Rest today [...] experience and that you can definitely recommend [facility] to your family and friends. KEET RAISER documented in this encounter Medications at Time of Discharge Medication Sig Dispensed Refills Start Date End Date dorzolamide (AKA [The details of the 0 TRUSOPT) 2 % eye drop medication are not solutionIndications: available because Increased Intraocular there are pending Pressure changes by a home health clinician.] fluticasone (AKA Place 1 [place] into 0 08/03/2013 FLONASE) 50 MCG/ACT both [...] Kenny MD - 08/04/2013 3:41 PM CST [facility] Post-Operative Anesthesia Note Admit Date/Time: 08/04/2013 6:35 [...] Kenny MD --- End of Report --- KEET RAISER Asif Kenny MD - 08/04/2013 7:19 AM CST [facility] Pre-Anesthesia Evaluation and Plan Surgery Date: 08/04/2013 [...] Route Frequency ??? bacitracin-polymyxin b (aka POLYSPORIN) 500-36322 UNIT/GM ointment Intra-Op ??? fentaNYL (aka SUBLIMAZE) injection 50-100 mcg 50-100 mcg IV ONCE PRN ??? lactated ringers infusion 1,000 mL 1,000 mL IV Continuous ??? lidocaine (aka XYLOCAINE) 1 % injection 0.1-1 mL 0.1-1 mL Injection Once ??? lidocaine-epinephrine 1-1:263616 % injection Intra-Op ??? midazolam (aka VERSED) [...] benefits, alternatives and side effects with patient/responsible democrat. All questions answered. Asif Kenny MD KEET RAISER documented in this encounter Procedure Notes Mingo Santana MD - 08/04/2013 9:37 AM CST [facility] Brief Operative Progress Note Surgery Date: 08/04/2013 [...] Santana MD --- End of Report --- KEET RAISER Mingo Santana MD - 08/04/2013 12:00 AM [...] Dictated: 08/04/2013 10:48:45 Transcribed: 08/04/2013 14:24:34 Job: [id number] Doc: [id number] cc: KEET RAISER [facility], Provider - 08/04/2013 12:00 AM CST KEET RAISER [facility], Provider - 08/04/2013 12:00 AM CSTAssociated Order(s): EKG IP KEET RAISER documented in this encounter OR Notes &P - [facility], Provider - 08/04/2013 12:00 AM CST KEET RAISER documented in this encounter Miscellaneous Notes [facility], Provider - 08/04/2013 12:00 AM CST KEET RAISER [facility], Provider - 08/04/2013 12:00 AM CST KEET RAISER documented in this encounter Plan of Treatment Not on filedocumented as of this encounter Procedures Procedure Name Priority Date/Time Associated Comments Diagnosis EXCISION SOFT Same Day Surgery 08/04/2013 8:26 Facial lesion TISSUE LESION(S) AM PARAKEET RAISER FACE SKIN GRAFT FULL Same Day Surgery 08/04/2013 8:26 Facial lesion THICKNESS SKIN AM PARAKEET RAISER SURGICAL PATH Routine 08/04/2013 6:00 Results for this AM PARAKEET RAISER procedure are i n the results section. EKG IP 08/04/2013 12:00 Results for this AM PARAKEET RAISER procedure are i n the results section. documented in this encounter Results SURGICAL PATH (08/04/2013 6:00 AM PARAKEET RAISER) [facility] Method Time Signature Histology (NOTE) [facility] [...] the anterior half and center of ellipse. snp/08/05/2013 Electronically Signed Out By ? Kee Becerra [...] ??Cassette gonzales 1. ??Frozen section remnant -- customer development representative central cross sections 2. ??Anterior tip 3. ??Anterior half 4. ??Posterior half 5. 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 ??(SP, This test was performed at [facility], [address] [place] [address], [id number].) Microscopic Description Microscopic examination is performed on seven slides. ?? snp/08/05/2013 Kee Becerra MD [facility] Department of Pathology [address] [place], [place] ??[address] Specimen Anatomical Collection Method Collection Time Receive d Time (Source) Location / / Volume Laterality EXCISION OF SKIN / 08/04/2013 6:00 AM Unknown PARAKEET RAISER 12:19 PM PARAKEET RAISER Mingo Santana MD LAB_1 Performing Organization Address City/State/ZIP Code Phon e Number [address] [phone] EKG IP (08/04/2013 12:00 AM PARAKEET RAISER) Specimen (Source) Anatomical Location Collection Method / Collectio n Time Received Time / Laterality Volume 08/04/2013 Narrative This result has an attachment that is no t available. Transcriptions [facility], Provider - 08/04/2013 12:00 AM CST Provider [facility] EKG documented in this encounter Visit Diagnoses Not on filedocumented in this encounter Administered Medications Inactive Administered Medications - up to 3 most recent administrations Medication Order MAR Action Action Date Dose Rate Site bacitracin-polymyxin b (aka Given 08/04/2013 9:15 AM PARAKEET RAISER POLYSPORIN) 500-27932 UNIT/GM ointment INTRA-OP, Starting on Ana 08/04/13 at 0640, For 1 dose, Verify Route and Dose with Surgeon Prior to Administration lidocaine-epinephrine 1-1:152514 % injec tion Given 08/04/2013 9:15 AM PARAKEET RAISER 1 mL INTRA-OP, Starting on Ana 08/04/13 at 0640, For 1 dose, Verify Route and Dose with Surgeon Prior to Administration documented in this encounter Active and Recently Administered Medications Times are shown in PARAKEET RAISER. Scheduled Medication Order 08/02/2013 08/03/2013 08/04/2013 bacitracin-polymyxin b (aka POLYSPORIN) 500-91138 UNIT/GM ointme nt (CANCELED) 09 (Given - Provider: Katharina Dunbar, RN) INTRA-OP, 1 dose, Starting Ana 08/04/13 at 0640, Until Discontinu ed lidocaine-epinephrine 1-1:184516 % injection (CANCELED) 914 (Given - Provider: Katharina Dunbar, RN) INTRA-OP, 1 dose, Starting Ana 08/04/13 at 0640, Until Discontinu ed documented in this encounter Care Teams Steel Plate Printer Relationship Specialty Start Date End Date Ramses Cleary MD PCP - General Family Practice 10/21/11 documented as of this encounter
--- OUTSIDE RECORDS SUMMARY | 2022-02-24 12:26 | XMS_ITS | Encounter Summary ---
:1935 Author Organization [facility] Address [address], [place] [address] Care Team Providers Name Role Phone Ramses Cleary MD Primary Care Provider Unavailable Reason for Visit Reason Comments PROSTATE EXAM(ROUTINE/YEARLY) Encounter Details Date Type Department Care Team Description 04/14/2014 Office Visit [facility] Waqas Rodney ostate cancer [place] Edson Griffith MD (Primary Dx) [facility] [address] [place] [address] [place], [place] [phone] [address] Social History Tobacco Use Types Packs/Day Years [...] Sign Reading Time Taken Comments Blood Pressure 118/70 04/14/2014 12:44 PM CDT Pulse 90 04/14/2014 12:44 PM CDT Temperature - - Respiratory Rate - - Oxygen Saturation 95% 04/14/2014 12:44 PM CDT Inhaled Oxygen Concentration - - Weight 106.6 kg (235 lb) 04/14/2014 12:44 PM CDT Height - - Body Mass Index 34.7 08/03/2013 8:43 AM 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 On no prostate meds. P: see 6mos with PSA. Would recommend repeat biopsy within the next year. documented in this encounter Progress Notes Waqas Rodney MD - 04/14/2014 12:58 PM CDT S: I am seeing Zaid for recheck of his prostate cancer. Last biopsy was 06/25. He is doing well with work and SIC 5-6 times cathing with no UTIs or problems and PVR is about 350-400 cc on average.\ No bone pain. Understands the protocols are uncertain in men his age and after this many years ofAS. . There is no fever, significant weight loss or rash. No new urologic medications have been prescribed. O: Filed Vitals: 04/14/14 1244 BP: 118/70 Pulse: 90 Alert and oriented and good spirits. No rashes on the face or trunk. No gynecomastia, no flank masses. Abdomen and flank soft, no rebound or masses. No inguinal masses or hernia. Testis benign, descended. Urethral meatus normal, no peyronies plaques. Anal tone normal, no rectal masses, prostate benign and symmetric. Other tests: PSA down to 4.3 A: Prostate cancer, no evidence of progression. On no prostate meds. P: see 6mos with PSA. Would recommend repeat biopsy within the next year. documented in this encounter Plan of Treatment Not on filedocumented as of this encounter Results (ABNORMAL) 6 mos (09/20/2014 11:35 AM CDT) athologist Signature Prostatic Spec 5.07 (H) 0.00 - [facility] Ag 4.00 ng/ml HOSPITAL Specimen Anatomical Collection Method Collection Time Receive d Time (Source) Location / / Volume Laterality 09/20/2014 11:35 09/20/2014 AM CDT 11:40 AM CDT Narrative [facility] - 09/20/2014 1:29 PM CD T Performed at [facility], [address] [place] [address] Waqas Rodney MD LAB_1 Performing Organization Address City/State/ZIP Code Phon e Number [address] [address] documented in this encounter Visit Diagnoses Diagnosis Prostate cancer ([facility]) - Primary Malignant neoplasm of prostate Prostate cancer ([facility]) Malignant neoplasm of prostate documented in this encounter Care Teams External Relations Manager Relationship Specialty Start Date End Date Ramses Cleary MD PCP - General Family Practice 10/21/11 documented as of this encounter
--- OUTSIDE RECORDS SUMMARY | 2022-02-24 12:27 | XMS_ITS | Encounter Summary ---
:1935 Author Organization [email or web address] Address [address] [address] Care Team Providers Name Role Phone Ramses Cleary MD Primary Care Provider Unavailable Reason for Visit Procedure/Equipment (Routine) - Closed Specialty Diagnoses / Procedures Referred By Contact Refer red To Contact Radiology [place] Procedures Maddy Blanton Radiology CT CHEST WITH CONTRAST JESSA Griffith, IMMIGRATION CASE WORKER [address] [place] [address] [place] [address] Phone: Referral ID Status Reason Start Date Expiration Date Visits Requ ested Visits Authorized [id number] Closed 07/22/2013 1 1 Encounter Details Date Type Department Care Team Description 07/22/2013 Imaging [facility] Radiology Maddy Blanton, CT FOURTH GRADE TEACHER, IMMIGRATION CASE WORKER [address] [place] [address] [place] [address] Social History Tobacco Use Types Packs/Day Years [...] Priority Date/Time Associated Diagnosis Comme nts CT CHEST W IV CONT Routine 07/22/2013 5:10 PM Res ults for this SAUSAGE MEAT TRIMMER procedure are i n the results section. CREATININE / GFR Routine 07/22/2013 4:02 PM Resul ts for this SAUSAGE MEAT TRIMMER procedure are i n the results section. documented in this encounter Results CT CHEST WITH CONTRAST (07/22/2013 5:10 PM SAUSAGE MEAT TRIMMER) Anatomical Region Laterality Modality Chest, Lung Computed Tomography Specimen (Source) Anatomical Collection Method Collection Time Re ceived Time Location / / Volume Laterality 07/22/2013 7:13 PM SAUSAGE MEAT TRIMMER Narrative 07/22/2013 7:17 [address] CHEST W CONT 07/22/2013 5:10 PM INDICATION: Cough TECHNIQUE: Routine chest. IV Contrast: O ptiray-350 COMPARISON: None. FINDINGS: LUNGS AND PLEURA: Calcified granulomas l eft lower lobe. 2 mm noncalcified pulmonary nodule right upper lobe on ford ge 41 is very likely also a granuloma. Unusual focal fibrosis or cav ity with thin wall adjacent to the major fissure, on image 77 and 76. Lungs are otherwise clear. No pleural effusion. MEDIASTINUM: Calcified lymph nodes josee tible with prior granulomatous disease. LIMITED UPPER ABDOMEN: Negative. MUSCULOSKELETAL: Negative. CONCLUSION: 1. ??Evidence of previous granulomatous disease. 2. ??Focal fibrosis or thin-walled cavit y in the right middle lobe abutting the major fissure. This is very likely b enign, possibly sequelae of previous inflammation. 3. ??2 mm right upper lobe granuloma is very likely benign as well. See followup guidelines below. Guidelines for followup of benign-appear ing pulmonary nodules. Based on Fleischner Society recommendations, Radi ology 2005; 237:395-400. Nodule size (mm), low-risk patient: 4 mm or less: No followup needed. >4-6 mm: CT at 12 months. If unchanged, no further followup. >6-8 mm: CT at 6 and 24 months. If uncha nged, no further followup. >8 mm: CT at 3, 9 and 24 months. Conside r PET or biopsy. Nodule size (mm), high-risk patient: 4 mm or less: CT at 12 months. If unchan ged, no further followup. >4-6 mm: CT at 6 and 24 months. If uncha nged, no further followup. >6-8 mm: CT at 3, 9 and 24 months or PET scan or biopsy. >8 mm: CT at 3, 9 and 24 months or PET o r biopsy. Procedure Note Darwin Lebron MD - 07/22/2013Formatti ng of this note might be different from the original. CT CHEST W CONT 07/22/2013 5:10 PM INDICATION: Cough TECHNIQUE: Routine chest. IV Contrast: O ptiray-350 COMPARISON: None. FINDINGS: LUNGS AND PLEURA: Calcified granulomas l eft lower lobe. 2 mm noncalcified pulmonary nodule right upper lobe on ford ge 41 is very likely also a granuloma. Unusual focal fibrosis or cav ity with thin wall adjacent to the major fissure, on image 77 and 76. Lungs are otherwise clear. No pleural effusion. MEDIASTINUM: Calcified lymph nodes josee tible with prior granulomatous disease. LIMITED UPPER ABDOMEN: Negative. MUSCULOSKELETAL: Negative. CONCLUSION: 1. Evidence of previous granulomatous di sease. 2. Focal fibrosis or thin-walled cavity in the right middle lobe abutting the major fissure. This is very likely b enign, possibly sequelae of previous inflammation. 3. 2 mm right upper lobe granuloma is ve ry likely benign as well. See followup guidelines below. Guidelines for followup of benign-appear ing pulmonary nodules. Based on Fleischner Society recommendations, Radi ology 2005; 237:395-400. Nodule size (mm), low-risk patient: 4 mm or less: No followup needed. >4-6 mm: CT at 12 months. If unchanged, no further followup. >6-8 mm: CT at 6 and 24 months. If uncha nged, no further followup. >8 mm: CT at 3, 9 and 24 months. Conside r PET or biopsy. Nodule size (mm), high-risk patient: 4 mm or less: CT at 12 months. If unchan ged, no further followup. >4-6 mm: CT at 6 and 24 months. If uncha nged, no further followup. >6-8 mm: CT at 3, 9 and 24 months or PET scan or biopsy. >8 mm: CT at 3, 9 and 24 months or PET o r biopsy. Maddy Blanton APRN, CNP RAD CT (ABNORMAL) CREATININE / GFR (07/22/2013 4:02 PM SAUSAGE MEAT TRIMMER) Analysis Performed At [facility] Time Signature Creatinine 1.22 0.66 - [facility] 1.25 mg/dl HOSPITAL GFR, Estimated 57.5 (L) >60 [facility] ml/min/1.7 HOSPITAL 3m2 GFR, Est., If >60.0 >60 [facility] Black ml/min/1.7 [facility] 3m2 Specimen Anatomical Collection Method Collection Time Receive d Time (Source) Location / / Volume Laterality 07/22/2013 4:02 PM 4 4:04 SAUSAGE MEAT TRIMMER PM SAUSAGE MEAT TRIMMER Narrative [facility] - 07/22/2013 4:59 PM CS T Performed at [facility], [address] [place] [address] Maddy Blanton APRN, CNP LAB_1 Performing Organization Address City/State/ZIP Code Phon e Number [address] [address] documented in this encounter Visit Diagnoses Not on filedocumented in this encounter Care Teams Defense Analyst Relationship Specialty Start Date End Date Ramses Cleary MD PCP - General Family Practice 10/21/11 documented as of this encounter
--- OUTSIDE RECORDS SUMMARY | 2022-02-24 12:27 | XMS_ITS | Encounter Summary ---
:1935 Author Organization [employer] Address [address], [place] [address] Care Team Providers Name Role Phone Ramses Cleary MD Primary Care Provider Unavailable Reason for Visit Reason Onset Date Comments Orders Needed 12/14/2012 Encounter Details Date Type Department Care Team Description 12/14/2012 Telephone [facility] Waqas Newton MD Orders Needed Urology [address] [place] [address] [place] [address] [phone] Social History Tobacco Use Types Packs/Day Years [...] documented as of this encounter Nursing Notes Helene Ocampo APRN, CNP - 12/14/2012 11:59 AM CDT Patient is informed that PSA orders are ready for him to come in one week prior to appt to have lab drawn. Helene Ocampo RN 12/14/2012, 12:00 PM Michaela Villarreal - 12/14/2012 11:49 AM CDT Reason for call? Pt wants Dr Rodney to submit an order for PSA before he is seen 12/31. Please callwhen order is submitted. Best time to reach you? anytime Preferred Pharmacy? na Ok to leave a detailed message? yes Michaela Villarreal ....................................12/14/2012 11:49 AM documented in this encounter Plan of Treatment Not on filedocumented as of this encounter Visit Diagnoses Not on filedocumented in this encounter Care Teams Blueprint Tracer Relationship Specialty Start Date End Date Ramses Cleary MD PCP - General Family Practice 10/21/11 documented as of this encounter
--- OUTSIDE RECORDS SUMMARY | 2022-02-24 12:27 | XMS_ITS | Encounter Summary ---
:1935 Author Organization [employer] Address [address], [place] [address] Care Team Providers Name Role Phone Ramses Cleary MD Primary Care Provider Unavailable Reason for Visit Reason Comments PROSTATE EXAM(ROUTINE/YEARLY) Encounter Details Date Type Department Care Team Description 12/31/2012 Office Visit [facility] Waqas Rodney (Primary Dx) Group Urology MD Gladis [address] [place], [place] [address] [address] [place], [place] [phone] [address] Social History Tobacco Use Types Packs/Day Years [...] Reading Time Taken Comments Blood Pressure 132/76 12/31/2012 11:26 AM CDT Pulse 68 12/31/2012 11:26 AM CDT Temperature - - Respiratory Rate - - Oxygen Saturation 97% 12/31/2012 11:26 AM CDT Inhaled Oxygen Concentration - - Weight 107.5 kg (237 lb) 12/31/2012 11:26 AM CDT Height - - Body Mass Index 33.05 11/16/2012 11:19 AM CDT documented in this encounter Patient Instructions Patient InstructionsStWaqas haynes MD - 12/31/2012 11:59 AM CDT P: Increase as best you can, the cathing to 6 time/daily to keep residual 400cc or less if possible. See in 6mos with psa. May repeat biopsies in the future. documented in this encounter Progress Notes Waqas Rodney MD - 12/31/2012 11:54 AM CDT S: I am seeing Zaid for recheck of his prostate cancer on and SIC. He showed me his diary and he has 4-500 cc pvr. No UTIs or troubles voiding. . PSA stable 4.8. There is no fever, significant weight loss or rash. No new urologic medications have been prescribed. O: Filed Vitals: 12/31/12 1126 BP: 132/76 Pulse: 68 Alert and oriented and good spirits. No rashes on the face or trunk. No gynecomastia, no flank masses. Abdomen and flank soft, no rebound or masses. No inguinal masses or hernia. Testis benign, descended. Urethral meatus normal, no peyronies plaques. Anal tone normal, no rectal masses, prostate benign and symmetric. Other tests: Not done A: Prostate cancer. On PSA stable. P: Increase SIC to 6 times. See in 6mos with psa. May repeat biopsies in the future. documented in this encounter Plan of Treatment Not on filedocumented as of this encounter Visit Diagnoses Diagnosis Lumbago - Primary documented in this encounter Care Teams Chief Optometry Service Relationship Specialty Start Date End Date Ramses Cleary MD PCP - General Family Practice 10/21/11 documented as of this encounter
--- OUTSIDE RECORDS SUMMARY | 2022-02-24 12:27 | XMS_ITS | Encounter Summary ---
:1935 Author Organization [facility] Address [address], [place] [address] Care Team Providers Name Role Phone Ramses Cleary MD Primary Care Provider Unavailable Encounter Details Date Type Department Care Team Description 12/22/2012 Orders Only [facility] [address] [place] [address] Social History Tobacco Use Types Packs/Day [...] documented as of this encounter Progress Notes Helene Ocampo, BUS DRIVER SUPERVISOR, SWITCH MAKER - 12/23/2012 10:55 AM CDT Quick Note: Patient has upcoming appt. documented in this encounter Plan of Treatment Not on filedocumented as of this encounter Procedures Procedure Name Priority Date/Time Associated Diagnosis Comme nts PROSTATIC SPECIFIC Routine 12/22/2012 1:25 PM Prostate cancer Results for this ANTIGEN (DIAGNOSTIC CDT procedur e are in F/U) the results section. documented in this encounter Results (ABNORMAL) PROSTATIC SPECIFIC ANTIGEN (F/U) (12/22/2012 1:25 PM CDT) P athologist Signature Prostatic Spec 4.9 (H) 0.0 - 4.0 [place] Ag ng/mL [facility] Specimen Anatomical Collection Method Collection Time Receive d Time (Source) Location / / Volume Laterality 12/22/2012 1:25 PM 3 5:00 CDT PM CDT Waqas Rodney MD LAB_1 Performing Organization Address City/State/ZIP Code Phon e Number [facility] [address] [place] [phone] documented in this encounter Visit Diagnoses Diagnosis Prostate cancer ([facility]) Malignant neoplasm of prostate documented in this encounter Care Teams Spot Facer Relationship Specialty Start Date End Date Ramses Cleary MD PCP - General Family Practice 10/21/11 documented as of this encounter
--- OUTSIDE RECORDS SUMMARY | 2022-02-24 12:27 | XMS_ITS | Encounter Summary ---
:1935 Author Organization [facility] Address [address], [place] [address] Care Team Providers Name Role Phone Ramses Cleary MD Primary Care Provider Unavailable Reason for Visit Reason Comments URI cough sore throat for 4 days Encounter Details Date Type Department Care Team Description 11/16/2012 Office Visit [facility] Ramses Cleary onic bronchitis (Primary Dx); Beatriz Shipman MD Laryngitis Practice [address] [place] [address] [place], [place] [phone] Social History Tobacco Use Types Packs/Day Years [...] Sign Reading Time Taken Comments Blood Pressure 112/60 11/16/2012 11:19 AM CDT Pulse 76 11/16/2012 11:19 AM CDT Temperature 36.7 ??C (98 ??F) 11/16/2012 11:19 AM CDT Respiratory Rate 18 11/16/2012 11:19 AM CDT Oxygen Saturation 95% 11/16/2012 11:19 AM CDT Inhaled Oxygen Concentration - - Weight 107.5 kg (237 lb) 11/16/2012 11:19 AM CDT Height 180.3 cm (5' 11) 11/16/2012 11:19 AM CDT Body Mass Index 33.05 11/16/2012 11:19 AM CDT documented in this encounter Patient Instructions Patient InstructionsRamses Cleary MD - 11/16/2012 11:36 AM CDT Use the antibiotic and steroid for inflammation. If the hoarseness persists then you should see ENT for evaluation of the vocal cords. documented in this encounter Progress Notes Ramses Cleary MD - 11/16/2012 11:30 AM CDT Zaid Rutledge is a 77 yr male who presents today with a chief complaint of cough for 4 days. Has laryngitis. Coughing up brown phlegm. There has been some wheezing. No fever for certain. Gets up at night to cath his bladder. He has not had increased shortness of breath. No tobacco use Patient Active Problem List Diagnosis ??? SPINAL [...] TYLENOL EXTRA STRENGTH) 500 MG tablet Take 500-1,000 mg by mouth every 4 hours as needed. ??? allopurinol (AKA ZYLOPRIM) 100 MG tablet Take 1 Tab by mouth daily. ??? azithromycin (ZITHROMAX Z-CINTHYA) 250 MG tablet Take two tablets today, then one tablet daily - days two through five. ??? dorzolamide (AKA TRUSOPT) 2 % eye drop solution Apply or instill 1 Drop into both eyes two timesa day. ??? fluticasone (AKA FLONASE) 50 MCG/ACT nasal solution Apply or instill 2 Sprays into both nostrilsdaily. ??? fluticasone (FLOVENT HFA) 110 MCG/ACT inhaler Inhale 1-2 Puffs by mouth two times a day. Increase per Asthma Action Plan when in yellow or red zone. ??? Multiple Vitamins-Minerals (ICAPS AREDS FORMULA OR) ??? omeprazole (AKA PRILOSEC) 20 MG capsule Take 1 Cap by mouth two times a day. Take 1 hour before a meal. ??? predniSONE (AKA DELTASONE) 20 MG tablet Take 2 Tabs by mouth daily for 7 days. ??? Psyllium (METAMUCIL) 0.52 G capsule Take 0.52 g by mouth daily. ??? Vardenafil HCl (LEVITRA) 20 MG tablet Take 1 Tab by mouth every 48 hours as needed for 1 dose. OBJECTIVE: BP 112/60 Pulse 76 Temp(Src) 98 ??F (36.7 ??C) (Oral) Resp 18 Ht 5' 11 (1.803 m) Wt 237 lb (107.502 kg) BMI 33.07 kg/m2 SpO2 95% EXAM: Alert oriented NAD Head: Atraumatic Neck: Supple without murmur Lungs: Clear to auscultation Heart: Regular without murmur Assessment: 1. Chronic bronchitis 2. Laryngitis PLAN: Orders Placed This Encounter ??? predniSONE (AKA DELTASONE) 20 MG tablet ??? azithromycin (ZITHROMAX Z-CINTHYA) 250 MG tablet Since he has a hx of asthma and copd will start on antibiotic and short course of prednisone Recheck if not improving. He has laryngitis and if not improving then should see ENT for evaluation. Ramses Cleary MD documented in this encounter Plan of Treatment Not on filedocumented as of this encounter Visit Diagnoses Diagnosis Chronic bronchitis (HRC) - Primary Unspecified chronic bronchitis Laryngitis Acute laryngitis, without mention of obs truction documented in this encounter Care Teams Dish Cloth Inspector Relationship Specialty Start Date End Date Ramses Cleary MD PCP - General Family Practice 10/21/11 documented as of this encounter
--- OUTSIDE RECORDS SUMMARY | 2022-02-24 12:27 | XMS_ITS | Encounter Summary ---
:1935 Author Organization [facility] Address [address], [place] [address] Care Team Providers Name Role Phone Ramses Cleary MD Primary Care Provider Unavailable Reason for Referral Procedure/Equipment (Routine) - Closed Specialty Diagnoses / Procedures Referred By Contact Refer red To Contact General Surgery Procedures Mingo Santana MD Lv Same Day Surgery Case Request OR - ENT [address] [place] [address] Surgery: --[address] [place] [address] [place] [address] EXCISION OF LESION FACE Phone: Referral ID Status Reason Start Date Expiration Date Visits Requ ested Visits Authorized [id number] Closed 06/23/2013 09/22/2014 1 1 D BANK LABORATORY TECHNOLOGIST Encounter Details Date Type Department Care Team Description 06/23/2013 Office Visit [facility] Mingo Santana cancer (Primary [place] Otolaryng ologjoel Salinas MD Dx) [address] [place], [place] [phone] [phone] [place] [address] Social History Tobacco Use Types Packs/Day Years [...] encounter Progress Notes Mingo Santana MD - 06/23/2013 3:33 PM BLOOD BANK LABORATORY TECHNOLOGIST Addended by: MINGO SANTANA on: 06/23/2013 03:33 PM Modules accepted: Orders D BANK LABORATORY TECHNOLOGIST Mingo Santana MD - 06/23/2013 3:23 PM CST This office note has been dictated. D BANK LABORATORY TECHNOLOGIST Mingo Santana MD - 06/23/2013 12:00 AM CST DATE OF SERVICE: 06/23/2013 CHIEF COMPLAINT: Basal cell left ear. PHYSICIAN REQUESTING CONSULTATION: Dr. Cordero. 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 He had asimilar lesion on the nasal tip removed several years ago. His past medical history, surgical history, medications, and allergies were [facility] reviewed and [facility]. HABITS: Nonsmoker. REVIEW OF SYSTEMS: Cardiovascular and respiratory: Both negative. He does not have a history of easybruising or bleeding. He is not on anticoagulants. Please note he is traveling to [place] in two weeks. PHYSICAL EXAMINATION: General: On physical exam he is alert, attentive, afebrile. HEENT: Both tympanic membranes were intact and normal. Nasal exam reveals evidence of previous incision site at the right alar rim. The external ear on the left reveals an ulcerated lesion less than a centimeter in size involving the superiorhelical fold. I see no overt additional skin lesions. Oral and neck exam were otherwise unremarkable. IMPRESSION: Basal cell cancer left ear. PLAN: We did discuss the merits of removing vis-a-vis frozen section margins. I think he is comfortable with this. He has dealt with this in the past with the nose. He wishes to have it completed in one session. I think we can accommodate that request in the hospital setting. Mingo Santana MD BFD:[email or web address] Dictated: 06/23/2013 15:25:18 Transcribed: 06/27/2013 07:20:34 Job: [id number] Doc: [id number] cc: D BANK LABORATORY TECHNOLOGIST documented in this encounter Plan of Treatment Not on filedocumented as of this encounter Visit Diagnoses Diagnosis Skin cancer - Primary Unspecified malignant neoplasm of skin, site unspecified documented in this encounter Care Teams Research Programmer Relationship Specialty Start Date End Date Ramses Cleary MD PCP - General Family Practice 10/21/11 documented as of this encounter
--- OUTSIDE RECORDS SUMMARY | 2022-02-24 12:27 | XMS_ITS | Encounter Summary ---
:1935 Author Organization [facility] Address [address] [address] Care Team Providers Name Role Phone Ramses Cleary MD Primary Care Provider Unavailable Encounter Details Date Type Department Care Team Description 06/20/2013 [facility] skin lesion Laboratory [address] [place] [phone] Social History Tobacco Use Types Packs/Day Years [...] documented as of this encounter Progress Notes Luis A Cordero MD - 06/22/2013 2:22 PM FUND ACCOUNTING MANAGER Quick Note: Pt noptifiesd. Dr Santana for consullt ACCOUNTING MANAGER documented in this encounter Plan of Treatment Not on filedocumented as of this encounter Procedures Procedure Name Priority Date/Time Associated Diagnosis Comme nts SURGICAL PATH Routine 06/20/2013 6:00 AM Changing skin lesion Results for this FUND ACCOUNTING MANAGER procedure are i n the results section . documented in this encounter Results SURGICAL PATH (06/20/2013 6:00 AM FUND ACCOUNTING MANAGER) [facility] Method Time Signature Histology (NOTE) [facility] Final Report [facility] Patient Name: ZAID RUTLEDGE Taken: 06/20/2013 Received: 06/20/2013 Reported: 06/21/2013 Physician(s): LUIS A CORDERO ([id number]) ? Final Pathologic Diagnosis Skin, left ear, biopsy -- Basal cell carcinoma, superficial and sclerosing pattern, see comment Comments The lesion extends to peripheral margins of the biopsy. ??An excisional biopsy is recommended. snp/06/21/2013 Electronically Signed Out By ? Kee Becerra MD Procedures/Addenda Clinical History Changing skin lesion Gross Description The specimen is received in formalin and labeled with the pa tient's name and skin lesion left ear. ??The specimen consists of a 0.2 cm piece of pink-white skin/soft tissue. ??The specimen is inke d black and entirely submitted in one cassette. ??dt nicol/06/20/2013 Microscopic Description Microscopic examination is performed on two slides. ?? snp/06/21/2013 Kee Becerra MD [facility] Department of Pathology [address] [place], [place] ??[address] Specimen Anatomical Collection Method Collection Time Receive d Time (Source) Location / / Volume Laterality EXCISION OF SKIN / 06/20/2013 6:00 AM 11/2013 5:43 Unknown FUND ACCOUNTING MANAGER PM FUND ACCOUNTING MANAGER Luis A Cordero MD LAB_1 Performing Organization Address City/State/ZIP Code Phon e Number [id number] [address] documented in this encounter Visit Diagnoses Diagnosis Changing skin lesion Unspecified disorder of skin and subcuta neous tissue documented in this encounter Care Teams [facility]wife [facility] Owner Relationship Specialty Start Date End Date Ramses Cleary MD PCP - General Family Practice 10/21/11 documented as of this encounter
--- OUTSIDE RECORDS SUMMARY | 2022-02-24 12:27 | XMS_ITS | Encounter Summary ---
:1935 Author Organization [facility] Address [address], [place] [address] Care Team Providers Name Role Phone Ramses Cleary MD Primary Care Provider Unavailable Reason for Visit Reason Comments Revisit 6 month psa check Encounter Details Date Type Department Care Team Description 07/01/2013 Office Visit [facility] Waqas Rodney BPH ( benign prostatic Group Urology J, hypertrophy) (Primary [address] Dx) [place], [place] [address] [address] [place], [place] [phone] Social History Tobacco Use Types Packs/Day Years [...] Sign Reading Time Taken Comments Blood Pressure 104/78 07/01/2013 8:53 AM GRILL ASSOCIATE Pulse 78 07/01/2013 8:53 AM GRILL ASSOCIATE Temperature - - Respiratory Rate - - Oxygen Saturation - - Inhaled Oxygen Concentration - - Weight 107 kg (236 lb) 07/01/2013 8:53 AM GRILL ASSOCIATE Height - - Body Mass Index 34.85 06/20/2013 3:11 PM GRILL ASSOCIATE documented in this encounter Patient Instructions Patient InstructionsStWaqas haynes MD - 07/01/2013 9:10 AM CST A: Low risk prostate cancer. P: See 6mos with psa. Cipro prescription if gets UTI while traveling L ASSOCIATE documented in this encounter Progress Notes Waqas Rodney MD - 07/01/2013 9:05 AM CST S: I am seeing Zaid for recheck of his Low risk prostate cancer. He is on SIC and doing well with clean technique and keeping PVR below 400 generally with no UTIs. Traveling to [place] not allergic to CIPRO. . There is no fever, significant weight loss or rash. No new urologic medications have been prescribed. O: Filed Vitals: 07/01/13 0853 BP: 104/78 Pulse: 78 Alert and oriented and good spirits. No rashes on the face or trunk. No gynecomastia, no flank masses. Abdomen and flank soft, no rebound or masses. No inguinal masses or hernia. Testis benign, descended. Urethral meatus normal, no peyronies plaques. Anal tone normal, no rectal masses, prostate benign and symmetric. Other tests: PSA down to 3.95 A: Low risk prostate cancer. P: See 6mos with psa. Cipro prescription if gets UTI while traveling L ASSOCIATE documented in this encounter Nursing Notes 07/01/2013 8:45 AM CST >> Sindy Pack LPN Fri Jul 01, 2013 8:55 AM Patient here for 6 month psa check,PROSTATIC SPEC AG 0.00 - 4.00 ng/ml 3.95, 06/20/13. Sindy Pack LPN 07/01/2013, 8:53 AM documented in this encounter Plan of Treatment Not on filedocumented as of this encounter Results (ABNORMAL) 6 mos (12/28/2013 10:48 AM CDT) athologist Signature Prostatic Spec 5.39 (H) 0.00 - [facility] Ag 4.00 ng/ml HOSPITAL Specimen Anatomical Collection Method Collection Time Receive d Time (Source) Location / / Volume Laterality 12/28/2013 10:48 12/28/2013 AM CDT 10:53 AM CDT [facility] - 12/28/2013 3:04 PM CD T Performed at [facility], [address] [place] [address] Waqas Rodney MD LAB_1 Performing Organization Address City/[facility] Code Phon e Number [phone] [address] PROSTATIC SPECIFIC ANTIGEN (F/U) (06/20/2013 3:55 PM GRILL ASSOCIATE) athologist Signature Prostatic Spec 3.95 0.00 - [facility] Ag 4.00 ng/ml HOSPITAL Specimen Anatomical Collection Method Collection Time Receive d Time (Source) Location / / Volume Laterality 06/20/2013 3:55 PM 4 4:00 GRILL ASSOCIATE PM GRILL ASSOCIATE [facility] - 06/20/2013 6:48 PM CS T Performed at [facility], [address] [place] [address] Waqas Rodney MD LAB_1 Performing Organization Address City/[facility] Phon e Number [address] [address] documented in this encounter Visit Diagnoses Diagnosis BPH (benign prostatic hypertrophy) - Faviola felecia Hypertrophy of prostate without urinary obstruction and other lower urinary tract symptoms (LUTS) BPH (benign prostatic hypertrophy) - Faviola felecia Hypertrophy of prostate without urinary obstruction and other lower urinary tract symptoms (LUTS) BPH (benign prostatic hypertrophy) Hypertrophy of prostate without urinary obstruction and other lower urinary tract symptoms (LUTS) documented in this encounter Care Teams Sports Instructor Relationship Specialty Start Date End Date Ramses Cleary MD PCP - General Family Practice 10/21/11 documented as of this encounter
--- OUTSIDE RECORDS SUMMARY | 2022-02-24 12:27 | XMS_ITS | Encounter Summary ---
:1935 Author Organization [facility] Address [address] [address] Care Team Providers Name Role Phone No Primary/Referring, Phy Primary Care Provider Unavailable Encounter Details Date Type Department Care Team Description 07/22/2013 Consent for [facility] CONSENT FOR Procedure/[address] [place] [address] Social History Tobacco Use Types [...] documented as of this encounter Progress Notes [facility], Provider - 07/22/2013 12:00 AM CST CIATE PROFESSOR OF ANTHROPOLOGY documented in this encounter Plan of Treatment Not on filedocumented as of this encounter Visit Diagnoses Not on filedocumented in this encounter Care Teams Public Address Technician Relationship Specialty Start Date End Date No Primary/Referring, Phy PCP - General 12/11/21 documented as of this encounter
--- OUTSIDE RECORDS SUMMARY | 2022-02-24 12:27 | XMS_ITS | Encounter Summary ---
:1935 Author Organization [facility] Address [address], [place] [address] Care Team Providers Name Role Phone Ramses Cleary MD Primary Care Provider Unavailable Reason for Visit Reason Onset Date Comments Refill 05/24/2013 allopurinol (AKA ZYL OPRIM) 100 MG tablet Encounter Details Date Type Department Care Team Description 05/24/2013 Refill [facility] Donnell Oliva, Ref ill (allopurinol (AKA Group [place] [facility] DO ZYLOPRIM) 100 MG tablet) Practice [address] [place], [place] [id number] [phone] Social History Tobacco Use Types Packs/Day Years [...] documented as of this encounter Nursing Notes Sera Arora - 05/24/2013 3:55 PM CST Medication(s) approved by RN per Refill Protocol/Standing Order. Sera Arora RN 05/24/2013, 3:55 PM Letter # 1 sent for patient to make annual exam appointment. ICATIONS CONSULTANT Madison Abraham - 05/24/2013 10:43 AM CST allopurinol (AKA ZYLOPRIM) 100 MG tablet Take 1 Tab by mouth daily #90 x 3 Last Filled 02/24/2013 Madison Cespedes CMA 05/24/201310:44 AM ICATIONS CONSULTANT documented in this encounter Plan of Treatment Not on filedocumented as of this encounter Visit Diagnoses Not on filedocumented in this encounter Care Teams Phys Assistant Relationship Specialty Start Date End Date Ramses Cleary MD PCP - General Family Practice 10/21/11 documented as of this encounter
--- OUTSIDE RECORDS SUMMARY | 2022-02-24 12:27 | XMS_ITS | Encounter Summary ---
:1935 Author Organization [facility] Address [address] [place] [address] Care Team Providers Name Role Phone Ramses Cleary MD Primary Care Provider Unavailable Reason for Visit Procedure/Equipment (Routine) - Closed Specialty Diagnoses / Procedures Referred By Contact Refer red To Contact Radiology [place] Diagnoses Chronic bronchitis (HRC) Charley Rios, Cc Radiology Procedures XR CHEST PA/AP AND LAT 2 VIEWS * DBA DEVELOPER, PLANT GUIDE [address] [place] [address] [place] [address] Phone: [phone] Fax: Referral ID Status Reason Start Date Expiration Date Visits Requ ested Visits Authorized [id number] Closed 05/25/2013 1 1 Encounter Details Date Type Department Care Team Description 05/25/2013 Imaging [facility] Clinic Chroni c bronchitis [place] [facility] (Primary Dx) [address] [place], [place] [phone] Social History Tobacco Use Types Packs/Day Years [...] documented as of this encounter Progress Notes Charley Rios APRN, CNP - 05/27/2013 9:48 AM STEAM ROLLER OPERATOR Quick Note: See telephone enc. KASSANDRA Rankin 05/27/2013, 9:48 AM M ROLLER OPERATOR documented in this encounter Plan of Treatment Not on filedocumented as of this encounter Procedures Procedure Name Priority Date/Time Associated Diagnosis Comme nts XR CHEST 2 VIEWS STAT 05/25/2013 11:41 AM Chronic bronchiti s Results for this STEAM ROLLER OPERATOR procedure are i n the results section. documented in this encounter Results XR CHEST PA/AP AND LAT 2 VIEWS * (05/25/2013 11:41 AM STEAM ROLLER OPERATOR) Anatomical Region Laterality Modality Chest, Lung Computed Radiography Specimen (Source) Anatomical Collection Method Collection Time Re ceived Time Location / / Volume Laterality 05/25/2013 12:17 PM STEAM ROLLER OPERATOR Narrative 05/25/2013 12:19 PM STEAM ROLLER OPERATOR XR CHEST AP/PA AND LAT 2VWS 05/25/2013 11:41 AM INDICATION: Chronic cough. COMPARISON: 06/06/2009. FINDINGS: Heart size and vascularity are within normal limits. 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 Old healed left-sided rib fractures. No pneumothora x or pleural effusion. Procedure Note Morgan Anderson MD - 05/25/2013For matting of this note might be different from the original. XR CHEST AP/PA AND LAT 2VWS 05/25/2013 11:41 AM INDICATION: Chronic cough. COMPARISON: 06/06/2009. FINDINGS: Heart size and vascularity are within normal limits. 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 Old healed left-sided rib fractures. No pneumothora x or pleural effusion. Charley Rios DBA DEVELOPER, PLANT GUIDE RAD GD documented in this encounter Visit Diagnoses Diagnosis Chronic bronchitis (HRC) - Primary Unspecified chronic bronchitis documented in this encounter Care Teams Dentistry Professor Relationship Specialty Start Date End Date Ramses Cleary MD PCP - General Family Practice 10/21/11 documented as of this encounter
--- OUTSIDE RECORDS SUMMARY | 2022-02-24 12:27 | XMS_ITS | Encounter Summary ---
:1935 Author Organization [facility] Address [address] [address] Care Team Providers Name Role Phone Ramses Cleary MD Primary Care Provider Unavailable Reason for Visit Reason Comments COUGH cough with phlegm for severa l weeks RASH under arms and groin area Encounter Details Date Type Department Care Team Description 04/01/2013 Office Visit [facility] Ramses Cleary for zoster vaccination (Primary Dx); Beatriz Shipman MD COPD (chronic obstructive pulmonary dise ase); Practice [address] Fungal dermatitis [address] [place] [address] [facility] [phone] [id number] Social History Tobacco Use Types Packs/Day Years [...] Sign Reading Time Taken Comments Blood Pressure 120/80 04/01/2013 10:04 AM CDT Pulse 84 04/01/2013 10:04 AM CDT Temperature 36.7 ??C (98.1 ??F) 04/01/2013 10:04 AM CDT Respiratory Rate 18 04/01/2013 10:04 AM CDT Oxygen Saturation 97% 04/01/2013 10:04 AM CDT Inhaled Oxygen Concentration - - Weight 107.5 kg (237 lb) 04/01/2013 10:04 AM CDT Height 175.3 cm (5' 9) 04/01/2013 10:04 AM CDT Body Mass Index 35 04/01/2013 10:04 AM CDT documented in this encounter Patient Instructions Patient InstructionsRamses Cleary MD - 04/01/2013 10:21 AM CDT Use the prednisone if the cough is not better in 10 days. Use the oral diflucan if the groin and underarm rashes are not better in about 10 days. documented in this encounter Progress Notes Ramses Cleary MD - 04/01/2013 10:07 AM CDT Zaid Rutledge is a 77 yr male who presents today with a chief complaint of cough exacerbation. No definite fever but brown sputum. Has increased wheeze or rattle. This has been a chronic problem with intermittent spells of worsening cough and sputum. In the past it has improved with antibiotic. He has been occurring about every 2 months. He is taking medication for asthma or COPD. He always has a mildcough. No ST or ear pain. No chest pain. He has also been bothered by a rash in the axillae and also in his groin. He has not been using deodorant. He has used lotrimin cream in the groin. Has used other cream in the axillae. The rash has persisted and has been pruritic Patient Active Problem List Diagnosis ??? SPINAL [...] mouth every 4 hours as needed. ??? ALBUterol sulfate hfa 108 (90 BASE) MCG/ACT inhaler Inhale 2 Puffs by mouth every 4 hours as needed for Wheezing. ??? allopurinol (AKA ZYLOPRIM) 100 MG tablet Take 1 Tab by mouth daily. ??? dorzolamide (AKA TRUSOPT) 2 % eye drop solution Apply or instill 1 Drop into both eyes two timesa day. ??? doxycycline hyclate (AKA VIBRAMYCIN) 100 MG capsule Take 1 Cap by mouth two times a day. ??? doxycycline hyclate (AKA VIBRAMYCIN) 100 MG capsule Take 1 Cap by mouth two times a day. ??? fluconazole (AKA DIFLUCAN) 100 MG tablet Take 1 Tab by mouth daily. ??? fluticasone (AKA FLONASE) 50 MCG/ACT nasal solution Apply or instill 2 Sprays into both nostrilsdaily. ??? fluticasone (FLOVENT HFA) 110 MCG/ACT inhaler Inhale 1-2 Puffs by mouth two times a day. Increase per Asthma Action Plan when in yellow or red zone. ??? ketoconazole (AKA NIZORAL) 2 % cream Apply topically daily. ??? Multiple Vitamins-Minerals (ICAPS AREDS FORMULA OR) ??? omeprazole (AKA PRILOSEC) 20 MG capsule Take 1 Cap by mouth two times a day. Take 1 hour before a meal. ??? predniSONE (AKA DELTASONE) 20 MG tablet Take 2 Tabs by mouth daily for 7 days. ??? Psyllium (METAMUCIL) 0.52 G capsule Take 0.52 g by mouth daily. OBJECTIVE: BP 120/80 Pulse 84 Temp(Src) 98.1 ??F (36.7 ??C) (Oral) Resp 18 Ht 5' 9 (1.753 m) Wt 237 lb (107.502 kg) BMI 34.98 kg/m2 SpO2 97% EXAM: Alert oriented NAD Head: Atraumatic Neck: Supple Lungs: Scattered wheeze and rhonchi Heart: Regular without murmur No leg edema. Assessment: 1. Need for zoster vaccination 2. COPD (chronic obstructive pulmonary disease) 3. Fungal dermatitis PLAN: Orders Placed This Encounter ??? Zostavax Vaccine ??? ketoconazole (AKA NIZORAL) 2 % cream ??? doxycycline hyclate (AKA VIBRAMYCIN) 100 MG capsule ??? predniSONE (AKA DELTASONE) 20 MG tablet ??? fluconazole (AKA DIFLUCAN) 100 MG tablet He will use Nizoral cream for the rash. If not improving then try oral Diflucan. For the cough will use doxycycline. Add Prednisone if not improving. Zoster vaccine was given. Ramses Cleary MD documented in this encounter Plan of Treatment Not on filedocumented as of this encounter Visit Diagnoses Diagnosis Need for zoster vaccination - Primary Need for prophylactic vaccination and in oculation against varicella COPD (chronic obstructive pulmonary dise ase) (HRC) Chronic airway obstruction, not elsewher e classified Fungal dermatitis Dermatomycosis, unspecified documented in this encounter Care Teams Coke Oven Mason Relationship Specialty Start Date End Date Ramses Cleary MD PCP - General Family Practice 10/21/11 documented as of this encounter
--- OUTSIDE RECORDS SUMMARY | 2022-02-24 12:27 | XMS_ITS | Encounter Summary ---
:1935 Author Organization [facility] Address [address], [place] [address] Care Team Providers Name Role Phone Ramses Cleary MD Primary Care Provider Unavailable Reason for Visit Reason Onset Date Comments Refill 05/31/2013 OMEPRAZOLE Encounter Details Date Type Department Care Team Description 05/31/2013 Telephone [facility] Ramses Cleary, Refill (OMEPRAZOLE) [facility] Pr anjelica [facility] [address] [place] [address] [address] [phone] [place] [address] Social History Tobacco Use Types Packs/Day Years [...] this encounter Nursing Notes Sera Arora - 06/07/2013 8:13 AM CST Medication(s) approved by RN per Refill Protocol/Standing Order. Sera Arora RN 06/07/2013, 8:13 AM SHER ACCORDION Javan Hamlin - 06/06/2013 3:38 PM CST Pharm is calling to check the status of refill. Javan Hamlin 06/06/2013, 3:39 PM SHER ACCORDION Shea Johnson - 05/31/2013 11:22 AM CST Last Refilled: 02/28/13 PHARMACY FAXING 2ND REQUEST OMEPRAZOLE 20 MG CAPSULES #180 TAKE ONE CAP BY MOUTH TWICE DAILY 1 HOUR BEFORE A MEAL SHEA JOHNSON 05/31/2013 11:22 AM SHER ACCORDION documented in this encounter Plan of Treatment Not on filedocumented as of this encounter Visit Diagnoses Not on filedocumented in this encounter Care Teams Body Maker Relationship Specialty Start Date End Date Ramses Cleary MD PCP - General Family Practice 10/21/11 documented as of this encounter
--- OUTSIDE RECORDS SUMMARY | 2022-02-24 12:27 | XMS_ITS | Encounter Summary ---
:1935 Author Organization [employer] Address [address], [place] [address] Care Team Providers Name Role Phone Ramses Cleary MD Primary Care Provider Unavailable Reason for Referral Procedure/Equipment (Routine) - Closed Specialty Diagnoses / Procedures Referred By Contact Refer red To Contact Radiology [place] Procedures Maddy Fuentes Radiology CT CHEST WITH CONTRAST JESSA Griffith CNP [address] [place] [address] [place] [address] Phone: Referral ID Status Reason Start Date Expiration Date Visits Requ ested Visits Authorized [id number] Closed 07/22/2013 1 1 rocedure/Equipment (Routine) - Closed Specialty Diagnoses / Procedures Referred By Contact Refer red To Contact Pulmonary Maddy Fuentes Lv Respi ratory [facility] MARTI GERMAIN Pulmonary [address] [place] [address] [place] [address] Phone: Fax: Referral ID Status Reason Start Date Expiration Date Visits Requ ested Visits Authorized [id number] Closed 07/01/2013 1 1 Scheduling Instructions Your provider has recommended you to hav e a Pulmonary Function Test performed. You may call [phone] to schedule your a ppointment. Or a can sterilizer will contact within the next 3 business days to jensen t you in setting up this appointment. ET PLATEMAKER Reason for Visit Reason Comments BRONCHITIS Consult/Transfer Care (Routine) - Closed Specialty Diagnoses / Procedures Referred By Contact Refer red To Contact Pulmonary Diagnoses Chronic bronchitis (HRC) Asthma with acute exacerbation (HRC) Charley Rios, Cc Pulmonary JESSA, COMMERCIAL FISHER [address] [place] [address] [place] [address] Referral ID Status Reason Start Date Expiration Date Visits Requ ested Visits Authorized [id number] Closed 05/25/2013 1 1 Encounter Details Date Type Department Care Team Description 07/01/2013 Office Visit [facility] Jaymie Fuentes cough (Primary Dx); [facility] Maddy Griffith APRN, Unspecified asthma(493.90) [address] [place] [address] [address] [phone] [place] [address] Social History Tobacco Use Types Packs/Day Years [...] Sign Reading Time Taken Comments Blood Pressure 110/76 07/01/2013 9:25 AM OFFSET PLATEMAKER Pulse 66 07/01/2013 9:25 AM OFFSET PLATEMAKER Temperature - - Respiratory Rate - - Oxygen Saturation 99% 07/01/2013 9:25 AM OFFSET PLATEMAKER Inhaled Oxygen Concentration - - Weight - - Height - - Body Mass Index - - documented in this encounter Patient Instructions Patient InstructionsMaddy Fuentes APRN, CNP - 07/01/2013 10:01 AM OFFSET PLATEMAKER The 3 most common causes of chronic cough are postnasal drip, acid reflux (GERD) and asthma. In order to figure out the cause of your cough, and to help relieve your symtpoms, I recommend the following: -Start using a neti pot every morning and evening. A neti pot is used to rinse out the nose and sinuses in order to reduce inflammation and decrease postnasal drip. They are available at any pharmacy. -After you've rinsed with the neti pot in the morning, please use a nasal steroid (like flonase or nasonsex), 2 sprays in each nostril. This medication takes about 5-7 days to begin working. -Please buy prilosec OTC (omeprazole). This is a powerful antacid. Please take 2 tablet every morning for the next 4 weeks. -Start using albuterol (proventil or Proair) 2 puffs every 4 hours as needed for cough. -Stop using fluticasone inhaler and replace it with budesonide-formoterol (SYMBICORT) 160-4.5 MCG/ACT -Please schedule your breathing tests (pulmonary function tests) prior to your next visit. -Please schedule a follow-up appointment with me in approximately 6-8 weeks. ET PLATEMAKER documented in this encounter Progress Notes Maddy Fuentes APRN, CNP - 07/01/2013 11:15 AM OFFSET PLATEMAKER Addended by: MADDY FUENTES on: 07/01/2013 11:15 AM Modules accepted: Orders ET PLATEMAKER Maddy Fuentes, CUSTOMER CONTACT REPRESENTATIVE, COMMERCIAL FISHER - 07/01/2013 9:38 AM CST PULMONARY CONSULT Requesting Provider: Charley Rios NP [address] [place] [address] CC: Chronic cough and congestion HPI: 78 yr male with chronic cough for the past 6-12 months. Pt's cough is productive of yellow and clear sputum. It is worse with dust, tobacco smoke, exercise,wood smoke, cold air, exercise. Nasal drainage is present and he was recently started on Flonase nasal spray. Pt has not had hemoptysis. There is no associated chest pain, light headedness, post tusses emesis, or syncope/near syncope. Symptoms of acid reflux/heartburn are minimal when taking Omeprazole 20 mg BID. 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 He was previously on Advair but this was stopped because of Glaucoma. He is able to walk about 1/2 a block or 1 flight of stairs without becoming SOB. Activity is limited by chronic back pain. Medications that pt has tried to improve cough symptoms include: Advair, Albuterol, Flovent, singular, omeprazole ROS: Remaining 10-point review of systems was performed and was otherwise negative. PMHx: Patient Active Problem List Diagnosis ??? SPINAL [...] EPIDIDYMITIS, UNSPECIFIED ??? GERD (GASTROESOPHAGEAL REFLUX DISEASE) Medications: Current Outpatient Prescriptions Medication Sig ??? acetaminophen (AKA TYLENOL EXTRA STRENGTH) 500 MG tablet Take 500-1,000 mg by mouth every 4 hours as needed. ??? ALBUterol sulfate hfa 108 (90 BASE) MCG/ACT inhaler Inhale 2 Puffs by mouth every 4 hours as needed for Wheezing. ??? allopurinol (AKA ZYLOPRIM) 100 MG tablet Take 1 Tab by mouth daily. ??? ciprofloxacin (AKA CIPRO) 500 MG tablet Take 1 Tab by mouth two times a day. ??? ciprofloxacin (CIPRO) 500 MG tablet Take 1 Tab by mouth two times a day for 6 doses. Take 1st dose one hour before procedure, then take every 12 hours after until gone. ??? dorzolamide (AKA TRUSOPT) 2 % eye [...] Take 1 hour before a meal. ??? Psyllium (METAMUCIL) 0.52 G capsule Take 0.52 g by mouth daily. Allergies: Diphenhydramine Social History: Has a 40 PPD cigarette smoking history- quit smoking entirely at age 65. He is retired. Lives with his in a single family home in [place]. He is traveling to [place] for two weeks later this months for his 50th wedding anniversary. Family History: Family History Problem Relation Age [...] (ICD-V16.9)~Family Hx of HX, FAMILY, CARDIOVASCULAR * Physical Exam: BP 110/76 Pulse 66 SpO2 99% Estimated body mass index is 34.84 kg/(m^2) as calculated from the following: Height as of 06/20/13: 5' 9 (1.753 m). Weight as of an earlier encounter on 07/01/13: 236 lb (107.049 kg). GEN: NAD, pleasant, speaks in full sentences without accessory muscle use. HEENT: clear conjunctiva, MMM, no oral lesions, trachea midline, no submandibular, cervical or supraclavicular LAD, normal external pinnae and nares, normal nasal mucosa CHEST: CTA bilaterally, no rales or wheezes, normal excursion CV: RRR, no m/r/g ABD: soft, nondistended, nontender with NABS, no organomegaly EXT: no c/c/e, normal cap refill SKIN: without rashes NEURO: appropriate with normal speech, cranial nerves grossly intact Additional Information and Data: Spirometry from [facility] is not available for review during this visit. Imaging: Chest xray 05/25/13 FINDINGS: Heart size and vascularity are within normal limits. Lungs are hyperinflated with stable calcified granulomata left midlung. Old healed left-sided rib fractures. No pneumothorax or pleural effusion. Assessment, Medical Decision Making, and Discussion: 78 yr male here for evaluation of Chronic Coughand congestion for the past 6-12 months. He has a known history of Asthma since childhood and is followed by [facility]. He has a 40 PPD cigarette smoking history and quit completely about 13 years ago after the of his brother. Recommended treatment plan: The 3 most common causes of chronic cough are postnasal drip, acid reflux (GERD) and asthma. In order to figure out the cause of your cough, and to help relieve your symtpoms, I recommend the following: -Start using a neti pot every morning and evening. A neti pot is used to rinse out the nose and sinuses in order to reduce inflammation and decrease postnasal drip. They are available at any pharmacy. -Stop using Fluticasone inhaler and switch to Symbicort. -After you've rinsed with the neti pot in the morning, please use a nasal steroid (like flonase or nasonsex), 2 sprays in each nostril. This medication takes about 5-7 days to begin working. -Please buy prilosec OTC (omeprazole). This is a powerful antacid. Please take 2 tablet twice daily for the next 4 weeks. -Start using albuterol (proventil or Proair) 2 puffs every 4 hours as needed for cough. -Please schedule your breathing tests (pulmonary function tests) prior to your next visit. -Please schedule a follow-up appointment with me in approximately 6-8 weeks. ET PLATEMAKER documented in this encounter Plan of Treatment Scheduled Referrals Name Type Priority Associated Diagnoses Order S chedule PFT/SPIROMETRY Referral Routine Ordered: 06/15 documented as of this encounter Results CT CHEST WITH CONTRAST (07/22/2013 5:10 PM OFFSET PLATEMAKER) Anatomical Region Laterality Modality Chest, Lung Computed Tomography Specimen (Source) Anatomical Collection Method Collection Time Re ceived Time Location / / Volume Laterality 07/22/2013 7:13 PM OFFSET PLATEMAKER Narrative 07/22/2013 7:[address] CHEST W CONT 07/22/2013 5:10 PM [...] months or PET o r biopsy. Maddy Fuentes CUSTOMER CONTACT REPRESENTATIVE, COMMERCIAL FISHER RAD CT documented in this encounter Visit Diagnoses Diagnosis Chronic cough - Primary Cough Unspecified asthma(493.90) ([facility]) Unspecified asthma documented in this encounter Care Teams Phone Technician Relationship Specialty Start Date End Date Ramses Cleary MD PCP - General Family Practice 10/21/11 documented as of this encounter
--- OUTSIDE RECORDS SUMMARY | 2022-02-24 12:27 | XMS_ITS | Encounter Summary ---
:1935 Author Organization [employer] Address [address] [address] Care Team Providers Name Role Phone Ramses Cleary MD Primary Care Provider Unavailable Encounter Details Date Type Department Care Team Description 06/20/2013 Telephone [facility] Waqas Newton MD Urology [address] [place] [address] [place] [address] [phone] Social History Tobacco Use Types Packs/Day Years [...] documented as of this encounter Nursing Notes Sindy Pack LPN - 06/20/2013 10:32 AM CST Called patient to have him get his psa done a few days prior to appointment. Sindy Pack LPN 06/20/2013, 10:33 AM EGE ARCHIVIST documented in this encounter Plan of Treatment Not on filedocumented as of this encounter Visit Diagnoses Not on filedocumented in this encounter Care Teams Internet Cafe Manager Relationship Specialty Start Date End Date Ramses Cleary MD PCP - General Family Practice 10/21/11 documented as of this encounter
--- OUTSIDE RECORDS SUMMARY | 2022-02-24 12:27 | XMS_ITS | Encounter Summary ---
:1935 [facility] Organization [facility] Address [address], [place] [address] Care Team Providers Name Role Phone Ramses Cleary MD Primary Care Provider Unavailable Reason for Visit Reason Comments COUGH CONGESTION Encounter Details Date Type Department Care Team Description 01/26/2013 [facility] Ramses Cleary Chr onic bronchitis Beatriz Shipman MD (Primary Dx) Practice [address] [place] [place] [address] [place], [place] [phone] Social History Tobacco Use Types Packs/Day Years [...] Reading Time Taken Comments Blood Pressure 120/80 01/26/2013 2:50 PM CDT Pulse 73 01/26/2013 2:50 PM CDT Temperature 36.8 ??C (98.3 ??F) 01/26/2013 2:50 PM CDT Respiratory Rate 16 01/26/2013 2:50 PM CDT Oxygen Saturation 97% 01/26/2013 2:50 PM CDT Inhaled Oxygen Concentration - - Weight 108.4 kg (239 lb) 01/26/2013 2:50 PM CDT Height 174 cm (5' 8.5) 01/26/2013 2:50 PM CDT Body Mass Index 35.81 01/26/2013 2:50 PM CDT documented in this encounter Patient Instructions Patient InstructionsRamses Cleary MD - 01/26/2013 3:03 PM CDT Continue the Flovent regularly OK to use the albuterol if wheezing. Take the doxycycline if symptoms persist or worsen. documented in this encounter Progress Notes Ramses Cleary MD - 01/27/2013 8:05 AM CDT Zaid Rutledge is a 77 yr male who presents today with a chief complaint of congestion in his lungs. He guzman a hx of copd or asthma. This has been generally doing well. He has had a cough with some yellow phlegm for the last 10 days. Today he actually feels some better. He would hear a wheeze in his chest. This would be better with coughing up phlegm. No fever or chills. No ST or sinus pain. No otalgia. No tobacco use. He has been using his inhaler regularly Patient Active Problem List Diagnosis ??? SPINAL [...] by mouth two times a day. ??? fluticasone (AKA FLONASE) 50 MCG/ACT [...] by mouth daily. OBJECTIVE: BP 120/80 Pulse 73 Temp(Src) 98.3 ??F (36.8 ??C) Resp 16 Ht 5' 8.5 (1.74 m) Wt 239 lb (108.41 kg) BMI 35.81 kg/m2 SpO2 97% EXAM: Alert, oriented, NAD Neck supple without adenopathy or bruits Lungs: No rales. Some rhonchi and wheezes. Heart: Regular without murmur, click or rub. Neuro: Alert oriented and moves all extremities. No leg edema. Assessment: 1. Chronic bronchitis PLAN: Orders Placed This Encounter ??? doxycycline hyclate (AKA VIBRAMYCIN) 100 MG capsule Will treat with continued FLovent Will treat with antibiotic for flare of pulmonary symptoms Use the albuterol as needed. Recheck if persisting or worsening Ramses Cleary MD documented in this encounter Plan of Treatment Not on filedocumented as of this encounter Visit Diagnoses Diagnosis Chronic bronchitis (HRC) - Primary Unspecified chronic bronchitis documented in this encounter Care Teams Stock Clipper Relationship Specialty Start Date End Date Ramses Cleary MD PCP - General Family Practice 10/21/11 documented as of this encounter
--- OUTSIDE RECORDS SUMMARY | 2022-02-24 12:27 | XMS_ITS | Encounter Summary ---
:1935 Author Organization [employer] Address [address], [place] [address] Care Team Providers Name Role Phone Ramses Cleary MD Primary Care Provider Unavailable Reason for Referral Consult/Transfer Care (Routine) - Closed Specialty Diagnoses / Procedures Referred By Contact Refer red To Contact Pulmonary Diagnoses Chronic bronchitis (HRC) Asthma with acute exacerbation (HRC) Charley Rios Cc Pulmonary MARTI GERMAIN [address] [place] [address] [place] [address] Referral ID Status Reason Start Date Expiration Date Visits Requ ested Visits Authorized [id number] Closed 05/25/2013 1 1 Scheduling Instructions Your provider has recommended an appoint ment with a [facility] Specialist. You may call [phone] to schedule your appointment. OR MACHINE PASTER Procedure/Equipment (Routine) - Closed Specialty Diagnoses / Procedures Referred By Contact Refer red To Contact Radiology Hardesty Diagnoses Chronic bronchitis (HRC) Charley Rios Cc Radiology Procedures XR CHEST PA/AP AND LAT 2 VIEWS * MARTI GERMAIN [address] [place] [address] [place] [address] Phone: [phone] Fax: Referral ID Status Reason Start Date Expiration Date Visits Requ ested Visits Authorized [id number] Closed 05/25/2013 1 1 OR MACHINE PASTER Reason for Visit Reason Comments COUGH Encounter Details Date Type Department Care Team Description 05/25/[address] [facility] Charley Rios Ch ronic bronchitis (Primary Dx); Beatriz Sharif APRN, CNP Asthma with acute exacerbation Practice [address] [place] [address] [phone] Social History Tobacco Use Types Packs/Day Years [...] Reading Time Taken Comments Blood Pressure 110/70 05/25/2013 10:38 AM HAND OR MACHINE PASTER Pulse 68 05/25/2013 10:38 AM HAND OR MACHINE PASTER Temperature 36.6 ??C (97.8 ??F) 05/25/2013 10:38 AM HAND OR MACHINE PASTER Respiratory Rate 16 05/25/2013 10:38 AM HAND OR MACHINE PASTER Oxygen Saturation 98% 05/25/2013 10:38 AM HAND OR MACHINE PASTER Inhaled Oxygen Concentration - - Weight 105.7 kg (233 lb) 05/25/2013 10:38 AM HAND OR MACHINE PASTER Height - - Body Mass Index 34.41 04/01/2013 10:04 AM CDT documented in this encounter Patient Instructions Patient InstructionsCharley Rios APRN, CNP - 05/25/2013 11:03 AM HAND OR MACHINE PASTER Use albuterol inhaler 3-4 times per day for the next several days until feeling better. Take prednisone as prescribed as well as antibiotic. Will contact you with chest xray results. Schedule pulmonology consult appt. KASSANDRA Rankin 05/25/2013, 11:04 AM OR MACHINE PASTER documented in this encounter Progress Notes Charley Rios APRN, CNP - 05/25/2013 11:41 AM CST S: Zaid is a pleasant 78-year-old male patient that is presenting in the clinic today with concerns of worsening cough for greater than one week with difficult to clear thick secretions. He has also been experiencing some chest tightness associated with chest congestion. Complains of a mild sore throat mainly on the right side as well as tension like headache that is mild. Yesterday he was feeling quite run down. He has been having these bouts every couple of months with respiratory infections. He does have a history of asthma diagnosed at [age] years old. He was on Advair previously but due to his glaucoma he was taken off that medication and switch to Flovent twice a day. He sees an mgmt specialist Dr. Childs at [facility] and his most recent visit was February 2013. He is also on Flonase that he uses for allergy control as well as Singulair. He rarely uses his albuterol inhaler. He has never had a consult pulmonology that he can recall but is interested in one as hefeels he is getting too frequent respiratory tract infections. No significant shortness of breath. No palpitations. No chest pain. No known specific ill contacts. Does try to drink plenty of water to keep well hydrated. Reports that he has had a lesion of sorts to his left ear that he is noticed over the past 6-12 months but he cannot be quite sure exactly how long the lesion has been there. The area is a scab-like lesion and tends to get quite irritated and bleeds slightly. He reports a history of skin cancer but cannot recall what type to his right nare and therefore he is slightly concerned about this lesion as well and is wondering if this should be biopsied. Allergies Allergen Reactions ??? Acetaminophen Unknown Acetaminophen caffeine ??? Excedrin (Diphenhydramine) Breathing Difficulty Patient Active Problem List Diagnosis ??? SPINAL [...] EPIDIDYMITIS, UNSPECIFIED ??? GERD (GASTROESOPHAGEAL REFLUX DISEASE) Past Medical [...] ??? Cataract removal bilateral ??? Shoulder arthroscopy 08 rotator cuff. Family History Problem Relation Age of Onset [...] (ICD-V16.9)~Family Hx of HX, FAMILY, CARDIOVASCULAR * History Social History ??? Marital Status: Spouse Name: N/A Number of Children: N/A ??? Years of Education: N/A Occupational History ??? Not on file. Social History Main Topics ??? Smoking status: Former Smoker Quit date: 12/24/1997 ??? Smokeless tobacco: Never Used ??? Alcohol Use: Yes 0 - 14 drink(s) per week Comment: moderate ??? Drug Use: Not on file ??? Sexually Active: Not on file Other Topics Concern ??? Exercise Yes min. ??? 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 Moving to [place] in . Plugger Worker. Moving to [place] in . A comprehensive 6 point review of systems was negative except for items noted in HPI/Subjective. O: BP 110/70 Pulse 68 Temp(Src) 97.8 ??F (36.6 ??C) (Oral) Resp 16 Wt 233 lb (105.688 kg) BMI 34.39 kg/m2 SpO2 98% General: alert, oriented to person, place, time and normal hydration Head: atraumatic Eyes: PERRL, EOMI, corneas clear and conjunctivae clear Ears: pearly leach bilateral TMs and non-inflamed external ear canals, wears hearing aides bilaterally Nose: no rhinorrhea/nasal discharge Mouth/Throat: no exudates, no erythema and no dental tenderness Neck: no tenderness, supple and full AROM Chest/Pulmonary: no chest wall tenderness or deformities, no tachypnea, moderate inspiratory and expiratory wheezes throughout lung buck, harsh breath sounds to right lower lobe not clearing with coughing Cardiovascular: S1, S2 normal, regular rate and rhythm and no murmur Skin: no rashes, noted irritated lesion/scab to the top of the left pinna approx 0.5cm in length Psychiatric: affect/mood normal, cooperative, normal judgement/insight and memory intact A/P: 1. Chronic bronchitis doxycycline hyclate (AKA VIBRAMYCIN) 100 MG capsule, XR CHEST AP/PA AND LAT 2VWS, LUNG HEALTH/PULMONARY CONSULT-ADULT 2. Asthma with acute exacerbation predniSONE (AKA DELTASONE) 20 MG tablet, LUNG HEALTH/PULMONARY CONSULT-ADULT Treating for possible bacterial respiratory infection. He has had a history in the most recent past with periodic respiratory infections requiring antibiotics to clear the infection. He requested to see pulmonology which I think is a good idea for further assessment-order was placed and he will plan on scheduling an appointment in the next several weeks. A chest x-ray was performed and is pending. Prednisone prescribed. Given doxycycline for this possible bacterial infection as he has tolerated this medication well in the past without any concerning side effects. Recommended that he uses albuterol inhaler 3-4 times a day for symptom management for the next several days until he is feeling better. Recommended keeping well hydrated to help liquefy secretions. Schedule appt with Dr. Cordero for biopsy of lesion to the left pinna. Return to clinic if symptoms worsen or do not resolve as anticipated. Answered all questions. Zaid Rutledge verbalized understanding of the plan of care. Charley Rios, VETERINARY ASSISTANT-F 05/25/2013, 11:42 AM Patient was offered Health Maintenance services, but declined the following Advance Directives. This note was created using voice recognition software. Word substitutions may be present and are unintended. OR MACHINE PASTER documented in this encounter Plan of Treatment Scheduled Referrals Name Type Priority Associated Diagnoses Order S chedule LUNG Referral Routine Chronic bronchit is Ordered: 05/25/2013 HEALTH/PULMONARY Asthma with acute CONSULT-ADULT exacerbation documented as of this encounter Results XR CHEST PA/AP AND LAT 2 VIEWS * (05/25/2013 11:41 AM HAND OR MACHINE PASTER) Anatomical Region Laterality Modality Chest, Lung Computed Radiography Specimen (Source) Anatomical Collection Method Collection Time Re ceived Time Location / / Volume Laterality 05/25/2013 12:17 PM HAND OR MACHINE PASTER Narrative 05/25/2013 12:19 PM HAND OR MACHINE PASTER XR CHEST AP/PA AND LAT 2VWS 05/25/2013 [...] pneumothora x or pleural effusion. Charley Rios APRN, LOCAL FLATBED DRIVER RAD GD documented in this encounter Visit Diagnoses Diagnosis Chronic bronchitis (HRC) - Primary Unspecified chronic bronchitis Asthma with acute exacerbation (HRC) Unspecified asthma, with exacerbation Chronic bronchitis (HRC) - Primary Unspecified chronic bronchitis documented in this encounter Care Teams Drier Feeder Relationship Specialty Start Date End Date Ramses Cleary MD PCP - General Family Practice 10/21/11 documented as of this encounter
--- OUTSIDE RECORDS SUMMARY | 2022-02-24 12:27 | XMS_ITS | Encounter Summary ---
:1935 Author Organization [facility] Address [address] [address] Care Team Providers Name Role Phone Ramses Cleary MD Primary Care Provider Unavailable Reason for Visit Reason Onset Date Comments RESULTS, X-RAY 05/27/2013 Encounter Details Date Type Department Care Team Description 05/27/2013 Telephone [facility] Charley Rios, RESULTS, X-RAY [facility] Pr actice BUILDING EQUIPMENT OPERATOR, TRUCK OPERATOR [address] [place] [address] [place] [address] [phone] (Wo rk) Social History Tobacco Use Types [...] documented as of this encounter Nursing Notes Renee Stockton I - 05/27/2013 9:57 AM CST I called and informed patient of xray results below. Renee Stockton 05/27/2013, 9:57 AM ENTER/LABOR Charley Rios APRN, CNP - 05/27/2013 9:44 AM CST Results may take up to 10 days to result. I am happy to inform him he has no pneumonia or noticeablyconcerning findings on the xray. Lungs are a bit hyperinflated and may review further with Pulmonology as we discussed in the clinic for truck terminal manager care management/suggestions. Would rec continued treatment for possible bacterial infection based on his symptoms and past history with antibiotic that I already prescribed. KASSANDRA Rankin 05/27/2013, 9:47 AM ENTER/LABOR Renee Stockton I - 05/27/2013 9:18 AM CST Please comment on x-ray. Renee Stockton 05/27/2013, 9:18 AM Lyla Pierce - 05/27/2013 9:13 AM CST Reason for call? Pt states he never got his xray results. He would like a call to discuss. Best time to reach you? Anytime Ok to leave a detailed message? Yes Lyla Patel ....................................05/27/2013 9:13 AM ENTER/LABOR documented in this encounter Plan of Treatment Not on filedocumented as of this encounter Visit Diagnoses Not on filedocumented in this encounter Care Teams Renewals Representative Relationship Specialty Start Date End Date Ramses Cleary MD PCP - General Family Practice 10/21/11 documented as of this encounter
--- OUTSIDE RECORDS SUMMARY | 2022-02-24 12:27 | XMS_ITS | Encounter Summary ---
:1935 Author Organization formerly [facility] Address [address] [address] Care Team Providers Name Role Phone Ramses Cleary MD Primary Care Provider Unavailable Reason for Visit Reason Comments Hearing Aid Encounter Details Date Type Department Care Team Description 01/31/2013 Office Visit [facility] Vandana Summers hearing loss, [facility], AU.Steve arevalo ([facility] Dx) [address] [place] [address] Social History Tobacco Use Types Packs/Day Years [...] documented as of this encounter Progress Notes Vandana Summers AU.D. - 01/31/2013 4:37 PM CDT The Studio Coordinator performs an Otoscopic examination of both ear canals.Cerumen was successfully removed from both the right and the left ear canals. Both hearing instruments are cleaned and checked. Hearing aid tubing is replaced for both hearing instruments. Microphone filters and ear hooks are replaced and earmolds are thoroughly cleaned for both the right and left ears. A biologic listening check was performed. The hearing instrument settings are electroacoustically verified for appropriate power, clarity and performance. The patient was counseled regarding proper care, use and maintenance of hearing instruments. The patient agrees to follow up as scheduled for maintenance or sooner if needed. MICHAEL Johns .................... 01/31/2013 4:37 PM documented in this encounter Plan of Treatment Not on filedocumented as of this encounter Visit Diagnoses Diagnosis Neural hearing loss, bilateral - Primary documented in this encounter Care Teams Applications Administrator Relationship Specialty Start Date End Date Ramses Cleary MD PCP - General Family Practice 10/21/11 documented as of this encounter
--- OUTSIDE RECORDS SUMMARY | 2022-02-24 12:27 | XMS_ITS | Encounter Summary ---
:1935 Author Organization [employer] Address [address] [address] Care Team Providers Name Role Phone Ramses Cleary MD Primary Care Provider Unavailable Encounter Details Date Type Department Care Team Description 07/22/2013 Orders Only [facility], Laboratory Provider [address] [place] [address] [id number] Social History Tobacco Use Types Packs/Day Years [...] documented as of this encounter Procedure Notes [facility], Provider - 07/22/2013 12:00 AM CSTAssociated Order(s): SCANNED ORDER SETTER STEEL PAN FORMS documented in this encounter Plan of Treatment Not on filedocumented as of this encounter Procedures Procedure Name Priority Date/Time Associated Diagnosis Comme nts SCANNED ORDER 07/22/2013 12:00 AM Results for this FORM SETTER STEEL PAN FORMS procedure are i n the results section . documented in this encounter Results SCANNED ORDER (07/22/2013 12:00 AM FORM SETTER STEEL PAN FORMS) Specimen (Source) Anatomical Location Collection Method / Collectio n Time Received Time / Laterality Volume 07/22/2013 Narrative This result has an attachment that is no t available. Transcriptions [facility], Provider - 07/22/2013 12:00 AM CST Provider [facility] DUMMY/OTHER/AR documented in this encounter Visit Diagnoses Not on filedocumented in this encounter Care Teams Fill Plant Operator Relationship Specialty Start Date End Date Ramses Cleary MD PCP - General Family Practice 10/21/11 documented as of this encounter
--- OUTSIDE RECORDS SUMMARY | 2022-02-24 12:27 | XMS_ITS | Encounter Summary ---
:1935 Author Organization [facility] Address [address], [place] [address] Care Team Providers Name Role Phone Ramses Cleary MD Primary Care Provider Unavailable Reason for Visit Reason Comments SKIN LESION Encounter Details Date Type Department Care Team Description 06/20/2013 Office Visit [facility] Luis A Cordero ging skin lesion (Primary Dx); Beatriz Abraham MD [facility] [address] [place] [address] [place], [place] [phone] Social History Tobacco Use Types Packs/Day Years [...] Reading Time Taken Comments Blood Pressure 122/74 06/20/2013 3:11 PM HEALTH AND WELLNESS COORDINATOR Pulse 76 06/20/2013 3:11 PM HEALTH AND WELLNESS COORDINATOR Temperature - - Respiratory Rate 18 06/20/2013 3:11 PM HEALTH AND WELLNESS COORDINATOR Oxygen Saturation - - Inhaled Oxygen Concentration - - Weight 107 kg (236 lb) 06/20/2013 3:11 PM HEALTH AND WELLNESS COORDINATOR Height 175.3 cm (5' 9) 06/20/2013 3:11 PM HEALTH AND WELLNESS COORDINATOR Body Mass Index 34.85 06/20/2013 3:11 PM HEALTH AND WELLNESS COORDINATOR documented in this encounter Patient Instructions Patient InstructionsStringerLuis A MD - 06/20/2013 3:37 PM CST Images from the original note were not included. HOW TO CARE FORYOUR SKIN AFTER YOUR [...] Make a follow up appointment by calling [phone] if you have any signs of infection. Luis A Cordero Skin Lesions: After Your Visit Your Care Instructions A skin lesion is a general term used for the different types of bumps, spots, moles or other growthsthat may appear on your skin. Most skin lesions are harmless, but sometimes they can be a sign of skin cancer or other health problems. Depending on what type of lesion you have, your doctor may cut out all or a small area of the skin tissue and send it to a lab to be looked at under a microscope. This is called a biopsy. A biopsy may be done to figure out what the lesion is or to make sure it is not skin cancer. Follow-up care is a gonzales part of your treatment and safety. Be sure to make and go to all appointments, and call your doctor if you are having problems. It's also a good idea to know your test results and keep a list of the medicines you take. How can you care for yourself at home? ?? If your doctor removed or biopsied a skin lesion, keep the wound bandaged and dry for the first day. ?? After the first day, clean the wound with soap and water 2 times a day unless your doctor gives you different instructions. Don't use hydrogen peroxide or alcohol, which can slow healing. ?? You may cover the wound with a thin layer of petroleum jelly, such as Vaseline, and a nonstick bandage. ?? If you have stitches, you may get other instructions. You will have to return to have the stitches removed. ?? If a scab forms, do not pull it off. Let it fall off on its own. Wounds heal faster if no scab forms. Washing the area every day and using the ointment will help keep a scab from forming. ?? If the wound bleeds, put direct pressure on it with a clean cloth until the bleeding stops. ?? Take an mzvl-fho-eiiojvq pain medicine, such as acetaminophen (Tylenol), ibuprofen (Advil, Motrin), or naproxen (Aleve). Read and follow all instructions on the label. ?? Do not take two or more pain medicines at the same time unless the doctor told you to. Many pain medicines have acetaminophen, which is Tylenol. Too much acetaminophen (Tylenol) can be harmful. ?? If you had a growth frozen off with liquid nitrogen, you may get a blister. Do not break it. Let it dry up on its own. It is common for the blister to fill with blood. You do not need to do anything about this, but if it becomes too painful, call your doctor. When should you call for help? Call your doctor now or seek immediate medical care if: ?? You have signs of infection, such as: ?? Increased pain, swelling, warmth, or redness. ?? Red streaks leading from the wound. ?? Pus draining from the wound. ?? A fever. ?? The wound is bleeding a lot, and direct pressure does not stop it. Watch closely for changes in your health, and be sure to contact your doctor if: ?? You do not get better after 2 weeks of home care. Where can you learn more? Go to Verold/Vacatia and enter E372 in the search box. Last Revised: July 27, 2012 ?? [id number] [employer]. Learning About Healthy Travel Abroad How can you stay healthy on your trip? The best way to stay healthy on your trip is to plan ahead. Talk with your doctor at least 6 weeks before you travel to another country. That will give you time to get any vaccines that you may need. Also ask your doctor if there are medicines or extra safety steps that you should take. Check with your local health department or travel health clinic for other travel tips. What can you do to prevent health problems? Get needed vaccines ?? Make sure you are up to date with your routine shots. They can protect you from diseases such as polio, diphtheria, and measles. These diseases are still a problem in some developing countries. ?? Get other vaccines you need. Your doctor or a health clinic can tell you which ones you need for your travels. Here are some examples: ?? Hepatitis A vaccine, if you travel to developing countries. ?? Yellow fever vaccine, if you visit places in [place] where the disease is active. ?? Typhoid fever vaccine, if you travel to [place] and [place], or some areas of [place]. Bring medicines with you ?? If you take medicines, bring a supply that will last the length of your trip. Get a letter from your doctor that lists your medical conditions and the medicines you take. Bring prescriptions for refills if you will be gone for a long time. Also bring any medical supplies you may need such as blood sugar testing supplies or insulin needles. ?? If you are going to an area where malaria is a risk, ask your doctor or health clinic for a prescription to help prevent infection. This medicine works best if you take it before, during, and after your trip. ?? You may want to bring medicine for traveler's diarrhea. Loms-qnj-zzpdais medicines include: ?? Bismuth subsalicylate (Pepto-Bismol). ?? Loperamide (Imodium). Your doctor may also prescribe an antibiotic to take with you. This can treat diarrhea if you're going to an area where modern medical care isn't readily available. Make safer choices as you travel ?? Practice safe sex. Using condoms can prevent sexually transmitted infections. ?? In malaria-infected areas, use DEET insect repellent on exposed skin. Wear long pants and long-sleeved shirts, especially from dusk to david. Use mosquito netting to protect yourself from bites whileyou sleep. ?? Many developing countries don't have safe tap water. Only have drinks made with boiled water, such as tea and coffee. Canned or bottled carbonated drinks, such as soda, beer, wine, or water, are usually safe. Don't use ice if you don't know what kind of water was used to make it. And don't use tap water to brush your teeth. ?? Be aware that you could be injured in cars, boats, or public transportation. Driving can be dangerous due to bad roads, poor security patrol driver training, and crowded roadways. If you hire a security patrol driver or taxi, ask the security patrol driver to slow down or drive more carefully if you feel unsafe. ?? Air pollution in some large cities can be a problem if you have asthma or other breathing problems. Avoid those cities when air quality is poor. Or stay indoors as much as possible. ?? Be careful around dogs and other animals. Dogs in developing countries are often not tame and maybite. Rabies is more common in tropical and subtropical regions. ?? If you're going to a place that's much higher above sea level than you're used to, ask your doctor how to avoid altitude sickness. He or she may also prescribe medicine to help treat it. Where can you get the best information? ?? Use the Internet to find travel health information. Try these websites: ?? www.cdc.gov/travel. This website is for the Centers for Disease Control and Prevention (CDC). ?? www.who.int/ith/en. This website lists information from the World Health Organization (WHO) on travel, required immunizations, and disease outbreaks. ?? Find out where you can get the best medical care in the region you are visiting. See the [employer] Department's website at www.useCloud Logisticsassy.gov. It lists every [place] embassy worldwide. It also lists some doctors and medical facilities in those countries. ?? Take along the phone numbers and addresses of embassies in the areas you will visit. They can help you find a doctor or hospital. Find out if your insurance company will cover you. You may want to get special travel health insurance. ?? If you are taking a cruise, you can find your ship's health record on this website: www.cdc.gov/hieh/vsp. Where can you learn more? Go to Verold/Vacatia and enter R129 in the search box. Last Revised: July 15, 2012 ?? [id number] [employer]. TH AND WELLNESS COORDINATOR documented in this encounter Progress Notes Luis A Cordero MD - 06/27/2013 8:34 PM CST SUBJECTIVE: Zaid Rutledge is a 78 yr male who would like a complete skin check today. There is personal history of skin cancer. There is family history of skin cancer. Patient would like to have the following lesions removed. We have already discussed this procedure, including option of not performing surgery, technique of surgery and potential for scarring. Appears well, alert, oriented, pleasant and cooperative. Complete skin exam is performed. Lesion on left ear with patient's observations stated as being present for several years but last year began hannah crusty . OBJECTIVE: BP 122/74 Pulse 76 Resp 18 Ht 5' 9 (1.753 m) Wt 236 lb (107.049 kg) BMI 34.84 kg/m2 Exam: Skin: suspicious lesion, possible basal cell carcinoma, possible squamous cell carcinoma, features irregular border, nonpigmented, hyperkeratotic, inflamed, size 0.7 cm. 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 After informed consent was obtained, using ShurCleanse for cleansingand 1% Lidocaine with epinephrine for anesthetic, with sterile technique, 3 mm Bx obtained. Wound care instructions were provided. Be alert for any signs of cutaneous infection. The procedure was well tolerated without complications. Pathology was sent to [facility]. Sun protection with sunscreens and clothing to prevent skin cancer is discussed. The signs and symptoms of malignant skin lesions are reviewed with him today. Luis A Cordero TH AND WELLNESS COORDINATOR documented in this encounter Nursing Notes 06/20/2013 3:10 PM CST >> RENEE STOCKTON Mon Jun 20, 2013 3:12 PM Patient is here for a skin lesion on his left ear. Renee Stockton 06/20/2013, 3:10 PM documented in this encounter Plan of Treatment Not on filedocumented as of this encounter Results SURGICAL PATH (06/20/2013 6:00 AM HEALTH AND WELLNESS COORDINATOR) Patholo gist Method Time Signature Histology (NOTE) [facility] Final Report [facility] Patient Name: ZAID RUTLEDGE Taken: 06/20/2013 Received: 06/20/2013 Reported: 06/21/2013 Physician(s): LUIS A CORDERO ([id number]) ? Final Pathologic Diagnosis Skin, left ear, [...] two slides. ?? snp/06/21/2013 Kee Becerra MD [facility] Department of Pathology [address] [place] [address] ??[id number] Specimen Anatomical Collection Method Collection Time Receive d Time (Source) Location / / Volume Laterality EXCISION OF SKIN / 06/20/2013 6:00 AM 11/2013 5:43 Unknown HEALTH AND WELLNESS COORDINATOR PM HEALTH AND WELLNESS COORDINATOR Luis A Cordero MD LAB_1 Performing Organization Address City/State/ZIP Code Phon e Number [address] [address] documented in this encounter Visit Diagnoses Diagnosis Changing skin lesion - Primary Unspecified disorder of skin and subcuta neous tissue Traveler's diarrhea Infectious diarrhea documented in this encounter Care Teams Double End Production Grinder Relationship Specialty Start Date End Date Ramses Cleary MD PCP - General Family Practice 10/21/11 documented as of this encounter
--- OUTSIDE RECORDS SUMMARY | 2022-02-24 12:27 | XMS_ITS | Encounter Summary ---
:1935 Author Organization [facility] Address [address] [address] Care Team Providers Name Role Phone Ramses Cleary MD Primary Care Provider Unavailable Encounter Details Date Type Department Care Team Description 06/20/2013 Orders Only [facility] BPH (b enign prostatic [facility] hypertrophy) (Primary [address]) [place] [address] Social History Tobacco Use Types Packs/Day [...] as of this encounter Progress Notes Helene Ocampo APRN, CNP - 06/22/2013 10:46 AM CABLE TELEVISION INSTALLER Quick Note: Patient has upcoming appt. Helene Ocampo RN 06/22/2013, 10:46 AM E TELEVISION INSTALLER documented in this encounter Plan of Treatment Not on filedocumented as of this encounter Procedures Procedure Name Priority Date/Time Associated Diagnosis Comme nts PROSTATIC SPECIFIC Routine 06/20/2013 3:55 PM BPH (benign Res ults for this ANTIGEN (DIAGNOSTIC CABLE TELEVISION INSTALLER prostatic procedur e are in F/U) hypertrophy) the results section. documented in this encounter Results PROSTATIC SPECIFIC ANTIGEN (F/U) (06/20/2013 3:55 PM CABLE TELEVISION INSTALLER) athologist Signature Prostatic Spec 3.95 0.00 - [facility] Ag 4.00 ng/ml HOSPITAL Specimen Anatomical Collection Method Collection Time Receive d Time (Source) Location / / Volume Laterality 06/20/2013 3:55 PM 4 4:00 CABLE TELEVISION INSTALLER PM CABLE TELEVISION INSTALLER [facility] - 06/20/2013 6:48 PM CS T Performed at [facility], [address] [place] [address] Waqas Rodney MD LAB_1 Performing Organization Address City/State/ZIP Code Phon e Number [address] [address] documented in this encounter Visit Diagnoses Diagnosis BPH (benign prostatic hypertrophy) - Faviola felecia Hypertrophy of prostate without urinary obstruction and other lower urinary tract symptoms (LUTS) documented in this encounter Care Teams Squirt Machine Operator Relationship Specialty Start Date End Date Ramses Cleary MD PCP - General Family Practice 10/21/11 documented as of this encounter
--- OUTSIDE RECORDS SUMMARY | 2022-02-24 12:28 | XMS_ITS | Encounter Summary ---
:1935 Author Organization [employer] Address [address] [address] Care Team Providers Name Role Phone Ramses Cleary MD Primary Care Provider Unavailable Reason for Visit Reason Onset Date Comments Test Results 08/27/2012 urine culture Encounter Details Date Type Department Care Team Description 08/27/2012 Telephone [facility] Waqas Rodney Test Results (urine Group Urology JMD culture) [address] [facility] [address] [place] [place] [address] [address] [place], [place] [phone] Social History Tobacco Use Types Packs/Day Years [...] documented as of this encounter Nursing Notes Sarina Christianson RN - 08/27/2012 12:06 PM CDT Patient is called with his positive urine culture and his antibiotic is called in to the [facility] [place]. Liz documented in this encounter Plan of Treatment Not on filedocumented as of this encounter Visit Diagnoses Not on filedocumented in this encounter Care Teams Chief Of Pediatric Urology Relationship Specialty Start Date End Date Ramses Cleary MD PCP - General Family Practice 10/21/11 documented as of this encounter
--- OUTSIDE RECORDS SUMMARY | 2022-02-24 12:28 | XMS_ITS | Encounter Summary ---
:1935 Author Organization [facility] Address [address], [place] [address] Care Team Providers Name Role Phone Ramses Cleary MD Primary Care Provider Unavailable Reason for Visit Reason Onset Date Comments LAB RESULTS 03/26/2012 uric acid results Encounter Details Date Type Department Care Team Description 03/26/2012 Telephone [facility] Donnell Oliva, LAB RESULTS (uric [facility] DO acid results) Practice [address] [place] [address] [place], [place] [phone] Social History Tobacco Use Types Packs/Day Years [...] documented as of this encounter Nursing Notes Kristina Quinn CMA - 03/26/2012 3:52 PM CDT Left message to call back for results. Kristina Quinn CMA 03/26/2012 3:52 PM Please inform patient that uric acid is 6.1 with goal of less than 6. Since he has tolerated currentdose of allopurinol with decreased number of gouty flares, let's keep him at current dose. Thanks documented in this encounter Plan of Treatment Not on filedocumented as of this encounter Visit Diagnoses Not on filedocumented in this encounter Care Teams Transmission Supervisor Relationship Specialty Start Date End Date Ramses Cleary MD PCP - General Family Practice 10/21/11 documented as of this encounter
--- OUTSIDE RECORDS SUMMARY | 2022-02-24 12:28 | XMS_ITS | Encounter Summary ---
:1935 Author Organization [employer] Address [address], [place] [address] Care Team Providers Name Role Phone Unassigned, Provider Primary Care Provider Unavailable Encounter Details Date Type Department Care Team Description 03/17/2011 [facility] Waqas Rodney, Facesheet [place] [address] [place] [address] [place], [place] [address] (Wo rk) Social History Tobacco Use Types Packs/Day Years Used Date Smoking Tobacco: Former Alcohol Use Standard Drinks/Week Comments Not Asked 0 (1 standard drink = 0.6 oz pure alcoho l) Food Insecurity Answer Date Recorded Within the [...] documented as of this encounter Procedure Notes Waqas Rodney MD - 03/17/2011 12:00 AM CDTAssociated Order(s): LAB IP documented in this encounter Plan of Treatment Not on filedocumented as of this encounter Procedures Procedure Name Priority Date/Time Associated Diagnosis Comme nts LAB IP 03/17/2011 12:00 AM Results for this CDT procedure are i n the results section . documented in this encounter Results LAB IP (03/17/2011 12:00 AM CDT) Narrative This result has an attachment that is no t available. Transcriptions Waqas Rodney MD - 03/17/2011 12:0 0 AM CDT Waqas Rodney MD DUMMY/OTHER/AR documented in this encounter Visit Diagnoses Not on filedocumented in this encounter Care Teams Food Inspector Relationship Specialty Start Date End Date Unassigned, Provider PCP - General 12/31/06 10/20/[address] [place] [address] documented as of this encounter
--- OUTSIDE RECORDS SUMMARY | 2022-02-24 12:28 | XMS_ITS | Encounter Summary ---
:1935 Author Organization [employer] Address [address], [place] [address] Care Team Providers Name Role Phone Unassigned, Provider Primary Care Provider Unavailable Encounter Details Date Type Department Care Team Description 03/04/2011 [facility] Hx [facility] Bird Hewitt, Anesthesia Records [address] [place] [address] [address] [phone] [place] [address] Social History Tobacco Use Types Packs/Day Years [...] documented as of this encounter Procedure Notes Bird Hewitt MD - 03/04/2011 12:00 AM CDTAssociated Order(s): IMAGING REPORTS HX Bird Hewitt MD - 03/04/2011 12:00 AM CDTAssociated Order(s): LAB IP Bird Hewitt MD - 03/04/2011 12:00 AM CDTAssociated Order(s): ECG TRACING documented in this encounter Plan of Treatment Not on filedocumented as of this encounter Procedures Procedure Name Priority Date/Time Associated Diagnosis Comme nts XR KNEE LT 2 VIEWS Routine 03/04/2011 12:58 PM Re sults for this CDT procedure are i n the results section. IMAGING REPORTS HX 03/04/2011 12:00 AM Re sults for this CDT procedure are i n the results section. LAB IP 03/04/2011 12:00 AM Results for this CDT procedure are i n the results section. ECG TRACING 03/04/2011 12:00 AM Results for this CDT procedure are i n the results section. documented in this encounter Results XR KNEE 2VWS LT (03/04/2011 12:58 PM CDT) Anatomical Region Laterality Modality Lower Extremity, Knee Other Specimen (Source) Anatomical Collection Method Collection Time Re ceived Time Location / / Volume Laterality 03/04/2011 12:58 PM CDT Narrative 03/04/2011 2:15 PM CDT FINAL RESULT TWO VIEWS LEFT KNEE: Indication: ??Postoperative. ?? Findings: ??Two views of the left knee s how a left total knee arthroplasty. ??The femoral and tibial c omponents are in good position. ??There is a surgical drain pr esent. ?? READ BY:ARUNA ROONEY ? ARIANA/LUCIANO/[id number] APPROVED BY:Gladis ROONEY :58 :49 S:03-04-1114:15 Page 1 CONFIDENTIAL - INTENDED FOR HEALTHCAR E PROVIDER USE ONLY Procedure Note Aruna Rooney P - 07/15/2011 FINAL RESULT TWO VIEWS LEFT KNEE: Indication: Postoperative. Findings: Two views of the left knee sergio w a left total knee arthroplasty. The femoral and tibial com ponents are in good position. There is a surgical drain pres ent. READ BY:ARUNA LANE/LUCIANO/[id number] APPROVED BY:Gladis ROONEY :58 :49 S:03-04-1114:15 Page 1 CONFIDENTIAL - INTENDED FOR HEALTHCAR E PROVIDER USE ONLY Bird Hewitt MD RAD GD LAB IP (03/04/2011 12:00 AM CDT) Narrative This result has an attachment that is no t available. Transcriptions Bird Hewitt MD - 03/04/2011 12:00 AM CDT Bird Hewitt MD DUMMY/OTHER/AR IMAGING REPORTS HX (03/04/2011 12:00 AM CDT) Anatomical Region Laterality Modality Other Narrative This result has an attachment that is no t available. Transcriptions Bird Hewitt MD - 03/04/2011 12:00 AM CDT Bird Hewitt MD DUMMY/OTHER/AR ECG TRACING (03/04/2011 12:00 AM CDT) Narrative This result has an attachment that is no t available. Transcriptions Bird Hewitt MD - 03/04/2011 12:00 AM CDT Bird Hewitt MD EKG documented in this encounter Visit Diagnoses Not on filedocumented in this encounter Care Teams Head Greenskeeper Relationship Specialty Start Date End Date Unassigned, Provider PCP - General 12/31/06 10/20/[address] [place] [id number] documented as of this encounter
--- OUTSIDE RECORDS SUMMARY | 2022-02-24 12:28 | XMS_ITS | Encounter Summary ---
:1935 Author Organization [facility] Address [address] [address] Care Team Providers Name Role Phone Unassigned, Provider Primary Care Provider Unavailable Encounter Details Date Type Department Care Team Description 06/18/2007 [facility] Mark Boyd, PAY MENT AGREEMENT [address] [facility] [place] [facility] [place]. [address] [place] [address] [place], [place] [phone] Social History Tobacco Use Types Packs/Day Years [...] documented as of this encounter Progress Notes Mark Boyd - 09/07/2008 9:45 AM CDT documented in this encounter Plan of Treatment Not on filedocumented as of this encounter Visit Diagnoses Not on filedocumented in this encounter Care Teams Securities Vault Supervisor Relationship Specialty Start Date End Date Unassigned, Provider PCP - General 12/31/06 10/20/[address] [place] [address] documented as of this encounter
--- OUTSIDE RECORDS SUMMARY | 2022-02-24 12:28 | XMS_ITS | Encounter Summary ---
:1935 Author Organization [facility] Address [address], [place] [address] Care Team Providers Name Role Phone Ramses Cleary MD Primary Care Provider Unavailable Reason for Visit Reason Comments Refill Med refills CONGESTION chest congestion, cough Encounter Details Date Type Department Care Team Description 03/25/2012 Office Visit [facility] Donnell Oliva (Primary Dx); Beatriz Jennings DO Acute bronchitis; Practice [address] GERD (gastroesophageal reflu x disease); [address] [place] [address] [place], [place] [phone] Social History Tobacco Use Types Packs/Day Years [...] Sign Reading Time Taken Comments Blood Pressure 118/76 03/25/2012 3:01 PM CDT Pulse 68 03/25/2012 3:01 PM CDT Temperature 36.4 ??C (97.5 ??F) 03/25/2012 3:01 PM CDT Respiratory Rate 16 03/25/2012 3:01 PM CDT Oxygen Saturation - - Inhaled Oxygen Concentration - - Weight 104.8 kg (231 lb) 03/25/2012 3:01 PM CDT Height - - Body Mass Index 34.11 01/07/2012 8:29 AM CDT documented in this encounter Patient Instructions Patient InstructionsDonnell Oliva DO - 03/25/2012 3:33 PM CDT Get uric acid; z haroon; refill prescriptions; read about gerd documented in this encounter Progress Notes Donnell Oliva DO - 03/26/2012 6:59 AM CDT Quick Note: Please inform patient that uric acid is 6.1 with goal of less than 6. Since he has tolerated current dose of allopurinol with decreased number of gouty flares, let's keep him at current dose. Thanks. Destiny Lindsey - 03/25/2012 4:27 PM CDT Addended by: DESTINY LINDSEY on: 03/25/2012 04:27 PM Modules accepted: Orders Donnell Oliva DO - 03/25/2012 3:34 PM CDT This office note has been dictated. Donnell Oliva DO - 03/25/2012 12:00 AM CDT DATE OF SERVICE: 03/25/2012 CHIEF COMPLAINT: The patient is here for refill of his medications. HISTORY OF PRESENT ILLNESS: 1. Gout. Patient has a history of gout. Is taking allopurinol 100 mg per day. He has had a history of severe gouty attacks in the past. Has not had a severe attack for the last several years. I do not see a recent uric acid level. Has had a normal creatinine as recently as several months ago. 2. GERD.The patient has been controlled on Prilosec. He does not complain of any GERD symptoms while on Prilosec. Patient, of note, is a former tobacco user who does have a history of many major medical issues. He has a history of prostate cancer, gout, GERD, asthma, irritable bowel. 3. Cough. Patient notes that approximately 1 to 2 weeks ago, he had some viral URI symptoms consisting of rhinorrhea, sore throat and productive cough. He believes that his cough has improved significantly, but he is concerned because he is going on a cruise in the near future and he is still having some productive cough symptoms. He does have asthma and is taking currently Flovent b.i.d. as well as Singulair 10 mg a day, and albuterol on an as-needed basis. He reports a history of a wheeze associated with this last week, but that has since resolved. He still reports some vague chest congestion in the manubrium area. 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 REVIEW OF SYSTEMS: Negative except as per HPI. OBJECTIVE: Vital Signs: Blood pressure 118/76, respiratory rate of 16, temperature of 36.4. General: Alert, oriented, very pleasant 76-year-old male in no acute distress. Heart: Regular rate and rhythm without murmurs, rubs, gallops, clicks. Lungs: Clear to auscultation bilaterally without wheezes, crackles, rales, rhonchi. Neck: Supple. No tender lymphadenopathy. Oropharynx visualized and clear. IMPRESSION/REPORT/PLAN: 1. Gout, controlled. Plan: Will obtain uric acid goal of less than 6. Allopurinol prescription refilled for 100. May haveto increase if uric acid level is not to goal. 2. GERD, controlled. Plan: Patient issued prescription for Prilosec as it is currently controlled at present. Patient given handout from [employer] regarding non-medication ways to manage GERD. 3. Acute bronchitis. Plan: I have recommended observing for now as patient has continued to exhibit improvement. The patient given prescription for Z-Haroon in case his symptoms worsen or do not improve as expected while he is on his cruise. Greater than 25 minutes were spent with the patient, more than half of which was counseling and coordination of care. DO SERJIO Chao:sandy Dictated: 03/25/2012 15:39:40 Transcribed: 03/28/2012 11:23:53 Job: [id number] Doc: [id number] cc: documented in this encounter Plan of Treatment Not on filedocumented as of this encounter Procedures Procedure Name Priority Date/Time Associated Diagnosis Comme nts URIC ACID Routine 03/25/2012 4:27 PM Gout Results f or this CDT procedure are i n the results section . documented in this encounter Results URIC ACID (03/25/2012 4:27 PM CDT) P athologist Signature Uric Acid 6.1 3.5 - 7.2 [place] mg/dL [facility] Specimen Anatomical Collection Method Collection Time Receive d Time (Source) Location / / Volume Laterality 03/25/2012 4:27 PM 2 6:24 CDT PM CDT Donnell Oliva DO LAB_1 Performing Organization Address City/State/ZIP Code Phon e Number [facility] [address] [place] [address] documented in this encounter Visit Diagnoses Diagnosis Gout - Primary Gout, unspecified Acute bronchitis GERD (gastroesophageal reflux disease) Esophageal reflux Unspecified asthma(493.90) ([facility]) Unspecified asthma documented in this encounter Care Teams Special Education Case Manager Relationship Specialty Start Date End Date Ramses Cleary MD PCP - General Family Practice 10/21/11 documented as of this encounter
--- OUTSIDE RECORDS SUMMARY | 2022-02-24 12:28 | XMS_ITS | Encounter Summary ---
:1935 Author Organization [employer] Address [address], [place] [address] Care Team Providers Name Role Phone Unassigned, Provider Primary Care Provider Unavailable Encounter Details Date Type Department Care Team Description 02/27/2010 [facility] Waqas Rodney, eOR Record LV [address] [place] [address] [place] [address] (Wo rk) Social History Tobacco Use Types [...] encounter Procedure Notes Waqas Rodney MD - 02/27/2010 12:00 AM CDTAssociated Order(s): ECG TRACING Waqsa Rodney MD - 02/27/2010 12:00 AM CDTAssociated Order(s): PATHOLOGY documented in this encounter Plan of Treatment Not on filedocumented as of this encounter Procedures Procedure Name Priority Date/Time Associated Diagnosis Comme nts PATHOLOGY 02/27/2010 12:00 AM Results for this CDT procedure are i n the results section . ECG TRACING 02/27/2010 12:00 AM Results for this CDT procedure are i n the results section . documented in this encounter Results PATHOLOGY (02/27/2010 12:00 AM CDT) Narrative This result has an attachment that is no t available. Transcriptions Waqas Rodney MD - 02/27/2010 12:0 0 AM CDT Waqas Rodney MD DUMMY/OTHER/AR ECG TRACING (02/27/2010 12:00 AM CDT) Narrative This result has an attachment that is no t available. Transcriptions Waqas Rodney MD - 02/27/2010 12:0 0 AM CDT Waqas Rodney MD EKG documented in this encounter Visit Diagnoses Not on filedocumented in this encounter Care Teams Collection Systems Foreman Relationship Specialty Start Date End Date Unassigned, Provider PCP - General 12/31/06 10/20/[address] [place] [address] documented as of this encounter
--- OUTSIDE RECORDS SUMMARY | 2022-02-24 12:28 | XMS_ITS | Encounter Summary ---
:1935 Author Organization [facility] Address [address], [place] [address] Care Team Providers Name Role Phone Ramses Cleary MD Primary Care Provider Unavailable Reason for Visit Reason Comments Hearing Aid Encounter Details Date Type Department Care Team Description 09/29/2012 Office Visit [facility] Isidoro Neural hearing loss, [facility] & MICHAEL Roach bilateral ([facility] Dx) [address] [place] [phone] Social History Tobacco Use Types Packs/Day Years [...] encounter Progress Notes Mala Chaudhry AU.D. - 09/30/2012 9:55 AM CDT [employer] Consultant performs an Otoscopic examination of both ear [...] or sooner if needed. MICHAEL Nicolas .................... 09/30/2012 9:55 AM documented in this encounter Plan of Treatment Not on filedocumented as of this encounter Visit Diagnoses Diagnosis Neural hearing loss, bilateral - Primary documented in this encounter Care Teams Sailing Officer Relationship Specialty Start Date End Date Ramses Cleary MD PCP - General Family Practice 10/21/11 documented as of this encounter
--- OUTSIDE RECORDS SUMMARY | 2022-02-24 12:28 | XMS_ITS | Encounter Summary ---
:1935 Author Organization [employer] Address [address] [address] Care Team Providers Name Role Phone Unassigned, Provider Primary Care Provider Unavailable Encounter Details Date Type Department Care Team Description 09/24/2007 [facility] Milton Morin Op Report-Dictated [address] [place] [address] [phone] Social History Tobacco Use Types Packs/Day Years [...] documented as of this encounter Procedure Notes Milton Morin MD - 09/24/2007 12:00 AM CDTAssociated Order(s): ECG TRACING documented in this encounter Plan of Treatment Not on filedocumented as of this encounter Procedures Procedure Name Priority Date/Time Associated Diagnosis Comme nts ECG TRACING 09/24/2007 12:00 AM Results for this CDT procedure are i n the results section . documented in this encounter Results ECG TRACING (09/24/2007 12:00 AM CDT) Narrative This result has an attachment that is no t available. Transcriptions Milton Morin MD - 09/24/2007 12:0 0 AM CDT Milton Morin MD EKG documented in this encounter Visit Diagnoses Not on filedocumented in this encounter Care Teams Quality Improvement Manager Relationship Specialty Start Date End Date Unassigned, Provider PCP - General 12/31/06 10/20/[address] [place] [address] documented as of this encounter
--- OUTSIDE RECORDS SUMMARY | 2022-02-24 12:28 | XMS_ITS | Encounter Summary ---
:1935 Author Organization [employer] Address [address] [address] Care Team Providers Name Role Phone Unassigned, Provider Primary Care Provider Unavailable Encounter Details Date Type Department Care Team Description 03/25/2010 [facility] Waqas Rodney Anesthesia Records [address] [place] [address] [place] [address] [place] [address] [phone] [place] [address] Social History Tobacco Use Types Packs/Day Years [...] encounter Procedure Notes Waqas Rodney MD - 03/25/2010 12:00 AM CDTAssociated Order(s): LAB IP Waqas Rodney MD - 03/25/2010 12:00 AM CDTAssociated Order(s): ECG TRACING Waqas Rodney MD - 03/25/2010 12:00 AM CDTAssociated Order(s): PATHOLOGY documented in this encounter Plan of Treatment Not on filedocumented as of this encounter Procedures Procedure Name Priority Date/Time Associated Diagnosis Comme nts PATHOLOGY 03/25/2010 12:00 AM Results for this CDT procedure are i n the results section . LAB IP 03/25/2010 12:00 AM Results for this CDT procedure are i n the results section . ECG TRACING 03/25/2010 12:00 AM Results for this CDT procedure are i n the results section . documented in this encounter Results PATHOLOGY (03/25/2010 12:00 AM CDT) Narrative This result has an attachment that is no t available. Transcriptions Waqas Rodney MD - 03/25/2010 12:0 0 AM CDT Waqas Rodney MD DUMMY/OTHER/AR LAB IP (03/25/2010 12:00 AM CDT) Narrative This result has an attachment that is no t available. Transcriptions Waqas Rodney MD - 03/25/2010 12:0 0 AM CDT Waqas Rodney MD DUMMY/OTHER/AR ECG TRACING (03/25/2010 12:00 AM CDT) Narrative This result has an attachment that is no t available. Transcriptions Waqas Rodney MD - 03/25/2010 12:0 0 AM CDT Waqas Rodney MD EKG documented in this encounter Visit Diagnoses Not on filedocumented in this encounter Care Teams Pharmacology Teacher Relationship Specialty Start Date End Date Unassigned, Provider PCP - General 12/31/06 10/20/[address] [place] [address] documented as of this encounter
--- OUTSIDE RECORDS SUMMARY | 2022-02-24 12:28 | XMS_ITS | Encounter Summary ---
:1935 Author Organization [facility] Address [address], [place] [address] Care Team Providers Name Role Phone Ramses Cleary MD Primary Care Provider Unavailable Reason for Visit Reason Comments HEARING LOSS Encounter Details Date Type Department Care Team Description 09/28/2012 Office Visit [facility] Delvis Chaudhry hearing loss, [facility] MICHAEL Roach bilateral ([facility] Dx) [address] [place] [phone] Social History Tobacco Use Types Packs/Day Years [...] encounter Progress Notes Mala Chaudhry AU.D. - 09/29/2012 11:34 AM CDT DATE OF SERVICE: 09/28/2012 SUBJECTIVE: Patient was seen for otalgia, localized to the right side. He is certain that this represents a middle ear infection or an external ear infection, as he reports significant discomfort. OBJECTIVE: Otoscopic evaluation revealed the ear canal and the tympanic membrane to be clear. Tympanogram revealed normal middle ear function in the right ear, ruling out middle ear fluid. Manipulationof the TMJ reveals a significant amount of crepitus. 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 PLAN: Patient was advised and was provided with information to manage TMJ. If symptoms worsen or change, he was advised to contact his primary care physician. Jacky Nicolas:bgw Dictated: 09/29/2012 11:34:44 Transcribed: 09/30/2012 11:24:54 Job: [id number] Doc: [id number] cc: Mala Chaudhry AU.D. - 09/29/2012 11:27 AM CDT Tympanogram Right ear only. This office note has been dictated. MICHAEL Nicolas 09/29/2012, 11:28 AM documented in this encounter Procedure Notes Mala Chaudhry AU.D. - 09/28/2012 12:00 AM CDTAssociated Order(s): AUDIOLOGY DIAGNOSTIC documented in this encounter Plan of Treatment Not on filedocumented as of this encounter Procedures Procedure Name Priority Date/Time Associated Comments Diagnosis AUDIOLOGY DIAGNOSTIC 09/28/2012 12:00 AM Results for this CDT procedure are i n the results section. documented in this encounter Results AUDIOLOGY DIAGNOSTIC (09/28/2012 12:00 AM CDT) Specimen (Source) Anatomical Location Collection Method / Collectio n Time Received Time / Laterality Volume 09/28/2012 Narrative This result has an attachment that is no t available. Transcriptions Mala Chaudhry AU.D. - 09/28/2012 12:00 AM CDT Mala RODRIGUEZ DUMMY/OTHER/AR documented in this encounter Visit Diagnoses Diagnosis Neural hearing loss, bilateral - Primary documented in this encounter Care Teams Manager Systems Relationship Specialty Start Date End Date Ramses Cleary MD PCP - General Family Practice 10/21/11 documented as of this encounter
--- OUTSIDE RECORDS SUMMARY | 2022-02-24 12:28 | XMS_ITS | Encounter Summary ---
:1935 Author Organization [employer] Address [address], [place] [address] Care Team Providers Name Role Phone Ramses Cleary MD Primary Care Provider Unavailable Reason for Visit Reason Onset Date Comments Orders Needed 08/25/2012 ua Encounter Details Date Type Department Care Team Description 08/25/2012 Telephone [facility] Waqas Rodney, Orders Needed (ua) Urology [address] [place], [place] [phone] [address] [phone] [place], [place] [address] (Wo rk) Social History [...] encounter Nursing Notes Waqas Rodney MD - 08/26/2012 12:17 PM CDT UTI with neg UA. 2 weeks cipro 500 BID Sarina Christianson RN - 08/26/2012 8:15 AM CDT Patient askes that a rx be called in for cipro as they are leaving for vacation and he has frequent UTI's. Per Dr Rodney an rx for Cipro 500mg #14 is called into the [facility] in [place]. Sarina Christianson RN 08/26/2012, 8:17 AM Sarina Christianson RN - 08/25/2012 11:29 AM CDT Patient states that he has frequency and burning. He does self cath 4-6 times daily. A order is placed for ua and culture. Sarina Christianson RN 08/25/2012, 11:30 AM Shweta Louis - 08/25/2012 11:24 AM CDT Patient tried to return call. Shweta Louis CMA 08/25/2012, 11:24 AM Sarina Christianson RN - 08/25/2012 11:06 AM CDT Left message to home and cell numbers returning patient call Sarina Christianson RN 08/25/2012, 11:07 AM Shweta Arango - 08/25/2012 10:34 AM CDT Patient calls today he is wondering if he can come in just for UA, he is having pain in his groin like burning and urgency for a couple days, he does have to cath himself. He denies pain in abdomen or back and fever. He will be going out of town for vacation on Sat would like to have this cleared up if it is an infection. Shweta Louis CMA 08/25/2012 10:43 AM documented in this encounter Plan of Treatment Not on filedocumented as of this encounter Results (ABNORMAL) URINE CULTURE (08/25/2012 1:00 PM CDT) [facility] Method Time Signature Final Report Final [facility] Results (A) Comment: URINE SOURCE: Urine Clean Catch INTERPRETATION: ?? Abnormal RESULT: Escherichia coli (Isolate 1): >100,000 c ol/ml Sensitivity Analysis ?Isolate 1 ?--------- AMIKACIN ?16 ?S AMPICILLIN ?>=32 ?R AMPICILLIN/SULBACTAM ?16 ?I CEFAZOLIN ?<=4 ?S CIPROFLOXACIN ?>=4 ?R GENTAMICIN ? <=1 ?S IMIPENEM ? <=1 ?S LEVOFLOXACIN ? >=8 ?R NITROFURANTOIN ?32 ?S TOBRAMYCIN ?>=16 ?R TRIMETHOPRIM/SULFA ? >=320 ?R S=SUSCEPTIBLE ? I=INTERMEDIATE ? R=RESISTANT ? NOTE: ??WHEN THE FRIEDA AND CATEGORY CALL ( S, I, R) DO NOT CORRELATE, AN INTERPRETIVE CHANGE HAS BEEN MADE TO MOR E ACCURATELY PREDICT IN VIVO RESPONSE. Specimen Anatomical Collection Method Collection Time Receive d Time (Source) Location / / Volume Laterality Urine specimen 08/25/2012 1:00 PM 013 3:11 (specimen) CDT PM CDT Narrative [facility] - 08/27/2012 11:37 AM CDT This order was split into 3 orders: ??13 [id number], [id number], [id number] Waqas Rodney MD LAB_1 Performing Organization Address City/State/ZIP Code Phon e Number [facility] [address] [place] [address] (ABNORMAL) UA MICRO IF (08/25/2012 1:00 PM CDT) [facility] gist Method Time Signature Urine Color YELLOW Yellow - [place] [facility] [address] Urine Clarity CLEAR Clear [place] [facility] [address] Gluc NEGATIVE Negative [place] [facility] [address] Bili NEGATIVE Negative [place] [facility] [address] Ket NEGATIVE Negative [place] [facility] [address] Sp Gr <=1.005 (A) 1.005 - [place] [facility] [address] pH 6.0 4.5 - 8.0 [place] [facility] [address] Prot NEGATIVE Negative [place] [facility] [address] Urob 0.2 0.2 - 1.0 [place] [facility] [address] Nitr NEGATIVE Negative [place] [facility] [address] Blood NEGATIVE Negative [place] [facility] [address] Leuk NEGATIVE Negative [place] [facility] [address] Specimen Anatomical Collection Method Collection Time Receive d Time (Source) Location / / Volume Laterality 08/25/2012 1:00 PM 3 1:33 CDT PM CDT Narrative [facility] [address] - 08/25/2012 1:4 2 PM CDT This order was split into 3 orders: ??[id number], [id number], [id number] Waqas Rodney MD LAB_1 Performing Organization Address City/State/ZIP Code Phon e Number [facility] [address] [place], [place] [address] [place] [facility] [address] [place], [place] [address] documented in this encounter Visit Diagnoses Diagnosis Urinary frequency - Primary Urinary frequency documented in this encounter Care Teams Homeland Security Program Specialist Relationship Specialty Start Date End Date Ramses Claery MD PCP - General Family Practice 10/21/11 documented as of this encounter
--- OUTSIDE RECORDS SUMMARY | 2022-02-24 12:28 | XMS_ITS | Encounter Summary ---
:1935 Author Organization [employer] Address [address], [place] [address] Care Team Providers Name Role Phone Unassigned, Provider Primary Care Provider Unavailable Reason for Visit Reason Comments Skin Check Encounter Details Date Type Department Care Team Description 12/01/2007 Office Visit [facility] Romy, Personal History of Other Malignant Neoplasm of Skin; [address] [facility] Wilfred Scar Condition and Fibrosis of Skin; [address] Screening for [place]ignant [place] [address] [place], [place] [phone] Social History Tobacco Use Types Packs/Day Years [...] documented as of this encounter Progress Notes Wilfred Stanton - 12/01/2007 12:00 AM CDT Patient comes in today for followup status post Mohs surgery for BCC on his nose. He has no new worrisome changes or symptomatic lesions. No other skin problems. OBJECTIVE: Patient is in no acute distress, well nourished, well developed with appropriate effect, somewhat obese. Nose off to the mid and right tip and ala respectively, scar seems to be well healed. There are large telangiectases remaining on the left nose tip, status post one episode of KTP. Dr. Boyd is going to follow up with another. (Note: The telangiectases were there prior to surgery according to the patient). Full check from the waist up including head, neck, abdomen, chest, back, and upper extremities bilaterally reveals no worrisome lesions. There are a few scattered benign, but brown, clinically non-worrisome maculopapules about. ASSESSMENT: A few scattered benign pigmented nevi. Past history of BCC. PLAN: Reassurance. Return in a year for a full waist-up check, earlier if problems develop. 12/01/2007 11:00 A cc: documented in this encounter Plan of Treatment Not on filedocumented as of this encounter Visit Diagnoses Diagnosis Personal history of other malignant neop lasm of skin Scar condition and fibrosis of skin Screening for malignant neoplasm of the skin documented in this encounter Care Teams Field Sales Executive Relationship Specialty Start Date End Date Unassigned, Provider PCP - General 12/31/06 10/20/[address] [place] [address] documented as of this encounter
--- OUTSIDE RECORDS SUMMARY | 2022-02-24 12:28 | XMS_ITS | Encounter Summary ---
:1935 Author Organization [facility] Address [address], [place] [address] Care Team Providers Name Role Phone Ramses Cleary MD Primary Care Provider Unavailable Encounter Details Date Type Department Care Team Description 06/14/2012 Notes/Orders [facility] Waqas Rodney er outlet Group Urology MD Gladis obstruction (Primary [address] Dx) [place], [place] [address] [address] [place], [place] [phone] Social History Tobacco Use Types Packs/Day Years [...] as of this encounter Nursing Notes Vandana Pierre CMA - 06/14/2012 2:14 PM CST Lab called requesting UA. UA ordered. Vandana Pierre CMA 06/14/2012 2:14 PM UCT TECHNICIAN documented in this encounter Plan of Treatment Not on filedocumented as of this encounter Results (ABNORMAL) UA MICRO IF (06/14/2012 2:22 PM PRODUCT TECHNICIAN) [facility] gist Method Time Signature Urine Color YELLOW Yellow - [facility] [address] Urine Clarity HAZY Clear [facility] Gluc NEGATIVE Negative [facility] Bili NEGATIVE Negative [facility] Ket NEGATIVE Negative [facility] [address] Sp Gr 1.020 1.005 - [place] [facility] [address] pH 5.0 4.5 - 8.0 [facility] [address] Prot NEGATIVE Negative [facility] [address] Urob 0.2 0.2 - 1.0 [facility] [address] Nitr POSITIVE (A) Negative [facility] Blood NEGATIVE Negative [facility] Leuk NEGATIVE Negative [facility] Specimen Anatomical Collection Method Collection Time Receive d Time (Source) Location / / Volume Laterality 06/14/2012 2:22 PM 2 2:27 PRODUCT TECHNICIAN PM PRODUCT TECHNICIAN Narrative [facility] - 06/14/2012 2:3 4 PM PRODUCT TECHNICIAN This order was split into 2 orders: ??[id number], [id number] Waqas Rodney MD LAB_1 Performing Organization Address City/State/ZIP Code Phon e Number [facility] [address] [place], [place] [address] [facility] [address] [place], [place] [address] documented in this encounter Visit Diagnoses Diagnosis Bladder neck obstruction - Primary documented in this encounter Care Teams Hvac Sales Representative Relationship Specialty Start Date End Date Ramses Cleary MD PCP - General Family Practice 10/21/11 documented as of this encounter
--- OUTSIDE RECORDS SUMMARY | 2022-02-24 12:28 | XMS_ITS | Encounter Summary ---
:1935 Author Organization [employer] Address [address] [place] [address] Care Team Providers Name Role Phone Ramses Cleary MD Primary Care Provider Unavailable Encounter Details Date Type Department Care Team Description 01/05/2012 Orders Only [facility] Radiology Unkn own, Physician MRI [address] [place] [address] [place] [address] [phone] Social History Tobacco Use Types Packs/Day Years [...] documented as of this encounter Procedure Notes Lara Padilla PA-C - 01/05/2012 12:00 AM CDTAssociated Order(s): SCANNED ORDER documented in this encounter Plan of Treatment Not on filedocumented as of this encounter Procedures Procedure Name Priority Date/Time Associated Diagnosis Comme nts SCANNED ORDER 01/05/2012 12:00 AM Results for this CDT procedure are i n the results section . documented in this encounter Results SCANNED ORDER (01/05/2012 12:00 AM CDT) Specimen (Source) Anatomical Location Collection Method / Collectio n Time Received Time / Laterality Volume 01/05/2012 Narrative This result has an attachment that is no t available. Transcriptions Lara Padilla PA-C - 01/05/2012 12:0 0 AM CDT Physician Unknown DUMMY/OTHER/AR documented in this encounter Visit Diagnoses Not on filedocumented in this encounter Care Teams Retention Representative Relationship Specialty Start Date End Date Ramsse Cleary MD PCP - General Family Practice 10/21/11 documented as of this encounter
--- OUTSIDE RECORDS SUMMARY | 2022-02-24 12:28 | XMS_ITS | Encounter Summary ---
:1935 Author Organization [facility] Address [address], [place] [address] Care Team Providers Name Role Phone Ramses Cleary MD Primary Care Provider Unavailable Reason for Visit Reason Comments Hearing Aid Encounter Details Date Type Department Care Team Description 03/25/2012 Office Visit [facility] Isidoro Neural hearing loss, [facility] & MICHAEL Roach bilateral (Primary Hearing Center Dx) [address] [place] [place] [phone] Social History Tobacco Use Types Packs/Day Years [...] encounter Progress Notes Mala Chaudhry AU.D. - 03/30/2012 4:42 PM CDT The Dry Pan Operator performs an Otoscopic examination of both ear [...] or sooner if needed. MICHAEL Nicolas .................... 03/30/2012 4:42 PM documented in this encounter Plan of Treatment Not on filedocumented as of this encounter Visit Diagnoses Diagnosis Neural hearing loss, bilateral - Primary documented in this encounter Care Teams Group Tester Relationship Specialty Start Date End Date Ramses Cleary MD PCP - General Family Practice 10/21/11 documented as of this encounter
--- OUTSIDE RECORDS SUMMARY | 2022-02-24 12:28 | XMS_ITS | Encounter Summary ---
:1935 Author Organization [employer] Address [address], [place] [address] Care Team Providers Name Role Phone Unassigned, Provider Primary Care Provider Unavailable Encounter Details Date Type Department Care Team Description 05/04/2007 [facility] [place] [facility] Tesfaye Mukherjee, Faces[address] [address] [address] [place] [address] (Wo rk) Social History [...] documented as of this encounter Procedure Notes Tesfaye Mukherjee MD - 05/04/2007 12:00 AM CSTAssociated Order(s): COLONOSCOPY S Tesfaye Mukherjee MD - 05/04/2007 12:00 AM CSTAssociated Order(s): ECG TRACING documented in this encounter Plan of Treatment Not on filedocumented as of this encounter Procedures Procedure Name Priority Date/Time Associated Diagnosis Comme nts COLONOSCOPY S 05/04/2007 12:00 AM Results for this OFFICE ADMINISTRATION procedure are i n the results section . ECG TRACING 05/04/2007 12:00 AM Results for this OFFICE ADMINISTRATION procedure are i n the results section . documented in this encounter Results COLONOSCOPY S (05/04/2007 12:00 AM OFFICE ADMINISTRATION) Narrative This result has an attachment that is no t available. Transcriptions Tesfaye Mukherjee MD - 05/04/2007 12:00 AM CST Tesfaye Mukherjee MD DUMMY/OTHER/AR ECG TRACING (05/04/2007 12:00 AM OFFICE ADMINISTRATION) Narrative This result has an attachment that is no t available. Transcriptions Tesfaye Mukherjee MD - 05/04/2007 12:00 AM CST Tesfaye Mukherjee MD EKG documented in this encounter Visit Diagnoses Not on filedocumented in this encounter Care Teams Electrotyper Relationship Specialty Start Date End Date Unassigned, Provider PCP - General 12/31/06 10/20/[address] [place] [address] documented as of this encounter
--- OUTSIDE RECORDS SUMMARY | 2022-02-24 12:28 | XMS_ITS | Encounter Summary ---
:1935 Author Organization [employer] Address [address] [address] Care Team Providers Name Role Phone Unassigned, Provider Primary Care Provider Unavailable Reason for Visit Reason Comments Post Op Exam Encounter Details Date Type Department Care Team Description 01/07/2007 Office Visit [facility] Baron Rogers [facility] MD Clemencia [address], [address] [place] [address] [address] [place] [address] [place] [address] Social History Tobacco Use Types Packs/Day Years [...] documented as of this encounter Progress Notes Baron Rogers - 01/07/2007 12:00 AM CDT 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 OBJECTIVE: Today in the office, the periphery is healing with just a few small areas of crusting. The flat itself is 100% viable and the overall contour is settling in to be initially quite adequate. PLAN: We will continue local wound care. We have gave him instructions for scar therapy and we will see him in 2-3 weeks to assess his progress. A cc: documented in this encounter Plan of Treatment Not on filedocumented as of this encounter Visit Diagnoses Diagnosis Other and unspecified malignant neoplasm of skin of other and unspecified parts of face documented in this encounter Care Teams Aircraft Powerplant Repairer Relationship Specialty Start Date End Date Unassigned, Provider PCP - General 12/31/06 10/20/[address] [place] [address] documented as of this encounter
--- OUTSIDE RECORDS SUMMARY | 2022-02-24 12:28 | XMS_ITS | Encounter Summary ---
:1935 Author Organization [facility] Address [address], [place] [address] Care Team Providers Name Role Phone Ramses Cleary MD Primary Care Provider Unavailable Reason for Visit Reason Comments Hearing Aid Encounter Details Date Type Department Care Team Description 10/26/2012 Office Visit [facility] Isidoro Neural hearing loss, [place] [facility] & MICHAEL Roach bilateral (Primary [facility] Center Dx) [address] [place] [phone] Social History Tobacco Use Types Packs/Day Years [...] encounter Progress Notes Mala Chaudhry AU.D. - 10/28/2012 9:47 AM CDT The Nuclear Unit Operator performs an Otoscopic examination of both [...] or sooner if needed. MICHAEL Nicolas .................... 10/28/2012 9:47 AM documented in this encounter Plan of Treatment Not on filedocumented as of this encounter Visit Diagnoses Diagnosis Neural hearing loss, bilateral - Primary documented in this encounter Care Teams Hemodialysis Technician Relationship Specialty Start Date End Date Ramses Cleary MD PCP - General Family Practice 10/21/11 documented as of this encounter
--- OUTSIDE RECORDS SUMMARY | 2022-02-24 12:28 | XMS_ITS | Encounter Summary ---
:1935 Author Organization [facility] Address [address] [address] Care Team Providers Name Role Phone Ramses Cleary MD Primary Care Provider Unavailable Reason for Visit Reason Onset Date Comments Lab Orders Needed 06/14/2012 LAB ONLY APPOINTMENT TODAY Encounter Details Date Type Department Care Team Description 06/14/2012 [facility] Wa[facility]ney Orders Needed (LAB Beatriz Griffith MD ONLY APPOINTMENT [address] TODAY) [place], [place] [phone] [phone] [place] [address] Social History Tobacco Use Types Packs/Day Years [...] Nursing Notes Vandana Pierre CMA - 06/14/2012 12:38 PM CST PSA ordered. Vandana Pierre CMA 06/14/2012 12:39 PM SHOP MANAGER Elayne Luke - 06/14/2012 11:43 AM CST This patient has a Lab Only Visit appointment scheduled and does not currently have open orders available in the system to be released. Please place the orders in the system BEFORE the patient's scheduled appointment. If orders are not going to be placed please contact pt and inform them to cancel or reschedule appointment. Thank you ! Elayne Luke .................... 06/14/2012 11:43 AM APPOINTMENT INFORMATION: TODAY 06/14/2012 PSA per [facility]onel SHOP MANAGER documented in this encounter Plan of Treatment Not on filedocumented as of this encounter Results (ABNORMAL) PROSTATIC SPECIFIC ANTIGEN (F/U) (06/14/2012 1:15 PM BIKE SHOP MANAGER) P athologist Signature Prostatic Spec 4.9 (H) 0.0 - 4.0 [facility] ng/mL [facility] Specimen Anatomical Collection Method Collection Time Receive d Time (Source) Location / / Volume Laterality 06/14/2012 1:15 PM 2 2:27 BIKE SHOP MANAGER PM BIKE SHOP MANAGER Waqas Rodney MD LAB_1 Performing Organization Address City/State/ZIP Code Phon e Number [facility] [address] [place] [address] documented in this encounter Visit Diagnoses Diagnosis Prostate cancer ([facility]) - Primary Malignant neoplasm of prostate documented in this encounter Care Teams Log Chain Worker Relationship Specialty Start Date End Date Ramses Cleary MD PCP - General Family Practice 10/21/11 documented as of this encounter
--- OUTSIDE RECORDS SUMMARY | 2022-02-24 12:28 | XMS_ITS | Encounter Summary ---
:1935 Author Organization [employer] Address [address] [address] Care Team Providers Name Role Phone Unassigned, Provider Primary Care Provider Unavailable Reason for Visit Reason Onset Date Comments AFTERCARE, SURGICAL 01/04/2007 Encounter Details Date Type Department Care Team Description 01/04/2007 [facility] Carey Nieto RN AFTERCARE, SURGICAL Operating Room [address] [id number] [address] [place] [address] [place] [address] [phone] (Wo rk) Social History Tobacco Use Types [...] documented as of this encounter Nursing Notes Carey Nieto - 01/04/2007 9:08 AM CDT [facility] Follow-up ?? Was patient readmitted to the hospital? No Do you have any questions about the purpose of your new prescribed discharge medications? No Do you have any questions about their possible side effects? No Do you have questions about the danger signals to watch for after your procedure? No Do you have any questions about when you can resume your normal activities, such as, when you can return to work or drive a car? No Do you have any questions about your follow up appointment? No Are you having any pain after your surgery, if so, is the discharge pain medication you received helping? No Did you have nausea or vomiting when you went home? No Do you have additional questions? No How many attempts did it take to reach this patient? 1 You will be receiving a survey in the mail in approximately two weeks. Your feedback is important tous; we appreciate you taking the time to fill it out and return it to us. Carey Nieto RN documented in this encounter Plan of Treatment Not on filedocumented as of this encounter Visit Diagnoses Not on filedocumented in this encounter Care Teams Hat Sprayer Relationship Specialty Start Date End Date Unassigned, Provider PCP - General 12/31/06 10/20/[address] [place] [address] documented as of this encounter
--- OUTSIDE RECORDS SUMMARY | 2022-02-24 12:28 | XMS_ITS | Encounter Summary ---
:1935 Author Organization [employer] Address [address] [address] Care Team Providers Name Role Phone Ramses Cleary MD Primary Care Provider Unavailable Reason for Visit Reason Onset Date Comments Test Results 08/26/2012 cutlure results Encounter Details Date Type Department Care Team Description 08/26/2012 Telephone [facility] Waqas Rodney Test Results (cutlure Group Urology MD Gladis results) [address] [facility] [address] [place], [place] [address] [address] [place], [place] [phone] [address] Social History Tobacco Use Types Packs/Day Years [...] Nursing Notes Sarina Christianson RN - 08/27/2012 1:43 PM CDT Patient is notified of medication change for positive urine culture Sarina Christianson RN 08/27/2012, 1:55 PM Sarina Christianson RN - 08/26/2012 2:45 PM CDT Patient is left a message to call RN in regard to his culture results and antibiotic Sarina Christianson RN 08/26/2012, 2:45 PM documented in this encounter Plan of Treatment Not on filedocumented as of this encounter Visit Diagnoses Not on filedocumented in this encounter Care Teams Advisor Advocate Angel Co Founder Relationship Specialty Start Date End Date Ramses Cleary MD PCP - General Family Practice 10/21/11 documented as of this encounter
--- OUTSIDE RECORDS SUMMARY | 2022-02-24 12:28 | XMS_ITS | Encounter Summary ---
:1935 Author Organization [employer] Address [address] [address] Care Team Providers Name Role Phone Unassigned, Provider Primary Care Provider Unavailable Reason for Visit Reason Comments Post Op Exam Encounter Details Date Type Department Care Team Description 06/04/2007 Office Visit [facility] Plastic Baron Rogers MD Complications (Primary [facility], [address] [place] [address]) [address] [place] [address] Social History Tobacco Use Types Packs/Day Years [...] this encounter Progress Notes Baron Rogers - 06/04/2007 12:00 AM CARTRIDGE ASSEMBLING MACHINE ADJUSTER Patient who is seen back after having had a reconstruction of his nose with a flap. This has actually healed in wonderfully. He has lost the large dilated blood vessels, and he is looking to have the ones on the contralateral side taken care of. Unfortunately we do neither laser nor sclera therapy, and we have given him several names in the community that he can check on. There is a small area that has a suture protruding through it that is bleeding slightly. We removed this and cauterized this. Should this continue to bleed, or have features that are concerning, we would biopsy it in another week or so. He is in agreement with this plan, and we will see him back as needed. A cc: RIDGE ASSEMBLING MACHINE ADJUSTER documented in this encounter Plan of Treatment Not on filedocumented as of this encounter Visit Diagnoses Diagnosis Other specified complications - Primary documented in this encounter Care Teams Soil Technician Relationship Specialty Start Date End Date Unassigned, Provider PCP - General 12/31/06 10/20/[address] [place] [phone] documented as of this encounter
--- OUTSIDE RECORDS SUMMARY | 2022-02-24 12:28 | XMS_ITS | Encounter Summary ---
:1935 Author Organization [email or web address] Address [address], [place] [address] Care Team Providers Name Role Phone Unassigned, Provider Primary Care Provider Unavailable Reason for Visit Reason Comments Post Op Exam Encounter Details Date Type Department Care Team Description 01/21/2007 Office Visit [facility]metic [facility] Plastic Baron Rogers ow-Up Examination, Surgeons MD Clemencia Following Other [facility], [address] [place] [address] [address] [place] [address] [place], [place] [address] Social History Tobacco Use Types Packs/Day Years [...] this encounter Progress Notes Baron Rogers - 01/21/2007 12:00 AM CDT He returns after having had Mohs' reconstruction on the right side of his nose. Today in the office, there is a small bone. He had a couple spitting sutures removed and the interface is largely healed except for small anterior area. We will see him back in four to six weeks to reevaluate his lump and gauge his interval healing. A cc: documented in this encounter Plan of Treatment Not on filedocumented as of this encounter Visit Diagnoses Diagnosis Follow-up examination, following other s urgery documented in this encounter Care Teams Coconut Cooker Relationship Specialty Start Date End Date Unassigned, Provider PCP - General 12/31/06 10/20/[address] [place] [address] documented as of this encounter
--- OUTSIDE RECORDS SUMMARY | 2022-02-24 12:28 | XMS_ITS | Encounter Summary ---
:1935 Author Organization [employer] Address [address] [address] Care Team Providers Name Role Phone No Primary/Referring, Phy Primary Care Provider Unavailable Encounter Details Date Type Department Care Team Description 01/05/2012 Consent for [facility] LV MRI SAF ET Procedure/[facility], SCREENING CONSENT nt [address] [facility] Provider [place], [place] [address] Social History Tobacco Use Types Packs/Day Years [...] documented as of this encounter Progress Notes [facility], Provider - 01/05/2012 12:00 AM CDT documented in this encounter Plan of Treatment Not on filedocumented as of this encounter Visit Diagnoses Not on filedocumented in this encounter Care Teams Web Content Developer Relationship Specialty Start Date End Date No Primary/Referring, Phy PCP - General 12/11/21 documented as of this encounter
--- OUTSIDE RECORDS SUMMARY | 2022-02-24 12:28 | XMS_ITS | Encounter Summary ---
:1935 Author Organization [employer] Address [address] [address] Care Team Providers Name Role Phone No Primary/Referring, Phy Primary Care Provider Unavailable Encounter Details Date Type Department Care Team Description 06/18/2007 Consent for [facility] Mark Boyd CONSE NT FOR Procedure/Treatme 401 Mohs Surgery PROCEDURE nt [address] [place] [address] [place], [place] [phone] [address] Social History Tobacco Use Types Packs/Day Years [...] this encounter Progress Notes Mark Boyd - 06/18/2007 12:00 AM TELEVISION SCRIPT WRITER VISION SCRIPT WRITER documented in this encounter Plan of Treatment Not on filedocumented as of this encounter Visit Diagnoses Not on filedocumented in this encounter Care Teams Executive Assistant To General Counsel Relationship Specialty Start Date End Date No Primary/Referring, Phy PCP - General 12/11/21 documented as of this encounter
--- OUTSIDE RECORDS SUMMARY | 2022-02-24 12:28 | XMS_ITS | Encounter Summary ---
:1935 Author Organization [facility] Address [address] [address] Care Team Providers Name Role Phone Ramses Cleary MD Primary Care Provider Unavailable Encounter Details Date Type Department Care Team Description 08/25/2012 Orders Only [facility] [address] [place] [address] Social History Tobacco Use Types Packs/Day [...] Associated Diagnosis Comme nts URINE CULTURE Routine 08/25/2012 1:00 PM Urinary Frequency Res ults for this CDT procedure are i n the results section . UA MICRO IF Routine 08/25/2012 1:00 PM Urinary Frequency Resu lts for this CDT procedure are i n the results section . documented in this encounter Results (ABNORMAL) URINE CULTURE (08/25/2012 1:00 PM CDT) [facility] Method Time Signature Final Report Final [facility] Results (A) Comment: URINE SOURCE: Urine [...] 013 3:11 (specimen) CDT PM CDT Narrative [facility] - 08/27/2012 11:37 AM CDT This order was split into 3 orders: ??[id number], [id number], [id number] Waqas Rodney MD LAB_1 Performing Organization Address City/State/ZIP Code Phon e Number [facility] [address] [place] [address] (ABNORMAL) UA MICRO IF (08/25/2012 1:00 PM CDT) [facility] gist Method Time Signature Urine Color [...] This order was split into 3 orders: ??[id number], [id number], [id number] Waqas Rodney MD LAB_1 Performing Organization Address City/State/ZIP Code Phon e Number [facility] [address] [place], [place] [address] [facility] [address] [place], [place] [address] documented in this encounter Visit Diagnoses Diagnosis Urinary frequency documented in this encounter Care Teams Wellness Assistant Relationship Specialty Start Date End Date Ramses Cleary MD PCP - General Family Practice 10/21/11 documented as of this encounter
--- OUTSIDE RECORDS SUMMARY | 2022-02-24 12:28 | XMS_ITS | Encounter Summary ---
:1935 Author Organization [employer] Address [address] [address] Care Team Providers Name Role Phone Unassigned, Provider Primary Care Provider Unavailable Encounter Details Date Type Department Care Team Description 06/06/2009 [facility] Tan Caldwell Disch Instructions [address] [place] [address] [place] [address] [place] [address] Social History Tobacco Use Types Packs/Day Years [...] documented as of this encounter Procedure Notes Tan Caldwell MD - 06/06/2009 12:00 AM CSTAssociated Order(s): ECG TRACING Tan Caldwell MD - 06/06/2009 12:00 AM CSTAssociated Order(s): IMAGING REPORTS HX Tan Caldwell MD - 06/06/2009 12:00 AM CSTAssociated Order(s): LAB IP documented in this encounter Plan of Treatment Not on filedocumented as of this encounter Procedures Procedure Name Priority Date/Time Associated Diagnosis Comme nts XR CHEST 2 VIEWS Routine 06/06/2009 10:38 AM Resu lts for this EXCHANGE UNDERWRITING CONSULTANT procedure are i n the results section. IMAGING REPORTS HX 06/06/2009 12:00 AM Re sults for this EXCHANGE UNDERWRITING CONSULTANT procedure are i n the results section. LAB IP 06/06/2009 12:00 AM Results for this EXCHANGE UNDERWRITING CONSULTANT procedure are i n the results section. ECG TRACING 06/06/2009 12:00 AM Results for this EXCHANGE UNDERWRITING CONSULTANT procedure are i n the results section. documented in this encounter Results XR CHEST AP/PA AND LAT 2VWS (06/06/2009 10:38 AM EXCHANGE UNDERWRITING CONSULTANT) Anatomical Region Laterality Modality Chest, Lung Other Specimen (Source) Anatomical Collection Method Collection Time Re ceived Time Location / / Volume Laterality 06/06/2009 10:38 AM EXCHANGE UNDERWRITING CONSULTANT Narrative 06/06/2009 3:52 PM EXCHANGE UNDERWRITING CONSULTANT FINAL RESULT CHEST: Indication: ??Chest pain. ?? Comparison: ??[facility] N ove[place] 2006. Findings: ??PA and lateral demonstrate d iaphragm flattening consistent with obstructive pulmonary disease, left lung calcified granulomas, healed left clavicle fracture, and stabl e lower thoracic mild vertebral body compression fracture. ?? Heart size appears normal and lungs appe ar otherwise clear. ?? READ BY:LEANA PEREZ ? DAVID/OK/[id number] APPROVED BY:Tab PEREZ :14 :39 S:06-06-915:52 Page 1 CONFIDENTIAL - INTENDED FOR HEALTHCAR E PROVIDER USE ONLY DATE INFORMED: HOW CONTACTED: PHON E/MAIL/PERSON PATIENT NOTIFIED BY: INITIALS:___ __ Procedure Note Leana Perez - 07/16/2011Format ting of this note might be different from the original. FINAL RESULT CHEST: Indication: Chest pain. Comparison: [facility] Apr [facility]2006. Findings: PA and lateral demonstrate jayce phragm flattening consistent with obstructive pulmonary disease, left lung calcified granulomas, healed left clavicle fracture, and stabl e lower thoracic mild vertebral body compression fracture. Heart size appears normal and lungs appe ar otherwise clear. READ BY:LEANA PEREZ DFRita/OK/[id number] APPROVED BY:Tab PEREZ :14 :39 S:06-06-915:52 Page 1 CONFIDENTIAL - INTENDED FOR HEALTHCAR E PROVIDER USE ONLY DATE INFORMED: HOW CONTACTED: PHON E/MAIL/PERSON PATIENT NOTIFIED BY: INITIALS:___ __ Tan Caldwell MD RAD GD LAB IP (06/06/2009 12:00 AM EXCHANGE UNDERWRITING CONSULTANT) Narrative This result has an attachment that is no t available. Transcriptions Tan Caldwell MD - 06/06/2009 12:0 0 AM CST Tan Caldwell MD DUMMY/OTHER/AR IMAGING REPORTS HX (06/06/2009 12:00 AM EXCHANGE UNDERWRITING CONSULTANT) Anatomical Region Laterality Modality Other Narrative This result has an attachment that is no t available. Transcriptions Tan Caldwell MD - 06/06/2009 12:0 0 AM CST Tan Caldwell MD DUMMY/OTHER/AR ECG TRACING (06/06/2009 12:00 AM EXCHANGE UNDERWRITING CONSULTANT) Narrative This result has an attachment that is no t available. Transcriptions Tan Caldwell MD - 06/06/2009 12:0 0 AM CST Tan Caldwell MD EKG documented in this encounter Visit Diagnoses Not on filedocumented in this encounter Care Teams Cell Room Operator Relationship Specialty Start Date End Date Unassigned, Provider PCP - General 12/31/06 10/20/[address] [place] [id number] documented as of this encounter
--- OUTSIDE RECORDS SUMMARY | 2022-02-24 12:28 | XMS_ITS | Encounter Summary ---
:1935 Author Organization [employer] Address [address] [place] [address] Care Team Providers Name Role Phone Ramses Cleary MD Primary Care Provider Unavailable Encounter Details Date Type Department Care Team Description 01/05/2012 Imaging [facility] Radiology Subha fox, Lara Cancino, CASSANDRA MRI [address] [place] [address] [place] [address] [phone] Social History Tobacco Use Types Packs/Day Years [...] Priority Date/Time Associated Diagnosis Comme nts MR LUMBAR SPINE WO Routine 01/05/2012 6:33 PM Res ults for this IV CONT CDT procedure are i n the results section. documented in this encounter Results MR LUMBER SPINE WITHOUT CONTRAST (01/05/2012 6:33 PM CDT) Anatomical Region Laterality Modality Spine, L-Spine, Skeletal Magnetic Resona nce Specimen (Source) Anatomical Collection Method Collection Time Re ceived Time Location / / Volume Laterality 01/05/2012 6:33 PM CDT Narrative 01/06/2012 4:01 PM CDT MRI LUMBAR SPINE ?? 01/05/2012 ? INDICATION: Low back pain. Pain has pers isted for fifteen years. TECHNIQUE: Routine. COMPARISON: MRI lumbar spine 01/25/2003. FINDINGS: ??Five lumbar type vertebrae a re assumed. There is a scoliosis convex to the right at L2-3. This is sli ghtly more prominent than on the prior exam. Mild rightward shift of L3 o n L4 of approximately 1 cm as well as rightward shift of L1 on L2 of approx imately 1 cm. There is fusion at L5-S1 as well as narendra g the right aspect of L4-5 well seen on the coronal imaging. T12-L1: Moderate loss of T2 signal and l oss of disc height. Diffuse disc bulge with moderate narrowing of the rig ht neural foramina. No spinal canal stenosis. Moderate facet arthropathy. L1-2: Moderate loss of T2 signal and los s of disc height. Diffuse disc bulge with moderate narrowing of the rig ht neural foramina and severe narrowing of the left neural foramina in large part due to the scoliosis. Moderate facet arthropathy. Foraminal na rrowing has slightly progressed since the prior exam. L2-3: Loss of T2 signal and loss of disc height particularly on the left due to the scoliosis. Diffuse disc bulge with severe narrowing of the left neural foramina due to the scoliosis and spurring. Moderate narrowing of the right neural foramina. Overall this is unchanged. No spinal canal stenosis. Moderate facet arthropathy. L3-4: Moderate to severe loss of T2 sign al and loss of disc height. There is spinal canal stenosis which is modera te to severe. This is not significantly changed. Spinal canal krystal ures 6 mm AP. There is bilateral lateral recess stenosis. Severe narrowin g of both neural foramina. Moderate to severe facet arthropathy. L4-5: There is fusion across the disc sp tena on the right. This is seen on series 4: image 5 and on series 3: image 14. Moderate narrowing of the right neural foramina and moderate front to back narrowing of the left neural foramina. Significant loss of the residual disc height. Moderate facet arthropathy. L5-S1: There is fusion across L5-S1. Mil d spurring. No foraminal narrowing. IMPRESSION: 1. At T12-L1, there is moderate narrowin g of the right neural foramina. 2. At L1-2, there is a diffuse disc bulg e with moderate narrowing of the right neural foramina and severe narrowi ng of the left neural foramina due in large part to scoliosis. 3. At L2-3, there is a diffuse disc bulg e with severe narrowing of the left neural foramina and moderate narrowing of the right neural foramina. Overall this is unchanged. 4. At L3-4, there is spinal canal stenos is which is moderate to severe. This is not significantly changed. There is bilateral lateral recess stenosis as well as severe narrowing of both neural foramina and moderate to severe facet arthropathy. 5. At L4-5, there is fusion across the d isc space on the right. Moderate narrowing of the right neural foramina a nd moderate front to back narrowing of the left neural foramina. 6. There is also fusion seen across the L5-S1 disc space. Procedure Note Adenike Jo MD - 01/06/2012Formatti ng of this note might be different from the original. MRI LUMBAR SPINE 01/05/2012 INDICATION: Low back pain. Pain has pers isted for fifteen years. TECHNIQUE: Routine. COMPARISON: MRI lumbar spine 01/25/2003. FINDINGS: Five lumbar type vertebrae are assumed. There is a scoliosis convex to the right at L2-3. This is sli ghtly more prominent than on the prior exam. Mild rightward shift of L3 o n L4 of approximately 1 cm as well as rightward shift of L1 on L2 of approx imately 1 cm. There is fusion at L5-S1 as well as narendra g the right aspect of L4-5 well seen on the coronal imaging. T12-L1: Moderate loss of T2 signal and l oss of disc height. Diffuse disc bulge with moderate narrowing of the rig ht neural foramina. No spinal canal stenosis. Moderate facet arthropathy. L1-2: Moderate loss of T2 signal and los s of disc height. Diffuse disc bulge with moderate narrowing of the rig ht neural foramina and severe narrowing of the left neural foramina in large part due to the scoliosis. Moderate facet arthropathy. Foraminal na rrowing has slightly progressed since the prior exam. L2-3: Loss of T2 signal and loss of disc height particularly on the left due to the scoliosis. Diffuse disc bulge with severe narrowing of the left neural foramina due to the scoliosis and spurring. Moderate narrowing of the right neural foramina. Overall this is unchanged. No spinal canal stenosis. Moderate facet arthropathy. L3-4: Moderate to severe loss of T2 sign al and loss of disc height. There is spinal canal stenosis which is modera te to severe. This is not significantly changed. Spinal canal krystal ures 6 mm AP. There is bilateral lateral recess stenosis. Severe narrowin g of both neural foramina. Moderate to severe facet arthropathy. L4-5: There is fusion across the disc sp tena on the right. This is seen on series 4: image 5 and on series 3: image 14. Moderate narrowing of the right neural foramina and moderate front to back narrowing of the left neural foramina. Significant loss of the residual disc height. Moderate facet arthropathy. L5-S1: There is fusion across L5-S1. Mil d spurring. No foraminal narrowing. IMPRESSION: 1. At T12-L1, there is moderate narrowin g of the right neural foramina. 2. At L1-2, there is a diffuse disc bulg e with moderate narrowing of the right neural foramina and severe narrowi ng of the left neural foramina due in large part to scoliosis. 3. At L2-3, there is a diffuse disc bulg e with severe narrowing of the left neural foramina and moderate narrowing of the right neural foramina. Overall this is unchanged. 4. At L3-4, there is spinal canal stenos is which is moderate to severe. This is not significantly changed. There is bilateral lateral recess stenosis as well as severe narrowing of both neural foramina and moderate to severe facet arthropathy. 5. At L4-5, there is fusion across the d isc space on the right. Moderate narrowing of the right neural foramina a nd moderate front to back narrowing of the left neural foramina. 6. There is also fusion seen across the L5-S1 disc space. Lara Padilla PA-C RAD MRI documented in this encounter Visit Diagnoses Not on filedocumented in this encounter Care Teams Thermoforming Operator Relationship Specialty Start Date End Date Ramses Cleary MD PCP - General Family Practice 10/21/11 documented as of this encounter
--- OUTSIDE RECORDS SUMMARY | 2022-02-24 12:28 | XMS_ITS | Encounter Summary ---
:1935 Author Organization [facility] Address [address], [place] [address] Care Team Providers Name Role Phone Ramses Cleary MD Primary Care Provider Unavailable Reason for Visit Reason Onset Date Comments Lab Orders Needed 06/14/2012 Encounter Details Date Type Department Care Team Description 06/14/2012 Telephone [facility] Waqas Rodney, Lab Orders Needed Beatriz maldonado MD [address] [place] [address] [phone] [place] [address] (Wo rk) Social History Tobacco Use Types [...] Nursing Notes Vandana Pierre CMA - 06/14/2012 1:38 PM CST psa already ordered. Vandana Pierre CMA 06/14/2012 1:38 PM TRIC REFRIGERATOR SERVICER Sushma Howard - 06/14/2012 1:16 PM CST Patient has an appointment with Dr. Rodney on Thursday and he left a urine sample here today becausehe has to self cath himself, and he brought his catheter with him. Please place order JORGE.. Thanks.Sushma Howard, scrum coach ................06/14/2012 1:17 PM TRIC REFRIGERATOR SERVICER documented in this encounter Plan of Treatment Not on filedocumented as of this encounter Visit Diagnoses Not on filedocumented in this encounter Care Teams Food Storeroom Clerk Relationship Specialty Start Date End Date Ramses Cleary MD PCP - General Family Practice 10/21/11 documented as of this encounter
--- OUTSIDE RECORDS SUMMARY | 2022-02-24 12:28 | XMS_ITS | Encounter Summary ---
:1935 Author Organization [employer] Address [address] [address] Care Team Providers Name Role Phone Unassigned, Provider Primary Care Provider Unavailable Reason for Visit Reason Comments Post Op Exam Encounter Details Date Type Department Care Team Description 01/12/2007 Office Visit [facility]metic [facility] Plastic Kam Mittal MD Mal ig [facility], [address] [place] [address] Social History Tobacco Use Types Packs/Day Years [...] documented as of this encounter Progress Notes Keara Brown - 01/12/2007 12:00 AM CDT SUBJECTIVE: Zaid is here with concerns of possible infection after flap closure of a right sided nasal Mohs defect. He is concerned as he has had some clear yellow drainage. He has not had fever or chills and has otherwise been feeling relatively well. OBJECTIVE: On examination the flap is pink and healthy. There are a few extruding sutures in the middle most portion of the flap that were removed today. There is a small open area that measures about 2 millimeters x 3 millimeters. The surrounding skin is clean and there are no signs of infection. ASSESSMENT and PLAN: I reassured him that things are healing well. He has not yet seen Dr. Rogers postoperatively and would like to visit with him, so will therefore have him return for follow-up next week. We discussed gently cleansing the area and keeping it clean with antibiotic ointment. A cc: documented in this encounter Plan of Treatment Not on filedocumented as of this encounter Visit Diagnoses Diagnosis Other and unspecified malignant neoplasm of skin of other and unspecified parts of face documented in this encounter Care Teams Aged Or Disabled Carer Relationship Specialty Start Date End Date Unassigned, Provider PCP - General 12/31/06 10/20/[address] [place] [id number] documented as of this encounter
--- OUTSIDE RECORDS SUMMARY | 2022-02-24 12:28 | XMS_ITS | Encounter Summary ---
:1935 Author Organization [employer] Address [address], [place] [address] Care Team Providers Name Role Phone Unassigned, Provider Primary Care Provider Unavailable Reason for Visit Reason Comments LASER TREATMENT Encounter Details Date Type Department Care Team Description 06/18/2007 Office Visit [facility] Mark Boyd, Other Plastic Surgery for Unacceptable Cosmetic Appearance (Primary Dx); [facility] Hereditary Hemorrhagic Telangiectasia [address] [place] [address] [place], [place] [phone] [address] Social History Tobacco Use Types Packs/Day Years [...] as of this encounter Patient Instructions Patient InstructionsSpRosina rincon - 06/18/2007 7:05 AM CST Wound Care for the KTP Laser What to expect after your laser treatment: ?? The treated area(s) will appear pale, and may be surrounded by areas of redness. Sometimes the entire treated area will appear red and slightly swollen or puffy. The redness and swelling will decrease over the next 2-3 days. You will experience a slight to moderate stinging or burning sensation in the treated area. This will subside over the next few hours. Occasionally crusting or scaling may develop on the treated area. Please refer to the wound care instructions below if this should occur. The blood vessels that were treated should gradually fade over the next 1-2 months. Occasionally some of the blood vessels may need to be retreated After your laser treatment, we will apply a steroid ointment to the area. This is a one time application only. After Care: To help the area to heal, please follow these after care instructions carefully: Wash the steroid ointment off after 4-6 hours. Avoid scratching or rubbing the treated area. You may shower and get the treated area wet, provided that the skin is intact; however, please be gentle with the treated skin. You may keep the treated skin moist by using your usual moisturizer. However, if the treated area should get crusty or scaly, you should keep these areas moist by applying Vaseline or Bacitracin ointment 1-2 times a day until these areas heal. Shaving may be performed, as long as the skin is intact and is treated gently. Please do not apply make-up for the first day. After this, make-up may be used, provided that the skin is intact. If there is any crusting, please apply a topical antibiotic ointment as described above. Any bruised skin should be protected from the sun, as sun exposure increases the risk of having pigmentary changes occur in these areas. Gently apply sunscreen (minimum of SPF 30, with broad-spectrum UVA/UVB coverage) if sun exposure is unavoidable. Covering any bruised skin with a bandage and sun-protective clothing is best. If bandages are required over these areas, do not allow the adhesive on thebandages to contact the treated skin until they have healed. You do not need to restrict your activity level, although you should avoid activities that may causeinjury to the treated area. Call us if: ?? You develop blisters or open sores on the treated area(s). You have signs or symptoms of infection, such as a fever over 100 degrees Fahrenheit, or increasing redness, warmth, or foul smelling drainage from the treated area. You have any questions or are not sure how to take care of the treated area. Phone numbers: ?? During office hours (8AM through 4:30PM), we may be reached at . After hours, please contact the Care Line and ask for the Dermatologic Surgeon workplace relations adviser at . 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 This was repaired by Dr. Baron Rogers of Plastic Surgery. At that visit, he was noted to have multiple large-calibre telangiectasias on his nose, and we had discussed treatment with the KTP laser. Zaid Rutledge returns to clinic today for treatment with the KTP laser. Please see the consult note for further details. PHYSICAL EXAMINATION Constitutional: On physical examination, I found a pleasant 72 yr male, who was alert and oriented and in no apparent distress. Head: On the right nasal supratip, there is a well-healed flap. He has numerous large calibre telangiectasias on his nasal tip, dorsum, sidewalls, and alae. He has a few scattered telangiectasias on his cheeks bilaterally. Neck: Unremarkable for any suspicious skin lesions. He refused complete skin examination beyond this. ASSESSMENT: Telangiectasias PLAN: 1. Today we had an extensive discussion about the therapeutic options, including KTP laser treatments and the option of no treatment. For the KTP laser treatments, we discussed the side effects which include, but are not limited to, pain, bruising, erythema, blistering, crusting, scarring, hyper- or hy popigmentation, recurrence, inadequate treatment, and the need for multiple treatments. Zaid J Meyerhas opted for KTP laser treatments, and this was performed today. Please see the procedure note for further details. 2. The procedure was cosmetic, and Zaid Rutledge was charged $375 total ($175 [employer] laser rental fee, and $200 [employer] fee). 3. I recommended sun protective measures on a daily basis. 4. Zaid Rutledge will return to clinic in two months for further KTP laser treatments, or sooner should they have any questions or concerns. Mark Boyd MD 06/18/2007 NAME OF PROCEDURE: KTP LASER TREATMENT (wavelength: 532 nm) Surgeon: Mark Boyd MD [facility] PREOPERATIVE DIAGNOSIS: Telangiectasias POSTOPERATIVE DIAGNOSIS: Same TREATMENT#: 1 INDICATIONS: This patient presents with telangiectasias situated on the bilateral cheeks and the nose, overlying the tip, dorsum, sidewalls, and alae. Treatment with the KTP laser is indicated. We discussed the principles of treatment and the most likely complications including, but not limited to, pain, scarring, blistering, crusting, hyper- or hypopigmentation, bruising, recurrence, and the need for re-treatment. Zaid Rutledge understands that multiple treatments will be necessary. Informed consentwas obtained. The patient then underwent the following procedure: PROCEDURE: The patient was taken to the laser suite and laid supine on the laser table. The area to be treated was defined and confirmed with the patient. Both patient and staff wore protective eyewearand other standard safety precautions were taken. The KTP laser was calibrated to 10 J/cm2, with a pulse duration of 10 ms and a rate of 2 pules/sec. Using a 2 mm spot size, one pass was made over eachof the smaller discrete telangiectasias, tracing out each vessel. The laser was then recalibrated to10 J/cm2, with a pulse duration of 15ms and a rate of 2 pulses/sec. Using a 2mm spot size, one pass was made over the larger calibre telangiectasias. At the completion of the procedure, all of the vessels were no longer visible. Zaid Rutledge viewed the area with a handheld mirror, and agreed that all vessels had been completely treated. Fluocinonide ointment was applied immediately to the treated area. Standard written and verbal post-operative wound care instructions were given. The patient was discharged from the [facility] alert and ambulatory. 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
--- OUTSIDE RECORDS SUMMARY | 2022-02-24 12:28 | XMS_ITS | Encounter Summary ---
:1935 Author Organization [employer] Address [address] [place] [address] Care Team Providers Name Role Phone Ramses Cleary MD Primary Care Provider Unavailable Encounter Details Date Type Department Care Team Description 01/05/2012 Office Visit [facility] Admitting Provider [address] [place] [id number] Social History Tobacco Use Types Packs/Day Years [...] documented as of this encounter Progress Notes [facility], Provider - 01/05/2012 12:00 AM CDT documented in this encounter Plan of Treatment Not on filedocumented as of this encounter Visit Diagnoses Not on filedocumented in this encounter Care Teams Health And Safety Inspector Relationship Specialty Start Date End Date Ramses Cleary MD PCP - General Family Practice 10/21/11 documented as of this encounter
--- OUTSIDE RECORDS SUMMARY | 2022-02-24 12:28 | XMS_ITS | Encounter Summary ---
:1935 Author Organization [email or web address] Address [address], [place] [address] Care Team Providers Name Role Phone Ramses Cleary MD Primary Care Provider Unavailable Reason for Visit Reason Comments Revisit 6 month review prostate canc er Encounter Details Date Type Department Care Team Description 06/18/2012 Office Visit [facility] Waqas Rodney [facility] Urology MD Gladis (Primary Dx) [address] [facility] [address] [place] [place] [address] [address] [place], [place] [phone] Social History Tobacco Use Types Packs/Day Years [...] Reading Time Taken Comments Blood Pressure 136/78 06/18/2012 8:23 AM MANAGER OF FINANCE Pulse 70 06/18/2012 8:23 AM MANAGER OF FINANCE Temperature - - Respiratory Rate 16 06/18/2012 8:23 AM MANAGER OF FINANCE Oxygen Saturation 97% 06/18/2012 8:23 AM MANAGER OF FINANCE Inhaled Oxygen Concentration - - Weight - - Height - - Body Mass Index - - documented in this encounter Patient Instructions Patient InstructionsStWaqas haynes MD - 06/18/2012 8:50 AM CST S: I am seeing Zaid for recheck of his prostate cancer. Also has some libido issues but I explained that he has untreated prostate cancer and we cannot treat with Testosterone as this will aggravate his quiescent prostate cancer. He is doing a remarkable job with 5 times a day clean SIC. He is using Viagra but gets some flushing that is bothersome. There is no fever, significant weight loss or rash. No other intervention by other caregiver for problems. O: Alert and oriented and good spirits. No rashes on the face or trunk. No gynecomastia, no flank masses. Prostate is benign and unchanged. Other tests: PSA stable 4.9 A: Prostate cancer in remission. No treatment indicated. ED on Viagra but side effects. On SIC for a hypotonic bladder. P: Change to levitra. Continue SIC. See in 6mos with PSA. GER OF FINANCE documented in this encounter Progress Notes Waqas Rodney MD - 06/18/2012 8:44 AM CST S: I am seeing Zaid for recheck of his prostate cancer. Also has some libido issues but I explained that he has untreated prostate cancer and we cannot treat with Testosterone as this will aggravate his quiescent prostate cancer. He is doing a remarkable job with 5 times a day clean SIC. He is using Viagra but gets some flushing that is bothersome. There is no fever, significant weight loss or rash. No other intervention by other caregiver for problems. O: Alert and oriented and good spirits. No rashes on the face or trunk. No gynecomastia, no flank masses. Prostate is benign and unchanged. Other tests: PSA stable 4.9 A: Prostate cancer in remission. No treatment indicated. ED on Viagra but side effects. On SIC for a hypotonic bladder. P: Change to levitra. Continue SIC. See in 6mos with PSA. GER OF FINANCE documented in this encounter Nursing Notes 06/18/2012 8:15 AM CST >> Vandana Pierre CMA Fri Jun 18, 2012 8:24 AM Zaid Rutledge is a 77 yr male in clinic today for 6 month review prostate cancer. Pt states he seems to be having more pain after catheterizing. Pt state he still has pressure feelings. Pt states he is catheterizing 5 times a day. Pt states amounts very from 500-200 mL. Pt denies hematuria. URAP HAZY 06/14/2012 2:22 PM UCOL YELLOW 06/14/2012 2:22 PM USG 1.020 06/14/2012 2:22 PM ULEUK NEGATIVE 06/14/2012 2:22 PM UNITR POSITIVE 06/14/2012 2:22 PM UPH 5.0 06/14/2012 2:22 PM UPRO NEGATIVE 06/14/2012 2:22 PM UGLUC NEGATIVE 06/14/2012 2:22 PM UKET NEGATIVE 06/14/2012 2:22 PM UURO 0.2 06/14/2012 2:22 PM UBIL NEGATIVE 06/14/2012 2:22 PM UBLD NEGATIVE 06/14/2012 2:22 PM URBCS 0-2 06/14/2012 2:22 PM UWBC 0-2 06/14/2012 2:22 PM UEPI NEGATIVE 06/14/2012 2:22 PM UBACT MODERATE 06/14/2012 2:22 PM 01/21/2012 10:26 PROSTATIC SPEC A.8 (H) 06/14/2012 13:15 PROSTATIC SPEC A.9 (H) Vandana Pierre CMA 06/18/2012, 8:20 AM documented in this encounter Plan of Treatment Not on filedocumented as of this encounter Visit Diagnoses Diagnosis Prostate cancer ([facility]) - Primary Malignant neoplasm of prostate documented in this encounter Care Teams Deputy Sheriff Relationship Specialty Start Date End Date Ramses Cleary MD PCP - General Family Practice 10/21/11 documented as of this encounter
--- OUTSIDE RECORDS SUMMARY | 2022-02-24 12:29 | XMS_ITS | Encounter Summary ---
:1935 Author Organization [employer] Address [address] [address] Care Team Providers Name Role Phone No Primary/Referring, Phy Primary Care Provider Unavailable Encounter Details Date Type Department Care Team Description 12/31/2006 Consent for Specialty Center Mark Boyd CONSE NT FOR Procedure/Treatme [facility] Surgery DIAGNOSTIC PROCEDURE nt [address] [place] [address] [place], [place] [phone] Social History Tobacco Use Types Packs/Day Years [...] this encounter Progress Notes Mark Boyd - 12/31/2006 12:00 AM CDT documented in this encounter Plan of Treatment Not on filedocumented as of this encounter Visit Diagnoses Not on filedocumented in this encounter Care Teams Repair Armature Winder Relationship Specialty Start Date End Date No Primary/Referring, Irviny PCP - General 12/11/21 documented as of this encounter
--- OUTSIDE RECORDS SUMMARY | 2022-02-24 12:29 | XMS_ITS | Encounter Summary ---
:1935 Author Organization [employer] Address [address] [address] Care Team Providers Name Role Phone Unassigned, Provider Primary Care Provider Unavailable Reason for Visit Reason Comments Basal Cell Carcinoma Encounter Details Date Type Department Care Team Description 12/31/2006 Office Visit Specialty Center Mark Boyd MD Mal Ivan Skin Face [address] NEC (Primary Dx) [address] [place] [address] [phone] Social History Tobacco Use Types Packs/Day Years [...] Sign Reading Time Taken Comments Blood Pressure 144/74 12/31/2006 9:00 AM CDT Pulse 82 12/31/2006 9:00 AM CDT Temperature - - Respiratory Rate - - Oxygen Saturation - - Inhaled Oxygen Concentration - - Weight - - Height - - Body Mass Index - - documented in this encounter Patient Instructions Patient Eahysttfqtkk88/19/2007 12:53 PM CDT Wound Care Instructions for: Granulating Wounds After your surgery, a pressure bandage will be placed over the open wound. This will help to prevent bleeding. Please follow these instructions over the next 2 to 6 weeks. They will help you to prevent complications as your wound heals. For the first 24 Hours after your surgery: 1. Leave the pressure bandage on and keep it dry. If it should come loose, you may re-tape it but do not take it off. 2. Relax and take it easy. Do not do any vigorous exercise or heavy lifting. This could cause the wound to bleed. 3. Post-operative pain is usually mild. You may take plain or extra strength Tylenol every 4 hours as needed. Do not take any medication that contains aspirin. 4. You may put an ice pack around the bandaged area for 20 minutes every 2 to 3 hours. This may help to reduce swelling, bruising, and pain. Make sure that the ice pack is waterproof so that the pressure bandage does not get wet. 5. You may see a small amount of drainage or blood on your pressure bandage. This is normal. However, if drainage or bleeding continues or saturates the bandage, you will need to apply firm pressure over the bandage with a piece of gauze for 15 minutes. If bleeding continues after applying pressure for 15 minutes, apply an ice pack with pressure over the bandaged area for another 15 minutes. If bleeding still continues, call our office or go to the nearest emergency room. 24 Hours after surgery (on:01/01/07): 1. Carefully remove the pressure bandage. If it seems very sticky or difficult to get off, you may need to soak it off in the shower. 2. After the pressure bandage is off, you may shower and get the wound wet. Apply a generous amountof Bacitracin ointment over the site prior to going into the shower. Do not let the forceful stream of the shower hit the wound directly. Do the wound care after you finish showering. 3. Over the next several weeks, your wound will be growing in (granulating). It is important for you to take care of your wound to make sure that it heals properly. After removing the pressure bandage, begin wound care and dressing changes following these instructions: a) Twice a day for 1 week, then once a day after that, use Q-tips wet with hydrogen peroxide to cleanse the wound. Do not be afraid to wipe the wound thoroughly, but please be gentle with the healing tissue. b) Take a dry Q-tip and gently wipe away any crust or drainage. The wound will heal better if all crusts and scabs are gently removed. c) Apply a thin layer of Bacitracin ointment over the entire wound with a Q- tip. The wound will heal faster and better if it is kept moist. d) Cover the wound with a non-stick dressing. You may tape a piece of gauze over the non-stick dressing for extra protection if you wish. e) Continue the wound care and dressing changes every day until you come back to clinic to have your wound checked. What is Normal: 1. During the first couple of days, your wound may be tender and may bleed slightly when doing wound care. 2. There may be swelling and bruising around the wound, especially if it is near the eyes. For yourcomfort, you may apply warm, moist soaks to the bruises after you have removed the pressure bandage. *The area around your wound may be numb for several weeks or even months *You may experience periodic sharp pain or mild itching around the wound as it heals. *The wound will look dark pinkish-yellow at first, and the edges will be pink and somewhat tender. This will lighten gradually over the next few weeks. Call Us if: * You have bleeding that will not stop after applying pressure and ice. * You have pain that is not controlled with Tylenol * You have signs or symptoms of an infection, such as a fever over 100 degrees Fahrenheit, or redness, warmth or foul-smelling drainage from the would. * You have any questions, or are not sure how to take care of the wound. Phone Numbers: [facility], Department of Dermatology Evenings/Weekends/Holidays, Ask for the Dermatologic Surgeon On-call [facility] is committed to the policy that all persons shall have equal access toits programs, facilities, and employment without regard to race, zoroastrian, color, sex, national origin, handicap, age, status, or sexual orientation. documented in this encounter Progress Notes Mark Boyd Sagrario - 12/31/2006 7:56 PM CDT CHIEF COMPLAINT: Zaid Rutledge is a 71 yr old male who presents with a basal cell carcinoma. HISTORY OF PRESENT ILLNESS: Zaid Rutledge was sent for consultation in the Dermatologic Surgery clinic by Dr. Baron Rogers. Location: Right nasal supratip Duration: ~5-6 months Quality: This began as a pimple, which persisted over time. Symptoms: Occasional bleeding and ulceration. Modifying Factors: The lesion has been biopsied, and is now flatter than the original appearance. REVIEW OF SYSTEMS: Review of the integumentary system reveals that the skin is otherwise asymptomatic, and no new or changing skin lesions have been noted. PAST MEDICAL HISTORY: Gout and asthma. MEDICATIONS: Current outpatient prescriptions Medication Sig Dispense Refill ??? ALLOPURINOL OR None Entered ??? HYTRIN OR None Entered ??? ALBUTEROL IN None Entered ??? TYLENOL EXTRA STRENGTH OR None Entered ??? ADVAIR DISKUS IN None Entered ALLERGIES: Review of patient's allergies indicates no known allergies. FAMILY HISTORY: There is a family history of skin cancer in his father, although he does not recall the type today. 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 He is a non-smoker. History Tobacco Use ??? Quit ??? Quit date: 12/24/1997 PHYSICAL EXAMINATION: Constitutional: On physical examination, I found a pleasant 71 yr male, who was alert and oriented and in no apparent distress. Filed Vitals: 12/31/2006 9:00 AM BP: 144/74 Pulse: 82 Skin: Head: On the right nasal supratip, there is a 0.9 by 1.1cm ulcerated, flesh- colored, poorly defined plaque. He has numerous large calibre telangiectasias on his nose. Neck: Unremarkable for any suspicious skin lesions. Right and left arms: Unremarkable for any suspicious skin lesions. He refused complete skin examination beyond this. LABORATORY: On review of the pathology report, accession number [id number] ([facility]), it is noted that Zaid Rutledge has a basal cell carcinoma on the nose with positive margins. ASSESSMENT: Basal cell carcinoma and numerous large calibre telangiectasias. PLAN: 1. Today we discussed the natural history of this condition, including that the basal cell carcinomawould continue to progress with time. 2. We had an extensive discussion about the therapeutic options, including excision, Mohs micrographic surgery, and the option of no treatment. Zaid Rutledge has opted for Mohs micrographic surgery, andthis was performed today. Please see the procedure note for further details. 3. The location of the tumor was verified with Zaid Rutledge using a handheld mirror, and this location was correlated with the anatomic site listed on the pathology report. The operative site was circled with surgical marker and was re-verified with the patient prior to beginning the procedure. 4. For reconstruction, Zaid Rutledge has been referred to the Plastic Surgery service, and has an appointment with Dr. Baron Rogers on January 01. 5. Wound care was instructed both verbally and written. 6. I recommended sun protective measures on a daily basis. 7. For the telangiecatsias, we discussed the natural history of this condition, including that the telangiectasias are most typically related to sun exposure and rosacea. We had an extensive discussionabout the therapeutic options, including pulsed dye laser treatments, KTP laser treatments, and the option of no treatment. For the KTP laser treatments, we discussed the side effects, which include, but are not limited to, pain, bruising, erythema, blistering, crusting, hyper- or hypopigmentation, recurrence, inadequate treatment, scarring, and need for multiple treatments. Zaid Rutledge has opted for the KTP laser treatments, and this will be arranged for the first available appointment. The procedure will be cosmetic, will be $374 total ($174 [email or web address] laser rental fee, and $200 [employer] fee). 8. The patient will return to clinic in 3-4 months for the KTP laser treatments for follow-up, or sooner should they have any questions or concerns. Zaid Rutledge was advised to follow-up with a GeneralDermatologist for ongoing dermatologic care in 3-4 months. We offered to assist Zaid Rutledge in arranging this appointment; however, Zaid Rutledge indicates that they would prefer to call the appointment center to arrange this themselves. Mark Boyd MD 12/31/2006 NAME OF PROCEDURE: MOHS MICROGRAPHIC SURGERY Surgeon: Mark Boyd MD [facility] PRE-OPERATIVE DIAGNOSIS: Basal cell carcinoma POST-OPERATIVE DIAGNOSIS: Same INDICATIONS: This patient presented with a basal cell carcinoma located on the right nasal supratip,measuring 0.9 cm x 1.1 cm. Mohs surgery was indicated for the anatomic high risk location (nose) andpoorly defined borders. After appropriate discussion and informed consent, the patient underwent Mohs surgery using the fresh tissue technique as follows: STAGE I: The patient was placed supine on the operating room table. The area was prepped and draped in the usual manner, and was infiltrated with a 1:1 mixture of 1% Lidocaine with 1:100,000 epinephrine and 0.5% bupivacaine. The visible tumor was localized and debulked (removed by shave technique or curettage), and complete excision was made around the tumor with a 0.2 cm margin. Hemostasis was obtained by electrodesiccation. A dressing was placed. Tissue was divided into two specimens, which were subsequently mapped, color coded at their margins, and processed in the Mohs Laboratory. Microscopic tumor was found in two of the specimen(s). STAGE II: The patient returned to the operating room. By reference to the Mohs map, the area of positivity was delineated, infiltrated with the above anesthetic mixture, and excised. Hemostasis was obtained in the usual manner, and a dressing was placed. Tissue was divided into two specimens that was/were again mapped, color coded, and processed in the Mohs Laboratory. Microscopic tumor was found in one of the specimen(s). STAGE III: The patient returned to the operating room. By reference to the Mohs map, the area of positivity was delineated, infiltrated with the above anesthetic mixture, and excised. Hemostasis was obtained in the usual manner, and a dressing was placed. Tissue was divided into one specimens that was/were again mapped, color coded, and processed in the Mohs Laboratory. Microscopic tumor was not found in the specimen. With the lesion clear of micrographic tumor, surgery was considered complete. The defect extends to the subcutis. Following surgery the defect measured 1.1 cm x 1.4 cm. For reconstruction, Zaid Baxters been referred to the Plastic Surgery service, and has an appointment with Dr. Baron Rogers on January 01. Mark Boyd - 12/31/2006 12:00 AM CDT documented in this encounter Plan of Treatment Not on filedocumented as of this encounter Visit Diagnoses Diagnosis Other and unspecified malignant neoplasm of skin of other and unspecified parts of face - Primary documented in this encounter Care Teams Electrical Drafter Relationship Specialty Start Date End Date Unassigned, Provider PCP - General 12/31/06 10/20/[address] [place] [phone] documented as of this encounter
--- OUTSIDE RECORDS SUMMARY | 2022-02-24 12:29 | XMS_ITS | Encounter Summary ---
:1935 Author Organization [facility] Address [address] [place] [address] Care Team Providers Name Role Phone Unavailable Primary Care Provider Unavailable Encounter Details Date Type Department Care Team Description 12/18/2006 Orders Only External to Unknown, Physici an [address] [place], [place] [id number] (Wo rk) Social History Tobacco Use Types Packs/Day Years Used Date Smoking Tobacco: Never Assessed Food Insecurity Answer Date Recorded Within the [...] documented as of this encounter Procedure Notes External, Provider - 12/18/2006 12:00 AM CDTAssociated Order(s): OUTSIDE PATH SC documented in this encounter Plan of Treatment Not on filedocumented as of this encounter Procedures Procedure Name Priority Date/Time Associated Diagnosis Comme nts OUTSIDE PATH SC 12/18/2006 12:00 AM Resul ts for this CDT procedure are i n the results section. OUTSIDE PATHOLOGY 12/18/2006 Results fo r this procedure are i n the results section. documented in this encounter Results OUTSIDE PATH SC (12/18/2006 12:00 AM CDT) Narrative 12/18/2006 12:00 AM CDT This result has an attachment that is no t available. Ordered by an unspecified provider. Transcriptions External, Provider - 12/18/2006 12:00 AM CDT Physician Unknown DUMMY/OTHER/AR documented in this encounter Visit Diagnoses Not on filedocumented in this encounter
--- OUTSIDE RECORDS SUMMARY | 2022-02-24 12:29 | XMS_ITS | Encounter Summary ---
:1935 Author Organization [employer] Address [address] [address] Care Team Providers Name Role Phone Unavailable Primary Care Provider Unavailable Reason for Visit Reason Comments CONSULT Encounter Details Date Type Department Care Team Description 12/24/2006 Office Visit Cosmetic and Plastic Gladis Rogers MD Surgeons [address] [employer] [employer], [place], [place] [address] [place], [place] [id number] [phone] Social History Tobacco Use Types Packs/Day Years [...] Sign Reading Time Taken Comments Blood Pressure - - Pulse - - Temperature - - Respiratory Rate - - Oxygen Saturation - - Inhaled Oxygen Concentration - - Weight 104.3 kg (230 lb) 12/24/2006 10:45 AM CDT Height 177.8 cm (5' 10) 12/24/2006 10:45 AM CDT Body Mass Index 33 12/24/2006 10:45 AM CDT documented in this encounter Progress Notes Baron Rogers W - 12/24/2006 12:00 AM CDT He is a patient that we are seeing today at the request of Dr. Zaid Smith from [facility]. Dear Dr. Smith: We are seeing Mr. 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 This was biopsied by Dr. Smith on December 18, 2006, and noted in specimen ID [id number] from [facility] that it was an ulcerated basal cell. His past medical history is remarkable for back surgery in 2001. He has asthma, gout and prostate problems. Currently his medications include inhalers, gout medicine and prostate medicine. HE IS ALLERGIC TO EXCEDRIN. He quit smoking many years ago. His family history and review of systems is noncontributory. His exam today finds a pleasant male with Bailey type 2 skin, an ulcerated lesion measuring approximately 1 cm at the lobule of the nose on the right hand side. There is no satellite lesions nor adenopathy that I can appreciate. 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 We spent some time today describing the pathophysiology of this lesion, and the fact that the ulcerated basal cell often has roots that need to be addressed, and therefore Mohs' micrographic surgery has better cure rates and likely better tissue preservation than we could afford him. He understands that the size of the defect will be based upon how much tissue is removed and reconstruction will also be predicted on how best to fill that hole with the best cosmetic results. He understands that likely he will have some black eyes, a fair amount of scarring on the nose that will be apparent for many months and then always apparent but less so after time has faded it, and we may need borrow tissue from locally in addition to directly closing it so that the reconstruction may be somewhat extensive based on the resection, as well the choice of anesthetic for the day afterwards. It may be even possible for Dr. Boyd to close it as he is quite comfortable with any closure that he feels comfortable performing, but we will plan to close in the next day just as a precaution. Today we spent 20 minutes with Mr. Rutledge and almost all of this was counseling and coordination of care. A cc Outside Provider 1 cc: Adis Snyder documented in this encounter Plan of Treatment Not on filedocumented as of this encounter Visit Diagnoses Not on filedocumented in this encounter
--- OUTSIDE RECORDS SUMMARY | 2022-02-24 12:29 | XMS_ITS | Encounter Summary ---
:1935 Author Organization [employer] Address [address] [place] [address] Care Team Providers Name Role Phone Unassigned, Provider Primary Care Provider Unavailable Encounter Details Date Type Department Care Team Description 07/26/2004 [facility] Bird Gupta MD [address] [place] [address] Social History Tobacco Use Types Packs/Day Years [...] on filedocumented in this encounter Care Teams Mainspring Former Brace End Relationship Specialty Start Date End Date Unassigned, Provider PCP - General 12/31/06 10/20/11 [address] [place] [address] documented as of this encounter
--- OUTSIDE RECORDS SUMMARY | 2022-02-24 12:29 | XMS_ITS | Encounter Summary ---
:1935 Author Organization [employer] Address [address] [facility] [place] [address] Care Team Providers Name Role Phone Unassigned, Provider Primary Care Provider Unavailable Encounter Details Date Type Department Care Team Description 09/11/2004 [facility] Bird Hewitt [employer] [facility] [place] [address] [address] [phone] [place] [address] Social History Tobacco Use Types Packs/Day Years [...] on filedocumented in this encounter Care Teams Vice President Global Digital Marketing Relationship Specialty Start Date End Date Unassigned, Provider PCP - General 12/31/06 10/20/[address] [place] [id number] documented as of this encounter
--- OUTSIDE RECORDS SUMMARY | 2022-02-24 12:29 | XMS_ITS | Clinical Summary ---
:1935 Author Organization [employer] [facility] [place] [address] Care Team Providers Name Role Phone Ramses Cleary Primary Care Provider Unavailable Allergies Active Allergy Reactions Severity Noted Date Comments Acetaminophen-Caffeine 11/26/2009 Exced rin Medications Medication Sig Dispensed Refills Start Date End Date Status FLONASE 50 2 sprays ea. ? 0 12/09/2000 Activ e MCG/ACTUATION NASL nostril. SPRA montelukast Take 1 tablet by 0 12/24/2009 Active (SINGULAIR) 10 mg mouth at bedtime. tablet cholecalciferol Take 1 capsule by 0 12/28/2009 Active (VITAMIN D) 1,000 mouth once daily. unit capsule acetaminophen Take 2 tablets by 0 09/18/2010 Active (TYLENOL EXTRA mouth 2 times STRENGTH) 500 mg daily. Max tablet acetaminophen dose: 4000mg in 24 hrs. dorzolamide (TRUSOPT) Place 1 Drop into 10 mL 0 09/18/2010 Active 2 % ophthalmic both eyes 2 times solution daily. fluticasone (FLOVENT Inhale 1 Puff by 1 Inhaler 1 05/29/2011 Active DISKUS) 100 mouth 2 times mcg/Actuation inhaler daily. omeprazole (PRILOSEC) TAKE 1 CAPSULE BY 180 capsule 1 06/30/19 12 Active 20 mg capsule MOUTH TWICE DAILY allopurinol TAKE 1 TABLET BY 90 tablet 0 02/23/2012 Active (ZYLOPRIM) 100 mg MOUTH EVERY DAY tablet Active Problems Problem Noted Date Sensorineural hearing loss, bilateral 11/28/2021 Neural hearing loss, bilateral 08/15/2010 Prostate cancer 08/13/2010 Primary prostate adenocarcinoma 03/15/2010 STENOSIS, LUMBAR SPINE 06/01/2001 NEURALGIA/NEURITIS RADICULOPATHY R L5 /L4 W. LBP 05/24 ELEVATED PROSTATE SPECIFIC ANTIGEN 05/10/2001 OBSTRUCTION, BLADDER NECK 12/09/2000 12/09/2000 ODYNOPHAGIA 06/20/1999 06/20/1999 LOW BACK PAIN--M/S. 02/09/1998 ORCHITIS/EPIDIDYMITIS NOS 06/15/1993 IRRITABLE COLON-POSSIBLE UNSPEC. COLITIS, L /. 02/06/1989 NEAR DROWNING/NONFATAL SUBMERSION-SALT WATER/MULT. INJ URIES. 09/10/1988 ASTHMA NOS W/O STATUS ASTHMATICUS RHINITIS, ALLERGIC NOS POLYP, NASAL CAVITY REFLUX, ESOPHAGEAL OSTEOARTHROSIS, LOCAL, PRIM, OTHER SPEC UNIT-P-MBJWV Gout GERD (gastroesophageal reflux disease) Glaucoma Resolved Problems Problem Noted Date Resolved Date Prostate cancer 10/01/2010 12/30/2011 BPH (benign prostatic hypertrophy) 01/10/201012/29 Enlarged prostate 12/27/2009 12/30/2011 PAIN, ABDOMINAL, EPIGASTRIC 09/08/2001 12/30/2011 DIARRHEA 09/08/2001 12/30/2011 PREOPERATIVE EXAMINATION 06/29/2001 12/30/2011 COUGH-CHRONIC , STABLE. NEG BRONCH/ENT EVAL. 10/14/2000 12/30/2011 HME-EXAMINATION, ROUTINE MEDICAL 06/20/1999 012 DYSPNEA, RESPIRATORY ABNORMALITY, NEC-ELLIOTT/ ? DECONDITIONING/ 11/06/1998 12/30/2011 EXAMINATION, PREOPERATIVE NOS 01/10/1997 12/30/2011 See problem list document for additional problems 08/10/1996 12/30/2011 PROSTATE HYPERPLASIA GR 2 STABLE. NEG BX 12/13 AND PREV 03/1812/30/2011 LOSS, SENSORINEURAL HEARING NOS 08/12/19 12 Asthma 12/30/2011 Allergic rhinitis 12/30/2011 Hearing loss 12/30/2011 Encounters Date Type Specialty Care Team Description 01/21/2022 Lab Requisition Elva Costa MD from Last 3 Months Immunizations Name Administration Dates Next Due Influenza, High-dose Inactivated 02/28/2011 Influenza, IIV3 (Age >=3 years) 03/21/2010, 03/21/2008, 03/16, 04/09/2004, 05/10/2001 Pneumococcal Poly,23-Valent 09/22/2007, 10/21/1995 (Pneumovax) Td (Age >=7 Years) 07/03/1993 Tdap 02/27/2011 Family History Medical History Relation Name Comments Genetic Other 1 see list;no know n gb disease Genetic Other 2 see list;no know n gb disease~Bro w. ca of laryngx/nodes. Genetic Other 3 see list;no know n gb disease~Bro w. ca of laryngx/nodes.- bro lung ca. Genetic Other 4 Bro w. ca of lar yngx/nodes.- bro lung ca.~Family Hx of HX, FAMILY , MALIGNANCY, GI TRACT-FAT. COLON CA. (ICD-V16.0)~Fami ly Hx of HX, FAMILY, MALIGNANCY NOS-FAT W. PROS CA. (ICD -V16.9)~Family Hx of HX, FAMILY, CARDIOVASCULAR D ISEASE NEC-MOT (ICD-V1* Genetic Other 5 Bro w. ca of lar yngx/nodes.- bro lung ca.~Mot w. lung ca, . ~ Family Hx of HX, FAMILY, MALIGNANCY, GI TRACT-FAT. COLON CA. (ICD-V16.0)~Family Hx of HX, FAMILY, MALIGNAN CY NOS-FAT W. PROS CA. (ICD-V16.9)~Fami ly Hx of HX, FAMILY, CARDIOVASCULAR * Genetic Other 6 Bro w. ca of lar yngx/nodes.- bro lung ca.~Mot w. lung ca, . ~ Family Hx of HX, FAMILY, MALIGNANCY, GI TRACT-FAT. COLON CA. (ICD-V16.0)~Family Hx of HX, FAMILY, MALIGNAN CY NOS-FAT W. PROS CA. (ICD-V16.9)~Fami ly Hx of HX, FAMILY, CARDIOVASCULAR * Relation Name Status Comments Father (Age 85) pneumonia Mother (Age 90) lung cancer Other 1 Other 2 Other 3 Other 4 Other 5 Other 6 Social History Tobacco Use Types Packs/Day Years Used Date Never Smoker 0 Smokeless Tobacco: Never Used Comments: Smoking History Packs/day: o Alcohol Use Standard Drinks/Week Comments Yes 0 (1 standard drink = 0.6 oz pure Alcoho lic Drinks/day: no concerns. alcohol) Sex Assigned at Date Recorded Not on file Obstetrics History Last Filed Vital Signs Vital Sign Reading Time Taken Comments Blood Pressure 130/84 11/19/2021 10:47 AM CDT Pulse 82 11/19/2021 10:47 AM CDT Temperature 36.6 ??C (97.8 ??F) 01/07/2012 8:29 AM CDT Respiratory Rate 16 01/23/2012 7:38 AM CDT Oxygen Saturation 98% 01/07/2012 8:29 AM CDT Inhaled Oxygen Concentration - - Weight 118.4 kg (261 lb) 01/07/2012 8:29 AM CDT Height 175.3 cm (5' 9) 01/07/2012 8:29 AM CDT Body Mass Index 38.54 01/07/2012 8:29 AM CDT Plan of Treatment Health Maintenance Due Date Last Done Comments Depression screening for age 12+ 1947 BMI (ht and wt on same day) for 1953 age 18+ Zoster (shingles) series for age 1004/13/1985 50+ (1 of 2) Medicare Wellness for age 65+ 2000 Pneumococcal series for age 65+ (2 09/21/2008 09/22/2007, 0 10/21/1995 - PCV) Tetanus booster 02/27/2021 02/27/2011, 07/03/1993 COVID-19 vaccine series (4 - 07/23/2021 03/22/2021, 021, Booster for Pfizer series) 07/16/2020 Influenza for age 65+ 02/13/2022 02/28/2011, 03/21/2010, 03/21/2008, Additional history exists Tdap Completed 02/27/2011 Procedures Procedure Name Priority Date/Time Associated Diagnosis Comme nts LAB TRACKING EVENT Routine 01/21/2022 1:36 PM CDT PATH TISSUE EXAM Routine 01/21/2022 1:36 PM Resul ts for this CDT procedure are i n the results section. from Last 3 Months Results LAB TRACKING EVENT (01/21/2022 1:36 PM CDT) Specimen Anatomical Collection Method Collection Time Receive d Time (Source) Location / / Volume Laterality Other (Other) Client Collect / 01/21/2022 1:36 PM 08/0 02/2022 8:30 Unknown CDT PM CDT Elva Costa MD LAB BILL ONLY Performing Organization Address City/State/ZIP Code Phon e Number [facility] [id number] [place] [address] LABORATORY-CENTRAL 2000 LABORATORY PATH TISSUE EXAM (01/21/2022 1:36 PM CDT) Component Value Ref Test Analysis Performed At [facility] gist Range Method Time Signature Case Report Pathology Report ?Case: [id number] ? 01/22/2022 REJI Authorizing Provider: ??Elva Joya MD ??Collected: ? 01/21/2022 1336 ? 8:59 AM HEALTH Ordering Location: ? [facility] LAB ?Received: ?01/21/20222056 ? CDT ANA LUISA ADRIAN Pathologist: ? Josue Copeland MD ? ENTRAL Specimens: ?? A) - Stomach B iopsy ? LABORATORY ? B) - Stom ach Biopsy ? Final A) STOMACH, PREPYLORIC, BIOPSY: 01/23/20 [facility] Electronically Diagnosis 1. Non-erosive reactive gastropathy (see comment) 8:59 AM HE[facility] signed by ?? a. Sampling: Body CDT Josue Smith ?? b. Distribution: Body ENTR JUAN Louise MD on 2. Negative for inflammation, atrophy and Helicobacter LABORATORY 01/22/2022 at 8:59 AM B) STOMACH, BIOPSY: 1. Normal gastric body mucosa ?? 2. Negative for Helicobacter Comment A) The likely 01/22/2022 [facility] etiology is an 8:59 AM HE[facility] ongoing CDT LABORATORY-C non-inflammatory ENTRAL type mucosal LABORATORY injury due to a chemical type of injury; this may be due to ingestion of non-steroidal anti-inflammatory drugs, aspirin (via prostaglandin-medi ated injury), excess alcohol, corticosteroids, or bile/alkaline reflux, the latter usually in the setting of a gastroenteric anastomosis. Clinical Mr. Rutledge is a 86 y.o. with suspected up per gastrointestinal bleeding. 01/22/2022 [facility] Information 8:59 AM HEALTH EGD findings: Erythematous mucosa in the prepyloric re gion of the stomach. CDT LABORATORY-C ENTRAL LABORATORY Gross A) Received in formalin is a vann mucosal fragment measuring 4 mm in greatest dimension, which is entirely submitted in one cassette. It is labeled with the patient's name and designated #1:prepyloric stomach biopsies. 01/22/2022 [facility] Description 8:59 AM [facility] B) Received in formalin are 5 vann mucosal fragments ranging from 1 mm to 4 mm in greatest dimension, which are entirely submitted in one cassette. It is labeled with the patient's name and designated #2:random stomach biopsies. CDT LABORATORY-C ENTRAL Maria Teresa Arrington 01/21/2022 9:01 PM LABORATORY Microscopic The final 01/22/2022 [facility] Description diagnosis is based 8:59 AM HE[facility] on microscopic CDT LABORATORY-C examination of ENTRAL appropriate LABORATORY sections of all specimens. Additional 01/22/2022 [facility] Information Interpreted at [facility], Central Laboratory - [address], [place] [address] 8:59 AM HEALTH CDT LABORATORY-C ENTRTN LABORATORY Specimen Anatomical Collection Method Collection Time Receive d Time (Source) Location / / Volume Laterality Other (Stomach 01/21/2022 1:36 PM 022 8:57 Biopsy) CDT PM CDT Specimen 01/21/2022 1:36 PM 2 8:57 (specimen) CDT PM CDT (Stomach Biopsy) Elva Costa MD PATHOLOGY/CYTOLOGY Performing Organization Address City/State/ZIP Code Phon e Number [facility] [address] [place] [address] LABORATORY-CENTRAL 2000 LABORATORY from Last 3 Months Insurance Payer Benefit Plan / Subscriber ID Effective Dates Phone Addre ss Type Group MEDICARE PART B MEDICARE PART B [id number] 2005-Presen ATTN: CLAIMS - HB USE ONLY HB ONLY t [address] [place] [address] [employer] HB [id number] 2014-Present [address] [place] [address] [employer] MEDICARE [id number] 2021-Present [address] [place] [address] Care Teams Sports Broadcaster Relationship Specialty Start Date End Date Ramses Cleary PCP - General Family Practice 05/29/11
--- OUTSIDE RECORDS SUMMARY | 2022-02-24 12:29 | XMS_ITS | Encounter Summary ---
:1935 Author Organization [employer] Address [address] [place] [address] Care Team Providers Name Role Phone Unassigned, Provider Primary Care Provider Unavailable Encounter Details Date Type Department Care Team Description 06/15/1989 PN Conversion Only CLINICAL SPECIALIST VASCULAR [address] [facility] [place] [address] Social History Tobacco Use Types Packs/Day Years [...] on filedocumented in this encounter Care Teams Ammonia Operator Relationship Specialty Start Date End Date Unassigned, Provider PCP - General 12/31/06 10/20/[address] [place] [phone] documented as of this encounter
--- OUTSIDE RECORDS SUMMARY | 2022-02-24 12:29 | XMS_ITS | Encounter Summary ---
:1935 Author Organization [employer] Address [address] [place] [address] Care Team Providers Name Role Phone Unassigned, Provider Primary Care Provider Unavailable Encounter Details Date Type Department Care Team Description 10/23/2004 [facility] Ramses Cleary MD [address] [facility] [address] [place] [address] W [phone] [place] [address] Social History Tobacco Use Types Packs/Day Years [...] on filedocumented in this encounter Care Teams Powder Worker Relationship Specialty Start Date End Date Unassigned, Provider PCP - General 12/31/06 10/20/[address] [place] [address] documented as of this encounter
--- OUTSIDE RECORDS SUMMARY | 2022-02-24 12:29 | XMS_ITS | Encounter Summary ---
:1935 Author Organization [employer] Address [address] [address] Care Team Providers Name Role Phone Unassigned, Provider Primary Care Provider Unavailable Encounter Details Date Type Department Care Team Description 01/01/2007 Surgery RH Operating Room Baron Rogers RECONSTRUCTION LOWER [address] [place] [address] [phone] [facility] [address] [place] [address] Social History Tobacco Use Types Packs/Day Years [...] Sign Reading Time Taken Comments Blood Pressure 133/76 01/01/2007 9:00 AM CDT Pulse 68 01/01/2007 9:00 AM CDT Temperature 36.4 ??C (97.6 ??F) 01/01/2007 9:00 AM CDT Respiratory Rate 16 01/01/2007 9:00 AM CDT Oxygen Saturation 98% 01/01/2007 9:00 AM CDT Inhaled Oxygen Concentration - - Weight 104.3 kg (230 lb) 01/01/2007 9:00 AM CDT Height 177.8 cm (5' 10) 01/01/2007 9:00 AM CDT Body Mass Index 33 01/01/2007 9:00 AM CDT documented in this encounter Medications at Time of Discharge Medication Sig Dispensed Refills Start Date End Date ADVAIR DISKUS IN None Entered 0 2011 ALBUTEROL IN None Entered 0 11/03/2011 ALLOPURINOL OR None Entered 0 11/03/19 12 FLONASE NA None Entered 0 11/03/2011 HYDROCODONE-ACETAMINOPHEN Take 1-2 tablets by 40 0 0 01/01/2007 01/12/2007 5-500 MG OR TABS mouth every 4-6 hours as needed for pain HYTRIN OR None Entered 0 11/03/2011 PREVACID None Entered 0 11/03/2011 SINGULAIR OR None Entered 0 11/03/2011 TYLENOL EXTRA STRENGTH OR None Entered 0 11/03/2011 ZYRTEC OR None Entered 0 11/03/2011 documented as of this encounter Procedure Notes Baron Rogers - 01/01/2007 2:37 PM CDT T-Revised: To correct date of surgery. DATE OF SURGERY: 01/01/2007 PREPROCEDURE DIAGNOSIS: Mohs defect of the nose on the right hand side measuring 1.5 cm. POSTPROCEDURE DIAGNOSIS: Mohs defect of the nose on the right hand side measuring 1.5 cm. PROCEDURE: Closure of Mohs defect with a V to Y flap of the right side of nose. SURGEON: Baron Rogers MD SUPERVISOR DETASSELING CREW: Can Stephen MD ANESTHESIA: MAC plus local. ESTIMATED BLOOD LOSS: Minimal. DRAINS: None. COMPLICATIONS: None. 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 After adequate MAC anesthesia the area was infiltrated with 1% lidocaine with epinephrine, prepped with Technicare, and drapedin the usual sterile fashion. Circular defect just at the junction of the ala and the lateral subunit was d??brided. V to Y flap based laterally with the inferior portion in the alar facial crease and the lateral subunit alar crease was created. This was advanced after dissection of this circumferentially and mobilizing the dorsal skin of the nose. 5-0 Polysorb in a deep dermal fashion and superficial 5-0 nylon were used to close the skin. Bacitracin was applied, and he was taken awake to recovery having tolerated this well. Baron Rogers MD dmb Dictated: 01/01/2007 14:37:00 Transcribed: 01/05/2007 07:59:47 T-Revised: 01/18/2007 1450 coleen/wilmar Doc #: [id number] cc:Baron Rogers MD, Referring Physician Immanuel Stephen MD DO NOT SIGN UNLESS PRESENT FOR PROCEDURE I attest that I was present for and participated in the gonzales portions of this procedure(s) in compliance with the Health Care Financing Administration Teaching Physician Guidelines. Signed Date [facility] Staff Physician 1 Page 1 Patient Name: ZAID RUTLEDGE Visit Date: 01/01/2007 08:20:00 OUTPATIENT OPERATIVE REPORT CONFIDENTIAL MEDICAL RECORD [address] [id number] Page 1 Patient: ZAID RUTLEDGE Location: [facility] HPN: [id number] Date of : 1935 Age: 71Y Visit Date: 01/01/2007 08:20:00 OUTPATIENT OPERATIVE REPORT documented in this encounter Miscellaneous Notes OR Nursing - Sheila Borges - 01/01/2007 11:31 AM CDT [facility] Progress Note Patient Name: Zaid Rutledge Date of : 1935 BACITRACIN OINTMENT APPLIED TO NOSE AFTER PROCEDURE. NO OTHER DRESSING APPLIED Sheila Borges 01/01/2007 at 11:31 AM documented in this encounter Plan of Treatment Not on filedocumented as of this encounter Procedures Procedure Name Priority Date/Time Associated Comments Diagnosis MOHS RECONSTRUCTION Same Day Surgery 01/01/2007 10:48 MOHS DEFECT O F LOWER EXTREMITY AM CDT NOSE Case Notes PROC: CLOSURE MOHS DEFECTWIT H LOCAL FLAP TO NOSE documented in this encounter Visit Diagnoses Not on filedocumented in this encounter Administered Medications Inactive Administered Medications - up to 3 most recent administrations Medication Order MAR Action Action Date Dose Rate Site bacitracin topical ointment Given 01/01/2007 11:20 AM CDT INTRA-OP, Starting on Thu01/01/07, Verify Route and Dose with Surgeon Prior to Administration lidocaine/EPINEphrine 1-1:618470 % injec tion Given 01/01/2007 11:19 AM CDT mL Injection, INTRA-OP, Starting on Thu01/01/07 at 1118, For 1 dose, Hazardous waste, dispose of in Black Box. 30ML ON FIELD LR injection 1,000 mL Given 01/01/2007 8:55 AM CDT 1,000 mL 1,000 mL, Intravenous, at 30 mL/hr, PACU, Starting on Thu01/01/07 at 0850, Continuous documented in this encounter Care Teams Manager Of Development Relationship Specialty Start Date End Date Unassigned, Provider PCP - General 12/31/06 10/20/[address] [place] [address] documented as of this encounter
--- OUTSIDE RECORDS SUMMARY | 2022-02-24 12:29 | XMS_ITS | Encounter Summary ---
:1935 Author Organization [employer] Address [address], [place] [address] Care Team Providers Name Role Phone Unassigned, Provider Primary Care Provider Unavailable Encounter Details Date Type Department Care Team Description 01/01/2007 Hospital Encounter [facility] RogersBaron, Operating Room [address] [id number] [address] [place] [address] [place], [place] [phone] (Wo rk) Social History Tobacco Use Types [...] Sign Reading Time Taken Comments Blood Pressure 159/96 01/01/2007 12:00 PM CDT Pulse 74 01/01/2007 12:00 PM CDT Temperature 36.4 ??C (97.6 ??F) 01/01/2007 12:00 PM CDT Respiratory Rate 16 01/01/2007 12:00 PM CDT Oxygen Saturation 96% 01/01/2007 12:00 PM CDT Inhaled Oxygen Concentration - - [...] side of nose. SURGEON: Baron Rogers MD PRESS HAND: Can Stephen MD ANESTHESIA: MAC plus local. ESTIMATED BLOOD LOSS: Minimal. DRAINS: None. COMPLICATIONS: None. 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 Signed Date [facility] Staff Physician 1 Page 1 Patient Name: ZAID RUTLEDGE Visit Date: 01/01/2007 08:20:00 OUTPATIENT OPERATIVE REPORT CONFIDENTIAL MEDICAL RECORD [address] [phone] Page 1 Patient: ZAID RUTLEDGE Location: [facility] HPN: [id number] Date of : 1935 Age: 71Y Visit Date: 01/01/2007 08:20:00 OUTPATIENT OPERATIVE REPORT documented in this encounter Miscellaneous Notes OR Nursing - Sheila Borges - 01/01/2007 11:31 AM CDT [facility] Progress Note Patient Name: Zaid Rutledge Date of : 1935 BACITRACIN OINTMENT APPLIED TO NOSE AFTER PROCEDURE. NO OTHER DRESSING APPLIED Sheila Hilton Jony 01/01/2007 at 11:31 AM documented in this [...] Dose with Surgeon Prior to Administration lidocaine/EPINEphrine 1-1:091275 % injec tion Given 01/01/2007 11:19 AM CDT mL Injection, INTRA-OP, Starting on Thu01/01/07 at 1118, For 1 dose, Hazardous waste, dispose of in Black Box. 30ML ON FIELD LR injection 1,000 mL Given 01/01/2007 8:55 AM CDT 1,000 mL 1,000 mL, Intravenous, at 30 mL/hr, PACU, Starting on Thu01/01/07 at 0850, Continuous documented in this encounter Care Teams Engineering Aide Relationship Specialty Start Date End Date Unassigned, Provider PCP - General 12/31/06 10/20/[address] [place] [phone] documented as of this encounter
--- OUTSIDE RECORDS SUMMARY | 2022-02-24 12:29 | XMS_ITS | Encounter Summary ---
:1935 Author Organization [employer] Address [address], [place] [address] Care Team Providers Name Role Phone Unassigned, Provider Primary Care Provider Unavailable Encounter Details Date Type Department Care Team Description 08/06/2004 [facility] Bird Hewitt MD [address] [place] [address] [place] [address] [place], [place] [phone] (Wo rk) Social History Tobacco Use Types [...] on filedocumented in this encounter Care Teams Night Shift Supervisor Relationship Specialty Start Date End Date Unassigned, Provider PCP - General 12/31/06 10/20/[address] [place] [address] documented as of this encounter
--- OUTSIDE RECORDS SUMMARY | 2022-02-24 12:29 | XMS_ITS | Encounter Summary ---
:1935 Author Organization [employer] Address [address], [place] [address] Care Team Providers Name Role Phone Unassigned, Provider Primary Care Provider Unavailable Encounter Details Date Type Department Care Team Description 08/13/2004 [facility] Ramses Burns, [address] [place] [address] [phone] [place], [place] [address] (Wo rk) Social History [...] filedocumented in this encounter Care Teams Supervisor Sleeping Bag Department Relationship Specialty Start Date End Date Unassigned, Provider PCP - General 12/31/06 10/20/[address] [place] [phone] documented as of this encounter
--- OUTSIDE RECORDS SUMMARY | 2022-02-24 12:29 | XMS_ITS | Encounter Summary ---
:1935 Author Organization [employer] Address [address] [place] [address] Care Team Providers Name Role Phone Unassigned, Provider Primary Care Provider Unavailable Encounter Details Date Type Department Care Team Description 08/30/2005 [facility] Adryan Ramey, [address] [place] [address] [address] [facility] [phone] [place], [place] [address] (Wo rk) Social History Tobacco Use Types [...] on filedocumented in this encounter Care Teams Community Outreach Manager Relationship Specialty Start Date End Date Unassigned, Provider PCP - General 12/31/06 10/20/11 [address] [place] [address] documented as of this encounter
--- NOTE | 2022-02-24 13:00 | CRLHL7_ITS ---
For Patients: As a result of the Century Cures Act, medical imaging exams and procedure reports are released immediately into your electronic medical record. You may view this report before your referring provider. If you have questions, please contact your health care provider. Indication: COUGHING BLOOD Technique: Performed without IV contrast Comparison: None available Findings: Frontal sinuses: Mild mucosal thickening in both frontal sinuses. Ethmoid sinuses: Moderate mucosal thickening ethmoid sinuses involving the anterior and mid ethmoid air cells. Maxillary sinuses: Minimal mucosal thickening bilaterally. The maxillary sinus drainage pathways are patent on both sides. Sphenoid sinuses: Minimal mucosal thickening. Partial obstruction of the left sphenoethmoidal recess. The recess on the right is patent. Nasal Cavity: Nasal septum slightly curved to the left. Nodularity of the nasal turbinate mucosa. Nonobstructing sarah bullosa middle turbinates. No TMJ abnormalities identified. The visualized portions of the orbits, intracranial contents and upper soft tissue neck are grossly negative. Impression: 1. Mild bilateral sinus disease. 2. Nodularity of the nasal turbinate mucosa. Slight leftward curvature nasal septum. Please note that all CT scans at this facility use dose modulation, iterative reconstruction, and/or weight-based dosing when appropriate to reduce radiation dose to as low as reasonably achievable. Dictated by Gael Bradley MD @ 02/24/2022 1:52:06 PM (Electronically Signed)
[2022-02-24 13:13] LABS: Partial Thromboplastin Time* 35 Seconds (23-33)
== END 2022-02-24 12:06 | disposition home or self-care (01) ==
LOC: CT 12:06
PROVIDERS: PCP Family Medicine; Visit Provider Otolaryngology
DX: R04.2 Hemoptysis (principal); J32.9 Chronic sinusitis, unspecified; J34.2 Deviated nasal septum; J32.1 Chronic frontal sinusitis
CPT/HCPCS: 36415; 70486; 85730

== ENCOUNTER 2022-04-08 12:01 | Outpatient (CLI) | payer OTHER, SELFPAY ==
--- OUTSIDE RECORDS SUMMARY | 2022-04-08 12:06 | XMS_ITS | Clinical Summary ---
:1935 Author Organization [facility] Address [address] [place] [address] Care Team Providers Name Role Phone Elsewhere, Pcp Primary Care Provider Unavailable Source Comments Patient records contain information from all sites at [facility]. For routine questions regarding patient records, call [phone] during business hours, M-F 8:00 AM - 5:00 PM Central Time. Record requests for emergency care only can be directed to [phone] at any time.[facility] Allergies Active Allergy Reactions Severity Noted Date Comments Acetaminophen-Caffeine Anaphylaxis 06/21/2007 Exced rin Excedrin Sjznpgf-Vgugbxgjczfnd-H Anaphylaxis High 01/16/2016 affeine Banana Other (see comments) 08/01/2013 Throat swelling, wheezing Also a voids melons, Bee Pollen Other (see comments) 12/31/2020 Itchy w atery eyes, wheezing Food Allergy Formula Edema 12/31/2020 Musk me dejuan, water melon Levofloxacin Other (see comments) 02/26/2018 Hamstri ng tendonitis Mold Shortness of breath High 04/28/2018 [place] Anaphylaxis High 08/28/2017 Watermelon Anaphylaxis High 08/28/2017 [...] mouth. 0 07/22/2010 Active 100 mg tablet benzonatate (Tessalon Take 1 capsule 20 capsule 0 03/21/2022 1 06/20/2021 Active Perles) 100 mg (100 mg total) capsuleIndications: by mouth 3 Chronic Cough (three) times a day as needed for cough. You can puncture the perles and squeeze. Active Problems Problem Noted Date Chronic Obstructive Pulmonary Disease 01/28/2022 Encounters Date Type Specialty Care Team Description 03/21/2022 Comprehensive Visit Gastroenterology and Odeyemi, Chronic Cough (Primary Dx); Hepatology Reagan Shipman, Bleeding Oropha ryngeal M.B.B.S. Bahman Avila M.D. 03/11/2022 Orders Only Critical Care Medicine Anuradha Bleed ing Reagan Shipman, Oropharyngeal M.B.B.S. (Primary Dx) 03/07/2022 Clinical Pulmonary Medicine Anuradha, Continuin g Care Communication Reagan Shipman, Plan M.B.B.S. 02/21/2022 Telemedicine Pulmonary Medicine Anuradha, Chronic C anahy Shipman, (Primary Dx) M.B.B.S. 02/14/2022 Orders Only Pulmonary Medicine Anuradha, Chronic C anahy Shipman, (Primary Dx) M.B.B.S. 02/14/2022 Orders Only Critical Care Medicine Reagan Ling M.B.B.S. 02/14/2022 Clinical Pulmonary Medicine Anuradha, Rhinoscop y Communication Michaela Ngo.BKeshavB.S. 02/07/2022 Clinical Pulmonary Medicine Anuradha, Coughing Up Blood Communication Michaela Ngo.B.B.S. 02/06/2022 Clinical Pulmonary Medicine Anuradha, Release o f Communication Reagan Shipman, Information M.B.B.S. 01/31/2022 Orders Only Pulmonary Medicine Reagan Ling M.B.B.S. 01/29/2022 Documentation Pulmonary Medicine Reagan Ling M.BKeshavB.S. 01/28/2022 Anesthesia Event Coral Harding, JESSA, [place] M.D. 01/28/2022 Surgery George Benito 10:45am appt. Dwain Peralta BRONCHOSCOPY FLEXIBLE. 01/28/2022 Hospital Encounter George Benito Chronic O bstructive Pulmonary Disease (HCC) (Primary Dx); Dwian Peralta Chronic Cough Baron Paris M.D. 01/23/2022 Hospital Encounter Cardiovascular Disease Anuradha Shortness Of Breath Seamus Ngo 01/23/2022 Hospital Encounter Laboratory Medicine Alexei Ling ronic Cough Seamus Ngo 01/23/2022 Comprehensive Visit Pulmonary Medicine Alexei Ling ronjose Cough (Primary Dx); Reagan Shipman Shortness Of Br eath Seamus 01/23/2022 Clinical Pulmonary Medicine JIMMY Ling Reque st Communication Seamus Ngo 01/22/2022 Clinical Admitting/Central Intake Ass essment Communication [...] more drinks on one Never 02/21/2022 occasion? Social Isolation Answer Date Recorded In a typical week, how many times do you More than three kayode es a week 02/21/2022 talk on the phone with family, friends, or neighbors? How often do you get together with friends Twice a week 02/21/2022 or relatives? How often do you attend denominational or Patient refused 2021 bahai services? Do you belong to any clubs or No 02/21/2022 organizations such as denominational groups, unions, fraternal or athletic groups, or [...] or slept in a half-way (including now)? Education Answer Date Recorded What [...] 06/15/2021 PHQ-2) Fall Risk Screen (Annual) 06/15/2021 COVID-19 Vaccine (5 - Booster for 02/18/2022 12/24/2021, , Pfizer series) 08/06/2020, Additional history exists Influenza Vaccine (#1) 2022 04/09/2021, 05/01/2020, 05/01/2020, Additional history exists Pneumococcal vaccine (65+ years) Completed 03/25/2016, 02/2008, 10/21/1995 Zoster Vaccines Completed 02/26/2018, 11/13/2017, 04/01/2013 Medical Devices Implanted Type Area Semiconductor Processing Technician Device Shelf Model / Identifier Expiration Serial / Date Lot Knee Implant Knee Implant Left: Knee Procedures Procedure Name Priority Date/Time Associated Comments Diagnosis BACTERIAL CULTURE, Routine 01/28/2022 10:16 Resul ts for this AEROBIC + SUSC, RESP AM CDT procedu re are in the results section. MYCOBACTERIAL CULTURE, Routine 01/28/2022 10:16 Chronic Cough Results for this V AM CDT procedure are i n the results section. FUNGAL SMEAR Routine 01/28/2022 10:16 Chronic Cough [...] - CDT BIOPSY VISIBLE LESIONS Case Notes MISSIONARY COORDINATOR at 7:29 BRONCHOSCOPY FLEXIBLE 01/28/2022 9:34 AM CDT Chronic C ough Case Notes MISSIONARY COORDINATOR at 7:29 (TTE) 2D ECHO DOPPLER Routine [...] City/State/ZIP Code Phon e Number [facility] - [address] [place], [place] [address] [facility] [place] [address] Laboratories-[facility] [address] [facility] Mycobacterial Culture (01/28/2022 10:16 AM CDT) Patholo gist Method Time Signature Mycobacterial No growth 03/11/2022 DTL Culture after 42 1:01 PM CDT days of incubation . Specimen (Source) Anatomical Collection Method Collection Time Re ceived Time Location / / Volume Laterality Wash ([place]) 01/28/2022 10:16 AM CDT George Benito M.D. LAB MICROBIOLOGY - GENERAL O RDERACHARO Performing Organization Address City/[facility]/ZIP Code Phon e Number [facility] - [address] [place], [place] [address] [facility] [place] [address] Laboratories-[facility] [address] Fungal Smear (01/28/2022 10:16 AM CDT) athologist Signature Fungal Smear Negative. 01/28/2022 DTL 6:03 PM CDT Specimen (Source) Anatomical Collection Method Collection Time Re ceived Time Location / / Volume Laterality Wash ([place]) 01/28/2022 10:16 AM CDT George Benito M.D. LAB MICROBIOLOGY - GENERAL O RDERABLES Performing Organization Address City/State/ZIP Code Phon e Number [facility] - [address] [place], [place] [address] [facility] [place] [address] [facility] [address] Acid Fast Smear For Mycobacterium (01/28/2022 10:16 AM CDT) Patholo gist Method Time Signature Acid Fast Smear Negative. 01/28/2022 DTL For Mycobacterium 11:04 PM CDT Specimen (Source) Anatomical Collection Method Collection Time Re ceived Time Location / / Volume Laterality Wash ([place]) 01/28/2022 10:16 AM CDT George Benito M.D. LAB MICROBIOLOGY - GENERAL O RDERACHARO Performing Organization Address City/State/ZIP Code Phon e Number [facility] - [address] [place], [place] [address] [facility] [place] [address] [address] (ABNORMAL) Fungal Culture, Routine (01/28/2022 10:16 AM CDT) [facility] Method Time Signature Fungal Mixed Fungal 02/20/2022 DT Culture, Elda (A) 11:35 AM CDT Routine Fungal PENICILLIUM sp 02/20/2022 DT Culture, Few 11:35 AM CDT Routine (A) Comment: Susceptibility testing is not routinely recommended for this organism. Clinical correlation requ ired. Fungal Culture, Routine YEAST, NOT Cr. neoformans, N OT Cr. gattii and NOT C. auris 02/20/2022 11:35 AM CDT DTL Few (A) Fungal Culture, Routine ACREMONIUM sp 02/20/2022 1 1:35 AM CDT DT Few (A) Comment: Susceptibility testing is not indicated for all molds. Infectious Diseases consult is required to order mold susceptibility testing. Specimen (Source) Anatomical Collection Method Collection Time Re ceived Time Location / / Volume Laterality Wash ([place]) 01/28/2022 10:16 AM CDT George Benito M.D. LAB MICROBIOLOGY - GENERAL O RDERABLES Performing Organization Address City/State/ZIP Code Phon e Number [facility] - [address] [place] [address] [place] [address] (TTE) 2D ECHO DOPPLER COLOR (01/23/2022 3:01 PM CDT) [facility] Method Time Signature Ejection Fraction 58 [...] 3:25 PM CDT There are no previous [facility] echocardiograms available for comparison. LEFT VENTRICLE:Normal left [...] pericardial effusion. Findings There are no previous [facility] echoca rdiograms available for comparison. LEFT VENTRICLE:Normal [...] report, see the Order-L evel Documents. Reagan GarciaSKeshav CV ECHO PROCEDURES SARS Coronavirus 2, Molecular Detection, PCR, Varies Asymptomatic (01/23/2022 12:53 PM CDT) [facility] Method Time Signature COVID-19, Swab, 01/23/2022 [...] ----ADDITIONAL INFORMATION---- This RT-PCR test using the OxThera SARS-Co V-2 Assay ( [employer].) performed on the OxThera Two Module System has received Emergency Use Authorization (EUA) by the U.S. Food and Drug Administration, and is modified from the computer repairer's instructions with a bridging study. Performance characteristics were verifie d by [facility] in a manner consistent with CLIA requirements. Visit the CDC website: https://www.cdc.g ov/coronavirus/ for the most recent guidelines on Wong virus testing. Fact Sheet for Healthcare Providers: https://www.fda.gov/media/649514/downloa d Fact Sheet for Patients: https://www.fda.gov/media/139803/downloa d Specimen Anatomical Collection Method Collection Time Receive d Time (Source) Location / / Volume Laterality Varies 01/23/2022 12:53 01/23/2022 1:41 (Nasopharynx) PM CDT PM CDT Reagan HansonCarter LAB MICROBIOLOGY - GENERAL ORDERABLES Performing Organization Address City/[facility] Phon e Number [facility] - [address] NT-Pro B-Type Natriuretic Peptide (BNP) (01/23/2022 12:10 PM CDT) athologist Signature NT-Pro BNP 233 <=540 pg/mL [...] Way LAB BLOOD ADD-ON Performing Organization Address City/[facility] Phon e Number [facility] - [address] CBC without Differential (01/23/2022 12:10 PM CDT) athologist Signature Hemoglobin 14.6 13.2 - 01/23/2022 [...] Venous) PM CDT 12:41 PM CDT Reagan GarciaS. LAB BLOOD ADD-ON Performing Organization Address City/[facility] Phon e Number [facility] - [address] (ABNORMAL) Creatinine with Estimated GFR (01/23/2022 12:10 PM CDT) [facility] Signature Creatinine 1.51 (H) 0.74 - 01/23/2022 DTL 1.35 mg/dL 1:26 PM CDT eGFR-Non 41 (L) >=60 01/23/2022 DTL Black/ mL/min/BSA 1:26 PM CDT Palestinian Comment: ----ADDITIONAL INFORMATION---- Estimated GFR calculated using [...] GarciaSKeshav LAB BLOOD ADD-ON Performing Organization Address City/State/[facility] Code Phon e Number [facility] - [address] [place], [place] [address] [facility] [place] [address] ECG 12 Lead (01/23/2022 11:43 AM CDT) P athologist Signature Ventricular Rate 70 BPM MUSE ECG/Min AK Interval 144 ms MUSE QRSD Interval 94 ms MUSE QT Interval 406 ms MUSE QTC Interval 438 ms MUSE P [place] 38 degrees MUSE R [place] -4 degrees MUSE T Wave [place] 29 degrees MUSE Specimen Anatomical Collection Method [...] ) No previous ECGs available Reviewed by GINGRE Henson [address] ECG ORDERABLES Performing Organization Address City/State/ZIP Code [...] / Subscriber ID Effective Phone Address T [facility] [id number] 2021-Pres [phone] [address] PPO [address] [place] [address] (Home) [place] [address] Care Teams Correspondence School Instructor Relationship Specialty Start Date End Date Elsewhere, Pcp PCP - General Internal Medicine 01/22/22 Gael Mcguire Primary Team [place] Supervisor 01/22/22 [place] BERTHA
--- OUTSIDE RECORDS SUMMARY | 2022-04-08 12:06 | XMS_ITS | Encounter Summary ---
:1935 Author Organization [facility] Address [address] [place] [address] Care Team Providers Name Role Phone Elsewhere, Pcp Primary Care Provider Unavailable Reason for Referral Outpatient (Routine) - Closed Specialty Diagnoses / Procedures Referred By Referred To Contact Contact Gastroenterology and Diagnoses Bleeding Oropharyngeal Reagan Ling [facility] Hepatology Valentin ShipmanB.S. [address] [place] [phone] Referral ID Status Reason Start Date Expiration Date Visits V isits Requested Authorized [id number] Closed Specialty 03/11/2022 03/11/2023 1 1 Services Required Outpatient (Routine) - Authorized Specialty Diagnoses / Procedures Referred By Contact Refer red To Contact Hematology Diagnoses Bleeding Oropharyngeal Reagan Ling [facility] MCaitlinB.S. [address] [place] [address] Referral ID Status Reason Start Date Expiration Date Visits V isits Requested Authorized [id number] Authorized 03/11/2022 03/11/2023 1 1 Encounter Details Date Type Department Care Team Description 03/11/2022 Orders Only RST CCM Reagan Ling Bleeding Oropharyngeal [address] Valentin WILSONB.SKeshav (Primary Dx) [place], [place] [address] [facility] [address] [place] [address] Social History Tobacco Use Types Packs/Day Years [...] you attend gnosticism or Patient refused 2021 anglican services? Do you belong to any clubs [...] place to sleep or slept in a correction (including now)? Education Answer Date Recorded What is the highest level of Professional school degree (e.g ., , 02/18/2022 school you have completed or the DDS, DVM, KIMO) highest degree you have received? Sex Assigned at Date Recorded Male 02/18/2022 8:06 PM CDT documented as of this encounter Plan of Treatment Scheduled Referrals Name Type Priority Associated Diagnoses Order S chedule Hematology - Coagulation Outpatient Routine Bleeding Exp ected: consult (clinic) Referral Oropharyngeal 03/11/2022 (Approximate), Expires: 06/10/2023 Gastroenterology and Outpatient Routine Bleeding Expecte d: Hepatology - General Referral Oropharyngeal 2021 gastroenterology consult (Ap proximate), (clinic) Expires: 06/10/2023 documented as of this encounter Visit Diagnoses Diagnosis Bleeding Oropharyngeal - Primary documented in this encounter Care Teams Engraver Pantograph Relationship Specialty Start Date End Date Elsewhere, Pcp PCP - General Internal Medicine 01/22/22 Gael Mcguire Primary Team Mysql Database Developer 01/22/22 [facility] documented as of this encounter
--- OUTSIDE RECORDS SUMMARY | 2022-04-08 12:06 | XMS_ITS | Encounter Summary ---
:1935 Author Organization [facility] Address [address] [place] [address] Care Team Providers Name Role Phone Elsewhere, Pcp Primary Care Provider Unavailable Reason for Visit Reason Comments Continuing Care Plan Encounter Details Date Type Department Care Team Description 03/07/2022 Clinical [facility] Samuel Ngo in [facility] [address] [facility] [address] [place] [phone] Social History Tobacco Use Types Packs/Day Years [...] you attend hinduism or Patient refused 2021 zoroastrianism services? Do you belong to any clubs [...] or slept in a mcc (including now)? Education Answer Date Recorded What is the highest level of Professional school degree (e.g ., , 02/18/2022 school you have completed or the DDS, DVM, KIMO) highest degree you have received? Sex Assigned at Date Recorded Male 02/18/2022 8:06 PM CDT documented as of this encounter Miscellaneous Notes Telephone Encounter - Sarwat Burgos - 03/07/2022 10:50 AM CDT Pulmonary Note: Call Message Caller: Patient Preferred contact: Authorized: Yes Diagnosis: #1 Spitting up blood #2 Asthma #3 Postnasal drip #4 Shortness Of Breath Last Appointment: 02/21/22 Message: Patient's called. Zaid continues to experience spitting up blood. She asked if you could recommend a general education professor and gastrologist that he could see and any other recommendations you might have. Action Requested: Callback, recommendation Additional Notes: documented in this encounter Plan of Treatment Not on filedocumented as of this encounter Visit Diagnoses Not on filedocumented in this encounter Care Teams It Security Manager Relationship Specialty Start Date End Date Elsewhere, Pcp PCP - General Internal Medicine 01/22/22 Gael Mcguire Primary Team Extrusion Line Operator 01/22/22 [facility] documented as of this encounter
--- OUTSIDE RECORDS SUMMARY | 2022-04-08 12:06 | XMS_ITS | Encounter Summary ---
:1935 Author Organization [facility] Address [address] [place] [address] Care Team Providers Name Role Phone Elsewhere, Pcp Primary Care Provider Unavailable Reason for Visit Outpatient (Routine) - Closed Specialty Diagnoses / Procedures Referred By Contact Refer red To Contact Pulmonary [facility] M[facility] [address] [place] [address] Referral ID Status Reason Start Date Expiration Date Visits Requ ested Visits Authorized [id number] Closed 02/18/2022 02/17/2025 1 1 Encounter Details Date Type Department Care Team Description 02/21/2022 Telemedicine Division of Pulmonary Reagan Ling rufino Cough (Primary Medicine in , M.B.B.S. Dx) [place], [place] [address] [facility] [address] [place] [phone] Social History Tobacco Use Types Packs/Day Years [...] or relatives? How often do you attend adventism or Patient refused 2021 sikhism services? Do you belong to any clubs or No 02/21/2022 organizations such as adventism groups, unions, fraSunFunder or athletic groups, or school groups? How [...] place to sleep or slept in a fci (including now)? Education Answer Date Recorded What is the highest level of Professional school degree (e.g ., , 02/18/2022 school you have completed or the DDS, DVM, KIMO) highest degree you have received? Sex Assigned at Date Recorded Male 02/18/2022 8:06 PM CDT documented as of this encounter Progress Notes Reagan Ling M.B.BKeshavS. - 02/21/2022 3:30 PM CDT Non Onio-ji-Epyg Visit (conducted via zoom) SUBJECTIVE Briefly Zaid [...] Primary documented in this encounter Care Teams Wall And Floor Tiler Relationship Specialty Start Date End Date Elsewhere, Pcp PCP - General Internal Medicine 01/22/22 Gael Mcguire Primary Team Telephone Lineman 01/22/22 [facility] documented as of this encounter
--- OUTSIDE RECORDS SUMMARY | 2022-04-08 12:06 | XMS_ITS | Encounter Summary ---
:1935 Author Organization [facility] Address [address] [place] [address] Care Team Providers Name Role Phone Elsewhere, Pcp Primary Care Provider Unavailable Reason for Visit Outpatient (Routine) - Closed Specialty Diagnoses / Procedures Referred By Referred To Contact Contact Gastroenterology and Diagnoses Bleeding Oropharyngeal Reagan Ling [facility] Umberto M.B.B.S. [address] [place] [id number] Referral ID Status Reason Start Date Expiration Date Visits V isits Requested Authorized [id number] Closed Specialty 03/11/2022 03/11/2023 1 1 Services Required Encounter Details Date Type Department Care Team Description 03/21/2022 Comprehensive Visit Division of Bassam Ling M.B.B.S. [address] [place] [address] Chronic Cough (Primary Dx); Gastroenterology in Bahman Avila M.D. [address] [place] [phone] Bleeding Oropharyngeal [place], [place] [address] [place] [phone] Social History Tobacco Use Types Packs/Day [...] or relatives? How often do you attend sikhism or Patient refused 2021 nondenominational services? Do you belong to any clubs or No 02/21/2022 organizations such as sikhism groups, unions, [employer] or athletic groups, or school groups? How [...] or slept in a retirement (including now)? Education Answer Date Recorded What is the highest level of Professional school degree (e.g ., , 02/18/2022 school you have completed or the DDS, DVM, KIMO) highest degree you have received? Sex Assigned at Date Recorded Male 02/18/2022 8:06 PM CDT documented as of this encounter Consult Notes Bahman Avila M.D. - 03/21/2022 8:40 AM CDT Outpatient Consultation Date of Consultation: 03/21/2022 Referring Physician: Valentin Huber* Chief Complaint/Reason for Consult: Bloody sputum SUBJECTIVE History of Present Illness: Mr. Rutledge is a very pleasant 86 y.o. male with history of asthma, chronic cough, prostate cancer status post TURP, GERD, vertebrobasilar artery syndrome, basal cell cancer status post resection nasal reconstruction (2005), recent COVID-19 infection (09/2021), TIA (11/2021). Patient has follow with pulmonary regarding his bloody sputum. Previous workup summary: Upper endoscopy from 01/21/2022 found and erythematous mucosa in the pre-pyloric region of the stomach. Pathology was negative for H pylori, positive for nonerosive reactive gastropathy. Bronchoscopy from 01/28/2022 showed blood in the posterior oropharynx suggesting an upper airway source, inspection of left and right bronchial tree was unremarkable. Rhinolaryngoscopy from 02/25/20[address] negative for bleeding source. CT sinus from 02/25/2022 with mild bilateral sinus disease, nodularity of nasal turbinate mucosa. Last CBC from 01/23/2022 with hemoglobin 14.6 Patient reports bloody sputum onset back in October 2021. Since then, patient has had intermittent episodes, averaging 4 episodes per month, and happening only at night. He has a chronic cough but has remained at baseline. No other issues reported. Currently, he continues on Advair and albuterol as needed. He stopped his Flonase. He is not on aspirin. Used to take ibuprofen as needed for back pain, has been discontinued. Review of Systems: All other systems reviewed and negative unless mentioned in the history of present illness or problem list. History Review: The following portions of the patient's history were reviewed and updated as appropriate: allergies, current medications, family history, medical history, social history, surgical history and problem list. Past medical history Patient Active Problem List Diagnosis Date Noted Chronic Obstructive Pulmonary Disease (HCC) 01/28/2022 Past surgical history Past Surgical History: Procedure Laterality Date BRONCHOSCOPY FLEXIBLE N/A 01/28/2022 Procedure: 10:45am appt. BRONCHOSCOPY FLEXIBLE.; Surgeon: George Benito M.D.; Location: [facility] OR BRONCHOSCOPY FLEXIBLE: INSPECTION AIRWAY - BIOPSY VISIBLE LESIONS N/A 01/28/2022 Procedure: BRONCHOSCOPY FLEXIBLE, INSPECTION AIRWAY, BIOPSY VISIBLE LESIONS.; Surgeon: George Benito M.D.; Location: [facility] OR Medication Current Outpatient Medications on File Prior to Visit Medication Sig Dispense Refill acetaminophen (TYLENOL) 500 mg tablet Take 2 tablets by mouth. albuterol 0.166 mg/mL continuous nebulization Inhale. albuterol 90 mcg/actuation inhaler Inhale 2 puffs every 4 (four) hours as needed. allopurinoL (ZYLOPRIM) 100 mg tablet Take 1 tablet by mouth daily. allopurinoL (ZYLOPRIM) 100 mg tablet Take by mouth. aspirin [address] tablet Take 1 tablet by mouth. cholecalciferol (VITAMIN D3) 25 mcg (1,000 Unit) capsule Take 1 capsule by mouth daily. cyanocobalamin (VITAMIN B12) 1,000 mcg tablet Take 1 tablet by mouth daily. cyanocobalamin (VITAMIN B12) 1,000 mcg/mL injection Inject 1,000 mcg intramuscularly. diphenhydrAMINE-acetaminophen (TYLENOL PM) 25-500 mg per tablet Take 2 tablets by mouth at bedtime. docosahexaenoic acid-epa 120-180 mg capsule Take 1 g by mouth. dorzolamide (TRUSOPT) 2 % ophthalmic solution 1 drop. fluticasone propion-salmeteroL (Advair HFA) 45-21 mcg/actuation inhaler Inhale 1 puff. fluticasone propionate (FLONASE) 50 mcg/actuation nasal spray 1 spray. fluticasone propionate (FLOVENT DISKUS) 100 mcg/actuation diskus inhaler Inhale 1 puff 2 (two) times a day. ibuprofen (ADVIL,MOTRIN) 400 mg tablet Take 400 mg by mouth every 6 (six) hours as needed for pain. montelukast (SINGULAIR) 10 mg tablet Take 10 mg by mouth. NON FORMULARY Take 1 tablet by mouth. Pseudoephedrine-guaiFENesin (MUCINEX D OR) omeprazole (PriLOSEC) [address] capsule TAKE ONE CAPSULE BY MOUTH TWICE DAILY ONE HOUR BEFORE MEALS pravastatin (PRAVACHOL) 40 mg tablet Take 1 tablet by mouth at bedtime. vit A/vit C/vit E/zinc/copper (ICAPS AREDS ORAL) Take by mouth. No current facility-administered medications on file prior to visit. Social history Social History Socioeconomic History Marital status: Spouse name: Not on file Number of children: Not on file Years of education: Not on file Highest education level: Professional school degree (e.g., MD, DDS, DVM, KIMO) Occupational History Not on file Tobacco Use Smoking status: Former Types: Cigarettes Quit date: 06/15/1989 Years since quittin.7 Smokeless tobacco: Never Vaping Use Vaping Use: never used Substance and Sexual Activity Alcohol use: Yes Alcohol/week: 3.0 standard drinks Types: 3 Standard drinks or equivalent per week Drug use: Never Sexual activity: Defer Other Topics Concern Not on file Social History Narrative Not on file Social Determinants of Health Financial Resource Strain: Low Risk Difficulty of Paying Living Expenses: Not hard at all Food Insecurity: No Food Insecurity Worried About Running Out of Food in the Last Year: Never true Ran Out of Food in the Last Year: Never true Transportation Needs: No Transportation Needs Lack of Transportation (Medical): No Lack of Transportation (Non-Medical): No Physical Activity: Insufficiently Active Days of Exercise per Week: 1 day Minutes of Exercise per Session: 10 min Stress: No Stress Concern Present Feeling of Stress : Only a little Social Connections: Unknown Frequency of Communication with Friends and Family: More than three times a week Frequency of Social Gatherings with Friends and Family: Twice a week Attends Protestant Services: Patient refused Active Member of Clubs or Organizations: No Attends Club or Organization Meetings: Never Marital Status: Intimate Partner Violence: Not At Risk Fear of Current or Ex-Partner: No Emotionally Abused: No Physically Abused: No Sexually Abused: No Housing Stability: Low Risk Unable to Pay for Housing in the Last Year: No Number of Places Lived in the Last Year: 1 Unstable Housing in the Last Year: No Family history No family history on file. OBJECTIVE Vital Signs: There were no vitals filed for this visit. Physical Exam: There were no vitals taken for this visit. General : Alert, cooperative, no distress, appears stated age. Head: Normocephalic, without obvious abnormality, atraumatic. Eyes: PERRL, conjunctiva/corneas clear, EOM's intact. Lungs: Clear to auscultation bilaterally, respirations unlabored. Heart: Regular rate and rhythm, S1 and S2 normal, no murmur. Abdomen: Soft, non-tender, bowel sounds active all four quadrants, no masses, no organomegaly. Extremities: Extremities normal, atraumatic, no cyanosis or edema. Pulses: 2+ and symmetric all extremities. Skin: Skin color, texture, turgor normal, no rashes or lesions. ASSESSMENT / PLAN Mr. Rutledge is a very pleasant 86 y.o. male with history of asthma, chronic cough, prostate cancer status post TURP, GERD, vertebrobasilar artery syndrome, basal cell cancer status post resection nasal reconstruction (2005), recent COVID-19 infection (09/2021), TIA (11/2021). Patient has follow with pulmonary regarding his bloody sputum. # 1 Bloody sputum, non GI related # 2 Chronic cough # 3 Nodular nasal mucosa In summary, patient with recent history of bloody sputum with negative upper endoscopy and bronchoscopy. Local ENT perform a rhinolaryngoscopy which was negative for bleeding source, CT sinus showed nodular nasal turbinate mucosa. Given patient's previous negative workup for GI bleeding, I consider this may be related to allergy and chronic cough. Plan: Cetirizine 10 mg daily for allergy control. Tessalon Perles as needed for chronic cough, patient can puncture and squeeze. He would benefit from a whole house humidifier. Voice hygiene. Lemon drops to increase salivary production. Plan for repeat upper endoscopy. PATIENT EDUCATION Ready to learn, no apparent learning barriers were identified; learning preferences include listening. Explained diagnosis and treatment plan; patient expressed understanding of the content. ADMINISTRATIVE BILLING Total time: 45 min Greater than 50% of the visit was spent in counseling and coordination of care. Supervising Physician: Dr. Deyvi Gurrola MD PGY4, GI Fellow Deyvi Jay M.D. - 03/21/2022 8:40 AM CDT SUBJECTIVE Date of Consultation: 03/21/2022 Referring Provider: Valentin Huber* Primary Care Physician: Primary Care Providers: Elsewhere, Pcp (General) No address on file CHIEF COMPLAINT / REASON FOR CONSULT Chronic Cough [R05.3] HISTORY OF PRESENT ILLNESS Zaid Rutledge is a 86 y.o. male attending [facility] [place] for evaluation of cough and hemoptysis. Judge Rutledge comes to the visit accompanied by his . He has had a longstanding habit of chronic throat clearing. In gsvy his relates that she can always tell where he isn't house by the sound of him clearing his throat. Since October of this year he started experiencing expectoration of bloody sputum. This has gone on intermittently for 4-5 months. It happens most frequently when he gets up in the evening to use the bathroom. He is had an evaluation by Pulmonary, ENT and Gastroenterology. He is had a laryngoscopy a bronchoscopy and an upper endoscopy. The upper endoscopy showed a normal esophagus and erythema in the pre-pyloric region. Biopsies for H pylori were negative. On bronchoscopy there was blood noted in the posterior oropharynx but no lesions were identified. Judge Rutledge has hada CT scan of his sinuses which has shown nodularity and evidence of chronic sinus disease. Judge Rutledge does have a history of gastroesophageal reflux disease and heartburn for which he takes omeprazoletwice daily. The following portions of the patient's history were reviewed and updated as appropriate: allergies,current medication, family history, medical history, surgical history and social history. OBJECTIVE VITAL SIGNS There were no vitals taken for this visit. PHYSICAL EXAMINATION In general he is a well-appearing gentleman in no acute distress sclerae are anicteric. Throughout our interview he was throat clearing. DIAGNOSTICS Hemoglobin and MCV are normal and have been normal ASSESSMENT / PLAN I have reviewed the history, examination and management plan with Bahman Gurrola M.D.. Charli in agreement with the substantive information provided in Bahman Gurrola M.D.'s medical note. Any exceptions from this are documented in this note. #1 Bleeding Oropharyngeal #2 Chronic Cough There does not appear to be a GI source for these symptoms. He does have a finding of chronic sinusitis, he does do chronic throat clearing and he has had heartburn in the past which is well-controlledon omeprazole. There were no erosive changes on his endoscopy. We discussed the following: Use of an antihistamine such as Zyrtec. Using a cool air humidifier in his home Tessalon Perles sips of water and hard candy in an effort to eliminate the throat clearing. Judge Rutledge would likely benefit from consultation with the speech pathologist regarding voice hygiene. Consideration could be given to adding famotidine 20-40 mg at bedtime but I would only do that in the event that he would had a 24 hour pH impedance study that showed ongoing reflux given the negative findings on EGD and they absence of breakthrough symptoms. documented in this encounter Plan of Treatment Not on filedocumented as of this encounter Visit Diagnoses Diagnosis Chronic Cough - Primary Bleeding Oropharyngeal documented in this encounter Care Teams Wood Treating Inspector Relationship Specialty Start Date End Date Elsewhere, Pcp PCP - General Internal Medicine 01/22/22 Gael Mcguire Primary Team Intermediate Manager 01/22/22 [facility] documented as of this encounter
--- OUTSIDE RECORDS SUMMARY | 2022-04-08 12:07 | XMS_ITS | Encounter Summary ---
:1935 Author Organization [facility] Address [address] [place] [address] Care Team Providers Name Role Phone Elsewhere, Pcp Primary Care Provider Unavailable Reason for Visit Reason Comments OSM Request Encounter Details Date Type Department Care Team Description 01/23/2022 Clinical Communication Division of Pulmonary Reagan Ling OSM Request Medicine in E, [facility] [place], [place] [address] [place] [address] [address] [place] [phone] Social History Tobacco Use Types Packs/Day Years [...] or relatives? How often do you attend samaritan or Patient refused 2021 hinduism services? Do you belong to any clubs or No 02/21/2022 organizations such as samaritan groups, unions, fraternal or athletic groups, or [...] CDT Pulmonary Note: Outside Materials Request Facility: [facility] Fax: n/a Requested Records: CT Chest 01/18, [...] documented as of this encounter Care Teams Supervisor Roving Department Relationship Specialty Start Date End Date Elsewhere, Pcp PCP - General Internal Medicine 01/22/22 Gael Mcguire Primary Team Tank Builder Helper 01/22/22 [facility] documented as of this encounter
--- OUTSIDE RECORDS SUMMARY | 2022-04-08 12:07 | XMS_ITS | Encounter Summary ---
:1935 Author Organization [facility] [place] [facility] Address [address] [place] [address] Care Team Providers Name Role Phone Elsewhere, Pcp Primary Care Provider Unavailable Encounter Details Date Type Department Care Team Description 01/29/2022 Documentation Division of Pulmonary Reagan Ling , Medicine in [facility] [address] [facility] [address] [place] [phone] (Wo rk) Social History Tobacco Use Types [...] or relatives? How often do you attend buddhism or Patient refused 2021 yazidi services? Do you belong to any clubs or No 02/21/2022 organizations such as buddhism groups, unions, fraternal or athletic groups, or [...] or slept in a correction (including now)? Sex Assigned at Date Recorded Male 02/18/2022 8:06 PM CDT documented as of this encounter Progress Notes Reagan Ling M.B.B.S. - 01/29/2022 10:15 AM CDT Called Water Quality Manager and Mrs Rutledge to discuss bronchoscopy findings [...] on filedocumented in this encounter Care Teams Entry Level Assistant Manager Relationship Specialty Start Date End Date Elsewhere, Pcp PCP - General Internal Medicine 01/22/22 Gael Mcguire Primary Team Cyanide Furnace Operator 01/22/22 [facility] documented as of this encounter
--- OUTSIDE RECORDS SUMMARY | 2022-04-08 12:07 | XMS_ITS | Encounter Summary ---
:1935 Author Organization [facility] Address [address] [place] [address] Care Team Providers Name Role Phone Elsewhere, Pcp Primary Care Provider Unavailable Encounter Details Date Type Department Care Team Description 01/31/2022 Orders Only Division of Pulmonary Reagan Ling, Medicine in [facility] [address] [facility] [address] [place] [phone] (Wo rk) Social History Tobacco Use Types [...] or relatives? How often do you attend caodaism or Patient refused 2021 mandaeism services? Do you belong to any clubs or No 02/21/2022 organizations such as caodaism groups, unions, fraternal or athletic groups, or [...] on filedocumented in this encounter Care Teams Part Time Relationship Specialty Start Date End Date Elsewhere, Pcp PCP - General Internal Medicine 01/22/22 Gael Mcguire Primary Team Shoe Repair Cobbler 01/22/22 [facility] documented as of this encounter
--- OUTSIDE RECORDS SUMMARY | 2022-04-08 12:07 | XMS_ITS | Encounter Summary ---
:1935 Author Organization [facility] Address [address] [place] [address] Care Team Providers Name Role Phone Elsewhere, Pcp Primary Care Provider Unavailable Encounter Details Date Type Department Care Team Description 02/14/2022 Orders Only Division of Pulmonary Reagan Ling Ch ronic Cough (Primary Medicine in [facility], [facility] D[facility]) [address] [place] [phone] [phone] Social History Tobacco Use Types Packs/Day Years [...] you attend sabianist or Patient refused 2021 orthodoxy services? Do you belong to any clubs [...] Primary documented in this encounter Care Teams Hog Killer Relationship Specialty Start Date End Date Elsewhere, Pcp PCP - General Internal Medicine 01/22/22 Gael Mcguire Primary Team Slitting And Shipping Supervisor 01/22/22 [facility] documented as of this encounter
--- OUTSIDE RECORDS SUMMARY | 2022-04-08 12:07 | XMS_ITS | Encounter Summary ---
:1935 Author Organization [facility] Address [address] [place] [address] Care Team Providers Name Role Phone Elsewhere, Pcp Primary Care Provider Unavailable Reason for Visit Reason Comments Rhinoscopy Encounter Details Date Type Department Care Team Description 02/14/2022 Clinical Communication Division of Pulmonary Reagan Ling Rhinoscopy Medicine in , [facility] [place], [place] [address] [facility] [address] [place] [phone] Social History Tobacco Use Types Packs/Day Years [...] or relatives? How often do you attend advent or Patient refused 2021 congregation services? Do you belong to any clubs or No 02/21/2022 organizations such as advent groups, unions, fraternal or athletic groups, or [...] or slept in a halfway (including now)? Sex Assigned at Date Recorded [...] daily. I did connect her with the waterfront director to schedule their rhinoscopy on Wednesday 02/21. [...] stated they would like to return to [place] for the procedure. It seems a new [...] on filedocumented in this encounter Care Teams Butter Melter Relationship Specialty Start Date End Date Elsewhere, Pcp PCP - General Internal Medicine 01/22/22 Gael Mcguire Primary Team Power Shovel Mechanic 01/22/22 [facility] documented as of this encounter
--- OUTSIDE RECORDS SUMMARY | 2022-04-08 12:07 | XMS_ITS | Encounter Summary ---
:1935 Author Organization [facility] Address [address] [place] [address] Care Team Providers Name Role Phone Elsewhere, Pcp Primary Care Provider Unavailable Reason for Visit Auth/Cert Specialty Diagnoses / Procedures Referred By Contact Refer red To Contact Diagnoses Chronic Cough Chronic Cough [R05.3] Procedures IA BRONCH DX W CELL WASH FLUOR IA BRONCHOSCOPY W ALVEOLAR LAVAGE IA BRONCHOSCOPY W BX >=1 SITE BRONCHOSCOPY FLEXIBLE BRONCHOSCOPY FLEXIBLE: BRONCHOALVEOLAR LAVAGE - IMMUNOCOMPROMISED HOST OR NON- IMMUNOCOMPROMISED HOST BRONCHOSCOPY FLEXIBLE: INSPECTION AIRWAY - BIOPS Y VISIBLE LESIONS Referral ID Status Reason Start Date Expiration Date Visits Requ ested Visits Authorized [id number] 1 1 Encounter Details Date Type Department Care Team Description 01/28/2022 Surgery RST ROMB MAIN OR George Benito, 10:45am appt. 1216 [facility] M.Jose BRONCHOSCOPY [place]LEXIBLE. [place], [place] [phone] 200 [facility] [phone] [place] [address] Social History Tobacco Use Types Packs/Day Years [...] or relatives? How often do you attend mu-ism or Patient refused 2021 jewish services? Do you belong to any clubs or No 02/21/2022 organizations such as mu-ism groups, unions, fraternal or athletic groups, or [...] place to sleep or slept in a assisted (including now)? Sex Assigned at Date Recorded [...] Care Everywhere. Bronchoscopy: Looking at Your Airways (Australian)documented in this encounter Medications at Time of [...] 10:53 AM CDT Done in OR 101, [facility]. 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 INDICATION: Hemoptysis. [...] George Benito M.D. CT CT Job ID: [id number] documented in this encounter Plan of Treatment [...] - CDT BIOPSY VISIBLE LESIONS Case Notes PIPE CHIPPER at 7:29 BRONCHOSCOPY FLEXIBLE 01/28/2022 9:34 AM CDT Chronic C ough Case Notes PIPE CHIPPER at 7:29 documented in this encounter Results [...] ornithin/plant (MCG/ML) Susceptible K oxy/R Levofloxacin SUSCEPTIBILITY, FRIDEA <=0.5 mcg/mL : ornithin/plant (MCG/ML) Susceptible K [...] - GENERAL O JOSESITO Performing Organization Address City/[facility]/ZIP Code Phon e Number [facility] - [address] [place], [place] [address] [facility] [place] [place] [address] [facility] 200 [address] [facility] Mycobacterial Culture (01/28/2022 10:16 AM CDT) Patholo HYLA Mobile Method Time Signature Mycobacterial No growth 03/11/2022 DTL Culture after 42 1:01 PM CDT days of incubation . Specimen (Source) Anatomical Collection Method Collection Time Re ceived Time Location / / Volume Laterality Wash (Bronchus) 01/28/2022 10:16 AM CDT George Benito M.D. LAB MICROBIOLOGY - GENERAL O JOSESITO Performing Organization Address City/[facility]/ZIP Code Phon e Number [facility] - [address] [place], [place] [address] [facility] [place] [address] [facility] [address] [facility] Fungal Smear (01/28/2022 10:16 AM CDT) P athologist Signature Fungal Smear Negative. 01/28/2022 DTL 6:03 PM CDT Specimen (Source) Anatomical Collection Method Collection Time Re ceived Time Location / / Volume Laterality Wash (Bronchus) 01/28/2022 10:16 AM CDT George Benito M.D. LAB MICROBIOLOGY - GENERAL O JOSESITO Performing Organization Address City/[facility]/ZIP Code Phon e Number [facility] - [address] [place], [place] [address] [facility] [place] [address] [facility] [address] [facility] Acid Fast Smear For Mycobacterium (01/28/2022 10:16 AM CDT) Patholo gist Method Time Signature Acid Fast Smear Negative. 01/28/2022 DTL For Mycobacterium 11:04 PM CDT Specimen (Source) Anatomical Collection Method Collection Time Re ceived Time Location / / Volume Laterality Wash (Bronchus) 01/28/2022 10:16 AM CDT George Benito M.D. LAB MICROBIOLOGY - GENERAL O JOSESITO Performing Organization Address [facility] Phon e Number [facility] - [address] [address] [address] (ABNORMAL) Fungal Culture, Routine (01/28/2022 10:16 AM CDT) [facility] Method Time Signature Fungal Mixed Fungal 02/20/2022 [...] - GENERAL O JOSESITO Performing Organization Address [facility] Phon e Number [facility] - [address] [place] [address] documented in this encounter Visit Diagnoses Diagnosis Chronic Obstructive Pulmonary Disease (H CC) - Primary Chronic Cough Chronic Obstructive Pulmonary Disease (H CC) Chronic Cough documented in this encounter Admitting [...] Intra-Op documented in this encounter Care Teams Poll Watcher Relationship Specialty Start Date End Date Elsewhere, Pcp PCP - General Internal Medicine 01/22/22 Gael Mcguire Primary Team Lithographic Platemaker 01/22/22 [facility] documented as of this encounter
--- OUTSIDE RECORDS SUMMARY | 2022-04-08 12:07 | XMS_ITS | Encounter Summary ---
:1935 Author Organization [facility] Address [address] [place] [address] Care Team Providers Name Role Phone Unavailable [...] or relatives? How often do you attend rastafari or Patient refused 2021 caodaism services? Do you belong to any clubs or No 02/21/2022 organizations such as rastafari groups, unions, fraternal or athletic groups, or [...]
--- OUTSIDE RECORDS SUMMARY | 2022-04-08 12:07 | XMS_ITS | Encounter Summary ---
:1935 Author Organization [facility] Address [address] [place] [address] Care Team Providers Name Role Phone Elsewhere, Pcp Primary Care Provider Unavailable Reason for Visit Reason Comments Release of Information Encounter Details Date Type Department Care Team Description 02/06/2022 Clinical Communication Division of Katya Ling se of Pulmonary Medicine Hayder Ngo on in [address] [place] [address] [phone] Social History Tobacco Use Types Packs/Day Years [...] or relatives? How often do you attend anabaptist or Patient refused 2021 anglican services? Do you belong to any clubs or No 02/21/2022 organizations such as anabaptist groups, unions, fraternal or athletic groups, or [...] place to sleep or slept in a fpc (including now)? Sex Assigned at Date Recorded Male 02/18/2022 8:06 PM CDT documented as of this encounter Miscellaneous Notes Telephone Encounter - Fabian Parham - 02/06/2022 4:44 PM CDT Pulmonary Note: Call Message Caller: Family Member: Spouse and patient Preferred contact: Authorized: Yes Message: Patient would like their records and testing sent to Dr. Callaway at [facility]. Elijah Callaway MD [facility] [address] [place] [address] . Action Requested: Send records from procedures, testing and Additional Notes: See letters tab for release. documented in this encounter Plan of Treatment Not on filedocumented as of this encounter Visit Diagnoses Not on filedocumented in this encounter Care Teams Nursing Home Administrator Relationship Specialty Start Date End Date Elsewhere, Pcp PCP - General Internal Medicine 01/22/22 Gael Mcguire Primary Team Sales Executive 01/22/22 [facility] documented as of this encounter
--- OUTSIDE RECORDS SUMMARY | 2022-04-08 12:07 | XMS_ITS | Encounter Summary ---
:1935 Author Organization [facility] Address [address] [place] [address] Care Team Providers Name Role Phone Elsewhere, Pcp Primary Care Provider Unavailable Reason for Referral Outpatient (Routine) - Closed Specialty Diagnoses / Procedures Referred By Contact Refer red To Contact Diagnoses Shortness Of Breath Reagan Ling, [place] Procedures Echo Transthoracic (TTE) M.B.B.S. [address] [place] [phone] Referral ID Status Reason Start Date Expiration Date Visits Requ ested Visits Authorized [id number] Closed 01/23/2022 01/23/2023 1 1 Reason for Visit Outpatient (Routine) - Closed Specialty Diagnoses / Procedures Referred By Contact Refer red To Contact Diagnoses Shortness Of Breath Reagan Ling [place] Procedures Echo Transthoracic (TTE) M.B.B.S. [address] [place] [phone] Referral ID Status Reason Start Date Expiration Date Visits Requ ested Visits Authorized [id number] Closed 01/23/2022 01/23/2023 1 1 Encounter Details Date Type Department Care Team Description 01/23/2022 Hospital Encounter Department of Odeyemi, Shortnes s Of Breath Cardiovascular Antoni Ngo in [place], [place] 200 [facility] 200 [place] [phone] [phone] Social History Tobacco Use Types Packs/Day Years [...] or relatives? How often do you attend yazidism or Patient refused 2021 anglican services? Do you belong to any clubs or No 02/21/2022 organizations such as yazidism groups, unions, fraternal or athletic groups, or [...] place to sleep or slept in a usp (including now)? Sex Assigned at Date Recorded [...] ECHO DOPPLER COLOR (01/23/2022 3:01 PM CDT) [facility] Method Time Signature Ejection Fraction 58 MC [...] 3:25 PM CDT There are no previous [facility] echocardiograms available for comparison. LEFT VENTRICLE:Normal left [...] For the complete report, see the [employer] Documents. Narrative 01/23/2022 3:25 PM CDT For [...] original. For the complete report, see the [email or web address] Documents. Final Impressions 1. Normal left ventricular [...] pericardial effusion. Findings There are no previous [facility] echoca rdiograms available for comparison. LEFT VENTRICLE:Normal [...] documented as of this encounter Care Teams Wad Lubricator Relationship Specialty Start Date End Date Elsewhere, Pcp PCP - General Internal Medicine 01/22/22 Gael Mcguire Primary Team Maintenance And Custodian Supervisor 01/22/22 [facility] documented as of this encounter
--- OUTSIDE RECORDS SUMMARY | 2022-04-08 12:07 | XMS_ITS | Encounter Summary ---
:1935 Author Organization [facility] Address [address] [place] [address] Care Team Providers Name Role Phone Unavailable Primary Care Provider Unavailable Encounter Details Date Type Department Care Team Description 06/21/2007 Hospital Encounter HX [facility] Michaela Hare P.A. [address] [place] [address] (Wo rk) Social History Tobacco Use Types [...] or relatives? How often do you attend jainism or Patient refused 2021 amish services? Do you belong to any clubs or No 02/21/2022 organizations such as jainism groups, unions, fraternal or athletic groups, or [...]
--- OUTSIDE RECORDS SUMMARY | 2022-04-08 12:07 | XMS_ITS | Encounter Summary ---
:1935 Author Organization [facility] Address [address] [place] [address] Care Team Providers Name Role Phone Elsewhere, Pcp Primary Care Provider Unavailable Reason for Referral Outpatient (Routine) - Closed Specialty Diagnoses / Procedures Referred By Contact Refer red To Contact Diagnoses Shortness Of Breath Reagan Ling [facility] Procedures Echo Transthoracic (TTE) M.B.B.S. [address] [place], [place] [address] Referral ID Status Reason Start Date Expiration Date Visits Requ ested Visits Authorized [id number] Closed 01/23/2022 01/23/2023 1 1 Outpatient (Routine) - Closed Specialty Diagnoses / Procedures Referred By Contact Refer red To Contact Diagnoses Chronic Cough Reagan Ling M.B.B.S. [facility] Procedures ECG 12 Lead 200 [place] [address] Referral ID Status Reason Start Date Expiration Date Visits Requ ested Visits Authorized [id number] Closed 01/23/2022 01/23/2023 1 1 Reason for Visit Appointment Request (Routine) - Closed Specialty Diagnoses / Procedures Referred By Contact Refer red To Contact Pulmonary Medicine Diagnoses Hemoptysis Referral ID Status Reason Start Date Expiration Date Visits Requ ested Visits Authorized [id number] Closed 01/17/2022 01/17/2023 1 1 Encounter Details Date Type Department Care Team Description 01/23/2022 Comprehensive Visit Division of Reagan Ling jamar Cough (Primary Dx); Pulmonary Medicine Jose ShipmanS. Shortness Of Breath in [place] [address] [address] [place], [place] [address] [facility] [address] [place], [place] [phone] (Work) [phone] Social History Tobacco Use Types Packs/Day Years [...] you attend mormon or Patient refused 2021 gnosticist services? Do you belong to any clubs [...] in this encounter H&P Notes Reagan Ling M.B.B.S. 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 echocardiograms available for comparison. LEFT VENTRICLE:Normal [...] original. For the complete report, see the [employer] Documents. Final Impressions 1. Normal left ventricular [...] pericardial effusion. Findings There are no previous [facility] echoca rdiograms available for comparison. LEFT [...] Venous) PM CDT 12:57 PM CDT Reagan HansonB.SKeshav LAB BLOOD ADD-ON Performing Organization Address City/State/ZIP Code Phon e Number [facility] - 200 [place], [place] [address] [facility] [place] [address] Laboratories[address] CBC without Differential (01/23/2022 12:10 PM [...] Way LAB BLOOD ADD-ON Performing Organization Address City/State/[facility] Code Phon e Number [facility] - 200 [place], [place] [address] [facility] [place] [address] [address] (ABNORMAL) Creatinine with Estimated GFR (01/23/2022 12:10 PM CDT) Analysis Performed At Patho logist Time Signature Creatinine 1.51 (H) 0.74 - 01/23/2022 DTL 1.35 mg/dL 1:26 PM CDT eGFR-Non 41 (L) >=60 01/23/2022 DTL Black/ mL/min/BSA 1:26 PM CDT Slovak Comment: ----ADDITIONAL INFORMATION---- Estimated GFR calculated using [...] HansonB.S. LAB BLOOD ADD-ON Performing Organization Address City/State/[facility] Code Phon e Number [facility] - 200 [place], [place] [address] [facility] [place] [address] Laboratories-[facility] 200 [facility] ECG 12 Lead (01/23/2022 11:43 AM CDT) P athologist Signature Ventricular Rate 70 BPM MUSE ECG/Min IA Interval 144 ms MUSE QRSD Interval 94 ms MUSE QT Interval 406 ms MUSE QTC Interval 438 ms MUSE P [place] 38 degrees MUSE R [place] -4 degrees MUSE T Wave [place] 29 degrees MUSE Specimen Anatomical Collection Method [...] Breath documented in this encounter Care Teams Shirt Finisher Relationship Specialty Start Date End Date Elsewhere, Pcp PCP - General Internal Medicine 01/22/22 Gael Mcguire Primary Team Gate Supervisor 01/22/22 [employer] documented as of this encounter
--- OUTSIDE RECORDS SUMMARY | 2022-04-08 12:07 | XMS_ITS | Encounter Summary ---
:1935 Author Organization [facility] Address [address] [place] [address] Care Team Providers Name Role Phone Elsewhere, Pcp Primary Care Provider Unavailable Encounter Details Date Type Department Care Team Description 01/23/2022 Hospital Encounter Department of Reagan Ling C hronic Cough Laboratory Medicine M.B.B.S. and Pathology, [address] in [place], [place] [address] [place] [address] [place] [address] Social History Tobacco Use Types [...] or relatives? How often do you attend moravian or Patient refused 2021 yazdanism services? Do you belong to any clubs or No 02/21/2022 organizations such as moravian groups, unions, fraternal or athletic groups, or [...] GarciaSKeshav LAB BLOOD ADD-ON Performing Organization Address City/[facility] Phon e Number [facility] - 200 [place], [place] [address] [place] [address] CBC without Differential (01/23/2022 12:10 PM [...] GarciaSKeshav LAB BLOOD ADD-ON Performing Organization Address City/[facility] Phon e Number [facility] - 200 [place], [place] [address] [place] [address] (ABNORMAL) Creatinine with Estimated GFR (01/23/2022 12:10 PM CDT) Analysis Performed At Patho logist Time Signature Creatinine 1.51 (H) 0.74 - 01/23/2022 DTL 1.35 mg/dL 1:26 PM CDT eGFR-Non 41 (L) >=60 01/23/2022 DTL Black/ mL/min/BSA 1:26 PM CDT Ethiopian Comment: ----ADDITIONAL INFORMATION---- Estimated GFR calculated using [...] Organization Address City/State/ZIP Code Phon e Number [facility] - [address] [place], [place] [address] [facility] [place] [address] Laboratories-[facility] [address] documented in this encounter Visit Diagnoses Diagnosis Chronic Cough documented in this encounter Additional Health Concerns Infection Onset Date Last Indicated Resolved Time COVID19 Pending 01/23/2022 01/23/2022 01/23/2022 4:52 PM CDT documented as of this encounter Care Teams Senior Solutions Engineer Relationship Specialty Start Date End Date Elsewhere, Pcp PCP - General Internal Medicine 01/22/22 Gael Mcguire Primary Team Sole Rougher 01/22/22 [facility] documented as of this encounter
--- OUTSIDE RECORDS SUMMARY | 2022-04-08 12:07 | XMS_ITS | Clinical Summary ---
:1935 [facility] Address [address] [place] [address] Care Team Providers Name Role Phone No [...] for each transition of care or referral. [place] Allergies Active Allergy Reactions Severity Noted Date Comments Acetaminophen-Caffeine Unknown 11/26/2009 Exced rin Banana Other, see comments 08/01/2013 Throat s welling, wheezing Also a voids melons, Citrullus Vulgaris Anaphylaxis High 08/28/2017 Owqgwtv-Olnuhdtvngfxu-Z Anaphylaxis High 01/16/2016 affeine Food Edema,generalized 12/31/2020 [...] home health clinician.] fluticasone (AKA Place 1 [place] into 0 08/03/2013 Active FLONASE) 50 MCG/ACT [...] End Date Status Facility Administered Medication cyanocobalamin ([id number]) 1000 mcg IM OTHER 03/01/2018 Active injection [...] vessel 11/16/2016 Overview: 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 High intens ity statin therapy indicated for stroke prevention. 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 Increased ASA to 325 [...] general medical examination at a health care [facility] y 06/20/1999 12/30/2011 Dyspnea and [...] Encounters Date Type Specialty Care Team Description 04/07/2022 Telephone Urology Waqas Rodney MD Bleed ing (Mouth) from Last 3 Months Immunizations Name Administration Dates Next Due Flu Vac (3+ yrs) 07/10/2017, 03/21/2010, 03/21/2008, 04/10/2005, 04/09/2004, 05/10/2001 HepA Adult (19+ yrs) 03/25/2016 Influenza IIV3 (Trivalent) Fluzone 05/01/2020, 04/20/2019, 0 02/26/2018, Highdose, 65+ Yrs (98[address]) 03/25/2016, 02/28/2011 Influenza IIV4 (Quadrivalent) 05/01/2020 Fluzone, [...] = 0.6 oz pure alcoho l) moderate Food Insecurity Answer Date Recorded Within the [...] 09/23/2016 03/25/2016 series) COVID-19 Vaccine (3 - 10/01/2020 08/06/2020, 07/16/2020 Booster for Pfizer series) DTaP/Tdap/Td [...] patient 's age to complete this topic Insurance Payer Benefit Plan / Subscriber ID Effective Phone Address T ype Group Dates [employer] [id number] 2020-Evon [phone] Medicare ADVANTAGE nt 79 Zaid Rutledge Personal/Family Self 1935 [phone] [address] (Home) [place] [address] Zaid uRtledge Personal/Family Self 1935 [phone] (Home) [place] [address] Zaid Rutledge Personal/Family Self 1935 [phone] [address] (Home) [place] [address] Zaid Rutledge Personal/Family Self 1935 [phone] [address] (Home) [place] [address] Zaid Rutledge Personal/Family Self 1935 [phone] [address] (Home) [place] [address] Zaid Rutledge Personal/Family Self 1935 [address] (Home) [place] [id number] Advance Directives Latest Code Status on File Code Status Date Activated Date Inactivated Comments Full Code 12/12/2021 1:26 AM 12/12/2021 2:19 PM Full Code 12/31/2020 1:24 PM 01/01/2021 2:31 PM Full Code 12/31/2020 11:51 AM 12/31/2020 1:24 PM Full Code 01/16/2016 8:53 PM 01/17/2016 8:49 PM Full Code 10/29/2015 1:22 PM 10/30/2015 3:38 PM Care Teams Legal Support Assistant Relationship Specialty Start Date End Date No Primary/Referring, Phy PCP - General 12/11/21
--- OUTSIDE RECORDS SUMMARY | 2022-04-08 12:07 | XMS_ITS | Encounter Summary ---
:1935 Author Organization [facility] Address [address] [place] [address] Care Team Providers Name Role Phone Elsewhere, Pcp Primary Care Provider Unavailable Reason for Visit Auth/Cert Specialty Diagnoses / Procedures Referred By Contact Refer red To Contact Diagnoses Chronic Cough Chronic Cough [R05.3] Procedures WI BRONCH DX W CELL WASH FLUOR WI BRONCHOSCOPY W ALVEOLAR LAVAGE WI BRONCHOSCOPY W BX >=1 SITE BRONCHOSCOPY FLEXIBLE BRONCHOSCOPY FLEXIBLE: BRONCHOALVEOLAR LAVAGE - IMMUNOCOMPROMISED HOST OR NON- IMMUNOCOMPROMISED HOST BRONCHOSCOPY FLEXIBLE: INSPECTION AIRWAY - BIOPS Y VISIBLE LESIONS Referral ID Status Reason Start Date Expiration Date Visits Requ ested Visits Authorized [id number] 1 1 Encounter Details Date Type Department Care Team Description 01/28/2022 Hospital Encounter RST ROMB SHANI OR George Benito M.D. [address] [place] [address] Chronic Obstructive Pulmonary Disease (H CC) (Primary Dx); [address] [facility] Baron Paris M.D. [address] [place] [address] [place] [phone] Social History Tobacco Use Types Packs/Day Years [...] or relatives? How often do you attend confucianism or Patient refused 2021 caodaism services? Do you belong to any clubs or No 02/21/2022 organizations such as confucianism groups, unions, fraternal or athletic groups, or [...] place to sleep or slept in a custodial (including now)? Sex Assigned at Date Recorded [...] Care Everywhere. Bronchoscopy: Looking at Your Airways (German)documented in this encounter Medications at Time of [...] 01/28/2022 10:53 AM CDT Done in [place] [address] [place] [address]. 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 INDICATION: Hemoptysis. [...] George Benito M.D. CT CT Job ID: [id number] documented in this encounter Plan of Treatment [...] - CDT BIOPSY VISIBLE LESIONS Case Notes SPECIAL COLLECTIONS LIBRARIAN at 7:29 BRONCHOSCOPY FLEXIBLE 01/28/2022 9:34 AM CDT Chronic C ough Case Notes SPECIAL COLLECTIONS LIBRARIAN at 7:29 documented in this encounter Results [...] Organization Address City/State/ZIP Code Phon e Number [facility] - [address] [place], [place] [address] [facility] [place] [address] [facility] [address] [facility] Mycobacterial Culture (01/28/2022 10:16 AM CDT) [facility] Conecte Link Method Time Signature Mycobacterial No growth 03/11/2022 DT Culture after 42 1:01 PM CDT days of incubation . Specimen (Source) Anatomical Collection Method Collection Time Re ceived Time Location / / Volume Laterality Wash (Bronchus) 01/28/2022 10:16 AM CDT George Benito M.D. LAB MICROBIOLOGY - GENERAL [place] Performing Organization Address City/State/[facility] Code Phon e Number [facility] - [address] [place], [place] [address] [facility] [place] [address] [facility] [address] Fungal Smear (01/28/2022 10:16 AM CDT) athologist Signature Fungal Smear Negative. 01/28/2022 DTL 6:03 PM CDT Specimen (Source) Anatomical Collection Method Collection Time Re ceived Time Location / / Volume Laterality Wash (Bronchus) 01/28/2022 10:16 AM CDT George Benito M.D. LAB MICROBIOLOGY - GENERAL O [place] Performing Organization Address City/State/ZIP Code Phon e Number [facility] - [address] [place], [place] [address] [place] [address] [facility] [address] Acid Fast Smear For Mycobacterium (01/28/2022 10:16 AM CDT) Patholo gist Method Time Signature Acid Fast Smear Negative. 01/28/2022 DTL For Mycobacterium 11:04 PM CDT Specimen (Source) Anatomical Collection Method Collection Time Re ceived Time Location / / Volume Laterality Wash (Bronchus) 01/28/2022 10:16 AM CDT George Benito M.D. LAB MICROBIOLOGY - GENERAL O [place] Performing Organization Address [facility] Phon e Number [facility] - [address] [place], [place] [address] [place] [address] (ABNORMAL) Fungal Culture, Routine (01/28/2022 10:16 AM CDT) [facility] Method Time Signature Fungal Mixed Fungal [...] - GENERAL O [place] Performing Organization Address City/[facility] Code Phon e Number [facility] - [address] [place], [place] [address] [place] [address] documented in this encounter Visit Diagnoses Diagnosis Chronic Obstructive Pulmonary Disease (H CC) - Primary Chronic Cough Chronic Obstructive Pulmonary Disease (H CC) documented in this encounter Admitting Diagnoses Diagnosis [...] Intra-Op documented in this encounter Care Teams Deodorizer Operator Relationship Specialty Start Date End Date Elsewhere, Pcp PCP - General Internal Medicine 01/22/22 Gael Mcguire Primary Team Tire Fabric Inspector 01/22/22 [facility] documented as of this encounter
--- OUTSIDE RECORDS SUMMARY | 2022-04-08 12:07 | XMS_ITS | Encounter Summary ---
:1935 Author Organization [facility] Address [address] [place] [address] Care Team Providers Name Role Phone Elsewhere, Pcp Primary Care Provider Unavailable Reason for Visit Auth/Cert Specialty Diagnoses / Procedures Referred By Contact Refer red To Contact Diagnoses Chronic Cough Chronic Cough [R05.3] Procedures MT BRONCH DX W CELL WASH FLUOR MT BRONCHOSCOPY W ALVEOLAR LAVAGE MT BRONCHOSCOPY W BX >=1 SITE BRONCHOSCOPY FLEXIBLE BRONCHOSCOPY FLEXIBLE: BRONCHOALVEOLAR LAVAGE - IMMUNOCOMPROMISED HOST OR NON- IMMUNOCOMPROMISED HOST BRONCHOSCOPY FLEXIBLE: INSPECTION AIRWAY - BIOPS Y VISIBLE LESIONS Referral ID Status Reason Start Date Expiration Date Visits Requ ested Visits Authorized [id number] 1 1 Encounter Details Date Type Department Care Team Description 01/28/2022 Anesthesia Event RST ROMB MAIN OR Coral Harding APRN, ELECTRICAL JOURNEYMAN [address] [place] [phone] [address] [facility] Rancho Girard M.D. [address] [place] [phone] [place] [address] Anesthesia Record Procedure Summary Procedure Name Responsible Anesthesia Start Anesthesia Stop Anesthesiologist Time Time 10:45am appt. Coral Harding APRN, 01/28/22 1004 01/28/22 1032 BRONCHOSCOPY FLEXIBLE. ELECTRICAL JOURNEYMAN Events Date Time Event Comment 01/28/2022 1004 [...] h andoff to the receiving staff during [facility] we 1. Identified the patient 2. Ident [...] Date: 01/28/22; 01/28/22 08 by Chas, 01/28/22 1103 by Placement Time: 0852; Leann Jacinto, Catheter Size: 20 G; R.N. Orientation: Anterior, Left, Lower; Location: Forearm; Site Prep: Chlorhexidine (Preferred); Technique: Anatomical landmarks; Inserted by: DANA; Insertion Attempts: 1; Removal Date: 01/28/22; Removal Time: 1103; Removal Reason: Patient discharged documented in this [...] you attend adventism or Patient refused 2021 gnosticist services? Do you belong to any clubs or No 02/21/2022 organizations such as adventism groups, unions, fraternal or athletic groups, or [...] Procedure Summary Date: 01/28/22 Room / Location: [address] 01 [facility] in [place], [place] Anesthesia Start: 1004 Anesthesia Stop: 1032 [...] [R05.3] Pre-op diagnosis: Chronic Cough [R05.3]. Location: [place] [address] / [facility] in [place], [place] Providers: George Benito M.D. Pertinent components [...] patient / legal guardian, or through an theoretical physics teacher; patient evaluated and approved for anesthesia / [...] Intra-op documented in this encounter Care Teams Modeling And Simulation Analyst Relationship Specialty Start Date End Date Elsewhere, Pcp PCP - General Internal Medicine 01/22/22 Gael Mcguire Primary Team Transition Of Care Specialist 01/22/22 [facility] documented as of this encounter
--- OUTSIDE RECORDS SUMMARY | 2022-04-08 12:07 | XMS_ITS | Encounter Summary ---
:1935 Author Organization [facility] Address [address] [place] [address] Care Team Providers Name Role Phone Elsewhere, Pcp Primary Care Provider Unavailable Reason for Visit Reason Comments Intake Assessment Encounter Details Date Type Department Care Team Description 01/22/2022 Clinical Communication Visit Review in In take [place], [place] [address] [place], [place] [address] Social History Tobacco Use Types Packs/Day Years [...] or relatives? How often do you attend scientology or Patient refused 2021 oriental orthodox services? Do you belong to any clubs or No 02/21/2022 organizations such as scientology groups, unions, fraternal or athletic groups, or [...] on filedocumented in this encounter Care Teams Fitness Floor Attendant Relationship Specialty Start Date End Date Elsewhere, Pcp PCP - General Internal Medicine 01/22/22 Gael Mcguire Primary Team Coronary Care Unit Nurse 01/22/22 [facility] documented as of this encounter
--- OUTSIDE RECORDS SUMMARY | 2022-04-08 12:07 | XMS_ITS | Encounter Summary ---
:1935 Author Organization [facility] Address [address] [place] [address] Care Team Providers Name Role Phone Elsewhere, Pcp Primary Care Provider Unavailable Reason for Visit Reason Comments Coughing Up Blood Encounter Details Date Type Department Care Team Description 02/07/2022 Clinical Communication Division of [place], Cough ing Up Blood Pulmonary [facility] [address] [facility] [address] [place] [phone] Social History Tobacco Use Types Packs/Day Years [...] or relatives? How often do you attend episcopal or Patient refused 2021 restorationism services? Do you belong to any clubs or No 02/21/2022 organizations such as episcopal groups, unions, fraternal or athletic groups, or [...] place to sleep or slept in a m[facility]p (including now)? Sex Assigned at Date Recorded Male 02/18/2022 8:06 PM CDT documented as of this encounter Miscellaneous Notes Telephone Encounter - Ramses Betts R.N. - 02/07/2022 8:56 AM CDT Information Discussed Patient called and is coughing up a 1/2 cup of blood in the [place] post bronchoscopy. Recommended they report to the [...] Spouse called and they are traveling to [place]. They are currently in the middle of [place]. Patient is coughing up blood (about 1/2 [...] please call patient and back. CHELA Short /[phone] documented in this encounter Plan of Treatment Not on filedocumented as of this encounter Visit Diagnoses Not on filedocumented in this encounter Care Teams Oil Painter Relationship Specialty Start Date End Date Elsewhere, Pcp PCP - General Internal Medicine 01/22/22 Gael Mcguire Primary Team Vendor Representatives 01/22/22 [facility] documented as of this encounter
--- OUTSIDE RECORDS SUMMARY | 2022-04-08 12:07 | XMS_ITS | Encounter Summary ---
:1935 Author Organization [facility] Address [address] [place] [address] Care Team Providers Name Role Phone Elsewhere, Pcp Primary Care Provider Unavailable Encounter Details Date Type Department Care Team Description 02/14/2022 Orders Only RST CCM Reagan Ling, [address] [facility] [place] [address] [place] [phone] (Wo rk) Social History Tobacco Use Types [...] or relatives? How often do you attend yarsani or Patient refused 2021 jainism services? Do you belong to any clubs or No 02/21/2022 organizations such as yarsani groups, unions, fraternal or athletic groups, or [...] to sleep or slept in a senior care (including now)? Sex Assigned at Date Recorded Male 02/18/2022 8:06 PM CDT documented as of this encounter Plan of Treatment Not on filedocumented as of this encounter Visit Diagnoses Not on filedocumented in this encounter Care Teams Building Guard Deputy Sheriff Relationship Specialty Start Date End Date Elsewhere, Pcp PCP - General Internal Medicine 01/22/22 Gael Mcguire Primary Team Primary Teaching Assistant 01/22/22 [facility] documented as of this encounter
--- OUTSIDE RECORDS SUMMARY | 2022-04-08 12:08 | XMS_ITS ---
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 High intens ity statin therapy indicated for stroke prevention. 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 MRA shows right AIRCRAFT CLEANER b ranch stenosis. Increased ASA to 325 mg daily. F/u appt November 26, 2016. Macular degeneration 10/14/2016 Overview: Treated at [facility], Dr. Hood Dilated aortic root 01/17/2016 [...] Lumbago 02/09/1998 Orchitis and epididymitis 06/15/1993 Overview: [facility] Irritable bowel syndrome 07/16/1989 Allergic rhinitis Overview: [...] treatments are documented for this patient in [facility]. Treatments may have been administered in another [...] 10/14/2000 12/30/2011 Routine general medical examination at [facility] y 06/20/1999 12/30/2011 Dyspnea and respiratory [...]
--- OUTSIDE RECORDS SUMMARY | 2022-04-08 12:08 | XMS_ITS | Encounter Summary ---
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 Assessment/progress toward goals: Being met. Advancing from [...] Risk) ed in this visi t Disciplines: Longterm, Physical Therapy, Occupational Therapy, Speech Language Pathology, Medical Social Work, Physical Therapy Wound Care Best Practice - Vulnerable Adult 01/03/2021 Active 1 goal linked to 1 goal Vulnerable Adult or Minor scheduled/documen i ntervention or Minor kenyetta intervention scheduled/d ocument Disciplines: ed in this visi t Longterm, Physical Therapy, Occupational Therapy, Speech Language Pathology, Home Health Aide, Medical Social Work, Physical Therapy Wound Care Best Practice - Pain Assessment 01/03/2021 Active 1 goal linked t o 1 goal Pain Assessment and Management scheduled/docume n intervention and Management kenyetta intervention scheduled/d ocument Disciplines: ed in this visi t Longterm, Physical Therapy, Occupational Therapy, Speech Language Pathology, Medical Social Work, Physical Therapy Wound Care Best Practice - Vital Signs 01/03/2021 Active 1 goal linked to 1 goal Vital Signs - Parameters scheduled/documen inte rvention Parameters kenyetta intervention scheduled/d ocument Disciplines: ed in this visi t Longterm, Physical Therapy, Occupational Therapy, Speech Language Pathology, Medical Social Work, Pressure Sealer And Tester, Physical Therapy Wound Care PT Transfer Become [...] Description: Goal: Patient Transfer Deficit f acilitated hack driver's Assess/monitor/teach side ca r transfer household [...] sequencing. documented in this encounter Care Teams Pickle Sorter Relationship Specialty Start Date End Date Placido Ott MD PCP - General Internal Medicine 10/26/17 10/17/21 [address] [place] [address] documented as of this encounter
--- OUTSIDE RECORDS SUMMARY | 2022-04-08 12:08 | XMS_ITS | Encounter Summary ---
:1935 Author Organization [employer] Address [address] [place] [address] Care Team Providers Name Role Phone Placido Ott MD Primary Care Provider Encounter Details Date Type Department Care Team Description 01/18/2021 Home Care Visit [facility] Bayron Quinn [facility] DISCHARGE [address] [address] [phone] Social History Tobacco Use Types Packs/Day Years [...] Type - SN Discipline Discharge Discipline - Prison Problems Problem Description Start Status Goals Interventions Date Integumentary - Integumentary - 01/03/2021 Active 1 goal linked t o 1 goal Surgical Surgical scheduled/docume interventio n Disciplines: nted scheduled/docum en Prison intervention kenyetta in this visit Coordination of Coordination of 01/03/2021 Active 1 goal linked t o 1 goal Care Following Care following scheduled/docume intervention Surgery surgery nted scheduled/docum en Disciplines: intervention kenyetta in this vis it Prison Teaching/Learning Verbalizes ability 01/03/2021 Active 1 goal og ked to 1 goal needs after to manage symptoms scheduled/docume intervention surgery following surgery nted scheduled/ documen Disciplines: intervention kenyetta in this vis it Prison Aftercare Assessment of 01/03/2021 Active 1 goal linked to 2 goa l assessment aftercare following scheduled/docume inte rventions Disciplines: general surgery nted scheduled/do cumen Prison intervention kenyetta in this visit Best Practice - 01/03/2021 Active 1 goal linked to 1 g oal Nutrition/Hydrati scheduled/docume i ntervention on nted scheduled/docum en Disciplines: intervention kenyetta in this vis it Prison, Physical Therapy, Occupational Therapy, Speech Language Pathology, Medical Social Work, Physical Therapy Wound Care Best Practice - 01/03/2021 Active 1 goal linked to 1 g oal Advance Care scheduled/docume interv ention Planning nted scheduled/docum en Disciplines: intervention kenyetta in this vis it Prison, Physical Therapy, Occupational Therapy, Speech Language Pathology, Medical Social Work, Physical Therapy Wound Care Best Practice - 01/03/2021 Active 1 goal linked to 1 g oal Risk for scheduled/docume interven tion infection nted scheduled/docum en Disciplines: intervention kenyetta in this vis it Prison, Physical Therapy, Occupational Therapy, Speech Language Pathology, Medical Social Work, Physical Therapy Wound Care Best Practice - Coordination of 01/03/2021 Active 1 goal linked t o 1 goal Coordination of Care scheduled/docume int ervention Care nted scheduled/docum en Disciplines: intervention kenyetta in this vis it Prison, Physical Therapy, Occupational Therapy, Speech Language Pathology, Medical Social Work, Physical Therapy Wound Care Best Practice - Medication 01/03/2021 Active 1 goal linked to 3 g oal Medication Management (Low scheduled/docume int erventions Management (Low risk) nted scheduled /documen Risk) intervention kenyetta in this vis it Disciplines: Prison, Physical Therapy, Occupational Therapy, Speech Language Pathology, Medical Social Work, Physical Therapy Wound Care Best Practice - Risk for 01/03/2021 Active 1 goal linked to 1 g oal Risk for Hospitalization scheduled/docume int ervention Hospitalization nted scheduled/docum en Disciplines: intervention kenyetta in this vis it Prison, Physical Therapy, Occupational Therapy, Speech Language Pathology, Medical Social Work, Physical Therapy Wound Care Best Practice - Vulnerable Adult or 01/03/2021 Active 1 goal link ed to 1 goal Vulnerable Adult Minor scheduled/docume in tervention or Minor nted scheduled/docum en Disciplines: intervention kenyetta in this vis it Prison, Physical Therapy, Occupational Therapy, Speech Language Pathology, Home Health Aide, Medical Social Work, Physical Therapy Wound Care Best Practice - Pain Assessment and 01/03/2021 Active 1 goal link ed to 3 goal Pain Assessment Management scheduled/docume int erventions and Management nted scheduled/docum en Disciplines: intervention kenyetta in this vis it Prison, Physical Therapy, Occupational Therapy, Speech Language Pathology, Medical Social Work, Physical Therapy Wound Care Best Practice - Fall Prevention 01/03/2021 Active 1 goal linked t o 1 goal Falls Prevention scheduled/docume interventio n Disciplines: nted scheduled/docum en Prison, intervention kenyetta in this visit Physical Therapy, Occupational Therapy, Speech Language Pathology, Medical Social Work, Physical Therapy Wound Care Best Practice - Vital Signs 01/03/2021 Active 1 goal linked to 1 goal Vital Signs - Parameters scheduled/docume inter vention Parameters nted scheduled/docum en Disciplines: intervention kenyetta in this vis it Prison, Physical Therapy, Occupational Therapy, Speech Language Pathology, Medical Social Work, Induction Furnace Operator, Physical Therapy Wound Care Urinary - Patient is free of 01/03/2021 Active 1 goal linked to 2 goal Assessments urinary scheduled/docume interventio ns Disciplines: complications nted scheduled/docu men Prison intervention kenyetta in this visit Goals Goal [...] on when and how to call RN loss prevention officer 05/01, MD or 911 if needed. Assess [...] spasms documented in this encounter Care Teams Soccer Commentator Relationship Specialty Start Date End Date Placido Ott MD PCP - General Internal Medicine 10/26/17 10/17/21 [address] [place] [address] documented as of this encounter
--- OUTSIDE RECORDS SUMMARY | 2022-04-08 12:08 | XMS_ITS | Encounter Summary ---
:1935 Author Organization [facility] Address [address] [address] Care Team Providers Name Role Phone Placido Ott MD Primary Care Provider Encounter Details Date Type Department Care Team Description 02/15/2021 Telemedicine [facility] Waqas Rodney ostate cancer ([facility]) [place] Edson Griffith MD (Primary Dx) [facility] [address] [place] [address] [place], [place] [phone] Social History Tobacco Use Types Packs/Day Years [...] Recheck PSA 6mos (he is moving to [facility]) 2.vid visit ok unless PSA 8.5 or higher 3.continue cathing [facility] You will see results in your online account as soon as they are [...] Recheck PSA 6mos (he is moving to [facility]) 2.vid visit ok unless PSA 8.5 or higher 3.continue cathing [facility] You will see results in your online account as soon as they are [...] prostate documented in this encounter Care Teams Marker Shipments Relationship Specialty Start Date End Date Placido Ott MD PCP - General Internal Medicine 10/26/17 10/17/21 [address] [place] [address] documented as of this encounter
--- OUTSIDE RECORDS SUMMARY | 2022-04-08 12:08 | XMS_ITS | Encounter Summary ---
:1935 [facility] Organization [facility] Address [address], [place] [address] Care Team Providers Name Role Phone No Primary/Referring, Phy Primary Care Provider Unavailable Reason for Visit Reason Onset Date Comments Refill 12/18/2021 Omeprazole, allopuri nol Encounter Details Date Type Department Care Team Description 12/18/2021 Refill [facility] Shelly Ott (Omeprazole, [place] [facility], allopurinol) Medicine [address] [place] [address] [address] [place], [place] [phone] [address] Social History Tobacco Use Types Packs/Day Years [...] patient Patient is due for: Office Visit [Marketing Rotation Associate: We recently received a refill request for one of your medications. In order to ensure your medication is safe and effective, your clinician needs to see you at least yearly for an office visit. May I help you schedule that office visit?] Patient declined to schedule due to: Patient has moved to [place] and established care with a provider there. This request was sent to us in error. Please disregard. [Marketing Rotation Associate: I will send a request to see [...] CDT Further Assistance Needed on Refill from Catering Director Patient is overdue for Office visit. No [...] by mouth every day (changed but equivalent) [employer] Embedded Refills, Reference: [id number], 12/18/2021 2:54:21 PM CDT, Pool: SMG REFILL EULOGIO ([id number]) omeprazole (PRILOSEC) 20 MG capsule Miscellaneous - [...] but equivalent) [employer] Embedded Refills, Reference: [id number], 12/18/2021 2:54:21 PM CDT, Pool: PETER REFILL EULOGIO ([id number]) Jimena Arriola CMA - 12/18/2021 2:50 PM [...] on filedocumented in this encounter Care Teams Anesthesiology Physician Relationship Specialty Start Date End Date No Primary/Referring, Phy PCP - General 12/11/21 documented as of this encounter
--- OUTSIDE RECORDS SUMMARY | 2022-04-08 12:08 | XMS_ITS | Encounter Summary ---
:1935 Author Organization [facility] Address [address], [place] [address] Care Team Providers Name Role Phone Placido Ott MD Primary Care Provider Encounter Details Date Type Department Care Team Description 08/15/2021 Orders Only HIM DEPARTMENT Provider, Mara madsen [place] [address] Social History Tobacco Use Types Packs/Day Years [...] that is no t available. Interface Provider MD DUMMY/OTHER/AR documented in this encounter Visit Diagnoses Not on filedocumented in this encounter Care Teams Student Services Coordinator Relationship Specialty Start Date End Date Placido Ott MD PCP - General Internal Medicine 10/26/17 10/17/21 [address] [place] [address] documented as of this encounter
--- OUTSIDE RECORDS SUMMARY | 2022-04-08 12:08 | XMS_ITS | Encounter Summary ---
:1935 Author Organization [facility] Address [address] [address] Care Team Providers Name Role Phone Placido Ott MD Primary Care Provider Encounter Details Date Type Department Care Team Description 01/07/2021 Home Care Visit [facility] N Waqas Villalobos, PT PT ROUTINE VISIT [address] [facility] [address] [place] [address] [phone] Social History Tobacco Use Types Packs/Day Years [...] Home Health - Waqas Villalobos, PT - 01/07/2021 12:30 PM CDT Homecare Visit Summary Focus of visit: HEP , body man training and gait training New issues/concerns: he [...] Risk) ed in this visi t Disciplines: Assisted, Physical Therapy, Occupational Therapy, Speech Language Pathology, Medical Social Work, Physical Therapy Wound Care Best Practice - Vulnerable Adult 01/03/2021 Active 1 goal linked to 1 goal Vulnerable Adult or Minor scheduled/documen i ntervention or Minor kenyetta intervention scheduled/d ocument Disciplines: ed in this visi t Assisted, Physical Therapy, Occupational Therapy, Speech Language Pathology, Home Health Aide, Medical Social Work, Physical Therapy Wound Care Best Practice - Pain Assessment 01/03/2021 Active 1 goal linked t o 1 goal Pain Assessment and Management scheduled/docume n intervention and Management kenyetta intervention scheduled/d ocument Disciplines: ed in this visi t Assisted, Physical Therapy, Occupational Therapy, Speech Language Pathology, Medical Social Work, Physical Therapy Wound Care Best Practice - Vital Signs 01/03/2021 Active 1 goal linked to 1 goal Vital Signs - Parameters scheduled/documen inte rvention Parameters kenyetta intervention scheduled/d ocument Disciplines: ed in this visi t Assisted, Physical Therapy, Occupational Therapy, Speech Language Pathology, Medical Social Work, Search Analyst, Physical Therapy Wound Care PT Transfer Become [...] understanding documented in this encounter Care Teams Weight Count Operator Relationship Specialty Start Date End Date Placido Ott MD PCP - General Internal Medicine 10/26/17 10/17/21 [address] [place] [address] documented as of this encounter
--- OUTSIDE RECORDS SUMMARY | 2022-04-08 12:08 | XMS_ITS | Encounter Summary ---
:1935 Author Organization [facility] Address [address] [address] Care Team Providers Name Role Phone Placido Ott MD Primary Care Provider Encounter Details Date Type Department Care Team Description 01/22/2021 Home Care Visit [facility] Waqas Villalobos, PT PT OAS[facility] DISCHARGE [place] [address] [place] [address] [phone] Social History Tobacco Use Types Packs/Day Years [...] 1 01/22/2021 to ion scheduled/docum Disciplines: ented [facility], intervention Physical Therapy, Occupational Therapy, Speech Language Pathology, Medical Social Work, Physical Therapy Wound Care Best Practice - Resolved on 1 goal linked Advance Care 1 01/22/2021 to Planning scheduled/docum Disciplines: ented Fci, intervention Physical Therapy, Occupational Therapy, Speech Language Pathology, Medical Social Work, Physical Therapy Wound Care Best Practice - Patient/Family/Care Resolved on 1 goal og ked Patient / Family management development specialist Goals of Care 1 01/22/2021 to / caregiver scheduled/docum goals of care ented Disciplines: intervention Fci, Physical Therapy, Occupational Therapy, Speech Language Pathology, Medical Social Work, Physical Therapy Wound Care Best Practice - Resolved on 1 goal linked Risk for 1 01/22/2021 to infection scheduled/docum Disciplines: ented Fci, intervention Physical Therapy, Occupational Therapy, Speech Language Pathology, Medical Social Work, Physical Therapy Wound Care Best Practice - Coordination of Resolved on 1 goal linked Coordination of Care 1 01/22/2021 to Care scheduled/docum Disciplines: ented Fci, intervention Physical Therapy, Occupational Therapy, Speech Language Pathology, Medical Social Work, Physical Therapy Wound Care Best Practice - Medication Resolved on 1 goal linked 1 goa l Medication Management (Low 1 01/22/2021 to intervent ion Management (Low risk) scheduled/docum sche duled/docume Risk) ented nted in this Disciplines: intervention visit Fci, Physical Therapy, Occupational Therapy, Speech Language Pathology, Medical Social Work, Physical Therapy Wound Care Best Practice - Risk for Resolved on 1 goal linked Risk for Hospitalization 1 01/22/2021 to Hospitalization scheduled/docum Disciplines: ented Fci, intervention Physical Therapy, Occupational Therapy, Speech Language Pathology, Medical Social Work, Physical Therapy Wound Care Best Practice - Vulnerable Adult or Resolved on 1 goal og ked 1 goal Vulnerable Adult Minor 1 01/22/2021 to interven tion or Minor scheduled/docum scheduled/do cume Disciplines: ented nted in this Fci, intervention visit Physical Therapy, Occupational Therapy, Speech Language Pathology, Home Health Aide, Medical Social Work, Physical Therapy Wound Care Best Practice - Pain Assessment and Resolved on 1 goal og ked 1 goal Pain Assessment Management 1 01/22/2021 to intervent ion and Management scheduled/docum scheduled/do cume Disciplines: ented nted in this Fci, intervention visit Physical Therapy, Occupational Therapy, Speech Language Pathology, Medical Social Work, Physical Therapy Wound Care Best Practice - Fall Prevention Resolved on 1 goal linked Falls Prevention 1 01/22/2021 to Disciplines: scheduled/docum Fci, ented Physical intervention Therapy, Occupational Therapy, Speech Language Pathology, Medical Social Work, Physical Therapy Wound Care Best Practice - Vital Signs Resolved on 1 goal linked 1 go al Vital Signs - Parameters 1 01/22/2021 to interventio n Parameters scheduled/docum scheduled/do cume Disciplines: ented nted in this Fci, intervention visit Physical Therapy, Occupational Therapy, Speech Language Pathology, Medical Social Work, It Program Manager, Physical Therapy Wound Care PT Transfer [...] exercises Problem: PT Gait Disorder Completed saravanan blackmon was Description: Goal: Patient Gait Disorder inst ructed in Assess/monitor/teach picking up an item static/dynamic sitting, from the floor c the static/dynamic standing melba ent practicing balance exercises said picker / packer using 1 arm for support and we tried goldfe r's lift but Zaid castillo as unable to tiara ce on one leg. documented in this encounter Care Teams Dermatopathologist Relationship Specialty Start Date End Date Placido Ott MD PCP - General Internal Medicine 10/26/17 10/17/21 [address] [place] [address] documented as of this encounter
--- OUTSIDE RECORDS SUMMARY | 2022-04-08 12:08 | XMS_ITS | Encounter Summary ---
:1935 Author Organization [facility] Address [address], [place] [address] Care Team Providers Name Role Phone Placido Ott MD Primary Care Provider Encounter Details Date Type Department Care Team Description 01/11/2021 Home Care Visit [facility] Bayron Batista ROUTINE VISIT [address] [place], [place] [address] [place] [address] [place] [address] [place], [place] [phone] (Wo rk) Social History Tobacco Use Types [...] CDI, DRESSING REMOVED DURING VISIT AND LEFT DIRECTOR GROUP SALES. BS ACTIVE AND PT REPORTS BMS REGULAR, [...] Type - SN Routine Visit Discipline - Care Home Problems Problem Description Start Status Goals Interventions Date Aftercare Assessment of 01/03/2021 Active 1 goal linked to 2 goa l assessment aftercare following scheduled/docume inte rventions Disciplines: general surgery nted scheduled/do cumen Care Home intervention kenyetta in this visit Best Practice - Medication 01/03/2021 Active 1 goal linked to 1 g oal Medication Management (Low scheduled/docume int ervention Management (Low risk) nted scheduled /documen Risk) intervention kenyetta in this vis it Disciplines: Care Home, Physical Therapy, Occupational Therapy, Speech Language Pathology, Medical Social Work, Physical Therapy Wound Care Best Practice - Risk for 01/03/2021 Active 1 goal linked to 1 g oal Risk for Hospitalization scheduled/docume int ervention Hospitalization nted scheduled/docum en Disciplines: intervention kenyetta in this vis it Care Home, Physical Therapy, Occupational Therapy, Speech Language Pathology, Medical Social Work, Physical Therapy Wound Care Best Practice - Vulnerable Adult or 01/03/2021 Active 1 goal link ed to 1 goal Vulnerable Adult Minor scheduled/docume in tervention or Minor nted scheduled/docum en Disciplines: intervention kenyetta in this vis it Care Home, Physical Therapy, Occupational Therapy, Speech Language Pathology, Home Health Aide, Medical Social Work, Physical Therapy Wound Care Best Practice - Pain Assessment and 01/03/2021 Active 1 goal link ed to 1 goal Pain Assessment Management scheduled/docume int ervention and Management nted scheduled/docum en Disciplines: intervention kenyetta in this vis it Care Home, Physical Therapy, Occupational Therapy, Speech Language Pathology, Medical Social Work, Physical Therapy Wound Care Best Practice - Fall Prevention 01/03/2021 Active 1 goal linked t o 1 goal Falls Prevention scheduled/docume interventio n Disciplines: nted scheduled/docum en Care Home, intervention kenyetta in this visit Physical Therapy, Occupational Therapy, Speech Language Pathology, Medical Social Work, Physical Therapy Wound Care Best Practice - Vital Signs 01/03/2021 Active 1 goal linked to 1 goal Vital Signs - Parameters scheduled/docume inter vention Parameters nted scheduled/docum en Disciplines: intervention kenyetta in this vis it Care Home, Physical Therapy, Occupational Therapy, Speech Language Pathology, Medical Social Work, Cutter In, Physical Therapy Wound Care Urinary - Patient is free of 01/03/2021 Active 1 goal linked to 2 goal Assessments urinary scheduled/docume interventio ns Disciplines: complications nted scheduled/docu men Care Home intervention kenyetta in this visit Goals [...] Assess incisions Problem: Aftercare assessment Completed CD I DIRECTOR GROUP SALES Description: Goal: Aftercare Assessment Assess incision(s) to [...] on when and how to call RN fitness sales consultant 05/01, MD or 911 if needed. Assess [...] spasms documented in this encounter Care Teams Hemstitching Machine Operator Relationship Specialty Start Date End Date Placido Ott MD PCP - General Internal Medicine 10/26/17 10/17/21 [address] [place] [address] documented as of this encounter
--- OUTSIDE RECORDS SUMMARY | 2022-04-08 12:08 | XMS_ITS | Encounter Summary ---
:1935 Author Organization [facility] Address [address], [place] [address] Care Team Providers Name Role Phone Placido Ott MD Primary Care Provider Reason for Visit Reason Comments Future Appointments Encounter Details Date Type Department Care Team Description 07/31/2021 Telephone [facility] Waqas Rodney Appointments [facility] MD [facility] [address] [place] [address] [place], [place] [phone] Social History Tobacco Use Types Packs/Day Years [...] I have faxed the PSA order to [phone]. He also requested that we sent an [...] worsen. Daryn Ventura, RN 07/31/2021, 12:14 PM R BEAM MACHINE OPERATOR Leann Keenan - 07/31/2021 11:47 AM CST I called patient to schedule a PSA per PVP note. Patient states he lives far away and would like to send the PSA lab to [facility] in [facility]. He stated he will complete thelab there and he was informed that Dr. Rodney will want the PSA order back prior to visit. Leann Keenan 07/31/2021, 11:50 AM R BEAM MACHINE OPERATOR documented in this encounter Plan of Treatment Not on filedocumented as of this encounter Visit Diagnoses Diagnosis Urinary problem - Primary Other urinary problems documented in this encounter Care Teams Station Tender Relationship Specialty Start Date End Date Placido Ott MD PCP - General Internal Medicine 10/26/17 10/17/21 [address] [place] [address] documented as of this encounter
--- OUTSIDE RECORDS SUMMARY | 2022-04-08 12:08 | XMS_ITS | Encounter Summary ---
:1935 Author Organization [facility] Address [address] [place] [address] Care Team Providers Name Role Phone Placido Ott MD Primary Care Provider Encounter Details Date Type Department Care Team Description 01/08/2021 Home Care Visit [facility] Alejandra Balderrama, CASE COMMUNICATION [address] RN [place], [place] [address] [facility] [address] [place], [place] [phone] [address] Social History Tobacco Use Types Packs/Day Years [...] on filedocumented in this encounter Care Teams Elementary School Teacher'S Aide Relationship Specialty Start Date End Date Placido Ott MD PCP - General Internal Medicine 10/26/17 10/17/21 [address] [facility] [address] documented as of this encounter
--- OUTSIDE RECORDS SUMMARY | 2022-04-08 12:08 | XMS_ITS | Encounter Summary ---
:1935 Author Organization [facility] Address [address] [address] Care Team Providers Name Role Phone Placido Ott MD Primary Care Provider Encounter Details Date Type Department Care Team Description 01/11/2021 Home Care Visit [facility] N Waqas Villalobos, PT PT ROUTINE VISIT [address] [facility] [address] [place] [address] [phone] Social History Tobacco Use Types Packs/Day Years [...] Risk) ed in this visi t Disciplines: Residential, Physical Therapy, Occupational Therapy, Speech Language Pathology, Medical Social Work, Physical Therapy Wound Care Best Practice - Vulnerable Adult 01/03/2021 Active 1 goal linked to 1 goal Vulnerable Adult or Minor scheduled/documen i ntervention or Minor kenyetta intervention scheduled/d ocument Disciplines: ed in this visi t Residential, Physical Therapy, Occupational Therapy, Speech Language Pathology, Home Health Aide, Medical Social Work, Physical Therapy Wound Care Best Practice - Pain Assessment 01/03/2021 Active 1 goal linked t o 1 goal Pain Assessment and Management scheduled/docume n intervention and Management kenyetta intervention scheduled/d ocument Disciplines: ed in this visi t Residential, Physical Therapy, Occupational Therapy, Speech Language Pathology, Medical Social Work, Physical Therapy Wound Care Best Practice - Vital Signs 01/03/2021 Active 1 goal linked to 1 goal Vital Signs - Parameters scheduled/documen inte rvention Parameters kenyetta intervention scheduled/d ocument Disciplines: ed in this visi t Residential, Physical Therapy, Occupational Therapy, Speech Language Pathology, Medical Social Work, Licensed Clinical Social Worker, Physical Therapy Wound Care PT Transfer Become [...] use. documented in this encounter Care Teams Can Inspector Relationship Specialty Start Date End Date Placido Ott MD PCP - General Internal Medicine 10/26/17 10/17/21 [address] [place] [address] documented as of this encounter
--- OUTSIDE RECORDS SUMMARY | 2022-04-08 12:08 | XMS_ITS | Encounter Summary ---
:1935 Author Organization [facility] Address [address], [place] [address] Care Team Providers Name Role Phone Placido Ott MD Primary Care Provider Reason for Visit Reason Comments QUESTIONS, [facility] lab fax number Encounter Details Date Type Department Care Team Description 08/13/2021 Telephone [facility] Clinic Waqas Rodney, [place] Edson Griffith MD ([facility] [address] lab fax number) [address] [place] [address] [place], [place] [phone] Social History Tobacco Use Types Packs/Day Years [...] CST UA/UC orders have been faxed to [facility] as requested. Deepika Arellano RN 08/13/2021, 1:07 PM Placed call to patient and notified him that his lab orders have been faxed as requested. Patient verbalizes understanding. Deepika Arellano RN 08/13/2021, 1:14 PM ING PLANT SUPERINTENDENT Bayron Bolden - 08/13/2021 11:42 AM CST Reason for call? Patient was calling to give the [facility] lab fax number which is [phone] Best time to reach you? anytime Ok to leave a detailed message? yes Bayron Bolden ....................................08/13/2021 11:42 AM ING PLANT SUPERINTENDENT documented in this encounter Plan of Treatment Not on filedocumented as of this encounter Visit Diagnoses Diagnosis Urinary problem - Primary Other urinary problems documented in this encounter Care Teams Mold Machine Operator Relationship Specialty Start Date End Date Placido Ott MD PCP - General Internal Medicine 10/26/17 10/17/21 [address] [place] [address] documented as of this encounter
--- OUTSIDE RECORDS SUMMARY | 2022-04-08 12:08 | XMS_ITS | Encounter Summary ---
:1935 Author Organization [facility] Address [address], [place] [address] Care Team Providers Name Role Phone Shelly Ott MD Primary Care Provider Reason for Visit Reason Comments Refill omeprazole (PRILOSEC) 20 MG capsule [Pharmacy Med Name: OMEPRAZOLE DR 20 MG CAPSULE]; pravastatin (PRAVA CHOL) 40 MG tablet [Pharmacy Med Name: PRAVASTATIN SODIUM 40 MG TAB]; allopurin ol (ZYLOPRIM) 100 MG tablet [Pharmacy Med Name: ALLOPURINOL 100 MG TABLET] Encounter Details Date Type Department Care Team Description 06/13/2021 Refill [facility] I Shelly Ott, Refill (omeprazole [address] MD (PRILOSEC) 20 MG capsule [place], [place] [address] [Ph armacy Med Name: [address] 20 MG [phone] [place], [place] CAPSULE]; pra vastatin [address]990 (PRAVACHOL) 40 MG tablet [phone] (Wo rk) [Pharmacy Med Name: PRAVASTAT IN SODIUM 40 MG TAB]; allopurin ol (ZYLOPRIM) 100 MG tablet [Pharmacy Med N mario: ALLOPURINOL 100 MG TABLET]) Social History Tobacco Use Types Packs/Day Years [...] encounter Nursing Notes Adelaide Rehman RN - 06/13/2021 7:54 AM CST 90 day supply given per Emergency Refill Standing Order. Adelaide Rehman RN 06/13/2021, 7:54 AM [facility]ER BLACK AND WHITE Interface, Out Surescripts Prov Query - 06/13/2021 12:38 AM CST allopurinol (ZYLOPRIM) 100 MG tablet [Pharmacy Med Name: ALLOPURINOL 100 MG TABLET] Miscellaneous - 12 Month Visit -> Refill x 1 month (courtesy refill. overdue for an office visit) Last qualifying visit: 05/21/2020 (with SHELLY OTT) (A more recent visit (in Internal Medicine with ANDRY SOLARES) was found) Next scheduled visit: None Last ordered by SHELLY OTT: 06/14/2020 (364 days ago) QTY: 90, Refills: 3, Sig: take 1 tablet by mouth daily. (changed but equivalent) Powered by [employer], Reference: [id number], 06/13/2021 12:38:04 AM PROO[facility] BLACK AND WHITE, Pool: [facility] [place] ([id number]) omeprazole (PRILOSEC) 20 MG capsule [Pharmacy Med Name: OMEPRAZOLE DR 20 MG CAPSULE] Miscellaneous - 12 Month Visit -> Refill x 1 month (courtesy toñito. overdue for an office visit) Last qualifying visit: 05/21/2020 (with SHELLY OTT) (A more recent visit (in Internal Medicine with ANDRY SOLARES) was found) Next scheduled visit: None Last ordered by SHELLY OTT: 06/14/2020 (364 days ago) QTY: 180, Refills: 3, Sig: take 1 capsule by mouth two times a day. take 1 hour before a meal. (changed but equivalent) Powered by [employer], Reference: [id number], 06/13/2021 12:38:04 AM Shlomo DURAN: PETER JEFFERY RN ([id number]) pravastatin (PRAVACHOL) 40 MG tablet [Pharmacy Med Name: PRAVASTATIN SODIUM 40 MG TAB] Miscellaneous - 12 Month Visit -> Refill x 1 month (courtesy refill. overdue for an office visit) Last qualifying visit: 05/21/2020 (with SHELLY OTT) (A more recent visit (in Internal Medicine with ANDRY SOLARES) was found) Next scheduled visit: None Last ordered by SHELLY OTT: 07/09/2020 (339 days ago) QTY: 90, Refills: 3, Sig: take 1 tablet by mouth every night at bedtime (changed but equivalent) Powered by [employer], Reference: [id number], 06/13/2021 12:38:04 AM PROOFER BLACK AND WHITE, Pool: PETER REFILL EULOGIO ([id number]) [facility] [employer] WH[employer] documented in this encounter Plan of Treatment Not on filedocumented as of this encounter Visit Diagnoses Diagnosis Hyperlipidemia, unspecified hyperlipidem ia type (HRC) documented in this encounter Care Teams Pilot Plant Technician Relationship Specialty Start Date End Date Shelly Ott MD PCP - General Internal Medicine 10/26/17 10/17/[address] [place] [address] documented as of this encounter
--- OUTSIDE RECORDS SUMMARY | 2022-04-08 12:08 | XMS_ITS | Encounter Summary ---
:1935 Author Organization [facility] Address [address] [place] [address] Care Team Providers Name Role Phone Placido Ott MD Primary Care Provider Encounter Details Date Type Department Care Team Description 01/10/2021 Home Care Visit [facility] Pebbles Vann, TEL EPHONE ENCOUNTER [place] OTR/L [address] [place] [address] [phone] Social History Tobacco Use Types Packs/Day Years [...] on filedocumented in this encounter Care Teams Operational Communication Chief Relationship Specialty Start Date End Date Placido Ott MD PCP - General Internal Medicine 10/26/17 10/17/21 [address] [place] [address] documented as of this encounter
--- OUTSIDE RECORDS SUMMARY | 2022-04-08 12:08 | XMS_ITS | Encounter Summary ---
:1935 Author Organization [employer] Address [address], [place] [address] Care Team Providers Name Role Phone Placido Ott MD Primary Care Provider Encounter Details Date Type Department Care Team Description 01/21/2021 Home Care Visit [facility] Waqas Villalobos, PT TELEPHONE ENCOUNTER NE [address] [facility] [address] [place] [address] [phone] Social History Tobacco Use Types Packs/Day Years [...] PT - 01/21/2021 6:45 PM CDT This global technical writer was awaiting a return call from Zaid regarding when he was going to start out patient P.T.care. SInce I had not heard from him yet, I called him today and he said he was not going to start out patient P.T. care next Thu so he wanted to have one additional home care P.T. session this week so it was scheduled for 01-22-21. documented in this encounter Plan of Treatment Not on filedocumented as of this encounter Visit Diagnoses Not on filedocumented in this encounter Care Teams Transportation Analyst Relationship Specialty Start Date End Date Placido Ott MD PCP - General Internal Medicine 10/26/17 10/17/21 [address] [place] [address] documented as of this encounter
--- OUTSIDE RECORDS SUMMARY | 2022-04-08 12:08 | XMS_ITS | Encounter Summary ---
:1935 Author Organization [employer] Address [address] [place] [address] Care Team Providers Name Role Phone Placido Ott MD Primary Care Provider Encounter Details Date Type Department Care Team Description 01/18/2021 Home Care Visit [facility] M Caryl Mas, PT MISSED VISIT [address] [place], [place] [address] [facility] [address] [place] [address] [phone] Social History Tobacco Use Types Packs/Day Years [...] Risk) ed in this visi t Disciplines: Fci, Physical Therapy, Occupational Therapy, Speech Language Pathology, Medical Social Work, Physical Therapy Wound Care Best Practice - Vulnerable Adult 01/03/2021 Active 1 goal linked to 1 goal Vulnerable Adult or Minor scheduled/documen i ntervention or Minor kenyetta intervention scheduled/d ocument Disciplines: ed in this visi t Fci, Physical Therapy, Occupational Therapy, Speech Language Pathology, Home Health Aide, Medical Social Work, Physical Therapy Wound Care Best Practice - Pain Assessment 01/03/2021 Active 1 goal linked t o 1 goal Pain Assessment and Management scheduled/docume n intervention and Management kenyetta intervention scheduled/d ocument Disciplines: ed in this visi t Fci, Physical Therapy, Occupational Therapy, Speech Language [...] life. documented in this encounter Care Teams Church History Professor Relationship Specialty Start Date End Date Placido Ott MD PCP - General Internal Medicine 10/26/17 10/17/21 [address] [place] [address] documented as of this encounter
--- OUTSIDE RECORDS SUMMARY | 2022-04-08 12:08 | XMS_ITS | Encounter Summary ---
:1935 Author Organization [employer] Address [address] [place] [id number] Care Team Providers Name Role Phone Placido Ott MD Primary Care Provider Encounter Details Date Type Department Care Team Description 01/14/2021 Home Care Visit [facility] Bayron Knox MISSED VISIT [address] [address] [phone] (Wo rk) Social History Tobacco Use Types [...] Type - SN MISSED VISIT Discipline - Half-Way Problems Problem Description Start Date Status Goals Interventions Aftercare Assessment of 01/03/2021 Active 1 goal linked to 2 goa l assessment aftercare scheduled/docume interventio ns Disciplines: following general nted scheduled/ documen Half-Way surgery intervention kenyetta in this visit Best Practice - Medication 01/03/2021 Active 1 goal linked to 1 g oal Medication Management (Low scheduled/docume int ervention Management (Low risk) nted scheduled /documen Risk) intervention kenyetta in this vis it Disciplines: Half-Way, Physical Therapy, Occupational Therapy, Speech Language Pathology, Medical Social Work, Physical Therapy Wound Care Best Practice - Vulnerable Adult 01/03/2021 Active 1 goal linked to 1 goal Vulnerable Adult or Minor scheduled/docume in tervention or Minor nted scheduled/docum en Disciplines: intervention kenyetta in this vis it Half-Way, Physical Therapy, Occupational Therapy, Speech Language Pathology, Home Health Aide, Medical Social Work, Physical Therapy Wound Care Best Practice - Pain Assessment 01/03/2021 Active 1 goal linked t o 1 goal Pain Assessment and Management scheduled/docume intervention and Management nted scheduled/docum en Disciplines: intervention kenyetta in this vis it Half-Way, Physical Therapy, Occupational Therapy, Speech Language Pathology, Medical Social Work, Physical Therapy Wound Care Urinary - Patient is free of 01/03/2021 Active 1 goal linked to 2 goal Assessments urinary scheduled/docume interventio ns Disciplines: complications nted scheduled/docu men Half-Way intervention kenyetta in this visit Goals Goal [...] spasms documented in this encounter Care Teams Pork Cutlet Maker Relationship Specialty Start Date End Date Placido Ott MD PCP - General Internal Medicine 10/26/17 10/17/21 [address] [place] [address] documented as of this encounter
--- OUTSIDE RECORDS SUMMARY | 2022-04-08 12:08 | XMS_ITS | Encounter Summary ---
:1935 Author Organization [employer] Address [address] [place] [address] Care Team Providers Name Role Phone Placido Ott MD Primary Care Provider Encounter Details Date Type Department Care Team Description 01/07/2021 Home Care Visit [facility] Pebbles Vann, OT INITIAL [place] OTR/L EVALUATION [address] [place] [address] [phone] Social History Tobacco Use Types Packs/Day Years [...] documented as of this encounter Miscellaneous Notes [facility] - Pebbles Vann, OTR/L - 01/07/2021 2:01 PM CDT Pt seen today for OT eval after back surgery. post op assessment L3-L4 lateral recess decompression via right sided approach DISCIPLINES INVOLVED: SN Verma, PT Gael hernandez then EDVIN Jacob HOSPITALIZED AT: [place] DATES: 12/31-01/01 TCU AT: n/a DESCRIPTION OF [...] OT and will be eval only. Pebbles Vann OT/L documented in this encounter Plan of [...] Risk) ed in this visi t Disciplines: Snf, Physical Therapy, Occupational Therapy, Speech Language Pathology, Medical Social Work, Physical Therapy Wound Care Best Practice - Vulnerable Adult 01/03/2021 Active 1 goal linked to 1 goal Vulnerable Adult or Minor scheduled/documen i ntervention or Minor amish intervention scheduled/d ocument Disciplines: ed in this visi t Snf, Physical Therapy, Occupational Therapy, Speech Language Pathology, Home Health Aide, Medical Social Work, Physical Therapy Wound Care Best Practice - Pain Assessment 01/03/2021 Active 1 goal linked t o 1 goal Pain Assessment and Management scheduled/docume n intervention and Management amish intervention scheduled/d ocument Disciplines: ed in this visi t Snf, Physical Therapy, Occupational Therapy, Speech Language Pathology, Medical Social Work, Physical Therapy Wound Care Best Practice - Fall Prevention 01/03/2021 Active 1 goal linked t o 1 goal Falls Prevention scheduled/documen interventi on Disciplines: amish intervention scheduled/d ocument Snf, ed in th is visit Physical Therapy, Occupational Therapy, Speech Language Pathology, Medical Social Work, Physical Therapy Wound Care Best Practice - Vital Signs 01/03/2021 Active 1 goal linked to 1 goal Vital Signs - Parameters scheduled/documen inte rvention Parameters amish intervention scheduled/d ocument Disciplines: ed in this visi t Snf, Physical Therapy, Occupational Therapy, Speech Language Pathology, Medical Social Work, Coil Rewind Machine Operator, Physical Therapy Wound Care OT ADL Deficits [...] tter. documented in this encounter Care Teams Accounting Advisory Services Manager Relationship Specialty Start Date End Date Placido Ott MD PCP - General Internal Medicine 10/26/17 10/17/21 [address] [place] [address] documented as of this encounter
--- OUTSIDE RECORDS SUMMARY | 2022-04-08 12:08 | XMS_ITS | Encounter Summary ---
:1935 Author Organization [employer] Address [address] [place] [address] Care Team Providers Name Role Phone No Primary/Referring, Phy Primary Care Provider Unavailable Reason for Referral Consult/Transfer Care (Routine) - Incomplete Specialty Diagnoses / Procedures Referred By Contact Refer red To Contact Diagnoses Monica Vogel MBBS [address] [place], [place] [address] Referral ID Status Reason Start Date Expiration Date Visits V isits Requested Authorized [id number] Incomplete 12/12/2021 06/10/2022 1 1 Scheduling Instructions [...] Contact Diagnoses Monica Vogel MBBS [address] [place], [place] [address] Referral ID Status Reason Start Date Expiration Date Visits V isits Requested Authorized [id number] Incomplete 12/12/2021 03/12/2022 1 1 Scheduling Instructions [...] ask your clinician's staff to assist you. [facility] - Incomplete Specialty Diagnoses / Procedures Referred By Contact Refer red To Contact Diagnoses Diplopia Monica Kim MBBS [address], [place] [address] Referral ID Status Reason Start Date Expiration Date Visits V isits Requested Authorized [id number] Incomplete 12/12/2021 06/10/2022 999 999 Scheduling Instructions [...] PA-C MR Brain WO IV Cont [address] [place] [address] Referral ID Status Reason Start Date Expiration Date Visits Requ ested Visits Authorized [id number] Closed 12/11/2021 03/12/2023 1 1 Procedure/Equipment (Routine) - Closed Specialty Diagnoses / Procedures Referred By Contact Refer red To Contact Procedures Secrist, Nicolette W, PA-C CT Angio Head Neck W IV Cont [address] [facility] [address] Referral ID Status Reason Start Date Expiration Date Visits Requ ested Visits Authorized [id number] Closed 12/11/2021 03/12/2023 1 1 Reason for Visit Reason Comments VISION, DOUBLE DIZZINESS Encounter Details Date Type Department Care Team Description 12/11/2021 - Emergency [facility] Med [facility]urg Nicolette Mcclure PA-C [address] [place] [address] Diplopia (Primary Dx); 12/12/2021 927 Bakari Dunbar MD [address] [place] [address] Vertigo; Filemon Beasley MD [address] [place] [address] Nausea; [place], [place] Monica Kim, LAZARO [address] [place] [address] Dizziness; [address] Nihss score 0; [phone] Contact with an d (suspected) exposure to covid-19; Gout, unspecifi ed cause, unspecified chronicity, unspecified site; Uncomplicated a sthma, unspecified asthma severity, unspecified whether persistent; Gastroesophagea l reflux disease, unspecified whether esophagitis [...] neuroophthalmologist. They prefer to be seen at [facility] as they live in [place]. ?? The patient is cleared from discharge [...] - 12/12/2021 10:47 AM CDT [place] [address] Main or [phone] Clinic Phone Numbers [facility] [phone] Emergency & Urgently Needed Care: For emergencies call 911 and/or get medical help right away. If you are a [facility] member and have medical needs after clinic hours you may call the CareLineat [phone] or . If you have had an orthopedic surgery please contact [facility] directly, both during and after clinic hours, at [phone]. Healthy Habits - Move! Aim for fitness [...] moderation - Choose healthy sources of fat: [place], peanut or canola oils, 1/4 cup nuts [...] doctor/pharmacist if it is safe to take xzvh-iap-rjhpkbp drugs or herbs with your prescribed medicine. [...] further assistance after your discharge, please contact [phone] or visit [email or web address] can offer further [...] weight will also be followed by the Security And Compliance Project Manager when you go in for your treatment. We hope you had a positive experience and that you can definitely recommend [facility] to your family and friends. Discharge Instr - Non RX MedsSLana harmon RN - 12/12/2021 7:27 AM CDT documented [...] home health clinician.] fluticasone (AKA Place 1 [place] into 0 08/03/2013 FLONASE) 50 MCG/ACT both [...] Home Care PT/ OT as recommended by [facility] therapies. Call placed to pt at [phone], left voicemail directing pt to contact me at [phone] if he wishes to have HC services arranged. Will f/u asneeded pending pt return call. LUCAS Mitchell 12/14/2021, 12:36 PM Felix Donald - 12/11/2021 9:42 PM CDT [facility] Pharmacy Medication History Note Concerns to be addressed by team prior to discharge: None Current Facility-Administered Medications for the 12/11/21 encounter (Hospital Encounter) Medication Dose Route Frequency Provider Last Rate Last Admin ??? cyanocobalamin ([id number]) injection 1,000 mcg 1,000 mcg Intramuscular Other (See Comments) Placido Ott MD 1,000 mcg at 04/28/18 0423 Outpatient Medications Marked as Taking for the [...] FLONASE) 50 MCG/ACT nasal solution Place 1 [place] into both nostrils two times aday. Indications: [...] review: The following medications were added to [employer] MED LIST: Diphenhydramine-APAP 25-500 mg Fish Oil 1000 mg The following medications were deleted from [employer] MED LIST: Amoxicillin 500 mg Dorzolamide-timolol 22.3-6.8 mg Hydroxyzine pamoate 25 mg Oxycodone 5 mg Sennosides-docusate 8.6-50 mg The following medications (strength, dose or directions) were changed on [employer] MED LIST: None Recently filled medications that patient states they are not taking: Dorzolamide-timolol 22.3-6.8 mg Medication adherence concerns/barriers: None This Med Rec was completed using: [employer] (website) and Patient Interview Primary Pharmacy is: [place], [place]. This document completed by: Felix Donald [...] until 12/11/2021 when he was at a [facility] dinner andwas watching speeches. He developed the [...] a car. He was brought to the [place] ED where a code CVA was called and ahead CT was unremarkable. Brain MRI was obtained that was negative for stroke. At [place], the patient's vertigo improved. However, he continued [...] propionate (FLONASE) 50 MCG/ACT nasal spray 1 [place] 1 [place] Both Nostrils BID ??? melatonin tablet 6 [...] Citrullus Vulgaris Anaphylaxis ??? Excedrin Extra Strength [Tlqlwzu-Xlakxguwtyucj-Tcdorgla] Anaphylaxis ? ? Molds & Smuts Breathing [...] Not on file Occupational History ??? 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 Smoking status: Former Smoker [...] Yes Comment: 100 % Social History Narrative Design Chief. Social Determinants of Health Financial Resource Strain: Not on file Food Insecurity: No Food Insecurity ??? Worried About Running Out of Food in the Last Year: Never true ??? 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 No tobacco use. Family History [...] -- 87 -- 95 % -- -- 12/11/212229 (!) 139/107 -- -- 90 -- 97 % -- -- 12/11/212099 (!) 155/97 -- -- 85 -- 97 % -- -- 12/11/212056 -- -- -- 82 -- 97 % -- -- 12/11/212055 (!) 154/98 -- -- -- -- -- -- -- 12/11/212000 (!) 152/99 -- -- 85 14 -- -- -- 12/11/211949 -- 98.3 ??F (36.8 ??C) Oral -- [...] pronation/supination, and opening/closing fist. No dysmetria on oymxxv-nhks-wafrvv or zbaw-nzjo-psbg. No truncal ataxia. DATA: Laboratory Studies: I [...] neuroophthalmologist. They prefer to be seen at [facility] as they live in [place]. The patient is cleared from discharge assuming that he is able to walk independently. RECOMMENDATIONS: -check labs for HIV, CONSTANTIN, ESR, CRP, HbA1c, ANCA, and Lyme -recommend eye patch -outpatient follow-up with [facility] neuropathologist -okay for d/c today if able to walk at baseline (uses cane) Of note, I spent greater than 50 minutes in the evaluation of this patient. Michael Frazier MD [facility] documented in this encounter OR Notes H&P - Filemon Woods MD - 12/12/2021 1:21 AM CDT [facility] MEDICINE HISTORY AND PHYSICAL Name: Zaid Rutledge [...] few weeks ?? He came up to [place] for a [facility] dinner for a good friend (he is a retired x ray equipment mechanic and hisfriend is just retiring from the [...] at AM Yes Yes Sig: Place 1 [place] into both nostrils two times a day. [...] Facility-Administered Medications Last Administration Doses Remaining cyanocobalamin ([id number]) injection 1,000 mcg 04/28/2018 3:13 PM 4 Allergies: Allergies Allergen Reactions ??? Citrullus Vulgaris Anaphylaxis ??? Excedrin Extra Strength [Rrlqikb-Jhxunuvkqremf-Fofwujgt] Anaphylaxis ? ? 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 . Lives in [place], [place]. Code status: Full code Review of [...] under observation status. Fidencio Woods MD - [facility] Medicine 12/12/2021 1:21 AM documented in this encounter ED Notes Gabbi Reyes RN - 12/11/2021 11:53 PM CDT [facility] Nursing Admission Note From Emergency Department Admission [...] Croft MD - 12/11/2021 8:15 PM CDT [facility] Emergency Department Attending Note I have personally [...] control. ED Course as of 12/12/21 1121 ThuDec 11, [id number] Reassessed patient. NIH 0 Bilateral [...] no stroke is visualized on MRI. [LS] 2243 MR Brain WO IV Cont IMPRESSION: 1. [...] Mcclure PA-C - 12/11/2021 8:00 PM CDT [facility] Emergency Medicine Visit Note Chief Complaint: VISION, [...] Speech is clear and fluent. 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 Negative pronator drift. CN II-XII grossly intact. Sensation grossly intact to light touch in upper and lower extremities bilaterally. Able to perform gpsjvm-jeho-farhld test bilaterally. Able to perform heel-davison test bilaterally. Negative Romberg. Skin: warm and dry. No rashes. Psych: normal affect and behavior. JONATHAN Rutledge is a 86 y.o. old male [...] PA-C ED Course as of 12/12/21 1121 Wed Dec 11, [id number] Reassessed patient. NIH 0 [...] no stroke is visualized on MRI. [LS] 2243 MR Brain WO IV Cont IMPRESSION: 1. [...] Type Priority Associated Diagnoses Order S chedule Home Care Referral Routine Diplopia Ordered: 2021 [...] EXAM: MR BRAIN WO IV CONT LOCATION: DATE/TIME: 12/11/2021 10:12 PM INDICATION: Neuro deficit, acute, stroke suspected; double vision, dizziness COMPARISON: CTA head and neck on the abida TECHNIQUE: Routine multiplanar multisequ ence head MRI without intravenous contrast. FINDINGS: INTRACRANIAL CONTENTS: No acute or subac upper mattaponi infarct. No mass, acute hemorrhage, or extra-axial [...] EXAM: MR BRAIN WO IV CONT LOCATION: DATE/TIME: 12/11/2021 10:12 PM INDICATION: Neuro deficit, acute, stroke suspected; double vision, dizziness COMPARISON: CTA head and neck on the TECHNIQUE: Routine multiplanar multisequ ence head MRI without intravenous contrast. FINDINGS: INTRACRANIAL CONTENTS: No acute or subac upper mattaponi infarct. No mass, acute hemorrhage, or extra-axial [...] At Signature COVID-19 Not Detected Not 12/11/2021 [place] Interpretation Detected 9:45 PM HOSPITAL CDT LAB Source Nasopharyngeal 12/11/2021 [place] swab 9:45 PM HOSPITAL CDT LAB Specimen Anatomical Collection Method Collection Time Receive d Time (Source) Location / / Volume Laterality Swab (Source Non-blood 12/11/2021 8:56 PM 9:04 Required) Collection / CDT PM CDT (Nasopharyngeal Unknown swab) Narrative LAB - 12/11/2021 9:45 PM CDT Test performed by real-time PCR. This test has been authorized by the FDA under an Emergency Use Authorization (EUA) for use by authorized laboratories. Nicolette Mcclure PA-C LAB_1 Performing Organization Address City/State/ZIP Code Phon e Number LAB [address] [place] [address] CT Angio Head Neck W IV Cont Code CVA (12/11/2021 8:26 PM CDT) Anatomical Region Laterality Modality Head, Vascular Computed Tomography Specimen (Source) Anatomical Collection Method Collection Time Re ceived Time Location / / Volume Laterality 12/11/2021 8:26 PM CDT Narrative 12/11/2021 8:39 PM CDT EXAM: CT ANGIO HEAD NECK W IV CONT CODE CVA LOCATION: DATE/TIME: 12/11/2021 8:26 PM INDICATION: Neuro deficit, acute, stroke suspected COMPARISON: MRA neck 10/28/2016, head CT 10/02/2016 CONTRAST: IOHEXOL 350 MG/ML IV SOLN 100 mL TECHNIQUE: Head and neck CT angiogram IV contrast. Noncontrast head CT followed by axial helical CT images of the head and neck vessels obtained during the arterial phase of intravenous contrast ad ministration. Axial 2D reconstructed ford ges and multiplanar 3D MIP reconstructed images of the head and neck vessels were performed by the technologist. Dose reduction techniques were used. All stenosis measurements made according to NASCET c riteria unless otherwise specified. FINDINGS: NONCONTRAST HEAD CT: [...] aneurysm, or high flow vascular malformation. Standard [place] of [place] anatomy. POSTERIOR CIRCULATION: No stenosis/occlu adroe, aneurysm, or high flow vascular malformation. Balanced [...] NECK W IV CONT CODE CVA LOCATION: DATE/TIME: 12/11/2021 8:26 PM INDICATION: Neuro deficit, [...] aneurysm, or high flow vascular malformation. Standard [place] of [place] anatomy. POSTERIOR CIRCULATION: No stenosis/occlu [...] GHP QTc 449 ms MUSE GHP P [place] 54 degrees MUSE GHP R [place] -11 degrees MUSE GHP T [place]branch 15 degrees MUSE GHP Specimen (Source) Anatomical Collection Method Collection Time Re ceived Time Location / / Volume Laterality 12/11/2021 8:25 PM CDT Narrative MUSE GHP - 12/12/2021 3:06 PM CDT Poor data quality, interpretation may be adversely affected Sinus rhythm Normal ECG When compared with ECG of 19-DEC-2020 15 :28, No significant change was found Confirmed by Hilary Chatterjee ([id number]) on 3:06:26 PM Procedure Note Hilary Chatterjee MD - 12/12/2021Formatti ng of this note might be different from the original. Poor data quality, interpretation ma y be adversely affected Sinus rhythm Normal ECG When compared with ECG of 19-DEC-2020 15 :28, No significant change was found Confirmed by Hilary Chatterjee ([id number]) on 3:06:26 PM Nicolette Mcclure PA-C EKG Performing Organization Address City/State/ZIP Code Phon e Number MUSE [facility] [address] [place] [address] Extra Blue top tube (12/11/2021 8:02 PM CDT) [facility] gist Method Time Signature Extra Blue Top Specimen 12/11/2021 [place] Drawn will be held 10:02 PM CDT HOSPITAL LAB for 3 days Specimen Anatomical Collection Method / Collection Time Recei anisa Time (Source) Location / Volume Laterality Blood Venipuncture / 12/11/2021 8:02 12/11/2021 8:05 Unknown PM CDT PM CDT Nicolette Mcclure PA-C LAB_1 Performing Organization Address City/[facility]/ZIP Code Phon e Number LAB [address] [place] [address] Troponin I (12/11/2021 8:02 PM CDT) P athologist Signature Troponin I <0.01 0.00 - 0.03 12/11/2021 [place] ng/mL 8:31 PM CDT HOSPITAL LAB Specimen Anatomical Collection Method / Collection Time Recei anisa Time (Source) Location / Volume Laterality Blood Venipuncture / 12/11/2021 8:02 12/11/2021 8:05 Unknown PM CDT PM CDT Nicolette Mcclure PA-C LAB_1 Performing Organization Address City/[facility]/ZIP Code Phon e Number LAB [address] [place] [address] aPTT (Activated Partial Thromboplastin Time) (12/11/2021 8:02 PM CDT) P athologist Signature APTT 35.9 22.5 - 36.5 12/11/2021 [place] Seconds 8:16 PM CDT HOSPITAL LAB Specimen Anatomical Collection Method / Collection Time Recei anisa Time (Source) Location / Volume Laterality Blood Venipuncture / 12/11/2021 8:02 12/11/2021 8:05 Unknown PM CDT PM CDT Nicolette Mcclure PA-C LAB_1 Performing Organization Address [facility]/ZIP Code Phon e Number LAB [address] [place] [address] INR/Protime (PT/INR) (12/11/2021 8:02 PM CDT) athologist Signature Protime 12.7 11.8 - 14.6 12/11/2021 [place] Seconds 8:16 PM CDT HOSPITAL LAB INR 1.0 0.9 - 1.1 12/11/2021 [place] 8:16 PM CDT HOSPITAL LAB Specimen Anatomical Collection Method / Collection Time Recei anisa Time (Source) Location / Volume Laterality Blood Venipuncture / 12/11/2021 8:02 12/11/2021 8:05 Unknown PM CDT PM CDT Narrative LAB - 12/11/2021 8:16 PM CDT Therapeutic range determined by protocol established by anticoagulation provider. Nicolette Mcclure PA-C LAB_1 Performing Organization Address [facility]/ZIP Code Phon e Number LAB [address] [place] [address] (ABNORMAL) Basic Metabolic Panel (K, Na, CO2, Cl, Gluc, BUN, Creat, Ca) (Chem 8) (12/11/2021 8:02 PMCDT) [facility] Sodium 139 136 - 145 12/11/2021 [place] mmol/L 8:24 PM [facility] LAB Potassium 4.4 3.5 - 5.1 12/11/2021 [place] mmol/L 8:24 PM [facility] Chloride 106 98 - 109 12/11/2021 [place] mmol/L 8:24 PM [facility] LAB CO2 22 20 - 29 12/11/2021 [place] mmol/L 8:24 PM [facility] Anion Gap 11 7 - 16 12/11/2021 [place] mmol/L 8:24 PM [facility] Calcium 8.8 8.4 - 10.4 12/11/2021 [place] mg/dL 8:24 PM [facility] BUN 18 7 - 26 12/11/2021 [place] mg/dL 8:24 PM [facility] Creatinine 1.23 (H) 0.73 - 12/11/2021 [place] 1.18 mg/dL 8:24 PM [facility] GFR, Estimated 57 (L) >60 12/11/2021 [place] mL/min/1.7 8:24 PM [facility] 3m2 Glucose 96 70 - 100 12/11/2021 [place] mg/dL 8:24 PM [facility] Comment: The given reference range is fo r the fasting state. Non-fasting reference range for glucose is 70 - 180 mg/dL. Specimen Anatomical Collection Method / Collection Time Recei anisa Time (Source) Location / Volume Laterality Blood Venipuncture / 12/11/2021 8:02 12/11/2021 8:05 Unknown PM CDT PM CDT Narrative LAB - 12/11/2021 8:24 PM CDT The [...] Organization Address City/State/ZIP Code Phon e Number LAB [address] [place] [address] Hemogram with Platelets (12/11/2021 8:02 PM CDT) P athologist Signature WBC 6.5 3.5 - 10.5 12/11/2021 [place] x10(9)/L 8:09 PM [facility] RBC 4.74 4.32 - 12/11/2021 [place] 5.72 8:09 PM [facility] x10(12)/L Hemoglobin 14.5 13.5 - 12/11/2021 [place] 17.5 g/dL 8:09 PM [facility] HCT 43.6 38.8 - 12/11/2021 [place] 50.0 % 8:09 PM T HOSPITAL LAB MCV 92.0 80.0 - 12/11/2021 [place] 100.0 fL 8:09 PM T HOSPITAL LAB MCH 30.6 27.6 - 12/11/2021 [place] 33.3 pg 8:09 PM [facility] MCHC 33.3 31.5 - 12/11/2021 [place] 35.2 g/dL 8:09 PM [facility] LAB RDW 13.9 11.9 - 12/11/2021 [place] 15.5 % 8:09 PM [facility] LAB Platelets 212 150 - 450 12/11/2021 [place] x10(9)/L 8:09 PM [facility] Automated NRBC 0 <=0 /100 12/11/2021 [place] WBC 8:09 PM [facility] Specimen Anatomical Collection Method / Collection Time Recei anisa Time (Source) Location / Volume Laterality Blood Venipuncture / 12/11/2021 8:02 12/11/2021 8:05 Unknown PM CDT PM CDT Nicolette Mcclure PA-C LAB_1 Performing Organization Address City/State/ZIP Code Phon e Number LAB [address] [place] [address] documented in this encounter Visit Diagnoses Diagnosis Diplopia - Primary Diplopia Vertigo Dizziness and giddiness Nausea Nausea alone [...] hazards to health Acquired cerebral ventriculomegaly (HRC) GERD (gastroesophageal reflux disease) Esophageal reflux Mild persistent asthma without complicat ion (HRC) Unspecified asthma Prostate cancer (HRC) Malignant neoplasm of prostate Vertebrobasilar artery syndrome Plan of Care - Lana Shin RN - 12/12/2021 11:46 AM CDT Discharge Note - Nursing Admission Date/Time: 12/11/2021 [...] Akins OTR/[place] - 12/12/2021 11:00 AM CDT [facility] Acute Occupational Therapy Evaluation and discharge Assessment: [...] is recommended at discharge and follow up w/barrel centerer for visual therapy/neuroopthamologist for further diagnosis. Subjective: [...] equal time both eyes until follow up w/barrel centerer forfurther instruction. Discharge hospital OT. Continue with homecare OT to address safe ADL/IADL's with further visual/cognition testing. Orders and Chart reviewed Yes Associated attestation - Monica Kim MBBS - 12/12/2021 1:44 PM CDT LAZARO Walters 12/12/2021, 1:44 PM Plan of Care - Yesenia Lange PT - 12/12/2021 9:31 AM CDT [facility] Acute Physical Therapy Evaluation / Discharge Assessment: [...] Abbott RN - 12/12/2021 6:49 AM CDT Plan of Care Note (Nursing) Assessment: Patient [...] Abbott RN - 12/12/2021 12:35 AM CDT [facility] Nursing Admit Note Admission Date/Time: 12/12/2021 at [...] Terry RN - 12/11/2021 7:45 PM CDT STROKE CODE Chief Complaint:Double vision Arrival Time: 1935 Pt Arrives by: Arrival Choices: Triage Code CVA Called at: 1950 Last Known Well Time:1829 Symptom Onset Time: 1829 [place] Stroke Scale: Does the patient have a facial droop? no Does the patient have an arm drift? no Does the patient have slurred speech? no Did the symptoms start in the last 24 hours? yes BEFAST Scale additional items: Does the patient c/o acute balance issues/dizziness? yes Does the patient c/o acute change in eyesight? yes [place] Coma: 4 - Opens eyes on own [...] 100 mg, Oral, DAILY, First dose on Thu12/12/21 at 0800, Until Discontinued, Should administer after meals with plenty of fluids. aspirin tablet 325 mg Given 12/12/2021 7:41 AM CDT 325 mg 325 mg, Oral, DAILY, First dose on Thu12/12/21 at 0800, Until Discontinued bisacodyl (DULCOLAX) rectal [...] Drop, Both Eyes, BID, First dose on Thu12/12/21 at 0800, Until Discontinued, If patient uses multiple eye drops, allow approximately 5 minutes between instillation of each medication., Indications: Increased Intraocular Pressure fluticasone propionate (FLONASE) 50 MCG/ACT Given 11/15 7:44 AM CDT 1 [place] nasal spray 1 [place] 1 [place], Both Nostrils, BID, First dose on Thu12/12/21 [...] 100 mg 0741 (Given - Provider: Lana Shin RN) 100 mg, Oral, DAILY, First dose on Thu at 0800, Until Discontinued, Should administer after meals with plenty of fluids. aspirin tablet 325 mg 0741 (Give n - Provider: Lana Shin RN) 325 mg, Oral, DAILY, First dose on Thu12/12/21 at 0800, Until Di scontinued budesonide-formoterol (SYMBICORT) 80-4.5 MCG/ACT inhaler 2 Puff 0744 (Given - Provider: Laan Shin, EULOGIO) 2 Puff, Inhalation, BID, First dose on Ana 12/12/21 at 0800, Until Discontinued dorzolamide (TRUSOPT) 2 % ophthalmic solution 1 Drop 0744 (Given - Provider: Lana Shin RN) 1 Drop, Both Eyes, BID, First dose on 12/12/21 at 0800, Until Discontinued, If patient uses multiple eye drops, allow approximately 5 minutes between instillation of each medication., Indications: Increased Intraocular Pressure fluticasone propionate (FLONASE) 50 MCG/ACT nasal spray 1 [place] 0744 (Given - Provider: Lana Shin RN) 1 [place], Both Nostrils, BID, First dose on Thu12/12/21 [...] 2138 (Given - Provider: Gabbi Reyes RN) 002 (Canceled Entry - Provider: Shari Abbott RN [...] Discontinued prochlorperazine (COMPAZINE) injection 10 mg (COMPLETED) 2338 (Given - Provider: Gabbi Reyes RN) 10 mg, Intravenous, ONCE, On Thu12/11/21 at 2230, For 1 dose sodium chloride 0.9% injection 3 mL 08 (Given - Provider: Lana M Stahn, RN) 3 mL, Intravenous, Q12H, First dose on Ana 12/12/21 at 0800, Until Discontinued PRN Medication Order 12/10/2021 12/11/2021 12/12/2021 acetaminophen (TYLENOL) tablet 650 mg 650 mg, Oral, Q4H PRN, Pain/Fever, Start ing on Ana 12/12/21 at 0125, Until Ana 12/12/21 at 1414 ALBUterol sulfate HFA inhaler 2 Puff 2 Puff, Inhalation, Q4H PRN, Cough/Wheez ing, Shortness of Breath, Starting on Ana 12/12/21 at 0122, Until Ana 12/12/21 at 1414, [...] HS PRN, Sedation, Sleep, Sta rting on Ana 12/12/21 at 0124, Until Ana 12/12/21 at 1414, As needed for sleep polyethylene [...] stools.
documented in this encounter Care Teams Appeals Court Associate Justice Relationship Specialty Start Date End Date No Primary/Referring, Phy PCP - General 12/11/21 documented as of this encounter
--- OUTSIDE RECORDS SUMMARY | 2022-04-08 12:08 | XMS_ITS | Encounter Summary ---
:1935 Author Organization [employer] Address [address], [place] [address] Care Team Providers Name Role Phone Placido Ott MD Primary Care Provider Encounter Details Date Type Department Care Team Description 01/09/2021 Home Care Visit [facility] Bayron Batista ROUTINE VISIT [address] [place], [place] [address] [place] [address] [place], [place] [phone] (Wo rk) Social History Tobacco Use Types [...] Type - SN Routine Visit Discipline - Group Home Problems Problem Description [...] Therapy, Speech Language Pathology, Medical Social Work, Finishing Lab Technician, Physical Therapy Wound Care Urinary - Patient [...] on when and how to call RN congregational care pastor 05/01, or 911 if needed. Assess for [...] spasms documented in this encounter Care Teams All Source Analyst Relationship Specialty Start Date End Date Placido Ott MD PCP - General Internal Medicine 10/26/17 10/17/21 [address] [place] [id number] documented as of this encounter
--- OUTSIDE RECORDS SUMMARY | 2022-04-08 12:08 | XMS_ITS | Encounter Summary ---
:1935 Author Organization [facility] Address [address], [place] [address] Care Team Providers Name Role Phone Placido Ott MD Primary Care Provider Encounter Details Date Type Department Care Team Description 02/13/2021 Lab Visit [facility] [place] Prostate cancer ([facility]C) Laboratory [address] [place] [address] Social History Tobacco Use Types Packs/Day [...] as of this encounter Progress Notes Daryn Ventura RN - 02/13/2021 10:10 AM CDT Results [...] Prostatic 7.7 (H) 0.0 - 4.0 02/13/2021 [place] Specific ng/mL 12:02 PM CDT [facility] Antigen Specimen Anatomical Collection Method / Collection Time Recei anisa Time (Source) Location / Volume Laterality Blood Venipuncture / 02/13/2021 10:19 Unknown AM CDT 10:19 AM CDT Narrative [facility] - 02/13/2021 12:02 PM CDT The Carreon PSA Chemiluminescent immunoas say is used. Results obtained with different test methods or kits cannot be used inte rchangeably. Waaqs Rodney MD LAB_1 Performing Organization Address City/State/ZIP Code Phon e Number [facility] [address] [place] [address] [phone] documented in this encounter Visit Diagnoses Diagnosis Prostate cancer (HRC) Malignant neoplasm of prostate documented in this encounter Care Teams Vendor Analyst Relationship Specialty Start Date End Date Placido Ott MD PCP - General Internal Medicine 10/26/17 10/17/21 [address] [place] [address] documented as of this encounter
--- OUTSIDE RECORDS SUMMARY | 2022-04-08 12:08 | XMS_ITS | Encounter Summary ---
:1935 Author Organization [employer] Address [address], [place] [address] Care Team Providers Name Role Phone No Primary/Referring, Phy Primary Care Provider Unavailable Reason for Visit Procedure/Equipment (Routine) - Closed Specialty Diagnoses / Procedures Referred By Contact Refer red To Contact Procedures Nicolette Mcclure PA-C CT Angio Head Neck W IV Cont [address] [place] [address] Referral ID Status Reason Start Date Expiration Date Visits Requ ested Visits Authorized [id number] Closed 12/11/2021 03/12/2023 1 1 Encounter Details Date Type Department Care Team Description 12/11/2021 Ancillary Procedure [facility] CT [address] [place] [address] Social History Tobacco Use Types Packs/Day Years [...] dose documented in this encounter Care Teams Mechanical Energy Engineer Relationship Specialty Start Date End Date No Primary/Referring, Phy PCP - General 12/11/21 documented as of this encounter
--- OUTSIDE RECORDS SUMMARY | 2022-04-08 12:08 | XMS_ITS | Encounter Summary ---
:1935 Author Organization [employer] Address [address] [address] Care Team Providers Name Role Phone Placido Ott MD Primary Care Provider Reason for Visit Reason Comments QUESTIONS, GENERAL Encounter Details Date Type Department Care Team Description 01/09/2021 Telephone [facility] W I Placido Ott, QUESTIONS, GENERAL [address] Carlos Traore MD [place], [place] [address] [phone] [place], [place] [address] (Wo rk) Social History [...] additional questions or recommendations. Thank you, Bayron Quinn, RN [phone] documented in this encounter Plan of Treatment Not on filedocumented as of this encounter Visit Diagnoses Not on filedocumented in this encounter Care Teams Credit Risk Associate Relationship Specialty Start Date End Date Placido Ott MD PCP - General Internal Medicine 10/26/17 10/17/[address] [place] [address] documented as of this encounter
--- OUTSIDE RECORDS SUMMARY | 2022-04-08 12:08 | XMS_ITS | Encounter Summary ---
:1935 Author Organization [facility] Address [address], [place] [address] Care Team Providers Name Role Phone Placido Ott MD Primary Care Provider Reason for Visit Reason Comments FYI Upcoming appointment on 2021 Encounter Details Date Type Department Care Team Description 08/01/2021 Telephone [facility] Waqas Rodney I (Upcoming Beatriz Griffith MD appointment on [facility] [address] 08/13/2021) [address] [place] [address] [place], [place] [phone] Social History Tobacco Use Types Packs/Day Years [...] Noted. Deepika Arellano RN 08/01/2021, 4:45 PM RVISOR LOCOMOTIVE Michaela Pro - 08/01/2021 4:42 PM CST Reason for call? Patient states I will be switching my appointment on the 13 of August to a video visit instead of an in office visit - I just thought I should let you know Best time to reach you? anytime Ok to leave a detailed message? yes Michaela Pro ....................................08/01/2021 4:42 PM RVISOR LOCOMOTIVE documented in this encounter Plan of Treatment Not on filedocumented as of this encounter Visit Diagnoses Not on filedocumented in this encounter Care Teams Business Travel Consultant Relationship Specialty Start Date End Date Placido Ott MD PCP - General Internal Medicine 10/26/17 10/17/21 [address] [place] [address] documented as of this encounter
--- OUTSIDE RECORDS SUMMARY | 2022-04-08 12:09 | XMS_ITS | Encounter Summary ---
:1935 Author Organization [employer] Address [address] [address] Care Team Providers Name Role Phone Placido Ott MD Primary Care Provider Encounter Details Date Type Department Care Team Description 11/02/2020 Orders Only Initial Department Provider, [place], [address] MICHAEL COLUNGA MD [place], [place] [address] Interface provider [phone] [place] [address] Social History Tobacco Use Types Packs/Day Years [...] on filedocumented in this encounter Care Teams Direct Care Professional Relationship Specialty Start Date End Date Placido Ott MD PCP - General Internal Medicine 10/26/17 10/17/21 [address] [place] [address] documented as of this encounter
--- OUTSIDE RECORDS SUMMARY | 2022-04-08 12:09 | XMS_ITS | Encounter Summary ---
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 Douglas Mea MD [address] [place] [address] Referral ID Status Reason Start Date Expiration Date Visits Requ ested Visits Authorized [id number] Closed 01/01/2021 04/02/2022 999 999 Encounter Details Date Type Department Care Team Description 01/03/2021 Home Care Visit [facility] Alejandra Smiley, OASIS [facility] [address] [facility] [address] [place] [address] [phone] Social History Tobacco Use Types Packs/Day Years [...] - 01/03/2021 10:05 AM CDT ADMITTED TO [facility] ON: 01/03/21 HOMECARE FOCUS OF CARE/REASON FOR REFERRAL: observation and assessment for changes in condition, wound care, weakness, debilitation, falls risk, post op assessment L3-L4 lateral recess decompression via right sided approach DISCIPLINES INVOLVED: SN Bayron, PT Gael hernandez then Cecil, OT Pebbles HOSPITALIZED AT:?[facility]? DATES: 12/31-01/01 TCU AT: n/a? DESCRIPTION OF [...] Order S chedule Home Care Referral Routine Bilateral stenosis of [...] Therapy, Speech Language Pathology, Medical Social Work, Violin Tutor, Physical Therapy Wound Care Urinary - Patient [...] TODAY, IF NO BM BY TOMORROW, WILL CAN WASHER A SALIN E ENEMA AND ZAID IS [...] on when and how to call RN on air personality 05/01, or 911 if needed. Assess for [...] Description: Goal: Urinary Teaching/Learning Needs ARISE, CALL [facility] Teach of urinary tract 24/ NURSE TO infections (UTIs), ADDRESS G FRITZ [...] spasms documented in this encounter Care Teams Senior Project Manager Relationship Specialty Start Date End Date Placido Ott MD PCP - General Internal Medicine 10/26/17 10/17/21 [address] [place] [address] documented as of this encounter
--- OUTSIDE RECORDS SUMMARY | 2022-04-08 12:09 | XMS_ITS | Encounter Summary ---
:1935 Author Organization [facility] Address [address], [place] [address] Care Team Providers Name Role Phone Placido Ott MD Primary Care Provider Encounter Details Date Type Department Care Team Description 12/19/2020 Lab Visit [facility] Elevat ed BP without diagnosis of hypertension; Beatriz Laborator y Urinary problem [address] [place] [address] Social History Tobacco Use Types Packs/Day [...] [facility] QTc 454 ms [facility] P Sherman -6 degrees [facility] R Sherman -9 degrees [facility] T Sherman 0 degrees [facility] Specimen (Source) Anatomical Collection Method Collection Time Re ceived Time Location / / Volume Laterality 12/19/2020 3:28 PM CDT Narrative [facility] - 12/19/2020 3:59 PM CDT Sinus rhythm Normal ECG When compared with ECG of 16-JAN-2016 17 :28, No significant change was found Confirmed by MD SOLARES ANDREW ([id number]) on 12/19/2020 3:58:55 PM Procedure Note Andry Solares MD - 12/19/2020Format ting of this note might be different from the original. Sinus rhythm Normal ECG When compared with ECG of 16-JAN-2016 17 :28, No significant change was found Confirmed by MD SOLARES ANDREW ([id number]) on 12/19/2020 3:58:55 PM Andry Solares MD EKG Performing Organization Address City/State/ZIP Code Phon e Number [facility] [address] [place] [address] Ecg 12-Lead Routine (Lab perform) (12/19/2020 3:23 PM CDT) P athologist Signature EKG Completed 12/19/2020 [place] AT 5:01 PM CDT [address] Specimen Anatomical Collection Method Collection Time Receive d Time (Source) Location / / Volume Laterality Other Specimen 12/19/2020 3:23 PM 021 3:23 Type CDT PM CDT Andry Solares MD LAB_1 Performing Organization Address City/[facility]/ZIP Code Phon e Number [facility] [address] [place], [place] [address] [facility] [address] [place], [place] [address] [phone] (ABNORMAL) Basic Metabolic Panel (12/19/2020 3:23 PM [...] CREST GFR, Estimated 51 (L) >60 12/19/2020 [place] AT mL/min/1.7 3:45 PM CDT [address] 3m2 Glucose 100 70 - 100 12/19/2020 [facility] AT mg/dL 3:45 PM CDT [address] Comment: The given reference range is fo r the fasting state. Non-fasting reference range for glucose is 70 - 180 mg/dL. Hours Fasting 4 12/19/2020 3:45 PM CDT [facility] AT [address] Specimen Anatomical Collection Method / Collection Time Recei naisa Time (Source) Location / Volume Laterality Blood Venipuncture / 12/19/2020 3:23 12/19/2020 3:23 Unknown PM CDT PM CDT Narrative [place] [facility] [address] - 12/19/2020 3:4 5 PM CDT [...] Organization Address City/State/ZIP Code Phon e Number [place] [facility] [address] [place] [address] [place] [facility] [address] [place], [place] [address], [facility] [phone] (ABNORMAL) Prostatic Specific Antigen (Diagnostic F/U) (12/19/2020 3:23 PM CDT) P athologist Signature Prostatic 6.6 (H) 0.0 - 4.0 12/19/2020 [place] Specific ng/mL 8:54 PM CDT HOSPITAL LAB [...] [facility] [address] [place] [address] documented in this encounter Visit Diagnoses Diagnosis Elevated BP without diagnosis of hyperte nsion Urinary problem Other urinary problems documented in this encounter Care Teams Shuttler Car Relationship Specialty Start Date End Date Placido Ott MD PCP - General Internal Medicine 10/26/17 10/17/21 [address] [place] [address] documented as of this encounter
--- OUTSIDE RECORDS SUMMARY | 2022-04-08 12:09 | XMS_ITS | Encounter Summary ---
:1935 Author Organization [employer] Address [address], [place] [address] Care Team Providers Name Role Phone Placido Ott MD Primary Care Provider Encounter Details Date Type Department Care Team Description 10/08/[address] Oph, Drive-Up Cont act with [place] [address] [place] covid-19 [place] [phone] Social History Tobacco Use Types Packs/Day Years [...] covid-19 documented in this encounter Care Teams Mill Worker Relationship Specialty Start Date End Date Placido Ott MD PCP - General Internal Medicine 10/26/17 10/17/21 [address] [place] [address] documented as of this encounter
--- OUTSIDE RECORDS SUMMARY | 2022-04-08 12:09 | XMS_ITS | Encounter Summary ---
:1935 Author Organization [employer] Address [address], [place] [address] Care Team Providers Name Role Phone Placido Ott MD Primary Care Provider Encounter Details Date Type Department Care Team Description 08/06/2020 Immunization [facility] Clint Dave Encou nter for COVID Vaccine administration of Program [address] vaccine (Primary Dx) [address] [place], [place] [address] [place] [address] [phone] Social History Tobacco Use Types Packs/Day Years [...] documented in this encounter Care Teams Manager Leasing Relationship Specialty Start Date End Date Placido Ott MD PCP - General Internal Medicine 10/26/17 10/17/21 [address] [place] [facility] [place] [address] documented as of this encounter
--- OUTSIDE RECORDS SUMMARY | 2022-04-08 12:09 | XMS_ITS | Encounter Summary ---
:[address] [facility] [facility] Address [address] [address] Care Team Providers Name Role Phone Placido Ott MD Primary Care Provider Reason for Visit Reason Comments BLOOD PRESSURE CHECK Consult/Transfer Care (Routine) - Closed Specialty Diagnoses / Procedures Referred By Contact Refer red To Contact Diagnoses Elevated BP without diagnosis of hypertension Tesfaye Mukherjee MD [address] [place] [address] Referral ID Status Reason Start Date Expiration Date Visits Requ ested Visits Authorized [id number] Closed 12/19/2020 03/20/2022 1 1 Encounter Details Date Type Department Care Team Description 12/28/2020 Nursing Visit [facility] Nurse, Cc Jovan melissa for [facility], RN hypertension (Primary [address] Dx) [place], [place] [address] [address] [place], [place] [phone] [address] Social History Tobacco Use Types Packs/Day Years [...] Primary documented in this encounter Care Teams Research Scholar Relationship Specialty Start Date End Date Placido Ott MD PCP - General Internal Medicine 10/26/17 10/17/21 [address] [place] [address] documented as of this encounter
--- OUTSIDE RECORDS SUMMARY | 2022-04-08 12:09 | XMS_ITS | Encounter Summary ---
:1935 Author Organization [facility] Address [address], [place] [address] Care Team Providers Name Role Phone Placido Ott MD Primary Care Provider Reason for Visit Reason Comments DIARRHEA x 1 week, covid exposure Encounter Details Date Type Department Care Team Description 10/10/2020 Office Visit [facility] Tesfaye Mukherjee Internal E, (Primary Dx) Medicine [address] [place] [place] [address] [phone] Social History Tobacco Use Types Packs/Day Years [...] Body Mass Index 34.91 06/29/2020 11:32 AM CLINICAL NURSE REVIEWER documented in this encounter Patient Instructions Patient InstructionsTesfaye Mukherjee MD - 10/10/2020 1:30 PM CDT Images from the original note were not included. Username: [email or web address] ? Password: [email or web address] Gastroenteritis: Care Instructions Your Care Instructions Gastroenteritis [...] can you learn more? 1. Go to [email or web address]. 2. Enter N142 in the search box. Current as of: March 07, 2020?Content Version: 12.8 ?? [employer] Care instructions adapted under license by your healthcare professional. If you have questions abouta medical condition or this instruction, always ask your healthcare professional. [employer] disclaims any warranty or liability for your [...] colitis documented in this encounter Care Teams Cyber Software Engineer Relationship Specialty Start Date End Date Placido Ott MD PCP - General Internal Medicine 10/26/17 10/17/21 [address] [place] [address] documented as of this encounter
--- OUTSIDE RECORDS SUMMARY | 2022-04-08 12:09 | XMS_ITS | Encounter Summary ---
:1935 Author Organization [employer] Address [address] [address] Care Team Providers Name Role Phone Placido Ott MD Primary Care Provider Encounter Details Date Type Department Care Team Description 12/29/2020 Office Visit [facility] O[facility], Drive-Up Pre-op evaluation [address] [place] [address] Social History Tobacco Use Types [...] Novel Coronavirus (COVID-19) (12/29/2020 11:18 AM CDT) [employer] Method Time Signature COVID-19 Not Not 12/30/2020 [facility] Interpretation Detected Detected 6:08 AM CENTRAL LAB CDT Source Nares, left 12/30/2020 [facility] and right 6:08 AM CENTRAL LAB CDT Specimen Anatomical Collection Method Collection Time Receive d Time (Source) Location / / Volume Laterality Swab (Source Non-blood 12/29/2020 11:18 12/29/2020 Required) Collection / AM CDT 11:18 AM CDT Unknown Narrative [facility] - 12/30/2020 6:08 AM CDT Test performed by Sectionizer Mediated Amplification. TMA has been shown to be equivalent to commercial real-time PCR t ests. This test has been authorized by the FDA under an Emergency Use Authorization (EUA) for use by authorized laboratories. Douglas Mae MD LAB_1 Performing Organization Address City/State/ZIP Code Phon e Number [facility] [address] [address] documented in this encounter Visit Diagnoses Diagnosis Pre-op evaluation Preoperative examination, unspecified documented in this encounter Care Teams Modern Languages Professor Relationship Specialty Start Date End Date Placido Ott MD PCP - General Internal Medicine 10/26/17 10/17/21 [address] [place] [address] documented as of this encounter
--- OUTSIDE RECORDS SUMMARY | 2022-04-08 12:09 | XMS_ITS | Encounter Summary ---
:1935 Author Organization [email or web address] Address [address] [address] Care Team Providers Name Role Phone Placido Ott MD Primary Care Provider Reason for Visit Reason Comments [facility]OSPITAL Encounter Details Date Type Department Care Team Description 01/04/2021 Telephone Med Surg Pat Saini, [facility] [address] [place] [address]. [place] [address] [place] [address] [place], [place] [address] Social History Tobacco Use [...] on filedocumented in this encounter Care Teams Dimension Warehouse Supervisor Relationship Specialty Start Date End Date Placido Ott MD PCP - General Internal Medicine 10/26/17 10/17/21 [address] [place] [address] documented as of this encounter
--- OUTSIDE RECORDS SUMMARY | 2022-04-08 12:09 | XMS_ITS | Encounter Summary ---
:1935 Author Organization [employer] Address [address], [place] [address] Care Team Providers Name Role Phone Placido Ott MD Primary Care Provider Reason for Visit (Routine) - Incomplete Specialty Diagnoses / Procedures Referred By Contact Refer red To Contact Procedures Douglas Mae MD XR C-Arm 2-2.[address] [place] [address] XR C-Arm 1-1.5 Hours [place], [place] [address] Referral ID Status Reason Start Date Expiration Date Visits V isits Requested Authorized [id number] Incomplete 12/31/2020 04/01/2022 1 1 Encounter Details Date Type Department Care Team Description 12/31/2020 Ancillary Procedure [facility] Kamran Mae Imaging MD [address] [place] [address]. [address] [place] [address] [place] [address] [phone] (Wo rk) Social History Tobacco Use Types [...] 10:40 AM CDT Fluoroscopy provided by a radiology manager. Exact fluoroscopy time is documented in end of exam information in EPIC Douglas Mae MD RAD GD documented in this encounter Visit Diagnoses Not on filedocumented in this encounter Care Teams Front Office Assistant Relationship Specialty Start Date End Date Placido Ott MD PCP - General Internal Medicine 10/26/17 10/17/21 [address] [place] [address] documented as of this encounter
--- OUTSIDE RECORDS SUMMARY | 2022-04-08 12:09 | XMS_ITS | Encounter Summary ---
:1935 Author Organization [employer] Address [address] [place] [address] Care Team Providers Name Role Phone Placido Ott MD Primary Care Provider Encounter Details Date Type Department Care Team Description 01/04/2021 Home Care Visit [facility] Gael John, PT INITIAL SC PT EVALUATION [address] [facility] [address] [place] [address] [phone] (Wo rk) Social History Tobacco Use Types [...] PT Gael hernandez then Cecil, EDVIN Rogel BOOKS SALESPERSON: Bayron PRIMARY PHYSICIAN: Dr. Ott REASON FOR [...] bed transfer. GAIT: 4WW needed with ambulation. King Maker recommended new walker as current R brake [...] intervention kenyetta in this vis it Disciplines: Detention, Physical Therapy, Occupational Therapy, Speech Language Pathology, Medical Social Work, Physical Therapy Wound Care Best Practice - Risk for 01/03/2021 Active 1 goal linked to 1 g oal Risk for Hospitalization scheduled/docume int ervention Hospitalization nted scheduled/docum en Disciplines: intervention kenyetta in this vis it Detention, Physical Therapy, Occupational Therapy, Speech Language Pathology, Medical Social Work, Physical Therapy Wound Care Best Practice - Vulnerable Adult or 01/03/2021 Active 1 goal link ed to 1 goal Vulnerable Adult Minor scheduled/docume in tervention or Minor nted scheduled/docum en Disciplines: intervention kenyetta in this vis it Detention, Physical Therapy, Occupational Therapy, Speech Language Pathology, Home Health Aide, Medical Social Work, Physical Therapy Wound Care Best Practice - Pain Assessment and 01/03/2021 Active 1 goal link ed to 2 goal Pain Assessment Management scheduled/docume int erventions and Management nted scheduled/docum en Disciplines: intervention kenyetta in this vis it Detention, Physical Therapy, Occupational Therapy, Speech Language Pathology, Medical Social Work, Physical Therapy Wound Care Best Practice - Vital Signs 01/03/2021 Active 1 goal linked to 1 goal Vital Signs - Parameters scheduled/docume inter vention Parameters nted scheduled/docum en Disciplines: intervention kenyetta in this vis it Detention, Physical Therapy, Occupational Therapy, Speech Language Pathology, Medical Social Work, Candle Molder, Physical Therapy Wound Care PT Transfer Become [...] on when and how to call RN energy control officer 05/01, MD or 911 if needed. [...] 4WW. documented in this encounter Care Teams Crate Maker Relationship Specialty Start Date End Date Placido Ott MD PCP - General Internal Medicine 10/26/17 10/17/[address] [place] [address] documented as of this encounter
--- OUTSIDE RECORDS SUMMARY | 2022-04-08 12:09 | XMS_ITS | Encounter Summary ---
:1935 Author Organization [employer] Address [address], [place] [address] Care Team Providers Name Role Phone Placido Ott MD Primary Care Provider Encounter Details Date Type Department Care Team Description 10/10/2020 Office Visit [facility], Drive-Up Spec ial screening Up examination for viral [address] disease (Primary Dx) [place] [phone] Social History Tobacco Use Types Packs/Day Years [...] choose patient type (10/10/2020 11:10 AM CDT) [facility] Method Time Signature COVID-19 Not Not 10/11/2020 [facility] Interpretation Detected Detected 12:36 AM [facility]ENTRAL LAB CDT Specimen Anatomical Collection Method Collection Time Receive d Time (Source) Location / / Volume Laterality Swab (Source Non-blood 10/10/2020 11:10 10/10/2020 3:42 Required) Collection / AM CDT PM CDT Unknown Narrative [facility] - 10/11/2020 12:36 AM CDT Test performed by Bottom Hoop Driver Mediated Amplification. TMA has been shown to be equivalent to commercial real-time PCR t ests. This test has been authorized by the FDA under an Emergency Use Authorization (EUA) for use by authorized laboratories. Placido Ott MD LAB_1 Performing Organization Address City/State/[facility] Code Phon e Number [facility] [address] [address] documented in this encounter Visit Diagnoses Diagnosis Special screening examination for viral disease - Primary Special screening examination for unspec ified viral disease documented in this encounter Care Teams Environmental Services Supervisor Relationship Specialty Start Date End Date Placido Ott MD PCP - General Internal Medicine 10/26/17 10/17/21 [address] [place] [address] documented as of this encounter
--- OUTSIDE RECORDS SUMMARY | 2022-04-08 12:09 | XMS_ITS | Encounter Summary ---
:1935 Author Organization [employer] Address [address] [address] Care Team Providers Name Role Phone Placido Ott MD Primary Care Provider Encounter Details Date Type Department Care Team Description 12/31/2020 Anesthesia Event LV Operating Room Oskar Cuadra MD [address] [place] [address] [place] [address] [phone] (Wo rk) Anesthesia Record Procedure Summary Procedure [...] 1036 by Back; Lower; 01/01/21; Keyana Torrez, Abhya vega, Yissel Canela, 1036 RN RN Drain [...] Cuadra MD - 12/31/2020 11:45 AM CDT [facility] Anesthesia Post-op Note Patient: Zaid Rutledge [...] Cuadra MD - 12/31/2020 8:29 AM CDT [facility] Anesthesia Pre-op Evaluation Procedure: Procedure(s): Bilateral L3-4 Lateral Recess Decompression via Right sided approach - Wound Class: 1 CLEAN HPI: 85 y.o. old male with Back pain NPO Status: Last Fluid Intake Time: 2199 Last Fluid Intake Date: 12/30/20 Last Food Intake Date: 12/30/20 Last Food Intake Time: 1899 Allergies Allergen Reactions ??? Citrullus Vulgaris Anaphylaxis ??? Excedrin Extra Strength [Lqppwvu-Kjvxiyvthfiin-Uevbtuov] Anaphylaxis ? ? Molds & Smuts Breathing [...] QT 418 ms QTc 454 ms P [place] -6 degrees R [place] -9 degrees T [place] 0 degrees Physical Exam: BP 139/70 Pulse [...] 1055 documented in this encounter Care Teams Third Rigger Relationship Specialty Start Date End Date Placido Ott MD PCP - General Internal Medicine 10/26/17 10/17/21 [address] [place] [address] documented as of this encounter
--- OUTSIDE RECORDS SUMMARY | 2022-04-08 12:09 | XMS_ITS | Encounter Summary ---
:1935 Author Organization [employer] Address [address] [place] [address] Care Team Providers Name Role Phone Placido Ott MD Primary Care Provider Encounter Details Date Type Department Care Team Description 10/08/2020 Notes/Orders [facility] Placido Ott Con tact with and Sue Spence MD (suspected) exposure [address] to covid-19 [place] [address] [address] [phone] [place], [place] [id number] Social History Tobacco Use Types Packs/Day Years [...] covid-19 documented in this encounter Care Teams Geothermal System Installer Relationship Specialty Start Date End Date Placido Ott MD PCP - General Internal Medicine 10/26/17 10/17/21 [address] [place] [address] documented as of this encounter
--- OUTSIDE RECORDS SUMMARY | 2022-04-08 12:09 | XMS_ITS | Encounter Summary ---
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 If you have not been contacted, please call [phone] to s chedule your appointment. 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 Micaela Sanchez, REINFORCING STEEL PLACER, PLASTIC CABLEMAKING MACHINE OPERATOR [address] [place] [address] Referral ID Status Reason Start Date Expiration Date Visits V isits Requested Authorized [id number] Incomplete 01/01/2021 06/30/2021 1 1 (Routine) - Incomplete Specialty Diagnoses / Procedures Referred By Contact Refer red To Contact Procedures Lex Mae MD XR C-Arm 2-2.[address] [place] [address] XR C-Arm 1-1.5 Hours [place], [place] [address] Referral ID Status Reason Start Date Expiration Date Visits V isits Requested Authorized [id number] Incomplete 12/31/2020 04/01/2022 1 1 Consult/Transfer Care (Routine) - Closed Specialty Diagnoses / Procedures Referred By Contact Refer red To Contact Lex Mae MD [address] [place] [address] Referral ID Status Reason Start Date Expiration Date Visits Requ ested Visits Authorized [id number] Closed 12/31/2020 04/01/2022 1 1 Scheduling Instructions Your provider has recommended an appoint ment with a [facility] Specialist. You may call [phone] to schedule your appointment. We suggest you call your health insurance company about your coverage and benefits for this appointment. Encounter Details Date Type Department Care Team Description 12/31/2020 - Hospital Encounter LV Med Surg Lex Mae Bilateral stenosis of latera l recess of lumbar spine (Primary Dx); 01/01/2021 [facility] Davon Lira MD Pain [address]. [address] [place] [address] [address] [address] [place], [place] [phone] Social History Tobacco Use Types Packs/Day Years [...] in this encounter Discharge Summaries Micaela Sanchez, REINFORCING STEEL PLACER, PLASTIC CABLEMAKING MACHINE OPERATOR - 01/01/2021 9:10 AM CDT [facility] Discharge Summary: Spine Admit Date: [...] CNP / Lex Mae MD PHONE NUMBER: [phone] For information about patient referrals and other discharge orders, please see Discharge Instructions or the Other Orders tab in Chart Review. --End of Report-- documented in this encounter Discharge Instructions Discharge InstructionsPat Saini RN - 01/01/2021 6:37 AM CDT Contact Information: [facility] [phone] [facility] [phone] or [phone] If you have had an orthopedic surgery please contact [facility] directly, both during and after clinic hours, at [phone]. Emergency & Urgently Needed Care: For emergencies call 911 and/or get medical help right away. If you are a [facility] member and have medical needs after clinic hours you may call the CareLineat [phone] or . Information given on: Treatment, diagnosis, [...] with your prescription from pharmacy or on xhvh-qhb-ozegdwq medication packaging. Keep a journal/record of when you take your pain medications Do not take on an empty stomach; take with a meal or a small snack Take an ggiw-qol-zrwynpg stool softener while taking narcotics (ex: Senna, Miralax, Colace) as narcotics cause constipation Take pain pill(s) before pain has become uncomfortable - it takes 30-45 minutes for analgesic effect If you are prescribed narcotic pain medications (Oxycodone, [place], Percocet, etc) then you should try to [...] Oxycodone (Roxicodone) Oxycodone-Acetaminophen (Percocet) Hydromorphone (Dilaudid) Hydrocodone-Acetaminophen ([place], Vicodin) These medications are opioids. Prescription opioids [...] not need the opioid pain medication anymore. [place] the opioid pain medication for severepain only. [...] home health clinician.] fluticasone (AKA Place 1 Winn into 0 08/03/2013 FLONASE) 50 MCG/ACT both [...] by a home hyperlipidemia type health clinician.] ([facility]) sennosides-docusate [The details of the 20 Tablet 0 021 12/11/2021 sodium (SENOKOT S) medication are not 8.6-50 MG per available because tabletIndications: there are pending Constipation changes by a home health clinician.] documented as of this encounter Progress Notes Micaela Sanchez R, REINFORCING STEEL PLACER, PLASTIC CABLEMAKING MACHINE OPERATOR - 01/01/2021 9:10 AM CDT Orthopaedics Progress [...] rehabilitation Anticoagulation protocol: ASA 325 mg daily DELINQUENT TAX COLLECTOR ASSISTANT starting 72 hrs post drain removal Pain medications: Oxycodone and Tylenol--pt confirms he takes Tylenol daily and is not allergic. Weight bearing status: WBAT, no lifting greater than 10 lbs Disposition: Home today Report completed by: Micaela Sanchez APRN, CNP Date: 01/01/2021 Time: 6:12 PM documented in this encounter H&P Notes Oskar Cuadra MD - 12/31/2020 8:15 AM CDT [facility] Interval History and Physical Note The [...] approach on 12/31/[address] Mae at [place]. Pertinent history: Chronic hx of low back [...] Provider Last Rate Last Admin ??? cyanocobalamin ([id number]) injection 1,000 mcg 1,000 mcg Intramuscular Other (See Comments) Placido Ott MD 1,000 mcg at 04/28/18 1513 Allergies: Citrullus vulgaris, Excedrin extra strength [quewphm-rnorhswrducpc-pkhwxwza], Molds &smuts, Peanut (diagnostic), Acetaminophen-caffeine, Banana, and [...] was found Confirmed by MD SUJATHA, ANDRY ([id number]) on 12/19/2020 3:58:55 PM Assessment and Plan: [...] 12-Lead Routine (Lab perform) Hypertension Follow Up ([id number]) 4. 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 PROCEDURE PERFORMED: 1. Right L3 hemilaminotomy with right L3-4 partial medial facetectomy. 2. Left L3-4 partial medial facetectomy and decompression of the central canal and subarticular zone. 3. Use of operative microscopy. HEEL LIFT GOUGER: Mahin Dimas PA-C. Please note this procedure technically required an assistant reading teacher for the safety of the patient. Mr. [...] of the case. LEX MAE MD CMD/AQS /[id number] documented in this encounter Plan of Treatment Scheduled Referrals Name Type Priority Associated Diagnoses Order S chedule Spine-Surgical Referral Routine ONCE for 1 Oc currences Consult-Adults starting 12/13 until 12/31/2020 Bemtu-Sejcorml-Gnb Referral Routine Bilateral stenosis of Ordered: 01/01/2021 [...] Lex Mae MD LAB_1 Performing Organization Address [facility]/ZIP Code Phon e Number [facility] [address] [place] [address] [phone] HEMOGLOBIN, BLOOD (12/31/2020 12:28 PM CDT) athologist Signature Hemoglobin 14.7 13.5 - 17.5 12/31/2020 [facility] g/dL 12:32 PM CDT [facility] Specimen Anatomical Collection Method / Collection Time Recei anisa Time (Source) Location / Volume Laterality Blood Venipuncture / 12/31/2020 12:28 1 Unknown PM CDT 12:29 PM CDT Lex Mae MD LAB_1 Performing Organization Address City/[facility]/ZIP Code [facility] e Number [facility] [address] [place] [address] [phone] XR C-Arm 2-2.5 Hours (12/31/2020 10:39 AM CDT) Anatomical Region Laterality Modality X-Ray Angiography Specimen (Source) Anatomical Location Collection Method / Collectio n Time Received Time / Laterality Volume Narrative 12/31/2020 10:40 AM CDT Fluoroscopy provided by a chief technologist. Exact fluoroscopy time is documented in end of exam information in EPIC Lex Mae MD RAD GD HEMOGRAM/PLTS (12/31/2020 8:10 AM CDT) athologist Signature WBC 6.7 3.5 - 10.5 12/31/2020 [facility] x10(9)/L 8:20 AM CDT [facility]OS[facility]ITAL [facility] RBC 4.64 4.32 - 12/31/2020 [facility] 5.72 8:20 AM CDT [facility] x10(12)/L Hemoglobin 14.5 13.5 - 12/31/2020 [facility] 17.5 g/dL 8:20 AM CDT [facility]ITAL [facility] HCT 44.8 38.8 - 12/31/2020 [facility] 50.0 % 8:20 AM CDT [facility]ITAL [facility] MCV 96.6 80.0 - 12/31/2020 [facility] 100.0 fL 8:20 AM [facility] MCH 31.3 27.6 - 12/31/2020 [facility] 33.3 pg 8:20 AM [facility] MCHC 32.4 31.5 - 12/31/2020 [facility] 35.2 g/dL 8:20 AM [facility] RDW 14.0 11.9 - 12/31/2020 [facility] 15.5 % 8:20 AM [facility] Platelets 180 150 - 450 12/31/2020 [facility] x10(9)/L 8:20 AM [facility] Automated NRBC 0 <=0 /100 12/31/2020 [facility] WBC 8:20 AM [facility] Specimen Anatomical Collection Method / Collection Time Recei anisa Time (Source) Location / Volume Laterality Blood Venipuncture / 12/31/2020 8:10 12/31/2020 8:15 Unknown AM CDT AM CDT Mahin Dimas PA-C LAB_1 Performing Organization Address City/State/ZIP Code Phon e Number [facility] [address] [place] [address] documented in this encounter Visit Diagnoses Diagnosis 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 - Primary Pain Generalized pain Plan of Care - Yissel Cosby RN - 01/01/2021 12:11 PM CDT [facility] Discharge Note - Nursing Admission Date/Time: [...] and stored: Yes Plan of Care - nAusha Horn LSW - 01/01/2021 10:43 AM CDT [facility] Care Management Discharge Note Discharge Information: Expected Discharge Date: 01/01/21 Expected Discharge Time: 1100 Patient to be Discharged to: Home [facility]pc Care: [facility] [phone]/ Date Transport Needed: 01/01/21 Discharge transportation is ready to be arranged by [facility] no Discharge transport needs:: Family or friend will provide Patient/family is aware of potential transportation fte-lj-dxmkfi cost: yes Patient/family is aware of discharge plan?: yes Anticipated Discharge Disposition: 06: discharged or transferred to home under care of organized home health service organization Readmission Risk: Predictive Model Details No score data available for Risk of Unplanned Readmission Interventions: Additional Comments: Patient is aware of C coming to the home for RN, PT and OT. Patient's family is transporting patient home. 01/01/2021 10:44 AM [facility] Enrique Case Management/Referral Specialist [phone] Plan of Care - Yesenia Barrera OTR/[place] - 01/01/2021 9:27 AM CDT [facility] Acute Occupational Therapy Evaluation Assessment: 85 [...] I do my self cath by myself. RN RECRUITMENT and RN collaboration. Orders and Chart reviewed Yes Plan of Care - Eric Corral RN - 01/01/2021 2:11 AM CDT [facility] Plan of Care Note (Nursing) Assessment: Patient is oriented x4, OMAHA. Pain has been a 6/10 and has been controlled with Oxycodone. Patient's activity this shift up to side of bed with A1, ambulated alatna x1. CMS is intact. Dressing is intactwith [...] Jasso RN - 12/31/2020 9:08 PM CDT [facility] Plan of Care Note (Nursing) Assessment: [...] Progressing Goal: Discharge Needs Assessment Outcome: Progressing [facility] Plan of Care Note Assessment: Bilateral [...] Cosby RN - 12/31/2020 12:03 PM CDT [facility] Nursing Post-Op Note Admission Date/Time: 12/31/2020 [...] AM CDT 50 mcg 50-200 mcg, Intravenous, [id number], Pain, Single dose = 50 mcg, maximum total dose = 200 mcg, Starting on Thu12/31/20 at 1058, Until Thu12/31/20 at 1150, For 4 doses, PACU (only) fluticasone propionate (FLONASE) 50 MCG/ACT Given 12/14 8:06 AM CDT 2 Sprays nasal spray 2 Winn 2 Winn, Both Nostrils, BID, First dose (after last [...] Starting on Thu12/31/20 at 1150, Until T u01/01/21 at 1426, Give 2 mg for moderate [...] 1150, Until T 01/01/21 at 1426, Give 25 mg for [...] (S tarted - Provider: Pia Alvarado APRN, MANAGER STORY) 2 g, Intravenous, ONCE (NON-SCHEDULED), Starting on [...] 1 Drop 08 (Given - Provider: Adriana Mcleod RN) 1 [...] mg 1308 (G iven - Provider: George Benz RN)1908 (Given - Provider: Patria Jasso, EULOGIO) 08 (Given - Provider: Adriana Mcleod RN) 20 mg, Oral, BID, First dose on 12/31 at 1215, Until Discontinued, Post-op fluticasone propionate (FLONASE) 50 MCG/ACT nasal spray 2 Sp ray 1909 (Given - Provider: Patria Jasso, EULOGIO) 08 (Given - Provider: Adriana crowder RN) 2 Winn, Both Nostrils, BID, First dose (after last [...] HFA) 45-21 mcg/actuation inha ler 2 Puff 1908 (Given - Provider: Patria Jasso RN) 08 (Given - Provider: Adriana Mcleod, EULOGIO) 2 Puff, Inhalation, Q12H, First dose (af ter last reorder) on Thu12/31/20 at 2000, Until Discontinued montelukast (SINGULAIR) tablet 10 mg 190 9 (Given - Provider: Patria Jasso, RN) 10 mg, Oral, EVENING, First dose on Thu12/31/20 at 2000, Until D iscontinued multivitamin (THERAGRAN) tablet 1 Tablet 1307 (Given - Provider: George Benz, RN) 0806 (Given - Provider: Adriana crowder, RN) 1 Tablet, Oral, DAILY, First dose on Thu12/31/20 at 1215, Until Discontinued, Post-op pantoprazole DR (PROTONIX) tablet 40 mg 0552 (Given - Provider: Eric Corral, RN) 40 mg, Oral, DAILY AT 0600, First dose o n Thu01/01/21 at 0600, Until Discontinued, Tablet should be swallowed whole. Best when taken before a meal, but may be taken with food., Post-op polyethylene glycol (MIRALAX) oral powder 17 g 08 (Given - Provider: Adriana Mcleod, EULOGIO) 17 [...] 8.6-50 MG per tablet 1 Ta blet 0806 (Given - Provider: Adriana Mcleod, EULOGIO) 1 Tablet, Oral, BID, First dose on Thu at 0800, Until Discontinued, as laxative/stimulant, stool-softening agent, Post-op Continuous Medication Order 12/30/2020 12/31/2020 01/01/2021 lactated ringers infusion (CANCELED) 080 2 (Started - Provider: Karin Verdugo, EULOGIO)0836 (Continue from Pre-Op - Provider: LAZARO Ramirez)0855 [...] (SENSORCAINE) injection (CANCELED) 1030 (Given - Provider: Lxe Mae MD) ONCE PRN, Starting on Thu12/31/20 [...] mcg (CANCELED) 1107 (Given - Provider: Neida Sood, EULOGIO) 50-200 mcg, Intravenous, [id number], Pain, Single dose = 50 mcg, maximum [...] mg (CANCELED) 1108 (Given - Provider: Neida Sood, EULOGIO) 0.5-2 mg, Intravenous, Q10MIN PRN, Pain, To [...] at 1426, Post-op melatonin tablet 3 mg 221 (Given - Provider: Olson RN) 3 mg, [...] to closely monitor. - Hold all IV opioids/narcotics/UNDERCAR SPECIALIST/s until provider is notified., Post-op ondansetron (ZOFRAN) [...] 2) 1409 (Given - Provider: George Benz, RN)1819 (Given - Provider: Patria Jasso, RN)2216 (Given - Provider: Patria Jasso RN) [...]
Post-op documented in this encounter Care Teams Manager Terminal Relationship Specialty Start Date End Date Placido Ott MD PCP - General Internal Medicine 10/26/17 10/17/21 [address] [place] [address] documented as of this encounter
--- OUTSIDE RECORDS SUMMARY | 2022-04-08 12:09 | XMS_ITS | Encounter Summary ---
:1935 Author Organization [employer] Address [address], [place] [address] Care Team Providers Name Role Phone Placido Ott MD Primary Care Provider Encounter Details Date Type Department Care Team Description 12/31/2020 Surgery LV Operating Room Lex Mae, Bilateral L3-4 Lateral [address] [address] Clemencia Right sided approach [phone] [place], [place] [address] (Wo rk) Social History [...] in this encounter Discharge Summaries Micaela Sanchez, MANAGER THERAPY, LANDING SCALER - 01/01/2021 9:[address] [facility] Discharge Summary: Spine Admit Date: [...] CNP / Lex Mae MD PHONE NUMBER: [phone] For information about patient referrals and other discharge orders, please see Discharge Instructions or the Other Orders tab in Chart Review. --End of Report-- documented in this encounter Discharge Instructions Discharge InstructionsPat Saini RN - 01/01/2021 6:37 AM CDT Contact Information: [facility] [phone] [facility] [phone] or [phone] If you have had an orthopedic surgery please contact [facility] directly, both during and after clinic hours, at [phone]. Emergency & Urgently Needed Care: For emergencies call 911 and/or get medical help right away. If you are a [facility] member and have medical needs after clinic hours you may call the CareLineat [phone] or . Information given on: Treatment, diagnosis, [...] fit properly. Discharge Instr - Non RX MedsHebPat huang RN - 01/01/2021 6:38 AM CDT Some [...] with your prescription from pharmacy or on typu-igv-vfxrcaz medication packaging. Keep a journal/record of when you take your pain medications Do not take on an empty stomach; take with a meal or a small snack Take an gdue-vee-dvpcoui stool softener while taking narcotics (ex: Senna, Miralax, Colace) as narcotics cause constipation Take pain pill(s) before pain has become uncomfortable - it takes 30-45 minutes for analgesic effect If you are prescribed narcotic pain medications (Oxycodone, Windom, Percocet, etc) then you should try to [...] Oxycodone (Roxicodone) Oxycodone-Acetaminophen (Percocet) Hydromorphone (Dilaudid) Hydrocodone-Acetaminophen (Windom, Vicodin) These medications are opioids. Prescription opioids [...] not need the opioid pain medication anymore. [place] the opioid pain medication for severepain only. [...] home health clinician.] fluticasone (AKA Place 1 Plush into 0 08/03/2013 FLONASE) 50 MCG/ACT both [...] by a home hyperlipidemia type health clinician.] ([facility]) sennosides-docusate [The details of the 20 Tablet 0 021 12/11/2021 sodium (SENOKOT S) medication are not 8.6-50 MG per available because tabletIndications: there are pending Constipation changes by a home health clinician.] documented as of this encounter Progress Notes Micaela Sanchez, MANAGER THERAPY, LANDING SCALER - 01/01/2021 9:10 AM CDT Orthopaedics Progress [...] rehabilitation Anticoagulation protocol: ASA 325 mg daily 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 Weight bearing status: WBAT, no lifting greater than 10 lbs Disposition: Home today Report completed by: Micaela Sanchez APRN, CNP Date: 01/01/2021 Time: 6:12 PM documented in this encounter H&P Notes Oskar Cuadra MD - 12/31/2020 8:15 AM CDT [facility] Interval History and Physical Note The attached H&P has been reviewed. The patient was examined. No change observed. Source Note - Tesfaye Solares MD - 12/19/2020 2:30 PM CDT Pre-operative History and Physical Assessment Name: Zaid Rutledge : 1935 Primary physician: Placido Ott MD. Historical: Zaid Rutledge is a 85 y.o. old male is here for preoperative cardiac and risk evaluation. Patient is scheduled for Bilateral L3-4 Lateral Recess Decompression via Right sided approach on 12/31/[address] Mae at [place]. Pertinent history: Chronic hx of low back [...] Provider Last Rate Last Admin ??? cyanocobalamin (YZREJORJ86) injection 1,000 mcg 1,000 mcg Intramuscular Other (See Comments) Placido Ott MD 1,000 mcg at 04/28/18 1513 Allergies: Citrullus vulgaris, Excedrin extra strength [qjsuzyk-rhekfavqgakhw-blbfslof], Molds &smuts, Peanut (diagnostic), Acetaminophen-caffeine, Banana, and [...] was found Confirmed by MD SOLARES ANDREW ([id number]) on 12/19/2020 3:58:55 PM Assessment and Plan: Pre-op cardiac & risk evaluation: Patient is medically optimized for planned procedure. Cardiac risk for the planned procedure is INTERMEDIATE Cardiac risk factor assessment: heart disease history (MT, angina, CABG, coronary stent)? no History of [...] 12-Lead Routine (Lab perform) Hypertension Follow Up ([id number]) 4. 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 PROCEDURE PERFORMED: 1. Right L3 hemilaminotomy with right L3-4 partial medial facetectomy. 2. Left L3-4 partial medial facetectomy and decompression of the central canal and subarticular zone. 3. Use of operative microscopy. MAGAZINE GRINDER LOADER: Mahin Dimas PA-C. Please note this procedure technically required an dental office assistant for the safety of the patient. [...] we angled the operating table away from fl as well as the microscope and we [...] correct at the end of the case. MD BROCK ELAINE/MANDIE /[id number] documented in this encounter Plan of Treatment Scheduled Referrals Name Type Priority Associated Diagnoses Order S chedule Spine-Surgical Referral Routine ONCE for 1 Oc currences Consult-Adults starting 12/13 until 12/31/2020 Tcmes-Vojdncgz-Flk Referral Routine Bilateral stenosis of Ordered: 01/01/2021 [...] Signature HCT 45.2 38.8 - 50.0 12/31/2020 [place] % 12:32 PM CDT HOSPITAL LAB Specimen Anatomical Collection Method / Collection Time Recei anisa Time (Source) Location / Volume Laterality Blood Venipuncture / 12/31/2020 12:28 Unknown PM CDT 12:29 PM CDT Lex Mae MD LAB_1 Performing Organization Address City/State/ZIP Code Phon e Number [facility] [address] [place] [address] HEMOGLOBIN, BLOOD (12/31/2020 12:28 PM CDT) athologist Signature Hemoglobin 14.7 13.5 - 17.5 12/31/2020 [place] g/dL 12:32 PM CDT HOSPITAL LAB Specimen Anatomical Collection Method / Collection Time Recei anisa Time (Source) Location / Volume Laterality Blood Venipuncture / 12/31/2020 12:28 Unknown PM CDT 12:29 PM CDT Lex Mae MD LAB_1 Performing Organization Address City/State/ZIP Code Phon e Number [facility] [address] [place] [address] XR C-Arm 2-2.5 Hours (12/31/2020 10:39 AM CDT) Anatomical Region Laterality Modality X-Ray Angiography Specimen (Source) Anatomical Location Collection Method / Collectio n Time Received Time / Laterality Volume Narrative 12/31/2020 10:40 AM CDT Fluoroscopy provided by a radiology rn. Exact fluoroscopy time is documented in end of exam information in EPIC Lex Mae MD RAD GD HEMOGRAM/PLTS (12/31/2020 8:10 AM CDT) athologist Signature WBC 6.7 3.5 - 10.5 12/31/2020 [place] x10(9)/L 8:20 AM CDT HOSPITAL LAB RBC 4.64 4.32 - 12/31/2020 [place] 5.72 8:20 AM T HOSPITAL LAB x10(12)/L Hemoglobin 14.5 13.5 - 12/31/2020 [place] 17.5 g/dL 8:20 AM CDT HOS[facility]ITAL LAB HCT 44.8 38.8 - 12/31/2020 [place] 50.0 % 8:20 AM CDT HOS[facility]ITAL LAB MCV 96.6 80.0 - 12/31/2020 [place] 100.0 fL 8:20 AM CDT HOSPITAL LAB MCH 31.3 27.6 - 12/31/2020 [place] 33.3 pg 8:20 AM CDT HOSPITAL LAB MCHC 32.4 31.5 - 12/31/2020 [place] 35.2 g/dL 8:20 AM CDT HOSPITAL LAB RDW 14.0 11.9 - 12/31/2020 [place] 15.5 % 8:20 AM T HOSPITAL LAB Platelets 180 150 - 450 12/31/2020 [place] x10(9)/L 8:20 AM T [facility] Automated NRBC 0 <=0 /100 12/31/2020 [place] WBC 8:20 AM T HOSPITAL LAB Specimen Anatomical Collection Method / Collection Time Recei anisa Time (Source) Location / Volume Laterality Blood Venipuncture / 12/31/2020 8:10 12/31/2020 8:15 Unknown AM CDT AM CDT Mahin Dimas PA-C LAB_1 Performing Organization Address City/State/ZIP Code Phon e Number [facility] [address] [place] [address] documented in this encounter Visit Diagnoses Diagnosis 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 Discharge transport needs:: Family or friend will provide Patient/family is aware of potential transportation tmb-hc-sbdzoa cost: yes Patient/family is aware of discharge [...] home. 01/01/2021 10:44 AM LUCAS Enrique Case Management/Climate Change Analyst [phone] Plan of Care - Yesenia Barrera OTR/[place] - 01/01/2021 9:27 AM CDT [facility] Acute Occupational Therapy Evaluation Assessment: 85 [...] I do my self cath by myself. ELEPHANT TAMER and RN collaboration. Orders and Chart reviewed Yes Plan of Care - Eric Corral RN - 01/01/2021 2:11 AM CDT [facility] Plan of Care Note (Nursing) Assessment: Patient is oriented x4, CABAZON. Pain has been a 6/10 and has been controlled with Oxycodone. Patient's activity this shift up to side of bed with A1, ambulated shinnecock x1. CMS is intact. Dressing is intactwith [...] Jasso RN - 12/31/2020 9:08 PM CDT [facility] Plan of Care Note (Nursing) [...] Progressing Goal: Discharge Needs Assessment Outcome: Progressing [facility] Plan of Care Note Assessment: [...] Cosby RN - 12/31/2020 12:03 PM CDT [facility] Nursing Post-Op Note Admission Date/Time: 12/31/2020 [...] AM CDT 50 mcg 50-200 mcg, Intravenous, [id number], Pain, Single dose = 50 mcg, maximum total dose = 200 mcg, Starting on Thu12/31/20 at 1058, Until Thu12/31/20 at 1150, For 4 doses, PACU (only) fluticasone propionate (FLONASE) 50 MCG/ACT Given 12/14 8:06 AM CDT 2 Sprays nasal spray 2 Plush 2 Plush, Both Nostrils, BID, First dose (after last [...] 100 mg 130 8 (Given - Provider: Georeg Benz, EULOGIO) 0806 (Given - Provider: Adriana [...] (S tarted - Provider: Pia Alvarado APRN, ENERGY OPERATIONS VICE PRESIDENT) 2 g, Intravenous, ONCE (NON-SCHEDULED), Starting on [...] (COSOPT) 22.3-6.8 MG/ML ophthalmic solution 1 Drop 0806 (Given - Provider: Adriana Mcleod, EULOGIO) [...] EULOGIO) 0806 (Given - Provider: Adriana Mcleod, EULOGIO) 20 mg, Oral, BID, First dose on 12/31 at 1215, Until Discontinued, Post-op fluticasone propionate (FLONASE) 50 MCG/ACT nasal spray 2 Sp ray 1909 (Given - Provider: Patria Jasso RN) 0806 (Given - Provider: Adriana crowder RN) 2 Plush, Both Nostrils, BID, First dose (after last [...] mg 190 9 (Given - Provider: Patria Jasso RN) 10 mg, Oral, EVENING, First dose [...] Provider: Neida Sood RN) 50-200 mcg, Intravenous, [id number], Pain, Single dose = 50 mcg, maximum [...] Patria Jasso RN)2216 (See Alternative - Provider: Ptaria Jasso RN) 0131 (See Alternative - Provider: [...] to closely monitor. - Hold all IV opioids/narcotics/SUPERVISOR MACHINE WORKERS/s until provider is notified., Post-op ondansetron (ZOFRAN) [...]
Post-op documented in this encounter Care Teams Lens Engraver Relationship Specialty Start Date End Date Placido Ott MD PCP - General Internal Medicine 10/26/17 10/17/21 [address] [facility] [place] [address] documented as of this encounter
--- OUTSIDE RECORDS SUMMARY | 2022-04-08 12:09 | XMS_ITS | Encounter Summary ---
:1935 Author Organization [employer] Address [address], [place] [address] Care Team Providers Name Role Phone Placido Ott MD Primary Care Provider Encounter Details Date Type Department Care Team Description 11/28/2020 Notes/Orders LV Operating Room Douglas Mae Pre-op evaluation [address] Mccarthy MD (Primary Dx) [place] [address] [address] [facility] [phone] [place], [place] [id number] (Wo rk) Social History Tobacco Use Types [...] Novel Coronavirus (COVID-19) (12/29/2020 11:18 AM CDT) [facility] Method Time Signature COVID-19 Not Not 12/30/2020 [facility] Interpretation Detected Detected 6:08 AM CENTRAL LAB CDT Source Nares, left 12/30/2020 [facility] and right 6:08 AM CENTRAL LAB CDT Specimen Anatomical Collection Method Collection Time Receive d Time (Source) Location / / Volume Laterality Swab (Source Non-blood 12/29/2020 11:18 12/29/2020 Required) Collection / AM CDT 11:18 AM CDT Unknown Narrative [facility] C[facility] - 12/30/2020 6:08 AM CDT Test performed by Senior Medical Director Mediated Amplification. TMA has been shown to be equivalent to commercial real-time PCR t ests. This test has been authorized by the FDA under an Emergency Use Authorization (EUA) for use by authorized laboratories. Douglas Mae MD LAB_1 Performing Organization Address City/State/ZIP Code Phon e Number [facility] [address] [address] documented in this encounter Visit Diagnoses Diagnosis Pre-op evaluation - Primary Preoperative examination, unspecified documented in this encounter Care Teams Hall Worker Relationship Specialty Start Date End Date Placido Ott MD PCP - General Internal Medicine 10/26/17 10/17/[address] [place] [address] documented as of this encounter
--- OUTSIDE RECORDS SUMMARY | 2022-04-08 12:09 | XMS_ITS | Encounter Summary ---
:1935 Author Organization [employer] Address [address], [place] [address] Care Team Providers Name Role Phone Placido Ott MD Primary Care Provider Reason for Visit Reason Comments Surgery Scheduling Encounter Details Date Type Department Care Team Description 12/24/2020 Telephone Operating Room Sheila Rider RN Surgery Scheduling 7 [facility] [address] [place] [address] [place] [address] [phone] Social History Tobacco Use Types Packs/Day Years [...] Rider RN - 12/24/2020 1:45 PM CDT [facility] re: presurgery covid screen test for December 29. This office number and [facility]. documented in this encounter Plan of Treatment Not on filedocumented as of this encounter Visit Diagnoses Not on filedocumented in this encounter Care Teams Basketballs And Footballs Reverser Relationship Specialty Start Date End Date Placido Ott MD PCP - General Internal Medicine 10/26/17 10/17/21 [address] [place] [address] documented as of this encounter
--- OUTSIDE RECORDS SUMMARY | 2022-04-08 12:09 | XMS_ITS | Encounter Summary ---
:1935 Author Organization [facility] Address [address], [place] [address] Care Team Providers Name Role Phone Placido Ott MD Primary Care Provider Reason for Referral Consult/Transfer Care (Routine) - Closed Specialty Diagnoses / Procedures Referred By Contact Refer red To Contact Diagnoses Elevated BP without diagnosis of hypertension Andry Solares MD [address] [place] [address] Referral ID Status Reason Start Date Expiration Date Visits Requ ested Visits Authorized [id number] Closed 12/19/2020 03/20/2022 1 1 Scheduling Instructions Your provider has recommended an appoint ment with [facility]. You may call [phone] to schedule your appoi ntment. Reason for Visit Reason Comments PRE-OP EXAM Encounter Details Date Type Department Care Team Description 12/19/2020 Pre-Op Visit [facility] Andry Solares Pre -operative general physical examination (Primary Dx); [facility] MD Spinal stenosis of lumbar region with ne urogenic claudication; Medicine [address] Elevated BP without diagnosi s of hypertension; [address] Mild [place] [address] [phone] Social History Tobacco Use Types Packs/Day Years [...] Body Mass Index 35.36 06/29/2020 11:32 AM BRONZER documented in this encounter Patient Instructions Patient [...] approach on 12/31/[address] Mae at [place]. Pertinent history: Chronic hx of low back [...] Provider Last Rate Last Admin ??? cyanocobalamin ([id number]) injection 1,000 mcg 1,000 mcg Intramuscular Other (See Comments) Placido Ott MD 1,000 mcg at 04/28/18 1513 Allergies: Citrullus vulgaris, Excedrin extra strength [uyxbnxa-upxkdukiajtvn-bzvocavu], Molds &smuts, Peanut (diagnostic), Acetaminophen-caffeine, Banana, and [...] was found Confirmed by MD SUJATHA, ANDRY ([id number]) on 12/19/2020 3:58:55 PM Assessment and Plan: Pre-op cardiac & risk evaluation: Patient is medically optimized for planned procedure. Cardiac risk for the planned procedure is INTERMEDIATE Cardiac risk factor assessment: heart disease history ([place], angina, CABG, coronary stent)? no History of [...] 12-Lead Routine (Lab perform) Hypertension Follow Up ([id number]) 4. Mild persistent asthma without complication J45.30 well controlled, will continue current medications documented in this encounter Plan of Treatment Scheduled Referrals Name Type Priority Associated Diagnoses Order S chedule Hypertension Follow Up Referral Routine Elevated BP withou t Ordered: 12/19/2020 ([id number]) diagnosis of hypertension documented as of this encounter Results Ecg 12-Lead Routine - MUSE (12/19/2020 3:28 PM CDT) P athologist Signature Ventricular Rate 71 BPM [facility] Atrial Rate 71 BPM [facility] P-R Interval 146 ms [facility] QRS Duration 94 ms [facility] QT 418 ms [facility] QTc 454 ms [facility] P [place] -6 degrees [facility] R [place] -9 degrees [facility] T [place] 0 degrees [facility] Specimen (Source) Anatomical Collection Method Collection Time Re ceived Time Location / / Volume Laterality 12/19/2020 3:28 PM CDT Narrative [facility] - 12/19/2020 3:59 PM CDT Sinus rhythm Normal ECG When compared with ECG of 16-JAN-2016 17 :28, No significant change was found Confirmed by MD SOLARES ANDREW ([id number]) on 12/19/2020 3:58:55 PM Procedure Note Andry Solares MD - 12/19/2020Format ting of this note might be different from the original. Sinus rhythm Normal ECG When compared with ECG of 16-JAN-2016 17 :28, No significant change was found Confirmed by MD SOLARES ANDREW ([id number]) on 12/19/2020 3:58:55 PM Andry Solares MD EKG Performing Organization Address City/State/ZIP Code Phon e Number [facility] [address] [place] [address] Ecg 12-Lead Routine (Lab perform) (12/19/2020 3:23 PM CDT) P athologist Signature EKG Completed 12/19/2020 [place] AT 5:01 PM CDT [address] Specimen Anatomical Collection Method Collection Time Receive d Time (Source) Location / / Volume Laterality Other Specimen 12/19/2020 3:23 PM 021 3:23 Type CDT PM CDT Andry Solares MD LAB_1 Performing Organization Address City/State/ZIP Code Phon e Number [facility] [address] [place], [place] [address] [facility] [address] [place], [place] [address], [facility] [phone] (ABNORMAL) Basic Metabolic Panel (12/19/2020 3:23 PM [...] CREST Creatinine 1.27 (H) 0.73 - 12/19/2020 [facility] [facility] 1.18 mg/dL 3:45 PM CDT [address] GFR, Estimated 51 (L) >60 12/19/2020 [facility] mL/min/1.7 3:45 PM CDT [address] 3m2 Glucose 100 70 - 100 12/19/2020 [facility] mg/dL 3:45 PM CDT [address] Comment: The given reference range is fo r the fasting state. Non-fasting reference range for glucose is 70 - 180 mg/dL. Hours Fasting 4 12/19/2020 3:45 PM CDT [facility] [address] Specimen Anatomical Collection Method / Collection Time Recei anisa Time (Source) Location / Volume Laterality Blood Venipuncture / 12/19/2020 3:23 12/19/2020 3:23 Unknown PM CDT PM CDT Narrative [facility] [address] - 12/19/2020 3:4 5 [...] Code Phon e Number [facility] [address] [place], [place] [address] [facility] [address] [place], [place] [address], [facility] [phone] documented in this encounter Visit Diagnoses Diagnosis [...] problems documented in this encounter Care Teams Zinc Miner Blasting Relationship Specialty Start Date End Date Placido Ott MD PCP - General Internal Medicine 10/26/17 10/17/21 [address] [place] [address] documented as of this encounter
--- OUTSIDE RECORDS SUMMARY | 2022-04-08 12:09 | XMS_ITS | Encounter Summary ---
:1935 Author Organization [facility] Address [address] [address] Care Team Providers Name Role Phone Placido Ott MD Primary Care Provider Reason for Visit Reason Comments DIARRHEA Diarrhea Encounter Details Date Type Department Care Team Description 10/09/2020 Nurse Triage [facility] Placido Ott ARRHEA (Diarrhea ) [facility] T, Medicine [address] [place] [address] [phone] Social History Tobacco Use Types Packs/Day Years [...] of this encounter Nursing Notes Alicia Hollis L, RN - 10/09/2020 11:49 AM CDT Reason [...] fever, blood in stool) No, Protocols used: [id number] Yuki Molina - 10/09/2020 11:44 AM CDT Symptoms Describe your symptoms (if pain, include location): Diarrhea When did they start? 10/02/20 What have you tried at home (please specify medication name, if any)? No, This seems to happen after he has eaten Have you recently been seen for this? No [[facility]: Refer to Symptoms Indicating Need for Triage list to determine urgency level and next steps - if Urgent or Routine, schedule appointment within the appropriate timeframe.If patient wants to speak to an RN, please warm transfer/route to RN for further triage.] [[facility]: Add/verify patient preferred pharmacy is highlighted in blue in the Pharmacy Selection under Meds & Orders] [[facility]: If this call is after 3 p.m., communicate to patient: If we are not able to get back to you by the end of the day and your symptoms worsen, please contact the Careline [phone] OR at .] Is it okay to leave a detailed message on your voicemail? Yes I can transfer you to talk to a Triage Nurse or I am happy to get you scheduled with your primary child daycare worker or one of their partners for a [...] on filedocumented in this encounter Care Teams Post Production Assistant Relationship Specialty Start Date End Date Placido Ott MD PCP - General Internal Medicine 10/26/17 10/17/21 [address] [place] [address] documented as of this encounter
--- OUTSIDE RECORDS SUMMARY | 2022-04-08 12:09 | XMS_ITS | Encounter Summary ---
:1935 Author Organization [facility] Address [address] [address] Care Team Providers Name Role Phone Placido Ott MD Primary Care Provider Encounter Details Date Type Department Care Team Description 12/20/2020 Notes/Orders [facility] Waqas Rodney ostate cancer (HRC) [place] Edson Griffith MD (Primary Dx) [facility] [address] [place] [address] [place], [place] [phone] Social History Tobacco Use Types Packs/Day Years [...] Prostatic 7.7 (H) 0.0 - 4.0 02/13/2021 [place] Specific ng/mL 12:02 PM CDT [facility]OSPITAL LAB Antigen Specimen Anatomical Collection Method / Collection Time Recei anisa Time (Source) Location / Volume Laterality Blood Venipuncture / 02/13/2021 10:19 1 Unknown AM CDT 10:19 AM CDT Narrative [facility] - 02/13/2021 12:02 PM CDT The Carreon PSA Chemiluminescent immunoas say is used. Results obtained with different test methods or kits cannot be used inte rchangeably. Waqas Rodney MD LAB_1 Performing Organization Address City/State/ZIP Code Phon e Number [facility] [address] [place] [address] documented in this encounter Visit Diagnoses Diagnosis Prostate cancer (HRC) - Primary Malignant neoplasm of prostate documented in this encounter Care Teams [employer] Market Insights Relationship Specialty Start Date End Date Placido Ott MD PCP - General Internal Medicine 10/26/17 10/17/21 [address] [place] [address] documented as of this encounter
--- OUTSIDE RECORDS SUMMARY | 2022-04-08 12:10 | XMS_ITS | Encounter Summary ---
:1935 Author Organization [facility] Address [address], [place] [address] Care Team Providers Name Role Phone Shelly Ott MD Primary Care Provider Reason for Visit Reason Comments Refill omeprazole (PRILOSEC) 20 MG capsule [Pharmacy Med Name: OMEPRAZOLE 20MG CAPSULES] Encounter Details Date Type Department Care Team Description 05/14/2020 Refill [facility] Shelly Ott Re fill (omeprazole Hemphilles Spence MD (PRILOSEC) 20 MG Medicine [address] capsule [Pharmacy Med [address] [place] Name: OMEPRAZOLE 20MG [place] [address] [place], [place] CAPSULES]) [phone] Social History Tobacco Use Types Packs/Day Years [...] patient Patient is due for: Office Visit [Dust Handler: We recently received a refill request for one of your medications. In order to ensure your medication is safe and effective, your clinician needs to see you at least yearly for an office visit. May I help you schedule that office visit?] Patient scheduled appointment on: 05/21 Do you have enough medication to last until your appointment? Yes [Dust Handler: Sounds great! Your clinician will address this medication request with you at your next visit.] Jimena Newman Remove pended medication and Sign Visit or if unable: Please route to: Refill supervisor slitting and shipping Adeliade Guevara RN - 05/14/2020 10:30 AM CST Further Assistance Needed on Refill from Pickle Pumper Please call patient to schedule a visit and document using .AMITA Last qualifying visit: 04/20/2019 (with SHELLY OTT) Access Team/Clinic Assist: After attempting to schedule patient: Close encounter. Refill has already been processed. Medication(s) approved by RN per Refill Protocol/Standing Order Adelaide Rehman RN 05/14/2020, 10:30 AM TIVE ARTS MUSIC THERAPIST Interface, Out Surescripts Prov Query - 05/14/2020 4:01 AM [...] hour before a meal (unchanged) Powered by [employer], Reference: [id number], 05/14/2020 4:01:19 AM CREATIVE ARTS MUSIC THERAPIST, Pool: SMG REFILL RN ([id number]) TIVE ARTS MUSIC THERAPIST documented in this encounter Plan of Treatment Not on filedocumented as of this encounter Visit Diagnoses Not on filedocumented in this encounter Care Teams Strategic Debriefing Officer Relationship Specialty Start Date End Date Shelly Ott MD PCP - General Internal Medicine 10/26/17 10/17/21 [address] [place] [address] documented as of this encounter
--- OUTSIDE RECORDS SUMMARY | 2022-04-08 12:10 | XMS_ITS | Encounter Summary ---
:1935 Author Organization [facility] Address [address], [place] [address] Care Team Providers Name Role Phone Placido Ott MD Primary Care Provider Encounter Details Date Type Department Care Team Description 08/08/2019 Telephone [facility] Waqas Rodney MD [facility] [address] [place] [address] [address] [place], [place] [id number] [phone] Social History Tobacco Use Types Packs/Day Years [...] Rodney MD on 08/07/2019 at 11:53 AM RN CLINICAL DOCUMENTATION Urine clear please inform. Corie verbalizes understanding and she will notify patient. Deepika Arellano, EULOGIO 08/08/2019, 1:16 PM CLINICAL DOCUMENTATION documented in this encounter Plan of Treatment Not on filedocumented as of this encounter Visit Diagnoses Not on filedocumented in this encounter Care Teams Poultry Picker Relationship Specialty Start Date End Date Placido Ott MD PCP - General Internal Medicine 10/26/17 10/17/21 [address] [place] [address] documented as of this encounter
--- OUTSIDE RECORDS SUMMARY | 2022-04-08 12:10 | XMS_ITS | Encounter Summary ---
:1935 Author Organization [facility] Address [address], [place] [address] Care Team Providers Name Role Phone Shelly Ott MD Primary Care Provider Reason for Visit Reason Comments Medication Questions Encounter Details Date Type Department Care Team Description 06/14/2020 Telephone [facility] Shelly Ott Fl dication Questions Beatriz Spence MD Medicine [address] [place] [address] [facility] [place] [phone] Social History Tobacco Use Types Packs/Day Years [...] Order Shauna Dawson RN 06/14/2020, 1:37 PM LOPE STAMPING MACHINE OPERATOR Interface, Out Sharewave Prov Query - 06/14/2020 1:24 PM CST allopurinol [...] every day (changed but equivalent) Powered by [employer], Reference: [id number], 06/14/2020 1:24:41 PM ENVELOPE STAMPING MACHINE OPERATOR, Pool: PETER REFILL EULOGIO ([id number]) LOPE STAMPING MACHINE OPERATOR Leann Keenan - 06/14/2020 12:52 PM CST [...] message? Yes Leann Keenan ....................................06/14/2020 12:52 PM LOPE STAMPING MACHINE OPERATOR documented in this encounter Plan of Treatment Not on filedocumented as of this encounter Visit Diagnoses Not on filedocumented in this encounter Care Teams Architecture Professor Relationship Specialty Start Date End Date Shelly Ott MD PCP - General Internal Medicine 10/26/17 10/17/21 [address] [place] [address] documented as of this encounter
--- OUTSIDE RECORDS SUMMARY | 2022-04-08 12:10 | XMS_ITS | Encounter Summary ---
:1935 Author Organization [facility] Address [address] [address] Care Team Providers Name Role Phone Placido Ott MD Primary Care Provider Reason for Visit Reason Comments SCROTAL PAIN Encounter Details Date Type Department Care Team Description 07/07/2019 Office Visit [facility] Waqas Rodney [place] (Primary [place] Edson Griffith MD Dx) [facility] [address] [place] [address] [place], [place] [phone] Social History Tobacco Use Types Packs/Day Years [...] Comments Blood Pressure 133/79 07/07/2019 12:15 PM SURGICAL GARMENT ASSEMBLY SUPERVISOR Pulse 76 07/07/2019 12:15 PM SURGICAL GARMENT ASSEMBLY SUPERVISOR Temperature - - Respiratory Rate - - [...] today keep it under 10 is goal. ICAL GARMENT ASSEMBLY SUPERVISOR documented in this encounter Progress Notes Waqas [...] ?? S: mild intermittent orchalgia Going to [place] soon and wants to get checked. No [...] Please contact me if clarification is needed.) ICAL GARMENT ASSEMBLY SUPERVISOR Waqas Rodney MD - 07/07/2019 12:00 PM CST If not on antibioitics needs to start duricef 500BID x 10 days now ICAL GARMENT ASSEMBLY SUPERVISOR Abi Lagunas RN - 07/07/2019 12:00 PM CST Left detailed message for patient informing him of message below from Dr. Rodney. Abi Lagunas RN 07/08/2019, 8:30 AM ICAL GARMENT ASSEMBLY SUPERVISOR Waqas Rodney MD - 07/07/2019 12:00 PM CST Duricef will cover this ICAL GARMENT ASSEMBLY SUPERVISOR documented in this encounter Plan of Treatment Not on filedocumented as of this encounter Procedures Procedure Name Priority Date/Time Associated Diagnosis Comme nts URINE CULTURE Routine 07/07/2019 12:38 PM Orchalgia Results for this SURGICAL GARMENT ASSEMBLY SUPERVISOR procedure are i n the results section . documented in this encounter Results (ABNORMAL) Prostatic Specific Antigen (F/U) (07/07/2019 12:55 PM SURGICAL GARMENT ASSEMBLY SUPERVISOR) P athologist Signature Prostatic 6.5 (H) 0.0 - 4.0 07/07/2019 [place] Specific ng/mL 2:45 PM SURGICAL GARMENT ASSEMBLY SUPERVISOR HOSPITAL LAB Antigen Specimen Anatomical Collection Method / Collection Time Recei anisa Time (Source) Location / Volume Laterality Blood Venipuncture / 07/07/2019 12:55 0 Unknown PM SURGICAL GARMENT ASSEMBLY SUPERVISOR 12:55 PM SURGICAL GARMENT ASSEMBLY SUPERVISOR Narrative [facility] - 07/07/2019 2:45 PM SURGICAL GARMENT ASSEMBLY SUPERVISOR The Carreon PSA Chemiluminescent immunoas say is used. Results obtained with different test methods or kits cannot be used inte rchangeably. Waqas Rodney MD LAB_1 Performing Organization Address City/State/ZIP Code Phon e Number [facility] [address] [place] [address] [phone] (ABNORMAL) Urine Culture (07/07/2019 12:38 PM SURGICAL GARMENT ASSEMBLY SUPERVISOR) Component Value Ref Test Method Analysis Performed At Patho logist Range Time Signature Urine Growth (A) 07/08/2019 [facility] Culture 10:29 PM HOSPITAL SURGICAL GARMENT ASSEMBLY SUPERVISOR Urine 10,000 - FRIEDA 07/08/2019 [facility] Culture 50,000 CFU/mL SENSITIVITY 10:29 PM HOSPITAL Citrobacter SURGICAL GARMENT ASSEMBLY SUPERVISOR koseri Specimen Anatomical Collection Method Collection Time Receive d Time (Source) Location / / Volume Laterality Urine URINE SPECIMEN Non-blood 07/07/2019 12:38 0 COLLECTION, CLEAN Collection / PM SURGICAL GARMENT ASSEMBLY SUPERVISOR 12:[address] CATCH / Unknown [...] Waqas Rodney MD LAB_1 Performing Organization Address City/[facility]/ZIP Code Phon e Number [address] [address] documented in this encounter Visit Diagnoses Diagnosis Orchalgia - Primary Unspecified disorder of male genital org ans documented in this encounter Care Teams Welding Machine Assembler Relationship Specialty Start Date End Date Placido Ott MD PCP - General Internal Medicine 10/26/17 10/17/21 [address] [place] [address] documented as of this encounter
--- OUTSIDE RECORDS SUMMARY | 2022-04-08 12:10 | XMS_ITS | Encounter Summary ---
:1935 Author Organization [facility] Address [address] [address] Care Team Providers Name Role Phone Shelly Ott MD Primary Care Provider Reason for Visit Reason Comments Refill pravastatin (PRAVACHOL) 40 M G tablet [Pharmacy Med Name: PRAVASTATIN 40MG TABLETS] Encounter Details Date Type Department Care Team Description 10/14/2019 Refill [facility] Shelly Ott Re fill (pravastatin Beatriz Spence MD (PRAVACHOL) 40 MG Medicine [address] tablet [Pharmacy Med [address] [place] Name: PRAVASTATIN 40[address] [place] [address] [place], [place] TABLETS]) [phone] Social History Tobacco Use Types Packs/Day Years [...] Dawson RN 10/14/2019, 1:10 PM Interface, Out Rouxbe Query - 10/14/2019 1:06 PM CDT pravastatin [...] every night at bedtime (unchanged) Powered by [employer], Reference: [id number], 10/14/2019 1:06:21 PM CDT, Pool: PETER JEFFERY RN ([id number]) documented in this encounter Plan of Treatment Not on filedocumented as of this encounter Visit Diagnoses Diagnosis Hyperlipidemia, unspecified hyperlipidem ia type (HRC) documented in this encounter Care Teams Estate Manager Relationship Specialty Start Date End Date Shelly Ott MD PCP - General Internal Medicine 10/26/17 10/17/21 [address] [place] [address] documented as of this encounter
--- OUTSIDE RECORDS SUMMARY | 2022-04-08 12:10 | XMS_ITS | Encounter Summary ---
:1935 [facility] Organization [facility] Address [address] [address] Care Team Providers Name Role Phone Shelly Ott MD Primary Care Provider Reason for Visit Reason Comments Refill omeprazole (PRILOSEC) 20 MG capsule [Pharmacy Med Name: OMEPRAZOLE 20MG CAPSULES] Encounter Details Date Type Department Care Team Description 05/28/2019 [facility]ill [facility] Shelly Ott Re fill (omeprazole [place] [facility] anjelica Spence MD (PRILOSEC) 20 MG [address] capsule [[place] [address] [address] Name: OMEPRAZOLE 20MG [phone] [place], [place]]) [address] Social History Tobacco Use Types Packs/Day Years [...] Order. Adelaide Rehman RN 05/29/2019, 11:02 AM L COATER Interface, Out [employer] Query - 05/28/2019 11:37 AM CST omeprazole [...] hour before a meal (unchanged) Powered by [employer], Reference: [id number], 05/28/2019 11:37:42 AM METAL COATER, Pool: PETER REFILL EULOGIO ([id number]) L COATER documented in this encounter Plan of Treatment Not on filedocumented as of this encounter Visit Diagnoses Not on filedocumented in this encounter Care Teams Patient Financial Counselor Relationship Specialty Start Date End Date Shelly Ott MD PCP - General Internal Medicine 10/26/17 10/17/21 [address] [place] [address] documented as of this encounter
--- OUTSIDE RECORDS SUMMARY | 2022-04-08 12:10 | XMS_ITS | Encounter Summary ---
:1935 Author Organization [facility] Address [address], [place] [address] Care Team Providers Name Role Phone Placido Ott MD Primary Care Provider Reason for Visit Reason Comments Test Results Encounter Details Date Type Department Care Team Description 07/08/2019 Telephone [facility] Waqas Rodney, Test Results [facility] [address] [place] [address] [place] [address] [phone] Social History Tobacco Use Types Packs/Day Years [...] as of this encounter Progress Notes Abi Lagunas, RN - 07/08/2019 8:36 AM FRESCO ARTIST Addended by: ABI LAGUNAS on: 07/08/2019 08:36 AM Modules accepted: Orders CO ARTIST documented in this encounter Nursing Notes Abi Lagunas RN - 07/08/2019 8:32 AM CST Error to below, 10 days. Also, Notes recorded by Waqas Rodney MD on 07/07/2019 at 6:40 PM FRESCO ARTIST PSA stable please inform no evid of active prostate cancer recheckPSA one year. PSA has been ordered. Patient verbalizes understanding and agrees to plan of care. Abi Lagunas RN 07/08/2019, 8:35 AM CO ARTIST Abi Lagunas RN - 07/08/2019 8:27 AM CST Left detailed message for patient informing him of her positive urine culture. Patient was started on duricef BID for 14 days. Prescription was sent to [facility] in [place]. Abi Lagunas RN 07/08/2019, 8:29 AM CO ARTIST documented in this encounter Plan of Treatment Not on filedocumented as of this encounter Results (ABNORMAL) Prostatic Specific Antigen (F/U) (05/16/2020 2:30 PM FRESCO ARTIST) P athologist Signature Prostatic 6.6 (H) 0.0 - 4.0 05/16/2020 [facility] Specific ng/mL 8:49 PM FRESCO ARTIST HOSPITAL LAB Antigen Specimen Anatomical Collection Method / Collection Time Recei anisa Time (Source) Location / Volume Laterality Blood Venipuncture / 05/16/2020 2:30 05/16/2020 2:30 Unknown PM FRESCO ARTIST PM FRESCO ARTIST Narrative [facility] - 05/16/2020 8:49 PM FRESCO ARTIST The Carreon PSA Chemiluminescent immunoas say is used. Results obtained with different test methods or kits cannot be used inte rchangeably. Waqas Rodney MD LAB_1 Performing Organization Address City/State/ZIP Code Phon e Number [facility] [address] [place] [address] documented in this encounter Visit Diagnoses Diagnosis Elevated PSA - Primary Elevated prostate specific antigen (PSA) documented in this encounter Care Teams Healthcare Economics Consultant Relationship Specialty Start Date End Date Placido Ott MD PCP - General Internal Medicine 10/26/17 10/17/21 [address] [place] [address] documented as of this encounter
--- OUTSIDE RECORDS SUMMARY | 2022-04-08 12:10 | XMS_ITS | Encounter Summary ---
:1935 Author Organization [facility] Address [address] [place] [address] Care Team Providers Name Role Phone Placido Ott MD Primary Care Provider Encounter Details Date Type Department Care Team Description 04/20/2019 Lab Visit [facility] Encoun ter for long-term (current) use of medications; [facility] Vitamin B12 deficiency; [address] Essential hypertension; [place] [address] Gastroesophageal reflux dise ase, esophagitis presence not specified; [phone] Hematemesis, pr esence of nausea not specified [...] - I will send a prescription to [facility]. Recommend discuss with your metal furnace operator your ongoing cough. Ok to continue Mucinex as needed. Hemoglobin normal (no ongoing bleeding), so report any additional vomiting with blood, but will hold off on endoscopy at this time. Placido Ott MD 04/21/2019 10:45 AM SH REPAIRER documented in this encounter Plan of Treatment Not on filedocumented as of this encounter Procedures Procedure Name Priority Date/Time Associated Diagnosis Comme nts BASIC METABOLIC Routine 04/20/2019 4:31 Essential hypertension Results for this PANEL PM FINISH REPAIRER procedure are i n the results section. COMPLETE BLOOD Routine 04/20/2019 4:31 Encounter for long-term Results for this COUNT-NO DIFF PM FINISH REPAIRER (current) use of procedure are in medications the results section. MAGNESIUM Routine 04/20/2019 4:31 Gastroesophageal reflux R esults for this PM FINISH REPAIRER disease, esophagitis procedu re are in presence not specified the r esults section. VITAMIN B12 ONLY Routine 04/20/2019 4:31 Vitamin B12 deficienc y Results for this PM FINISH REPAIRER procedure are i n the results section. ALT (SGPT) Routine 04/20/2019 4:31 Encounter for long-term R esults for this PM FINISH REPAIRER (current) use of procedure a re in medications the results section. documented in this encounter Results Magnesium (04/20/2019 4:31 PM FINISH REPAIRER) P athologist Signature Magnesium 1.9 1.6 - 2.6 04/20/2019 [facility] mg/dL 6:17 PM FINISH REPAIRER [facility]OSPITAL [facility] Specimen Anatomical Collection Method / Collection Time Recei anisa Time (Source) Location / Volume Laterality Blood Venipuncture / 04/20/2019 4:31 04/20/2019 4:31 Unknown PM FINISH REPAIRER PM FINISH REPAIRER Placido Ott MD LAB_1 Performing Organization Address City/State/ZIP Code Phon e Number [facility] [address] [place] [address] (ABNORMAL) Basic Metabolic Panel (04/20/2019 4:31 PM FINISH REPAIRER) P athologist Signature Sodium 143 136 - 145 04/20/2019 [place] [facility] mmol/L 4:56 PM FINISH REPAIRER [address] Potassium 4.2 3.5 - 5.1 04/20/2019 [place] [facility] mmol/L 4:56 PM FINISH REPAIRER [address] Chloride 108 98 - 109 04/20/2019 [place] [facility] mmol/L 4:56 PM FINISH REPAIRER [address] CO2 25 20 - 29 04/20/2019 [place] [facility] mmol/L 4:56 PM FINISH REPAIRER [address] Anion Gap 10 7 - 16 04/20/2019 [place] [facility] mmol/L 4:56 PM FINISH REPAIRER [address] Calcium 9.1 8.4 - 10.4 04/20/2019 [place] [facility] mg/dL 4:56 PM FINISH REPAIRER [address] BUN 17 7 - 26 04/20/2019 [place] [facility] mg/dL 4:56 PM FINISH REPAIRER [address] Creatinine 1.15 0.73 - 04/20/2019 [place] [facility] 1.18 mg/dL 4:56 PM FINISH REPAIRER [address] GFR, Estimated 58 (L) >60 04/20/2019 [place] [facility] mL/min/1.7 4:56 PM FINISH REPAIRER [address] 3m2 GFR, Est If >60 >60 04/20/2019 [place] [facility] mL/min/1.7 4:56 PM FINISH REPAIRER [address] [place] 3m2 Glucose 103 (H) 70 - 100 04/20/2019 [facility] [facility] mg/dL 4:56 PM FINISH REPAIRER [address] Comment: The given reference range is fo r the fasting state. Non-fasting reference range for glucose is 70 - 180 mg/dL. Hours Fasting 5 04/20/2019 4:56 PM FINISH REPAIRER [facility] Specimen Anatomical Collection Method / Collection Time Recei anisa Time (Source) Location / Volume Laterality Blood Venipuncture / 04/20/2019 4:31 04/20/2019 4:31 Unknown PM FINISH REPAIRER PM FINISH REPAIRER Narrative [place] [facility] - 04/20/2019 4:5 6 PM FINISH REPAIRER The National Kidney Disease Education Pr ogram suggests measuring Cystatin C in patients with eGFRcrea of 45 to 59 ml/mi n/1.73^2 who do not have other markers of kidney damage (i.e. elevated urine Album in/Creatinine Ratio or a prior Cystatin C confirming the presence of chronic kidne y disease). Placido Ott MD LAB_1 Performing Organization Address [facility]/ZIP Code Phon e Number [place] [facility] [address] [place], [place] [address] [place] [facility] [address] [place], [place] [address], [place] [phone] Vitamin B12 Only (04/20/2019 4:31 PM FINISH REPAIRER) P athologist Signature Vitamin B12 293 213 - 816 04/20/2019 [facility] pg/mL 10:09 PM FINISH REPAIRER [facility] Specimen Anatomical Collection Method / Collection Time Recei anisa Time (Source) Location / Volume Laterality Blood Venipuncture / 04/20/2019 4:31 04/20/2019 4:31 Unknown PM FINISH REPAIRER PM FINISH REPAIRER Placido Ott MD LAB_1 Performing Organization Address [facility] Code Phon e Number [facility] [address] [address] ALT (SGPT) (04/20/2019 4:31 PM FINISH REPAIRER) P athologist Signature ALT (SGPT) 34 0 - 55 U/L 04/20/2019 [place] [facility] 4:56 PM FINISH REPAIRER [address] Specimen Anatomical Collection Method / Collection Time Recei anisa Time (Source) Location / Volume Laterality Blood Venipuncture / 04/20/2019 4:31 04/20/2019 4:31 Unknown PM FINISH REPAIRER PM FINISH REPAIRER Placido Ott MD LAB_1 Performing Organization Address City/[facility]/ZIP Code Phon e Number [place] [facility] [address] [place], [place] [address] [place] [facility] [address] [place], [place] [address], [place] [phone] Complete Blood Count-No Diff (04/20/2019 4:31 PM FINISH REPAIRER) P athologist Signature WBC 7.7 3.5 - 10.5 04/20/2019 [place] [facility] x10(9)/L 4:37 PM FINISH REPAIRER [address] RBC 5.02 4.32 - 04/20/2019 [place] [facility] 5.72 4:37 PM FINISH REPAIRER [address] x10(12)/L Hemoglobin 15.6 13.5 - 04/20/2019 [place] [facility] 17.5 g/dL 4:37 PM FINISH REPAIRER [address] HCT 48.1 38.8 - 04/20/2019 [place] [facility] 50.0 % 4:37 PM FINISH REPAIRER [address] MCV 95.8 80.0 - 04/20/2019 [place] [facility] 100.0 fL 4:37 PM FINISH REPAIRER [address] MCH 31.1 27.6 - 04/20/2019 [place] [facility] 33.3 pg 4:37 PM FINISH REPAIRER [address] MCHC 32.4 31.5 - 04/20/2019 [place] [facility] 35.2 g/dL 4:37 PM FINISH REPAIRER [address] RDW 13.6 11.9 - 04/20/2019 [place] [facility] 15.5 % 4:37 PM FINISH REPAIRER [address] Platelets 178 150 - 450 04/20/2019 [place] [facility] x10(9)/L 4:37 PM FINISH REPAIRER [address] Automated NRBC 0 <=0 /100 04/20/2019 [place] [facility] WBC 4:37 PM FINISH REPAIRER [address] Specimen Anatomical Collection Method / Collection Time Recei anisa Time (Source) Location / Volume Laterality Blood Venipuncture / 04/20/2019 4:31 04/20/2019 4:31 Unknown PM FINISH REPAIRER PM FINISH REPAIRER Placido Ott MD LAB_1 Performing Organization Address City/State/ZIP Code Phon e Number [facility] [address] [place], [place] [address] [place] [facility] [address] [place], [place] [address] [phone] documented in this encounter Visit Diagnoses Diagnosis Encounter for long-term (current) use of medications Encounter for long-term (current) use of other medications Vitamin B12 deficiency (HRC) Other B-complex deficiencies Essential hypertension (HRC) Unspecified essential hypertension Gastroesophageal reflux disease, esophag itis presence not specified Hematemesis, presence of nausea not spec ified documented in this encounter Care Teams Camp Director Relationship Specialty Start Date End Date Placido Ott MD PCP - General Internal Medicine 10/26/17 10/17/21 [address] [place] [address] documented as of this encounter
--- OUTSIDE RECORDS SUMMARY | 2022-04-08 12:10 | XMS_ITS | Encounter Summary ---
:1935 Author Organization [facility] Address [address], [place] [address] Care Team Providers Name Role Phone Placido Ott MD Primary Care Provider Reason for Visit Reason Comments EARACHE Encounter Details Date Type Department Care Team Description 01/23/2020 Office Visit [facility] Acute otitis externa of left ear, unspecified type (Primary Dx); [facility] Impacted cerumen of left ear [address] [place] [address] Social History Tobacco Use Types Packs/Day [...] effusion. Left EAC with impacted cerumen. After INDUSTRIAL RETROFIT DESIGNER lavaged, only a small portion of cerumen is able to be cleared. Patient not tolerating more lavage due to pain. Cardiovascular: Normal rate. Pulmonary/Chest: Effort normal. Neurological: He is alert. Gait normal. Skin: Skin is warm and dry. Vitals reviewed. ASSESSMENT / PLAN ICD-10-CM 1. Acute otitis externa of left ear, unspecified type H60.502 neomycin-polymyxin B-hydrocortisone (CORTISPORIN) 3.5-14425-3 ear drop solution 2. Impacted cerumen of [...] cerumen documented in this encounter Care Teams Admitting Officer Relationship Specialty Start Date End Date Placido Ott MD PCP - General Internal Medicine 10/26/17 10/17/21 [address] [place] [address] documented as of this encounter
--- OUTSIDE RECORDS SUMMARY | 2022-04-08 12:10 | XMS_ITS | Encounter Summary ---
:1935 Author Organization [facility] Address [address] [address] Care Team Providers Name Role Phone Placido Ott MD Primary Care Provider Reason for Visit Reason Comments QUESTIONS, GENERAL scrotum pain Encounter Details Date Type Department Care Team Description 06/30/2019 Telephone [facility] Waqas Rodney [place] Edson Griffith MD (scrotum pain) [facility] [address] [place] [address] [place], [place] [phone] [address] Social History Tobacco Use Types Packs/Day Years [...] plan. Yuliya Palomino RN 07/01/2019, 3:04 PM AIR CONDITIONING APPRENTICE Waqas Rodney MD - 07/01/2019 2:17 PM CST No other treatment needed AIR CONDITIONING APPRENTICE Yuliya Palomino RN - 06/30/2019 3:36 PM [...] advise. Yuliya Palomino RN 06/30/2019, 3:48 PM AIR CONDITIONING APPRENTICE Estefani Santiago - 06/30/2019 3:00 PM CST Symptoms [Composing Machine Operator/Appt Center: If this call is after 3 p.m., communicate to patient: If we are not able to get back to you by the end of the day and your symptoms worsen, please contact the Careline [phone] OR at .] [Composing Machine Operator/Appt Center: Refer to Symptoms Indicating Need for Triage list to determine urgency level.] Describe your symptoms (if pain, include location): Scrotum pain on and off for a couple of weeks Have you recently been seen for this? No. He scheduled with Dr. Rodney for 08/04/19 and is on the wait list. [Composing Machine Operator/Appt Center: Add/verify patient preferred pharmacy is highlighted in blue in the Pharmacy Selection under Meds & Orders] Is it okay to leave a detailed message on your voicemail? Yes Is there anything else I can help you with today? no Estefani Santiago Please warm transfer/route to RNs for further triage AIR CONDITIONING APPRENTICE documented in this encounter Plan of Treatment Not on filedocumented as of this encounter Visit Diagnoses Not on filedocumented in this encounter Care Teams Home Health Specialist Relationship Specialty Start Date End Date Placido Ott MD PCP - General Internal Medicine 10/26/17 10/17/21 [address] [place] [address] documented as of this encounter
--- OUTSIDE RECORDS SUMMARY | 2022-04-08 12:10 | XMS_ITS | Encounter Summary ---
:1935 Author Organization [facility] Address [address], [place] [address] Care Team Providers Name Role Phone Placido Ott MD Primary Care Provider Reason for Visit Reason Comments Refill cefadroxil (DURICEF) 500 MG capsule [Pharmacy Med Name: CEFADROXIL 500MG CAPSULES] Encounter Details Date Type Department Care Team Description 11/30/2019 Refill [facility] Waqas Rodney (cefadroxil [facility] MD Gladis (DURICEF) 500 MG Urology [address] capsule [Pharmacy Med [address] [place] [address] Name: CEFADROXIL 500[address] [place] [address] [place] CAPS[place]ES]) [phone] Social History Tobacco Use Types Packs/Day Years [...] of this encounter Nursing Notes Interface, Out Healthonomy Prov Query - 11/30/2019 12:13 PM CDT cefadroxil [...] 14 days. (changed but equivalent) Powered by [employer], Reference: [id number], 11/30/2019 12:13:27 PM CDT, Pool: [facility] REFILL ([id number]) documented in this encounter Plan of Treatment Not on filedocumented as of this encounter Visit Diagnoses Not on filedocumented in this encounter Care Teams Sheet Taker Relationship Specialty Start Date End Date Placido Ott MD PCP - General Internal Medicine 10/26/17 10/17/21 [address] [place], [place] [id number] documented as of this encounter
--- OUTSIDE RECORDS SUMMARY | 2022-04-08 12:10 | XMS_ITS | Encounter Summary ---
:1935 Author Organization [facility] Address [address] [place] [address] Care Team Providers Name Role Phone Shelly Ott MD Primary Care Provider Reason for Visit Reason Comments Refill pravastatin (PRAVACHOL) 40 M G tablet [Pharmacy Med Name: PRAVASTATIN 40MG TABLETS] Encounter Details Date Type Department Care Team Description 07/07/2020 Refill [facility] Shelly Ott Re fill (pravastatin Beatriz Spence MD (PRAVACHOL) 40 MG Medicine [address] tablet [Pharmacy Med [address] [place] Name: PRAVASTATIN 40[address] [place] [address] [place], [place] TABLETS]) [phone] Social History Tobacco Use Types Packs/Day Years [...] Order. Adelaide Rehman RN 07/09/2020, 7:49 AM O DEVELOPER Interface, Out Surescripts Prov Query - 07/07/2020 [...] every night at bedtime (unchanged) Powered by [employer], Reference: [id number], 07/07/2020 4:01:55 AM TIBCO DEVELOPER, Pool: PETER REFILL EULOGIO ([id number]) O DEVELOPER documented in this encounter Plan of Treatment Not on filedocumented as of this encounter Visit Diagnoses Diagnosis Hyperlipidemia, unspecified hyperlipidem ia type (HRC) documented in this encounter Care Teams Heel Sprayer Relationship Specialty Start Date End Date Shelly Ott MD PCP - General Internal Medicine 10/26/17 10/17/21 [address] [place] [address] documented as of this encounter
--- OUTSIDE RECORDS SUMMARY | 2022-04-08 12:10 | XMS_ITS | Encounter Summary ---
:1935 Author Organization [facility] Address [address], [place] [address] Care Team Providers Name Role Phone Placido Ott MD Primary Care Provider Reason for Visit Reason Comments SKIN LESION Encounter Details Date Type Department Care Team Description 06/29/2020 Office Visit [facility] Sammy Cordero ging skin lesion [facility]riz Abraham MD (Primary Dx) Practice [address] [place] [address] [place], [place] [phone] [address] Social History Tobacco Use Types Packs/Day Years [...] Comments Blood Pressure 123/77 06/29/2020 11:37 AM [facility] Pulse 86 06/29/2020 11:37 AM [facility] Temperature 36.5 ??C (97.7 ??F) 06/29/2020 11:32 AM [facility] Respiratory Rate 16 06/29/2020 11:32 AM [facility] Oxygen Saturation 93% 06/29/2020 11:32 AM [facility] Inhaled Oxygen Concentration - - Weight 110.9 kg (244 lb 6.4 oz) 06/29/2020 11:32 AM [facility] Height 174 cm (5' 8.5) 06/29/2020 11:32 AM [facility] Body Mass Index 36.62 06/29/2020 11:32 AM [facility] documented in this encounter Patient Instructions Patient InstructionsAnne Marie Cunningham, AFTAB - 06/29/2020 11:30 AM CST Healthy Weight Matters Understanding body mass index Your BMI is on your After Visit Summary under ???Today???s Visit.?? You can also find a BMI calculator on the National [employer] website at www.nhlbi.nih.gov/health/educational/lose_wt/BMI/bmicalc.htm. BMI ranges [...] for dessert. Limit deep-fried vegetables, such as faroese fries. + Choose lean protein, such as [...] that works best for you. + For [facility], call [phone]. + For [facility], call [phone]. + For [facility] locations and [facility], call [phone]. + For [facility] and [facility], call [phone]. + For [facility], call [phone]. (10/2018) ??[facility] HOW TO CARE FORYOUR SKIN AFTER YOUR [...] Make a follow up appointment by calling [phone] if you have any signs of infection. Sammy Cordero MD [facility] documented in this encounter Progress Notes Sammy [...] tolerated without complications. Pathology was sent to [facility] Pathology. Patient likely will need Mohs surgery if positive for basal cell. Follow up: return pending path #2 Lesion: NONHEALING SKIN LESION RIGHT LATERAL FOREHEAD NEAR CHRISTIAN Lesion on RIGHT CHRISTIAN with patient'sobservations stated as being present for [...] tolerated without complications. Pathology was sent to [facility]ology. Sammy Cordero MD Sun protection with sunscreens and clothing to prevent skin cancer is discussed. The signs and symptoms of malignant skin lesions are reviewed with him today. [facility] Sammy Cordero MD - 06/29/2020 11:30 AM CST Good news. Lesions on nose in forehead are pre cancerous change - actinic keratosis. Procedure should have removed the lesions totally for you. Recheck skin in 3 months. Send pathology report to him [facility] documented in this encounter Plan of Treatment Not on filedocumented as of this encounter Procedures Procedure Name Priority Date/Time Associated Diagnosis Comme nts SURGICAL PATHOLOGY Routine 06/29/2020 12:14 PM Changing skin l esion Results for this [facility] procedure are i n the results section. documented in this encounter Results Surgical Path (06/29/2020 12:14 PM [facility]) Component Value Ref Test Analysis Performed At [facility] gist Range Method Time Signature Case Report Surgical Pathology ?Case: [id number] ? 07/03/2020 [facility] Authorizing Provider: ??Sammy Macario MD ? Collected: ? 06/29/2020 1214 ? 3:29 PM [facility] Ordering Location: ? [facility] ?? Received: ?06/29/2020 [address] [facility] ? Pathologist: ? Etta Madsen MD ? Specimens: ?? A) - Nose, fadi al bridge ? B) - Fore head, right lateral ? FINAL A. Skin, Nose, nasal bridge, shave biopsy: 07/03/2020 [facility] Electronically DIAGNOSIS Hypertrophic actinic keratos is, ulcerated, extending to peripheral margins 3:29 PM [facility] signed by Etta Madsen MD B. Skin, Forehead, right lateral, shave biopsy: on 07/03/2020 at Actinic keratosis 3: 29 PM Clinical non healing skin lesion 07/03/2020 [facility] Information 3:29 PM [facility] Microscopic Microscopic 07/03/2020 [facility] Description examination is 3:29 PM [facility] performed. Gross A. Nose, nasal bridge. 07/03/2020 [facility] Description The specimen is received in formalin and labeled with the patient's name and Nose, nasal bridge. The specimen consists of a white 0.3 cm skin shave biopsy with a white-brown 0.2 cm lesion on the skin 3:29 PM [facility] surface. The specimen is ink ed [...] DG Embedded 07/03/2020 [facility] Images 3:29 PM [facility] Specimen Anatomical Collection Method Collection Time Receive d Time (Source) Location / / Volume Laterality Tissue NASAL STRUCTURE / Non-blood 06/29/2020 12:14 2020 3:54 Unknown Collection / PM [facility] PM [facility] Unknown Tissue specimen FOREHEAD STRUCTURE 06/29/2020 12:14 3:54 (specimen) / Unknown PM [facility] PM [facility] Gene C [facility] Performing Organization Address City/State/ZIP Code Phon e Number [address] [address] documented in this encounter Visit Diagnoses Diagnosis Changing skin lesion - Primary Unspecified disorder of skin and subcuta neous tissue documented in this encounter Care Teams Bottle House Cleaners Supervisor Relationship Specialty Start Date End Date Placido Ott MD PCP - General Internal Medicine 10/26/17 10/17/21 [address] [place] [address] documented as of this encounter
--- OUTSIDE RECORDS SUMMARY | 2022-04-08 12:10 | XMS_ITS | Encounter Summary ---
:1935 Author Organization [facility] Address [address], [place] [address] Care Team Providers Name Role Phone Placido Ott MD Primary Care Provider Reason for Visit Reason Comments Careplan: General Patient needs Dr. Ronel blackmon o call [employer] to increase the number of catheters he recei ves at one time Encounter Details Date Type Department Care Team Description 09/26/2019 Telephone [facility] Waqas Rodney replan: General Beatriz Griffith MD (Patient needs [facility] [address] [facility] to [facility] [address] [facility] [place] [address] [place], [place] increase the number of [phone] catheters he receives [phone] at one time) (Work) Social History Tobacco [...] 11:32 AM CDT Done! Will fax to [employer]. Abi Lagunas RN 09/29/2019, 11:32 AM Waqas [...] the necessary changes can be relayed to [facility]. From office visit on 07/07/2019: Date of [...] ? S: mild intermittent orchalgia Going to [place] [...] that he needs Dr. Rodney to call [employer] to increase the number of catheters he receives from them. Please call: . Please call to discuss. Best time to reach you? Anytime Ok to leave a detailed message? Yes Rosemarie Vasquez ....................................09/26/2019 12:43 PM documented in this encounter Plan of Treatment Not on filedocumented as of this encounter Visit Diagnoses Not on filedocumented in this encounter Care Teams Crayon Sawyer Relationship Specialty Start Date End Date Placido Ott MD PCP - General Internal Medicine 10/26/17 10/17/21 [address] [place] [address] documented as of this encounter
--- OUTSIDE RECORDS SUMMARY | 2022-04-08 12:10 | XMS_ITS | Encounter Summary ---
:1935 Author Organization [facility] Address [address] [address] Care Team Providers Name Role Phone Shelly Ott MD Primary Care Provider Reason for Visit Reason Comments Refill allopurinol (ZYLOPRIM) 100 M G tablet [Pharmacy Med Name: ALLOPURINOL 100MG TABLETS] Encounter Details Date Type Department Care Team Description 06/07/2019 Refill [facility] Shelly Ott Re fill (allopurinol [facility] an[facility] Spence MD (ZYLOPRIM) 100 MG [address] tablet [[place] [address] [address]VD Name: ALLOPURINOL 100MG [phone] [place], [place] TABLETS]) [id number] Social History Tobacco Use Types Packs/Day Years [...] Order. Adelaide Rehman RN 06/07/2019, 10:42 AM LOCK SEWING MACHINE OPERATOR Interface, Out Mixx Query - 06/07/2019 10:34 AM CST allopurinol [...] tabletby mouth every day (unchanged) Powered by [employer], Reference: [id number], 06/07/2019 10:34:52 AM FLATLOCK SEWING MACHINE OPERATOR, Pool: PETER REFILL RN ([id number]) LOCK SEWING MACHINE OPERATOR documented in this encounter Plan of Treatment Not on filedocumented as of this encounter Visit Diagnoses Not on filedocumented in this encounter Care Teams Junior Bookkeeper Relationship Specialty Start Date End Date Shelly Ott MD PCP - General Internal Medicine 10/26/17 10/17/21 [address] [place] [address] documented as of this encounter
--- OUTSIDE RECORDS SUMMARY | 2022-04-08 12:10 | XMS_ITS | Encounter Summary ---
:1935 Author Organization [facility] Address [address], [place] [address] Care Team Providers Name Role Phone Placido Ott MD Primary Care Provider Encounter Details Date Type Department Care Team Description 04/21/2019 Notes/Orders [facility] Placido Ott [facility] [place] Spence MD deficiency (Primary Medicine [address] Dx) [address] [place] [id number] [phone] Social History Tobacco Use Types Packs/Day Years [...] deficiencies documented in this encounter Care Teams Plant Assigner Relationship Specialty Start Date End Date Placido Ott MD PCP - General Internal Medicine 10/26/17 10/17/21 [address] [place] [address] documented as of this encounter
--- OUTSIDE RECORDS SUMMARY | 2022-04-08 12:10 | XMS_ITS | Encounter Summary ---
:1935 Author Organization [facility] Address [address], [place] [address] Care Team Providers Name Role Phone Shelly Ott MD Primary Care Provider Reason for Visit Reason Onset Date Comments Refill 11/15/2019 omeprazole (PRILOSEC ) 20 MG capsule Encounter Details Date Type Department Care Team Description 11/15/2019 Refill [facility] Shelly Ott (omeprazole [place] Spence MD (PRILOSEC) 20 MG Medicine [address] capsule) [address] [place] [address] [address] [place] [phone] Social History Tobacco Use Types Packs/Day Years [...] mg caps. Called to get transfer from [facility] in [place]. They stated no refills remaining. Will reapprove [...] hour before a meal (changed) Powered by [employer], Reference: [id number], 11/15/2019 9:10:28 AM CDT, Pool: PETER RINCONILL RN ([id number]) Lorene Manley CMA - 11/15/2019 9:08 AM CDT omeprazole (PRILOSEC) 20 MG capsule Last date filled: not given in pharmacy request Qty: not given in pharmacy request Sig: not given in pharmacy request Pharmacy note: Please send refill for omeprazole 20 mg caps. Called to get transfer from [facility] in [place]. They stated no refills remaining. Lorene Manley CMA 11/15/2019, 9:08 AM documented in this encounter Plan of Treatment Not on filedocumented as of this encounter Visit Diagnoses Not on filedocumented in this encounter Care Teams Maintenance Technician Relationship Specialty Start Date End Date Shelly Ott MD PCP - General Internal Medicine 10/26/17 10/17/21 [address] [place] [address] documented as of this encounter
--- OUTSIDE RECORDS SUMMARY | 2022-04-08 12:10 | XMS_ITS | Encounter Summary ---
:1935 Author Organization [facility] Address [address], [place] [address] Care Team Providers Name Role Phone Placido Ott MD Primary Care Provider Reason for Visit Procedure/Equipment (Routine) - Incomplete Specialty Diagnoses / Procedures Referred By Contact Refer red To Contact Diagnoses Chronic cough Placido Ott MD Procedures XR Chest 2 Views [address] [place] [address] Referral ID Status Reason Start Date Expiration Date Visits V isits Requested Authorized [id number] Incomplete 04/20/2019 07/19/2020 1 1 Encounter Details Date Type Department Care Team Description 04/20/2019 Ancillary Procedure [facility] Rebeca Ott Chronic cough [place] Spence MD [address] [place], [place] [address] [address] [place], [place] [phone] Social History Tobacco Use Types Packs/Day Years [...] PM Chronic cough Resu lts for this NETWORK SYSTEMS INTEGRATOR procedure are i n the results section. documented in this encounter Results XR Chest 2 Views (04/20/2019 4:42 PM NETWORK SYSTEMS INTEGRATOR) Anatomical Region Laterality Modality Chest, Lung Computed Radiography Specimen (Source) Anatomical Collection Method Collection Time Re ceived Time Location / / Volume Laterality 04/20/2019 4:42 PM NETWORK SYSTEMS INTEGRATOR Narrative 04/20/2019 8:54 PM NETWORK SYSTEMS INTEGRATOR EXAM: XR CHEST 2 VIEWS LOCATION: [facility] [...] Cough documented in this encounter Care Teams Factory Hand Relationship Specialty Start Date End Date Placido Ott MD PCP - General Internal Medicine 10/26/17 10/17/21 [address] [place] [address] documented as of this encounter
--- OUTSIDE RECORDS SUMMARY | 2022-04-08 12:10 | XMS_ITS | Encounter Summary ---
:1935 Author Organization [facility] Address [address], [place] [address] Care Team Providers Name Role Phone Placido Ott MD Primary Care Provider Encounter Details Date Type Department Care Team Description 08/06/2019 Lab Visit [facility] Clinic Hematu rich, unspecified [place] Laborator [facility] type [address] [place] [address] Social History Tobacco Use Types Packs/Day [...] 10:45 AM CST Urine clear please inform M1A1 TANK CREWMAN Deepika Arellano RN - 08/06/2019 10:45 AM CST Corie has been notified. Deepika Arellano RN 08/08/2019, 1:17 PM M1A1 TANK CREWMAN documented in this encounter Plan of Treatment Not on filedocumented as of this encounter Procedures Procedure Name Priority Date/Time Associated Diagnosis Comme nts UA MICRO IF Routine 08/06/2019 10:48 AM Hematuria, unspecifie d Results for this M1A1 TANK CREWMAN type procedure are i n the results section. documented in this encounter Results (ABNORMAL) UA Micro If (08/06/2019 10:48 AM M1A1 TANK CREWMAN) [facility] gist Method Time Signature Urine Color Yellow Straw-Yellow 08/06/2019 [facility] 11:18 AM M1A1 TANK CREWMAN [address] Urine Clarity Clear Clear 08/06/2019 [facility] 11:18 AM M1A1 TANK CREWMAN [address] Specific <=1.005 (A) 1.005 - 08/06/2019 [facility] [place], 1.030 11:18 AM M1A1 TANK CREWMAN [address] Urine PH Urine 6.5 5.0 - 8.0 08/06/2019 [facility] 11:18 AM M1A1 TANK CREWMAN [address] Protein, Negative Neg/Trace 08/06/2019 [facility] Urine Qual 11:18 AM M1A1 TANK CREWMAN [address] (mg/dL) Glucose Urine Negative Negative 08/06/2019 [facility] Qual (mg/dL) 11:18 AM M1A1 TANK CREWMAN [address] Ketones, Negative Negative 08/06/2019 [facility] Urine (mg/dL) 11:18 AM M1A1 TANK CREWMAN [address] Urobilinogen, 0.2 <2.0 08/06/2019 [facility] Urine (EU/dL) 11:18 AM M1A1 TANK CREWMAN [address] Bilirubin Negative Negative 08/06/2019 [facility] Urine 11:18 AM M1A1 TANK CREWMAN [address] Blood, Urine Negative Neg/Trace 08/06/2019 [facility] 11:18 AM M1A1 TANK CREWMAN [address] Nitrite Urine Negative Negative 08/06/2019 [facility] 11:18 AM M1A1 TANK CREWMAN [address] Leukocyte Negative Negative 08/06/2019 [facility] Est. 11:18 AM M1A1 TANK CREWMAN [address] Urine Source Clean Catch 08/06/2019 [facility] 11:18 AM M1A1 TANK CREWMAN [address] Specimen Anatomical Collection Method Collection Time Receive d Time (Source) Location / / Volume Laterality Urine URINE SPECIMEN Non-blood 08/06/2019 10:48 0 COLLECTION, CLEAN Collection / AM M1A1 TANK CREWMAN 11:[address] CATCH / Unknown Unknown Waqas Rodney MD LAB_1 Performing Organization Address City/State/ZIP Code Phon e Number [facility] [address] [place], [place] [address] [facility] [address] [place], [place] [address] [phone] documented in this encounter Visit Diagnoses Diagnosis Hematuria, unspecified type documented in this encounter Care Teams Garbage Person Relationship Specialty Start Date End Date Placido Ott MD PCP - General Internal Medicine 10/26/17 10/17/21 [address] [place] [address] documented as of this encounter
--- OUTSIDE RECORDS SUMMARY | 2022-04-08 12:10 | XMS_ITS | Encounter Summary ---
:1935 Author Organization [facility] Address [address], [place] [address] Care Team Providers Name Role Phone No Primary/Referring, Phy Primary Care Provider Unavailable Encounter Details Date Type Department Care Team Description 08/08/2019 Correspondence [facility] MEDICAL WRITTEN [facility] Waqas Griffith MD [facility] Urology [address] [place] [address] [place], [place] [phone] Social History Tobacco Use Types Packs/Day Years [...] on filedocumented in this encounter Care Teams Repairer Screen Crusher Relationship Specialty Start Date End Date No Primary/Referring, Phy PCP - General 12/11/21 documented as of this encounter
--- OUTSIDE RECORDS SUMMARY | 2022-04-08 12:10 | XMS_ITS | Encounter Summary ---
:1935 Author Organization [facility] Address [address], [place] [address] Care Team Providers Name Role Phone Placido Ott MD Primary Care Provider Reason for Visit Reason Comments URINARY PROBLEM Encounter Details Date Type Department Care Team Description 05/18/2020 Office Visit [facility] Waqas Rodney Ur inary problem [place] Edson Griffith MD (Primary Dx) [facility] [address] [place] [address] [place], [place] [phone] Social History Tobacco Use Types Packs/Day Years [...] Comments Blood Pressure 147/81 05/18/2020 2:58 PM TAPE MAKING MACHINE OPERATOR Pulse 77 05/18/2020 2:58 PM TAPE MAKING MACHINE OPERATOR Temperature - - Respiratory Rate - - [...] effective for 5-8 yrs. 2. Continue antibiotics. MAKING MACHINE OPERATOR documented in this encounter Progress Notes Waqas [...] Please contact me if clarification is needed.) MAKING MACHINE OPERATOR documented in this encounter Plan of Treatment Not on filedocumented as of this encounter Results (ABNORMAL) Prostatic Specific Antigen (Diagnostic F/U) (12/19/2020 3:23 PM CDT) athologist Signature Prostatic 6.6 (H) 0.0 - 4.0 12/19/2020 [place] Specific ng/mL 8:54 PM CDT [facility]ITAL [facility] Antigen Specimen Anatomical Collection Method / Collection Time Recei anisa Time (Source) Location / Volume Laterality Blood Venipuncture / 12/19/2020 3:23 12/19/2020 3:23 Unknown PM CDT PM CDT Narrative [facility] - 12/19/2020 8:54 PM CDT The Carreon PSA Chemiluminescent immunoas say is used. Results obtained with different test methods or kits cannot be used inte rchangeably. Waqas Rodney MD LAB_1 Performing Organization Address City/State/ZIP Code Phon e Number [facility] [address] [place] [address] (ABNORMAL) UA Micro If (05/16/2020 2:28 PM TAPE MAKING MACHINE OPERATOR) Patholo gist Method Time Signature Urine Color Light Yellow Straw-Yellow 05/16/2020 [facility] 2:42 PM TAPE MAKING MACHINE OPERATOR [address] Urine Clarity Clear Clear 05/16/2020 [facility] 2:42 PM TAPE MAKING MACHINE OPERATOR [address] Specific 1.016 1.005 - 05/16/2020 [facility] [place], 1.030 2:42 PM TAPE MAKING MACHINE OPERATOR [address] Urine PH Urine 5.5 5.0 - 8.0 05/16/2020 [facility] 2:42 PM TAPE MAKING MACHINE OPERATOR [address] Protein, Negative Negative 05/16/2020 [place] [facility] Urine Qual 2:42 PM TAPE MAKING MACHINE OPERATOR [address] (mg/dL) Glucose Urine Negative Negative 05/16/2020 [facility] Qual (mg/dL) 2:42 PM TAPE MAKING MACHINE OPERATOR [address] Ketones, Negative Negative 05/16/2020 [facility] Urine (mg/dL) 2:42 PM TAPE MAKING MACHINE OPERATOR [address] Urobilinogen, <2.0 <2.0 05/16/2020 [facility] Urine (EU/dL) 2:42 PM TAPE MAKING MACHINE OPERATOR [address] Bilirubin Negative Negative 05/16/2020 [facility] Urine 2:42 PM TAPE MAKING MACHINE OPERATOR [address] Blood, Urine Negative Neg/Trace 05/16/2020 [facility] 2:42 PM TAPE MAKING MACHINE OPERATOR [address] Nitrite Urine Negative Negative 05/16/2020 [facility] 2:42 PM TAPE MAKING MACHINE OPERATOR [address] Leukocyte Trace (A) Negative 05/16/2020 [facility] Est. 2:42 PM TAPE MAKING MACHINE OPERATOR [address] Red Blood 1 0 - 3 /HPF 05/16/2020 [facility] Cells 2:42 PM TAPE MAKING MACHINE OPERATOR [address] White Blood 2 0 - 5 /HPF 05/16/2020 [facility] Cells 2:42 PM TAPE MAKING MACHINE OPERATOR [address] Mucus Present (A) None Seen 05/16/2020 [facility] /HPF 2:42 PM TAPE MAKING MACHINE OPERATOR [address] Specimen Anatomical Collection Method Collection Time Receive d Time (Source) Location / / Volume Laterality Urine URINE SPECIMEN Non-blood 05/16/2020 2:28 PM 020 2:38 COLLECTION, CLEAN Collection / TAPE MAKING MACHINE OPERATOR PM TAPE MAKING MACHINE OPERATOR CATCH / Unknown Unknown Waqas Rodney MD LAB_1 Performing Organization Address City/State/ZIP Code Phon e Number [facility] [address] [place], [place] [address] [facility] [address] [place], [place] [address] [phone] documented in this encounter Visit Diagnoses Diagnosis Urinary problem - Primary Other urinary problems documented in this encounter Care Teams Clinical Research Nurse Coordinator Relationship Specialty Start Date End Date Placido Ott MD PCP - General Internal Medicine 10/26/17 10/17/21 [address] [place] [address] documented as of this encounter
--- OUTSIDE RECORDS SUMMARY | 2022-04-08 12:10 | XMS_ITS | Encounter Summary ---
:1935 Author Organization [facility] Address [address], [place] [address] Care Team Providers Name Role Phone Placido Ott MD Primary Care Provider Encounter Details Date Type Department Care Team Description 05/17/2019 Telephone [facility] Waqas Rodney MD [facility] [address] [place] [address] [address] [place], [place] [address] [phone] Social History Tobacco Use Types Packs/Day Years [...] 2 weeks Stay away from [place] tendoniitis. 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
--- OUTSIDE RECORDS SUMMARY | 2022-04-08 12:10 | XMS_ITS | Encounter Summary ---
:1935 Author Organization [facility] Address [address], [place] [address] Care Team Providers Name Role Phone Placido Ott MD Primary Care Provider Reason for Visit Reason Comments Medicare Annual Wellness Video Visit FALL Encounter Details Date Type Department Care Team Description 05/21/2020 Telemedicine [facility] Placido Ott for Medicare annual wellness exam (Primary Dx); [place] Spence MD Gastroesophageal reflux disease, unspeci fied whether esophagitis present; Medicine [address] Vitamin B12 deficiency; [address] Mild persistent asthma without complicat ion; [place] Acute otiti s externa of left ear, unspecified type [address] [phone] Social History Tobacco Use Types Packs/Day Years [...] and are not due for another year. D SERVICE MANAGER documented in this encounter Progress Notes Placido [...] (worked last summer) Plan: neomycin-polymyxin B-hydrocortisone (CORTISPORIN) 3.5-16066-2 ear drop solution Counseling and education provided today includes proper nutrition and health habits, fall prevention, and for those items ordered above. Plan for future preventive services in Patient Instructions. Placido Ott MD 05/21/2020, 12:20 PM Clinician in office Patient at home Billing based on complexity D SERVICE MANAGER documented in this encounter Plan of [...] type documented in this encounter Care Teams Laborer Tin Can Relationship Specialty Start Date End Date Placido Ott MD PCP - General Internal Medicine 10/26/17 10/17/21 [address] [place] [address] documented as of this encounter
--- OUTSIDE RECORDS SUMMARY | 2022-04-08 12:10 | XMS_ITS | Encounter Summary ---
:1935 Author Organization [facility] Address [address], [place] [address] Care Team Providers Name Role Phone Placido Ott MD Primary Care Provider Reason for Visit Reason Comments LAB RESULTS Encounter Details Date Type Department Care Team Description 04/21/2019 Telephone [facility] Do juve Ott MD LAB RESULTS [facility] [address] [place] [place] [address] [place] [address] [phone] Social History Tobacco Use Types Packs/Day Years [...] questions answered Alicia Hollis RN 04/21/201911:01 AM TIC TILE LAYER Alicia Hollis RN - 04/21/2019 10:58 AM CST ----- Message from Placido Ott MD sent at 04/21/2019 10:45 AM PLASTIC TILE LAYER ----- Phone (and release to OPS). Labs and chest xray all look good. Recommend oral vitamin B12 1000 mcg daily - [facility]. Recommend discuss with your catering truck operator your ongoing cough. Ok to continue Mucinex as needed. Hemoglobin normal (no ongoing bleeding), so report any additional vomiting with blood, but will hold off on endoscopy at this time. Placido Ott MD 04/21/2019 10:45 AM TIC TILE LAYER documented in this encounter Plan of Treatment Not on filedocumented as of this encounter Visit Diagnoses Not on filedocumented in this encounter Care Teams Pattern Storage Clerk Relationship Specialty Start Date End Date Placido Ott MD PCP - General Internal Medicine 10/26/17 10/17/21 [address] [place] [address] documented as of this encounter
--- OUTSIDE RECORDS SUMMARY | 2022-04-08 12:10 | XMS_ITS | Encounter Summary ---
:1935 Author Organization [facility] Address [address] [address] Care Team Providers Name Role Phone Placido Ott MD Primary Care Provider Reason for Visit Reason Onset Date Comments ARM PAIN Video Visit 10/26/2019 Encounter Details Date Type Department Care Team Description 10/26/2019 Telemedicine [facility] Gabbi Mendez, Left upper arm pain (Primary Dx); [place] MURRAY Arm bruise, left, initial encounter Non-Respiratory IM [address] [place] [id number] BERTHA MICHAEL [phone] Social History Tobacco Use Types Packs/Day Years [...] of motion of left upper extremity. Assessment/Plan: (M79.652) Left upper arm pain (primary encounter diagnosis) [...] encounter documented in this encounter Care Teams Homicide Squad Captain Relationship Specialty Start Date End Date Placido Ott MD PCP - General Internal Medicine 10/26/17 10/17/21 [address] [place] [address] documented as of this encounter
--- OUTSIDE RECORDS SUMMARY | 2022-04-08 12:10 | XMS_ITS | Encounter Summary ---
:1935 Author Organization Replaced by [facility] Address [address], [place] [address] Care Team Providers Name Role Phone Placido Ott MD Primary Care Provider Reason for Visit Reason Comments Medication Request neomycin-polymyxin B-hydroco rtisone (CORTISPORIN) 3.5-85226-4 ear drop solution Encounter Details Date Type Department Care Team Description 03/30/2020 Telephone [facility] Placido Ott Ne dication Request [place] Spence MD (neomycin-polymyxin Medicine [address] B-hydrocortisone [address] (CORTISPORIN) [place] [address] [place] 3.5-16986-6 ear drop [phone] solution ) Social History Tobacco Use Types [...] requesting (name or type): neomycin-polymyxin B- hydrocortisone (CORTISPORIN)3.5-80954-8 ear drop solution Why do you need this medication: His Earache is back Have you taken this medication or type of medication before: Yes, he was given this medication in urgent care 01/23/20 Is it okay to leave detailed message on your voicemail? yes If a prescription is needed, would you like it filled at our clinic pharmacy? [Logistics Technician/Appt Center: Was the pharmacy entered into the Preferred Pharmacy field? Yes [Logistics Technician/Appt Center: If this call is after 3 p.m., communicate to patient: If we are not able to get back to you by the end of the day and your symptoms worsen please contact the Careline at [phone] OR at .] Is there anything else I can help you with today? no Yuki Molina 03/30/2020, 9:38 AM documented in this encounter Plan of Treatment Not on filedocumented as of this encounter Visit Diagnoses Not on filedocumented in this encounter Care Teams Machine Sander Relationship Specialty Start Date End Date Placido Ott MD PCP - General Internal Medicine 10/26/17 10/17/21 [address] [place] [address] documented as of this encounter
--- OUTSIDE RECORDS SUMMARY | 2022-04-08 12:10 | XMS_ITS | Encounter Summary ---
:1935 Author Organization [facility] Address [address] [address] Care Team Providers Name Role Phone Shelly Ott MD Primary Care Provider Reason for Visit Reason Comments Refill omeprazole (PRILOSEC) 20 MG capsule [Pharmacy Med Name: OMEPRAZOLE DR 20 MG CAPSULE] Encounter Details Date Type Department Care Team Description 11/25/2019 Refill [facility] Shelly Ott Re fill (omeprazole [place] Spence MD (PRILOSEC) 20 MG Medicine [address] capsule [Pharmacy Med [address] [place] Name: OMEPRAZOLE DR [address] [place] [address] [place], [place] MG CAPSULE]) [phone] Social History Tobacco Use Types Packs/Day Years [...] 11/28/2019 2:28 PM CDT Will deny to MD pharmacy. See 11/14 encounter, med approved to Theodore Reese Dawson RN 11/28/2019, 2:28 PM Interface, Out [...] a meal (changed but equivalent) Powered by [employer], Reference: [id number], 11/25/2019 8:34:03 AM CDT, Pool: PETER JEFFERY RN ([id number]) documented in this encounter Plan of Treatment Not on filedocumented as of this encounter Visit Diagnoses Not on filedocumented in this encounter Care Teams Floor Representative Relationship Specialty Start Date End Date Shelly Ott MD PCP - General Internal Medicine 10/26/17 10/17/21 [address] [place] [address] documented as of this encounter
--- OUTSIDE RECORDS SUMMARY | 2022-04-08 12:11 | XMS_ITS | Encounter Summary ---
:1935 Author Organization [facility] Address [address], [place] [address] Care Team Providers Name Role Phone Placido Ott MD Primary Care Provider Reason for Referral Consult/Transfer Care (Routine) - Closed Specialty Diagnoses / Procedures Referred By Contact Refer red To Contact Diagnoses Encounter for long-term (current) use of medications Placido Ott MD [address] [place] [address] Referral ID Status Reason Start Date Expiration Date Visits Requ ested Visits Authorized [id number] Closed 01/18/2019 04/18/2019 1 1 Scheduling Instructions Your provider has recommended an appoint ment in primary care at [facility]. A rental representative will contact you to a ssist you in setting up this appointment, or you may call [phone] to schedule yo ur appointment. Encounter Details Date Type Department Care Team Description 01/13/2019 Refill Order RUST Placido Ott [place] [address] [place] [address] [address] [phone] [place], [place] [address] (Wo rk) Social History [...] 100 MGtablet) - LAST QUALIFYING VISIT IN FAMILY [facility]ACTICE WITH LUIS A HORN C: 10/11/2018 - NEXT SCHEDULED VISIT: None - NEXT LAB APPOINTMENT: None Powered by [employer], Reference: [id number], 01/13/2019 11:51:13 AM CDT, Pool: PETER JOSE D KRISHNAN ([id number]) Interface, Out [employer] Query - 01/13/2019 11:51 AM CDT The [...] Name Type Priority Associated Diagnoses Order [facility] Primary Care Follow-Up Referral Routine Encounter for long -term Ordered: 01/18/2019 (current) use of medications documented as of this encounter Results ALT (SGPT) (04/20/2019 4:31 PM AGENT LICENSING CLERK) P athologist Signature ALT (SGPT) 34 0 - 55 U/L 04/20/2019 [place] AT 4:56 PM AGENT LICENSING CLERK [address] Specimen Anatomical Collection Method / Collection Time Recei anisa Time (Source) Location / Volume Laterality Blood Venipuncture / 04/20/2019 4:31 04/20/2019 4:31 Unknown PM AGENT LICENSING CLERK PM AGENT LICENSING CLERK Placido Ott MD LAB_1 Performing Organization Address City/State/ZIP Code Phon e Number [facility] [address] [place], [place] [address] [place] [facility] [address] [place], [place] [address] [phone] documented in this encounter Visit Diagnoses Diagnosis Encounter for long-term (current) use of medications - Primary Encounter for long-term (current) use of other medications documented in this encounter Care Teams Unit Technician Relationship Specialty Start Date End Date Placido Ott MD PCP - General Internal Medicine 10/26/17 10/17/21 [address] [place] [address] documented as of this encounter
--- OUTSIDE RECORDS SUMMARY | 2022-04-08 12:11 | XMS_ITS | Encounter Summary ---
:1935 Author Organization [facility] Address [address], [place] [address] Care Team Providers Name Role Phone Shelly Ott MD Primary Care Provider Reason for Visit Reason Comments Refill allopurinol (ZYLOPRIM) 100 M G tablet [Pharmacy Med Name: ALLOPURINOL 100MG TABLETS] Encounter Details Date Type Department Care Team Description 03/10/2019 Refill [facility] Shelly Ott Re fill (allopurinol [place] [facility] anjelica Spence MD (ZYLOPRIM) 100 MG [address] tablet [[place] [address] [address] Name: ALLOPURINOL 100MG [phone] [place], [place]TS]) [id number] Social History Tobacco Use Types Packs/Day Years [...] - Allopurinol -> ALT, Cr, and GFR ([place]) are overdue (performed 13 months ago, required every 12 months) -> HCT, HGB, PLT, RBC, RDW, and WBC are overdue (performed over 18 months ago, required every 12 months) -> GFR ([place]) was found, but the result could not be read. Last qualifying visit: 10/11/2018 (in [facility]) Next scheduled visit: 04/20/2019 (with SHELLY OTT) Last ordered by SHELLY OTT: 12/02/2018 (98 days ago) QTY: 90, Refills: 0, Sig: take 1 tabletby mouth every day (unchanged) Cr: 1.23 mg/dL on 02/26/2018 ALT: 27 U/L on 02/26/2018 HGB: 15.1 g/dL on 09/15/2017 GFR ([place]): Taken on 02/26/2018 HCT: 44.7 % on 09/15/2017 Age: 83 PLT: 243 k/cmm on 09/15/2017 RBC: 4.88 m/cmm on 09/15/2017 RDW: 13.5 % on 09/15/2017 WBC: 7.3 k/cmm on 09/15/2017 Powered by [employer], Reference: [id number], 03/10/2019 1:18:30 PM CDT, Pool: PETER JOSE D KRISHNAN ([id number]) Interface, Out [employer] Query - 03/10/2019 1:18 PM CDT The [...] tests.; this will dictate followup. Interface, Out [employer] Query - 03/10/2019 1:18 PM CDT The following lab order(s) may be associated with the Result Note below: ALT (SGPT) Notes Recorded by Caryl Andrew RN on 03/01/2018 at 8:00 AM Patient notified and transferred to scheduling. ...Danielle Andrew RN 03/01/2018 8:00 AM ------ Notes Recorded by Shelly tOt MD on 02/26/2018 at 6:47 PM Phone: labs ok except vitamin B12 level is low, should be treated initially with b12 injections: weekly x 4, then monthly x 5 with recheck of labs at that time, probably change to oral form of med. Injection room notified, he should schedule with them. Shelly Ott MD 02/26/2018 6:47 PM Interface, Out [employer] Prov Query - 03/10/2019 [...] filedocumented in this encounter Care Teams Senior Software Engineer Relationship Specialty Start Date End Date Shelly Ott MD PCP - General Internal Medicine 10/26/17 10/17/21 [address] [place] [address] documented as of this encounter
--- OUTSIDE RECORDS SUMMARY | 2022-04-08 12:11 | XMS_ITS | Encounter Summary ---
:1935 Author Organization [facility] Address [address], [place] [address] Care Team Providers Name Role Phone Placido Ott MD Primary Care Provider Reason for Visit Reason Comments SKIN LESION nose and forehead Consult/Transfer Care (Routine) - Closed Specialty Diagnoses / Procedures Referred By Contact Refer red To Contact Diagnoses Essential hypertension (HRC) Sammy Cordero MD [address] [place] [place] [address] Referral ID Status Reason Start Date Expiration Date Visits Requ ested Visits Authorized [id number] Closed 07/06/2018 10/05/2019 1 1 Encounter Details Date Type Department Care Team Description 08/03/2018 Office Visit [facility] Sammy Cordero [place] ( actinic keratosis) (Primary Dx); Beatriz Abraham MD Actinic keratosis of multiple sites of h ead and neck Practice [address] [place] [place] [address] [place], [place] [phone] Social History Tobacco Use Types Packs/Day Years [...] Comments Blood Pressure 133/82 08/03/2018 11:14 AM PSYCHIATRIC TECHNICIAN Pulse 75 08/03/2018 11:14 AM PSYCHIATRIC TECHNICIAN Temperature 36.7 ??C (98 ??F) 08/03/2018 11:14 AM PSYCHIATRIC TECHNICIAN Respiratory Rate 16 08/03/2018 11:14 AM PSYCHIATRIC TECHNICIAN Oxygen Saturation - - Inhaled Oxygen Concentration - - Weight - - Height 172.1 cm (5' 7.75) 08/03/2018 11:14 AM PSYCHIATRIC TECHNICIAN Body Mass Index - - documented in this encounter Patient Instructions Patient InstructionsStringSammy sutton MD - 08/03/2018 10:50 AM CST TREATMENT [...] Make a follow up appointment by calling [phone] if you have any signs of infection. Sammy Cordero MD HIATRIC TECHNICIAN documented in this encounter Progress Notes Sammy [...] then performed with Liquid Nitrogen via CRY-AC [place] unit to 1 lesions. Post op course explained. 2. Fluoruricil treatment not indicated at this time. 3. Continue sun protective measures and avoidance. 4. Observe closely for skin damage/changes and contact us if worrisome changes occur. 5. Written patient instruction given. 6. Follow up in 6 months. HIATRIC TECHNICIAN documented in this encounter Plan of Treatment Not on filedocumented as of this encounter Visit Diagnoses Diagnosis [place] (actinic keratosis) - Primary Actinic keratosis Actinic keratosis of multiple sites of h ead and neck Actinic keratosis documented in this encounter Care Teams Separator Tender Relationship Specialty Start Date End Date Placido Ott MD PCP - General Internal Medicine 10/26/17 10/17/21 [address] [place] [address] documented as of this encounter
--- OUTSIDE RECORDS SUMMARY | 2022-04-08 12:11 | XMS_ITS | Encounter Summary ---
:1935 Author Organization [facility] Address [address], [place] [address] Care Team Providers Name Role Phone Shelly Ott MD Primary Care Provider Reason for Visit Reason Comments Refill omeprazole (PRILOSEC) 20 MG capsule [Pharmacy Med Name: OMEPRAZOLE 20MG [place]] Encounter Details Date Type Department Care Team Description 02/28/2019 Refill [facility] Shelly Ott Re fill (omeprazole [place] [facility] Pr anjelica Spence MD (PRILOSEC) 20 MG [address] capsule [[place] [address] [address] Name: OMEPRAZOLE 20MG [phone] [place], [place]]) [id number] Social History Tobacco Use Types Packs/Day Years [...] your appointment. Can Lowry Please route to: [facility] [place] [place] Refill RN to fill a 30 day refill. Shauna Dawson RN - 02/28/2019 10:05 AM CDT Last physical with Dr. Ott was 02/26/18 Will route message to [employer] to call pt and schedule appt. PLEASE [...] see no record of that. Interface, Out [employer] Prov Query - 02/28/2019 9:47 AM CDT [...] a meal (unchanged) Age: 83 Powered by [employer], Reference: [id number], 02/28/2019 9:47:11 AM CDT, Pool: PETER REFILL RN ([id number]) documented in this encounter Plan of Treatment Not on filedocumented as of this encounter Visit Diagnoses Not on filedocumented in this encounter Care Teams Consumer Lending Manager Relationship Specialty Start Date End Date Shelly Ott MD PCP - General Internal Medicine 10/26/17 10/17/21 [address] [place] [place] [address] documented as of this encounter
--- OUTSIDE RECORDS SUMMARY | 2022-04-08 12:11 | XMS_ITS | Encounter Summary ---
:1935 Author Organization [facility] Address [address], [place] [address] Care Team Providers Name Role Phone Shelly Ott MD Primary Care Provider Reason for Visit Reason Comments Refill allopurinol (ZYLOPRIM) 100 M G tablet [Pharmacy Med Name: ALLOPURINOL 100MG TABLETS] Encounter Details Date Type Department Care Team Description 11/30/2018 Refill [facility] Shelly Ott Re fill (allopurinol [place] [facility] Pr anjelica Spence MD (ZYLOPRIM) 100 MG [address] tablet [[place] [address] [address] Name: ALLOPURINOL 100MG [phone] [place], [place]TS]) [id number] Social History Tobacco Use Types Packs/Day Years [...] Endocrinology: Gout Agents - Allopurinol -> GFR ([place]) was found, but the result could not [...] 02/26/2018 HGB: 15.1 g/dL on 09/15/2017 GFR ([place]): Taken on 02/26/2018 HCT: 44.7 % on 09/15/2017 Age: 83 PLT: 243 k/cmm on 09/15/2017 RBC: 4.88 m/cmm on 09/15/2017 RDW: 13.5 % on 09/15/2017 WBC: 7.3 k/cmm on 09/15/2017 Powered by [employer], Reference: [id number], 11/30/2018 11:38:12 AM CDT, Pool: PETER JEFFERY RN ([id number]) Interface, Out [employer] Query - 11/30/2018 11:38 AM CDT The [...] tests.; this will dictate followup. Interface, Out [employer] Query - 11/30/2018 11:38 AM CDT The [...] PM Interface, Out [employer] Prov Query - 11/30/2018 [...] on filedocumented in this encounter Care Teams Furnace Operator Relationship Specialty Start Date End Date Shelly Ott MD PCP - General Internal Medicine 10/26/17 10/17/21 [address] [place] [address] documented as of this encounter
--- OUTSIDE RECORDS SUMMARY | 2022-04-08 12:11 | XMS_ITS | Encounter Summary ---
:1935 Author Organization [facility] Address [address], [place] [address] Care Team Providers Name Role Phone Placido Ott MD Primary Care Provider Reason for Visit Reason Comments VOMITING, BLOOD Encounter Details Date Type Department Care Team Description 04/11/2019 Nurse Triage [facility] Placido Ott MITINGJEAN T, Medicine [address] [place] [address] [place], [place] [phone] Social History Tobacco Use Types Packs/Day Years [...] as of this encounter Nursing Notes Silvina Walsh, RN - 04/11/2019 3:05 PM CDT Verified [...] the blood look like? (e.g., color, coffee-grounds) [place] and red, red spots look like blood. [...] blood in stool) Denies Protocols used: VOMITING [id number] Silvina Walsh RN 04/11/2019, 3:27 PM Comfort Hair - 04/11/2019 2:54 PM CDT Symptoms [Packing Attendant/Appt Center: If this call is after 3 p.m., communicate to patient: If we are not able to get back to you by the end of the day and your symptoms worsen, please contact the Careline [phone] OR at .] [Packing Attendant/Appt Center: Refer to Symptoms Indicating Need for [...] else I can help you with today? Comfort Hair Please warm transfer/route to RNs for further triage documented in this encounter Plan of Treatment Not on filedocumented as of this encounter Visit Diagnoses Not on filedocumented in this encounter Care Teams Traffic Monitor Specialist Relationship Specialty Start Date End Date Placido Ott MD PCP - General Internal Medicine 10/26/17 10/17/21 [address] [place] [address] documented as of this encounter
--- OUTSIDE RECORDS SUMMARY | 2022-04-08 12:11 | XMS_ITS | Encounter Summary ---
:1935 Author Organization [facility] Address [address] [place] [address] Care Team Providers Name Role Phone Placido Ott MD Primary Care Provider Reason for Referral Consult/Transfer Care (Routine) - Closed Specialty Diagnoses / Procedures Referred By Contact Refer red To Contact Diagnoses Essential hypertension (HRC) Sammy Cordero MD [address] [place] [address] Referral ID Status Reason Start Date Expiration Date Visits Requ ested Visits Authorized [id number] Closed 07/06/2018 10/05/2019 1 1 Scheduling Instructions Your provider has recommended an appoint ment with [facility]. A material scheduler will contact you to assist you in setting up this appointment, or you may call [phone] to schedule your appoi ntment. OR'S AIDE Reason for Visit Reason Comments SKIN LESION nose Encounter Details Date Type Department Care Team Description 07/06/2018 Office Visit [facility] Sammy Cordero ntial hypertension (Primary Dx); Beatriz Abraham MD [place] (actinic keratosis) Practice [address] [place] [address] [place], [place] [phone] Social History Tobacco Use Types Packs/Day Years [...] Comments Blood Pressure 144/87 07/06/2018 12:57 PM TAILOR'S AIDE Pulse 70 07/06/2018 12:57 PM TAILOR'S AIDE Temperature 36.8 ??C (98.2 ??F) 07/06/2018 12:55 PM TAILOR'S AIDE Respiratory Rate 14 07/06/2018 12:55 PM TAILOR'S AIDE Oxygen Saturation 96% 07/06/2018 12:55 PM TAILOR'S AIDE Inhaled Oxygen Concentration - - Weight 103.4 kg (228 lb) 07/06/2018 12:55 PM TAILOR'S AIDE Height 172.1 cm (5' 7.75) 07/06/2018 12:55 PM TAILOR'S AIDE Body Mass Index 34.92 07/06/2018 12:55 PM TAILOR'S AIDE documented in this encounter Patient Instructions Patient InstructionsStringer, Sammy Abraham MD - 07/06/2018 12:50 PM CST TREATMENT [...] Make a follow up appointment by calling [phone] if you have any signs of infection. Sammy Cordero MD OR'S AIDE documented in this encounter Progress Notes Sammy [...] x 2 by Last time 12/13. ??? SURGICAL PROCEDURE prev. benign pros bx x 2 by Haikel. Last time 12/13. ??? TURP Family History [...] 325 mg by mouth daily. ??? cyanocobalamin ([id number]) 1000 MCG/ML injection 1000 mcg weekly x [...] Provider Last Rate Last Dose ??? cyanocobalamin ([id number]) injection 1,000 mcg 1,000 mcg Intramuscular Other (See Comments) Placido Ott MD 1,000 mcg at 04/28/18 1513 Allergies Allergen Reactions ??? Excedrin Extra Strength [Aklprtz-Bwfjopkyrttlz-Vihttopy] Anaphylaxis ? ? Molds & Smuts Breathing [...] then performed with Liquid Nitrogen via CRY-AC [place] unit to 2 lesions. Post op course explained. 2. Fluoruricil treatment not indicated at this time. 3. Continue sun protective measures and avoidance. 4. Observe closely for skin damage/changes and contact us if worrisome changes occur. 5. Written patient instruction given. 6. Follow up in 2 months. SCAB ON NOSE 3-4 WEEKS OR'S AIDE documented in this encounter Plan of Treatment Scheduled Referrals Name Type Priority Associated Diagnoses Order S chedule Hypertension Follow Up Referral Routine Essential hyperten adore Ordered: 07/06/2018 ([id number]) documented as of this encounter Visit Diagnoses Diagnosis Essential hypertension (HRC) - Primary Unspecified essential hypertension [place] (actinic keratosis) Actinic keratosis documented in this encounter Care Teams Newscast Producer Relationship Specialty Start Date End Date Placido Ott MD PCP - General Internal Medicine 10/26/17 10/17/21 [address] [place] [address] documented as of this encounter
--- OUTSIDE RECORDS SUMMARY | 2022-04-08 12:11 | XMS_ITS | Encounter Summary ---
:1935 Author Organization [facility] Address [address], [place] [address] Care Team Providers Name Role Phone Placido Ott MD Primary Care Provider Reason for Referral Procedure/Equipment (Routine) - Incomplete Specialty Diagnoses / Procedures Referred By Contact Refer red To Contact Diagnoses Chronic cough Placido Ott MD Procedures XR Chest 2 Views [address] [place] [address] Referral ID Status Reason Start Date Expiration Date Visits V isits Requested Authorized [id number] Incomplete 04/20/2019 07/19/2020 1 1 SUPERVISOR Reason for Visit Reason Comments Medicare Annual Wellness Consult/Transfer Care (Routine) - Closed Specialty Diagnoses / Procedures Referred By Contact Refer red To Contact Diagnoses Encounter for long-term (current) use of medications Placido Ott MD [address] [place] [address] Referral ID Status Reason Start Date Expiration Date Visits Requ ested Visits Authorized [id number] Closed 01/18/2019 04/18/2019 1 1 Encounter Details Date Type Department Care Team Description 04/20/2019 Office Visit [facility] NamrataPlacido Galileo thakkar for Medicare annual wellness exam (Primary Dx); Beatriz Spence MD Dilated aortic root (HRC); Medicine [address] Essential hypertension; [address] Vitamin B12 deficiency; BERTH[place] Gastroesoph ageal reflux disease, esophagitis presence not specified; [id number] Hematemesis, presence of nausea not spec ified; [phone] Chronic cough (Work) Social History Tobacco Use [...] Comments Blood Pressure 136/78 04/20/2019 3:06 PM LINE SUPERVISOR Pulse 76 04/20/2019 3:06 PM LINE SUPERVISOR Temperature 36.5 ??C (97.7 ??F) 04/20/2019 3:06 PM LINE SUPERVISOR Respiratory Rate 16 04/20/2019 3:06 PM LINE SUPERVISOR Oxygen Saturation 95% 04/20/2019 3:06 PM LINE SUPERVISOR Inhaled Oxygen Concentration - - Weight 106.6 kg (235 lb) 04/20/2019 3:06 PM LINE SUPERVISOR Height 174 cm (5' 8.5) 04/20/2019 3:06 PM LINE SUPERVISOR Body Mass Index 35.21 04/20/2019 3:06 PM LINE SUPERVISOR documented in this encounter Patient Instructions Patient InstructionsRashmi Egan CMA - 04/20/2019 3:00 PM CST Labs and [...] and are not due for another year. SUPERVISOR documented in this encounter Progress Notes Placido [...] Notes some PND, though on flonase. Sees alligator shear operator. On high dose PPI. History of B12 [...] negative, then will have him see his alligator shear operator back, ok to continue mucinex prn Counseling and education provided today includes proper nutrition and health habits, fall prevention, and for those items ordered above. Plan for future preventive services in Patient Instructions. Placido Ott MD 04/20/2019, 3:17 PM SUPERVISOR documented in this encounter Plan of Treatment Not on filedocumented as of this encounter Results XR Chest 2 Views (04/20/2019 4:42 PM LINE SUPERVISOR) Anatomical Region Laterality Modality Chest, Lung Computed Radiography Specimen (Source) Anatomical Collection Method Collection Time Re ceived Time Location / / Volume Laterality 04/20/2019 4:42 PM LINE SUPERVISOR Narrative 04/20/2019 8:54 PM LINE SUPERVISOR EXAM: XR CHEST 2 VIEWS LOCATION: [facility] [address] DATE/TIME: 04/20/2019 4:42 PM INDICATION: [...] original. EXAM: XR CHEST 2 VIEWS LOCATION: [facility] [address] DATE/TIME: 04/20/2019 4:42 PM INDICATION: Cough. COMPARISON: None. IMPRESSION: 2 benign calcified granuloma s in the left midlung. Lungs otherwise clear. Heart size and pulmonary vascularity normal. Old healed left-sided rib fractures. Old healed fracture deformity of the midportion of the left clavicle. Placido Ott MD RAD GD Magnesium (04/20/2019 4:31 PM LINE SUPERVISOR) P athologist Signature Magnesium 1.9 1.6 - 2.6 04/20/2019 [facility] mg/dL 6:17 PM LINE SUPERVISOR [facility]OSPITAL LAB Specimen Anatomical Collection Method / Collection Time Recei anisa Time (Source) Location / Volume Laterality Blood Venipuncture / 04/20/2019 4:31 04/20/2019 4:31 Unknown PM LINE SUPERVISOR PM LINE SUPERVISOR Placido Ott MD LAB_1 Performing Organization Address City/State/ZIP Code Phon e Number [facility] [address] [place] [address] (ABNORMAL) Basic Metabolic Panel (04/20/2019 4:31 PM LINE SUPERVISOR) P athologist Signature Sodium 143 136 - 145 04/20/2019 [facility] AT mmol/L 4:56 PM LINE SUPERVISOR [address] Potassium 4.2 3.5 - 5.1 04/20/2019 [facility] AT mmol/L 4:56 PM LINE SUPERVISOR [address] Chloride 108 98 - 109 04/20/2019 [facility] AT mmol/L 4:56 PM LINE SUPERVISOR [address] CO2 25 20 - 29 04/20/2019 [facility] AT mmol/L 4:56 PM LINE SUPERVISOR [address] Anion Gap 10 7 - 16 04/20/2019 [facility] AT mmol/L 4:56 PM LINE SUPERVISOR [address] Calcium 9.1 8.4 - 10.4 04/20/2019 [facility] mg/dL 4:56 PM LINE SUPERVISOR [address] BUN 17 7 - 26 04/20/2019 [facility] AT mg/dL 4:56 PM LINE SUPERVISOR [address] Creatinine 1.15 0.73 - 04/20/2019 [facility] AT 1.18 mg/dL 4:56 PM LINE SUPERVISOR [address] GFR, Estimated 58 (L) >60 04/20/2019 [facility] AT mL/min/1.7 4:56 PM LINE SUPERVISOR [address] 3m2 GFR, Est If >60 >60 04/20/2019 [facility] AT mL/min/1.7 4:56 PM LINE SUPERVISOR [address] Citizen Of [place] 3m2 Glucose 103 (H) 70 - 100 04/20/2019 [facility] mg/dL 4:56 PM LINE SUPERVISOR [address] Comment: The given reference range is fo r the fasting state. Non-fasting reference range for glucose is 70 - 180 mg/dL. Hours Fasting 5 04/20/2019 4:56 PM LINE SUPERVISOR [place] [facility] [address] Specimen Anatomical Collection Method / Collection Time Recei anisa Time (Source) Location / Volume Laterality Blood Venipuncture / 04/20/2019 4:31 04/20/2019 4:31 Unknown PM LINE SUPERVISOR PM LINE SUPERVISOR Narrative [facility] [address] - 04/20/2019 4:5 6 PM LINE SUPERVISOR The National Kidney Disease Education Pr ogram suggests measuring Cystatin C in patients with eGFRcrea of 45 to 59 ml/mi n/1.73^2 who do not have other markers of kidney damage (i.e. elevated urine Album in/Creatinine Ratio or a prior Cystatin C confirming the presence of chronic kidne y disease). Placido Ott MD LAB_1 Performing Organization Address City/[facility]/ZIP [facility] Phon [place] [facility] [address] [place], [place] [address] [facility] [address] [place], [place] [address], [facility] [phone] Vitamin B12 Only (04/20/2019 4:31 PM LINE SUPERVISOR) athologist Signature Vitamin B12 [phone] 04/20/2019 [facility] pg/mL 10:09 PM LINE SUPERVISOR [facility] Specimen Anatomical Collection Method / Collection Time Recei anisa Time (Source) Location / Volume Laterality Blood Venipuncture / 04/20/2019 4:31 04/20/2019 4:31 Unknown PM LINE SUPERVISOR PM LINE SUPERVISOR Placido Ott MD LAB_1 Performing Organization Address City/[facility] Phon e Number [facility] [address] [address] documented in this encounter Visit Diagnoses Diagnosis [...] Cough documented in this encounter Care Teams Hydraulic Jack Operator Relationship Specialty Start Date End Date Placido Ott MD PCP - General Internal Medicine 10/26/17 10/17/21 [address] [place] [address] documented as of this encounter
--- OUTSIDE RECORDS SUMMARY | 2022-04-08 12:11 | XMS_ITS | Encounter Summary ---
:1935 Author Organization [facility] Address [address] [address] Care Team Providers Name Role Phone Placido Ott MD Primary Care Provider Reason for Visit Reason Comments SKIN LESION Encounter Details Date Type Department Care Team Description 10/11/2018 Office Visit [facility] Sammy Cordero l erythema (Primary Dx); Beatriz Abraham MD Actinic keratosis of multiple sites of h ead and neck Practice [address] [place] [address] [place], [place] [phone] [address] Social History Tobacco Use Types Packs/Day Years [...] Body Mass Index 36.15 08/03/2018 11:14 AM CAKE KNOCKER documented in this encounter Patient Instructions Patient InstructionsStSammy rene MD - 10/11/2018 8:30 AM CDT Begin [...] 325 mg by mouth daily. ??? cyanocobalamin ([id number]) 1000 MCG/ML injection 1000 mcg weekly x [...] Provider Last Rate Last Dose ??? cyanocobalamin ([id number]) injection 1,000 mcg 1,000 mcg Intramuscular Other (See Comments) Placido Ott MD 1,000 mcg at 04/28/18 1513 Allergies Allergen Reactions ??? Excedrin Extra Strength [Oeiaauw-Bpwnsuhgmtycp-Scfdlvrx] Anaphylaxis ? ? Molds & Smuts Breathing [...] keratosis documented in this encounter Care Teams Sand Cutter Relationship Specialty Start Date End Date Placido Ott MD PCP - General Internal Medicine 10/26/17 10/17/[address] [place] [address] documented as of this encounter
--- OUTSIDE RECORDS SUMMARY | 2022-04-08 12:11 | XMS_ITS | Encounter Summary ---
:1935 Author Organization [facility] Address [address] [address] Care Team Providers Name Role Phone Placido Ott MD Primary Care Provider Encounter Details Date Type Department Care Team Description 11/30/2018 Refill Order RUST Placido Ott, [facility] [place] anjelica MURRAY [address] [place] [address] [address] [phone] [place], [place] [address] (Wo rk) Social History [...] as of this encounter Progress Notes Lorene Manley, AFTAB - 12/06/2018 1:58 PM CDT Lab ordered per refill standing order. Reminder letter sent. Lorene Manley CMA 12/06/2018, 1:58 PM documented in this encounter Nursing Notes Interface, Out [employer] Prov Query - 11/30/2018 11:38 AM CDT ORDER THE FOLLOWING: - COMPLETE BLOOD COUNT: Pended to encounter. SCHEDULE THE FOLLOWING: - COMPLETE BLOOD COUNT BY: Now (Due as of 09/10/2018 for multiple medications including allopurinol (ZYLOPRIM) 100 MG tablet) - LAST QUALIFYING VISIT IN [facility]: 10/11/2018 - NEXT SCHEDULED VISIT: None - NEXT LAB APPOINTMENT: None Powered by [employer], Reference: [id number], 11/30/2018 11:38:13 AM CDT, Pool: PETER JEFFERY RN ([id number]) Interface, Out [employer] Prov Query - 11/30/2018 11:38 AM CDT The following lab order(s) may be associated with the Result Note below: COMPLETE BLOOD COUNT-NO DIFF Notes Recorded by Deepika Arellano, RN on 09/15/2017 at 1:07 PM P:1. Obtain records' 2. Labs-UA, CBC, PSA (PSA may be elevated from infection) 3. Consider daily antibiotic when travels to reduce another testis infection 4. See Primary Care physician. 5. Call with lab tests.; this will dictate followup. Interface, Out [facility] Prov Query - 11/30/2018 11:38 AM CDT The following lab order(s) may be associated with the Result Note below: ALT (SGPT) Notes Recorded by Caryl Adnrew RN on 03/01/2018 at 8:00 AM Patient [...] Ott MD 02/26/2018 6:47 PM Interface, Out [employer] [facility] Prov Query - 11/30/2018 11:38 AM CDT [...] Complete Blood Count-No Diff (04/20/2019 4:31 PM GATHERING MACHINE SETTER) P athologist Signature WBC 7.7 3.5 - 10.5 04/20/2019 [facility] x10(9)/L 4:37 PM GATHERING MACHINE SETTER [address] RBC 5.02 4.32 - 04/20/2019 [facility] AT 5.72 4:37 PM GATHERING MACHINE SETTER [address] x10(12)/L Hemoglobin 15.6 13.5 - 04/20/2019 [facility] AT 17.5 g/dL 4:37 PM GATHERING MACHINE SETTER [address] HCT 48.1 38.8 - 04/20/2019 [facility] 50.0 % 4:37 PM GATHERING MACHINE SETTER [address] MCV 95.8 80.0 - 04/20/2019 [facility] 100.0 fL 4:37 PM GATHERING MACHINE SETTER [address] MCH 31.1 27.6 - 04/20/2019 [facility] 33.3 pg 4:37 PM GATHERING MACHINE SETTER [address] MCHC 32.4 31.5 - 04/20/2019 [facility] 35.2 g/dL 4:37 PM GATHERING MACHINE SETTER [address] RDW 13.6 11.9 - 04/20/2019 [facility] AT 15.5 % 4:37 PM GATHERING MACHINE SETTER [address] Platelets 178 150 - 450 04/20/2019 [facility] x10(9)/L 4:37 PM GATHERING MACHINE SETTER [address] Automated NRBC 0 <=0 /100 04/20/2019 [facility] WBC 4:37 PM GATHERING MACHINE SETTER [address] Specimen Anatomical Collection Method / Collection Time Recei anisa Time (Source) Location / Volume Laterality Blood Venipuncture / 04/20/2019 4:31 04/20/2019 4:31 Unknown PM GATHERING MACHINE SETTER PM GATHERING MACHINE SETTER Placido Ott MD LAB_1 Performing Organization Address City/State/ZIP Code Phon e Number [facility] [address] [place] [address] [facility] [address] [place], [place] [address], [facility] [phone] documented in this encounter Visit Diagnoses Diagnosis Encounter for long-term (current) use of medications - Primary Encounter for long-term (current) use of other medications documented in this encounter Care Teams Financial Institution Treasurer Relationship Specialty Start Date End Date Placido Ott MD PCP - General Internal Medicine 10/26/17 10/17/21 [address] [facility] [address] documented as of this encounter
--- OUTSIDE RECORDS SUMMARY | 2022-04-08 12:11 | XMS_ITS | Encounter Summary ---
:1935 Author Organization [facility] Address [address] [address] Care Team Providers Name Role Phone Placido Ott MD Primary Care Provider Encounter Details Date Type Department Care Team Description 07/10/2018 Telephone [facility] Do eleazar Feldman MD [facility] [address] [place] [address] [place] [address] [phone] Social History Tobacco Use Types Packs/Day Years [...] appt. Cristina Souza RN 07/14/2018, 2:33 PM H BLEACHING RANGE OPERATOR CHIEF Cristina Souza RN - 07/14/2018 2:26 PM CST Left message to call back & discuss w/ RN. Transfer to Cristina Neurology RN ext [phone]. Cristina Souza RN 07/14/2018, 2:27 PM H BLEACHING RANGE OPERATOR CHIEF Cristina Souza RN - 07/12/2018 1:27 PM CST Left message to call back & discuss w/ RN. Transfer to [facility] Neurology RN ext [phone]. Cristina Souza RN 07/12/2018, 1:27 PM H BLEACHING RANGE OPERATOR CHIEF Lianne Feldman MD - 07/10/2018 2:52 PM [...] months from now. Thanks. Lianne Feldman MD,Neurologist [facility] 07/10/2018, 2:52 PM H BLEACHING RANGE OPERATOR CHIEF documented in this encounter Plan of Treatment Not on filedocumented as of this encounter Visit Diagnoses Not on filedocumented in this encounter Care Teams Lobbyist Relationship Specialty Start Date End Date Placido Ott MD PCP - General Internal Medicine 10/26/17 10/17/21 [address] [place] [address] documented as of this encounter
--- OUTSIDE RECORDS SUMMARY | 2022-04-08 12:11 | XMS_ITS | Encounter Summary ---
:1935 Author Organization [facility] Address [address], [place] [address] Care Team Providers Name Role Phone Shelly Ott MD Primary Care Provider Reason for Visit Reason Comments Refill pravastatin (PRAVACHOL) 40 M G tablet [Pharmacy Med Name: PRAVASTATIN 40MG TABLETS] Encounter Details Date Type Department Care Team Description 01/13/2019 Refill [facility] Shelly Ott Re fill (pravastatin Beatriz Spence MD (PRAVACHOL) 40 MG Medicine [address] tablet [Pharmacy Med [address] [place] Name: PRAVASTATIN 40MG [place] [address] [place], [place] TABLETS]) [phone] [id number] Social History Tobacco Use Types Packs/Day Years [...] Triglycerides: 266 mg/dL on 10/28/2016 Powered by [employer], Reference: [id number], 01/13/2019 11:51:12 AM CDT, Pool: SMG REFILL RN ([id number]) Interface, Out [employer] Query - 01/13/2019 11:51 AM CDT The [...] (HRC) documented in this encounter Care Teams Palliative Care Nurse Practitioner Relationship Specialty Start Date End Date Shelly Ott MD PCP - General Internal Medicine 10/26/17 10/17/21 [address] [place] [address] documented as of this encounter
--- OUTSIDE RECORDS SUMMARY | 2022-04-08 12:11 | XMS_ITS | Encounter Summary ---
:1935 Author Organization [facility] Address [address] [address] Care Team Providers Name Role Phone Placido Ott MD Primary Care Provider Reason for Visit Reason Comments QUESTIONS, GENERAL lesion on nose Encounter Details Date Type Department Care Team Description 08/25/2018 Telephone [facility] Sammy Cordero, [facility] Pr anjelica Abraham MD (lesion on nose) [address] [place] [address] [address] [phone] [place] [address] Social History Tobacco Use Types Packs/Day Years [...] [place], [place] [phone]. Dunia Rodríguez LP09/08/2018, 2:04 PM Massiel Narvaez CMA - 09/03/2018 12:35 PM CDT Left message for patient to call back. Please have patient call extension [phone] to discuss. Massiel Narvaez CMA ................ 09/03/2018 12:36 PM Lizette Blair - 08/25/2018 9:51 AM CDT Miscellaneous Questions & FYIs [Fleece Tier/Appt Center: If this call is after 3 p.m., communicate to patient: If we are not able to get back to you by the end of the day and your symptoms worsen please contact the Careline at [phone] OR at .] What condition are you [...] to handle and not symptom based. ?? [SUPERVISOR PAINT DEPARTMENT/RMA/LPNs: Please call the patient to gather additional details, as needed] documented in this encounter Plan of Treatment Not on filedocumented as of this encounter Visit Diagnoses Not on filedocumented in this encounter Care Teams Special Procedures Tech Relationship Specialty Start Date End Date Placido Ott MD PCP - General Internal Medicine 10/26/17 10/17/21 [address] [place] [address] documented as of this encounter
--- OUTSIDE RECORDS SUMMARY | 2022-04-08 12:11 | XMS_ITS | Encounter Summary ---
:1935 Author Organization [facility] Address [address] [address] Care Team Providers Name Role Phone No Primary/Referring, Phy Primary Care Provider Unavailable Encounter Details Date Type Department Care Team Description 07/23/2018 Correspondence [facility] Waqas Rodney, [facility] [address] [place] [address] [place], [place] [phone] (Wo rk) Social History Tobacco Use Types [...] on filedocumented in this encounter Care Teams Electrical Technology Instructor Relationship Specialty Start Date End Date No Primary/Referring, Phy PCP - General 12/11/21 documented as of this encounter
--- OUTSIDE RECORDS SUMMARY | 2022-04-08 12:11 | XMS_ITS | Encounter Summary ---
:1935 Author Organization [facility] Address [address] [address] Care Team Providers Name Role Phone Placido Ott MD Primary Care Provider Reason for Visit Reason Comments Medication Questions Patient would like a prescri ption for antibiotics before leaving on a trip on 08-28-18 Encounter Details Date Type Department Care Team Description 08/25/2018 Telephone [facility] Waqas Rodney dication Questions Beatriz Griffith MD (Patient would like a [facility] [address] prescription for [address] [place] [address] [place], [place] leaving on a trip on [phone] 08-28-18) Social History Tobacco Use Types Packs/Day [...] patient who states he is leaving for [place] on 08/28 and returning 09/21. States that last year had an infection in testicle. 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 Rodney has always prescribed antibiotic. Uses [facility]. Please advise. Tania Calloway RN 08/25/2018, 10:54 AM Rosemarie Vasquez - 08/25/2018 9:26 AM CDT Miscellaneous Questions & FYIs [Breakdown Person/Appt Center: If this call is after 3 p.m., communicate to patient: If we are not able to get back to you by the end of the day and your symptoms worsen please contact the Careline at [phone] OR at .] What condition are you [...] to handle and not symptom based. ?? [PM HEAD COOK/RMA/LPNs: Please call the patient to gather additional details, as needed] documented in this encounter Plan of Treatment Not on filedocumented as of this encounter Visit Diagnoses Not on filedocumented in this encounter Care Teams Staff Combat Information Center Officer Relationship Specialty Start Date End Date Placido Ott MD PCP - General Internal Medicine 10/26/17 10/17/21 [address] [place] [address] documented as of this encounter
--- OUTSIDE RECORDS SUMMARY | 2022-04-08 12:11 | XMS_ITS | Encounter Summary ---
:1935 Author Organization [facility] Address [address], [place] [address] Care Team Providers Name Role Phone Placido Ott MD Primary Care Provider Encounter Details Date Type Department Care Team Description 08/11/2018 Office Visit [facility] Eileen Camejo Imbal ance (Primary Dx); [facility] PA-C Idiopathic peripheral neuropathy [address] [place] [address] [address] [place], [place] [phone] Social History Tobacco Use Types Packs/Day Years [...] Comments Blood Pressure 115/67 08/11/2018 10:48 AM ZINC MINER Pulse 85 08/11/2018 10:48 AM ZINC MINER Temperature - - Respiratory Rate - - Oxygen Saturation - - Inhaled Oxygen Concentration - - Weight 105 kg (231 lb 6.4 oz) 08/11/2018 10:48 AM ZINC MINER Height - - Body Mass Index 35.44 08/03/2018 11:14 AM ZINC MINER documented in this encounter Patient Instructions Patient [...] muscle strength and help build muscle control. Pgnn-prt-ywnkbzn medicine can relieve mild nerve pain. Your [...] invasive surgery can also help some patients. MINER documented in this encounter Progress Notes Eileen [...] 325 mg by mouth daily. ??? cyanocobalamin ([id number]) 1000 MCG/ML injection 1000 mcg weekly x [...] Provider Last Rate Last Dose ??? cyanocobalamin ([id number]) injection 1,000 mcg 1,000 mcg Intramuscular Other (See Comments) Placido tOt MD 1,000 mcg at 04/28/18 1513 Allergies for Zaid Rutledge Status Agent Date Noted Reaction Type Active EXCEDRIN EXTRA STRENGTH [MSQYNUC-DIUJASIPDTUMD-DFRXBFDC] 01/16/2016 Anaphylaxis Allergy Active MOLDS & SMUTS 04/28/2018 Breathing Difficulty Allergy Active BANANA 08/01/2013 Other, see comments Intolerance Active LEVAQUIN [LEVOFLOXACIN] 02/26/2018 Other, see comments Intolerance Social History Socioeconomic History ??? Marital status: Spouse name: Not on file ??? Number of children: Not on file ??? Years of education: Not on file ??? Highest education level: Not on file Occupational History ??? Occupation: [employer] Social Needs ??? Financial resource strain: Not [...] file Gets together: Not on file Attends uatsdin service: Not on file Active member of [...] Yes Comment: 100 % Social History Narrative [employer]. Review of Systems CONSTITUTIONAL: Negative EYES: no [...] a cogent history. 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 Fund of knowledge is normal [...] up. Eileen Camejo PA-C 08/11/2018, 2:19 PM MINER documented in this encounter Nursing Notes Amber Jasso LPN - 08/11/2018 10:30 AM CST Zaid Rutledge is a 83 y.o. old male here for EMG results follow up/headaches. Amber Jasso LPN 08/11/2018, 10:47 AM MINER documented in this encounter Plan of Treatment Not on filedocumented as of this encounter Visit Diagnoses Diagnosis Imbalance - Primary Abnormality of gait Idiopathic peripheral neuropathy Unspecified hereditary and idiopathic pe ripheral neuropathy documented in this encounter Care Teams Physician Practice Market Manager Relationship Specialty Start Date End Date Placido Ott MD PCP - General Internal Medicine 10/26/17 10/17/21 [address] [facility] [place] [id number] documented as of this encounter
--- OUTSIDE RECORDS SUMMARY | 2022-04-08 12:12 | XMS_ITS | Encounter Summary ---
:1935 Author Organization [facility] Address [address] [address] Care Team Providers Name Role Phone Placido Ott MD Primary Care Provider Reason for Visit Reason Comments Vitamin B12 Injection Encounter Details Date Type Department Care Team Description 03/29/2018 Nursing Visit [facility] Other vitamin B12 [place] Nursing deficiency anemia [address] (Primary Dx) [place] [address] Social History Tobacco Use Types Packs/Day [...] encounter Progress Notes Michaela Mcdowell LPN - 03/29/2018 9:07 AM CDT Zaid Rutledge here for Vitamin [...] Action Action Date Dose Rate Site cyanocobalamin ([id number]) Given 04/28/2018 3:13 PM 1,000 mcg Left Deltoid injection 1,000 mcg CHIEF MARKETING OFFICER 1,000 mcg, Intramuscular, OTHER, Starting on 03/01/18 at 0934, Until Discontinued, For 9 doses, . Given 03/29/2018 9:01 AM CDT 1,000 mcg Right Deltoid Given 03/22/2018 9:12 AM CDT 1,000 mcg Left Deltoid documented in this encounter Care Teams Punch Card Operator Relationship Specialty Start Date End Date Placido Ott MD PCP - General Internal Medicine 10/26/17 10/17/21 [address] [place] [address] documented as of this encounter
--- OUTSIDE RECORDS SUMMARY | 2022-04-08 12:12 | XMS_ITS | Encounter Summary ---
:1935 Author Organization [facility] Address [address] [address] Care Team Providers Name Role Phone Placido Ott MD Primary Care Provider Reason for Visit Reason Comments Establish Care Encounter Details Date Type Department Care Team Description 11/13/2017 Office Visit [facility] Placido Ott al stenosis, lumbar region, without neurogenic claudication (Primary Dx); Beatriz Spence MD Irritable bowel syndrome, unspecified ty pe; Medicine [address] Mild persistent asthma witho ut complication; [address] Gastroesophageal reflux disease, esophag itis presence not specified; [place] Essential h ypertension [address] [phone] Social History Tobacco Use Types Packs/Day Years [...] ?? To avoid unexpected costs, call our [facility] at [phone] before scheduling an appointment. They can help you decide if your Shingrix vaccination is covered at a clinic or if you are covered at a pharmacy. ?? If you have no insurance for immunizations, Public Health may be able to give them at a low cost.Call to see if you qualify and to make an appointment. [facility] ?? [phone] to see if you qualify ?? [phone] for appointment [facility] ?? [phone] for appointment and information . documented in [...] on Flonase. He does see an outside boat engines installer. I have personally reviewed the patient's allergies, medications, past medical history, problem list, lab results and health maintenance record in detail and updated the patient record as necessary. 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 [...] Basic Metabolic Panel (11/13/2017 10:40 AM CDT) [facility] Method Time Signature Sodium 142 136 - [...] - 11/13/2017 11:34 AM CDT Performed at [place] at [facility], [address] [place] [address] Placido Ott MD LAB_1 Performing Organization Address City/State/ZIP Code Phon e Number [facility] [phone] documented in this encounter Visit Diagnoses Diagnosis Spinal stenosis, lumbar region, without neurogenic claudication - Primary Irritable bowel syndrome, unspecified ty pe Mild persistent asthma without complicat ion (HRC) Unspecified asthma Gastroesophageal reflux disease, esophag itis presence not specified Essential hypertension (HRC) Unspecified essential hypertension documented in this encounter Care Teams Property Portfolio Officer Relationship Specialty Start Date End Date Placido Ott MD PCP - General Internal Medicine 10/26/17 10/17/21 [address] [place] [address] documented as of this encounter
--- OUTSIDE RECORDS SUMMARY | 2022-04-08 12:12 | XMS_ITS | Encounter Summary ---
:1935 Author Organization [facility] Address [address] [place] [address] Care Team Providers Name Role Phone No Primary/Referring, Phy Primary Care Provider Unavailable Reason for Visit Reason Comments Refill Encounter Details Date Type Department Care Team Description 12/03/2017 Nurse Triage Careline Unassigned, Provider Refill [address] [place], [place] [address] [address] [place] [address] Social History Tobacco Use Types Packs/Day Years [...] Quinn RN - 12/03/2017 7:29 PM CDT Patient/resident care spec request: Input needed Medication Specific Request: See [...] per unit policy Protocols used: MEDICATION QUESTION [id number] Plan: Pravastatin 30 day/no refills ordered per standing order and sent to [facility] Advised patient/caller to call back CareLine if symptoms get worse or if you have any further questions or concerns. The CareLine is available 05/01. Lenka Quinn RN 12/03/2017, 7:58 PM Mine Carroll - 12/03/2017 7:17 PM CDT Verified patient identity using three identifiers: Yes Caller's relationship to patient: Self At which care system or clinic is the patient normally seen? [facility] Medication Questions/New Med Request/ Side Effects [...] on filedocumented in this encounter Care Teams Ap Processor Relationship Specialty Start Date End Date No Primary/Referring, [place] PCP - General 12/11/21 documented as of this encounter
--- OUTSIDE RECORDS SUMMARY | 2022-04-08 12:12 | XMS_ITS | Encounter Summary ---
:1935 Author Organization [facility] Address [address] [place] [address] Care Team Providers Name Role Phone Placido Ott MD Primary Care Provider Reason for Referral Consult/Transfer Care (Routine) - Closed Specialty Diagnoses / Procedures Referred By Contact Refer red To Contact Diagnoses Essential hypertension (HRC) Placido Ott MD [address] [place] [address] Referral ID Status Reason Start Date Expiration Date Visits Requ ested Visits Authorized [id number] Closed 05/28/2018 08/27/2019 1 1 Scheduling Instructions Your provider has recommended an appoint ment with [facility]. A mill order scheduler will contact you to assist you in setting up this appointment, or you may call [phone] to schedule your appoi ntment. SYSTEM OPERATOR Reason for Visit Reason Comments BP CHECK,NURSE Encounter Details Date Type Department Care Team Description 05/27/2018 Telephone [facility] Placido Ott, BP CHECK,NURSE [facility] [address] [place] [address] [address] [phone] [place], [place] [address] (Wo rk) Social History [...] be seen. Aleksandra Hinojosa CMA 05/27/2018, 4:45PM SYSTEM OPERATOR documented in this encounter Plan of Treatment Scheduled Referrals Name Type Priority Associated Diagnoses Order S chedule Hypertension Follow Up Referral Routine Essential hyperten adore Ordered: 05/28/2018 ([id number]) documented as of this encounter Visit Diagnoses Diagnosis Essential hypertension (HRC) - Primary Unspecified essential hypertension documented in this encounter Care Teams Logging Superintendent Relationship Specialty Start Date End Date Placido Ott MD PCP - General Internal Medicine 10/26/17 10/17/21 [address] [place] [address] documented as of this encounter
--- OUTSIDE RECORDS SUMMARY | 2022-04-08 12:12 | XMS_ITS | Encounter Summary ---
:1935 Author Organization [facility] Address [address], [place] [address] Care Team Providers Name Role Phone No Primary/Referring, Phy Primary Care Provider Unavailable Encounter Details Date Type Department Care Team Description 09/15/2017 Correspondence [facility] Waqas Rodney [facility] [place] Edson Griffith MD [facility] [address] [place] [address] [place], [place] [phone] Social History Tobacco Use Types Packs/Day Years [...] on filedocumented in this encounter Care Teams General Farmer Relationship Specialty Start Date End Date No Primary/Referring, Phy PCP - General 12/11/21 documented as of this encounter
--- OUTSIDE RECORDS SUMMARY | 2022-04-08 12:12 | XMS_ITS | Encounter Summary ---
:1935 Author Organization [facility] Address [address] [address] Care Team Providers Name Role Phone Placido Ott MD Primary Care Provider Reason for Visit Reason Comments Vitamin B12 Injection Encounter Details Date Type Department Care Team Description 04/28/2018 Nursing Visit [facility] Other vitamin B12 [place] Nursing deficiency anemia [address] (Primary Dx) [place] [address] Social History Tobacco Use Types Packs/Day [...] as of this encounter Progress Notes Anna Wong, PATIENT ASSESSMENT COORDINATOR - 04/28/2018 3:00 PM CST Zaid Rutledge here for Vitamin B-12 Injection. Ordered per pcp. See orders. patient verbalized understanding of risks, possible side effects, and benefits of the injection and gave permission to administer Vitamin B 12. No precautions or contraindications noted. Tolerated injection well. See immunization/injection report for administration documentation. Anna Wong CMA KBOOKS BOOKKEEPER documented in this encounter Plan of Treatment Not on filedocumented as of this encounter Visit Diagnoses Diagnosis Other vitamin B12 deficiency anemia - Pr imary documented in this encounter Administered Medications Active Administered Medications - up to 3 most recent administrations Medication Order MAR Action Action Date Dose Rate Site cyanocobalamin ([id number]) Given 04/28/2018 3:13 PM 1,000 mcg Left Deltoid injection 1,000 mcg QUICKBOOKS BOOKKEEPER 1,000 mcg, Intramuscular, OTHER, Starting on 03/01/18 at 0934, Until Discontinued, For 9 doses, . Given 03/29/2018 9:01 AM CDT 1,000 mcg Right Deltoid Given 03/22/2018 9:12 AM CDT 1,000 mcg Left Deltoid documented in this encounter Care Teams Spine Supervisor Relationship Specialty Start Date End Date Placido Ott MD PCP - General Internal Medicine 10/26/17 10/17/21 [address] [place] [address] documented as of this encounter
--- OUTSIDE RECORDS SUMMARY | 2022-04-08 12:12 | XMS_ITS | Encounter Summary ---
:1935 Author Organization [facility] Address [address] [address] Care Team Providers Name Role Phone Placido Ott MD Primary Care Provider Reason for Visit Reason Comments Refill omeprazole (PRILOSEC) 20 MG capsule [Pharmacy Med Name: OMEPRAZOLE 20MG CAPSULES] Encounter Details Date Type Department Care Team Description 01/02/2018 Refill [facility] Iván Eid Ref ill (omeprazole [facility] [place] (PRILOSEC) 20 MG [address] capsule [place] [address] [address] Name: OMEPRAZOLE 20MG [phone] [place], [place] CAPSULES]) [address] (Wo rk) Social History Tobacco Use Types [...] Rehman RN 01/02/2018, 7:36 PM Interface, Out Gyst Query - 01/02/2018 10:59 AM CDT omeprazole [...] (changed but equivalent) Age: 82 Powered by [employer], Reference: [id number], 01/02/2018 10:59:14 AM CDT, Pool: [facility] REFILL RN ([id number]) documented in this encounter Plan of Treatment Not on filedocumented as of this encounter Visit Diagnoses Not on filedocumented in this encounter Care Teams Pattern Grader Supervisor Relationship Specialty Start Date End Date Placido Ott MD PCP - General Internal Medicine 10/26/17 10/17/21 [address] [place] [address] documented as of this encounter
--- OUTSIDE RECORDS SUMMARY | 2022-04-08 12:12 | XMS_ITS | Encounter Summary ---
:1935 Author Organization [facility] Address [address], [place] [address] Care Team Providers Name Role Phone Placido Ott MD Primary Care Provider Encounter Details Date Type Department Care Team Description 01/02/2018 Refill Order [facility] Pr anjelica Rose DO [address] [place] [address] [address] [phone] [place], [place] [address] (Wo rk) Social History Tobacco Use Types [...] this encounter Progress Notes Shruthi Alcantar - 01/05/2018 1:01 PM CDT Note made on PVP for upcoming appt. Shruthi Alcantar CMA 01/05/2018 1:01 PM documented in this encounter Nursing Notes Interface, Out Crowdx Prov Query - 01/02/2018 10:59 AM CDT [...] - NEXT LAB APPOINTMENT: None Powered by [employer], Reference: [id number], 01/02/2018 10:59:15 AM CDT, Pool: PETER JEFFERY RN ([id number]) documented in this encounter Plan of Treatment Not on filedocumented as of this encounter Visit Diagnoses Diagnosis Encounter for long-term (current) use of medications - Primary Encounter for long-term (current) use of other medications documented in this encounter Care Teams Coal Cutting Machine Operator Relationship Specialty Start Date End Date Placido Ott MD PCP - General Internal Medicine 10/26/17 10/17/21 [address] [place] [address] documented as of this encounter
--- OUTSIDE RECORDS SUMMARY | 2022-04-08 12:12 | XMS_ITS | Encounter Summary ---
:1935 Author Organization [facility] Address [address], [place] [address] Care Team Providers Name Role Phone Iván Eid DO Primary Care Provider [phone] Reason for Visit Reason Comments Refill allopurinol (ZYLOPRIM) 100 M G tablet [Pharmacy Med Name: ALLOPURINOL 100MG TABLETS] Encounter Details Date Type Department Care Team Description 10/22/2017 Refill [facility] Iván Eid Ref ill (allopurinol [facility] actice DO [place] (ZYLOPRIM) 100 MG [address] tablet [[place] [address] [address] Name: ALLOPURINOL [phone] [place], [place] [address] TABL ETS]) [address] (Wo rk) Social History Tobacco Use Types [...] Endocrinology: Gout Agents - Allopurinol -> GFR ([place]) was found, but the result could not be read. -> Refill x 3 months (courtesy refill, overdue for a(n) Cr check and GFR ([place]) check) Last qualifying visit: 12/29/2016 (with IVÁN EID) Next scheduled visit: None Last ordered by IVÁN EID: 01/30/2017 (265 days ago) QTY: 90, Refills: 2, Sig: take 1 tablet by mouth every day (unchanged) Cr: 1.08 mg/dL on 10/08/2016 ALT: 31 U/L on 10/28/2016 HGB: 15.1 g/dL on 09/15/2017 GFR ([place]): Taken on 10/08/2016 HCT: 44.7 % on 09/15/2017 Age: 82 PLT: 243 k/cmm on 09/15/2017 RBC: 4.88 m/cmm on 09/15/2017 RDW: 13.5 % on 09/15/2017 WBC: 7.3 k/cmm on 09/15/2017 Powered by [employer], Reference: [id number], 10/22/2017 10:04:03 AM CDT, Pool: PETER JEFFERY RN ([id number]) Interface, Out SureAURSOS Prov Query - 10/22/2017 10:04 AM CDT [...] neurology on Thursday as planned. Interface, Out Pure360 Prov Query - 10/22/2017 10:04 AM CDT The following lab order(s) may be associated with the Result Note below: ALT (SGPT) Notes Recorded by Waqas Rodney MD on 10/28/2016 at 4:49 PM ifnorm PSA stable (actually lowest it has been in years). Good news. PSA twice a year. Interface, Out SureFTBproriTake the Interview Prov Query - 10/22/2017 10:04 AM CDT [...] on filedocumented in this encounter Care Teams Kier Pleater Relationship Specialty Start Date End Date Iván Eid DO PCP - General Family Practice 10/02/16 10/25/17 [address] [place], [place] [address] documented as of this encounter
--- OUTSIDE RECORDS SUMMARY | 2022-04-08 12:12 | XMS_ITS | Encounter Summary ---
:1935 Author Organization [facility] Address [address] [address] Care Team Providers Name Role Phone Placido Ott MD Primary Care Provider Encounter Details Date Type Department Care Team Description 11/13/2017 Notes/Orders [facility] Placido Ott lergic rhinitis, Beatriz Spence MD unspecified Medicine [address] seasonality, [address] unspecified trigger [place], [place] (Primary Dx ) [address] [phone] Social History Tobacco Use Types Packs/Day Years [...] Primary documented in this encounter Care Teams Engineering Operator Relationship Specialty Start Date End Date Placido Ott MD PCP - General Internal Medicine 10/26/17 10/17/21 [address] [place] [address] documented as of this encounter
--- OUTSIDE RECORDS SUMMARY | 2022-04-08 12:12 | XMS_ITS | Encounter Summary ---
:1935 Author Organization [facility] Address [address] [address] Care Team Providers Name Role Phone Shelly Ott MD Primary Care Provider Reason for Visit Reason Comments Refill allopurinol (ZYLOPRIM) 100 M G tablet [Pharmacy Med Name: ALLOPURINOL 100MG TABLETS] Encounter Details Date Type Department Care Team Description 03/03/2018 Refill [facility] Shelly Ott Re fill (allopurinol [facility] anjelica Spence MD (ZYLOPRIM) 100 MG [address] tablet [[place] [address] [address] Name: ALLOPURINOL 100MG [phone] [place], [place] TABLETS]) [address] Social History Tobacco Use Types Packs/Day Years [...] Endocrinology: Gout Agents - Allopurinol -> GFR ([place]) was found, but the result could not [...] 02/26/2018 HGB: 15.1 g/dL on 09/15/2017 GFR ([place]): Taken on 02/26/2018 HCT: 44.7 % on 09/15/2017 Age: 82 PLT: 243 k/cmm on 09/15/2017 RBC: 4.88 m/cmm on 09/15/2017 RDW: 13.5 % on 09/15/2017 WBC: 7.3 k/cmm on 09/15/2017 Powered by [employer], Reference: [id number], 03/03/2018 2:34:31 PM CDT, Pool: PETER JEFFERY RN ([id number]) Interface, Out [employer] Query - 03/03/2018 2:34 PM CDT The [...] tests.; this will dictate followup. Interface, Out [employer] Query - 03/03/2018 2:34 PM CDT The [...] on filedocumented in this encounter Care Teams Guard Immigration Relationship Specialty Start Date End Date Shelly Ott MD PCP - General Internal Medicine 10/26/17 10/17/21 [address] [place] [address] documented as of this encounter
--- OUTSIDE RECORDS SUMMARY | 2022-04-08 12:12 | XMS_ITS | Encounter Summary ---
:1935 Author Organization [facility] Address [address], [place] [address] Care Team Providers Name Role Phone Placido Ott MD Primary Care Provider Reason for Visit Reason Comments BP CHECK,NURSE Consult/Transfer Care (Routine) - Closed Specialty Diagnoses / Procedures Referred By Contact Refer red To Contact Diagnoses Essential hypertension (HRC) Placido Ott MD [address] [place] [address] Referral ID Status Reason Start Date Expiration Date Visits Requ ested Visits Authorized [id number] Closed 05/28/2018 08/27/2019 1 1 Encounter Details Date Type Department Care Team Description 06/22/2018 Nursing Visit [facility] Jovan deiz [place] Internal hyperten adore (Primary Medicine Dx) [address] [place] [address] Social History Tobacco Use Types Packs/Day [...] Comments Blood Pressure 132/72 06/22/2018 2:02 PM TEST ENGINEERING INTERN Pulse 84 06/22/2018 2:02 PM TEST ENGINEERING INTERN Temperature - - Respiratory Rate - [...] Always place hypertension order) Kayla Wade CMA ENGINEERING INTERN documented in this encounter Plan of Treatment Not on filedocumented as of this encounter Visit Diagnoses Diagnosis Screening for hypertension - Primary documented in this encounter Care Teams Machine Feeder Raw Stock Relationship Specialty Start Date End Date Placido Ott MD PCP - General Internal Medicine 10/26/17 10/17/[address] [place] [address] documented as of this encounter
--- OUTSIDE RECORDS SUMMARY | 2022-04-08 12:12 | XMS_ITS | Encounter Summary ---
:1935 Author Organization [facility] Address [address], [place] [address] Care Team Providers Name Role Phone Kali Morgan Rose Primary Care Provider [phone] Reason for Visit Reason Comments RESULTS, TEST UA Encounter Details Date Type Department Care Team Description 09/16/2017 Telephone [facility] Waqas Rodney TEST (UA) [facility] MD [facility] [address] [place] [address] [place], [place] [phone] Social History Tobacco Use Types Packs/Day Years [...] on filedocumented in this encounter Care Teams Playground Supervisor Relationship Specialty Start Date End Date Morgan Bass DO PCP - General Family Practice 10/02/16 10/25/17 [address] [place] [address] documented as of this encounter
--- OUTSIDE RECORDS SUMMARY | 2022-04-08 12:12 | XMS_ITS | Encounter Summary ---
:1935 Author Organization [facility] Address [address] [place] [address] Care Team Providers Name Role Phone Placido Ott MD Primary Care Provider Reason for Referral Procedure/Equipment (Routine) - Closed Specialty Diagnoses / Procedures Referred By Contact Refer red To Contact Diagnoses Abnormality of gait due to impairment of balance Lianne Feldman MD [address] [facility] [id number] Referral ID Status Reason Start Date Expiration Date Visits Requ ested Visits Authorized [id number] Closed 05/27/2018 08/26/2019 1 1 Scheduling Instructions Your provider has recommended an appoint ment with a [facility] Specialist. You may call [phone] to schedule your appointment. If you prefer, a dicer machine operator will contact you within the ne xt 3 business days to assist you in setting up this appointment. We suggest you call your health insurance company about your coverage and benefits for this appointme nt. UM CURATOR Reason for Visit Reason Comments WEAKNESS results Encounter Details Date Type Department Care Team Description 05/27/2018 Office Visit [facility] Lianne Feldman Flush ing reaction (Primary Dx); Beatriz Neurology MD Michaela Abnormality of gait due to impairment of balance; [address] Impaired joint position sens e; [place] [id number] [id number] Decreased peripheral vibratory sense [phone] [place] [id number] Social History Tobacco Use Types Packs/Day Years [...] Comments Blood Pressure 150/82 05/27/2018 4:38 PM MUSEUM CURATOR Pulse 73 05/27/2018 4:38 PM MUSEUM CURATOR Temperature - - Respiratory Rate - - [...] if at all possible. Otherwise please call [phone] for an appointment. ?? Due to high [...] community. Medications - Our pharmacies, both the [facility] here at [facility] and [facility] are great places to get your meds. [...] upright ?? walk on the rocks of [facility] [place] ?? keep our balance on the bus if it starts moving before we get to our seat ?? hold our body upright on the [place] at the [facility] ?? lean over to picker operator the newspaper and stand up straight again [...] blindfolds you before you get off the Xjgi[place]k-Kgdc[place] (which has now played tricks on your inner ear / vestibular system), then it's really really hard to walk across the fairgrounds without falling down. 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 UM CURATOR documented in this encounter Progress Notes Lianne Feldman MD - 05/27/2018 3:15 PM CST NEUROLOGY FOLLOW-UP VISIT 05/27/2018 PATIENT: Zaid Rutledge Background Please note this document was either typed by me or prepared with voice recognition software which may result in multiple types of errors. Please contact me if clarification is needed. [phone]. Today's visit is with neurologist Lianne Feldman MD, [facility] Primary care doctor: Placido Ott MD Cc: - Zaid Rutledge is a 83 y.o. old male who returns today for neurological followup. 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 He was seen [...] a brain-wave test called an EEG at [facility] EEG /Neurology Department. [phone] is the phone number to make the [...] Feldman MD 05/27/2018 Lianne Feldman MD, Neurologist, [facility], [facility] [address] [place] [address] Clinic number [phone] INTERVAL HISTORY 05/27/2018 05/27/2018 Spells: Has not had EEG. He read up on EEGs, does not want to joepardize his drivers license. I counseled him that any findings on the EEG would not jeopardize his drivers license, its the nature of the spell itself. I further counseled them on the process we use for reporting, in that the physicians and [place] are not responsible for reporting to the [...] and hadn't eaten, just flown back from [place]. The other spell he can think of [...] in therapy for back and balance, at [facility]. Balance is concerning him. In 2018 he had another episode where suddenly he was conscious but felt extremrly nauseous, felt like passing out, was sweating, and knew if he got up he would fall. He did not go to ED. They returned from their vacation at [place], spent a few weeks there. He got a testicular infection, called Dr. Osiel rodriguez for Rx (August 2017), toook meds presccribed. He's using catheters and gets with some regularity. Took the abx, seemed to get worse. Was advised when he got to [place] to go to ED or to a urologist. Went to ED in [place], lots of tests, lots of doctors; advised to stay due to urosepsis. He really didn't want to stay. He really did not want to be admitted, called Darinel, and Darinel agreed to another stronger abx, then he left [place]. He did get better, was able to [...] another spell, was sitting in LR by [employer] reading the paper, got double vision, like [...] The whole evening he didn't feel well. [place] like whoof, you've been through a lot. [...] factors, especially the stenosis of the left FAMILY CASEWORKER branch. Discussed this as risk factor, and [...] Testing you will need: ?? Need an parking cashier lab appointment so you can come in [...] 325 mg by mouth daily. ??? cyanocobalamin ([id number]) 1000 MCG/ML injection 1000 mcg weekly x [...] Provider Last Rate Last Dose ??? cyanocobalamin ([id number]) injection 1,000 mcg 1,000 mcg Intramuscular Other (See Comments) Placido Ott MD 1,000 mcg at 04/28/18 1513 Allergies Allergen Reactions ??? Excedrin Extra Strength [Ffuujof-Jwdqbmkpcxzuq-Fxtmffts] Anaphylaxis ? ? Molds & Smuts Breathing [...] 11/16/2016 Overview Note: Right side, branches of FAMILY CASEWORKER. High intensity statin therapy indicated for stroke prevention. ??? 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 MRA shows right FAMILY CASEWORKER branch stenosis. Increased ASA to 325 mg [...] Not on file Occupational History ??? 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 Smoking status: Former Smoker [...] Yes Comment: 100 % Social History Narrative Physical Therapy Coordinator. GENERAL PHYSICAL and NEURLOGICAL EXAMINATION BP (!) [...] Lianne Rueda MD, Neurologist End note 05/27/2018 UM CURATOR documented in this encounter Nursing Notes Shweta Louis - 05/27/2018 3:15 PM CST Zaid Rutledge is a 83 y.o. old male here for results. Shweta Louis 05/27/2018, 3:08 PM UM CURATOR documented in this encounter Plan of Treatment Scheduled Referrals Name Type Priority Associated Diagnoses Order S chedule Emg-Electromyography Referral Routine Abnormality of gait due to Ordered: 05/27/2018 Adult impairment of balance documented as of this encounter Results Immunofixation, Serum (Immuno ELP) (06/22/2018 2:07 PM MUSEUM CURATOR) Component Value Ref Test Analysis Performed At [email or web address] Range Method Time Signature Immunofixation No monoclonal HPMG protein is LABORATORIES detectable. Signed out by [facility] Laboratory Specimen Anatomical Collection Method Collection Time Receive d Time (Source) Location / / Volume Laterality 06/22/2018 2:07 PM 9 2:34 MUSEUM CURATOR PM MUSEUM CURATOR Narrative [facility] - 06/23/2018 11:50 AM MUSEUM CURATOR Performed at [facility], [address] [place] [address] ??[id number] Lianne Feldman MD LAB_1 Performing Organization Address City/State/ZIP Code Phon e Number [facility] [place] [facility] [phone] Protein ELP (Serum) (06/22/2018 2:07 PM MUSEUM CURATOR) Component Value Ref Test Analysis Performed At [email or web address] Range Method Time Signature Total Protein 7.0 [...] detectable in the serum. Signed out by [facility] Laboratory Specimen Anatomical Collection Method Collection Time Receive d Time (Source) Location / / Volume Laterality 06/22/2018 2:07 PM 9 2:34 MUSEUM CURATOR PM MUSEUM CURATOR Narrative [facility] [place] [facility] - 06/23/2018 2:[address] Performed at [facility], [address] ??[id number] Lianne Feldman MD LAB_1 Performing Organization Address City/State/ZIP Code Phon e Number [facility] [place] [facility] [phone] documented in this encounter Visit Diagnoses Diagnosis Flushing reaction - Primary [place] Abnormality of gait due to impairment of balance Impaired joint position sense Decreased peripheral vibratory sense Disturbance of skin sensation Impaired joint position sense Decreased peripheral vibratory sense Disturbance of skin sensation Flushing reaction Flushing documented in this encounter Care Teams Critical Care Unit Nurse Relationship Specialty Start Date End Date Placido Ott MD PCP - General Internal Medicine 10/26/17 10/17/21 [address] [place] [address] documented as of this encounter
--- OUTSIDE RECORDS SUMMARY | 2022-04-08 12:12 | XMS_ITS | Encounter Summary ---
:1935 Author Organization [facility] Address [address] [address] Care Team Providers Name Role Phone Placido Ott MD Primary Care Provider Encounter Details Date Type Department Care Team Description 02/26/2018 Notes/Orders [facility] Placido Ott [facility] Beatriz Spence MD deficiency (Primary Medicine [address]x) [address] [place] [address] [phone] Social History Tobacco Use Types Packs/Day Years [...] deficiencies documented in this encounter Care Teams Instructor Private Relationship Specialty Start Date End Date Placido Ott MD PCP - General Internal Medicine 10/26/17 10/17/21 [address] [place] [address] documented as of this encounter
--- OUTSIDE RECORDS SUMMARY | 2022-04-08 12:12 | XMS_ITS | Encounter Summary ---
:1935 Author Organization [facility] Address [address] [place] [address] Care Team Providers Name Role Phone Placido Ott MD Primary Care Provider Encounter Details Date Type Department Care Team Description 06/22/2018 Lab Visit [facility] Impair ed joint position sense; [facility] Decreased peripheral vibrato ry sense; [address] [place] [address] Social History Tobacco Use Types Packs/Day [...] as of this encounter Progress Notes Cristina Souza, RN - 06/22/2018 2:00 PM CST Message below sent to pts online account. Cristina Souza RN 06/23/2018, 3:42 PM Normal labs. EULOGIO Evans ING SUPERVISOR documented in this encounter Plan of Treatment Not on filedocumented as of this encounter Procedures Procedure Name Priority Date/Time Associated Diagnosis Comme nts PROTEIN ELP (SERUM) Routine 06/22/2018 2:07 PM Impaired joint Results for this LOADING SUPERVISOR position sense procedure are in Decreased peripheral the res ults vibratory sense section. IMMUNOFIXATION, Routine 06/22/2018 2:07 PM Impaired joint Resu lts for this SERUM (IMMUNO ELP) LOADING SUPERVISOR position sens e procedure are in Decreased peripheral the res ults vibratory sense section. documented in this encounter Results Protein ELP (Serum) (06/22/2018 2:07 PM LOADING SUPERVISOR) Component Value Ref Test Analysis Performed At [facility] Method Time Signature Total Protein 7.0 6.4 [...] the serum. Signed out by [facility] Laboratory Specimen Anatomical Collection Method Collection Time Receive d Time (Source) Location / / Volume Laterality 06/22/2018 2:07 PM 9 2:34 LOADING SUPERVISOR PM LOADING SUPERVISOR Narrative [facility] - 06/23/2018 2:[address] [facility], [address] ??[id number] Lianne Feldman MD LAB_1 Performing Organization Address City/State/ZIP Code Phon e Number [facility] [phone] Immunofixation, Serum (Immuno ELP) (06/22/2018 2:07 PM LOADING SUPERVISOR) Component Value Ref Test Analysis Performed At [facility] Method Time Signature Immunofixation No monoclonal HPMG protein is LABORATORIES detectable. Signed out by [facility] Laboratory Specimen Anatomical Collection Method Collection Time Receive d Time (Source) Location / / Volume Laterality 06/22/2018 2:07 PM 9 2:34 LOADING SUPERVISOR PM LOADING SUPERVISOR Narrative [facility] - 06/23/2018 11:50 AM LOADING SUPERVISOR Performed at [facility], [address] [place] [address] ??[id number] Lianne Feldman MD LAB_1 Performing Organization Address City/State/[facility] Code Phon e Number [facility] [phone] documented in this encounter Visit Diagnoses Diagnosis Impaired joint position sense Decreased peripheral vibratory sense Disturbance of skin sensation Flushing reaction Flushing documented in this encounter Care Teams Data Entry Assistant Relationship Specialty Start Date End Date Placido Ott MD PCP - General Internal Medicine 10/26/17 10/17/21 [address] [place] [address] documented as of this encounter
--- OUTSIDE RECORDS SUMMARY | 2022-04-08 12:12 | XMS_ITS | Encounter Summary ---
:1935 Author Organization [facility] Address [address] [place] [address] Care Team Providers Name Role Phone No Primary/Referring, [place] Primary Care Provider Unavailable Encounter Details Date Type Department Care Team Description 09/16/2017 Scanned History External to Transferred Record, [facility] Social History Tobacco Use Types Packs/Day [...] on filedocumented in this encounter Care Teams Lease Analyst Relationship Specialty Start Date End Date No Primary/ReferringAugusta PCP - General 12/11/21 documented as of this encounter
--- OUTSIDE RECORDS SUMMARY | 2022-04-08 12:12 | XMS_ITS | Encounter Summary ---
:1935 Author Organization [facility] Address [address], [place] [address] Care Team Providers Name Role Phone Placido Ott MD Primary Care Provider Reason for Visit Reason Comments Refill allopurinol (ZYLOPRIM) 100 M G tablet [Pharmacy Med Name: ALLOPURINOL 100MG TABLETS] Encounter Details Date Type Department Care Team Description 01/31/[facility] Iv[facility] Ref ill (allopurinol [facility] actice DO [place] (ZYLOPRIM) 100 MG [address] tablet [[place] [address] [address] Name: ALLOPURINOL [phone] [place], [place] [address] TABL ETS]) [address] (Wo rk) Social History Tobacco Use Types [...] of this encounter Nursing Notes Michaela Cerda, RN - 02/01/2018 3:04 PM CDT 30 day [...] ago, required every 12 months) -> GFR ([place]) was found, but the result could not be read. Last qualifying visit: 11/13/2017 (in INTERNAL MEDICINE) Next scheduled visit: 02/26/2018 (in INTERNAL MEDICINE) Last ordered by IVÁN EID: 10/23/2017 (100 days ago) QTY: 90, Refills: 0, Sig: take 1 tablet by mouth every day (unchanged) Cr: 1.21 mg/dL on 11/13/2017 ALT: 31 U/L on 10/28/2016 HGB: 15.1 g/dL on 09/15/2017 GFR ([place]): Taken on 11/13/2017 HCT: 44.7 % on 09/15/2017 Age: 82 PLT: 243 k/cmm on 09/15/2017 RBC: 4.88 m/cmm on 09/15/2017 RDW: 13.5 % on 09/15/2017 WBC: 7.3 k/cmm on 09/15/2017 Powered by [employer], Reference: [id number], 01/31/2018 2:42:38 PM CDT, Pool: PETER JOSE D KRISHNAN ([id number]) Interface, Out The 19th Floor Query - 01/31/2018 2:42 PM CDT The following lab order(s) may be associated with the Result Note below: ALT (SGPT) Notes Recorded by Waqas Rodney MD on 10/28/2016 at 4:49 PM ifnorm PSA stable (actually lowest it has been in years). Good news. PSA twice a year. Interface, Out The 19th Floor Query - 01/31/2018 2:42 PM CDT The [...] tests.; this will dictate followup. Interface, Out The 19th Floor Query - 01/31/2018 2:42 PM CDT The [...] on filedocumented in this encounter Care Teams Crust Sorter Relationship Specialty Start Date End Date Placido Ott MD PCP - General Internal Medicine 10/26/17 10/17/21 [address] [place] [address] documented as of this encounter
--- OUTSIDE RECORDS SUMMARY | 2022-04-08 12:12 | XMS_ITS | Encounter Summary ---
:1935 Author Organization [employer] Address [address], [place] [address] Care Team Providers Name Role Phone Placido Ott MD Primary Care Provider Reason for Referral Procedure/Equipment (Routine) - Closed Specialty Diagnoses / Procedures Referred By Contact Refer red To Contact Physical Therapy Diagnoses Spell of generalized weakness Lianne Feldman MD Physical Therapy [address] [place] [address] [place] [address] Phone: Fax: Referral ID Status Reason Start Date Expiration Date Visits Requ ested Visits Authorized [id number] Closed 04/28/2018 07/28/2019 1 1 Scheduling Instructions Your provider has recommended an appoint ment for an Electroencephalogram (EEG) at [facility]. You may call [phone] to schedule your appointment. If you prefer, a athletic coordinator will contact you within the mo xt 3 business days to assist you in setting up this appointment. We suggest you call your health insurance company about your coverage and benefits for this appointme nt. SLICING MACHINE TENDER Reason for Visit Reason Comments ATAXIA atherosclerosis, htn, B12 wa s low and started injections with PCP Encounter Details Date Type Department Care Team Description 04/28/2018 Office Visit [facility] Lianne Feldman of [facility] Beatriz Neurology MD Michaela weakness (Primary Dx) [address] [place] [address] [phone] BERTHA [place] [id number] Social History Tobacco Use Types Packs/Day Years [...] Comments Blood Pressure 138/83 04/28/2018 2:06 PM ROLL SLICING MACHINE TENDER Pulse 74 04/28/2018 2:06 PM ROLL SLICING MACHINE TENDER Temperature - - Respiratory Rate - - Oxygen Saturation - - Inhaled Oxygen Concentration - - Weight 106.1 kg (233 lb 12.8 oz) 04/28/2018 2:06 PM ROLL SLICING MACHINE TENDER Height - - Body Mass Index 35.81 [...] a brain-wave test called an EEG at [facility] EEG /Neurology Department. [phone] is the phone number to make the [...] if at all possible. Otherwise please call [phone] for an appointment. ?? Due to high [...] community. Medications - Our pharmacies, both the [facility] here at [facility] and [facility] are great places to get your meds. They are friendly, helpful, and really a great part of our community. [id number] SLICING MACHINE TENDER documented in this encounter Progress Notes Aleksandra Hinojosa CMA - 04/28/2018 1:45 PM CST View Detailed [...] MD 02/26/2018 6:47 PM ALT (SGPT) Order: [id number] Collected: 02/26/2018 11:20 View Full Report Ref Range & Units 2mo ago ALT (SGPT) 0 - 55 U/L 27 Narrative Performed at [facility] [address], [address] [place] [address] Result Notes for TSH, SENSITIVE with Free [...] Free T4, Free T3 if needed Order: [id number] Collected: 02/26/2018 11:20 View Full Report Ref Range & Units 2mo ago TSH, with Reflex 0.30 - 4.50 uIU/ml 0.[address] [facility], [address] [place] [address] Result Notes for Vitamin B12 Only Notes [...] 02/26/2018 6:47 PM Vitamin B12 Only Order: [id number] Collected: 02/26/2018 11:20 View Full Report Ref Range & Units 2mo ago Vitamin B12 213 - 816 pg/ml 233 Narrative Performed at [facility], [address] ??[address] Result Notes for Basic Metabolic Panel Notes [...] PM Contains abnormal dataBasic Metabolic Panel Order: [id number] Collected: 02/26/2018 11:20 View Full Report Ref [...] Black >60 ml/min/1.73m2 >60 Narrative Performed at [facility] at [facility], [address] [place] [address] Result Notes for Lipid Panel and Direct LDL(If Needed) Notes Recorded by Waqas Rodney MD on 10/28/2016 at 4:49 PM ifnorm PSA stable (actually lowest it has been in years). Good news. PSA twice a year. Contains abnormal dataLipid Panel and Direct LDL(If Needed) Order: [id number] Collected: 10/28/2016 14:29 View Full Report Ref Range & Units 1yr ago Hours Fasting hours Information Not Given Cholesterol 0 - 199 mg/dl 221High Triglyceride 0 - 149 mg/dl 266High HDL >40 mg/dl 30Low LDL, Calc. 0 - 129 mg/dl 138High Non HDL Chol, Calc mg/dl 191 Narrative Performed at [facility], [address] [place] [address] SLICING MACHINE TENDER Lianne Feldman MD - 04/28/2018 1:45 PM CST NEUROLOGY FOLLOW-UP VISIT 04/28/2018 PATIENT: Zaid Rutledge Background Please note this document was either typed by me or prepared with voice recognition software which may result in multiple types of errors. Please contact me if clarification is needed. [phone]. Today's visit is with neurologist Lianne Feldman MD, [facility] Primary care doctor: Placido Ott MD Cc: - Zaid Rutledge is a 83 y.o. old male who returns today for neurological followup. 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 He was seen [...] Testing you will need: ?? Need an cupola tender helper lab appointment so you can come in [...] a brain-wave test called an EEG at [facility] EEG /Neurology Department. [phone] is the phone number to make the [...] Feldman MD 04/28/2018 Lianne Feldman MD, Neurologist, [facility], [place] [address] Clinic number [phone] Neurology INTERVAL HISTORY 04/28/2018 04/28/2018 Forgot his cane today, was in such a hurry to get going. He dos not use the cane all the time. Thinks his balance has gotten worse. Is in therapy for back and balance, at [facility]. Balance is concerning him. In 2017 he had another episode where suddenly he was conscious but felt extremrly nauseous, felt like passing out, was sweating, and knew if he got up he would fall. He did not go to ED. They returned from their vacation at [place], spent a few weeks there. He got a testicular infection, called Dr. Osiel rodriguez for Rx (August 2017), toook meds presccribed. He's using catheters and gets with some regularity. Took the abx, seemed to get worse. Was advised when he got to [place] to go to ED or to a urologist. Went to [place] in [place], lots of tests, lots of doctors; advised to stay due to urosepsis. He really didn't want to stay. He really did not want to be admitted, called Darinel, and Darinel agreed to another stronger abx, then he left [place]. He did get better, was able to [...] The whole evening he didn't feel well. [place] like whoof, you've been through a lot. [...] factors, especially the stenosis of the left FURNISHINGS CONSERVATOR branch. Discussed this as risk factor, and [...] Testing you will need: ?? Need an cupola tender helper lab appointment so you can come in [...] 325 mg by mouth daily. ??? cyanocobalamin ([id number]) 1000 MCG/ML injection 1000 mcg weekly x [...] Provider Last Rate Last Dose ??? cyanocobalamin (OCBQXYRZ44) injection 1,000 mcg 1,000 mcg Intramuscular Other (See Comments) Placido Ott MD 1,000 mcg at 04/28/18 8633 Allergies Allergen Reactions ??? Excedrin Extra Strength [Trswzwz-Xaitmjzhdcngi-Mtzuksep] Anaphylaxis ? ? Molds & Smuts Breathing [...] 11/16/2016 Overview Note: Right side, branches of FURNISHINGS CONSERVATOR. High intensity statin therapy indicated for stroke prevention. ??? 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 MRA shows right FURNISHINGS CONSERVATOR branch stenosis. Increased ASA to 325 mg [...] Not on file Occupational History ??? 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 Smoking status: Former Smoker [...] Yes Comment: 100 % Social History Narrative Pattern Attendant. GENERAL PHYSICAL and NEURLOGICAL EXAMINATION BP 138/83 [...] Lianne Rueda MD, Neurologist End note 04/28/2018 SLICING MACHINE TENDER documented in this encounter Nursing Notes Shweta Louis - 04/28/2018 1:45 PM CST Zaid Rutledge is a 83 y.o. old male here for follow up ataxia. Shweta Louis 04/28/2018, 1:57 PM SLICING MACHINE TENDER documented in this encounter Plan of Treatment Scheduled Referrals Name Type Priority Associated Diagnoses Order S chedule EEG ORDER - Request to Referral Routine Spell of generaliz ed Ordered: 04/28/2018 schedule an EEG weakness documented as of this encounter Visit Diagnoses Diagnosis Spell of generalized weakness - Primary Other malaise and fatigue documented in this encounter Care Teams Entertainment Centre Manager Relationship Specialty Start Date End Date Placido Ott MD PCP - General Internal Medicine 10/26/17 10/17/21 [address] [place] [address] documented as of this encounter
--- OUTSIDE RECORDS SUMMARY | 2022-04-08 12:12 | XMS_ITS | Encounter Summary ---
:1935 Author Organization [facility] Address [address], [place] [address] Care Team Providers Name Role Phone Placido Ott MD Primary Care Provider Encounter Details Date Type Department Care Team Description 05/27/[address] [facility] Do eleazar Feldman MD [facility] [address] [place] [address] [place] [address] [phone] Social History Tobacco Use Types Packs/Day Years [...] plan. Cristina Souza RN 06/02/2018, 10:33 AM OPERATOR APPRENTICE Yuki Romero RN - 05/28/2018 8:45 AM CST Message left for patient to call back for provider message. Yuki Romero RN 05/28/2018, 8:46 AM OPERATOR APPRENTICE Lianne Feldman MD - 05/27/2018 6:47 PM [...] test. MD Lianne Rueda MD, Neurologist, 05/27/2018 OPERATOR APPRENTICE documented in this encounter Plan of Treatment Not on filedocumented as of this encounter Visit Diagnoses Not on filedocumented in this encounter Care Teams Participant Administrator Relationship Specialty Start Date End Date Placido Ott MD PCP - General Internal Medicine 10/26/17 10/17/21 [address] [place] [id number] documented as of this encounter
--- OUTSIDE RECORDS SUMMARY | 2022-04-08 12:12 | XMS_ITS | Encounter Summary ---
:1935 Author Organization [facility] Address [address], [place] [address] Care Team Providers Name Role Phone Placido Ott MD Primary Care Provider Reason for Visit Reason Comments Vitamin B12 Injection Encounter Details Date Type Department Care Team Description 03/22/2018 Nursing Visit [facility] Other vitamin B12 [place] Nursing deficiency anemia [address] (Primary Dx) [place] [address] Social History Tobacco Use Types Packs/Day [...] Action Action Date Dose Rate Site cyanocobalamin ([id number]) Given 04/28/2018 3:13 PM 1,000 mcg Left Deltoid injection 1,000 mcg TRUCK DRIVER RUBBISH COLLECTOR 1,000 mcg, Intramuscular, OTHER, Starting on 03/01/18 at 0934, Until Discontinued, For 9 doses, . Given 03/29/2018 9:01 AM CDT 1,000 mcg Right Deltoid Given 03/22/2018 9:12 AM CDT 1,000 mcg Left Deltoid documented in this encounter Care Teams Audiovisual Technician Relationship Specialty Start Date End Date Placido Ott MD PCP - General Internal Medicine 10/26/17 10/17/21 [address] [place] [address] documented as of this encounter
--- OUTSIDE RECORDS SUMMARY | 2022-04-08 12:12 | XMS_ITS | Encounter Summary ---
:1935 Author Organization [facility] Address [address], [place] [address] Care Team Providers Name Role Phone Placido Ott MD Primary Care Provider Reason for Visit Reason Comments Pre-visit Planning Encounter Details Date Type Department Care Team Description 11/06/2017 Telephone [facility] Placido Ott e-visit Planning Beatriz Spence MD Medicine [address] [place] [address] [place], [place] [phone] [address] Social History Tobacco Use Types Packs/Day Years [...] on filedocumented in this encounter Care Teams Cloth Shrinking Supervisor Relationship Specialty Start Date End Date Placido Ott MD PCP - General Internal Medicine 10/26/17 10/17/21 [address] [place] [address] documented as of this encounter
--- OUTSIDE RECORDS SUMMARY | 2022-04-08 12:12 | XMS_ITS | Encounter Summary ---
:1935 Author Organization [facility] Address [address], [place] [address] Care Team Providers Name Role Phone Placido Ott MD Primary Care Provider Reason for Visit Reason Comments Vitamin B12 Injection Encounter Details Date Type Department Care Team Description 03/12/2018 Nursing Visit [facility] Other vitamin B12 [place] Nursing deficiency anemia [address] (Primary Dx) [place] [address] Social History Tobacco Use Types Packs/Day [...] Action Action Date Dose Rate Site cyanocobalamin ([id number]) Given 04/28/2018 3:13 PM 1,000 mcg Left Deltoid injection 1,000 mcg DAIRY HUSBANDRY TEACHER 1,000 mcg, Intramuscular, OTHER, Starting on 03/01/18 at 0934, Until Discontinued, For 9 doses, . Given 03/29/2018 9:01 AM CDT 1,000 mcg Right Deltoid Given 03/22/2018 9:12 AM CDT 1,000 mcg Left Deltoid documented in this encounter Care Teams Funeral Pre Need Consultant Relationship Specialty Start Date End Date Placido Ott MD PCP - General Internal Medicine 10/26/17 10/17/21 [address] [place] [address] documented as of this encounter
--- OUTSIDE RECORDS SUMMARY | 2022-04-08 12:12 | XMS_ITS | Encounter Summary ---
:1935 Author Organization [employer] Address [address] [place] [address] Care Team Providers Name Role Phone Shelly Ott MD Primary Care Provider Reason for Visit Reason Comments Refill pravastatin (PRAVACHOL) 40 M G tablet [Pharmacy Med Name: PRAVASTATIN 40MG TABLETS] Encounter Details Date Type Department Care Team Description 01/02/2018 Refill [facility] Shelly Ott, Refill (pravastatin [address] (PRAVACHOL) 40 MG tablet [place], [place] [address] [address] [Pharmacy Med Name: [phone] PRAVASTATIN 40MG [place], [place] TABLETS]) [address] (Wo rk) Social History Tobacco Use Types [...] of this encounter Nursing Notes Interface, Out Madeline Prov Query - 01/02/2018 11:01 AM CDT [...] Triglycerides: 266 mg/dL on 10/28/2016 Powered by [employer], Reference: [id number], 01/02/2018 11:01:24 AM Shlomo REY: PETER JEFFERY RN ([id number]) Interface, Out [employer] Prov Query - 01/02/2018 11:01 AM CDT The [...] on filedocumented in this encounter Care Teams Ironworker Helper Shop Relationship Specialty Start Date End Date Shelly Ott MD PCP - General Internal Medicine 10/26/17 10/17/21 [address] [place] [address] documented as of this encounter
--- OUTSIDE RECORDS SUMMARY | 2022-04-08 12:12 | XMS_ITS | Encounter Summary ---
:1935 Author Organization [facility] Address [address] [address] Care Team Providers Name Role Phone Placido Ott MD Primary Care Provider Reason for Visit Reason Comments Vitamin B12 Injection Encounter Details Date Type Department Care Team Description 03/05/2018 Nursing Visit [facility] Other vitamin B12 [place] Nursing deficiency anemia [address] (Primary Dx) [place] [address] Social History Tobacco Use Types Packs/Day [...] Action Action Date Dose Rate Site cyanocobalamin ([id number]) Given 04/28/2018 3:13 PM 1,000 mcg Left Deltoid injection 1,000 mcg NURSES' ASSOCIATION COUNSELOR 1,000 mcg, Intramuscular, OTHER, Starting on 03/01/18 at 0934, Until Discontinued, For 9 doses, . Given 03/29/2018 9:01 AM CDT 1,000 mcg Right Deltoid Given 03/22/2018 9:12 AM CDT 1,000 mcg Left Deltoid documented in this encounter Care Teams Metal Cabinet Finisher Relationship Specialty Start Date End Date Placido Ott MD PCP - General Internal Medicine 10/26/17 10/17/21 [address] [place] [address] documented as of this encounter
--- OUTSIDE RECORDS SUMMARY | 2022-04-08 12:12 | XMS_ITS | Encounter Summary ---
:1935 Author Organization [facility] Address [address] [address] Care Team Providers Name Role Phone Placido Ott MD Primary Care Provider Reason for Visit Reason Comments ROUTINE HEALTH MAINTENANCE Encounter Details Date Type Department Care Team Description 02/26/2018 [facility] Placido Ott En counter for Medicare annual wellness exam (Primary Dx); Beatriz Spence MD Encounter for routine adult health exami nation without abnormal findings; Medicine [address] Encounter for immunization; [address] Essential hypertension; [place] MCI (mild c ognitive impairment); [id number] Idiopathic gout, unspecified chronicity, unspecified site [phone] Social History Tobacco Use Types Packs/Day Years [...] documented in this encounter Patient Instructions Patient InstructionsFaShari phillips, RMA - 02/26/2018 9:54 AM CDT Images [...] can you learn more? 1. Go to [employer] or [employer]. 2. Enter K859 in the search box. Current as of: October 28, 2016 Content Version: 11.7 ?? [id number] [employer] documented in this encounter Progress Notes [...] cane. No falls. Had one spell last , none since. Typical symptoms of sweats, nausea, [...] issues addressed Plan: Medicare Annual Wellness - LOS Pt given flu, elected to have shingrix (ABN done) as not available at his pharmacy (Z.00) Encounter for routine adult health examination without abnormal findings Plan: as samantha (Z23) Encounter for immunization Plan: Influenza IIV3 (Trivalent) Fluzone Highdose, 65+ Yrs (97083) Done (I10) Essential hypertension (HRC) - off meds with nl blood pressure Plan: Basic Metabolic Panel, Basic Metabolic Med Aide (G31.84) MCI (mild cognitive impairment) - will [...] Results ALT (SGPT) (02/26/2018 11:20 AM CDT) P athologist Signature ALT (SGPT) 27 0 - 55 U/L [facility] Specimen Anatomical Collection Method Collection Time Receive d Time (Source) Location / / Volume Laterality 02/26/2018 11:20 02/26/2018 AM CDT 11:21 AM CDT Narrative [facility] - 02/26/2018 12:10 PM CDT Performed at [place] [facility] [address], [address] [place] [address] Placido Ott MD LAB_1 Performing Organization Address City/State/ZIP Code Phon e Number [facility] [phone] TSH, SENSITIVE with Free T4, Free T3 if needed (02/26/2018 11:20 AM CDT) athologist Signature TSH, with 0.78 0.30 - [facility] Ref[facility] uIU/ml Specimen Anatomical Collection Method Collection Time Receive d Time (Source) Location / / Volume Laterality 02/26/2018 11:20 02/26/2018 AM CDT 11:21 AM CDT Narrative [facility] - 02/26/2018 2:43 PM C DT Performed at [facility], [address] [place] [address] Placido Ott MD LAB_1 Performing Organization Address City/[facility]/ZIP Code Phon e Number [facility] [phone] Vitamin B12 Only (02/26/2018 11:20 AM CDT) athologist Signature Vitamin B12 233 213 - 816 [facility] pg/ml Specimen Anatomical Collection Method Collection Time Receive d Time (Source) Location / / Volume Laterality 02/26/2018 11:20 02/26/2018 AM CDT 11:21 AM CDT Narrative [facility] - 02/26/2018 6:30 PM C DT Performed at [facility], [address] [place] [address] Placido Ott MD LAB_1 Performing Organization Address City/State/ZIP Code Phon e Number [facility] [phone] (ABNORMAL) Basic Metabolic Panel (02/26/2018 11:20 AM CDT) [facility] gist Method Time Signature Sodium 140 136 [...] - 02/26/2018 12:10 PM CDT Performed at [place] at [facility], [address] [place] [address] Placido Ott MD LAB_1 Performing Organization Address City/State/ZIP Code Phon e Number [facility] [phone] documented in this encounter Visit Diagnoses Diagnosis [...] site documented in this encounter Care Teams Net Coordinator Relationship Specialty Start Date End Date Placido Ott MD PCP - General Internal Medicine 10/26/17 10/17/21 [address] [place], [place] [id number] documented as of this encounter
--- OUTSIDE RECORDS SUMMARY | 2022-04-08 12:12 | XMS_ITS | Encounter Summary ---
:1935 Author Organization [facility] Address [address], [place] [address] Care Team Providers Name Role Phone Placido Ott MD Primary Care Provider Reason for Visit Reason Comments Medication Request Encounter Details Date Type Department Care Team Description 12/04/2017 Telephone [facility] Placido Ott [place] dication Request Beatriz Spence MD Medicine [address] [place] [address] [facility] [place] [phone] [address] Social History Tobacco Use Types Packs/Day Years [...] of this encounter Nursing Notes Tricia Ortiz 12/10/2017 8:52 AM CDT The patient has been notified of this information and all questions answered. Shweta Louis Michaela - 12/10/2017 8:18 AM CDT Left message [...] Zaid should stay on pravastatin. Mere Cordova CMA 12/07/2017 9:00 AM Placido Ott MD - [...] he have a lipid check. ?? Shruthi Alcantar, DENTAL CHAIRSIDE ASSISTANT 12/04/2017 8:45 AM documented in this encounter Plan of Treatment Not on filedocumented as of this encounter Visit Diagnoses Diagnosis Hyperlipidemia, unspecified hyperlipidem ia type (HRC) - Primary documented in this encounter Care Teams Journeyman Molder Relationship Specialty Start Date End Date Placido Ott MD PCP - General Internal Medicine 10/26/17 10/17/21 [address] [place] [address] documented as of this encounter
--- OUTSIDE RECORDS SUMMARY | 2022-04-08 12:12 | XMS_ITS | Encounter Summary ---
:1935 Author Organization [facility] Address [address], [place] [address] Care Team Providers Name Role Phone Placido Ott MD Primary Care Provider Reason for Visit Reason Comments Refill allopurinol (ZYLOPRIM) 100 M G tablet [Pharmacy Med Name: ALLOPURINOL 100MG TABLETS] Encounter Details Date Type Department Care Team Description 03/03/2018 [facility] Eid Iván Ref ill (allopurinol [facility] actice DO [place] (ZYLOPRIM) 100 MG [address] tablet [place] [address] [address] Name: ALLOPURINOL [phone] [place], [place] 100[address] TABL ETS]) [address] (Wo rk) Social History Tobacco Use Types [...] Endocrinology: Gout Agents - Allopurinol -> GFR ([place]) was found, but the result could not [...] 02/26/2018 HGB: 15.1 g/dL on 09/15/2017 GFR ([place]): Taken on 02/26/2018 HCT: 44.7 % on 09/15/2017 Age: 82 PLT: 243 k/cmm on 09/15/2017 RBC: 4.88 m/cmm on 09/15/2017 RDW: 13.5 % on 09/15/2017 WBC: 7.3 k/cmm on 09/15/2017 Powered by [employer], Reference: [id number], 03/03/2018 12:41:20 PM CDT, Pool: PETER JEFFERY RN ([id number]) Interface, Out copygram Query - 03/03/2018 12:41 PM CDT The [...] tests.; this will dictate followup. Interface, Out copygram Query - 03/03/2018 12:41 PM CDT The [...] on filedocumented in this encounter Care Teams Franchise Broker Relationship Specialty Start Date End Date Placido Ott MD PCP - General Internal Medicine 10/26/17 10/17/21 [address] [place] [address] documented as of this encounter
--- OUTSIDE RECORDS SUMMARY | 2022-04-08 12:12 | XMS_ITS | Encounter Summary ---
:1935 Author Organization [facility] Address [address], [place] [address] Care Team Providers Name Role Phone Placido Ott MD Primary Care Provider Reason for Visit Reason Comments APPOINTMENT REQUEST Encounter Details Date Type Department Care Team Description 03/31/2018 Telephone [facility] Lianne Feldman AP POINTMENT REQUEST [place] [facility] [address] [place] [address] [address] [phone] [place] [address] Social History Tobacco Use Types Packs/Day Years [...] detailed message on your voicemail? Yes Jael Blair [Salvationist/Appt Center: Please schedule appointment if openings are available] Please route to: None (Care Team Pool if unable to schedule) documented in this encounter Plan of Treatment Not on filedocumented as of this encounter Visit Diagnoses Not on filedocumented in this encounter Care Teams Inbound Telemarketer Relationship Specialty Start Date End Date Placido Ott MD PCP - General Internal Medicine 10/26/17 10/17/21 [address] [place] [address] documented as of this encounter
--- OUTSIDE RECORDS SUMMARY | 2022-04-08 12:12 | XMS_ITS | Encounter Summary ---
:1935 Author Organization [facility] Address [address], [place] [address] Care Team Providers Name Role Phone Placido Ott MD Primary Care Provider Reason for Visit Reason Comments Medication Questions pravastatin (PRAVACHOL) 40 M G tablet Forms hadicap sticker Encounter Details Date Type Department Care Team Description 03/29/2018 Telephone [facility] Placido Ott Vt dication Questions Beatriz Spence MD (pravastatin Medicine [address] (PRAVACHOL) 40 MG [address] tablet); Forms BERTHA [place] [address] BERTHA HENDERSON (hadicap sticker) [phone] Social History Tobacco Use Types Packs/Day Years [...] firststarting the medication, although studies suggest that shelter they help to protect the memory, bydecreasing the stroke risk. 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 So I would recommend that he stay on the statin medication to help decrease the risk of stroke, and hopefully help protect the brain shelter. Placido Ott MD 03/29/2018 12:43 PM IET Vandana Ignacio, EULOGIO - 03/29/2018 9:59 AM CDT Situation: pt [...] work on diet and exercise. Assessment (RN)/Appraisal (AFTAB/MEGHA): Recommendation/Request: Explained to patient what purpose the [...] - 03/29/2018 9:22 AM CDT Routed to swimming pool maintenance for the pravastatin question. Assist will fill out handi cap form for provider to review and complete. Lida Corcoran CMA 03/29/2018, 9:23 AM IET Janis Oneil - 03/29/2018 9:12 AM CDT Forms & Letters - All Types What form/letter are you requesting? hadicap sticker renewal When do you need this form back? anytime How would you like to receive your form/letter? building rental superintendent at the [facility] Is it ok to leave a detailed message on your voicemail? Yes [It Operations Manager/Appt Center: Communicate to patient: Forms may take up to 7-10 business days to complete. We will complete it as soon as possible and return it to the location you requested.] Is there anything else I can help you with today? Janis Oneil Please route to: Care Team Pool Janis Uriarte - 03/29/2018 9:10 AM CDT Medications - Med Question / Symptom [It Operations Manager/Appt Center: If this call is after 3 p.m., communicate to patient: If we are not able to get back to you by the end of the day and your symptoms worsen, please contact the Careline [phone] OR at .] Name and Dose of [...] would you like it filled at a [facility] pharmacy? No: [It Operations Manager/Appt Center: Please add the selected pharmacy to [...] on filedocumented in this encounter Care Teams Bead Wire Insulator Relationship Specialty Start Date End Date Placido Ott MD PCP - General Internal Medicine 10/26/17 10/17/21 [address] [place] [address] documented as of this encounter
--- OUTSIDE RECORDS SUMMARY | 2022-04-08 12:12 | XMS_ITS | Encounter Summary ---
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 (Primary Dx) [place] [id number] Social History Tobacco Use Types Packs/Day Years [...] concerns, please contact us. Call for the [facility] EMG Clinic in [place]. LE TREE STITCHER documented in this encounter Procedure Notes Kishore Gee MD - 06/22/2018 3:00 PM CSTAssociated Order(s): EMG REPORT Procedure(s): EMG REPORT Pre-Procedure Diagnose(s): Nonspecific abnormal electromyogram (EMG) Images from the original note were not included. [address] [place] [address] Electromyography Report Full Name: Zaid Rutledge Gender: [...] stenoses. History of lumbar spine surgery in 2012 and 2016. Evaluate for lumbo-sacral radiculopathies and [...] Gee M.D. Neurology, Fellow ELIGIO, Dipl. GRISELDA [email or web address] - [phone] Dx Code(s): R94.131 LE TREE STITCHER documented in this encounter Plan of Treatment Not on filedocumented as of this encounter Procedures Procedure Name Priority Date/Time Associated Diagnosis Comme nts EMG REPORT Routine 06/22/2018 3:00 PM Nonspecific abnormal R esults for this SADDLE TREE STITCHER electromyogram (EMG) procedu re are in the results section. documented in this encounter Results EMG REPORT (06/22/2018 3:00 PM SADDLE TREE STITCHER) Narrative EXTERNAL RESULTS - 06/22/2018 3:00 PM CS T Kishore Gee MD ? 06/22/2018 ??3:23 PM ? [address] [place] [address] Electromyography Report ?? Full Name: Zaid Rutledge [...] digitorum brevis and a nterior tibialis muscles. ?Leopoldo Gee ?Electronic ally signed ?22 June 2018 ?Leopoldo Gee M.D. ?? Neurology, Fellow ELIGIO, Dipl. GRISELDA ??? [phone] ? Dx Code(s): ??R94.131 Kishore Gee MD [employer] Performing Organization Address City/State/ZIP Code Phon e Number EXTERNAL RESULTS documented in this encounter Visit Diagnoses Diagnosis Nonspecific abnormal electromyogram (EMG ) - Primary documented in this encounter Care Teams Barrel Stave Inspector Relationship Specialty Start Date End Date Placido Ott MD PCP - General Internal Medicine 10/26/17 10/17/21 [address] [place] [address] documented as of this encounter
--- OUTSIDE RECORDS SUMMARY | 2022-04-08 12:13 | XMS_ITS | Encounter Summary ---
:1935 Author Organization [facility] Address [address] [address] Care Team Providers Name Role Phone Kali Morganlori Rose DO Primary Care Provider Reason for Visit Reason Onset Date Comments Refill 12/29/2016 Encounter Details Date Type Department Care Team Description 12/29/2016 Refill [facility] Kole Jordan APRN, Refill [facility] LEAD BUSINESS ANALYST [address] [place] [address] [place] [address] [phone] (Wo rk) Social History Tobacco Use Types [...] Primary documented in this encounter Care Teams Vp Director Of Creative Strategy Relationship Specialty Start Date End Date Morgan Bass DO PCP - General Family Practice 10/02/16 10/25/17 [address] [place] [address] documented as of this encounter
--- OUTSIDE RECORDS SUMMARY | 2022-04-08 12:13 | XMS_ITS | Encounter Summary ---
:1935 Author Organization [facility] Address [address], [place] [address] Care Team Providers Name Role Phone Kali Morgan Rose Primary Care Provider Encounter Details Date Type Department Care Team Description 01/20/2017 Telephone [facility] Waqas Rodney MD [facility] [address] [place] [address] [address] [place], [place] [id number] [phone] Social History Tobacco Use Types Packs/Day Years [...] (can cause urinary retention). Val Jordan APRN, SOFTWARE TEST TECHNICIAN ??01/19/2017, 2:17 PM Patient agrees with the plan and verbalizes understanding. Tania Calloway RN 01/20/2017, 10:28 AM documented in this encounter Plan of Treatment Not on filedocumented as of this encounter Visit Diagnoses Not on filedocumented in this encounter Care Teams Glass Processing Worker Relationship Specialty Start Date End Date Morgan Bass DO PCP - General Family Practice 10/02/16 10/25/17 [address] [place] [address] documented as of this encounter
--- OUTSIDE RECORDS SUMMARY | 2022-04-08 12:13 | XMS_ITS | Encounter Summary ---
:1935 Author Organization [facility] Address [address], [place] [address] Care Team Providers Name Role Phone Morgan Bass Primary Care Provider [phone] Reason for Visit Reason Comments Revisit Encounter Details Date Type Department Care Team Description 09/15/2017 Office Visit [facility] Waqas Rodney Pool Edson Griffith MD unspecified type [facility] [address] (Primary Dx) [address] [place] [address] [place], [place] [phone] [address] Social History Tobacco Use Types Packs/Day Years [...] Patient Instructions Patient InstructionsStWaqas haynes MD - 09/15/2017 11:50 AM CDT A: [...] and WBC Normal Culture pending. Explained to tjst Waqas Rodney MD - 09/15/2017 11:50 AM [...] Component Value Ref Test Analysis Performed At [facility] Range Method Time Signature Specimen Urine [facility] Description Midstream LABORATORIES Special Unspecified [facility] Requests LABORATORIES Culture No Growth [facility] After 2 Days LABORATORIES Report Status 09/17/2017 [facility] Final LABORATORIES Specimen Anatomical Collection Method Collection Time Receive d Time (Source) Location / / Volume Laterality Urine:clean 09/15/2017 11:58 09/15/2017 catch AM CDT 11:59 AM CDT Waqas Rodney MD LAB_1 Performing Organization Address [facility] Code Phon e Number [facility] [phone] (ABNORMAL) UA MICRO (HEMATURIA) (09/15/2017 11:58 AM CDT) [facility] Method Time Signature Urine Color Yellow [...] - 09/15/2017 12:12 PM CDT Performed at [facility], [address] [place] [address] Waqas Rodney MD LAB_1 Performing Organization Address City/[facility] Phon e Number [facility] [phone] (ABNORMAL) Prostatic Specific Antigen (F/U) (09/15/2017 11:57 AM CDT) [facility] Method Time Signature Prostatic Spec 6.6 (H) [...] 09/15/2017 1:00 PM C DT Performed at [facility], [address] [place] [address] Waqas Rodney MD LAB_1 Performing Organization Address City/[facility] Code Phon e Number [facility] [phone] Complete Blood Count-No Diff (09/15/2017 11:57 AM [...] - 09/15/2017 12:07 PM CDT Performed at [facility], [address] [place] [address] Waqas Rodney MD LAB_1 Performing Organization Address City/[facility] Phon e Number [facility] [phone] documented in this encounter Visit Diagnoses Diagnosis Hematuria, unspecified type - Primary Hematuria, unspecified type documented in this encounter Care Teams Ham Clerk Relationship Specialty Start Date End Date Morgan Bass DO PCP - General Family Practice 10/02/16 10/25/17 [address] [place] [address] documented as of this encounter
--- OUTSIDE RECORDS SUMMARY | 2022-04-08 12:13 | XMS_ITS | Encounter Summary ---
:1935 Author Organization [facility] Address [address] [place] [address] Care Team Providers Name Role Phone Morgan Bass DO Primary Care Provider Encounter Details Date Type Department Care Team Description 12/29/2016 Notes/Orders [facility] Val Jordan, Uri nary tract [facility] DIRECTOR MARKET INTELLIGENCE, ACCOUNT RECEIVABLE ASSOCIATE infection, site [facility] [address] unspecified (Primary [address] Dx) [place] [address] [place], [place] [phone] [address] Social History Tobacco Use Types Packs/Day Years [...] Primary documented in this encounter Care Teams Grants Administrator Relationship Specialty Start Date End Date Morgan Bass DO PCP - General Family Practice 10/02/16 10/25/17 [address] [place] [address] documented as of this encounter
--- OUTSIDE RECORDS SUMMARY | 2022-04-08 12:13 | XMS_ITS | Encounter Summary ---
:1935 Author Organization [facility] Address [address] [place] [address] Care Team Providers Name Role Phone Morgan Bass DO Primary Care Provider [phone] Encounter Details Date Type Department Care Team Description 12/29/2016 Lab Visit [facility] Urinary frequency Laboratory [address] [place] [address] Social History Tobacco Use Types Packs/Day [...] with patient which pharmacy should be used. Val Jordan APRN, CNP 12/29/2016, 2:41 PM Val [...] Results UA MICRO (12/29/2016 1:55 PM CDT) athologist Signature RBC'S 0-3 0 - 3 [...] 12/29/2016 2:33 PM C DT Performed at [facility], [address] [place] [address] Waqas Rodney MD LAB_1 Performing Organization Address City/State/ZIP Code Phon e Number [facility] [phone] (ABNORMAL) UA Micro If (12/29/2016 1:55 PM CDT) [facility] Method Time Signature Urine Color Yellow [facility] Urine Clarity Clear [facility] Sp Gr 1.020 1.005 - [facility] 1.030 LABORATORIES Leuk Tr (A) NEG [facility] Nitr Positive (A) NEG [facility] pH 5.5 4.5 - [...] 12/29/2016 2:32 PM C DT Performed at [facility], [address] [place] [address] Waqas Rodney MD LAB_1 Performing Organization Address City/[facility] Phon e Number [facility] [phone] documented in this encounter Visit Diagnoses Diagnosis Urinary frequency documented in this encounter Care Teams Client Server Developer Relationship Specialty Start Date End Date Morgan Bass DO PCP - General Family Practice 10/02/16 10/25/17 [address] [place] [address] documented as of this encounter
--- OUTSIDE RECORDS SUMMARY | 2022-04-08 12:13 | XMS_ITS | Encounter Summary ---
:1935 Author Organization [facility] Address [address] [address] Care Team Providers Name Role Phone Kali Morgan Milton Primary Care Provider Encounter Details Date Type Department Care Team Description 12/29/2016 Notes/Orders [facility] Val Jordan Uri nary [facility] MARTI GERMAIN (Primary Dx) [facility] [address] [place] [address] [place], [place] [phone] [address] Social History Tobacco Use Types Packs/Day Years [...] Component Value Ref Test Analysis Performed At [facility] Range Method Time Signature Specimen Urine [...] 12/31/2016 7:36 AM C DT Performed at [facility], [address] [place] [address] Organism Antibiotic Method Susceptibility > 100,000 col/ml [...] Waqas Rodney MD LAB_1 Performing Organization Address City/State/[facility] Code Phon e Number [facility] [phone] documented in this encounter Visit Diagnoses Diagnosis Urinary frequency - Primary documented in this encounter Care Teams Furnace Door Tender Relationship Specialty Start Date End Date Morgan Bass DO PCP - General Family Practice 10/02/16 10/25/17 [address] [place] [address] documented as of this encounter
--- OUTSIDE RECORDS SUMMARY | 2022-04-08 12:13 | XMS_ITS | Encounter Summary ---
:1935 Author Organization [facility] Address [address] [address] Care Team Providers Name Role Phone Morgan Bass Primary Care Provider [phone] Reason for Visit Reason Comments Refill allopurinol (ZYLOPRIM) 100 M G tablet [Pharmacy Med Name: ALLOPURINOL 100MG TABLETS] Encounter Details Date Type Department Care Team Description 01/30/2017 Refill [facility] Ramses Cleary, Refill (allopurinol [place] [facility]jelica MURRAY (ZYLOPRIM) 100 MG [address] tablet [[place] [address] [address] Name: ALLOPURINOL [phone] [place], [place] [address] TABLETS ]) [address] Social History Tobacco Use Types Packs/Day Years [...] Endocrinology: Gout Agents - Allopurinol -> GFR ([place]) was found, but the result could not be read. -> Refill x 9 months (until due for a(n) Cr check and GFR ([place]) check) Last qualifying visit: 12/29/2016 (in FAMILY PRACTICE) Next scheduled visit: None Last ordered by RAMSES CLEARY E: 11/02/2016 (89 days ago) QTY: 90, Refills: 0, Sig: take 1 tablet by mouth every day (unchanged) Cr: 1.08 mg/dL on 10/08/2016 ALT: 31 U/L on 10/28/2016 HGB: 15.9 g/dL on 12/29/2016 GFR ([place]): Taken on 10/08/2016 HCT: 47 % on 12/29/2016 Age: 81 PLT: 187 k/cmm on 12/29/2016 RBC: 5.11 m/cmm on 12/29/2016 RDW: 13.4 % on 12/29/2016 WBC: 6.6 k/cmm on 12/29/2016 Powered by [email or web address], Reference: [id number], 01/30/2017 5:14:56 PM CDT, Pool: SMG REFILL RN ([id number]) Interface, Out Surescripts Prov Query - 01/30/2017 [...] neurology on Thursday as planned. Interface, Out Realm Prov Query - 01/30/2017 5:14 PM CDT [...] filedocumented in this encounter Care Teams Supervisor Matrix Relationship Specialty Start Date End Date Morgan Bass DO PCP - General Family Practice 10/02/16 10/25/17 [address] [place] [address] documented as of this encounter
--- OUTSIDE RECORDS SUMMARY | 2022-04-08 12:13 | XMS_ITS | Encounter Summary ---
:1935 Author Organization [facility] Address [address], [place] [address] Care Team Providers Name Role Phone Kali Morgan Rose Primary Care Provider Reason for Visit Reason Comments UTI Encounter Details Date Type Department Care Team Description 12/29/2016 Telephone [facility] Waqas Rodney MD UTI [facility] [address] [place] [address] [place], [place] [address] [phone] Social History Tobacco Use Types Packs/Day Years [...] and would like the Rx sent to [facility] in [place], [place]. Medication has been t'd up for [...] UA Micro If (12/29/2016 1:55 PM CDT) [facility] Method Time Signature Urine Color Yellow [...] 12/29/2016 2:32 PM C DT Performed at [facility], [address] [place] [address] Waqas Rodney MD LAB_1 Performing Organization Address City/State/ZIP Code Phon e Number [facility] [phone] documented in this encounter Visit Diagnoses Diagnosis Urinary frequency - Primary Urinary frequency documented in this encounter Care Teams Ferryboat Pilot Relationship Specialty Start Date End Date Morgan Bass DO PCP - General Family Practice 10/02/16 10/25/17 [address] [place] [address] documented as of this encounter
--- OUTSIDE RECORDS SUMMARY | 2022-04-08 12:13 | XMS_ITS | Encounter Summary ---
:1935 Author Organization [email or web address] Address [address], [place] [address] Care Team Providers Name Role Phone Morgan Bass DO Primary Care Provider Reason for Visit Reason Comments Hematuria Encounter Details Date Type Department Care Team Description 01/07/2017 Office Visit [facility] Waqas Rodney Hematuria, unspecified [address] [facility] Kirill Griffith MD (Primary Dx) [place], [place] [address] [phone] [place], [place] [address] Social History Tobacco Use Types Packs/Day Years [...] Hydrate well to clear urine. 3 Call [facility] with update [phone] 4. Next week reculture of urine 5. [...] Hydrate well to clear urine. 3 Call [facility] with update [phone] 4. Next week reculture of urine 5. [...] documented in this encounter Care Teams Applications Engineer Manufacturing Relationship Specialty Start Date End Date Morgan Bass DO PCP - General Family Practice 10/02/16 10/25/17 [address] [place] [address] documented as of this encounter
--- OUTSIDE RECORDS SUMMARY | 2022-04-08 12:13 | XMS_ITS | Encounter Summary ---
:1935 Author Organization [facility] Address [address] [place] [address] Care Team Providers Name Role Phone Morgan Bass DO Primary Care Provider Reason for Referral Procedure/Equipment (Routine) - Closed Specialty Diagnoses / Procedures Referred By Contact Refer red To Contact Diagnoses Testicular pain, right Morgan Bass DO Procedures US Testicle W Doppler [address] [place], [place] [address] Referral ID Status Reason Start Date Expiration Date Visits Requ ested Visits Authorized [id number] Closed 12/01/2016 03/02/2018 1 1 Reason for Visit Reason Comments SWELLING, TESTES right Encounter Details Date Type Department Care Team Description 12/01/2016 [facility] Visit [facility] Morgan Bass ticular pain, right (Primary Dx); Beatriz Rose DO Vertebrobasilar artery syndrome; Practice [address] Essential hypertension [address] [place] [address] [place] [address] Social History Tobacco Use Types Packs/Day Years [...] Rx to go [facility] out patient pharmacy. Done. Rosa Chow CMA 12/01/20161:47 PM Morgan Bass DO - 12/01/2016 1:11 PM CDT Urine did show possible infection so we will go ahead and treat. I would recommend following up withurology tomorrow. Carlos A Howard - 12/01/2016 12:02 PM CDT Addended by: CARLOS A HOWARD on: 12/01/2016 12:02 PM Modules accepted: Orders Kali Morgan DO Milton - 12/01/2016 11:10 AM CDT Chief Complaint [...] MOUTH TWICE DAILY ONE HOUR BEFORE A [id number] Cap 3 ??? pravastatin (PRAVACHOL) 40 MG [...] UA with Micro (12/01/2016 12:02 PM CDT) [facility] gist Method Time Signature Urine Color [...] - 12/01/2016 12:39 PM CDT Performed at [facility] [address], [address] [place] [address] Morgan Bass DO LAB_1 Performing Organization Address City/State/ZIP Code Phon e Number [facility] [phone] documented in this encounter Visit Diagnoses Diagnosis Testicular pain, right - Primary Unspecified disorder of male genital org ans Vertebrobasilar artery syndrome Essential hypertension ([facility]) Unspecified essential hypertension Testicular pain, right Unspecified disorder of male genital org ans documented in this encounter Care Teams Fabric Stretcher Relationship Specialty Start Date End Date Morgan Bass DO PCP - General Family Practice 10/02/16 10/25/17 [address] [place] [address] documented as of this encounter
--- OUTSIDE RECORDS SUMMARY | 2022-04-08 12:13 | XMS_ITS | Encounter Summary ---
:1935 Author Organization [employer] Address [address] [address] Care Team Providers Name Role Phone No Primary/Referring, [place] Primary Care Provider Unavailable Encounter Details Date Type Department Care Team Description 01/07/2017 Consent for [facility] CONSE NT FOR Procedure/[facility] keila SURGERY OR PROCEDURE ent Social [...] on filedocumented in this encounter Care Teams Flask Cleaner Relationship Specialty Start Date End Date No Primary/ReferringAugusta PCP - General 12/11/21 documented as of this encounter
--- OUTSIDE RECORDS SUMMARY | 2022-04-08 12:13 | XMS_ITS | Encounter Summary ---
:1935 Author Organization [facility] Address [address], [place] [address] Care Team Providers Name Role Phone Kali Morgan [place] Primary Care Provider Reason for Visit Reason Comments QUESTIONS, GENERAL Encounter Details Date Type Department Care Team Description 12/01/2016 Telephone [facility] [address] [place] [address] [place], [place] [phone] Social History Tobacco Use Types Packs/Day Years [...] to worsen. Corie has been transferred to [facility]. Deepika Arellano RN 12/01/2016, 8:46 AM Jael [...] different number than stated above. Please call [phone]. Jael Blair ....................................12/01/2016 8:26 AM documented in this encounter Plan of Treatment Not on filedocumented as of this encounter Visit Diagnoses Not on filedocumented in this encounter Care Teams Locksmith Apprentice Relationship Specialty Start Date End Date Morgan Bass DO PCP - General Family Practice 10/02/16 10/25/17 [address] [place], [place] [id number] documented as of this encounter
--- OUTSIDE RECORDS SUMMARY | 2022-04-08 12:13 | XMS_ITS | Encounter Summary ---
:1935 Author Organization [facility] Address [address], [place] [address] Care Team Providers Name Role Phone Bass Morgan Rose Primary Care Provider Encounter Details Date Type Department Care Team Description 11/16/2016 Telephone [facility] Do eleazar Feldman MD [facility] [address] [place] [address] [place] [address] [phone] Social History Tobacco Use Types Packs/Day Years [...] patient Zaid Rutledge and discuss the followin. MR angio [...] at f/u visit Thanks. Lianne Feldman MD,Neurologist [facility] 11/16/2016, 4:22 AM Resulted Orders MR Angio Neck W/WO IV Cont Narrative [facility] 1. HEAD MRA WITHOUT IV CONTRAST 2. NECK MRA WITHOUT AND WITH IV CONTRAST 10/28/2016 9:35 AM INDICATION: 3 spells of dizziness with dipplopia, worrisome for TIA especially posterior circulation TECHNIQUE: 1. 3D dobz-lz-fopces head MRA without intravenous contrast. 2. Neck [...] filedocumented in this encounter Care Teams Traffic Signal Mechanic Relationship Specialty Start Date End Date Morgan Bass DO PCP - General Family Practice 10/02/16 10/25/17 [address] [place] [address] documented as of this encounter
--- OUTSIDE RECORDS SUMMARY | 2022-04-08 12:13 | XMS_ITS | Encounter Summary ---
:1935 Author Organization [facility] Address [address] [address] Care Team Providers Name Role Phone Morgan Bass DO Primary Care Provider Reason for Visit Procedure/Equipment (Routine) - Closed Specialty Diagnoses / Procedures Referred By Contact Refer red To Contact Diagnoses Testicular pain, right Morgan Bass DO Procedures US Testicle W Doppler [address] [place], [place] [address] Referral ID Status Reason Start Date Expiration Date Visits Requ ested Visits Authorized [id number] Closed 12/01/2016 03/02/2018 1 1 Encounter Details Date Type Department Care Team Description 12/01/2016 Imaging [facility] Morgan Bassu lar pain, right Ultrasound DO [place] [address] [place] [address] [facility] [phone] [place] [address] (Wo rk) Social History Tobacco [...] left, this may indicate epididy mitis. Morgan HOGAN US documented in this encounter Visit Diagnoses Diagnosis Testicular pain, right Unspecified disorder of male genital org ans documented in this encounter Care Teams Billing Customer Service Representative Relationship Specialty Start Date End Date Morgan Bass DO PCP - General Family Practice 10/02/16 10/25/17 [address] [place] [address] documented as of this encounter
--- OUTSIDE RECORDS SUMMARY | 2022-04-08 12:13 | XMS_ITS | Encounter Summary ---
:1935 Author Organization [facility] Address [address] [address] Care Team Providers Name Role Phone Morgan Bass DO Primary Care Provider Encounter Details Date Type Department Care Team Description 12/01/2016 Notes/Orders [facility] Morgan Bass ticular pain, [facility] DO [place] right (Primary Dx) Practice [facility] [place] [address] [facility] [address] [facility] [place] [address] [place], [place] [phone] Social History Tobacco Use Types Packs/Day Years [...] ans documented in this encounter Care Teams Bullet Assembly Press Operator Relationship Specialty Start Date End Date Morgan Bass DO PCP - General Family Practice 10/02/16 10/25/17 [address] [place] [address] documented as of this encounter
--- OUTSIDE RECORDS SUMMARY | 2022-04-08 12:13 | XMS_ITS | Encounter Summary ---
:1935 Author Organization [facility] Address [address] [place] [address] Care Team Providers Name Role Phone Morgan Bass Primary Care Provider [phone] Reason for Visit Reason Comments RESULTS, TEST go over mra's and lp Encounter Details Date Type Department Care Team Description 11/26/2016 Office Visit [facility] Lianne Feldman sis of intracranial vessel (Primary Dx); [facility] MD Michaela Vertebrobasilar artery syndrome; [address] Acquired cerebral ventriculo megaly [place], [place] [address] [address] [place], [place] [phone] [address] Social History Tobacco Use Types Packs/Day Years [...] so via on-line services e-mail or call [phone]. Please be patient if you do not [...] if at all possible. Otherwise please call [phone] for an appointment. ?? Due to high [...] community. Medications - Our pharmacies, both the [facility] here at [facility] and [facility] are great places to get [...] so via on-line services e-mail or call [phone]. Please be patient if you do not [...] if at all possible. Otherwise please call [phone] for an appointment. ?? Due to high [...] community. Medications - Our pharmacies, both the [facility] here at [facility] and [facility] are great places to get your meds. They are friendly, helpful, and really a great part of our community. vvvvvvvvvvvvvvvvvvvvvvvvvvvvvv The Mediterranean Diet: After Your Visit Your Care Instructions The Mediterranean diet features foods eaten in [place], [place], southern [place], and other countries that border [...] lunch or dinner instead of red meat. [place] the fish with olive oil, and broil [...] Where can you learn more? Go to [employer] and enter O407 in the search box. Last Revised: March 14, 2011 ?? [id number] [employer] documented in this encounter Progress Notes Lianne Feldman MD - 11/26/2016 2:00 PM CDT NEUROLOGY FOLLOW-UP VISIT 11/26/2016 PATIENT: Zaid Rutledge Background Please note this document was either typed by me or prepared with voice recognition software which may result in multiple types of errors. Please contact me if clarification is needed. [phone]. Today's visit is with neurologist Lianne Feldman MD, [facility] Primary care doctor: Morgan Bass DO Cc: - Zaid Rutledge is a 81 y.o. old male who returns today for neurological followup. 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 He was seen [...] 12 hours, and to be done at [facility] on the same day as the spinal tap. Please advise nursing that all the blood tests ordered 10/13/2016 and 10/14/2016 needs to be drawn before the spinal tap. ?? See information below about preparing for the spinal tap. Get really well hydrated the three daysbefore the tap, do not take aspirin the 3 days before, you will need a wheelchair van driver, and bedrest recommended for 24 hours [...] syndrome Orders Placed This Encounter ??? Cytology, Non-Pier Master (Fluids, Urine, Sputum) ??? CSF Glucose ??? [...] 11/26/2016 MEDICAL DECISION MAKING 11/26/2016 : ?? Judge [...] consulting me in the care of Zaid Ronnell. Please contact me if I may be of further service. MD Lianne Rueda MD, Neurologist [facility], [facility] INTERVAL HISTORY 11/26/2016 Reviewed all tests results [...] psychiatric, or other neurological complaints. TEST RESULTS [facility] 1. HEAD MRA WITHOUT IV CONTRAST 2. NECK MRA WITHOUT AND WITH IV CONTRAST 10/28/2016 9:35 AM INDICATION: 3 spells of dizziness with dipplopia, worrisome for TIA especially posterior circulation TECHNIQUE: 1. 3D eeuf-dq-qjdulr head MRA without intravenous contrast. 2. Neck [...] not well imaged. ? Results for ZAID RUTLEDGE ( ) as of 11/26/2016 14:43 Ref. [...] Ab Interp.,EIA Unknown (NOTE) ... 0.12... CYTOLOGY, NON-CHIEF CLIENT OFFICER (FLUIDS, URINE, SPUTUM) Unknown Rpt FLOW CYTOMETRY [...] MOUTH TWICE DAILY ONE HOUR BEFORE A [id number] Cap 3 ??? aspirin 81 MG tablet Take 1 Tab by mouth daily. ??? dorzolamide-timolol (COSOPT) 22.3-6.8 MG/ML eye drop solution 11/07/2016: Received from: ExternalPharmacy ??? doxycycline monohydrate (ADOXA) 100 MG tablet Take two tabs po at the same time (Patient not taking: Reported on 12/01/2016) 2 Tab 0 No facility-administered medications prior to visit. Allergies Allergen Reactions ??? Excedrin Extra Strength [Xgirkuu-Canshuoyoickq-Owcycbls] Anaphylaxis ??? Banana Other, see comments Throat swelling, wheezing Also avoids melons, OTHER HISTORY Patient Active Problem List Diagnosis Date Noted ??? 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 ??? 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 MRA shows right MAINTENANCE CONTROLLER branch stenosis. 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 GENERAL PHYSICAL and NEURLOGICAL EXAMINATION BP 120/66 [...] Louis - 11/26/2016 2:00 PM CDT Zaid Rutledge is a 81 y.o. old male here for test results. 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
--- OUTSIDE RECORDS SUMMARY | 2022-04-08 12:13 | XMS_ITS | Encounter Summary ---
:1935 Author Organization [facility] Address [address] [place] [address] Care Team Providers Name Role Phone Morgan Bass DO Primary Care Provider Encounter Details Date Type Department Care Team Description 09/15/2017 Lab Visit [facility] Hematu rich, unspecified [facility] t e Laboratory [address] [place] [address] Social History Tobacco Use Types Packs/Day Years [...] C DT Performed at [facility], [address] [place] [address] Waqas Rodney MD LAB_1 Performing Organization Address City/State/ZIP Code Phon e Number [facility] [phone] Complete Blood Count-No Diff (09/15/2017 11:57 AM [...] 09/15/2017 12:07 PM CDT Performed at [facility], [address] [place] [address] Waqas Rodney MD LAB_1 Performing Organization Address City/State/ZIP Code Phon e Number [facility] [phone] documented in this encounter Visit Diagnoses Diagnosis Hematuria, unspecified type documented in this encounter Care Teams Assistant Bookkeeper Relationship Specialty Start Date End Date Morgan Bass DO PCP - General Family Practice 10/02/16 10/25/17 [address] [place] [address] documented as of this encounter
--- OUTSIDE RECORDS SUMMARY | 2022-04-08 12:13 | XMS_ITS | Encounter Summary ---
:1935 Author Organization [facility] Address [address], [place] [address] Care Team Providers Name Role Phone Kali Morgan Rose Primary Care Provider [phone] Reason for Visit Reason Comments Orders Needed Lab orders needed for possib le UTI Encounter Details Date Type Department Care Team Description 01/19/2017 Telephone [facility] Waqas Rodney Or daniela Needed (Lab [place] Edson Griffith MD orders needed for [facility] [address] possible UTI) [address] [place] [address] [place], [place] [phone] [address] Social History Tobacco Use Types Packs/Day Years [...] 01/19/2017 10:21 AM CDT Orders - Laboratory [Supervisor Production Department/Appt Center: If this call is after 3 p.m., communicate to patient: If we are not able to get back to you by the end of the day and your symptoms worsen please contact the Careline at [phone] OR at .] What lab order is being requested? UTI Why is this order being requested? Patient would like to discuss possible infection Have you been seen recently for this concern? No [Supervisor Production Department/Appt Center:If patient was seen at an outside location, please obtain records] Is it okay to leave a detailed message on your voicemail? Yes [Supervisor Production Department/Appt Center: Instruct patient to check with insurance company for coverage] Is there anything else I can help you with today? Rosemarie Vasquez Please route to: Care Team Pool documented in this encounter Plan of Treatment Not on filedocumented as of this encounter Results UA Micro If (01/19/2017 1:45 PM CDT) [facility] Method Time Signature Urine Color [...] 01/19/2017 2:03 PM C DT Performed at [facility], [address] [place] [address] Val Jordan APRN, CNP LAB_1 Performing Organization Address City/State/ZIP Code Phon e Number [facility] [phone] documented in this encounter Visit Diagnoses Diagnosis H/O recurrent urinary tract infection - Primary Personal history of urinary (tract) infe ction H/O recurrent urinary tract infection Personal history of urinary (tract) infe ction documented in this encounter Care Teams Pay Station Attendant Relationship Specialty Start Date End Date Morgan Bass DO PCP - General Family Practice 10/02/16 10/25/17 [address] [place] [address] documented as of this encounter
--- OUTSIDE RECORDS SUMMARY | 2022-04-08 12:13 | XMS_ITS | Encounter Summary ---
:1935 Author Organization [facility] Address [address] [place] [address] Care Team Providers Name Role Phone Iván Eid DO Primary Care Provider Reason for Visit Reason Comments Refill lisinopril (ZESTRIL) 10 MG t ablet [Pharmacy Med Name: LISINOPRIL 10MG TABLETS] Encounter Details Date Type Department Care Team Description 12/08[facility] Iván Eid Ref ill (lisinopril [facility] Pr actice DO [place] (ZESTRIL) 10 MG tablet [address] [Pharmacy Med Name: [place] [address] [address] LISINOPRIL 10MG [phone] [place], [place] TABLETS]) [address] (Wo rk) Social History Tobacco Use Types [...] Na check) Last qualifying visit: 12/01/2016 (in FAMILY PRACTICE) Next scheduled visit: None [...] mg/dL on 10/08/2016 Age: 81 Powered by [employer], Reference: [id number], 12/08/2016 1:27:55 PM CDT, Pool: SMG REFILL RN ([id number]) Interface, Out EasyPost Prov Query - 12/08/2016 1:27 PM CDT The [...] hypertension documented in this encounter Care Teams Director Funds Development Relationship Specialty Start Date End Date Iván Eid DO PCP - General Family Practice 10/02/16 10/25/17 [address] [place] [address] documented as of this encounter
--- OUTSIDE RECORDS SUMMARY | 2022-04-08 12:13 | XMS_ITS | Encounter Summary ---
:1935 Author Organization [facility] Address [address], [place] [address] Care Team Providers Name Role Phone Kali Morgan [place] Primary Care Provider Reason for Visit Reason Comments Revisit Right swollen testicle Encounter Details Date Type Department Care Team Description 12/02/2016 Office Visit [facility] Waqas Rodney Or Henok Griffith MD epididymitis ([facility] [address] Dx) [address] [place] [address] [place], [place] [phone] Social History Tobacco Use Types Packs/Day Years [...] unspecified documented in this encounter Care Teams Gasoline Attendant Relationship Specialty Start Date End Date Morgan Bass DO PCP - General Family Practice 10/02/16 10/25/17 [address] [place], [place] [address] documented as of this encounter
--- OUTSIDE RECORDS SUMMARY | 2022-04-08 12:13 | XMS_ITS | Encounter Summary ---
:1935 Author Organization [facility] Address [address] [address] Care Team Providers Name Role Phone Kali Morgan [place] Primary Care Provider Reason for Visit Reason Comments QUESTIONS, GENERAL Encounter Details Date Type Department Care Team Description 08/26/2017 Telephone [facility] [address] [place] [address] [place], [place] [phone] [address] Social History Tobacco Use Types Packs/Day [...] documented as of this encounter Nursing Notes SomTania vázquez RN - 08/26/2017 2:39 PM CDT Spoke with patient and informed him per Val Jordan CNM, Cipro should have decreased swelling after48 hours of taking, if ice/heat and ibuprofen are not decreasing swelling, patient will need to seeka provider in [place] and have a testicular US. Patient states he took 3 ibuprofen about 3 hours ago and that helped with the pain. States the testicle is the size of an egg. Patient advised to try the heat/ice and ibuprofen for another day and see if swelling decreases, if not to see a provider in [place]. Patient verbalized understanding and agrees with the plan. Tania Calloway RN 08/26/2017, 2:47 PM Eileen Rai - 08/26/2017 2:24 PM CDT Please use [phone] Magdalena Klein - 08/26/2017 2:00 PM CDT [...] times larger than left one. Is in [place] currently at [facility], and would like a call back on her phone [phone] or patient's cell phone [phone]. Delivery Motorcycle Driver advised patient to try heat, ice, and [...] Klein - 08/26/2017 8:47 AM CDT Symptoms [Stationary Engineer Supervisor/Appt Center: If this call is after 3 p.m., communicate to patient: If we are not able to get back to you by the end of the day and your symptoms worsen, please contact the Careline [phone] OR at .] Describe your symptoms (if pain, include location): Swollen right testicle. When did they start? 3 days ago. What have you tried at home (please specify medication name, if any)? Antibiotics Have you recently been seen for this? No If a prescription is needed, would you like it filled at a [facility] pharmacy? No: [Stationary Engineer Supervisor/Appt Center: Please add the selected pharmacy to Meds & Orders] Is it okay to leave a detailed message on your voicemail? Yes Is there anything else I can help you with today? Magadlena Bass Please route and warm transfer to: EULOGIO Keenan documented in this encounter Plan of Treatment Not on filedocumented as of this encounter Visit Diagnoses Not on filedocumented in this encounter Care Teams Interpretative Dancer Relationship Specialty Start Date End Date Morgan Bass DO PCP - General Family Practice 10/02/16 10/25/17 [address] [place] [address] documented as of this encounter
--- OUTSIDE RECORDS SUMMARY | 2022-04-08 12:13 | XMS_ITS | Encounter Summary ---
:1935 Author Organization [facility] Address [address] [place] [address] Care Team Providers Name Role Phone Bass Morgan Rose Primary Care Provider [phone] Reason for Visit Reason Comments TIA,TRANSIENT ISCHEMIC ATTACK follow up Encounter Details Date Type Department Care Team Description 04/22/2017 Office Visit [facility] Lianne Feldman brobasilar artery syndrome (Primary Dx); [facility] MD Michaela Hypercholesterolemia; [address] Stenosis of intracranial ves pat; [place], [place] [address] Postural kyphosis of lumbar region; [address] [place], [place] Gastroesophageal reflux dise ase, esophagitis presence not specified [phone] Social History Tobacco Use Types Packs/Day Years [...] Comments Blood Pressure 135/80 04/22/2017 12:16 PM SALES & SERVICE ASSOCIATE Pulse 69 04/22/2017 12:16 PM SALES & SERVICE ASSOCIATE Temperature - - Respiratory Rate - - Oxygen Saturation - - Inhaled Oxygen Concentration - - Weight 104.8 kg (231 lb) 04/22/2017 12:16 PM SALES & SERVICE ASSOCIATE Height - - Body Mass Index 34.61 [...] Testing you will need: ?? Need an actuarial consultant lab appointment so you can come in [...] year, sooner if problems. ?? Schedule the actuarial consultant lab-only appointment for cholesterol Best wishes for [...] if at all possible. Otherwise please call [phone] for an appointment. ?? Due to high [...] community. Medications - Our pharmacies, both the [facility] here at [facility]] and [facility] are great places to get your meds. They are friendly, helpful, and really a great part of our community. vvvvvvvvvvvvvvvvvvvvvvvvvvvvvv S & SERVICE ASSOCIATE documented in this encounter Progress Notes Lianne Feldman MD - 04/22/2017 12:00 PM CST NEUROLOGY FOLLOW-UP VISIT 04/22/2017 PATIENT: Zaid Rutledge Background Please note this document was either typed by me or prepared with voice recognition software which may result in multiple types of errors. Please contact me if clarification is needed. [phone]. Today's visit is with neurologist Lianne Feldman MD, [facility] Primary care doctor: Morgan Bass, Cc: - Zaid Rutledge is a 82 y.o. old male who returns today for neurological followup. 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 He was seen [...] reference. MEDICAL DECISION MAKING 11/26/2016 : ?? Silk Opener Aamir did not have a really robust [...] Testing you will need: ?? Need an actuarial consultant lab appointment so you can come in [...] factors, especially the stenosis of the left SERVICE SECRETARY branch. Discussed this as risk factor, and [...] MOUTH TWICE DAILY ONE HOUR BEFORE A MYON462 Cap 3 ??? pravastatin (PRAVACHOL) 40 MG tablet Take 1 Tab by mouth daily at bedtime. 90 Tab 3 No facility-administered medications prior to visit. Allergies Allergen Reactions ??? Excedrin Extra Strength [Ssdzrjs-Aexlmpgxfxjin-Lwqemqkx] Anaphylaxis ??? Banana Other, see comments Throat [...] 11/16/2016 Overview Note: Right side, branches of SERVICE SECRETARY. High intensity statin therapy indicated for stroke prevention. ??? 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 MRA shows right SERVICE SECRETARY branch stenosis. Increased ASA to 325 mg daily. F/u appt November 26, 2016. ??? Macular degeneration 10/14/2016 Overview Note: Treated at [facility], Dr. Hood ??? Essential hypertension (HRC) [...] localized osteoarthrosis, other specified sites ??? Asthma (HR) ??? Esophageal reflux ??? Polyp of nasal [...] Belt Yes 100 % Social History Narrative Silk Opener. GENERAL PHYSICAL and NEURLOGICAL EXAMINATION BP 135/80 [...] Lianne Rueda MD, Neurologist End note 04/22/2017 S & SERVICE ASSOCIATE documented in this encounter Nursing Notes Shweta Louis - 04/22/2017 12:00 PM CST Zaid Rutledge is a 82 y.o. old male here for follow up tia. 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
--- OUTSIDE RECORDS SUMMARY | 2022-04-08 12:13 | XMS_ITS | Encounter Summary ---
:1935 Author Organization [facility] Address [address] [address] Care Team Providers Name Role Phone Kali Morgan Rose Primary Care Provider Reason for Visit Reason Comments QUESTIONS, GENERAL Questions regarding getting records to Dr. Rodney Encounter Details Date Type Department Care Team Description 09/03/2017 [facility] Waqas Rodney GENERAL [facility] J, MD (Questions regarding [facility] [address] getting records to Dr. Mery Cox ) [place] [address] [place], [place] [phone] Social History Tobacco Use Types Packs/Day Years [...] 9:54 AM CDT Miscellaneous Questions & FYIs [Hospitalist Physician/Appt Center: If this call is after 3 p.m., communicate to patient: If we are not able to get back to you by the end of the day and your symptoms worsen please contact the Careline at [phone] OR at .] What condition are you calling about? Hospital visit in [place] Is this a question/concern or an FYI? Question/Concern What is your question or concern? Patient called from [place] to make appointment with Dr. Rodney next week. Patient wondering if hecan get an email address as Dr. Rodney would like to records from his visit sent so he can take a look at them. Patient was given central fax number to have these records faxed, however, stated he had no way to do have this done. Please call to discuss. Have you recently been seen for this? Yes: In [place] Is it okay to leave a detailed message on your voicemail? Yes Rosemarie Vasquez Please route to: None (Care Team Pool if unable to handle) documented in this encounter Plan of Treatment Not on filedocumented as of this encounter Visit Diagnoses Not on filedocumented in this encounter Care Teams Masonry Contractor Administrator Relationship Specialty Start Date End Date Morgan Bass DO PCP - General Family Practice 10/02/16 10/25/17 [address] [place], [place] [id number] documented as of this encounter
--- OUTSIDE RECORDS SUMMARY | 2022-04-08 12:13 | XMS_ITS | Encounter Summary ---
:1935 Author Organization [facility] Address [address] [place] [address] Care Team Providers Name Role Phone Morgan Bass DO Primary Care Provider Encounter Details Date Type Department Care Team Description 01/19/2017 Lab Visit [facility] Clinic H/O re current urinary [place] [facility] tract infection [address] [place] [address] Social History Tobacco Use Types Packs/Day [...] UA Micro If (01/19/2017 1:45 PM CDT) [facility] gist Method Time Signature Urine [...] 01/19/2017 2:03 PM C DT Performed at [facility], [address] [place] [address] Val Jordan APRN, CNP LAB_1 Performing Organization Address City/State/ZIP Code Phon e Number [facility] [phone] documented in this encounter Visit Diagnoses Diagnosis H/O recurrent urinary tract infection Personal history of urinary (tract) infe ction documented in this encounter Care Teams Bedspread Inspector Relationship Specialty Start Date End Date Mrogan Bass DO PCP - General Family Practice 10/02/16 10/25/17 [address] [place] [address] documented as of this encounter
--- OUTSIDE RECORDS SUMMARY | 2022-04-08 12:13 | XMS_ITS | Encounter Summary ---
:1935 Author Organization [facility] Address [address] [address] Care Team Providers Name Role Phone Morgan Bass DO Primary Care Provider Reason for Visit Reason Comments RESULTS, TEST Encounter Details Date Type Department Care Team Description [facility] Morgan Bass RES, TEST [facility] Pr anjelica Rose DO [address] [place] [address] [address] [phone] [place] [address] (Wo rk) Social History Tobacco [...] on filedocumented in this encounter Care Teams Level Vial Marker Relationship Specialty Start Date End Date Morgan Bass DO PCP - General Family Practice 10/02/16 10/25/17 [address] [place] [address] documented as of this encounter
--- OUTSIDE RECORDS SUMMARY | 2022-04-08 12:13 | XMS_ITS | Encounter Summary ---
:1935 Author Organization [facility] Address [address] [address] Care Team Providers Name Role Phone Kali Morgan Milton Primary Care Provider Reason for Visit Reason Comments QUESTIONS, GENERAL Encounter Details Date Type Department Care Team Description 08/31/2017 Telephone [facility] Waqas Rodney GENERAL [facility] MD [facility] [address] [place] [address] [place], [place] [phone] [address] Social History Tobacco Use Types Packs/Day Years [...] encounter Nursing Notes Waqas Rodney MD - 08/31/2017 2:23 PM CDT Phone call. Doing ok, no fevers. stillhaving orchalgia with heat, ibuprofen and antibiotics. rec Get records from hospital in [place] and fax to us. See me upon [...] patient. Deepika Arellano RN 08/31/2017, 10:23 AM Waqas Guo MD - 08/31/2017 10:10 AM CDT Please find how pt doing. IET Elayne De La Cruz - 08/31/2017 10:08 AM CDT Miscellaneous Questions & FYIs [Hearing Instrument Specialist/Appt Center: If this call is after 3 p.m., communicate to patient: If we are not able to get back to you by the end of the day and your symptoms worsen please contact the Careline at [phone] OR at .] What condition are you calling about? Follow up from Hospital Is this a question/concern or an FYI? Question/Concern What is your question or concern? Patient wants to report to Dr. Rodnye he is doing and has some follow [...] on filedocumented in this encounter Care Teams Mobility Architect Relationship Specialty Start Date End Date Morgan Bass DO PCP - General Family Practice 10/02/16 10/25/17 [address] [place] [address] documented as of this encounter
--- OUTSIDE RECORDS SUMMARY | 2022-04-08 12:13 | XMS_ITS | Encounter Summary ---
:1935 Author Organization [facility] Address [address] [address] Care Team Providers Name Role Phone Kali Morgan Rose Primary Care Provider [phone] Reason for Visit Reason Comments Hematuria Encounter Details Date Type Department Care Team Description 01/07/2017 Telephone [facility] Waqas Rodney MD Hematuria [facility] [address] [place] [address] [address] [facility] [place] [address] [phone] Social History Tobacco Use Types Packs/Day Years [...] with . Transferred her to appointments in [place]. Pt willing to go to [place] today. Thanks. Alejandra Aguila RN 01/07/2017, 9:43 AM Waqas Rodney MD - 01/07/2017 8:58 AM CDT Hydrate well. Stop blood thinners. I am in [place] today. Ideally should be seen by urology [...] Alejandra Aguila RN 01/07/2017, 8:16 AM Rissa Patino V - 01/07/2017 7:37 AM CDT Reason [...] on filedocumented in this encounter Care Teams Stone Unloader Relationship Specialty Start Date End Date Morgan Bass DO PCP - General Family Practice 10/02/16 10/25/17 [address] [place] [address] documented as of this encounter
--- OUTSIDE RECORDS SUMMARY | 2022-04-08 12:13 | XMS_ITS | Encounter Summary ---
:1935 Author Organization [facility] Address [address], [place] [address] Care Team Providers Name Role Phone Morgan Bass DO Primary Care Provider Reason for Visit Reason Comments PELVIC PAIN Encounter Details Date Type Department Care Team Description 12/29/2016 Office Visit [facility] Morgan Bass troesophageal reflux disease, esophagitis presence not specified (Primary Dx); Beatriz Rsoe DO Encounter for long-term (current) use of medications; Practice [address] [place] [address] Essential hypertension [address] [place] [address] [facility] [phone] [place] [id number] Social History Tobacco Use Types Packs/Day Years [...] Gastroesophageal reflux disease-continue on Zantac or Tums [id number]. Did discuss he can discontinue his Prilosec. [...] GREEN HOLD TUBE (12/29/2016 1:54 PM CDT) [facility] gist Method Time Signature Light Green Held in [facility] sample rack for 5 days. Specimen Anatomical Collection Method Collection Time Receive d Time (Source) Location / / Volume Laterality 12/29/2016 1:54 PM 7 1:59 CDT PM CDT Narrative [facility] - 12/29/2016 2:02 PM C DT Performed at [place] [facility] [address], [address] [place] [address] Morgan Bass DO LAB_1 Performing Organization Address City/State/ZIP Code Phon e Number [facility] [phone] Gold Hold Tube (Or Red/[place]) (12/29/2016 1:54 PM CDT) [facility] gist Method Time Signature Gold Hold Held in [facility] sample rack for 5 days. Specimen Anatomical Collection Method Collection Time Receive d Time (Source) Location / / Volume Laterality 12/29/2016 1:54 PM 7 1:59 CDT PM CDT Narrative [facility] - 12/29/2016 2:02 PM C DT Performed at [place] [address], [address] [place] [id number] Morgan Bass DO LAB_1 Performing Organization Address City/State/ZIP Code Phon e Number [facility] [phone] Complete Blood Count-W/Diff (12/29/2016 1:54 PM CDT) [...] [facility] Lymph 34 % [facility] Christian 10 % [facility] Eos 4 % [facility] Baso 1 % [facility] Neutrophil 3.4 1.8 - 7.7 [facility] k/ul [facility] Lymph Absolute 2.2 1.0 - 4.8 [facility]ul [facility] Christian Absolute 0.7 0.1 - 0.7 [facility] k/ul [...] 12/29/2016 2:06 PM C DT Performed at [facility] [address], [address] [place] [address] Morgan Bass DO LAB_1 Performing Organization Address City/State/ZIP Code Phon e Number [facility] [phone] documented in this encounter Visit Diagnoses Diagnosis Gastroesophageal reflux disease, esophag itis presence not specified - Primary Encounter for long-term (current) use of medications Encounter for long-term (current) use of other medications Essential hypertension (HRC) Unspecified essential hypertension documented in this encounter Care Teams Iron Cutter Relationship Specialty Start Date End Date Morgan Bass DO PCP - General Family Practice 10/02/16 10/25/17 [address] [place], [place] [address] documented as of this encounter
--- OUTSIDE RECORDS SUMMARY | 2022-04-08 12:14 | XMS_ITS | Encounter Summary ---
:1935 Author Organization [facility] Address [address] [place] [address] Care Team Providers Name Role Phone Bass Morgan Rose Primary Care Provider [phone] Reason for Visit Reason Comments Tick Bite/Removal left side of abdomen x 3 day s ago; area is still red and sore DIARRHEA x 1 day HEADACHE x 1 day Encounter Details Date Type Department Care Team Description 11/09/2016 Office Visit [facility] Tick b ite of abdominal wall, [...] Allergies Allergen Reactions ??? Excedrin Extra Strength [Ydxjcou-Ozrhnhbpqqybf-Gbvegmzz] Anaphylaxis ??? Banana Other, see comments Throat [...] type documented in this encounter Care Teams Kickboxing Instructor Relationship Specialty Start Date End Date Morgan Bass DO PCP - General Family Practice 10/02/16 10/25/17 [address] [place] [address] documented as of this encounter
--- OUTSIDE RECORDS SUMMARY | 2022-04-08 12:14 | XMS_ITS | Encounter Summary ---
:1935 Author Organization [employer] Address [address] [place] [address] Care Team Providers Name Role Phone Morgan Bass DO Primary Care Provider [phone] Reason for Referral Procedure/Equipment (Routine) - Closed Specialty Diagnoses / Procedures Referred By Contact Refer red To Contact Radiology [place] Diagnoses Vertebrobasilar artery syndrome Hilaria Feldman MD Radiology Procedures MR Angio Neck W/WO IV Cont [address] [place] [address] [place] [address] Referral ID Status Reason Start Date Expiration Date Visits Requ ested Visits Authorized [id number] Closed 10/14/2016 01/13/2018 1 1 Procedure/Equipment (Routine) - Closed Specialty Diagnoses / Procedures Referred By Contact Refer red To Contact Radiology [place] Diagnoses Vertebrobasilar artery syndrome Hilaria Feldman MD Lv Radiology Procedures MR Angio Head WO IV Cont [address] [place] [address] [place] [address] Referral ID Status Reason Start Date Expiration Date Visits Requ ested Visits Authorized [id number] Closed 10/14/2016 01/13/2018 1 1 Procedure/Equipment (Routine) - Closed Specialty Diagnoses / Procedures Referred By Contact Refer red To Contact Radiology [place] Diagnoses Gait disorder Hydrocephalus, acquired (HRC) Hilaria Feldman MD Radiology Procedures FL Lumbar Puncture (For CSF) [address] [place] [address] [place] [address] Referral ID Status Reason Start Date Expiration Date Visits Requ ested Visits Authorized [id number] Closed 10/14/2016 01/13/2018 1 1 Reason for Visit Reason Comments DIZZINESS light headed, double vision question NPH Consult/Transfer Care (Routine) - Closed Specialty Diagnoses / Procedures Referred By Contact Refer red To Contact Diagnoses Gait instability Morgan Bass, [address] [place], [place] [address] Referral ID Status Reason Start Date Expiration Date Visits Requ ested Visits Authorized [id number] Closed 10/06/2016 01/05/2018 1 1 Encounter Details Date Type Department Care Team Description 10/13/2016 Office Visit [facility] Hilaria Feldman Ronda cephalus, acquired (Primary Dx); Beatriz Neurology MD Michaela Gait disorder; [address] V[address] sensory loss; [place], [place] [address] Abnormal reflexes of lower extremity; [id number] BERTHA MICHAEL Vertebrobasilar artery syndr ome [phone] [id number] Social History Tobacco Use Types Packs/Day Years [...] documented in this encounter Patient Instructions Patient Hilaria Plaza MD - 10/13/2016 8:36 AM CDT ASSESSMENT [...] 12 hours, and to be done at [place] on the same day as the spinal tap. Please advise nursing that all the blood tests ordered 10/13/2016 and 10/14/2016 needs to be drawn before the spinal tap. ?? See information below about preparing for the spinal tap. Get really well hydrated the three daysbefore the tap, do not take aspirin the 3 days before, you will need a deliver driver, and bedrest recommended for 24 hours [...] 1935 Consultation with Hilaria Feldman MD, Neurology, [facility] / [facility] Reason for neurology consultation: Gait instability with ventriculomegaly disproportional to sulcal atrophy on imaging, question normal pressure hydrocephalus. Requesting provider: Morgan Bass DO Zaid Gladis Rutledge is a 81 y.o. year old, right handed male. 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 He is semiretired. He [...] 12 hours, and to be done at [place] on the same day as the spinal tap. Please advise nursing that all the blood tests ordered 10/13/2016 and 10/14/2016 needs to be drawn before the spinal tap. ?? See information below about preparing for the spinal tap. Get really well hydrated the three daysbefore the tap, do not take aspirin the 3 days before, you will need a deliver driver, and bedrest recommended for 24 hours [...] syndrome Orders Placed This Encounter ??? Cytology, Non-Appliance Installer (Fluids, Urine, Sputum) ??? CSF Glucose ??? [...] MD Hilaria Feldman MD Neurologist Medical Specialties, [facility] Clinic phone [phone] HISTORY OF THE PRESENT ILLNESS General problem description, context: Seen October 02 by primary doctor, Morgan Bass, DO, 81-year-old male who presents with an [...] to , Urgent Care sent him to [place], hospitalized overnight. Symptoms of Jan similar to last 's sopell. Had eval for TIA in Jan - normal 30 day monitor. Second spell October 02, similar. He does not feel he's walking right, not as steady. Feet do no feel magnetic. Stride length is ? Notsure if smaller, just doesn't feel right, balance off. Has a cane - for back issues, took a trip to [place] and used cane. Travel - [place] day cruise - most of May 2016. No illnesses on trip at all. Did not eat any raw meats. Has been catheterizing every day 10 to 12 times a day, lots of pressure on system from that. 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 No change in mental status. A little memory difficulty with names, but nothing that's gotten his attention. 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 He also does [...] Agree, ventricles look pretty rounded, enlarged. . [facility] CT HEAD WO IV CONT 10/02/2016 11:57 [...] 4.0 ng/ml 6.4 (H) Component Latest Ref Rn 01/16/2016 9:07 PM Troponin I 0.00 - [...] 11.0 fl 10.3 PMN/Band 56 Lymph 29 [place]ard 9 EOS 5 Baso 1 PMN Absolute 1.8 - 7.7 k/ul 4.3 Lymph Absolute 1.0 - 4.8 k/ul 2.2 [place]ard Absolute 0.1 - 0.7 k/ul 0.7 Eos [...] MOUTH TWICE DAILY ONE HOUR BEFORE A [id number] Cap 0 No current facility-administered medications for this visit. Allergies: Allergies Allergen Reactions ??? Excedrin Extra Strength [Zbocfjb-Nsswupgvehtiv-Dlzpragj] Anaphylaxis ??? Banana Other, see comments Throat [...] Belt Yes 100 % Social History Narrative Furnace Process Supervisor. GENERAL PHYSICAL AND NEUROLOGIC EXAMINATION Vital signs: [...] a cogent history. 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 Fund of knowledge is normal [...] and movement: Overall movement speed and amplitude, Lgfwdk-bgob-yjzzyw, bcec-gyxm-qvxq, and rapid alternating movements are executed smoothly, [...] Hilaria Feldman MD Hilaria Feldman MD, Neurologist, [facility] Medical Specialties Dept, [facility] , Clinic phone [phone] End note documented in this encounter Nursing [...] Component Value Ref Test Analysis Performed At [facility] Range Method Time Signature Vitamin E 20.0 [facility] Alpha-Tocophe Reference range: 5.5 to 18.0 [facility] Unit: mg/L (H) Vitamin E (NOTE) [facility] Alpha-Tocophe Test developed and characteristics determined by [facility] ? ? [facility]. See Compliance Statement B: [employer]/ Vitamin E 0.3 [facility] Gamma-Tocophe Reference range: 0.0 to 6.0 [facility]: mg/L Vitamin E (NOTE) [facility] Gamma-Tocophe [address] [facility] [place] [address] [facility] [email or web address], Yan Cates MD, Lab. Director Specimen Anatomical Collection Method Collection Time Receive d Time (Source) Location / / Volume Laterality 10/28/2016 2:35 PM 7 2:40 CDT PM CDT [facility] - 10/30/2016 6:04 PM CD T Performed by [facility], [address] [place] [address] Hilaria Feldman MD LAB_1 Performing Organization Address City/[facility]/ZIP Code Phon e Number [address] [address] Treponema Screen (10/28/2016 2:35 PM CDT) [facility] Method Time Signature Treponema Non Reactive [facility] Screen Reference range: Non Reactive HOSPITAL Specimen Anatomical Collection Method Collection Time Receive d Time (Source) Location / / Volume Laterality 10/28/2016 2:35 PM 7 2:40 CDT PM CDT [facility] - 10/29/2016 4:57 PM CD T Performed at [facility], [address] [place] [address] Hilaria Feldman MD LAB_1 Performing Organization Address City/State/ZIP Code Phon e Number [address] [address] VDRL CSF (10/28/2016 2:35 PM CDT) Patholo gist Method Time Signature T Pallidum Non Reactive [facility] (VDRL) CSF Reference range: Non Reactive HOSPITAL Reflex T Pallidum (NOTE) [facility] (VDRL) CSF Because the VDRL was Non Reactive, the VDRL titer was not ?? HOSPITAL Reflex performed. [address] [facility] [place] [address] [email or web address], Yan aCtes MD, Lab. Director Specimen Anatomical Collection Method Collection Time Receive d Time (Source) Location / / Volume Laterality 10/28/2016 2:35 PM 7 2:40 CDT PM CDT [facility] - 10/30/2016 6:47 PM CD T Performed by [facility], [address] [place] [address] Hilaria Feldman MD LAB_1 Performing Organization Address City/[facility]/ZIP [facility] Phon e Number [address] [address] Methylmalonic Acid Quant (10/28/2016 2:35 PM CDT) Component Value Ref Test Analysis Performed Pathologis t Range Method Time At Signature Methylmalonic 0.14 [facility] Acid Reference range: 0.00 to 0.40 HOSPITAL Unit: umol/L Methylmalonic (NOTE) [facility] Acid INTERPRETIVE INFORMATION: MMA Serum/Plasma, ?? HOSPITAL ? Vitamin B12 Status Test developed and characteristics determined by [facility] ?? Laboratories. See Compliance Statement B: [employer]/ [address] [facility] [place] [address] [email or web address], Yan Cates MD, Lab. Director Specimen Anatomical Collection Method Collection Time Receive d Time (Source) Location / / Volume Laterality 10/28/2016 2:35 PM 7 2:40 CDT PM CDT [facility] - 10/30/2016 12:59 PM C DT Performed by [facility], [address] [facility], [place], [place] [address] Hilaria Feldman MD LAB_1 Performing Organization Address City/State/ZIP Code Phon e Number [address] [address] Borrelia Burgdorferi Antibody CSF (10/28/2016 2:35 PM CDT) Component Value Ref Test Analysis Performed At [facility] gist Range Method Time Signature Lyme [...] ?? Test developed and characteristics determined by [facility] ?? Laboratories. See Compliance Statement B: [employer]/ [address] [facility] [address] [email or web address], Yan Cates MD, Lab. Director Specimen Anatomical Collection Method Collection Time Receive d Time (Source) Location / / Volume Laterality 10/28/2016 2:35 PM 7 2:40 CDT PM CDT [facility] - 10/30/2016 2:49 PM CD T Performed by [facility], [address] [place] [address] Hilaria Feldman MD LAB_1 Performing Organization Address City/[facility] Phon e Number [address] [address] Lyme Antibody, and Western Blot If Needed) (10/28/2016 2:33 PM CDT) Component Value Ref Test Analysis Performed At [facility] Range Method Time Signature Lyme Negative [...] 2:33 PM 7 2:38 CDT PM CDT [facility] - 10/30/2016 10:22 AM C DT Performed at [facility], [address] [place] [address] Hilaria Feldman MD LAB_1 Performing Organization Address [facility] Phon e Number [address] [address] First CSF Cell Count & Diff (10/28/2016 2:31 PM CDT) Component Value Ref Test Analysis Performed At [facility] Range Method Time Signature Source Cerebrospinal [facility] Fluid HOSPITAL Description, CSF Clear [facility] HOSPITAL Tube # TUBE 2 [facility] Xanthochromia Absent [facility] RBC, CSF 1 /ul [facility] Nucleated Cells, 0 0 - 5 [facility] CSF /ul HOSPITAL Specimen Anatomical Location Collection Method Collection Time Received Time (Source) / Laterality / Volume CEREBROSPINAL FLUID 10/28/2016 2:31 10/28 2:36 / Unknown PM CDT PM CDT [facility] - 10/28/2016 4:45 PM CD T Performed at [facility], [address] [place] [address] Hilaria Feldman MD LAB_1 Performing Organization Address City/[facility] Phon e Number [address] [address] CSF Glucose (10/28/2016 2:31 PM CDT) [facility] Method Time Signature Source Cerebrospinal [facility] Glucose, CSF 53 40 - 70 [facility] mg/dl HOSPITAL Comment: The use of this assay to monitor or diag nose patients has not been approved for this specimen type by the FDA or shoe cleaner of this assay. Specimen (Source) Anatomical Collection Method Collection Time Re ceived Time Location / / Volume Laterality Cerebrospinal fluid 10/28/2016 2:31 10/28 specimen (specimen) PM CDT 2:36 PM CDT [facility] - 10/28/2016 3:16 PM CD T Performed at [facility], [address] [place] [address] Hilaria Feldman MD LAB_1 Performing Organization Address City/[facility]/ZIP [facility] Phon e Number [address] [address] Spinal Fluid Culture & Smear (10/28/2016 2:30 PM CDT) Component Value Ref Test Analysis Performed At [facility] Range Method Time Signature Specimen Cerebrospinal [facility] Description Fluid HOSPITAL Special Unspecified [facility] Requests HOSPITAL Gram Smear No Organisms [facility] Seen HOSPITAL Culture No Growth After [facility] 3 Days HOSPITAL Report Status Final 10/31/2016 [facility] Specimen Anatomical Collection Method Collection Time Receive d Time (Source) Location / / Volume Laterality 10/28/2016 2:30 PM 7 2:35 CDT PM CDT Narrative [facility] - 10/31/2016 11:29 AM C DT Performed at [facility], [address] [place] [address] Hilaria Feldman MD LAB_1 Performing Organization Address City/[facility] Phon e Number [address] [id number] Cytology, Non-Appliance Installer (Fluids, Urine, Sputum) (10/28/2016 2:30 PM CDT) [facility] Method Time Signature Cytology (NOTE) [facility] Non-Appliance Installer Cytology Report HOSPIT AL Patient Name: ZAID [...] to make 2 Matthews-stained, single cytospin slides. [facility] Department of Pathology [address] [place] [address] ??[id number] Specimen Anatomical Collection Method Collection Time Receive d Time (Source) Location / / Volume Laterality 10/28/2016 2:30 PM 7 8:33 CDT AM CDT Hilaria Feldman MD LAB_1 Performing Organization Address [facility] Phon e Number [address] [address] (ABNORMAL) Lipid Panel and Direct LDL(If Needed) (10/28/2016 2:29 PM CDT) Component Value Ref Test Analysis Performed At [email or web address] Range Method Time Signature Hours Fasting Information [...] 2:29 PM 7 2:34 CDT PM CDT [facility] - 10/28/2016 4:22 PM CD T Performed at [facility], [address] [place] [address] Ramses Cleary MD LAB_1 Performing Organization Address [facility] Phon e Number [address] [phone] Anti SS-B (La) (10/28/2016 2:29 PM CDT) [email or web address] Method Time Signature Anti-SSB (La) <0.3 0 - 6.9 [facility] Result U/mL [facility] Anti-SSB (NOTE) [facility]pre[employer]. Anti-SSB ([place]) ?Interpretation HOSPITAL VALUE ?of Test Results 0-6.9 ? Negative 7.0-10.0 ?Equivocal >10.0 ? Positive Specimen Anatomical Collection Method Collection Time Receive d Time (Source) Location / / Volume Laterality 10/28/2016 2:29 PM 7 2:34 CDT PM CDT [facility] - 10/29/2016 11:54 AM C DT Performed at [facility], [address] ??[id number] Ramses Cleary MD LAB_1 Performing Organization Address [facility] Phon e Number [phone] [address] [address] Anti SS-A (Ro) (10/28/2016 2:29 PM CDT) [facility] Method Time Signature Anti-SSA (Ro) 0.3 0 - 6.9 [facility] result U/mL [facility] Anti-SSA (NOTE) [facility] Interpre[employer]. Anti-SSA (Ro) ?Interpretation HOSPITAL VALUE ?of Test Results 0-6.9 ? Negative 7.0-10.0 ?Equivocal >10.0 ? Positive Specimen Anatomical Collection Method Collection Time Receive d Time (Source) Location / / Volume Laterality 10/28/2016 2:29 PM 7 2:34 CDT PM CDT Narrative [facility] - 10/29/2016 11:54 AM C DT Performed at [facility], [address] [place] [address] ??[id number] Ramses Cleary MD LAB_1 Performing Organization Address City/State/ZIP Code Phon e Number [address] [phone] [address] [id number] TB Gold, Quantiferon (10/28/2016 2:29 PM CDT) Component Value Ref Test Analysis Performed At [facility] Range Method Time Signature TB Gold, Negative NEG [facility] Quantiferon HOSPITAL TB NIL Value <0.01 IU/mL [facility] TB Ag-NIL <0.01 IU/mL [facility] Mitogen-NIL >10.00 IU/mL [facility] TB Gold (NOTE) [facility] Interpreta. Nil ? [...] 2:29 PM 7 2:34 CDT PM CDT [facility] - 10/30/2016 1:01 PM CD T Performed at [facility] , [address] [place] [address] Ramses Cleary MD LAB_1 Performing Organization Address City/[facility]/ZIP [facility] Phon e Number [address] [address] Igg, Serum (10/28/2016 2:29 PM CDT) athologist Signature IgG, Serum 1,055 540 - 1,822 [facility] mg/dl HOSPITAL Specimen Anatomical Collection Method Collection Time Receive d Time (Source) Location / / Volume Laterality 10/28/2016 2:29 PM 7 2:34 CDT PM CDT [facility] - 10/28/2016 6:27 PM CD T Performed at [facility], [address] [place] [address] ??[id number] Ramses Cleary MD LAB_1 Performing Organization Address City/[facility]/ZIP [facility] Phon e Number [address] [address] Homocysteine (10/28/2016 2:29 PM CDT) athologist Signature Homocysteine, 15.0 5.0 - 15.4 [facility] CV umol/L [facility] Comment: Homocysteine levels drawn 6 to 8 hours a fter consumption of a large, protein rich meal may be elevated by 10 to 15%. Specimen Anatomical Collection Method Collection Time Receive d Time (Source) Location / / Volume Laterality 10/28/2016 2:29 PM 7 2:34 CDT PM CDT [facility] - 10/28/2016 6:45 PM CD T Performed at [facility], [address] [place] [address] ??[phone] Ramses Cleary MD LAB_1 Performing Organization Address [facility] Phon e Number [address] [address] Vitamin B12 Only (10/28/2016 2:29 PM CDT) athologist Signature Vitamin B12 401 213 - 816 [facility] pg/ml HOSPITAL Specimen Anatomical Collection Method Collection Time Receive d Time (Source) Location / / Volume Laterality 10/28/2016 2:29 PM 7 2:34 CDT PM CDT [facility] - 10/28/2016 6:50 PM CD T Performed at [facility], [address] [place] [address] ??[id number] Ramses Cleary MD LAB_1 Performing Organization Address City/[facility] Phon e Number [address] [address] MR Angio Neck W/WO IV Cont (10/28/2016 9:43 AM CDT) Anatomical Region Laterality Modality Neck, Vascular, C-Spine, Skeletal Magnet ic Resonance Specimen (Source) Anatomical Collection Method Collection Time Re ceived Time Location / / Volume Laterality 10/28/2016 9:43 AM CDT Narrative 10/28/2016 3:26 PM CDT [facility] 1. HEAD MRA WITHOUT IV CONTRAST 2. NECK MRA WITHOUT AND WITH IV CONTRAST 10/28/2016 9:35 AM INDICATION: 3 spells of dizziness with d ipplopia, worrisome for TIA especially posterior circulation TECHNIQUE: 1. 3D ucyi-hz-igtmiu head MRA without in travenous contrast. 2. [...] note might be different from the original. [facility] 1. HEAD MRA WITHOUT IV CONTRAST 2. NECK MRA WITHOUT AND WITH IV CONTRAST 10/28/2016 9:35 AM INDICATION: 3 spells of dizziness with d ipplopia, worrisome for TIA especially posterior circulation TECHNIQUE: 1. 3D vqom-ry-yyfdxn head MRA without in travenous contrast. 2. [...] MRA: 1. No significant stenosis of the investigator internal affairs al carotid arteries bilaterally based on NASCET [...] AM CDT Narrative 10/28/2016 3:26 PM CDT [facility] 1. HEAD MRA WITHOUT IV CONTRAST 2. NECK MRA WITHOUT AND WITH IV CONTRAST 10/28/2016 9:35 AM INDICATION: 3 spells of dizziness with d ipplopia, worrisome for TIA especially posterior circulation TECHNIQUE: 1. 3D ptoj-kb-mslafk head MRA without in travenous contrast. 2. [...] note might be different from the original. [facility] 1. HEAD MRA WITHOUT IV CONTRAST 2. NECK MRA WITHOUT AND WITH IV CONTRAST 10/28/2016 9:35 AM INDICATION: 3 spells of dizziness with d ipplopia, worrisome for TIA especially posterior circulation TECHNIQUE: 1. 3D aplj-jr-llpuwd head MRA without in travenous contrast. 2. [...] MRA: 1. No significant stenosis of the investigator internal affairs al carotid arteries bilaterally based on NASCET [...] is not well imaged. Hilaria Feldman MD [facility] MRI Flow Cytometry (10/28/2016 7:00 AM CDT) [facility] Method Time Signature Hematology (NOTE) [facility] [...] and the performance characteristics were determined by [facility]. ??It has not been cleared [...] with H&E finding s during diagnostic evaluation. [facility] Department of Pathology [address] [place] [address] ??[id number] Specimen Anatomical Collection Method Collection Time Receive d Time (Source) Location / / Volume Laterality OTHER / Unknown 10/28/2016 7:00 AM 2016 CDT 11:00 AM CDT Hilaria Feldman MD LAB PATHOLOGY Performing Organization Address City/State/ZIP Code Phon e Number [address] [address] documented in this encounter Visit Diagnoses Diagnosis [...] prostate documented in this encounter Care Teams Home Extension Agent Relationship Specialty Start Date End Date Morgan Bass DO PCP - General Family Practice 10/02/16 10/25/17 [address] [place] [address] documented as of this encounter
--- OUTSIDE RECORDS SUMMARY | 2022-04-08 12:14 | XMS_ITS | Encounter Summary ---
:1935 Author Organization [employer] Address [address], [place] [address] Care Team Providers Name Role Phone No Primary/ReferringAugusta Primary Care Provider Unavailable Encounter Details Date Type Department Care Team Description 10/28/2016 Scanned History [facility] SAFETY AND Imaging [facility], [address] [address] Social History Tobacco Use Types Packs/Day Years [...] filedocumented in this encounter Care Teams Manager Employee Relations Relationship Specialty Start Date End Date No Primary/ReferringAugusta PCP - General 12/11/21 documented as of this encounter
--- OUTSIDE RECORDS SUMMARY | 2022-04-08 12:14 | XMS_ITS | Encounter Summary ---
:1935 Author Organization [email or web address] Address [address] [place] [address] Care Team Providers Name Role Phone Morgan Bass DO Primary Care Provider Encounter Details Date Type Department Care Team Description 10/28/2016 Lab Visit [email or web address] [address] [place], [place] [id number] Social History Tobacco Use Types Packs/Day Years [...] on filedocumented in this encounter Care Teams Tree Planter Relationship Specialty Start Date End Date Morgan Bass DO PCP - General Family Practice 10/02/16 10/25/17 [address] [place] [address] documented as of this encounter
--- OUTSIDE RECORDS SUMMARY | 2022-04-08 12:14 | XMS_ITS | Encounter Summary ---
:1935 Author Organization [facility] Address [address], [place] [address] Care Team Providers Name Role Phone Morgan Bass Primary Care Provider Reason for Visit Reason Comments Prostate Cancer 6 mo check; PSA 5.1 done 10/13 11/29 Encounter Details Date Type Department Care Team Description 11/07/2016 Office Visit [facility] Waqas Rodney ostrashaad cancer (HRC) Beatriz Griffith MD (Primary Dx) [facility] [address] [place] [address] [place], [place] [phone] Social History Tobacco Use Types Packs/Day Years [...] and no recent UTIs Going to the [facility] in [place]. Since the last visit there has been [...] prostate documented in this encounter Care Teams Fly Maker Relationship Specialty Start Date End Date Morgan Bass DO PCP - General Family Practice 10/02/16 10/25/17 [address] [place] [address] documented as of this encounter
--- OUTSIDE RECORDS SUMMARY | 2022-04-08 12:14 | XMS_ITS | Encounter Summary ---
:1935 Author Organization [employer] Address [address] [place] [address] Care Team Providers Name Role Phone Morgan Bass DO Primary Care Provider Reason for Visit Procedure/Equipment (Routine) - Closed Specialty Diagnoses / Procedures Referred By Contact Refer red To Contact Radiology [place] Diagnoses Gait instability Morgan Bass Radiology Procedures MR Brain W/WO IV Cont MR Brain WO IV Cont DO [place] [address] [place] [address] [address] [place] [address] Referral ID Status Reason Start Date Expiration Date Visits Requ ested Visits Authorized [id number] Closed 10/06/2016 01/05/2018 1 1 Encounter Details Date Type Department Care Team Description 10/08/2016 Imaging [facility] Morgan Bass Gait in stability; Radiology MRI DO [place] [facility] [address] [place] [address] [place] [address] [phone] [place], [place] [phone] (Wo rk) Social History Tobacco Use Types [...] enhancement or evidence of intracranial hemorrhage. Morgan Bsas DO RAD MRI Basic Metabolic Panel (10/08/2016 7:48 AM CDT) athologist Signature Sodium 142 136 - 145 [facility] Potassium 4.1 3.5 - 5.1 [facility] Chloride 108 98 - 109 [facility] CO2 23 20 - 29 [facility] Anion Gap 11 7 - 16 [facility] (calc.) [facility]/L [facility] Glucose 104 70 - 180 [facility] mg/dl [facility] Calcium 9.3 8.4 - 10.2 [facility] BUN 18 7 - 26 [facility] Comment: PLEASE NOTE CHANGE IN REFERENCE RANGE Creatinine 1.08 0.73 - 1.18 mg/dl [facility] Comment: PLEASE NOTE CHANGE IN REFERENCE RANGE GFR, Estimated >60 >60 ml/min/1.73m2 [facility] GFR, Est., If Black >60 >60 ml/min/1.73m2 [facility] Specimen Anatomical Collection Method Collection Time Receive d Time (Source) Location / / Volume Laterality 10/08/2016 7:48 AM 7 7:49 CDT AM CDT Narrative [facility] - 10/08/2016 8:21 AM CD T Performed at [facility], [address] [place] [address] Morgan Bass DO LAB_1 Performing Organization Address City/State/ZIP Code Phon e Number [address] [address] documented in this encounter Visit Diagnoses Diagnosis [...] dose documented in this encounter Care Teams Pigment Weigher Relationship Specialty Start Date End Date Morgan Bass DO PCP - General Family Practice 10/02/16 10/25/17 [address] [place] [address] documented as of this encounter
--- OUTSIDE RECORDS SUMMARY | 2022-04-08 12:14 | XMS_ITS | Encounter Summary ---
:1935 Author Organization [facility] Address [address], [place] [address] Care Team Providers Name Role Phone No Primary/ReferringAugusta Primary Care Provider Unavailable Encounter Details Date Type Department Care Team Description 10/08/2016 Scanned History [facility] SAFETY AND Imaging [facility], [address] [address] Social History Tobacco Use Types Packs/Day Years [...] on filedocumented in this encounter Care Teams Dampproofer Relationship Specialty Start Date End Date No Primary/ReferringAugusta PCP - General 12/11/21 documented as of this encounter
--- OUTSIDE RECORDS SUMMARY | 2022-04-08 12:14 | XMS_ITS | Encounter Summary ---
:1935 Author Organization [facility] Address [address], [place] [address] Care Team Providers Name Role Phone Kali Morgan Rose Primary Care Provider Reason for Visit Reason Comments Other Encounter Details Date Type Department Care Team Description 10/14/2016 Telephone [facility] Do eleazar Feldman MD Other [facility] [address] [place] [address] [place] [address] [phone] Social History Tobacco Use Types Packs/Day Years [...] Nursing Notes Cristina Souza RN - 10/15/2016 8:55 AM CDT Spoke with pt. See other phone encounter. Cristina Souza RN 10/15/2016, 8:55 AM [facility] - 10/14/2016 12:19 PM CDT Reason for call? Patient has several questions he would like to ask Dr. Feldman concerning his upcoming spinal tap on 10/28/16. Best time to reach you? anytime Ok to leave a detailed message? yes [facility] ....................................10/14/2016 12:19 PM documented in this encounter Plan of Treatment Not on filedocumented as of this encounter Results Fungus Culture,Miscellaneous (10/28/2016 2:36 PM CDT) Component Value Ref Test Analysis Performed At [facility] Method Time Signature Specimen Cerebrospinal [facility] Description Fluid [facility] Special Unspecified [facility] Requests HOSPITAL Fungus Smear No Yeast or [facility] Fungal Elements HOSPITAL Found Culture No Fungus [facility] Culture No Nocardia [facility] Report Status Final 11/27/2016 [facility] Specimen Anatomical Collection Method Collection Time Receive d Time (Source) Location / / Volume Laterality 10/28/2016 2:36 PM 7 2:41 CDT PM CDT Narrative [facility] - 11/27/2016 7:32 AM CD T Performed at [facility] , [address] [place] [address] Lianne Feldman MD LAB_1 Performing Organization Address City/State/ZIP Code Phon e Number [facility] [address] [place] [address] [address] [employer] Culture (10/28/2016 2:36 PM CDT) Component Value Ref Test Analysis Performed At [facility] Method Time Signature Specimen Cerebrospinal [facility] Description Fluid [facility] Special Unspecified [facility] Requests HOSPITAL AFB Smear No Acid Fast [facility] Bacilli Found [facility]OSPITAL AFB Smear Total specimen [facility] volume in cc's: [facility]OSPITAL 2 Culture No Mycobacteria [facility] Report Status Final 12/25/2016 [facility] Specimen Anatomical Collection Method Collection Time Receive d Time (Source) Location / / Volume Laterality 10/28/2016 2:36 PM 7 2:41 CDT PM CDT Narrative [facility] - 12/25/2016 6:21 AM CD T Performed at [facility] , [address] [place] [address] Lianne Feldman MD LAB_1 Performing Organization Address City/State/[facility] Phon e Number [address] [address] documented in this encounter Visit Diagnoses Diagnosis Hydrocephalus, acquired ([facility]) - Primary Obstructive hydrocephalus Gait disorder Abnormality of gait Hydrocephalus, acquired ([facility]) Obstructive hydrocephalus Encounter for long-term (current) use of medications Encounter for long-term (current) use of other medications Vibration sensory loss Disturbance of skin sensation Vertebrobasilar artery syndrome PROSTATE CANCER Malignant neoplasm of prostate documented in this encounter Care Teams Kosher Dietary Service Supervisor Relationship Specialty Start Date End Date Morgan Bass DO PCP - General Family Practice 10/02/16 10/25/17 [address] [place] [address] documented as of this encounter
--- OUTSIDE RECORDS SUMMARY | 2022-04-08 12:14 | XMS_ITS | Encounter Summary ---
:1935 Author Organization [facility] Address [address] [place] [address] Care Team Providers Name Role Phone Morgan Bass Primary Care Provider Reason for Visit Reason Comments Refill allopurinol Encounter Details Date Type Department Care Team Description 11/02/2016 Refill [facility] Ramses Cleary, Refill (allopurinol) [facility] Pr anjelica MURRAY [address] [place] [address] [address] [phone] [place] [address] Social History Tobacco Use Types Packs/Day Years [...] Endocrinology: Gout Agents - Allopurinol -> GFR ([place]) was found, but the result could not [...] 10/28/2016 HGB: 15.7 g/dL on 01/16/2016 GFR ([place]): Taken on 10/08/2016 HCT: 46 % on 01/16/2016 Age: 81 PLT: 202 k/cmm on 01/16/2016 RBC: 4.96 m/cmm on 01/16/2016 RDW: 13.2 % on 01/16/2016 WBC: 7.6 k/cmm on 01/16/2016 Powered by [employer], Reference: [id number], 11/02/2016 10:42:32 AM CDT, Pool: SMG REFILL RN ([id number]) Interface, Out [employer] Prov Query - 11/02/2016 10:42 AM CDT [...] neurology on Thursday as planned. Interface, Out [employer] Query - 11/02/2016 10:42 AM CDT The [...] on filedocumented in this encounter Care Teams Regulatory Process Manager Relationship Specialty Start Date End Date Morgan Bass DO PCP - General Family Practice 10/02/16 10/25/17 [address] [place] [address] documented as of this encounter
--- OUTSIDE RECORDS SUMMARY | 2022-04-08 12:14 | XMS_ITS | Encounter Summary ---
:1935 Author Organization [facility] Address [address] [address] Care Team Providers Name Role Phone Morgan Bass DO Primary Care Provider [phone] Reason for Visit Reason Comments ROUTINE, FOLLOW-UP QUESTIONS, GENERAL spinal tap Encounter Details Date Type Department Care Team Description 10/16/2016 Office Visit [facility] Morgan Bass (Primary Dx); Beatriz Rose DO [facility] [address] [place] [address] [address] [facility] [place] [address] [place], [place] [phone] Social History Tobacco Use Types Packs/Day Years [...] in this encounter Progress Notes Morgan Bass, DO - 10/16/2016 9:48 AM CDT Chief Complaint [...] MOUTH TWICE DAILY ONE HOUR BEFORE A [id number] Cap 0 No current facility-administered medications for [...] hypertension documented in this encounter Care Teams Senior Java Web Application Developer Relationship Specialty Start Date End Date Morgan Bass DO PCP - General Family Practice 10/02/16 10/25/17 [address] [place] [address] documented as of this encounter
--- OUTSIDE RECORDS SUMMARY | 2022-04-08 12:14 | XMS_ITS | Encounter Summary ---
:1935 Author Organization [employer] Address [address] [place] [address] Care Team Providers Name Role Phone Morgan Bass DO Primary Care Provider [phone] Reason for Visit Procedure/Equipment (Routine) - Closed Specialty Diagnoses / Procedures Referred By Contact Refer red To Contact Radiology [place] Diagnoses Gait disorder Hydrocephalus, acquired (HRC) Hilaria Guzman MD Radiology Procedures [place] Lumbar Puncture (For CSF) [address] [address] [place] [address] Referral ID Status Reason Start Date Expiration Date Visits Requ ested Visits Authorized [id number] Closed 10/14/2016 01/13/2018 1 1 Encounter Details Date Type Department Care Team Description 10/28/2016 Imaging [facility] Hilaria Guzman MD [address] [place] [address] Gait disorder; Imaging [facility], Lv Nurse [address] [place] [address] [phone] Hydrocephalus, acquired; [address] [place] [address] Radiologist, [address] [place] [address] Encounter for long-term (current) use of medications; [place] [address] Vibration sensory loss; [phone] Vertebrobasilar artery syndrome; PROSTATE CANCER Social History [...] review with patient at that time. Mike Waqas Rodney MD - 10/28/2016 4:49 PM CDT [...] are i n the results section. CYTOLOGY, NON-GYMNASTIC COACH Routine 10/28/2016 2:30 Hydrocephalus, Resul ts for [...] Component Value Ref Test Analysis Performed At [facility] [employer] Range Method Time Signature Specimen Cerebrospinal [facility] Description Fluid [facility] Special Unspecified [facility] Requests HOSPITAL Fungus Smear No Yeast or [facility] Fungal Elements HOSPITAL Found Culture No Fungus [facility] Culture No Nocardia [facility] Report Status Final 11/27/2016 [facility] Specimen Anatomical Collection Method Collection Time Receive d Time (Source) Location / / Volume Laterality 10/28/2016 2:36 PM 7 2:41 CDT PM CDT Narrative [facility] - 11/27/2016 7:32 AM CD T Performed at [facility] , [address] [place] [id number] Hilaria Guzman MD LAB_1 Performing Organization Address City/State/ZIP Code Phon e Number [address] [id number] AFB Culture (10/28/2016 2:36 PM CDT) Component Value Ref Test Analysis Performed At [facility] Method Time Signature Specimen Cerebrospinal [facility] Description Fluid [facility] Unspecified [facility] Requests HOSPITAL AFB Smear No Acid Fast [facility] Bacilli Found HOSPITAL AFB Smear Total specimen [facility] volume in cc's: HOSPITAL 2 Culture No Mycobacteria [facility] Isolated [facility] Report Status Final 12/25/2016 [facility] Specimen Anatomical Collection Method Collection Time Receive d Time (Source) Location / / Volume Laterality 10/28/2016 2:36 PM 7 2:41 CDT PM CDT Narrative [facility] - 12/25/2016 6:21 AM CD T Performed at [facility] , [address] [place] [id number] Hilaria Guzman MD LAB_1 Performing Organization Address City/State/ZIP Code Phon e Number [address] [address] [place] Lumbar Puncture (For CSF) (10/28/2016 2:35 [...] Component Value Ref Test Analysis Performed At [facility] Micro[employer] Range Method Time Signature Vitamin E 20.0 [facility] Alpha-Tocophe Reference range: 5.5 to 18.0 [facility] Unit: mg/L (H) Vitamin E (NOTE) [facility] Alpha-Tocophe Test developed and characteristics determined by [facility] ? ? [facility]. See Compliance Statement B: [employer]/ Vitamin E 0.3 [facility] Gamma-Tocophe Reference range: 0.0 to 6.0 [facility] Unit: mg/L Vitamin E (NOTE) [facility] Gamma-[employer]ocophe [address] [place] [address] [facility] www.[employer], Yan Cates MD, Lab. Director Specimen Anatomical Collection Method Collection Time Receive d Time (Source) Location / / Volume Laterality 10/28/2016 2:35 PM 7 2:40 CDT PM CDT Narrative [facility] - 10/30/2016 6:04 PM CD T Performed by [facility], [address] [place], [place] [address] Hilaria Guzman MD LAB_1 Performing Organization Address City/State/ZIP Code Phon e Number [address] [address] Treponema Screen (10/28/2016 2:35 PM CDT) [facility] Method Time Signature Treponema Non Reactive [facility] Screen Reference range: Non Reactive HOSPITAL Specimen Anatomical Collection Method Collection Time Receive d Time (Source) Location / / Volume Laterality 10/28/2016 2:35 PM 7 2:40 CDT PM CDT [facility] - 10/29/2016 4:57 PM CD T Performed at [facility], [facility] [place] [address] Hilaria Guzman MD LAB_1 Performing Organization Address [facility] Phon e Number [address] [address] VDRL CSF (10/28/2016 2:35 PM CDT) Patholo gist Method Time Signature T Pallidum Non Reactive [facility] (VDRL) CSF Reference range: Non Reactive HOSPITAL Reflex T Pallidum (NOTE) [facility] (VDRL) CSF Because the VDRL was Non Reactive, the VDRL titer was not ?? HOSPITAL Reflex performed. [address] [place] [address] www.[employer], Yan Cates MD, Lab. Director Specimen Anatomical Collection Method Collection Time Receive d Time (Source) Location / / Volume Laterality 10/28/2016 2:35 PM 7 2:40 CDT PM CDT [facility] - 10/30/2016 6:47 PM CD T Performed by [facility], [address] [place], [place] [address] Hilaria Guzman MD LAB_1 Performing Organization Address [facility] Phon e Number [address] [address] Methylmalonic Acid Quant (10/28/2016 2:35 PM CDT) Component Value Ref Test Analysis Performed Pathologis t Range Method Time At Signature Methylmalonic 0.14 [facility] Acid Reference range: 0.00 to 0.40 HOSPITAL Unit: umol/L Methylmalonic (NOTE) [facility] Acid INTERPRETIVE INFORMATION: MMA Serum/Plasma, ?? HOSPITAL ? Vitamin B12 Status Test developed and characteristics determined by [facility]. See Compliance Statement B: [employer]/ [address], [place] [address] www.[employer], Yan Cates MD, Lab. Director Specimen Anatomical Collection Method Collection Time Receive d Time (Source) Location / / Volume Laterality 10/28/2016 2:35 PM 7 2:40 CDT PM CDT [facility] - 10/30/2016 12:59 PM C DT Performed by [facility], [facility] [place] [address] Hilaria Guzman MD LAB_1 Performing Organization Address City/State/ZIP Code Phon e Number [address] [address] Borrelia Burgdorferi Antibody CSF (10/28/2016 2:35 PM CDT) Component Value Ref Test Analysis Performed At [facility] gist Range Method Time Signature Lyme Ab [...] ?? Test developed and characteristics determined by [facility]. See Compliance Statement B: [employer]/[address] [address] www.[employer], Yan Cates MD, Lab. Director Specimen Anatomical Collection Method Collection Time Receive d Time (Source) Location / / Volume Laterality 10/28/2016 2:35 PM 7 2:40 CDT PM CDT [facility] - 10/30/2016 2:49 PM CD T Performed by [facility], [address] [place] [id number] Hilaria Guzman MD LAB_1 Performing Organization Address City/State/ZIP Code Phon e Number [phone] [address] [address] Lyme Antibody, and Western Blot If Needed) (10/28/2016 2:33 PM CDT) Component Value Ref Test Analysis Performed At [facility] Range Method Time Signature Lyme Negative [...] 2:33 PM 7 2:38 CDT PM CDT [facility] - 10/30/2016 10:22 AM C DT Performed at [facility], [address] [place] [id number] Hilaria Guzman MD LAB_1 Performing Organization Address City/[facility]/ZIP Code Phon e Number [address] [address] First CSF Cell Count & Diff (10/28/2016 2:31 PM CDT) Component Value Ref Test Analysis Performed At [facility] Range Method Time Signature Source Cerebrospinal [facility] Fluid HOSPITAL Description, CSF Clear [facility] HOSPITAL Tube # TUBE 2 [facility] Xanthochromia Absent [facility] RBC, CSF 1 /ul [facility] Nucleated Cells, 0 0 - 5 [facility] CSF /ul HOSPITAL Specimen Anatomical Location Collection Method Collection Time Received Time (Source) / Laterality / Volume CEREBROSPINAL FLUID 10/28/2016 2:31 10/28 2:36 / Unknown PM CDT PM CDT [facility] - 10/28/2016 4:45 PM CD T Performed at [facility], [address] [place] [address] Hilaria Guzman MD LAB_1 Performing Organization Address City/[facility] Phon e Number [address] [address] CSF Glucose (10/28/2016 2:31 PM CDT) [employer] [facility] Method Time Signature Source Cerebrospinal [facility] Glucose, CSF 53 40 - 70 [facility] mg/dl HOSPITAL Comment: The use of this assay to monitor or diag nose patients has not been approved for this specimen type by the FDA or deputy coroner investigator of this assay. Specimen (Source) Anatomical Collection Method Collection Time Re ceived Time Location / / Volume Laterality Cerebrospinal fluid 10/28/2016 2:31 10/28 specimen (specimen) PM CDT 2:36 PM CDT [facility] - 10/28/2016 3:16 PM CD T Performed at [facility], [address] [place] [address] Hilaria Guzman MD LAB_1 Performing Organization Address City/State/ZIP Code Phon e Number [address] [address] Spinal Fluid Culture & Smear (10/28/2016 2:30 PM CDT) Component Value Ref Test Analysis [facility]formed [facility] Range Method Time Signature Specimen Cerebrospinal [facility] Description Fluid HOSPITAL Special Unspecified [facility] Requests HOSPITAL Gram Smear No Organisms [facility] Seen HOSPITAL Culture No Growth After [facility] 3 Days HOSPITAL Report Status Final 10/31/2016 [facility] Specimen Anatomical Collection Method Collection Time Receive d Time (Source) Location / / Volume Laterality 10/28/2016 2:30 PM 7 2:35 CDT PM CDT Narrative [facility] - 10/31/2016 11:29 AM C DT Performed at [facility], [address] [place], [place] [id number] Hilaria Guzman MD LAB_1 Performing Organization Address City/State/ZIP Code Phon e Number [address] [address] Cytology, Non-Office Cleaner (Fluids, Urine, Sputum) (10/28/2016 2:30 PM CDT) [facility] Method Time Signature Cytology (NOTE) [facility] Non-Office Cleaner Cytology Report HOSPIT [place] Patient Name: ZAID [...] to make 2 Matthews-stained, single cytospin slides. [facility] Department of Pathology [address] [place] [address] ??[id number] Specimen Anatomical Collection Method Collection Time Receive d Time (Source) Location / / Volume Laterality 10/28/2016 2:30 PM 7 8:33 CDT AM CDT Hilaria Guzman MD LAB_1 Performing Organization Address [facility] Phon e Number [address] [address] (ABNORMAL) Prostatic Specific Antigen (F/U) (10/28/2016 2:29 [...] 2:29 PM 7 2:34 CDT PM CDT [facility] - 10/28/2016 4:42 PM CD T Performed at [facility], [address] [place] [address] Ramses Cleary MD LAB_1 Performing Organization Address City/[facility] Phon e Number [address] [address] (ABNORMAL) Lipid Panel and Direct LDL(If Needed) [...] mg/dl HOSPITAL Non HDL Chol, 191 mg/dl [facility] Calc [facility] Specimen Anatomical Collection Method Collection Time Receive d Time (Source) Location / / Volume Laterality 10/28/2016 2:29 PM 7 2:34 CDT PM CDT [facility] - 10/28/2016 4:22 PM CD T Performed at [facility], [address] [place] [address] Ramses Cleary MD LAB_1 Performing Organization Address [facility]/ZIP [facility] Phon e Number [address] [phone] [address] [address] Anti SS-B (La) (10/28/2016 2:29 PM CDT) [facility] gist Method Time Signature Anti-SSB (La) <0.3 0 - 6.9 [facility] Result U/mL HOSPITAL Anti-SSB (NOTE) [facility] Interpreta. Anti-SSB ([place]) ?Interpretation HOSPITAL VALUE ?of Test Results 0-6.9 ? Negative 7.0-10.0 ?Equivocal >10.0 ? Positive Specimen Anatomical Collection Method Collection Time Receive d Time (Source) Location / / Volume Laterality 10/28/2016 2:29 PM 7 2:34 CDT PM CDT [facility] - 10/29/2016 11:54 AM C DT Performed at [facility], [address] [place] [address] ??[id number] Ramses Cleary MD LAB_1 Performing Organization Address [facility] Phon e Number [phone] [phone] Anti SS-A (Ro) (10/28/2016 2:29 PM CDT) [facility] Method Time Signature Anti-SSA (Ro) 0.3 0 - 6.9 [facility] result U/mL HOSPITAL Anti-SSA (NOTE) [facility] Interpreta. Anti-SSA (Ro) ?Interpretation HOSPITAL VALUE ?of Test Results 0-6.9 ? Negative 7.0-10.0 ?Equivocal >10.0 ? Positive Specimen Anatomical Collection Method Collection Time Receive d Time (Source) Location / / Volume Laterality 10/28/2016 2:29 PM 7 2:34 CDT PM CDT Narrative [facility] - 10/29/2016 11:54 AM C DT Performed at [facility], [address] ??[phone] Ramses Cleary MD LAB_1 Performing Organization Address City/State/ZIP Code Phon e Number [phone] [phone] TB Gold, Quantiferon (10/28/2016 2:29 PM CDT) Component Value Ref Test Analysis Performed At [facility] Range Method Time Signature TB Gold, Negative NEG [facility] HOSPITAL TB NIL Value <0.01 IU/mL [facility] [...] 2:29 PM 7 2:34 CDT PM CDT [facility] - 10/30/2016 1:01 PM CD T Performed at [facility] , [address] [place] [address] Ramses Cleary MD LAB_1 Performing Organization Address [facility]/ZIP [facility] e Number [address] [address] Igg, Serum (10/28/2016 2:29 PM CDT) athologist Signature IgG, Serum 1,055 540 - 1,822 [facility] mg/dl [facility] Specimen Anatomical Collection Method Collection Time Receive d Time (Source) Location / / Volume Laterality 10/28/2016 2:29 PM 7 2:34 CDT PM CDT [facility] - 10/28/2016 6:27 PM CD T Performed at [facility], [address] [place] [address] ??[phone] Ramses Cleary MD LAB_1 Performing Organization Address [facility] e Number [address] [address] Homocysteine (10/28/2016 2:29 PM CDT) athologist Signature Homocysteine, 15.0 5.0 - 15.4 [facility] CV umol/L [facility] Comment: Homocysteine levels drawn 6 to 8 hours a fter consumption of a large, protein rich meal may be elevated by 10 to 15%. Specimen Anatomical Collection Method Collection Time Receive d Time (Source) Location / / Volume Laterality 10/28/2016 2:29 PM 7 2:34 CDT PM CDT [facility] - 10/28/2016 6:45 PM CD T Performed at [facility], [address] [place] [address] ??[phone] Ramses Cleary MD LAB_1 Performing Organization Address City/State/ZIP Code Phon e Number [address] [address] Vitamin B12 Only (10/28/2016 2:29 PM CDT) P athologist Signature Vitamin B12 401 213 - 816 [facility] pg/ml HOSPITAL Specimen Anatomical Collection Method Collection Time Receive d Time (Source) Location / / Volume Laterality 10/28/2016 2:29 PM 7 2:34 CDT PM CDT [facility] - 10/28/2016 6:50 PM CD T Performed at [facility], [address] [place] [address] ??[phone] Ramses Cleary MD LAB_1 Performing Organization Address [facility]/ZIP Code Phon e Number [address] [address] ALT (SGPT) (10/28/2016 2:29 PM CDT) athologist Signature ALT (SGPT) 31 0 - 55 U/L [facility] Specimen Anatomical Collection Method Collection Time Receive d Time (Source) Location / / Volume Laterality 10/28/2016 2:29 PM 7 2:34 CDT PM CDT [facility] - 10/28/2016 4:22 PM CD T Performed at [facility], [address] [place] [id number] Ramses Cleary MD LAB_1 Performing Organization Address City/[facility]/ZIP Code Phon e Number [address] [address] Flow Cytometry (10/28/2016 7:00 AM CDT) [facility] Method Time Signature Hematology (NOTE) [facility] Flow Cytometry Report HOSPITAL Patient Name: ZAID [...] and the performance characteristics were determined by [facility]. ??It has not been cleared or [...] with H&E finding s during diagnostic evaluation. [facility] Department of Pathology [address] [place] [address] ??[address] Specimen Anatomical Collection Method Collection Time Receive d Time (Source) Location / / Volume Laterality OTHER / Unknown 10/28/2016 7:00 AM 2016 CDT 11:00 AM CDT Hilaria Guzman MD LAB PATHOLOGY Performing Organization Address City/State/[facility] Phon e Number [address] [phone] documented in this encounter Visit Diagnoses Diagnosis Gait disorder Abnormality of gait Hydrocephalus, acquired (HRC) Obstructive hydrocephalus Encounter for long-term (current) use of medications Encounter for long-term (current) use of other medications Vibration sensory loss Disturbance of skin sensation Vertebrobasilar artery syndrome PROSTATE CANCER Malignant neoplasm of prostate documented in this encounter Care Teams Rehab Department Manager Relationship Specialty Start Date End Date Morgan Bass DO PCP - General Family Practice 10/02/16 10/25/17 [address] [place], [place] [address] documented as of this encounter
--- OUTSIDE RECORDS SUMMARY | 2022-04-08 12:14 | XMS_ITS | Encounter Summary ---
:1935 Author Organization [employer] Address [address] [place] [address] Care Team Providers Name Role Phone Morgan Bass DO Primary Care Provider [phone] Reason for Visit Procedure/Equipment (Routine) - Closed Specialty Diagnoses / Procedures Referred By Contact Refer red To Contact Radiology [place] Diagnoses Vertebrobasilar artery syndrome Lianne Feldman MD Lv Radiology Procedures MR Angio Neck W/WO IV Cont [address] [place] [address] [place] [address] Referral ID Status Reason Start Date Expiration Date Visits Requ ested Visits Authorized [id number] Closed 10/14/2016 01/13/2018 1 1 Encounter Details Date Type Department Care Team Description 10/28/2016 Imaging [facility] Lianne Feldman Verteb robasilar artery Radiology MRI MD syndrome [address] [place] [address] [address] [place] [address] [address] [phone] [place] [address] Social History Tobacco Use Types Packs/Day Years [...] AM CDT Narrative 10/28/2016 3:26 PM CDT [facility] 1. HEAD MRA WITHOUT IV CONTRAST 2. NECK MRA WITHOUT AND WITH IV CONTRAST 10/28/2016 9:35 AM INDICATION: 3 spells of dizziness with d ipplopia, worrisome for TIA especially posterior circulation TECHNIQUE: 1. 3D [id number] head MRA without in travenous contrast. 2. [...] note might be different from the original. [facility] 1. HEAD MRA WITHOUT IV CONTRAST 2. NECK MRA WITHOUT AND WITH IV CONTRAST 10/28/2016 9:35 AM INDICATION: 3 spells of dizziness with d ipplopia, worrisome for TIA especially posterior circulation TECHNIQUE: 1. 3D [id number] head MRA without in travenous contrast. 2. [...] MRA: 1. No significant stenosis of the news internship al carotid arteries bilaterally based on [...] dose documented in this encounter Care Teams Society Editor Relationship Specialty Start Date End Date Morgan Bass DO PCP - General Family Practice 10/02/16 10/25/17 [address] [place] [address] documented as of this encounter
--- OUTSIDE RECORDS SUMMARY | 2022-04-08 12:14 | XMS_ITS | Encounter Summary ---
:1935 Author Organization [facility] Address [address], [place] [address] Care Team Providers Name Role Phone Morgan Bass DO Primary Care Provider Encounter Details Date Type Department Care Team Description 11/02/2016 Refill Order [facility] Morgan Bass Family Pr anjelica Rose DO [address] [place] [address] [address] [phone] [place], [place] [id number] (Wo rk) Social History Tobacco Use Types [...] encounter Progress Notes Lorene Manley, AFTAB - 11/06/2016 10:37 AM CDT Lab ordered per refill standing order. Lorene Manley CMA 11/06/2016, 10:38 AM documented in this encounter Nursing Notes Interface, Out [employer] Prov Query - 11/02/2016 10:42 AM CDT ORDER THE FOLLOWING: - COMPLETE BLOOD COUNT: Pended to encounter. SCHEDULE THE FOLLOWING: - COMPLETE BLOOD COUNT BY: 01/10/2017 (Coming due as of 01/10/2017 for multiple medications including allopurinol (AKA ZYLOPRIM) 100 MG tablet) - LAST QUALIFYING VISIT IN [facility]: 10/16/2016 - NEXT SCHEDULED VISIT: None - NEXT LAB APPOINTMENT: None Powered by [employer], Reference: [id number], 11/02/2016 10:42:33 AM CDT, Pool: PETER JEFFERY RN ([id number]) Interface, Out [employer] Query - 11/02/2016 10:42 AM CDT The [...] neurology on Thursday as planned. Interface, Out [employer] Prov Query - 11/02/2016 10:42 AM CDT [...] [facility] Lymph 34 % [facility] Jasper 10 % [facility] Eos 4 % [facility] Baso 1 % [facility] Neutrophil 3.4 1.8 - 7.7 [facility] Lymph Absolute 2.2 1.0 - 4.8 [facility] Jasper Absolute 0.7 0.1 - 0.7 [facility] k/ul [...] 12/29/2016 2:06 PM C DT Performed at [facility] [place], [address] [place] [address] Morgan Bass DO LAB_1 Performing Organization Address City/State/ZIP Code Phon e Number [facility] [phone] documented in this encounter Visit Diagnoses Diagnosis Encounter for long-term (current) use of medications - Primary Encounter for long-term (current) use of other medications Gastroesophageal reflux disease, esophag itis presence not specified - Primary Encounter for long-term (current) use of medications Encounter for long-term (current) use of other medications Essential hypertension (HRC) Unspecified essential hypertension documented in this encounter Care Teams Bicycle Designer Relationship Specialty Start Date End Date Morgan Bass DO PCP - General Family Practice 10/02/16 10/25/17 [address] [place], [place] [phone] documented as of this encounter
--- OUTSIDE RECORDS SUMMARY | 2022-04-08 12:14 | XMS_ITS | Encounter Summary ---
:1935 Author Organization [employer] Address [address] [address] Care Team Providers Name Role Phone Morgan Bass DO Primary Care Provider Encounter Details Date Type Department Care Team Description 10/28/2016 Hospital Encounter [facility] Kee Becerra, LAZARO [address] [address] [place] [address] [phone] (Wo rk) Social History Tobacco Use Types [...] from the original note were not included. [facility] [phone] Emergency & Urgently Needed Care: For emergencies call 911 and/or get medical help right away. If you are a [facility] member and have medical needs after clinic hours [phone] or . Special Instruction: Activities: Rest today [...] your doctor if you can take an vmnt-ncg-uksahjb medicine. ?? If you think your pain [...] Where can you learn more? Go to [employer]/Chevia and enter P586 in the search box. Current as of: February 21, 2014 Content Version: 10.4 ?? 8872-7909 [employer]. documented in this encounter Medications at Time [...] home health clinician.] fluticasone (AKA Place 1 [place] into 0 08/03/2013 FLONASE) 50 MCG/ACT both [...] Feldman MD - 10/28/2016 12:39 PM CDT [facility], SAME DAY SURGERY, SPINAL TAP, 10/14/2016 Patient Identification: Zaid Rutledge, 1935 ENDO/Endo Pool Bed NEUROLOGIST: Lianne Feldman MD on 10/28/2016 REASON FOR NEUROLOGY EVALUATION: Possible normal pressure hydrocephalus, evaluate gait before and after high volume lumbar puncture, and cognitive testing. 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 He is accompanied by his and daughter, [...] stenosis, for which you had the operation oniversary in 2015.?? It could also be from a large fiber neuropathy which is less urgent toinvestigate than the?? normal pressure hydrocephalus and probable TIA.?? First step is some blood testing.?? PLAN, 10/13/2016 : ?? Testing you will need: ?? Blood testing - fasting 12 hours, and to be done at [facility] on the same day as the spinal tap.??Please advise nursing that all the blood tests ordered 10/13/2016 and 10/14/2016 needs to be drawn before the spinal tap. ?? See information below about preparing for the spinal tap.?? Get really well hydrated the three days before the tap, do not take aspirin the 3 days before, you will need a chain saw driver, and bedrest recommended for 24 hours [...] syndrome ? Orders Placed This Encounter? Cytology, Non-Pacu Nurse (Fluids, Urine, Sputum)? CSF Glucose? Flow Cytometry? [...] NPH. 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 His and daughter state he continues to [...] Allergies Allergen Reactions ??? Excedrin Extra Strength [Ucmnsfc-Urvdkbsudpwge-Hhlccann] Anaphylaxis ??? Banana Other, see comments Throat [...] me. 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 End note Time: 58 minutes spent in [...] on filedocumented in this encounter Care Teams Seasonal Clerk Relationship Specialty Start Date End Date Morgan Bass DO PCP - General Family Practice 10/02/16 10/25/17 [address] [place] [address] documented as of this encounter
--- OUTSIDE RECORDS SUMMARY | 2022-04-08 12:14 | XMS_ITS | Encounter Summary ---
:1935 Author Organization [facility] Address [address] [place] [address] Care Team Providers Name Role Phone Kali Morgan Rose Primary Care Provider Reason for Visit Reason Comments Refill omeprazole Encounter Details Date Type Department Care Team Description 11/02/2016 Refill [facility] Ramses Cleary, Refill (omeprazole) [facility] Pr anjelica MURRAY [address] [place] [address] [address] [phone] [place] [address] Social History Tobacco Use Types Packs/Day Years [...] Rehman RN 11/02/2016, 12:15 PM Interface, Out Prevently Query - 11/02/2016 10:42 AM CDT omeprazole (PRILOSEC) 20 MG capsule [Pharmacy Med Name: OMEPRAZOLE 20MG CAPSULES] Protocol: Gastroenterology: Antiulcer - Proton Pump Inhibitors -> Refill x 12 months (until due for an office visit) Last qualifying visit: 10/16/2016 (in [facility]) Next scheduled visit: None Last ordered by RAMSES CLEARY E: 08/05/2016 (89 days ago) QTY: 180, Refills: 0, Sig: take one capsule by mouth twice daily one hour before a meal (unchanged) Age: 81 Powered by [employer], Reference: [id number], 11/02/2016 10:42:32 AM CDT, Pool: PETER JEFFERY RN ([id number]) documented in this encounter Plan of Treatment Not on filedocumented as of this encounter Visit Diagnoses Not on filedocumented in this encounter Care Teams Manufacturing Engineer Relationship Specialty Start Date End Date Morgan Bass DO PCP - [facility] 10/02/16 10/25/17 [address] [place] [address] documented as of this encounter
--- OUTSIDE RECORDS SUMMARY | 2022-04-08 12:14 | XMS_ITS | Encounter Summary ---
:1935 Author Organization [facility] Address [address] [address] Care Team Providers Name Role Phone Kali Morgan Rose Primary Care Provider Encounter Details Date Type Department Care Team Description 10/14/2016 Telephone [facility] Do eleazar Feldman MD [facility] [address] [place] [address] [place] [address] [phone] Social History Tobacco Use Types Packs/Day Years [...] imaging before last batch of surgeries at [facility]. Which may be why he is leaning [...] 12 hours, and to be done at [facility] on the same day as the spinal tap.??Please advise nursing that all the blood tests ordered 10/13/2016 and 10/14/2016 needs to be drawn before the spinal tap. ?? See information below about preparing for the spinal tap.?? Get really well hydrated the three days before the tap, do not take aspirin the 3 days before, you will need a stage driver, and bedrest recommended for 24 hours [...] visit, call patient and advise ready to pickle cutter or view on-line. Also adivse I reviewed [...] on filedocumented in this encounter Care Teams Aviation Survival Technician Relationship Specialty Start Date End Date Morgan Bass DO PCP - General Family Practice 10/02/16 10/25/17 [address] [place] [address] documented as of this encounter
--- OUTSIDE RECORDS SUMMARY | 2022-04-08 12:14 | XMS_ITS | Encounter Summary ---
:1935 Author Organization [facility] Address [address] [place] [address] Care Team Providers Name Role Phone Morgan Bass DO Primary Care Provider [phone] Reason for Visit Procedure/Equipment (Routine) - Closed Specialty Diagnoses / Procedures Referred By Contact Refer red To Contact Radiology [place] Diagnoses Vertebrobasilar artery syndrome Lianne Feldman MD [facility] Procedures MR Angio Head WO IV Cont [address] [place] [address] [place] [address] Referral ID Status Reason Start Date Expiration Date Visits Requ ested Visits Authorized [id number] Closed 10/14/2016 01/13/2018 1 1 Encounter Details Date Type Department Care Team Description 10/28/2016 Imaging [facility] Lianne Feldman Verteb robasilar artery Radiology MRI MD syndrome [address] [place] [address] [address] [place] [address] [address]VD [phone] [place] [address] Social History Tobacco Use Types Packs/Day Years [...] TIA especially posterior circulation TECHNIQUE: 1. 3D hdho-bk-tqfvtt head MRA without in travenous contrast. 2. [...] TIA especially posterior circulation TECHNIQUE: 1. 3D rwot-oe-klydca head MRA without in travenous contrast. 2. [...] MRA: 1. No significant stenosis of the general internal medicine physician al carotid arteries bilaterally based on NASCET [...] syndrome documented in this encounter Care Teams Director Of Technology Relationship Specialty Start Date End Date Morgan Bass DO PCP - General Family Practice 10/02/16 10/25/17 [address] [place] [address] documented as of this encounter
--- OUTSIDE RECORDS SUMMARY | 2022-04-08 12:14 | XMS_ITS | Encounter Summary ---
:1935 Author Organization [facility] Address [address] [address] Care Team Providers Name Role Phone Kali Morgan Lopezantionette MURGUIA Primary Care Provider [phone] Encounter Details Date Type Department Care Team Description 10/28/2016 Surgery [facility] Generic Surgeon, LUMBAR PUNCTURE 7 [facility] [place] [address] Social History Tobacco Use Types [...] from the original note were not included. [facility] [phone] Emergency & Urgently Needed Care: For emergencies call 911 and/or get medical help right away. If you are a [facility] member and have medical needs after clinic hours you may call the [facility]at [phone] or . Special Instruction: Activities: Rest today [...] experience and that you can definitely recommend [facility] to your family and friends. Lumbar [...] your doctor if you can take an jmkh-wnt-tpwdoze medicine. ?? If you think your pain [...] Where can you learn more? Go to [employer]/Narrato and enter P586 in the search box. Current as of: February 21, 2014 Content Version: 10.4 ?? 5185-1329 [employer], [employer]. documented in this encounter Medications at Time [...] home health clinician.] fluticasone (AKA Place [address] [place] into 0 08/03/2013 FLONASE) 50 MCG/ACT both [...] Feldman MD - 10/28/2016 12:39 PM CDT [facility], SAME DAY SURGERY, SPINAL TAP, 10/14/2016 Patient Identification: Zaid Rutledge, 1935 ENDO/Endo Pool Bed NEUROLOGIST: Lianne Feldman MD on 10/28/2016 REASON FOR NEUROLOGY EVALUATION: Possible normal pressure hydrocephalus, evaluate gait before and after high volume lumbar puncture, and cognitive testing. 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 He is accompanied by his and daughter, [...] 12 hours, and to be done at [facility] on the same day as the spinal tap.??Please advise nursing that all the blood tests ordered 10/13/2016 and 10/14/2016 needs to be drawn before the spinal tap. ?? See information below about preparing for the spinal tap.?? Get really well hydrated the three days before the tap, do not take aspirin the 3 days before, you will need a school bus driver, and bedrest recommended for 24 hours [...] syndrome ? Orders Placed This Encounter? Cytology, Non-Gang Head Saw Operator (Fluids, Urine, Sputum)? CSF Glucose? Flow Cytometry? [...] NPH. 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 His and daughter state he continues to [...] Allergies Allergen Reactions ??? Excedrin Extra Strength [Nixkonx-Dzvthcgouectn-Nkctpmos] Anaphylaxis ??? Banana Other, see comments Throat [...] me. 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 End note Time: 58 minutes spent [...] mortality documented in this encounter Care Teams Php Lamp Developer Relationship Specialty Start Date End Date Morgan Bass, DO PCP - General Family Practice 10/02/16 10/25/17 [address] [place] [address] documented as of this encounter
--- OUTSIDE RECORDS SUMMARY | 2022-04-08 12:14 | XMS_ITS | Encounter Summary ---
:1935 Author Organization [employer] Address [address] [place] [address] Care Team Providers Name Role Phone No Primary/ReferringAugusta Primary Care Provider Unavailable Encounter Details Date Type Department Care Team Description 10/28/2016 Consent for [place] Same Day Surgery [facility] Procedure/Treatme [address] [facility], [place] [address] Provider [phone] Social History Tobacco Use Types Packs/Day Years [...] on filedocumented in this encounter Care Teams Rn Chemical Dependency Relationship Specialty Start Date End Date No Primary/ReferringAugusta PCP - General 12/11/21 documented as of this encounter
--- OUTSIDE RECORDS SUMMARY | 2022-04-08 12:15 | XMS_ITS | Encounter Summary ---
:1935 Author Organization [employer] Address [address] [address] Care Team Providers Name Role Phone Ramses Cleary MD Primary Care Provider Unavailable Reason for Visit Reason Comments Pre-travel Counseling Encounter Details Date Type Department Care Team Description 03/25/2016 Office Visit [facility] Wandy Goff PA-C Counseling for travel (Primary Dx); Medicine [address] Issue of medical certificate; [address] [place], [place] [phone] Social History Tobacco Use Types Packs/Day Years [...] if you have questions after yourvisit - [phone]. Some individuals have side effects from vaccines. [...] arm less sore. Call the clinic at [phone] if: -Your fever is greater than 100 [...] Make copies of passport; 1 for traveling front office specialist, 1 for friends or family residing in the [place] along with [place] embassy information [place] with the [place] embassy upon arrival at destination or on government internet site if staying more than 3 months These products are available from the [facility] at the [facility]. Medical Kits: PAWS Antimicrobial Hand Wipes Purell Hand drug worker CeraLyte Rehydration Salts Bacon SPF 45 Sunblock, 2 oz Water Purification: Endure Antimicrobial Soap Katadyn Water Purification Tablets Micropur Tablets, Water Treatment, 30 Pack Pristine Water Purification System Bottled Water Mosquito Nets Expedition Multi-Use Hanging Mosquito Net Check screens for holes (bring duct tape!) Mosquito Repellents: Ultrathon Lotion 34% Deet 3M Ultrathon Cream, 2 oz Bacon Permethrin Soak Treatment Kit Bacon Permethrin, 15 oz pump n spray Miscellaneous: Patient given the Web site for the Transportation and Security Administration: Www.T2 Systems.gov/travelers/index.shtm Adapter Kit Maryan to help your kids [...] and staying for 22 day(s). Detailed itinerary: [facility], [facility], [place], [place], [facility], [place], [facility], [facility], [facility], [facility], [place], [place], [place], [facility], [place], [facility], [facility], [facility]. Patient will be staying on a cruise [...] Allergen Reaction Noted ??? Excedrin extra strength [khesdye-bhijrqoazhefb-rrdyfkvm] Anaphylaxis 01/16/2016 ??? Banana Other, see comments [...] address w/ pmd Influenza: Needs seasonal vaccine Georgian encephalitis: will not be in area where there is risk. Measles/MMR: immune by disease and born prior to [birth year] MMRV: see MMR and Varicella Meningococcal: at [...] sleeping under mosquito nets at night Emailed fina report Counseling on traveler's diarrhea We discussed [...] on first aid kit. Emailed copy of Seaters print-out. Discussed safety and security: Recommended making copies of passport; 1 for traveling front office specialist, 1 for friends or family residing in [...] visit for individual counseling was 30-44 minutes [34265], all of which was spent in counseling time, including reviewing the past medical and vaccination history, the travel itinerary, the risks of travel and suggested precautions, and the recommended vaccines and medicines with their side effects -- all for upcoming travel. Wandy Goff PA-C documented in this encounter Plan of Treatment Not on filedocumented as of this encounter Visit Diagnoses Diagnosis Counseling for travel - Primary Other specified counseling Issue of medical certificate Other issue of medical certificates Preventive medication therapy needed documented in this encounter Care Teams Ship Construction Teacher Relationship Specialty Start Date End Date Ramses Cleary MD PCP - General Family Practice 10/21/11 documented as of this encounter
--- OUTSIDE RECORDS SUMMARY | 2022-04-08 12:15 | XMS_ITS | Encounter Summary ---
:1935 Author Organization [employer] Address [address] [place] [address] Care Team Providers Name Role Phone Ramses Cleary MD Primary Care Provider Unavailable Encounter Details Date Type Department Care Team Description 02/25/2016 Orders Only External to Ramses Cleary MD [address] [place] [address] Social History Tobacco Use Types Packs/Day Years [...] Name Priority Date/Time Associated Diagnosis Comme nts STREET LIGHT SERVICER HELPER 02/25/2016 12:00 AM Resul ts for this CDT procedure are i n the results section. documented in this encounter Results STREET LIGHT SERVICER HELPER (02/25/2016 12:00 AM CDT) Specimen (Source) Anatomical Location Collection Method / Collectio n Time Received Time / Laterality Volume 02/25/2016 Narrative This result has an attachment that is no t available. Ramses Cleary MD DUMMY/OTHER/AR documented in this encounter Visit Diagnoses Not on filedocumented in this encounter Care Teams Project Structural Engineer Relationship Specialty Start Date End Date Ramses Cleary MD PCP - General Family Practice 10/21/11 documented as of this encounter
--- OUTSIDE RECORDS SUMMARY | 2022-04-08 12:15 | XMS_ITS | Encounter Summary ---
:1935 Author Organization [facility] Address [address], [place] [address] Care Team Providers Name Role Phone Ramses Cleary MD Primary Care Provider Unavailable Encounter Details Date Type Department Care Team Description 08/05/2016 Refill Order [facility] Alexei Cleary MD [facility] [address] [place] [address] [place] [address] Social History Tobacco Use Types Packs/Day Years [...] scheduling needs. Shruthi Alcantar 08/08/2016, 12:30 PM RAL RESOURCES INSPECTOR documented in this encounter Nursing Notes Interface, Out Tigerspike Prov Query - 08/05/2016 9:57 AM CST ORDER THE FOLLOWING: - ALANINE AMINOTRANSFERASE (ALT): Pended to encounter. SCHEDULE THE FOLLOWING: - OFFICE VISIT BY: 10/13/2016 (Coming due as of 10/13/2016 for multiple medications including allopurinol (AKA ZYLOPRIM) 100 MG tablet) - ALANINE AMINOTRANSFERASE (ALT) BY: 10/13/2016 (Coming due as of 10/13/2016 for allopurinol (AKA ZYLOPRIM) 100 MG tablet) - LAST QUALIFYING VISIT IN [facility]: 10/19/2015 - NEXT SCHEDULED VISIT: None - NEXT LAB APPOINTMENT: None Powered by [employer], Reference: [id number], 08/05/2016 9:57:08 AM MINERAL RESOURCES INSPECTOR, Pool: PETER JEFFERY RN ([id number]) RAL RESOURCES INSPECTOR documented in this encounter Plan of Treatment Not on filedocumented as of this encounter Results ALT (SGPT) (10/28/2016 2:29 PM CDT) P athologist Signature ALT (SGPT) 31 0 - 55 U/L [facility] Specimen Anatomical Collection Method Collection Time Receive d Time (Source) Location / / Volume Laterality 10/28/2016 2:29 PM 7 2:34 CDT PM CDT [facility] - 10/28/2016 4:22 PM CD T Performed at [facility], [address] [place] [id number] Ramses Cleary MD LAB_1 Performing Organization Address City/State/ZIP Code Phon e Number [address] [phone] documented in this encounter Visit Diagnoses Diagnosis [...] prostate documented in this encounter Care Teams Pricing Associate Relationship Specialty Start Date End Date Ramses Cleary MD PCP - General Family Practice 10/21/11 documented as of this encounter
--- OUTSIDE RECORDS SUMMARY | 2022-04-08 12:15 | XMS_ITS | Encounter Summary ---
:1935 Author Organization [facility] Address [address], [place] [address] Care Team Providers Name Role Phone Ramses Cleary MD Primary Care Provider Unavailable Reason for Visit Reason Comments SWELLING, TOES L great toe pain 2 days some redenss and swelling hx of gout Encounter Details Date Type Department Care Team Description 08/23/2016 Office Visit [facility] Gout i nvolving toe of [facility] re left foot, unspecified [address] [place], [place] [address] chronicity (Primary Dx) [phone] Social History Tobacco Use Types Packs/Day Years [...] Comments Blood Pressure 130/80 08/23/2016 10:04 AM FORENSICS TEAM DIRECTOR Pulse 76 08/23/2016 10:04 AM FORENSICS TEAM DIRECTOR Temperature 36.8 ??C (98.2 ??F) 08/23/2016 10:04 AM FORENSICS TEAM DIRECTOR Respiratory Rate 12 08/23/2016 10:04 AM FORENSICS TEAM DIRECTOR Oxygen Saturation - - Inhaled Oxygen Concentration - - Weight 106.1 kg (234 lb) 08/23/2016 10:04 AM FORENSICS TEAM DIRECTOR Height - - Body Mass Index 35.06 [...] your doctor if you can take an zxxq-smu-ocvvswx medicine. ?? Eat less seafood and red [...] can you learn more? 1. Go to [employer] or [employer]/Social Genius. 2. Enter E531 in the search box. Current as of: August 08, 2015 Content Version: 11.0 ?? 2698-1020 Modo[employer], [employer]. Purine-Restricted Diet: Care Instructions Your Care Instructions [...] can you learn more? 1. Go to [employer] or [employer]. 2. Enter F448 in the search box. Current as of: May 04, 2015 Content Version: 11.0 ?? [id number] SwiftPayMD(TM) by [employer]. NSICS TEAM DIRECTOR documented in this encounter Progress Notes Pia [...] Allergies Allergen Reactions ??? Excedrin Extra Strength [Nadhcya-Jqauejbyrsifl-Qjxtbini] Anaphylaxis ??? Banana Other, see comments Throat [...] plan. Pia Ruiz PA-C 08/23/2016, 1:03 PM NSICS TEAM DIRECTOR documented in this encounter Plan of Treatment Not on filedocumented as of this encounter Visit Diagnoses Diagnosis Gout involving toe of left foot, unspeci fied cause, unspecified chronicity - Primary documented in this encounter Care Teams Gravity Prospector Relationship Specialty Start Date End Date Ramses Cleary MD PCP - General Family Practice 10/21/11 documented as of this encounter
--- OUTSIDE RECORDS SUMMARY | 2022-04-08 12:15 | XMS_ITS | Encounter Summary ---
:1935 Author Organization [email or web address] Address [address], [place] [address] Care Team Providers Name Role Phone Morgan Bass DO Primary Care Provider [phone] Reason for Referral Procedure/Equipment (Routine) - Closed Specialty Diagnoses / Procedures Referred By Contact Refer red To Contact Radiology [place] Diagnoses Gait instability Morgan Bass Radiology Procedures MR Brain W/WO IV Cont MR Brain WO IV Cont DO [place] [address] [facility] [address] [place] [address] Referral ID Status Reason Start Date Expiration Date Visits Requ ested Visits Authorized [id number] Closed 10/06/2016 01/05/2018 1 1 Consult/Transfer Care (Routine) - Closed Specialty Diagnoses / Procedures Referred By Contact Refer red To Contact Diagnoses Gait instability Morgan Bass DO [address] [place], [place] [address] Referral ID Status Reason Start Date Expiration Date Visits Requ ested Visits Authorized [id number] Closed 10/06/2016 01/05/2018 1 1 Scheduling Instructions Your provider has recommended an appoint ment with a [facility] Specialist. You may call [phone] to schedule your appointment. If you prefer, a crew scheduler will contact you within the id xt 3 business days to assist you in setting up this appointment. We suggest you call your health insurance company about your coverage and benefits for this appointme nt. Reason for Visit Reason Comments Establish Care Encounter Details Date Type Department Care Team Description 10/06/2016 Office Visit [facility] Morgan Bass (Primary Dx); [facility] DO PROSTATE CANCER; Practice [address] Essential hypertension [address] [place] [address] [place], [place] [phone] Social History Tobacco Use Types Packs/Day Years [...] CDT documented in this encounter Progress Notes Bass, Morgan Rose, DO - 10/06/2016 10:35 AM CDT Chief [...] complete workup with cardiac echocardiogram and a monitor technician and I discussed at this point I [...] MOUTH TWICE DAILY ONE HOUR BEFORE A [id number] Cap 0 No current facility-administered medications for [...] RANGE Creatinine 1.08 0.73 - 1.18 mg/dl [facility] Comment: PLEASE NOTE CHANGE IN REFERENCE RANGE GFR, Estimated >60 >60 ml/min/1.73m2 [facility] GFR, Est., If Black >60 >60 ml/min/1.73m2 [facility] Specimen Anatomical Collection Method Collection Time Receive d Time (Source) Location / / Volume Laterality 10/08/2016 7:48 AM 7 7:49 CDT AM CDT Narrative [facility] - 10/08/2016 8:21 AM CD T Performed at [facility], [address] [place], [place] [address] Morgan Bass DO LAB_1 Performing Organization Address City/State/ZIP Code Phon e Number [address] [address] documented in this encounter Visit Diagnoses Diagnosis Gait instability - Primary Abnormality of gait PROSTATE CANCER Malignant neoplasm of prostate Essential hypertension ([facility]) Unspecified essential hypertension Gait instability Abnormality of gait PROSTATE CANCER Malignant neoplasm of prostate documented in this encounter Care Teams Purchase Price Analyst Relationship Specialty Start Date End Date Morgan Bass DO PCP - General Family Practice 10/02/16 10/25/17 [address] [place] [address] documented as of this encounter
--- OUTSIDE RECORDS SUMMARY | 2022-04-08 12:15 | XMS_ITS | Encounter Summary ---
:1935 Author Organization [facility] Address [address], [place] [address] Care Team Providers Name Role Phone No Primary/Referring, [place] Primary Care Provider Unavailable Encounter Details Date Type Department Care Team Description 10/29/2015 Consent for [facility] Surg IP Svc [facility] Procedure/Treatme [address] [facility], [place] [address] Provider [phone] Social History Tobacco Use Types Packs/Day Years [...] on filedocumented in this encounter Care Teams Shoe Repairman Relationship Specialty Start Date End Date No Primary/ReferringAugusta PCP - General 12/11/21 documented as of this encounter
--- OUTSIDE RECORDS SUMMARY | 2022-04-08 12:15 | XMS_ITS | Encounter Summary ---
:1935 Author Organization [employer] Address [address], [place] [address] Care Team Providers Name Role Phone Morgan Bass DO Primary Care Provider Reason for Visit Procedure/Equipment (Routine) - Closed Specialty Diagnoses / Procedures Referred By Contact Refer red To Contact Diagnoses Vertigo Morgan Bass DO Procedures CT Head WO IV Cont [address] [place], [place] [address] Referral ID Status Reason Start Date Expiration Date Visits Requ ested Visits Authorized [id number] Closed 10/02/2016 01/01/2018 1 1 Encounter Details Date Type Department Care Team Description 10/02/2016 Imaging [facility] Radiology [place] er, Morgan Rose DO Vertigo [facility] [address] [facility] [address] [place] [address] [place] [address] [phone] Social History Tobacco Use Types Packs/Day Years [...] AM CDT Narrative 10/02/2016 1:05 PM CDT [facility] CT HEAD WO IV CONT 10/02/2016 [...] note might be different from the original. [facility] CT HEAD WO IV CONT 10/02/2016 [...] giddiness documented in this encounter Care Teams Top Screw Relationship Specialty Start Date End Date Morgan Bass DO PCP - General Family Practice 10/02/16 10/25/17 [address] [place], [place] [id number] documented as of this encounter
--- OUTSIDE RECORDS SUMMARY | 2022-04-08 12:15 | XMS_ITS | Encounter Summary ---
:1935 Author Organization [facility] Address [address], [place] [address] Care Team Providers Name Role Phone Ramses Cleray MD Primary Care Provider Unavailable Encounter Details Date Type Department Care Team Description 04/18/2016 Lab Visit [facility] Elevat ed prostate [facility] specific antigen (PSA) [address] [place] [address] Social History Tobacco Use Types Packs/Day [...] SPECIFIC ANTIGEN (F/U) (04/18/2016 10:30 AM CDT) [facility] gist Method Time Signature Prostatic Spec 6.4 (H) 0.0 - 4.0 [facility] Ag ng/ml [facility] Specimen Anatomical Collection Method Collection Time Receive d Time (Source) Location / / Volume Laterality 04/18/2016 10:30 04/18/2016 AM CDT 10:43 AM CDT Narrative [facility] - 04/18/2016 11:44 AM CDT Performed at [facility], [address] [place] [address] Waqas Rodney MD LAB_1 Performing Organization Address City/State/ZIP Code Phon e Number [facility] [phone] documented in this encounter Visit Diagnoses Diagnosis Elevated prostate specific antigen (PSA) documented in this encounter Care Teams Blunger Relationship Specialty Start Date End Date Ramses Cleary MD PCP - General Family Practice 10/21/11 documented as of this encounter
--- OUTSIDE RECORDS SUMMARY | 2022-04-08 12:15 | XMS_ITS | Encounter Summary ---
:1935 Author Organization [facility] Address [address] [address] Care Team Providers Name Role Phone Ramses Cleary MD Primary Care Provider Unavailable Reason for Visit Reason Comments Hearing Aid pairing compilot with remote sudha Encounter Details Date Type Department Care Team Description 04/21/2016 Office Visit [facility] Maryan Edward, Sens orineural hearing [facility] & AU.D. loss of both ears Hearing Center [address] (Primary Dx) [address] [address] [phone] Social History Tobacco Use Types Packs/Day Years [...] Patient Instructions Patient InstructionsBMaryan mcclain AU.D. - 04/21/2016 12:46 PM CST Hearing aid check: Thank you for choosing [facility] for your Hearing Aid needs. Please see Hearing Aid record of sales documents provided to you at the time of your hearing aid purchase for serial number and warranty information. For questions regarding your visit or to schedule a return Audiology appointment, please call [phone]. If you require urgent after hours care, please call the Care Line at [phone]. Hearing Preservation: It is important to preserve your hearing. Personal headphone devices should be worn at levels not higher than 50% of the volume range. Hearing protection (ear plugs) should be worn wherever appropriate, including use of lawn mowers, snow blowers, chain saws, power tools, firearms, and while listening to live music. Hearing protection is available from all [facility] locations. Resources: Smoke and Carbon Monoxide detectors: Special smoke and carbon Monoxide alerting devices for individuals with hearing loss can be obtained from [employer]. or www.MoodMe Telephone: Amplified and Caption(ing) telephone products may be available to you at no charge through the [place] Department of Human Services Telephone Equipment Distribution program (AMISH). This is an income based program. The phone number is 145-732-0325 (voice) or 196-588-7252 (TTY). www.TapPress.org. [facility] has printed AMISH program information available upon request. LE LIP TURNER documented in this encounter Progress Notes Maryan [...] the patient when he returns from his [facility] in the new year for an audiogram and hearing aid check. 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
--- OUTSIDE RECORDS SUMMARY | 2022-04-08 12:15 | XMS_ITS | Encounter Summary ---
:1935 Author Organization [facility] Address [address], [place] [address] Care Team Providers Name Role Phone Ramses Cleary MD Primary Care Provider Unavailable Reason for Visit Procedure/Equipment (Routine) - Closed Specialty Diagnoses / Procedures Referred By Contact Refer red To Contact Cardiology Filemon Woods, Heart [address] TheoInvasive Non-Invasive [address] [place] [address] [place] [address] Referral ID Status Reason Start Date Expiration Date Visits Requ ested Visits Authorized [id number] Closed 01/17/2016 04/17/2017 1 1 Encounter Details Date Type Department Care Team Description 01/18/2016 Procedure Visit [facility] [place] Woods, at [facility] NonKassiinvasive [address] [place] [address] [place] [address] [phone] (Wo rk) Social History Tobacco Use Types [...] Patient web-enrolled for 30-day event monitor via [employer]. [employer] will send monitor to patient's home. LARS Peter, CCRP documented in this encounter Plan of Treatment Scheduled Referrals Name Type Priority Associated Diagnoses Order S [facility] Event Monitor Referral Referral Routine Order ed: 01/17/2016 documented as of this encounter Visit Diagnoses Not on filedocumented in this encounter Care Teams Framer Relationship Specialty Start Date End Date Ramses Cleary MD PCP - General Family Practice 10/21/11 documented as of this encounter
--- OUTSIDE RECORDS SUMMARY | 2022-04-08 12:15 | XMS_ITS | Encounter Summary ---
:1935 Author Organization [facility] Address [address] [address] Care Team Providers Name Role Phone Ramses Cleary MD Primary Care Provider Unavailable Reason for Visit Reason Comments FOLLOW-UP,HOSPITAL Encounter Details Date Type Department Care Team Description 10/31/2015 Telephone [facility] Ramses Cleary, FOLLOW-UP,[facility] anjelica MURRAY [address] [place] [address] [address] [phone] [place] [address] Social History Tobacco Use Types Packs/Day Years [...] on filedocumented in this encounter Care Teams Drop Hammer Set Up Operator Relationship Specialty Start Date End Date Ramses Cleary MD PCP - General Family Practice 10/21/11 documented as of this encounter
--- OUTSIDE RECORDS SUMMARY | 2022-04-08 12:15 | XMS_ITS | Encounter Summary ---
:1935 Author Organization [facility] Address [address], [place] [address] Care Team Providers Name Role Phone Ramses Cleary MD Primary Care Provider Unavailable Reason for Visit Reason Comments Hearing Aid hearing aid check Encounter Details Date Type Department Care Team Description 04/29/2016 Office Visit [facility] Maryan Edward, Sens orineural hearing [facility] & AU.D. loss of both ears Hearing Center [address] (Primary Dx) [address] [place] [address] [phone] Social History Tobacco Use Types Packs/Day Years [...] Hearing aid check: Thank you for choosing [facility] for your Hearing Aid needs. Please see Hearing Aid record of sales documents provided to you at the time of your hearing aid purchase for serial number and warranty information. For questions regarding your visit or to schedule a return Audiology appointment, please call [phone]. If you require urgent after hours care, please call the Care Line at [phone]. Hearing Preservation: It is important to preserve your hearing. Personal headphone devices should be worn at levels not higher than 50% of the volume range. Hearing protection (ear plugs) should be worn wherever appropriate, including use of lawn mowers, snow blowers, chain saws, power tools, firearms, and while listening to live music. Hearing protection is available from all [facility] Aud[facility] locations. Resources: Smoke and Carbon Monoxide detectors: Special smoke and carbon Monoxide alerting devices for individuals with hearing loss can be obtained from [employer]. or www.[employer] Telephone: Amplified and Caption(ing) telephone products may be available to you at no charge through the [place] Department of Human Services Telephone Equipment Distribution program (AMISH). This is an income based program. The phone number is 140-974-3701 (voice) or [phone] (TTY). www.Nurigene.org. [facility] has printed AMISH program information available upon request. X UNIX ADMINISTRATOR documented in this encounter Progress Notes Maryan Edward AU.D. - 04/29/2016 1:19 PM CST SUBJECTIVE Zaid Rutledge was seen today for hearing aid follow up check. He was re-paired with the new remote [facility] with hearing aids and compilot. OBJECTIVE Zaid [...] aid check. 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
--- OUTSIDE RECORDS SUMMARY | 2022-04-08 12:15 | XMS_ITS | Encounter Summary ---
:1935 Author Organization [employer] Address [address] [place] [address] Care Team Providers Name Role Phone Ramses Cleary MD Primary Care Provider Unavailable Reason for Referral Consult/Transfer Care (Routine) - Closed Specialty Diagnoses / Procedures Referred By Contact Refer red To Contact Brian Thomas P A-C [address] [place] [address] Referral ID Status Reason Start Date Expiration Date Visits Requ ested Visits Authorized [id number] Closed 10/30/2015 01/28/2017 1 1 Scheduling Instructions Follow up with your doctor TCO in 2 week s Consult/Transfer Care (Routine) - Closed Specialty Diagnoses / Procedures Referred By Contact Refer red To Contact Douglas Mae MD [address] [place] [address] Referral ID Status Reason Start Date Expiration Date Visits Requ ested Visits Authorized [id number] Closed 10/29/2015 01/27/2017 1 1 Scheduling Instructions Your provider has recommended an appoint ment with a [facility] Specialist. You may call [phone] to schedule your appointment. (Routine) - Incomplete Specialty Diagnoses / Procedures Referred By Contact Refer red To Contact Procedures Douglas Mae MD XR C-ARM 1.5-2 HOURS [address] [place] [address] Referral ID Status Reason Start Date Expiration Date Visits V isits Requested Authorized [id number] Incomplete 10/29/2015 01/27/2017 1 1 Reason for Visit Auth/Cert Specialty Diagnoses / Procedures Referred By Contact Refer red To Contact Diagnoses lumbar spinal stenosis Procedures FORAMINOTOMY POSTERIOR APPROACH LUMBAR SPINE, Laterality: Left Referral ID Status Reason Start Date Expiration Date Visits Requ ested Visits Authorized [id number] 1 1 Encounter Details Date Type Department Care Team Description 10/29/2015 - Hospital Encounter LV Med Surg Douglas Mae 10/30/2015 927 [facility] [address] [place] [address] [place], [place] [phone] (Wo rk) Social History Tobacco Use Types [...] Jeffries, PT - 10/30/2015 12:00 PM CDT [facility] Physical Therapy Discharge Summary Zaid Rutledge [...] Thomas PA-C - 10/30/2015 9:27 AM CDT [facility] Discharge Summary: Spine Admit Date: [...] acetaminophen 500 MG tablet Commonly known as: aka TYLENOL EXTRA STRENGTH ibuprofen 200 MG tablet Commonly known as: aka MOTRIN Follow-Up Care: The patient will be followed in the office in 2 weeks NAME: Brian Thomas PA-C PHONE NUMBER: [phone] For information about patient referrals and other discharge orders, please see Discharge Instructions or the Other Orders tab in Chart Review. --End of Report-- documented in this encounter Discharge Instructions Discharge InstructionsArcelia Elias RN - 10/30/2015 11:23 AM CDT Contact Information [address] [address] Main or [phone] Same Day Surgery, M-F 7am to 5pm: [phone] Clinic Phone Numbers [facility] [phone] [facility] Orth[facility] [phone] Emergency & Urgently Needed Care: For emergencies call 911 and/or get medical help right away. If you are a [facility] member and have medical needs after clinic hours you may [facility] [phone] or . Healthy Habits - Move! Aim [...] moderation - Choose healthy sources of fat: Lindsay, peanut or canola oils, 1/4 cup nuts [...] doctor/pharmacist if it is safe to take wdwx-blr-iokalxu drugs or herbs with your prescribed medicine. [...] further assistance after your discharge, please contact [phone] or visit [email or web address].[employer] can offer further [...] meal or a small snack Take an jvno-cwm-vuobnfj stool softener while taking narcotics (ex: Senna, [...] Follow-up appointment with Dr. Mae or physician programs assistant in 2 weeks. We hope you had a positive experience and that you can definitely recommend [facility] to your family and friends. AttachmentsThe following attachments cannot be sent through Care Everywhere. LUMBAR LAMINECTOMY FOR SPINAL STENOSIS: POST-OP (LATVIAN)documented in this encounter Medications at Time of [...] home health clinician.] fluticasone (AKA Place 1 [place] into 0 08/03/2013 FLONASE) 50 MCG/ACT both [...] Thomas PA-C - 10/30/2015 9:26 AM CDT [facility] Orth[facility] Spine Progress Note - Lumbar [...] Yost MD - 10/29/2015 9:33 AM CDT [facility] Interval History and Physical Note [...] surgery on 10/29/[address] Pierre at [facility]. Pertinent history: Has been having back pain. [...] prev. benign pros bx x 2 by [facility]. Last time 12/13. ??? Surgical procedure prev. [...] Cardiac risk factor assessment: heart disease history ([place], angina, CABG, coronary stent)? no History of [...] risk assessment Preoperative cardiac evaluation algorithm from [facility] Electronically Signed By: Ramses Cleary MD 10/19/2015, 1:02 PM CC: documented in this encounter Procedure Notes Douglas Mae MD - 10/29/2015 11:58 AM CDT [facility] Brief Orthopaedic Operative Note Surgery Date: [...] operative microscopy. ATTENDING SURGEON: Douglas Mae MD FIRER LOCOMOTIVE CRANE: Mahin Dimas PA-C. Please note this procedure technically required an programs assistant for the safety of the patient. [...] Dictated: 10/29/2015 14:56:53 Transcribed: 10/29/2015 15:34:54 Job: [id number] Doc: [id number] cc: documented in this encounter OR Notes H&P - Douglas Mae MD - 10/29/2015 9:50 AM CDT H&P reviewed. No new changes. documented in this encounter Plan of Treatment Scheduled Referrals Name Type Priority Associated Diagnoses Order S chedule Spine-Surgical Referral Routine ONCE for 1 Oc currences Consult-Adults starting 10/13 until 10/29/2015 Tvqlz-Fqbhhyiv-Bgiao Referral Routine Ordered : 10/30/2015 s documented [...] Douglas Mae MD LAB_1 Performing Organization Address City/[facility]/ZIP [facility] Phon e Number [address] [address] HEMATOCRIT, BLOOD (10/29/2015 3:32 PM CDT) athologist Signature HCT 44.1 41.0 - 53.0 [facility] Specimen Anatomical Collection Method Collection Time Receive d Time (Source) Location / / Volume Laterality 10/29/2015 3:32 PM 6 3:33 CDT PM CDT [facility] - 10/29/2015 3:46 PM CD T Performed at [facility], [address] [place], [place] [id number] Douglas Mae MD LAB_1 Performing Organization Address City/[facility]/ZIP [facility] Phon e Number [address] [address] HEMOGLOBIN, BLOOD (10/29/2015 3:32 PM CDT) athologist Signature Hemoglobin 14.7 13.5 - 17.5 [facility]dl [facility] Specimen Anatomical Collection Method Collection Time Receive d Time (Source) Location / / Volume Laterality 10/29/2015 3:32 PM 6 3:33 CDT PM CDT [facility] - 10/29/2015 3:46 PM CD T Performed at [facility], [address] [place] [address] Douglas Mae MD LAB_1 Performing Organization Address City/[facility]/ZIP Code Phon e Number [address] [address] XR C-ARM 1.5-2 HOURS (10/29/2015 12:19 PM [...] athologist Signature WBC 5.3 4.0 - 11.0 [facility] RBC 4.83 4.5 - 5.9 [facility] Hemoglobin 15.2 13.5 - 17.5 [facility] g/dl HOSPITAL HCT 46.0 41.0 - 53.0 [facility] MCV 95.2 80 - 100 fl [facility] MCH 31.5 26 - 34 pg [facility] MCHC 33.0 32 - 36 [facility] g/dl [facility] RDW 13.2 11.5 - 14.5 [facility] Platelets 160 150 - 450 [facility] MPV 9.7 6.5 - 11.0 [facility] Specimen Anatomical Collection Method Collection Time Receive d Time (Source) Location / / Volume Laterality 10/29/2015 9:09 AM 6 9:14 CDT AM CDT Narrative [facility] - 10/29/2015 9:18 AM CD T Performed at [facility], [address] [place] [address] Mahin Dimas PA-C LAB_1 Performing Organization Address City/State/ZIP Code Phon e Number [address] [address] documented in this encounter Visit Diagnoses Plan of Care - Arcelia Eilas RN - 10/30/2015 1:21 PM CDT [facility] Discharge Note - Nursing Admission Date/Time: 10/29/2015 8:13 AM Attending MD: [place] Mae MD Discharge Criteria:NONE Patient discharged: to Home. Discharge Date: 10/30/2015 Discharge Time: 1315 Patient accompanied by: spouse. Transported by: Wheelchair [...] Corral RN - 10/30/2015 6:57 AM CDT [facility] Plan of Care Note Assessment: Pain controlled with Oxycodone and Tylenol. HR regular, LSC, +BS, +BM, voiding well (self cath's). Ambulated akiak x2 with SBA Plan: Discharge to home today Plan of Care - Arabella Antunez RN - 10/29/2015 8:57 PM CDT [facility] Progress Note (Nursing) Assessment: Patient [...] Wooten RN - 10/29/2015 1:39 PM CDT [facility] Nursing Post-Op Note Admission Date/Time: 10/29/2015 [...] 8:55 AM CDT 2 Sprays spray 2 [place] 2 [place], Both Nostrils, BID, First dose on Thu10/30/15 [...] CDT 0.5 mg mg 0.5 mg, Intravenous, [id number], Pain, Starting on Thu10/29/15 at 1217, Until [...] (COMPLETED) 2230 (Given - Provider: Arabella ching, EULOGIO) 30 [...] Puff (CANCELED) 2020 (Given - Provider: Arabella Antunez, EULOGIO) 0858 (Giv en - Provider: Arcelia Elias RN) 2 Puff, Inhalation, BID, First dose on Thu10/29/15 at 2000, Until Discontinued bupivacaine 0.25% (PF) 0.25 % injection SOLN (COMPLETED) 1157 (Given - Provider: Keyana Torrez RN) INTRA-OP, 1 dose, Starting Thu10/29/15 at 0819, Until Discontinu ed ceFAZolin (aka ANCEF) 2 g in dextrose 100 ml IVPB (COMPLETED ) 1838 (Started - Provider: Arabella Antunez RN)190 (Infused - Provider: Arabella Antunez RN) 223 (Started - Provider: Eric Corral RN)025 (Infused - Provider: Eric Corral RN) 2 g, Intravenous, Q8H (NON-STND), 2 dose s, First dose on Thu10/29/15 at 1830, Last dose on Thu10/30/15 at 0230, Post-op ceFAZolin (aka ANCEF) 2 g (CANCELED) 102 5 (Started - Provider: Valerie Pinon APRN, AWNINGS MECHANIC) 2 g, Intravenous, ONCE (NON-SCHEDULED), Starting Thu10/29/15 at 0747, Until Discontinued, Pre-op dorzolamide (aka TRUSOPT) 2 % eye drops 1 Drop (CANCELED) 2020 (Given - Provider: Arabella Antunez RN) 0858 (Given - Provider: Arcelia Elias RN) 1 Drop, Both Eyes, BID, First dose on Thu10/29/15 at 2000, Until Discontinued fluticasone (aka FLONASE) 50 MCG/ACT nasal spray 2 [place] (CANCEL ED) 0855 (Given - Provider: Arcelia Elias RN) 2 [place], Both Nostrils, BID, First dose on Thu10/30/15 [...] Oral, BID, First dose on Thu10/29/15 at 1999, Until Di scontinued magnesium hydroxide (aka MILK OF MAGNESIA) oral liquid 10 mL (CA NCELED) 0858 (Given - Provider: Arcelia Elias RN) 10 mL, Oral, DAILY, First dose on Thu at 0800, Until Discontinued, Post-op omeprazole (aka PRILOSEC) delayed release capsule 20 mg (CAN CELED) 1647 (Given - Provider: Arabella Antunez RN) 20 mg, Oral, BID AC, First dose on Thu10/29/15 at 1630, Until Di scontinued pantoprazole (aka PROTONIX) tablet 40 mg (CANCELED) 06 (Given - Provider: Eric Corral RN) 40 mg, Oral, DAILY AT 0600, First dose o n Thu10/30/15 at 0600, Until Discontinued, Post-op sennosides-docusate sodium (aka SENNA-S, SENNA PLUS) 8.6-50 MG tablet 1 Tab (CANCELED) 0858 (Given - Provid er: Arcelia Elias RN) [...] Valerie Pinon APRN, CHINYERE)1218 (Infused - Provider: Valerie Pinon APRN, CHINYERE) 1,000 mL, at 25 mL/hr, Intravenous, CONT INUOUS, Starting Thu10/29/15 at 1030, Until Discontinued, Pre-op NaCl 0.45%-KCl 20 mEq/liter infusion 1,000 mL (CANCELED) 1357 (Started - Provider: Oliver Wooten, RN) 0922 (Stopped - Provider: Arcelia lara RN) 1,000 mL, at 50 mL/hr, Intravenous, CONT INUOUS, Starting 10/29/15 at 1345, Until Discontinued, Post-op PRN Medication Order 10/28/2015 10/29/2015 10/30/2015 acetaminophen (aka TYLENOL) tablet 650 mg (CANCELED) 1802 (Given - Provider: Arabella Antunez RN)2230 (Given - Provider: Arabella Antunez RN) 022 (Given - Provider: Eric Corral RN)0621 (Given [...] Provider: Eagle Luong RN) 0.5 mg, Intravenous, [id number], Starting Thu10/29/15 at 1217, Until Discontinued, Pain, PACU (only) oxyCODONE (aka ROXICODONE) tablet 5-10 mg (CANCELED) 1350 (Given - Provider: Oliver Wooten, EULOGIO)1802 (Given - Provider: Arabella Antunez RN)2230 (Given [...] Post-op documented in this encounter Care Teams Pan Washer Hand Relationship Specialty Start Date End Date Ramses Cleary MD PCP - General Family Practice 10/21/11 documented as of this encounter
--- OUTSIDE RECORDS SUMMARY | 2022-04-08 12:15 | XMS_ITS | Encounter Summary ---
:1935 Author Organization [employer] Address [address], [place] [address] Care Team Providers Name Role Phone No Primary/Referring, [place] Primary Care Provider Unavailable Encounter Details Date Type Department Care Team Description 03/25/2016 Correspondence [employer] [facility] Wandy Goff PA-C TRAVEL CLINIC PAYMENT Tropical Medicine [address] AGREEMENT WAIVER [address] [place] [phone] Social History Tobacco Use Types Packs/Day Years [...] on filedocumented in this encounter Care Teams Desk Attendant Relationship Specialty Start Date End Date No Primary/Referring, Phy PCP - General 12/11/21 documented as of this encounter
--- OUTSIDE RECORDS SUMMARY | 2022-04-08 12:15 | XMS_ITS | Encounter Summary ---
:1935 Author Organization [facility] Address [address], [place] [address] Care Team Providers Name Role Phone Morgan Bass DO Primary Care Provider [phone] Reason for Visit Reason Comments RESULTS, TEST Encounter Details Date Type Department Care Team Description 10/02/2016 [facility] Bass RES, TEST [facility] Pr anjelica Rose DO [address] [place] [address] [address] [phone] [place] [address] (Wo rk) Social History Tobacco [...] of this encounter Nursing Notes Vandana Ignacio, EULOGIO - 10/02/2016 12:55 PM CDT Informed pt, [...] on filedocumented in this encounter Care Teams Managed Services Sales Consultant Relationship Specialty Start Date End Date Morgan Bass, PCP - General Family Practice 10/02/16 10/25/17 [address] [place] [address] documented as of this encounter
--- OUTSIDE RECORDS SUMMARY | 2022-04-08 12:15 | XMS_ITS | Encounter Summary ---
:1935 [facility] Address [address] [place] [address] Care Team Providers Name Role Phone Morgan Bass DO Primary Care Provider Reason for Referral Procedure/Equipment (Routine) - Closed Specialty Diagnoses / Procedures Referred By Contact Refer red To Contact Diagnoses Vertigo Morgan Bass DO Procedures CT Head WO IV Cont [address] [place] [address] Referral ID Status Reason Start Date Expiration Date Visits Requ ested Visits Authorized [id number] Closed 10/02/2016 01/01/2018 1 1 Reason for Visit Reason Comments DIZZINESS visual changes Encounter Details Date Type Department Care Team Description 10/02/2016 [facility] Morgan Bass (Primary Dx) Beatriz Rose DO Practice [address] [place] [address] [place], [place] [phone] [address] Social History Tobacco Use Types Packs/Day Years [...] one-sided weakness and he also denies any furniture restorer strength discrepancy. Patient states that he has [...] MOUTH TWICE DAILY ONE HOUR BEFORE A [id number] Cap 0 No current facility-administered medications for [...] go ahead and send him over to [place] for an emergent CT without infusion. If [...] AM CDT Narrative 10/02/2016 1:05 PM CDT [facility] CT HEAD WO IV CONT 10/02/2016 [...] note might be different from the original. [facility] CT HEAD WO IV CONT 10/02/2016 [...] giddiness documented in this encounter Care Teams Schedule Manager Relationship Specialty Start Date End Date Morgan Bass DO PCP - General Family Practice 10/02/16 10/25/17 [address] [place] [place], [place] [address] documented as of this encounter
--- OUTSIDE RECORDS SUMMARY | 2022-04-08 12:15 | XMS_ITS | Encounter Summary ---
:1935 Author Organization [facility] Address [address], [place] [address] Care Team Providers Name Role Phone Ramses Cleary MD Primary Care Provider Unavailable Encounter Details Date Type Department Care Team Description 04/18/2016 Office Visit [facility] Yaa, Senso rineural hearing [facility] loss of both ears [facility] [address] (Primary Dx) [address] [place] [address] [phone] Social History Tobacco Use Types Packs/Day Years [...] Hearing aid check: Thank you for choosing [facility] for your Hearing Aid needs. Please see Hearing Aid record of sales documents provided to you at the time of your hearing aid purchase for serial number and warranty information. For questions regarding your visit or to schedule a return Audiology appointment, please call [phone]. If you require urgent after hours care, please call the Care Line at [phone]. Hearing Preservation: It is important to preserve your hearing. Personal headphone devices should be worn at levels not higher than 50% of the volume range. Hearing protection (ear plugs) should be worn wherever appropriate, including use of lawn mowers, snow blowers, chain saws, power tools, firearms, and while listening to live music. Hearing protection is available from all [facility] locations. Resources: Smoke and Carbon Monoxide detectors: Special smoke and carbon Monoxide alerting devices for individuals with hearing loss can be obtained from [employer]. or www.[employer] Telephone: Amplified and Caption(ing) telephone products may be available to you at no charge through the [place] Department [employer] Telephone Equipment Distribution program (SNAPP'). This is an income based program. The phone number is [phone] (voice) or 134-707-8644 (TTY). www.[employer].org. [facility] has printed AMISH program information available upon request. documented in this encounter Progress Notes Michaela Mon AU.D. - 04/18/2016 11:22 AM CDT SUBJECTIVE: Zaid Rutledge 81 y.o. came in today for a hearing aid check. Zaid Rutledge is leaving for a long trip to the [facility] for the month of May. His remote microphone, which is our [employer] model is broken. Hewould like this fixed [...] up next week for fitting. AuD. Rayna, [facility] Clinical Director Nicu documented in this encounter Plan of Treatment Not on filedocumented as of this encounter Visit Diagnoses Diagnosis Sensorineural hearing loss of both ears - Primary Sensorineural hearing loss, bilateral documented in this encounter Care Teams Housekeeping Department Worker Relationship Specialty Start Date End Date Ramses Cleary MD PCP - General Family Practice 10/21/11 documented as of this encounter
--- OUTSIDE RECORDS SUMMARY | 2022-04-08 12:15 | XMS_ITS | Encounter Summary ---
:1935 Author Organization [facility] Address [address] [address] Care Team Providers Name Role Phone Ramses Cleary MD Primary Care Provider Unavailable Reason for Visit Reason Comments DIZZINESS Encounter Details Date Type Department Care Team Description 01/16/2016 Nurse Triage [facility] Alexei Cleary MD DIZZINESS [facility] Pr actice [address] 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 His drove him home and he had [...] the patient's and the patient that RN (rewriter) finds symptoms concerning and requiring immediate evaluation, [...] on filedocumented in this encounter Care Teams Smelting Engineer Relationship Specialty Start Date End Date Ramses Cleary MD PCP - General Family Practice 10/21/11 documented as of this encounter
--- OUTSIDE RECORDS SUMMARY | 2022-04-08 12:15 | XMS_ITS | Encounter Summary ---
:1935 Author Organization [facility] Address [address], [place] [address] Care Team Providers Name Role Phone Ramses Cleary MD Primary Care Provider Unavailable Reason for Visit Reason Comments Refill omeprazole Encounter Details Date Type Department Care Team Description 08/05/2016 Refill [facility] Clinic Ramses Cleary, Refill (omeprazole) [facility] Pr anjelica MURRAY [address] [place] [address] [address] [phone] [place] [address] Social History Tobacco Use Types Packs/Day Years [...] documented as of this encounter Nursing Notes dAelaide Rehman RN - 08/05/2016 3:42 PM CST Ordered per Refill Standing Order/Protocol. Adelaide Rehman RN 08/05/2016, 3:42 PM S CONSULTANT RESIDENTIAL MANAGER Interface, Out OfficeDrop Query - 08/05/2016 9:57 AM CST omeprazole (PRILOSEC) 20 MG capsule [Pharmacy Med Name: OMEPRAZOLE 20MG CAPSULES] Protocol: Gastroenterology: Antiulcer - Proton Pump Inhibitors -> Refill x 3 months (until due for an office visit) Last qualifying visit: 10/19/2015 (in [employer] [facility] [employer]) Next scheduled visit: None Last ordered by RAMSES CLEARY: 08/13/2015 (358 days ago) QTY: 180, Refills: 3, Sig: take one capsule by mouth twice daily one hour before a meal (unchanged) Age: 81 Powered by [employer], Reference: [id number], 08/05/2016 9:57:08 AM SALES CONSULTANT RESIDENTIAL MANAGER, Pool: PETER JEFFERY RN ([id number]) S CONSULTANT RESIDENTIAL MANAGER documented in this encounter Plan of Treatment Not on filedocumented as of this encounter Visit Diagnoses Not on filedocumented in this encounter Care Teams Handstitching Machine Armhole Feller Relationship Specialty Start Date End Date Ramses Cleary MD PCP - [facility] 10/21/11 documented as of this encounter
--- OUTSIDE RECORDS SUMMARY | 2022-04-08 12:15 | XMS_ITS | Encounter Summary ---
:1935 Author Organization [facility] Address [address], [place] [address] Care Team Providers Name Role Phone Ramses Cleary MD Primary Care Provider Unavailable Reason for Visit Reason Comments Refill omeprazole Encounter Details Date Type Department Care Team Description 08/18/2016 Refill [facility] Ramses Cleary, Refill (omeprazole) [facility] Pr anjelica MURRAY [address] [place] [address] [address] [phone] [place] [address] Social History Tobacco Use Types Packs/Day Years [...] list. Shauna [place] RN 08/19/2016, 12:32 PM NER BOX Interface, [employer] Two B Prov Query - 08/18/2016 10:48 AM CST omeprazole (PRILOSEC) 20 MG capsule [Pharmacy Med Name: OMEPRAZOLE 20MG CAPSULES] Protocol: Gastroenterology: Antiulcer - Proton Pump Inhibitors -> Refill x 3 months (until due for an office visit) Last qualifying visit: 10/19/2015 (in [facility]) Next scheduled visit: None Last ordered by RAMSES CLEARY: 08/05/2016 (13 days ago) QTY: 180, Refills: 0, Sig: take one capsule by mouth twice daily one hour before a meal (unchanged) Age: 81 Powered by [employer], Reference: [id number], 08/18/2016 10:48:33 AM SPINNER BOX, Pool: PETER JEFFERY RN ([id number]) NER BOX documented in this encounter Plan of Treatment Not on filedocumented as of this encounter Visit Diagnoses Not on filedocumented in this encounter Care Teams School Occupational Therapist Relationship Specialty Start Date End Date Ramses Cleary MD PCP - [facility] 10/21/11 documented as of this encounter
--- OUTSIDE RECORDS SUMMARY | 2022-04-08 12:15 | XMS_ITS | Encounter Summary ---
:1935 Author Organization Formerly [facility] Address [address], [place] [address] Care Team Providers Name Role Phone Ramses Cleary MD Primary Care Provider Unavailable Reason for Visit Reason Comments Refill allopurinol Encounter Details Date Type Department Care Team Description 11/04/2015 [facility] Ramses Cleary, Refill ([facility]opurinol) [facility] [place] [address] [place] [address] [address] [phone] [place] [address] Social History Tobacco Use Types Packs/Day Years [...] Rehman RN 11/04/2015, 4:04 PM Interface, Out Madeline Prov Query - 11/04/2015 2:42 PM CDT allopurinol (AKA ZYLOPRIM) 100 MG tablet [Pharmacy Med Name: ALLOPURINOL 100MG TABLETS] - REFILL: 12 months - PROTOCOL: Endocrinology: Gout Agents - Allopurinol - RATIONALE: This refill should last until the patient is due for an office visit check, ALT check and Cr check. - LAST QUALIFYING VISIT IN [facility]: 10/19/2015 - NEXT SCHEDULED VISIT: [...] - WBC: 5.3k/cmm on 10/29/2015 Powered by White Source, Reference: [id number], 11/04/2015 2:42:45 PM CDT, Pool: PETER JEFFERY RN ([id number]) Interface, Out Sandag Prov Query - 11/04/2015 2:42 PM CDT The [...] filedocumented in this encounter Care Teams Auto Transport Driver Relationship Specialty Start Date End Date Ramses Cleary MD PCP - General Family Practice 10/21/11 documented as of this encounter
--- OUTSIDE RECORDS SUMMARY | 2022-04-08 12:15 | XMS_ITS | Encounter Summary ---
:1935 Author Organization [employer] Address [address], [place] [address] Care Team Providers Name Role Phone Ramses Cleary MD Primary Care Provider Unavailable Reason for Visit Auth/Cert Specialty Diagnoses / Procedures Referred By Contact Refer red To Contact Diagnoses lumbar spinal stenosis Procedures FORAMINOTOMY POSTERIOR APPROACH LUMBAR SPINE, Laterality: Left Referral ID Status Reason Start Date Expiration Date Visits Requ ested Visits Authorized [id number] 1 1 Encounter Details Date Type Department Care Team Description 10/29/2015 Anesthesia Event LV Operating Room Rita Yost MD [address] [place] [address] [place], [place] [address]Keshav Valerie Simpson, TALENT ENGINEER, MEAT SCRUBBER [address] [place] [address] [place] [address] Anesthesia Record Procedure Summary Procedure [...] ET T removed. Transferred with oxygen to [facility]. 1217 Nasal Canula/O2 Mask 1218 an stop data 1224 An Stop Care transferred . 1224 Care Handoff Note Airway patent . Vital signs stable. Condition unchanged. Repor t given according to policy and procedure. Elect ronically signed by Valerie Pinon APRN, CR NA 1423 AN Close Name Total fentaNYL injection (aka [...] Valerie Pinon APRN, Time: 1021; Placed By: MEAT SCRUBBER MEAT SCRUBBER MEAT SCRUBBER; Induction Type: Pre-O2, IV; Masking: Easy; ETT [...] Date: 10/29/15; Removal Time: 1217; Extubation By: MEAT SCRUBBER; Transferred with Oxygen: Yes Indwelling Urethral 10/29/15; [...] Yost MD - 10/29/2015 2:29 PM CDT [facility] Anesthesia Post-op Note Patient: Zaid Rutledge Post-Op [...] Yost MD - 10/29/2015 9:33 AM CDT [facility] Anesthesia Pre-op Evaluation Procedure: Procedure(s): L3-4, L4-5 LATERAL RECESS DECOMPRESSION HPI: 80 y.o. old male with Lumbar spinal stenosis NPO Status: Last Fluid Intake Time: 2199 Last Fluid Intake Date: 10/28/15 Last Food [...] Patient IV access Antibiotics per surgery Rita Sepulveda MD 10/29/2015 9:33 AM documented in this [...] 10:49 AM CDT 4 mg Starting on 5/16/16 at 1049, Until Thu10/29/15 at 1224 propofol (aka diPRIvan) injection Given 10/29/2015 10:19 AM CDT 150 mg Starting on Thu10/29/15 at 1019 succinylcholine (aka QUELICIN) injection Given 10/29/2015 10:19 AM CDT 100 mg Starting on Thu10/29/15 at 1019, Until Thu10/29/15 at 1224 documented in this encounter Care Teams Panel Maker Relationship Specialty Start Date End Date Ramses Cleary MD PCP - General Family Practice 10/21/11 documented as of this encounter
--- OUTSIDE RECORDS SUMMARY | 2022-04-08 12:15 | XMS_ITS | Encounter Summary ---
:1935 Author Organization [employer] Address [address] [place] [address] Care Team Providers Name Role Phone Ramses Cleary MD Primary Care Provider Unavailable Reason for Referral Consult/Transfer Care (Routine) - Closed Specialty Diagnoses / Procedures Referred By Contact Refer red To Contact Filemon Woods MD [address] [place] [address] Referral ID Status Reason Start Date Expiration Date Visits Requ ested Visits Authorized [id number] Closed 01/17/2016 02/17/2016 1 1 Scheduling Instructions Your provider has recommended an appoint ment in primary care at [facility]. A clinic scheduler will contact you to a ssist you in setting up this appointment, or you may call [phone] to schedule yo ur appointment. Procedure/Equipment (Routine) - Closed Specialty Diagnoses / Procedures Referred By Contact Refer red To Contact Cardiology Filemon Woods, Lv [address] TheoInvasive Non-Invasive [address] [place] [address] [place] [address] Referral ID Status Reason Start Date Expiration Date Visits Requ ested Visits Authorized [id number] Closed 01/17/2016 04/17/2017 1 1 Scheduling Instructions Your provider has recommended and appoin tment with the [facility]. You may call [phone] to schedule your appoi ntment. If you prefer, a clinic scheduler will contact you within the next 3 business d ays to assist you in setting up this appointment. We sugg est you call your health insurance company about your coverage and benefits for thi s appointment. Reason for Visit Reason Comments DIFFICULTY BREATHING--ED LIGHTHEADED--ED Encounter Details Date Type Department Care Team Description 01/16/2016 - Emergency LV [facility] Isidra Metcalf MD [address] [place] [address] Dizziness (Primary Dx); 01/17/2016 927 [facility] Filemon Woods MD [address] [place], [place] [id number] Abnormal urinalysis; Del Nicholson MD [address] [place] [address] Unspecified asthma(493.90) ([facility]); [place], [place] Other glaucom a of both eyes; [address] Primary prostate adenocarcin amina ([facility]); [phone] Dehydration; Syncope, unspec ified syncope type; Urinary [...] Woods MD - 01/17/2016 4:57 PM CDT [facility] Discharge Summary Name: Zaid Rutledge : 1935 [...] questions. Fidencio Woods MD 01/17/2016 4:57 PM [facility] Medicine [phone] (pager) CC: Ramses Cleary MD documented in this encounter Discharge Instructions Discharge InstructionsYesenia Curran RN - 01/17/2016 4:49 PM CDT Contact Information [address] [address] Main or [phone] Same Day Surgery, M-F 7am to 5pm: [phone] Clinic Phone Numbers [facility] [phone] [facility] [phone] [facility] [phone] [facility] [phone] [facility] [phone] Emergency & Urgently Needed Care: For emergencies call 911 and/or get medical help right away. If you are a [facility] member and have medical needs after clinic hours you may call the CareLineat [phone] or . Healthy Habits - Move! Aim [...] moderation - Choose healthy sources of fat: [place], peanut or canola oils, 1/4 cup nuts [...] doctor/pharmacist if it is safe to take icxc-mut-xgbbwdj drugs or herbs with your prescribed medicine. [...] further assistance after your discharge, please contact [phone] or visit [email or web address].[email or web address] can offer further [...] weight will also be followed by the [facility] [employer] [facility] [facility] when you go in for your treatment. We hope you had a positive experience and that you can definitely recommend [facility] to your family and friends. AttachmentsThe following attachments cannot be sent through Care Everywhere. DEHYDRATION (CAMEROONIAN)DIZZINESS (CAMEROONIAN)ASTHMA: ADULT (CAMEROONIAN)documented in this encounter Medications at Time of [...] home health clinician.] fluticasone (AKA Place [address] [place] into 0 08/03/2013 FLONASE) 50 MCG/ACT both [...] PM CDTAssociated Order(s): POC US EXPANDED IVC [facility] Point of Care Ultrasound Interpretation POC US EXPANDED IVC Date/Time: 01/16/2016 7:24 PM Performed by: ISIDRA METCALF Authorized by: ISIDRA METCALF Point of Care Ultrasound: Expanded IVC Indication: Syncope Window: Very challenging windows, Parasternal Long Wallace, Apical 4-Chamber, IVC longitudinal inspiration and IVC longitudinal expiration Findings: Grossly Normal Exam, Good Global Function and No Pericardial Effusion Impression: Grossly Normal Also, no obvious AAA. Isidra Metcalf MD documented in this encounter OR Notes H&P - Del Langston MD - 01/16/2016 7:48 PM CDT [facility] Medicine History and Physical Assessment and [...] this visit by admitting provider: Lives in [facility] with his . 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 Social History Social History ??? Marital [...] % Social History Narrative Merged History Encounter Affiliate Marketing Manager. Affiliate Marketing Manager. Moving to [place] in . Affiliate Marketing Manager. Moving to [place] in . Current outpatient medications Current Outpatient [...] pertaining to hospitalization reviewed. Component Latest Ref Rng 01/16/2016 WBC 4.0 - 11.0 k/ul 7.6 [...] 11.0 fl 10.3 PMN/Band 56 Lymph 29 Kings 9 EOS 5 Baso 1 PMN Absolute 1.8 - 7.7 k/ul 4.3 Lymph Absolute 1.0 - 4.8 k/ul 2.2 Kings Absolute 0.1 - 0.7 k/ul 0.7 Eos Absolute 0.0 - 0.5 k/ul 0.4 Baso Absolute 0.0 - 0.2 k/ul 0.1 Immature Gran 0 Imm Gran Absolute 0 k/ul 0.0 Component Latest Ref Rng 01/16/2016 Sodium 135 - 145 mmol/L 142 [...] Metcalf MD - 01/16/2016 5:42 PM CDT [facility] Emergency Department Visit Note Chief Complaint: Chief [...] and spinning. 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 History was obtained from [...] behalf by Argelia Castillo, a trained medical sociologist. The creation of this record is based on the scribe's personal observations and the provider's statements to him. The document has been checked and approved by the attending provider. 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 Tonight while reading he [...] Name Type Priority Associated Diagnoses Order S [facility] Event Monitor Referral Referral Routine Order ed: [...] this procedure are in the results section. [facility] 01/16/2016 12:00 Results for AM CDT this [...] on pre-contrast images, ? therefore Optison (LOT #[id number]) was used ? on this s tudy. [...] on pre-contrast image s, therefore Optison (LOT #[id number]) was u sed on this study. Danny Riojas MD (Electronically Signed) Final Date:17 January 2016 13:53 Del Langston MD [facility] ECHO/RH Performing Organization Address City/[facility]/ZIP Code Phon e Number [employer] [address] [place] [address] Gold Hold Tube (Or Red/Silverman) (01/16/2016 9:07 PM CDT) [facility] Method Time Signature Gold Hold Held in [facility] Tube Chemistry HOSPITAL sample rack for 7 days Specimen Anatomical Collection Method Collection Time Receive d Time (Source) Location / / Volume Laterality 01/16/2016 9:07 PM 6 9:08 CDT PM CDT [facility] - 01/16/2016 9:08 PM CD T Performed at [facility], [address] [place] [address] Del Langston MD LAB_1 Performing Organization Address [facility] Phon e Number [address] [address] PURPLE HOLD TUBE (01/16/2016 9:07 PM CDT) [employer] Method Time Signature Purple Hold Held in Heme rack for 3 days . A1C test can be added on up to 3 days. [facility] Stability varies for Heme tests, consult Heme Techs befor e adding on HOSPITAL heme orders. Specimen Anatomical Collection Method Collection Time Receive d Time (Source) Location / / Volume Laterality 01/16/2016 9:07 PM 6 9:08 CDT PM CDT [facility] - 01/16/2016 9:08 PM CD T Performed at [facility], [address] [place] [address] Del Langston MD LAB_1 Performing Organization Address [facility]/ZIP [facility] Phon e Number [address] [address] Troponin I (01/16/2016 9:07 PM CDT) P athologist Signature Troponin I <0.02 0.00 - 0.06 [facility] ng/ml HOSPITAL Specimen Anatomical Collection Method Collection Time Receive d Time (Source) Location / / Volume Laterality 01/16/2016 9:07 PM 6 9:08 CDT PM CDT [facility] - 01/16/2016 9:45 PM CD T Performed at [facility], [address] [place] [address] Del Langston MD LAB_1 Performing Organization Address City/State/ZIP Code Phon e Number [address] [address] URINE CULTURE (01/16/2016 6:55 PM CDT) [facility] Method Time Signature Specimen Urine Clean [facility] Description Catch HOSPITAL Special Unspecified [facility] Requests HOSPITAL Culture > 100,000 [facility] col/ml HOSPITAL Escherichia coli Report Status Final [facility] 01/18/2016 HOSPITAL Organism > 100,000 [facility] col/ml [facility]OSPITAL Escherichia coli Specimen Anatomical Collection Method Collection Time Receive d Time (Source) Location / / Volume Laterality Urine specimen 01/16/2016 6:55 PM 016 8:26 (specimen) CDT PM CDT [facility] - 01/18/2016 9:16 AM CD T Performed at [facility], [address] [place] [address] Organism Antibiotic Method Susceptibility > 100,000 col/ml [...] Isidra Metcalf MD LAB_1 Performing Organization Address [facility] Phon e Number [address] [address] TSH, SENSITIVE with FT4, FT3 (if needed) (01/16/2016 6:28 PM CDT) P athologist Signature TSH, with 1.31 0.36 - [facility] Reflex 3.74 HOSPITAL uIU/ml Specimen Anatomical Collection Method Collection Time Receive d Time (Source) Location / / Volume Laterality 01/16/2016 6:28 PM 6 8:24 CDT PM CDT [facility] - 01/16/2016 8:57 PM CD T Performed at [facility], [address] [place] [address] Del Langston MD LAB_1 Performing Organization Address City/[facility] Phon e Number [address] [address] POC US EXPANDED IVC (01/16/2016 6:10 PM CDT) Anatomical Region Laterality Modality Ultrasound Specimen (Source) Anatomical Location Collection Method / Collectio n Time Received Time / Laterality Volume Narrative 01/16/2016 7:25 PM CDT Isidra Metcalf MD ? 01/16/2016 ??7:25 PM [facility] Point of Care Ultrasound Interpretation POC US EXPANDED IVC Date/Time: 01/16/2016 7:24 PM Performed by: ISIDRA METCALF Authorized by: ISIDRA METCALF Point of Care Ultrasound: Expanded IVC Indication: ??Syncope Window: ??Very challenging windows, Para sternal Long Wallace, Apical 4-Chamber, IVC longitudinal inspiration and IVC longitudinal expiration Findings: Grossly Normal Exam, Good Glob al Function and No Pericardial Effusion Impression: ??Grossly Normal Also, no obvious AAA. Isidra Metcalf MD Isidra Metcalf MD RAD POC US Troponin I (01/16/2016 5:45 PM CDT) athologist Signature Troponin I <0.02 0.00 - 0.06 [facility] ng/ml [facility]OSPITAL Specimen Anatomical Collection Method Collection Time Receive d Time (Source) Location / / Volume Laterality 01/16/2016 5:45 PM 6 6:28 CDT PM CDT [facility] - 01/16/2016 6:44 PM CD T Performed at [facility], [address] [place] [address] Isidra Metcalf MD LAB_1 Performing Organization Address City/State/ZIP Code Phon e Number [address] [id number] [address] [phone] (ABNORMAL) BASIC METABOLIC PANEL (01/16/2016 5:45 PM [...] mg/dl HOSPITAL Creatinine 1.38 (H) 0.66 - [facility] 1.25 mg/dl HOSPITAL GFR, Estimated 48 (L) [...] Est., If Black 56 (L) >60 ml/min/1.73m2 [facility] Comment: The National Kidney Disease Education Pr [...] PM 6 6:[address] [facility] - 01/16/2016 6:44 PM CD T Performed at [facility], [address] [place] [address] Isidra Metcalf MD LAB_1 Performing Organization Address City/State/ZIP Code Phon e Number [address] [address] CBC AND DIFFERENTIAL (01/16/2016 5:45 PM CDT) athologist Signature WBC 7.6 4.0 - 11.0 [facility] RBC 4.96 4.5 - 5.9 [facility] Hemoglobin 15.7 13.5 - [facility] 17.5 g/dl HOSPITAL HCT 46.0 41.0 - [facility] 53.0 % HOSPITAL MCV 92.7 80 - 100 [facility] MCH 31.7 26 - [address] [facility] MCHC 34.1 32 - 36 [facility] HOSPITAL RDW 13.2 11.5 - [facility] 14.5 % HOSPITAL Platelets 202 150 - 450 [facility] MPV 10.3 6.5 - [address] [facility] PMN/Band 56 % [facility] Lymph 29 % [facility] Kings 9 % [facility] Eos 5 % [facility] Baso 1 % [facility] Neutrophil 4.3 1.8 - 7.7 [facility] Absolute [facility] Lymph Absolute 2.2 1.0 - 4.8 [facility] k/ul HOSPITAL Kings Absolute 0.7 0.1 - 0.7 [facility] k/ HOSPITAL Eos Absolute 0.4 0.0 - 0.5 [facility] / HOSPITAL Baso Absolute 0.1 0.0 - 0.2 [facility]/ HOSPITAL Immature Gran 0 % [facility] Imm Gran 0.0 0 / [facility] Absolute [facility]OSPITAL Specimen Anatomical Collection Method Collection Time Receive d Time (Source) Location / / Volume Laterality 01/16/2016 5:45 PM 6 6:28 CDT PM CDT [facility] - 01/16/2016 6:33 PM CD T Performed at [facility], [address] [place] [address] Isidra Metcalf MD LAB_1 Performing Organization Address City/[facility] Phon e Number [address] [address] (ABNORMAL) UA with Micro (01/16/2016 5:44 PM CDT) [facility] Method Time Signature Urine Color Yellow [facility] Urine Clarity Clear [facility] Sp Gr 1.025 1.005 - [facility] 1.030 [facility]OSPITAL Leuk Sml (A) NEG [facility] Nitr Positive (A) NEG [facility] pH 5.5 4.5 - 8.0 [facility] Prot Negative NEG mg/dl [facility] Gluc Negative NEG [facility] Ket Negative NEG [facility] Urob 0.2 0.2 - 1.0 [facility] EU/dl [facility]OSPITAL Bili Negative NEG [facility] Blood Neg/Tr NEGTR [facility] RBC'S 0-3 0 - 3 [facility] /hpf [facility]OSPITAL WBC'S 10-20 0 - 5 [facility] /hpf [facility]OSPITAL Epith, Few /hpf [facility] Squamous [facility]OS[facility] Bact Many [facility] Casts 1-2 Hyaline /lpf [facility] Other Mod Mucous [facility] Specimen Anatomical Collection Method Collection Time Receive d Time (Source) Location / / Volume Laterality 01/16/2016 5:44 PM 6 6:55 CDT PM CDT [facility] - 01/16/2016 7:01 PM CD T Performed at [facility], [address] [place] [address] Isidra Metcalf MD LAB_1 Performing Organization Address City/[facility]/ZIP Code Phon e Number [address] [address] ECG 12-Lead Routine (01/16/2016 5:28 PM CDT) P athologist Signature Ventricular Rate 73 BPM [facility] Atrial Rate 73 BPM [facility] P-R Interval 154 ms [facility] QRS Duration 90 ms [facility] QT 408 ms [facility] QTc 449 ms [facility] P Wallace 23 degrees [facility] R Wallace -5 degrees [facility] T Wallace 13 degrees [facility] Specimen (Source) Anatomical Collection Method Collection Time Re ceived Time Location / / Volume Laterality 01/16/2016 5:28 PM CDT Narrative [facility] - 01/26/2016 7:49 AM CDT Sinus rhythm Normal ECG When compared with ECG of 19-OCT-2015 11 :19, No significant change was found Confirmed by MD SMITH JOSEPH A ([id number]), SILVIO Bundy ([id number]) on 01/26/2016 7:49:45 AM Procedure Note Mark Smith MD - 01/26/2016Forma tting of this note might be different from the original. Sinus rhythm Normal ECG When compared with ECG of 19-OCT-2015 11 :19, No significant change was found Confirmed by MD SMITH JOSEPH A ([id number]), SILVIO Bundy ([id number]) on 01/26/2016 7:49:45 AM Isidra Metcalf MD EKG Performing Organization Address City/State/ZIP Code Phon e Number [facility] [employer] [facility] (01/16/2016 12:00 AM CDT) Specimen (Source) Anatomical Location Collection Method / Collectio n Time Received Time / Laterality Volume 01/16/2016 Narrative This result has an attachment that is no t available. Provider [facility] DUMMY/OTHER/AR documented in this encounter Visit Diagnoses Diagnosis Dizziness - Primary Dizziness and giddiness Dizziness Dizziness and giddiness Abnormal urinalysis Other nonspecific finding on examination of urine Unspecified asthma(493.90) ([facility]) Unspecified asthma Other glaucoma of both eyes Primary prostate adenocarcinoma ([facility]) Malignant neoplasm of prostate Dehydration Syncope, unspecified syncope type Urinary tract infection, site not specif ied Renal insufficiency Unspecified disorder of kidney and urete r Gout, unspecified cause, unspecified chr onicity, unspecified site Glaucoma, unspecified glaucoma??, unspec ified laterality Gastroesophageal reflux disease, esophag itis presence not specified Personal history of nicotine dependence Personal history of tobacco use, present ing hazards to health Personal history of malignant neoplasm o f prostate GERD (gastroesophageal reflux disease) Esophageal reflux Glaucoma Unspecified glaucoma Primary prostate adenocarcinoma ([facility]) Malignant neoplasm of prostate Unspecified asthma(493.90) ([facility]) Unspecified asthma Abnormal urinalysis Other nonspecific finding on examination of urine Plan of Care - Yesenia Curran RN - 01/17/2016 5:33 PM CDT [facility] Discharge Note - Nursing Admission Date/Time: 01/16/2016 [...] needs. Patient is waiting to see the DrKeshav and to get the results of his [...] (COMPLETED) 1927 (Sta rted - Provider: Grace Logan, EULOGIO) 1,000 mL, Intravenous, at 150 mL/hr, ONC E, On Thu01/16/16 at 1945, For 1 dose, Bolus Continuous Medication Order 01/15/2016 01/16/2016 01/17/2016 NaCl 0.9% infusion 2111 (Started - Prov ider: Jackie Carey, EULOGIO)2357 (Started - Provider: Lara Brown RN) Intravenous, [...] 2156 documented in this encounter Care Teams Medical Surgery Nurse Relationship Specialty Start Date End Date Ramses Cleary MD PCP - General Family Practice 10/21/11 documented as of this encounter
--- OUTSIDE RECORDS SUMMARY | 2022-04-08 12:16 | XMS_ITS | Encounter Summary ---
:1935 Author Organization [facility] Address [address], [place] [address] Care Team Providers Name Role Phone Ramses Cleary MD Primary Care Provider Unavailable Reason for Visit Reason Comments PRE-OP EXAM back surgery Encounter Details Date Type Department Care Team Description 10/19/2015 Office Visit [facility] Ramses Cleary Pre op examination (Primary Dx); Beatriz Shipman MD Low back pain (HRC); Practice [address] Encounter for long-term curr ent use of medication; [address] [place] [address] [place], [place] [phone] Social History Tobacco Use Types Packs/Day Years [...] surgery on 10/29/[address] Pierre at [place]. Pertinent history: Has been having back pain. [...] Cardiac risk factor assessment: heart disease history ([place], angina, CABG, coronary stent)? no History of [...] risk assessment Preoperative cardiac evaluation algorithm from [facility] Electronically Signed By: Ramses Cleary MD [...] [facility] [place] Atrial Rate 64 BPM [facility] [place] P-R Interval 144 ms [facility] [place] QRS Duration 90 ms [facility] [place] QT 418 ms [facility] [place] QTc 431 ms [facility] [place] P [place] -7 degrees [facility] [place] R [place] -10 degrees [facility] [place] T [place] -3 degrees [facility] [place] Specimen (Source) Anatomical Collection Method Collection Time Re ceived Time Location / / Volume Laterality 10/19/2015 11:19 AM CDT Narrative [facility] - 10/19/2015 12:53 PM CDT Sinus rhythm Minimal voltage criteria for LVH, may be normal variant Borderline ECG When compared with ECG of 28-JUL-2014 17 :15, No significant change was found Confirmed by MD CLEARY CHARLES ([id number]) on 10/19/2015 12:53:40 PM Procedure Note Ramses Cleary MD - 10/19/2015Format ting of this note might be different from the original. Sinus rhythm Minimal voltage criteria for LVH, may be normal variant Borderline ECG When compared with ECG of 28-JUL-2014 17 :15, No significant change was found Confirmed by MD CLEARY CHARLES ([id number]) on 10/19/2015 12:53:40 PM Ramses Cleary MD EKG Performing Organization Address City/State/ZIP Code Phon e Number [facility] GOLD HOLD TUBE (OR RED/BASS) (10/19/2015 11:12 AM CDT) [facility] gist Method Time Signature Gold Hold Held in [facility] sample rack for 7 days Specimen Anatomical Collection Method Collection Time Receive d Time (Source) Location / / Volume Laterality 10/19/2015 11:12 10/19/2015 AM CDT 11:24 AM CDT Narrative [facility] - 10/19/2015 11:26 AM CDT Performed at [facility] [address], [address] [place] [address] Ramses Cleary MD LAB_1 Performing Organization Address City/State/ZIP Code Phon e Number [facility] [phone] (ABNORMAL) LIVER PANEL(HEPATIC FUNCTION PANEL) (10/19/2015 11:12 AM CDT) [facility] Method Time Signature Alkaline 63 38 [...] 10/19/2015 AM CDT 11:24 AM CDT Narrative [facility] - 10/19/2015 1:00 PM C DT Performed at [facility] [address], [address] [place] [address] Ramses Cleary MD LAB_1 Performing Organization Address City/State/ZIP Code Phon e Number [facility] [phone] (ABNORMAL) BASIC METABOLIC PANEL (10/19/2015 11:12 AM CDT) [facility] Method Time Signature Sodium 143 135 [...] 10/19/2015 AM CDT 11:24 AM CDT Narrative [facility] - 10/19/2015 1:00 PM C DT Performed at [facility] [address], [address] [place] [id number] Ramses Cleary MD LAB_1 Performing Organization Address City/State/ZIP Code Phon e Number [facility] [phone] documented in this encounter Visit Diagnoses Diagnosis Preop examination - Primary Preoperative examination, unspecified Low back pain (HRC) Lumbago Encounter for long-term current use of m edication Chest wall pain Painful respiration documented in this encounter Care Teams Construction Management Assistant Relationship Specialty Start Date End Date Ramses Cleary MD PCP - General Family Practice 10/21/11 documented as of this encounter
--- OUTSIDE RECORDS SUMMARY | 2022-04-08 12:16 | XMS_ITS | Encounter Summary ---
:1935 Author Organization [facility] Address [address], [place] [address] Care Team Providers Name Role Phone Ramses Cleary MD Primary Care Provider Unavailable Encounter Details Date Type Department Care Team Description 09/20/2014 Orders Only [facility] [address] [place] [address] Social History Tobacco Use Types Packs/Day [...] encounter Progress Notes Deepika Arellano RN - 09/20/2014 1:52 PM CDT Quick [...] Signature Prostatic Spec 5.07 (H) 0.00 - [facility] Ag 4.00 ng/ml HOSPITAL Specimen Anatomical Collection Method Collection Time Receive d Time (Source) Location / / Volume Laterality 09/20/2014 11:35 09/20/2014 AM CDT 11:40 AM CDT Narrative [facility] - 09/20/2014 1:29 PM CD T Performed at [facility], [address] [place] [address] Waqas Rodney MD LAB_1 Performing Organization Address City/State/ZIP Code Phon e Number [address] [address] documented in this encounter Visit Diagnoses Diagnosis Prostate cancer (HRC) Malignant neoplasm of prostate documented in this encounter Care Teams Physicist Light And Optics Relationship Specialty Start Date End Date Ramses Cleary MD PCP - General Family Practice 10/21/11 documented as of this encounter
--- OUTSIDE RECORDS SUMMARY | 2022-04-08 12:16 | XMS_ITS | Encounter Summary ---
:1935 Author Organization [facility] Address [address] [address] Care Team Providers Name Role Phone Ramses Cleary MD Primary Care Provider Unavailable Encounter Details Date Type Department Care Team Description 08/01/2015 Notes/Orders [facility] Ramses Cleary for Beatriz Shipman MD long-term (current) Practice [address] use of medications [address] (Primary Dx) [place] [address] [place], [place] [phone] Social History Tobacco Use Types Packs/Day Years [...] lab sent. Alan Evans 08/05/2015, 8:30 AM T WORKER Interface, Out Multicast Media Prov Query - 08/01/2015 12:56 PM CST ORDER THE FOLLOWING: - ALANINE AMINOTRANSFERASE (ALT): Pended to encounter. SCHEDULE THE FOLLOWING: - ALANINE AMINOTRANSFERASE (ALT) BY: 09/15/2015 (Coming due as of 09/15/2015 for allopurinol (AKA ZYLOPRIM) 100 MG tablet) - LAST QUALIFYING VISIT IN [facility]: 06/04/2015 - NEXT SCHEDULED VISIT: None - NEXT LAB VISIT,APPOINTMENT: 10/19/2015 Powered by WiWide, Reference: [id number], 08/01/2015 12:56:[address], Pool: PETER JEFFERY RN ([id number]) T WORKER documented in this encounter Plan of Treatment Not on filedocumented as of this encounter Visit Diagnoses Diagnosis Encounter for long-term (current) use of medications - Primary Encounter for long-term (current) use of other medications documented in this encounter Care Teams Plate Gauger Relationship Specialty Start Date End Date Ramses Cleary MD PCP - [facility] 10/21/11 documented as of this encounter
--- OUTSIDE RECORDS SUMMARY | 2022-04-08 12:16 | XMS_ITS | Encounter Summary ---
:1935 Author Organization [facility] Address [address] [place] [address] Care Team Providers Name Role Phone Ramses Cleary MD Primary Care Provider Unavailable Reason for Visit Reason Comments CHEST CONGESTION--ED sob, , hard to sleep, hx ast hma-using inhaler, mucinex,productive cough-whi te to yellow ,thick phlem,started about 2 weeks ago Encounter Details Date Type Department Care Team Description 11/16/2014 Office Visit [facility] Denise Dominguez (Primary Dx); Beatriz Barth MD Bronchospa Practice [address] [place] [address] Social History Tobacco Use Types Packs/Day Years [...] Body Mass Index 35.21 07/31/2014 3:44 PM SPEECH THERAPY ASSISTANT documented in this encounter Progress Notes Denise [...] Dictated: 11/16/2014 14:36:00 Transcribed: 11/20/2014 09:17:18 Job: [id number] Doc: [id number] cc: documented in this encounter Plan of Treatment Not on filedocumented as of this encounter Visit Diagnoses Diagnosis Bronchitis - Primary Bronchitis, not specified as acute or ch ronic Bronchospasm Acute bronchospasm documented in this encounter Care Teams Safety And Health Manager Relationship Specialty Start Date End Date Ramses Cleary MD PCP - General Family Practice 10/21/11 documented as of this encounter
--- OUTSIDE RECORDS SUMMARY | 2022-04-08 12:16 | XMS_ITS | Encounter Summary ---
:1935 Author Organization [facility] Address [address] [address] Care Team Providers Name Role Phone Ramses Cleary MD Primary Care Provider Unavailable Reason for Visit Reason Comments Hearing Aid HACK/ComPilot Encounter Details Date Type Department Care Team Description 04/05/2015 Office Visit [facility] Neural hearing loss, [place] [facility] (Primary Dx) [facility] [address] [address] Social History Tobacco Use Types Packs/Day [...] [employer] & Mike for trip with . [id number] PLAN: Follow up after trip to purchase or return [employer] Mike . Follow up as needed for ANN's. Pippa Mims 04/05/2015 documented in this encounter Plan of Treatment Not on filedocumented as of this encounter Visit Diagnoses Diagnosis Neural hearing loss, bilateral - Primary documented in this encounter Care Teams Survey Interviewer Relationship Specialty Start Date End Date Ramses Cleary MD PCP - General Family Practice 10/21/11 documented as of this encounter
--- OUTSIDE RECORDS SUMMARY | 2022-04-08 12:16 | XMS_ITS | Encounter Summary ---
:1935 Author Organization [facility] [employer] Address [address] [address] Care Team Providers Name Role Phone Ramses Cleary MD Primary Care Provider Unavailable Reason for Visit Procedure/Equipment (Routine) - Closed Specialty Diagnoses / Procedures Referred By Contact Refer red To Contact Radiology [place] Procedures Lida Dinero, Lv Radiology CT ANGIOGRAPHY PULMONARY MD [address] [place] [address] EMBOLISM STUDY [address] [place] [address] [place] [address] Referral ID Status Reason Start Date Expiration Date Visits Requ ested Visits Authorized [id number] Closed 07/17/2015 1 1 Encounter Details Date Type Department Care Team Description 07/17/2015 Imaging [facility] Ra diology CT [address] [place] [address] Social History Tobacco Use Types Packs/Day Years [...] Re sults for this CONT PE STUDY SOLID WASTE LANDFILL TECHNICIAN procedure are in the results section. documented in this encounter Visit Diagnoses Not on filedocumented in this encounter Administered Medications Inactive Administered Medications - up to 3 most recent administrations Medication Order MAR Action Action Date Dose Rate Site iohexol (aka OMNIPAQUE) 350 MG/ML Given 07/17/2015 1:37 PM SOLID WASTE LANDFILL TECHNICIAN 9 9 mL injection 100 mL 100 mL, Intravenous, ONCE (NON-SCHEDULED), Starting on Thu07/17/15 at 1336, Until 07/17/15 at 1337, For 1 dose documented in this encounter Care Teams Outside B2B Sales Relationship Specialty Start Date End Date Ramses Cleary MD PCP - General Family Practice 10/21/11 documented as of this encounter
--- OUTSIDE RECORDS SUMMARY | 2022-04-08 12:16 | XMS_ITS | Encounter Summary ---
:1935 Author Organization [facility] Address [address], [place] [address] Care Team Providers Name Role Phone Ramses Cleary MD Primary Care Provider Unavailable Reason for Visit Reason Comments COUGH, COUGHING UP, BLOOD Coughing up large amount of blood. Recent air travel. Encounter Details Date Type Department Care Team Description 07/17/2015 Nurse Triage [facility] Ramses Cleary GH, COUGHING UP, Beatriz Shipman MD BLOOD (Coughing up Practice [address] large amount of [address] [place] [address] [place], [place] travel. ) [phone] Social History Tobacco Use Types Packs/Day Years [...] as of this encounter Nursing Notes Tawanna Brady, RN - 07/17/2015 9:56 AM CST Verified and full name. Yes Situation/Symptom: Coughing up blood Background related to current situation/symptom: Flew back from [facility] last night Pertinent Medical history: Esophageal reflux and Asthma Medications: Reviewed Pertinent medications with the patient/caller Yes Protocol: COUGHING UP [id number] Negative: Severe difficulty breathing (e.g., struggling for [...] B: Patient had long air flight from [facility] back to [place] yesterday. A: No previous upper respiratory congestion [...] Tawanna Brady RN (Amelia) 07/17/2015 10:13 AM ERNMAKER METAL BENCH documented in this encounter Plan of Treatment Not on filedocumented as of this encounter Visit Diagnoses Not on filedocumented in this encounter Care Teams Training And Development Director Relationship Specialty Start Date End Date Ramses Cleary MD PCP - General Family Practice 10/21/11 documented as of this encounter
--- OUTSIDE RECORDS SUMMARY | 2022-04-08 12:16 | XMS_ITS | Encounter Summary ---
:1935 Author Organization [facility] Address [address], [place] [address] Care Team Providers Name Role Phone Ramses Cleary MD Primary Care Provider Unavailable Reason for Visit Reason Comments Hearing Aid Encounter Details Date Type Department Care Team Description 11/14/2014 Office Visit [facility] Delvis Chaudhry hearing loss, [facility] MICHAEL Roach bilateral ([facility] Dx) [address] [place] [address] Social History Tobacco Use Types Packs/Day Years [...] was changed to right and left Com Legal Executive was paired to his new cell phone [...] Primary documented in this encounter Care Teams Agent Ticketing Gate Relationship Specialty Start Date End Date Ramses Cleary MD PCP - General Family Practice 10/21/11 documented as of this encounter
--- OUTSIDE RECORDS SUMMARY | 2022-04-08 12:16 | XMS_ITS | Encounter Summary ---
:1935 Author Organization [facility] Address [address], [place] [address] Care Team Providers Name Role Phone Ramses Cleary MD Primary Care Provider Unavailable Encounter Details Date Type Department Care Team Description 10/19/2015 Lab Visit [facility] Elevat ed prostate [place] [facility] specific antigen (PSA) [address] [place] [address] Social History Tobacco Use Types Packs/Day [...] SPECIFIC ANTIGEN (F/U) (10/19/2015 11:12 AM CDT) [facility] gist Method Time Signature Prostatic Spec 5.7 (H) 0.00 - [facility] Ag 4.00 ng/ml LABORATORIES Specimen Anatomical Collection Method Collection Time Receive d Time (Source) Location / / Volume Laterality 10/19/2015 11:12 10/19/2015 AM CDT 11:25 AM CDT Narrative [facility] - 10/19/2015 2:36 PM C DT Performed at [facility], [address] [place] [address] Waqas Rondey MD LAB_1 Performing Organization Address City/State/ZIP Code Phon e Number [facility] [phone] documented in this encounter Visit Diagnoses Diagnosis Elevated prostate specific antigen (PSA) documented in this encounter Care Teams Proof Technician Relationship Specialty Start Date End Date Ramses Cleary MD PCP - General Family Practice 10/21/11 documented as of this encounter
--- OUTSIDE RECORDS SUMMARY | 2022-04-08 12:16 | XMS_ITS | Encounter Summary ---
:1935 Author Organization [facility] Address [address] [place] [address] Care Team Providers Name Role Phone Ramses Cleary MD Primary Care Provider Unavailable Encounter Details Date Type Department Care Team Description 08/14/2014 Notes/Orders [facility] Ramses Cleary for Beatriz Shipman MD long-term (current) Practice [address] use of other [address] medications ([place] [address] [place], [place] Dx) [phone] Social History Tobacco Use Types Packs/Day Years [...] scheduling needs. Shruthi Alcantar 08/16/2014, 10:46 AM STRIPPER Interface, Out WikiWand Query - 08/14/2014 9:10 AM CST - [...] MGtablet) - LAST QUALIFYING VISIT WITH YAMILE DUEÑAS: 07/31/2014 - NEXT SCHEDULED VISIT: None - NEXT LAB APPOINTMENT: None Powered by EXFO, Reference: [id number], 08/14/2014 9:10:07 AM CELL STRIPPER, Pool: PETER JEFFERY RN ([id number]) STRIPPER documented in this encounter Plan of Treatment Not on filedocumented as of this encounter Results ALT (SGPT) (09/20/2014 11:35 AM CDT) P athologist Signature ALT (SGPT) 68 12 - 78 U/L [facility] Specimen Anatomical Collection Method Collection Time Receive d Time (Source) Location / / Volume Laterality 09/20/2014 11:35 09/20/2014 AM CDT 11:40 AM CDT Narrative [facility] - 09/20/2014 12:54 PM C DT Performed at [facility] [address], [address] [facility], [place] [address] Ramses Cleary MD LAB_1 Performing Organization Address City/State/ZIP Code Phon e Number [address] [address] documented in this encounter Visit Diagnoses Diagnosis Encounter for long-term (current) use of other medications - Primary Encounter for long-term (current) use of other medications documented in this encounter Care Teams Assistant Professor Of Physics Relationship Specialty Start Date End Date Ramses Cleary MD PCP - General Family Practice 10/21/11 documented as of this encounter
--- OUTSIDE RECORDS SUMMARY | 2022-04-08 12:16 | XMS_ITS | Encounter Summary ---
:1935 Author Organization [facility] Address [address], [place] [address] Care Team Providers Name Role Phone Ramses Cleary MD Primary Care Provider Unavailable Reason for Visit Procedure/Equipment (Routine) - Closed Specialty Diagnoses / Procedures Referred By Contact Refer red To Contact Radiology [place] Procedures Lida Dinero, Lv Radiology CT NECK SOFT TISSUE [address] [place] [address] WITH CONTRAST [address] [address] [place] [address] Referral ID Status Reason Start Date Expiration Date Visits Requ ested Visits Authorized [id number] Closed 07/17/2015 1 1 Encounter Details Date Type Department Care Team Description 07/17/2015 Imaging [facility] Ra diology CT [address] [place] [address] Social History Tobacco Use Types Packs/Day Years [...] Re sults for this W IV CONT TANK PUMPER PANELBOARD procedure are i n the results section. documented in this encounter Results CT NECK SOFT TISSUE WITH CONTRAST (07/17/2015 1:37 PM TANK PUMPER PANELBOARD) Anatomical Region Laterality Modality Neck, C-Spine, Spine, Vascular Computed Tomography Specimen (Source) Anatomical Collection Method Collection Time Re ceived Time Location / / Volume Laterality 07/17/2015 1:37 PM TANK PUMPER PANELBOARD Narrative 07/17/2015 1:59 PM TANK PUMPER PANELBOARD [facility] CT NECK SOFT TISSUE W CONT 07/17/2015 [...] without di screte mass. The parapharyngeal and personnel associate spaces are unremarkable. The oral cavity is [...] note might be different from the original. [facility] CT NECK SOFT TISSUE W CONT 07/17/2015 [...] without di screte mass. The parapharyngeal and personnel associate spaces are unremarkable. The oral cavity is [...] on filedocumented in this encounter Care Teams Real Estate Manager Relationship Specialty Start Date End Date Ramses Cleary MD PCP - General Family Practice 10/21/11 documented as of this encounter
--- OUTSIDE RECORDS SUMMARY | 2022-04-08 12:16 | XMS_ITS | Encounter Summary ---
:1935 Author Organization [facility] Address [address] [place] [address] Care Team Providers Name Role Phone Ramses Cleary MD Primary Care Provider Unavailable Encounter Details Date Type Department Care Team Description 10/31/2014 Orders Only [facility] Prostate cancer [address] [place], [place] [id number] Social History Tobacco Use Types Packs/Day Years [...] Results SURGICAL PATH (10/31/2014 5:22 PM CDT) [facility] gist Method Time Signature Histology (NOTE) [...] left apex, needle biopsy - ?1. 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 ??1 of 3 needle cores positive ?3. ??5% tissue involvement ?4. ??Perineural invasion not identified ?? Comments Deepika Arellano at Dr. Rodney's office is informed of the jayce gnosis on November 01, 2014. Electronically Signed Out By Kee Becerra MD Roberto Rodgers MD ([id number]) Kee Becerra MD Procedures/Addenda Clinical History Prostate [...] 24 slides. ?? snp/11/01/2014 Roberto Rodgers MD ([id number]) Kee Becerra MD [facility] Department of Pathology [address] [place] [id number] Specimen Anatomical Collection Method Collection Time Receive d Time (Source) Location / / Volume Laterality 10/31/2014 5:22 PM 5 5:39 CDT PM CDT Waqas Rodney MD LAB_1 Performing Organization Address City/State/[facility] Code Phon e Number [address] [address] documented in this encounter Visit Diagnoses Diagnosis Prostate cancer (HRC) Malignant neoplasm of prostate documented in this encounter Care Teams Undercover Operator Relationship Specialty Start Date End Date Ramses Cleary MD PCP - General Family Practice 10/21/11 documented as of this encounter
--- OUTSIDE RECORDS SUMMARY | 2022-04-08 12:16 | XMS_ITS | Encounter Summary ---
:1935 Author Organization [facility] Address [address], [place] [address] Care Team Providers Name Role Phone Ramses Cleary MD Primary Care Provider Unavailable Reason for Visit Reason Comments Refill allopurinol Encounter Details Date Type Department Care Team Description 08/01/2015 [facility] Ramses Cleary, Refill (allopurinol) [facility] Pr anjelica MURRAY [address] [place] [address] [address] [phone] [place] [address] Social History Tobacco Use Types Packs/Day Years [...] Order Shauna Dawson RN 08/01/2015, 4:08 PM GHT INSPECTOR Interface, Out [employer] Query - 08/01/2015 12:56 PM CST allopurinol (AKA ZYLOPRIM) 100 MG tablet [Pharmacy Med Name: ALLOPURINOL 100MG TABLETS] - REFILL: 3 months - PROTOCOL: Endocrinology: Gout Agents - Allopurinol - RATIONALE: This refill should last until the patient is due for a(n) ALT check. - LAST QUALIFYING VISIT IN [facility]: 06/04/2015 - NEXT SCHEDULED VISIT: [...] - WBC: 6.4k/cmm on 07/17/2015 Powered by RUN, Reference: [id number], 08/01/2015 12:56:16 PM FREIGHT INSPECTOR, Pool: SM[facility] REFYUDITH KRISHNAN ([id number]) GHT INSPECTOR documented in this encounter Plan of Treatment Not on filedocumented as of this encounter Visit Diagnoses Not on filedocumented in this encounter Care Teams Carpet Cutter Relationship Specialty Start Date End Date Ramses Cleary MD PCP - General Family Practice 10/21/11 documented as of this encounter
--- OUTSIDE RECORDS SUMMARY | 2022-04-08 12:16 | XMS_ITS | Encounter Summary ---
:1935 Author Organization [facility] Address [address] [address] Care Team Providers Name Role Phone Ramses Cleary MD Primary Care Provider Unavailable Reason for Visit Reason Comments Refill omeprazole Encounter Details Date Type Department Care Team Description 08/13/2015 Refill [facility] Ramses Cleary, Refill (omeprazole) [facility] Pr anjelica MURRAY [address] [place] [address] [address] [phone] [place] [address] Social History Tobacco Use Types Packs/Day Years [...] Order/Protocol. Adelaide Rehman RN 08/13/2015, 3:58 PM AGE CHECKER Interface, Out Gatheredtable Query - 08/13/2015 3:46 PM CST omeprazole (AKA PRILOSEC) 20 MG capsule [Pharmacy Med Name: OMEPRAZOLE 20MG CAPSULES] - REFILL: 12 months - PROTOCOL: Gastroenterology: Antiulcer - Proton Pump Inhibitors - RATIONALE: This refill should last until the patient is due for an office visit. - LAST QUALIFYING VISIT IN [facility]: 06/04/2015 - NEXT SCHEDULED VISIT: None - LAST REFILLED ON: 08/14/2014, QTY: 180, Refills: 3, Sig: take 1 capsule by mouth twice daily one hour before a meal (changed but equivalent) - [age] Powered by Hello [employer], Reference: [id number], 08/13/2015 3:46:26 PM BAGGAGE CHECKER, Pool: PETER JEFFERY RN ([id number]) AGE CHECKER documented in this encounter Plan of Treatment Not on filedocumented as of this encounter Visit Diagnoses Not on filedocumented in this encounter Care Teams File System Installer Relationship Specialty Start Date End Date Ramses Cleary MD PCP - [facility] 10/21/11 documented as of this encounter
--- OUTSIDE RECORDS SUMMARY | 2022-04-08 12:16 | XMS_ITS | Encounter Summary ---
:1935 Author Organization [facility] Address [address] [address] Care Team Providers Name Role Phone Ramses Cleary MD Primary Care Provider Unavailable Encounter Details Date Type Department Care Team Description 07/20/[address] [facility] Prosta te cancer (HRC) [facility] [address] [place] [address] Social History Tobacco Use Types Packs/Day [...] Deepika Arellano RN - 07/23/2015 12:29 PM ASSISTANT GROCERY Quick Note: Will discuss his test results with Dr. Rodney at his upcoming appt 07-24-2015. Deepika Arellano RN 07/23/2015, 12:28 PM STANT GROCERY Waqas Rodney MD - 07/20/2015 1:29 PM ASSISTANT GROCERY Quick Note: Prostate-specific antigen up a little bit please inform DISCUSS it visit STANT GROCERY documented in this encounter Plan of Treatment Not on filedocumented as of this encounter Procedures Procedure Name Priority Date/Time Associated Diagnosis Comme nts PROSTATIC SPECIFIC Routine 07/20/2015 10:12 AM Prostate cancer Results for this ANTIGEN (DIAGNOSTIC ASSISTANT GROCERY (HRC) procedur e are in F/U) the results section. documented in this encounter Results (ABNORMAL) PROSTATIC SPECIFIC ANTIGEN (F/U) (07/20/2015 10:12 AM ASSISTANT GROCERY) athologist Signature Prostatic Spec 6.95 (H) 0.00 - [facility] Ag 4.00 ng/ml HOSPITAL Specimen Anatomical Collection Method Collection Time Receive d Time (Source) Location / / Volume Laterality 07/20/2015 10:12 07/20/2015 AM ASSISTANT GROCERY 10:17 AM ASSISTANT GROCERY [address] [facility] - 07/20/2015 12:[address] Performed at [facility], [address] [place] [address] Waqas Rodney MD LAB_1 Performing Organization Address City/State/ZIP Code Phon e Number [address] [address] documented in this encounter Visit Diagnoses Diagnosis Prostate cancer (HRC) Malignant neoplasm of prostate documented in this encounter Care Teams Policy Change Clerks Supervisor Relationship Specialty Start Date End Date Ramses Cleary MD PCP - General Family Practice 10/21/11 documented as of this encounter
--- OUTSIDE RECORDS SUMMARY | 2022-04-08 12:16 | XMS_ITS | Encounter Summary ---
:1935 Author Organization [facility] Address [address] [place] [address] Care Team Providers Name Role Phone Ramses Cleary MD Primary Care Provider Unavailable Encounter Details Date Type Department Care Team Description 09/20/2014 Orders Only [facility] [place] Encoun ter for long-term [facility] (current) use of other [address] [place] [place] [address] Social History Tobacco Use Types Packs/Day [...] ALT (SGPT) 68 12 - 78 U/L [facility] Specimen Anatomical Collection Method Collection Time Receive d Time (Source) Location / / Volume Laterality 09/20/2014 11:35 09/20/2014 AM CDT 11:40 AM CDT Narrative [facility] - 09/20/2014 12:54 PM C DT Performed at [facility], [address] [place] [address] Ramses Cleary MD LAB_1 Performing Organization Address City/State/ZIP Code Phon e Number [address] [address] documented in this encounter Visit Diagnoses Diagnosis Encounter for long-term (current) use of other medications documented in this encounter Care Teams Audio Visual Director Relationship Specialty Start Date End Date Ramses Cleary MD PCP - General Family Practice 10/21/11 documented as of this encounter
--- OUTSIDE RECORDS SUMMARY | 2022-04-08 12:16 | XMS_ITS | Encounter Summary ---
:1935 Author Organization [facility] Address [address] [address] Care Team Providers Name Role Phone Ramses Cleary MD Primary Care Provider Unavailable Reason for Visit Reason Comments COUGH HEADACHE CONGESTION, SINUS DIARRHEA Encounter Details Date Type Department Care Team Description 06/04/2015 Office Visit [facility] Leyda Patel Bro nchitis (Primary Dx); Beatriz Tabor MD Travel advice encounter Practice [address] [place] [address] [place], [place] [phone] [address] Social History Tobacco Use Types Packs/Day Years [...] Comments Blood Pressure 138/82 06/04/2015 1:01 PM TALENT ACQUISITION COORDINATOR Pulse 70 06/04/2015 1:01 PM TALENT ACQUISITION COORDINATOR Temperature 36.4 ??C (97.6 ??F) 06/04/2015 1:01 PM TALENT ACQUISITION COORDINATOR Respiratory Rate 16 06/04/2015 1:01 PM TALENT ACQUISITION COORDINATOR Oxygen Saturation 97% 06/04/2015 1:01 PM TALENT ACQUISITION COORDINATOR Inhaled Oxygen Concentration - - Weight 108 kg (238 lb) 06/04/2015 1:01 PM TALENT ACQUISITION COORDINATOR Height 174 cm (5' 8.5) 06/04/2015 1:01 PM TALENT ACQUISITION COORDINATOR Body Mass Index 35.66 06/04/2015 1:01 PM TALENT ACQUISITION COORDINATOR documented in this encounter Progress Notes Leyda [...] smoke cigarettes. He also is going to [facility] on July 07 and wants to [...] worsen or fail to improve as anticipated. NT ACQUISITION COORDINATOR documented in this encounter Plan of Treatment Not on filedocumented as of this encounter Visit Diagnoses Diagnosis Bronchitis - Primary Bronchitis, not specified as acute or ch ronic Travel advice encounter documented in this encounter Care Teams Agriculture Department Chair Relationship Specialty Start Date End Date Ramses Cleary MD PCP - General Family Practice 10/21/11 documented as of this encounter
--- OUTSIDE RECORDS SUMMARY | 2022-04-08 12:16 | XMS_ITS | Encounter Summary ---
:1935 Author Organization [facility] Address [address] [address] Care Team Providers Name Role Phone Ramses Cleary MD Primary Care Provider Unavailable Reason for Visit Reason Comments BIOPSY TRUS Encounter Details Date Type Department Care Team Description 10/31/2014 Office Visit [facility] Waqas Rodney ostate cancer [place] Edson Griffith MD (Primary Dx) [facility] [address] [place] [address] [place], [place] [phone] [address] Social History Tobacco Use Types Packs/Day Years [...] before the test, you will need a city driver. After the test ?? Do not do [...] Results SURGICAL PATH (10/31/2014 5:22 PM CDT) [facility] gist Method Time Signature Histology (NOTE) [facility] [...] left apex, needle biopsy - ?1. 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 ??1 of 3 needle cores positive ?3. ??5% tissue involvement ?4. ??Perineural invasion not identified ?? Comments Deepika Eileen at Dr. Rodney's office is informed of the jayce gnosis on November 01, 2014. Electronically Signed Out By Kee Becerra MD Roberto Rodgers MD ([id number]) Kee Becerra MD Procedures/Addenda Clinical History Prostate [...] 24 slides. ?? snp11/01/2014 Roberto Rodgers MD ([id number]) Kee Becerra MD [facility] Department of Pathology [address] [place] [address] ??[address] Specimen Anatomical Collection Method Collection Time Receive d Time (Source) Location / / Volume Laterality 10/31/2014 5:22 PM 5 5:39 CDT PM CDT Waqas Rodney MD LAB_1 Performing Organization Address City/State/ZIP Code Phon e Number [address] [address] documented in this encounter Visit Diagnoses Diagnosis Prostate cancer (HRC) - Primary Malignant neoplasm of prostate documented in this encounter Care Teams Livestock Brands Inspector Relationship Specialty Start Date End Date Ramses Cleary MD PCP - General Family Practice 10/21/11 documented as of this encounter
--- OUTSIDE RECORDS SUMMARY | 2022-04-08 12:16 | XMS_ITS | Encounter Summary ---
:1935 Author Organization [facility] Address [address] [place] [address] Care Team Providers Name Role Phone Ramses Cleary MD Primary Care Provider Unavailable Reason for Referral Consult/Transfer Care (Routine) - Closed Specialty Diagnoses / Procedures Referred By Contact Refer red To Contact Lida Dinero MD [address] [place] [address] Referral ID Status Reason Start Date Expiration Date Visits Requ ested Visits Authorized [id number] Closed 07/17/2015 08/17/2015 1 1 Scheduling Instructions Your provider has recommended an appoint ment in primary care at [facility]. A tape control skin or spar mill operator will contact you to a ssist you in setting up this appointment, or you may call [phone] to schedule yo ur appointment. OR FRONT END ENGINEER Procedure/Equipment (Routine) - Closed Specialty Diagnoses / Procedures Referred By Contact Refer red To Contact Radiology [place] Procedures Lida Dinero, [facility] CT NECK SOFT TISSUE [address] [place] [address] WITH CONTRAST [address] [place] [address] [place] [address] Referral ID Status Reason Start Date Expiration Date Visits Requ ested Visits Authorized [id number] Closed 07/17/2015 1 1 OR FRONT END ENGINEER Procedure/Equipment (Routine) - Closed Specialty Diagnoses / Procedures Referred By Contact Refer red To Contact Radiology [place] Procedures Lida Dinero, [facility] ANGIOGRAPHY PULMONARY MD [address] [place] [address] EMBOLISM STUDY [address] [place] [address] [place] [address] Referral ID Status Reason Start Date Expiration Date Visits Requ ested Visits Authorized [id number] Closed 07/17/2015 1 1 OR FRONT END ENGINEER Procedure/Equipment (Routine) - Incomplete Specialty Diagnoses / Procedures Referred By Contact Refer red To Contact Procedures Lida Dinero MD XR CHEST PA/AP AND LAT [address] [place] [address] Referral ID Status Reason Start Date Expiration Date Visits V isits Requested Authorized [id number] Incomplete 07/17/2015 1 1 OR FRONT END ENGINEER Reason for Visit Reason Comments HEMOPTYSIS--ED Encounter Details Date Type Department Care Team Description 07/17/2015 Emergency [facility] Lida Dinero Cough with hemoptysis Emergency Department MD Fabian (Primary Dx) [address] [place] [address] [address] [place] [address] [address] [phone] [place] [address] Social History Tobacco Use Types Packs/Day Years [...] Comments Blood Pressure 149/80 07/17/2015 11:09 AM SENIOR FRONT END ENGINEER Pulse 85 07/17/2015 11:09 AM SENIOR FRONT END ENGINEER Temperature 36.4 ??C (97.5 ??F) 07/17/2015 11:09 AM SENIOR FRONT END ENGINEER Respiratory Rate 20 07/17/2015 11:09 AM SENIOR FRONT END ENGINEER Oxygen Saturation 96% 07/17/2015 11:09 AM SENIOR FRONT END ENGINEER Inhaled Oxygen Concentration - - Weight 104.3 kg (230 lb) 07/17/2015 11:09 AM SENIOR FRONT END ENGINEER Height 177.8 cm (5' 10) 07/17/2015 11:09 AM SENIOR FRONT END ENGINEER Body Mass Index 33 07/17/2015 11:09 AM SENIOR FRONT END ENGINEER documented in this encounter Discharge Instructions Discharge [...] Where can you learn more? Go to [employer] and enter M550 in the search box. Current as of: April 28, 2014 Content Version: 107 ?? [phone] [employer]. OR FRONT END ENGINEER documented in this encounter Medications at Time [...] home health clinician.] fluticasone (AKA Place 1 [place] into 0 08/03/2013 FLONASE) 50 MCG/ACT both [...] Leon RN - 07/17/2015 3:04 PM CST [facility] ED Nursing Discharge Note Vital Signs: BP: [...] treatment in ED: Stable ---End of Report--- Lida Grajeda MD - 07/17/2015 11:40 AM CST [facility] Emergency Department Visit Note Chief Complaint: HEMOPTYSIS--ED History of Present Illness HPI Zaid Rutledge is a 80 y.o. male who presents with hemoptysis. Patient returned from [facility] yesterday, awoke that Am with a sore [...] & Disposition Diagnosis: 1. Cough with hemoptysis OR FRONT END ENGINEER Jacqui Leon RN - 07/17/2015 11:06 AM CST Pt to ER ambulatory with c/o spitting up blood with slight cough this morning starting at around 0600. Pt states he just flew back from [facility] yesterday and noted a sore throat that started while at the airport. Pt reports cough and wheezing tightness of the chest. Pt denies any use of blood thinners. OR FRONT END ENGINEER documented in this encounter Plan of Treatment Scheduled Referrals Name Type Priority Associated Diagnoses Order S chedule PRIMARY CARE FOLLOW-UP Referral Routine Order ed: 07/17/2015 documented as of this encounter Procedures Procedure Name Priority Date/Time Associated Diagnosis Comme nts CT NECK SOFT TISSUE STAT 07/17/2015 1:37 PM Re sults for this W IV CONT SENIOR FRONT END ENGINEER procedure are i n the results section. CT ANGIO CHEST W IV STAT 07/17/2015 1:36 PM Re sults for this CONT PE STUDY SENIOR FRONT END ENGINEER procedure are in the results section. XR CHEST 2 VIEWS STAT 07/17/2015 12:27 PM Resu lts for this SENIOR FRONT END ENGINEER procedure are i n the results section. GOLD HOLD TUBE (OR Routine 07/17/2015 12:05 PM Re sults for this RED/BASS) SENIOR FRONT END ENGINEER procedure are i n the results section. REGULAR RED HOLD Routine 07/17/2015 12:05 PM Resu lts for this TUBE SENIOR FRONT END ENGINEER procedure are i n the results section. COAG HOLD (BLUE Routine 07/17/2015 12:05 PM Resul ts for this TUBE) SENIOR FRONT END ENGINEER procedure are i n the results section. BASIC METABOLIC Routine 07/17/2015 12:05 PM Resul ts for this PANEL SENIOR FRONT END ENGINEER procedure are i n the results section. COMPLETE BLOOD Routine 07/17/2015 12:05 PM Result s for this COUNT-NO DIFF SENIOR FRONT END ENGINEER procedure are in the results section. documented in this encounter Results CT NECK SOFT TISSUE WITH CONTRAST (07/17/2015 1:37 PM SENIOR FRONT END ENGINEER) Anatomical Region Laterality Modality Neck, C-Spine, Spine, Vascular Computed Tomography Specimen (Source) Anatomical Collection Method Collection Time Re ceived Time Location / / Volume Laterality 07/17/2015 1:37 PM SENIOR FRONT END ENGINEER Narrative 07/17/2015 1:59 PM SENIOR FRONT END ENGINEER [facility] CT NECK SOFT TISSUE W CONT 07/17/2015 [...] without di screte mass. The parapharyngeal and space operations officer spaces are unremarkable. The oral cavity is [...] be different from the original. [facility] CT NECK SOFT TISSUE W CONT 07/17/2015 [...] without di screte mass. The parapharyngeal and space operations officer spaces are unremarkable. The oral cavity is [...] ANGIOGRAPHY PULMONARY EMBOLISM STUDY (07/17/2015 1:36 PM SENIOR FRONT END ENGINEER) Anatomical Region Laterality Modality Chest, Lung, Vascular Computed Tomograph y Specimen (Source) Anatomical Collection Method Collection Time Re ceived Time Location / / Volume Laterality 07/17/2015 1:36 PM SENIOR FRONT END ENGINEER Narrative 07/17/2015 2:03 PM SENIOR FRONT END ENGINEER CTA PE STUDY 07/17/2015 1:36 PM INDICATION: Cough with hemoptysis TECHNIQUE: Helical acquisition through t he chest was performed during the arterial phase of contrast enhancement u sing IV contrast. 2D and 3D reconstructions were performed by the clinical laboratory technologist. Dose reduction techniques were used. IV [...] and 3D reconstructions were performed by the clinical laboratory technologist. Dose reduction techniques were used. IV [...] AND LAT 2 VIEWS (07/17/2015 12:27 PM SENIOR FRONT END ENGINEER) Anatomical Region Laterality Modality Chest, Lung Computed Radiography Specimen (Source) Anatomical Collection Method Collection Time Re ceived Time Location / / Volume Laterality 07/17/2015 12:27 PM SENIOR FRONT END ENGINEER Narrative 07/17/2015 12:32 PM SENIOR FRONT END ENGINEER XR CHEST AP/PA AND LAT 2VWS 07/17/2015 [...] REGULAR RED HOLD TUBE (07/17/2015 12:05 PM SENIOR FRONT END ENGINEER) [facility] gist Method Time Signature Regular Red Serum aliquot [facility] Hold held in HOSPITAL Chemistry sample rack for 7 days. Specimen Anatomical Collection Method Collection Time Receive d Time (Source) Location / / Volume Laterality 07/17/2015 12:05 07/17/2015 PM SENIOR FRONT END ENGINEER 12:10 PM SENIOR FRONT END ENGINEER [facility] - 07/17/2015 12:[address] Performed at [facility], [address] [place] [address] Lida Dinero MD LAB_1 Performing Organization Address City/[facility]/ZIP [facility] Phon e Number [address] [address] GOLD HOLD TUBE (OR RED/BASS) (07/17/2015 12:05 PM SENIOR FRONT END ENGINEER) [facility] Method Time Signature Gold Hold Held in [facility] sample rack for 7 days Specimen Anatomical Collection Method Collection Time Receive d Time (Source) Location / / Volume Laterality 07/17/2015 12:05 07/17/2015 PM SENIOR FRONT END ENGINEER 12:10 PM SENIOR FRONT END ENGINEER Narrative [facility] - 07/17/2015 12:[address] Performed at [facility], [address] [place] [address] Lida Dinero MD LAB_1 Performing Organization Address [facility]/ZIP [facility] Phon e Number [address] [address] COAG HOLD (BLUE TUBE) (07/17/2015 12:05 PM SENIOR FRONT END ENGINEER) athologist Signature Coag Hold Held in [facility] for 8 hours Specimen Anatomical Collection Method Collection Time Receive d Time (Source) Location / / Volume Laterality 07/17/2015 12:05 07/17/2015 PM SENIOR FRONT END ENGINEER 12:10 PM SENIOR FRONT END ENGINEER Narrative [facility] - 07/17/2015 12:[address] Performed at [facility], [address] [place] [address] Lida Dinero MD LAB_1 Performing Organization Address City/[facility]/ZIP [facility] Phon e Number [address] [address] HEMOGRAM/PLTS (07/17/2015 12:05 PM SENIOR FRONT END ENGINEER) P athologist Signature WBC 6.4 4.0 - 11.0 [facility] k/ul HOSPITAL RBC 4.98 4.5 - 5.9 [facility] M/ul [facility] Hemoglobin 15.7 13.5 - 17.5 [facility] g/dl [facility]OSPITAL HCT 46.5 41.0 - 53.0 [facility] % [facility] MCV 93.4 80 - 100 fl [facility] MCH 31.5 26 - 34 pg [facility] MCHC 33.8 32 - 36 [facility] g/dl [facility]OSPITAL RDW 14.0 11.5 - 14.5 [facility] Platelets 164 150 - 450 [facility] k/ul HOSPITAL MPV 9.6 6.5 - 11.0 [facility] Specimen Anatomical Collection Method Collection Time Receive d Time (Source) Location / / Volume Laterality 07/17/2015 12:05 07/17/2015 PM SENIOR FRONT END ENGINEER 12:10 PM SENIOR FRONT END ENGINEER Narrative [facility] - 07/17/2015 12:[address] Performed at [facility], [address] [place] [address] Lida Dinero MD LAB_1 Performing Organization Address City/State/ZIP Code Phon e Number [address] [address] (ABNORMAL) BASIC METABOLIC PANEL (07/17/2015 12:05 PM SENIOR FRONT END ENGINEER) athologist Signature Sodium 142 135 - 145 [...] GFR, Est., If Black >60 >60 ml/min/1.73m2 [facility] Specimen Anatomical Collection Method Collection Time Receive d Time (Source) Location / / Volume Laterality 07/17/2015 12:05 07/17/2015 PM SENIOR FRONT END ENGINEER 12:10 PM SENIOR FRONT END ENGINEER Narrative [facility] - 07/17/2015 12:[address] Performed at [facility], [address] [place], [place] [address] Lida Dinero MD LAB_1 Performing Organization Address City/State/ZIP Code Phon e Number [address] [address] documented in this encounter Visit Diagnoses Diagnosis Cough with hemoptysis - Primary Other hemoptysis documented in this encounter Care Teams Industrial Relations Director Relationship Specialty Start Date End Date Ramses Cleary MD PCP - General Family Practice 10/21/11 documented as of this encounter
--- OUTSIDE RECORDS SUMMARY | 2022-04-08 12:16 | XMS_ITS | Encounter Summary ---
:1935 Author Organization [facility] Address [address] [address] Care Team Providers Name Role Phone Ramses Cleary MD Primary Care Provider Unavailable Reason for Visit Reason Onset Date Comments Surgery, Cancel 10/17/2014 NEEDS TO RESCHEDULE PROCEDURE Encounter Details Date Type Department Care Team Description 10/17/2014 Telephone [facility] Waqas Rodney Cancel (NEEDS Beatriz Griffith MD TO RESCHEDULE [facility] [address] PROCEDURE) [address] [place] [address] [place], [place] [phone] Social History Tobacco Use Types Packs/Day Years [...] on filedocumented in this encounter Care Teams Backwinder Relationship Specialty Start Date End Date Ramses Cleary MD PCP - General Family Practice 10/21/11 documented as of this encounter
--- OUTSIDE RECORDS SUMMARY | 2022-04-08 12:16 | XMS_ITS | Encounter Summary ---
:1935 Author Organization [facility] Address [address], [place] [address] Care Team Providers Name Role Phone Ramses Cleary MD Primary Care Provider Unavailable Reason for Visit Reason Comments Prostate Cancer 6 month f/u PSA 6.95 done 07/20/15 Encounter Details Date Type Department Care Team Description 07/24/2015 Office Visit [facility] Waqas Rodney evated prostate Beatriz Griffith MD specific antigen [facility] [address] (PSA) (Primary Dx) [address] [place] [address] [place], [place] [phone] Social History Tobacco Use Types Packs/Day Years [...] Comments Blood Pressure 136/62 07/24/2015 8:48 AM BUSINESS DEVELOPMENT SPECIALIST Pulse - - Temperature - - Respiratory [...] left apex, needle biopsy - 1. 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 NESS DEVELOPMENT SPECIALIST documented in this encounter Progress Notes Waqas [...] other therapies for prostate cancer (not surgical). NESS DEVELOPMENT SPECIALIST documented in this encounter Plan of Treatment Not on filedocumented as of this encounter Visit Diagnoses Diagnosis Elevated prostate specific antigen (PSA) - Primary documented in this encounter Care Teams Universal Branch Consultant Relationship Specialty Start Date End Date Ramses Cleary MD PCP - General Family Practice 10/21/11 documented as of this encounter
--- OUTSIDE RECORDS SUMMARY | 2022-04-08 12:16 | XMS_ITS | Encounter Summary ---
:1935 Author Organization Formerly [facility] Address [address] [address] Care Team Providers Name Role Phone Ramses Cleary MD Primary Care Provider Unavailable Reason for Visit Reason Comments Medication Request Encounter Details Date Type Department Care Team Description 07/04/2015 Telephone [facility] Clinic Waqas Rodney dication Request [facility] MD [facility] [address] [place] [address] [place], [place] [phone] [address] Social History Tobacco Use Types Packs/Day Years [...] states that he will be leaving for [facility] on Thursday and would like to have an antibiotic on hand in case he develops a UTI or bladder infection. Patient states that Dr. Rodney gave him a prescription when he went to [place]. Informed patient that he is due for [...] prescription for Cipro has been sent to [facility] in [place], [place]. Informed patient that he was prescribed #20 tablets and he is only to take 5 days worth if he develops an infection. Patient verbalizes understanding. Deepika Arellano RN 07/04/2015, 11:01 AM NCIAL SALES ASSOCIATE Charley De Los Santos - 07/04/2015 10:46 AM CST Reason for call? Patient would like to speak to you about getting an new medication from you. He didnot specify which medication or what his symptoms are. Please call. Best time to reach you? anytime Ok to leave a detailed message? yes Charley De Los Santos ....................................07/04/2015 10:46 AM NCIAL SALES ASSOCIATE documented in this encounter Plan of Treatment Not on filedocumented as of this encounter Results (ABNORMAL) PROSTATIC SPECIFIC ANTIGEN (F/U) (07/20/2015 10:12 AM FINANCIAL SALES ASSOCIATE) P athologist Signature Prostatic Spec 6.95 (H) 0.00 - [facility] Ag 4.00 ng/ml HOSPITAL Specimen Anatomical Collection Method Collection Time Receive d Time (Source) Location / / Volume Laterality 07/20/2015 10:12 07/20/2015 AM FINANCIAL SALES ASSOCIATE 10:17 AM FINANCIAL SALES ASSOCIATE Narrative [facility] - 07/20/2015 12:[address] Performed at [facility], [address] [place], [place] [address] Waqas Rodney MD LAB_1 Performing Organization Address City/State/ZIP Code Phon e Number [address] [address] documented in this encounter Visit Diagnoses Diagnosis Prostate cancer ([facility]) - Primary Malignant neoplasm of prostate Prostate cancer (HRC) Malignant neoplasm of prostate documented in this encounter Care Teams Shape Hand Relationship Specialty Start Date End Date Ramses Cleary MD PCP - General Family Practice 10/21/11 documented as of this encounter
--- OUTSIDE RECORDS SUMMARY | 2022-04-08 12:16 | XMS_ITS | Encounter Summary ---
:1935 Author Organization [employer] Address [address], [place] [address] Care Team Providers Name Role Phone Ramses Cleary MD Primary Care Provider Unavailable Reason for Visit Auth/Cert Specialty Diagnoses / Procedures Referred By Contact Refer red To Contact Diagnoses lumbar spinal stenosis Procedures FORAMINOTOMY POSTERIOR APPROACH LUMBAR SPINE, Laterality: Left Referral ID Status Reason Start Date Expiration Date Visits Requ ested Visits Authorized [id number] 1 1 Encounter Details Date Type Department Care Team Description 10/29/2015 Surgery LV Operating Room Douglas Mae, L3-4, L4-5 LATERAL [address] MD [place] [address] [address] [phone] [place], [place] [address] (Wo rk) Social History [...] Jeffries, PT - 10/30/2015 12:00 PM CDT [facility] Physical Therapy Discharge Summary Zaid Rutledge [...] Thomas PA-C - 10/30/2015 9:27 AM CDT [facility]CO Discharge Summary: Spine Admit Date: [...] weeks NAME: Brian Thomas PA-C PHONE NUMBER: [phone] For information about patient referrals and other discharge orders, please see Discharge Instructions or the Other Orders tab in Chart Review. --End of Report-- documented in this encounter Discharge Instructions Discharge Arcelia Bailey RN - 10/30/2015 11:23 AM CDT Contact Information [place] [id number] Main or [phone] Same Day Surgery, M-F 7am to 5pm: [phone] Clinic Phone Numbers [facility] [phone] [facility] Orthopedics [phone] Emergency & Urgently Needed Care: For emergencies call 911 and/or get medical help right away. If you are a [facility] member and have medical needs after clinic hours you may call the [facility] [phone] or . Healthy Habits - Move! Aim [...] moderation - Choose healthy sources of fat: [place], peanut or canola oils, 1/4 cup nuts [...] doctor/pharmacist if it is safe to take eklp-sqk-qaeiccs drugs or herbs with your prescribed medicine. [...] further assistance after your discharge, please contact [phone] or visit [email or web address] Quitting can offer further [...] meal or a small snack Take an hfow-nbd-pxwqvku stool softener while taking narcotics (ex: Senna, [...] Follow-up appointment with Dr. Mae or physician medical records assistant in 2 weeks. We hope you had a positive experience and that you can definitely recommend [facility] to your family and friends. AttachmentsThe following attachments cannot be sent through Care Everywhere. LUMBAR LAMINECTOMY FOR SPINAL STENOSIS: POST-OP (TAMAZIGHT)documented in this encounter Medications at Time of [...] home health clinician.] fluticasone (AKA Place 1 [place] into 0 08/03/2013 FLONASE) 50 MCG/ACT both [...] Thomas PA-C - 10/30/2015 9:26 AM CDT [facility] Orthopedics Spine Progress Note - [...] Yost MD - 10/29/2015 9:33 AM CDT [facility] Interval History and Physical Note The [...] surgery on 10/29/[address] Pierre at [place]. Pertinent history: Has been having back pain. [...] Cardiac risk factor assessment: heart disease history (NM, angina, CABG, coronary stent)? no History of [...] risk assessment Preoperative cardiac evaluation algorithm from [facility] Electronically Signed By: Ramses Cleary MD 10/19/2015, 1:02 PM CC: documented in this encounter Procedure Notes Douglas Mae MD - 10/29/2015 11:58 AM CDT [facility] Brief Orthopaedic Operative Note Surgery Date: [...] operative microscopy. ATTENDING SURGEON: Douglas Mae MD ELECTRONIC PARTS DESIGNER: Mahin Dimas PA-C. Please note this procedure technically required an medical records assistant for the safety of the patient. [...] Dictated: 10/29/2015 14:56:53 Transcribed: 10/29/2015 15:34:54 Job: [id number] Doc: [id number] cc: documented in this encounter OR Notes H&P - Douglas Mae MD - 10/29/2015 9:50 AM CDT H&P reviewed. No new changes. documented in this encounter Plan of Treatment Scheduled Referrals Name Type Priority Associated Diagnoses Order S chedule Spine-Surgical Referral Routine ONCE for 1 Oc currences Consult-Adults starting 10/13 until 10/29/2015 Pdumd-Hovadndg-Uezqa Referral Routine Ordered : 10/30/2015 s documented [...] Douglas Mae MD LAB_1 Performing Organization Address [facility] Phon e Number [address] [address] HEMATOCRIT, BLOOD (10/29/2015 3:32 PM CDT) athologist Signature HCT 44.1 41.0 - 53.0 [facility] Specimen Anatomical Collection Method Collection Time Receive d Time (Source) Location / / Volume Laterality 10/29/2015 3:32 PM 6 3:33 CDT PM CDT [facility] - 10/29/2015 3:46 PM CD T Performed at [facility], [address] [place] [address] Douglas Mae MD LAB_1 Performing Organization Address City/[facility]/ZIP [facility] Phon e Number [address] [address] HEMOGLOBIN, BLOOD (10/29/2015 3:32 PM CDT) athologist Signature Hemoglobin 14.7 13.5 - 17.5 [facility] g/dl [facility] Specimen Anatomical Collection Method Collection Time Receive d Time (Source) Location / / Volume Laterality 10/29/2015 3:32 PM 6 3:33 CDT PM CDT [facility] - 10/29/2015 3:46 PM CD T Performed at [facility], [address] [place] [address] Douglas Mae MD LAB_1 Performing Organization Address City/[facility] Phon e Number [address] [address] XR C-ARM 1.5-2 HOURS (10/29/2015 12:19 PM [...] athologist Signature WBC 5.3 4.0 - 11.0 [facility] RBC 4.83 4.5 - 5.9 [facility] Hemoglobin 15.2 13.5 - 17.5 [facility] g/dl [facility] HCT 46.0 41.0 - 53.0 [facility] MCV 95.2 80 - 100 fl [facility] MCH 31.5 26 - 34 pg [facility] MCHC 33.0 32 - 36 [facility] g/dl [facility] RDW 13.2 11.5 - 14.5 [facility] Platelets 160 150 - 450 [facility] MPV 9.7 6.5 - 11.0 [facility] Specimen Anatomical Collection Method Collection Time Receive d Time (Source) Location / / Volume Laterality 10/29/2015 9:09 AM 201 6 9:14 CDT AM CDT [facility] - 10/29/2015 9:18 AM CD T Performed at [facility], [address] [place] [address] Mahin Dimas PA-C LAB_1 Performing Organization Address [facility] Phon e Number [address] [address] documented in this encounter Visit Diagnoses Diagnosis Lumbar spinal stenosis Spinal stenosis, lumbar region, without neurogenic claudication Plan of Care - Arcelia Elias RN - 10/30/2015 1:21 PM CDT [facility] Discharge Note - Nursing Admission Date/Time: [...] Corral, RN - 10/30/2015 6:57 AM CDT [facility] Plan of Care Note Assessment: Pain controlled with Oxycodone and Tylenol. HR regular, LSC, +BS, +BM, voiding well (self cath's). Ambulated tatitlek x2 with SBA Plan: Discharge to home today Plan of Care - Arabella Antunez RN - 10/29/2015 8:57 PM CDT [facility] Progress Note (Nursing) Assessment: Patient had [...] Wooten RN - 10/29/2015 1:39 PM CDT [facility] Nursing Post-Op Note Admission Date/Time: 10/29/2015 [...] RN) 0858 (Giv en - Provider: Arcelia Elias, EULOGIO) 2 Puff, Inhalation, BID, First dose on Thu10/29/15 at 2000, Until Discontinued bupivacaine 0.25% (PF) 0.25 % injection SOLN (COMPLETED) 1157 (Given - Provider: Keyana Torrez, EULOGIO) INTRA-OP, [...] 5 (Started - Provider: Valerie Pinon APRN, REINFORCING STEEL MACHINE OPERATOR) 2 g, Intravenous, ONCE (NON-SCHEDULED), Starting Thu10/29/15 at 0747, Until Discontinued, Pre-op dorzolamide (aka TRUSOPT) 2 % eye drops 1 Drop (CANCELED) 2020 (Given - Provider: Arabella Antunez RN) 0858 (Given - Provider: Arcelia Elias, EULOGIO) 1 Drop, Both Eyes, BID, First dose on Thu10/29/15 at 2000, Until Discontinued fluticasone (aka FLONASE) 50 MCG/ACT nasal spray 2 [place] (CANCEL ED) 08 (Given - Provider: Arcelia Elias RN) 2 [place], Both Nostrils, BID, First dose on Thu10/30/15 [...] (CANCELED ) 2230 (Given - Provider: Arabella Antunez, EULOGIO) 1 Lozenge, Oral, Q2H PRN, Starting Mon at 1321, Until Discontinued, Throat Pain, Post-op HYDROmorphone (aka DILAUDID) injection 0.5 mg (CANCELED) 1257 (Given - Provider: Eagle Luong RN) 0.5 mg, Intravenous, [id number], Starting 10/29/15 at 1217, Until Discontinued, Pain, PACU (only) oxyCODONE (aka ROXICODONE) tablet 5-10 mg (CANCELED) 1350 (Given - Provider: Oliver Wooten, RN)1802 (Given - Provider: Arabella Antunez, RN)2230 (Given - Provider: Arabella Antunez, EULOGIO) 0224 (Given - Provider: Eric Corral, RN)0621 (Given - Provider: Eric Corral, EULOGIO)1023 (Given - Provider: Arcelia Elias RN) 5-10 [...] Post-op documented in this encounter Care Teams Straightener Relationship Specialty Start Date End Date Ramses Cleary MD PCP - General Family Practice 10/21/11 documented as of this encounter
--- OUTSIDE RECORDS SUMMARY | 2022-04-08 12:16 | XMS_ITS | Encounter Summary ---
:1935 Author Organization [facility] Address [address], [place] [address] Care Team Providers Name Role Phone Ramses Cleary MD Primary Care Provider Unavailable Reason for Visit Reason Comments Refill Encounter Details Date Type Department Care Team Description 08/14/2014 Refill [facility] Alexei Cleary MD Refill [facility] [address] [place] [address] [place] [address] Social History Tobacco Use Types Packs/Day Years [...] Notes Interface, Out Surescripts Prov Query - 08/14/2014 9:10 AM CST [...] WBC: 6.5billion cells/L on 07/28/2014 Powered by [employer], Reference: [id number], 08/14/2014 9:10:07 AM Shlomo DURAN: PETER JEFFERY RN ([id number]) MER documented in this encounter Plan of Treatment Not on filedocumented as of this encounter Visit Diagnoses Not on filedocumented in this encounter Care Teams Enterprise Mobility Architect Relationship Specialty Start Date End Date Ramses Cleary MD PCP - General Family Practice 10/21/11 documented as of this encounter
--- OUTSIDE RECORDS SUMMARY | 2022-04-08 12:16 | XMS_ITS | Encounter Summary ---
:1935 Author Organization [facility] Address [address] [address] Care Team Providers Name Role Phone Ramses Cleary MD Primary Care Provider Unavailable Reason for Visit Reason Comments Follow-up, NOS Encounter Details Date Type Department Care Team Description 07/31/2014 Office Visit [facility] Darwin Mcfarland Vasov agal reaction [facility], DO (Primary Dx) Medicine [address] [place] [address] [place], [place] [phone] Social History Tobacco Use Types Packs/Day Years [...] Comments Blood Pressure 146/82 07/31/2014 3:46 PM BUNGHOLE BORER Pulse 68 07/31/2014 3:44 PM BUNGHOLE BORER Temperature 36.3 ??C (97.4 ??F) 07/31/2014 3:44 PM BUNGHOLE BORER Respiratory Rate 16 07/31/2014 3:44 PM BUNGHOLE BORER Oxygen Saturation - - Inhaled Oxygen Concentration - - Weight 106.6 kg (235 lb) 07/31/2014 3:44 PM BUNGHOLE BORER Height 174 cm (5' 8.5) 07/31/2014 3:44 PM BUNGHOLE BORER Body Mass Index 35.21 07/31/2014 3:44 PM BUNGHOLE BORER documented in this encounter Patient Instructions Patient InstructionsLeGracia arita LPN - 07/31/2014 3:42 PM CST Zaid [...] TROPONIN I 0.000 - 0.056 ng/ml <0.017 HOLE BORER documented in this encounter Progress Notes Darwin [...] episode Darwin Mcfarland DO 08/02/2014, 11:36 AM HOLE BORER documented in this encounter Nursing Notes Gracia Adler LPN - 07/31/2014 3:43 PM CST Zaid Rutledge is a 79 yr male in clinic today for follow up office visit for dizziness and nausea. Gracia Adler LPN 07/31/2014, 3:43 PM HOLE BORER documented in this encounter Plan of Treatment Not on filedocumented as of this encounter Visit Diagnoses Diagnosis Vasovagal reaction - Primary Syncope and collapse documented in this encounter Care Teams Tool Dispatcher Relationship Specialty Start Date End Date Ramses Cleary MD PCP - General Family Practice 10/21/11 documented as of this encounter
--- OUTSIDE RECORDS SUMMARY | 2022-04-08 12:16 | XMS_ITS | Encounter Summary ---
:1935 Author Organization [employer] Address [address] [place] [address] Care Team Providers Name Role Phone Ramses Cleary MD Primary Care Provider Unavailable Reason for Visit Procedure/Equipment (Routine) - Incomplete Specialty Diagnoses / Procedures Referred By Contact Refer red To Contact Procedures Lida Dinero MD XR CHEST PA/AP AND LAT [address] [place] [address] Referral ID Status Reason Start Date Expiration Date Visits V isits Requested Authorized [id number] Incomplete 07/17/2015 1 1 Encounter Details Date Type Department Care Team Description 07/17/[address] [address] Social History Tobacco Use Types Packs/Day Years [...] 07/17/2015 12:27 PM Resu lts for this HIGHWAY MAINTAINER procedure are i n the results section. documented in this encounter Results XR CHEST PA/AP AND LAT 2 VIEWS (07/17/2015 12:[address] MAINTAINER) Anatomical Region Laterality Modality Chest, Lung Computed Radiography Specimen (Source) Anatomical Collection Method Collection Time Re ceived Time Location / / Volume Laterality 07/17/2015 12:[address]TAINER Narrative 07/17/2015 12:[address]ER XR CHEST AP/PA AND LAT 2VWS 07/17/2015 [...] on filedocumented in this encounter Care Teams Cableman Relationship Specialty Start Date End Date Ramses Cleary MD PCP - General Family Practice 10/21/11 documented as of this encounter
--- OUTSIDE RECORDS SUMMARY | 2022-04-08 12:16 | XMS_ITS | Encounter Summary ---
:1935 Author Organization [facility] Address [address] [address] Care Team Providers Name Role Phone Ramses Cleary MD Primary Care Provider Unavailable Reason for Visit Reason Comments Elevated PSA PSA 5.7 done 10/19/15 Encounter Details Date Type Department Care Team Description 10/23/2015 Office Visit [facility] Waqas Rodney evated prostate [place] Edson Griffith MD specific antigen [facility] [address] (PSA) (Primary Dx) [address] [place] [address] [place], [place] [phone] [address] Social History Tobacco Use Types Packs/Day Years [...] SPECIFIC ANTIGEN (F/U) (04/18/2016 10:30 AM CDT) [facility] Method Time Signature Prostatic Spec 6.4 (H) 0.0 - 4.0 [facility] Ag ng/ml LABORATORIES Specimen Anatomical Collection Method Collection Time Receive d Time (Source) Location / / Volume Laterality 04/18/2016 10:30 04/18/2016 AM CDT 10:43 AM CDT Narrative [facility] - 04/18/2016 11:44 AM CDT Performed at [facility], [address] [place] [address] Waqas Rodney MD LAB_1 Performing Organization Address [facility] Phon e Number [facility] [phone] (ABNORMAL) PROSTATIC SPECIFIC ANTIGEN (F/U) (10/19/2015 11:12 AM CDT) [facility] gist Method Time Signature Prostatic Spec 5.7 (H) 0.00 - [facility] Ag 4.00 ng/ml LABORATORIES Specimen Anatomical Collection Method Collection Time Receive d Time (Source) Location / / Volume Laterality 10/19/2015 11:12 10/19/2015 AM CDT 11:25 AM CDT Narrative [facility] - 10/19/2015 2:36 PM C DT Performed at [facility], [address] [place] [address] Waqas Rodney MD LAB_1 Performing Organization Address [facility] Phon e Number [facility] [phone] documented in this encounter Visit Diagnoses Diagnosis Elevated prostate specific antigen (PSA) Elevated prostate specific antigen (PSA) - Primary Elevated prostate specific antigen (PSA) documented in this encounter Care Teams Manager Environmental Affairs Relationship Specialty Start Date End Date Ramses Cleary MD PCP - General Family Practice 10/21/11 documented as of this encounter
--- OUTSIDE RECORDS SUMMARY | 2022-04-08 12:17 | XMS_ITS | Encounter Summary ---
:1935 Author Organization Counts include 234 beds at the [facility] Address [address], [place] [address] Care Team Providers Name Role Phone Ramses Cleary MD Primary Care Provider Unavailable Reason for Referral Procedure/Equipment (Routine) - Incomplete Specialty Diagnoses / Procedures Referred By Contact Refer red To Contact Diagnoses Pneumonia Tan Caldwell MD Procedures XR CHEST PA/AP AND LAT 2 VIEWS * [address] [place] [address] Referral ID Status Reason Start Date Expiration Date Visits V isits Requested Authorized [id number] Incomplete 02/09/2014 1 1 Reason for Visit Reason Comments COUGH CONGESTION Encounter Details Date Type Department Care Team Description 02/09/2014 Office Visit [facility] Pneumo nirav (Primary Dx) [facility] [address] [place] [address] Social History Tobacco Use Types Packs/Day [...] Body Mass Index 34.85 08/03/2013 8:43 AM FRONT END ENGINEER documented in this encounter Patient Instructions Patient [...] goals areto: ?? Control asthma over the senior care. The asthma action plan tells you which [...] Where can you learn more? Go to G5/maniaTV and enter G441 in the search box. Last Revised: August 03, 2012 ?? [phone] [facility]. Pneumonia: After Your Visit Your Care [...] of quitting for good. ?? Take an cutd-prc-crncuii pain medicine, such as acetaminophen (Tylenol), ibuprofen [...] Where can you learn more? Go to G5/maniaTV and enter D336 in the search box. Last Revised: October 29, 2012 ?? [phone] [employer] documented in this encounter Progress Notes Tan [...] unspecified documented in this encounter Care Teams Entry Processor Relationship Specialty Start Date End Date Ramses Cleary MD PCP - General Family Practice 10/21/11 documented as of this encounter
--- OUTSIDE RECORDS SUMMARY | 2022-04-08 12:17 | XMS_ITS | Encounter Summary ---
:1935 Author Organization [facility] Address [address], [place] [address] Care Team Providers Name Role Phone Ramses Cleary MD Primary Care Provider Unavailable Encounter Details Date Type Department Care Team Description 08/03/2013 Orders Only [facility] Alexei Cleary MD [facility] [address] [place] [address] [place] [address] Social History Tobacco Use Types Packs/Day Years [...] 08/03/2013 12:00 AM CSTAssociated Order(s): ECG TRACING ING ASSOCIATE documented in this encounter Plan of Treatment Not on filedocumented as of this encounter Procedures Procedure Name Priority Date/Time Associated Diagnosis Comme nts ECG TRACING 08/03/2013 12:00 AM Results for this NURSING ASSOCIATE procedure are i n the results section . documented in this encounter Results ECG TRACING (08/03/2013 12:00 AM NURSING ASSOCIATE) Specimen (Source) Anatomical Location Collection Method / Collectio n Time Received Time / Laterality Volume 08/03/2013 Narrative This result has an attachment that is no t available. Transcriptions Ramses Cleary MD - 08/03/2013 12:00 AM CST Ramses Cleary MD EKG documented in this encounter Visit Diagnoses Not on filedocumented in this encounter Care Teams Senior Software Qa Engineer Relationship Specialty Start Date End Date Ramses Cleary MD PCP - General Family Practice 10/21/11 documented as of this encounter
--- OUTSIDE RECORDS SUMMARY | 2022-04-08 12:17 | XMS_ITS | Encounter Summary ---
:1935 Author Organization [employer] Address [address], [place] [address] Care Team Providers Name Role Phone Ramses Cleary MD Primary Care Provider Unavailable Reason for Visit Reason Onset Date Comments Labs Needed 12/26/2013 PSA Encounter Details Date Type Department Care Team Description 12/26/2013 Telephone [facility] Yumiko Brown CMA Labs Needed (PSA) Urology [address] [address] [place] [address] Social History Tobacco Use Types [...] on filedocumented in this encounter Care Teams Data Integration Analyst Relationship Specialty Start Date End Date Ramses Cleary MD PCP - General Family Practice 10/21/11 documented as of this encounter
--- OUTSIDE RECORDS SUMMARY | 2022-04-08 12:17 | XMS_ITS | Encounter Summary ---
:1935 Author Organization [facility] Address [address], [place] [address] Care Team Providers Name Role Phone Ramses Cleary MD Primary Care Provider Unavailable Reason for Visit Reason Onset Date Comments LAB RESULTS 07/11/2014 From 07/10 Encounter Details Date Type Department Care Team Description 07/11/2014 Telephone [facility] Ramses Cleary, LAB RESULTS (From Beatriz Tabor MD 07/10) Practice [address] [place] [address] [place], [place] [phone] [address] Social History Tobacco Use Types Packs/Day Years [...] Patient would like the prescription sent to [facility] in [place], [place]. Prescription for Duricef has been called in. Patient agrees with the plan and verbalizes understanding. Deepkia Arellano RN 07/12/2014, 1:01 PM RETE BUILDINGS ASSEMBLER Ml Tim RN - 07/11/2014 3:44 PM CST Patient notified the results are not all back from the lab. He will be notified when the results arecompleted. Zaid verbalizes understanding. Ml Tim RN 07/11/2014, 3:59 PM RETE BUILDINGS ASSEMBLER Aubrie Brown CMA - 07/11/2014 3:29 PM CST Routing to ordering provider. RETE BUILDINGS ASSEMBLER Maryan Hong - 07/11/2014 3:25 PM CST Reason for call? Patient called to go over lab results from 07/10/14. Please call. Best time to reach you? Anytime Ok to leave a detailed message? Yes Maryan Hong ....................................07/11/2014 3:25 PM RETE BUILDINGS ASSEMBLER documented in this encounter Plan of Treatment Not on filedocumented as of this encounter Visit Diagnoses Not on filedocumented in this encounter Care Teams Director Selection And Administration Relationship Specialty Start Date End Date Ramses Cleary MD PCP - General Family Practice 10/21/11 documented as of this encounter
--- OUTSIDE RECORDS SUMMARY | 2022-04-08 12:17 | XMS_ITS | Encounter Summary ---
:1935 Author Organization [facility] Address [address] [place] [address] Care Team Providers Name Role Phone Ramses Cleary MD Primary Care Provider Unavailable Encounter Details Date Type Department Care Team Description 04/10/2014 Orders Only [facility] Primar y prostate [place] [facility] adenocarcinoma [address] 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
--- OUTSIDE RECORDS SUMMARY | 2022-04-08 12:17 | XMS_ITS | Encounter Summary ---
:1935 Author Organization [employer] Address [address], [place] [address] Care Team Providers Name Role Phone Ramses Cleary MD Primary Care Provider Unavailable Reason for Visit Reason Onset Date Comments QUESTIONS, GENERAL 12/07/2013 Encounter Details Date Type Department Care Team Description 12/07/2013 Telephone [facility] Waqas Rodney, QUESTIONS, GENERAL Urology [address] [place] [address] [address] [phone] [place], [place] [address] (Wo rk) Social History [...] AM CDT Left message for Silvina at [facility] informing her that our office has received the fax. Dr. Rodney will review order when he returns to clinic tomorrow. Deepika Arellano, RN 12/07/2013, 11:34 AM Kami Catalan - 12/07/2013 10:39 AM CDT Reason for call? Silvina at [facility] called to check that a fax was [...] on filedocumented in this encounter Care Teams Scanner Supervisor Relationship Specialty Start Date End Date Ramses Cleary MD PCP - General Family Practice 10/21/11 documented as of this encounter
--- OUTSIDE RECORDS SUMMARY | 2022-04-08 12:17 | XMS_ITS | Encounter Summary ---
:1935 Author Organization [facility] Address [address], [place] [address] Care Team Providers Name Role Phone Ramses Cleary MD Primary Care Provider Unavailable Reason for Visit Reason Onset Date Comments Routine Post-op Call 08/05/2013 Encounter Details Date Type Department Care Team Description 08/05/2013 Telephone Same Day Surgery Ruy Grossman, Routine Post-op Call [address] [facility] [place] [address] Social History Tobacco Use Types [...] wake up? No Maggy De Leon RN EEPER Neema Grossman RN - 08/05/2013 2:27 PM CST Post Procedure Follow-up Call 08/05/2013 Time: 1428 Follow-up Phone Call Procedure: Operative procedure: exc left ear lesion Unable to Contact. First Attempt: Reached answering machine and Message left with [facility] phone number only Neema Grossman RN EEPER documented in this encounter Plan of Treatment Not on filedocumented as of this encounter Visit Diagnoses Not on filedocumented in this encounter Care Teams Film Reader Relationship Specialty Start Date End Date Ramses Cleary MD PCP - General Family Practice 10/21/11 documented as of this encounter
--- OUTSIDE RECORDS SUMMARY | 2022-04-08 12:17 | XMS_ITS | Encounter Summary ---
:1935 Author Organization [facility] Address [address] [address] Care Team Providers Name Role Phone Ramses Cleary MD Primary Care Provider Unavailable Encounter Details Date Type Department Care Team Description 07/10/2014 Orders Only [facility] UTI (l ower urinary tract [place] [facility] infection) (Primary Dx) [address] [place] [place] [address] Social History Tobacco Use Types Packs/Day [...] Deepika Arellano RN - 07/12/2014 12:58 PM AREA FIELD MANAGER Quick Note: Patient has been notified of his test results. Deepika Arellano RN 07/12/2014, 12:58 PM FIELD MANAGER Waqas Rodney MD - 07/12/2014 11:35 AM AREA FIELD MANAGER Quick Note: Has a urinary tract infection if not on antibiotics and started on Duricef 500 by mouth twice a dayfor 7 days FIELD MANAGER Waqas Rodney MD - 07/11/2014 11:37 AM AREA FIELD MANAGER Quick Note: Awaiting culture FIELD MANAGER Waqas Rodney MD - 07/10/2014 4:14 PM AREA FIELD MANAGER Quick Note: MAY HAVE UTI WILL CULTURE FIELD MANAGER documented in this encounter Plan of Treatment Not on filedocumented as of this encounter Procedures Procedure Name Priority Date/Time Associated Diagnosis Comme nts URINE CULTURE Routine 07/10/2014 3:51 PM UTI (lower urinary Re sults for this AREA FIELD MANAGER tract infection) procedure a re in the results section . UA MICRO IF STAT 07/10/2014 3:51 PM UTI (lower urinary Res ults for this AREA FIELD MANAGER tract infection) procedure a re in the results section . UA MICRO STAT 07/10/2014 3:51 PM Results f or this AREA FIELD MANAGER procedure are i n the results section . documented in this encounter Results URINE CULTURE (07/10/2014 3:51 PM AREA FIELD MANAGER) [facility] Method Time Signature Specimen Urine [facility] Description HOSPITAL Special Unspecified [facility] Requests [facility]OSPITAL Culture > 100,000 [facility] col/ml [facility]OSPITAL Escherichia coli Report Status Final [facility] 07/12/2014 HOSPITAL Organism > 100,000 [facility] col/ml [facility] Escherichia coli Specimen Anatomical Collection Method Collection Time Receive d Time (Source) Location / / Volume Laterality 07/10/2014 3:51 PM 5 4:23 AREA FIELD MANAGER PM AREA FIELD MANAGER Narrative [facility] - 07/12/2014 9:19 AM CS T Performed at [facility], [address] [place] [id number] Organism Antibiotic Method Susceptibility > 100,000 col/ml [...] Organization Address City/State/ZIP Code Phon e Number [address] [address] UA MICRO (07/10/2014 3:51 PM AREA FIELD MANAGER) athologist Signature RBC'S 0-3 0 - 3 /hpf [facility] WBC'S 3-5 0 - 5 /hpf [facility] Epith, Squamous Occ /hpf [facility] Bact Many [facility] Casts 0 /lpf [facility] Specimen Anatomical Collection Method Collection Time Receive d Time (Source) Location / / Volume Laterality 07/10/2014 3:51 PM 5 3:56 AREA FIELD MANAGER PM AREA FIELD MANAGER Narrative [facility] - 07/10/2014 4:03 PM CS T Performed at [place] [facility], [address] [place] [address] Waqas Rodney MD LAB_1 Performing Organization Address [facility] Phon e Number [address] [address] (ABNORMAL) UA MICRO IF (07/10/2014 3:51 PM AREA FIELD MANAGER) [facility] Method Time Signature Urine Color Yellow [facility] Urine Clarity Clear [facility] Sp Gr 1.020 1.005 - [facility] 1.030 [facility]PITAL Leuk Sml (A) NEG [facility] Nitr Positive (A) NEG [facility] pH 5.5 4.5 - 8.0 [facility] Prot Negative NEG mg/dl [facility] Gluc Negative NEG [facility] Ket Negative [facility] Urob 0.2 0.2 - 1.0 [facility] EU/dl [facility] Bili Negative [facility] Blood Negative NEG [facility] Specimen Anatomical Collection Method Collection Time Receive d Time (Source) Location / / Volume Laterality 07/10/2014 3:51 PM 5 3:56 AREA FIELD MANAGER PM AREA FIELD MANAGER Narrative [facility] - 07/10/2014 4:02 PM CS T Performed at [place] [facility], [address] [place] [address] Waqas Rodney MD LAB_1 Performing Organization Address [facility] Phon e Number [address] [address] documented in this encounter Visit Diagnoses Diagnosis UTI (lower urinary tract infection) - Pr imary Urinary tract infection, site not specif ied documented in this encounter Care Teams Federal Law Clerk Relationship Specialty Start Date End Date Ramses Cleary MD PCP - General Family Practice 10/21/11 documented as of this encounter
--- OUTSIDE RECORDS SUMMARY | 2022-04-08 12:17 | XMS_ITS | Encounter Summary ---
:1935 Author Organization [facility] Address [address] [place] [address] Care Team Providers Name Role Phone Ramses Cleary MD Primary Care Provider Unavailable Encounter Details Date Type Department Care Team Description 08/04/2013 Orders Only [facility] [address] [place] [address] Social History Tobacco Use Types Packs/Day Years [...] on filedocumented in this encounter Care Teams Advertising Agency Manager Relationship Specialty Start Date End Date Ramses Cleary MD PCP - General Family Practice 10/21/11 documented as of this encounter
--- OUTSIDE RECORDS SUMMARY | 2022-04-08 12:17 | XMS_ITS | Encounter Summary ---
:1935 Author Organization [facility] Address [address], [place] [address] Care Team Providers Name Role Phone Ramses Cleary MD Primary Care Provider Unavailable Encounter Details Date Type Department Care Team Description 08/04/2013 Surgery LV Operating Room Mingo Santana, EXCISION AURICULAR BASAL [address] [place] [address] [phone] [place] [address] Social History Tobacco Use Types Packs/Day Years [...] Comments Blood Pressure 130/72 08/04/2013 7:00 AM DRY CHAIN OPERATOR Pulse 67 08/04/2013 7:00 AM DRY CHAIN OPERATOR Temperature 37 ??C (98.6 ??F) 08/04/2013 7:00 AM DRY CHAIN OPERATOR Respiratory Rate 20 08/04/2013 7:00 AM DRY CHAIN OPERATOR Oxygen Saturation 97% 08/04/2013 7:00 AM DRY CHAIN OPERATOR Inhaled Oxygen Concentration - - Weight 104.3 kg (230 lb) 08/01/2013 1:48 PM DRY CHAIN OPERATOR Height 175.3 cm (5' 9) 08/01/2013 1:48 PM DRY CHAIN OPERATOR Body Mass Index 33.97 08/01/2013 1:48 PM DRY CHAIN OPERATOR documented in this encounter Discharge Instructions Discharge InstructionsAnusha Bishop RN - 08/04/2013 10:01 AM CST Contact Information [address] [address] Main or [phone] Same Day Surgery, M-F 7am to 5pm: [phone] Clinic Phone Numbers [facility] [phone] Emergency & Urgently Needed Care: For emergencies call 911 and/or get medical help right away. If you are a [facility] member and have medical needs after clinic hours you may call the [facility] [phone] or . Special Instruction: : Rest today [...] experience and that you can definitely recommend [facility] to your family and friends. CHAIN OPERATOR documented in this encounter Medications at Time of Discharge Medication Sig Dispensed Refills Start Date End Date dorzolamide (AKA [The details of the 0 TRUSOPT) 2 % eye drop medication are not solutionIndications: available because Increased Intraocular there are pending Pressure changes by a home health clinician.] fluticasone (AKA Place [address] [place] into 0 08/03/2013 FLONASE) 50 MCG/ACT both [...] Kenny MD - 08/04/2013 3:41 PM CST [facility] Post-Operative Anesthesia Note Admit Date/Time: 08/04/2013 [...] Kenny MD --- End of Report --- CHAIN OPERATOR Asif Kenny MD - 08/04/2013 7:19 AM CST [facility] Pre-Anesthesia Evaluation and Plan Surgery Date: [...] Route Frequency ??? bacitracin-polymyxin b (aka POLYSPORIN) [id number] UNIT/GM ointment Intra-Op ??? fentaNYL (aka SUBLIMAZE) injection 50-100 mcg 50-100 mcg IV ONCE PRN ??? lactated ringers infusion 1,000 mL 1,000 mL IV Continuous ??? lidocaine (aka XYLOCAINE) 1 % injection 0.1-1 mL 0.1-1 mL Injection Once ??? lidocaine-epinephrine 1-1:720215 % injection Intra-Op ??? midazolam (aka VERSED) [...] benefits, alternatives and side effects with patient/responsible alliance party. All questions answered. Asif Kenny MD CHAIN OPERATOR documented in this encounter Procedure Notes Mingo Santana MD - 08/04/2013 9:37 AM CST [facility] Brief Operative Progress Note Surgery Date: [...] Santana MD --- End of Report --- CHAIN OPERATOR Mingo Santana MD - 08/04/2013 12:00 AM [...] room in satisfactory condition. Mingo Santana MD BFTab:michel Dictated: 08/04/2013 10:48:45 Transcribed: 08/04/2013 14:24:34 Job: [id number] Doc: [id number] cc: CHAIN OPERATOR [facility], Provider - 08/04/2013 12:00 AM CST CHAIN OPERATOR [facility], Provider - 08/04/2013 12:00 AM CSTAssociated Order(s): EKG IP CHAIN OPERATOR documented in this encounter OR Notes H&P - [facility], Provider - 08/04/2013 12:00 AM CST CHAIN OPERATOR documented in this encounter Miscellaneous Notes [facility], Provider - 08/04/2013 12:00 AM CST CHAIN OPERATOR [facility], Provider - 08/04/2013 12:00 AM CST CHAIN OPERATOR documented in this encounter Plan of Treatment Not on filedocumented as of this encounter Procedures Procedure Name Priority Date/Time Associated Comments Diagnosis EXCISION SOFT Same Day Surgery 08/04/2013 8:26 Facial lesion TISSUE LESION(S) AM DRY CHAIN OPERATOR FACE SKIN GRAFT FULL Same Day Surgery 08/04/2013 8:26 Facial lesion THICKNESS SKIN AM DRY CHAIN OPERATOR SURGICAL PATH Routine 08/04/2013 6:00 Results for this AM DRY CHAIN OPERATOR procedure are i n the results section. EKG IP 08/04/2013 12:00 Results for this AM DRY CHAIN OPERATOR procedure are i n the results section. documented in this encounter Results SURGICAL PATH (08/04/2013 6:00 AM DRY CHAIN OPERATOR) [facility] gist Method Time Signature Histology (NOTE) [facility] [...] gonzales 1. ??Frozen section remnant -- customer retention representative central cross sections 2. ??Anterior tip 3. ??Anterior half 4. ??Posterior half 5. 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 ??(SP, This test was performed at [facility], [address] [place] [address], [id number].) Microscopic Description Microscopic examination is performed on seven slides. ?? snp/08/05/2013 Kee Becerra MD [facility] Department of Pathology [address], [place] ??[address] Specimen Anatomical Collection Method Collection Time Receive d Time (Source) Location / / Volume Laterality EXCISION OF SKIN / 08/04/2013 6:00 AM Unknown DRY CHAIN OPERATOR 12:19 PM DRY CHAIN OPERATOR Mingo Santana MD LAB_1 Performing Organization Address City/State/ZIP Code Phon e Number [address] [address] EKG IP (08/04/2013 12:00 AM DRY CHAIN OPERATOR) Specimen (Source) Anatomical Location Collection Method / Collectio n Time Received Time / Laterality Volume 08/04/2013 Narrative This result has an attachment that is no t available. Transcriptions [facility], Provider - 08/04/2013 12:00 AM CST Provider [facility] EKG documented in this encounter Visit Diagnoses Diagnosis Facial lesion Unspecified disorder of skin and subcuta neous tissue documented in this encounter Administered Medications Inactive Administered Medications - up to 3 most recent administrations Medication Order MAR Action Action Date Dose Rate Site bacitracin-polymyxin b (aka Given 08/04/2013 9:15 AM DRY CHAIN OPERATOR POLYSPORIN) [id number] UNIT/GM ointment INTRA-OP, Starting on Ana 08/04/13 at 0640, For 1 dose, Verify Route and Dose with Surgeon Prior to Administration lidocaine-epinephrine 1-1:802142 % injec tion Given 08/04/2013 9:15 AM DRY CHAIN OPERATOR 1 mL INTRA-OP, Starting on Ana 08/04/13 at 0640, For 1 dose, Verify Route and Dose with Surgeon Prior to Administration documented in this encounter Active and Recently Administered Medications Times are shown in DRY CHAIN OPERATOR. Scheduled Medication Order 08/02/2013 08/03/2013 08/04/2013 bacitracin-polymyxin b (aka POLYSPORIN) [id number] UNIT/GM ointme nt (CANCELED) 0915 (Given - Provider: Katharina Dunbar RN) INTRA-OP, 1 dose, Starting Ana 08/04/13 at 0640, Until Discontinu ed lidocaine-epinephrine 1-1:922969 % injection (CANCELED) 0915 (Given - Provider: Katharina Dunbar RN) INTRA-OP, 1 dose, Starting Ana 08/04/13 at 0640, Until Discontinu ed documented in this encounter Care Teams Historic Site Administrator Relationship Specialty Start Date End Date Ramses Cleary MD PCP - General Family Practice 10/21/11 documented as of this encounter
--- OUTSIDE RECORDS SUMMARY | 2022-04-08 12:17 | XMS_ITS | Encounter Summary ---
:1935 Author Organization [facility] Address [address], [place] [address] Care Team Providers Name Role Phone Ramses Cleary MD Primary Care Provider Unavailable Reason for Visit Reason Comments DIZZINESS SWEATING,EXCESSIVE Nausea Encounter Details Date Type Department Care Team Description 07/28/2014 Office Visit [facility] Darwin Mcfarland Vasov agal reaction (Primary Dx); [facility], DO Nausea; Medicine [address] Dizz[address] [place] [address] [place], [place] [phone] Social History Tobacco Use Types Packs/Day Years [...] Comments Blood Pressure 136/78 07/28/2014 4:09 PM MEDICAL MICROBIOLOGIST Pulse 68 07/28/2014 4:06 PM MEDICAL MICROBIOLOGIST Temperature 36.3 ??C (97.4 ??F) 07/28/2014 4:06 PM MEDICAL MICROBIOLOGIST Respiratory Rate 12 07/28/2014 4:06 PM MEDICAL MICROBIOLOGIST Oxygen Saturation - - Inhaled Oxygen Concentration - - Weight 106.5 kg (234 lb 12.8 oz) 07/28/2014 4:06 PM MEDICAL MICROBIOLOGIST Height 174 cm (5' 8.5) 07/28/2014 4:06 PM MEDICAL MICROBIOLOGIST Body Mass Index 35.18 07/28/2014 4:06 PM MEDICAL MICROBIOLOGIST documented in this encounter Patient Instructions Patient InstructionsLeGracia arita LPN - 07/28/2014 4:02 PM CST Zaid Rutledge was offered Online Patient Services and does want to sign up and register at this time. Gracia Adler LPN 07/28/2014, 4:03 PM Labs this evening Recheck on Thursday PM and we can review your course Darwin Mcfarland DO 07/28/2014, 5:00 PM CAL MICROBIOLOGIST documented in this encounter Progress Notes Darwin Mcfarland DO - 07/31/2014 7:58 AM MEDICAL MICROBIOLOGIST Quick Note: Reviewed with patient during visit Darwin Mcfarland DO 07/31/2014, 7:57 AM CAL MICROBIOLOGIST Darwin Mcfarland DO - 07/28/2014 5:14 PM [...] episode Darwin Mcfarland DO 07/31/2014, 7:56 AM CAL MICROBIOLOGIST documented in this encounter Nursing Notes Gracia Adler LPN - 07/28/2014 4:05 PM CST Zaid Rutledge is a 79 yr male in clinic today for dizziness, sweats, nausea while sitting and watching tv. Gracia Adler LPN 07/28/2014, 4:05 PM CAL MICROBIOLOGIST documented in this encounter Plan of Treatment Not on filedocumented as of this encounter Procedures Procedure Name Priority Date/Time Associated Diagnosis Comme nts COMPLETE BLOOD Routine 07/28/2014 5:30 PM Nausea Results for this COUNT-W/DIFF MEDICAL MICROBIOLOGIST procedure are i n the results section. BASIC METABOLIC Routine 07/28/2014 5:30 PM Nausea Result s for this PANEL MEDICAL MICROBIOLOGIST procedure are i n the results section. TROPONIN I Routine 07/28/2014 5:30 PM Nausea Results f or this MEDICAL MICROBIOLOGIST procedure are i n the results section. ECG 12-LEAD ROUTINE Routine 07/28/2014 5:15 PM Nausea Re sults for this MEDICAL MICROBIOLOGIST procedure are i n the results section. documented in this encounter Results TROPONIN I (07/28/2014 5:30 PM MEDICAL MICROBIOLOGIST) P athologist Signature Troponin I <0.017 0.000 - [facility] 0.056 ng/ml [facility]OSPITAL Specimen Anatomical Collection Method Collection Time Receive d Time (Source) Location / / Volume Laterality 07/28/2014 5:30 PM 5 5:35 MEDICAL MICROBIOLOGIST PM MEDICAL MICROBIOLOGIST Narrative [facility] - 07/28/2014 7:17 PM CS T Performed at [facility], [address] [place] [address] Darwin Mcfarland DO LAB_1 Performing Organization Address City/State/ZIP Code Phon e Number [address] [address] (ABNORMAL) BASIC METABOLIC PANEL (07/28/2014 5:30 PM MEDICAL MICROBIOLOGIST) athologist Signature Sodium 145 135 - 145 [...] Est., If >60 >60 [facility] Black ml/min/1.7 [facility] 3m2 Specimen Anatomical Collection Method Collection Time Receive d Time (Source) Location / / Volume Laterality 07/28/2014 5:30 PM 5 5:35 MEDICAL MICROBIOLOGIST PM MEDICAL MICROBIOLOGIST Narrative [facility] - 07/28/2014 6:16 PM CS T Performed at [facility], [address] [facility], [place] [address] Darwin Mcfarland DO LAB_1 Performing Organization Address City/State/ZIP Code Phon e Number [address] [address] CBC AND DIFF (07/28/2014 5:30 PM MEDICAL MICROBIOLOGIST) athologist Signature WBC 6.5 4.0 - 11.0 [facility] k/ HOSPITAL RBC 5.22 4.5 - 5.9 [facility] M/[facility] Hemoglobin 16.5 13.5 - [facility] 17.5 g/dl HOSPITAL HCT 47.6 41.0 - [facility] 53.0 % HOSPITAL MCV 91.1 80 - 100 [facility] MCH 31.6 26 - 34 pg [facility] MCHC 34.7 32 - 36 [facility] g/dl [facility]OSPITAL RDW 12.9 11.5 - [facility] 14.5 % HOSPITAL Platelets 185 150 - 450 [facility] k/[facility] MPV 8.9 6.5 - 11.0 [facility] PMN/Band 54 % [facility] Lymph 32 % [facility] Bacon 8 % [facility] Eos 5 % [facility] Baso 1 % [facility] Neutrophil 3.5 1.8 - 7.7 [facility] Absolute [facility] HOSPITAL Lymph Absolute 2.1 1.0 - 4.8 [facility] Bacon Absolute 0.5 0.1 - 0.7 [facility] HOSPITAL Eos Absolute 0.4 0.0 - 0.5 [facility] HOSPITAL Baso Absolute 0.0 0.0 - 0.2 [facility] Specimen Anatomical Collection Method Collection Time Receive d Time (Source) Location / / Volume Laterality 07/28/2014 5:30 PM 5 5:35 MEDICAL MICROBIOLOGIST PM MEDICAL MICROBIOLOGIST Narrative [facility] - 07/28/2014 6:14 PM CS T Performed at [facility], [address] [place] [address] Darwin Mcfarland DO LAB_1 Performing Organization Address City/State/ZIP Code Phon e Number [address] [address] ECG 12-LEAD ROUTINE (07/28/2014 5:15 PM MEDICAL MICROBIOLOGIST) athologist Signature Ventricular Rate 68 [facility] Atrial Rate 68 [facility] P-R Interval 140 ms [facility] QRS Duration 88 ms [facility] QT 418 ms [facility] QTc 444 ms [facility] P [place] 15 degrees [facility] R [place] -2 degrees [facility] T [place] -3 degrees [facility] Specimen (Source) Anatomical Collection Method Collection Time Re ceived Time Location / / Volume Laterality 07/28/2014 5:15 PM MEDICAL MICROBIOLOGIST Narrative [facility] - 07/28/2014 5:27 PM MEDICAL MICROBIOLOGIST Sinus rhythm Normal ECG No previous ECGs available No change since previous tracing from 2013 tracing Confirmed by DO [place] MARK ([id number]) o n 07/28/2014 5:27:24 PM Procedure Note Darwin Mcfarland DO - 07/28/2014Formatti ng of this note might be different from the original. Sinus rhythm Normal ECG No previous ECGs available No change since previous tracing from 2013 tracing Confirmed by DO [place] MARK ([id number]) o n 07/28/2014 5:27:24 PM Darwin Mcfarland DO EKG Performing Organization Address City/State/ZIP Code Phon e Number [facility] documented in this encounter Visit Diagnoses Diagnosis Vasovagal reaction - Primary Syncope and collapse Nausea Nausea alone Dizziness Dizziness and giddiness documented in this encounter Care Teams Apiculture Teacher Relationship Specialty Start Date End Date Ramses Cleary MD PCP - General Family Practice 10/21/11 documented as of this encounter
--- OUTSIDE RECORDS SUMMARY | 2022-04-08 12:17 | XMS_ITS | Encounter Summary ---
:1935 Author Organization [facility] Address [address] [address] Care Team Providers Name Role Phone Ramses Cleary MD Primary Care Provider Unavailable Reason for Visit Reason Comments Hearing Aid Encounter Details Date Type Department Care Team Description 09/27/2013 Office Visit [facility] Delvis Chaudhry hearing loss, [facility] MICHAEL Roach bilateral (Primary [facility] Dx) [address] [place] [address] Social History Tobacco Use Types Packs/Day Years [...] AU.D. - 09/27/2013 5:23 PM CDT The Cardiac Tech performs an Otoscopic examination of both ear [...] Primary documented in this encounter Care Teams Granular Operator Relationship Specialty Start Date End Date Ramses Cleary MD PCP - General Family Practice 10/21/11 documented as of this encounter
--- OUTSIDE RECORDS SUMMARY | 2022-04-08 12:17 | XMS_ITS | Encounter Summary ---
:1935 Author Organization [facility] Address [address], [place] [address] Care Team Providers Name Role Phone Ramses Cleary MD Primary Care Provider Unavailable Reason for Visit Reason Onset Date Comments Labs Needed 03/30/2014 PSA needed Encounter Details Date Type Department Care Team Description 03/30/2014 Telephone [facility] Waqas Rodney Needed (PSA [place] Edson Griffith MD needed ) [facility] [address] [place] [address] [place], [place] [phone] Social History Tobacco Use Types Packs/Day Years [...] on filedocumented in this encounter Care Teams Wheel Shop Supervisor Relationship Specialty Start Date End Date Ramses Cleary MD PCP - General Family Practice 10/21/11 documented as of this encounter
--- OUTSIDE RECORDS SUMMARY | 2022-04-08 12:17 | XMS_ITS | Encounter Summary ---
:[address] [facility] Address [address] [address] Care Team Providers Name Role Phone Ramses Cleary MD Primary Care Provider Unavailable Reason for Visit Reason Comments Post Op Exam remove sutures Encounter Details Date Type Department Care Team Description 08/11/2013 Office Visit [facility] Mingo Santana cancer (Primary [place] [facility] bong [place] MD Dx) [address] [place] [address] [phone] [place], [place] [phone] Social History Tobacco Use Types Packs/Day Years [...] CST This office note has been dictated. STRIAL ARTS TEACHER Mingo Santana MD - 08/11/2013 12:00 AM [...] Dictated: 08/11/2013 13:05:29 Transcribed: 08/15/2013 13:43:47 Job: [id number] Doc: [id number] cc: STRIAL ARTS TEACHER documented in this encounter Plan of Treatment Not on filedocumented as of this encounter Visit Diagnoses Diagnosis Skin cancer - Primary Unspecified malignant neoplasm of skin, site unspecified documented in this encounter Care Teams Home Performance Consultant Relationship Specialty Start Date End Date Ramses Cleary MD PCP - General Family Practice 10/21/11 documented as of this encounter
--- OUTSIDE RECORDS SUMMARY | 2022-04-08 12:17 | XMS_ITS | Encounter Summary ---
:1935 Author Organization [facility] Address [address] [place] [address] Care Team Providers Name Role Phone Ramses Cleary MD Primary Care Provider Unavailable Reason for Visit Reason Onset Date Comments Orders Needed 07/10/2014 Patient thinks he guzman s a UTI. He would like lab order in for a urine. Encounter Details Date Type Department Care Team Description 07/10/2014 Telephone [facility] Ramses Cleary, Orders Needed Beatriz Tabor MD (Patient thinks he Practice [address] has a UTI. He would [address] [place] [address] [place], [place] a urine.) [phone] Social History Tobacco Use Types Packs/Day [...] Waqas Rodney MD - 07/10/2014 4:15 PM PARTICLEBOARD FACTORY WORKER Addended by: WAQAS RODNEY on: 07/10/2014 04:15 PM Modules accepted: Orders ICLEBOARD FACTORY WORKER documented in this encounter Nursing Notes Yumiko [...] and agrees. Yumiko Cole 07/10/2014, 2:38 PM ICLEBOARD FACTORY WORKER Ml Tim, RN - 07/10/2014 1:15 PM CST Call placed to patient to get more information regarding his UTI symptoms. Message left for Zaid to call the clinic. Ml Tim RN 07/10/2014, 1:16 PM ICLEBOARD FACTORY WORKER Ambar Martins - 07/10/2014 12:47 PM CST Reason for call? Patient would like to have an order put in for a urine. He thinks he has a UTI. Please call him to confirm. Best time to reach you? anytime Ok to leave a detailed message? yes Ambar Martins ....................................07/10/2014 12:47 PM ICLEBOARD FACTORY WORKER documented in this encounter Plan of Treatment Not on filedocumented as of this encounter Results (ABNORMAL) UA MICRO IF (07/10/2014 3:51 PM PARTICLEBOARD FACTORY WORKER) Patholo gist Method Time Signature Urine Color Yellow [facility] Urine Clarity Clear [facility] Sp Gr 1.020 1.005 - [facility] 1.030 [facility]OSPITAL Leuk Sml (A) NEG [facility] Nitr Positive (A) NEG [facility] pH 5.5 4.5 - 8.0 [facility] Prot Negative NEG mg/dl [facility] Gluc Negative NEG [facility] Ket Negative [facility] Urob 0.2 0.2 - 1.0 [facility] EU/dl HOSPITAL Bili Negative [facility] Blood Negative NEG [facility] Specimen Anatomical Collection Method Collection Time Receive d Time (Source) Location / / Volume Laterality 07/10/2014 3:51 PM 5 3:56 PARTICLEBOARD FACTORY WORKER PM PARTICLEBOARD FACTORY WORKER Narrative [facility] - 07/10/2014 4:02 PM CS T Performed at [facility], [address] [place] [address] Waqas Rodney MD LAB_1 Performing Organization Address City/State/ZIP Code Phon e Number [address] [address] documented in this encounter Visit Diagnoses Diagnosis UTI (lower urinary tract infection) - Pr imary Urinary tract infection, site not specif ied UTI (lower urinary tract infection) - Pr imary Urinary tract infection, site not specif ied documented in this encounter Care Teams Head Kiln Operator Relationship Specialty Start Date End Date Ramses Cleary MD PCP - General Family Practice 10/21/11 documented as of this encounter
--- OUTSIDE RECORDS SUMMARY | 2022-04-08 12:17 | XMS_ITS | Encounter Summary ---
:1935 Author Organization [facility] Address [address], [place] [address] Care Team Providers Name Role Phone Ramses Cleary MD Primary Care Provider Unavailable Reason for Visit Reason Comments PROSTATE EXAM(ROUTINE/YEARLY) Encounter Details Date Type Department Care Team Description 12/30/2013 Office Visit [facility] Waqas Rodney [facility] Urology MD [place] (Primary Dx) [address] [facility] [address] [place] [address] [address] [place], [place] [phone] Social History Tobacco Use Types Packs/Day Years [...] retention and prostate cancer. He went to [place] and is doing well. Sometimes caths up [...] prostate documented in this encounter Care Teams Rocket Motor Mechanic Relationship Specialty Start Date End Date Ramses Cleary MD PCP - General Family Practice 10/21/11 documented as of this encounter
--- OUTSIDE RECORDS SUMMARY | 2022-04-08 12:17 | XMS_ITS | Encounter Summary ---
:1935 Author Organization [facility] Address [address], [place] [address] Care Team Providers Name Role Phone Ramses Cleary MD Primary Care Provider Unavailable Reason for Visit Reason Comments WRIST PAIN lt wrist bruised and painful for 5 days no injury Encounter Details Date Type Department Care Team Description 05/09/2014 Office Visit [facility] Ramses Cleary (Primary [facility] MD Umberto Dx) Practice [address] [place] [address] [place], [place] [phone] Social History Tobacco Use Types Packs/Day Years [...] Comments Blood Pressure 120/70 05/09/2014 3:48 PM INDUSTRIAL TRUCK DRIVER Pulse 66 05/09/2014 3:48 PM INDUSTRIAL TRUCK DRIVER Temperature 36.5 ??C (97.7 ??F) 05/09/2014 3:48 PM INDUSTRIAL TRUCK DRIVER Respiratory Rate 18 05/09/2014 3:48 PM INDUSTRIAL TRUCK DRIVER Oxygen Saturation 96% 05/09/2014 3:48 PM INDUSTRIAL TRUCK DRIVER Inhaled Oxygen Concentration - - Weight 108.9 kg (240 lb) 05/09/2014 3:48 PM INDUSTRIAL TRUCK DRIVER Height 175.3 cm (5' 9) 05/09/2014 3:48 PM INDUSTRIAL TRUCK DRIVER Body Mass Index 35.44 05/09/2014 3:48 PM INDUSTRIAL TRUCK DRIVER documented in this encounter Progress Notes Ramses [...] the next 2 weeks. Ramses Cleary MD STRIAL TRUCK DRIVER documented in this encounter Plan of Treatment Not on filedocumented as of this encounter Visit Diagnoses Diagnosis Contusion - Primary Contusion of unspecified site documented in this encounter Care Teams Educational Coordinator Relationship Specialty Start Date End Date Ramses Cleary MD PCP - General Family Practice 10/21/11 documented as of this encounter
--- OUTSIDE RECORDS SUMMARY | 2022-04-08 12:17 | XMS_ITS | Encounter Summary ---
:1935 Author Organization [facility] Address [address] [address] Care Team Providers Name Role Phone Ramses Cleary MD Primary Care Provider Unavailable Reason for Visit Procedure/Equipment (Routine) - Incomplete Specialty Diagnoses / Procedures Referred By Contact Refer red To Contact Diagnoses Pneumonia Tan Caldwell MD Procedures XR CHEST PA/AP AND LAT 2 VIEWS * [address] [place] [address] Referral ID Status Reason Start Date Expiration Date Visits V isits Requested Authorized [id number] Incomplete 02/09/2014 1 1 Encounter Details Date Type Department Care Team Description 02/09/2014 Imaging [facility] [place] [facility] Pneumonia [address] [place] [address] [id number] Social History Tobacco Use Types Packs/Day Years [...] unspecified documented in this encounter Care Teams Beck Operator Relationship Specialty Start Date End Date Ramses Cleary MD PCP - General Family Practice 10/21/11 documented as of this encounter
--- OUTSIDE RECORDS SUMMARY | 2022-04-08 12:17 | XMS_ITS | Encounter Summary ---
:1935 Author Organization [facility] Address [address] [address] Care Team Providers Name Role Phone Ramses Cleary MD Primary Care Provider Unavailable Encounter Details Date Type Department Care Team Description 08/04/2013 Hospital Encounter LV Operating Room Mingo Santana, [address] [place] [address] [phone] [place] [address] (Wo rk) Social History Tobacco Use Types [...] Comments Blood Pressure 132/65 08/04/2013 10:20 AM VP PUBLISHER DEVELOPMENT Pulse 64 08/04/2013 10:20 AM VP PUBLISHER DEVELOPMENT Temperature 36.6 ??C (97.8 ??F) 08/04/2013 10:20 AM VP PUBLISHER DEVELOPMENT Respiratory Rate 16 08/04/2013 10:20 AM VP PUBLISHER DEVELOPMENT Oxygen Saturation 94% 08/04/2013 10:20 AM VP PUBLISHER DEVELOPMENT Inhaled Oxygen Concentration - - Weight 104.3 kg (230 lb) 08/01/2013 1:48 PM VP PUBLISHER DEVELOPMENT Height 175.3 cm (5' 9) 08/01/2013 1:48 PM VP PUBLISHER DEVELOPMENT Body Mass Index 33.97 08/01/2013 1:48 PM VP PUBLISHER DEVELOPMENT documented in this encounter Discharge Instructions Discharge InstructionsAnusha Bishop RN - 08/04/2013 10:01 AM CST Contact Information [address] [address] Main or [phone] Same Day Surgery, M-F 7am to 5pm: [phone] Clinic Phone Numbers [facility] [phone] Emergency & Urgently Needed Care: For emergencies call 911 and/or get medical help right away. If you are a [facility] member and have medical needs after clinic hours you may call the [facility] [phone] or . Special Instruction: : Rest today [...] Hospital Center to your family and friends. PUBLISHER DEVELOPMENT documented in this encounter Medications at Time of Discharge Medication Sig Dispensed Refills Start Date End Date dorzolamide (AKA [The details of the 0 TRUSOPT) 2 % eye drop medication are not solutionIndications: available because Increased Intraocular there are pending Pressure changes by a home health clinician.] fluticasone (AKA Place 1 [place] into 0 08/03/2013 FLONASE) 50 MCG/ACT both [...] Kenny MD --- End of Report --- PUBLISHER DEVELOPMENT Asif Kenny MD - 08/04/2013 7:19 AM [...] Route Frequency ??? bacitracin-polymyxin b (aka POLYSPORIN) 500-21942 UNIT/GM ointment Intra-Op ??? fentaNYL (aka SUBLIMAZE) injection 50-100 mcg 50-100 mcg IV ONCE PRN ??? lactated ringers infusion 1,000 mL 1,000 mL IV Continuous ??? lidocaine (aka XYLOCAINE) 1 % injection 0.1-1 mL 0.1-1 mL Injection Once ??? lidocaine-epinephrine 1-1:747932 % injection Intra-Op ??? midazolam (aka VERSED) [...] benefits, alternatives and side effects with patient/responsible libertarian. All questions answered. Asif Kenny MD PUBLISHER DEVELOPMENT documented in this encounter Procedure Notes Mingo [...] Santana MD --- End of Report --- PUBLISHER DEVELOPMENT Mingo Santana MD - 08/04/2013 12:00 AM [...] Dictated: 08/04/2013 10:48:45 Transcribed: 08/04/2013 14:24:34 Job: [id number] Doc: [id number] cc: PUBLISHER DEVELOPMENT [facility], Provider - 08/04/2013 12:00 AM CST PUBLISHER DEVELOPMENT [facility], Provider - 08/04/2013 12:00 AM CSTAssociated Order(s): EKG IP PUBLISHER DEVELOPMENT documented in this encounter OR Notes &P - [facility], Provider - 08/04/2013 12:00 AM CST PUBLISHER DEVELOPMENT documented in this encounter Miscellaneous Notes [facility], Provider - 08/04/2013 12:00 AM CST PUBLISHER DEVELOPMENT [facility], Provider - 08/04/2013 12:00 AM CST PUBLISHER DEVELOPMENT documented in this encounter Plan of Treatment Not on filedocumented as of this encounter Procedures Procedure Name Priority Date/Time Associated Comments Diagnosis EXCISION SOFT Same Day Surgery 08/04/2013 8:26 Facial lesion TISSUE LESION(S) AM VP PUBLISHER DEVELOPMENT FACE SKIN GRAFT FULL Same Day Surgery 08/04/2013 8:26 Facial lesion THICKNESS SKIN AM VP PUBLISHER DEVELOPMENT SURGICAL PATH Routine 08/04/2013 6:00 Results for this AM VP PUBLISHER DEVELOPMENT procedure are i n the results section. EKG IP 08/04/2013 12:00 Results for this AM VP PUBLISHER DEVELOPMENT procedure are i n the results section. documented in this encounter Results SURGICAL PATH (08/04/2013 6:00 AM VP PUBLISHER DEVELOPMENT) [facility] gist Method Time Signature Histology (NOTE) [...] ??Cassette gonzales 1. ??Frozen section remnant -- employer relations representative central cross sections 2. ??Anterior tip 3. ??Anterior half 4. ??Posterior half 5. 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 ??(, This test was performed at [facility], [address] [place] [address], [id number].) Microscopic Description Microscopic examination is performed on seven slides. ?? snp08/05/2013 Kee Becerra MD [facility] Department of Pathology [address] [place], [place] ??[address] Specimen Anatomical Collection Method Collection Time Receive d Time (Source) Location / / Volume Laterality EXCISION OF SKIN / 08/04/2013 6:00 AM Unknown VP PUBLISHER DEVELOPMENT 12:19 PM VP PUBLISHER DEVELOPMENT Mingo Santana MD LAB_1 Performing Organization Address City/State/ZIP Code Phon e Number [address] [address] EKG IP (08/04/2013 12:00 AM VP PUBLISHER DEVELOPMENT) Specimen (Source) Anatomical Location Collection Method / [...] bacitracin-polymyxin b (aka Given 08/04/2013 9:15 AM VP PUBLISHER DEVELOPMENT POLYSPORIN) 500-73822 UNIT/GM ointment INTRA-OP, Starting on Ana 08/04/13 at 0640, For 1 dose, Verify Route and Dose with Surgeon Prior to Administration lidocaine-epinephrine 1-1:995259 % injec tion Given 08/04/2013 9:15 AM VP PUBLISHER DEVELOPMENT 1 mL INTRA-OP, Starting on Ana 08/04/13 at 0640, For 1 dose, Verify Route and Dose with Surgeon Prior to Administration documented in this encounter Active and Recently Administered Medications Times are shown in VP PUBLISHER DEVELOPMENT. Scheduled Medication Order 08/02/2013 08/03/2013 08/04/2013 bacitracin-polymyxin b (aka POLYSPORIN) 500-30155 UNIT/GM ointme nt (CANCELED) 0915 (Given - Provider: Katharina Dunbar RN) INTRA-OP, 1 dose, Starting Ana 08/04/13 at 0640, Until Discontinu ed lidocaine-epinephrine 1-1:120285 % injection (CANCELED) 0915 (Given - Provider: Katharina Dunbar RN) INTRA-OP, 1 dose, Starting Ana 08/04/13 at 0640, Until Discontinu ed documented in this encounter Care Teams Settlement Clerk Relationship Specialty Start Date End Date Ramses Cleary MD PCP - General Family Practice 10/21/11 documented as of this encounter
--- OUTSIDE RECORDS SUMMARY | 2022-04-08 12:17 | XMS_ITS | Encounter Summary ---
:1935 Author Organization [facility] Address [address] [address] Care Team Providers Name Role Phone Ramses Cleary MD Primary Care Provider Unavailable Reason for Visit Reason Comments Follow-up, NOS left ear Encounter Details Date Type Department Care Team Description 09/27/2013 Office Visit [facility] Mingo Santana cancer (Primary [place] Otolaryng bong Salinas MD Dx) [address] [place] [address] [phone] [place], [place] [id number] Social History Tobacco Use Types Packs/Day Years [...] Dictated: 09/27/2013 16:29:52 Transcribed: 09/29/2013 10:20:09 Job: [id number] Doc: [id number] cc: documented in this encounter Plan of Treatment Not on filedocumented as of this encounter Visit Diagnoses Diagnosis Skin cancer - Primary Unspecified malignant neoplasm of skin, site unspecified documented in this encounter Care Teams Movie Operator Relationship Specialty Start Date End Date Ramses Cleary MD PCP - General Family Practice 10/21/11 documented as of this encounter
--- OUTSIDE RECORDS SUMMARY | 2022-04-08 12:18 | XMS_ITS | Encounter Summary ---
:1935 Author Organization [facility] Address [address], [place] [address] Care Team Providers Name Role Phone Ramses Cleary MD Primary Care Provider Unavailable Encounter Details Date Type Department Care Team Description 06/20/2013 Orders Only [facility] skin lesion Laboratory [address] [place] [phone] Social History Tobacco Use Types Packs/Day Years [...] A Cordero MD - 06/22/2013 2:22 PM BUILD MANAGER Quick Note: Pt noptifiesd. Dr Santana for consullt D MANAGER documented in this encounter Plan of Treatment Not on filedocumented as of this encounter Procedures Procedure Name Priority Date/Time Associated Diagnosis Comme nts SURGICAL PATH Routine 06/20/2013 6:00 AM Changing skin lesion Results for this BUILD MANAGER procedure are i n the results section . documented in this encounter Results SURGICAL PATH (06/20/2013 6:00 AM BUILD MANAGER) [facility] Method Time Signature Histology (NOTE) [facility] Final Report [facility] Patient Name: ZAID RUTLEDGE Taken: 06/20/2013 Received: 06/20/2013 Reported: 06/21/2013 Physician(s): LUIS A CORDERO ([id number]) ? Final Pathologic Diagnosis Skin, left ear, [...] two slides. ?? snp/06/21/2013 Kee Becerra MD [facility] Department of Pathology [address] [place] [address] ??[id number] Specimen Anatomical Collection Method Collection Time Receive d Time (Source) Location / / Volume Laterality EXCISION OF SKIN / 06/20/2013 6:00 AM 11/2013 5:43 Unknown BUILD MANAGER PM BUILD MANAGER Luis A Cordero MD LAB_1 Performing Organization Address City/State/ZIP Code Phon e Number [phone] [phone] documented in this encounter Visit Diagnoses Diagnosis Changing skin lesion Unspecified disorder of skin and subcuta neous tissue documented in this encounter Care Teams Yard Motor Operator Relationship Specialty Start Date End Date Ramses Cleary MD PCP - General Family Practice 10/21/11 documented as of this encounter
--- OUTSIDE RECORDS SUMMARY | 2022-04-08 12:18 | XMS_ITS | Encounter Summary ---
:1935 Author Organization [facility] Address [address], [place] [address] Care Team Providers Name Role Phone Ramses Cleary MD Primary Care Provider Unavailable Reason for Visit Reason Comments COUGH cough with phlegm for severa l weeks RASH under arms and groin area Encounter Details Date Type Department Care Team Description 04/01/2013 Office Visit [facility] Ramses Cleary for zoster vaccination (Primary Dx); Beatriz Shipman MD COPD (chronic obstructive pulmonary dise ase); Practice [address] Fungal dermatitis [address] [place] [address] [place] [phone] Social History Tobacco Use Types Packs/Day Years [...] unspecified documented in this encounter Care Teams Health Science Specialist Relationship Specialty Start Date End Date Ramses Cleary MD PCP - General Family Practice 10/21/11 documented as of this encounter
--- OUTSIDE RECORDS SUMMARY | 2022-04-08 12:18 | XMS_ITS | Encounter Summary ---
:1935 Author Organization [facility] Address [address] [address] Care Team Providers Name Role Phone Ramses Cleary MD Primary Care Provider Unavailable Encounter Details Date Type Department Care Team Description 06/20/2013 Telephone [facility] Waqas Newton MD Urology [address] [place] [address] [place] [address] [phone] Social History Tobacco Use Types Packs/Day Years [...] appointment. Sindy Pack LPN 06/20/2013, 10:33 AM TRICAL ENGINEERING DRAFTSPERSON documented in this encounter Plan of Treatment Not on filedocumented as of this encounter Visit Diagnoses Not on filedocumented in this encounter Care Teams Skid Man Relationship Specialty Start Date End Date Ramses Cleary MD PCP - General Family Practice 10/21/11 documented as of this encounter
--- OUTSIDE RECORDS SUMMARY | 2022-04-08 12:18 | XMS_ITS | Encounter Summary ---
:1935 Author Organization [facility] Address [address], [place] [address] Care Team Providers Name Role Phone Ramses Cleary MD Primary Care Provider Unavailable Reason for Referral Procedure/Equipment (Routine) - Closed Specialty Diagnoses / Procedures Referred By Contact Refer red To Contact General Surgery Procedures Mingo Santana MD Lv Same Day Surgery Case Request OR - ENT [address] [place] [address] Surgery: --[address]-- [place] [address] [place] [address] EXCISION OF LESION FACE Phone: Referral ID Status Reason Start Date Expiration Date Visits Requ ested Visits Authorized [id number] Closed 06/23/2013 09/22/2014 1 1 TRONICS ASSEMBLER Encounter Details Date Type Department Care Team Description 06/23/2013 Office Visit [facility] Mingo Santana cancer (Primary [place] Otolaryng ologjoel Salinas MD Dx) [address] [place], [place] [address] [phone] [place] [address] Social History Tobacco Use Types Packs/Day Years [...] Mingo Santana MD - 06/23/2013 3:33 PM ELECTRONICS ASSEMBLER Addended by: MINGO SANTANA on: 06/23/2013 03:33 PM Modules accepted: Orders TRONICS ASSEMBLER Mingo Santana MD - 06/23/2013 3:23 PM CST This office note has been dictated. TRONICS ASSEMBLER Mingo Santana MD - 06/23/2013 12:00 AM [...] and allergies were again reviewed and notedon Psychiatric. HABITS: Nonsmoker. REVIEW OF SYSTEMS: Cardiovascular and respiratory: Both negative. He does not have a history of easybruising or bleeding. He is not on anticoagulants. Please note he is traveling to [place] in two weeks. PHYSICAL EXAMINATION: General: On [...] in the hospital setting. Mingo Santana MD BFD:angelia Dictated: 06/23/2013 15:25:18 Transcribed: 06/27/2013 07:20:34 Job: [id number] Doc: [id number] cc: TRONICS ASSEMBLER documented in this encounter Plan of Treatment Not on filedocumented as of this encounter Visit Diagnoses Diagnosis Skin cancer - Primary Unspecified malignant neoplasm of skin, site unspecified documented in this encounter Care Teams Powder Guard Relationship Specialty Start Date End Date Ramses Cleary MD PCP - General Family Practice 10/21/11 documented as of this encounter
--- OUTSIDE RECORDS SUMMARY | 2022-04-08 12:18 | XMS_ITS | Encounter Summary ---
:1935 Author Organization [facility] Address [address], [place] [address] Care Team Providers Name Role Phone Ramses Cleary MD Primary Care Provider Unavailable Reason for Visit Reason Comments Hearing Aid Encounter Details Date Type Department Care Team Description 01/31/2013 Office Visit [facility] Vandana Summers hearing loss, [facility]HA[facility] (Primary Hearing Center Dx) [address] [place] [address] Social History Tobacco Use Types Packs/Day [...] AU.D. - 01/31/2013 4:37 PM CDT The Business Development Intern performs an Otoscopic examination of both ear [...] Primary documented in this encounter Care Teams Correctional Officer Relationship Specialty Start Date End Date Ramses Cleary MD PCP - General Family Practice 10/21/11 documented as of this encounter
--- OUTSIDE RECORDS SUMMARY | 2022-04-08 12:18 | XMS_ITS | Encounter Summary ---
:1935 [facility] Address [address] [address] Care Team Providers Name Role Phone Ramses Cleary MD Primary Care Provider Unavailable Reason for Visit Reason Comments COUGH CONGESTION Encounter Details Date Type Department Care Team Description 01/26/2013 [facility] Ramses Cleary Chr onic bronchitis Beatriz Shipman MD (Primary Dx) Practice [address] [place] [address] [place], [place] [phone] Social History Tobacco Use Types Packs/Day Years [...] documented in this encounter Progress Notes Ramses lCeary MD - 01/27/2013 8:05 AM CDT Zaid [...] bronchitis documented in this encounter Care Teams Communications Agent Relationship Specialty Start Date End Date Ramses Cleary MD PCP - General Family Practice 10/21/11 documented as of this encounter
--- OUTSIDE RECORDS SUMMARY | 2022-04-08 12:18 | XMS_ITS | Encounter Summary ---
:1935 Author Organization [employer] Address [address] [address] Care Team Providers Name Role Phone Ramses Cleary MD Primary Care Provider Unavailable Reason for Visit Reason Comments PROSTATE EXAM(ROUTINE/YEARLY) Encounter Details Date Type Department Care Team Description 12/31/2012 Office Visit [facility] Waqas Rodney (Primary Dx) Group Urology MD Gladis [address] [place] [address] [place], [place] [address] [address] [place], [place] [phone] [address] Social History Tobacco Use Types Packs/Day Years [...] Primary documented in this encounter Care Teams Regional Manager Relationship Specialty Start Date End Date Ramses Cleary MD PCP - General Family Practice 10/21/11 documented as of this encounter
--- OUTSIDE RECORDS SUMMARY | 2022-04-08 12:18 | XMS_ITS | Encounter Summary ---
:1935 Author Organization [facility] Address [address], [place] [address] Care Team Providers Name Role Phone Ramses Cleary MD Primary Care Provider Unavailable Reason for Visit Reason Onset Date Comments Refill 05/31/2013 OMEPRAZOLE Encounter Details Date Type Department Care Team Description 05/31/2013 Telephone [facility] Ramses Cleary, Refill (OMEPRAZOLE) [facility] Pr anjelica [address]URRAY [address] [place] [address] [address] [phone] [place] [address] Social History Tobacco Use Types Packs/Day Years [...] Order. Sera Arora RN 06/07/2013, 8:13 AM FOLIO MGR Javan Hamlin - 06/06/2013 3:38 PM CST Pharm is calling to check the status of refill. Javan Hamlin 06/06/2013, 3:39 PM FOLIO MGR Shea Johnson - 05/31/2013 11:22 AM CST Last Refilled: 02/28/13 PHARMACY FAXING 2ND REQUEST OMEPRAZOLE 20 MG CAPSULES #180 TAKE ONE CAP BY MOUTH TWICE DAILY 1 HOUR BEFORE A MEAL SHEA JOHNSON 05/31/2013 11:22 AM FOLIO MGR documented in this encounter Plan of Treatment Not on filedocumented as of this encounter Visit Diagnoses Not on filedocumented in this encounter Care Teams Respiratory Care Program Director Relationship Specialty Start Date End Date Ramses Cleary MD PCP - General Family Practice 10/21/11 documented as of this encounter
--- OUTSIDE RECORDS SUMMARY | 2022-04-08 12:18 | XMS_ITS | Encounter Summary ---
:1935 Author Organization [facility] Address [address], [place] [address] Care Team Providers Name Role Phone Ramses Cleary MD Primary Care Provider Unavailable Encounter Details Date Type Department Care Team Description 12/22/2012 Orders Only [facility] Prostate cancer Laboratory [address] [place] [address] Social History Tobacco Use Types Packs/Day [...] Progress Notes Helene Ocampo APRN, CNP - 12/23/2012 10:55 AM CDT Quick Note: [...] Prostatic Spec 4.9 (H) 0.0 - 4.0 [place] Ag ng/mL HOSPITAL LAB Specimen Anatomical Collection Method Collection Time Receive d Time (Source) Location / / Volume Laterality 12/22/2012 1:25 PM 3 5:00 CDT PM CDT Waqas oRdney MD LAB_1 Performing Organization Address City/State/ZIP Code Phon e Number [facility] [address] [place] [address] documented in this encounter Visit Diagnoses Diagnosis Prostate cancer ([facility]) Malignant neoplasm of prostate documented in this encounter Care Teams Continuous Loft Operator Relationship Specialty Start Date End Date Ramses Cleary MD PCP - General Family Practice 10/21/11 documented as of this encounter
--- OUTSIDE RECORDS SUMMARY | 2022-04-08 12:18 | XMS_ITS | Encounter Summary ---
:1935 Author Organization [facility] Address [address] [place] [address] Care Team Providers Name Role Phone Ramses Cleary MD Primary Care Provider Unavailable Encounter Details Date Type Department Care Team Description 06/20/2013 Orders Only [facility] BPH (b enign prostatic [facility] hypertrophy) (Primary [address] [place] [place]) [place] [address] Social History Tobacco Use Types Packs/Day [...] this encounter Progress Notes Helene Ocampo APRN, SUPERVISOR CABINETMAKER - 06/22/2013 10:46 AM SOCIAL WORK FACULTY MEMBER Quick Note: Patient has upcoming appt. Helene Ocampo RN 06/22/2013, 10:46 AM AL WORK FACULTY MEMBER documented in this encounter Plan of Treatment Not on filedocumented as of this encounter Procedures Procedure Name Priority Date/Time Associated Diagnosis Comme nts PROSTATIC SPECIFIC Routine 06/20/2013 3:55 PM BPH (benign Res ults for this ANTIGEN (DIAGNOSTIC SOCIAL WORK FACULTY MEMBER prostatic procedur e are in F/U) hypertrophy) the results section. documented in this encounter Results PROSTATIC SPECIFIC ANTIGEN (F/U) (06/20/2013 3:55 PM SOCIAL WORK FACULTY MEMBER) athologist Signature Prostatic Spec 3.95 0.00 - [facility] Ag 4.00 ng/ml HOSPITAL Specimen Anatomical Collection Method Collection Time Receive d Time (Source) Location / / Volume Laterality 06/20/2013 3:55 PM 4 4:00 SOCIAL WORK FACULTY MEMBER PM SOCIAL WORK FACULTY MEMBER Narrative [facility] - 06/20/2013 6:48 PM CS T Performed at [facility], [address] [place] [address] Waqas Rodney MD LAB_1 Performing Organization Address City/State/ZIP Code Phon e Number [address] [address] documented in this encounter Visit Diagnoses Diagnosis BPH (benign prostatic hypertrophy) - Faviola felecia Hypertrophy of prostate without urinary obstruction and other lower urinary tract symptoms (LUTS) documented in this encounter Care Teams Calender Runner Relationship Specialty Start Date End Date Ramses Cleary MD PCP - General Family Practice 10/21/11 documented as of this encounter
--- OUTSIDE RECORDS SUMMARY | 2022-04-08 12:18 | XMS_ITS | Encounter Summary ---
:1935 Author Organization [facility] Address [address] [address] Care Team Providers Name Role Phone Ramses Cleary MD Primary Care Provider Unavailable Reason for Visit Procedure/Equipment (Routine) - Closed Specialty Diagnoses / Procedures Referred By Contact Refer red To Contact Radiology [place] Procedures Maddy Blanton Radiology CT CHEST WITH CONTRAST JESSA Griffith, MED SPA MANAGER [address] [place] [address] [place] [address] Phone: Referral ID Status Reason Start Date Expiration Date Visits Requ ested Visits Authorized [id number] Closed 07/22/2013 1 1 Encounter Details Date Type Department Care Team Description 07/22/2013 Imaging [facility] Radiology Maddy Blanton, CT COVER OPERATOR, MED SPA MANAGER [address] [place] [address] [place] [address] Social History Tobacco Use Types [...] 07/22/2013 5:10 PM Res ults for this PHOTOGRAMMETRIC COMPILATION SPECIALIST procedure are i n the results section. CREATININE / GFR Routine 07/22/2013 4:02 PM Resul ts for this PHOTOGRAMMETRIC COMPILATION SPECIALIST procedure are i n the results section. documented in this encounter Results CT CHEST WITH CONTRAST (07/22/2013 5:10 PM PHOTOGRAMMETRIC COMPILATION SPECIALIST) Anatomical Region Laterality Modality Chest, Lung Computed Tomography Specimen (Source) Anatomical Collection Method Collection Time Re ceived Time Location / / Volume Laterality 07/22/2013 7:13 PM PHOTOGRAMMETRIC COMPILATION SPECIALIST Narrative 07/22/2013 7:17 [address]RIC COMPILATION SPECIALIST CT CHEST W CONT 07/22/2013 5:10 PM [...] (ABNORMAL) CREATININE / GFR (07/22/2013 4:02 PM PHOTOGRAMMETRIC COMPILATION SPECIALIST) Analysis Performed At Patho logist Time Signature Creatinine 1.22 0.66 - [facility] 1.25 mg/dl [facility] GFR, Estimated 57.5 (L) >60 [facility] ml/min/1.7 [facility]ITAL 3m2 GFR, Est., If >60.0 >60 [facility] Black ml/min/1.7 [facility] 3m2 Specimen Anatomical Collection Method Collection Time Receive d Time (Source) Location / / Volume Laterality 07/22/2013 4:02 PM 4 4:04 PHOTOGRAMMETRIC COMPILATION SPECIALIST PM PHOTOGRAMMETRIC COMPILATION SPECIALIST Narrative [facility] - 07/22/2013 4:59 PM CS T Performed at [facility], [address] [place] [address] Maddy Blanton APRN, CNP LAB_1 Performing Organization Address City/State/ZIP Code Phon e Number [address] [address] documented in this encounter Visit Diagnoses Not on filedocumented in this encounter Care Teams Surgical Appliances Salesperson Relationship Specialty Start Date End Date Ramses Cleary MD PCP - General Family Practice 10/21/11 documented as of this encounter
--- OUTSIDE RECORDS SUMMARY | 2022-04-08 12:18 | XMS_ITS | Encounter Summary ---
:1935 Author Organization [facility] Address [address] [place] [address] Care Team Providers Name Role Phone Ramses Cleary MD Primary Care Provider Unavailable Reason for Visit Procedure/Equipment (Routine) - Closed Specialty Diagnoses / Procedures Referred By Contact Refer red To Contact Radiology [place] Diagnoses Chronic bronchitis (HRC) Charley Rios, Cc Radiology Procedures XR CHEST PA/AP AND LAT 2 VIEWS * HUMAN RESOURCES BENEFITS ASSISTANT, PULLER THROUGH [address] [place] [address] [place] [address] Phone: [phone] Fax: Referral ID Status Reason Start Date Expiration Date Visits Requ ested Visits Authorized [id number] Closed 05/25/2013 1 1 Encounter Details Date Type Department Care Team Description 05/25/2013 Imaging [facility] Chroni c bronchitis [place] [facility] (Primary Dx) [address] [place], [place] [phone] Social History Tobacco Use Types Packs/Day Years [...] Rios APRN, CNP - 05/27/2013 9:48 AM REGIONAL LOSS PREVENTION MANAGER Quick Note: See telephone enc. KASSANDRA Rankin 05/27/2013, 9:48 AM ONAL LOSS PREVENTION MANAGER documented in this encounter Plan of Treatment Not on filedocumented as of this encounter Procedures Procedure Name Priority Date/Time Associated Diagnosis Comme nts XR CHEST 2 VIEWS STAT 05/25/2013 11:41 AM Chronic bronchiti s Results for this REGIONAL LOSS PREVENTION MANAGER procedure are i n the results section. documented in this encounter Results XR CHEST PA/AP AND LAT 2 VIEWS * (05/25/2013 11:41 AM REGIONAL LOSS PREVENTION MANAGER) Anatomical Region Laterality Modality Chest, Lung Computed Radiography Specimen (Source) Anatomical Collection Method Collection Time Re ceived Time Location / / Volume Laterality 05/25/2013 12:17 PM REGIONAL LOSS PREVENTION MANAGER Narrative 05/25/2013 12:19 PM REGIONAL LOSS PREVENTION MANAGER XR CHEST AP/PA AND LAT 2VWS 05/25/2013 [...] pneumothora x or pleural effusion. Charley Rios HUMAN RESOURCES BENEFITS ASSISTANT, PULLER THROUGH RAD GD documented in this encounter Visit Diagnoses Diagnosis Chronic bronchitis (HRC) - Primary Unspecified chronic bronchitis documented in this encounter Care Teams Cement Mixer Driver Relationship Specialty Start Date End Date Ramses Cleary MD PCP - General Family Practice 10/21/11 documented as of this encounter
--- OUTSIDE RECORDS SUMMARY | 2022-04-08 12:18 | XMS_ITS | Encounter Summary ---
:1935 Author Organization [facility] Address [address] [address] Care Team Providers Name Role Phone Ramses Cleary MD Primary Care Provider Unavailable Reason for Visit Reason Onset Date Comments RESULTS, X-RAY 05/27/2013 Encounter Details Date Type Department Care Team Description 05/27/2013 Telephone [facility] Charley Rios, RESULTS, X-RAY [facility] Pr actice OPERATIONS TECH, FILLING MACHINE TENDER [address] [place] [address] [place] [address] [phone] (Wo rk) Social History Tobacco Use Types [...] of this encounter Nursing Notes Renee Stockton 05/27/2013 9:57 AM CST I called and informed patient of xray results below. Renee Hernandez Mahin 05/27/2013, 9:57 AM R TRANSMISSION ENGINEER Charley Rios APRN, CNP - 05/27/2013 9:44 AM CST Results may take up to 10 days to result. I am happy to inform him he has no pneumonia or noticeablyconcerning findings on the xray. Lungs are a bit hyperinflated and may review further with Pulmonology as we discussed in the clinic for termite inspector care management/suggestions. Would rec continued treatment for possible bacterial infection based on his symptoms and past history with antibiotic that I already prescribed. KASSANDRA Rankin 05/27/2013, 9:47 AM R TRANSMISSION ENGINEER Renee Stockton I - 05/27/2013 9:18 AM CST Please comment on x-ray. Renee Stockton 05/27/2013, 9:18 AM R TRANSMISSION ENGINEER Lyla Patel - 05/27/2013 9:13 AM CST Reason for call? Pt states he never got his xray results. He would like a call to discuss. Best time to reach you? Anytime Ok to leave a detailed message? Yes Lyla Patel ....................................05/27/2013 9:13 AM R TRANSMISSION ENGINEER documented in this encounter Plan of Treatment Not on filedocumented as of this encounter Visit Diagnoses Not on filedocumented in this encounter Care Teams Mammography Tech Relationship Specialty Start Date End Date Ramses Cleary MD PCP - General Family Practice 10/21/11 documented as of this encounter
--- OUTSIDE RECORDS SUMMARY | 2022-04-08 12:18 | XMS_ITS | Encounter Summary ---
:1935 Author Organization [employer] Address [address], [place] [address] Care Team Providers Name Role Phone No Primary/Referring, Phy Primary Care Provider Unavailable Encounter Details Date Type Department Care Team Description 07/22/2013 Consent for [facility] CONSENT FOR Procedure/[address] Provider [place], [place] [phone] Social History Tobacco Use Types Packs/Day Years [...] documented as of this encounter Progress Notes [facility], Provider - 07/22/2013 12:00 AM CST Y QUALITY ASSURANCE OFFICER documented in this encounter Plan of Treatment Not on filedocumented as of this encounter Visit Diagnoses Not on filedocumented in this encounter Care Teams Telecommunications Linesworker Relationship Specialty Start Date End Date No Primary/Referring, Phy PCP - General 12/11/21 documented as of this encounter
--- OUTSIDE RECORDS SUMMARY | 2022-04-08 12:18 | XMS_ITS | Encounter Summary ---
:1935 Author Organization [facility] Address [address] [address] Care Team Providers Name Role Phone Ramses Cleary MD Primary Care Provider Unavailable Reason for Visit Reason Onset Date Comments Refill 05/24/2013 allopurinol (AKA ZYL OPRIM) 100 MG tablet Encounter Details Date Type Department Care Team Description 05/24/[address] [facility] Donnell Oliva, Ref ill (allopurinol (AKA Group [employer] Family DO ZYLOPRIM) 100 MG tablet) Practice [address] [place], [place] [phone] Social History Tobacco Use Types Packs/Day Years [...] for patient to make annual exam appointment. CTOR EMPLOYMENT Madison Abraham - 05/24/2013 10:43 AM CST allopurinol (AKA ZYLOPRIM) 100 MG tablet Take 1 Tab by mouth daily #90 x 3 Last Filled 02/24/2013 Madison Cespedes CMA 05/24/201310:44 AM CTOR EMPLOYMENT documented in this encounter Plan of Treatment Not on filedocumented as of this encounter Visit Diagnoses Not on filedocumented in this encounter Care Teams Cleat Feeder Relationship Specialty Start Date End Date Ramses Cleary MD PCP - General Family Practice 10/21/11 documented as of this encounter
--- OUTSIDE RECORDS SUMMARY | 2022-04-08 12:18 | XMS_ITS | Encounter Summary ---
:1935 Author Organization [employer] Address [address] [address] Care Team Providers Name Role Phone Ramses Cleary MD Primary Care Provider Unavailable Reason for Referral Consult/Transfer Care (Routine) - Closed Specialty Diagnoses / Procedures Referred By Contact Refer red To Contact Pulmonary Diagnoses Chronic bronchitis (HRC) Asthma with acute exacerbation (HRC) Charley Rios Cc Pulmonary MARTI GERMAIN [address] [place] [address] [place] [address] Referral ID Status Reason Start Date Expiration Date Visits Requ ested Visits Authorized [id number] Closed 05/25/2013 1 1 Scheduling Instructions Your provider has recommended an appoint ment with a [facility] Specialist. You may call [phone] to schedule your appointment. IAL ORDER JEWELER Procedure/Equipment (Routine) - Closed Specialty Diagnoses / Procedures Referred By Contact Refer red To Contact Radiology [place] Diagnoses Chronic bronchitis (HRC) Charley Rios Cc Radiology Procedures XR CHEST PA/AP AND LAT 2 VIEWS * MARTI GERMAIN [address] [place] [address] [place] [address] Phone: [phone] Fax: Referral ID Status Reason Start Date Expiration Date Visits Requ ested Visits Authorized [id number] Closed 05/25/2013 1 1 IAL ORDER JEWELER Reason for Visit Reason Comments COUGH Encounter Details Date Type Department Care Team Description 05/25/2013 Office Visit [facility] Charley Rios Ch ronic bronchitis (Primary Dx); Beatriz Sharif APRN, CNP Asthma with acute exacerbation Practice [address] [place] [address] [phone] Social History Tobacco Use Types Packs/Day Years [...] Comments Blood Pressure 110/70 05/25/2013 10:38 AM SPECIAL ORDER JEWELER Pulse 68 05/25/2013 10:38 AM SPECIAL ORDER JEWELER Temperature 36.6 ??C (97.8 ??F) 05/25/2013 10:38 AM SPECIAL ORDER JEWELER Respiratory Rate 16 05/25/2013 10:38 AM SPECIAL ORDER JEWELER Oxygen Saturation 98% 05/25/2013 10:38 AM SPECIAL ORDER JEWELER Inhaled Oxygen Concentration - - Weight 105.7 kg (233 lb) 05/25/2013 10:38 AM SPECIAL ORDER JEWELER Height - - Body Mass Index 34.41 04/01/2013 10:04 AM CDT documented in this encounter Patient Instructions Patient InstructionsCharley Rios APRN, CNP - 05/25/2013 11:03 AM SPECIAL ORDER JEWELER Use albuterol inhaler 3-4 times per day for the next several days until feeling better. Take prednisone as prescribed as well as antibiotic. Will contact you with chest xray results. Schedule pulmonology consult appt. KASSANDRA Rankin 05/25/2013, 11:04 AM IAL ORDER JEWELER documented in this encounter Progress Notes Charley Rios APRN, CNP - 05/25/2013 11:41 AM CST SMelany Mar is a pleasant 78-year-old male patient that [...] Flovent twice a day. He sees an engineering documentation specialist Dr. 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 Timber Spotter. Moving to [place] in . A comprehensive 6 point review [...] of the plan of care. Charley Rios, CORRECTIONAL MAINTENANCE TECHNICIAN-F 05/25/2013, 11:42 AM Patient was offered Health Maintenance services, but declined the following Advance Directives. This note was created using voice recognition software. Word substitutions may be present and are unintended. IAL ORDER JEWELER documented in this encounter Plan of Treatment Scheduled Referrals Name Type Priority Associated Diagnoses Order S [facility] LUNG Referral Routine Chronic bronchit is Ordered: 05/25/2013 HEALTH/PULMONARY Asthma with acute CONSULT-ADULT exacerbation documented as of this encounter Results XR CHEST PA/AP AND LAT 2 VIEWS * (05/25/2013 11:41 AM SPECIAL ORDER JEWELER) Anatomical Region Laterality Modality Chest, Lung Computed Radiography Specimen (Source) Anatomical Collection Method Collection Time Re ceived Time Location / / Volume Laterality 05/25/2013 12:17 PM SPECIAL ORDER JEWELER Narrative 05/25/2013 12:19 PM SPECIAL ORDER JEWELER XR CHEST AP/PA AND LAT 2VWS 05/25/2013 [...] pneumothora x or pleural effusion. Charley Rios TEST EXAMINER, HELMET HAT SWEATBAND PUNCHER RAD GD documented in this encounter Visit Diagnoses Diagnosis Chronic bronchitis (HRC) - Primary Unspecified chronic bronchitis Asthma with acute exacerbation (HRC) Unspecified asthma, with exacerbation Chronic bronchitis (HRC) - Primary Unspecified chronic bronchitis documented in this encounter Care Teams Family Law Mediator Relationship Specialty Start Date End Date Ramses Cleary MD PCP - General Family Practice 10/21/11 documented as of this encounter
--- OUTSIDE RECORDS SUMMARY | 2022-04-08 12:18 | XMS_ITS | Encounter Summary ---
:1935 Author Organization [facility] Address [address] [address] Care Team Providers Name Role Phone Ramses Cleary MD Primary Care Provider Unavailable Reason for Visit Reason Onset Date Comments QUESTIONS, GENERAL 07/28/2013 Encounter Details Date Type Department Care Team Description 07/28/2013 Telephone [facility] JIGNA Blanton ONS, GENERAL [place] Otolaryng ology Maddy Griffith, NON EMERGENCY SERVICES AMBULANCE DRIVER, [address] [place] [phone] [address] [facility] [phone] [place] [address] Social History Tobacco Use Types Packs/Day Years [...] via mail.Michaela Minor RN 07/29/2013, 9:00 AM [facility] MEDICINE VETERINARY TECHNICIAN Maddy Blanton APRN, MARTI - 07/29/2013 8:46 AM CST Please inform pt results of CT are normal. He should follow up as recommended 6- 8 weeks after initial visit 07/01/13 Maddy Blanton NP 07/29/2013, 8:47 AM RNAL MEDICINE VETERINARY TECHNICIAN Cristina Souza RN - 07/28/2013 3:54 PM CST Maddy, Pt and looking for results of recent CT of Chest. Cristina Souza RN 07/28/2013, 3:55 PM RNAL MEDICINE VETERINARY TECHNICIAN Javan Hamlin - 07/28/2013 3:28 PM CST Reason for call? Patient is calling to get MRI results. Please call. Best time to reach you? anytime Ok to leave a detailed message? yes Javan Hamlin ....................................07/28/2013 3:28 PM RNAL MEDICINE VETERINARY TECHNICIAN documented in this encounter Plan of Treatment Not on filedocumented as of this encounter Visit Diagnoses Not on filedocumented in this encounter Care Teams Industry Consultant Relationship Specialty Start Date End Date Ramses Cleary MD PCP - General Family Practice 10/21/11 documented as of this encounter
--- OUTSIDE RECORDS SUMMARY | 2022-04-08 12:18 | XMS_ITS | Encounter Summary ---
:1935 Author Organization [facility] Address [address] [address] Care Team Providers Name Role Phone Ramses Cleary MD Primary Care Provider Unavailable Reason for Visit Reason Comments PRE-OP EXAM Follow Up Medication Encounter Details Date Type Department Care Team Description 08/03/2013 Office Visit [facility] Ramses Cleary [facility] er specified pre-operative examination (Primary Dx); Beatriz Shipman MD Basal cell carcinoma; Practice [address] UNSPECIFIED ASTHMA [address] [place] [address] [place], [place] [phone] Social History Tobacco Use Types Packs/Day Years [...] Comments Blood Pressure 124/84 08/03/2013 8:43 AM BASKETBALL SCOUT Pulse 67 08/03/2013 8:43 AM BASKETBALL SCOUT Temperature 36.6 ??C (97.8 ??F) 08/03/2013 8:43 AM BASKETBALL SCOUT Respiratory Rate 18 08/03/2013 8:43 AM BASKETBALL SCOUT Oxygen Saturation 96% 08/03/2013 8:43 AM BASKETBALL SCOUT Inhaled Oxygen Concentration - - Weight 108.4 kg (239 lb) 08/03/2013 8:43 AM BASKETBALL SCOUT Height 175.3 cm (5' 9) 08/03/2013 8:43 AM BASKETBALL SCOUT Body Mass Index 35.29 08/03/2013 8:43 AM BASKETBALL SCOUT documented in this encounter Patient Instructions Patient InstructionsTeresa Orta, LOAN BROKER - 08/03/2013 8:42 AM CST Patient is Active with Online Patient Services, but needs username and password reset. OK to proceed with surgery pending the results of the EKG> ETBALL SCOUT documented in this encounter Progress Notes Ramses Cleary MD - 08/03/2013 8:48 AM CST Zaid Rutledge, medical record [id number], is a 78 yr year old male who is here for presurgical risk assessment. He is scheduled for surgery at [place] on 08/04/[address] WEAVER. HPI: Had recent biopsy of left ear. This was a basal cell carcinoma. Scheduled for surgical excisionat [place]. His primary physician is Ramses Cleary MD. [...] preoperative assessment was signed electronically on 08/03/2013 ETBALL SCOUT documented in this encounter Plan of Treatment Not on filedocumented as of this encounter Visit Diagnoses Diagnosis Other specified pre-operative examinatio n - Primary Basal cell carcinoma Basal cell carcinoma of skin, site unspe cified UNSPECIFIED ASTHMA Unspecified asthma documented in this encounter Care Teams Pipe Layer Relationship Specialty Start Date End Date Ramses Cleary MD PCP - General Family Practice 10/21/11 documented as of this encounter
--- OUTSIDE RECORDS SUMMARY | 2022-04-08 12:18 | XMS_ITS | Encounter Summary ---
:1935 Author Organization [facility] Address [address], [place] [address] Care Team Providers Name Role Phone Ramses Cleary MD Primary Care Provider Unavailable Reason for Visit Reason Comments SKIN LESION Encounter Details Date Type Department Care Team Description 06/20/2013 Office Visit [facility] Luis A Cordero ging skin lesion (Primary Dx); Beatriz Abraham MD Traveler's diarrhea Practice [address] [place] [address] [place], [place] [phone] Social History Tobacco Use Types Packs/Day Years [...] Comments Blood Pressure 122/74 06/20/2013 3:11 PM ASSEMBLER FOR PULLER OVER MACHINE Pulse 76 06/20/2013 3:11 PM ASSEMBLER FOR PULLER OVER MACHINE Temperature - - Respiratory Rate 18 06/20/2013 3:11 PM ASSEMBLER FOR PULLER OVER MACHINE Oxygen Saturation - - Inhaled Oxygen Concentration - - Weight 107 kg (236 lb) 06/20/2013 3:11 PM ASSEMBLER FOR PULLER OVER MACHINE Height 175.3 cm (5' 9) 06/20/2013 3:11 PM ASSEMBLER FOR PULLER OVER MACHINE Body Mass Index 34.85 06/20/2013 3:11 PM ASSEMBLER FOR PULLER OVER MACHINE documented in this encounter Patient Instructions Patient InstructionsStringLuis A sutton MD - 06/20/2013 3:37 PM CST Images [...] Make a follow up appointment by calling [phone] if you have any signs of infection. [...] until the bleeding stops. ?? Take an ipjh-afr-trrkeok pain medicine, such as acetaminophen (Tylenol), ibuprofen [...] Where can you learn more? Go to [employer] and enter E372 in the search box. Last Revised: July 27, 2012 ?? [phone] [employer]. Learning About Healthy Travel Abroad How [...] want to bring medicine for traveler's diarrhea. Zscz-bhn-dpmhudt medicines include: ?? Bismuth subsalicylate (Pepto-Bismol). ?? [...] be dangerous due to bad roads, poor compactor driver training, and crowded roadways. If you hire a compactor driver or taxi, ask the compactor driver to slow down or drive more [...] the region you are visiting. See the [place] Turn Department's website at www.useClean Air Powery.gov. It lists every [place] embassy worldwide. It [...] your ship's health record on this website: www.[facility].gov/akeh/vsp. Where can you learn more? Go to [employer] and enter R129 in the search box. Last Revised: July 15, 2012 ?? [id number] [employer]. MBLER FOR PULLER OVER MACHINE documented in this encounter Progress Notes Luis [...] tolerated without complications. Pathology was sent to [facility] Pathology. Sun protection with sunscreens and clothing to prevent skin cancer is discussed. The signs and symptoms of malignant skin lesions are reviewed with him today. Luis A Cordero MBLER FOR PULLER OVER MACHINE documented in this encounter Nursing Notes 06/20/2013 3:10 PM CST >> RENEE STOCKTON [facility] Jun 20, 2013 3:12 PM Patient is here for a skin lesion on his left ear. Renee Stockton 06/20/2013, 3:10 PM documented in this encounter Plan of Treatment Not on filedocumented as of this encounter Results SURGICAL PATH (06/20/2013 6:00 AM ASSEMBLER FOR PULLER OVER MACHINE) [facility] Method Time Signature Histology (NOTE) [facility] Final Report [facility] Patient Name: ZAID RUTLEDGE Taken: 06/20/2013 Received: 06/20/2013 Reported: 06/21/2013 Physician(s): LUIS A CORDERO ([id number]) ? Final Pathologic Diagnosis Skin, left ear, [...] two slides. ?? snp/06/21/2013 Kee Becerra MD [facility] Department of Pathology [address] [place] [address] ??[id number] Specimen Anatomical Collection Method Collection Time Receive d Time (Source) Location / / Volume Laterality EXCISION OF SKIN / 06/20/2013 6:00 AM 11/2013 5:43 Unknown ASSEMBLER FOR PULLER OVER MACHINE PM ASSEMBLER FOR PULLER OVER MACHINE Luis A Cordero MD LAB_1 Performing Organization Address City/State/ZIP Code Phon e Number [address] [phone] [phone] documented in this encounter Visit Diagnoses Diagnosis Changing skin lesion - Primary Unspecified disorder of skin and subcuta neous tissue Traveler's diarrhea Infectious diarrhea documented in this encounter Care Teams Fireworks Maker Relationship Specialty Start Date End Date Ramses Cleary MD PCP - General Family Practice 10/21/11 documented as of this encounter
--- OUTSIDE RECORDS SUMMARY | 2022-04-08 12:18 | XMS_ITS | Encounter Summary ---
:1935 Author Organization [employer] Address [address], [place] [address] Care Team Providers Name Role Phone Ramses Cleary MD Primary Care Provider Unavailable Encounter Details Date Type Department Care Team Description 07/22/2013 Orders Only [facility], Laboratory Provider [address] [place] [address] Social History Tobacco Use Types Packs/Day Years [...] 07/22/2013 12:00 AM CSTAssociated Order(s): SCANNED ORDER NING PROGRAM MANAGER documented in this encounter Plan of Treatment Not on filedocumented as of this encounter Procedures Procedure Name Priority Date/Time Associated Diagnosis Comme nts SCANNED ORDER 07/22/2013 12:00 AM Results for this TRAINING PROGRAM MANAGER procedure are i n the results section . documented in this encounter Results SCANNED ORDER (07/22/2013 12:00 AM TRAINING PROGRAM MANAGER) Specimen (Source) Anatomical Location Collection Method / Collectio n Time Received Time / Laterality Volume 07/22/2013 Narrative This result has an attachment that is no t available. Transcriptions [facility], Provider - 07/22/2013 12:00 AM CST Provider [facility] DUMMY/OTHER/AR documented in this encounter Visit Diagnoses Not on filedocumented in this encounter Care Teams Grinder And Honer Operator Automatic Relationship Specialty Start Date End Date Ramses Cleary MD PCP - General Family Practice 10/21/11 documented as of this encounter
--- OUTSIDE RECORDS SUMMARY | 2022-04-08 12:18 | XMS_ITS | Encounter Summary ---
:1935 Author Organization [employer] Address [address], [place] [address] Care Team Providers Name Role Phone Ramses Cleary MD Primary Care Provider Unavailable Reason for Referral Procedure/Equipment (Routine) - Closed Specialty Diagnoses / Procedures Referred By Contact Refer red To Contact Radiology [place] Procedures Maddy Fuentes Radiology CT CHEST WITH CONTRAST JESSA Griffith CNP [address] [place] [address] [place] [address] Phone: Referral ID Status Reason Start Date Expiration Date Visits Requ ested Visits Authorized [id number] Closed 07/22/2013 1 1 rocedure/Equipment (Routine) - Closed Specialty Diagnoses / Procedures Referred By Contact Refer red To Contact Pulmonary Maddy Fuentes Lv Respi ratory Care MARTI GERMAIN Pulmonary [address] [place] [address] [place] [address] Phone: Fax: Referral ID Status Reason Start Date Expiration Date Visits Requ ested Visits Authorized [id number] Closed 07/01/2013 1 1 Scheduling Instructions Your provider has recommended you to hav e a Pulmonary Function Test performed. You may call [phone] to schedule your a ppointment. Or a project controls scheduler will contact within the next 3 business days to jensen t you in setting up this appointment. NESS TEAM LEADER Reason for Visit Reason Comments BRONCHITIS Consult/Transfer Care (Routine) - Closed Specialty Diagnoses / Procedures Referred By Contact Refer red To Contact Pulmonary Diagnoses Chronic bronchitis (HRC) Asthma with acute exacerbation (HRC) Charley Rios, Cc Pulmonary JESSA, SYSTEMS SPEC [address] [place] [address] [place] [address] Referral ID Status Reason Start Date Expiration Date Visits Requ ested Visits Authorized [id number] Closed 05/25/2013 1 1 Encounter Details Date Type Department Care Team Description 07/01/2013 Office Visit [facility] Jaymie Fuentes cough (Primary Dx); [facility] Maddy Griffith APRN, Unspecified asthma(493.90) [address] [place] [address] [phone] [place] [address] Social History Tobacco Use Types Packs/Day Years [...] Comments Blood Pressure 110/76 07/01/2013 9:25 AM BUSINESS TEAM LEADER Pulse 66 07/01/2013 9:25 AM BUSINESS TEAM LEADER Temperature - - Respiratory Rate - - Oxygen Saturation 99% 07/01/2013 9:25 AM BUSINESS TEAM LEADER Inhaled Oxygen Concentration - - Weight - - Height - - Body Mass Index - - documented in this encounter Patient Instructions Patient InstructionsMaddy Fuentes APRN, CNP - 07/01/2013 10:01 AM BUSINESS TEAM LEADER The 3 most common causes of chronic [...] appointment with me in approximately 6-8 weeks. NESS TEAM LEADER documented in this encounter Progress Notes Maddy Fuentes APRN, CNP - 07/01/2013 11:15 AM BUSINESS TEAM LEADER Addended by: MADDY FUENTES on: 07/01/2013 11:15 AM Modules accepted: Orders NESS TEAM LEADER Maddy Fuentes APRN, CNP - 07/01/2013 9:38 AM CST PULMONARY CONSULT Requesting Provider: Charley Rios NP [address] [place] [address] CC: Chronic cough and congestion HPI: 78 [...] mg BID. He is followed by an chest painting leader at [facility] and was last seen in clinic [...] his in a single family home in [place]. He is traveling to [place] for two weeks later this months for his 50th anniversary. Family History: Family History Problem Relation [...] intact Additional Information and Data: Spirometry from [facility] is not available for review during this [...] appointment with me in approximately 6-8 weeks. NESS TEAM LEADER documented in this encounter Plan of Treatment Scheduled Referrals Name Type Priority Associated Diagnoses Order S chedule PFT/SPIROMETRY Referral Routine Ordered: 06/15 documented as of this encounter Results CT CHEST WITH CONTRAST (07/22/2013 5:10 PM BUSINESS TEAM LEADER) Anatomical Region Laterality Modality Chest, Lung Computed Tomography Specimen (Source) Anatomical Collection Method Collection Time Re ceived Time Location / / Volume Laterality 07/22/2013 7:13 PM BUSINESS TEAM LEADER Narrative 07/22/2013 7:17 PM BUSINESS TEAM LEADER CT CHEST W CONT 07/22/2013 5:10 PM [...] or PET o r biopsy. Maddy Fuentes IMAGERY INTELLIGENCE, SYSTEMS SPEC RAD CT documented in this encounter Visit Diagnoses Diagnosis Chronic cough - Primary Cough Unspecified asthma(493.90) ([facility]) Unspecified asthma documented in this encounter Care Teams Database Dba Relationship Specialty Start Date End Date Ramses Cleary MD PCP - General Family Practice 10/21/11 documented as of this encounter
--- OUTSIDE RECORDS SUMMARY | 2022-04-08 12:19 | XMS_ITS | Encounter Summary ---
:1935 Author Organization [employer] Address [address], [place] [address] Care Team Providers Name Role Phone Ramses Cleary MD Primary Care Provider Unavailable Reason for Visit Reason Onset Date Comments Orders Needed 08/25/2012 ua Encounter Details Date Type Department Care Team Description 08/25/2012 Telephone [facility] Waqas Rodney, Orders Needed (ua) Urology [address] [place], [place] [id number] [phone] [place], [place] [address] (Wo rk) Social History [...] Cipro 500mg #14 is called into the [facility] in [place]. Sarina Christianson RN 08/26/2012, 8:17 AM Sarina [...] Sarina Christianson RN 08/25/2012, 11:07 AM Shweta Louis - 08/25/2012 10:34 AM CDT Patient calls [...] (ABNORMAL) URINE CULTURE (08/25/2012 1:00 PM CDT) [facility] Method Time Signature Final Report Final [facility] Results (A) Comment: URINE SOURCE: [...] 013 3:11 (specimen) CDT PM CDT Narrative [facility] - 08/27/2012 11:37 AM CDT This order was split into 3 orders: ??[id number], [id number], [id number] Waqas Rodney MD LAB_1 Performing Organization Address City/State/ZIP Code Phon e Number [facility] [address] [place] [address] (ABNORMAL) UA MICRO IF (08/25/2012 1:00 PM CDT) [facility] gist Method Time Signature Urine Color [...] This order was split into 3 orders: ??[id number], [id number], [id number] Waqas Rodney MD LAB_1 Performing Organization Address City/State/ZIP Code Phon e Number [facility] [address] [place], [place] [address] [facility] [address] [place], [place] [address] documented in this encounter Visit Diagnoses Diagnosis Urinary frequency - Primary Urinary frequency documented in this encounter Care Teams Lead Security Officer Relationship Specialty Start Date End Date Ramses Cleary MD PCP - General Family Practice 10/21/11 documented as of this encounter
--- OUTSIDE RECORDS SUMMARY | 2022-04-08 12:19 | XMS_ITS | Encounter Summary ---
:1935 Author Organization [facility] Address [address] [address] Care Team Providers Name Role Phone Ramses Cleary MD Primary Care Provider Unavailable Reason for Visit Reason Comments Hearing Aid Encounter Details Date Type Department Care Team Description 03/25/2012 Office Visit [facility] Delvis Chaudhry hearing loss, [facility] & MICHAEL Roach bilateral (Primary Hearing Center Dx) [address] [place] [address] Social History Tobacco Use Types Packs/Day Years [...] AU.D. - 03/30/2012 4:42 PM CDT The Scalp Treatment Specialist performs an Otoscopic examination of both ear [...] Primary documented in this encounter Care Teams Cheese Blender Relationship Specialty Start Date End Date Ramses Cleary MD PCP - General Family Practice 10/21/11 documented as of this encounter
--- OUTSIDE RECORDS SUMMARY | 2022-04-08 12:19 | XMS_ITS | Encounter Summary ---
:1935 Author Organization [facility] Address [address], [place] [address] Care Team Providers Name Role Phone Ramses Cleary MD Primary Care Provider Unavailable Reason for Visit Reason Comments Hearing Aid Encounter Details Date Type Department Care Team Description 09/29/2012 Office Visit [facility] Delvis Chaudhry hearing loss, [facility] & MICHAEL Roach bilateral (Primary Hearing Center Dx) [address] [place] [address] Social History Tobacco Use Types Packs/Day Years [...] AU.D. - 09/30/2012 9:55 AM CDT The Aircraft Electrician performs an Otoscopic examination of both ear [...] Primary documented in this encounter Care Teams School Cook Relationship Specialty Start Date End Date Ramses Cleary MD PCP - General Family Practice 10/21/11 documented as of this encounter
--- OUTSIDE RECORDS SUMMARY | 2022-04-08 12:19 | XMS_ITS | Encounter Summary ---
:1935 Author Organization [employer] Address [address] [place] [address] Care Team Providers Name Role Phone Ramses Cleary MD Primary Care Provider Unavailable Encounter Details Date Type Department Care Team Description 01/05/2012 Orders Only [facility] Radiology Unkn own, Physician MRI [address] [place] [address] [place] [address] [phone] Social History Tobacco Use Types Packs/Day Years Used Date Smoking Tobacco: Former Cigarettes Quit : 12/24/1997 Alcohol Use Standard Drinks/Week Comments Not Asked [...] on filedocumented in this encounter Care Teams Mainframe Programmer Relationship Specialty Start Date End Date Ramses Cleary MD PCP - General Family Practice 10/21/11 documented as of this encounter
--- OUTSIDE RECORDS SUMMARY | 2022-04-08 12:19 | XMS_ITS | Encounter Summary ---
:1935 Author Organization [facility] Address [address] [address] Care Team Providers Name Role Phone Ramses Cleary MD Primary Care Provider Unavailable Encounter Details Date Type Department Care Team Description 08/25/2012 Orders Only [facility] Urinary frequency Laboratory [address] [place] [address] Social History Tobacco Use Types Packs/Day [...] (ABNORMAL) URINE CULTURE (08/25/2012 1:00 PM CDT) [facility] Method Time Signature Final Report Final [facility] Results (A) Comment: URINE SOURCE: Urine [...] 013 3:11 (specimen) CDT PM CDT Narrative [facility] - 08/27/2012 11:37 AM CDT This order was split into 3 orders: ??[id number], [id number], [id number] Waqas Rodney MD LAB_1 Performing Organization Address City/State/ZIP Code Phon e Number [facility] [address] [place] [address] (ABNORMAL) UA MICRO IF (08/25/2012 1:00 PM CDT) [facility] gist Method Time Signature Urine Color YELLOW [...] PM 3 1:33 CDT PM CDT Narrative [facility] - 08/25/2012 1:4 2 PM CDT This order was split into 3 orders: ??[id number], [id number], [id number] Waqas Rodney MD LAB_1 Performing Organization Address City/State/ZIP Code Phon e Number [facility] [address] [place], [place] [address] [facility] [address] [place], [place] [address] documented in this encounter Visit Diagnoses Diagnosis Urinary frequency documented in this encounter Care Teams Barrel Lathe Operator Outside Relationship Specialty Start Date End Date Ramses Cleary MD PCP - General Family Practice 10/21/11 documented as of this encounter
--- OUTSIDE RECORDS SUMMARY | 2022-04-08 12:19 | XMS_ITS | Encounter Summary ---
:1935 Author Organization [facility] Address [address], [place] [address] Care Team Providers Name Role Phone Ramses Cleary MD Primary Care Provider Unavailable Reason for Visit Reason Comments Refill Med refills CONGESTION chest congestion, cough Encounter Details Date Type Department Care Team Description 03/25/2012 Office Visit [facility] Donnell Oliva (Primary Dx); Beatriz Jennings DO Acute bronchitis; Practice [address] GERD (gastroesophageal reflu x disease); [address] [place] [address] [place], [place] [phone] [address] Social History Tobacco Use Types Packs/Day Years [...] let's keep him at current dose. Thanks. Desitny Lindsey - 03/25/2012 4:27 PM CDT Addended [...] manubrium area. 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 REVIEW OF SYSTEMS: Negative except as per [...] controlled at present. Patient given handout from [employer] regarding non-medication ways to manage GERD. 3. [...] counseling and coordination of care. DO SERJIO Chao:snady Dictated: 03/25/2012 15:39:40 Transcribed: 03/28/2012 11:23:53 Job: [id number] Doc: [id number] cc: documented in this encounter Plan of [...] Signature Uric Acid 6.1 3.5 - 7.2 [place] mg/dL [facility] Specimen Anatomical Collection Method Collection Time Receive d Time (Source) Location / / Volume Laterality 03/25/2012 4:27 PM 2 6:24 CDT PM CDT Donnell Oliva DO LAB_1 Performing Organization Address City/State/ZIP Code Phon e Number [facility] [address] [place] [phone] documented in this encounter Visit Diagnoses Diagnosis Gout - Primary Gout, unspecified Acute bronchitis GERD (gastroesophageal reflux disease) Esophageal reflux Unspecified asthma(493.90) (C) Unspecified asthma documented in this encounter Care Teams Studio Model Relationship Specialty Start Date End Date Ramses Cleary MD PCP - General Family Practice 10/21/11 documented as of this encounter
--- OUTSIDE RECORDS SUMMARY | 2022-04-08 12:19 | XMS_ITS | Encounter Summary ---
:1935 Author Organization [facility] Address [address], [place] [address] Care Team Providers Name Role Phone Ramses Cleary MD Primary Care Provider Unavailable Reason for Visit Reason Comments HEARING LOSS Encounter Details Date Type Department Care Team Description 09/28/2012 Office Visit [facility] Delvis Chaudhry hearing loss, [facility] & MICHAEL Roach bilateral (Primary Hearing Center Dx) [address] [place] [address] Social History Tobacco Use Types Packs/Day Years [...] to contact his primary care physician. Jacky Nicolas:hue Dictated: 09/29/2012 11:34:44 Transcribed: 09/30/2012 11:24:54 Job: [id number] Doc: [id number] cc: Mala Chaudhry AU.D. - 09/29/2012 11:27 [...] Primary documented in this encounter Care Teams Time Stamp Assembler Relationship Specialty Start Date End Date Ramses Cleary MD PCP - General Family Practice 10/21/11 documented as of this encounter
--- OUTSIDE RECORDS SUMMARY | 2022-04-08 12:19 | XMS_ITS | Encounter Summary ---
:1935 Author Organization [employer] Address [address], [place] [address] Care Team Providers Name Role Phone Ramses Cleary MD Primary Care Provider Unavailable Reason for Visit Reason Onset Date Comments Orders Needed 12/14/2012 Encounter Details Date Type Department Care Team Description 12/14/2012 Telephone [facility] Waqas Newton MD Orders Needed Urology [address] [place] [address] [place] [address] [phone] Social History Tobacco Use Types Packs/Day Years [...] documented as of this encounter Nursing Notes Hleene Ocampo, JESSA, CAR REPOSSESSOR - 12/14/2012 11:59 AM CDT Patient is [...] on filedocumented in this encounter Care Teams Educational Technology Coordinator Relationship Specialty Start Date End Date Ramses Cleary MD PCP - General Family Practice 10/21/11 documented as of this encounter
--- OUTSIDE RECORDS SUMMARY | 2022-04-08 12:19 | XMS_ITS | Encounter Summary ---
:1935 Author Organization [facility] Address [address] [address] Care Team Providers Name Role Phone Ramses Cleary MD Primary Care Provider Unavailable Reason for Visit Reason Onset Date Comments Lab Orders Needed 06/14/2012 LAB ONLY APPOINTMENT TODAY Encounter Details Date Type Department Care Team Description 06/14/2012 Telephone [facility] Waqas Rodney Orders Needed (LAB Beatriz Griffith MD ONLY APPOINTMENT [address] TODAY) [place], [place] [address] [phone] [place] [address] Social History Tobacco Use Types Packs/Day Years [...] ordered. Vandana Pierre CMA 06/14/2012 12:39 PM T COMPUTER Elayne Luke - 06/14/2012 11:43 AM CST [...] APPOINTMENT INFORMATION: TODAY 06/14/2012 PSA per Ronel T COMPUTER documented in this encounter Plan of Treatment Not on filedocumented as of this encounter Results (ABNORMAL) PROSTATIC SPECIFIC ANTIGEN (F/U) (06/14/2012 1:15 PM CHART COMPUTER) P athologist Signature Prostatic Spec 4.9 (H) 0.0 - 4.0 [facility] Ag ng/mL [facility] Specimen Anatomical Collection Method Collection Time Receive d Time (Source) Location / / Volume Laterality 06/14/2012 1:15 PM 2 2:27 CHART COMPUTER PM CHART COMPUTER Waqas Rodney MD LAB_1 Performing Organization Address City/State/ZIP Code Phon e Number [facility] [address] [place] [address] documented in this encounter Visit Diagnoses Diagnosis Prostate cancer (HRC) - Primary Malignant neoplasm of prostate documented in this encounter Care Teams Home Economist Consumer Service Relationship Specialty Start Date End Date Ramses Cleary MD PCP - General Family Practice 10/21/11 documented as of this encounter
--- OUTSIDE RECORDS SUMMARY | 2022-04-08 12:19 | XMS_ITS | Encounter Summary ---
:1935 Author Organization [employer] Address [address] [address] Care Team Providers Name Role Phone Ramses Cleary MD Primary Care Provider Unavailable Reason for Visit Reason Comments Revisit 6 month review prostate canc er Encounter Details Date Type Department Care Team Description 06/18/2012 Office Visit [facility] Waqas Rodney [facility] cancer Group Urology MD Gladis (Primary Dx) [address] [facility] [address] [place], [place] [address] [address] [place], [place] [phone] [address] Social History Tobacco Use Types Packs/Day Years [...] Comments Blood Pressure 136/78 06/18/2012 8:23 AM SPRING MACHINE OPERATOR Pulse 70 06/18/2012 8:23 AM SPRING MACHINE OPERATOR Temperature - - Respiratory Rate 16 06/18/2012 8:23 AM SPRING MACHINE OPERATOR Oxygen Saturation 97% 06/18/2012 8:23 AM SPRING MACHINE OPERATOR Inhaled Oxygen Concentration - - Weight - [...] Continue SIC. See in 6mos with PSA. NG MACHINE OPERATOR documented in this encounter Progress [...] Continue SIC. See in 6mos with PSA. NG MACHINE OPERATOR documented in this encounter Nursing Notes 06/18/2012 8:15 AM CST >> Vandana Pierre CMA ThuJun 18, 2012 8:24 AM Zaid Rutledge is [...] prostate documented in this encounter Care Teams Wildlife Control Agent Relationship Specialty Start Date End Date Ramses Cleary MD PCP - General Family Practice 10/21/11 documented as of this encounter
--- OUTSIDE RECORDS SUMMARY | 2022-04-08 12:19 | XMS_ITS | Encounter Summary ---
:1935 Author Organization [facility] Address [address] [place] [address] Care Team Providers Name Role Phone Ramses Cleary MD Primary Care Provider Unavailable Reason for Visit Reason Onset Date Comments LAB RESULTS 03/26/2012 uric acid results Encounter Details Date Type Department Care Team Description 03/26/2012 Telephone [facility] Donnell Oliva, LAB RESULTS (uric [facility] DO acid results) Practice [address] [place] [address] [place], [place] [phone] [address] Social History Tobacco Use Types Packs/Day Years [...] as of this encounter Nursing Notes Kristina Quinn, AFTAB - 03/26/2012 3:52 PM CDT Left message [...] on filedocumented in this encounter Care Teams Medical Practice Assistant Relationship Specialty Start Date End Date Ramses Cleary MD PCP - General Family Practice 10/21/11 documented as of this encounter
--- OUTSIDE RECORDS SUMMARY | 2022-04-08 12:19 | XMS_ITS | Encounter Summary ---
:1935 Author Organization [facility] Address [address], [place] [address] Care Team Providers Name Role Phone Ramses Cleary MD Primary Care Provider Unavailable Reason for Visit Reason Comments Hearing Aid Encounter Details Date Type Department Care Team Description 10/26/[address] [facility] Delvis Chaudhry hearing loss, [facility] & MICHAEL Rocah bilateral (Primary Hearing Center Dx) [address] [place] [address] Social History Tobacco Use Types Packs/Day Years [...] AU.D. - 10/28/2012 9:47 AM CDT The Car Sales Associate performs an Otoscopic examination of both ear [...] Primary documented in this encounter Care Teams Electro Mechanical Technician Relationship Specialty Start Date End Date Ramses Cleary MD PCP - General Family Practice 10/21/11 documented as of this encounter
--- OUTSIDE RECORDS SUMMARY | 2022-04-08 12:19 | XMS_ITS | Encounter Summary ---
:1935 Author Organization [employer] Address [address] [address] Care Team Providers Name Role Phone Ramses Cleary MD Primary Care Provider Unavailable Reason for Visit Reason Onset Date Comments Test Results 08/26/2012 cutlure results Encounter Details Date Type Department Care Team Description 08/26/2012 Telephone [facility] Waqas Rodney Test Results ([facility] Group Urology MD Gladis results) [address] [facility] [address] [place] [place] [address] [address] [place], [place] [phone] [address] Social History Tobacco Use Types Packs/Day Years [...] as of this encounter Nursing Notes Sarina Christianson, RN - 08/27/2012 1:43 PM CDT Patient [...] on filedocumented in this encounter Care Teams Asphalt Plant Laborer Relationship Specialty Start Date End Date Ramses Cleary MD PCP - General Family Practice 10/21/11 documented as of this encounter
--- OUTSIDE RECORDS SUMMARY | 2022-04-08 12:19 | XMS_ITS | Encounter Summary ---
:1935 Author Organization [employer] Address [address], [place] [address] Care Team Providers Name Role Phone No Primary/Referring, Phy Primary Care Provider Unavailable Encounter Details Date Type Department Care Team Description 01/05/2012 Consent for [facility] LV MRI SAF ET Procedure/[facility], SCREENING CONSENT nt [address] [facility] [place] [address] Social History Tobacco Use Types [...] Notes [facility], Provider - 01/05/2012 12:00 AM CDT documented in this encounter Plan of Treatment Not on filedocumented as of this encounter Visit Diagnoses Not on filedocumented in this encounter Care Teams Learning And Development Consultant Relationship Specialty Start Date End Date No Primary/Referring, Phy PCP - General 12/11/21 documented as of this encounter
--- OUTSIDE RECORDS SUMMARY | 2022-04-08 12:19 | XMS_ITS | Encounter Summary ---
:1935 Author Organization [employer] Address [address], [place] [address] Care Team Providers Name Role Phone Ramses Cleary MD Primary Care Provider Unavailable Encounter Details Date Type Department Care Team Description 01/05/2012 Office Visit [facility] Admitting Provider [address] [place] [address] Social History Tobacco Use Types Packs/Day Years [...] documented as of this encounter Progress Notes [facility], Provider - 01/05/2012 12:00 AM CDT documented in this encounter Plan of Treatment Not on filedocumented as of this encounter Visit Diagnoses Not on filedocumented in this encounter Care Teams Summer Law Associate Relationship Specialty Start Date End Date Ramses Cleary MD PCP - General Family Practice 10/21/11 documented as of this encounter
--- OUTSIDE RECORDS SUMMARY | 2022-04-08 12:19 | XMS_ITS | Encounter Summary ---
:1935 Author Organization [employer] Address [address], [place] [address] Care Team Providers Name Role Phone Ramses Cleary MD Primary Care Provider Unavailable Reason for Visit Reason Onset Date Comments Test Results 08/27/2012 urine culture Encounter Details Date Type Department Care Team Description 08/27/2012 Telephone [facility] Waqas Rodney Test Results (urine Group Urology JMD culture) [address] [facility] [address] [place], [place] [address] [address] [place], [place] [phone] Social History Tobacco Use Types Packs/Day Years [...] his antibiotic is called in to the [facility] in [place]. Liz documented in this encounter Plan of Treatment Not on filedocumented as of this encounter Visit Diagnoses Not on filedocumented in this encounter Care Teams Collector Of Internal Revenue Relationship Specialty Start Date End Date Ramses Cleary MD PCP - General Family Practice 10/21/11 documented as of this encounter
--- OUTSIDE RECORDS SUMMARY | 2022-04-08 12:19 | XMS_ITS | Encounter Summary ---
:1935 Author Organization [email or web address] Address [address], [place] [address] Care Team Providers Name Role Phone Ramses Cleary MD Primary Care Provider Unavailable Encounter Details Date Type Department Care Team Description 06/14/2012 Notes/Orders [facility] Waqas Rodney er outlet Group Urology MD Gladis obstruction (Primary [address] Dx) [place], [place] [address] [address] [place], [place] [phone] Social History Tobacco Use Types Packs/Day Years [...] ordered. Vandana Pierre CMA 06/14/2012 2:14 PM DRINIER MACHINE OPERATOR documented in this encounter Plan of Treatment Not on filedocumented as of this encounter Results (ABNORMAL) UA MICRO IF (06/14/2012 2:22 PM FOURDRINIER MACHINE OPERATOR) [facility] gist Method Time Signature Urine Color [...] Volume Laterality 06/14/2012 2:22 PM 2 2:27 FOURDRINIER MACHINE OPERATOR PM FOURDRINIER MACHINE OPERATOR Narrative [facility] - 06/14/2012 2:3 4 PM FOURDRINIER MACHINE OPERATOR This order was split into 2 orders: ??12 [id number], [id number] Waqas Rodney MD LAB_1 Performing Organization Address City/State/ZIP Code Phon e Number [facility] [address] [place], [place] [address] [facility] [address] [place], [place] [address] documented in this encounter Visit Diagnoses Diagnosis Bladder neck obstruction - Primary documented in this encounter Care Teams Electrical Installation Supervisor Relationship Specialty Start Date End Date Ramses Cleary MD PCP - General Family Practice 10/21/11 documented as of this encounter
--- OUTSIDE RECORDS SUMMARY | 2022-04-08 12:19 | XMS_ITS | Encounter Summary ---
:1935 Author Organization [facility] Address [address] [address] Care Team Providers Name Role Phone Ramses Cleary MD Primary Care Provider Unavailable Reason for Visit Reason Comments URI cough sore throat for 4 days Encounter Details Date Type Department Care Team Description 11/16/2012 Office Visit [facility] Ramses Cleary onic bronchitis (Primary Dx); Beatriz Shipman MD Laryngitis Practice [address] [place] [address] [place], [place] [phone] Social History Tobacco Use Types Packs/Day Years [...] truction documented in this encounter Care Teams Electro Mechanical Assembler Relationship Specialty Start Date End Date Ramses Cleary MD PCP - General Family Practice 10/21/11 documented as of this encounter
--- OUTSIDE RECORDS SUMMARY | 2022-04-08 12:19 | XMS_ITS | Encounter Summary ---
:1935 Author Organization [employer] Address [address], [place] [address] Care Team Providers Name Role Phone Unassigned, Provider Primary Care Provider Unavailable Encounter Details Date Type Department Care Team Description 03/17/2011 [facility] Waqas Rodney, [address] [place] [address] [address] [place], [place] [address] (Wo rk) Social History [...] on filedocumented in this encounter Care Teams Cardiovascular Lab Director Relationship Specialty Start Date End Date Unassigned, Provider PCP - General 12/31/06 10/20/[address] [place] [address] documented as of this encounter
--- OUTSIDE RECORDS SUMMARY | 2022-04-08 12:20 | XMS_ITS | Encounter Summary ---
:1935 Author Organization [employer] Address [address], [place] [address] Care Team Providers Name Role Phone Unassigned, Provider Primary Care Provider Unavailable Encounter Details Date Type Department Care Team Description 03/25/2010 [facility] Waqas Rodney Anesthesia Records [address] [facility] [place] [address] [phone] [place] [address] Social History Tobacco Use Types Packs/Day Years [...] on filedocumented in this encounter Care Teams Pastoral Worker Relationship Specialty Start Date End Date Unassigned, Provider PCP - General 12/31/06 10/20/[address] [place] [address] documented as of this encounter
--- OUTSIDE RECORDS SUMMARY | 2022-04-08 12:20 | XMS_ITS | Encounter Summary ---
:1935 Author Organization [employer] Address [address] [address] Care Team Providers Name Role Phone Unassigned, Provider Primary Care Provider Unavailable Encounter Details Date Type Department Care Team Description 02/27/2010 [facility] Waqas Rodney, eOR Record [address] [place] [address] [place] [address] (Wo rk) Social History Tobacco Use Types [...] 02/27/2010 12:00 AM CDTAssociated Order(s): ECG TRACING Waqas Rodney MD - 02/27/2010 12:00 AM [...] on filedocumented in this encounter Care Teams Abalone Fisherman Relationship Specialty Start Date End Date Unassigned, Provider PCP - General 12/31/06 10/20/[address] [place] [address] documented as of this encounter
--- OUTSIDE RECORDS SUMMARY | 2022-04-08 12:20 | XMS_ITS | Encounter Summary ---
:1935 Author Organization [facility] [facility] Address [address], [place] [address] Care Team Providers Name Role Phone Unassigned, Provider Primary Care Provider Unavailable Reason for Visit Reason Comments LASER TREATMENT Encounter Details Date Type Department Care Team Description 06/18/2007 Office Visit [facility] Mark Boyd, Other Plastic Surgery for Unacceptable Cosmetic Appearance (Primary Dx); [facility] Hereditary Hemorrhagic Telangiectasia [address] [place] [address] [place], [place] [phone] Social History Tobacco Use Types Packs/Day Years [...] Line and ask for the Dermatologic Surgeon butcher scullion at . PERSON documented in this encounter Progress Notes Mark Boyd - 06/18/2007 3:22 PM CST HISTORY OF PRESENT ILLNESS Zaid Rutledge was previously seen in the Dermatologic Surgery [...] and the need for multiple treatments. Zaid Estrella opted for KTP laser treatments, and this was performed today. Please see the procedure note for further details. 2. The procedure was cosmetic, and Zaid Rutledge was charged $375 total ($175 [email or web address] laser rental fee, and $200 [facility] fee). 3. I recommended sun protective measures on a daily basis. 4. Zaid Rutledge will return to clinic in two months for further KTP laser treatments, or sooner should they have any questions or concerns. Mark Boyd MD 06/18/2007 NAME OF PROCEDURE: KTP LASER TREATMENT (wavelength: 532 nm) Surgeon: Mark Boyd MD [facility] PREOPERATIVE DIAGNOSIS: Telangiectasias POSTOPERATIVE DIAGNOSIS: Same [...] the Dermatologic Surgery Center alert and ambulatory. 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
--- OUTSIDE RECORDS SUMMARY | 2022-04-08 12:20 | XMS_ITS | Encounter Summary ---
:1935 Author Organization [employer] Address [address] [address] Care Team Providers Name Role Phone No Primary/Referring, Phy Primary Care Provider Unavailable Encounter Details Date Type Department Care Team Description 06/18/2007 Consent for Specialty Center Mark Boyd CONSE NT FOR Procedure/Treatme [address] [facility] PROCEDURE nt [address] [place] [address] [place], [place] [phone] Social History Tobacco Use Types Packs/Day Years [...] Notes Mark Boyd - 06/18/2007 12:00 AM ENERGY CONTROL OFFICER GY CONTROL OFFICER documented in this encounter Plan of Treatment Not on filedocumented as of this encounter Visit Diagnoses Not on filedocumented in this encounter Care Teams Gluing Machine Operator Automatic Relationship Specialty Start Date End Date No Primary/Referring, Phy PCP - General 12/11/21 documented as of this encounter
--- OUTSIDE RECORDS SUMMARY | 2022-04-08 12:20 | XMS_ITS | Encounter Summary ---
:1935 Author Organization [employer] Address [address] [address] Care Team Providers Name Role Phone Unassigned, Provider Primary Care Provider Unavailable Encounter Details Date Type Department Care Team Description 06/06/2009 [facility] Tan Caldwell Disch Instructions [address] [place] [address] [place] [address] [facility] [place] [address] Social History Tobacco Use Types Packs/Day Years [...] 06/06/2009 10:38 AM Resu lts for this ENGINE WATCHMAN procedure are i n the results section. IMAGING REPORTS HX 06/06/2009 12:00 AM Re sults for this ENGINE WATCHMAN procedure are i n the results section. LAB IP 06/06/2009 12:00 AM Results for this ENGINE WATCHMAN procedure are i n the results section. ECG TRACING 06/06/2009 12:00 AM Results for this ENGINE WATCHMAN procedure are i n the results section. documented in this encounter Results XR CHEST AP/PA AND LAT 2VWS (06/06/2009 10:38 AM ENGINE WATCHMAN) Anatomical Region Laterality Modality Chest, Lung Other Specimen (Source) Anatomical Collection Method Collection Time Re ceived Time Location / / Volume Laterality 06/06/2009 10:38 AM ENGINE WATCHMAN Narrative 06/06/2009 3:52 PM ENGINE WATCHMAN FINAL RESULT CHEST: Indication: ??Chest pain. ?? Comparison: ??[facility] N ovember 2006. Findings: ??PA and lateral demonstrate d iaphragm flattening consistent with obstructive pulmonary disease, left lung calcified granulomas, healed left clavicle fracture, and stabl e lower thoracic mild vertebral body compression fracture. ?? Heart size appears normal and lungs appe ar otherwise clear. ?? READ BY:LEANA PEREZ ? DFF/OK/[id number] APPROVED BY:Tab PEREZ :14 :39 S:06-06-915:52 Page 1 CONFIDENTIAL - INTENDED FOR HEALTHCAR E PROVIDER USE ONLY DATE INFORMED: HOW CONTACTED: PHON E/MAIL/PERSON PATIENT NOTIFIED BY: INITIALS:___ __ Procedure Note Leana Perez - 07/16/2011Format ting of this note might be different from the original. FINAL RESULT CHEST: Indication: Chest pain. Comparison: [facility]2006. Findings: PA and lateral demonstrate jayce phragm flattening consistent with obstructive pulmonary disease, left lung calcified granulomas, healed left clavicle fracture, and stabl e lower thoracic mild vertebral body compression fracture. Heart size appears normal and lungs appe ar otherwise clear. READ BY:LEANA PEREZ DFRita/OK/[id number] APPROVED BY:Tab PEREZ :14 :39 S:06-06-915:52 Page 1 CONFIDENTIAL - INTENDED FOR HEALTHCAR E PROVIDER USE ONLY DATE INFORMED: HOW CONTACTED: PHON E/MAIL/PERSON PATIENT NOTIFIED BY: INITIALS:___ __ Tan Caldwell MD RAD GD LAB IP (06/06/2009 12:00 AM ENGINE WATCHMAN) Narrative This result has an attachment that is no t available. Transcriptions Tan Caldwell MD - 06/06/2009 12:0 0 AM CST Tan Caldwell MD DUMMY/OTHER/AR IMAGING REPORTS HX (06/06/2009 12:00 AM ENGINE WATCHMAN) Anatomical Region Laterality Modality Other Narrative This result has an attachment that is no t available. Transcriptions Tan Caldwell MD - 06/06/2009 12:0 0 AM CST Tan Caldwell MD DUMMY/OTHER/AR ECG TRACING (06/06/2009 12:00 AM ENGINE WATCHMAN) Narrative This result has an attachment that is no t available. Transcriptions Tan Caldwell MD - 06/06/2009 12:0 0 AM CST Tan Caldwell MD EKG documented in this encounter Visit Diagnoses Not on filedocumented in this encounter Care Teams Buffer Inflated Pad Relationship Specialty Start Date End Date Unassigned, Provider PCP - General 12/31/06 10/20/[address] [place] [address] documented as of this encounter
--- OUTSIDE RECORDS SUMMARY | 2022-04-08 12:20 | XMS_ITS | Encounter Summary ---
:1935 Author Organization [employer] Address [address] [address] Care Team Providers Name Role Phone Unassigned, Provider Primary Care Provider Unavailable Reason for Visit Reason Comments Post Op Exam Encounter Details Date Type Department Care Team Description 06/04/2007 Office Visit Cosmetic [facility] Plastic Baron Rogers MD Complications (Primary [facility], [address] [place] [address]) [address] [place], [place] [address] [place] [address], [place] [address] Social History Tobacco Use Types Packs/Day Years [...] Notes Baron Rogers - 06/04/2007 12:00 AM AUDIO RECORDING ENGINEER Patient who is seen back after having [...] see him back as needed. A cc: O RECORDING ENGINEER documented in this encounter Plan of Treatment Not on filedocumented as of this encounter Visit Diagnoses Diagnosis Other specified complications - Primary documented in this encounter Care Teams Director Of Math Relationship Specialty Start Date End Date Unassigned, Provider PCP - General 12/31/06 10/20/[address] [place] [address] documented as of this encounter
--- OUTSIDE RECORDS SUMMARY | 2022-04-08 12:20 | XMS_ITS | Encounter Summary ---
:1935 Author Organization [employer] Address [address] [address] Care Team Providers Name Role Phone Unassigned, [...] Screening for Malignant [place] [address] [place], [place] [phone] Social History Tobacco Use Types Packs/Day Years [...] skin documented in this encounter Care Teams Preschool Teacher'S Assistant Relationship Specialty Start Date End Date Unassigned, Provider PCP - General 12/31/06 10/20/[address] [place] [address] documented as of this encounter
--- OUTSIDE RECORDS SUMMARY | 2022-04-08 12:20 | XMS_ITS | Encounter Summary ---
:1935 Author Organization [employer] Address [address] [address] Care Team Providers Name Role Phone Unassigned, Provider Primary Care Provider Unavailable Reason for Visit Reason Onset Date Comments AFTERCARE, SURGICAL 01/04/2007 Encounter Details Date Type Department Care Team Description 01/04/2007 [facility] Carey Nieto, RN AFTERCARE, SURGICAL Operating Room [address] [id number] [address] [place] [address] [place] [address] [phone] (Wo rk) Social History Tobacco Use Types [...] on filedocumented in this encounter Care Teams Bmw Sales Consultant Relationship Specialty Start Date End Date Unassigned, Provider PCP - General 12/31/06 10/20/[address] [place] [address] documented as of this encounter
--- OUTSIDE RECORDS SUMMARY | 2022-04-08 12:20 | XMS_ITS | Encounter Summary ---
:1935 Author Organization [employer] Address [address], [place] [address] Care Team Providers Name Role Phone Unassigned, Provider Primary Care Provider Unavailable Encounter Details Date Type Department Care Team Description 03/04/2011 [facility] Hx [facility] Bird Hewitt, Anesthesia Records [address] [place] [address] [address] [phone] [place] [address] Social History Tobacco Use Types Packs/Day Years [...] pr esent. ?? READ BY:ARUNA ROONEY ? ARIANA/LUCIANO/[id number] APPROVED BY:Gladis ROONEY :58 :49 S:03-04-1114:15 Page [...] a surgical drain pres ent. READ BY:ARUNA LANE/LUCIANO/[id number] APPROVED BY:Gladis ROONEY :58 :49 S:03-04-1114:15 Page [...] on filedocumented in this encounter Care Teams Cyber Instructor Relationship Specialty Start Date End Date Unassigned, Provider PCP - General 12/31/06 10/20/[address] [place] [address] documented as of this encounter
--- OUTSIDE RECORDS SUMMARY | 2022-04-08 12:20 | XMS_ITS | Encounter Summary ---
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
--- OUTSIDE RECORDS SUMMARY | 2022-04-08 12:20 | XMS_ITS | Encounter Summary ---
:1935 Author Organization [employer] Address [address], [place] [address] Care Team Providers Name Role Phone Unassigned, Provider Primary Care Provider Unavailable Reason for Visit Reason Comments Post Op Exam Encounter Details Date Type Department Care Team Description 01/12/2007 Office Visit Cosmetic and Plastic Kam Mittal MD Mal ig [facility] [address] [place] [address], [address] [place] [address] Social History Tobacco Use Types [...] face documented in this encounter Care Teams Lens Edger Relationship Specialty Start Date End Date Unassigned, Provider PCP - General 12/31/06 10/20/[address] [place] [address] documented as of this encounter
--- OUTSIDE RECORDS SUMMARY | 2022-04-08 12:20 | XMS_ITS | Encounter Summary ---
:1935 Author Organization [employer] Address [address], [place] [address] Care Team Providers Name Role Phone Unassigned, Provider Primary Care Provider Unavailable Encounter Details Date Type Department Care Team Description 01/01/2007 [facility] Baron Khanna, Operating Room [address] [id number] [address] [place] [address] [place], [place] [phone] (Wo rk) Social History Tobacco Use Types [...] side of nose. SURGEON: Baron Rogers MD OUTCOMES SPECIALIST: Can Stephen MD ANESTHESIA: MAC plus local. ESTIMATED BLOOD LOSS: Minimal. DRAINS: None. COMPLICATIONS: None. 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 Signed Date [facility] Staff Physician 1 Page 1 Patient Name: ZAID RUTLEDGE Visit Date: 01/01/2007 08:20:00 OUTPATIENT OPERATIVE REPORT CONFIDENTIAL MEDICAL RECORD [address] [phone] Page 1 Patient: ZAID RUTLEDGE [id number] Date of : 1935 Age: 71Y Visit Date: 01/01/2007 08:20:00 OUTPATIENT OPERATIVE REPORT documented in this encounter Miscellaneous Notes OR Nursing - Sheila Borges - 01/01/2007 11:31 AM CDT [facility] Progress Note Patient Name: Zaid Rutledge [...] Dose with Surgeon Prior to Administration lidocaine/EPINEphrine 1-1:199998 % injec tion Given 01/01/2007 11:19 AM CDT mL Injection, INTRA-OP, Starting on Thu01/01/07 at 1118, For 1 dose, Hazardous waste, dispose of in Black Box. 30ML ON FIELD LR injection 1,000 mL Given 01/01/2007 8:55 AM CDT 1,000 mL 1,000 mL, Intravenous, at 30 mL/hr, PACU, Starting on Thu01/01/07 at 0850, Continuous documented in this encounter Care Teams Art Framing Manager Relationship Specialty Start Date End Date Unassigned, Provider PCP - General 12/31/06 10/20/[address] [place] [address] documented as of this encounter
--- OUTSIDE RECORDS SUMMARY | 2022-04-08 12:20 | XMS_ITS | Encounter Summary ---
:1935 Author Organization [employer] Address [address] [address] Care Team Providers Name Role Phone Unassigned, Provider Primary Care Provider Unavailable Reason for Visit Reason Comments Post Op Exam Encounter Details Date Type Department Care Team Description 01/21/2007 Office Visit Cosmetic and Plastic Baron Rogers ow-Up Examination, Surgeons WMD Following Other [facility], [address] [place] [address] [address] [place] [address] [place] [address] Social History Tobacco Use Types Packs/Day Years [...] urgery documented in this encounter Care Teams Business Services Intern Relationship Specialty Start Date End Date Unassigned, Provider PCP - General 12/31/06 10/20/[address] [place] [address] documented as of this encounter
--- OUTSIDE RECORDS SUMMARY | 2022-04-08 12:20 | XMS_ITS | Encounter Summary ---
:1935 Author Organization [employer] Address [address], [place] [address] Care Team Providers Name Role Phone Unassigned, Provider Primary Care Provider Unavailable Encounter Details Date Type Department Care Team Description 09/24/2007 [facility] Milton Morin Op Report-Dictated [address] [place] [address] [phone] Social History Tobacco Use Types Packs/Day Years [...] on filedocumented in this encounter Care Teams Jewelry Sorter Relationship Specialty Start Date End Date Unassigned, Provider PCP - General 12/31/06 10/20/[address] [place] [address] documented as of this encounter
--- OUTSIDE RECORDS SUMMARY | 2022-04-08 12:20 | XMS_ITS | Encounter Summary ---
:1935 Author Organization [employer] Address [address] [address] Care Team Providers Name Role Phone Unavailable Primary Care Provider Unavailable Reason for Visit Reason Comments CONSULT Encounter Details Date Type Department Care Team Description 12/24/2006 Office Visit Cosmetic and Plastic Gladis Rogers MD Surgeons [address] [facility], [place], [place] [address] [place] [address] [phone] Social History Tobacco Use Types Packs/Day Years [...] in this encounter Progress Notes Baron Rogers - 12/24/2006 12:00 AM CDT He is a patient that we are seeing today at the request of Dr. Zaid Smith from [facility]. Dear Dr. Smith: We are seeing Mr. 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 This was biopsied by Dr. Smith on December 18, 2006, and noted in specimen ID [id number] from [facility] that it was an ulcerated basal cell. [...]
--- OUTSIDE RECORDS SUMMARY | 2022-04-08 12:20 | XMS_ITS | Encounter Summary ---
:1935 Author Organization [employer] Address [address] [address] Care Team Providers Name Role Phone Unassigned, Provider Primary Care Provider Unavailable Reason for Visit Reason Comments Basal Cell Carcinoma Encounter Details Date Type Department Care Team Description 12/31/2006 Office Visit Specialty Center Mark Boyd MD [facility] [address] Moh[facility] Surgery [address] NEC (Primary Dx) [address] [place] [address] [phone] Social History Tobacco Use Types Packs/Day Years [...] documented in this encounter Patient Instructions Patient Zkktxfyuwghc19/19/2007 12:53 PM CDT Wound Care Instructions for: [...] take care of the wound. Phone Numbers: [facility], Department of Dermatology Evenings/Weekends/Holidays, Ask for the Dermatologic Surgeon On-call [facility] is committed to the policy that all persons shall have equal access toits programs, facilities, and employment without regard to race, baptism, color, sex, national origin, handicap, age, status, or sexual orientation. 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 He is a non-smoker. History Tobacco [...] review of the pathology report, accession number [id number] ([facility]), it is noted that Zaid Rutledge [...] be cosmetic, will be $374 total ($174 [employer] laser rental fee, and $200 [employer] fee). 8. The patient will return to [...] MOHS MICROGRAPHIC SURGERY Surgeon: Mark Boyd MD [facility] PRE-OPERATIVE DIAGNOSIS: Basal cell carcinoma [...] cm x 1.4 cm. For reconstruction, Zaid Griffith Aamirmegans been referred to the Plastic Surgery service, [...] Primary documented in this encounter Care Teams Sanitation Worker Cleaning Equipment Relationship Specialty Start Date End Date Unassigned, Provider PCP - General 12/31/06 10/20/[address] [place] [address] documented as of this encounter
--- OUTSIDE RECORDS SUMMARY | 2022-04-08 12:20 | XMS_ITS | Encounter Summary ---
:1935 Author Organization [employer] Address [address], [place] [address] Care Team Providers Name Role Phone Unassigned, Provider Primary Care Provider Unavailable Encounter Details Date Type Department Care Team Description 01/01/2007 Surgery RH Operating Room Baron Rogers RECONSTRUCTION LOWER [address] [place] [address] [phone] [facility] [address] [place] [address] Social History Tobacco Use Types Packs/Day Years [...] side of nose. SURGEON: Baron Rogers MD SURVEYOR GEODETIC: Can Stephen MD ANESTHESIA: MAC plus local. ESTIMATED BLOOD LOSS: Minimal. DRAINS: None. COMPLICATIONS: None. 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 Signed Date [facility] Staff Physician 1 Page 1 Patient Name: ZAID RUTLEDGE Visit Date: 01/01/2007 08:20:00 OUTPATIENT OPERATIVE REPORT CONFIDENTIAL MEDICAL RECORD [address] [id number] Page 1 Patient: ZAID RUTLEDGE Location: [facility] HPN: [id number] Date of : 1935 Age: 71Y Visit Date: 01/01/2007 08:20:00 OUTPATIENT OPERATIVE REPORT documented in this encounter Miscellaneous Notes OR Nursing - Sheila Borges - 01/01/2007 11:31 AM CDT [facility] Progress Note Patient Name: Zaid Rutledge Date of : 1935 BACITRACIN OINTMENT APPLIED TO NOSE AFTER PROCEDURE. NO OTHER DRESSING APPLIED Sheila L Jony 01/01/2007 at 11:31 AM documented in [...] Dose with Surgeon Prior to Administration lidocaine/EPINEphrine [id number]:010900 % injec tion Given 01/01/2007 11:19 AM CDT mL Injection, INTRA-OP, Starting on Thu01/01/07 at 1118, For 1 dose, Hazardous waste, dispose of in Black Box. 30ML ON FIELD LR injection 1,000 mL Given 01/01/2007 8:55 AM CDT 1,000 mL 1,000 mL, Intravenous, at 30 mL/hr, PACU, Starting on Thu01/01/07 at 0850, Continuous documented in this encounter Care Teams Payment Rep Relationship Specialty Start Date End Date Unassigned, Provider PCP - General 12/31/06 10/20/[address] [place] [address] documented as of this encounter
--- OUTSIDE RECORDS SUMMARY | 2022-04-08 12:21 | XMS_ITS | Encounter Summary ---
:1935 Author Organization [employer] Address [address] [place] [address] Care Team Providers Name Role Phone Unassigned, Provider Primary Care Provider Unavailable Encounter Details Date Type Department Care Team Description 08/30/2005 [facility] Adryan Ramey, [address] [place] [address] [address] [facility] [phone] [place], [place] [address] (Wo rk) Social History [...] on filedocumented in this encounter Care Teams Roll Cutter Relationship Specialty Start Date End Date Unassigned, Provider PCP - General 12/31/06 10/20/11 [address] [place] [address] documented as of this encounter
--- OUTSIDE RECORDS SUMMARY | 2022-04-08 12:21 | XMS_ITS | Encounter Summary ---
:1935 Author Organization [employer] Address [address] [place] [address] Care Team Providers Name Role Phone Unassigned, Provider Primary Care Provider Unavailable Encounter Details Date Type Department Care Team Description 06/15/1989 PN Conversion Only PULMONARY NURSE PRACTITIONER [address] [facility] [place] [address] Social History Tobacco Use Types Packs/Day Years [...] on filedocumented in this encounter Care Teams Sewing Machine Maintenance Mechanic Relationship Specialty Start Date End Date Unassigned, Provider PCP - General 12/31/06 10/20/[address] [place] [address] documented as of this encounter
--- OUTSIDE RECORDS SUMMARY | 2022-04-08 12:21 | XMS_ITS | Encounter Summary ---
:1935 Author Organization [employer] Address [address] [place] [address] Care Team Providers Name Role Phone Unassigned, Provider Primary Care Provider Unavailable Encounter Details Date Type Department Care Team Description 09/11/2004 [facility] Bird Hewitt H and [facility] [place] [address] [address] [phone] [place] [address] Social History Tobacco Use Types Packs/Day Years [...] on filedocumented in this encounter Care Teams [employer] Partners Relationship Specialty Start Date End Date Unassigned, Provider PCP - General 12/31/06 10/20/[address] [place] [address] documented as of this encounter
--- OUTSIDE RECORDS SUMMARY | 2022-04-08 12:21 | XMS_ITS | Encounter Summary ---
:1935 Author Organization [facility] Address [address] [place] [address] Care Team Providers Name Role Phone Unavailable Primary Care Provider Unavailable Encounter Details Date Type Department Care Team Description 12/18/2006 Orders Only External to Unknown, [facility] [address] [place], [place] [address] (Wo rk) Social History Tobacco Use Types [...]
--- OUTSIDE RECORDS SUMMARY | 2022-04-08 12:21 | XMS_ITS | Encounter Summary ---
:1935 Author Organization [employer] Address [address] [place] [address] Care Team Providers Name Role Phone Unassigned, Provider Primary Care Provider Unavailable Encounter Details Date Type Department Care Team Description 07/26/2004 [facility] Bird Gupta MD [address] [place] [address] Social History Tobacco Use Types Packs/Day Years [...] on filedocumented in this encounter Care Teams Engineering Supplies Sales Relationship Specialty Start Date End Date Unassigned, Provider PCP - General 12/31/06 10/20/11 [address] [place] [address] documented as of this encounter
--- OUTSIDE RECORDS SUMMARY | 2022-04-08 12:21 | XMS_ITS | Clinical Summary ---
:1935 Author Organization [facility] [place] [address] Care Team Providers Name Role Phone Ramses [...] REFLUX, ESOPHAGEAL OSTEOARTHROSIS, LOCAL, PRIM, OTHER SPEC [id number] Gout GERD (gastroesophageal reflux disease) Glaucoma Resolved [...] 02/27/2011, 07/03/1993 COVID-19 vaccine series (4 - 05/17/2021 03/22/2021, 021, Booster for Pfizer series) 07/16/2020 [...] [facility] [address] [place] [address] LABORATORY-CENTRAL 2000 LABORATORY PATH TISSUE EXAM (01/21/2022 1:36 PM CDT) Component Value Ref Test Analysis Performed At [facility] gist Range Method Time Signature Case Report Pathology Report ?Case: [id number] ? 01/22/2022 REJI Authorizing Provider: ??Elva Joya MD ??Collected: ? 01/21/2022 1336 ? 8:59 AM HEALTH Ordering Location: ? [facility] LAB ?Received: ?01/21/20222056 ? CDT ANA LUISA [...] specimens. Additional 01/22/2022 [facility] Information Interpreted at [facility], Central Laboratory - [address], [place] [address] 8:59 AM HEALTH CDT LABORATORY-C ENTRCO LABORATORY Specimen Anatomical Collection Method Collection Time Receive d Time (Source) Location / / Volume Laterality Other (Stomach 01/21/2022 1:36 PM 022 8:57 Biopsy) CDT PM CDT Specimen 01/21/2022 1:36 PM 2 8:57 (specimen) CDT PM CDT (Stomach Biopsy) Elva Costa MD PATHOLOGY/CYTOLOGY Performing Organization Address City/State/ZIP Code Phon e Number [facility] [address] [place] [address] LABORATORY-CENTRAL 2000 LABORATORY from Last 3 Months Insurance Payer Benefit Plan / Subscriber ID Effective Dates Phone Addre ss Type Group MEDICARE PART B MEDICARE PART B [id number] 2005-Presen ATTN: CLAIMS - HB USE ONLY HB ONLY t [address] [facility] [place] [address] [employer] HB [id number] 2014-Present [address] [place] [address] [employer] MEDICARE [id number] 2021-Present [address] [place] [address] Care Teams Intellectual Property Lawyer Relationship Specialty Start Date End Date Ramses Cleary PCP - General Family Practice 05/29/11
--- OUTSIDE RECORDS SUMMARY | 2022-04-08 12:21 | XMS_ITS | Encounter Summary ---
:1935 Author Organization [employer] Address [address] [address] Care Team Providers Name Role Phone Unassigned, Provider Primary Care Provider Unavailable Encounter Details Date Type Department Care Team Description 08/06/2004 [facility] Bird Hewitt MD [address] [place] [address] [place] [address] [place], [place] [phone] (Wo rk) Social History Tobacco Use Types [...] on filedocumented in this encounter Care Teams Sap Portal Consultant Relationship Specialty Start Date End Date Unassigned, Provider PCP - General 12/31/06 10/20/[address] [place] [address] documented as of this encounter
--- OUTSIDE RECORDS SUMMARY | 2022-04-08 12:21 | XMS_ITS | Encounter Summary ---
:1935 Author Organization [employer] Address [address] [address] Care Team Providers Name Role Phone Unassigned, Provider Primary Care Provider Unavailable Encounter Details Date Type Department Care Team Description 08/13/2004 [facility] Ramses Burns, [address] [place] [address] [phone] [place], [place] [address] (Wo rk) Social History [...] on filedocumented in this encounter Care Teams Caramel Cutter Hand Relationship Specialty Start Date End Date Unassigned, Provider PCP - General 12/31/06 10/20/[address] [place] [address] documented as of this encounter
[2022-04-08 21:51] LABS: INR 0.98 (0.91-1.10); Prothrombin Time 13.6 Seconds
[2022-04-08 21:52] LABS: C Reactive Protein* < 0.5 mg/dL (0.5-1.0); Partial Thromboplastin Time* 34 Seconds (23-33)
[2022-04-13 01:17] LABS: ANCA IFA Pattern None Detected (None Detected); ANCA IFA Titer <1:20 (<1:20); Myeloperoxidase (MPO) Ab, IgG 0 AU/mL (0-19); Serine Proteinase 3 Ab IgG 0 AU/mL (0-19)
--- NOTE | 2022-04-28 12:36 | ONC.NURNOTE ---
Received a referral from Dr. Hernandez following cancellation of appointment by patient. He needs to be seen per ENT. Currently [facility] only has one provider that sees non-malignant heme and scheduling is out into July. Patient does not want to wait this long, so Dr. Hernandez notified that they will need to send patient to another office.
== END 2022-04-08 12:02 | disposition home or self-care (01) ==
PROVIDERS: PCP Family Medicine; Visit Provider Otolaryngology
DX: R04.2 Hemoptysis (principal); R05.9 Cough, unspecified
CPT/HCPCS: 83516; 85610; 85730; 86140; 86255

== ENCOUNTER 2022-07-07 17:21 | Outpatient (REF) | payer OTHER, SELFPAY ==
[2022-07-07 17:43] LABS: Appearance Urine Clear (Clear); Bilirubin Urine Negative (Negative); Blood Urine Trace-intact (Negative); Color Urine Yellow (Yellow); Glucose Urine Negative (Negative); Ketones Urine Negative (Negative); Leukocyte Esterase Urine Negative (Negative); Nitrite Urine Negative (Negative); Protein Urine Negative (Negative); Specific Gravity Urine 1.015 (1.000-1.030); Urobilinogen Urine 0.2 (0.2-1.0); pH Urine 5.5 (5.0-8.5)
[2022-07-07 18:28] LABS: WBC Urine 0-2 (0-5)
== END 2022-07-07 17:22 | disposition home or self-care (01) ==
LOC: LAB 17:21
PROVIDERS: PCP Family Medicine
DX: C61 Malignant neoplasm of prostate (principal); R31.9 Hematuria, unspecified; J45.901 Unspecified asthma with (acute) exacerbation
CPT/HCPCS: 36415; 81003; 81015; 84153; 87086

== ENCOUNTER 2022-07-22 12:53 | Outpatient (CLI) | payer OTHER, SELFPAY ==
[2022-07-22 14:00] LABS: Basophils Absolute Auto 0.02 K/uL (0.00-0.30); Basophils Percent Auto 0.2 % (0.0-3.0); Eosinophils Absolute Auto 0.17 K/uL (0.00-0.50); Hematocrit 45.4 % (37.0-53.0); Hemoglobin* 14.7 gm/dL (13.5-17.5); Immature Granulocytes Abs Auto 0.01 K/uL (0.00-0.30); Immature Granulocytes Pct Auto 0.1 %; Lymphocytes Absolute Auto 2.48 K/uL (0.90-2.90); Lymphocytes Percent Auto 29.2 % (20-44); Mean Corpuscular HGB Conc 32 gm/dL (32-36); Mean Corpuscular Hemoglobin 30 pg (26-34); Mean Corpuscular Volume 92 fL (80-100); Monocytes Percent Auto 10.4 % (0.0-11.0); Neutrophils Absolute Auto 4.93 K/uL (1.7-7.0); Neutrophils Percent Auto 58.1 % (42.0-72.0); Platelet Count* 234 K/uL (140-440); RDW Coefficient of Variation % 14.5 % (11.5-15.5); Red Blood Count 4.93 m/uL (4.30-5.90); White Blood Count* 8.49 K/uL (4.50-11.00)
[2022-07-22 14:06] LABS: Slide Review Reflex No
[2022-07-22 14:31] LABS: Albumin* 3.9 g/dL (3.3-5.0)
[2022-07-22 14:32] LABS: Chloride* 109 mmol/L (96-114); Sodium* 142 mmol/L (135-149)
[2022-07-22 14:34] LABS: Aspartate Amino Transferase* 31 U/L (12-35); Bilirubin Direct* 0.2 mg/dL (0.0-0.5); Bilirubin Total* 0.5 mg/dL (0.1-1.5); Blood Urea Nitrogen* 17 mg/dL (7-30); Carbon Dioxide* 27 mmol/L (20-32); Creatinine* 1.2 mg/dL (0.5-1.5); Estimated Glomerular Filt Rate 59 ml/min
[2022-07-22 14:35] LABS: Alanine Aminotransferase* 23 U/L (4-50); Alkaline Phosphatase* 75 U/L (40-150); Calcium* 8.8 mg/dL (8.4-10.6); Glucose* 96 mg/dL (60-115); Lipase* 105 U/L (23-300)
== END 2022-07-22 12:54 | disposition home or self-care (01) ==
PROVIDERS: PCP Family Medicine; Visit Provider Family Medicine
DX: R04.2 Hemoptysis (principal)
CPT/HCPCS: 80048; 80076; 83690; 85025

== ENCOUNTER 2022-09-22 16:36 | Outpatient (CLI) | payer OTHER, SELFPAY ==
[2022-09-22 23:20] LABS: SARS PCR* Negative SARS-CoV-2 (Negative)
== END 2022-09-22 16:37 | disposition home or self-care (01) ==
LOC: FBOREF 16:37
PROVIDERS: PCP Family Medicine; Visit Provider Family Medicine
DX: Z20.822 Contact with and (suspected) exposure to COVID-19 (principal); R05.9 Cough, unspecified
CPT/HCPCS: 87635

== ENCOUNTER 2022-12-26 11:40 | Outpatient (CLI) | payer OTHER, SELFPAY | END 2022-12-26 11:41 | disposition home or self-care (01) | PROVIDERS: PCP Family Medicine; Visit Provider Family Medicine | DX: E78.2 Mixed hyperlipidemia (principal); I10 Essential (primary) hypertension | CPT/HCPCS: 80048; 80061; 84460 ==

== ENCOUNTER 2023-02-09 16:44 | Outpatient (REF) | payer OTHER, SELFPAY ==
[2023-02-09 17:12] LABS: Bacteria Urine Moderate
[2023-02-09 18:18] LABS: PSA Diagnostic* 7.44 ng/mL (0.10-4.00)
== END 2023-02-09 16:45 | disposition home or self-care (01) ==
LOC: NPINS 16:44
PROVIDERS: PCP Family Medicine
DX: R31.9 Hematuria, unspecified (principal)
CPT/HCPCS: 81015; 84153; 87086; 87186

== ENCOUNTER 2023-09-22 08:02 | Outpatient (CLI) | payer OTHER, SELFPAY ==
--- OUTSIDE RECORDS SUMMARY | 2023-10-02 07:55 | XMS_ITS | Encounter Summary ---
Author Name Unknown Organization [facility] Address [address], [place] [address] Care Team Providers Care Marble Cleaner Name Role Phone Gael Damico MD Primary Care Provider Encounter Details Date Type Department Care Team (Late st Contact Info) Description 08/08/2019 Correspondence [facility] Urology [address] [place] [address] Waqas Rodney MD [address] [place] [address] [facility] WRITTEN ORDER Social History Tobacco Use Types Packs/Day Years Used Date Smoking Tobacco: Former Cigarettes Q uit: 12/24/1997 Smokeless Tobacco: Never Alcohol Use Standard Drinks/Week Comments Yes 7 (1 standard drink = 0.6 oz pur e alcohol) moderate PHQ-2 Answer Date Recorded PHQ-2 Score 0 04/20/2019 Sex and Gender Information Value Date Recorded Sex Assigned at Not on file Gender Identity Not on file Sexual Orientation Not on file documented as of this encounter Plan of Treatment Not on file documented as of this encounter Visit Diagnoses Not on filedocumented in this encounter Care Teams Marble Cleaner Relationship Specialty Start Date End Date Gael Damico MD [address] [facility] [address] PCP - General Family Practice 08/01/22 documented as of this encounter
--- OUTSIDE RECORDS SUMMARY | 2023-10-02 07:55 | XMS_ITS | Encounter Summary ---
Author Name Unknown Organization [facility] Address [address] [place] [address] Care Team Providers Care Tube Coater Name Role Phone Gael Damico MD Primary Care Provider [phone] Reason for Visit * Reason Comments ORDERS Encounter Details Date Type Department Care Team (Late st Contact Info) Description 08/31/2023 Telephone [facility] Urology [address] [place] [address] Waqas Rodney MD [address] [place] [address] ORDERS Social History Tobacco Use Types Packs/Day Years Used Date Smoking Tobacco: Former Cigarettes Q uit: 12/24/1997 Smokeless Tobacco: Never Alcohol Use Standard Drinks/Week Comments Yes 3 (1 standard drink = 0.6 oz pur e alcohol) moderate PHQ-2 Answer Date Recorded PHQ-2 Score 0 05/21/2020 Sex and Gender Information Value Date Recorded Sex Assigned at Not on file Gender Identity Not on file Sexual Orientation Not on file documented as of this encounter Nursing Notes * Deepika Arellano RN - 09/01/2023 9:[address] Rodney has signed catheter supply orders. Order forms have been faxed back to [address] [place] [address]. Deepika Arellano RN 09/01/2023, 9:01 AM Received fax confirmation that fax went through. Deepika Arellano RN 09/01/2023, 9:04 AM * Deepika Arellano RN - 08/31/2023 2:47 PM CDT Received fax from [address] [place] [address] for pt's catheter supplies. Order form has been placed on Dr. Rodney's desk for signature. Deepika Arellano RN 08/31/2023, 2:47 PM documented in this encounter Plan of Treatment Not on file documented as of this encounter Visit Diagnoses Not on filedocumented in this encounter Care Teams Tube Coater Relationship Specialty Start Date End Date Gael Damico MD [address] [place] [address] PCP - General Family Practice 08/01/22 documented as of this encounter
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
--- OUTSIDE RECORDS SUMMARY | 2023-10-02 07:55 | XMS_ITS | Encounter Summary ---
Author Name Unknown Organization [facility] Address [address] [place] [address] Care Team Providers Care Binder Lockstitch Name Role Phone Gael Damico MD Primary Care Provider Reason for Visit * Reason Comments UTI Encounter Details Date Type Department Care Team (Late st Contact Info) Description 09/21/2023 Telephone [facility] Urology [address] [place] [address] Waqas Rodney MD [address] [place] [address] UTI Social History Tobacco Use Types Packs/Day Years [...] Nursing Notes * Deepika Arellano RN - 09/21/2023 11:47 AM CDT Images from the original note were not included. Didi Amaya MD You5 minutes ago (11:41 AM) SH Agree with plan. Thank you. Val fax number was included on lab orders, to have them fax orders over as soon as possible d/t appt with Dr. Amaya tomorrow. Deepika Arellano RN 09/21/2023, 11:48 AM * Deepika Arellano RN - 09/21/2023 10:33 AM CDT Please review and advise if in agreement of plan or further recommendations. R: Recommendation: Recommended intervention: Since there are no clinic openings today. He would need to contact his PCP or have a visit with urgent care. Informed him that there are new guidelines for labs and needing a MD visit to follow. He verbalizes that he is a fpc pt of Dr. Rodney's. Pt states that he is not happy with the new process and just wants a UA and antibiotic treatment. Also unhappy that he cannot speak with Dr. Rodney directly. Pt declines going to PCP or Urgent care today. Pt has been offered a video visit with Dr. Amaya tomorrow at 3 pm. Pt will leave urine sample at [facility] lab today and video visit with Dr. Amaya tomorrow. Pt in agreement of plan and verbalizes understanding. Lab orders have been faxed to [facility] lab at [phone]. UA/UC orders have been faxed. Voiding problem S: Situation Frequency, pain, no blood in urine, has a catheter. Symptoms started 3 days ago. B: Background: Most recent Urology encounter and reason: Per visit with Dr. Rodney on 02-13-2023: A 1.no evid of progressive prostate cancer. 2.low risk prostate cancer. 3.on antibiotics for possible prostatitis (some urgency and hematuria) 4.KLEBSIELLA R ampicillin on keflex 500 BID P 1. Finish antibiotics. Increase to TID x 14 days. Ordered to his pharmacy 2.if still bleeding and or pain repeat culture and start another class of antibiotics Recent urological surgery or procedure? No Gaines/SPT? SIC 5-6 x per day Recent antibiotics? Yes -Had an antibiotic at home that he started last night. Levaquin 500 mg take1 tab daily Urologic medications? No Recent UA/UC/labs/imaging? Did a home urine test that came back positive for infection. A: Assessment: Pain: Onset: No Denies: fevers, chills,nausea, vomiting Woken up at night feeling very warm Urinary Symptoms: Burning with urination Urinary frequency/urgency- 7-8 times per day, with catheter Has a hard time smelling odor and is unable to tell if there is foul smell Urine has been valderrama Pt has been traveling back from [place] and believes that he might have gotten the infection from arestroom along the way as it was hard to keep the SIC process clean at times. Not able to urinate on his own and does SIC Able to empty his bladder with catheters Denies: urinary leakage, cloudy, hematuria, blood clots Upcoming appointments? Yes - Video visit with Dr. Amaya 09-22-2023 at 3 pm. Thank you, Deepika Arellano RN 09/21/2023, 11:09 AM * Radha Pittman - 09/21/2023 9:07 AM CDT Symptoms Describe your symptoms (if pain, include location): Frequency, pain, no blood in urine, has a catheter When did they start? 3 days ago What have you tried at home (please specify medication name, if any)? nothing Have you recently been seen for this? No Is it okay to leave a detailed message on your voicemail? Yes Is there anything else I can help you with today? no documented in this encounter Plan of Treatment Scheduled Orders Name Type Priority Associated Diagnoses Orde r Schedule UA with Microscopic: Clean Catch Lab Routine Urinary problem Expected: 09/21/2023, Expires: 12/20/2023 Urine Culture Microbiology Routine Urinary problem Expected: 09/21/2023, Expires: 12/20/2023 documented as of this encounter Visit Diagnoses Diagnosis Urinary problem- Primary Other urinary problems documented in this encounter Care Teams Binder Lockstitch Relationship Specialty Start Date End Date Gael Damico MD [address] [place] [address] PCP - General Family Practice 08/01/22 documented as of this encounter
--- OUTSIDE RECORDS SUMMARY | 2023-10-02 07:55 | XMS_ITS | Encounter Summary ---
Author Name Unknown Organization [facility] Address [address] [place] [address] Care Team Providers Care Court Security Officer Name Role Phone Gael Damico MD Primary Care Provider Reason for Visit * Reason Comments Refill Encounter Details Date Type Department Care Team (Late st Contact Info) Description 12/03/2017 Nurse Triage Careline [address] [place], [place] [id number] Unassigned, Provider [address] [place] [address] Refill Social History Tobacco Use Types Packs/Day Years Used Date Smoking Tobacco: Former Cigarettes Q uit: 12/24/1997 Smokeless Tobacco: Never Alcohol Use Standard Drinks/Week Comments Yes 7 (1 standard drink = 0.6 oz pur e alcohol) moderate Sex and Gender Information Value Date Recorded Sex Assigned at Not on file Gender Identity Not on file Sexual Orientation Not on file documented as of this encounter Nursing Notes * Rose Kyle RN - 12/04/2017 11:51 AM CDT Routed to Dr. Ott Care Team. Rose Kyle RN 12/04/2017, 11:51 AM * Shruthi Alcantar - 12/04/2017 8:39 AM CDT Called and spoke with pt. He is confused why Dr. Feldman didn't want to fill the script. I tried to explain that these scripts are filled by the primary provider. Pt would like to know if he needs to continue with this medication and should he have a lipid check. Shruthi Alcantar CMA 12/04/2017 8:45 AM * Lenka Quinn, RN - 12/03/2017 7:29 PM CDT Patient/med care manager request: Input needed Medication Specific Request: See situation note below Clinician route to Flag for care team/Care team pool as patient is expecting a call back. Verified patient identity using three identifiers: Yes Situation/Background (brief explanation of current symptoms/situation): Pt requesting refill of Pravastatin. Chart reviewed, refilled request started 11/28/17 and still pt has not received refill or any notice from clinic. Reviewed with patient pertinent medical history(as it related to the call): Yes Reviewed with patient pertinent medications (as they relate to call): Yes Reason for Disposition ??? Caller requesting a refill, no triage required, and triager able to refill per unit policy Protocols used: MEDICATION QUESTION [id number] Plan: Pravastatin 30 day/no refills ordered per standing order and sent to [facility] Advised patient/caller to call back CareLine if symptoms get worse or if you have any further questions or concerns. The CareLine is available 05/01. Lenka Quinn RN 12/03/2017, 7:58 PM * Mine Carroll - 12/03/2017 7:17 PM CDT Verified patient identity using three identifiers: Yes Caller's relationship to patient: Self At which care system or clinic is the patient normally seen? [facility] Medication Questions/New Med Request/ Side Effects What medication are you calling about (name and/or type)? pravastatin (PRAVACHOL) 40 MG tablet What is your question/concern? Did not have this refilled, he is completely out Are you experiencing any symptoms? No Plan: The current callback time to speak with a nurse is 60 min. If your symptoms change or worsen,or if you have not received a call back in the stated timeframe, please call us back documented in this encounter Plan of Treatment Not on file documented as of this encounter Visit Diagnoses Not on filedocumented in this encounter Care Teams Court Security Officer Relationship Specialty Start Date End Date Gael Damico MD [address] [place] [address] PCP - General Family Practice 08/01/22 documented as of this encounter
--- OUTSIDE RECORDS SUMMARY | 2023-10-02 07:55 | XMS_ITS | Encounter Summary ---
Author Name Unknown Organization [facility] Address [address], [place] [address] Care Team Providers Care Geographic Analyst Name Role Phone Gael Damico MD Primary Care Provider [phone] Encounter Details Date Type Department Care Team (Late st Contact Info) Description 01/07/2017 Consent for Procedure/Treatme [facility], Provider [facility] CONSENT FOR SURGERY OR PROCEDURE Social History Tobacco Use Types Packs/Day Years [...] on filedocumented in this encounter Care Teams Geographic Analyst Relationship Specialty Start Date End Date Gael Damico MD [address] [place] [address] PCP - General Family Practice 08/01/22 documented as of this encounter
--- OUTSIDE RECORDS SUMMARY | 2023-10-02 07:55 | XMS_ITS | Clinical Summary ---
Author Name Unknown Organization [facility] Address [place], [place] [address] Care Team Providers Care Mva Reactor Operator Head Name Role Phone Ramses Cleary Primary Care Provider Anh brito Allergies Active Allergy Reactions Criticality Noted Date Comments Acetaminophen-Caffeine 11/26/2009 Excedrin Banana *Unknown,Other - Describe In Comment Field 08/01/2013 Throat swelling, wheezing ? Also avoids melons, Throat swelling, wheezing ? Also avoids melons, Bee Pollen *Unknown,Other - Describe In Comment Field 12/31/2020 Itchy watery eyes, wheezing Itchy watery eyes, wheezing Levofloxacin *Unknown,Other - Describe In Comment Field 02/26/2018 Hamstring tendonitis Hamstring tendonitis Mold Shortness Of Breath,Dyspnea High 04/28/2018 Watermelon Anaphylaxis High 08/28/2017 Medications Medication Sig Dispensed Refills Start Date End Date Status montelukast (SINGULAIR) 10 mg tablet Take 1 tablet by mouth at bedtime. 0 12/24/2009 Active cholecalciferol (VITAMIN D) 1,000 unit capsule Take 1 capsule by mouth once daily. 0 12/28/2009 Active acetaminophen (TYLENOL EXTRA STRENGTH) 500 mg tablet Take 2 tablets by mouth 2 times daily. Max acetaminophen dose: 4000mg in 24 hrs. 0 09/18/2010 Active fluticasone (FLOVENT DISKUS) 100 mcg/Actuation inhaler Inhale 1 Puff by mouth 2 times daily. 1 Inhaler 1 05/29/2011 Active omeprazole (PRILOSEC) 20 mg capsule TAKE 1 CAPSULE BY MOUTH TWICE DAILY 180 capsule 1 06/30/2011 Active allopurinol (ZYLOPRIM) 100 mg tablet TAKE 1 TABLET BY MOUTH EVERY DAY 90 tablet 0 02/23/2012 Active vit A/vit C/vit E/zinc/copper (ICAPS AREDS ORAL) Take by mouth. Ac tive albuterol HFA (PRO-AIR; VENTOLIN; PROVENTIL) 90 mcg/actuation inhaler INHALE 2 PUFFS BY MOUTH EVERY 4 TO 6 HOURS NEEDED FOR SHORTNESS OF BREATH OR WHEEZING 06/13/2022 Active dorzolamide-timolo L (COSOPT) 2-0.5 % ophthalmic solution Place 1 Drop into both eyes two times daily. 10/14/2022 Active Advair Diskus 250-50 mcg/dose diskus inhaler Inhale 1 Puff by mouth two times daily. 09/29/2022 Active albuterol-ipratrop ium (DUONEB) (2.5-0.5 mg) in 3 mL NEBULIZATION solution USE 3 ML VIA NEBULIZER EVERY 6 HOURS NEEDED FOR WHEEZING 06/20/2022 Active pravastatin (PRAVACHOL) 40 mg tablet Take 40 mg by mouth once daily. 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 02/09/1998 ORCHITIS/EPIDIDYMITIS NOS 06/15/1993 IRRITABLE COLON-POSSIBLE UNSPEC. COLITIS, L . 07/16/1989 NEAR DROWNING/NONFATAL SUBME RSION-SALT WATER/MULT. INJURIES. 09/10/1988 ASTHMA NOS W/O STATUS ASTHMATICUS RHINITIS, ALLERGIC NOS POLYP, NASAL CAVITY REFLUX, ESOPHAGEAL OSTEOARTHROSIS, LOCAL, PRIM, OTHER SPEC SITE-C-S PINE Gout GERD (gastroesophageal reflux disease) Glaucoma Resolved Problems Problem Noted Date Diagnosed Date Resolved Date Prostate cancer 10/01/2010 12/30/2011 BPH (benign prostatic hypertrophy) 01/10/2010 12/30/2011 Enlarged prostate 12/27/2009 12/30/2011 PAIN, ABDOMINAL, EPIGASTRIC 09/08/2001 12/30/2011 DIARRHEA 09/08/2001 12/30/2011 PREOPERATIVE EXAMINATION 06/29/2001 COUGH-CHRONIC , STABLE. NEG BRONCH/ENT EVAL. 10/14/200 1 12/30/2011 HME-EXAMINATION, ROUTINE MEDICAL 06/20/1999 12/30/2011 DYSPNEA, RESPIRATORY ABNORMA LITY, NEC-ELLIOTT/ ? DECONDITIONING/ 11/06/1998 12/30/2011 EXAMINATION, PREOPERATIVE NOS 01/10/1997 12/30/2011 See problem list document fo r additional problems 08/10/1996 12/30/[address] ABLE. 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 Asthma 12/30/2011 Allergic rhinitis 12/30/2011 Hearing loss 12/30/2011 Immunizations Name Administration Dates Next Due Influenza, High-dose Inactivated 02/28/2011 Influenza, IIV3 (Age >=3 years) 03/21/20,03/21/2008,04/10/2005,2003,05/10/2001 Pneumococcal Poly,23-Valent (Pneumovax) 09/22/2007,10/21/1995 Td (Age >=7 Years) 07/03/1993 Tdap 02/27/2011 Family History Medical History Relation Name Comments Genetic Other 1 see list;no kno wn gb disease Genetic Other 2 see list;no kno wn gb disease~Bro w. ca of laryngx/nodes. Genetic Other 3 see list;no kno wn gb disease~Bro w. ca of laryngx/nodes.- bro lung ca. Genetic Other 4 Bro w. ca of la ryngx/nodes.- bro lung ca.~Family Hx of HX, FAMILY, MALIGNANCY, GI TRACT-FAT. COLON CA. (ICD-V16.0)~Family Hx of HX, FAMILY, MALIGNANCY NOS-FAT W. PROS CA. (ICD-V16.9)~Family Hx of HX, FAMILY, CARDIOVASCULAR DISEASE NEC-MOT (ICD-V1* Genetic Other 5 Bro w. ca of la ryngx/nodes.- bro lung ca.~Mot w. lung ca, . ~Family Hx of HX, FAMILY, MALIGNANCY, GI TRACT-FAT. COLON CA. (ICD-V16.0)~Family Hx of HX, FAMILY, MALIGNANCY NOS-FAT W. PROS CA. (ICD-V16.9)~Family Hx of HX, FAMILY, CARDIOVASCULAR * Genetic Other 6 Bro w. ca of la ryngx/nodes.- bro lung ca.~Mot w. lung ca, . ~Family Hx of HX, FAMILY, MALIGNANCY, GI TRACT-FAT. COLON CA. (ICD-V16.0)~Family Hx of HX, FAMILY, MALIGNANCY NOS-FAT W. PROS CA. (ICD-V16.9)~Family Hx of HX, FAMILY, CARDIOVASCULAR * Relation Name Status Comments Father (Age 85) pneumonia Mother (Age 90) lung cance r Other 1 Other 2 Other 3 Other 4 Other 5 Other 6 Social History Tobacco Use Types Packs/Day Years Used Date Smoking Tobacco: Never Smokeless Tobacco: Never Tobacco Cessation:Counseling Given: Not Answered Comments:Smoking History Packs/day: o Alcohol Use Standard Drinks/Week Comments Yes 0 (1 standard drink = 0.6 oz pur e alcohol) moderate Social Connections Answer Date Recorded Frequency of Communication with Friends and Fami ly Not on file 11/19/2021 Sex and Gender Information Value Date Recorded Sex Assigned at Not on file Gender Identity Not on file Sexual Orientation Not on file Obstetrics History Last Filed Vital Signs Vital Sign Reading Time Taken Comments Blood Pressure 112/76 10/27/2022 1:20 PM CDT Pulse 72 10/27/2022 1:20 PM CDT Temperature 36.6 ??C (97.8 ??F) 01/07/2012 8:29 AM CD T Respiratory Rate 16 01/23/2012 7:38 AM CDT Oxygen Saturation 98% 01/07/2012 8:29 AM CDT Inhaled Oxygen Concentration - - Weight 118.4 kg (261 lb) 01/07/2012 8:29 AM CDT Height 175.3 cm (5' 9) 01/07/2012 8:29 AM CDT Body Mass Index 38.54 01/07/2012 8:29 AM CDT Plan of Treatment Upcoming Encounters Date Type Department Care Team (Late st Contact Info) Description 10/07/2023 11:30 AM CDT Office Visit [facility] [address] [place] [address] Ruy Tate, AuD [address] [place] [address] 11/25/2023 10:30 AM CDT Office Visit [facility] [address] [place] [address] Alejandra Dominguez PA [address] [place], [place] [id number] Health Maintenance Due Date Last Done Comments Depression screening for age 12+ 1947 BMI (ht and wt on same day) for age 18+ 1953 Zoster (shingles) series for age 50+ (1 of 2) 1985 Medicare Wellness for age 65+ 2000 Pneumococcal series for age 65+ (2 of 2 - PCV) 09/21/2008 09/22/2007, 10/21/1995 Tetanus booster 02/27/2021 02/27/2011, 07/03/1993 COVID-19 vaccine series (2022-24 season) 2023 07/10/2022, 12/24/2021, 03/22/2021, Additional history exists Influenza for age 65+ 02/14/2024 02/28/2011 , 03/21/2010, 03/21/2008, Additional history exists Tdap Completed 02/27/2011 Care Teams Mva Reactor Operator Head Relationship Specialty Start Date End Date Ramses Cleary PCP - General Family Practice 05/29/11
--- OUTSIDE RECORDS SUMMARY | 2023-10-02 07:55 | XMS_ITS | Encounter Summary ---
Author Name Unknown Organization [facility] Address [address], [place] [address] Care Team Providers Care Flame Cutting Machine Operator Helper Name Role Phone Gael Damico MD Primary Care Provider Encounter Details Date Type Department Care Team (Late st Contact Info) Description 10/08/2016 Scanned History [facility] [address] [place] [address] [facility], Provider LV MRI SAFETY AND HEALTH QUESTIONNAIRE Social History Tobacco Use Types Packs/Day Years [...] on filedocumented in this encounter Care Teams Flame Cutting Machine Operator Helper Relationship Specialty Start Date End Date Gael Damico MD [address] [place] [address] PCP - General Family Practice 08/01/22 documented as of this encounter
--- OUTSIDE RECORDS SUMMARY | 2023-10-02 07:55 | XMS_ITS | Encounter Summary ---
Author Name Unknown Organization [facility] Address [address] [address] Care Team Providers Care Pharmacy Services Representative Name Role Phone Gael Damico MD Primary Care Provider Encounter Details Date Type Department Care Team (Late st Contact Info) Description 07/23/2018 Correspondence [facility] Urology [address] [place] [address] Waqas Rodney MD [address] [place] [address] SMG ORDER Social History Tobacco Use Types Packs/Day [...] on filedocumented in this encounter Care Teams Pharmacy Services Representative Relationship Specialty Start Date End Date Gael Damico MD [address] [place] [address] PCP - General Family Practice 08/01/22 documented as of this encounter
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
--- OUTSIDE RECORDS SUMMARY | 2023-10-02 07:55 | XMS_ITS | Encounter Summary ---
Author Name Unknown Organization [facility] Address [address] [address] Care Team Providers Care Harvest Worker Field Crop Name Role Phone Gael Damico MD Primary Care Provider Encounter Details Date Type Department Care Team (Late st Contact Info) Description 09/15/2017 Correspondence [facility] Urology [address] [place] [address] Waqas Rodney MD [address] [place] [address] [facility] Social History Tobacco Use Types Packs/Day Years [...] on filedocumented in this encounter Care Teams Harvest Worker Field Crop Relationship Specialty Start Date End Date Gael Damico MD [address] [place] [address] PCP - General Family Practice 08/01/22 documented as of this encounter
--- OUTSIDE RECORDS SUMMARY | 2023-10-02 07:55 | XMS_ITS | Encounter Summary ---
Author Name Unknown Organization [facility] Address [address] [place] [address] Care Team Providers Care Special Projects Coordinator Name Role Phone Gael Damico MD Primary Care Provider Encounter Details Date Type Department Care Team (Late st Contact Info) Description 10/28/2016 Consent for Procedure/Treatme nt Same Day Surgery [address] [place] [address] [id number] [facility], Provider [facility] CONSENT Social History Tobacco Use Types Packs/Day Years [...] filedocumented in this encounter Care Teams Special Projects Coordinator Relationship Specialty Start Date End Date Gael Damico MD [address] [place] [address] PCP - General Family Practice 08/01/22 documented as of this encounter
--- OUTSIDE RECORDS SUMMARY | 2023-10-02 07:55 | XMS_ITS | Encounter Summary ---
Author Name Unknown Organization [facility] Address [address] [place] [address] Care Team Providers Care Switching Clerk Name Role Phone Gael Damico MD Primary Care Provider Encounter Details Date Type Department Care Team (Late st Contact Info) Description 10/28/2016 Scanned History [facility] [address] [place] [address] [facility], Provider [place] MRI SAFETY AND HEALTH QUESTIONNAIRE [...] on filedocumented in this encounter Care Teams Switching Clerk Relationship Specialty Start Date End Date Gael Damico MD [address] [place] [address] PCP - General Family Practice 08/01/22 documented as of this encounter
--- OUTSIDE RECORDS SUMMARY | 2023-10-02 07:55 | XMS_ITS | Encounter Summary ---
Author Name Unknown Organization [facility] Address [address] [place] [address] Care Team Providers Care Pit Operator Name Role Phone Gael Damico MD Primary Care Provider Encounter Details Date Type Department Care Team (Late st Contact Info) Description 09/16/2017 Scanned History External to Transferred Record, Provider [facility] Social History Tobacco Use Types Packs/Day Years [...] on filedocumented in this encounter Care Teams Pit Operator Relationship Specialty Start Date End Date Gael Damico MD [address] [place] [address] PCP - General Family Practice 08/01/22 documented as of this encounter
--- OUTSIDE RECORDS SUMMARY | 2023-10-02 07:56 | XMS_ITS | Encounter Summary ---
Author Name Unknown Organization [facility] Address [address] [place] [address] Care Team Providers Care Employment Clerk Name Role Phone Gael Damico MD Primary Care Provider Encounter Details Date Type Department Care Team (Late st Contact Info) Description 12/31/2006 Consent for Procedure/Treatme nt [facility] [address] [facility] [address] Mark Boyd MD [address] [place] [address] CONSENT FOR DIAGNOSTIC PROCEDURE Social History Tobacco Use Types Packs/Day Years Used Date Smoking Tobacco: Former Cigarettes Q uit: 12/24/1997 Alcohol Use Standard Drinks/Week Comments Not Asked 0 (1 standard drink = 0.6 oz pur e alcohol) Sex and Gender Information Value Date Recorded Sex Assigned at Not on file Gender Identity Not on file Sexual Orientation Not on file documented as of this encounter Progress Notes * Mark Boyd - 12/31/2006 12:00 AM CDT documented in this encounter Plan of Treatment Not on file documented as of this encounter Visit Diagnoses Not on filedocumented in this encounter Care Teams Employment Clerk Relationship Specialty Start Date End Date Gael Damico MD [address] [place] [address] PCP - General Family Practice 08/01/22 documented as of this encounter
--- OUTSIDE RECORDS SUMMARY | 2023-10-02 07:56 | XMS_ITS | Encounter Summary ---
Author Name Unknown Organization [facility] Address [address] [place] [address] Care Team Providers Care Cryptographic Clerk Name Role Phone Gael Damico MD Primary Care Provider Encounter Details Date Type Department Care Team (Late st Contact Info) Description 06/18/2007 Consent for Procedure/Treatme nt [facility] [address] [facility] [place] [address] Mark Boyd MD [address] [place] [address] CONSENT FOR PROCEDURE Social History Tobacco Use Types Packs/Day [...] encounter Progress Notes * Mark Boyd - 06/18/2007 12:00 AM SHIFT STACKER T STACKER documented in this encounter Plan of Treatment Not on file documented as of this encounter Visit Diagnoses Not on filedocumented in this encounter Care Teams Cryptographic Clerk Relationship Specialty Start Date End Date Gael Damico MD [address] [place] [address] PCP - General Family Practice 08/01/22 documented as of this encounter
--- OUTSIDE RECORDS SUMMARY | 2023-10-02 07:56 | XMS_ITS | Referral Summary ---
Author Name Unknown Organization [facility] Address [address] [place] [address] Care Team Providers Care Senior Net Application Developer Name Role Phone Elsewhere, Pcp Primary Care Provider Unavailabl e Source Comments Patient records contain information from all sites at [facility]. For routine questions regarding patient records, call [phone] during business hours, M-F 8:00 AM - 5:00 PM Central Time. Record requests for emergency care only can be directed to [phone] at any time.[facility] Allergies Active Allergy Reactions Criticality Noted Date Comments Acetaminophen-Caffeine Anaphylaxis 06/21/2007 Excedrin Excedrin Aspirin-Acetaminophen- Caffeine Anaphylaxis High 01/16/2016 Banana Other (see comments) 08/01/2013 Throat swelling, wheezing Also avoids melons, Bee Pollen Other (see comments) 12/31/2020 Itchy watery eyes, wheezing Food Allergy Formula Edema (Reselect Reaction) 12/31/2020 Musk melon, water melon Levofloxacin Other (see comments) 02/26/2018 Hamstring tendonitis Mold Shortness of breath (Reselect Reaction) High 04/28/2018 [place] Anaphylaxis High 08/28/2017 Watermelon Anaphylaxis High 08/28/2017 Medications Medication Sig Dispensed Refills Start Date End Date Status acetaminophen (TYLENOL) 500 mg tablet Take 2 tablets by mouth. 09/18/2010 Active diphenhydrAMINE-acetam inophen (TYLENOL PM) 25-500 mg per tablet Take 2 tablets by mouth at bedtime. Active albuterol 90 mcg/actuation inhaler Inhale 2 puffs every 4 (four) hours as needed. 02/09/2014 Active allopurinoL (ZYLOPRIM) 100 mg tablet Take 1 tablet by mouth daily. 02/23/2012 Active cholecalciferol (VITAMIN D3) 25 mcg (1,000 Unit) capsule Take 1 capsule by mouth daily. 12/28/2009 Active cyanocobalamin (VITAMIN B12) 1,000 mcg/mL injection Inject 1,000 mcg intramuscularly. 03/01/2018 Active docosahexaenoic acid-epa 120-180 mg capsule Take 1 g by mouth. Active dorzolamide (TRUSOPT) 2 % ophthalmic solution 1 drop. 09/18/2010 Active fluticasone propion-salmeteroL (Advair HFA) 45-21 mcg/actuation inhaler Inhale 1 puff. 09/16/2016 Active fluticasone propionate (FLOVENT DISKUS) 100 mcg/actuation diskus inhaler Inhale 1 puff 2 (two) times a day. 05/29/2011 Active montelukast (SINGULAIR) 10 mg tablet Take 10 mg by mouth. 12/24/2009 Active omeprazole (PriLOSEC) [address] capsule TAKE ONE CAPSULE BY MOUTH TWICE DAILY ONE HOUR BEFORE MEALS 06/30/2011 Active pravastatin (PRAVACHOL) 40 mg tablet Take 1 tablet by mouth at bedtime. 06/13/2021 Active NON FORMULARY Take 1 tablet by mouth. Pseudoephedrine-gu aiFENesin (MUCINEX D OR) Active vit A/vit C/vit E/zinc/copper (ICAPS AREDS ORAL) Take by mouth. Active ibuprofen (ADVIL,MOTRIN) 400 mg tablet Take 400 mg by mouth every 6 (six) hours as needed for pain. Active Active Problems Problem Noted Date Diagnosed Date Chronic Obstructive Pulmonary Disease 01/28/2022 Social History Tobacco Use Types Packs/Day Years Used Date Smoking Tobacco: Former Cigarettes Q uit: 06/15/1989 Smokeless Tobacco: Never Tobacco Cessation:Counseling Given: Not Answered Alcohol Use Standard Drinks/Week Comments Yes 3 (1 standard drink = 0.6 oz pur e alcohol) Humiliation, Afraid, Rape, and Kick questionnair e Answer Date Recorded Within the last year, have y ou been afraid of your partner or ex-partner? No 02/21/2022 Within the last year, have y ou been humiliated or emotionally abused in other ways by your partner or ex-partner? No Within the last year, have y ou been kicked, hit, slapped, or otherwise physically hurt by your partner or ex-partner? No 02/21/2022 Within the last year, have y ou been raped or forced to have any kind of sexual activity by your partner or ex-partner? No 02/21/2022 Social Connection and Isolat ion Panel [NHANES] Answer Date Recorded In a typical week, how many times do you talk on the phone with family, friends, or neighbors? More than three times a week 02/21/2022 How often do you get togethe r with friends or relatives? Twice a week 02/21/2022 How often do you attend [facility] or sikhism services? Patient declined 02/21/2022 Do you belong to any clubs o r organizations such as protestant groups, unions, fraternal or athletic groups, or school groups? No 02/21/2022 How often do you attend meet ings of the clubs or organizations you belong to? Never 02/21/2022 Are you , , di vorced, , never , or living with a partner? 02/21/2022 AUDIT-C Answer Date Recorded Q1: How often do you have a drink containing alc ohol? 2-4 times a month 02/21/2022 Q2: How many drinks containi ng alcohol do you have on a typical day when you are drinking? 1 or 2 02/21/2022 Q3: How often do you have si x or more drinks on one occasion? Never 02/21/2022 Overall Financial Resource Strain (CARDIA) Answe r Date Recorded How hard is it for you to pa y for the very basics like food, housing, medical care, and heating? Not hard at all 02/21/2022 [facility] [place] [facility] Occupat ional Health - Occupational Stress Questionnaire Answer Date Recorded Do you feel stress - tense, restless, nervous, or anxious, or unable to sleep at night because your mind is troubled all the time - these days? Only a little 02/21/2022 Exercise Vital Sign Answer Date Recorde d On average, how many days pe r week do you engage in moderate to strenuous exercise (like a brisk walk)? 1 day 02/21/2022 On average, how many minutes do you engage in exercise at this level? 10 min 02/21/2022 Hunger Vital Sign Answer Date Recorded Within the past 12 months, y ou worried that your food would run out before you got the money to buy more. Never true 02/22/20 22 Within the past 12 months, t he food you bought just didn't last and you didn't have money to get more. Never true 02/21/2022 PRAPARE - Transportation Answer Date Re corded In the past 12 months, has l ack of transportation kept you from medical appointments or from getting medications? No 02/2022 In the past 12 months, has l ack of transportation kept you from meetings, work, or from getting things needed for daily living? No 02/21/2022 Housing Stability Vital Sign Answer Mitesh e Recorded In the last 12 months, was t here a time when you were not able to pay the mortgage or rent on time? No 02/21/2022 In the last 12 months, how many places have you lived? 1 02/21/2022 In the last 12 months, was t here a time when you did not have a steady place to sleep or slept in a alf (including now)? No 02/21/2022 Nutrition Answer Date Recorded Nutrition: EVOO Fat Source No 02/21 On average, how many serving s of fruits and vegetables do you eat per day (serving size is equal to 1 cup or approximately the size of a tennis ball)? 2-3 02/21/2022 Dental Answer Date Recorded Dental: Regular Dentist Yes 02/19/20 Employment Answer Date Recorded Employment status Retired 02/21/2022 Education Answer Date Recorded What is the highest level of school you have completed or the highest degree you have received? Professional school degree (e.g., MD, DDS, DVM, KIMO) 02/18/2022 Sex and Gender Information Value Date Recorded Sex Assigned at Male 02/18/2022 8:06 PM CDT Gender Identity Male 02/18/2022 8:06 PM CDT Sexual Orientation Straight 02/18/2022 8: 06 PM CDT Last Filed Vital Signs Vital Sign Reading Time Taken Comments Blood Pressure 146/73 05/02/2022 10:23 AM METAL HANGER Pulse 76 05/02/2022 10:23 AM METAL HANGER Temperature 36.8 ??C (98.3 ??F) 05/02/2022 10:[address] Respiratory Rate 12 01/28/2022 11:00 AM CDT Oxygen Saturation 96% 01/28/2022 11:00 AM CDT Inhaled Oxygen Concentration - - Weight 107 kg (234 lb 12.6 oz) 05/02/2022 10:23 AM METAL HANGER Height 166.5 cm (5' 5.55) 05/02/2022 10:[address] Body Mass Index 38.42 05/02/2022 10:23 AM METAL HANGER Plan of Treatment Not on file Medical Devices Implanted Type Area Centrex Radio Operator Device Identifier Shelf Expiration Date Model / Serial / Lot Knee Implant Knee Implant Left: Knee Care Teams Senior Net Application Developer Relationship Specialty Start Date End Date Elsewhere, Pcp PCP - General Internal Medicine 01/22/22 Gael Mcguire [facility] Primary Team Environmental Technician 01/22/22
--- OUTSIDE RECORDS SUMMARY | 2023-10-02 07:56 | XMS_ITS | Encounter Summary ---
Author Name Unknown Organization [facility] Address [address] [place] [address] Care Team Providers Care Xerox Machine Mechanic Name Role Phone Gael Damico MD Primary Care Provider [phone] Encounter Details Date Type Department Care Team (Late st Contact Info) Description 01/05/2012 Consent for Procedure/Treatme nt [facility] [address] [place] [address] [facility], Provider LV MRI SAFETY SCREENING CONSENT Social History Tobacco Use Types Packs/Day [...] as of this encounter Progress Notes * [facility], Provider - 01/05/2012 12:00 AM CDT documented in this encounter Plan of Treatment Not on file documented as of this encounter Visit Diagnoses Not on filedocumented in this encounter Care Teams Xerox Machine Mechanic Relationship Specialty Start Date End Date Gael Damico MD [address] [place] [address] PCP - General Family Practice 08/01/22 documented as of this encounter
--- OUTSIDE RECORDS SUMMARY | 2023-10-02 07:56 | XMS_ITS | Encounter Summary ---
Author Name Unknown Organization [facility] Address [address] [place] [address] Care Team Providers Care Sample Selector Name Role Phone Gael Damico MD Primary Care Provider Encounter Details Date Type Department Care Team (Late st Contact Info) Description 07/22/2013 Consent for Procedure/Treatme nt [facility] [address] [place] [id number] [facility], Provider [place] CONSENT FOR CONTRAST Social History Tobacco Use Types Packs/Day Years [...] as of this encounter Progress Notes * [facility], Provider - 07/22/2013 12:00 AM CST 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
--- OUTSIDE RECORDS SUMMARY | 2023-10-02 07:56 | XMS_ITS | Encounter Summary ---
Author Name Unknown Organization [facility] Address [address] [place] [address] Care Team Providers Care Horse Buyer Name Role Phone Gael Damico MD Primary Care Provider Encounter Details Date Type Department Care Team (Late st Contact Info) Description 08/04/2013 Consent for Procedure/Treatme nt Same Day Surgery [address] [place] [address] [facility], Provider [facility] [place] INFORMED CONSENT Social History Tobacco Use Types [...] as of this encounter Progress Notes * [facility], Provider - 08/04/2013 12:00 AM CST NT [place] MAINTENANCE documented in this encounter Plan of Treatment Not on file documented as of this encounter Visit Diagnoses Not on filedocumented in this encounter Care Teams Horse Buyer Relationship Specialty Start Date End Date Gael Damico MD [address] [place] [address] PCP - General Family Practice 08/01/22 documented as of this encounter
--- OUTSIDE RECORDS SUMMARY | 2023-10-02 07:56 | XMS_ITS ---
Author Name Unknown Organization [facility] Address [address] [place] [id number] Care Team Providers Care Investment Trader Name Role Phone Unavailable Unavailable Unavailable Surgery Details Not on file Complications Check Surgery Details section. Procedure Estimated Blood Loss Check Surgery Details section. Procedure Findings Check Surgery Details section. Procedure Specimens Taken Check Surgery Details section.
--- OUTSIDE RECORDS SUMMARY | 2023-10-02 07:56 | XMS_ITS | Clinical Summary ---
Author Name Unknown Organization [facility] Address [address] [place] [address] Care Team Providers Care Reel Winder Name Role Phone Elsewhere, Pcp Primary Care Provider Unavailabl e Source Comments Patient records contain information from all sites at [facility]. For routine questions regarding patient records, call [phone] during business hours, M-F 8:00 AM - 5:00 PM Central Time. Record requests for emergency care only can be directed to [phone] at any time.[facility] Allergies Active Allergy Reactions Criticality Noted Date [...] Shortness of breath (Reselect Reaction) High 04/28/2018 [place] Anaphylaxis High 08/28/2017 Watermelon Anaphylaxis High 08/28/2017 [...] week 02/21/2022 How often do you attend [facility] or [facility]? Patient declined 02/21/2022 Do you belong to any clubs o r organizations such as oriental orthodox groups, unions, fraternal or athletic groups, or [...] and heating? Not hard at all 02/21/2022 [facility] [place] [facility] - Occupational Stress [...] slept in a group home (including now)? No 02/21/2022 Nutrition Answer Date [...] Comments Blood Pressure 146/73 05/02/2022 10:23 AM FILM CREW MEMBER Pulse 76 05/02/2022 10:23 AM FILM CREW MEMBER Temperature 36.8 ??C (98.3 ??F) 05/02/2022 10:[address] Respiratory Rate 12 01/28/2022 11:00 AM CDT Oxygen Saturation 96% 01/28/2022 11:00 AM CDT Inhaled Oxygen Concentration - - Weight 107 kg (234 lb 12.6 oz) 05/02/2022 10:23 AM FILM CREW MEMBER Height 166.5 cm (5' 5.55) 05/02/2022 10:[address] Body Mass Index 38.42 05/02/2022 10:23 AM FILM CREW MEMBER Plan of Treatment Health Maintenance Due Date Last Done Comments DTaP,Tdap,and Td Vaccines (2 - Td or Tdap) 02/27/2021 02/27/2011 COVID-19 Vaccine (2022-2 4 season) 2023 07/10/2022, 12/24/2021, 03/22/2021, Additional history exists Influenza Vaccine (#1) 2023 , 05/01/2020, 04/20/2019, Additional history exists Depression Screening (Annual PHQ-2) 06/15/2023 Fall Risk Screen (Annual) 06/15/2023 Zoster Vaccines Completed 02/26/2018, 06/2017, 04/01/2013 Pneumococcal vaccine (65+ years) Completed 12/26/2022, 03/25/2016, 09/22/2007, Additional history exists Medical Devices Implanted Type Area Staff Development Manager Device Identifier Shelf Expiration Date Model / Serial / Lot Knee Implant Knee Implant Left: Knee Care Teams Reel Winder Relationship Specialty Start Date End Date Elsewhere, Pcp PCP - General Internal Medicine 01/22/22 Gael Mcguire Primary Team Evaluation Assistant 01/22/22
--- OUTSIDE RECORDS SUMMARY | 2023-10-02 07:56 | XMS_ITS | Encounter Summary ---
Author Name Unknown Organization [facility] Address [address] [place] [address] Care Team Providers Care Dynamics Ax Consultant Name Role Phone Gael Damico MD Primary Care Provider Encounter Details Date Type Department Care Team (Late st Contact Info) Description 10/29/2015 Consent for Procedure/Treatme nt [facility] IP Svc [address] [place] [address] [facility], Provider [facility] CONSENT Social History Tobacco Use Types [...] on filedocumented in this encounter Care Teams Dynamics Ax Consultant Relationship Specialty Start Date End Date Gael Damico MD [address] [place] [address] PCP - General Family Practice 08/01/22 documented as of this encounter
--- OUTSIDE RECORDS SUMMARY | 2023-10-02 07:56 | XMS_ITS | Encounter Summary ---
Author Name Unknown Organization [facility] Address [address] [place] [address] Care Team Providers Care Clam Shovel Operator Name Role Phone Gael Damico MD Primary Care Provider [phone] Encounter Details Date Type Department Care Team (Late st Contact Info) Description 03/25/2016 Correspondence Travel and Tropical Medicine [address] [facility] [place] [address] Wandy Goff PA-C [address] [place], [place] [id number] [facility] PAYMENT AGREEMENT WAIVER Social History Tobacco Use Types Packs/Day Years [...] on filedocumented in this encounter Care Teams Clam Shovel Operator Relationship Specialty Start Date End Date Gael Damico MD [address] [place] [address] PCP - General Family Practice 08/01/22 documented as of this encounter
== END 2023-09-22 08:03 | disposition home or self-care (01) ==
LOC: NFLDREF 10-02 07:53
PROVIDERS: PCP Family Medicine; Referring Provider Family Medicine; Visit Provider Family Medicine
DX: R30.0 Dysuria (principal)
CPT/HCPCS: 81001; 87086

== ENCOUNTER 2023-12-01 13:39 | Emergency (ER) | payer OTHER, SELFPAY ==
[2023-12-01] VITALS (17 sets, daily range): BP systolic 162–168; BP diastolic 90–108; PULSE 62–80; RESP 18; TEMP 36.6; O2SAT 93–98; BMI 35.0
--- NOTE | 2023-12-01 13:56 | ED.GENADULT ---
HPI - General Adult General Chief complaint: Unspecified Complaint, Adult Stated complaint: Sweating, weakness Time Seen by Provider: 12/01/23 13:56 History of Present Illness HPI narrative: Patient reports episode just prior to arrival where he suddenly became sweaty and nauseous. He now reports not having these symptoms aside from slight headache . He had an identical episode on Thursday after sitting outside for some time and so thought he was having heat stroke, however with second episode today he felt he should be evaluated. Denies chest pain, SOB, vertigo or neuro deficit 88 year old man presenting with spouse to the emergency department following an episode where was a suddenly feeling diaphoretic and nauseated. Does not report sense of arrhythmia. No fever. Was in usual state of health. 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 He did not have chest pain. There is no dizziness or actual lightheadedness. No loss of sensation or focal weakness. Concerning though was 2 days prior having been outside for a while, had a similar episode. Past it off in some ways thinking that he had been having ?heat stroke?. Is not anticoagulated. Related Data Home Medications ?Medication ?Instructions ?Recorded ?Confirmed acetaminophen 500 mg tablet 1,000 mg PO BID PRN 06/20/22 12/28/23 (Tylenol Extra Strength) montelukast 10 mg tablet 10 mg PO QDAY 06/20/22 12/28/23 dorzolamide 22.3 mg-timolol 6.8 1 drp ophthalmic (eye) BID 07/22/22 12/28/23 mg/mL eye drops guaifenesin [Mucinex] 1 tab PO BID 09/22/22 12/28/23 vit C 250 mg-vit E 200 unit-zinc 1 tab PO BID 12/26/22 12/28/23 12.5 mg-copper 1 [id number] tablet (ICaps AREDS2 (copper citrate)) chlorhexidine gluconate 0.12 % 15 ml PO QDAY 12/28/23 12/28/23 mouthwash diclofenac sodium 1 % topical gel 2 g topical QDAY PRN 12/28/23 12/28/23 neomycin 3.5 mg/g-polymyxin B 0.5 inch ophthalmic (eye) QHS 12/28/23 12/28/23 10,000 unit/g-dexameth 0.1 % eye oint Previous Rx's ?Medication ?Instructions ?Recorded albuterol sulfate 90 mcg/actuation 2 puff inhalation Q4-6H PRN 06/13/22 aerosol inhaler shortness of breath or wheezing #8.5 grams ipratropium 0.5 mg-albuterol 3 mg 3 ml inhalation Q6H PRN wheezing 06/20/22 (2.5 mg base)/3 mL nebulization #90 mL soln nebulizers #1 ea 06/27/22 allopurinol 100 mg tablet 100 mg PO QDAY #90 tabs 11/05/23 omeprazole 20 mg capsule,delayed 20 mg PO BID #180 caps 12/25/23 release hydroxyzine HCl 25 mg tablet 25 mg PO QID PRN itching #30 tabs 12/28/23 oxycodone 5 mg tablet 5 mg PO TID PRN pain #20 tabs 12/28/23 prednisone 20 mg tablet 10 - 40 mg (0.5 - 2 x 20 mg) PO 12/28/23 QDAY #14 tabs pregabalin 50 mg capsule (Lyrica) 50 mg PO BID #20 caps 01/05/24 Allergies Allergy/AdvReac Type Severity Reaction Status Date / Time acetaminophen Allergy Severe Anaphylaxis Verified 12/28/23 13:55 [From Excedrin Extra Strength] aspirin Allergy Severe Anaphylaxis Verified 12/28/23 13:55 [From Excedrin Extra Strength] banana Allergy Severe Anaphylaxis Verified 12/28/23 13:55 walnut Allergy Severe Anaphylaxis Verified 12/28/23 13:55 watermelon Allergy Severe Anaphylaxis Verified 12/28/23 13:55 levofloxacin [From Levaquin] Allergy Unknown Hamstring Verified 12/28/23 13:55 Tendonitis Review of Systems Status of ROS: Reports: 6 or more systems reviewed and unremarkable except as noted in History and below [facility] Medical History Mixed hyperlipidemia ?E78.2 - Mixed hyperlipidemia (ICD-10) History of gout ?Z87.39 - Personal history of other diseases of the musculoskeletal system and connective tissue (ICD-10) Primary hypertension ?I10 - Essential (primary) hypertension (ICD-10) Primary open angle glaucoma (POAG) ?H40.1190 - Primary open-angle glaucoma, unspecified eye, stage unspecified (ICD-10) Age-related macular degeneration ?H35.30 - Unspecified macular degeneration (ICD-10) History of prostate cancer ?Z85.46 - Personal history of malignant neoplasm of prostate (ICD-10) Chronic cough ?R05.3 - Chronic cough (ICD-10) History of TIA (transient ischemic attack) (11/2021) ?Z86.73 - Personal history of transient ischemic attack (TIA), and cerebral infarction without residual deficits (ICD-10) 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 - Vertebro-basilar artery syndrome (ICD-10) Hemoptysis (10/2021) ?R04.2 - Hemoptysis (ICD-10) GERD (gastroesophageal reflux disease) ?K21.9 - Gastro-esophageal reflux disease without esophagitis (ICD-10) Surgical History History of repair of right rotator cuff ?Z98.890 - Other specified postprocedural states (ICD-10) History of tonsillectomy ?Z90.89 - Acquired absence of other organs (ICD-10) History of back surgery ?Z98.890 - Other specified postprocedural states (ICD-10) History of phacoemulsification of cataract of both eyes with intraocular lens implantation ?Z98.41 - Cataract extraction status, right eye (ICD-10) ?Z98.42 - Cataract extraction status, left eye (ICD-10) ?Z96.1 - Presence of intraocular lens (ICD-10) History of esophagogastroduodenoscopy (EGD) (01/21/22) ?Z98.890 - Other specified postprocedural states (ICD-10) History of basal cell carcinoma (BCC) (2005) ?Z85.828 - Personal history of other malignant neoplasm of skin (ICD-10) History of transurethral resection of prostate ?Z98.890 - Other specified postprocedural states (ICD-10) ?Z90.79 - Acquired absence of other genital organ(s) (ICD-10) History of bronchoscopy (01/28/22) ?Z98.890 - Other specified postprocedural states (ICD-10) History of total left knee replacement ?Z96.652 - Presence of left artificial knee joint (ICD-10) Family History Father Colon cancer Prostate cancer Coronary artery disease 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 NAD. Cranial nerves 2-12 intact. Pupils are equal and brisk. Speaking fluidly. Oropharynx is moist. Neck is supple. Head is atraumatic. Lungs are clear. Heart in regular rate and rhythm. Well-perfused peripherally. No significant edema. Moving all extremities without difficulty. Const: Vital Signs, click to edit/add: Vital Signs - 24 hr 12/01/23 13:48 12/01/23 13:49 12/01/23 14:00 Temperature 98 F Pulse Rate 70 70 Pulse Rate [Pulse Oximeter] 71 Pulse Rate [orthos tatic sitting] Pulse Rate [orthos tatic standing] Respiratory Rate 18 Blood Pressure Blood Pressure [Ri ght Upper Arm] 168/99 H Blood Pressure [or thostatic sitting] Blood Pressure [or thostatic standing ] Pulse Oximetry 98 98 97 Oxygen Delivery Me thod Room Air 12/01/23 14:15 12/01/23 14:21 12/01/23 15:00 Temperature Pulse Rate 68 65 Pulse Rate [Pulse Oximeter] Pulse Rate [orthos tatic sitting] Pulse Rate [orthos tatic standing] Respiratory Rate Blood Pressure Blood Pressure [Ri ght Upper Arm] Blood Pressure [or thostatic sitting] Blood Pressure [or thostatic standing ] Pulse Oximetry 97 97 96 Oxygen Delivery Me thod 12/01/23 15:15 12/01/23 15:24 12/01/23 15:25 Temperature Pulse Rate 63 68 68 Pulse Rate [Pulse Oximeter] Pulse Rate [orthos tatic sitting] Pulse Rate [orthos tatic standing] Respiratory Rate Blood Pressure 162/90 H Blood Pressure [Ri ght Upper Arm] Blood Pressure [or thostatic sitting] Blood Pressure [or thostatic standing ] Pulse Oximetry 94 96 97 Oxygen Delivery Me thod 12/01/23 15:30 12/01/23 15:45 12/01/23 16:00 Temperature Pulse Rate 70 62 68 Pulse Rate [Pulse Oximeter] Pulse Rate [orthos tatic sitting] Pulse Rate [orthos tatic standing] Respiratory Rate Blood Pressure Blood Pressure [Ri ght Upper Arm] Blood Pressure [or thostatic sitting] Blood Pressure [or thostatic standing ] Pulse Oximetry 93 98 96 Oxygen Delivery Me thod 12/01/23 16:15 12/01/23 16:38 12/01/23 16:39 Temperature Pulse Rate 67 70 75 Pulse Rate [Pulse Oximeter] Pulse Rate [orthos tatic sitting] Pulse Rate [orthos tatic standing] Respiratory Rate Blood Pressure 165/95 H Blood Pressure [Ri ght Upper Arm] Blood Pressure [or thostatic sitting] Blood Pressure [or thostatic standing ] Pulse Oximetry 97 96 96 Oxygen Delivery Me thod 12/01/23 16:41 12/01/23 16:43 Temperature Pulse Rate Pulse Rate [Pulse Oximeter] Pulse Rate [orthos tatic sitting] 77 Pulse Rate [orthos tatic standing] 80 Respiratory Rate Blood Pressure 164/108 H Blood Pressure [Ri ght Upper Arm] Blood Pressure [or thostatic sitting] 165/95 H Blood Pressure [or thostatic standing ] 164/108 H Pulse Oximetry [facility] has reviewed patient's vital signs: yes Course Vital Signs Vital signs: Initial Vital Signs Pulse Rate 70 12/01/23 13:48 Pulse Oximetry 98 12/01/23 13:48 Vital Signs Pulse Rate 70 12/01/23 13:48 Pulse Oximetry 98 12/01/23 13:48 Temperature 98 F 12/01/23 13:49 Pulse Rate 77 12/01/23 16:43 Respiratory Rate 18 12/01/23 13:49 Blood Pressure 165/95 H 12/01/23 16:43 Pulse Oximetry 96 12/01/23 16:39 Oxygen Delivery Method Room Air 12/01/23 13:49 Medications Administered Medications: Discontinued Medications Generic Name Dose Route Start Last Admin Trade Name Freq PRN Reason Stop Dose Admin Sodium Chloride 1,000 mls @ 1,000 mls/hr 12/01/23 14:22 12/01/23 16:30 0.9 % Sodium Chloride 1000 Ml IV 12/01/23 15:21 Infused .Q1H ONE Infusion Medical Decision Making MDM Narrative Medical decision making narrative: Appears well at this time. This could have been presyncopal possibly orthostatic type event or arrhythmia or TIA though is absent symptoms at this time. Could have been triggered by some gastrointestinal discomfort. Blood pressure is somewhat elevated on arrival. Perhaps infectious etiology. Check urine as well. Did initiate IV hydration and screening labs. With with transient symptoms I think up on contrasted head CT is unlikely to be of benefit. Orthostatics were done and unremarkable. These were however done after a L of fluids. Otherwise well during time of observation Spouse increasingly desiring to leave. I did discuss potential further evaluation with head and neck imaging but this was deferred. See patient discharge plan for further discussion Medical Records Medical records reviewed: Yes I reviewed the patient's medical records Lab Data Lab results reviewed: Yes I reviewed the patient's lab results Labs: Lab Results 12/01/23 12/01/23 12/01/23 Range/Units 13:58 14:23 14:40 WBC 7.24 (4.50-11.00) K/uL RBC 4.67 (4.30-5.90) m/uL Hgb 13.1 L (13.5-17.5) gm/dL Hct 41.3 (37.0-53.0) % MCV 88 (80-100) fL MCH 28 (26-34) pg MCHC 32 (32-36) gm/dL RDW Coeff of Rcicket 16.5 H (11.5-15.5) % Plt Count 230 (140-440) K/uL Neut % (Auto) 53.3 (42.0-72.0) % Lymph % (Auto) 34.5 (20-44) % [place] % (Auto) 8.8 (0.0-11.0) % Eos % (Auto) 3.0 (0.0-7.0) % Baso % (Auto) 0.3 (0.0-3.0) % Neut # (Auto) 3.85 (1.7-7.0) K/uL Lymph # (Auto) 2.50 (0.90-2.90) K/uL [place] # (Auto) 0.60 (0.00-0.90) K/UL Eos # (Auto) 0.22 (0.00-0.50) K/uL Baso # (Auto) 0.02 (0.00-0.30) K/uL Abs Immat Gran (auto) 0.01 (0.00-0.30) K/uL Imm/Tot Granulo (auto) 0.1 % Sodium 140 (135-149) mmol/L Potassium 4.1 (3.6-5.1) mmol/L Chloride 109 (96-114) mmol/L Carbon Dioxide 24 (20-32) mmol/L Anion Gap 7 (7-15) mEq/L BUN 15 (7-30) mg/dL Creatinine 1.0 (0.5-1.5) mg/dL Estimated Creat Clear 49.40 Estimated GFR 72 ml/min Glucose 100 (60-115) mg/dL Lactate 1.4 (0.5-1.9) mmol/L Calcium 8.5 (8.4-10.6) mg/dL Magnesium 2.1 (1.5-2.6) mg/dL Total Bilirubin 0.6 (0.1-1.5) mg/dL Direct Bilirubin 0.3 (0.0-0.5) mg/dL AST 28 (12-35) U/L ALT 21 (4-50) U/L Alkaline Phosphatase 72 (40-150) U/L Troponin I < 0.01 L (0.01-0.04) ng/mL C-Reactive Protein < 0.5 L (0.5-1.0) mg/dL NT-Pro-B Natriuret Pep 383 pg/mL Total Protein 7.4 (6.0-8.3) g/dL Albumin 4.2 (3.3-5.0) g/dL Urine Color Dark yellow (Yellow) Urine Appearance Clear (Clear) Urine pH 5.5 (5.0-8.5) Ur Specific [place] 1.015 (1.000-1.030) Urine Protein Negative (Negative) Urine Glucose (UA) Negative (Negative) Urine Ketones Negative (Negative) Urine Blood Negative (Negative) Urine Nitrite Negative (Negative) Urine Bilirubin Negative (Negative) Urine Urobilinogen 0.2 (0.2-1.0) Ur Leukocyte Esterase Negative (Negative) Urine RBC 0-2 (0-2) Urine WBC 0-2 (0-5) Ur Squamous Epith Cells None (None-Few) Urine Bacteria None (None) Ethyl Alcohol < 0.01 L (0.01-0.03) % POC Troponin I 0.00 L (0.01-0.04) ng/ml ECG Data Attestation: I personally reviewed and interpreted this ECG as follows: (Normal sinus rhythm rate of 70. No evidence of ischemic changes here. Quite good EKG.) Discharge Plan Discharge Clinical Impression: Pre-syncope Patient Disposition: Home w/ Parent or Adult Condition: Improved Additional Instructions: As labs come back in,as we have more conversation, I think you may have been close to passing out for 1 reason or another. I have not been able to determine a cardiac cause here. You do have a TIA history reported. Records also seemed indicate a history of vertebral basilar artery syndrome. I would follow-up with your primary care provider or neurology to discuss this further. May want to do repeat vascular imaging of your head and neck at this point. Recommendations usually would be to take a low-dose aspirin. Without access to other old records it is harder for me to make recommendations in this regard. You did test well with regard to your orthostatics today, though this is after 1 L of IV fluids. If this happens again, please feel free to return to the emergency department. Stay well-hydrated. Still take good care with transitions. As your was asking; you can start soaking your toe if you like. Prescriptions: No Action albuterol sulfate 90 mcg/actuation HFA aerosol inhaler 2 puff inhalation Q4-6H PRN (Reason: shortness of breath or wheezing) Qty: 8.5 0RF montelukast 10 mg tablet 10 mg PO QDAY Patient Comments: TAKE 1 TABLET BY MOUTH EVERY DAY dorzolamide-timolol 22.3-6.8 mg/mL drops 1 drp ophthalmic (eye) BID Patient Comments: INSTILL 1 DROP IN BOTH EYES THREE TIMES DAILY guaifenesin [Mucinex] 1 tab PO BID acetaminophen [Tylenol Extra Strength] 500 mg tablet 1,000 mg PO BID PRN ipratropium-albuterol 0.5 mg-3 mg(2.5 mg base)/3 mL solution for nebulization 3 ml inhalation Q6H PRN (Reason: wheezing) Qty: 90 2RF ICaps AREDS2 (copper citrate) 250 mg-200 unit -12.5 mg-1 mg tablet 1 tab PO BID neomycin-polymyxin B-dexameth 3.5 mg/g-10,000 unit/g-0.1 % ointment 0.5 inch ophthalmic (eye) QHS Patient Comments: [NO ORIGINAL SIG] chlorhexidine gluconate 0.12 % mouthwash 15 ml PO QDAY diclofenac sodium 1 % gel 2 g topical QDAY PRN prednisone 20 mg tablet 10 - 40 mg PO QDAY Qty: 14 0RF Rx Instructions: 2 QD x 4 days, 1 QD x 4 days, 1/2 QD x 4 days hydroxyzine HCl 25 mg tablet 25 mg PO QID PRN (Reason: itching) Qty: 30 0RF oxycodone 5 mg tablet 5 mg PO TID PRN (Reason: pain) Qty: 20 0RF (DME) nebulizers Misc See Rx Instructions .Route Qty: 1 0RF Rx Instructions: As directed allopurinol 100 mg tablet 100 mg PO QDAY Qty: 90 0RF omeprazole 20 mg capsule,delayed release(DR/EC) 20 mg PO BID Qty: 180 0RF pregabalin [Lyrica] 50 mg capsule 50 mg PO BID Qty: 20 0RF Follow Up/Referrals: Gael Damico MD [Primary Care Provider] - Stand Alone Forms: MyHealth Info Instructions
--- NOTE | 2023-12-01 14:21 | CRLHL7_ITS ---
For Patients: As a result of the Cures Act, medical imaging exams and procedure reports are released immediately into your electronic medical record. You may view this report before your referring provider. If you have questions, please contact your health care provider. INDICATION: Presyncopal episodes. TECHNIQUE: CT head without contrast. COMPARISON: None. FINDINGS: Mild generalized volume loss. [id number] ill-defined low attenuation in the periventricular and subcortical white matter. 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 Intracranial atherosclerosis. There is no mass effect or midline shift. No hydrocephalus. No CT evidence of acute hemorrhage or infarction. No abnormal extra-axial fluid collection. Bone windows show no acute calvarial fracture. Paranasal sinuses and orbits as imaged are unremarkable. IMPRESSION: 1. No acute intracranial abnormality. 2. Generalized volume loss and changes of chronic small vessel ischemic disease. Dictated by Gonzalez Galaviz MD @ 12/01/2023 3:03:33 PM Please note that all CT scans at this facility use dose modulation, iterative reconstruction, and/or weight-based dosing when appropriate to reduce radiation dose to as low as reasonably achievable. Dictated by: Gonzalez Galaviz MD @ 12/01/2023 15:03:42 (Electronically Signed)
[2023-12-01 14:29] LABS: Lactate* 1.4 mmol/L (0.5-1.9)
[2023-12-01 14:32] LABS: Basophils Absolute Auto 0.02 K/uL (0.00-0.30); Basophils Percent Auto 0.3 % (0.0-3.0); Eosinophils Absolute Auto 0.22 K/uL (0.00-0.50); Hematocrit 41.3 % (37.0-53.0); Hemoglobin* 13.1 gm/dL (13.5-17.5); Immature Granulocytes Abs Auto 0.01 K/uL (0.00-0.30); Immature Granulocytes Pct Auto 0.1 %; Lymphocytes Percent Auto 34.5 % (20-44); Mean Corpuscular HGB Conc 32 gm/dL (32-36); Mean Corpuscular Hemoglobin 28 pg (26-34); Mean Corpuscular Volume 88 fL (80-100); Monocytes Percent Auto 8.8 % (0.0-11.0); Neutrophils Absolute Auto 3.85 K/uL (1.7-7.0); Neutrophils Percent Auto 53.3 % (42.0-72.0); Platelet Count* 230 K/uL (140-440); RDW Coefficient of Variation % 16.5 % (11.5-15.5); Red Blood Count 4.67 m/uL (4.30-5.90); Slide Review Reflex No; White Blood Count* 7.24 K/uL (4.50-11.00)
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
--- OUTSIDE RECORDS SUMMARY | 2023-12-01 14:33 | XMS_ITS | Encounter Summary ---
Author Organization [facility] Address [address] [place] [address] Care Team Providers Care Salon Coordinator Name Role Phone Gael Damico MD Primary Care Provider Encounter Details Date Type Department Care Team (Late st Contact Info) Description 08/08/2019 Correspondence [facility] Urology [address] [place] [address] Waqas Rodney MD [address] [place] [address] [facility] [employer] WRITTEN ORDER Social History Tobacco [...] on filedocumented in this encounter Care Teams Salon Coordinator Relationship Specialty Start Date End Date Gael Damico MD [address] [address] PCP - General Family Practice 08/01/22 documented as of this encounter
--- OUTSIDE RECORDS SUMMARY | 2023-12-01 14:33 | XMS_ITS | Clinical Summary ---
Author Organization [facility] Address [address] [address] Phone Care Team Providers Care Department Coordinator Name Role Phone Gael Damico MD Primary Care Provider Camron Ohara MD Unavailable [phone] Allergies Active Allergy Reactions Criticality Noted Date Comments Excedrin Extra Strength Anaphylaxis High 11/14/2023 Medications Medication Sig Dispensed Refills Start Date End Date Status montelukast (Singulair) 10 MG tablet Take 10 mg by mouth every evening. Active pravastatin (Pravachol) 40 MG tablet Take 40 mg by mouth one time a day. Active allopurinol (Zyloprim) 100 MG tablet Take 100 mg by mouth one time a day. Active omeprazole (PriLOSEC) 20 MG delayed-release capsule Take 20 mg by mouth two times a day. Take before meals. Do not crush. Active fluticasone-salmeterol (Advair Diskus) 100-50 MCG/ACT aerosol powder, breath activated Inhale 1 Puff into the lungs every 12 hours. Rinse mouth after each use. Active dorzolamide-timolol (Cosopt) 2-0.5 % ophthalmic solution 1 Drop every 12 hours. Active Acetaminophen (Tylenol) 325 MG capsule Take 500 mg by mouth two times a day. Two tabs PRN for pain Active guaifenesin (Mucus Relief Chest Congestion) 400 MG Tablet Take 400 mg by mouth one time a day. Active Encounters Date Type Department Care Team Description 11/14/2023 9:30 AM CDT Ancillary Procedure [facility] RADIOLOGY [address] [place] [address] 11/14/2023 9:10 AM CDT - 11/14/2023 10:52 AM CDT Emergency [facility] EMERGENCY DEPARTMENT [address] [place] [address] William Redmond MD Closed nondisplaced fracture of distal phalanx of left great toe, initial encounter (Primary Dx); Laceration of left great toe without foreign body with damage to nail, initial encounter Discharge Disposition: Home and/or Self Care 11/14/2023 Travel from Last 3 Months Social History Tobacco Use Types Packs/Day Years Used Date Smoking Tobacco: Never Assessed EH IP Custom IPV Answer Date Recorded Do you feel UNSAFE in any of your personal relationships with your family members or any other acquaintances? No 2023 Sex and Gender Information Value Date Recorded Sex Assigned at Not on file Gender Identity Not on file Sexual Orientation Not on file Job Start Date Occupation Industry Not on file Not on file Not on file Last Filed Vital Signs Vital Sign Reading Time Taken Comments Blood Pressure 122/55 11/14/2023 9:13 AM CDT Pulse 74 11/14/2023 9:13 AM CDT Temperature 36.7 ??C (98.1 ??F) 11/14/2023 9:13 AM CD T Respiratory Rate 16 11/14/2023 9:13 AM CDT Oxygen Saturation 97% 11/14/2023 9:13 AM CDT Inhaled Oxygen Concentration - - Weight 106.7 kg (235 lb 3.2 oz) 11/14/2023 9:13 AM CDT Height 172.7 cm (5' 8) 11/14/2023 9:13 AM CDT Body Mass Index 35.76 11/14/2023 9:13 AM CDT Plan of Treatment Health Maintenance Due Date Last Done Comments PERTUSSIS (Standing Order) 1954 TETANUS (Standing Order) 1954 Shingrix (Zoster recombinant ) vaccine (Standing Order) (1 of 2) 1985 RSV Vaccination (60+ yrs) (Abrysvo/Arexvy) (1 - 1-dose 60+ series) 1995 Pneumococcal Vaccine: 65+ yr s (Standing Order) (1 of 1 - PCV) 2000 Influenza Vaccine Seasonal (Standing Order) (Season Ended) 2024 HPV Vaccine (Standing Order) Aged Out No longer eligible based on patient's age to complete this topic Hepatitis B Vaccine (Standin g Order) Aged Out No longer eligible b ased on patient's age to complete this topic Procedures Procedure Name Priority Date/Time Associated Diagnosis Comments ED LACERATION REPAIR 11/14/2023 10:08 AM CDT Laceration of left great toe without foreign body with damage to nail, initial encounter XR TOE OR TOES LEFT 2 OR MORE VIEWS STAT 11/14/2023 9:39 AM CDT from Last 3 Months Results * Laceration Repair (11/14/2023 10:08 AM CDT) Narrative William Redmond MD - 11/14/2023 10:08 AM CDT William Redmond MD ? 11/14/2023 10:09 AM Laceration Repair Date/Time: 11/14/2023 10:08 AM Performed by: William Redmond MD Authorized by: William Redmond MD ?? Anesthesia: ??Anesthesia method: ??Local infiltration ??Local anesthetic: ??Lidocaine 1% w/o epi Laceration details: ??Location: ??Toe ??Toe location: ??L big toe ??Length (cm): ??2 Repair type: ??Repair type: ??Simple Treatment: ??Area cleansed with: ??Saline ??Amount of cleaning: ??Standard ??Irrigation solution: ??Sterile saline Skin repair: ??Repair method: ??Sutures ??Suture size: ??4-0 ??Suture material: ??Nylon ??Suture technique: ??Simple interrupted ??Number of sutures: ??2 William Redmond MD NW PROCEDURE ORDERAB LES * XR TOE OR TOES LEFT 2 OR MORE VIEWS (11/14/2023 9:39 AM CDT) Anatomical Region Laterality Modality Foot Radiographic Amee ging 11/14/2023 9:39 AM CDT Narrative 11/14/2023 9:56 AM CDT This document is currently in Final Status Exam EXAM: XR TOE OR TOES LEFT 2 OR MORE VIEWS HISTORY: Toe injury, pain. ?? COMPARISON: None. IMPRESSION: Irregular lucency through the first distal phalanx is nonspecific but could reflect a nondisplaced fracture. Soft tissue swelling about the first digit. Moderate first MTP and IP joint degenerative changes. Dictated By: Michael Cuevas MD 11/14/2023 9:41 AM Edited By: TT 11/14/2023 9:49 AM Electronically Signed: Michael Cuevas MD 11/14/2023 9:56 AM Procedure Note Michael Cuevas MD - 11/14/2023 This document is currently in Final Status Exam EXAM: XR TOE OR TOES LEFT 2 OR MORE VIEWS HISTORY: Toe injury, pain. COMPARISON: None. IMPRESSION: Irregular lucency through the first distal phalanx isnonspecific but could reflect a nondisplaced fracture. Soft tissueswelling about the first digit. Moderate first MTP and IP jointdegenerative changes. Dictated By: Michael Cuevas MD 11/14/2023 9:41 AM Edited By: TT 11/14/2023 9:49 AM Electronically Signed: Michael Cuevas MD 11/14/2023 9:56 AM William Redmond MD [facility] DIAGNOSTIC IMAGIN G ORDERABLES from Last 3 Months Care Teams Department Coordinator Relationship Specialty Start Date End Date Gael Damico MD [facility] [address] [place] [phone] PCP - General Family Medicine 11/14/23 Camron Ohara MD [address] [place] [address] Podiatry 11/14/23
--- OUTSIDE RECORDS SUMMARY | 2023-12-01 14:33 | XMS_ITS | Encounter Summary ---
Author Organization [facility] Address [address], [place] [address] Care Team Providers Care Circus Rider Name Role Phone Gael Damico MD Primary Care Provider Reason for Visit * Reason Comments ORDERS Encounter Details Date Type Department Care Team (Late st Contact Info) Description 08/31/2023 Telephone [facility] Urology [address] [place] [address] Waqas Rodney MD [address] [place] [address] ORDERS Social History Tobacco Use Types Packs/Day [...] Order forms have been faxed back to [address] [place] [address]. Deepika Arellano RN 09/01/2023, 9:01 AM Received fax confirmation that fax went through. Deepika Arellano RN 09/01/2023, 9:04 AM * Deepika Arellano RN - 08/31/2023 2:47 PM CDT Received fax from [address] [place] [address] for pt's catheter supplies. Order form has been placed on Dr. Rodney's desk for signature. Deepika Arellano RN 08/31/2023, 2:47 PM documented in this encounter Plan of Treatment Not on file documented as of this encounter Visit Diagnoses Not on filedocumented in this encounter Care Teams Circus Rider Relationship Specialty Start Date End Date Gael Damico MD [address] [place] [address] PCP - General Family Practice 08/01/22 documented as of this encounter
--- OUTSIDE RECORDS SUMMARY | 2023-12-01 14:33 | XMS_ITS | Encounter Summary ---
Author Organization [facility] Address [address] [address] Phone Care Team Providers Care Bun Icer Name Role Phone Gael Damico MD Primary Care Provider [phone] Camron Ohara MD Unavailable [phone] Encounter Details Date Type Department Care Team (Late st Contact Info) Description 11/14/2023 9:30 AM CDT Ancillary Procedure [facility] RADIOLOGY [address] [place] [phone] Social History Tobacco Use Types Packs/Day Years [...] file Not on file Not on file documented as of this encounter Plan of Treatment Not on file documented as of this encounter Procedures Procedure Name Priority Date/Time Associated Diagnosis Comments XR TOE OR TOES LEFT 2 OR MORE VIEWS STAT 11/14/2023 9:39 AM CDT documented in this encounter Results * XR TOE OR TOES LEFT 2 [...] Redmond MD [facility] DIAGNOSTIC IMAGIN G ORDERABLES documented in this encounter Visit Diagnoses Not on filedocumented in this encounter Care Teams Bun Icer Relationship Specialty Start Date End Date Gael Damico MD [facility] & [address] [phone] PCP - General Family Medicine 11/14/23 Camron Ohara MD [address] [place] [address] Podiatry 11/14/23 documented as of this encounter
--- OUTSIDE RECORDS SUMMARY | 2023-12-01 14:33 | XMS_ITS | Clinical Summary ---
Author Organization [facility] Address [address] [address] Care Team Providers Care Air Defense Control Officer Name Role Phone Gael Damico MD Primary Care Provider [phone] Source Comments You are receiving this document [...] for each transition of care or referral. [employer] Allergies Active Allergy Reactions Criticality Noted Date [...] MCG/ACT nasal solutionIndications :Allergic Rhinitis Place 1 [place] into both nostrils two times a day. [...] Frequency Start Date End Date Status cyanocobalamin ([id number]) injection 1,000 mcgIndications:Vitamin B12 deficiency (HRC) 1000 [...] vessel 11/16/2016 Overview: Right side, branches of GREEN MARKETER. High intensity statin therapy indicated for stroke prevention. 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 MRA shows right GREEN MARKETER branch stenosis. Increased ASA to 325 mg [...] Type Department Care Team Description 09/21/2023 Telephone [facility] Urology [address] [place] [address] Waqas Rodney MD UTI 08/31/2023 Telephone [facility] Urology [address] [place] [address] Waqas Rodney MD ORDERS from Last 3 Months Immunizations Name Administration Dates Next Due Flu Vac (3+ yrs) 07/10/2017, 0,03/21/2008, 005,04/09/2004,05/10/2001 HepA Adult (19+ yrs) 03/25/2016 Influenza IIV3 (Trivalent) F luzone Highdose, 65+ Yrs (701[address]) 05/01/2020,04/20/2019,02/26/2018, 016,02/28/2011 Influenza IIV4 (Quadrivalent ) Fluzone, [...] 2023 07/10/2022, 12/24/2021, 03/22/2021, Additional history exists Medicare Annual Wellness Visit 06/15/2023 05/21/2020, 04/20/2019, 02/26/2018, Additional history exists Influenza (Season Ended) 02/14/202404/09/2 021, 05/01/2020, 05/01/2020, Additional history exists Zoster/Shingles Completed 02/26/2018, 06/2017, [...] on patient's age to complete this topic [address] [id number] Ziad Rutledge Personal/Family Self 1935 [address] [facility] [address] [place] [address] Zaid Rutledge Personal/Family Self 1935 [address] [address] [place] [address] Zaid Rutledge Personal/Family Self 1935 [address] [facility] [address] [place] [address] Zaid Rutledge Personal/Family Self 1935 [address] [facility] [address] [place] [address] Zaid Rutledge Personal/Family Self 1935 [address] [facility] [address] [place] [address] Zaid Rutledge Personal/Family Self 1935 [address] [facility] [address] [place] [address] Zaid Rutledge Personal/Family Self 1935 [address] [facility] [address] [address] Advance Directives * Full Code (Latest Code [...] 1:22 PM 10/30/2015 3:38 PM Care Teams Air Defense Control Officer Relationship Specialty Start Date End Date Gael Damico MD [address] [place] [address] PCP - General Family Practice 08/01/22
--- OUTSIDE RECORDS SUMMARY | 2023-12-01 14:33 | XMS_ITS | Clinical Summary ---
Author Organization [facility] Address [place], [place] [address] Care Team Providers Care Tobacco Stemmer Name Role Phone Ramses Cleary Primary Care Provider Unavailbindu e Allergies Active Allergy Reactions Criticality Noted Date [...] 12/30/2011 Hearing loss 12/30/2011 Encounters Date Type Department Care Team Description 10/20/2023 Telephone [facility] [address] [place] [address] Ruy Tate, Jacky Questions 10/07/2023 11:30 AM CDT Office Visit [facility] [address] [place] [address] Ruy Tate, AuD Hearing Aid 10/07/2023 Telephone [facility] [address] [place] [address] Ruy Tate, AuD 10/07/2023 Travel from Last 3 Months Immunizations Name Administration [...] booster 02/27/2021 02/27/2011, 07/03/1993 COVID-19 vaccine series (2022- season) 2023 07/10/2022, 12/24/2021, 03/22/2021, Additional history exists Influenza for age 65+ 02/14/2024 02/28/2011 , 03/21/2010, 03/21/2008, Additional history exists Tdap Completed 02/27/2011 Care Teams Tobacco Stemmer Relationship Specialty Start Date End Date Ramses Cleary PCP - General Family Practice 05/29/11
--- OUTSIDE RECORDS SUMMARY | 2023-12-01 14:33 | XMS_ITS | Encounter Summary ---
Author Organization [facility] Address [address] [address] Phone Care Team Providers Care Costume Draper Name Role Phone Gael Damico MD Primary Care Provider [phone] Camron Ohara MD Unavailable [phone] Reason for Visit * Reason Comments Toe Injury Encounter Details Date Type Department Care Team (Late st Contact Info) Description 11/14/2023 9:10 AM CDT - 11/14/2023 10:52 AM CDT Emergency [facility] [address] [place] [address] William Redmond MD [address] [place] [address] Closed nondisplaced fracture of distal phalanx of left great toe, initial encounter (Primary Dx); Laceration of left great toe without foreign body with damage to nail, initial encounter Discharge Disposition: Home and/or Self Care Social History Tobacco Use Types Packs/Day Years [...] Mass Index 35.76 11/14/2023 9:13 AM CDT documented in this encounter Discharge Instructions * Discharge Instructions* William Redmond MD - 11/14/2023 10:07 AM CDT 1. Wear the walking boot at all times when moving around to help with stability of your toe. I would use the walker with this boot versus a cane. 2. Change the dressing daily. 3. Make an appointment to follow-up with your local sawmill moulder operator in 7 to 10 days to have the sutures removed and to follow-up on the toe fracture * Attachments The following attachments cannot be sent through Care Everywhere. * Laceration, All Closures (American) documented in this encounter Medications at Time of Discharge Medication Sig Dispensed Refills Start Date End Date montelukast (Singulair) 10 MG tablet Take 10 mg by mouth every evening. pravastatin (Pravachol) 40 MG tablet Take 40 mg by mouth one time a day. allopurinol (Zyloprim) 100 MG tablet Take 100 mg by mouth one time a day. omeprazole (PriLOSEC) 20 MG delayed-release capsule Take 20 mg by mouth two times a day. Take before meals. Do not crush. fluticasone-salmeterol (Advair Diskus) 100-50 MCG/ACT aerosol powder, breath activated Inhale 1 Puff into the lungs every 12 hours. Rinse mouth after each use. dorzolamide-timolol (Cosopt) 2-0.5 % ophthalmic solution 1 Drop every 12 hours. Acetaminophen (Tylenol) 325 MG capsule Take 500 mg by mouth two times a day. Two tabs PRN for pain guaifenesin (Mucus Relief Chest Congestion) 400 MG Tablet Take 400 mg by mouth one time a day. documented as of this encounter Discharge Disposition Disposition Code Departure Means Destination Home and/or Self Mcfp documented in this encounter ED Notes * William Redmond MD - 11/14/2023 9:27 AM CDTAssociated Order(s): Laceration Repair Post-Procedure Diagnose(s): Laceration of left great toe without foreign body with damage to nail, initial encounter Images from the original note were not included. Patient: Zaid Rutledge Means of Arrival: Car Chief Complaint: Toe Injury History of Present Illness: HPI 88-year-old male comes in with a left toe injury. Patient was getting out of the shower last night and then stubbed his toe or got it caught on the floor something. He thinks that the nail broke and then dug into the skin and he had a fair amount of bleeding. It bled most the night, I think he lost about a pint of blood. Patient is not feeling dizzy or lightheaded though. Bleeding has stopped this morning though. It hurts to walk on it or move it. He is worried it is broken. Patient is not on any blood thinners. Review of Systems All other systems reviewed and are negative. Allergies Allergen Reactions Excedrin Extra Strength Anaphylaxis Prior to Admission Medication List Med List Status: Completed by Nurse Set By: Jacqui Bautista RN at 11/14/2023 9:33 AM Acetaminophen (Tylenol) 325 MG capsule Take 500 mg by mouth two times a day. Two tabs PRN for pain allopurinol (Zyloprim) 100 MG tablet Take 100 mg by mouth one time a day. dorzolamide-timolol (Cosopt) 2-0.5 % ophthalmic solution 1 Drop every 12 hours. fluticasone-salmeterol (Advair Diskus) 100-50 MCG/ACT aerosol powder, breath activated Inhale 1 Puff into the lungs every 12 hours. Rinse mouth after each use. guaifenesin (Mucus Relief Chest Congestion) 400 MG Tablet Take 400 mg by mouth one time a day. montelukast (Singulair) 10 MG tablet Take 10 mg by mouth every evening. omeprazole (PriLOSEC) 20 MG delayed-release capsule Take 20 mg by mouth two times a day. Take before meals. Do not crush. pravastatin (Pravachol) 40 MG tablet Take 40 mg by mouth one time a day. Past Medical History: No past medical history on file. Past Surgical History: No past surgical history on file. Family History: No family history on file. Social History: Exam: Initial Vitals Most Recent Vitals Temp: 98.1 ??F (36.7 ??C) (11/14/23912) Temp: 98.1 ??F (36.7 ??C) (11/14/23912) Pulse: 74 (11/14/23912) Pulse: 74 (11/14/23912) Resp: 16 (11/14/23912) Resp: 16 (11/14/23912) BP: 122/55 (11/14/23912) BP: 122/55 (11/14/23912) SpO2: 97 % (11/14/23912) SpO2: 97 % (11/14/23912) Weight: 106.7 kg (235 lb 3.2 oz) (11/14/23912) Physical Exam: Physical Exam Vitals and nursing note reviewed. Constitutional: General: He is not in acute distress. Appearance: Normal appearance. He is not ill-appearing. Musculoskeletal: Left foot: Decreased range of motion. Laceration, tenderness and bony tenderness present. Feet: Neurological: Mental Status: He is alert. Lab Results: No results found for this visit on 11/14/23. Imaging Results: Imaging Results XR TOE OR TOES LEFT 2 OR MORE VIEWS (Final result) Result time 11/14/23 09:56:28 Final result by Michael Cuevas MD (11/14/23 09:56:28) Narrative: This document is currently in Final Status [...] Cuevas MD 11/14/2023 9:41 AM Edited By: JUAN 11/14/2023 9:49 AM Electronically Signed: Michael Cuevas MD 11/14/2023 9:56 AM Emergency Department Course: I independently reviewed radiology imaging and agree with radiologist report Medications lidocaine (Xylocaine) 1 % injection ( Infiltration Given by Other 11/14/23 0951) Procedures: Laceration Repair Date/Time: 11/14/2023 10:08 AM Performed by: William Redmond MD Authorized by: William Redmond MD Anesthesia: Anesthesia method: Local infiltration Local anesthetic: Lidocaine 1% w/o epi Laceration details: Location: Toe Toe location: L big toe Length (cm): 2 Repair type: Repair type: Simple Treatment: Area cleansed with: Saline Amount of cleaning: Standard Irrigation solution: Sterile saline Skin repair: Repair method: Sutures Suture size: 4-0 Suture material: Nylon Suture technique: Simple interrupted Number of sutures: 2 Medical Decision Making Laceration was repaired as noted above. X-ray does show a fracture of the distal phalanx and this is likely why he has had the continued bleeding. After suturing the bleeding has slowed down significantly. Will put a big bulky dressing on the toe. Because this is the weightbearing part of the foot,will put the patient in a boot to help minimize movement of the toe instability. Recommend follow-up with podiatry in the next 7 to 10 days to have suture removal and follow-up Assessment: Closed nondisplaced fracture of distal phalanx of left great toe, initial encounter (Primary) Laceration of left great toe without foreign body with damage to nail, initial encounter Plan: Discharge Prescriptions None Disposition: ED Disposition ED Disposition Discharge Condition Stable Comment Remember, your care today was on an emergency basis and treatment was not intended to be a substitute for ongoing medical care from your primary care physician. If you came to the Emergency Room for treatment of a wound, sore, or cut of some sort AND/OR if youhave had an injection, an IV treatment or blood drawn, please watch that area carefully for the following signs of infection and seek professional medical treatment immediately: Redness, pain, swelling, or drainage at the site, or you d evelop a fever greater than 100 degrees Fahrenheit measured orally. If you had a lab, xray, or other tests while in the ED please review with your primary doctor. Discharge Instructions 1. Wear the walking boot at all times when moving around to help with stability of your toe. I would use the walker with this boot versus a cane. 2. Change the dressing daily. 3. Make an appointment to follow-up with your local sawmill moulder operator in 7 to 10 days to have the sutures removed and to follow-up on the toe fracture ExitCare Instructions Laceration, All Closures (American) William Redmond MD 11/14/23 1009 William Redmond MD 11/14/23 1011 * Jacqui Bautista RN - 11/14/2023 9:11 AM CDT Stubbed left big toe and has a laceration documented in this encounter Plan of Treatment Scheduled Orders Name Type Priority Associated Diagnoses Orde r Schedule AFO WALKING BOOT TYPE CUSTOM FABRICATED Procedures STAT Closed nondisplaced fracture of distal phalanx of left great toe, initial encounter Ordered: 11/14/2023 documented as of this encounter Procedures Procedure Name Priority Date/Time Associated Diagnosis Comments ED LACERATION REPAIR 11/14/2023 10:08 AM CDT Laceration of left great toe without foreign body with damage to nail, initial encounter XR TOE OR TOES LEFT 2 OR MORE VIEWS STAT 11/14/2023 9:39 AM CDT documented in this encounter Results * Laceration Repair (11/14/2023 10:08 AM [...] 9:56 AM William Redmond MD [facility] ORDERABLES documented in this encounter Visit Diagnoses Diagnosis Closed nondisplaced fracture of distal phalanx of left great toe, initial encounter- Primary Laceration of left great toe without foreign body with damage to nail, initial encounter documented in this encounter Administered Medications Inactive Administered Medications Medication Order MAR Action Action Date Dose Rate Site lidocaine (Xylocaine) 1 % injection Infiltration, ONCE, 1 dose, On 11/14/23 at 1000 Given by Other 11/14/2023 9:51 AM CDT documented in this encounter Historical Medications * This list may reflect changes made after this encounter. Medication Sig Dispensed Refills Start Date End Date guaifenesin (Mucus Relief Chest Congestion) 400 MG Tablet Take 400 mg by mouth one time a day. Acetaminophen (Tylenol) 325 MG capsule Take 500 mg by mouth two times a day. Two tabs PRN for pain dorzolamide-timolol (Cosopt) 2-0.5 % ophthalmic solution 1 Drop every 12 hours. fluticasone-salmeterol (Advair Diskus) 100-50 MCG/ACT aerosol powder, breath activated Inhale 1 Puff into the lungs every 12 hours. Rinse mouth after each use. omeprazole (PriLOSEC) 20 MG delayed-release capsule Take 20 mg by mouth two times a day. Take before meals. Do not crush. allopurinol (Zyloprim) 100 MG tablet Take 100 mg by mouth one time a day. pravastatin (Pravachol) 40 MG tablet Take 40 mg by mouth one time a day. montelukast (Singulair) 10 MG tablet Take 10 mg by mouth every evening. added in this encounter Active and Recently Administered Medications Times are shown in CDT. Scheduled Medication Order 11/12/2023 11/13/2023 11/14/2023 lidocaine (Xylocaine) 1 % injection (COMPLETED) Infiltration, ONCE, 1 dose, On 11/14/23 at 1000 0951 (Given by Other - Provider: Jacqui Bautista RN) documented in this encounter Care Teams Costume Draper Relationship Specialty Start Date End Date Gael Damico MD [facility] & [address] [address] PCP - General Family Medicine 11/14/23 Camron Ohara MD [address] [place] [address] Podiatry 11/14/23 documented as of this encounter
--- OUTSIDE RECORDS SUMMARY | 2023-12-01 14:33 | XMS_ITS | Encounter Summary ---
Author Organization [facility] Address [address], [place] [address] Care Team Providers Care Graduation Coach Name Role Phone Gael Damico MD Primary Care Provider Reason for Visit * Reason Comments UTI Encounter Details Date Type Department Care Team (Late st Contact Info) Description 09/21/2023 Telephone [facility] Urology [address] [place] [address] Waqas Rodney MD [address] [place] [address] UTI Social History Tobacco Use Types Packs/Day [...] follow. 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 Pt states that he is not happy with the new process and just wants a UA and antibiotic treatment. Also unhappy that he cannot speak with Dr. Rodney directly. Pt declines going to PCP or Urgent care today. Pt has been offered a video visit with Dr. Amaya tomorrow at 3 pm. Pt will leave urine sample at [facility] lab today and video visit with Dr. Amaya tomorrow. Pt in agreement of plan and verbalizes understanding. Lab orders have been faxed to [facility] lab at [phone]. UA/UC orders have been faxed. Voiding problem [...] valderrama Pt has been traveling back from [place] and believes that he might have gotten [...] problems documented in this encounter Care Teams Graduation Coach Relationship Specialty Start Date End Date Damico, Simone, MD [address] [place] [address] PCP - General Family Practice 08/01/22 documented as of this encounter
--- OUTSIDE RECORDS SUMMARY | 2023-12-01 14:33 | XMS_ITS | Encounter Summary ---
Author Organization [facility] Address [address] [address] Phone Care Team Providers Care Strike Operations Officer Name Role Phone Gael Damico MD Primary Care Provider [phone] Camron Ohara MD Unavailable [phone] Encounter Details Date Type Department Care Team (Latest Contact Info) Description 11/14/2023 Travel Social History Tobacco Use Types Packs/Day Years [...] on filedocumented in this encounter Care Teams Strike Operations Officer Relationship Specialty Start Date End Date Gael Damico MD [facility] [address] [place] [id number] PCP - General Family Medicine 11/14/23 Camron Ohara MD [address] [place] [address] Podiatry 11/14/23 documented as of this encounter
--- OUTSIDE RECORDS SUMMARY | 2023-12-01 14:33 | XMS_ITS | Encounter Summary ---
Author Organization [facility] Address [address], [place] [address] Care Team Providers Care Putaway Driver Name Role Phone aGel Damico MD Primary Care Provider Encounter Details Date Type Department Care Team (Late st Contact Info) Description 07/23/2018 Correspondence [facility] Urology [address] [place] [address] Waqas Rodney MD [address] [place] [address] SMG ORDER Social History Tobacco Use Types [...] on filedocumented in this encounter Care Teams Putaway Driver Relationship Specialty Start Date End Date Gael Damico MD [address] [place] [address] PCP - General Family Practice 08/01/22 documented as of this encounter
--- OUTSIDE RECORDS SUMMARY | 2023-12-01 14:34 | XMS_ITS | Encounter Summary ---
Author Organization [facility] Address [address], [place] [address] Care Team Providers Care Tail Puller Name Role Phone Gael Damico MD Primary Care Provider Encounter Details Date Type Department Care Team (Late st Contact Info) Description 01/05/2012 Consent for Procedure/Treatme nt [facility] [address] [place] [address] [facility], Provider [place] MRI SAFETY SCREENING CONSENT Social [...] as of this encounter Progress Notes * [facility], Provider - 01/05/2012 12:00 AM CDT documented in this encounter Plan of Treatment Not on file documented as of this encounter Visit Diagnoses Not on filedocumented in this encounter Care Teams Tail Puller Relationship Specialty Start Date End Date Gael Damico MD [address] [place] [address] PCP - General Family Practice 08/01/22 documented as of this encounter
--- OUTSIDE RECORDS SUMMARY | 2023-12-01 14:34 | XMS_ITS | Encounter Summary ---
Author Organization [facility] Address [address], [place] [address] Care Team Providers Care Sugar Controller Name Role Phone Gael Damico MD Primary Care Provider [phone] Encounter Details Date Type Department Care Team (Late st Contact Info) Description 01/07/2017 Consent for Procedure/Treatme [facility], Provider [place] CONSENT FOR SURGERY OR PROCEDURE [...] on filedocumented in this encounter Care Teams Sugar Controller Relationship Specialty Start Date End Date Gael Damico MD [address] [place] [address] PCP - General Family Practice 08/01/22 documented as of this encounter
--- OUTSIDE RECORDS SUMMARY | 2023-12-01 14:34 | XMS_ITS | Encounter Summary ---
Author Organization [facility] Address [address] [address] Care Team Providers Care Wool Sampler Name Role Phone Gael Damico MD Primary Care Provider [phone] Encounter Details Date Type Department Care Team (Late st Contact Info) Description 10/28/2016 Scanned History [facility] [address] [place] [address] [facility], Provider LV MRI SAFETY AND HEALTH QUESTIONNAIRE [...] on filedocumented in this encounter Care Teams Wool Sampler Relationship Specialty Start Date End Date Gael Damico MD [address] [place] [address] PCP - General Family Practice 08/01/22 documented as of this encounter
--- OUTSIDE RECORDS SUMMARY | 2023-12-01 14:34 | XMS_ITS | Clinical Summary ---
Author Organization [facility] Address [address] [place] [address] Care Team Providers Care Printing Plate Maker Name Role Phone Elsewhere, Pcp Primary Care Provider Unavailabl e Source Comments Patient records contain information from all sites at [facility]. For routine questions regarding patient records, call [phone] during business hours, M-F 8:00 AM - 5:00 PM Central Time. 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 Patient declined 02/21/2022 Do you belong to any clubs o r organizations such as pentecostalism groups, unions, fraternal or athletic groups, or [...] and heating? Not hard at all 02/21/2022 [facility] of Occupat ional Health - Occupational Stress [...] or slept in a chcf (including now)? No 02/21/2022 Nutrition Answer Date [...] Comments Blood Pressure 146/73 05/02/2022 10:23 AM SPLICER OPERATOR Pulse 76 05/02/2022 10:23 AM SPLICER OPERATOR Temperature 36.8 ??C (98.3 ??F) 05/02/2022 10:[address] Respiratory Rate 12 01/28/2022 11:00 AM CDT Oxygen Saturation 96% 01/28/2022 11:00 AM CDT Inhaled Oxygen Concentration - - Weight 107 kg (234 lb 12.6 oz) 05/02/2022 10:23 AM SPLICER OPERATOR Height 166.5 cm (5' 5.55) 05/02/2022 10:[address] Body Mass Index 38.42 05/02/2022 10:23 AM SPLICER OPERATOR Plan of Treatment Health Maintenance Due Date [...] history exists Medical Devices Implanted Type Area Tankage Grinder Operator Device Identifier Shelf Expiration Date Model / Serial / Lot Knee Implant Knee Implant Left: Knee Care Teams Printing Plate Maker Relationship Specialty Start Date End Date Elsewhere, Pcp PCP - General Internal Medicine 01/22/22 Gael Mcguire ND Primary Team Safety Attendant 01/22/22
--- OUTSIDE RECORDS SUMMARY | 2023-12-01 14:34 | XMS_ITS | Encounter Summary ---
Author Organization [facility] Address [address], [place] [address] Care Team Providers Care Chute Operator Name Role Phone Gael Damico MD Primary Care Provider Encounter Details Date Type Department Care Team (Late st Contact Info) Description 10/29/2015 Consent for Procedure/Treatme nt [facility] [address] [place] [address] [facility], Provider [facility] INFORMED CONSENT Social History Tobacco Use [...] on filedocumented in this encounter Care Teams Chute Operator Relationship Specialty Start Date End Date Gael Damico MD [address] [place] [address] PCP - General Family Practice 08/01/22 documented as of this encounter
--- OUTSIDE RECORDS SUMMARY | 2023-12-01 14:34 | XMS_ITS | Encounter Summary ---
Author Organization [facility] Address [address] [address] Care Team Providers Care Agriculture Extension Specialist Name Role Phone Gael Damico MD Primary Care Provider Encounter Details Date Type Department Care Team (Late st Contact Info) Description 12/31/2006 Consent for Procedure/Treatme nt [facility] [address] [facility] [place] [address] Mark Boyd MD [address] [place] [address] CONSENT FOR DIAGNOSTIC PROCEDURE Social History Tobacco [...] on filedocumented in this encounter Care Teams Agriculture Extension Specialist Relationship Specialty Start Date End Date Gael Damico MD [address] [place] [address] PCP - General Family Practice 08/01/22 documented as of this encounter
--- OUTSIDE RECORDS SUMMARY | 2023-12-01 14:34 | XMS_ITS | Encounter Summary ---
Author Organization [facility] Address [address] [address] Care Team Providers Care Liability Analyst Name Role Phone Gael Damico MD Primary Care Provider Encounter Details Date Type Department Care Team (Late st Contact Info) Description 10/08/[address] [facility] [address] [place] [address] [address] [facility], Provider LV MRI SAFETY AND HEALTH [...] on filedocumented in this encounter Care Teams Liability Analyst Relationship Specialty Start Date End Date Gael Damico MD [address] [place] [address] PCP - General Family Practice 08/01/22 documented as of this encounter
--- OUTSIDE RECORDS SUMMARY | 2023-12-01 14:34 | XMS_ITS ---
Author Organization [facility] Address [address] [place] [address] Care Team Providers Care Telephone Sex Worker Name Role Phone Unavailable Unavailable Unavailable Surgery Details Not on file Complications Check Surgery Details section. Procedure Estimated Blood Loss Check Surgery Details section. Procedure Findings Check Surgery Details section. Procedure Specimens Taken Check Surgery Details section.
--- OUTSIDE RECORDS SUMMARY | 2023-12-01 14:34 | XMS_ITS | Encounter Summary ---
Author Organization [facility] Address [address], [place] [address] Care Team Providers Care It Sales Executive Name Role Phone Gael Damico MD Primary Care Provider Encounter Details Date Type Department Care Team (Late st Contact Info) Description 08/04/2013 Consent for Procedure/Treatme nt Same Day Surgery [address] [place] [address] [facility], Provider [facility] INFORMED CONSENT Social History Tobacco Use Types [...] as of this encounter Progress Notes * [facility], Provider - 08/04/2013 12:00 AM CST LRY DIPPER documented in this encounter Plan of Treatment Not on file documented as of this encounter Visit Diagnoses Not on filedocumented in this encounter Care Teams It Sales Executive Relationship Specialty Start Date End Date Gael Damico MD [address] [place] [address] PCP - General Family Practice 08/01/22 documented as of this encounter
--- OUTSIDE RECORDS SUMMARY | 2023-12-01 14:34 | XMS_ITS | Encounter Summary ---
Author Organization [facility] Address [address], [place] [address] Care Team Providers Care Controls Designer Name Role Phone Gael Damico MD Primary Care Provider [phone] Encounter Details Date Type Department Care Team (Late st Contact Info) Description 09/16/2017 Scanned History External to Transferred Record, Provider [facility] Social History Tobacco Use Types Packs/Day [...] on filedocumented in this encounter Care Teams Controls Designer Relationship Specialty Start Date End Date Gael Damico MD [address] [place] [address] PCP - General Family Practice 08/01/22 documented as of this encounter
--- OUTSIDE RECORDS SUMMARY | 2023-12-01 14:34 | XMS_ITS | Encounter Summary ---
Author Organization [employer] Address [address], [place] [address] Care Team Providers Care Small Business Sales Representative Name Role Phone Gael Damico MD Primary Care Provider [phone] Encounter Details Date Type Department Care Team (Late st Contact Info) Description 07/22/2013 Consent for Procedure/Treatme nt [facility] [address] [place] [address] [facility], Provider LV CONSENT FOR CONTRAST Social History [...] as of this encounter Progress Notes * [facility], Provider - 07/22/2013 12:00 AM CST [employer] documented in this encounter Plan of Treatment Not on file documented as of this encounter Visit Diagnoses Not on filedocumented in this encounter Care Teams Small Business Sales Representative Relationship Specialty Start Date End Date Gael Damico MD [address] [place] [address] PCP - General Family Practice 08/01/22 documented as of this encounter
--- OUTSIDE RECORDS SUMMARY | 2023-12-01 14:34 | XMS_ITS | Encounter Summary ---
Author Organization [email or web address] Address [address], [place] [address] Care Team Providers Care Projection Camera Operator Name Role Phone Gael Damico MD Primary Care Provider [phone] Encounter Details Date Type Department Care Team (Late st Contact Info) Description 06/18/2007 Consent for Procedure/Treatme nt [facility] [address] [facility] [place] [address] Mark Boyd MD [address] [place] [address] CONSENT FOR PROCEDURE Social History Tobacco Use [...] * Mark Boyd - 06/18/2007 12:00 AM RANGE MANAGER E MANAGER documented in this encounter Plan of Treatment Not on file documented as of this encounter Visit Diagnoses Not on filedocumented in this encounter Care Teams Projection Camera Operator Relationship Specialty Start Date End Date Gael Damico MD [address] [place] [address] PCP - General Family Practice 08/01/22 documented as of this encounter
--- OUTSIDE RECORDS SUMMARY | 2023-12-01 14:34 | XMS_ITS | Encounter Summary ---
Author Organization [employer] Address [address] [address] Care Team Providers Care Tugger Operator Name Role Phone Gael Damico MD Primary Care Provider Encounter Details Date Type Department Care Team (Late st Contact Info) Description 10/28/2016 Consent for Procedure/Treatme [facility] Same Day Surgery [address] [place] [address] [facility], Provider [facility] INFORMED CONSENT Social History Tobacco Use Types [...] on filedocumented in this encounter Care Teams Tugger Operator Relationship Specialty Start Date End Date Gael Damico MD [address] [place] [address] PCP - General Family Practice 08/01/22 documented as of this encounter
--- OUTSIDE RECORDS SUMMARY | 2023-12-01 14:34 | XMS_ITS | Referral Summary ---
Author Organization [facility] Address [address] [place] [address] Care Team Providers Care Crop Or Grain Farmer Name Role Phone Elsewhere, Pcp Primary Care Provider Unavailabl e Source Comments Patient records contain information from all sites at [facility]. For routine questions regarding patient records, call [phone] during business hours, M-F 8:00 AM - 5:00 PM Central Time. Record requests for emergency care only can be directed to [phone] at any time.[facility] Allergies Active Allergy Reactions Criticality Noted Date [...] Shortness of breath (Reselect Reaction) High 04/28/2018 [place] Anaphylaxis High 08/28/2017 Watermelon Anaphylaxis High 08/28/2017 [...] week 02/21/2022 How often do you attend [facility]? Patient declined 02/21/2022 Do you belong to any clubs o r organizations such as rastafarian groups, unions, fraternal or athletic groups, or [...] and heating? Not hard at all 02/21/2022 [facility] Occupat ional Health - Occupational Stress [...] or slept in a prison (including now)? No 02/21/2022 Nutrition Answer Date [...] Comments Blood Pressure 146/73 05/02/2022 10:23 AM COFFEE SHOP AIDE Pulse 76 05/02/2022 10:23 AM COFFEE SHOP AIDE Temperature 36.8 ??C (98.3 ??F) 05/02/2022 10:[address] Respiratory Rate 12 01/28/2022 11:00 AM CDT Oxygen Saturation 96% 01/28/2022 11:00 AM CDT Inhaled Oxygen Concentration - - Weight 107 kg (234 lb 12.6 oz) 05/02/2022 10:23 AM COFFEE SHOP AIDE Height 166.5 cm (5' 5.55) 05/02/2022 10:[address] Body Mass Index 38.42 05/02/2022 10:23 AM COFFEE SHOP AIDE Plan of Treatment Not on file Medical Devices Implanted Type Area Can Line Operator Device Identifier Shelf Expiration Date Model / Serial / Lot Knee Implant Knee Implant Left: Knee Care Teams Crop Or Grain Farmer Relationship Specialty Start Date End Date Elsewhere, Pcp PCP - General Internal Medicine [facility] Alley Cleaner 01/22/22
--- OUTSIDE RECORDS SUMMARY | 2023-12-01 14:34 | XMS_ITS | Encounter Summary ---
Author Organization [employer] Address [address] [address] Care Team Providers Care Grade School Teacher Name Role Phone Gael Damico MD Primary Care Provider [phone] Encounter Details Date Type Department Care Team (Late st Contact Info) Description 03/25/2016 Correspondence Travel and Tropical Medicine [address] [place] [address] Wandy Goff PA-C [address] [place], [place] [id number] [facility] PAYMENT AGREEMENT WAIVER Social History [...] on filedocumented in this encounter Care Teams Grade School Teacher Relationship Specialty Start Date End Date Gael Damico MD [address] [place] [address] PCP - General Family Practice 08/01/22 documented as of this encounter
--- OUTSIDE RECORDS SUMMARY | 2023-12-01 14:34 | XMS_ITS | Encounter Summary ---
Author Organization [facility] Address [address], [place] [address] Care Team Providers Care Green Hide Inspector Name Role Phone Gael Damico MD Primary Care Provider [phone] Encounter Details Date Type Department Care Team (Late st Contact Info) Description 09/15/2017 Correspondence [facility] Urology [address] [place] [address] Waqas Rodney MD [address] [place] [address] [facility] UR[facility]ICAL [facility] Social History Tobacco Use [...] filedocumented in this encounter Care Teams Green Hide Inspector Relationship Specialty Start Date End Date Gael Damico MD [address] [place] [address] PCP - General Family Practice 08/01/22 documented as of this encounter
--- OUTSIDE RECORDS SUMMARY | 2023-12-01 14:34 | XMS_ITS | Encounter Summary ---
Author Organization [employer] Address [address] [address] Care Team Providers Care Director Of Cardiac Cath Lab Name Role Phone Gael Damico MD Primary Care Provider [phone] Reason for Visit * Reason Comments Refill Encounter Details Date Type Department Care Team (Late st Contact Info) Description 12/03/2017 Nurse Triage Careline [address] [place], [place] [address] Unassigned, Provider [address] [place] [address] Refill Social History Tobacco Use Types Packs/Day [...] Alcantar CMA 12/04/2017 8:45 AM * Lenka Quinn RN - 12/03/2017 7:29 PM CDT Patient/caregivers homecare request: Input needed Medication Specific Request: See [...] per unit policy Protocols used: MEDICATION QUESTION [id number] Plan: Pravastatin 30 day/no refills ordered per standing order and sent to [facility] patient/caller to call back CareLine if symptoms get worse or if you have any further questions or concerns. The CareLine is available 05/01. Lenka Quinn RN 12/03/2017, 7:58 PM * Mine Carroll - 12/03/2017 7:17 PM CDT Verified patient identity using three identifiers: Yes Caller's relationship to patient: Self At which care system or clinic is the patient normally seen? [facility] Medication Questions/New Med Request/ Side Effects [...] in this encounter Care Teams Director Of Cardiac Cath Lab Relationship Specialty Start Date End Date Gael Damico MD [address] [place] [address] PCP - General Family Practice 08/01/22 documented as of this encounter
[2023-12-01 14:53] LABS: Albumin* 4.2 g/dL (3.3-5.0); Chloride* 109 mmol/L (96-114)
[2023-12-01 14:54] LABS: Potassium* 4.1 mmol/L (3.6-5.1); Sodium* 140 mmol/L (135-149)
[2023-12-01 14:56] LABS: Estimated Glomerular Filt Rate 72 ml/min
[2023-12-01 14:57] LABS: Alanine Aminotransferase* 21 U/L (4-50); Alkaline Phosphatase* 72 U/L (40-150); Anion Gap 7 mEq/L (7-15); Aspartate Amino Transferase* 28 U/L (12-35); Bilirubin Direct* 0.3 mg/dL (0.0-0.5); Bilirubin Total* 0.6 mg/dL (0.1-1.5); Blood Urea Nitrogen* 15 mg/dL (7-30); Calcium* 8.5 mg/dL (8.4-10.6); Carbon Dioxide* 24 mmol/L (20-32); Glucose* 100 mg/dL (60-115); Total Protein* 7.4 g/dL (6.0-8.3)
[2023-12-01 14:58] LABS: Magnesium* 2.1 mg/dL (1.5-2.6)
[2023-12-01 15:10] LABS: Appearance Urine Clear (Clear); Bilirubin Urine Negative (Negative); Blood Urine Negative (Negative); Color Urine Dark yellow (Yellow); Glucose Urine Negative (Negative); Ketones Urine Negative (Negative); Leukocyte Esterase Urine Negative (Negative); Nitrite Urine Negative (Negative); Protein Urine Negative (Negative); Specific Gravity Urine 1.015 (1.000-1.030); Urobilinogen Urine 0.2 (0.2-1.0); pH Urine 5.5 (5.0-8.5)
[2023-12-01 15:15] LABS: RBC Urine 0-2 (0-2); WBC Urine 0-2 (0-5)
[2023-12-01 15:18] LABS: C Reactive Protein* < 0.5 mg/dL (0.5-1.0); Ethanol* < 0.01 % (0.01-0.03); NT Pro B Type NatriureticPept* 383 pg/mL; Troponin I* < 0.01 ng/mL (0.01-0.04)
[2023-12-01] MEDS: 0.9 % SODIUM CHLORIDE 1000 ml 1,000 ML IV (15:25)
== END 2023-12-01 16:52 | disposition home or self-care (01) ==
PROVIDERS: Emergency Provider Family Medicine; PCP Family Medicine
DX: R55 Syncope and collapse (principal)
CPT/HCPCS: 36415; 70450; 80048; 80076; 81001; 82077; 83605; 83735; 83880; 84484; 85025; 86140; 93005; 94761; 99284; J7030

== ENCOUNTER 2023-12-10 18:06 | Emergency (ER) | payer OTHER, SELFPAY ==
[2023-12-10 18:20] VITALS: BP 172/97; PULSE 76; RESP 16; TEMP 36.6; O2SAT 96; BMI 35.0
--- NOTE | 2023-12-10 18:58 | ED_ITS ---
HPI - General Adult General Chief complaint: Skin/Abscess/Foreign Body Stated complaint: Cellulitis R eye-[facility] gave Rx and seems worse Time Seen by Provider: 12/10/23 18:11 History of Present Illness HPI narrative: This 88-year-old male comes in with his daughter because of erythema on the right side of his face. He was seen at his dentist a day or 2 ago and there is a problem with his tooth that needs attention and there is appointment for treating this forthcoming. He went to urgent care today and was concerned about some swelling and redness around his eye and on the right side of his face. He left with a diagnosis of cellulitis and was instructed to return if worsening symptoms occur. He is currently taking Augmentin. He arrives here with normal vital signs. Related Data Home Medications ?Medication ?Instructions ?Recorded ?Confirmed acetaminophen 500 mg tablet 1,000 mg PO BID PRN 06/20/22 12/10/23 (Tylenol Extra Strength) montelukast 10 mg tablet 10 mg PO QDAY 06/20/22 12/10/23 dorzolamide 22.3 mg-timolol 6.8 1 drp ophthalmic (eye) BID 07/22/22 12/10/23 mg/mL eye drops guaifenesin [Mucinex] 1 tab PO BID 09/22/22 12/10/23 vit C 250 mg-vit E 200 unit-zinc 1 tab PO BID 12/26/22 12/10/23 12.5 mg-copper 1 [id number] tablet (ICaps AREDS2 (copper citrate)) Previous Rx's ?Medication ?Instructions ?Recorded albuterol sulfate 90 mcg/actuation 2 puff inhalation Q4-6H PRN 06/13/22 aerosol inhaler shortness of breath or wheezing #8.5 grams ipratropium 0.5 mg-albuterol 3 mg 3 ml inhalation Q6H PRN wheezing 06/20/22 (2.5 mg base)/3 mL nebulization #90 mL soln nebulizers #1 ea 06/27/22 omeprazole 20 mg capsule,delayed 20 mg PO BID #180 caps 12/15/22 release pravastatin 40 mg tablet 40 mg PO QDAY #90 tabs 07/31/23 allopurinol 100 mg tablet 100 mg PO QDAY #90 tabs 11/05/23 amoxicillin 875 mg-potassium 1 tab PO BID 10 days #20 tabs 12/10/23 clavulanate 125 mg tablet valacyclovir 1 gram tablet 1,000 mg PO TID #21 tabs 12/10/23 (Valtrex) Allergies Allergy/AdvReac Type Severity Reaction Status Date / Time acetaminophen Allergy Severe Anaphylaxis Verified 12/10/23 18:20 [From Excedrin Extra Strength] aspirin Allergy Severe Anaphylaxis Verified 12/10/23 18:20 [From Excedrin Extra Strength] banana Allergy Severe Anaphylaxis Verified 12/10/23 18:20 walnut Allergy Severe Anaphylaxis Verified 12/10/23 18:20 watermelon Allergy Severe Anaphylaxis Verified 12/10/23 18:20 levofloxacin [From Levaquin] Allergy Unknown Hamstring Verified 12/10/23 18:20 Tendonitis Review of Systems Status of ROS: Reports: 10 or more systems reviewed and unremarkable except as noted in History and below Narrative: Constitutional: No fevers, no weight gain or loss. Eyes: No discharge. No vision changes. He has some redness around his right eye. HENT: No congestion, no sore throat, no ear pain. He reports a lump on the right side of his neck. Cardiovascular: No chest pain, no palpitations. Respiratory: No shortness of breath, no wheezes, no cough. Gastrointestinal: No abdominal pain, no vomiting, no diarrhea. Genitourinary: No dysuria, no hematuria. Musculoskeletal: Normal range of motion. Skin: No rashes, no pruritis. Neurological: No dizziness, weakness, sensory change, speech change. Endo/Heme/Allergies: No bruising or bleeding. No polydipsia. Pysch: no suicidality, no anxiety, no insomnia. All other systems reviewed and are negative. [facility] Medical History (Updated 12/10/23 @ 19:07 by Travon Abbott MD) Cellulitis of face ?L03.211 - Cellulitis of face (ICD-10) Mixed hyperlipidemia ?E78.2 - Mixed hyperlipidemia (ICD-10) History of gout ?Z87.39 - Personal history of other diseases of the musculoskeletal system and connective tissue (ICD-10) Primary hypertension ?I10 - Essential (primary) hypertension (ICD-10) Primary open angle glaucoma (POAG) ?H40.1190 - Primary open-angle glaucoma, unspecified eye, stage unspecified (ICD-10) Age-related macular degeneration ?H35.30 - Unspecified macular degeneration (ICD-10) History of prostate cancer ?Z85.46 - Personal history of malignant neoplasm of prostate (ICD-10) Chronic cough ?R05.3 - Chronic cough (ICD-10) History of TIA (transient ischemic attack) (11/2021) ?Z86.73 - Personal history of transient ischemic attack (TIA), and cerebral infarction without residual deficits (ICD-10) 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 - Vertebro-basilar artery syndrome (ICD-10) Hemoptysis (10/2021) ?R04.2 - Hemoptysis (ICD-10) GERD (gastroesophageal reflux disease) ?K21.9 - Gastro-esophageal reflux disease without esophagitis (ICD-10) Surgical History (Updated 07/24/22 @ 11:07 by Vandana Brooks) History of repair of right rotator cuff ?Z98.890 - Other specified postprocedural states (ICD-10) History of tonsillectomy ?Z90.89 - Acquired absence of other organs (ICD-10) History of back surgery ?Z98.890 - Other specified postprocedural states (ICD-10) History of phacoemulsification of cataract of both eyes with intraocular lens implantation ?Z98.41 - Cataract extraction status, right eye (ICD-10) ?Z98.42 - Cataract extraction status, left eye (ICD-10) ?Z96.1 - Presence of intraocular lens (ICD-10) History of esophagogastroduodenoscopy (EGD) (01/21/22) ?Z98.890 - Other specified postprocedural states (ICD-10) History of basal cell carcinoma (BCC) (2005) ?Z85.828 - Personal history of other malignant neoplasm of skin (ICD-10) History of transurethral resection of prostate ?Z98.890 - Other specified postprocedural states (ICD-10) ?Z90.79 - Acquired absence of other genital organ(s) (ICD-10) History of bronchoscopy (01/28/22) ?Z98.890 - Other specified postprocedural states (ICD-10) History of total left knee replacement ?Z96.652 - Presence of left artificial knee joint (ICD-10) Family History (Updated 07/24/22 @ 11:12 by Vandana Brooks) Father Colon cancer Prostate cancer Coronary artery disease Social History (Updated 09/22/22 @ 21:30 by Gael Damico MD) 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 HEENT: Normocephalic, atraumatic. Neck: Normal range of motion. Nontender. Supple. Heart: Intact distal pulses. Lungs: No chest discomfort. No wheezes, rhonchi, or rales. Abdomen: Nontender. Back: Normal range of motion. Extremities: Normal range of motion. No injury. Skin: Intact. Warm. A fine vesicular rash on the right side of his forehead and right side of his face. This does not extend across the midline to his left side. Neurologic: No altered sensation. No weakness. Alert and oriented. Psychiatric: No suicidality. No anxiety or depression. No insomnia. Nursing notes and vitals signs are reviewed. Const: Vital Signs, click to edit/add: Vital Signs - 24 hr 12/10/23 18:20 Temperature 98 F Pulse Rate [Pulse Oximeter] 76 Respiratory Rate 16 Blood Pressure [Ri ght Upper Arm] 172/97 H Pulse Oximetry 96 Oxygen Delivery Me thod Room Air Course Vital Signs Vital signs: Initial Vital Signs Temperature 98 F 12/10/23 18:20 Temperature Source Temporal Artery Scan 12/10/23 18:20 Pulse Rate 76 12/10/23 18:20 Respiratory Rate 16 12/10/23 18:20 Blood Pressure 172/97 H 12/10/23 18:20 Blood Pressure Mean 122 H 12/10/23 18:20 Blood Pressure Position Semi-Fowlers 12/10/23 18:20 Pulse Oximetry 96 12/10/23 18:20 Oxygen Delivery Method Room Air 12/10/23 18:20 Vital Signs Temperature 98 F 12/10/23 18:20 Pulse Rate 76 12/10/23 18:20 Respiratory Rate 16 12/10/23 18:20 Blood Pressure 172/97 H 12/10/23 18:20 Pulse Oximetry 96 12/10/23 18:20 Oxygen Delivery Method Room Air 12/10/23 18:20 Temperature 98 F 12/10/23 18:20 Pulse Rate 76 12/10/23 18:20 Respiratory Rate 16 12/10/23 18:20 Blood Pressure 172/97 H 12/10/23 18:20 Pulse Oximetry 96 12/10/23 18:20 Oxygen Delivery Method Room Air 12/10/23 18:20 Medical Decision Making MDM Narrative Medical decision making narrative: This patient has redness with small vesicular aspect to it occurring from the midline of his forehead onto the right side of his head and face. His symptoms are rather suspicious for shingles. He has been diagnosed with a cellulitis and a problem with a tooth. He is currently taking Augmentin. The patient does not have any change in his vision and is able to move his eyes normally. He does have erythema around his right eyelids and it appears that his sclera is a bit more injected on the right eye. There is no drainage or purulence. I stated to the patient that he should be treated with an antiviral medicine as symptoms of started in the last day or 2. Additionally there is potential for his right eye to become more involved. I advised him to follow-up with ophthalmology clinic. He just had an appointment with Dr. Sawant earlier this week and will call for repeat assessment 1st thing in the morning. I did provide a prescription for Valtrex. Discharge Plan Discharge Clinical Impression: Shingles Patient Disposition: Home w/ Parent or Adult Condition: Unchanged Additional Instructions: Take medication as prescribed. Follow up with Ophthalmology Clinic for ongoing assessment and management. Return if worsening. Prescriptions: New valacyclovir [Valtrex] 1 gram tablet 1,000 mg PO TID Qty: 21 2RF No Action albuterol sulfate 90 mcg/actuation HFA aerosol inhaler 2 puff inhalation Q4-6H PRN (Reason: shortness of breath or wheezing) Qty: 8.5 0RF montelukast 10 mg tablet 10 mg PO QDAY Patient Comments: TAKE 1 TABLET BY MOUTH EVERY DAY dorzolamide-timolol 22.3-6.8 mg/mL drops 1 drp ophthalmic (eye) BID Patient Comments: INSTILL 1 DROP IN BOTH EYES THREE TIMES DAILY guaifenesin [Mucinex] 1 tab PO BID acetaminophen [Tylenol Extra Strength] 500 mg tablet 1,000 mg PO BID PRN ipratropium-albuterol 0.5 mg-3 mg(2.5 mg base)/3 mL solution for nebulization 3 ml inhalation Q6H PRN (Reason: wheezing) Qty: 90 2RF ICaps AREDS2 (copper citrate) 250 mg-200 unit -12.5 mg-1 mg tablet 1 tab PO BID amoxicillin-pot clavulanate 875-125 mg tablet 1 tab PO BID 10 Days Qty: 20 0RF (DME) nebulizers Misc See Rx Instructions .Route Qty: 1 0RF Rx Instructions: As directed omeprazole 20 mg capsule,delayed release(DR/EC) 20 mg PO BID Qty: 180 3RF pravastatin 40 mg tablet 40 mg PO QDAY Qty: 90 1RF allopurinol 100 mg tablet 100 mg PO QDAY Qty: 90 0RF Follow Up/Referrals: Gael Damico MD [Primary Care Provider] - Stand Alone Forms: [employer] Info Instructions
[2023-12-10 19:00] VITALS: BP 159/95; PULSE 75; RESP 16; O2SAT 95
--- OUTSIDE RECORDS SUMMARY | 2023-12-10 19:13 | XMS_ITS | Encounter Summary ---
Author Organization [employer] Address [address], [place] [address] Care Team Providers Care Guard Dance Hall Name Role Phone Gael Damico MD Primary Care Provider Encounter Details Date Type Department Care Team (Late st Contact Info) Description 10/29/2015 Consent for Procedure/Treatme nt [facility] [address] [place] [address] [facility], Provider [facility] INFORMED CONSENT Social History Tobacco Use Types [...] filedocumented in this encounter Care Teams Guard Dance Hall Relationship Specialty Start Date End Date Gael Damico MD [address] [place] [address] PCP - General Family Practice 08/01/22 documented as of this encounter
--- OUTSIDE RECORDS SUMMARY | 2023-12-10 19:13 | XMS_ITS | Encounter Summary ---
Author Organization [facility] Address [address] [address] Care Team Providers Care Sales Department Clerk Name Role Phone Gael Damico MD Primary Care Provider [phone] Encounter Details Date Type Department Care Team (Late st Contact Info) Description 07/23/2018 Correspondence [facility] Urology [address] [place] [address] Waqas Rodney MD [address] [place] [address] [facility] ORDER Social History Tobacco Use Types [...] on filedocumented in this encounter Care Teams Sales Department Clerk Relationship Specialty Start Date End Date Gael Damico MD [address] [place] [address] PCP - General Family Practice 08/01/22 documented as of this encounter
--- OUTSIDE RECORDS SUMMARY | 2023-12-10 19:13 | XMS_ITS | Encounter Summary ---
Author Organization [employer] Address [address], [place] [address] Care Team Providers Care Dancing Instructor Name Role Phone Gael Damico MD Primary Care Provider [phone] Encounter Details Date Type Department Care Team (Late st Contact Info) Description 10/28/2016 Consent for Procedure/Treatme [facility] Same Day Surgery [address] [place] [address] [facility], Provider [facility] INFORMED CONSENT Social History Tobacco Use [...] on filedocumented in this encounter Care Teams Dancing Instructor Relationship Specialty Start Date End Date Gael Damico MD [address] [place] [address] PCP - General Family Practice 08/01/22 documented as of this encounter
--- OUTSIDE RECORDS SUMMARY | 2023-12-10 19:13 | XMS_ITS | Clinical Summary ---
Author Organization [email or web address] Address [place], [place] [address] Care Team Providers Care Soil Expert Name Role Phone Ramses Cleary Primary Care [...] Type Department Care Team Description 10/20/2023 Telephone [facility] [address] [place] [address] Ruy Tate, Jacky Questions 10/07/2023 11:30 AM CDT Office Visit [facility] [address] [place] [address] Ruy Tate, AuD Hearing Aid 10/07/2023 Telephone [facility] [address] [place] [address] Ruy Tate, AuD 10/07/2023 Travel from Last [...] Care Team (Late st Contact Info) Description 01/26/2024 2:30 PM CDT Office Visit [facility] [address] [place] [address] Camron Ohara DPM [address] [place] [address] Health Maintenance Due Date Last Done Comments [...] history exists Tdap Completed 02/27/2011 Care Teams Soil Expert Relationship Specialty Start Date End Date Ramses Cleary PCP - General Family Practice 05/29/11
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
--- OUTSIDE RECORDS SUMMARY | 2023-12-10 19:13 | XMS_ITS | Encounter Summary ---
Author Organization [facility] Address [address] [place] [address] Care Team Providers Care Tank Farm Attendant Name Role Phone Gael Damico MD Primary Care Provider Encounter Details Date Type Department Care Team (Late st Contact Info) Description 08/08/2019 Correspondence [facility] Urology [address] [place] [address] Waqas Rodney MD [address] [place] [address] [facility] MEDICAL WRITTEN ORDER Social History Tobacco [...] on filedocumented in this encounter Care Teams Tank Farm Attendant Relationship Specialty Start Date End Date Gael Damico MD [address] [address] PCP - General Family Practice 08/01/22 documented as of this encounter
--- OUTSIDE RECORDS SUMMARY | 2023-12-10 19:13 | XMS_ITS | Clinical Summary ---
Author Organization [facility] Address [address] [address] Phone Care Team Providers Care Supervisor Maintenance Name Role Phone Gael Damico MD Primary Care Provider Camron Ohara MD Unavailable [phone] Allergies Active Allergy Reactions Criticality Noted Date [...] Description 11/14/2023 9:30 AM CDT Ancillary Procedure [facility] RAD[facility] [address] [place] [address] 11/14/2023 9:10 AM CDT - 11/14/2023 10:52 AM CDT Emergency [facility] EMERGENCY DEPARTMENT [address] [place] [address] William Redmond MD Closed nondisplaced fracture of [...] ORDERABLES from Last 3 Months Care Teams Supervisor Maintenance Relationship Specialty Start Date End Date Gael Damico MD [facility] [address] [place] [phone] PCP - General Family Medicine 11/14/23 Camron Ohara MD [address] [place] [address] Podiatry 11/14/23
--- OUTSIDE RECORDS SUMMARY | 2023-12-10 19:13 | XMS_ITS | Encounter Summary ---
Author Organization [facility] Address [address], [place] [address] Care Team Providers Care Access Coordinator Name Role Phone Gael Damico MD Primary Care Provider Encounter Details Date Type Department Care Team (Late st Contact Info) Description 03/25/2016 Correspondence [facility] T[facility] [address] [place] [address] Wandy Goff PA-C [address] [place], [place] [phone] [facility]EL [facility] PAYMENT AGREEMENT WAIVER Social History [...] on filedocumented in this encounter Care Teams Access Coordinator Relationship Specialty Start Date End Date Gael Damico MD [address] [place] [address] PCP - General Family Practice 08/01/22 documented as of this encounter
--- OUTSIDE RECORDS SUMMARY | 2023-12-10 19:13 | XMS_ITS | Encounter Summary ---
Author Organization [employer] Address [address], [place] [address] Care Team Providers Care Design Release Engineer Name Role Phone Gael Damico MD Primary Care Provider Encounter Details Date Type Department Care Team (Late st Contact Info) Description 08/04/2013 Consent for Procedure/Treatme nt Same Day Surgery [address] [place] [address] [facility], Provider [facility] INFORMED CONSENT Social History Tobacco Use Types [...] Notes * [facility], Provider - 08/04/2013 12:00 AM CST MAKING SUPERVISOR documented in this encounter Plan of Treatment Not on file documented as of this encounter Visit Diagnoses Not on filedocumented in this encounter Care Teams Design Release Engineer Relationship Specialty Start Date End Date Gael Damico MD [address] [place] [address] PCP - General Family Practice 08/01/22 documented as of this encounter
--- OUTSIDE RECORDS SUMMARY | 2023-12-10 19:13 | XMS_ITS | Encounter Summary ---
Author Organization [facility] Address [address] [address] Phone Care Team Providers Care Silica Mixer Operator Name Role Phone Gael Damico MD Primary Care Provider [phone] Camron Ohara MD Unavailable [phone] Reason for Visit * Reason Comments Toe Injury Encounter Details Date Type Department Care Team (Late st Contact Info) Description 11/14/2023 9:10 AM CDT - 11/14/2023 10:52 AM CDT Emergency [facility] EMERGENCY DEPARTMENT [address] [place] [address] William Redmond MD [address] [place] [address] Closed nondisplaced fracture of distal phalanx [...] an appointment to follow-up with your local docking saw operator in 7 to 10 days to have the sutures removed and to follow-up on the toe fracture * Attachments The following attachments cannot be sent through Care Everywhere. * Laceration, All Closures (Azerbaijani) documented in this encounter Medications at Time [...] Code Departure Means Destination Home and/or Self [facility] documented in this encounter ED Notes * [...] an appointment to follow-up with your local docking saw operator in 7 to 10 days to have the sutures removed and to follow-up on the toe fracture ExitCare Instructions Laceration, All Closures (Azerbaijani) William Redmond MD 11/14/23 1009 William Redmond [...] RN) documented in this encounter Care Teams Silica Mixer Operator Relationship Specialty Start Date End Date Gael Damico MD [facility] & [address] [address] PCP - General Family Medicine 11/14/23 Camron Ohara MD [address] [place] [address] Podiatry 11/14/23 documented as of this encounter
--- OUTSIDE RECORDS SUMMARY | 2023-12-10 19:13 | XMS_ITS | Encounter Summary ---
Author Organization [employer] Address [address], [place] [address] Care Team Providers Care Professor Of Sport Management Name Role Phone Gael Damico MD Primary Care Provider Encounter Details Date Type Department Care Team (Late st Contact Info) Description 10/08/2016 Scanned History [facility] [address] [place] [address] [facility], Provider LV MRI SAFETY AND HEALTH [...] on filedocumented in this encounter Care Teams Professor Of Sport Management Relationship Specialty Start Date End Date Gael Damico MD [address] [place] [address] PCP - General Family Practice 08/01/22 documented as of this encounter
--- OUTSIDE RECORDS SUMMARY | 2023-12-10 19:13 | XMS_ITS | Encounter Summary ---
Author Organization [email or web address] Address [address], [place] [address] Care Team Providers Care Medicinal Plant Picker Name Role Phone Gael Damico MD Primary Care Provider [phone] Encounter Details Date Type Department Care Team (Late st Contact Info) Description 01/07/2017 Consent for Procedure/Treatme [facility], Provider [facility] CONSENT FOR SURGERY OR [...] on filedocumented in this encounter Care Teams Medicinal Plant Picker Relationship Specialty Start Date End Date Gael Damico MD [address] [place] [address] PCP - General Family Practice 08/01/22 documented as of this encounter
--- OUTSIDE RECORDS SUMMARY | 2023-12-10 19:13 | XMS_ITS | Encounter Summary ---
Author Organization [facility] Address [address] [place] [address] Care Team Providers Care Engine Boss Name Role Phone Gael Damico MD Primary Care Provider Reason for Visit * Reason Comments Refill Encounter Details Date Type Department Care Team (Late st Contact Info) Description 12/03/2017 Nurse Triage Careline [address] [place], [place] [phone] Unassigned, Provider [address] [place] [address] Refill Social History Tobacco Use Types Packs/Day [...] Quinn RN - 12/03/2017 7:29 PM CDT Patient/care technician request: Input needed Medication Specific Request: See [...] per unit policy Protocols used: MEDICATION QUESTION [id number] Plan: Pravastatin 30 day/no refills ordered per standing order and sent to [facility] patient/caller to call back CareLine if symptoms get worse or if you have any further questions or concerns. The CareLine is available 05/01. Lenka Quinn RN 12/03/2017, 7:58 PM * Mine Carroll - 12/03/2017 7:17 PM CDT Verified patient identity using three identifiers: Yes Caller's relationship to patient: Self At which care system or clinic is the patient normally seen? [facility] Medication Questions/New Med Request/ Side Effects [...] on filedocumented in this encounter Care Teams Engine Boss Relationship Specialty Start Date End Date Gael Damico MD [address] [place] [address] PCP - General Family Practice 08/01/22 documented as of this encounter
--- OUTSIDE RECORDS SUMMARY | 2023-12-10 19:13 | XMS_ITS | Encounter Summary ---
Author Organization [facility] Address [address] [address] Phone Care Team Providers Care Chemical Process Project Engineer Name Role Phone Gael Damico MD Primary Care Provider [phone] Camron Ohara MD Unavailable [phone] Encounter Details Date Type Department Care Team [...] on filedocumented in this encounter Care Teams Chemical Process Project Engineer Relationship Specialty Start Date End Date Gael Damico MD [facility] [address] [place] [phone] PCP - General Family Medicine 11/14/23 Camron Ohara MD [address] [place] [address] Podiatry 11/14/23 documented as of this encounter
--- OUTSIDE RECORDS SUMMARY | 2023-12-10 19:13 | XMS_ITS | Encounter Summary ---
Author Organization [facility] Address [address], [place] [address] Care Team Providers Care Development Administrator Name Role Phone Gael Damico MD Primary Care Provider Reason for Visit * Reason Comments UTI Encounter Details Date Type Department Care Team (Late st Contact Info) Description 09/21/2023 Telephone [facility] Urology [address] [place] [address] Waqas Rodney MD [address] [place] [address] UTI Social History Tobacco Use Types Packs/Day [...] follow. 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 Pt states that he is not happy with the new process and just wants a UA and antibiotic treatment. Also unhappy that he cannot speak with Dr. Rodney directly. Pt declines going to PCP or Urgent care today. Pt has been offered a video visit with Dr. Amaya tomorrow at 3 pm. Pt will leave urine sample at [facility] lab today and video visit with Dr. Amaya tomorrow. Pt in agreement of plan and verbalizes understanding. Lab orders have been faxed to [facility] lab at [phone]. UA/UC orders have been faxed. Voiding problem [...] valderrama Pt has been traveling back from [place] and believes that he might have gotten [...] problems documented in this encounter Care Teams Development Administrator Relationship Specialty Start Date End Date Damico, Simone, MD [address] [place] [address] PCP - General Family Practice 08/01/22 documented as of this encounter
--- OUTSIDE RECORDS SUMMARY | 2023-12-10 19:13 | XMS_ITS | Clinical Summary ---
Author Organization [facility] Address [address], [place] [address] Care Team Providers Care Refrigeration Insulator Name Role Phone Gael Damico MD Primary Care Provider [phone] Source Comments You are receiving this document [...] for each transition of care or referral. [employer] Allergies Active Allergy Reactions Criticality Noted Date [...] MCG/ACT nasal solutionIndications :Allergic Rhinitis Place 1 [place] into both nostrils two times a day. [...] Frequency Start Date End Date Status cyanocobalamin ([id number]) injection 1,000 mcgIndications:Vitamin B12 deficiency (HRC) 1000 [...] vessel 11/16/2016 Overview: Right side, branches of MATERIALS MGMT TECH. High intensity statin therapy indicated for stroke prevention. 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 Increased ASA to 325 mg [...] Type Department Care Team Description 09/21/2023 Telephone [facility] Urology [address] [place] [address] Waqas Rodney MD UTI from Last 3 Months Immunizations Name Administration Dates Next Due Flu Vac (3+ yrs) 07/10/2017, 0,03/21/2008, 005,04/09/2004,05/10/2001 HepA Adult (19+ yrs) 03/25/2016 Influenza IIV3 (Trivalent) F luzone Highdose, 65+ Yrs (72582) 05/01/2020,04/20/2019,02/26/2018, 016,02/28/2011 Influenza IIV4 (Quadrivalent ) Fluzone, [...] 02/26/2018, Additional history exists Influenza (Season Ended) 2024 021, 05/01/2020, 05/01/2020, Additional history exists Zoster/Shingles [...] 1:22 PM 10/30/2015 3:38 PM Care Teams Refrigeration Insulator Relationship Specialty Start Date End Date Gael Damico MD [address] [address] PCP - General Family Practice 08/01/22
--- OUTSIDE RECORDS SUMMARY | 2023-12-10 19:13 | XMS_ITS | Encounter Summary ---
Author Organization [employer] Address [address], [place] [address] Care Team Providers Care Development Administrator Name Role Phone Gael Damico MD Primary Care Provider Encounter Details Date Type Department Care Team (Late st Contact Info) Description 10/28/2016 Scanned History [facility] [address] [place] [address] [facility], Provider LV MRI SAFETY AND HEALTH [...] on filedocumented in this encounter Care Teams Development Administrator Relationship Specialty Start Date End Date Gael Damico MD [address] [place] [address] PCP - General Family Practice 08/01/22 documented as of this encounter
--- OUTSIDE RECORDS SUMMARY | 2023-12-10 19:13 | XMS_ITS | Encounter Summary ---
Author Organization [employer] Address [address], [place] [address] Care Team Providers Care Agriculture Department Chair Name Role Phone Gael Damico MD Primary Care Provider [phone] Encounter Details Date Type Department Care Team (Late st Contact Info) Description 09/16/2017 Scanned History External to Transferred Record, Provider [facility] Social History Tobacco Use Types Packs/Day [...] filedocumented in this encounter Care Teams Agriculture Department Chair Relationship Specialty Start Date End Date Gael Damico MD [address] [place] [address] PCP - General Family Practice 08/01/22 documented as of this encounter
--- OUTSIDE RECORDS SUMMARY | 2023-12-10 19:13 | XMS_ITS | Encounter Summary ---
Author Organization [facility] Address [address] [address] Care Team Providers Care Panel Instrument Repairer Name Role Phone Gael Damico MD Primary Care Provider [phone] Encounter Details Date Type Department Care Team (Late st Contact Info) Description 09/15/2017 Correspondence [facility] Urology [address] [place] [address] Waqas Rodney MD [address] [place] [address] [facility] Social History Tobacco Use [...] on filedocumented in this encounter Care Teams Panel Instrument Repairer Relationship Specialty Start Date End Date Gael Damico MD [address] [place] [address] PCP - General Family Practice 08/01/22 documented as of this encounter
--- OUTSIDE RECORDS SUMMARY | 2023-12-10 19:13 | XMS_ITS | Encounter Summary ---
Author Organization [facility] Address [address], [place] [address] Care Team Providers Care Oleo Hasher And Renderer Name Role Phone Gael Damico MD Primary Care Provider [phone] Reason for Visit * Reason Comments ORDERS Encounter Details Date Type Department Care Team (Late st Contact Info) Description 08/31/2023 Telephone [facility] Urology [address] [place] [address] Waqas Rodney MD [address] [place] [address] ORDERS Social History Tobacco Use Types Packs/Day [...] Order forms have been faxed back to [address] [place] [address]. Deepiak Arellano RN 09/01/2023, 9:01 AM Received fax confirmation that fax went through. Deepika Arellano RN 09/01/2023, 9:04 AM * Deepika Arellano RN - 08/31/2023 2:47 PM CDT Received fax from [address] [place] [address] for pt's catheter supplies. Order form has been placed on Dr. Rodney's desk for signature. Deepika Arellano RN 08/31/2023, 2:47 PM documented in this encounter Plan of Treatment Not on file documented as of this encounter Visit Diagnoses Not on filedocumented in this encounter Care Teams Oleo Hasher And Renderer Relationship Specialty Start Date End Date Gael Damico MD [address] [place] [address] PCP - General Family Practice 08/01/22 documented as of this encounter
--- OUTSIDE RECORDS SUMMARY | 2023-12-10 19:13 | XMS_ITS | Encounter Summary ---
Author Organization [facility] Address [address] [address] Phone Care Team Providers Care Vp Compliance Name Role Phone Gael Damico MD Primary Care Provider [phone] Camron Ohara MD Unavailable [phone] Encounter Details Date Type Department Care Team (Late st Contact Info) Description 11/14/2023 9:30 AM CDT Ancillary Procedure [facility] RADIOLOGY [address] [place] [id number] Social History Tobacco Use Types Packs/Day Years [...] on filedocumented in this encounter Care Teams Vp Compliance Relationship Specialty Start Date End Date Gael Damico MD [facility] & [address] [phone] PCP - General Family Medicine 11/14/23 Camron Ohara MD [address] [place] [address] Podiatry 11/14/23 documented as of this encounter
--- OUTSIDE RECORDS SUMMARY | 2023-12-10 19:13 | XMS_ITS | Encounter Summary ---
Author Organization [employer] Address [address] [address] Care Team Providers Care Song Plugger Name Role Phone Gael Damico MD Primary Care Provider [phone] Encounter Details Date Type Department Care Team (Late st Contact Info) Description 07/22/2013 Consent for Procedure/Treatme nt Imaging [address] [place] [address] , Provider [place] CONSENT FOR CONTRAST Social History [...] as of this encounter Progress Notes * , Provider - 07/22/2013 12:00 AM CST O TEACHER documented in this encounter Plan of Treatment Not on file documented as of this encounter Visit Diagnoses Not on filedocumented in this encounter Care Teams Song Plugger Relationship Specialty Start Date End Date Gael Damico MD [address] [place] [address] PCP - General Family Practice 08/01/22 documented as of this encounter
--- OUTSIDE RECORDS SUMMARY | 2023-12-10 19:14 | XMS_ITS | Clinical Summary ---
Author Organization [facility] Address [address] [place] [address] Care Team Providers Care Production Painter Name Role Phone Elsewhere, Pcp Primary Care Provider Unavailabl e Source Comments Patient records contain information from all sites at [facility]. For routine questions regarding patient records, call [phone] during business hours, M-F 8:00 AM - 5:00 PM Central Time. 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 Patient declined 02/21/2022 Do you belong to any clubs o r organizations such as confucianism groups, unions, fraternal [...] and heating? Not hard at all 02/21/2022 [facility] [place] of Occupat ional Health - Occupational Stress [...] place to sleep or slept in a care home (including now)? No 02/21/2022 Nutrition Answer [...] Comments Blood Pressure 146/73 05/02/2022 10:23 AM FINANCIAL PLANNING ANALYST Pulse 76 05/02/2022 10:23 AM FINANCIAL PLANNING ANALYST Temperature 36.8 ??C (98.3 ??F) 05/02/2022 10:[address] Respiratory Rate 12 01/28/2022 11:00 AM CDT Oxygen Saturation 96% 01/28/2022 11:00 AM CDT Inhaled Oxygen Concentration - - Weight 107 kg (234 lb 12.6 oz) 05/02/2022 10:23 AM FINANCIAL PLANNING ANALYST Height 166.5 cm (5' 5.55) 05/02/2022 10:[address] Body Mass Index 38.42 05/02/2022 10:23 AM FINANCIAL PLANNING ANALYST Plan of Treatment Health Maintenance Due Date [...] history exists Medical Devices Implanted Type Area Rn Anesthetist Device Identifier Shelf Expiration Date Model / Serial / Lot Knee Implant Knee Implant Left: Knee Care Teams Production Painter Relationship Specialty Start Date End Date Elsewhere, Pcp PCP - General Internal Medicine 01/22/22 Gael Mcguire PR Primary Team Flare Breaker 01/22/22
--- OUTSIDE RECORDS SUMMARY | 2023-12-10 19:14 | XMS_ITS | Encounter Summary ---
Author Organization [facility] Address [address], [place] [address] Care Team Providers Care Ripper Operator Name Role Phone Gael Damico MD Primary Care Provider [phone] Encounter Details Date Type Department Care Team (Late st Contact Info) Description 06/18/2007 Consent for Procedure/Treatme nt [facility] 401 Mohs Surgery 401 [facility] [place] [address] Mark Boyd MD [address] [place] [address] CONSENT FOR PROCEDURE Social History Tobacco Use [...] * Mark Boyd - 06/18/2007 12:00 AM QUANTITY SURVEYOR TITY SURVEYOR documented in this encounter Plan of Treatment Not on file documented as of this encounter Visit Diagnoses Not on filedocumented in this encounter Care Teams Ripper Operator Relationship Specialty Start Date End Date Gael Damico MD [address] [place] [address] PCP - General Family Practice 08/01/22 documented as of this encounter
--- OUTSIDE RECORDS SUMMARY | 2023-12-10 19:14 | XMS_ITS | Referral Summary ---
Author Organization [facility] Address [address] [place] [address] Care Team Providers Care Director Graphics Name Role Phone Elsewhere, Pcp Primary Care Provider Unavailabl e Source Comments Patient records contain information from all sites at [facility]. For routine questions regarding patient records, call [phone] during business hours, M-F 8:00 AM - 5:00 PM Central Time. 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 Patient declined 02/21/2022 Do you belong to any clubs o r organizations such as taoism groups, unions, fraternal or athletic groups, or [...] and heating? Not hard at all 02/21/2022 [facility] [place] of Occupat ional Health - Occupational Stress [...] or slept in a [facility] (including now)? No 02/21/2022 Nutrition Answer Date [...] Comments Blood Pressure 146/73 05/02/2022 10:23 AM ANIMAL STICKER Pulse 76 05/02/2022 10:23 AM ANIMAL STICKER Temperature 36.8 ??C (98.3 ??F) 05/02/2022 10:[address] Respiratory Rate 12 01/28/2022 11:00 AM CDT Oxygen Saturation 96% 01/28/2022 11:00 AM CDT Inhaled Oxygen Concentration - - Weight 107 kg (234 lb 12.6 oz) 05/02/2022 10:23 AM ANIMAL STICKER Height 166.5 cm (5' 5.55) 05/02/2022 10:[address] Body Mass Index 38.42 05/02/2022 10:23 AM ANIMAL STICKER Plan of Treatment Not on file Medical Devices Implanted Type Area Mail Room Device Identifier Shelf Expiration Date Model / Serial / Lot Knee Implant Knee Implant Left: Knee Care Teams Director Graphics Relationship Specialty Start Date End Date Elsewhere, Pcp PCP - General Internal Medicine [facility]/22/22 [facility] Team Thermostat Repairer 01/22/22
--- OUTSIDE RECORDS SUMMARY | 2023-12-10 19:14 | XMS_ITS | Encounter Summary ---
Author Organization [employer] Address [address] [address] Care Team Providers Care Moss Picker Name Role Phone Gael Damico MD Primary Care Provider Encounter Details Date Type Department Care Team (Late st Contact Info) Description 12/31/2006 Consent for Procedure/Treatme nt [facility] 401 Mohs Surgery 401 [facility] [place] [address] aMrk Boyd MD [address] [place] [address] CONSENT FOR DIAGNOSTIC PROCEDURE Social History Tobacco [...] on filedocumented in this encounter Care Teams Moss Picker Relationship Specialty Start Date End Date Gael Damico MD [address] [place] [address] PCP - General Family Practice 08/01/22 documented as of this encounter
--- OUTSIDE RECORDS SUMMARY | 2023-12-10 19:14 | XMS_ITS | Encounter Summary ---
Author Organization [facility] Address [address], [place] [address] Care Team Providers Care Shift Foreman Name Role Phone Gael Damico MD Primary Care Provider [phone] Encounter Details Date Type Department Care Team (Late st Contact Info) Description 01/05/2012 Consent for Procedure/Treatme nt [facility] [address] [place] [address] [facility], Provider LV MRI SAFETY SCREENING CONSENT [...] as of this encounter Progress Notes * [facility], Provider - 01/05/2012 12:00 AM CDT documented in this encounter Plan of Treatment Not on file documented as of this encounter Visit Diagnoses Not on filedocumented in this encounter Care Teams Shift Foreman Relationship Specialty Start Date End Date Gael Damico MD [address] [place] [address] PCP - General Family Practice 08/01/22 documented as of this encounter
--- OUTSIDE RECORDS SUMMARY | 2023-12-10 19:14 | XMS_ITS ---
Author Organization [facility] Address [address] [place] [address] Care Team Providers Care Manager Heart Name Role Phone Unavailable Unavailable Unavailable Surgery Details Not on file Complications Check Surgery Details section. Procedure Estimated Blood Loss Check Surgery Details section. Procedure Findings Check Surgery Details section. Procedure Specimens Taken Check Surgery Details section.
== END 2023-12-10 19:36 | disposition home or self-care (01) ==
LOC: ED 19:11
PROVIDERS: Emergency Provider Emergency Medicine Emergency Medical Services; PCP Family Medicine
DX: B02.9 Zoster without complications (principal)
CPT/HCPCS: 99283; 99284

== ENCOUNTER 2024-03-17 14:45 | Outpatient (CLI) | payer OTHER, SELFPAY ==
--- OUTSIDE RECORDS SUMMARY | 2024-03-21 21:42 | XMS_ITS | Encounter Summary ---
Author Organization [employer] Address [address], [place] [address] Care Team Providers Care Rating Officer Name Role Phone Gael Damico MD Primary Care Provider Encounter Details Date Type Department Care Team (Late st Contact Info) Description 10/28/2016 Scanned History [facility] [address] [place] [id number] [facility], Provider [place] MRI SAFETY AND HEALTH [...] on filedocumented in this encounter Care Teams Rating Officer Relationship Specialty Start Date End Date Gael Damico MD [address] [place] [address] PCP - General Family Practice 08/01/22 documented as of this encounter
--- OUTSIDE RECORDS SUMMARY | 2024-03-21 21:42 | XMS_ITS | Encounter Summary ---
Author Organization [employer] Address [address] [address] Care Team Providers Care Wig Maker Name Role Phone Gael Damico MD Primary Care Provider Encounter Details Date Type Department Care Team (Late st Contact Info) Description 09/16/2017 Scanned History External to Transferred Record, Provider [facility] Social History Tobacco Use Types Packs/Day Years [...] on filedocumented in this encounter Care Teams Wig Maker Relationship Specialty Start Date End Date Gael Damico MD [address] [place] [address] PCP - General Family Practice 08/01/22 documented as of this encounter
--- OUTSIDE RECORDS SUMMARY | 2024-03-21 21:42 | XMS_ITS | Encounter Summary ---
Author Organization [employer] Address [address] [address] Care Team Providers Care Port Cdl A Driver Name Role Phone Gael Damico MD Primary Care Provider Encounter Details Date Type Department Care Team (Late st Contact Info) Description 01/05/2012 Consent for Procedure/Treatme nt [facility] [address] [place] [id number] [facility], Provider [place] MRI SAFETY SCREENING CONSENT [...] as of this encounter Progress Notes * [facility], Provider - 01/05/2012 12:00 AM CDT documented in this encounter Plan of Treatment Not on file documented as of this encounter Visit Diagnoses Not on filedocumented in this encounter Care Teams Port Cdl A Driver Relationship Specialty Start Date End Date Gael Damico MD [address] [place] [address] PCP - General Family Practice 08/01/22 documented as of this encounter
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
--- OUTSIDE RECORDS SUMMARY | 2024-03-21 21:42 | XMS_ITS | Clinical Summary ---
Author Organization [email or web address] Address [place], [place] [address] Care Team Providers Care Political Science Instructor Name Role Phone Ramses Cleary Primary Care [...] Encounters Date Type Department Care Team Description 03/17/2024 Office Visit [facility] [address] [place] [address] Radha Borjas MD Telehealth ([facility] - only telephone consultation/no video) 03/09/2024 Telephone [facility] [address] [place] [address] Ruy Tate AuD Questions 03/09/2024 Telephone [facility] [address] [place] [address] Ruy Tate, Jacky from Last 3 Months [...] history exists Tdap Completed 02/27/2011 Care Teams Political Science Instructor Relationship Specialty Start Date End Date Ramses Cleary PCP - General Family Practice 05/29/11
--- OUTSIDE RECORDS SUMMARY | 2024-03-21 21:42 | XMS_ITS | Encounter Summary ---
Author Organization [email or web address] Address [address], [place] [address] Care Team Providers Care Binding Stitcher Name Role Phone Gael Damico MD Primary Care Provider [phone] Encounter Details Date Type Department Care Team (Late st Contact Info) Description 10/29/2015 Consent for Procedure/Treatme nt [facility] [address] [place] [address] [facility], Provider [facility] INFORMED CONSENT Social History Tobacco [...] on filedocumented in this encounter Care Teams Binding Stitcher Relationship Specialty Start Date End Date Gael Damico MD [address] [place] [address] PCP - General Family Practice 08/01/22 documented as of this encounter
--- OUTSIDE RECORDS SUMMARY | 2024-03-21 21:42 | XMS_ITS | Encounter Summary ---
Author Organization [employer] Address [address], [place] [address] Care Team Providers Care Topographical Drafter Name Role Phone Gael Damico MD Primary Care Provider Encounter Details Date Type Department Care Team (Late st Contact Info) Description 10/08/2016 Scanned History [facility] [address] [place] [address] [facility], Provider LV MRI SAFETY AND HEALTH [...] on filedocumented in this encounter Care Teams Topographical Drafter Relationship Specialty Start Date End Date Gael Damico MD [address] [place] [address] PCP - General Family Practice 08/01/22 documented as of this encounter
--- OUTSIDE RECORDS SUMMARY | 2024-03-21 21:42 | XMS_ITS | Clinical Summary ---
Author Organization [facility] [employer] [facility] Address [address] [address] Phone Care Team Providers Care Dredge Or Barge Shore Hand Name Role Phone Gael Damico MD Primary Care Provider Camron Ohara MD Unavailable [phone] Allergies Active Allergy Reactions Criticality Noted Date [...] age to complete this topic Care Teams Dredge Or Barge Shore Hand Relationship Specialty Start Date End Date Gael Damico MD [facility] [address] [place] [address] PCP - General Family Medicine 11/14/23 Camron Ohara MD [address] [place] [address] Podiatry 11/14/23
--- OUTSIDE RECORDS SUMMARY | 2024-03-21 21:42 | XMS_ITS | Encounter Summary ---
Author Organization [employer] Address [address], [place] [address] Care Team Providers Care Pull Over Machine Operator Name Role Phone Gael Damico MD Primary Care Provider [phone] Encounter Details Date Type Department Care Team (Late st Contact Info) Description 03/25/2016 Correspondence [facility] [address] [facility] [place] [address] Wandy Goff PA-C TRA[facility]EL CLINIC [...] on filedocumented in this encounter Care Teams Pull Over Machine Operator Relationship Specialty Start Date End Date Gael Damico MD [address] [place] [address] PCP - General Family Practice 08/01/22 documented as of this encounter
--- OUTSIDE RECORDS SUMMARY | 2024-03-21 21:42 | XMS_ITS | Encounter Summary ---
Author Organization [employer] Address [address] [place] [address] Care Team Providers Care Risk Compliance Manager Name Role Phone Gael Damico MD Primary Care Provider Reason for Visit * Reason Comments Refill Encounter Details Date Type Department Care Team (Late st Contact Info) Description 12/03/2017 Nurse Triage Careline [address] [place], [place] [address] Unassigned, Provider [address] [place] [address] Refill Social History Tobacco Use Types Packs/Day [...] Quinn RN - 12/03/2017 7:29 PM CDT Patient/youth career specialist request: Input needed Medication Specific Request: See [...] per unit policy Protocols used: MEDICATION QUESTION [id number] Plan: Pravastatin 30 day/no refills ordered per standing order and sent to [facility] patient/caller to call back CareLine if symptoms get worse or if you have any further questions or concerns. The CareLine is available 05/01. Lenka Quinn RN 12/03/2017, 7:58 PM * Mine Carroll - 12/03/2017 7:17 PM CDT Verified patient identity using three identifiers: Yes Caller's relationship to patient: Self At which care system or clinic is the patient normally seen? [facility] Medication Questions/New Med Request/ Side Effects [...] on filedocumented in this encounter Care Teams Risk Compliance Manager Relationship Specialty Start Date End Date Gael Damico MD [address] [place] [address] PCP - General Family Practice 08/01/22 documented as of this encounter
--- OUTSIDE RECORDS SUMMARY | 2024-03-21 21:42 | XMS_ITS | Encounter Summary ---
Author Organization [employer] Address [address] [address] Care Team Providers Care Warm In Name Role Phone Gael Damico MD Primary Care Provider Encounter Details Date Type Department Care Team (Late st Contact Info) Description 08/04/2013 Consent for Procedure/Treatme nt Same Day Surgery [address] [place] [address] [facility], Provider [facility] INFORMED CONSENT Social History Tobacco Use Types [...] as of this encounter Progress Notes * [facility], Provider - 08/04/2013 12:00 AM CST OR WINDER documented in this encounter Plan of Treatment Not on file documented as of this encounter Visit Diagnoses Not on filedocumented in this encounter Care Teams Warm In Relationship Specialty Start Date End Date Gael Damico MD [address] [place] [address] PCP - General Family Practice 08/01/22 documented as of this encounter
--- OUTSIDE RECORDS SUMMARY | 2024-03-21 21:42 | XMS_ITS | Encounter Summary ---
Author Organization [facility] Address [address] [place] [address] Care Team Providers Care Manager Customer Name Role Phone Gael Damico MD Primary Care Provider [phone] Encounter Details Date Type Department Care Team (Late st Contact Info) Description 08/08/2019 Correspondence [facility] Urology [address] [place] [address] Waqas Rodney MD [address] [place] [address] SMG MEDICAL WRITTEN ORDER Social History Tobacco [...] filedocumented in this encounter Care Teams Manager Customer Relationship Specialty Start Date End Date Gael Damico MD [address] [address] PCP - General Family Practice 08/01/22 documented as of this encounter
--- OUTSIDE RECORDS SUMMARY | 2024-03-21 21:42 | XMS_ITS | Encounter Summary ---
Author Organization [employer] Address [address] [address] Care Team Providers Care Director Underwriter Sales Name Role Phone Gael Damico MD Primary Care Provider Encounter Details Date Type Department Care Team (Late st Contact Info) Description 10/28/2016 Consent for Procedure/Treatme [facility] Same Day Surgery [address] [place] [address] [facility], Provider [facility] INFORMED CONSENT Social History Tobacco [...] filedocumented in this encounter Care Teams Director Underwriter Sales Relationship Specialty Start Date End Date Gael Damico MD [address] [place] [address] PCP - General Family Practice 08/01/22 documented as of this encounter
--- OUTSIDE RECORDS SUMMARY | 2024-03-21 21:42 | XMS_ITS | Encounter Summary ---
Author Organization [employer] Address [address], [place] [address] Care Team Providers Care Insurance Counsel Name Role Phone Gael Damico MD Primary Care Provider [phone] Encounter Details Date Type Department Care Team (Late st Contact Info) Description 12/31/2006 Consent for Procedure/Treatme nt [facility] 401 Mohs Surgery 401 [place] [address] Mark Boyd MD [address] [place] [address] CONSENT FOR DIAGNOSTIC PROCEDURE Social History Tobacco [...] filedocumented in this encounter Care Teams Insurance Counsel Relationship Specialty Start Date End Date Gael Damico MD [address] [place] [address] PCP - General Family Practice 08/01/22 documented as of this encounter
--- OUTSIDE RECORDS SUMMARY | 2024-03-21 21:42 | XMS_ITS | Encounter Summary ---
Author Organization [facility] Address [address], [place] [address] Care Team Providers Care Technical Training Coordinator Name Role Phone Gael Damico MD Primary Care Provider [phone] Encounter Details Date Type Department Care Team (Late st Contact Info) Description 07/23/2018 Correspondence [facility] Urology [address] [place] [address] Waqas Rodney MD [address] [place] [address] SMG ORDER Social History Tobacco Use Types [...] filedocumented in this encounter Care Teams Technical Training Coordinator Relationship Specialty Start Date End Date Gael Damico MD [address] [place] [address] PCP - General Family Practice 08/01/22 documented as of this encounter
--- OUTSIDE RECORDS SUMMARY | 2024-03-21 21:42 | XMS_ITS | Encounter Summary ---
Author Organization [employer] Address [address], [place] [address] Care Team Providers Care Dumpling Machine Operator Name Role Phone Gael Damico MD Primary Care Provider [phone] Encounter Details Date Type Department Care Team (Late st Contact Info) Description 07/22/2013 Consent for Procedure/Treatme nt [facility] [address] [place] [address] [facility], Provider LV CONSENT FOR CONTRAST Social [...] as of this encounter Progress Notes * [facility], Provider - 07/22/2013 12:00 AM CST PROGRAM MANAGER documented in this encounter Plan of Treatment Not on file documented as of this encounter Visit Diagnoses Not on filedocumented in this encounter Care Teams Dumpling Machine Operator Relationship Specialty Start Date End Date Gael Damico MD [address] [place] [address] PCP - General Family Practice 08/01/22 documented as of this encounter
--- OUTSIDE RECORDS SUMMARY | 2024-03-21 21:42 | XMS_ITS | Encounter Summary ---
Author Organization [facility] Address [address], [place] [address] Care Team Providers Care Supervisor Cell Efficiency Name Role Phone aGel Damico MD Primary Care Provider Encounter Details Date Type Department Care Team (Late st Contact Info) Description 09/15/2017 Correspondence [facility] Urology [address] [place] [address] Waqas Rodney MD [address] [place] [address] SMG UROLOGICAL RX Social History Tobacco Use [...] filedocumented in this encounter Care Teams Supervisor Cell Efficiency Relationship Specialty Start Date End Date Gael Damico MD [address] [place] [address] PCP - General Family Practice 08/01/22 documented as of this encounter
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
--- OUTSIDE RECORDS SUMMARY | 2024-03-21 21:42 | XMS_ITS | Encounter Summary ---
Author Organization [employer] Address [address], [place] [address] Care Team Providers Care Model Artists' Name Role Phone Gael Damico MD Primary Care Provider [phone] Encounter Details Date Type Department Care Team (Late st Contact Info) Description 01/07/2017 Consent for Procedure/Treatme [facility], Provider WF CONSENT FOR SURGERY OR [...] on filedocumented in this encounter Care Teams Model Artists' Relationship Specialty Start Date End Date Gael Damico MD [address] [place] [address] PCP - General Family Practice 08/01/22 documented as of this encounter
--- OUTSIDE RECORDS SUMMARY | 2024-03-21 21:42 | XMS_ITS | Encounter Summary ---
Author Organization [facility] Address [address] [address] Care Team Providers Care Service Unit Operator Name Role Phone Gael Damico MD Primary Care Provider Encounter Details Date Type Department Care Team (Late st Contact Info) Description 06/18/2007 Consent for Procedure/Treatme nt [facility] 401 Mohs Surgery 401 [facility] [place] [address] Mark Boyd MD [address] [place] [address] CONSENT FOR PROCEDURE Social History Tobacco Use [...] * Mark Boyd - 06/18/2007 12:00 AM PRIVATE ADVISOR ATE ADVISOR documented in this encounter Plan of Treatment Not on file documented as of this encounter Visit Diagnoses Not on filedocumented in this encounter Care Teams Service Unit Operator Relationship Specialty Start Date End Date Gael Damico MD [address] [place] [address] PCP - General Family Practice 08/01/22 documented as of this encounter
== END 2024-03-17 14:46 | disposition home or self-care (01) ==
LOC: AMB 03-21 21:39
PROVIDERS: PCP Family Medicine; Visit Provider Family Medicine
DX: R41.82 Altered mental status, unspecified (principal); R53.1 Weakness
CPT/HCPCS: A0425; A0427

== ENCOUNTER 2024-03-17 15:21 | Emergency (ER) | payer OTHER, SELFPAY ==
[2024-03-17] VITALS (11 sets, daily range): BP systolic 124–157; BP diastolic 74–99; PULSE 59–69; RESP 16; TEMP 36.6; O2SAT 94–97; BMI 35.0
--- NOTE | 2024-03-17 15:35 | CRLHL7_ITS ---
For Patients: As a result of the Century Cures Act, medical imaging exams and procedure reports are released immediately into your electronic medical record. You may view this report before your referring provider. If you have questions, please contact your health care provider. INDICATION: Transient ischemic attack. TECHNIQUE: CTA head with contrast bolus tracking, 3D angiographic rendering using maximum intensity projection (MIP) and images permanently archived. FINDINGS: There is scattered intracranial atherosclerotic disease. There is normal opacification of the intracranial vasculature. There is no large vessel occlusion. No aneurysm is identified. IMPRESSION: No large vessel occlusion. Please note that all CT scans at this facility use dose modulation, iterative reconstruction, and/or weight-based dosing when appropriate to reduce radiation dose to as low as reasonably achievable. Dictated by Truman Foy MD @ 03/17/2024 9:19:56 PM (Electronically Signed)
--- NOTE | 2024-03-17 15:35 | CRLHL7_ITS ---
For Patients: As a result of the Century Cures Act, medical imaging exams and procedure reports are released immediately into your electronic medical record. You may view this report before your referring provider. If you have questions, please contact your health care provider. INDICATION: TIA. TECHNIQUE: CT head without contrast. COMPARISON: CT sinus dated 03/07/2022. FINDINGS: Brain parenchyma and extra-axial spaces: The lopez-white differentiation is normal. No sign of acute ischemia. No sign of mass, hemorrhage, or midline shift. No extra-axial fluid collection. Moderate to severe diffuse parenchymal volume loss with commensurate ex vacuo dilatation of the ventricles and sulci Skull base and calvarium: The visualized paranasal sinuses and mastoid air cells demonstrate no acute or significant findings. The visualized orbits are grossly unremarkable. No skull fractures. IMPRESSION: No sign of acute ischemia or intracranial hemorrhage. Please note that all CT scans at this facility use dose modulation, iterative reconstruction, and/or weight-based dosing when appropriate to reduce radiation dose to as low as reasonably achievable. Dictated by Ramses Lin MD @ 03/17/2024 4:22:09 PM (Electronically Signed)
--- NOTE | 2024-03-17 15:35 | CRLHL7_ITS ---
For Patients: As a result of the Century Cures Act, medical imaging exams and procedure reports are released immediately into your electronic medical record. You may view this report before your referring provider. If you have questions, please contact your health care provider. INDICATION: Transient ischemic attack. TECHNIQUE: CTA neck with contrast bolus tracking, 3D angiographic rendering using maximum intensity projection (MIP) and images permanently archived. FINDINGS: There is carotid atherosclerosis bilaterally. There is a mild stenosis at the origin of the right ICA, less than 50% by NASCET, due to irregular plaque. There is no significant vertebral artery stenosis or dissection. The soft tissues of the neck are within normal limits. The cervical spine is in normal alignment. Degenerative changes are noted in the cervical spine. IMPRESSION: Mild stenosis at the origin of the right ICA, less than 50% by NASCET. Please note that all CT scans at this facility use dose modulation, iterative reconstruction, and/or weight-based dosing when appropriate to reduce radiation dose to as low as reasonably achievable. Dictated by Truman Foy MD @ 03/17/2024 9:22:42 PM (Electronically Signed)
--- NOTE | 2024-03-17 15:36 | ED.NURSE ---
MDs in ER updated on Pt triage and current state of absence of stroke symptoms.
--- NOTE | 2024-03-17 15:55 | CRLHL7_ITS ---
For Patients: As a result of the Century Cures Act, medical imaging exams and procedure reports are released immediately into your electronic medical record. You may view this report before your referring provider. If you have questions, please contact your health care provider. INDICATION: TIA. COMPARISON: 03/17/2024. TECHNIQUE: Multiplanar T1, T2, FLAIR and diffusion-weighted imaging. FINDINGS: Moderate severe generalized volume loss. Scattered patchy T2/FLAIR signal hyperintensity within the white matter of both cerebral hemispheres consistent with chronic deep white matter small ischemic changes. No intracranial hemorrhage. Compensatory mild dilatation ventricular system. Intracranial vascular flow voids preserved. No mass effect. No midline shift. No restricted diffusion to suggest acute ischemia. No susceptibility artifact of remote hemorrhage. Bilateral orbits are unremarkable. Normal appearing sella. Visualized paranasal sinuses mastoid air cells are unremarkable. IMPRESSION: 1. Moderate to severe generalized cerebral volume loss. Chronic deep white matter small vessel ischemic changes 2. No acute intracranial abnormality 3. No acute or chronic intracranial hemorrhage Dictated by Pablo Beasley MD @ 03/17/2024 6:18:14 PM (Electronically Signed)
[2024-03-17 16:15] LABS: Basophils Absolute Auto 0.03 K/uL (0.00-0.30); Basophils Percent Auto 0.3 % (0.0-3.0); Eosinophils Absolute Auto 0.22 K/uL (0.00-0.50); Eosinophils Percent Auto 2.2 % (0.0-7.0); Hematocrit 41.2 % (37.0-53.0); Immature Granulocytes Abs Auto 0.01 K/uL (0.00-0.30); Immature Granulocytes Pct Auto 0.1 %; Lymphocytes Percent Auto 24.5 % (20-44); Mean Corpuscular HGB Conc 32 gm/dL (32-36); Mean Corpuscular Hemoglobin 28 pg (26-34); Mean Corpuscular Volume 89 fL (80-100); Monocytes Percent Auto 9.8 % (0.0-11.0); Neutrophils Absolute Auto 6.44 K/uL (1.7-7.0); Neutrophils Percent Auto 63.1 % (42.0-72.0); Platelet Count* 241 K/uL (140-440); RDW Coefficient of Variation % 14.9 % (11.5-15.5); Red Blood Count 4.65 m/uL (4.30-5.90)
--- OUTSIDE RECORDS SUMMARY | 2024-03-17 16:23 | XMS_ITS | Clinical Summary ---
Author Organization [facility] Address [place], [place] [address] Care Team Providers Care Environmental Resource Specialist Name Role Phone Ramses Cleary Primary Care Provider Unavailabl e Allergies Active Allergy Reactions Criticality Noted [...] 06/29/2001 COUGH-CHRONIC , STABLE. NEG BRONCH/ENT EVAL. 200 1 12/30/2011 HME-EXAMINATION, ROUTINE MEDICAL 06/20/1999 12/30/2011 [...] Encounters Date Type Department Care Team Description 03/09/2024 Telephone [facility] [address] [place] [address] Ruy Tate, Jacky Questions 03/09/2024 Telephone [facility] [address] [place] [address] Ruy Tate, Jacky from Last 3 Months Immunizations Name Administration Dates Next Due Influenza, High-dose Inactivated 02/28/2011 Influenza, IIV3 (Age >=3 years) 03/21/20 10,03/21/2008,04/10/2005,2003,05/10/2001 Pneumococcal Poly,23-Valent (Pneumovax) 09/22/2007,10/21/1995 Td (Age >=7 [...] 4 Bro w. ca of [place] ryngx/nodes.- [facility] lung ca.~Family Hx of HX, FAMILY, MALIGNANCY, [...] of 2 - PCV) 09/21/2008 09/22/2007, 10/21/1995 RSV vaccine for adults or (1 - 1-dose 75+ series) 2010 Tetanus booster 02/27/2021 02/27/2011, 07/03/1993 COVID-19 vaccine series (2023- season) 2024 07/10/2022, 12/24/2021, 03/22/2021, Additional history exists Influenza for age 65+ 02/14/2024 02/28/2011 , 03/21/2010, 03/21/2008, Additional history exists Tdap Completed 02/27/2011 Care Teams Environmental Resource Specialist Relationship Specialty Start Date End Date Ramses Cleary PCP - General Family Practice 05/29/11
--- OUTSIDE RECORDS SUMMARY | 2024-03-17 16:23 | XMS_ITS | Clinical Summary ---
Author Organization [facility] Address [address] [address] Phone Care Team Providers Care Commercial Technician Name Role Phone Gael Damico MD Primary Care Provider Camron Ohara MD Unavailable [phone] Allergies Active Allergy Reactions Criticality Noted Date [...] by mouth one time a day. Active Social History Tobacco Use Types Packs/Day Years [...] Order) (1 of 1 - PCV) 2000 COVID-19 Vaccine ( - 2022-2 4 season) 2024 Influenza Vaccine Seasonal (Standing Order) (#1) 2024 HPV Vaccine (Standing Order) Aged Out No longer eligible based on patient's age to complete this topic Hepatitis B Vaccine (Standin g Order) Aged Out No longer eligible b ased on patient's age to complete this topic Care Teams Commercial Technician Relationship Specialty Start Date End Date Gael Damico MD [facility] [address] [place] [address] PCP - General Family Medicine 11/14/23 Camron Ohara MD [address] [place] [address] Podiatry 11/14/23
[2024-03-17 16:24] LABS: Troponin, Point-of-Care* 0.01 ng/ml (0.01-0.04)
--- OUTSIDE RECORDS SUMMARY | 2024-03-17 16:24 | XMS_ITS | Encounter Summary ---
Author Organization [facility] Address [address] [address] Care Team Providers Care Bonding Supervisor Name Role Phone Gael Damico MD Primary Care Provider Encounter Details Date Type Department Care Team (Late st Contact Info) Description 07/23/2018 Correspondence [facility] Urology [address] [place] [address] Waqas Rodney MD [address] [place] [address] SMG ORDER Social History Tobacco Use Types [...] on filedocumented in this encounter Care Teams Bonding Supervisor Relationship Specialty Start Date End Date Gael Damico MD [address] [place] [address] PCP - General Family Practice 08/01/22 documented as of this encounter
--- OUTSIDE RECORDS SUMMARY | 2024-03-17 16:24 | XMS_ITS | Encounter Summary ---
Author Organization [facility] Address [address], [place] [address] Care Team Providers Care Rn Intern Name Role Phone Gael Damico MD Primary Care Provider [phone] Encounter Details Date Type Department Care Team (Late st Contact Info) Description 09/15/2017 Correspondence [facility] Urology [address] [place] [address] Waqas Rodney MD [address] [place] [address] SMG UROLOGICAL RX Social History Tobacco Use [...] filedocumented in this encounter Care Teams Rn Intern Relationship Specialty Start Date End Date Gael Damico MD [address] [place] [address] PCP - General Family Practice 08/01/22 documented as of this encounter
--- OUTSIDE RECORDS SUMMARY | 2024-03-17 16:24 | XMS_ITS | Encounter Summary ---
Author Organization [facility] Address [address], [place] [address] Care Team Providers Care Restaurant Floor Manager Name Role Phone aGel Damico MD Primary Care Provider Encounter Details Date Type Department Care Team (Late st Contact Info) Description 06/18/2007 Consent for Procedure/Treatme nt [facility] [address] [facility] [place] [address] Mark Boyd MD [address] [place] [address] CONSENT FOR PROCEDURE Social History Tobacco Use [...] * Mark Boyd - 06/18/2007 12:00 AM POLYSOMNOGRAPHER SOMNOGRAPHER documented in this encounter Plan of Treatment Not on file documented as of this encounter Visit Diagnoses Not on filedocumented in this encounter Care Teams Restaurant Floor Manager Relationship Specialty Start Date End Date Gael Damico MD [address] [place] [address] PCP - General Family Practice 08/01/22 documented as of this encounter
--- OUTSIDE RECORDS SUMMARY | 2024-03-17 16:24 | XMS_ITS | Encounter Summary ---
Author Organization [facility] Address [address] [address] Care Team Providers Care Press Operator Name Role Phone Gael Damico MD Primary Care Provider Encounter Details Date Type Department Care Team (Late st Contact Info) Description 07/22/2013 Consent for Procedure/Treatme nt [facility] [address] [place] [address] [facility], Provider LV CONSENT FOR CONTRAST [...] as of this encounter Progress Notes * [facility], Provider - 07/22/2013 12:00 AM CST PULLER documented in this encounter Plan of Treatment Not on file documented as of this encounter Visit Diagnoses Not on filedocumented in this encounter Care Teams Press Operator Relationship Specialty Start Date End Date Gael Damico MD [address] [place] [address] PCP - General Family Practice 08/01/22 documented as of this encounter
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
--- OUTSIDE RECORDS SUMMARY | 2024-03-17 16:24 | XMS_ITS | Encounter Summary ---
Author Organization [facility] Address [address], [place] [address] Care Team Providers Care Php Wordpress Developer Name Role Phone Gael Damico MD Primary Care Provider [phone] Encounter Details Date Type Department Care Team (Late st Contact Info) Description 10/29/2015 Consent for Procedure/Treatme nt [facility] [address] [place] [address] [facility], Provider [facility] INFORMED CONSENT Social History Tobacco Use [...] on filedocumented in this encounter Care Teams Php Wordpress Developer Relationship Specialty Start Date End Date Gael Damico MD [address] [place] [address] PCP - General Family Practice 08/01/22 documented as of this encounter
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
--- OUTSIDE RECORDS SUMMARY | 2024-03-17 16:24 | XMS_ITS | Encounter Summary ---
Author Organization [facility] Address [address] [address] Care Team Providers Care Pl Sql Developer Name Role Phone Gael Damico MD Primary Care Provider Encounter Details Date Type Department Care Team (Late st Contact Info) Description 10/08/2016 Scanned History [facility] [address] [place] [address] [facility], Provider LV MRI SAFETY AND [...] on filedocumented in this encounter Care Teams Pl Sql Developer Relationship Specialty Start Date End Date Gael Damico MD [address] [place] [address] PCP - General Family Practice 08/01/22 documented as of this encounter
--- OUTSIDE RECORDS SUMMARY | 2024-03-17 16:24 | XMS_ITS | Encounter Summary ---
Author Organization [facility] Address [address] [place] [address] Care Team Providers Care Air Carrier Operations Inspector Name Role Phone Gael Damico MD Primary Care Provider [phone] Encounter Details Date Type Department Care Team (Late st Contact Info) Description 08/08/[address] [facility] Urology [address] [place] [address] Waqas Rodney MD [address] [place] [address] SMG MEDICAL WRITTEN ORDER Social History Tobacco [...] on filedocumented in this encounter Care Teams Air Carrier Operations Inspector Relationship Specialty Start Date End Date Gael Damico MD [address] [place] [address] PCP - General Family Practice 08/01/22 documented as of this encounter
--- OUTSIDE RECORDS SUMMARY | 2024-03-17 16:24 | XMS_ITS | Encounter Summary ---
Author Organization [facility] Address [address], [place] [address] Care Team Providers Care Director Of Counseling Name Role Phone Gael Damico MD Primary Care Provider Encounter Details Date Type Department Care Team (Late st Contact Info) Description 09/16/2017 Scanned History External to Transferred Record, Provider [facility] Social History Tobacco Use Types Packs/Day [...] in this encounter Care Teams Director Of Counseling Relationship Specialty Start Date End Date Gael Damico MD [address] [place] [address] PCP - General Family Practice 08/01/22 documented as of this encounter
--- OUTSIDE RECORDS SUMMARY | 2024-03-17 16:24 | XMS_ITS | Encounter Summary ---
Author Organization [employer] Address [address] [place] [address] Care Team Providers Care Dehydrogenation Supervisor Name Role Phone Gael Damico MD Primary Care Provider Reason for Visit * Reason Comments Refill Encounter Details Date Type Department Care Team (Late st Contact Info) Description 12/03/2017 Nurse Triage Careline [address] [place], [place] [id number] Unassigned, Provider [address] [place] [address] Refill Social History Tobacco Use Types Packs/Day [...] Quinn RN - 12/03/2017 7:29 PM CDT Patient/dog day care attendant request: Input needed Medication Specific Request: See [...] per unit policy Protocols used: MEDICATION QUESTION [id number] Plan: Pravastatin 30 day/no refills ordered per standing order and sent to [facility] patient/caller to call back CareLine if symptoms get worse or if you have any further questions or concerns. The CareLine is available 05/01. Lenka Quinn RN 12/03/2017, 7:58 PM * Mine Carroll - 12/03/2017 7:17 PM CDT Verified patient identity using three identifiers: Yes Caller's relationship to patient: Self At which care system or clinic is the patient normally seen? [facility] Medication Questions/New Med Request/ Side Effects [...] on filedocumented in this encounter Care Teams Dehydrogenation Supervisor Relationship Specialty Start Date End Date Gael Damico MD [address] [place] [address] PCP - General Family Practice 08/01/22 documented as of this encounter
--- OUTSIDE RECORDS SUMMARY | 2024-03-17 16:24 | XMS_ITS | Encounter Summary ---
Author Organization [employer] Address [address], [place] [address] Care Team Providers Care Litigation Examiner Name Role Phone Gael Damico MD Primary Care Provider Encounter Details Date Type Department Care Team (Late st Contact Info) Description 10/28/2016 Consent for Procedure/Treatme [facility] Same Day Surgery [address] [place] [address] [facility] INFORMED CONSENT Social History Tobacco Use Types [...] on filedocumented in this encounter Care Teams Litigation Examiner Relationship Specialty Start Date End Date Gael Damico MD [address] [place] [address] PCP - General Family Practice 08/01/22 documented as of this encounter
--- OUTSIDE RECORDS SUMMARY | 2024-03-17 16:24 | XMS_ITS | Encounter Summary ---
Author Organization [employer] Address [address] [address] Care Team Providers Care Slag Worker Name Role Phone Gael Damico MD Primary Care Provider Encounter Details Date Type Department Care Team (Late st Contact Info) Description 03/25/2016 Correspondence Travel and T[facility] [address] [place] [address] Wandy Goff PA-C [facility] PAYMENT AGREEMENT WAIVER Social History [...] on filedocumented in this encounter Care Teams Slag Worker Relationship Specialty Start Date End Date Gael Damico MD [address] [place] [address] PCP - General Family Practice 08/01/22 documented as of this encounter
--- OUTSIDE RECORDS SUMMARY | 2024-03-17 16:24 | XMS_ITS | Encounter Summary ---
Author Organization [employer] Address [address], [place] [address] Care Team Providers Care Business Development Recruiter Name Role Phone Gael Damico MD Primary Care Provider [phone] Encounter Details Date Type Department Care Team (Late st Contact Info) Description 12/31/2006 Consent for Procedure/Treatme [facility] [address] [place] [address] Mark Boyd MD [address] [place] [address] CONSENT FOR DIAGNOSTIC PROCEDURE Social History Tobacco [...] filedocumented in this encounter Care Teams Business Development Recruiter Relationship Specialty Start Date End Date Gael Damico MD [address] [place] [address] PCP - General Family Practice 08/01/22 documented as of this encounter
--- OUTSIDE RECORDS SUMMARY | 2024-03-17 16:24 | XMS_ITS | Encounter Summary ---
Author Organization [employer] Address [address], [place] [address] Care Team Providers Care Shirt Marker Name Role Phone Gael Damico MD Primary Care Provider Encounter Details Date Type Department Care Team (Late st Contact Info) Description 01/07/2017 Consent for Procedure/Treatme [facility], Provider [facility] CONSENT FOR SURGERY OR PROCEDURE [...] on filedocumented in this encounter Care Teams Shirt Marker Relationship Specialty Start Date End Date Gael Damico MD [address] [place] [address] PCP - General Family Practice 08/01/22 documented as of this encounter
--- OUTSIDE RECORDS SUMMARY | 2024-03-17 16:24 | XMS_ITS | Encounter Summary ---
Author Organization [employer] Address [address], [place] [address] Care Team Providers Care Supply Analyst Name Role Phone Gael Damico MD Primary Care Provider Encounter Details Date Type Department Care Team (Late st Contact Info) Description 01/05/2012 Consent for Procedure/Treatme nt [facility] [address] [place] [address] [facility], Provider [place] MRI SAFETY SCREENING CONSENT Social [...] * [facility], Provider - 01/05/2012 12:00 AM CDT documented in this encounter Plan of Treatment Not on file documented as of this encounter Visit Diagnoses Not on filedocumented in this encounter Care Teams Supply Analyst Relationship Specialty Start Date End Date Gael Damico MD [address] [place] [address] PCP - General Family Practice 08/01/22 documented as of this encounter
--- OUTSIDE RECORDS SUMMARY | 2024-03-17 16:24 | XMS_ITS | Encounter Summary ---
Author Organization [employer] Address [address] [address] Care Team Providers Care Scouring Machine Operator Name Role Phone Gael Damico MD Primary Care Provider Encounter Details Date Type Department Care Team (Late st Contact Info) Description 08/04/2013 Consent for Procedure/Treatme nt Same Day Surgery [address] [place] [address] [facility], Provider [facility] INFORMED CONSENT Social History Tobacco Use [...] as of this encounter Progress Notes * [facility], Provider - 08/04/2013 12:00 AM CST [employer] documented in this encounter Plan of Treatment Not on file documented as of this encounter Visit Diagnoses Not on filedocumented in this encounter Care Teams Scouring Machine Operator Relationship Specialty Start Date End Date Gael Damico MD [address] [place] [address] PCP - General Family Practice 08/01/22 documented as of this encounter
--- OUTSIDE RECORDS SUMMARY | 2024-03-17 16:24 | XMS_ITS | Encounter Summary ---
Author Organization [employer] Address [address] [address] Care Team Providers Care Export Specialist Name Role Phone Gael Damico MD Primary Care Provider Encounter Details Date Type Department Care Team (Late st Contact Info) Description 10/28/2016 Scanned History [facility] [address] [place] [address] [facility], Provider [place] MRI SAFETY AND [...] on filedocumented in this encounter Care Teams Export Specialist Relationship Specialty Start Date End Date Gael Damico MD [address] [place] [address] PCP - General Family Practice 08/01/22 documented as of this encounter
[2024-03-17 16:26] LABS: Slide Review Reflex No
[2024-03-17 16:28] LABS: Chloride* 107 mmol/L (96-114); Sodium* 139 mmol/L (135-149)
[2024-03-17 16:29] LABS: Potassium* 3.9 mmol/L (3.6-5.1)
[2024-03-17 16:31] LABS: Anion Gap 6 mEq/L (7-15); Carbon Dioxide* 26 mmol/L (20-32); Creatinine* 1.3 mg/dL (0.5-1.5); Estimated Glomerular Filt Rate 53 ml/min
[2024-03-17 16:32] LABS: Blood Urea Nitrogen* 25 mg/dL (7-30); Calcium* 8.7 mg/dL (8.4-10.6); Glucose* 98 mg/dL (60-115)
[2024-03-17] MEDS: ASPIRIN 81 MG TAB.CHEW 324 MG PO (16:45)
[2024-03-17] MEDS: CLOPIDOGREL 300 MG TABLET PO (16:45)
--- NOTE | 2024-03-17 16:56 | ED.NEUROSD ---
HPI - Neuro Symptoms/Deficit General Date Seen: 03/17/24 Chief Complaint: Neuro Symptoms/Altered Deficit Stated Complaint: Weakness Time Seen by Provider: 03/17/24 15:34 Source: patient Mode of arrival: EMS Limitations: no limitations History of Present Illness HPI Narrative: Patient is an 88-year-old male with a previous history of at TIA, previous smoker presenting to the emergency department for symptoms of dysarthria and slurred speech. He states about 14:45 while he was having conversation with his he suddenly was unable to speak. States he he could think the words but was unable to form words. His described his speech is very slurred. The symptoms lasted about 5 minutes and then fully resolved. EMS was called and he was brought to the hospital. Patient is currently symptom-free in states the only symptom he had when occurred was difficulty speaking. He now states he has some anxiety with it but in lab feels fine. Denies fevers, chills, chest pain, shortness of breath, headache, weakness, numbness, abdominal pain, diarrhea, constipation, lightheadedness, vision changes. Does states he previously was told he had TIA a few years ago and was related to dizziness. Was not started on any medication at that time. Used have a history of hypertension but currently is not on any blood pressure medication. Quit smoking 30+ years ago. No other concerns noted. Related Data Home Medications ?Medication ?Instructions ?Recorded ?Confirmed acetaminophen 500 mg tablet 1,000 mg PO BID PRN 06/20/22 03/03/24 (Tylenol Extra Strength) montelukast 10 mg tablet 10 mg PO QDAY 06/20/22 03/03/24 dorzolamide 22.3 mg-timolol 6.8 1 drp ophthalmic (eye) BID 07/22/22 03/03/24 mg/mL eye drops vit C 250 mg-vit E 200 unit-zinc 1 tab PO BID 12/26/22 03/03/24 12.5 mg-copper 1 [id number] tablet (ICaps AREDS2 (copper citrate)) guaifenesin [Mucinex] 1 tab PO QDAY 02/25/24 03/03/24 Previous Rx's ?Medication ?Instructions ?Recorded albuterol sulfate 90 mcg/actuation 2 puff inhalation Q4-6H PRN 06/13/22 aerosol inhaler shortness of breath or wheezing #8.5 grams ipratropium 0.5 mg-albuterol 3 mg 3 ml inhalation Q6H PRN wheezing 06/20/22 (2.5 mg base)/3 mL nebulization #90 mL soln nebulizers #1 ea 06/27/22 allopurinol 100 mg tablet 100 mg PO QDAY #90 tabs 11/05/23 omeprazole 20 mg capsule,delayed 20 mg PO BID #180 caps 12/25/23 release hydroxyzine HCl 25 mg tablet 25 mg PO QID PRN itching #40 tabs 01/18/24 pregabalin 100 mg capsule 100 mg PO BID #60 caps 02/01/24 pregabalin 50 mg capsule 50 mg PO QDAY #30 caps 02/25/24 furosemide 20 mg tablet (Lasix) 20 mg PO QAM #30 tabs 02/26/24 aspirin 81 mg capsule 81 mg PO DAILY #30 caps 03/17/24 clopidogrel 75 mg tablet (Plavix) 75 mg PO DAILY #30 tabs 03/17/24 Allergies Allergy/AdvReac Type Severity Reaction Status Date / Time acetaminophen Allergy Severe Anaphylaxis Verified 03/17/24 15:30 [From Excedrin Extra Strength] aspirin Allergy Severe Anaphylaxis Verified 03/17/24 15:30 [From Excedrin Extra Strength] banana Allergy Severe Anaphylaxis Verified 03/17/24 15:30 walnut Allergy Severe Anaphylaxis Verified 03/17/24 15:30 watermelon Allergy Severe Anaphylaxis Verified 03/17/24 15:30 levofloxacin [From Levaquin] Allergy Unknown Hamstring Verified 03/17/24 15:30 Tendonitis Review of Systems Status of ROS: Reports: 10 or more systems reviewed and unremarkable except as noted in History and below [facility] Medical History Mixed hyperlipidemia ?E78.2 - Mixed hyperlipidemia (ICD-10) History of gout ?Z87.39 - Personal history of other diseases of the musculoskeletal system and connective tissue (ICD-10) Primary hypertension ?I10 - Essential (primary) hypertension (ICD-10) Primary open angle glaucoma (POAG) ?H40.1190 - Primary open-angle glaucoma, unspecified eye, stage unspecified (ICD-10) Age-related macular degeneration ?H35.30 - Unspecified macular degeneration (ICD-10) History of prostate cancer ?Z85.46 - Personal history of malignant neoplasm of prostate (ICD-10) Chronic cough ?R05.3 - Chronic cough (ICD-10) History of TIA (transient ischemic attack) (11/2021) ?Z86.73 - Personal history of transient ischemic attack (TIA), and cerebral infarction without residual deficits (ICD-10) 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 - Vertebro-basilar artery syndrome (ICD-10) Hemoptysis (10/2021) ?R04.2 - Hemoptysis (ICD-10) GERD (gastroesophageal reflux disease) ?K21.9 - Gastro-esophageal reflux disease without esophagitis (ICD-10) Surgical History History of repair of right rotator cuff ?Z98.890 - Other specified postprocedural states (ICD-10) History of tonsillectomy ?Z90.89 - Acquired absence of other organs (ICD-10) History of back surgery ?Z98.890 - Other specified postprocedural states (ICD-10) History of phacoemulsification of cataract of both eyes with intraocular lens implantation ?Z98.41 - Cataract extraction status, right eye (ICD-10) ?Z98.42 - Cataract extraction status, left eye (ICD-10) ?Z96.1 - Presence of intraocular lens (ICD-10) History of esophagogastroduodenoscopy (EGD) (01/21/22) ?Z98.890 - Other specified postprocedural states (ICD-10) History of basal cell carcinoma (BCC) (2005) ?Z85.828 - Personal history of other malignant neoplasm of skin (ICD-10) History of transurethral resection of prostate ?Z98.890 - Other specified postprocedural states (ICD-10) ?Z90.79 - Acquired absence of other genital organ(s) (ICD-10) History of bronchoscopy (01/28/22) ?Z98.890 - Other specified postprocedural states (ICD-10) History of total left knee replacement ?Z96.652 - Presence of left artificial knee joint (ICD-10) Family History Father Colon cancer Prostate cancer Coronary artery disease Social History 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: , 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, 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 What is your current living situation?: I presently have a place to live Problems where you live: no known problems In the past 12 months, utilities in danger of being shut off: no In past 12 months, lack of transportation kept you from medical appts, meetings, work, or getting things needed for daily living: no In the past 12 mos, have been you worried that your food would run out before you had money to buy more?: never true In the past 12 mos, the food you bought just didn't last and you didn't have money to buy more?: never true Smoking Status: Former smoker Do you use any of these nicotine containing products: None How often do you have a drink containing alcohol: 2-3 times a week AUDIT-C Alcohol total score: 3 Non-prescribed substance use: denies use How often does anyone, including family, friends and others, physically hurt you: never How often does anyone, including family, friends and others, insult or talk down to you: never How often does anyone, including family, friends and others, threaten you with harm: never How often does anyone, including family, friends and others, scream or curse at you: rarely Little interest or pleasure in doing things: not at all Feeling down, depressed, or hopeless: not at all Exam Narrative: Exam Narrative: Const: Well-nourished, Well-developed, in no distress Eyes: PERRL, no conjunctival injection, and symmetrical lids HENT: Atraumatic external nose and ears. Moist mucous membranes. Neck: Symmetric, trachea midline, No thyromegaly. CVS: RRR, No murmurs or gallops. Peripheral pulses 2+ and equal in all extremities RESP: Unlabored respiratory effort. Clear to auscultation bilaterally. GI: Nontender/Nondistended, No rebound or guarding. MSK:Extremities w/o deformity, Normal Active ROM Skin: Warm, Dry. No rashes or lesions. Neuro: Normal Muscle tone, Cranial nerves 2-12 grossly intact, normal [id number], normal [id number], normal gait, normal strength 5/5 upper lower extremities bilaterally, normal sensation upper and lower extremities bilaterally, normal rapid alternating movements. Psych: Awake, Alert, & Oriented x3. Appropriate mood and affect. Const: Vital Signs, click to edit/add: Vital Signs - 24 hr 03/17/24 15:24 03/17/24 16:20 03/17/24 16:24 Temperature 97.8 F Pulse Rate 64 65 Pulse Rate [Pulse Oximeter] 69 Respiratory Rate 16 Blood Pressure 132/99 H Blood Pressure [Ri ght Upper Arm] 128/82 Pulse Oximetry 96 95 96 Oxygen Delivery Me thod Room Air 03/17/24 16:30 03/17/24 16:31 03/17/24 16:45 Temperature Pulse Rate 63 62 63 Pulse Rate [Pulse Oximeter] Respiratory Rate Blood Pressure 124/76 Blood Pressure [Ri ght Upper Arm] Pulse Oximetry 94 95 95 Oxygen Delivery Me thod 03/17/24 17:00 03/17/24 17:02 03/17/24 17:15 Temperature Pulse Rate 65 62 64 Pulse Rate [Pulse Oximeter] Respiratory Rate Blood Pressure 132/74 Blood Pressure [Ri ght Upper Arm] Pulse Oximetry 95 97 96 Oxygen Delivery Me thod 03/17/24 18:07 03/17/24 18:08 Temperature Pulse Rate 64 59 L Pulse Rate [Pulse Oximeter] Respiratory Rate Blood Pressure 157/94 H Blood Pressure [Ri ght Upper Arm] Pulse Oximetry 95 97 Oxygen Delivery Me thod Course Vital Signs Vital signs: Initial Vital Signs Temperature 97.8 F 03/17/24 15:24 Temperature Source Temporal Artery Scan 03/17/24 15:24 Pulse Rate 69 03/17/24 15:24 Respiratory Rate 16 03/17/24 15:24 Blood Pressure 128/82 03/17/24 15:24 Blood Pressure Mean 97 03/17/24 15:24 Blood Pressure Position Semi-Fowlers 03/17/24 15:24 Pulse Oximetry 96 03/17/24 15:24 Oxygen Delivery Method Room Air 03/17/24 15:24 Vital Signs Temperature 97.8 F 03/17/24 15:24 Pulse Rate 69 03/17/24 15:24 Respiratory Rate 16 03/17/24 15:24 Blood Pressure 128/82 03/17/24 15:24 Pulse Oximetry 96 03/17/24 15:24 Oxygen Delivery Method Room Air 03/17/24 15:24 Temperature 97.8 F 03/17/24 15:24 Pulse Rate 59 L 03/17/24 18:08 Respiratory Rate 16 03/17/24 15:24 Blood Pressure 157/94 H 03/17/24 18:08 Pulse Oximetry 97 03/17/24 18:08 Oxygen Delivery Method Room Air 03/17/24 15:24 Medications Administered Medications: Discontinued Medications Generic Name Dose Route Start Last Admin Trade Name Valerie PRN Reason Stop Dose Admin Aspirin 324 mg 03/17/24 16:24 03/17/24 16:45 Aspirin 81 Mg Tab.Chew PO 03/17/24 16:25 324 mg ONCE ONE Administration Clopidogrel Bisulfate 300 mg 03/17/24 16:21 03/17/24 16:45 Clopidogrel 300 Mg Tablet PO 03/17/24 16:22 300 mg ONCE ONE Administration MDM - Neuro Symptoms/Deficit MDM Narrative Medical decision making narrative: Patient is an 88-year-old male presenting for what sounds like a TIA. He is not having any symptoms at this time and since he is asymptomatic code stroke was not called initially. NIH stroke scale is 0. I did have a page out Neurology for consult see they are agreeable to my plan of CT/CTA and then MRI. I spoke to Dr. Renee who states this should be run as a code stroke which I then had them call. Patient did go to CT and CTA already at that point. I then spoke to Dr. Hahn part of the code stroke protocol and she does state that we were corrected not calling the code stroke on asymptomatic patient. She does give her recommendations though including an HB A1c and lipid panel for outpatient along with full dose of aspirin and Plavix follow-up aspirin 81 daily and Plavix 75 daily. Also states he will need an outpatient echocardiogram if imaging is all normal. Differential could also include electrolyte abnormality, infection, hemorrhagic stroke. Also order CBC, BMP, troponin, EKG. 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 He specifically states is only Excedrin any has had normal aspirin before several times without ever having issues. Troponin EKG showed no concerning abnormalities. Other lab work shows no concerning abnormalities. I did order HbA1c and lipid panel to help facilitate for his outpatient provider per Neurology recommendation. Patient has been asymptomatic throughout his time in emergency department and I and the radiologist both reviewed all of his imaging and there is no concerning abnormalities at this time. Do this he is safe for discharge and will get an outpatient echo. Him and his family are agreeable to this plan. Lab Data Labs: Lab Results 03/17/24 03/17/24 03/17/24 Range/Units 15:40 16:05 16:57 WBC 10.20 (4.50-11.00) K/uL RBC 4.65 (4.30-5.90) m/uL Hgb 13.0 L (13.5-17.5) gm/dL Hct 41.2 (37.0-53.0) % MCV 89 (80-100) fL MCH 28 (26-34) pg MCHC 32 (32-36) gm/dL RDW Coeff of Cricket 14.9 (11.5-15.5) % Plt Count 241 (140-440) K/uL Neut % (Auto) 63.1 (42.0-72.0) % Lymph % (Auto) 24.5 (20-44) % [place] % (Auto) 9.8 (0.0-11.0) % Eos % (Auto) 2.2 (0.0-7.0) % Baso % (Auto) 0.3 (0.0-3.0) % Neut # (Auto) 6.44 (1.7-7.0) K/uL Lymph # (Auto) 2.50 (0.90-2.90) K/uL [place] # (Auto) 1.00 H (0.00-0.90) K/UL Eos # (Auto) 0.22 (0.00-0.50) K/uL Baso # (Auto) 0.03 (0.00-0.30) K/uL Abs Immat Gran (auto) 0.01 (0.00-0.30) K/uL Imm/Tot Granulo (auto) 0.1 % Sodium 139 (135-149) mmol/L Potassium 3.9 (3.6-5.1) mmol/L Chloride 107 (96-114) mmol/L Carbon Dioxide 26 (20-32) mmol/L Anion Gap 6 L (7-15) mEq/L BUN 25 (7-30) mg/dL Creatinine 1.3 (0.5-1.5) mg/dL Estimated Creat Clear 38.00 Estimated GFR 53 ml/min Glucose 98 (60-115) mg/dL Hemoglobin A1c 5.7 H (0-5.6) % Calcium 8.7 (8.4-10.6) mg/dL Triglycerides 278 H (40-149) mg/dL Cholesterol 185 (90-199) mg/dL LDL Cholesterol, Calc 101 H (<100) mg/dL HDL Cholesterol 28 L (>=40) mg/dL Lab Acknowledgement Test Added POC Troponin I 0.01 (0.01-0.04) ng/ml 03/17/24 Range/Units 17:03 WBC (4.50-11.00) K/uL RBC (4.30-5.90) m/uL Hgb (13.5-17.5) gm/dL Hct (37.0-53.0) % MCV (80-100) fL MCH (26-34) pg MCHC (32-36) gm/dL RDW Coeff of Cricket (11.5-15.5) % Plt Count (140-440) K/uL Neut % (Auto) (42.0-72.0) % Lymph % (Auto) (20-44) % [place] % (Auto) (0.0-11.0) % Eos % (Auto) (0.0-7.0) % Baso % (Auto) (0.0-3.0) % Neut # (Auto) (1.7-7.0) K/uL Lymph # (Auto) (0.90-2.90) K/uL [place] # (Auto) (0.00-0.90) K/UL Eos # (Auto) (0.00-0.50) K/uL Baso # (Auto) (0.00-0.30) K/uL Abs Immat Gran (auto) (0.00-0.30) K/uL Imm/Tot Granulo (auto) % Sodium (135-149) mmol/L Potassium (3.6-5.1) mmol/L Chloride (96-114) mmol/L Carbon Dioxide (20-32) mmol/L Anion Gap (7-15) mEq/L BUN (7-30) mg/dL Creatinine (0.5-1.5) mg/dL Estimated Creat Clear Estimated GFR ml/min Glucose (60-115) mg/dL Hemoglobin A1c (0-5.6) % Calcium (8.4-10.6) mg/dL Triglycerides (40-149) mg/dL Cholesterol (90-199) mg/dL LDL Cholesterol, Calc (<100) mg/dL HDL Cholesterol (>=40) mg/dL Lab Acknowledgement Test Added POC Troponin I (0.01-0.04) ng/ml Imaging Data CT scan head: Attestation: I have reviewed the pertinent imaging results. Radiologist's impression: No sign of acute ischemia or intracranial hemorrhage. Please note that all CT scans at this facility use dose modulation, iterative reconstruction, and/or weight-based dosing when appropriate to reduce radiation dose to as low as reasonably achievable. Dictated by Ramses Lin MD @ 03/17/2024 4:22:09 PM CTA head and neck: Attestation: I have reviewed the pertinent imaging results. Radiologist's impression: CTA head: No sign of occlusion or significant aneurysm. CTA neck: No sign of dissection or significant stenosis. Dictated by Ramses Lin MD @ 03/17/2024 4:27:59 PM MR Brain: Attestation: I have reviewed the pertinent imaging results. Radiologist's impression: 1. Moderate to severe generalized cerebral volume loss. Chronic deep white matter small vessel ischemic changes 2. No acute intracranial abnormality 3. No acute or chronic intracranial hemorrhage Dictated by Pablo Beasley MD @ 03/17/2024 6:18:14 PM ECG Data Attestation: I personally reviewed and interpreted this ECG as follows: Prior ECG tracings: available for review Interpretation: Normal sinus rhythm with a rate 63 beats per minute, normal intervals, normal axis, no ST or T-wave abnormalities. Appears similar previous EKG from 12/01/2023 Discharge Plan Discharge Clinical Impression: Transient cerebral ischemia Patient Disposition: Home, Self-Care Condition: Stable Instructions: Transient Ischemic Attack (ED) Additional Instructions: I am starting you on aspirin 81 mg daily along with Plavix 75 mg daily. Follow-up with the primary care provider outpatient to get an outpatient echocardiogram. This is another name for an ultrasound of your heart. Return for any new or worsening symptoms. Prescriptions: New aspirin 81 mg capsule 81 mg PO DAILY Qty: 30 0RF clopidogrel [Plavix] 75 mg tablet 75 mg PO DAILY Qty: 30 0RF No Action albuterol sulfate 90 mcg/actuation HFA aerosol inhaler 2 puff inhalation Q4-6H PRN (Reason: shortness of breath or wheezing) Qty: 8.5 0RF montelukast 10 mg tablet 10 mg PO QDAY Patient Comments: TAKE 1 TABLET BY MOUTH EVERY DAY dorzolamide-timolol 22.3-6.8 mg/mL drops 1 drp ophthalmic (eye) BID Patient Comments: INSTILL 1 DROP IN BOTH EYES THREE TIMES DAILY guaifenesin [Mucinex] 1 tab PO QDAY acetaminophen [Tylenol Extra Strength] 500 mg tablet 1,000 mg PO BID PRN ipratropium-albuterol 0.5 mg-3 mg(2.5 mg base)/3 mL solution for nebulization 3 ml inhalation Q6H PRN (Reason: wheezing) Qty: 90 2RF ICaps AREDS2 (copper citrate) 250 mg-200 unit -12.5 mg-1 mg tablet 1 tab PO BID pregabalin 50 mg capsule 50 mg PO QDAY Qty: 30 1RF (DME) nebulizers Misc See Rx Instructions .Route Qty: 1 0RF Rx Instructions: As directed allopurinol 100 mg tablet 100 mg PO QDAY Qty: 90 0RF omeprazole 20 mg capsule,delayed release(DR/EC) 20 mg PO BID Qty: 180 0RF hydroxyzine HCl 25 mg tablet 25 mg PO QID PRN (Reason: itching) Qty: 40 1RF pregabalin 100 mg capsule 100 mg PO BID Qty: 60 1RF furosemide [Lasix] 20 mg tablet 20 mg PO QAM Qty: 30 1RF Follow Up/Referrals: Gael Damico MD [Primary Care Provider] - Stand Alone Forms: [facility] Info Instructions
[2024-03-17 17:16] LABS: Cholesterol* 185 mg/dL (90-199); HDL Cholesterol* 28 mg/dL (>=40); LDL Cholesterol Calculated 101 mg/dL (<100); Triglycerides* 278 mg/dL (40-149)
[2024-03-17 17:18] LABS: Hemoglobin A1C* 5.7 % (0-5.6)
== END 2024-03-17 18:45 | disposition home or self-care (01) ==
PROVIDERS: Emergency Medicine; Emergency Provider Student in an Organized Health Care Education/Training Program; PCP Family Medicine
DX: G45.9 Transient cerebral ischemic attack, unspecified (principal)
CPT/HCPCS: 36415; 70450; 70496; 70498; 70551; 80048; 80061; 82565; 83036; 84484; 85025; 93005; 99283; 99284; 99285; A9270; Q9967

== ENCOUNTER 2024-04-20 13:59 | Outpatient (CLI) | payer OTHER, MEDICARE, SELFPAY ==
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
--- OUTSIDE RECORDS SUMMARY | 2024-04-20 14:03 | XMS_ITS | Encounter Summary ---
Author Organization [facility] Address [address], [place] [address] Care Team Providers Care Crt Name Role Phone Gael Damico MD Primary Care Provider [phone] Encounter Details Date Type Department Care Team (Late st Contact Info) Description 07/23/2018 Correspondence [facility] Urology [address] [place] [address] Waqas Rodney MD [address] [place] [address] SMG ORDER Social History Tobacco Use Types [...] on filedocumented in this encounter Care Teams Crt Relationship Specialty Start Date End Date Gael Damico MD [address] [place] [address] PCP - General Family Practice 08/01/22 documented as of this encounter
--- OUTSIDE RECORDS SUMMARY | 2024-04-20 14:03 | XMS_ITS | Encounter Summary ---
Author Organization [employer] Address [address] [address] Care Team Providers Care Interface Designer Name Role Phone Gael Damico MD Primary Care Provider [phone] Encounter Details Date Type Department Care Team (Late st Contact Info) Description 10/28/2016 Consent for Procedure/Treatme [facility] Same Day Surgery [address] [place] [address] [facility], Provider [facility] INFORMED CONSENT Social History Tobacco [...] on filedocumented in this encounter Care Teams Interface Designer Relationship Specialty Start Date End Date Gael Damico MD [address] [place] [address] PCP - General Family Practice 08/01/22 documented as of this encounter
--- OUTSIDE RECORDS SUMMARY | 2024-04-20 14:03 | XMS_ITS | Encounter Summary ---
Author Organization [employer] Address [address] [place] [address] Care Team Providers Care Auto Bench Mechanic Name Role Phone Gael Damico MD Primary Care Provider [phone] Reason for Visit * Reason Comments Refill Encounter Details Date Type Department Care Team (Late st Contact Info) Description 12/03/2017 Nurse Triage Careline [address] [place], [place] [address] Unassigned, Provider [address] [place] [address] Refill Social History Tobacco Use Types Packs/Day [...] should he have a lipid check. Shruthi Alacntar CMA 12/04/2017 8:45 AM * Lenka Quinn RN - 12/03/2017 7:29 PM CDT Patient/acute care occupational therapist request: Input needed Medication Specific Request: See [...] per unit policy Protocols used: MEDICATION QUESTION [id number] Plan: Pravastatin 30 day/no refills ordered per standing order and sent to [facility] patient/caller to call back CareLine if symptoms get worse or if you have any further questions or concerns. The CareLine is available 05/01. Lenka Quinn RN 12/03/2017, 7:58 PM * Mine Carroll - 12/03/2017 7:17 PM CDT Verified patient identity using three identifiers: Yes Caller's relationship to patient: Self At which care system or clinic is the patient normally seen? [facility] Medication Questions/New Med Request/ Side Effects [...] filedocumented in this encounter Care Teams Auto Bench Mechanic Relationship Specialty Start Date End Date Gael Damico MD [address] [place] [address] PCP - General Family Practice 08/01/22 documented as of this encounter
--- OUTSIDE RECORDS SUMMARY | 2024-04-20 14:03 | XMS_ITS | Clinical Summary ---
Author Organization [facility] Address [address] [address] Phone Care Team Providers Care Speech Assistant Name Role Phone Gael Damico MD Primary Care Provider [phone] Camron Ohara MD Unavailable [phone] Allergies Active Allergy Reactions Criticality Noted Date Comments Excedrin Extra Strength Anaphylaxis High 11/14/2023 Medications montelukast (Singulair) 10 MG tablet Take 10 [...] Take before meals. Do not crush. Active fluticasone-salm eterol (Advair Diskus) 100-50 MCG/ACT aerosol powder, breath activated Inhale 1 Puff into the lungs every 12 hours. Rinse mouth after each use. Active dorzolamide-elizabeth lol (Cosopt) 2-0.5 % ophthalmic solution 1 Drop [...] Recorded Sex Assigned at Not on file Legal Sex Male 9:04 AM CDT Gender Identity Not on file Sexual Orientation [...] vaccine (Standing Order) (1 of 2) 1985 Pneumococcal Vaccine: 65+ yr s (Standing Order) (1 of 1 - PCV) 2000 RSV Vaccination (60+ yrs) (Abrysvo/Arexvy) (1 - 1-dose 75+ series) 2010 COVID-19 Vaccine ( - 2023-2 5 season) 2024 Influenza Vaccine Seasonal (Standing Order) (#1) 2024 HPV Vaccine (Standing Order) Aged Out No longer eligible based on patient's age to complete this topic Hepatitis B Vaccine (Standin g Order) Aged Out No longer eligible b ased on patient's age to complete this topic Insurance [id number] films MEDICARE ADVANTAGE Care Teams Speech Assistant Relationship Specialty Start Date End Date Gael Damico MD [facility] [address] [place] [phone] PCP - General Family Medicine 11/14/23 Camron Ohara MD [address] [place] [address] Podiatry 11/14/23
--- OUTSIDE RECORDS SUMMARY | 2024-04-20 14:03 | XMS_ITS | Encounter Summary ---
Author Organization [facility] Address [address], [place] [address] Care Team Providers Care Wide Area Network Administrator Name Role Phone Gael Damico MD Primary Care Provider [phone] Encounter Details Date Type Department Care Team (Late st Contact Info) Description 09/15/2017 Correspondence [facility] Urology [address] [place] [address] Waqas Rodney MD [address] [place] [address] SMG UROLOGICAL RX Social History Tobacco Use [...] on filedocumented in this encounter Care Teams Wide Area Network Administrator Relationship Specialty Start Date End Date Geal Damico MD [address] [place] [address] PCP - General Family Practice 08/01/22 documented as of this encounter
--- OUTSIDE RECORDS SUMMARY | 2024-04-20 14:03 | XMS_ITS | Encounter Summary ---
Author Organization [employer] Address [address], [place] [address] Care Team Providers Care Commissioning Editor Name Role Phone Gael Damico MD Primary Care Provider Encounter Details Date Type Department Care Team (Late st Contact Info) Description 09/16/2017 Scanned History External to Transferred Record, Provider [facility] Social History Tobacco Use Types Packs/Day [...] on filedocumented in this encounter Care Teams Commissioning Editor Relationship Specialty Start Date End Date Gael Damico MD [address] [place] [address] PCP - General Family Practice 08/01/22 documented as of this encounter
--- OUTSIDE RECORDS SUMMARY | 2024-04-20 14:03 | XMS_ITS | Encounter Summary ---
Author Organization [employer] Address [address], [place] [address] Care Team Providers Care Bicycle Racer Name Role Phone Gael Damico MD Primary Care Provider Encounter Details Date Type Department Care Team (Late st Contact Info) Description 01/07/2017 Consent for Procedure/Treatme [facility], Provider WF CONSENT FOR SURGERY OR PROCEDURE [...] on filedocumented in this encounter Care Teams Bicycle Racer Relationship Specialty Start Date End Date Gael Damico MD [address] [place] [address] PCP - General Family Practice 08/01/22 documented as of this encounter
--- OUTSIDE RECORDS SUMMARY | 2024-04-20 14:03 | XMS_ITS | Encounter Summary ---
Author Organization [employer] Address [address], [place] [address] Care Team Providers Care News Analyst Name Role Phone Gael Damico MD Primary Care Provider Encounter Details Date Type Department Care Team (Late st Contact Info) Description 10/28/2016 Scanned History [facility] [address] [place] [address] [facility], Provider LV MRI SAFETY AND HEALTH [...] on filedocumented in this encounter Care Teams News Analyst Relationship Specialty Start Date End Date Gael Damico MD [address] [place] [address] PCP - General Family Practice 08/01/22 documented as of this encounter
--- OUTSIDE RECORDS SUMMARY | 2024-04-20 14:03 | XMS_ITS | Encounter Summary ---
Author Organization [facility] Address [address], [place] [address] Care Team Providers Care Media Analytics Manager Name Role Phone Gael Damico MD Primary Care Provider Encounter Details Date Type Department Care Team (Late st Contact Info) Description 03/25/2016 Correspondence Travel and Tropical Medicine [address] [facility] [place] [address] Wandy Goff PA-C [address] [place], [place] [id number] [facility]EL [facility] PAYMENT AGREEMENT WAIVER Social History [...] filedocumented in this encounter Care Teams Media Analytics Manager Relationship Specialty Start Date End Date Gael Damico MD [address] [place] [address] PCP - General Family Practice 08/01/22 documented as of this encounter
--- OUTSIDE RECORDS SUMMARY | 2024-04-20 14:03 | XMS_ITS | Encounter Summary ---
Author Organization [facility] Address [address] [place] [address] Care Team Providers Care Cattle Producers Name Role Phone Gael Damico MD Primary Care Provider [phone] Encounter Details Date Type Department Care Team (Late st Contact Info) Description 08/08/2019 Correspondence [facility] Urology [address] [place] [address] Waqas Rodney MD [address] [place] [address] [facility] MEDICAL WRITTEN ORDER Social History Tobacco [...] on filedocumented in this encounter Care Teams Cattle Producers Relationship Specialty Start Date End Date Gael Damico MD [address] [address] PCP - General Family Practice 08/01/22 documented as of this encounter
--- OUTSIDE RECORDS SUMMARY | 2024-04-20 14:03 | XMS_ITS | Clinical Summary ---
Author Organization [facility] Address [place], [place] [address] Care Team Providers Care Tape Recorder Repairer Name Role Phone Ramses Cleary Primary Care [...] STABLE. NEG BRONCH/ENT EVAL. 200 1 12/30/2011 E-EXAMINATION, ROUTINE MEDICAL 06/20/1999 12/30/2011 DYSPNEA, RESPIRATORY ABNORMA LITY, NEC-ELLIOTT/ ? DECONDITIONING/ 11/06/1998 12/30/2011 EXAMINATION, PREOPERATIVE NOS 01/10/1997 12/30/2011 See problem list document fo r additional problems 08/10/1996 12/30/[address] ABLE. 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 Asthma 12/30/2011 Allergic rhinitis 12/30/2011 Hearing loss 12/30/2011 Encounters Date Type Department Care Team Description 03/29/2024 Telephone [facility] [address] [place] [address] Ruy Tate AuD HEARING AIDS 03/23/[address] [address] Ruy Tate AuD Hearing Aid 03/17/2024 Office Visit [facility] [address] [facility] [address] [facility] [address] [place] [address] Radha Borjas MD Telehealth ([facility] - only telephone consultation/no video) 03/09/[address] [address] Ruy Tate AuD Questions 03/09/2024 Telephone [facility] [address] [place] [address] Ruy Tate, Jacky from Last 3 Months [...] history exists Tdap Completed 02/27/2011 Care Teams Tape Recorder Repairer Relationship Specialty Start Date End Date Ramses Cleary PCP - General Family Practice 05/29/11
--- OUTSIDE RECORDS SUMMARY | 2024-04-20 14:03 | XMS_ITS | Encounter Summary ---
Author Organization [facility] Address [address], [place] [address] Care Team Providers Care Central Melt Specialist Name Role Phone Gael Damico MD Primary Care Provider [phone] Encounter Details Date Type Department Care Team (Late st Contact Info) Description 10/08/2016 Scanned History [facility] Imaging [address] [place] [address] [facility], Provider LV MRI SAFETY AND [...] on filedocumented in this encounter Care Teams Central Melt Specialist Relationship Specialty Start Date End Date Gael Damico MD [address] [place] [address] PCP - General Family Practice 08/01/22 documented as of this encounter
--- OUTSIDE RECORDS SUMMARY | 2024-04-20 14:04 | XMS_ITS | Encounter Summary ---
Author Organization [employer] Address [address] [address] Care Team Providers Care Game Technician Name Role Phone Gael Damico MD Primary Care Provider [phone] Encounter Details Date Type Department Care Team (Late st Contact Info) Description 08/04/2013 Consent for Procedure/Treatme nt Same Day Surgery [address] [place] [address] [facility], Provider [facility] INFORMED CONSENT Social History Tobacco Use Types [...] as of this encounter Progress Notes * [facility], Provider - 08/04/2013 12:00 AM CST AVER documented in this encounter Plan of Treatment Not on file documented as of this encounter Visit Diagnoses Not on filedocumented in this encounter Care Teams Game Technician Relationship Specialty Start Date End Date Gael Damico MD [address] [place] [address] PCP - General Family Practice 08/01/22 documented as of this encounter
--- OUTSIDE RECORDS SUMMARY | 2024-04-20 14:04 | XMS_ITS | Encounter Summary ---
Author Organization [employer] Address [address] [address] Care Team Providers Care Tug Boat Engineer Name Role Phone Gael Damico MD Primary Care Provider Encounter Details Date Type Department Care Team (Late st Contact Info) Description 07/22/2013 Consent for Procedure/Treatme nt [facility] Imaging [address] [place] [address] [facility], Provider LV CONSENT FOR CONTRAST [...] as of this encounter Progress Notes * [facility], Provider - 07/22/2013 12:00 AM CST VIORAL SPECIALIST documented in this encounter Plan of Treatment Not on file documented as of this encounter Visit Diagnoses Not on filedocumented in this encounter Care Teams Tug Boat Engineer Relationship Specialty Start Date End Date Gael Damico MD [address] [place] [address] PCP - General Family Practice 08/01/22 documented as of this encounter
--- OUTSIDE RECORDS SUMMARY | 2024-04-20 14:04 | XMS_ITS | Encounter Summary ---
Author Organization [employer] Address [address], [place] [address] Care Team Providers Care Crab Fisher Name Role Phone Gael Damico MD Primary Care Provider Encounter Details Date Type Department Care Team (Late st Contact Info) Description 10/29/2015 Consent for Procedure/Treatme nt LV Surg IP Svc [address] [place] [address] [facility], Provider [facility] INFORMED CONSENT Social History Tobacco [...] on filedocumented in this encounter Care Teams Crab Fisher Relationship Specialty Start Date End Date Gael Damico MD [address] [place] [address] PCP - General Family Practice 08/01/22 documented as of this encounter
--- OUTSIDE RECORDS SUMMARY | 2024-04-20 14:04 | XMS_ITS | Encounter Summary ---
Author Organization [facility] Address [address], [place] [address] Care Team Providers Care Ambulatory Services Representative Name Role Phone Gael Damico MD Primary Care Provider [phone] Encounter Details Date Type Department Care Team (Late st Contact Info) Description 06/18/2007 Consent for Procedure/Treatme nt [facility] [address] [facility] [place] [address] Mark Boyd MD [address] [place] [address] CONSENT FOR PROCEDURE Social History Tobacco Use [...] * Mark Boyd - 06/18/2007 12:00 AM GUEST RELATIONS EXECUTIVE T RELATIONS EXECUTIVE documented in this encounter Plan of Treatment Not on file documented as of this encounter Visit Diagnoses Not on filedocumented in this encounter Care Teams Ambulatory Services Representative Relationship Specialty Start Date End Date Gael Damcio MD [address] [place] [address] PCP - General Family Practice 08/01/22 documented as of this encounter
--- OUTSIDE RECORDS SUMMARY | 2024-04-20 14:04 | XMS_ITS | Encounter Summary ---
Author Organization [employer] Address [address], [place] [address] Care Team Providers Care Instructor Tap Dancing Name Role Phone Gael Damico MD Primary Care Provider Encounter Details Date Type Department Care Team (Late st Contact Info) Description 12/31/2006 Consent for Procedure/Treatme nt [facility] 401 [facility] [address] [facility] [place] [address] Mark Boyd MD [address] [place] [address] CONSENT FOR DIAGNOSTIC PROCEDURE Social History Tobacco [...] on filedocumented in this encounter Care Teams Instructor Tap Dancing Relationship Specialty Start Date End Date Gael Damico MD [address] [place] [address] PCP - General Family Practice 08/01/22 documented as of this encounter
--- OUTSIDE RECORDS SUMMARY | 2024-04-20 14:04 | XMS_ITS | Encounter Summary ---
Author Organization [facility] Address [address], [place] [address] Care Team Providers Care Record Center Specialist Name Role Phone Gael Damico MD Primary Care Provider Encounter Details Date Type Department Care Team (Late st Contact Info) Description 01/05/2012 Consent for Procedure/Treatme nt [facility] [address] [place] [address] [facility], Provider LV MRI SAFETY SCREENING CONSENT [...] as of this encounter Progress Notes * [facility], Provider - 01/05/2012 12:00 AM CDT documented in this encounter Plan of Treatment Not on file documented as of this encounter Visit Diagnoses Not on filedocumented in this encounter Care Teams Record Center Specialist Relationship Specialty Start Date End Date Gael Damico MD [address] [place] [address] PCP - General Family Practice 08/01/22 documented as of this encounter
== END 2024-04-20 14:00 | disposition home or self-care (01) ==
PROVIDERS: PCP Family Medicine; Visit Provider Family Medicine
DX: G45.9 Transient cerebral ischemic attack, unspecified (principal); I35.1 Nonrheumatic aortic (valve) insufficiency; I34.0 Nonrheumatic mitral (valve) insufficiency
CPT/HCPCS: 93306

== ENCOUNTER 2024-06-19 11:10 | Outpatient (CLI) | payer OTHER, SELFPAY | END 2024-06-19 11:11 | disposition home or self-care (01) | LOC: AMB 06-30 03:12 | PROVIDERS: PCP Family Medicine; Visit Provider Emergency Medicine | DX: K92.0 Hematemesis (principal) | CPT/HCPCS: A0425; A0427 ==

== ENCOUNTER 2024-06-19 11:44 | Emergency (ER) | payer OTHER, SELFPAY ==
[2024-06-19] VITALS (14 sets, daily range): BP systolic 130–150; BP diastolic 76–87; PULSE 93–105; RESP 16; TEMP 37.3; O2SAT 89–96; BMI 35.4
--- OUTSIDE RECORDS SUMMARY | 2024-06-19 11:46 | XMS_ITS | Clinical Summary ---
Author Organization [facility] Address [place], [place] [address] Care Team Providers Care Inspector Scales Name Role Phone Evin Ramses Primary Care Provider Unavailabl e Allergies Active Allergy Reactions Criticality Noted Date Comments Acetaminophen-Caffeine 11/26/2009 Excedrin Banana *Unknown,Other - Describe In Comment Field 08/01/2013 Throat swelling, wheezing Also avoids melons, Throat swelling, wheezing Also avoids melons, Bee Pollen *Unknown,Other - Describe In Comment Field 12/31/2020 Itchy watery eyes, wheezing Itchy watery eyes, wheezing Levofloxacin *Unknown,Other - Describe In Comment Field 02/26/2018 Hamstring tendonitis Hamstring tendonitis Mold Shortness Of Breath,Dyspnea High 04/28/2018 Watermelon Anaphylaxis High 08/28/2017 Medications montelukast (SINGULAIR) 10 mg tablet Take 1 tablet by mouth at bedtime. 0 12/25/19 10 Active cholecalciferol (VITAMIN D) 1,000 unit capsule Take 1 capsule by mouth once daily. 0 12/29/19 10 Active acetaminophen (TYLENOL EXTRA STRENGTH) 500 mg tablet Take 2 tablets by mouth 2 times daily. Max acetaminophen dose: 4000mg in 24 hrs. 0 09/19/19 11 Active fluticasone (FLOVENT DISKUS) 100 mcg/Actuation inhaler Inhale 1 Puff by mouth 2 times daily. 1 Inhaler 1 05/29/20 11 Active omeprazole (PRILOSEC) 20 mg capsule TAKE 1 CAPSULE BY MOUTH TWICE DAILY 180 capsule 1 06/30/19 12 Active allopurinol (ZYLOPRIM) 100 mg tablet TAKE 1 TABLET BY MOUTH EVERY DAY 90 tablet 0 02/23/20 12 Active vit A/vit C/vit E/zinc/copper (ICAPS AREDS ORAL) Take by mouth. Activ e albuterol HFA (PRO-AIR; VENTOLIN; PROVENTIL) 90 mcg/actuation inhaler INHALE 2 PUFFS BY MOUTH EVERY 4 TO 6 HOURS NEEDED FOR SHORTNESS OF BREATH OR WHEEZING 06/13/20 22 Active dorzolamide-elizabeth loL (COSOPT) 2-0.5 % ophthalmic solution Place 1 Drop into both eyes two times daily. 10/15/19 23 Active Advair Diskus 250-50 mcg/dose diskus inhaler Inhale 1 Puff by mouth two times daily. 09/30/19 23 Active albuterol-ipratr opium (DUONEB) (2.5-0.5 mg) in 3 mL NEBULIZATION solution USE 3 ML VIA NEBULIZER EVERY 6 HOURS NEEDED FOR WHEEZING 06/20/19 23 Active pravastatin (PRAVACHOL) 40 mg tablet Take 40 mg by mouth once daily. 09/06/19 23 Active Active Problems Problem Noted Date Diagnosed [...] Encounters Date Type Department Care Team Description 04/20/2024 2:00 PM VALIDATION LEADER Ancillary Procedure 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 on file Not on file Obstetrics History Last Filed Vital Signs Vital Sign Reading Time Taken Comments Blood Pressure 112/76 10/27/2022 1:20 PM CDT Pulse 72 10/27/2022 1:20 PM CDT Temperature 36.6 C (97.8 F) 01/07/2012 8:29 AM CDT Respiratory Rate 16 [...] age 65+ 2000 Pneumococcal series for age 50+ (2 of 2 - PCV) 09/21/2008 09/22/2007, 10/21/1995 RSV vaccine for adults or (1 - 1-dose 75+ series) 2010 Tetanus booster 02/27/2021 02/27/2011, 07/03/1993 COVID-19 vaccine series ( season) 2024 07/10/2022, 12/24/2021, 03/22/2021, Additional history exists Influenza for age 65+ 02/14/2024 02/28/2011 , 03/21/2010, 03/21/2008, Additional history exists Tdap Completed 02/27/2011 Procedures Procedure Name Priority Date/Time Associated Diagnosis Comments ECHO TTE COMPLETE WO CONTRAST Routine 04/20/2024 2:44 PM VALIDATION LEADER Transient cerebral ischemic attack, unspecified from Last 3 Months Results * ECHO TTE COMPLETE WO CONTRAST (04/20/2024 2:44 PM VALIDATION LEADER) AORTIC VALVE MEAN PG 6 mmHg EJECTION FRACTION 52 % PEAK TR VELOCITY 2.5 m/s LVEDD 3.7 cm Anatomical Region Laterality Modality Ultrasound 04/20/2024 2:26 PM VALIDATION LEADER Narrative 04/20/2024 3:03 PM VALIDATION LEADER ECHOCARDIOGRAM ZAID RUTLEDGE : 1935 89 years Study Date: 04/20/2024 2:26:21 PM Gender: M BP: 118/76 mmHg Height: 175.00 cm BSA: 2.32 m Weight: 119.00 kg Tech: CHRISTOPHER Referring MD: CARLOS KIDD Site: [facility] Reading Location: Mobile-OP Patient Location: Outpatient. Procedure: 2D, Color Doppler and Spectral Doppler. Indication for study: TIA Cardiac Rhythm: Irregular.Study quality: Good. Final Impressions: 1. Normal left ventricular size, mildly increased wall thickness, low normal global systolic function, calculated EF of 52 %. 2. Right ventricular cavity size is normal, global systolic RV function is normal. 3. Normal left atrium size. 4. The aortic valve is sclerotic, no stenosis and trivial regurgitation. 5. The mitral valve is sclerotic, trace mitral regurgitation. 6. Tricuspid valve is normal. 7. 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 8. No pericardial effusion. Chamber Sizes and Function Normal left ventricular size, mildly increased wall thickness, low normal global systolic function, calculated EF of 52 %. Left atrial size is normal. Right ventricular cavity size is normal, global systolic RV function is normal. RV wall thickness is normal. The right atrium is normal. Right atrial volume index is 10 ml/m . Right atrial area is 13 cm . The pulmonary artery is of normal size and origin. The sinus of Valsalva is dilated. The ascending aorta is normal sized. Valves, RV Pressures and Diastolic Function The aortic valve is sclerotic, no stenosis and trivial regurgitation. The mitral valve is sclerotic, trace mitral regurgitation. Indeterminate pattern of LV diastolic filling. The tricuspid valve is normal in structure. Tricuspid regurgitation is mild regurgitation. The tricuspid regurgitant velocity is 2.4 m/s, the estimated right ventricular systolic pressure is 24 mmHg plus right atrial pressure. The pulmonic valve is normal. Trace pulmonary regurgitation. Masses, Effusion, Shunts There is no pericardial effusion. The inferior vena cava is normal sized, respiratory size variation greater than 50%. Interatrial septum is not well visualized. MEASUREMENTS AND CALCULATIONS 2-D Measurements and LV Function: LVID (d) 3.7 cm Planimetered EF 52 % LVID (s) 2.4 cm LV FS% (2D) 34 % IVS (d) 1.3 cm LVOT diameter 2.4 cm LVPW (d) 1.3 cm HR 65 bpm Ao Sinus 4.2 cm LA Vol index 24 ml/m2 Asc Ao 3.7 cm RA Vol index 10 ml/m2 LA 3.6 cm RA area 13 cm RV Max 4C (d) 3.5 cm Diastology: Mitral Tissue Doppler Pulmonary veins E Peak 0.8 m/s e', Septum 0.04 m/s Pulm s 51.4 cm/s A Peak 1.2 m/s e', Lateral 0.06 m/s Pulm d 40.7 cm/s E/A 0.6 E/e' Average 14.67 Pulm s/d ratio 1.26 DT 292 msec Aortic Valve: Vmax 1.6 m/s AKASH (V) 2.79 cm AI P 1/2 696 msec VTI 0.40 m AKASH (I) 2.50 cm LVOT V max 1.0 m/s Max PG 10 mmHg LVOT VTI 0.22 m Mean PG 6 mmHg SV 101 ml Dim Index 0.55 SV index 44 ml/m CO 6.6 l/min CI 2.8 l/min/m Mitral Valve: MVA 2.6 cm MV P 1/2 85 msec Tricuspid Valve and estimated PA pressures: TR Vmax 2.4 m/s TAPSE 1.7 cm TR maxG 24 mmHg Pulmonic Valve: PV Vmax 0.9 m/s PIEDV 0.8 m/s . This study was interpreted by an [facility] accredited facility. CC: [facility] (med [facility]) [facility]. Final Procedure Note Magui Phillips, [facility] - 04/20/2024 ECHOCARDIOGRAM ZAID RUTLEDGE : 1935 89 years Study Date: 04/20/2024 2:26:21 PM Gender: M BP: 118/76 mmHg Height: 175.00 cm BSA: 2.32 m Weight: 119.00 kg Tech: CHRISTOPHER Referring MD: CARLOS KIDD Site: [facility] Reading Location: Mobile-OP Patient Location: Outpatient. Procedure: 2D, Color Doppler and Spectral Doppler. Indication for study: TIA Cardiac Rhythm: Irregular.Study quality: Good. Final Impressions: 1. Normal left ventricular size, mildly increased wall thickness, lownormal global systolic function, calculated EF of 52 %. 2. Right ventricular cavity size is normal, global systolic RV functionis normal. 3. Normal left atrium size. 4. The aortic valve is sclerotic, no stenosis and trivialregurgitation. 5. The mitral valve is sclerotic, trace mitral regurgitation. 6. Tricuspid valve is normal. 7. 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 8. No pericardial effusion. Chamber Sizes and Function Normal left ventricular size, mildly increased wall thickness, low normalglobal systolic function, calculated EF of 52 %. Left atrial size isnormal. Right ventricular cavity size is normal, global systolic RVfunction is normal. RV wall thickness is normal. The right atrium isnormal. Right atrial volume index is 10 ml/m . Right atrial area is 13cm . The pulmonary artery is of normal size and origin. The sinus ofValsalva is dilated. The ascending aorta is normal sized. Valves, RV Pressures and Diastolic Function The aortic valve is sclerotic, no stenosis and trivial regurgitation. Themitral valve is sclerotic, trace mitral regurgitation. Indeterminatepattern of LV diastolic filling. The tricuspid valve is normal instructure. Tricuspid regurgitation is mild regurgitation. The tricuspidregurgitant velocity is 2.4 m/s, the estimated right ventricular systolicpressure is 24 mmHg plus right atrial pressure. The pulmonic valve isnormal. Trace pulmonary regurgitation. Masses, Effusion, Shunts There is no pericardial effusion. The inferior vena cava is normal sized,respiratory size variation greater than 50%. Interatrial septum is notwell visualized. MEASUREMENTS AND CALCULATIONS 2-D Measurements and LV Function: LVID (d) 3.7 cm Planimetered EF 52 % LVID (s) 2.4 cm LV FS% (2D) 34 % IVS (d) 1.3 cm LVOT diameter 2.4 cm LVPW (d) 1.3 cm HR 65 bpm Ao Sinus 4.2 cm LA Vol index 24 ml/m2 Asc Ao 3.7 cm RA Vol index 10 ml/m2 LA 3.6 cm RA area 13 cm RV Max 4C (d) 3.5 cm Diastology: Mitral Tissue Doppler Pulmonary veins E Peak 0.8 m/s e', Septum 0.04 m/s Pulm s 51.4 cm/s A Peak 1.2 m/s e', Lateral 0.06 m/s Pulm d 40.7 cm/s E/A 0.6 E/e' Average 14.67 Pulm s/d ratio 1.26 DT 292 msec Aortic Valve: Vmax 1.6 m/s AKASH (V) 2.79 cm AI P 1/2 696 msec VTI 0.40 m AKASH (I) 2.50 cm LVOT V max 1.0 m/s Max PG 10 mmHg LVOT VTI 0.22 m Mean PG 6 mmHg SV 101 ml Dim Index 0.55 SV index 44 ml/m CO 6.6 l/min CI 2.8 l/min/m Mitral Valve: MVA 2.6 cm MV P 1/2 85 msec Tricuspid Valve and estimated PA pressures: TR Vmax 2.4 m/s TAPSE 1.7 cm TR maxG 24 mmHg Pulmonic Valve: PV Vmax 0.9 m/s PIEDV 0.8 m/s . This study was interpreted by an [facility] accredited facility. CC: [facility] (med records) [facility]. Final Carlos Kidd MD ECHO ORD Final Re sult from Last 3 Months Insurance MEDICARE PART B HB ONLY [place] ONLY [place] [id number] [address] [place] [id number] [address] [id number] Care Teams Inspector Scales Relationship Specialty Start Date End Date Ramses Cleary PCP - General Family Practice 05/29/11
--- OUTSIDE RECORDS SUMMARY | 2024-06-19 11:46 | XMS_ITS | Continuity of Care Document ---
Author Name [facility] Address Unknown Organization Unknown Address Unknown Alerts, Allergies and Adverse Reactions FILTER APPLIED:All Known Active Allergies Substance Reaction Onset Status (EXCEDRIN EXTRA STRENGTH) ANAPHYLAXIS (Severe) 2023 Active Procedures FILTER APPLIED:Only known Procedures with Onset Date within the last 5 years Procedure Date Procedure Provider Additional Inform ation Status URINE CULTURE/COLONY COUNT (34712) Completed URINALYSIS AUTO W/SCOPE (92626) Completed Encounters FILTER APPLIED:Only known Encounters with Admission Date within the last 5 years Encounter Location Admission Discharge Billing Code [facility] Outpatient Gael Damico Emergency [facility] [place] [facility]
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
--- OUTSIDE RECORDS SUMMARY | 2024-06-19 11:46 | XMS_ITS | Encounter Summary ---
Author Organization [facility] Address [address] [place] [address] Care Team Providers Care Senior Storage Engineer Name Role Phone Gael Damico MD Primary Care Provider Encounter Details Date Type Department Care Team (Late st Contact Info) Description 08/08/2019 Correspondence [facility] Urology [address] [place] [address] Waqas Rodney MD [address] [place] [address] [facility] MEDICAL WRITTEN ORDER Social History Tobacco [...] filedocumented in this encounter Care Teams Senior Storage Engineer Relationship Specialty Start Date End Date Gael Damico MD [address] [address] PCP - General Family Practice 08/01/22 documented as of this encounter
--- OUTSIDE RECORDS SUMMARY | 2024-06-19 11:46 | XMS_ITS | Clinical Summary ---
Author Organization [facility] Address [address] [address] Phone Care Team Providers Care Drop Pit Worker Name Role Phone Gael Damico MD Primary Care Provider Camron Ohara MD Unavailable [phone] Allergies Active Allergy Reactions Criticality Noted Date [...] 74 11/14/2023 9:13 AM CDT Temperature 36.7 C (98.1 F) 11/14/2023 9:13 AM CDT Respiratory Rate 16 11/14/2023 9:13 AM CDT [...] patient's age to complete this topic Insurance [employer] Care Teams Drop Pit Worker Relationship Specialty Start Date End Date Gael Damico MD [facility] [address] [place] [address] PCP - General Family Medicine 11/14/23 Camron Ohara MD [address] [place] [address] Podiatry 11/14/23
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
--- OUTSIDE RECORDS SUMMARY | 2024-06-19 11:47 | XMS_ITS | Encounter Summary ---
Author Organization [employer] Address [address], [place] [address] Care Team Providers Care Greaser And Oiler Name Role Phone Gael Damico MD Primary Care Provider Encounter Details Date Type Department Care Team (Late st Contact Info) Description 09/16/2017 Scanned History External to Transferred Record, Provider [facility] Social History Tobacco Use Types Packs/Day Years [...] on filedocumented in this encounter Care Teams Greaser And Oiler Relationship Specialty Start Date End Date Gael Damico MD [address] [place] [address] PCP - General Family Practice 08/01/22 documented as of this encounter
--- OUTSIDE RECORDS SUMMARY | 2024-06-19 11:47 | XMS_ITS | Encounter Summary ---
Author Organization [employer] Address [address] [address] Care Team Providers Care Document Advisor Name Role Phone Gael Damico MD Primary Care Provider Encounter Details Date Type Department Care Team (Late st Contact Info) Description 01/05/2012 Consent for Procedure/Treatme nt [facility] Imaging [address] [place] [address] [facility], Provider LV MRI SAFETY SCREENING [...] * [facility], Provider - 01/05/2012 12:00 AM CDT documented in this encounter Plan of Treatment Not on file documented as of this encounter Visit Diagnoses Not on filedocumented in this encounter Care Teams Document Advisor Relationship Specialty Start Date End Date Gael Damico MD [address] [place] [address] PCP - General Family Practice 08/01/22 documented as of this encounter
--- OUTSIDE RECORDS SUMMARY | 2024-06-19 11:47 | XMS_ITS | Encounter Summary ---
Author Organization [facility] Address [address], [place] [address] Care Team Providers Care Truck Cleaner Name Role Phone Gael Damico MD Primary Care Provider Encounter Details Date Type Department Care Team (Late st Contact Info) Description 07/23/2018 Correspondence [facility] Urology [address] [place] [address] Waqas Rodney MD [address] [place] [address] SMG ORDER Social History Tobacco Use Types [...] on filedocumented in this encounter Care Teams Truck Cleaner Relationship Specialty Start Date End Date Gael Damico MD [address] [place] [address] PCP - General Family Practice 08/01/22 documented as of this encounter
--- OUTSIDE RECORDS SUMMARY | 2024-06-19 11:47 | XMS_ITS | Encounter Summary ---
Author Organization [employer] Address [address], [place] [address] Care Team Providers Care Hair Baler Name Role Phone Gael Damico MD Primary Care Provider Encounter Details Date Type Department Care Team (Late st Contact Info) Description 08/04/2013 Consent for Procedure/Treatme nt Same Day Surgery [address] [place] [address] [facility], Provider [facility] INFORMED CONSENT Social History Tobacco Use [...] * [facility], Provider - 08/04/2013 12:00 AM CST D LEADER documented in this encounter Plan of Treatment Not on file documented as of this encounter Visit Diagnoses Not on filedocumented in this encounter Care Teams Hair Baler Relationship Specialty Start Date End Date Gael Damico MD [address] [place] [address] PCP - General Family Practice 08/01/22 documented as of this encounter
--- OUTSIDE RECORDS SUMMARY | 2024-06-19 11:47 | XMS_ITS | Encounter Summary ---
Author Organization [employer] Address [address] [place] [address] Care Team Providers Care Coding Specialist Home Health Name Role Phone Gael Damico MD Primary Care Provider [phone] Reason for Visit * Reason Comments Refill Encounter Details Date Type Department Care Team (Late st Contact Info) Description 12/03/2017 Nurse Triage Careline [address] [place], [place] [id number] Unassigned, Provider [address] [place] [address] Refill Social History Tobacco Use Types Packs/Day [...] Quinn RN - 12/03/2017 7:29 PM CDT Patient/childcare director request: Input needed Medication Specific Request: See [...] per unit policy Protocols used: MEDICATION QUESTION [id number] Plan: Pravastatin 30 day/no refills ordered per standing order and sent to [facility] patient/caller to call back CareLine if symptoms get worse or if you have any further questions or concerns. The CareLine is available 05/01. Lenka Quinn RN 12/03/2017, 7:58 PM * Mine Carroll - 12/03/2017 7:17 PM CDT Verified patient identity using three identifiers: Yes Caller's relationship to patient: Self At which care system or clinic is the patient normally seen? [facility] Medication Questions/New Med Request/ Side Effects [...] on filedocumented in this encounter Care Teams Coding Specialist Home Health Relationship Specialty Start Date End Date Gael Damico MD [address] [place] [address] PCP - General Family Practice 08/01/22 documented as of this encounter
--- OUTSIDE RECORDS SUMMARY | 2024-06-19 11:47 | XMS_ITS | Encounter Summary ---
Author Organization [facility] Address [address], [place] [address] Care Team Providers Care Cloth Winder Name Role Phone Gael Damico MD Primary Care Provider [phone] Encounter Details Date Type Department Care Team (Late st Contact Info) Description 09/15/2017 Correspondence [facility] Urology [address] [place] [address] Waqas Rodney MD [address] [place] [address] [facility]ICAL [facility] Social History Tobacco Use [...] filedocumented in this encounter Care Teams Cloth Winder Relationship Specialty Start Date End Date Gael Damico MD [address] [place] [address] PCP - General Family Practice 08/01/22 documented as of this encounter
--- OUTSIDE RECORDS SUMMARY | 2024-06-19 11:47 | XMS_ITS | Encounter Summary ---
Author Organization [employer] Address [address], [place] [address] Care Team Providers Care Manager Aerospace Name Role Phone Gael Damico MD Primary Care Provider [phone] Encounter Details Date Type Department Care Team (Late st Contact Info) Description 12/31/2006 Consent for Procedure/Treatme nt [facility] [address] [place] [address] Mark Boyd MD [address] [place] [address] CONSENT FOR DIAGNOSTIC PROCEDURE Social History Tobacco [...] filedocumented in this encounter Care Teams Manager Aerospace Relationship Specialty Start Date End Date Gael Damico MD [address] [place] [address] PCP - General Family Practice 08/01/22 documented as of this encounter
--- OUTSIDE RECORDS SUMMARY | 2024-06-19 11:47 | XMS_ITS | Encounter Summary ---
Author Organization [employer] Address [address], [place] [address] Care Team Providers Care Ticket Attendant Name Role Phone Gael Damico MD Primary Care Provider Encounter Details Date Type Department Care Team (Late st Contact Info) Description 07/22/2013 Consent for Procedure/Treatme nt [facility] [address] [place] [address] [facility], Provider LV CONSENT FOR CONTRAST Social [...] as of this encounter Progress Notes * [facility], Provider - 07/22/2013 12:00 AM CST GREE TRACER documented in this encounter Plan of Treatment Not on file documented as of this encounter Visit Diagnoses Not on filedocumented in this encounter Care Teams Ticket Attendant Relationship Specialty Start Date End Date Gael Damico MD [address] [place] [address] PCP - General Family Practice 08/01/22 documented as of this encounter
--- OUTSIDE RECORDS SUMMARY | 2024-06-19 11:47 | XMS_ITS | Encounter Summary ---
Author Organization [facility] Address [address], [place] [address] Care Team Providers Care Metal Hanging Helper Name Role Phone Gael Damico MD Primary Care Provider [phone] Encounter Details Date Type Department Care Team (Late st Contact Info) Description 10/28/2016 Consent for Procedure/Treatme [facility] Same Day Surgery [address] [place] [address] [facility], Provider [facility] INFORMED CONSENT Social History Tobacco [...] on filedocumented in this encounter Care Teams Metal Hanging Helper Relationship Specialty Start Date End Date Gael Damico MD [address] [place] [address] PCP - General Family Practice 08/01/22 documented as of this encounter
--- OUTSIDE RECORDS SUMMARY | 2024-06-19 11:47 | XMS_ITS | Encounter Summary ---
Author Organization [facility] Address [address] [address] Care Team Providers Care Associate Automation Engineer Name Role Phone Gael Damico MD Primary Care Provider Encounter Details Date Type Department Care Team (Late st Contact Info) Description 06/18/2007 Consent for Procedure/Treatme nt [facility] [address] [facility] Surgery [address] [facility] [place] [address] Mark Boyd MD [address] [place] [address] CONSENT FOR PROCEDURE Social History Tobacco Use [...] * Mark Boyd - 06/18/2007 12:00 AM CAD PROGRAMMER PROGRAMMER documented in this encounter Plan of Treatment Not on file documented as of this encounter Visit Diagnoses Not on filedocumented in this encounter Care Teams Associate Automation Engineer Relationship Specialty Start Date End Date Gael Damico MD [address] [place] [address] PCP - General Family Practice 08/01/22 documented as of this encounter
--- OUTSIDE RECORDS SUMMARY | 2024-06-19 11:47 | XMS_ITS | Encounter Summary ---
Author Organization [employer] Address [address] [address] Care Team Providers Care Motor And Generator Assembler Name Role Phone Gael Damico MD Primary Care Provider Encounter Details Date Type Department Care Team (Late st Contact Info) Description 01/07/2017 Consent for Procedure/Treatme [facility], Provider [facility] CONSENT FOR SURGERY OR [...] on filedocumented in this encounter Care Teams Motor And Generator Assembler Relationship Specialty Start Date End Date Gael Damico MD [address] [place] [address] PCP - General Family Practice 08/01/22 documented as of this encounter
--- OUTSIDE RECORDS SUMMARY | 2024-06-19 11:47 | XMS_ITS | Encounter Summary ---
Author Organization [employer] Address [address], [place] [address] Care Team Providers Care Statistical Developer Name Role Phone Gael Damico MD Primary Care Provider Encounter Details Date Type Department Care Team (Late st Contact Info) Description 10/29/2015 Consent for Procedure/Treatme nt [facility] [address] [place] [address] [facility], Provider [facility] INFORMED CONSENT Social History Tobacco [...] on filedocumented in this encounter Care Teams Statistical Developer Relationship Specialty Start Date End Date Gael Damico MD [address] [place] [address] PCP - General Family Practice 08/01/22 documented as of this encounter
--- OUTSIDE RECORDS SUMMARY | 2024-06-19 11:47 | XMS_ITS | Encounter Summary ---
Author Organization [employer] Address [address] [address] Care Team Providers Care Revenue Cycle Specialist Name Role Phone Gael Damico MD Primary Care Provider Encounter Details Date Type Department Care Team (Late st Contact Info) Description 10/08/2016 Scanned History [facility] Imaging [address] [place] [address] [facility], Provider LV MRI SAFETY AND [...] on filedocumented in this encounter Care Teams Revenue Cycle Specialist Relationship Specialty Start Date End Date Gael Damico MD [address] [place] [address] PCP - General Family Practice 08/01/22 documented as of this encounter
--- OUTSIDE RECORDS SUMMARY | 2024-06-19 11:47 | XMS_ITS | Encounter Summary ---
Author Organization [employer] Address [address] [address] Care Team Providers Care Capital Campaign Fundraiser Name Role Phone Gael Damico MD Primary Care Provider Encounter Details Date Type Department Care Team (Late st Contact Info) Description 10/28/2016 Scanned History [facility] Imaging [address] [place] [address] [facility], Provider LV MRI SAFETY AND HEALTH QUESTIONNAIRE [...] on filedocumented in this encounter Care Teams Capital Campaign Fundraiser Relationship Specialty Start Date End Date Gael Damico MD [address] [place] [address] PCP - General Family Practice 08/01/22 documented as of this encounter
--- OUTSIDE RECORDS SUMMARY | 2024-06-19 11:47 | XMS_ITS | Encounter Summary ---
Author Organization [facility] Address [address], [place] [address] Care Team Providers Care Cremator Name Role Phone Gael Damico MD Primary Care Provider Encounter Details Date Type Department Care Team (Late st Contact Info) Description 03/25/2016 Correspondence [facility] [address] [facility] [place] [address] Wandy Goff PA-C [address] [place], [place] [id number] [facility] PAYMENT AGREEMENT WAIVER Social History [...] on filedocumented in this encounter Care Teams Cremator Relationship Specialty Start Date End Date Gael Damico MD [address] [place] [address] PCP - General Family Practice 08/01/22 documented as of this encounter
--- NOTE | 2024-06-19 12:35 | ED.GENADULT ---
HPI - General Adult General Date Seen: 06/19/24 Chief complaint: GI Bleed Stated complaint: GI bleed Time Seen by Provider: 06/19/24 11:59 History of Present Illness HPI narrative: A 89-year-old gentleman with a past medical history of TIAs (on Plavix), atrial fibrillation, asthma, vertebral basilar artery syndrome, hypertension, macular degeneration, prostate cancer, GERD. He also has chronic hemoptysis (without a clear etiology after workup through ENT here in [place] and specialist through [facility]) He is brought to the ER today by EMS from home. History from EMS is: He began having nausea and vomiting last night around 9:00 p.m.. He has thrown up 3 or 4 times at home. It tasted like blood and was somewhat dark blackish colored. 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 He has otherwise been in his usual state of health lately. He does have chronic hemoptysis with some bloody sputum happens almost every morning (for the past couple of years). No recent new trouble breathing or cough. He started to be so yesterday evening around 9:00 p.m. with a lot of nausea and some crampy abdominal. He had several episodes of vomiting. Have he says probably fiber 6 episodes altogether overnight. Emesis was liquidy and brown, the same color brown his stool. He has also had multiple episodes of liquidy brown diarrhea. No black or bloody stool, per patient. He got very little sleep last night because he would wake up every couple of hours due to nausea and diarrhea. This morning he had an episode of vomiting after his son try to get him to drink some orange juice. During the vomiting he apparently blacked out and lost consciousness for a brief period. He has a history of TIA several months ago which manifested as a brief episode of dysarthria. He had no focal neurologic deficit like that this morning. He just blacked out. He does not recall any chest pain or palpitations with the episode of loss of consciousness. He feels better now except for a still nauseous. He also feels like he might be having any dab more diarrhea soon. Related Data Home Medications ?Medication ?Instructions ?Recorded ?Confirmed acetaminophen 500 mg tablet 1,000 mg PO BID PRN 01/06/23 01/05/25 (Tylenol Extra Strength) montelukast 10 mg tablet 10 mg PO QDAY 06/20/22 06/19/24 dorzolamide 22.3 mg-timolol 6.8 1 drp ophthalmic (eye) BID 07/22/22 06/19/24 mg/mL eye drops vit C 250 mg-vit E 200 unit-zinc 1 tab PO BID 12/26/22 06/19/24 12.5 mg-copper 1 [id number] tablet (ICaps AREDS2 (copper citrate)) guaifenesin [Mucinex] 1 tab PO QDAY 02/25/24 06/19/24 aspirin 81 mg tablet,delayed 81 mg PO DAILY 03/22/24 06/19/24 release furosemide 20 mg tablet 20 mg PO QAM 06/09/24 06/19/24 Previous Rx's ?Medication ?Instructions ?Recorded albuterol sulfate 90 mcg/actuation 2 puff inhalation Q4-6H PRN 06/13/22 aerosol inhaler shortness of breath or wheezing #8.5 grams ipratropium 0.5 mg-albuterol 3 mg 3 ml inhalation Q6H PRN wheezing 06/20/22 (2.5 mg base)/3 mL nebulization #90 mL soln nebulizers #1 ea 06/27/22 atorvastatin 40 mg tablet 40 mg PO QHS #90 tabs 03/22/24 allopurinol 100 mg tablet 100 mg PO QDAY #90 tabs 03/28/24 omeprazole 20 mg capsule,delayed 20 mg PO BID #180 caps 03/28/24 release pregabalin 100 mg capsule 100 mg PO BID #60 caps 06/09/24 cephalexin 500 mg capsule 500 mg PO BID #14 caps 06/19/24 Allergies Allergy/AdvReac Type Severity Reaction Status Date / Time acetaminophen (From Excedrin Allergy Severe Anaphylaxis Verified 06/19/24 12:09 Extra Strength) aspirin (From Excedrin Extra Allergy Severe Anaphylaxis Verified 06/19/24 12:09 Strength) banana Allergy Severe Anaphylaxis Verified 06/19/24 12:09 walnut Allergy Severe Anaphylaxis Verified 06/19/24 12:09 watermelon Allergy Severe Anaphylaxis Verified 06/19/24 12:09 levofloxacin (From Levaquin) Allergy Unknown Hamstring Verified 06/19/24 12:09 Tendonitis [facility] Medical History (Updated 06/19/24 @ 18:11 by Michael Louis MD) TIA (transient ischemic attack) ?G45.9 - Transient cerebral ischemic attack, unspecified (ICD-10) Mixed hyperlipidemia ?E78.2 - Mixed hyperlipidemia (ICD-10) History of gout ?Z87.39 - Personal history of other diseases of the musculoskeletal system and connective tissue (ICD-10) Primary hypertension ?I10 - Essential (primary) hypertension (ICD-10) Primary open angle glaucoma (POAG) ?H40.1190 - Primary open-angle glaucoma, unspecified eye, stage unspecified (ICD-10) Age-related macular degeneration ?H35.30 - Unspecified macular degeneration (ICD-10) History of prostate cancer ?Z85.46 - Personal history of malignant neoplasm of prostate (ICD-10) Chronic cough ?R05.3 - Chronic cough (ICD-10) History of TIA (transient ischemic attack) (11/2021) ?Z86.73 - Personal history of transient ischemic attack (TIA), and cerebral infarction without residual deficits (ICD-10) 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 - Vertebro-basilar artery syndrome (ICD-10) Hemoptysis (10/2021) ?R04.2 - Hemoptysis (ICD-10) GERD (gastroesophageal reflux disease) ?K21.9 - Gastro-esophageal reflux disease without esophagitis (ICD-10) Surgical History History of repair of right rotator cuff ?Z98.890 - Other specified postprocedural states (ICD-10) History of tonsillectomy ?Z90.89 - Acquired absence of other organs (ICD-10) History of back surgery ?Z98.890 - Other specified postprocedural states (ICD-10) History of phacoemulsification of cataract of both eyes with intraocular lens implantation ?Z98.41 - Cataract extraction status, right eye (ICD-10) ?Z98.42 - Cataract extraction status, left eye (ICD-10) ?Z96.1 - Presence of intraocular lens (ICD-10) History of esophagogastroduodenoscopy (EGD) (01/21/22) ?Z98.890 - Other specified postprocedural states (ICD-10) History of basal cell carcinoma (BCC) (2005) ?Z85.828 - Personal history of other malignant neoplasm of skin (ICD-10) History of transurethral resection of prostate ?Z98.890 - Other specified postprocedural states (ICD-10) ?Z90.79 - Acquired absence of other genital organ(s) (ICD-10) History of bronchoscopy (01/28/22) ?Z98.890 - Other specified postprocedural states (ICD-10) History of total left knee replacement ?Z96.652 - Presence of left artificial knee joint (ICD-10) Family History Father Colon cancer Prostate cancer Coronary artery disease Social History Narrative: , 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, 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 What is your current living situation?: I presently have a place to live Problems where you live: no known problems In the past 12 months, utilities in danger of being shut off: no In past 12 months, lack of transportation kept you from medical appts, meetings, work, or getting things needed for daily living: no In the past 12 mos, have been you worried that your food would run out before you had money to buy more?: never true In the past 12 mos, the food you bought just didn't last and you didn't have money to buy more?: never true Smoking Status: Former smoker Do you use any of these nicotine containing products: None Second hand tobacco smoke exposure: No How often do you have a drink containing alcohol: 2-3 times a week AUDIT-C Alcohol total score: 3 Non-prescribed substance use: denies use How often does anyone, including family, friends and others, physically hurt you: never How often does anyone, including family, friends and others, insult or talk down to you: never How often does anyone, including family, friends and others, threaten you with harm: never How often does anyone, including family, friends and others, scream or curse at you: rarely Health Related Social Needs: Other personal risk factors, not elsewhere classified (Z91.89) Exam Narrative: Exam Narrative: Constitutional: Appears well-developed and well-nourished. Alert. Conversant. Non toxic. HENT: Head: Atraumatic. Nose: Nose normal. Mouth/Throat: Oral mucosa is clear but dry, not desiccated a crack. no trismus. Pharynx normal. Tonsils symmetric. No tonsillar enlargement, erythema, or exudate. Eyes: Conjunctivae normal. EOM normal. Pupils equal, round, and reactive to light. No scleral icterus. Neck: Normal range of motion. Neck supple. No tracheal deviation present. Cardiovascular: Normal rate, regular rhythm. No gallop. No friction rub. No murmur heard. Symmetric radial artery pulses Pulmonary/Chest: Effort normal. Breathing easily and speaking full sentences with nasal cannula. No stridor. No respiratory distress. No wheezes. No rales. No rhonchi . No tenderness. Abdominal: Soft. Bowel sounds normal. Moderately distended and tympanic but bowel sounds are diminished. No mass. Right lower quadrant and left lower quadrant tenderness. No rebound. No guarding. Musculoskeletal: RUE: Normal range of motion. No tenderness. No deformity LUE: Normal range of motion. No tenderness. No deformity RLE: Normal range of motion. No edema. No tenderness. No deformity LLE: Normal range of motion. No edema. No tenderness. No deformity Neurological: Alert and oriented to person, place, and time. Normal strength. CN II-VII intact. No sensory deficit. GCS eye subscore is 4. GCS verbal subscore is 5. GCS motor subscore is 6. Normal coordination Skin: Skin is warm and dry. No rash noted. No pallor. Normal capillary refill. Psychiatric: Normal mood. Normal affect. Const: Vital Signs, click to edit/add: Vital Signs - 24 hr 06/19/24 12:01 06/19/24 12:56 06/19/24 13:02 Temperature 99.1 F Pulse Rate 93 97 Pulse Rate [Pulse Oximeter] 100 Respiratory Rate 16 Blood Pressure 150/87 H Blood Pressure [Ri t Upper Arm] 137/76 Pulse Oximetry 95 96 95 Oxygen Delivery Me thod Nasal Cannula 06/19/24 13:03 06/19/24 13:15 06/19/24 13:30 Temperature Pulse Rate 93 95 95 Pulse Rate [Pulse Oximeter] Respiratory Rate Blood Pressure Blood Pressure [Ri t Upper Arm] Pulse Oximetry 95 95 94 Oxygen Delivery Me thod 06/19/24 13:32 06/19/24 13:45 06/19/24 14:04 Temperature Pulse Rate 95 97 Pulse Rate [Pulse Oximeter] Respiratory Rate Blood Pressure 130/80 130/78 Blood Pressure [Ri ght Upper Arm] Pulse Oximetry 94 95 Oxygen Delivery Me thod 06/19/24 14:47 06/19/24 15:00 06/19/24 15:05 Temperature Pulse Rate 101 H 103 H 102 H Pulse Rate [Pulse Oximeter] Respiratory Rate Blood Pressure Blood Pressure [Ri ght Upper Arm] Pulse Oximetry 91 93 89 Oxygen Delivery Me thod 06/19/24 15:15 06/19/24 15:30 Temperature Pulse Rate 103 H 105 H Pulse Rate [Pulse Oximeter] Respiratory Rate Blood Pressure Blood Pressure [Ri ght Upper Arm] Pulse Oximetry 91 93 Oxygen Delivery Me thod Course Course ED Course: Recheck-patient says he is feeling better. However, Had little bit more nausea and 1 small volume emesis. Reevaluation(s) Reevaluation #1: Recheck-patient says he is feeling better. Son at the bedside. I had a conversation with the patient, his son, and also his daughter by speaker phone. This discussed workup so far. Cause for nausea and vomiting and diarrhea is not clear. Could be viral GI illness. Also consider possible GI bleed. He does have heme-positive stool and with brown emesis consider possible upper GI bleed however hemoglobin is normal which would argue against any significant blood loss so far. My recommendation would be hospitalization for observation and hemoglobin monitoring overnight with plans for endoscopy to be done tomorrow unless symptoms improve in which case eat EGD would not be necessary. Also discussed the potential for infectious etiologies. Stool is negative for C diff but stool for culture PCR is pending at this time. No obvious colitis on CT scan. Would hold off on empiric antibiotics for now. Also discussed his unresponsive spell. Etiology is not definitively known at this time but based on history provided, I suspect it might have been a vasovagal event. Overall I recommend admission for observation. Patient expresses his firm preference that he does not want to be hospitalized. His daughter would prefer that he stay in the hospital. I agree with her. Patient does not want stay. He is willing to stay here in the ER and trapped p.o. challenge to make sure his nausea is truly better. Reevaluation #2: Recheck-continues to feel well after p.o. challenge. He is eager for discharge. He is adamant because he wants to get home to watch the [employer] game at home. We discussed that we would be able to let him watch the [employer] game here in the hospital. Nonetheless he adamantly wants to go home. Reevaluation #3: Addendum. After the patient was discharged urine sample came back showing 5-10 white cells per high-power field. I contacted the patient his home phone at about 6:00 p.m.. Discussed with the patient and with his . She is concerned about him because he has ongoing weakness. The patient says he does not really feel weak and that he thinks he is okay. I encouraged him and also her that if he is having weakness that he really should come back to the ER so we can re-evaluate and pursue admission, as we had discussed during his 1st visit. Incidentally urine sample is abnormal indicating possible UTI. Will start the patient on cephalexin. Prescription sent to his pharmacy. Unfortunately his pharmacy is closed at this hour. He will lease picker his prescription tomorrow morning and start the antibiotic then. I encouraged him to come back to the ER with any worsening symptoms, uncontrolled nausea, diarrhea, dehydration, fever or worsening weakness. He verbalized his understanding but says he plans to stay home and watch the [employer]. Vital Signs Vital signs: Initial Vital Signs Temperature 99.1 F 06/19/24 12:01 Temperature Source Temporal Artery Scan 06/19/24 12:01 Pulse Rate 100 06/19/24 12:01 Respiratory Rate 16 06/19/24 12:01 Blood Pressure 137/76 06/19/24 12:01 Blood Pressure Mean 96 06/19/24 12:01 Blood Pressure Position Sitting 06/19/24 12:01 Pulse Oximetry 95 06/19/24 12:01 Oxygen Delivery Method Nasal Cannula 06/19/24 12:01 Vital Signs Temperature 99.1 F 06/19/24 12:01 Pulse Rate 100 06/19/24 12:01 Respiratory Rate 16 06/19/24 12:01 Blood Pressure 137/76 06/19/24 12:01 Pulse Oximetry 95 06/19/24 12:01 Oxygen Delivery Method Nasal Cannula 06/19/24 12:01 Temperature 99.1 F 06/19/24 12:01 Pulse Rate 105 H 06/19/24 15:30 Respiratory Rate 16 06/19/24 12:01 Blood Pressure 130/78 06/19/24 14:04 Pulse Oximetry 93 06/19/24 15:30 Oxygen Delivery Method Nasal Cannula 06/19/24 12:01 Medications Administered Medications: Discontinued Medications Generic Name Dose Route Start Last Admin Trade Name Valerie PRN Reason Stop Dose Admin Diphenhydramine HCl 12.5 mg 06/19/24 13:52 06/19/24 14:44 Diphenhydramine 50 Mg/Ml Inj IVP 06/19/24 13:53 12.5 mg ONCE ONE Administration Sodium Chloride 500 mls @ 500 mls/hr 06/19/24 12:54 06/19/24 14:54 0.9 % Sodium Chloride 500 Ml IV 06/19/24 13:53 Infused .Q1H ONE Infusion Metoclopramide HCl 10 mg 06/19/24 13:52 06/19/24 14:47 Metoclopramide Hcl 5 Mg/Ml Inj IVP 06/19/24 13:53 10 mg ONCE ONE Administration Ondansetron HCl 4 mg 06/19/24 12:54 06/19/24 13:20 Ondansetron 2 Mg/Ml Inj IVP 06/19/24 12:55 4 mg ONCE ONE Administration Pantoprazole Sodium 80 mg 06/19/24 13:52 06/19/24 14:44 Pantoprazole Sodium 40 Mg Inj IVP 06/19/24 13:53 80 mg ONCE ONE Administration Medical Decision Making MDM Narrative Medical decision making narrative: 89-year-old gentleman brought to the ER today by EMS from home with nausea and vomiting and diarrhea that began yesterday night with multiple episodes of emesis and diarrhea overnight. He also had a syncopal event this morning during or after 1 of his episodes of vomiting. In terms of his nausea and vomiting he did have her ongoing nausea here in the ER unresponsive to Zofran but feeling better after Reglan. He also had some ongoing diarrhea. He reports that his emesis was is brown is is stool was. His brown emesis raised concern, per EMS, they might have an upper GI bleed. I did order Protonix for potential upper GI bleed. Occult blood is positive in his stool. Hemoglobin is normal at 13.6. Blood pressure and pulse are stable. CT scan shows a lot of fluid in the stomach and intestines suggestive of viral GI illness. He does have a low-grade fever and leukocytosis which could fit with potential infectious etiology. Stool C diff and stool culture are pending at the time of this dictation. Influenza and coronavirus PCR is negative. With vomiting and diarrhea overnight leading to weakness and syncope today, consider possible dehydration or electrolyte disturbance. However metabolic profile looks good. BUN is 23 and creatinine is 1.1. Both in his normal baseline range. With his episode of reported loss of consciousness during vomiting consider possible syncope. cardiac monitor technician here in the ER shows sinus rhythm. Twelve lead EKG shows sinus rhythm and no definite ischemia. No clear early min genic abnormality such as Brugada syndrome or prolonged QT. suspect this might have been a vasovagal event. Patient overall is feeling better after nausea meds here in the ER. He had 1 small volume emesis and 1 further episode of brownish diarrhea. Lab Data Labs: Lab Results 06/19/24 06/19/24 06/19/24 Range/Units 13:18 14:39 16:10 WBC 13.44 H (4.50-11.00) K/uL RBC 5.06 (4.30-5.90) m/uL Hgb 13.6 (13.5-17.5) gm/dL Hct 43.7 (37.0-53.0) % MCV 86 (80-100) fL MCH 27 (26-34) pg MCHC 31 L (32-36) gm/dL RDW Coeff of Cricket 15.3 (11.5-15.5) % Plt Count 240 (140-440) K/uL Neut % (Auto) 84.9 H (42.0-72.0) % Lymph % (Auto) 9.4 L (20-44) % [place] % (Auto) 5.5 (0.0-11.0) % Eos % (Auto) 0.0 (0.0-7.0) % Baso % (Auto) 0.1 (0.0-3.0) % Neut # (Auto) 11.40 H (1.7-7.0) K/uL Lymph # (Auto) 1.30 (0.90-2.90) K/uL [place] # (Auto) 0.70 (0.00-0.90) K/UL Eos # (Auto) 0.00 (0.00-0.50) K/uL Baso # (Auto) 0.00 (0.00-0.30) K/uL Abs Immat Gran (auto) 0.00 (0.00-0.30) K/uL Imm/Tot Granulo (auto) 0.1 % Sodium 142 (135-149) mmol/L Potassium 4.5 (3.6-5.1) mmol/L Chloride 110 (96-114) mmol/L Carbon Dioxide 23 (20-32) mmol/L Anion Gap 9 (7-15) mEq/L BUN 23 (7-30) mg/dL Creatinine 1.1 (0.5-1.5) mg/dL Estimated Creat Clear 44.05 Estimated GFR 64 ml/min Glucose 145 H (60-115) mg/dL Lactate 1.1 (0.5-1.9) mmol/L Calcium 9.0 (8.4-10.6) mg/dL Magnesium 2.4 (1.5-2.6) mg/dL Total Bilirubin 0.6 (0.1-1.5) mg/dL AST 28 (12-35) U/L ALT 23 (4-50) U/L Alkaline Phosphatase 93 (40-150) U/L Troponin I < 0.01 L (0.01-0.04) ng/mL Total Protein 8.0 (6.0-8.3) g/dL Albumin 4.4 (3.3-5.0) g/dL Lipase 61 (23-300) U/L Urine Color Yellow (Yellow) Urine Appearance Clear (Clear) Urine pH 5.0 (5.0-8.5) Ur Specific [place] 1.010 (1.000-1.030) Urine Protein Negative (Negative) Urine Glucose (UA) Negative (Negative) Urine Ketones Negative (Negative) Urine Blood 1+ A (Negative) Urine Nitrite Negative (Negative) Urine Bilirubin Negative (Negative) Urine Urobilinogen 0.2 (0.2-1.0) Ur Leukocyte Esterase 1+ A (Negative) Urine RBC 2-5 A (0-2) Urine WBC 5-10 A (0-5) Ur Squamous Epith Cells Few (None-Few) Urine Bacteria Few A (None) Stool Occult Blood Positive (Negative) Stl C. diff Tox B Gene Negative (Negative) Stl C. diff [id number] PRESUMPTIVE NEGATIVE (Negative) SARS-CoV-2 (PCR) Negative SARS-CoV-2 (Negative) Influenza Type A (PCR) Negative PCR FLU A (Negative) Influenza Type B (PCR) Negative PCR FLU B (Negative) Imaging Data CT scan - abdomen: Attestation: I have reviewed the pertinent imaging results. Radiologist's impression: IMPRESSION: 1. There is large amount of fluid within the stomach, small bowel, colon and rectum consistent with either an ileus or diarrheal illness. 2. Moderate hiatal hernia. 3. Cholelithiasis. 4. The median lobe of the prostate gland is mildly impressing into the bladder base. ECG Data Attestation: I personally reviewed and interpreted this ECG as follows: Interpretation: Normal sinus rhythm Rate: 92 OK: 156 or 160 QRS axis: Normal ST segment/T wave: No ST segment elevation or depression. QTc: 464 Discharge Plan Discharge Clinical Impression: Vomiting and diarrhea, Syncope, Acute UTI Patient Disposition: Home, Self-Care Condition: Stable Instructions: Syncope (DC), Acute Nausea and Vomiting (DC) Additional Instructions: As we discussed, I am concerned about you. I recommend for you to stay in the hospital. You have chosen to go home. Remember you can come back to the ER right away if you change your mind. You should come back to the ER right away if you have any worsening symptoms especially uncontrolled nausea or vomiting, fever, abdominal pain, weakness, anymore dizzy spells or fainting spells, or if you have any problems. Even here get better, please recheck with your regular doctor (or come back to the ER) in 1-2 days for repeat lab tests. Prescriptions: New cephalexin 500 mg capsule 500 mg PO BID Qty: 14 0RF No Action furosemide 20 mg tablet 20 mg PO QAM pregabalin 100 mg capsule 100 mg PO BID Qty: 60 1RF albuterol sulfate 90 mcg/actuation HFA aerosol inhaler 2 puff inhalation Q4-6H PRN (Reason: shortness of breath or wheezing) Qty: 8.5 0RF montelukast 10 mg tablet 10 mg PO QDAY Patient Comments: TAKE 1 TABLET BY MOUTH EVERY DAY dorzolamide-timolol 22.3-6.8 mg/mL drops 1 drp ophthalmic (eye) BID Patient Comments: INSTILL 1 DROP IN BOTH EYES THREE TIMES DAILY guaifenesin [Mucinex] 1 tab PO QDAY acetaminophen [Tylenol Extra Strength] 500 mg tablet 1,000 mg PO BID PRN ipratropium-albuterol 0.5 mg-3 mg(2.5 mg base)/3 mL solution for nebulization 3 ml inhalation Q6H PRN (Reason: wheezing) Qty: 90 2RF ICaps AREDS2 (copper citrate) 250 mg-200 unit -12.5 mg-1 mg tablet 1 tab PO BID aspirin 81 mg tablet,delayed release (DR/EC) 81 mg PO DAILY atorvastatin 40 mg tablet 40 mg PO QHS Qty: 90 1RF (DME) nebulizers Misc See Rx Instructions .Route Qty: 1 0RF Rx Instructions: As directed allopurinol 100 mg tablet 100 mg PO QDAY Qty: 90 1RF omeprazole 20 mg capsule,delayed release(DR/EC) 20 mg PO BID Qty: 180 1RF Follow Up/Referrals: Gael Damico MD [Primary Care Provider] - Stand Alone [facility] Instructions
--- NOTE | 2024-06-19 12:54 | CRLHL7_ITS ---
For Patients: As a result of the 21st Century Cures Act, medical imaging exams and procedure reports are released immediately into your electronic medical record. You may view this report before your referring provider. If you have questions, please contact your health care provider. INDICATION: Vomiting, diarrhea and abdominal pain. Syncope. TECHNIQUE: Axial noncontrast CT cuts were performed of the abdomen and pelvis. This was followed by intravenously infused images with arterial and venous phases scanning. COMPARISON: None. FINDINGS: There is large amount of fluid within the stomach. There is throughout fluid throughout the majority of the small bowel, colon and rectum. The findings are consistent with either an ileus or diarrheal illness. There is no abrupt transition to suggest obstruction. There is no pneumatosis intestinalis. The celiac axis, superior mesenteric artery and inferior mesenteric artery are all patent. There is a small calcified gallstone within a contracted gallbladder. The appendix is not inflamed. There is no free intraperitoneal air or fluid. There are few punctate calcifications within spleen consistent with benign granulomatous disease. The liver, pancreas, and adrenals appear normal. There are a few cysts of both kidneys. The largest is on the right measuring up to 4.0 cm. There are no enlarged retroperitoneal or mesenteric lymph nodes. The median lobe of the prostate gland is impressing into the bladder base. The seminal vesicles appear normal. There no enlarged iliac or inguinal lymph nodes. There are no nodules or masses at the lung bases. There is an ankylosis of the L1 to L5 vertebral bodies. IMPRESSION: 1. There is large amount of fluid within the stomach, small bowel, colon and rectum consistent with either an ileus or diarrheal illness. 2. Moderate hiatal hernia. 3. Cholelithiasis. 4. The median lobe of the prostate gland is mildly impressing into the bladder base. Please note that all CT scans at this facility use dose modulation, iterative reconstruction, and/or weight-based dosing when appropriate to reduce radiation dose to as low as reasonably achievable. Dictated by Jaden Yanez MD @ 06/19/2024 2:55:29 PM (Electronically Signed)
[2024-06-19] MEDS: 0.9 % SODIUM CHLORIDE 500 ML 500 ML IV (13:20)
[2024-06-19] MEDS: ONDANSETRON 2 MG/ML inj 4 MG IVP (13:20)
[2024-06-19 13:27] LABS: Lactate* 1.1 mmol/L (0.5-1.9)
[2024-06-19 13:32] LABS: Basophils Percent Auto 0.1 % (0.0-3.0); Hematocrit 43.7 % (37.0-53.0); Hemoglobin* 13.6 gm/dL (13.5-17.5); Immature Granulocytes Pct Auto 0.1 %; Lymphocytes Percent Auto 9.4 % (20-44); Mean Corpuscular HGB Conc 31 gm/dL (32-36); Mean Corpuscular Hemoglobin 27 pg (26-34); Mean Corpuscular Volume 86 fL (80-100); Monocytes Percent Auto 5.5 % (0.0-11.0); Neutrophils Percent Auto 84.9 % (42.0-72.0); Platelet Count* 240 K/uL (140-440); RDW Coefficient of Variation % 15.3 % (11.5-15.5); Red Blood Count 5.06 m/uL (4.30-5.90); White Blood Count* 13.44 K/uL (4.50-11.00)
[2024-06-19 13:44] LABS: Albumin* 4.4 g/dL (3.3-5.0); Chloride* 110 mmol/L (96-114); Potassium* 4.5 mmol/L (3.6-5.1); Sodium* 142 mmol/L (135-149)
[2024-06-19 13:46] LABS: Lipase* 61 U/L (23-300)
[2024-06-19 13:47] LABS: Alanine Aminotransferase* 23 U/L (4-50); Alkaline Phosphatase* 93 U/L (40-150); Anion Gap 9 mEq/L (7-15); Aspartate Amino Transferase* 28 U/L (12-35); Bilirubin Total* 0.6 mg/dL (0.1-1.5); Blood Urea Nitrogen* 23 mg/dL (7-30); Carbon Dioxide* 23 mmol/L (20-32); Creatinine* 1.1 mg/dL (0.5-1.5); Est. Creatinine Clearance* 44.05; Estimated Glomerular Filt Rate 64 ml/min; Glucose* 145 mg/dL (60-115); Magnesium* 2.4 mg/dL (1.5-2.6)
[2024-06-19 14:03] LABS: Troponin I* < 0.01 ng/mL (0.01-0.04)
[2024-06-19 14:04] LABS: Slide Review Reflex No
[2024-06-19 14:11] LABS: PCR FLU A Negative PCR FLU A (Negative); PCR FLU B Negative PCR FLU B (Negative); SARS PCR* Negative SARS-CoV-2 (Negative)
--- OUTSIDE RECORDS SUMMARY | 2024-06-19 14:40 | XMS_ITS | Clinical Summary ---
Author Organization [facility] Address [address] [address] Phone Care Team Providers Care Minibus Driver Name Role Phone Gael Damico MD Primary Care Provider Camron Ohara MD Unavailable [phone] Allergies Active Allergy Reactions Criticality Noted Date [...] topic Insurance [employer] Care Teams Minibus Driver Relationship Specialty Start Date End Date Gael Damico MD [facility] [address] [place] [address] PCP - General Family Medicine 11/14/23 Camron Ohara MD [address] [place] [address] Podiatry 11/14/23
--- OUTSIDE RECORDS SUMMARY | 2024-06-19 14:40 | XMS_ITS | Clinical Summary ---
Author Organization [facility] Address [place], [place] [address] Care Team Providers Care Sr Risk Management Consultant Name Role Phone Evin Ramses Primary Care [...] Department Care Team Description 04/20/2024 2:00 PM PHARMACY LABORATORY TECHNICIAN Ancillary Procedure 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 Not on file Not [...] COMPLETE WO CONTRAST Routine 04/20/2024 2:44 PM PHARMACY LABORATORY TECHNICIAN Transient cerebral ischemic attack, unspecified from Last 3 Months Results * ECHO TTE COMPLETE WO CONTRAST (04/20/2024 2:44 PM PHARMACY LABORATORY TECHNICIAN) AORTIC VALVE MEAN PG 6 mmHg EJECTION FRACTION 52 % PEAK TR VELOCITY 2.5 m/s LVEDD 3.7 cm Anatomical Region Laterality Modality Ultrasound 04/20/2024 2:26 PM PHARMACY LABORATORY TECHNICIAN Narrative 04/20/2024 3:03 PM PHARMACY LABORATORY TECHNICIAN ECHOCARDIOGRAM ZAID RUTLEDGE : 1935 89 years Study Date: 04/20/2024 2:26:21 PM Gender: M BP: 118/76 mmHg Height: 175.00 cm BSA: 2.32 m Weight: 119.00 kg Tech: CHRISTOPHER Referring MD: CARLOS KIDD Site: [facility] Reading Location: Mobile-OP Patient Location: [...] . This study was interpreted by an [facility] accredited facility. CC: [facility] (med smallpox hospital) [facility]. Final Procedure Note Magui Phillips, [facility] - 04/20/2024 ECHOCARDIOGRAM ZAID RUTLEDGE : 1935 89 years Study Date: 04/20/2024 2:26:21 PM Gender: M BP: 118/76 mmHg Height: 175.00 cm BSA: 2.32 m Weight: 119.00 kg Tech: CHRISTOPHER Referring MD: CARLOS KIDD Site: [facility] Reading Location: Mobile-OP Patient Location: [...] interpreted by an [facility] accredited facility. CC: [facility] (med records) [facility]. Final Carlos Kidd MD ECHO ORD Final Re sult from Last 3 Months Insurance MEDICARE PART B HB ONLY [place] HB ONLY BERTHA ROMEO [id number] MEDICARE ADVANTAGE [address] [place]ER[place]A [place]OMEO [id number] [address] [place] [id number] Care Teams Sr Risk Management Consultant Relationship Specialty Start Date End Date Ramses Cleary PCP - General Family Practice 05/29/11
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
--- OUTSIDE RECORDS SUMMARY | 2024-06-19 14:41 | XMS_ITS | Encounter Summary ---
Author Organization [facility] Address [address], [place] [address] Care Team Providers Care Clicking Machine Operator Name Role Phone Gael Damico MD Primary Care Provider [phone] Encounter Details Date Type Department Care Team (Late st Contact Info) Description 09/15/2017 Correspondence [facility] Urology [address] [place] [address] Waqas Rodney MD [address] [place] [address] [facility] UROLOGICAL RX Social History Tobacco Use [...] on filedocumented in this encounter Care Teams Clicking Machine Operator Relationship Specialty Start Date End Date Gael Damico MD [address] [place] [address] PCP - General Family Practice 08/01/22 documented as of this encounter
--- OUTSIDE RECORDS SUMMARY | 2024-06-19 14:41 | XMS_ITS | Continuity of Care Document ---
Author Name [facility] Address Unknown Organization Unknown Address Unknown Alerts, Allergies and Adverse Reactions FILTER APPLIED:All Known Active Allergies Substance Reaction Onset Status (EXCEDRIN EXTRA STRENGTH) ANAPHYLAXIS (Severe) 2023 Active Procedures FILTER APPLIED:Only known Procedures with Onset Date within the last 5 years Procedure Date Procedure Provider Additional Inform ation Status URINE CULTURE/COLONY COUNT (20262) Completed URINALYSIS AUTO W/SCOPE (45282) Completed Encounters FILTER APPLIED:Only known Encounters with Admission Date within the last 5 years Encounter Location Admission Discharge Billing Code Assistant Superintendent Hanh goel Outpatient Gael Damico Emergency [facility] EMERGENCY [facility] [place] Emergency [facility]
--- OUTSIDE RECORDS SUMMARY | 2024-06-19 14:41 | XMS_ITS | Encounter Summary ---
Author Organization [facility] Address [address] [address] Care Team Providers Care Mission Analyst Name Role Phone Gael Damico MD Primary Care Provider [phone] Encounter Details Date Type Department Care Team (Late st Contact Info) Description 08/04/2013 Consent for Procedure/Treatme nt Same Day Surgery [address] [place] [address] [facility], Provider [facility] INFORMED CONSENT Social History Tobacco [...] of this encounter Progress Notes * [facility], Provider - 08/04/2013 12:00 AM CST ICAL PROCESSING EQUIPMENT REPAIRER documented in this encounter Plan of Treatment Not on file documented as of this encounter Visit Diagnoses Not on filedocumented in this encounter Care Teams Mission Analyst Relationship Specialty Start Date End Date Gael Damico MD [address] [place] [address] PCP - General Family Practice 08/01/22 documented as of this encounter
--- OUTSIDE RECORDS SUMMARY | 2024-06-19 14:41 | XMS_ITS | Encounter Summary ---
Author Organization [facility] Address [address], [place] [address] Care Team Providers Care Radar Tester Name Role Phone Gael Damico MD Primary Care Provider Encounter Details Date Type Department Care Team (Late st Contact Info) Description 07/23/2018 Correspondence [facility] Urology [address] [place] [address] Waqas Rodney MD [address] [place] [address] [facility] ORDER Social History Tobacco Use Types [...] on filedocumented in this encounter Care Teams Radar Tester Relationship Specialty Start Date End Date Gael Damico MD [address] [place] [address] PCP - General Family Practice 08/01/22 documented as of this encounter
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
--- OUTSIDE RECORDS SUMMARY | 2024-06-19 14:41 | XMS_ITS | Encounter Summary ---
Author Organization [facility] Address [address], [place] [address] Care Team Providers Care Locomotive Operator Name Role Phone Gael Damico MD Primary Care Provider Encounter Details Date Type Department Care Team (Late st Contact Info) Description 10/08/2016 Scanned History [facility] Imaging [address] [place] [address] [facility], Provider LV MRI SAFETY AND HEALTH [...] on filedocumented in this encounter Care Teams Locomotive Operator Relationship Specialty Start Date End Date Gael Damico MD [address] [place] [address] PCP - General Family Practice 08/01/22 documented as of this encounter
--- OUTSIDE RECORDS SUMMARY | 2024-06-19 14:41 | XMS_ITS | Encounter Summary ---
Author Organization [facility] Address [address] [address] Care Team Providers Care Senior Operations Analyst Name Role Phone Gael Damico MD Primary Care Provider Encounter Details Date Type Department Care Team (Late st Contact Info) Description 12/31/2006 Consent for Procedure/Treatme nt [facility] [address] [place] [address] Mark Boyd MD [address] [place] [address] CONSENT FOR DIAGNOSTIC PROCEDURE Social History Tobacco [...] filedocumented in this encounter Care Teams Senior Operations Analyst Relationship Specialty Start Date End Date Gael Damico MD [address] [place] [address] PCP - General Family Practice 08/01/22 documented as of this encounter
--- OUTSIDE RECORDS SUMMARY | 2024-06-19 14:41 | XMS_ITS | Encounter Summary ---
Author Organization [facility] Address [address], [place] [address] Care Team Providers Care Automotive Parts Specialist Name Role Phone Gael Damico MD Primary Care Provider Encounter Details Date Type Department Care Team (Late st Contact Info) Description 09/16/2017 Scanned History External to Transferred Record, Provider [facility] Social History Tobacco Use Types Packs/Day Years [...] on filedocumented in this encounter Care Teams Automotive Parts Specialist Relationship Specialty Start Date End Date Gael Damico MD [address] [place] [address] PCP - General Family Practice 08/01/22 documented as of this encounter
--- OUTSIDE RECORDS SUMMARY | 2024-06-19 14:41 | XMS_ITS | Encounter Summary ---
Author Organization [facility] Address [address] [address] Care Team Providers Care Out Patient Therapist Name Role Phone Gael Damico MD Primary Care Provider [phone] Encounter Details Date Type Department Care Team (Late st Contact Info) Description 01/07/2017 Consent for Procedure/Treatme [facility], Provider [facility] CONSENT FOR SURGERY OR [...] on filedocumented in this encounter Care Teams Out Patient Therapist Relationship Specialty Start Date End Date Gael Damico MD [address] [place] [address] PCP - General Family Practice 08/01/22 documented as of this encounter
--- OUTSIDE RECORDS SUMMARY | 2024-06-19 14:41 | XMS_ITS | Encounter Summary ---
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
--- OUTSIDE RECORDS SUMMARY | 2024-06-19 14:41 | XMS_ITS | Encounter Summary ---
Author Organization [employer] Address [address] [address] Care Team Providers Care Instructor Warper Name Role Phone Gael Damico MD Primary Care Provider Encounter Details Date Type Department Care Team (Late st Contact Info) Description 10/29/2015 Consent for Procedure/Treatme nt [facility] S[facility] [address] [place] [address] [facility], Provider [facility] INFORMED CONSENT Social History Tobacco Use Types [...] filedocumented in this encounter Care Teams Instructor Warper Relationship Specialty Start Date End Date Gael Damico MD [address] [place] [address] PCP - General Family Practice 08/01/22 documented as of this encounter
--- OUTSIDE RECORDS SUMMARY | 2024-06-19 14:41 | XMS_ITS | Encounter Summary ---
Author Organization [employer] Address [address], [place] [address] Care Team Providers Care Claim Investigator Name Role Phone Gael Damico MD Primary Care Provider Encounter Details Date Type Department Care Team (Late st Contact Info) Description 10/28/2016 Scanned History [facility] [address] [place] [address] [facility], Provider LV MRI SAFETY AND HEALTH [...] on filedocumented in this encounter Care Teams Claim Investigator Relationship Specialty Start Date End Date Gael Damico MD [address] [place] [address] PCP - General Family Practice 08/01/22 documented as of this encounter
--- OUTSIDE RECORDS SUMMARY | 2024-06-19 14:41 | XMS_ITS | Encounter Summary ---
Author Organization [employer] Address [address], [place] [address] Care Team Providers Care Equipment Associate Name Role Phone Gael Damico MD Primary Care Provider Encounter Details Date Type Department Care Team (Late st Contact Info) Description 01/05/2012 Consent for Procedure/Treatme nt [facility] [address] [place] [address] [facility], Provider LV MRI [...] on filedocumented in this encounter Care Teams Equipment Associate Relationship Specialty Start Date End Date Gael Damico MD [address] [place] [address] PCP - General Family Practice 08/01/22 documented as of this encounter
--- OUTSIDE RECORDS SUMMARY | 2024-06-19 14:41 | XMS_ITS | Encounter Summary ---
Author Organization [facility] Address [address], [place] [address] Care Team Providers Care Material Manager Name Role Phone Gael Damico MD Primary Care Provider Encounter Details Date Type Department Care Team (Late st Contact Info) Description 06/18/2007 Consent for Procedure/Treatme nt [facility] [address] [facility] 401 [facility] [place] [address] Mark Boyd MD [address] [place] [address] CONSENT FOR PROCEDURE Social History Tobacco Use [...] * Mark Boyd - 06/18/2007 12:00 AM BOX COVERER HAND COVERER HAND documented in this encounter Plan of Treatment Not on file documented as of this encounter Visit Diagnoses Not on filedocumented in this encounter Care Teams Material Manager Relationship Specialty Start Date End Date Gael Damico MD [address] [place] [address] PCP - General Family Practice 08/01/22 documented as of this encounter
--- OUTSIDE RECORDS SUMMARY | 2024-06-19 14:41 | XMS_ITS | Encounter Summary ---
Author Organization [employer] Address [address] [place] [address] Care Team Providers Care Vehicle Glass Technician Name Role Phone Gael Damico MD Primary Care Provider [phone] Reason for Visit * Reason Comments Refill Encounter Details Date Type Department Care Team (Late st Contact Info) Description 12/03/2017 Nurse Triage Careline [address] [place], [place] [address] Unassigned, Provider [address] [place] [address] Refill Social History Tobacco Use Types Packs/Day [...] Quinn RN - 12/03/2017 7:29 PM CDT Patient/vp care management request: Input needed Medication Specific Request: See [...] per unit policy Protocols used: MEDICATION QUESTION [id number] Plan: Pravastatin 30 day/no refills ordered per standing order and sent to [facility] patient/caller to call back CareLine if symptoms get worse or if you have any further questions or concerns. The CareLine is available 05/01. Lenka Quinn RN 12/03/2017, 7:58 PM * Mine Carroll - 12/03/2017 7:17 PM CDT Verified patient identity using three identifiers: Yes Caller's relationship to patient: Self At which care system or clinic is the patient normally seen? [facility] Medication Questions/New Med Request/ Side Effects [...] on filedocumented in this encounter Care Teams Vehicle Glass Technician Relationship Specialty Start Date End Date Gael Damico MD [address] [place] [address] PCP - General Family Practice 08/01/22 documented as of this encounter
--- OUTSIDE RECORDS SUMMARY | 2024-06-19 14:41 | XMS_ITS | Encounter Summary ---
Author Organization [employer] Address [address], [place] [address] Care Team Providers Care Overhauler Helper Name Role Phone Gael Damico MD Primary Care Provider [phone] Encounter Details Date Type Department Care Team (Late st Contact Info) Description 10/28/2016 Consent for Procedure/Treatme [facility] Same Day Surgery [address] [place] [address] [facility], Provider [facility] INFORMED CONSENT Social History Tobacco Use Types [...] on filedocumented in this encounter Care Teams Overhauler Helper Relationship Specialty Start Date End Date Gael Damico MD [address] [place] [address] PCP - General Family Practice 08/01/22 documented as of this encounter
--- OUTSIDE RECORDS SUMMARY | 2024-06-19 14:41 | XMS_ITS | Encounter Summary ---
Author Organization [facility] Address [address] [address] Care Team Providers Care Protection Specialist Name Role Phone Gael Damico MD Primary Care Provider [phone] Encounter Details Date Type Department Care Team (Late st Contact Info) Description 03/25/2016 Correspondence [facility] T[facility] [address] [place] [address] Wandy Goff PA-C [address] [place], [place] [id number] [facility] PAYMENT AGREEMENT WAIVER Social History [...] on filedocumented in this encounter Care Teams Protection Specialist Relationship Specialty Start Date End Date Gael Damico MD [address] [place] [address] PCP - General Family Practice 08/01/22 documented as of this encounter
--- OUTSIDE RECORDS SUMMARY | 2024-06-19 14:41 | XMS_ITS | Encounter Summary ---
Author Organization [facility] Address [address] [place] [address] Care Team Providers Care Real Estate Representative Name Role Phone Gael Damico MD Primary Care Provider Encounter Details Date Type Department Care Team (Late st Contact Info) Description 08/08/2019 Correspondence [facility] Urology [address] [place] [address] Waqas Rodney MD [address] [place] [address] [facility] MEDICAL WRITTEN ORDER Social History Tobacco [...] in this encounter Care Teams Real Estate Representative Relationship Specialty Start Date End Date Gael Damico MD [address] [place] [address] PCP - General Family Practice 08/01/22 documented as of this encounter
[2024-06-19] MEDS: PANTOPRAZOLE SODIUM 40 MG INJ 80 MG IVP (14:44)
[2024-06-19] MEDS: diphenhydrAMINE 50 MG/ML inj 12.5 MG IVP (14:44)
[2024-06-19] MEDS: METOCLOPRAMIDE HCL 5 MG/ML INJ 10 MG IVP (14:47)
[2024-06-19 15:01] LABS: Fecal Occult Blood* Positive (Negative)
[2024-06-19 15:35] LABS: C.Difficile Negative (Negative); CDIFFEPI 027 PRESUMPTIVE NEGATIVE (Negative)
[2024-06-19 16:19] LABS: Appearance Urine Clear (Clear); Bilirubin Urine Negative (Negative); Blood Urine 1+ (Negative); Color Urine Yellow (Yellow); Glucose Urine Negative (Negative); Ketones Urine Negative (Negative); Leukocyte Esterase Urine 1+ (Negative); Nitrite Urine Negative (Negative); Protein Urine Negative (Negative); Urobilinogen Urine 0.2 (0.2-1.0)
[2024-06-19 16:44] LABS: Bacteria Urine Few; Squamous Epithelial Cell Urine Few (None-Few)
--- NOTE | 2024-06-25 08:22 | ED.GENADULT ---
HPI - General Adult General Date Seen: 06/19/24 Chief complaint: GI Bleed Stated complaint: GI bleed Time Seen by Provider: 06/19/24 11:59 History of Present Illness HPI narrative: addendum to recent ER visit. Urine Cx growing citrobacter. pansensitive. on cephalexin. Related Data Home Medications ?Medication ?Instructions ?Recorded ?Confirmed acetaminophen 500 mg tablet 1,000 mg PO BID PRN 06/20/22 06/19/24 (Tylenol Extra Strength) montelukast 10 mg tablet 10 mg PO QDAY 06/20/22 06/19/24 dorzolamide 22.3 mg-timolol 6.8 1 drp ophthalmic (eye) BID 07/22/22 06/19/24 mg/mL eye drops vit C 250 mg-vit E 200 unit-zinc 1 tab PO BID 12/26/22 06/19/24 12.5 mg-copper 1 [id number] tablet (ICaps AREDS2 (copper citrate)) guaifenesin [Mucinex] 1 tab PO QDAY 02/25/24 06/19/24 aspirin 81 mg tablet,delayed 81 mg PO DAILY 03/22/24 06/19/24 release furosemide 20 mg tablet 20 mg PO QAM 06/09/24 06/19/24 Previous Rx's ?Medication ?Instructions ?Recorded albuterol sulfate 90 mcg/actuation 2 puff inhalation Q4-6H PRN 06/13/22 aerosol inhaler shortness of breath or wheezing #8.5 grams ipratropium 0.5 mg-albuterol 3 mg 3 ml inhalation Q6H PRN wheezing 06/20/22 (2.5 mg base)/3 mL nebulization #90 mL soln nebulizers #1 ea 06/27/22 atorvastatin 40 mg tablet 40 mg PO QHS #90 tabs 03/22/24 allopurinol 100 mg tablet 100 mg PO QDAY #90 tabs 03/28/24 omeprazole 20 mg capsule,delayed 20 mg PO BID #180 caps 03/28/24 release pregabalin 100 mg capsule 100 mg PO BID #60 caps 06/09/24 cephalexin 500 mg capsule 500 mg PO BID #14 caps 06/19/24 Allergies Allergy/AdvReac Type Severity Reaction Status Date / Time acetaminophen (From Excedrin Allergy Severe Anaphylaxis Verified 06/19/24 12:09 Extra Strength) aspirin (From Excedrin Extra Allergy Severe Anaphylaxis Verified 06/19/24 12:09 Strength) banana Allergy Severe Anaphylaxis Verified 06/19/24 12:09 walnut Allergy Severe Anaphylaxis Verified 06/19/24 12:09 watermelon Allergy Severe Anaphylaxis Verified 06/19/24 12:09 levofloxacin (From Levaquin) Allergy Unknown Hamstring Verified 06/19/24 12:09 Tendonitis [facility] Medical History (Updated 06/19/24 @ 18:11 by Michael Louis MD) TIA (transient ischemic attack) ?G45.9 - Transient cerebral ischemic attack, unspecified (ICD-10) Mixed hyperlipidemia ?E78.2 - Mixed hyperlipidemia (ICD-10) History of gout ?Z87.39 - Personal history of other diseases of the musculoskeletal system and connective tissue (ICD-10) Primary hypertension ?I10 - Essential (primary) hypertension (ICD-10) Primary open angle glaucoma (POAG) ?H40.1190 - Primary open-angle glaucoma, unspecified eye, stage unspecified (ICD-10) Age-related macular degeneration ?H35.30 - Unspecified macular degeneration (ICD-10) History of prostate cancer ?Z85.46 - Personal history of malignant neoplasm of prostate (ICD-10) Chronic cough ?R05.3 - Chronic cough (ICD-10) History of TIA (transient ischemic attack) (11/2021) ?Z86.73 - Personal history of transient ischemic attack (TIA), and cerebral infarction without residual deficits (ICD-10) 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 - Vertebro-basilar artery syndrome (ICD-10) Hemoptysis (10/2021) ?R04.2 - Hemoptysis (ICD-10) GERD (gastroesophageal reflux disease) ?K21.9 - Gastro-esophageal reflux disease without esophagitis (ICD-10) Surgical History History of repair of right rotator cuff ?Z98.890 - Other specified postprocedural states (ICD-10) History of tonsillectomy ?Z90.89 - Acquired absence of other organs (ICD-10) History of back surgery ?Z98.890 - Other specified postprocedural states (ICD-10) History of phacoemulsification of cataract of both eyes with intraocular lens implantation ?Z98.41 - Cataract extraction status, right eye (ICD-10) ?Z98.42 - Cataract extraction status, left eye (ICD-10) ?Z96.1 - Presence of intraocular lens (ICD-10) History of esophagogastroduodenoscopy (EGD) (01/21/22) ?Z98.890 - Other specified postprocedural states (ICD-10) History of basal cell carcinoma (BCC) (2005) ?Z85.828 - Personal history of other malignant neoplasm of skin (ICD-10) History of transurethral resection of prostate ?Z98.890 - Other specified postprocedural states (ICD-10) ?Z90.79 - Acquired absence of other genital organ(s) (ICD-10) History of bronchoscopy (01/28/22) ?Z98.890 - Other specified postprocedural states (ICD-10) History of total left knee replacement ?Z96.652 - Presence of left artificial knee joint (ICD-10) Family History Father Colon cancer Prostate cancer Coronary artery disease Social History Narrative: , 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, 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 What is your current living situation?: I presently have a place to live Problems where you live: no known problems In the past 12 months, utilities in danger of being shut off: no In past 12 months, lack of transportation kept you from medical appts, meetings, work, or getting things needed for daily living: no In the past 12 mos, have been you worried that your food would run out before you had money to buy more?: never true In the past 12 mos, the food you bought just didn't last and you didn't have money to buy more?: never true Smoking Status: Former smoker Do you use any of these nicotine containing products: None Second hand tobacco smoke exposure: No How often do you have a drink containing alcohol: 2-3 times a week AUDIT-C Alcohol total score: 3 Non-prescribed substance use: denies use How often does anyone, including family, friends and others, physically hurt you: never How often does anyone, including family, friends and others, insult or talk down to you: never How often does anyone, including family, friends and others, threaten you with harm: never How often does anyone, including family, friends and others, scream or curse at you: rarely Health Related Social Needs: Other personal risk factors, not elsewhere classified (Z91.89) Course Vital Signs Vital signs: Initial Vital Signs Temperature 99.1 F 06/19/24 12:01 Temperature Source Temporal Artery Scan 06/19/24 12:01 Pulse Rate 100 06/19/24 12:01 Respiratory Rate 16 06/19/24 12:01 Blood Pressure 137/76 06/19/24 12:01 Blood Pressure Mean 96 06/19/24 12:01 Blood Pressure Position Sitting 06/19/24 12:01 Pulse Oximetry 95 06/19/24 12:01 Oxygen Delivery Method Nasal Cannula 06/19/24 12:01 Vital Signs Temperature 99.1 F 06/19/24 12:01 Pulse Rate 100 06/19/24 12:01 Respiratory Rate 16 06/19/24 12:01 Blood Pressure 137/76 06/19/24 12:01 Pulse Oximetry 95 06/19/24 12:01 Oxygen Delivery Method Nasal Cannula 06/19/24 12:01 Temperature 99.1 F 06/19/24 12:01 Pulse Rate 105 H 06/19/24 15:30 Respiratory Rate 16 06/19/24 12:01 Blood Pressure 130/78 06/19/24 14:04 Pulse Oximetry 93 06/19/24 15:30 Oxygen Delivery Method Nasal Cannula 06/19/24 12:01 Medications Administered Medications: Discontinued Medications Generic Name Dose Route Start Last Admin Trade Name Freq PRN Reason Stop Dose Admin Diphenhydramine HCl 12.5 mg 06/19/24 13:52 06/19/24 14:44 Diphenhydramine 50 Mg/Ml Inj IVP 06/19/24 13:53 12.5 mg ONCE ONE Administration Sodium Chloride 500 mls @ 500 mls/hr 06/19/24 12:54 06/19/24 14:54 0.9 % Sodium Chloride 500 Ml IV 06/19/24 13:53 Infused .Q1H ONE Infusion Metoclopramide HCl 10 mg 06/19/24 13:52 06/19/24 14:47 Metoclopramide Hcl 5 Mg/Ml Inj IVP 06/19/24 13:53 10 mg ONCE ONE Administration Ondansetron HCl 4 mg 06/19/24 12:54 06/19/24 13:20 Ondansetron 2 Mg/Ml Inj IVP 06/19/24 12:55 4 mg ONCE ONE Administration Pantoprazole Sodium 80 mg 06/19/24 13:52 06/19/24 14:44 Pantoprazole Sodium 40 Mg Inj IVP 06/19/24 13:53 80 mg ONCE ONE Administration Medical Decision Making Lab Data Labs: Lab Results 06/19/24 06/19/24 06/19/24 Range/Units 13:18 14:39 16:10 WBC 13.44 H (4.50-11.00) K/uL RBC 5.06 (4.30-5.90) m/uL Hgb 13.6 (13.5-17.5) gm/dL Hct 43.7 (37.0-53.0) % MCV 86 (80-100) fL MCH 27 (26-34) pg MCHC 31 L (32-36) gm/dL RDW Coeff of Cricket 15.3 (11.5-15.5) % Plt Count 240 (140-440) K/uL Neut % (Auto) 84.9 H (42.0-72.0) % Lymph % (Auto) 9.4 L (20-44) % Burnett % (Auto) 5.5 (0.0-11.0) % Eos % (Auto) 0.0 (0.0-7.0) % Baso % (Auto) 0.1 (0.0-3.0) % Neut # (Auto) 11.40 H (1.7-7.0) K/uL Lymph # (Auto) 1.30 (0.90-2.90) K/uL Burnett # (Auto) 0.70 (0.00-0.90) K/UL Eos # (Auto) 0.00 (0.00-0.50) K/uL Baso # (Auto) 0.00 (0.00-0.30) K/uL Abs Immat Gran (auto) 0.00 (0.00-0.30) K/uL Imm/Tot Granulo (auto) 0.1 % Sodium 142 (135-149) mmol/L Potassium 4.5 (3.6-5.1) mmol/L Chloride 110 (96-114) mmol/L Carbon Dioxide 23 (20-32) mmol/L Anion Gap 9 (7-15) mEq/L BUN 23 (7-30) mg/dL Creatinine 1.1 (0.5-1.5) mg/dL Estimated Creat Clear 44.05 Estimated GFR 64 ml/min Glucose 145 H (60-115) mg/dL Lactate 1.1 (0.5-1.9) mmol/L Calcium 9.0 (8.4-10.6) mg/dL Magnesium 2.4 (1.5-2.6) mg/dL Total Bilirubin 0.6 (0.1-1.5) mg/dL AST 28 (12-35) U/L ALT 23 (4-50) U/L Alkaline Phosphatase 93 (40-150) U/L Troponin I < 0.01 L (0.01-0.04) ng/mL Total Protein 8.0 (6.0-8.3) g/dL Albumin 4.4 (3.3-5.0) g/dL Lipase 61 (23-300) U/L Urine Color Yellow (Yellow) Urine Appearance Clear (Clear) Urine pH 5.0 (5.0-8.5) Ur Specific Tennille 1.010 (1.000-1.030) Urine Protein Negative (Negative) Urine Glucose (UA) Negative (Negative) Urine Ketones Negative (Negative) Urine Blood 1+ A (Negative) Urine Nitrite Negative (Negative) Urine Bilirubin Negative (Negative) Urine Urobilinogen 0.2 (0.2-1.0) Ur Leukocyte Esterase 1+ A (Negative) Urine RBC 2-5 A (0-2) Urine WBC 5-10 A (0-5) Ur Squamous Epith Cells Few (None-Few) Urine Bacteria Few A (None) Stool Occult Blood Positive (Negative) Stl C. diff Tox B Gene Negative (Negative) Stl C. diff [id number] PRESUMPTIVE NEGATIVE (Negative) SARS-CoV-2 (PCR) Negative SARS-CoV-2 (Negative) Influenza Type A (PCR) Negative PCR FLU A (Negative) Influenza Type B (PCR) Negative PCR FLU B (Negative) Discharge Plan Discharge Clinical Impression: Vomiting and diarrhea, Syncope, Acute UTI Patient Disposition: Home, Self-Care Condition: Stable Instructions: Syncope (DC), Acute Nausea and Vomiting (DC) Additional Instructions: As we discussed, I am concerned about you. I recommend for you to stay in the hospital. You have chosen to go home. Remember you can come back to the ER right away if you change your mind. You should come back to the ER right away if you have any worsening symptoms especially uncontrolled nausea or vomiting, fever, abdominal pain, weakness, anymore dizzy spells or fainting spells, or if you have any problems. Even here get better, please recheck with your regular doctor (or come back to the ER) in 1-2 days for repeat lab tests. Prescriptions: New cephalexin 500 mg capsule 500 mg PO BID Qty: 14 0RF No Action furosemide 20 mg tablet 20 mg PO QAM pregabalin 100 mg capsule 100 mg PO BID Qty: 60 1RF albuterol sulfate 90 mcg/actuation HFA aerosol inhaler 2 puff inhalation Q4-6H PRN (Reason: shortness of breath or wheezing) Qty: 8.5 0RF montelukast 10 mg tablet 10 mg PO QDAY Patient Comments: TAKE 1 TABLET BY MOUTH EVERY DAY dorzolamide-timolol 22.3-6.8 mg/mL drops 1 drp ophthalmic (eye) BID Patient Comments: INSTILL 1 DROP IN BOTH EYES THREE TIMES DAILY guaifenesin [Mucinex] 1 tab PO QDAY acetaminophen [Tylenol Extra Strength] 500 mg tablet 1,000 mg PO BID PRN ipratropium-albuterol 0.5 mg-3 mg(2.5 mg base)/3 mL solution for nebulization 3 ml inhalation Q6H PRN (Reason: wheezing) Qty: 90 2RF ICaps AREDS2 (copper citrate) 250 mg-200 unit -12.5 mg-1 mg tablet 1 tab PO BID aspirin 81 mg tablet,delayed release (DR/EC) 81 mg PO DAILY atorvastatin 40 mg tablet 40 mg PO QHS Qty: 90 1RF (DME) nebulizers Misc See Rx Instructions .Route Qty: 1 0RF Rx Instructions: As directed allopurinol 100 mg tablet 100 mg PO QDAY Qty: 90 1RF omeprazole 20 mg capsule,delayed release(DR/EC) 20 mg PO BID Qty: 180 1RF Follow Up/Referrals: Gael Damico MD [Primary Care Provider] - Stand Alone Forms: [employer] Info Instructions
== END 2024-06-19 16:49 | disposition home or self-care (01) ==
PROVIDERS: Emergency Provider Emergency Medicine; PCP Family Medicine
DX: R11.2 Nausea with vomiting, unspecified (principal); R55 Syncope and collapse; N39.0 Urinary tract infection, site not specified
CPT/HCPCS: 36415; 74174; 80053; 81001; 82270; 83605; 83690; 83735; 83789; 84484; 85025; 87045; 87046; 87086; 87186; 87427; 87493; 87631; 93005; 96374; 96375; 99284; 99285; J1200; J2405; J2470; J2765; J7030; Q9967

== ENCOUNTER 2024-07-19 21:48 | Outpatient (CLI) | payer OTHER, SELFPAY | END 2024-07-19 21:49 | disposition home or self-care (01) | LOC: AMB 07-26 09:00 | PROVIDERS: PCP Family Medicine; Visit Provider Family Medicine | DX: S99.922A Unspecified injury of left foot, initial encounter (principal); W18.30XA Fall on same level, unspecified, initial encounter; Y92.009 Unspecified place in unspecified non-institutional (private) residence as the place of occurrence of the external cause | CPT/HCPCS: A0425; A0427 ==

== ENCOUNTER 2024-07-19 22:26 | Emergency (ER) | payer OTHER, SELFPAY ==
--- OUTSIDE RECORDS SUMMARY | 2024-07-19 22:28 | XMS_ITS | Encounter Summary ---
Author Organization [employer] Address [address], [place] [address] Care Team Providers Care Processor Inspector Name Role Phone Gael Damico MD Primary Care Provider Encounter Details Date Type Department Care Team (Late st Contact Info) Description 08/04/2013 Consent for Procedure/Treatme nt Same Day Surgery [address] [place] [address] [facility], Provider [facility] INFORMED CONSENT Social History Tobacco Use [...] as of this encounter Progress Notes * [facility], Provider - 08/04/2013 12:00 AM CST CHOOL TEACHER ASSISTANT documented in this encounter Plan of Treatment Not on file documented as of this encounter Visit Diagnoses Not on filedocumented in this encounter Care Teams Processor Inspector Relationship Specialty Start Date End Date Gael Damico MD [address] [place] [address] PCP - General Family Practice 08/01/22 documented as of this encounter
--- OUTSIDE RECORDS SUMMARY | 2024-07-19 22:28 | XMS_ITS | Encounter Summary ---
Author Organization [employer] Address [address] [address] Care Team Providers Care Voice Coach Name Role Phone Gael Damico MD Primary Care Provider Encounter Details Date Type Department Care Team (Late st Contact Info) Description 07/22/2013 Consent for Procedure/Treatme nt [facility] [address] [place] [address] [facility], Provider [place] CONSENT FOR CONTRAST [...] as of this encounter Progress Notes * [facility], Provider - 07/22/2013 12:00 AM CST Y COIL WINDER documented in this encounter Plan of Treatment Not on file documented as of this encounter Visit Diagnoses Not on filedocumented in this encounter Care Teams Voice Coach Relationship Specialty Start Date End Date Gael Damico MD [address] [place] [address] PCP - General Family Practice 08/01/22 documented as of this encounter
--- OUTSIDE RECORDS SUMMARY | 2024-07-19 22:28 | XMS_ITS | Encounter Summary ---
Author Organization [employer] Address [address], [place] [address] Care Team Providers Care Community Manager Name Role Phone Gael Damico MD Primary Care Provider Encounter Details Date Type Department Care Team (Late st Contact Info) Description 10/28/2016 Scanned History [facility] [address] [place] [address] [facility], Provider [place] MRI SAFETY AND [...] filedocumented in this encounter Care Teams Community Manager Relationship Specialty Start Date End Date Gael Damico MD [address] [place] [address] PCP - General Family Practice 08/01/22 documented as of this encounter
--- OUTSIDE RECORDS SUMMARY | 2024-07-19 22:28 | XMS_ITS | Encounter Summary ---
Author Organization [employer] Address [address] [address] Care Team Providers Care Diet Aide Name Role Phone Gael Damico MD Primary Care Provider Encounter Details Date Type Department Care Team (Late st Contact Info) Description 10/08/2016 Scanned History [facility] [address] [place] [address] [facility], Provider [place] MRI SAFETY AND HEALTH [...] on filedocumented in this encounter Care Teams Diet Aide Relationship Specialty Start Date End Date Gael Damico MD [address] [place] [address] PCP - General Family Practice 08/01/22 documented as of this encounter
--- OUTSIDE RECORDS SUMMARY | 2024-07-19 22:28 | XMS_ITS | Encounter Summary ---
Author Organization [facility] Address [address] [address] Care Team Providers Care Bottle Caser Name Role Phone Gael Damico MD Primary Care Provider [phone] Encounter Details Date Type Department Care Team (Late st Contact Info) Description 06/18/2007 Consent for Procedure/Treatme nt [facility] [address] [place] [address] Mark Boyd MD [address] [place] [address] CONSENT FOR PROCEDURE Social History Tobacco Use [...] * Mark Boyd - 06/18/2007 12:00 AM MACHINE FARMWORKER INE FARMWORKER documented in this encounter Plan of Treatment Not on file documented as of this encounter Visit Diagnoses Not on filedocumented in this encounter Care Teams Bottle Caser Relationship Specialty Start Date End Date Gael Damico MD [address] [place] [address] PCP - General Family Practice 08/01/22 documented as of this encounter
--- OUTSIDE RECORDS SUMMARY | 2024-07-19 22:28 | XMS_ITS | Encounter Summary ---
Author Organization [employer] Address [address] [address] Care Team Providers Care Card Scraper Name Role Phone Gael Damico MD Primary Care Provider Encounter Details Date Type Department Care Team (Late st Contact Info) Description 09/16/2017 Scanned History External to Transferred Record, Provider [facility] Social History Tobacco Use Types Packs/Day Years [...] on filedocumented in this encounter Care Teams Card Scraper Relationship Specialty Start Date End Date Gael Damico MD [address] [place] [address] PCP - General Family Practice 08/01/22 documented as of this encounter
--- OUTSIDE RECORDS SUMMARY | 2024-07-19 22:28 | XMS_ITS | Clinical Summary ---
Author Organization [facility] Address [address] [address] Phone Care Team Providers Care Supervisor Histology Name Role Phone Gael Damico MD Primary Care Provider [phone] Camron Ohara MD Unavailable [phone] Allergies Active Allergy Reactions Criticality Noted Date [...] (Standing Order) 1954 TETANUS (Standing Order) 1954 Pneumococcal Vaccine: 50+ yr s (Standing Order) (1 of 1 - PCV) 1985 Shingrix (Zoster recombinant ) vaccine (Standing Order) [...] topic Insurance [employer] Care Teams Supervisor Histology Relationship Specialty Start Date End Date Gael Damico MD [facility] [address] [place] [address] PCP - General Family Medicine 11/14/23 Camron Ohara MD [address] [place] [address] Podiatry 11/14/23
--- OUTSIDE RECORDS SUMMARY | 2024-07-19 22:28 | XMS_ITS | Encounter Summary ---
Author Organization [facility] Address [address] [place] [address] Care Team Providers Care Multiple Spindle Router Operator Name Role Phone Gael Damico MD Primary Care Provider Encounter Details Date Type Department Care Team (Late st Contact Info) Description 08/08/2019 Correspondence [facility] Urology [address] [place] [address] Waqas Rodney MD [address] [place] [address] [facility] WRITTEN ORDER Social History Tobacco [...] on filedocumented in this encounter Care Teams Multiple Spindle Router Operator Relationship Specialty Start Date End Date Gael Damico MD [address] [address] PCP - General Family Practice 08/01/22 documented as of this encounter
--- OUTSIDE RECORDS SUMMARY | 2024-07-19 22:28 | XMS_ITS | Encounter Summary ---
Author Organization [employer] Address [address], [place] [address] Care Team Providers Care Grain I Farmworker Name Role Phone Gael Damico MD Primary Care Provider [phone] Encounter Details Date Type Department Care Team (Late st Contact Info) Description 01/05/2012 Consent for Procedure/Treatme nt [facility] [address] [place] [address] [facility], Provider [place] MRI SAFETY SCREENING [...] as of this encounter Progress Notes * [facility], Provider - 01/05/2012 12:00 AM CDT documented in this encounter Plan of Treatment Not on file documented as of this encounter Visit Diagnoses Not on filedocumented in this encounter Care Teams Grain I Farmworker Relationship Specialty Start Date End Date Gael Damico MD [address] [place] [address] PCP - General Family Practice 08/01/22 documented as of this encounter
--- OUTSIDE RECORDS SUMMARY | 2024-07-19 22:28 | XMS_ITS | Encounter Summary ---
Author Organization [employer] Address [address] [address] Care Team Providers Care Salt Plant Operator Name Role Phone Gael Damico MD Primary Care Provider Encounter Details Date Type Department Care Team (Late st Contact Info) Description 03/25/2016 Correspondence Travel and Tropical Medicine [address] [facility] [place] [address] Wandy Goff PA-C [address] [place], [place] [id number] [facility] PAYMENT AGREEMENT WAIVER Social History [...] on filedocumented in this encounter Care Teams Salt Plant Operator Relationship Specialty Start Date End Date Gael Damico MD [address] [place] [address] PCP - General Family Practice 08/01/22 documented as of this encounter
--- OUTSIDE RECORDS SUMMARY | 2024-07-19 22:28 | XMS_ITS | Encounter Summary ---
Author Organization [employer] Address [address], [place] [address] Care Team Providers Care Director Microbiology Name Role Phone Gael Damico MD Primary Care Provider [phone] Encounter Details Date Type Department Care Team (Late st Contact Info) Description 01/07/2017 Consent for Procedure/Treatme [facility], Provider [facility] CONSENT FOR SURGERY OR [...] filedocumented in this encounter Care Teams Director Microbiology Relationship Specialty Start Date End Date Gael Damico MD [address] [place] [address] PCP - General Family Practice 08/01/22 documented as of this encounter
--- OUTSIDE RECORDS SUMMARY | 2024-07-19 22:28 | XMS_ITS | Encounter Summary ---
Author Organization [employer] Address [address], [place] [address] Care Team Providers Care Catalogue Maker Name Role Phone Gael Damico MD Primary Care Provider Encounter Details Date Type Department Care Team (Late st Contact Info) Description 10/28/2016 Consent for Procedure/Treatme [facility] Same Day Surgery [address] [place] [address] [facility], Provider [facility] INFORMED CONSENT Social History Tobacco [...] on filedocumented in this encounter Care Teams Catalogue Maker Relationship Specialty Start Date End Date Gael Damico MD [address] [place] [address] PCP - General Family Practice 08/01/22 documented as of this encounter
--- OUTSIDE RECORDS SUMMARY | 2024-07-19 22:29 | XMS_ITS | Clinical Summary ---
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 Not on file Not [...] COMPLETE WO CONTRAST Routine 04/20/2024 2:44 PM EXECUTIVE PERSONAL ASSISTANT Transient cerebral ischemic attack, unspecified from Last 3 Months Results * ECHO TTE COMPLETE WO CONTRAST (04/20/2024 2:44 PM EXECUTIVE PERSONAL ASSISTANT) AORTIC VALVE MEAN PG 6 mmHg EJECTION FRACTION 52 % PEAK TR VELOCITY 2.5 m/s LVEDD 3.7 cm Anatomical Region Laterality Modality Ultrasound 04/20/2024 2:26 PM EXECUTIVE PERSONAL ASSISTANT Narrative 04/20/2024 3:03 PM EXECUTIVE PERSONAL ASSISTANT ECHOCARDIOGRAM ZAID RUTLEDGE : 1935 89 years Study Date: 04/20/2024 2:26:21 PM Gender: M BP: 118/76 mmHg Height: 175.00 cm BSA: 2.32 m Weight: 119.00 kg Tech: NWA Referring MD: CARLOS KIDD Site: [facility] Reading Location: Mobile-[facility] [...] . This study was interpreted by an [facility] accredited facility. CC: [facility] (med [facility]) [facility]. Final Procedure Note Magui Phillips, Health system - 04/20/2024 ECHOCARDIOGRAM ZAID RUTLEDGE : 1935 89 years Study Date: 04/20/2024 2:26:21 PM Gender: M BP: 118/76 mmHg Height: 175.00 cm BSA: 2.32 m Weight: 119.00 kg Tech: CHRISTOPHER Referring MD: CARLOS KIDD Site: [facility] Reading Location: Mobile-[facility] [...] interpreted by an [facility] accredited facility. CC: [facility] (med records) [facility]. Final Carlos Kidd MD ECHO ORD Final Re sult from Last 3 Months Insurance MEDICARE PART B HB ONLY HP FREEDOM HB ONLY HP MEDICARE ADVANTAGE MR BER[place]O [id number] [address] [id number] Care Teams Engine Buildup Mechanic Relationship Specialty Start Date End Date Ramses Cleary PCP - General Family Practice 05/29/11
--- OUTSIDE RECORDS SUMMARY | 2024-07-19 22:29 | XMS_ITS | Encounter Summary ---
Author Organization [facility] Address [address] [address] Care Team Providers Care Retail Advisor Name Role Phone Gael Damico MD Primary Care Provider Encounter Details Date Type Department Care Team (Late st Contact Info) Description 07/23/2018 Correspondence [facility] Urology [address] [place] [address] Waqas Rodney MD [address] [place] [address] [facility] ORDER Social History Tobacco Use Types [...] on filedocumented in this encounter Care Teams Retail Advisor Relationship Specialty Start Date End Date Gael Damico MD [address] [place] [address] PCP - General Family Practice 08/01/22 documented as of this encounter
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
--- OUTSIDE RECORDS SUMMARY | 2024-07-19 22:29 | XMS_ITS | Encounter Summary ---
Author Organization [employer] Address [address] [address] Care Team Providers Care Disability Coordinator Name Role Phone Gael Damico MD Primary Care Provider Encounter Details Date Type Department Care Team (Late st Contact Info) Description 12/31/2006 Consent for Procedure/Treatme nt [facility] [address] [facility] [address] [facility] [place] [address] Mark Boyd MD [address] [place] [address] CONSENT FOR DIAGNOSTIC PROCEDURE Social History Tobacco [...] on filedocumented in this encounter Care Teams Disability Coordinator Relationship Specialty Start Date End Date Gael Damico MD [address] [place] [address] PCP - General Family Practice 08/01/22 documented as of this encounter
--- OUTSIDE RECORDS SUMMARY | 2024-07-19 22:29 | XMS_ITS | Encounter Summary ---
Author Organization [email or web address] Address [address] [place] [address] Care Team Providers Care Enterprise Resource Analyst Name Role Phone Gael Damico MD Primary Care Provider Reason for Visit * Reason Comments Refill Encounter Details Date Type Department Care Team (Late st Contact Info) Description 12/03/2017 Nurse Triage Careline [address] [place], [place] [address] Unassigned, Provider [address] [place] [address] Refill Social History Tobacco Use Types Packs/Day [...] Quinn RN - 12/03/2017 7:29 PM CDT Patient/customer care assistant request: Input needed Medication Specific Request: See [...] per unit policy Protocols used: MEDICATION QUESTION [id number] Plan: Pravastatin 30 day/no refills ordered per standing order and sent to [facility] patient/caller to call back CareLine if symptoms get worse or if you have any further questions or concerns. The CareLine is available 05/01. Lenka Quinn RN 12/03/2017, 7:58 PM * Mine Carroll - 12/03/2017 7:17 PM CDT Verified patient identity using three identifiers: Yes Caller's relationship to patient: Self At which care system or clinic is the patient normally seen? [facility] Medication Questions/New Med Request/ Side Effects [...] filedocumented in this encounter Care Teams Enterprise Resource Analyst Relationship Specialty Start Date End Date Gael Damico MD [address] [place] [address] PCP - General Family Practice 08/01/22 documented as of this encounter
--- OUTSIDE RECORDS SUMMARY | 2024-07-19 22:29 | XMS_ITS | Encounter Summary ---
Author Organization [facility] Address [address], [place] [address] Care Team Providers Care Engineering Drafter Name Role Phone Gael Damico MD Primary Care Provider [phone] Encounter Details Date Type Department Care Team (Late st Contact Info) Description 09/15/2017 Correspondence [facility] Urology [address] [place] [address] Waqas Rodney MD [address] [place] [address] [facility] UROLOGICAL RX Social History Tobacco Use [...] filedocumented in this encounter Care Teams Engineering Drafter Relationship Specialty Start Date End Date Gael Damico MD [address] [place] [address] PCP - General Family Practice 08/01/22 documented as of this encounter
--- OUTSIDE RECORDS SUMMARY | 2024-07-19 22:29 | XMS_ITS | Encounter Summary ---
Author Organization [employer] Address [address] [address] Care Team Providers Care Global Sales Director Name Role Phone Gael Damico MD Primary Care Provider [phone] Encounter Details Date Type Department Care Team (Late st Contact Info) Description 10/29/2015 Consent for Procedure/Treatme nt [facility] [address] [place] [address] [facility], Provider [facility] CONSENT Social [...] on filedocumented in this encounter Care Teams Global Sales Director Relationship Specialty Start Date End Date Gael Damico MD [address] [place] [address] PCP - General Family Practice 08/01/22 documented as of this encounter
[2024-07-19 22:33] VITALS: BP 171/89; PULSE 78; RESP 16; TEMP 36.6; O2SAT 98; BMI 35.0
--- NOTE | 2024-07-19 23:14 | ED.GENADULT ---
HPI - General Adult General Date Seen: 07/19/24 Chief complaint: Extremity Pain/Injury, Lower Stated complaint: Broken Foot Time Seen by Provider: 07/19/24 22:54 History of Present Illness HPI narrative: Patient is an 89-year-old male brought in by EMS for injury of his left great toe. He says he was getting up off the couch and stubbed his toe, sustained a laceration and the toe was bent kind of funny. He does say that he has broken this toe before but it does not usually look like this. He is not anticoagulated. No other injuries or complaints. Lives at home with his , uses a walker to get around. His called multiple times, with various additional concerns. She says that he cannot come home tonight. He is 89 years old, he was having difficulty breathing earlier, he lost lot of blood, he can not cath himself because of his injury, she can not take care of him because she is being treated with prednisone for post herpetic neuralgia. He tells me that he has asthma and he has had a bit of a cough, his asthma always flares when he has a cold. He used his inhaler and feels fine now. He has not had a fever. Has not otherwise been short of breath. No chest pain. Related Data Home Medications ?Medication ?Instructions ?Recorded ?Confirmed acetaminophen 500 mg tablet 1,000 mg PO BID PRN 06/20/22 06/19/24 (Tylenol Extra Strength) montelukast 10 mg tablet 10 mg PO QDAY 06/20/22 06/19/24 dorzolamide 22.3 mg-timolol 6.8 1 drp ophthalmic (eye) BID 07/22/22 06/19/24 mg/mL eye drops vit C 250 mg-vit E 200 unit-zinc 1 tab PO BID 12/26/22 06/19/24 12.5 mg-copper 1 [id number] tablet (ICaps AREDS2 (copper citrate)) guaifenesin [Mucinex] 1 tab PO QDAY 02/25/24 06/19/24 aspirin 81 mg tablet,delayed 81 mg PO DAILY 03/22/24 06/19/24 release furosemide 20 mg tablet 20 mg PO QAM 06/09/24 06/19/24 Previous Rx's ?Medication ?Instructions ?Recorded albuterol sulfate 90 mcg/actuation 2 puff inhalation Q4-6H PRN 06/13/22 aerosol inhaler shortness of breath or wheezing #8.5 grams ipratropium 0.5 mg-albuterol 3 mg 3 ml inhalation Q6H PRN wheezing 06/20/22 (2.5 mg base)/3 mL nebulization #90 mL soln nebulizers #1 ea 06/27/22 atorvastatin 40 mg tablet 40 mg PO QHS #90 tabs 03/22/24 allopurinol 100 mg tablet 100 mg PO QDAY #90 tabs 03/28/24 omeprazole 20 mg capsule,delayed 20 mg PO BID #180 caps 03/28/24 release pregabalin 100 mg capsule 100 mg PO BID #60 caps 06/09/24 cephalexin 500 mg capsule 500 mg PO BID #14 caps 06/19/24 Allergies Allergy/AdvReac Type Severity Reaction Status Date / Time acetaminophen (From Excedrin Allergy Severe Anaphylaxis Verified 06/19/24 12:09 Extra Strength) aspirin (From Excedrin Extra Allergy Severe Anaphylaxis Verified 06/19/24 12:09 Strength) banana Allergy Severe Anaphylaxis Verified 06/19/24 12:09 walnut Allergy Severe Anaphylaxis Verified 06/19/24 12:09 watermelon Allergy Severe Anaphylaxis Verified 06/19/24 12:09 levofloxacin (From Levaquin) Allergy Unknown Hamstring Verified 06/19/24 12:[address] [facility] Medical History TIA (transient ischemic attack) ?G45.9 - Transient cerebral ischemic attack, unspecified (ICD-10) Mixed hyperlipidemia ?E78.2 - Mixed hyperlipidemia (ICD-10) History of gout ?Z87.39 - Personal history of other diseases of the musculoskeletal system and connective tissue (ICD-10) Primary hypertension ?I10 - Essential (primary) hypertension (ICD-10) Primary open angle glaucoma (POAG) ?H40.1190 - Primary open-angle glaucoma, unspecified eye, stage unspecified (ICD-10) Age-related macular degeneration ?H35.30 - Unspecified macular degeneration (ICD-10) History of prostate cancer ?Z85.46 - Personal history of malignant neoplasm of prostate (ICD-10) Chronic cough ?R05.3 - Chronic cough (ICD-10) History of TIA (transient ischemic attack) (11/2021) ?Z86.73 - Personal history of transient ischemic attack (TIA), and cerebral infarction without residual deficits (ICD-10) 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 - Vertebro-basilar artery syndrome (ICD-10) Hemoptysis (10/2021) ?R04.2 - Hemoptysis (ICD-10) GERD (gastroesophageal reflux disease) ?K21.9 - Gastro-esophageal reflux disease without esophagitis (ICD-10) Surgical History History of repair of right rotator cuff ?Z98.890 - Other specified postprocedural states (ICD-10) History of tonsillectomy ?Z90.89 - Acquired absence of other organs (ICD-10) History of back surgery ?Z98.890 - Other specified postprocedural states (ICD-10) History of phacoemulsification of cataract of both eyes with intraocular lens implantation ?Z98.41 - Cataract extraction status, right eye (ICD-10) ?Z98.42 - Cataract extraction status, left eye (ICD-10) ?Z96.1 - Presence of intraocular lens (ICD-10) History of esophagogastroduodenoscopy (EGD) (01/21/22) ?Z98.890 - Other specified postprocedural states (ICD-10) History of basal cell carcinoma (BCC) (2005) ?Z85.828 - Personal history of other malignant neoplasm of skin (ICD-10) History of transurethral resection of prostate ?Z98.890 - Other specified postprocedural states (ICD-10) ?Z90.79 - Acquired absence of other genital organ(s) (ICD-10) History of bronchoscopy (01/28/22) ?Z98.890 - Other specified postprocedural states (ICD-10) History of total left knee replacement ?Z96.652 - Presence of left artificial knee joint (ICD-10) Family History Father Colon cancer Prostate cancer Coronary artery disease Social History 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: , 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, 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 What is your current living situation?: I presently have a place to live Problems where you live: no known problems In the past 12 months, utilities in danger of being shut off: no In past 12 months, lack of transportation kept you from medical appts, meetings, work, or getting things needed for daily living: no In the past 12 mos, have been you worried that your food would run out before you had money to buy more?: never true In the past 12 mos, the food you bought just didn't last and you didn't have money to buy more?: never true Smoking Status: Former smoker Do you use any of these nicotine containing products: None Second hand tobacco smoke exposure: No How often do you have a drink containing alcohol: 2-3 times a week AUDIT-C Alcohol total score: 3 Non-prescribed substance use: denies use How often does anyone, including family, friends and others, physically hurt you: never How often does anyone, including family, friends and others, insult or talk down to you: never How often does anyone, including family, friends and others, threaten you with harm: never How often does anyone, including family, friends and others, scream or curse at you: rarely Health Related Social Needs: Other personal risk factors, not elsewhere classified (Z91.89) Exam Narrative: Exam Narrative: Vital signs reviewed In general, alert, nontoxic elderly male. Breathing easily. Head: Normocephalic, atraumatic. Eyes: Sclera clear. Pupils equal and reactive. ENT: Mucous membranes moist. Neck: Supple without adenopathy. Heart: Regular rate and rhythm without murmur. Lungs: Clear. No increased work of breathing, crackles or wheezes. Abdomen: Soft, nontender to palpation. Extremities: On the right foot there is a 3 cm laceration that traverses from 1 side of the dorsal toe to the other crossing the eponychium. There was ongoing venous bleeding. Sensation intact. On arrival, the distal toe was oriented at 90? relative to the proximal toe. Neurologic: Alert, conversant. Speech fluent, face symmetric. Moves all extremities equally. Skin: Warm, dry well perfused. Affect: Normal. Const: Vital Signs, click to edit/add: Vital Signs - 24 hr 07/19/24 22:33 07/19/24 23:32 07/20/24 00:34 Temperature 97.9 F Pulse Rate Pulse Rate [Pulse Oximeter] 78 72 Respiratory Rate 16 20 20 Blood Pressure Blood Pressure [Ri ght Upper Arm] 171/89 H 167/85 H Pulse Oximetry 98 96 Oxygen Delivery Me thod Room Air Room Air 07/20/24 01:00 07/20/24 01:15 07/20/24 01:30 Temperature Pulse Rate 72 67 67 Pulse Rate [Pulse Oximeter] Respiratory Rate Blood Pressure Blood Pressure [Ri ght Upper Arm] Pulse Oximetry 95 96 95 Oxygen Delivery Me thod 07/20/24 01:45 07/20/24 02:00 07/20/24 03:00 Temperature Pulse Rate 76 68 61 Pulse Rate [Pulse Oximeter] Respiratory Rate 16 Blood Pressure Blood Pressure [Ri ght Upper Arm] Pulse Oximetry 96 95 94 Oxygen Delivery Nj thod 07/20/24 04:00 07/20/24 05:00 07/20/24 05:07 Temperature Pulse Rate 65 67 Pulse Rate [Pulse Oximeter] Respiratory Rate 16 Blood Pressure Blood Pressure [Ri ght Upper Arm] Pulse Oximetry 92 94 95 Oxygen Delivery Me thod 07/20/24 06:55 07/20/24 07:23 Temperature 97.9 F Pulse Rate 68 Pulse Rate [Pulse Oximeter] 79 Respiratory Rate 16 16 Blood Pressure 131/87 Blood Pressure [Ri ght Upper Arm] 154/74 H Pulse Oximetry 95 96 Oxygen Delivery Nj thod Room Air Room Air Course Course ED Course: Following initial evaluation, I did a digital block using initially 5 mL of lidocaine without epinephrine and then an additional 3 mL due to incomplete anesthesia. He had x-rays of the toe, which are somewhat difficult to interpret, radiology read them as not showing any bony findings such as fracture dislocation. I disagree with this I think there is a dislocation of the IP joint of the 1st toe. Difficult to assess for fracture. Radiology questioned a cutaneous ulcer, which he does not have. Following x-rays, I did reduce the toe so that it is straight. Repeat x-rays I think show improved alignment of the joint. Radiology again notes no fracture or malalignment on the initial read and then questions a possible fracture through the distal phalanx on an addendum. The laceration was cleaned with normal saline and then closed using 5 0 nylon. A total of 5 simple interrupted sutures were placed. He tolerated this well, bleeding is controlled. We annie-taped and dressed the toes and will use a hard-soled shoe to protect the toe so that he does not hit it again and also to stabilize the toe in case he did have a dislocation there. He will need prophylactic antibiotics given the possible fracture. wanted him evaluated for pneumonia so a chest x-ray is ordered. They were concerned about blood loss so I have ordered a hemoglobin. He does not have any respiratory complaints or symptoms right now. His oxygen saturation is 98% on room air, respiratory rate is normal. He is hypertensive, not tachycardic. He is well-appearing. He was able to self cath here prior to any treatment of his toe. Chest x-ray is stable compared to previous. There is no infiltrate. Hemoglobin is pending at this time. He was ambulatory around the emergency department without difficulty with his walker. He feels stable and able to manage. His is adamant that he cannot come home tonight. He does not meet any kind of criteria for admission to the hospital, as I have explained to her multiple times. However, because she is refusing to take him home, we will keep him in the ER overnight. She says that tomorrow there will be someone else who can help him at home. Vital Signs Vital signs: Initial Vital Signs Temperature 97.9 F 07/19/24 22:33 Temperature Source Temporal Artery Scan 07/19/24 22:33 Pulse Rate 78 07/19/24 22:33 Respiratory Rate 16 07/19/24 22:33 Blood Pressure 171/89 H 07/19/24 22:33 Blood Pressure Mean 116 H 07/19/24 22:33 Blood Pressure Position Sitting 07/19/24 22:33 Pulse Oximetry 98 07/19/24 22:33 Oxygen Delivery Method Room Air 07/19/24 22:33 Vital Signs Temperature 97.9 F 07/19/24 22:33 Pulse Rate 78 07/19/24 22:33 Respiratory Rate 16 07/19/24 22:33 Blood Pressure 171/89 H 07/19/24 22:33 Pulse Oximetry 98 07/19/24 22:33 Oxygen Delivery Method Room Air 07/19/24 22:33 Temperature 97.9 F 07/20/24 06:55 Pulse Rate 68 07/20/24 07:23 Respiratory Rate 16 07/20/24 07:23 Blood Pressure 131/87 07/20/24 07:23 Pulse Oximetry 96 07/20/24 07:23 Oxygen Delivery Method Room Air 07/20/24 07:23 Medications Administered Medications: Discontinued Medications Generic Name Dose Route Start Last Admin Trade Name Landenq PRN Reason Stop Dose Admin Cephalexin HCl 500 mg 07/20/24 00:51 07/20/24 00:58 Cephalexin 500 Mg Capsule PO 07/20/24 00:52 500 mg ONCE ONE Administration Lidocaine/Epinephrine 6 ml 07/20/24 01:02 07/20/24 01:05 Lidocaine 1%-Epi 1:100,000 INFILTRATI 07/20/24 01:03 6 ml ONCE ONE Administration Medical Decision Making Lab Data Labs: Lab Results 07/20/24 Range/Units 00:25 WBC 7.60 (4.50-11.00) K/uL RBC 4.41 (4.30-5.90) m/uL Hgb 11.9 L (13.5-17.5) gm/dL Hct 37.9 (37.0-53.0) % MCV 86 (80-100) fL MCH 27 (26-34) pg MCHC 31 L (32-36) gm/dL RDW Coeff of Cricket 15.2 (11.5-15.5) % Plt Count 177 (140-440) K/uL Neut % (Auto) 50.9 (42.0-72.0) % Lymph % (Auto) 33.8 (20-44) % Dougherty % (Auto) 10.7 (0.0-11.0) % Eos % (Auto) 4.3 (0.0-7.0) % Baso % (Auto) 0.3 (0.0-3.0) % Neut # (Auto) 3.87 (1.7-7.0) K/uL Lymph # (Auto) 2.57 (0.90-2.90) K/uL Dougherty # (Auto) 0.80 (0.00-0.90) K/UL Eos # (Auto) 0.33 (0.00-0.50) K/uL Baso # (Auto) 0.02 (0.00-0.30) K/uL Abs Immat Gran (auto) 0.00 (0.00-0.30) K/uL Imm/Tot Granulo (auto) 0.0 % Imaging Data Chest x-ray: Attestation: I have reviewed the pertinent imaging results. Radiologist's impression: Ordering Physician: Mala Stapleton M.D. Date of Service: 07/20/24 Procedure(s): XR chest 1V portable Accession Number(s): [id number] cc: Mala Stapleton M.D.; Gael Damico M.D.~ For Patients: As a result of the Cures Act, medical imaging exams and procedure reports are released immediately into your electronic medical record. You may view this report before your referring provider. If you have questions, please contact your health care provider. Indication: Shortness of breath, cough Technique: Single view of the chest Comparison: Chest CT performed 01/18/2022 Findings/Impression: Heart failure and mild volume overload. Unchanged scattered calcified granulomata. Dictated by Esau Marie MD @ 07/20/2024 12:38:51 AM toe xray: Attestation: I have reviewed the pertinent imaging results. Radiologist's impression: Patient: Zaid Rutledge MR#: [id number] : 1935 Acct:[id number] Loc: ED Service Date: 07/19/[address]: Ordering Physician: Mala Stapleton M.D. Date of Service: 07/19/24 Procedure(s): XR great toe LT Accession Number(s): [id number] cc: Mala Stapleton M.D.; Gael Damico M.D.~ ADDENDUM Indication: Trauma. Dislocation. Technique: Three views of the left great toe. Comparison: Left great toe radiographs earlier same day 07/19/2024. Findings/Impression: No acute fracture or dislocation. The joints of the 1st digit are in anatomic alignment. LisFranc alignment preserved. As noted on prior radiograph, there is questionable soft tissue ulceration along the plantar surface underlying the 1st MTP joint, for which clinical correlation is recommended. No definite radiographic evidence of associated osteomyelitis is present, however further characterization with MRI can be pursued as clinically warranted. Dictated by Tesfaye Nguyen MD @ 07/19/2024 11:59:45 PM ----- ADDENDUM ----- Addendum: In addition to findings described in the original report, there is questionable nondisplaced fracture of the 1st distal phalangeal base/proximal shaft. Dictated by Tesfaye Nguyen MD @ Jul 20 2024 12:01AM (Electronically Signed) For Patients: As a result of the Cures Act, medical imaging exams and procedure reports are released immediately into your electronic medical record. You may view this report before your referring provider. If you have questions, please contact your health care provider. Indication: Trauma. Dislocation. Technique: Three views of the left great toe. Comparison: Left great toe radiographs earlier same day 07/19/2024. Findings/Impression: No acute fracture or dislocation. The joints of the 1st digit are in anatomic alignment. LisFranc alignment preserved. As noted on prior radiograph, there is questionable soft tissue ulceration along the plantar surface underlying the 1st MTP joint, for which clinical correlation is recommended. No definite radiographic evidence of associated osteomyelitis is present, however further characterization with MRI can be pursued as clinically warranted. Dictated by Tesfaye Nguyen MD @ 07/19/2024 11:59:45 PM Patient: Zaid Rutledge MR#: [id number] : 1935 Acct:[id number] Loc: ED Service Date: 07/19/[address]: Ordering Physician: Mala Stapleton M.D. Date of Service: 07/19/24 Procedure(s): XR great toe LT Accession Number(s): [id number] cc: Mala Stapleton M.D.; Gael Damico M.D.~ ADDENDUM Indication: Trauma. Dislocation. Technique: Three views of the left great toe. Comparison: Left great toe radiographs earlier same day 07/19/2024. Findings/Impression: No acute fracture or dislocation. The joints of the 1st digit are in anatomic alignment. LisFranc alignment preserved. As noted on prior radiograph, there is questionable soft tissue ulceration along the plantar surface underlying the 1st MTP joint, for which clinical correlation is recommended. No definite radiographic evidence of associated osteomyelitis is present, however further characterization with MRI can be pursued as clinically warranted. Dictated by Tesfaye Nguyen MD @ 07/19/2024 11:59:45 PM ----- ADDENDUM ----- Addendum: In addition to findings described in the original report, there is questionable nondisplaced fracture of the 1st distal phalangeal base/proximal shaft. Dictated by Tesfaye Nguyen MD @ Jul 20 2024 12:01AM (Electronically Signed) For Patients: As a result of the Cures Act, medical imaging exams and procedure reports are released immediately into your electronic medical record. You may view this report before your referring provider. If you have questions, please contact your health care provider. Indication: Trauma. Dislocation. Technique: Three views of the left great toe. Comparison: Left great toe radiographs earlier same day 07/19/2024. Findings/Impression: No acute fracture or dislocation. The joints of the 1st digit are in anatomic alignment. LisFranc alignment preserved. As noted on prior radiograph, there is questionable soft tissue ulceration along the plantar surface underlying the 1st MTP joint, for which clinical correlation is recommended. No definite radiographic evidence of associated osteomyelitis is present, however further characterization with MRI can be pursued as clinically warranted. Dictated by Tesfaye Nguyen MD @ 07/19/2024 11:59:45 PM Discharge Plan Discharge Clinical Impression: Injury of left great toe Patient Disposition: Home, Self-Care Condition: Improved Instructions: Laceration (ED) Additional Instructions: Take the Keflex as prescribed. Keep toes annie-taped and use hard sole shoe. You can use Tylenol if needed for pain. Follow-up with orthopedics for recheck next week.[phone]. It is unclear on your x-rays whether you have a fracture through your big toe or not. This can be rechecked next week. Prescriptions: No Action furosemide 20 mg tablet 20 mg PO QAM pregabalin 100 mg capsule 100 mg PO BID Qty: 60 1RF albuterol sulfate 90 mcg/actuation HFA aerosol inhaler 2 puff inhalation Q4-6H PRN (Reason: shortness of breath or wheezing) Qty: 8.5 0RF montelukast 10 mg tablet 10 mg PO QDAY Patient Comments: TAKE 1 TABLET BY MOUTH EVERY DAY dorzolamide-timolol 22.3-6.8 mg/mL drops 1 drp ophthalmic (eye) BID Patient Comments: INSTILL 1 DROP IN BOTH EYES THREE TIMES DAILY guaifenesin [Mucinex] 1 tab PO QDAY acetaminophen [Tylenol Extra Strength] 500 mg tablet 1,000 mg PO BID PRN ipratropium-albuterol 0.5 mg-3 mg(2.5 mg base)/3 mL solution for nebulization 3 ml inhalation Q6H PRN (Reason: wheezing) Qty: 90 2RF ICaps AREDS2 (copper citrate) 250 mg-200 unit -12.5 mg-1 mg tablet 1 tab PO BID aspirin 81 mg tablet,delayed release (DR/EC) 81 mg PO DAILY atorvastatin 40 mg tablet 40 mg PO QHS Qty: 90 1RF cephalexin 500 mg capsule 500 mg PO BID Qty: 14 0RF (DME) nebulizers Misc See Rx Instructions .Route Qty: 1 0RF Rx Instructions: As directed allopurinol 100 mg tablet 100 mg PO QDAY Qty: 90 1RF omeprazole 20 mg capsule,delayed release(DR/EC) 20 mg PO BID Qty: 180 1RF Follow Up/Referrals: Gael Damico MD [Primary Care Provider] - Stand Alone Forms: stylemarks Info Instructions
--- OUTSIDE RECORDS SUMMARY | 2024-07-19 23:31 | XMS_ITS | Encounter Summary ---
Author Organization [employer] Address [address], [place] [address] Care Team Providers Care Certified Prosthetist Name Role Phone Gael Damico MD Primary Care Provider [phone] Encounter Details Date Type Department Care Team (Late st Contact Info) Description 01/07/2017 Consent for Procedure/Treatme [facility], Provider [facility] CONSENT FOR SURGERY OR [...] filedocumented in this encounter Care Teams Certified Prosthetist Relationship Specialty Start Date End Date Gael Damico MD [address] [place] [address] PCP - General Family Practice 08/01/22 documented as of this encounter
--- OUTSIDE RECORDS SUMMARY | 2024-07-19 23:31 | XMS_ITS | Encounter Summary ---
Author Organization [facility] Address [address] [address] Care Team Providers Care Creative Perfumer Name Role Phone Gael Damico MD Primary Care Provider Encounter Details Date Type Department Care Team (Late st Contact Info) Description 06/18/2007 Consent for Procedure[facility]me [facility] [address] [facility] [address] 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
--- OUTSIDE RECORDS SUMMARY | 2024-07-19 23:31 | XMS_ITS | Encounter Summary ---
Author Organization [facility] Address [address] [address] Care Team Providers Care Curbing Stonecutter Name Role Phone Gael Damico MD Primary Care Provider Encounter Details Date Type Department Care Team (Late st Contact Info) Description 09/15/2017 Correspondence [facility] [address] [place] [address] Waqas Rodney MD [address] [place] [address] [facility] Social History Tobacco Use [...] on filedocumented in this encounter Care Teams Curbing Stonecutter Relationship Specialty Start Date End Date Gael Damico MD [address] [place] [address] PCP - General Family Practice 08/01/22 documented as of this encounter
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
--- OUTSIDE RECORDS SUMMARY | 2024-07-19 23:31 | XMS_ITS | Encounter Summary ---
Author Organization [employer] Address [address] [address] Care Team Providers Care Behavioral Therapy Coordinator Name Role Phone Gael Damico MD Primary Care Provider Encounter Details Date Type Department Care Team (Late st Contact Info) Description 12/31/2006 Consent for Procedure/Treatme nt [facility] [address] [place] [address] Mark Boyd MD [address] [place] [address] CONSENT FOR DIAGNOSTIC PROCEDURE Social History Tobacco [...] filedocumented in this encounter Care Teams Behavioral Therapy Coordinator Relationship Specialty Start Date End Date Gael Damico MD [address] [place] [address] PCP - General Family Practice 08/01/22 documented as of this encounter
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
--- OUTSIDE RECORDS SUMMARY | 2024-07-19 23:31 | XMS_ITS | Encounter Summary ---
Author Organization [employer] Address [address] [address] Care Team Providers Care Area Operations Manager Name Role Phone Gael Damico MD Primary Care Provider Encounter Details Date Type Department Care Team (Late st Contact Info) Description 10/28/2016 Scanned History [facility] Imaging [address] [place] [address] [facility], Provider LV MRI SAFETY AND HEALTH [...] on filedocumented in this encounter Care Teams Area Operations Manager Relationship Specialty Start Date End Date Gael Damico MD [address] [place] [address] PCP - General Family Practice 08/01/22 documented as of this encounter
--- OUTSIDE RECORDS SUMMARY | 2024-07-19 23:31 | XMS_ITS | Encounter Summary ---
Author Organization [employer] Address [address], [place] [address] Care Team Providers Care Teacher Vocal Name Role Phone Gael Damico MD Primary Care Provider Encounter Details Date Type Department Care Team (Late st Contact Info) Description 01/05/2012 Consent for Procedure/Treatme nt [facility] [address] [place] [address] [facility], Provider LV MRI SAFETY SCREENING CONSENT [...] as of this encounter Progress Notes * [facility], Provider - 01/05/2012 12:00 AM CDT documented in this encounter Plan of Treatment Not on file documented as of this encounter Visit Diagnoses Not on filedocumented in this encounter Care Teams Teacher Vocal Relationship Specialty Start Date End Date Gael Damico MD [address] [place] [address] PCP - General Family Practice 08/01/22 documented as of this encounter
--- OUTSIDE RECORDS SUMMARY | 2024-07-19 23:31 | XMS_ITS | Encounter Summary ---
Author Organization [facility] Address [address] [place] [address] Care Team Providers Care Hvac R Instructor Name Role Phone Gael Damico MD Primary Care Provider Encounter Details Date Type Department Care Team (Late st Contact Info) Description 08/08/2019 Correspondence [facility] Urology [address] [place] [address] Waqas Rodney MD [address] [place] [address] [facility] MEDICAL WRITTEN ORDER Social History Tobacco [...] on filedocumented in this encounter Care Teams Hvac R Instructor Relationship Specialty Start Date End Date Gael Damico MD [address] [address] PCP - General Family Practice 08/01/22 documented as of this encounter
--- OUTSIDE RECORDS SUMMARY | 2024-07-19 23:31 | XMS_ITS | Clinical Summary ---
Author Organization [facility] [employer] [facility] Address [address] [address] Phone Care Team Providers Care Loan Manager Name Role Phone Gael Damico MD Primary Care Provider Camron Ohara MD Unavailable [phone] Allergies Active Allergy Reactions Criticality Noted Date [...] topic Insurance [employer] Care Teams Loan Manager Relationship Specialty Start Date End Date Gael Damico MD [facility] [address] [place] [address] PCP - General Family Medicine 11/14/23 Camron Ohara MD [address] [place] [address] Podiatry 11/14/23
--- OUTSIDE RECORDS SUMMARY | 2024-07-19 23:31 | XMS_ITS | Encounter Summary ---
Author Organization [employer] Address [address] [address] Care Team Providers Care Ocean Biologist Name Role Phone Gale Damico MD Primary Care Provider Encounter Details Date Type Department Care Team (Late st Contact Info) Description 09/16/2017 Scanned History External to Transferred Record, Provider [facility] Social History Tobacco Use Types [...] on filedocumented in this encounter Care Teams Ocean Biologist Relationship Specialty Start Date End Date Gael Damico MD [address] [place] [address] PCP - General Family Practice 08/01/22 documented as of this encounter
--- OUTSIDE RECORDS SUMMARY | 2024-07-19 23:31 | XMS_ITS | Encounter Summary ---
Author Organization [employer] Address [address] [place] [address] Care Team Providers Care Civil Engineering Professor Name Role Phone Gael Damico MD Primary Care Provider Reason for Visit * Reason Comments Refill Encounter Details Date Type Department Care Team (Late st Contact Info) Description 12/03/2017 Nurse Triage Careline [address] [place], [place] [address] Unassigned, Provider [address] [place] [address] Refill Social History Tobacco Use Types Packs/Day [...] Quinn RN - 12/03/2017 7:29 PM CDT Patient/small animal caretaker request: Input needed Medication Specific Request: See [...] per unit policy Protocols used: MEDICATION QUESTION [id number] Plan: Pravastatin 30 day/no refills ordered per standing order and sent to [facility] patient/caller to call back CareLine if symptoms get worse or if you have any further questions or concerns. The CareLine is available 05/01. Lenka Quinn RN 12/03/2017, 7:58 PM * Mine Carroll - 12/03/2017 7:17 PM CDT Verified patient identity using three identifiers: Yes Caller's relationship to patient: Self At which care system or clinic is the patient normally seen? [facility] Medication Questions/New Med Request/ [...] on filedocumented in this encounter Care Teams Civil Engineering Professor Relationship Specialty Start Date End Date Gael Damico MD [address] [place] [address] PCP - General Family Practice 08/01/22 documented as of this encounter
--- OUTSIDE RECORDS SUMMARY | 2024-07-19 23:31 | XMS_ITS | Encounter Summary ---
Author Organization [employer] Address [address] [address] Care Team Providers Care Progressive Care Unit Registered Nurse Name Role Phone Gael Damico MD Primary Care Provider Encounter Details Date Type Department Care Team (Late st Contact Info) Description 10/08/2016 Scanned History [facility] [address] [place] [address] [facility], Provider LV MRI SAFETY AND HEALTH QUESTIONNAIRE [...] on filedocumented in this encounter Care Teams Progressive Care Unit Registered Nurse Relationship Specialty Start Date End Date Gael Damico MD [address] [place] [address] PCP - General Family Practice 08/01/22 documented as of this encounter
--- OUTSIDE RECORDS SUMMARY | 2024-07-19 23:31 | XMS_ITS | Encounter Summary ---
Author Organization [employer] Address [address] [address] Care Team Providers Care Seed Production Field Supervisor Name Role Phone Gael Damico MD Primary Care Provider Encounter Details Date Type Department Care Team (Late st Contact Info) Description 07/22/2013 Consent for Procedure/Treatme nt [facility] [address] [place] [address] [facility], Provider LV CONSENT FOR CONTRAST Social History [...] as of this encounter Progress Notes * [facility], Provider - 07/22/2013 12:00 AM CST INSTALLER documented in this encounter Plan of Treatment Not on file documented as of this encounter Visit Diagnoses Not on filedocumented in this encounter Care Teams Seed Production Field Supervisor Relationship Specialty Start Date End Date Gael Damico MD [address] [place] [address] PCP - General Family Practice 08/01/22 documented as of this encounter
--- OUTSIDE RECORDS SUMMARY | 2024-07-19 23:31 | XMS_ITS | Encounter Summary ---
Author Organization [employer] Address [address], [place] [address] Care Team Providers Care Target Trimmer Name Role Phone Gael Damico MD Primary Care Provider Encounter Details Date Type Department Care Team (Late st Contact Info) Description 08/04/2013 Consent for Procedure/Treatme nt Same Day Surgery [address] [place] [address] [facility], Provider [facility] INFORMED CONSENT Social History Tobacco Use Types [...] as of this encounter Progress Notes * [facility], Provider - 08/04/2013 12:00 AM CST . OPERATIONS MANAGER documented in this encounter Plan of Treatment Not on file documented as of this encounter Visit Diagnoses Not on filedocumented in this encounter Care Teams Target Trimmer Relationship Specialty Start Date End Date Gael Damico MD [address] [place] [address] PCP - General Family Practice 08/01/22 documented as of this encounter
--- OUTSIDE RECORDS SUMMARY | 2024-07-19 23:31 | XMS_ITS | Encounter Summary ---
Author Organization [employer] [employer] Address [address] [address] Care Team Providers Care Sample Book Maker Name Role Phone Gael Damico MD Primary Care Provider Encounter Details Date Type Department Care Team (Late st Contact Info) Description 03/25/2016 Correspondence [facility] [address] [facility] [place] [address] Wandy Goff PA-C [address] [place], [place] [id number] [facility] PAYMENT AGREEMENT WAIVER Social History [...] filedocumented in this encounter Care Teams Sample Book Maker Relationship Specialty Start Date End Date Gael Damico MD [address] [place] [address] PCP - General Family Practice 08/01/22 documented as of this encounter
--- OUTSIDE RECORDS SUMMARY | 2024-07-19 23:31 | XMS_ITS | Encounter Summary ---
Author Organization [employer] Address [address] [address] Care Team Providers Care Grain Combine Driver Name Role Phone Gael Damico MD Primary Care Provider Encounter Details Date Type Department Care Team (Late st Contact Info) Description 10/28/2016 Consent for Procedure/Treatme [facility] Same Day Surgery [address] [place] [address] [facility], Provider [facility] INFORMED CONSENT Social [...] filedocumented in this encounter Care Teams Grain Combine Driver Relationship Specialty Start Date End Date Gael Damico MD [address] [place] [address] PCP - General Family Practice 08/01/22 documented as of this encounter
[2024-07-19 23:32] VITALS: RESP 20
--- OUTSIDE RECORDS SUMMARY | 2024-07-19 23:32 | XMS_ITS | Encounter Summary ---
Author Organization [facility] Address [address] [address] Care Team Providers Care It Teacher Name Role Phone Gael Damico MD Primary Care Provider Encounter Details Date Type Department Care Team (Late st Contact Info) Description 07/23/2018 Correspondence [facility] Urology [address] [place] [address] Waqas Rodney MD [address] [place] [address] [facility] ORDER Social History Tobacco Use Types [...] filedocumented in this encounter Care Teams It Teacher Relationship Specialty Start Date End Date Gael Damico MD [address] [place] [address] PCP - General Family Practice 08/01/22 documented as of this encounter
--- OUTSIDE RECORDS SUMMARY | 2024-07-19 23:32 | XMS_ITS | Encounter Summary ---
Author Organization [employer] Address [address], [place] [address] Care Team Providers Care Rehabilitation Consultant Name Role Phone Gael Damico MD Primary Care Provider Encounter Details Date Type Department Care Team (Late st Contact Info) Description 10/29/2015 Consent for Procedure/Treatme nt [facility] Surg IP Svc [address] [place] [address] [facility], Provider [facility] INFORMED CONSENT Social History Tobacco Use [...] on filedocumented in this encounter Care Teams Rehabilitation Consultant Relationship Specialty Start Date End Date Gael Damico MD [address] [place] [address] PCP - General Family Practice 08/01/22 documented as of this encounter
--- OUTSIDE RECORDS SUMMARY | 2024-07-19 23:32 | XMS_ITS | Clinical Summary ---
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 Not on file Not [...] COMPLETE WO CONTRAST Routine 04/20/2024 2:44 PM RESPIRATORY THERAPIST ASSISTANT Transient cerebral ischemic attack, unspecified from Last 3 Months Results * ECHO TTE COMPLETE WO CONTRAST (04/20/2024 2:44 PM RESPIRATORY THERAPIST ASSISTANT) AORTIC VALVE MEAN PG 6 mmHg EJECTION FRACTION 52 % PEAK TR VELOCITY 2.5 m/s LVEDD 3.7 cm Anatomical Region Laterality Modality Ultrasound 04/20/2024 2:26 PM RESPIRATORY THERAPIST ASSISTANT Narrative 04/20/2024 3:03 PM RESPIRATORY THERAPIST ASSISTANT ECHOCARDIOGRAM ZAID RUTLEDGE : 1935 89 years Study Date: 04/20/2024 2:26:21 PM Gender: M BP: 118/76 mmHg Height: 175.00 cm BSA: 2.32 m Weight: 119.00 kg Tech: NWA Referring MD: CARLOS KIDD Site: [facility] Reading Location: Mobile-OP Patient [...] was interpreted by an [facility] accredited facility. CC: [facility] (med tonsil hospital) [facility]. Final Procedure Note Magui Phillips, [facility] - 04/20/2024 ECHOCARDIOGRAM ZAID RUTLEDGE : 1935 89 years Study Date: 04/20/2024 2:26:21 PM Gender: M BP: 118/76 mmHg Height: 175.00 cm BSA: 2.32 m Weight: 119.00 kg Tech: CHRISTOPHER Referring MD: CARLOS KIDD Site: [facility] Reading Location: Mobile-OP Patient [...] interpreted by an [facility] accredited facility. CC: [facility] (med records) [facility]. Final Carlos Kidd MD ECHO ORD Final Re sult from Last 3 Months Insurance MEDICARE PART B HB ONLY [place] HB ONLY [employer] MEDICARE ADVANTAGE [address] [id number] [address] [id number] Care Teams Pricer Relationship Specialty Start Date End Date Ramses Cleary PCP - General Family Practice 05/29/11
[2024-07-20] VITALS (12 sets, daily range): BP systolic 131–167; BP diastolic 74–87; PULSE 61–79; RESP 16–20; TEMP 36.6; O2SAT 92–96
[2024-07-20 00:42] LABS: Basophils Absolute Auto 0.02 K/uL (0.00-0.30); Basophils Percent Auto 0.3 % (0.0-3.0); Eosinophils Absolute Auto 0.33 K/uL (0.00-0.50); Eosinophils Percent Auto 4.3 % (0.0-7.0); Hematocrit 37.9 % (37.0-53.0); Hemoglobin* 11.9 gm/dL (13.5-17.5); Lymphocytes Absolute Auto 2.57 K/uL (0.90-2.90); Lymphocytes Percent Auto 33.8 % (20-44); Mean Corpuscular HGB Conc 31 gm/dL (32-36); Mean Corpuscular Hemoglobin 27 pg (26-34); Mean Corpuscular Volume 86 fL (80-100); Monocytes Percent Auto 10.7 % (0.0-11.0); Neutrophils Absolute Auto 3.87 K/uL (1.7-7.0); Neutrophils Percent Auto 50.9 % (42.0-72.0); Platelet Count* 177 K/uL (140-440); RDW Coefficient of Variation % 15.2 % (11.5-15.5); Red Blood Count 4.41 m/uL (4.30-5.90)
[2024-07-20 00:46] LABS: Slide Review Reflex No
[2024-07-20] MEDS: cephALEXin 500 MG CAPSULE PO (00:58)
[2024-07-20] MEDS: LIDOCAINE 1%-EPI 1:100,000 6 ML INFILTRATI (01:05)
== END 2024-07-20 08:04 | disposition home or self-care (01) ==
PROVIDERS: Emergency Provider Emergency Medicine; PCP Family Medicine
DX: S93.112A Dislocation of interphalangeal joint of left great toe, initial encounter (principal); W22.8XXA Striking against or struck by other objects, initial encounter
CPT/HCPCS: 28660; 36415; 71045; 73660; 85025; 94761; 99284; A9270

== ENCOUNTER 2024-09-19 09:36 | Outpatient (CLI) | payer OTHER, SELFPAY ==
[2024-09-19 11:54] LABS: PSA Diagnostic* 7.72 ng/mL (0.10-4.00)
== END 2024-09-19 09:37 | disposition home or self-care (01) ==
LOC: NPINS 09:39
PROVIDERS: PCP Family Medicine; Visit Provider Urology
DX: C61 Malignant neoplasm of prostate (principal)
CPT/HCPCS: 84153